=== PATIENT | male | born 1950 | race Caucasian/White ===

== ENCOUNTER → 2018-03-26 07:06 | Outpatient (CLI) | payer MEDICARE, MEDICAID, SELFPAY ==
[2018-03-26 08:03] LABS: Hematocrit 43.1 % (40-54); Hemoglobin 14.7 g/dl (13.0-16.5); Mean Corp Hgb Conc 34.1 g/gl (32-36); Mean Corpuscular Hgb 36.2 pg (27.0-32.0); Mean Corpuscular Volume 106.2 fL (80-94); Mean Platelet Vol. 8.4 fl (6.2-12.0); Platelet Count 319 K/mm3 (150-450); RBC Distribution Width SD 49.4 fl (35.1-43.9); Red Blood Count 4.06 M/mm3 (4.6-6.2); White Blood Count 6.9 K/mm3 (4.4-11.0)
[2018-03-26 08:15] LABS: Scan Indicated on CBC? Y/N NO
[2018-03-26 08:23] LABS: Amphetamine Urine VISTA NEGATIVE (<1000 ng/mL); Barbiturate Urine VISTA NEGATIVE (< 200 ng/mL); Benzodiazepine Urine VISTA NEGATIVE (< 200 ng/mL); Cocaine Urine VISTA NEGATIVE (< 300 ng/mL); Ecstacy Urine VISTA NEGATIVE (< 500 ng/mL); Methadone Urine VISTA NEGATIVE (< 300 ng/mL); PCP Urine VISTA NEGATIVE (< 25 ng/mL); THC Urine VISTA NEGATIVE (< 50 ng/mL); Vista UDS pH Range 6
[2018-03-26 08:41] LABS: AST(SGOT) 22 U/L (15-37); Alanine Aminotransfer ALT/SGPT 35 U/L (16-61); Albumin, Serum 3.4 g/dL (3.2-5.0); Alkaline Phosphatase 78 U/L (45-117); Anion Gap 5 (5-15); BUN 8 mg/dL (7-18); BUN/Creat Ratio 9.3 RATIO (10-20); Calcium,Total 9.1 mg/dL (8.5-10.1); Chloride 103 mmol/L (98-107); Creatinine, Serum 0.86 mg/dL (0.70-1.30); EST Glomerular Filtration Rate 94 mL/min (>60); Est Glom Filt Rate - Afr Amer 113 mL/min (>60); Globulin 3.4 g/dL (2.2-4.2); Glucose 77 mg/dL (74-106); PSA,Total - Annual Screen 1.46 ng/mL (0.00-4.00); Potassium 4.3 mmol/L (3.5-5.1); Protein, Total 6.8 g/dL (6.4-8.2); Sodium Level 138 mmol/L (136-145)
== END ==
PROVIDERS: Family Provider Family Medicine; PCP Family Medicine; Visit Provider Family Medicine
DX: R63.4 Abnormal weight loss (principal); D50.9 Iron deficiency anemia, unspecified; Z12.5 Encounter for screening for malignant neoplasm of prostate
CPT/HCPCS: 36415; 80053; 80307; 84153; 85027; G0103

== ENCOUNTER → 2018-03-27 06:56 | Outpatient (CLI) | payer MEDICARE, MEDICAID, SELFPAY ==
[2018-03-27 09:40] LABS: Folates, (Folic Acid) > 100.00 ng/mL (3.1-55.4)
[2018-03-28 08:26] LABS: Vitamin B12 911 pg/mL (211-911)
== END ==
PROVIDERS: Family Provider Family Medicine; PCP Family Medicine; Visit Provider Family Medicine
DX: D53.9 Nutritional anemia, unspecified (principal)
CPT/HCPCS: 36415; 82607; 82746

== ENCOUNTER → 2018-12-25 06:08 | Outpatient (CLI) | payer MEDICARE, MEDICAID, SELFPAY ==
[2018-09-30 08:34] VITALS: BMI 24.3
[2018-12-25 08:14] LABS: ALB/GLOB Ratio 1.2 RATIO (0.9-2.4); AST(SGOT) 28 U/L (15-37); Alanine Aminotransfer ALT/SGPT 32 U/L (16-61); Alkaline Phosphatase 72 U/L (45-117); Anion Gap 4 (5-15); BUN 14 mg/dL (7-18); Calcium,Total 9.5 mg/dL (8.5-10.1); Chloride 103 mmol/L (98-107); Cholesterol 149 mg/dL (200); Creatinine, Serum 1.17 mg/dL (0.70-1.30); EST Glomerular Filtration Rate 66 mL/min (>60); Est Glom Filt Rate - Afr Amer 80 mL/min (>60); Globulin 3.3 g/dL (2.2-4.2); Glucose 89 mg/dL (74-106); High Density Lipoprotein 70 mg/dL; Potassium 4.7 mmol/L (3.5-5.1); Protein, Total 7.3 g/dL (6.4-8.2); Sodium Level 135 mmol/L (136-145); Triglycerides 59 mg/dL; Very Low Density Lipoprotein 12 mg/dL (5-40)
== END ==
PROVIDERS: Family Provider Family Medicine; PCP Family Medicine; Referring Provider Family Medicine; Visit Provider Family Medicine
DX: E78.5 Hyperlipidemia, unspecified (principal); R63.4 Abnormal weight loss
CPT/HCPCS: 36415; 80053; 80061

== ENCOUNTER → 2019-05-05 06:57 | Outpatient (CLI) | payer MEDICARE, MEDICAID, SELFPAY ==
[2019-04-28 15:43] VITALS: BMI 23.7
--- NOTE | 2019-05-05 07:11 | RAD_ITS ---
STUDY: X-RAY CHEST REASON FOR EXAM: Male, 68 years old. Chest pain/pressure TECHNIQUE: PA and lateral views of the chest. COMPARISON: None. FINDINGS: There are interstitial fibrotic changes of the lungs. There is no demonstrated pleural abnormality. Normal size heart. Normal mediastinum and francisco. Normal visualized pulmonary arteries. Normal visualized aortic arch and descending thoracic aorta. There are diffuse degenerative changes of the visualized thoracic spine. Normal visualized ribs, clavicles, and shoulders. There is no demonstrated abnormality of the visualized soft tissue structures of the upper abdomen. RAD/Chest PA and Lateral IMPRESSION: Chronic interstitial changes, no superimposed acute pulmonary process Electronically Signed: Rick Gilliam MD at 7:37 EDT , Service support ,
[2019-05-05 08:39] LABS: Absolute Lymphocyte Count 1.63 X10^3/uL (0.83-4.51); Absolute Neutrophil Count 2.9 X10^3/uL (2.0-7.7); Basophil# 0.06 X10^3/uL; Basophil% 1.1 % (0-1); Eosinophil# 0.45 X10^3/uL; Eosinophils% 8.1 % (0-5); Hematocrit 48.3 % (40-54); Hemoglobin 16.3 g/dL (13.0-16.5); Lymphocyte # 1.63 X10^3/ul (4.0); Lymphocyte % 29.3 % (19-41); Mean Corp Hgb Conc 33.7 g/dL (32-36); Mean Corpuscular Hgb 35.4 pg (27.0-32.0); Mean Corpuscular Volume 104.8 fL (80-94); Monocyte# 0.53 X10^3/uL; Monocyte% 9.5 % (0-10); NRBC Flagged by Analyzer 0 % (0-5); Neutrophil # 2.87 X10^3/uL (2.7-7.7); Neutrophil % 51.6 % (47-70); Platelet Count 273 K/mm3 (150-450); RBC Distribution Width CV 13.5 % (11.6-14.6); RBC Distribution Width SD 52.7 fl (35.1-43.9); Red Blood Count 4.61 M/mm3 (4.6-6.2); White Blood Count 5.6 K/mm3 (4.4-11.0)
[2019-05-05 09:14] LABS: ALB/GLOB Ratio 1.1 RATIO (0.9-2.4); AST(SGOT) 29 U/L (15-37); Alanine Aminotransfer ALT/SGPT 29 U/L (16-61); Albumin, Serum 3.9 g/dL (3.2-5.0); Alkaline Phosphatase 75 U/L (45-117); Anion Gap 7 (5-15); BUN 8 mg/dL (7-18); BUN/Creat Ratio 8.6 RATIO (10-20); Calcium,Total 9.6 mg/dL (8.5-10.1); Chloride 101 mmol/L (98-107); Creatinine, Serum 0.93 mg/dL (0.70-1.30); EST Glomerular Filtration Rate 86 mL/min (>60); Est Glom Filt Rate - Afr Amer 104 mL/min (>60); Globulin 3.6 g/dL (2.2-4.2); Glucose 69 mg/dL (74-106); PSA,Total - Annual Screen 1.31 ng/mL (0.00-4.00); Potassium 4.3 mmol/L (3.5-5.1); Protein, Total 7.5 g/dL (6.4-8.2); Sodium Level 138 mmol/L (136-145)
== END ==
PROVIDERS: Family Provider Family Medicine; PCP Family Medicine; Referring Provider Family Medicine; Visit Provider Family Medicine
DX: R63.4 Abnormal weight loss (principal); Z12.5 Encounter for screening for malignant neoplasm of prostate
CPT/HCPCS: 36415; 71046; 80053; 84153; 85025; G0103

== ENCOUNTER → 2019-05-30 11:28 | Outpatient (CLI) | payer MEDICARE, MEDICAID, SELFPAY ==
[2019-04-28 15:43] VITALS: BMI 23.7
[2019-06-01 10:02] LABS: Vitamin B12 811 pg/mL (211-911)
== END ==
PROVIDERS: Family Provider Family Medicine; PCP Family Medicine; Referring Provider Family Medicine; Visit Provider Family Medicine
DX: R63.4 Abnormal weight loss (principal)
CPT/HCPCS: 36415; 82607; 82746

== ENCOUNTER → 2019-10-29 07:44 | Outpatient (CLI) | payer MEDICARE, MEDICAID, SELFPAY ==
[2019-10-21 12:58] VITALS: BMI 23.7
--- NOTE | 2019-10-29 07:45 | ECHOD_ITS ---
Reason For Study: murmur Procedure This was a 2D Doppler, Color Flow transthoracic echocardiogram. Technically difficult due to body habitus. No parasternal window- used subcostal,. Exam performed in department. Left Ventricle Normal LV size. The estimated ejection fraction is 55 %. Diastolic function is indeterminate. No regional wall motion abnormalities noted. Right Ventricle Normal RV size. Normal systolic function. Atria The left atrium is mildly enlarged. Normal right atrium. No doppler evidence for ASD. Mitral Valve There is no mitral valve stenosis. Mild (1+) mitral valve insufficiency. Tricuspid Valve There is no tricuspid stenosis. Trivial tricuspid valve insufficiency. Pulmonary artery systolic pressure is 35 mmHg. Aortic Valve Trisinus/trileaflet aortic valve. There is no aortic stenosis. Trivial aortic valve insufficiency. Pulmonic Valve There is no pulmonic valvular stenosis. No pulmonic valve insufficiency. Great Vessels Normal aortic root. Pericardium/Pleural No pericardial effusion. MMode/2D Measurements & Calculations LVIDd: 4.1 cm IVSd: 0.87 cm Ao root diam: 3.8 cm LVIDs: 2.9 cm LVPWd: 0.88 cm RVDd: 3.8 cm FS: 29.9 % LAV(MOD-bp): 72.3 ml LA A4 area: 21.4 cm2 LA dimension(2D): 4.8 cm LAV(MOD-bp) Indexed: 36.8 ml/m2 LAV(MOD-sp2): 84.4 ml LAV(MOD-sp4): 62.8 ml RA A4 area: 18.5 cm2 Time Measurements MV dec time: 0.20 sec Doppler Measurements & Calculations MV E max tom: 62.6 cm/sec Lat Peak E' Tom: 6.6 cm/sec Med Peak E' Tom: 6.1 cm/sec MV A max tom: 47.8 cm/sec E/E' lat: 9.4 E/E' med: 10.3 MV E/A: 1.3 Ao V2 max: 106.3 cm/sec LV V1 max: 88.8 cm/sec TR max tom: 266.8 cm/sec Ao max P.5 mmHg LV V1 max P.2 mmHg TR max P.8 mmHg Interpretation Summary The estimated ejection fraction is 55 %. Diastolic function is indeterminate. Mild (1+) mitral valve insufficiency. Trivial tricuspid valve insufficiency. Trivial aortic valve insufficiency. Ordering Physician: Miguel Stewart Referring Physician: Miguel Stewart Performed By: Helena Rajan, [place], RVT
== END ==
PROVIDERS: PCP Family Medicine; Referring Provider Family Medicine; Visit Provider Family Medicine
DX: R01.1 Cardiac murmur, unspecified (principal)
CPT/HCPCS: 93306

== ENCOUNTER → 2020-01-20 | Outpatient (CLI) | payer MEDICARE, MEDICAID, SELFPAY ==
[2020-01-20 09:24] VITALS: BMI 22.2
[2020-01-20 13:32] LABS: Absolute Lymphocyte Count 1.43 X10^3/uL (0.83-4.51); Absolute Neutrophil Count 3.1 X10^3/uL (2.0-7.7); Basophil# 0.07 X10^3/uL; Basophil% 1.3 % (0-1); Eosinophil# 0.49 X10^3/uL; Eosinophils% 8.8 % (0-5); Hematocrit 43.6 % (40-54); Hemoglobin 14.5 g/dL (13.0-16.5); Lymphocyte # 1.43 X10^3/ul (4.0); Lymphocyte % 25.6 % (19-41); Mean Corp Hgb Conc 33.3 g/dL (32-36); Mean Corpuscular Hgb 34.9 pg (27.0-32.0); Mean Corpuscular Volume 105.1 fL (80-94); Mean Platelet Vol. 9.3 fl (6.2-12.0); NRBC Flagged by Analyzer 0 % (0-5); Neutrophil # 3.08 X10^3/uL (2.7-7.7); Neutrophil % 55.1 % (47-70); Platelet Count 268 K/mm3 (150-450); RBC Distribution Width CV 13.5 % (11.6-14.6); RBC Distribution Width SD 52.5 fl (35.1-43.9); Red Blood Count 4.15 M/mm3 (4.6-6.2); White Blood Count 5.6 K/mm3 (4.4-11.0)
[2020-01-20 13:48] LABS: ALB/GLOB Ratio 1.2 RATIO (0.9-2.4); AST(SGOT) 26 U/L (15-37); Alanine Aminotransfer ALT/SGPT 29 U/L (16-61); Albumin, Serum 4.2 g/dL (3.2-5.0); Alkaline Phosphatase 65 U/L (45-117); Anion Gap 2 (5-15); BUN 7 mg/dL (7-18); BUN/Creat Ratio 7.7 RATIO (10-20); Calcium,Total 9.6 mg/dL (8.5-10.1); Chloride 105 mmol/L (98-107); Creatinine, Serum 0.91 mg/dL (0.70-1.30); EST Glomerular Filtration Rate 88 mL/min (>60); Est Glom Filt Rate - Afr Amer 107 mL/min (>60); Globulin 3.5 g/dL (2.2-4.2); Glucose 83 mg/dL (74-106); Potassium 4.1 mmol/L (3.5-5.1); Protein, Total 7.7 g/dL (6.4-8.2); Sodium Level 135 mmol/L (136-145); T4 Free Direct 0.85 ng/dL (0.76-1.46)
== END | disposition home or self-care (01) ==
LOC: LABSPEC 13:07
PROVIDERS: PCP Family Medicine; Referring Provider Family Medicine; Visit Provider Family Medicine
DX: R63.4 Abnormal weight loss (principal); R01.1 Cardiac murmur, unspecified
CPT/HCPCS: 80053; 84439; 85025

== ENCOUNTER → 2020-05-06 17:34 | Outpatient (CLI) | payer MEDICARE, MEDICAID, SELFPAY ==
[2020-04-13 11:37] VITALS: BMI 23.7
== END ==
PROVIDERS: PCP Family Medicine; Referring Provider Family Medicine; Visit Provider Family Medicine
DX: R05 Cough (principal)
CPT/HCPCS: 87635; 94799; U0003

== ENCOUNTER → 2020-06-08 06:42 | Outpatient (CLI) | payer MEDICARE, MEDICAID, SELFPAY ==
[2020-06-02 15:13] VITALS: BMI 23.7
--- NOTE | 2020-06-08 06:43 | CT_ITS ---
STUDY: CT ABDOMEN AND PELVIS WITH CONTRAST REASON FOR EXAM: Male, 70 years old patient with 100 lb weight loss in two years. Patient is a smoker. RADIATION DOSAGE (If Supplied By Facility): CTDIvol = ( 9.96 ) mGy, DLP = ( 685.67 ) mGycm TECHNIQUE: Transaxial images were obtained from the dome of the diaphragm to the symphysis pubis without oral contrast. 100 mL of IV Isovue-300 was administered. Sagittal and coronal images were reconstructed. Individualized dose optimization techniques were used for this CT. COMPARISON: CT of the abdomen and pelvis dated 01/04/2017. FINDINGS: There is left lower lobe airspace consolidation with air bronchograms. This could represent pneumonia. The right lung base appears to be clear. The visualized portions of the heart are within normal limits. There is hepatomegaly with diffuse hepatic enlargement. Liver measures approximately 21.3 cm in greatest dimension. Small lucency is visible within the right lobe liver that may represent small cyst measuring approximately 10 mm in size. The gallbladder is very distended measuring approximately 9.6 cm in greatest dimension. Normal spleen. Normal pancreas. Normal bilateral adrenal glands. Normal right kidney. There is a large nonobstructing calculus lower pole left kidney measuring approximately 2 cm in greatest dimension. There is no evidence for hydronephrosis, hydroureter or radiopaque ureteral calculus. Normal visualized stomach. There is no evidence for dilated bowel, ascites or pneumoperitoneum. Small bowel has a grossly normal appearance. Stool is visible throughout the colon with scattered diverticula. The appendix is visualized and appears normal. There is diffuse atherosclerotic calcification of the abdominal aorta and iliac arteries with elongation and tortuosity, but without a demonstrated aneurysm. There is venous distention of the inferior vena cava (IVC). Normal retroperitoneum. Normal urinary bladder. There is enlargement of the prostate gland. Normal abdominal wall. There are degenerative changes of both hips. There are multilevel degenerative changes of the lumbar spine with disc space narrowing at L1-2, L2-3 and L3-4. There is multilevel degenerative arthropathy of the lumbar spine. There is mild curvature of lumbar spine with convexity towards the right. CT/Abdomen/Pelvis WITH Contrast IMPRESSION: 1. Hepatomegaly. 2. Distended gallbladder. 3. Nonobstructing left-sided renal calculus. 4. Extensive aortic and iliac atherosclerotic calcifications. 5. Left basilar airspace consolidation could be secondary to pneumonia. Suggest follow-up evaluation after treatment to exclude neoplasia. Electronically Signed: Tomasa Segura MD at 9:04 EDT , Service support ,
--- NOTE | 2020-06-08 06:43 | CT_ITS ---
STUDY: CT CHEST WITH CONTRAST REASON FOR EXAM: Male, 70 years old patient with 100 lb weight loss in two years. Patient is a smoker. RADIATION DOSAGE (If Supplied By Facility): CTDIvol = ( 9.96 ) mGy, DLP = ( 685.67 ) mGycm TECHNIQUE: Transaxial imaging was performed following intravenous administration of 100 mL of Isovue-300. Multiplanar coronal and sagittal images were reformatted. Individualized dose optimization techniques were used for this CT. COMPARISON: None. FINDINGS: There is hyperinflation of the lungs consistent with chronic obstructive lung disease (COPD). There is left lower lobe airspace consolidation with air bronchograms. Curvilinear opacity is visible in the lingula and right middle lobe suggesting pulmonary fibrosis. Curvilinear opacity is visible in the right lower lobe. There is no demonstrated pleural abnormality. The heart is normal in size. There is mild pericardial thickening measuring approximately 6.3 mm. There are calcifications of the coronary arteries. Normal mediastinum. Normal hilar regions. Normal enhanced pulmonary arteries. There is atherosclerotic calcification of the aortic arch with tortuosity and elongation of the aortic arch and descending thoracic aorta. There are no demonstrated pulmonary emboli. There are multi-level degenerative changes of the thoracic spine. There is no demonstrated abnormality of the visualized upper abdomen. CT/Chest WITH Contrast IMPRESSION: 1. Left lower lobe airspace consolidation and atelectasis could be secondary to pneumonia. Suggest follow-up imaging after treatment to exclude neoplasia. 2. Coronary artery and aortic atherosclerotic calcification. 3. COPD. Electronically Signed: Tomasa Segura MD at 9:51 EDT , Service support ,
[2020-06-08 07:00] LABS: CREATININE FINGERSTICK < 0.6 mg/dL (0.70-1.30)
== END ==
PROVIDERS: PCP Family Medicine; Referring Provider Surgery; Visit Provider Surgery
DX: R19.7 Diarrhea, unspecified (principal); R63.4 Abnormal weight loss; F17.200 Nicotine dependence, unspecified, uncomplicated
CPT/HCPCS: 71260; 74177; Q9967

== ENCOUNTER → 2020-10-20 09:01 | Outpatient (CLI) | payer MEDICARE, MEDICAID, SELFPAY ==
[2020-10-20 08:29] VITALS: BMI 23.8
[2020-10-20 10:03] LABS: Absolute Lymphocyte Count 1.28 X10^3/uL (0.83-4.51); Absolute Neutrophil Count 3.4 X10^3/uL (2.0-7.7); Basophil# 0.05 X10^3/uL; Basophil% 0.9 % (0-1); Eosinophil# 0.52 X10^3/uL; Eosinophils% 9.1 % (0-5); Hematocrit 46.6 % (40-54); Hemoglobin 15.2 g/dL (13.0-16.5); Lymphocyte # 1.28 X10^3/ul (4.0); Lymphocyte % 22.5 % (19-41); Mean Corp Hgb Conc 32.6 g/dL (32-36); Mean Corpuscular Hgb 34.1 pg (27.0-32.0); Mean Corpuscular Volume 104.5 fL (80-94); Mean Platelet Vol. 9.3 fl (6.2-12.0); Monocyte# 0.47 X10^3/uL; Monocyte% 8.3 % (0-10); NRBC Flagged by Analyzer 0 % (0-5); Neutrophil # 3.35 X10^3/uL (2.7-7.7); Neutrophil % 58.8 % (47-70); Platelet Count 242 K/mm3 (150-450); RBC Distribution Width SD 50.4 fl (35.1-43.9); Red Blood Count 4.46 M/mm3 (4.6-6.2); White Blood Count 5.7 K/mm3 (4.4-11.0)
[2020-10-20 10:43] LABS: Vitamin B12 1322 pg/mL (211-911)
== END ==
PROVIDERS: PCP Family Medicine; Referring Provider Family Medicine; Visit Provider Family Medicine
DX: R01.1 Cardiac murmur, unspecified (principal); D53.9 Nutritional anemia, unspecified
CPT/HCPCS: 36415; 82607; 82746; 85025

== ENCOUNTER → 2020-11-01 15:36 | Outpatient (CLI) | payer MEDICARE, MEDICAID, SELFPAY ==
[2020-10-20 08:29] VITALS: BMI 23.8
[2020-11-01 16:37] LABS: Platelet Count 221 K/mm3 (150-450); RET-HE 39.9 pg (30-35); Reticulocyte Count 1.22 % (0.5-1.5)
== END ==
PROVIDERS: PCP Family Medicine; Referring Provider Family Medicine; Visit Provider Family Medicine
DX: R01.1 Cardiac murmur, unspecified (principal)
CPT/HCPCS: 85045

== ENCOUNTER 2020-12-23 10:11 | Outpatient (RCR) | payer MEDICARE, SELFPAY ==
[2020-10-20 08:29] VITALS: BMI 23.8
[2020-12-23] MEDS: COVID-19 VACC, MRNA(PFIZER)/PF 30 MCG/0.3 ML SYRINGE IM (16:03)
[2021-01-13] MEDS: COVID-19 VACC, MRNA(PFIZER)/PF 30 MCG/0.3 ML SYRINGE IM (15:48)
== END 2021-03-21 23:59 ==
LOC: IMMUN 10:11
PROVIDERS: PCP Family Medicine; Visit Provider Family Medicine
DX: Z23 Encounter for immunization (principal)
CPT/HCPCS: 0001A; 0002A; 91300

== ENCOUNTER → 2021-04-04 11:57 | Outpatient (CLI) | payer MEDICARE, MEDICAID, SELFPAY ==
[2021-04-04 11:34] VITALS: BMI 23.6
[2021-04-04 14:52] LABS: Absolute Neutrophil Count 3.2 X10^3/uL (2.0-7.7); Basophil# 0.05 X10^3/uL; Basophil% 0.9 % (0-1); Eosinophil# 0.48 X10^3/uL; Eosinophils% 8.6 % (0-5); Hematocrit 42.4 % (40-54); Hemoglobin 13.9 g/dL (13.0-16.5); Lymphocyte % 25.1 % (19-41); Mean Corp Hgb Conc 32.8 g/dL (32-36); Mean Corpuscular Hgb 35.5 pg (27.0-32.0); Mean Corpuscular Volume 108.2 fL (80-94); Mean Platelet Vol. 9.1 fl (6.2-12.0); Monocyte# 0.46 X10^3/uL; Monocyte% 8.3 % (0-10); NRBC Flagged by Analyzer 0 % (0-5); Neutrophil # 3.16 X10^3/uL (2.7-7.7); Neutrophil % 56.7 % (47-70); Platelet Count 250 K/mm3 (150-450); RBC Distribution Width CV 12.8 % (11.6-14.6); RBC Distribution Width SD 51.2 fl (35.1-43.9); Red Blood Count 3.92 M/mm3 (4.6-6.2); White Blood Count 5.6 K/mm3 (4.4-11.0)
[2021-04-04 15:10] LABS: ALB/GLOB Ratio 1.1 RATIO (0.9-2.4); AST(SGOT) 29 U/L (15-37); Alanine Aminotransfer ALT/SGPT 34 U/L (16-61); Albumin, Serum 3.9 g/dL (3.2-5.0); Alkaline Phosphatase 73 U/L (45-117); Anion Gap 3 (5-15); BUN 11 mg/dL (7-18); BUN/Creat Ratio 11.6 RATIO (10-20); Calcium,Total 9.4 mg/dL (8.5-10.1); Chloride 102 mmol/L (98-107); Creatinine, Serum 0.94 mg/dL (0.70-1.30); EST Glomerular Filtration Rate 84 mL/min (>60); Est Glom Filt Rate - Afr Amer 101 mL/min (>60); Globulin 3.6 g/dL (2.2-4.2); Glucose 82 mg/dL (74-106); Potassium 4.3 mmol/L (3.5-5.1); Protein, Total 7.5 g/dL (6.4-8.2); Sodium Level 138 mmol/L (136-145)
== END ==
PROVIDERS: PCP Family Medicine; Referring Provider Family Medicine; Visit Provider Family Medicine
DX: G89.28 Other chronic postprocedural pain (principal); R63.4 Abnormal weight loss; I10 Essential (primary) hypertension
CPT/HCPCS: 36415; 80053; 85025

== ENCOUNTER 2021-04-23 14:02 | Emergency (ER) | payer MEDICARE, MEDICAID, SELFPAY ==
[2021-04-04 11:34] VITALS: BMI 23.6
[2021-04-23 14:03] VITALS: BP 101/57; PULSE 68; RESP 14; TEMP 36.4; O2SAT 96; BMI 22.4
--- NOTE | 2021-04-23 14:13 | CT_ITS ---
We are attempting to reach an attending provider to discuss findings. An addendum with communication details will be sent when the communication is complete. EXAM: CT CERVICAL SPINE WITHOUT INTRAVENOUS CONTRAST : 1950 CLINICAL INDICATION: fall, injury TECHNIQUE: Helically acquired images were obtained of the cervical spine without intravenous contrast. 2D reformatted images were reviewed. This CT exam was performed using one or more of the following dose reduction techniques: automated exposure control, adjustment of the mA and/or kV according to patient size, and/or use of iterative reconstruction technique. This report was created using [employer] report [employer] technology. COMPARISON: None. FINDINGS: VERTEBRAE: There are anterior osteophytes seen off of C5 and C6. No fracture. No traumatic subluxation. No discrete lytic or blastic abnormality. Normal alignment. Normal craniocervical junction and cervicothoracic junction. DISCS/SPINAL CANAL/NEURAL FORAMINA: There is disc space narrowing at C5 - 6 and C6-7. There is left bony neural foraminal narrowing at C5-6. SOFT TISSUES: There is a lucent line through the anterior osteophyte on the inferior aspect of C6 which may represent a tiny fracture. No other fractures are identified. This is best seen on series 602 images 30 and 31. There is no obvious edema or soft tissue swelling present. No prevertebral soft tissue swelling. LYMPH NODES: Unremarkable. No cervical adenopathy. LUNG APICES: Unremarkable as visualized. Clear. CT/Spine Cervical without Contras IMPRESSION: 1. Questionable fracture through a tiny anterior osteophyte off the anterior inferior aspect of C6. No other acute abnormalities are identified. 2. Multilevel degenerative change with disc space narrowing and bony neural foraminal narrowing. Individualized dose optimization techniques were used for this CT. at 1541 Reported and signed by: Braden Vasquez MD Electronically Signed: Braden Vasquez MD at 15:39 EDT Tel , Service support ,
--- NOTE | 2021-04-23 14:14 | EDS_ITS ---
HPI History of Present Illness Chief Complaint: Fall Detail of Chief Complaint: Patient presents with a fall that occurred 4 days ago. Informant: patient Narrative Narrative: Patient presents with complaint of neck pain after a fall 4 days ago. Patient states he was carrying a 2 x 10 into the garage when he lost his balance and fell backwards. Patient caught himself on his elbows and did not strike his head but he felt a crunch in his neck. He is complaining of neck pain with certain movements. Patient states he always has some paresthesias in his arms. At times he will will drop things in his hands. Patient denies any other injuries. When asked why he did not come in sooner he states that he had things to do. [facility] Medical History (Updated 04/23/21 @ 16:[address] Festus Jenkins DO) Arthritis Chronic pain GERD (gastroesophageal reflux disease) History of pneumonia History of stomach ulcers Hyperlipidemia Hypertension IBS (irritable bowel syndrome) Home Medications glucosamine-chondroitin 250 mg-200 mg tablet 2 tab PO QPC 12/27/17 [History Last Taken Unknown] ibuprofen 200 mg capsule 800 mg PO Q6H PRN PRN 12/27/17 [History Last Taken Unknown] multivitamin 1 tab PO QAM 12/27/17 [History Last Taken Unknown] azelastine 137 mcg (0.1 %) nasal spray aerosol 1 spray INTRANASAL BID #30 ml 07/15/19 [Rx Last Taken Unknown] pantoprazole 40 mg tablet,delayed release 40 mg PO QAM #90 tab 11/01/20 [Rx Last Taken Unknown] atenolol 50 mg tablet See Rx Instructions .ROUTE .COMPLEX #90 tablet 12/14/20 [Rx Last Taken Unknown] trazodone 100 mg tablet 100 mg PO QHS PRN #90 tab 12/14/20 [Rx Last Taken Unknown] albuterol sulfate 90 mcg/actuation aerosol inhaler 2 puff INHALATION Q6H #8.5 g 01/18/21 [Rx Last Taken Unknown] venlafaxine 150 mg capsule,extended release 24 hr 150 mg PO QHS #90 cap 02/15/21 [Rx Last Taken Unknown] cyclobenzaprine 5 mg tablet 5 mg PO TID #90 tab 03/07/21 [Rx Last Taken Unknown] pravastatin 40 mg tablet 40 mg PO QHS #90 tab 03/07/21 [Rx Last Taken Unknown] gabapentin 600 mg tablet 600 mg PO TID #90 tab 03/16/21 [Rx Last Taken Unknown] diphenoxylate-atropine [Lomotil] 1 tab PO TID PRN PRN 04/23/21 [History Last Taken Unknown] hydrocodone-acetaminophen 1 tab PO 4X/DAY 04/23/21 [History Last Taken Unknown] Allergy/AdvReac Type Severity Reaction Status Date / Time aspirin Allergy Severe bleeding Verified 04/23/21 14:05 Family History Mother Myocardial infarction, Onset Age: 49 Depression Father Hypertension CVA (cerebral vascular accident), Onset Age: 49 Sister Thyroid disorder Uncle ulcers Surgical History History of endoscopy Social History (Updated 04/04/21 @ 11:34 by Preethi Rizvi) Smoking Status: Unknown if ever smoked alcohol intake: never substance use type: does not use what type of physical activity do you participate in: other details: yard work, house work ROS ROS ED Constitutional Constitutional ED: Reports systems reviewed and no addt'l complaints, except as documented; Denies body ache(s), change in weight or chills Eyes Eyes: Denies acute decrease in peripheral vision, change in vision, double vision or loss of vision ENT ENT ED: Reports none; Denies ear pain, lip swelling, loss taste/smell, neck pain, otalgia or sore throat Cardiovascular Cardiovascular: Reports none; Denies abdominal pain, chest pain with activity, leg edema, lightheadedness, palpitations, rapid heart rate or syncope Respiratory/Chest Respiratory/Chest: Reports none; Denies change in mental status, dry cough, dyspnea, hemoptysis, shortness of breath at rest or shortness of breath with exertion Gastrointestinal Gastrointestinal: Reports none; Denies abdominal pain, change in stool character, diarrhea, hematemesis, hematochezia, melena, rectal bleeding or vomiting Genitourinary Genitourinary ED: Reports none; Denies abdominal discomfort, anuria, dysuria, genital pain or polyuria Musculoskeletal Musculoskeletal: Reports none and neck pain; Denies arthralgias, back pain, difficulty walking, extremity pain, muscle weakness or myalgias Integumentary Reports none; Denies abscess or rash Neurologic Neurologic: Reports none; Denies abnormal gait, confusion, focal weakness, frequent falls, headache(s), loss of vision, numbness, paresthesias, radicular pain, vertigo or weakness Psychiatric Psychiatric: Reports systems reviewed and no addt'l complaints, except as documented and none; Denies behavioral changes, confusion, difficulty concentrating, hallucinations, suicidal ideation, tactile hallucinations or visual hallucinations Endocrine Endocrinology: Denies none, cold intolerance, excessive sweating, fatigue or heat intolerance Hematologic/Lymphatic Hematologic/Lymphatic: Reports none; Denies anemia, easy bleeding or easy bruising Allergic/Immunologic Allergic/Immunologic ED: Denies as per HPI, none, lip swelling, mouth swelling, throat swelling, tongue swelling or hives EXAM Physical Exam Const Vital Signs: 04/23/21 14:03 04/23/21 14:38 Temperature 97.5 F L Temperature Source Temporal Pulse Rate 68 Respiratory Rate 14 Respiratory Effort Normal Respiratory Depth Normal Respiratory Pattern Normal Blood Pressure 101/57 L Blood Pressure Mean 71 Pulse Ox 96 Oxygen Delivery Method Room Air Room Air Positive well nourished and well developed General Appearance ED: well developed and NAD HEENT Reports TM's clear and moist mucous membranes normocephalic and atraumatic; Negative for trauma or tenderness Tympanic Membrane ED: Yes TM's clear Eyes PERRL and EOMs intact bilaterally General Eye ED: Negative for pale conjunctiva or scleral icterus Neck no lymphadenopathy, supple and no JVD Neck Narrative: Evaluation of his neck reveals some diffuse C-spine tenderness on palpation. There is no bony step-offs noted. Patient has some discomfort with range of motion of his neck. General: tenderness Chest Wall inspection of chest normal and palpation of chest normal Chest: Negative for tenderness Resp normal respiratory effort and clear to auscultation bilaterally Effort and Inspection: Negative for respiratory distress or pain with movement Auscultation: Negative for rhonchi, wheezes or diminished lung sounds Cardio regular rate, regular rhythm, S1 normal heart sound, S2 normal heart sound and no murmurs Peripheral Pulses: pulses 2+ throughout GI normal to inspection, nondistended, normoactive bowel sounds, soft to palpation, non-tender, non-distended and no masses Back/Spine no CVA tenderness Back/Spine Narrative: Patient has some diffuse tenderness over the upper thoracic spine no tenderness over lumbar spine. Extremity normal to inspection General Extremety ED: Negative for edema General Extremity: Negative for edema Neuro oriented x3, CN's II-XII intact bilaterally, no sensory deficits noted and gait normal Sensorium / Orientation: awake, alert, oriented to person, oriented to place and oriented to time Motor Exam: strength 5/5 throughout and strength abnormal Psych mental status grossly normal Skin no rashes or lesions noted and no wounds MDM MDM MDM Narrative Medical decision making narrative: Radiology called and they noted on patient CT that he may have a small fracture line through an anterior osteophyte at the base of C6 without any other evidence of fracture or malalignment. I discussed case with Dr. Hall who asked that I place patient in a soft collar and have him follow-up with his office. At this point we are unable to obtain MRI to evaluate further for ligamentous injury. Patient's injury was 4 days ago and he appears to stable otherwise I feel he can have the MRI done as an outpatient. Radiography Diagnostic Testing: Radiology Impression Cervical Spine CT 04/23/21 14:13 IMPRESSION: 1. Questionable fracture through a tiny anterior osteophyte off the anterior inferior aspect of C6. No other acute abnormalities are identified. 2. Multilevel degenerative change with disc space narrowing and bony neural foraminal narrowing. Individualized dose optimization techniques were used for this CT. at 1541 Reported and signed by: Braden Vasquez MD Electronically Signed: Braden Vasquez MD at 15:39 EDT Tel , Service support , ADDENDUM: 04/23/21 161 IMPRESSION: 1. Questionable fracture through a tiny anterior osteophyte off the anterior inferior aspect of C6. No other acute abnormalities are identified. 2. Multilevel degenerative change with disc space narrowing and bony neural foraminal narrowing. Individualized dose optimization techniques were used for this CT. at 1541 Reported and signed by: Braden Vasquez MD N.B. : The above Results were Read Back by Braden Vasquez MD to Festus Jenkins MD, and understanding confirmed on 04/23/2021 16:04:49 (ET). Electronically Signed: Braden Vasquez MD at 15:39 EDT Tel , Service support , Thoracic Spine X-Ray 04/23/21 14:27 IMPRESSION: No acute osseous abnormalities. There is multilevel degenerative change with disc space narrowing. at 1512 Reported and signed by: Braden Vasquez MD Electronically Signed: Braden Vasquez MD at 15:11 EDT Tel , Service support , Discharge Plan Triage Chief Complaint: Fall ED Provider: Festus Jenkins Dx/Rx/DC Orders Clinical Impression: C6 cervical fracture, Neck strain Instructions: Fx Neck Spine, ED Neck Sprain or Strain Prescriptions: No Action ibuprofen [Motrin IB] 200 mg capsule 800 mg PO Q6H PRN PRN (Reason: Pain) RF: 0 multivitamin tablet 1 tab PO QAM RF: 0 glucosamine-chondroitin 250 mg-200 mg tablet 250-200 mg tablet 2 tab PO QPC RF: 0 azelastine 137 mcg (0.1 %) aerosol,spray 1 spray INTRANASAL BID Qty: 30 RF: 2 Ventolin HFA 90 mcg/actuation HFA aerosol inhaler 2 puff INHALATION Q6H Qty: 8.5 RF: 2 cyclobenzaprine 5 mg tablet 5 mg PO TID Qty: 90 RF: 1 pravastatin 40 mg tablet 40 mg PO QHS Qty: 90 RF: 1 hydrocodone-acetaminophen 10-325 mg tablet 1 tab PO 4X/DAY RF: 0 diphenoxylate-atropine [Lomotil] 2.5-0.025 mg tablet 1 tab PO TID PRN PRN (Reason: Diarrhea) RF: 0 pantoprazole 40 mg tablet,delayed release (DR/EC) 40 mg PO QAM Qty: 90 RF: 1 atenolol 50 mg tablet See Rx Instructions .ROUTE .COMPLEX Qty: 90 RF: 1 trazodone 100 mg tablet 100 mg PO QHS PRN (Reason: insomnia) Qty: 90 RF: 1 venlafaxine 150 mg capsule,extended release 24hr 150 mg PO QHS Qty: 90 RF: 1 gabapentin 600 mg tablet 600 mg PO TID Qty: 90 RF: 1 Primary Care Provider: Miguel Stewart Referrals: Miguel Stewart DO [Primary Care Provider] - Slick Hall DO [STAFF PHYSICIAN] - 1-2 Days if not improving Disposition Disposition: Home, Self Care
--- NOTE | 2021-04-23 14:27 | RAD_ITS ---
EXAM: XR THORACIC SPINE, 3 VIEWS : 1950 CLINICAL INDICATION: fall TECHNIQUE: Frontal, lateral and swimmer's views of the thoracic spine. This report was created using [email or web address] report Everstring technology. COMPARISON: None. FINDINGS: VERTEBRAE: Unremarkable. Preserved vertebral body height. No fracture. No spondylolisthesis. Preservation of the normal thoracic kyphosis. No significant facet arthropathy. DISC SPACES: There is multilevel degenerative change with disc space narrowing. RAD/Thoracic Spine 3 Views IMPRESSION: No acute osseous abnormalities. There is multilevel degenerative change with disc space narrowing. at 1512 Reported and signed by: Braden Vasquez MD Electronically Signed: Braden Vasquez MD at 15:11 EDT Tel , Service support ,
[2021-04-23 17:17] VITALS: BP 106/75; PULSE 80; RESP 15; O2SAT 98
--- NOTE | 2021-04-23 17:18 | ED.RN ---
no soft cervical collar in er. supervisor order takers called and hospital is out. [facility] called and has soft collars in stock. pharmacy is holding one in patients name. ingrid diamond rn [id number]
== END 2021-04-23 17:20 | disposition home or self-care (01) ==
PROVIDERS: Emergency Provider Emergency Medicine; PCP Family Medicine
DX: S12.500A Unspecified displaced fracture of sixth cervical vertebra, initial encounter for closed fracture (principal); S16.1XXA Strain of muscle, fascia and tendon at neck level, initial encounter; I10 Essential (primary) hypertension; E78.5 Hyperlipidemia, unspecified; Z87.11 Personal history of peptic ulcer disease; Z79.899 Other long term (current) drug therapy; W01.0XXA Fall on same level from slipping, tripping and stumbling without subsequent striking against object, initial encounter
CPT/HCPCS: 72072; 72125; 99282

== ENCOUNTER 2021-05-05 12:16 | Emergency (ER) | payer MEDICARE, MEDICAID, SELFPAY ==
[2021-04-25 13:07] VITALS: BMI 22.4
[2021-05-05 12:17] VITALS: BP 126/81; PULSE 75; RESP 16; TEMP 36.5; O2SAT 94; BMI 20.7
--- NOTE | 2021-05-05 12:41 | CT_ITS ---
STUDY: CT BRAIN WITHOUT CONTRAST REASON FOR EXAM: Male, 70 years old. Fall, trauma RADIATION DOSAGE (If Supplied By Facility): CTDIvol = ( 38.43 ) mGy, DLP = ( 727.10 ) mGycm TECHNIQUE: Transaxial CT imaging of the brain was performed without administration of intravenous contrast material. Individualized dose optimization techniques were used for this CT. COMPARISON: No relevant priors. FINDINGS: Normal soft tissue structures. Normal calvarium. There is mild cerebral atrophy with widening of the extra-axial spaces and ventricular dilatation. There are areas of decreased attenuation within the white matter tracts of the supratentorial brain, consistent with microvascular disease changes. Normal basal ganglia and thalami. Normal brainstem. Normal cerebellum. There is no intracranial hemorrhage. There are no findings of an acute ischemic infarction. Atherosclerotic calcification of the cavernous portions of the internal carotid arteries bilaterally. Tiny mucosal polyp in the left sphenoid sinus. CT/Brain/Head without Contrast IMPRESSION: Chronic involutional changes of the brain. Electronically Signed: Giovany Roth MD at 13:51 EDT , Service support ,
--- NOTE | 2021-05-05 12:42 | EKG12_ITS ---
Test Reason : NAUSEA Blood Pressure : / mmHG Vent. Rate : 084 BPM Atrial Rate : 084 BPM P-R Int : 136 ms QRS Dur : 098 ms QT Int : 398 ms P-R-T Axes : 073 084 074 degrees QTc Int : 470 ms Sinus rhythm with occasional Premature ventricular complexes Otherwise normal ECG Confirmed by COURTNEY WILCOX, JULIET ([id number]), marketing editor MIMI RAPHAEL ([id number]) on 05/09/2021 10:17:15 AM Referred By: PL Confirmed By:JULIET VALDEZ MD
--- NOTE | 2021-05-05 12:42 | RAD_ITS ---
STUDY: X-RAY CHEST REASON FOR EXAM: Male, 70 years old. Cough -- EDIT TO TrevorVMICKEY DR. LISTERMAN TECHNIQUE: Single AP portable view of the chest. COMPARISON: Comparison is made with prior examination dated 05/05/2019. FINDINGS: There is hyperinflation of the lungs consistent with chronic obstructive lung disease (COPD). There now is evidence of an infiltrate or mass lesion in the posterior medial segment of the left lower lobe measuring 6.6 cm by 4.3 cm. Stable focal scarring at the left lung base. There is no demonstrated pleural abnormality. Normal size heart. Normal mediastinum and francisco. Normal visualized pulmonary arteries. There is atherosclerotic calcification of the aortic arch with tortuosity. There are diffuse degenerative changes of the visualized thoracic spine. Normal visualized ribs, clavicles, and shoulders. There is no demonstrated abnormality of the visualized soft tissue structures of the upper abdomen. RAD/Chest 1 View IMPRESSION: New 6.6 cm x 4.3 cm infiltrate versus mass in the posterior medial segment of the left lower lobe. Hyperinflation and stable scarring at the left lung base. Electronically Signed: Giovany Roth MD at 14:01 EDT , Service support ,
[2021-05-05] MEDS: Ondansetron 4 MG/2 ML Vial IV (12:59)
[2021-05-05] MEDS: 0.9% Normal Saline 1,000 ML 1000 ML IV (12:59)
[2021-05-05 13:16] LABS: ALB/GLOB Ratio 0.6 RATIO (0.9-2.4); AST(SGOT) 60 U/L (15-37); Alanine Aminotransfer ALT/SGPT 39 U/L (16-61); Albumin, Serum 2.8 g/dL (3.2-5.0); Alkaline Phosphatase 115 U/L (45-117); Anion Gap 10 (5-15); BUN 15 mg/dL (7-18); BUN/Creat Ratio 19.1 RATIO (10-20); Calcium,Total 9.5 mg/dL (8.5-10.1); Chloride 97 mmol/L (98-107); Creatinine, Serum 0.78 mg/dL (0.70-1.30); EST Glomerular Filtration Rate 104 mL/min (>60); Est Glom Filt Rate - Afr Amer 125 mL/min (>60); Estimated Creatinine Clearance 65.53 ml/min; Globulin 4.7 g/dL (2.2-4.2); Glucose 124 mg/dL (74-106); Potassium 3.9 mmol/L (3.5-5.1); Protein, Total 7.5 g/dL (6.4-8.2); Sodium Level 136 mmol/L (136-145); Troponin-I HS 15.1 pg/mL (3.0-78.5)
--- NOTE | 2021-05-05 13:32 | EDS_ITS ---
HPI History of Present Illness Chief Complaint: Nausea/Vomiting Informant: patient and spouse/S.O. Narrative Narrative: Much of the history comes from the patient's significant other. He does not seem to be interested in being here. He evidently started having just a feeling of decreased energy on Saturday. Maybe like he had the flu. Saturday and he had a bit of a fever. He stayed in bed more. He was not eating and drinking as much. There was no nausea and vomiting. This morning he is feeling better. He has no more fevers. He had dry heaves once but it is when they were driving and they think it was just related to motion. He is not naus eated now. He has never had cough or headache or urinary symptoms. No abdominal pain. No diarrhea. No rash. He has had an occasional cough but not significant and he has no sputum production and no dyspnea. On Saturday he was feeling weak and he fell in the kitchen. He just states he was not feeling well. He then bandaged the arm. He went to bed. It is not hurting him at all now. He evidently did hit his head slightly or hit his glasses. But there was no loss consciousness. He has had no recurrence of this. He has not fallen again. He was able to eat this morning but only had a few bites of eggs. He is drinking fluids. He is starting to feel better. His significant other who has been with him for 20 years is concerned that he is dehydrated and that was the main reason for bringing him in. [facility] Medical History (Updated 05/05/21 @ 14:[address] Magnus Palmer MD) Arthritis Chronic pain GERD (gastroesophageal reflux disease) History of pneumonia History of stomach ulcers Hyperlipidemia Hypertension IBS (irritable bowel syndrome) Home Medications glucosamine-chondroitin 250 mg-200 mg tablet 2 tab PO QPC 12/27/17 [History Last Taken Unknown] ibuprofen 200 mg capsule 800 mg PO Q6H PRN PRN 12/27/17 [History Last Taken Unknown] multivitamin 1 tab PO QAM 12/27/17 [History Last Taken Unknown] trazodone 100 mg tablet 100 mg PO QHS PRN #90 tab 12/14/20 [Rx Last Taken Unknown] albuterol sulfate 90 mcg/actuation aerosol inhaler 2 puff INHALATION Q6H #8.5 g 01/18/21 [Rx Last Taken Unknown] venlafaxine 150 mg capsule,extended release 24 hr 150 mg PO QHS #90 cap 02/15/21 [Rx Last Taken Unknown] cyclobenzaprine 5 mg tablet 5 mg PO TID #90 tab 03/07/21 [Rx Last Taken Unknown] pravastatin 40 mg tablet 40 mg PO QHS #90 tab 03/07/21 [Rx Last Taken Unknown] gabapentin 600 mg tablet 600 mg PO TID #90 tab 03/16/21 [Rx Last Taken Unknown] hydrocodone-acetaminophen 1 tab PO 4X/DAY 04/23/21 [History Last Taken Unknown] pantoprazole 40 mg tablet,delayed release 40 mg PO QAM #90 tab 04/26/21 [Rx Last Taken Unknown] atenolol 40 mg PO DAILY 05/05/21 [History Last Taken Unknown] levofloxacin 500 mg PO DAILY #10 tab 05/05/21 [Rx Last Taken Unknown] Allergy/AdvReac Type Severity Reaction Status Date / Time aspirin Allergy Severe bleeding Verified 05/05/21 12:17 Family History Mother Myocardial infarction, Onset Age: 49 Depression Father Hypertension CVA (cerebral vascular accident), Onset Age: 49 Sister Thyroid disorder Uncle ulcers Surgical History History of endoscopy Social History Smoking Status: Current every day smoker tobacco type: cigarettes alcohol intake: never substance use type: does not use what type of physical activity do you participate in: other details: yard work, house work ROS ROS ED Constitutional Constitutional ED: Reports fever(s) and subjective Eyes Eyes: Denies change in vision ENT ENT ED: Denies ear pain, rhinorrhea or sore throat Cardiovascular Cardiovascular: Denies chest pain or palpitations Respiratory/Chest Respiratory/Chest: Reports cough; Denies dyspnea, dyspnea on exertion or sputum Gastrointestinal Gastrointestinal: Reports nausea; Denies abdominal pain, diarrhea, melena or vomiting Genitourinary Genitourinary ED: Denies dysuria or hematuria Musculoskeletal Musculoskeletal: Reports myalgias and other Details: Slight myalgias and Saturday but better today. Integumentary Denies rash Neurologic Neurologic: Denies headache(s) or weakness Psychiatric Psychiatric: Reports depression Allergic/Immunologic Allergic/Immunologic ED: Denies urticaria EXAM Physical Exam Const Vital Signs: 05/05/21 12:17 Temperature 97.7 F L Temperature Source Temporal Pulse Rate 75 Respiratory Rate 16 Blood Pressure 126/81 H Blood Pressure Mean 96 Pulse Ox 94 Oxygen Delivery Method Room Air Positive well nourished and well developed; Negative for unkempt General Appearance ED: well developed and NAD; Negative for unkempt or cyanotic HEENT HEENT Narrative: There is a very small contusion in the medial right eyebrow and slight left forehead. Negative for tenderness Eyes PERRL and EOMs intact bilaterally Neck no lymphadenopathy and supple General: Negative for tenderness Chest Wall inspection of chest normal Resp normal respiratory effort and clear to auscultation bilaterally Auscultation: Negative for rales, rhonchi or wheezes Cardio regular rate GI normal to inspection, nondistended, normoactive bowel sounds and non-tender Palpation: soft Back/Spine no CVA tenderness Extremity Extremity Narrative: Abrasions around the right elbow area. Healing well. No pain with motion or palpation. General Extremety ED: Negative for edema General Extremity: Negative for edema Neuro oriented x3 Sensorium / Orientation: alert Psych mental status grossly normal Appearance: Negative for unkempt Skin Trauma: abrasion MDM MDM MDM Narrative Medical decision making narrative: Blood work does show a high white count at 17.3. Minimal anemia. Electrolytes show no marked abnormalities. Urine did not show sign of infection. Troponin was negative. CT of his head showed no acute process. X-ray was suspicious for left base either infiltrate or mass. I talk with the patient and his significant other. He has had recent fevers slight cough and decreased appetite. This along with his x-ray and white count points to pneumonia. I think it is appropriate that he gets rechecked. We need to make sure that this area in the chest improves with his symptoms or it may need further studies or CAT scan. He would like to go home. He is not at all dyspneic. We will start him on Levaquin. We discussed reasons to return that include vomiting, shortness of breath, pain or other concerns. Lab Data Labs: Laboratory Results - last 24 hr 05/05/21 05/05/21 05/05/21 12:30 13:50 14:15 WBC 17.3 H RBC 3.57 L Hgb 12.5 L Hct 36.9 L MCV 103.4 H MCH 35.0 H MCHC 33.9 RDW Std Deviation 46.6 H RDW Coeff of Issa 12.2 Plt Count 498 H MPV 8.5 Immature Gran % (Auto) 0.600 Neut % (Auto) 89.3 H Lymph % (Auto) 4.1 L [place] % (Auto) 5.6 Eos % (Auto) 0.1 Baso % (Auto) 0.3 Absolute Neuts (auto) 15.5 H Absolute Lymphs (auto) 0.71 L Nucleated RBC % 0 Sodium 136 Potassium 3.9 Chloride 97 L Carbon Dioxide 29.0 Anion Gap 10 BUN 15 Creatinine 0.78 Estim Creat Clear Calc 65.53 Est GFR (MDRD) Af Amer 125 Est GFR (MDRD) Non-Af 104 BUN/Creatinine Ratio 19.1 Glucose 124 H Calcium 9.5 Total Bilirubin 0.60 AST 60 H ALT 39 Alkaline Phosphatase 115 Troponin I High Sens 15.1 Total Protein 7.5 Albumin 2.8 L Globulin 4.7 H Albumin/Globulin Ratio 0.6 L Urine Color Yellow Urine Clarity Sl. Cloudy Urine pH 6.0 Ur Specific [place] 1.010 Urine Protein 30 H Urine Glucose (UA) Normal Urine Ketones 50 H Urine Occult Blood 150 H Urine Nitrite Negative Urine Bilirubin 1 H Urine Urobilinogen 1 H Ur Leukocyte Esterase 25 H Urine RBC 10-25 SEEN Urine WBC 0-5 SEEN Ur Squamous Epith Cells 0-5 SEEN Urine Bacteria 1+ Hyaline Casts 0-5 SEEN Urine Mucus 0 SEEN Radiography Diagnostic Testing: Radiology Impression Brain CT 05/05/21 12:41 IMPRESSION: Chronic involutional changes of the brain. Electronically Signed: Giovany Roth MD at 13:51 EDT , Service support , Chest X-Ray 05/05/21 12:42 IMPRESSION: New 6.6 cm x 4.3 cm infiltrate versus mass in the posterior medial segment of the left lower lobe. Hyperinflation and stable scarring at the left lung base. Electronically Signed: Giovany Roth MD at 14:01 EDT , Service support , Discharge Plan Triage Chief Complaint: Nausea/Vomiting ED Provider: Magnus Palmer Dx/Rx/DC Orders Clinical Impression: Community acquired pneumonia Instructions: Treating Pneumonia Prescriptions: New levofloxacin 500 mg tablet 500 mg PO DAILY Qty: 10 RF: 0 No Action ibuprofen [Motrin IB] 200 mg capsule 800 mg PO Q6H PRN PRN (Reason: Pain) RF: 0 multivitamin tablet 1 tab PO QAM RF: 0 glucosamine-chondroitin 250 mg-200 mg tablet 250-200 mg tablet 2 tab PO QPC RF: 0 Ventolin HFA 90 mcg/actuation HFA aerosol inhaler 2 puff INHALATION Q6H Qty: 8.5 RF: 2 cyclobenzaprine 5 mg tablet 5 mg PO TID Qty: 90 RF: 1 pravastatin 40 mg tablet 40 mg PO QHS Qty: 90 RF: 1 hydrocodone-acetaminophen 10-325 mg tablet 1 tab PO 4X/DAY RF: 0 atenolol 50 mg tablet 40 mg PO DAILY RF: 0 trazodone 100 mg tablet 100 mg PO QHS PRN (Reason: insomnia) Qty: 90 RF: 1 venlafaxine 150 mg capsule,extended release 24hr 150 mg PO QHS Qty: 90 RF: 1 gabapentin 600 mg tablet 600 mg PO TID Qty: 90 RF: 1 pantoprazole 40 mg tablet,delayed release (DR/EC) 40 mg PO QAM Qty: 90 RF: 1 Primary Care Provider: Miguel Stewart Referrals: Miguel Stewart, [Primary Care Provider] - 3-5 Days Disposition Disposition: Home, Self Care
[2021-05-05 13:58] LABS: Absolute Lymphocyte Count 0.71 X10^3/uL (0.83-4.51); Absolute Neutrophil Count 15.5 X10^3/uL (2.0-7.7); Basophil# 0.05 X10^3/uL; Basophil% 0.3 % (0-1); Eosinophil# 0.02 X10^3/uL; Eosinophils% 0.1 % (0-5); Hematocrit 36.9 % (40-54); Hemoglobin 12.5 g/dL (13.0-16.5); Lymphocyte # 0.71 X10^3/ul (0.83-4.51); Lymphocyte % 4.1 % (19-41); Mean Corp Hgb Conc 33.9 g/dL (32-36); Mean Corpuscular Volume 103.4 fL (80-94); Mean Platelet Vol. 8.5 fl (6.2-12.0); Monocyte# 0.97 X10^3/uL; Monocyte% 5.6 % (0-10); NRBC Flagged by Analyzer 0 % (0-5); Neutrophil # 15.45 X10^3/uL (2.7-7.7); Neutrophil % 89.3 % (47-70); Platelet Count 498 K/mm3 (150-450); RBC Distribution Width CV 12.2 % (11.6-14.6); RBC Distribution Width SD 46.6 fl (35.1-43.9); Red Blood Count 3.57 M/mm3 (4.6-6.2); White Blood Count 17.3 K/mm3 (4.4-11.0)
[2021-05-05 14:21] LABS: Mucous, Urine 0 SEEN /hpf (<or=2+)
[2021-05-05 14:26] LABS: Color, Urine Yellow (Yellow); Glucose, Dipstick Normal (Normal); Ketone-Dipstick 50 mg/dl (Negative); Leukocyte Esterase-Dipstick 25 /ul (Negative); Nitrite-Dipstick Negative (Negative); Occult Blood-Urine 150 /ul (Negative); Protein-Dipstick 30 mg/dl (Negative); Urine Clarity Sl. Cloudy (Clear); Urine Urobilinogen 1 mg/dl (Normal)
[2021-05-05 14:27] LABS: Urine Bilirubin Dipstick 1 mg/dL (Negative)
[2021-05-05 14:34] LABS: Bacteria 1+ /hpf (None Seen); Red Blood Cells-Urine 10-25 SEEN /hpf (0-5); Squamous Epithelial Cells - UA 0-5 SEEN /hpf (0-5); White Blood Cells 0-5 SEEN /hpf (0-5)
[2021-05-05 14:35] LABS: Hyaline Cast 0-5 SEEN /lpf (0-5)
[2021-05-05] MEDS: levoFLOXacin 750 MG Tablet PO (14:56)
[2021-05-05 15:01] VITALS: BP 125/82; PULSE 71; RESP 18; O2SAT 98
== END 2021-05-05 15:02 | disposition home or self-care (01) ==
PROVIDERS: Emergency Provider Emergency Medicine; PCP Family Medicine
DX: J18.9 Pneumonia, unspecified organism (principal); I10 Essential (primary) hypertension; E78.5 Hyperlipidemia, unspecified; K21.9 Gastro-esophageal reflux disease without esophagitis; K58.9 Irritable bowel syndrome, unspecified; M19.90 Unspecified osteoarthritis, unspecified site; F17.210 Nicotine dependence, cigarettes, uncomplicated; Z79.899 Other long term (current) drug therapy; Z87.01 Personal history of pneumonia (recurrent)
CPT/HCPCS: 70450; 71045; 80048; 80053; 81001; 84484; 85025; 93005; 96361; 96374; 99283; J2405

== ENCOUNTER 2021-05-06 10:36 | Inpatient (IN) | payer MEDICARE, MEDICAID, SELFPAY ==
[2021-05-05 12:17] VITALS: BMI 20.7
[2021-05-06] VITALS (11 sets, daily range): BP systolic 107–137; BP diastolic 62–76; PULSE 68–124; RESP 12–27; TEMP 35.5–37.2; O2SAT 90–100; BMI 19.9; BMI 19.7
--- NOTE | 2021-05-06 11:04 | EKG12_ITS ---
Test Reason : Blood Pressure : / mmHG Vent. Rate : 105 BPM Atrial Rate : 105 BPM P-R Int : 134 ms QRS Dur : 098 ms QT Int : 362 ms P-R-T Axes : 074 086 081 degrees QTc Int : 478 ms Sinus tachycardia with frequent Premature ventricular complexes Otherwise normal ECG Confirmed by COURTNEY WILCOX, JULIET ([id number]), communications editor MIMI RAPHAEL ([id number]) on 05/09/2021 10:31:10 AM Referred By: Roxana Michel Confirmed By:JULIET VALDEZ MD
--- NOTE | 2021-05-06 11:06 | EDS_ITS ---
HPI History of Present Illness Chief Complaint: Shortness of Breath Informant: patient and spouse/S.O. Associated Symptoms cough and yellow sputum Chest Pain: Positive for None Narrative Narrative: Patient came back in today. I saw him yesterday. He states he is still not really short of breath. However he is coughing more. No hemoptysis. He states he is now vomiting and dry heaving and cannot eat or drink or get his meds in. He states he felt well when he left. His long-term girlfriend of 20 years is also now concerned because she feels he is confused today. He is asking frequently what I told him yesterday. He is not making as much sense as normal. She thinks he has had some more fevers. She is concerned because he cannot get his meds in. Patient states today he feels like he needs to be here. He wants to be in the hospital because he just does not feel well today. He is not having neck pain or physical trouble swallowing. It sounds like it induces nausea and vomiting now. He is not having abdominal pain. He had a few white cells in his urine yesterday but is not complaining of urine symptoms. He is complaining of some more coughing though. Nothing makes his symptoms better or worse. He is a long-term smoker. [facility] Medical History (Updated 05/06/21 @ 13:[address] Magnus Palmer MD) Arthritis Chronic pain GERD (gastroesophageal reflux disease) History of pneumonia History of stomach ulcers Hyperlipidemia Hypertension IBS (irritable bowel syndrome) Home Medications glucosamine-chondroitin 250 mg-200 mg tablet 2 tab PO QPC 12/27/17 [History Last Taken Unknown] ibuprofen 200 mg capsule 800 mg PO Q6H PRN PRN 12/27/17 [History Last Taken Unknown] multivitamin 1 tab PO QAM 12/27/17 [History Last Taken Unknown] trazodone 100 mg tablet 100 mg PO QHS PRN #90 tab 12/14/20 [Rx Last Taken Unknown] albuterol sulfate 90 mcg/actuation aerosol inhaler 2 puff INHALATION Q6H #8.5 g 01/18/21 [Rx Last Taken Unknown] venlafaxine 150 mg capsule,extended release 24 hr 150 mg PO QHS #90 cap 02/15/21 [Rx Last Taken Unknown] cyclobenzaprine 5 mg tablet 5 mg PO TID #90 tab 03/07/21 [Rx Last Taken Unknown] pravastatin 40 mg tablet 40 mg PO QHS #90 tab 03/07/21 [Rx Last Taken Unknown] gabapentin 600 mg tablet 600 mg PO TID #90 tab 03/16/21 [Rx Last Taken Unknown] hydrocodone-acetaminophen 1 tab PO 4X/DAY 04/23/21 [History Last Taken Unknown] pantoprazole 40 mg tablet,delayed release 40 mg PO QAM #90 tab 04/26/21 [Rx Last Taken Unknown] atenolol 40 mg PO DAILY 05/05/21 [History Last Taken Unknown] levofloxacin 500 mg PO DAILY #10 tab 05/05/21 [Rx Last Taken Unknown] Allergy/AdvReac Type Severity Reaction Status Date / Time aspirin Allergy Severe bleeding Verified 05/06/21 10:37 Family History Mother Myocardial infarction, Onset Age: 49 Depression Father Hypertension CVA (cerebral vascular accident), Onset Age: 49 Sister Thyroid disorder Uncle ulcers Surgical History History of endoscopy Social History Smoking Status: Current every day smoker tobacco type: cigarettes alcohol intake: never substance use type: does not use what type of physical activity do you participate in: other details: yard work, house work ROS ROS ED Constitutional Constitutional ED: Reports chills and fever(s) Eyes Eyes: Denies blurry vision ENT ENT ED: Denies rhinorrhea or sore throat Cardiovascular Cardiovascular: Denies chest pain Respiratory/Chest Respiratory/Chest: Reports cough and sputum; Denies dyspnea or dyspnea on exertion Gastrointestinal Gastrointestinal: Reports nausea and vomiting; Denies abdominal pain or diarrhea Genitourinary Genitourinary ED: Denies dysuria Musculoskeletal Musculoskeletal: Denies myalgias Integumentary Denies rash Neurologic Neurologic: Reports other Details: Patient is acting a bit more confused today. ; Denies headache(s) Endocrine Endocrinology: Denies polydipsia or polyuria Hematologic/Lymphatic Hematologic/Lymphatic: Denies easy bleeding or easy bruising EXAM Physical Exam Const Vital Signs: 05/06/21 10:38 05/06/21 10:52 05/06/21 11:00 Temperature 95.9 F L Temperature Source Temporal Pulse Rate 98 101 H Respiratory Rate 20 H 20 H Respiratory Effort Short of Breath Labored Respiratory Pattern Tachypnea Blood Pressure 107/76 Blood Pressure Mean 86 Pulse Ox 90 97 Oxygen Delivery Method Room Air Nasal Cannula Nasal Cannula Oxygen Flow Rate (L/min) 2 2 05/06/21 11:54 Temperature 98.4 F Temperature Source Oral Pulse Rate 103 H Respiratory Rate 18 Respiratory Effort Respiratory Pattern Blood Pressure 115/74 Blood Pressure Mean 87 Pulse Ox 94 Oxygen Delivery Method Nasal Cannula Oxygen Flow Rate (L/min) 2 Positive well nourished HEENT Negative for tenderness Eyes EOMs intact bilaterally Neck supple and no JVD Resp normal respiratory effort Resp Narrative: Patient had a few coarse breath sounds and slight cough. However with deep breaths he cleared more. No wheezing is heard. Auscultation: rhonchi Cardio regular rate and regular rhythm GI non-tender, non-distended and no masses Auscultation: normoactive bowel sounds Palpation: soft Back/Spine normal to inspection Extremity normal to inspection General Extremety ED: Negative for edema or tenderness General Extremity: Negative for edema Neuro Neuro Narrative: Patient is oriented to person place and time. However it is much harder getting him answer questions directly. He seems a little bit confused today that is different than he was yesterday. Sensorium / Orientation: alert Psych mental status grossly normal Skin Rashes: no rashes MDM MDM MDM Narrative Medical decision making narrative: Patient still has a high white count. His lactate is negative. Electrolytes show no marked abnormalities. I am waiting on a repeat UA. Yesterday had some white cells in the urine but he had no symptoms. This is 1 the reasons to give Levaquin as it should provide good urinary coverage to. His x-ray is actually being read is more normal today than yesterday. However, he states he is coughing more and bringing up a little bit of sputum now. I think with his symptoms, his white count, his nausea vomiting and inability to take meds, his recurrent visit he does need to come in the hospital. This is really failure of outpatient therapy. I discussed the case with Dr. Michel and the patient will be admitted. Lab Data Attestation: I reviewed the patient's lab results. Labs: Laboratory Results - last 24 hr 05/06/21 05/06/21 05/06/21 10:50 10:50 11:17 WBC 17.3 H RBC 4.22 L Hgb 14.5 Hct 43.1 MCV 102.1 H MCH 34.4 H MCHC 33.6 RDW Std Deviation 46.1 H RDW Coeff of [place] 12.2 Plt Count 633 H MPV 8.7 Immature Gran % (Auto) 0.600 Neut % (Auto) 88.4 H Lymph % (Auto) 4.8 L [place] % (Auto) 5.8 Eos % (Auto) 0.2 Baso % (Auto) 0.2 Absolute Neuts (auto) 15.3 H Absolute Lymphs (auto) 0.83 Nucleated RBC % 0 Sodium 136 Potassium 3.5 Chloride 100 Carbon Dioxide 28.0 Anion Gap 8 BUN 12 Creatinine 0.66 L Estim Creat Clear Calc 64.83 Est GFR (MDRD) Af Amer 152 Est GFR (MDRD) Non-Af 126 BUN/Creatinine Ratio 18.1 Glucose 113 H Lactic Acid 1.7 Calcium 10.1 Radiography Diagnostic Testing: Radiology Impression Chest X-Ray 05/06/21 12:23 IMPRESSION: Normal x-ray examination of the chest. Electronically Signed: Severino Tineo MD at 13:19 EDT Tel , Service support , Discharge Plan Dx/Rx/DC Orders Clinical Impression: Community acquired pneumonia, Acute UTI, Failure of outpatient treatment, Leukocytosis Disposition Disposition: Acute Care [facility]
[2021-05-06 11:14] LABS: Absolute Lymphocyte Count 0.83 X10^3/uL (0.83-4.51); Absolute Neutrophil Count 15.3 X10^3/uL (2.0-7.7); Basophil# 0.03 X10^3/uL; Basophil% 0.2 % (0-1); Eosinophil# 0.03 X10^3/uL; Eosinophils% 0.2 % (0-5); Hematocrit 43.1 % (40-54); Hemoglobin 14.5 g/dL (13.0-16.5); Lymphocyte # 0.83 X10^3/ul (0.83-4.51); Lymphocyte % 4.8 % (19-41); Mean Corp Hgb Conc 33.6 g/dL (32-36); Mean Corpuscular Hgb 34.4 pg (27.0-32.0); Mean Corpuscular Volume 102.1 fL (80-94); Mean Platelet Vol. 8.7 fl (6.2-12.0); Monocyte% 5.8 % (0-10); NRBC Flagged by Analyzer 0 % (0-5); Neutrophil # 15.28 X10^3/uL (2.7-7.7); Neutrophil % 88.4 % (47-70); Platelet Count 633 K/mm3 (150-450); RBC Distribution Width CV 12.2 % (11.6-14.6); RBC Distribution Width SD 46.1 fl (35.1-43.9); Red Blood Count 4.22 M/mm3 (4.6-6.2); White Blood Count 17.3 K/mm3 (4.4-11.0)
[2021-05-06] MEDS: Ondansetron 4 MG/2 ML Vial IV (11:14)
[2021-05-06 11:50] LABS: Anion Gap 8 (5-15); BUN 12 mg/dL (7-18); BUN/Creat Ratio 18.1 RATIO (10-20); Calcium,Total 10.1 mg/dL (8.5-10.1); Chloride 100 mmol/L (98-107); Creatinine, Serum 0.66 mg/dL (0.70-1.30); EST Glomerular Filtration Rate 126 mL/min (>60); Est Glom Filt Rate - Afr Amer 152 mL/min (>60); Estimated Creatinine Clearance 64.83 ml/min; Glucose 113 mg/dL (74-106); Potassium 3.5 mmol/L (3.5-5.1); Sodium Level 136 mmol/L (136-145)
[2021-05-06 11:54] LABS: Lactic Acid 1.7 mmol/L (0.4-1.9)
--- NOTE | 2021-05-06 12:23 | RAD_ITS ---
STUDY: X-RAY CHEST REASON FOR EXAM: Male, 70 years old. SOB TECHNIQUE: Single AP portable view of the chest. COMPARISON: 05/05/2021 FINDINGS: The lungs are clear and expanded. There is no demonstrated pleural abnormality. Normal size heart. Normal mediastinum and [place]. Normal visualized pulmonary arteries. Normal visualized aortic arch and descending thoracic aorta. Normal visualized thoracic spine. Normal visualized ribs, clavicles, and shoulders. There is no demonstrated abnormality of the visualized soft tissue structures of the upper abdomen. RAD/Chest 1 View (Portable) IMPRESSION: Normal x-ray examination of the chest. Electronically Signed: Severino Tineo MD at 13:19 EDT Tel , Service support ,
--- NOTE | 2021-05-06 14:01 | PCM.HP.STD ---
Documented by User: Cj MASTERS 05/06/21 14:27 HPI - General General Date of Admission: 05/06/21 Date of Service: 05/06/21 Chief Complaint: Shortness of breath w/ productive non purulent cough. HPI Narrative PEDRO ALBRECHT, is a 70 M who presents presents to the ED at [facility] on 05/06/2021 with a chief complaint of shortness of breath and cough, to which patient thinks is pneumonia. Patient has a week long history of symptoms and presented to the emergency department yesterday where he wished to not be admitted and was returned home on levofloxacin 500 mg p.o. daily. Later on yesterday evening patient attempted to take his antibiotic pills and complained of difficulty swallowing and reported that he felt fevers chills and that his shortness of breath and cough had gotten worse since his ED visit. Patient's review of systems positive for shortness of breath with exertion and without, nonpurulent productive cough, fevers, chills and nausea. Insight into patient's history was limited as patient was unsure about a lot of prior medical history and medications. In the ED vital signs are significant for elevated heart rate at 103, other vital signs stable and patient is afebrile. CBC demonstrates an elevated white count at 17,000 with neutrophilic predominance. BMP is unremarkable. Chest x-ray appears unchanged from yesterday and demonstrates no acute cardiopulmonary process. Blood cultures were obtained in the ED. [facility] Medical History (Updated 05/06/21 @ 14:12 by Cj MASTERS) Arthritis Chronic pain Depression GERD (gastroesophageal reflux disease) History of pneumonia History of stomach ulcers Hyperlipidemia Hypertension IBS (irritable bowel syndrome) Neuropathy Home Medications glucosamine-chondroitin 250 mg-200 mg tablet 2 tab PO QPC 12/27/17 [History Last Taken Unknown] ibuprofen 200 mg capsule 800 mg PO Q6H PRN PRN 12/27/17 [History Last Taken Unknown] multivitamin 1 tab PO QAM 12/27/17 [History Last Taken Unknown] trazodone 100 mg tablet 100 mg PO QHS PRN #90 tab 12/14/20 [Rx Last Taken Unknown] albuterol sulfate 90 mcg/actuation aerosol inhaler 2 puff INHALATION Q6H #8.5 g 01/18/21 [Rx Last Taken Unknown] venlafaxine 150 mg capsule,extended release 24 hr 150 mg PO QHS #90 cap 02/15/21 [Rx Last Taken Unknown] cyclobenzaprine 5 mg tablet 5 mg PO TID #90 tab 03/07/21 [Rx Last Taken Unknown] pravastatin 40 mg tablet 40 mg PO QHS #90 tab 03/07/21 [Rx Last Taken Unknown] gabapentin 600 mg tablet 600 mg PO TID #90 tab 03/16/21 [Rx Last Taken Unknown] hydrocodone-acetaminophen 1 tab PO 4X/DAY 04/23/21 [History Last Taken Unknown] pantoprazole 40 mg tablet,delayed release 40 mg PO QAM #90 tab 04/26/21 [Rx Last Taken Unknown] atenolol 40 mg PO DAILY 05/05/21 [History Last Taken Unknown] levofloxacin 500 mg PO DAILY #10 tab 05/05/21 [Rx Last Taken Unknown] Allergy/AdvReac Type Severity Reaction Status Date / Time aspirin Allergy Severe bleeding Verified 05/06/21 10:37 Family History Mother Myocardial infarction, Onset Age: 49 Depression Father Hypertension CVA (cerebral vascular accident), Onset Age: 49 Sister Thyroid disorder Uncle ulcers Surgical History History of endoscopy no surgical history Social History Smoking Status: Current every day smoker tobacco type: cigarettes alcohol intake: never substance use type: does not use what type of physical activity do you participate in: other details: yard work, house work ROS Constitutional Constitutional: Reports chills, fatigue, fever(s), night sweats and weakness; Denies anorexia, change in weight, malaise or other Eyes Eyes: Denies blurry vision, change in eye color, change in vision, discharge from eye(s), double vision, erythema, eye pain, loss of vision or other ENT HEENT: Denies abnormal hearing, dysphagia, ear pain, epistaxis, headache(s), hearing loss, nasal congestion, nasal discharge, post nasal drip, sinus pressure, sore throat or other Cardiovascular Cardiovascular: Reports dyspnea on exertion; Denies chest pain, claudication, edema, lightheadedness, orthopnea, palpitations, paroxysmal nocturnal dyspnea, rapid heart rate, syncope or other Respiratory/Chest Respiratory/Chest: Reports cough, dyspnea, excessive phlegm production, productive cough, shortness of breath at rest and shortness of breath with exertion; Denies hemoptysis, wheezing or other Gastrointestinal Gastrointestinal: Denies abdominal pain, coffee ground emesis, constipation, diarrhea, dyspepsia, hematemesis, hematochezia, loose stools, melena, nausea, vomiting or other Genitourinary Genitourinary: Denies burning urination, difficulty urinating, dysuria, hematuria, nocturia, urinary frequency, urinary hesitancy, urinary incontinence, urinary urgency or other Musculoskeletal Musculoskeletal: Reports back pain and joint pain; Denies arthralgias, joint stiffness, joint swelling, myalgias, neck pain or other Neurologic Neurologic: Reports headache(s); Denies abnormal gait, abnormal speech, confusion, disequilibrium, dizziness, focal weakness, numbness, paresthesias, seizure-like activity, seizures, syncope, tingling, tremor(s) or other Psychiatric Psychiatric: Denies anxiety, depression, homicidal ideation, suicidal ideation or other Endocrine Endocrinology: Denies change in body appearance, cold intolerance, excessive sweating, heat intolerance, polydipsia, polyuria or other Hematologic/Lymphatic Hematologic/Lymphatic: Denies anemia, easy bleeding, easy bruising, lymphadenopathy or other Allergic/Immunologic Allergic/Immunologic: Denies rhinitis, hives, eczemia, asthma or other Vital Signs Vital Signs Vital Signs: 05/06/21 10:38 05/06/21 10:52 05/06/21 11:00 Temperature 95.9 F L Temperature Source Temporal Pulse Rate 98 101 H Respiratory Rate 20 H 20 H Respiratory Effort Short of Breath Labored Respiratory Pattern Tachypnea Blood Pressure 107/76 Blood Pressure Mean 86 Pulse Ox 90 97 Oxygen Delivery Method Room Air Nasal Cannula Nasal Cannula Oxygen Flow Rate (L/min) 2 2 05/06/21 11:54 Temperature 98.4 F Temperature Source Oral Pulse Rate 103 H Respiratory Rate 18 Respiratory Effort Respiratory Pattern Blood Pressure 115/74 Blood Pressure Mean 87 Pulse Ox 94 Oxygen Delivery Method Nasal Cannula Oxygen Flow Rate (L/min) 2 Weight Weight: 147 lb Body Mass Index (BMI) 19.9 Physical Exam Const alert and oriented x3 Constitutional Narrative: Although patient was alert and oriented, is unable to call certain details related to his medical history or events leading up to his illness. HEENT normocephalic, head/scalp atraumatic and hearing grossly normal bilaterally Eyes PERRL, EOMs intact bilaterally and conjunctivae normal Neck no lymphadenopathy, supple and no JVD Resp normal respiratory effort and normal air movement Effort and Inspection: tachypneic and labored Auscultation: wheezes and diminished lung sounds Cardio no murmurs and no JVD Rate: tachycardic GI normal to inspection, nondistended, normoactive bowel sounds, soft to palpation and non-tender Extremity normal to inspection, full ROM and no clubbing, cyanosis or edema Skin no rashes or lesions noted, no wounds, skin turgor normal and no jaundice Neuro CN's II-XII intact bilaterally Psych affect normal Mood & Affect: anxious Results Lab / Micro Data Result Diagrams: 05/06/21 10:50 05/06/21 10:50 Labs: Laboratory Results - last 24 hr 05/06/21 10:50: WBC 17.3 H, RBC 4.22 L, Hgb 14.5, Hct 43.1, MCV 102.1 H, MCH 34.4 H, MCHC 33.6, RDW Std Deviation 46.1 H, RDW Coeff of [place] 12.2, Plt Count 633 H, MPV 8.7, Immature Gran % (Auto) 0.600, Neut % (Auto) 88.4 H, Lymph % (Auto) 4.8 L, [place] % (Auto) 5.8, Eos % (Auto) 0.2, Baso % (Auto) 0.2, Absolute Neuts (auto) 15.3 H, Absolute Lymphs (auto) 0.83, Nucleated RBC % 0 05/06/21 10:50: Sodium 136, Potassium 3.5, Chloride 100, Carbon Dioxide 28.0, Anion Gap 8, BUN 12, Creatinine 0.66 L, Estim Creat Clear Calc 64.83, Est GFR (MDRD) Af Amer 152, Est GFR (MDRD) Non-Af 126, BUN/Creatinine Ratio 18.1, Glucose 113 H, Calcium 10.1 05/06/21 11:17: Lactic Acid 1.7 Radiology Impression Chest X-Ray 05/06/21 12:23 IMPRESSION: Normal x-ray examination of the chest. Electronically Signed: Severino Tineo MD at 13:19 EDT Tel , Service support , Assessment & Plan Assessment/Plan (1) Community acquired pneumonia: (2) Failure of outpatient treatment: (3) Depression: (4) Neuropathy: (5) Leukocytosis: (6) Hypertension: QUALIFIERS: Hypertension type: essential hypertension Qualified Code(s): I10 - Essential (primary) hypertension (7) Hyperlipidemia: QUALIFIERS: Hyperlipidemia type: mixed hyperlipidemia Qualified Code(s): E78.2 - Mixed hyperlipidemia (8) Arthritis: (9) GERD (gastroesophageal reflux disease): PLAN: Patient is a 7-year-old male presents to the ED at [facility] on 05/06/2021 with a chief complaint of shortness of breath and nonpurulent productive cough. Patient will be admitted to the hospital for management of community-acquired pneumonia due to failure of outpatient management. 1) SIRS secondary to Community acquired pneumonia Patient reports a 1 week history of nonpurulent productive cough and shortness of breath with exertion and without. Patient presented to the ED yesterday and was prescribed a course of levofloxacin, which the patient reported he had difficulty swallowing and could not take at home. Patient represents to the hospital with the same symptoms, however failed outpatient management. Patient met SIRS criteria due to elevated heart rate at 103 and a leukocytosis at 17,000. Blood cultures obtained in the ED and are pending. Chest x-ray demonstrates no acute cardiopulmonary process. Patient's history in regards to Covid is complicated as he reports is some providers that he has been vaccinated and others that he has not. Plan: Admit to [facility] for management, initiate levofloxacin 750 mg daily IV, scheduled duo nebs, albuterol as needed, guaifenesin ordered, strep pneumo and Legionella urinary antigens ordered, rapid Covid ordered, CBC and BMP in a.m, PT/OT eval ordered. 2) GERD Continue Protonix. 3) history of stomach ulcers Continue Protonix as above. 4) HTN BP is stable, continue atenolol. 5) hyperlipidemia Continue statin 6) Depression/insomnia Continue venlafaxine and trazodone for insomnia. DVT prophylaxis - Lovenox CODE STATUS:DNRCC-A, no intubation Patient seen by Cj Alberto PA-C, under the supervision of Dr. Michel. Documented by User: Dr. Roxana Michel MD 05/06/21 15:34 HPI - General General Date of Admission: 05/06/21 [facility] Medical History (Updated 05/06/21 @ 14:12 by Cj MASTERS) Arthritis Chronic pain Depression GERD (gastroesophageal reflux disease) History of pneumonia History of stomach ulcers Hyperlipidemia Hypertension IBS (irritable bowel syndrome) Neuropathy Home Medications glucosamine-chondroitin 250 mg-200 mg tablet 2 tab PO QPC 12/27/17 [History Last Taken Unknown] ibuprofen 200 mg capsule 800 mg PO Q6H PRN PRN 12/27/17 [History Last Taken Unknown] multivitamin 1 tab PO QAM 12/27/17 [History Last Taken Unknown] trazodone 100 mg tablet 100 mg PO QHS PRN #90 tab 12/14/20 [Rx Last Taken Unknown] albuterol sulfate 90 mcg/actuation aerosol inhaler 2 puff INHALATION Q6H #8.5 g 01/18/21 [Rx Last Taken Unknown] venlafaxine 150 mg capsule,extended release 24 hr 150 mg PO QHS #90 cap 02/15/21 [Rx Last Taken Unknown] cyclobenzaprine 5 mg tablet 5 mg PO TID #90 tab 03/07/21 [Rx Last Taken Unknown] pravastatin 40 mg tablet 40 mg PO QHS #90 tab 03/07/21 [Rx Last Taken Unknown] gabapentin 600 mg tablet 600 mg PO TID #90 tab 03/16/21 [Rx Last Taken Unknown] hydrocodone-acetaminophen 1 tab PO 4X/DAY 04/23/21 [History Last Taken Unknown] pantoprazole 40 mg tablet,delayed release 40 mg PO QAM #90 tab 04/26/21 [Rx Last Taken Unknown] atenolol 40 mg PO DAILY 05/05/21 [History Last Taken Unknown] levofloxacin 500 mg PO DAILY #10 tab 05/05/21 [Rx Last Taken Unknown] Allergy/AdvReac Type Severity Reaction Status Date / Time aspirin Allergy Severe bleeding Verified 05/06/21 10:37 Family History Mother Myocardial infarction, Onset Age: 49 Depression Father Hypertension CVA (cerebral vascular accident), Onset Age: 49 Sister Thyroid disorder Uncle ulcers Surgical History History of endoscopy Social History Smoking Status: Current every day smoker tobacco type: cigarettes alcohol intake: never substance use type: does not use what type of physical activity do you participate in: other details: yard work, house work Results Lab / Micro Data Result Diagrams: 05/06/21 10:50 05/06/21 10:50 Charges/Coding Addendum Addendum: This patient was seen in conjunction with SONAM Almonte. I have independently interviewed and examined the patient and reviewed pertinent historical, laboratory, and other data. Please refer to SONAM Almonte's note for his patient's presentation, findings, and recommendations. I have reviewed and his note and concur with his documentation 70-year-old male with past medical history of COPD, who comes in with feeling unwell, fever, chills and cough productive of whitish sputum. Patient was seen in the ED on 05/05/21 and sent home. He comes in with progressive weakness and confusion. Patient denies any diarrhea or nausea or vomiting. Physical Exam: Gen: Looks in some discomfort, not pale, not jaundiced, on 2 L of oxygen, alert oriented x3 CVS:HS I +II, regular, no murmurs RESP: Diminished at lung bases GI: BS present and normal, soft, nontender, no palpable organs EXT:No edema ASSESSMENT: 1. Debility 2. Altered mental status 3. Community-acquired pneumonia 4. Hypoxia 5. History of peptic ulcer 6. COPD, not in acute exacerbation Plan: Admit to MedSurg, IV fluids IV Levaquin Urine Legionella and strep coccal antigen Oxygen therapy, wean off Incentive spirometer Visit Charges Inpatient E&M: 41253 Init Hosp L3 Procedures Hospitalists Procedures: 06540 Advncd Care Plan 30 Min
[2021-05-06] MEDS: 0.9% Normal Saline 1,000 ML 125 ML IV (16:29)
[2021-05-06] MEDS: levoFLOXacin IV 750 MG/150 ML BAG 100 MG IV (16:31)
[2021-05-06] MEDS: guaiFENesin 1,200 MG Tablet 1200 MG PO ×2 (16:31→22:09)
[2021-05-06] MEDS: Atenolol 50 MG Tablet PO (16:31)
[2021-05-06] MEDS: HYDROcodone Bitartrate/Apap 5/325 Tablet PO ×2 (16:32→22:09)
[2021-05-06] MEDS: cycloBENZAPRine HCl 5 MG TABLET PO ×2 (16:35→22:09)
[2021-05-06 18:15] LABS: Mucous, Urine 0 SEEN /hpf (<or=2+)
[2021-05-06 18:21] LABS: Color, Urine Yellow (Yellow); Glucose, Dipstick Normal (Normal); Leukocyte Esterase-Dipstick 25 /ul (Negative); Nitrite-Dipstick Negative (Negative); Occult Blood-Urine 150 /ul (Negative); Protein-Dipstick 30 mg/dl (Negative); Specific Gravity, Urine 1.015 (1.002-1.030); Urine Bilirubin Dipstick Negative (Negative); Urine Clarity Clear (Clear); Urine Urobilinogen 1 mg/dl (Normal)
[2021-05-06 18:26] LABS: Ketone-Dipstick 150 mg/dl (Negative)
[2021-05-06 18:31] LABS: Bacteria RARE /hpf (None Seen); Red Blood Cells-Urine 5-10 SEEN /hpf (0-5); Squamous Epithelial Cells - UA 0-5 SEEN /hpf (0-5); White Blood Cells 0-5 SEEN /hpf (0-5)
[2021-05-06] MEDS: Ipratropium/Albuterol Sulfate 3 ML AMPUL.NEB INHALATION ×2 (19:13→22:27)
[2021-05-06] MEDS: Venlafaxine XR 150 MG Capsule PO (22:08)
[2021-05-06] MEDS: Pravastatin 40 MG Tablet PO (22:08)
[2021-05-07] VITALS (11 sets, daily range): BP systolic 126–137; BP diastolic 63–71; PULSE 61–83; RESP 16–20; TEMP 36.1–37.2; O2SAT 1–100
[2021-05-07] MEDS: 0.9% Normal Saline 1,000 ML 125 ML IV ×2 (00:57→08:00)
[2021-05-07] MEDS: cycloBENZAPRine HCl 5 MG TABLET PO ×3 (05:45→21:40)
[2021-05-07 06:28] LABS: Absolute Lymphocyte Count 0.95 X10^3/uL (0.83-4.51); Absolute Neutrophil Count 13.9 X10^3/uL (2.0-7.7); Basophil# 0.05 X10^3/uL; Basophil% 0.3 % (0-1); Eosinophil# 0.18 X10^3/uL; Eosinophils% 1.1 % (0-5); Hematocrit 34.9 % (40-54); Hemoglobin 11.9 g/dL (13.0-16.5); Lymphocyte # 0.95 X10^3/ul (0.83-4.51); Lymphocyte % 5.8 % (19-41); Mean Corp Hgb Conc 34.1 g/dL (32-36); Mean Corpuscular Hgb 34.9 pg (27.0-32.0); Mean Corpuscular Volume 102.3 fL (80-94); Mean Platelet Vol. 8.7 fl (6.2-12.0); Monocyte# 1.08 X10^3/uL; Monocyte% 6.6 % (0-10); NRBC Flagged by Analyzer 0 % (0-5); Neutrophil # 13.86 X10^3/uL (2.7-7.7); Neutrophil % 85.4 % (47-70); Platelet Count 512 K/mm3 (150-450); RBC Distribution Width CV 12.2 % (11.6-14.6); RBC Distribution Width SD 46.3 fl (35.1-43.9); Red Blood Count 3.41 M/mm3 (4.6-6.2); White Blood Count 16.3 K/mm3 (4.4-11.0)
[2021-05-07 07:00] LABS: ALB/GLOB Ratio 0.5 RATIO (0.9-2.4); AST(SGOT) 60 U/L (15-37); Alanine Aminotransfer ALT/SGPT 48 U/L (16-61); Albumin, Serum 2.3 g/dL (3.2-5.0); Alkaline Phosphatase 92 U/L (45-117); Anion Gap 6 (5-15); BUN 9 mg/dL (7-18); BUN/Creat Ratio 19.2 RATIO (10-20); Calcium,Total 9.1 mg/dL (8.5-10.1); Chloride 106 mmol/L (98-107); Creatinine, Serum 0.47 mg/dL (0.70-1.30); EST Glomerular Filtration Rate 188 mL/min (>60); Est Glom Filt Rate - Afr Amer 228 mL/min (>60); Estimated Creatinine Clearance 68.35 ml/min; Globulin 4.3 g/dL (2.2-4.2); Glucose 88 mg/dL (74-106); Potassium 3.6 mmol/L (3.5-5.1); Protein, Total 6.6 g/dL (6.4-8.2); Sodium Level 139 mmol/L (136-145)
[2021-05-07] MEDS: Ipratropium/Albuterol Sulfate 3 ML AMPUL.NEB INHALATION ×5 (07:24→23:13)
[2021-05-07] MEDS: Multivitamins,Therapeutic Tablet 1 TABLET PO (08:01)
--- NOTE | 2021-05-07 10:20 | PN.HOSP_ITS ---
Subjective Subjective Patient was seen and examined. He feels minimally improved. Stated that he felt achy. Denied any fever or chills. He remains on 1 L of oxygen. Objective Data Objective Data Vital Signs: Vital Signs Temp Pulse Resp BP Pulse Ox 97 F L 75 20 H 131/69 H 99 05/07/21 07:55 05/07/21 07:55 05/07/21 07:55 05/07/21 07:55 05/07/21 07:55 Oxygen Flow Rate (L/min) 1 Oxygen Delivery Method Nasal Cannula Weight: 70.3 kg Body Mass Index (BMI) 19.7 Intake & Output: Intake and Output for Last 24 Hours 05/05/21 05/06/21 05/07/21 23:59 23:59 23:59 Intake Total 352.08 / 352.08 1725.00 / 1725.00 Output Total 100 / 400 650 / 650 Balance 252.08 / -47.92 1075.00 / 1075.00 Lab / Micro Data Result Diagrams: 05/07/21 06:03 05/07/21 06:03 Labs: Laboratory Results - last 24 hr 05/06/21 10:50: WBC 17.3 H, RBC 4.22 L, Hgb 14.5, Hct 43.1, MCV 102.1 H, MCH 34.4 H, MCHC 33.6, RDW Std Deviation 46.1 H, RDW Coeff of Issa 12.2, Plt Count 633 H, MPV 8.7, Immature Gran % (Auto) 0.600, Neut % (Auto) 88.4 H, Lymph % (Auto) 4.8 L, [place] % (Auto) 5.8, Eos % (Auto) 0.2, Baso % (Auto) 0.2, Absolute Neuts (auto) 15.3 H, Absolute Lymphs (auto) 0.83, Nucleated RBC % 0 05/06/21 10:50: Sodium 136, Potassium 3.5, Chloride 100, Carbon Dioxide 28.0, Anion Gap 8, BUN 12, Creatinine 0.66 L, Estim Creat Clear Calc 64.83, Est GFR (MDRD) Af Amer 152, Est GFR (MDRD) Non-Af 126, BUN/Creatinine Ratio 18.1, Glucose 113 H, Calcium 10.1 05/06/21 11:17: Lactic Acid 1.7 05/06/21 18:00: Urine Color Yellow, Urine Clarity Clear, Urine pH 6.0, Ur Specific [place] 1.015, Urine Protein 30 H, Urine Glucose (UA) Normal, Urine Ketones 150 A*, Urine Occult Blood 150 H, Urine Nitrite Negative, Urine Bilirubin Negative, Urine Urobilinogen 1 H, Ur Leukocyte Esterase 25 H, Urine RBC 5-10 SEEN, Urine WBC 0-5 SEEN, Ur Squamous Epith Cells 0-5 SEEN, Urine Bacteria RARE, Urine Mucus 0 SEEN 05/07/21 06:03: WBC 16.3 H, RBC 3.41 L, Hgb 11.9 L, Hct 34.9 L, MCV 102.3 H, MCH 34.9 H, MCHC 34.1, RDW Std Deviation 46.3 H, RDW Coeff of Issa 12.2, Plt Count 512 H, MPV 8.7, Immature Gran % (Auto) 0.800, Neut % (Auto) 85.4 H, Lymph % (Auto) 5.8 L, [place] % (Auto) 6.6, Eos % (Auto) 1.1, Baso % (Auto) 0.3, Absolute Neuts (auto) 13.9 H, Absolute Lymphs (auto) 0.95, Nucleated RBC % 0 05/07/21 06:03: Sodium 139, Potassium 3.6, Chloride 106, Carbon Dioxide 27.0, Anion Gap 6, BUN 9, Creatinine 0.47 L, Estim Creat Clear Calc 68.35, Est GFR (MDRD) Af Amer 228, Est GFR (MDRD) Non-Af 188, BUN/Creatinine Ratio 19.2, Glucose 88, Calcium 9.1, Total Bilirubin 0.60, AST 60 H, ALT 48, Alkaline Phosphatase 92, Total Protein 6.6, Albumin 2.3 L, Globulin 4.3 H, Albumin/Globulin Ratio 0.5 L Micro: Microbiology 05/06/21 18:00 Urine, Clean Catch Legionella Antigen - Final 05/06/21 18:00 Urine, Clean Catch Streptococcus pneumoniae Antigen (M - Final 05/06/21 14:15 Mucosa - Nose SARS-CoV-2 Antigen (Rapid) - Final Radiography Diagnostic Testing: Radiology Impression Chest X-Ray 05/06/21 12:23 IMPRESSION: Normal x-ray examination of the chest. Electronically Signed: Severino Tineo MD at 13:19 EDT Tel , Service support , Physical Exam Narrative Physical Exam: Gen: Looks in some discomfort, not pale, not jaundiced, on 1 L of oxygen, alert oriented x3 CVS:HS I +II, regular, no murmurs RESP: Diminished at lung bases GI: BS present and normal, soft, nontender, no palpable organs EXT:No edema Assessment & Plan Assessment/Plan (1) Community acquired pneumonia: QUALIFIERS: Laterality: unspecified laterality Qualified Code(s): J18.9 - Pneumonia, unspecified organism (2) Debility: (3) Acute metabolic encephalopathy: PLAN: Summary: 70-year-old male with past medical history of COPD, who comes in feeling unwell, has fever, chills and cough productive of whitish sputum. Patient was seen in th e ED a day before and started on Levaquin. He was progressively feeling unwell and came back. 1. Debility, multifactorial, PT and OT to evaluate 2. Altered mental status, resolved, back to baseline 3. Community-acquired pneumonia, clinical suspicion persists, although admitting chest x-ray was negative for infiltrate Will repeat chest x-ray PA and lateral Continue on Levaquin for now 4. Hypoxia likely secondary to #3, on 1 to 2 L of oxygen, will wean off oxygen 5. 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 History of peptic ulcer, continue on PPI 6. Rest of chronic medical conditions including hypertension, hyperlipidemia, chronic pain, remained stable Charges/Coding Visit Charges Inpatient E&M: 79950 Subs Hosp L2
[2021-05-07] MEDS: levoFLOXacin IV 750 MG/150 ML BAG 100 MG IV (10:47)
[2021-05-07] MEDS: Enoxaparin 40 MG/0.4 ML Syringe SC (10:47)
[2021-05-07] MEDS: Pantoprazole Sodium 40 MG Tablet PO (10:48)
[2021-05-07] MEDS: Atenolol 50 MG Tablet PO (10:48)
[2021-05-07] MEDS: guaiFENesin 1,200 MG Tablet 1200 MG PO ×2 (10:48→21:40)
[2021-05-07] MEDS: HYDROcodone Bitartrate/Apap 5/325 Tablet PO ×4 (10:51→21:40)
--- NOTE | 2021-05-07 14:06 | RAD_ITS ---
STUDY: X-RAY CHEST REASON FOR EXAM: Male, 70 years old. Pneumonia TECHNIQUE: PA and lateral views of the chest. COMPARISON: 05/06/2021 FINDINGS: There is hyperinflation of the lungs consistent with chronic obstructive lung disease (COPD). Rounded consolidation of the medial left lower lobe is stable. There is no demonstrated pleural abnormality. Normal size heart. Normal mediastinum and francisco. Normal visualized pulmonary arteries. Normal visualized aortic arch and descending thoracic aorta. No acute bony process. There is no demonstrated abnormality of the visualized soft tissue structures of the upper abdomen. RAD/Chest PA and Lateral IMPRESSION: Stable rounded consolidation of the medial left lower lobe could represent pneumonia versus mass. Follow-up to ensure complete resolution given possibility of neoplasm. Electronically Signed: Paul Lloyd MD (Brooks) at 16:03 EDT , Service support ,
[2021-05-07] MEDS: 0.9% Saline Lock 10 ML Syringe IV (14:40)
[2021-05-07 15:03] LABS: Bacteria 0 SEEN /hpf (None Seen); Mucous, Urine 0 SEEN /hpf (<or=2+); White Blood Cells 0 SEEN /hpf (0-5)
[2021-05-07 15:08] LABS: Color, Urine Yellow (Yellow); Glucose, Dipstick Normal (Normal); Ketone-Dipstick 50 mg/dl (Negative); Leukocyte Esterase-Dipstick Negative /ul (Negative); Nitrite-Dipstick Negative (Negative); Occult Blood-Urine 25 /ul (Negative); Protein-Dipstick 30 mg/dl (Negative); Specific Gravity, Urine 1.015 (1.002-1.030); Urine Bilirubin Dipstick Negative (Negative); Urine Clarity Clear (Clear); Urine Urobilinogen Normal (Normal)
[2021-05-07 15:53] LABS: Red Blood Cells-Urine 0-5 SEEN /hpf (0-5); Squamous Epithelial Cells - UA 0-5 SEEN /hpf (0-5)
--- NOTE | 2021-05-07 17:15 | NURSING ---
1715 O2 off pox 96% on RA, no resp distress noted. tolerating dinner Ilia Mccoy RN
[2021-05-07] MEDS: 0.9% Normal Saline 1,000 ML 75 ML IV (20:17)
[2021-05-07] MEDS: Pravastatin 40 MG Tablet PO (21:40)
[2021-05-07] MEDS: Venlafaxine XR 150 MG Capsule PO (21:40)
[2021-05-08] VITALS (8 sets, daily range): BP systolic 108–147; BP diastolic 62–70; PULSE 61–78; RESP 16–18; TEMP 36.6–37.2; O2SAT 93–98
[2021-05-08] MEDS: cycloBENZAPRine HCl 5 MG TABLET PO ×3 (05:32→22:35)
[2021-05-08 05:42] LABS: Absolute Lymphocyte Count 0.96 X10^3/uL (0.83-4.51); Absolute Neutrophil Count 13.4 X10^3/uL (2.0-7.7); Basophil# 0.06 X10^3/uL; Basophil% 0.4 % (0-1); Eosinophils% 1.9 % (0-5); Hematocrit 35.4 % (40-54); Hemoglobin 11.7 g/dL (13.0-16.5); Lymphocyte # 0.96 X10^3/ul (0.83-4.51); Mean Corp Hgb Conc 33.1 g/dL (32-36); Mean Corpuscular Hgb 34.4 pg (27.0-32.0); Mean Corpuscular Volume 104.1 fL (80-94); Mean Platelet Vol. 8.8 fl (6.2-12.0); Monocyte# 1.18 X10^3/uL; Monocyte% 7.4 % (0-10); NRBC Flagged by Analyzer 0 % (0-5); Neutrophil # 13.38 X10^3/uL (2.7-7.7); Neutrophil % 83.3 % (47-70); Platelet Count 484 K/mm3 (150-450); RBC Distribution Width CV 12.4 % (11.6-14.6); RBC Distribution Width SD 47.8 fl (35.1-43.9)
[2021-05-08 06:07] LABS: ALB/GLOB Ratio 0.5 RATIO (0.9-2.4); AST(SGOT) 39 U/L (15-37); Alanine Aminotransfer ALT/SGPT 41 U/L (16-61); Albumin, Serum 2.2 g/dL (3.2-5.0); Alkaline Phosphatase 90 U/L (45-117); Anion Gap 5 (5-15); BUN 7 mg/dL (7-18); BUN/Creat Ratio 19.3 RATIO (10-20); Calcium,Total 8.8 mg/dL (8.5-10.1); Chloride 105 mmol/L (98-107); Creatinine, Serum 0.36 mg/dL (0.70-1.30); EST Glomerular Filtration Rate 252 mL/min (>60); Est Glom Filt Rate - Afr Amer 305 mL/min (>60); Estimated Creatinine Clearance 67.76 ml/min; Globulin 4.2 g/dL (2.2-4.2); Glucose 85 mg/dL (74-106); Potassium 3.7 mmol/L (3.5-5.1); Protein, Total 6.4 g/dL (6.4-8.2); Sodium Level 139 mmol/L (136-145)
--- NOTE | 2021-05-08 08:59 | CT_ITS ---
STUDY: CT CHEST WITHOUT CONTRAST REASON FOR EXAM: Male, 70 years old. lung mass RADIATION DOSAGE (If Supplied By Facility): CTDIvol = ( 8.68 ) mGy, DLP = ( 323.18 ) mGycm TECHNIQUE: Transaxial imaging was performed without the administration of intravenous contrast material. Multiplanar coronal and sagittal images were reformatted. Individualized dose optimization techniques were used for this CT. COMPARISON: 06/08/[address] FINDINGS: Masslike consolidation of the medial left lower lobe measures 6.4 x 6.8 cm on image 89 of series 2. There is abrupt bronchial cut off along the anterior margin of the consolidation best seen on image 211 of series 601. Small left pleural effusion. Mild atelectasis of the right lung base. The heart size is stable. Slight pericardial effusion/thickening. Coronary artery atherosclerosis. Mildly enlarged mediastinal lymph nodes without dominant gillian mass. No obvious hilar adenopathy although detection limited without IV contrast. Normal unenhanced pulmonary arteries. Normal aorta arch and descending thoracic aorta. There are multi-level degenerative changes of the thoracic spine. On the last image, there is a rounded soft tissue nodule left lateral to the aorta measuring 1.9 x 2.4 cm that could be arising from the left adrenal gland versus retroperitoneal adenopathy. CT/Chest without Contrast IMPRESSION: 1. Masslike consolidation of the medial left lower lobe with focal bronchial cut off. While this could represent infection/pneumonia, bronchial neoplasm is also considered more likely, considering the focal bronchial cut off/mass effect. Additional evaluation with PET scan versus biopsy recommended. Alternatively, short interval follow-up chest CT following adequate clinical therapy for pneumonia could also be performed. 2. Small left pleural effusion. 3. 1.9 x 2.4 cm nodule in the medial left upper abdomen, incompletely visualized but new since prior abdomen/pelvis CT of 06/08/2020. Could be arising from the left adrenal gland versus retroperitoneal adenopathy. Abdomen/pelvis CT with IV and oral contrast recommended. Electronically Signed: Paul Lloyd (Brooks) MD at 11:23 EDT , Service support ,
--- NOTE | 2021-05-08 09:02 | PN.HOSP_ITS ---
Subjective Subjective Patient is a 70-year-old gentleman with history of COPD presented with progressive generalized weakness fever chills and productive cough. Imaging studies obtained demonstrated medial left lower lobe could represent pneumonia versus mass Objective Data Objective Data Vital Signs: Vital Signs Temp Pulse Resp BP Pulse Ox 99 F 78 18 147/70 H 95 05/08/21 02:00 05/08/21 07:17 05/08/21 07:17 05/08/21 02:00 05/08/21 07:17 Oxygen Flow Rate (L/min) 100 Oxygen Delivery Method Room Air Weight: 69.7 kg Body Mass Index (BMI) 19.7 Intake & Output: Intake and Output for Last 24 Hours 05/06/21 05/07/21 05/08/21 23:59 23:59 23:59 Intake Total 352.08 / 352.08 3835.00 / 3835.00 Output Total 100 / 400 1350 / 1350 350 / 350 Balance 252.08 / -47.92 2485.00 / 2485.00 -350 / -350 Medical Nutrition Assessment Dietitian: Nutrition Therapy Diagnosis Start: 05/07/21 11:14 Freq: Status: Active Protocol: Document 05/07/21 11:34 BP (Rec: 05/07/21 11:34 BP [id number]) Nutrition Malnutrition Evidence of Malnutrition Exists Yes Malnutrition (severe): Chronic Evidenced By Suboptimal Energy Intake ( Severe),Weight Loss (Severe), Physical Changes (Severe) Clinical Problem Chronic Disease or Condition Related Malnutrition Etiology Severe malnutrition in the context chronic disease/ condition related to inadequate oral intake and unintentional wt loss Signs/Symptoms as evidenced by severe wt loss 9% x 2 months severe, severe temporal scooping/depression, severe orbital bone hollow look/depression, severe clavicle bone protrusion, pt consuming <25% of meals served , and suspect pt consuming </= 50% energy intake compared to estimated energy needs x >/= 1 year. Status Active Problem Recommendation Dietitian Recommendations/Changes Will liberalize diet to regular d/t s/s of malnutrition. Continue ensure pudding & ensure enlive with pt meals. Will provide soft/bite sized textures at pt meals as pt dentures fit loose, does not seemingly eat with them in. Lab / Micro Data Result Diagrams: 05/08/21 05:15 05/08/21 05:15 Labs: Laboratory Results - last 24 hr 05/07/21 14:45: Urine Color Yellow, Urine Clarity Clear, Urine pH 6.0, Ur Specific [place] 1.015, Urine Protein 30 H, Urine Glucose (UA) Normal, Urine Ketones 50 H, Urine Occult Blood 25 H, Urine Nitrite Negative, Urine Bilirubin Negative, Urine Urobilinogen Normal, Ur Leukocyte Esterase Negative, Urine RBC 0-5 SEEN, Urine WBC 0 SEEN, Ur Squamous Epith Cells 0-5 SEEN, Urine Bacteria 0 SEEN, Urine Mucus 0 SEEN 05/08/21 05:15: WBC 16.0 H, RBC 3.40 L, Hgb 11.7 L, Hct 35.4 L, MCV 104.1 H, MCH 34.4 H, MCHC 33.1, RDW Std Deviation 47.8 H, RDW Coeff of Issa 12.4, Plt Count 484 H, MPV 8.8, Immature Gran % (Auto) 1.000 H, Neut % (Auto) 83.3 H, Lymph % (Auto) 6.0 L, [place] % (Auto) 7.4, Eos % (Auto) 1.9, Baso % (Auto) 0.4, Absolute Neuts (auto) 13.4 H, Absolute Lymphs (auto) 0.96, Nucleated RBC % 0 05/08/21 05:15: Sodium 139, Potassium 3.7, Chloride 105, Carbon Dioxide 29.0, Anion Gap 5, BUN 7, Creatinine 0.36 L, Estim Creat Clear Calc 67.76, Est GFR (MDRD) Af Amer 305, Est GFR (MDRD) Non-Af 252, BUN/Creatinine Ratio 19.3, Glu cose 85, Calcium 8.8, Total Bilirubin 0.40, AST 39 H, ALT 41, Alkaline Phosph atase 90, Total Protein 6.4, Albumin 2.2 L, Globulin 4.2, Albumin/Globulin Ratio 0.5 L Micro: Microbiology 05/06/21 18:00 Urine, Clean Catch Urine Culture - Preliminary Culture exhibits no growth. 05/06/21 18:00 Urine, Clean Catch Legionella Antigen - Final 05/06/21 18:00 Urine, Clean Catch Streptococcus pneumoniae Antigen (M - Final 05/06/21 14:15 Mucosa - Nose SARS-CoV-2 Antigen (Rapid) - Final Radiography Diagnostic Testing: Radiology Impression Chest X-Ray 05/07/21 14:06 IMPRESSION: Stable rounded consolidation of the medial left lower lobe could represent pneumonia versus mass. Follow-up to ensure complete resolution given possibility of neoplasm. Electronically Signed: Paul Lloyd MD (Bro[place]) at 16:03 EDT , Service support , Physical Exam Narrative GENERAL: Frail looking HEENT: Atraumatic; EYES; Anicteric, Normal Conjunctiva NECK; supple, normal thyroid, RESPIRATORY: Diminished to auscultation CARDIOVASCULAR: Regular S1 S2, GI: soft, normoactive bowel sounds, : No Renal angle tenderness; EXTREMITIES: No edema, no clubbing, MUSCULOSKELETAL: muscle waisting NEURO: Awake; no lateralizing signs. SKIN: No Rash PSYCH; Flat affect Assessment & Plan Assessment/Plan (1) Community acquired pneumonia: QUALIFIERS: Laterality: unspecified laterality Qualified Code(s): J18.9 - Pneumonia, unspecified organism (2) Debility: (3) Acute metabolic encephalopathy: PLAN: Patient is a 70-year-old gentleman with history of COPD presented with progressive generalized weakness fever chills and productive cough. Imaging studies obtained demonstrated medial left lower lobe could represent pneumonia versus mass 1. Community-acquired pneumonia ?X-ray obtained demonstrated medial left lower lobe could represent pneumonia versus mass. Patient placed on Levaquin did order CT of the chest given the probability of a mass and with patient unexplained weight loss 2. Physical deconditioning - Requested for PT OT eval and social worker palliative care to assist with discharge planning 3. Unexplained weight loss ?Ordered CT of the chest for subsequent evaluation 4. History of peptic ulcer disease ?Patient is on PPI 5. Severe protein calorie malnutrition ?As evidenced by decreased energy level significant weight loss and low dietary intake. Consult placed to dietitian 6. Dyslipidemia -Patient is on statin therapy, continued at home dose 7. COPD ?Aerosol treatment as needed 8. Hypertension - Blood pressure controlled, home medications continued with dose adjustment as needed 9. DVT prophylaxis ?Enoxaparin Charges/Coding Visit Charges Inpatient E&M: 08430 Subs Hosp L2
[2021-05-08] MEDS: Atenolol 50 MG Tablet PO (09:42)
[2021-05-08] MEDS: guaiFENesin 1,200 MG Tablet 1200 MG PO ×2 (09:42→22:35)
[2021-05-08] MEDS: HYDROcodone Bitartrate/Apap 5/325 Tablet PO ×4 (09:42→22:35)
[2021-05-08] MEDS: Pantoprazole Sodium 40 MG Tablet PO (09:42)
[2021-05-08] MEDS: levoFLOXacin IV 750 MG/150 ML BAG 100 MG IV (09:42)
[2021-05-08] MEDS: Multivitamins,Therapeutic Tablet 1 TABLET PO (09:43)
[2021-05-08] MEDS: 0.9% Normal Saline 1,000 ML 75 ML IV ×2 (09:44→22:34)
--- NOTE | 2021-05-08 10:10 | CASEMGMT ---
DEZ LOVE Assessment: Face to Face with pt for initial transition planning/care coordination assessment. RN IVAN introduced self and role at [facility], pt voices understanding and consents to assessment. Pt is A/O x4 and answers all questions appropriately at this time. Pt sitting up in bed in no distress. Care providers, pharmacy, and demographics verified/updated. Admitting Dx: CAP PCP: Erika Stewart Specialists: Pt denies having any specialists. Preferred Pharmacy: [facility] Insurance: NABEEL, QUINTIN [employer] Prescription Benefit: yes LW/HPOA: Pt denies havng a LW/DPOA. LNOK: Judy Spears, sig other Living Arrangements: Pt lives with sig other in a two story house with a ramp through the garage to enter. Pt states he is I in ADL's and denies concerns at home. Transportation: Pt drives self and denies concerns with transportation. DME/HHC/SNF: Pt denies having DME in the home, hx of HHC or SNF stay. Pt states no concerns with going home at time of dc. Pt states no further concerns/needs. CM to follow. Advised pt to ask CM if any further question/concerns/needs arise, voices understanding. Pt Goal: Home Plan: Home with sig other support.
[2021-05-08] MEDS: Ipratropium/Albuterol Sulfate 3 ML AMPUL.NEB INHALATION ×3 (10:38→18:56)
[2021-05-08] MEDS: Enoxaparin 40 MG/0.4 ML Syringe SC (11:12)
[2021-05-08] MEDS: Pravastatin 40 MG Tablet PO (22:35)
[2021-05-08] MEDS: Venlafaxine XR 150 MG Capsule PO (22:36)
[2021-05-09 02:38] VITALS: BP 128/73; PULSE 64; RESP 16; TEMP 36.6; O2SAT 95
[2021-05-09] MEDS: cycloBENZAPRine HCl 5 MG TABLET PO ×3 (05:32→21:49)
[2021-05-09 06:18] LABS: Absolute Lymphocyte Count 1.03 X10^3/uL (0.83-4.51); Basophil# 0.08 X10^3/uL; Basophil% 0.6 % (0-1); Eosinophil# 0.48 X10^3/uL; Eosinophils% 3.5 % (0-5); Hematocrit 33.8 % (40-54); Hemoglobin 11.4 g/dL (13.0-16.5); Lymphocyte # 1.03 X10^3/ul (0.83-4.51); Lymphocyte % 7.5 % (19-41); Mean Corp Hgb Conc 33.7 g/dL (32-36); Mean Corpuscular Volume 103.7 fL (80-94); Mean Platelet Vol. 8.6 fl (6.2-12.0); Monocyte# 1.03 X10^3/uL; Monocyte% 7.5 % (0-10); NRBC Flagged by Analyzer 0 % (0-5); Neutrophil # 10.97 X10^3/uL (2.7-7.7); Neutrophil % 79.7 % (47-70); Platelet Count 477 K/mm3 (150-450); RBC Distribution Width CV 12.3 % (11.6-14.6); RBC Distribution Width SD 46.7 fl (35.1-43.9); Red Blood Count 3.26 M/mm3 (4.6-6.2); White Blood Count 13.8 K/mm3 (4.4-11.0)
[2021-05-09] MEDS: Ipratropium/Albuterol Sulfate 3 ML AMPUL.NEB INHALATION ×3 (06:45→17:55)
[2021-05-09 06:46] VITALS: PULSE 70; RESP 18; O2SAT 97
[2021-05-09 06:47] LABS: ALB/GLOB Ratio 0.5 RATIO (0.9-2.4); AST(SGOT) 33 U/L (15-37); Alanine Aminotransfer ALT/SGPT 42 U/L (16-61); Alkaline Phosphatase 81 U/L (45-117); Anion Gap 1 (5-15); BUN 6 mg/dL (7-18); BUN/Creat Ratio 16.9 RATIO (10-20); Calcium,Total 8.7 mg/dL (8.5-10.1); Chloride 106 mmol/L (98-107); Creatinine, Serum 0.36 mg/dL (0.70-1.30); EST Glomerular Filtration Rate 259 mL/min (>60); Est Glom Filt Rate - Afr Amer 313 mL/min (>60); Estimated Creatinine Clearance 69.13 ml/min; Globulin 3.9 g/dL (2.2-4.2); Glucose 92 mg/dL (74-106); Magnesium 1.4 mg/dL (1.6-2.6); Potassium 3.5 mmol/L (3.5-5.1); Protein, Total 5.9 g/dL (6.4-8.2); Sodium Level 139 mmol/L (136-145)
--- NOTE | 2021-05-09 07:32 | PN.HOSP_ITS ---
Subjective Subjective Patient underwent CT of the chest the day prior which demonstrated Masslike consolidation of the medial left lower lobe with focal bronchial cut off. Consult subsequently placed to Dr. Stewart with pulmonary medicine Objective Data Objective Data Vital Signs: Vital Signs Temp Pulse Resp BP Pulse Ox 97.8 F 70 18 128/73 H 97 05/09/21 02:38 05/09/21 06:46 05/09/21 06:46 05/09/21 02:38 05/09/21 06:46 Oxygen Flow Rate (L/min) 100 Oxygen Delivery Method Room Air Weight: 71.1 kg Body Mass Index (BMI) 19.7 Intake & Output: Intake and Output for Last 24 Hours 05/07/21 05/08/21 05/09/21 23:59 23:59 23:59 Intake Total 3835.00 / 3835.00 2972.5 / 2972.5 Output Total 1350 / 1350 650 / 850 700 / 700 Balance 2485.00 / 2485.00 2322.5 / 2122.5 -700 / -700 Medical Nutrition Assessment Dietitian: Nutrition Therapy Diagnosis Start: 05/07/21 11:14 Freq: Status: Active Protocol: Document 05/07/21 11:34 BP (Rec: 05/07/21 11:34 BP [id number]) Nutrition Malnutrition Evidence of Malnutrition Exists Yes Malnutrition (severe): Chronic Evidenced By Suboptimal Energy Intake ( Severe),Weight Loss (Severe), Physical Changes (Severe) Clinical Problem Chronic Disease or Condition Related Malnutrition Etiology Severe malnutrition in the context chronic disease/ condition related to inadequate oral intake and unintentional wt loss Signs/Symptoms as evidenced by severe wt loss 9% x 2 months severe, severe temporal scooping/depression, severe orbital bone hollow look/depression, severe clavicle bone protrusion, pt consuming <25% of meals served , and suspect pt consuming </= 50% energy intake compared to estimated energy needs x >/= 1 year. Status Active Problem Recommendation Dietitian Recommendations/Changes Will liberalize diet to regular d/t s/s of malnutrition. Continue ensure pudding & ensure enlive with pt meals. Will provide soft/bite sized textures at pt meals as pt dentures fit loose, does not seemingly eat with them in. Lab / Micro Data Result Diagrams: 05/09/21 06:12 05/09/21 06:12 Labs: Laboratory Results - last 24 hr 05/09/21 06:12: WBC 13.8 H, RBC 3.26 L, Hgb 11.4 L, Hct 33.8 L, MCV 103.7 H, MCH 35.0 H, MCHC 33.7, RDW Std Deviation 46.7 H, RDW Coeff of Issa 12.3, Plt Count 477 H, MPV 8.6, Immature Gran % (Auto) 1.200 H, Neut % (Auto) 79.7 H, Lymph % (Auto) 7.5 L, [place] % (Auto) 7.5, Eos % (Auto) 3.5, Baso % (Auto) 0.6, Absolute Neuts (auto) 11.0 H, Absolute Lymphs (auto) 1.03, Nucleated RBC % 0 05/09/21 06:12: Sodium 139, Potassium 3.5, Chloride 106, Carbon Dioxide 32.0, Anion Gap 1 L, BUN 6 L, Creatinine 0.36 L, Estim Creat Clear Calc 69.13, Est GFR (MDRD) Af Amer 313, Est GFR (MDRD) Non-Af 259, BUN/Creatinine Ratio 16.9, Glucose 92, Calcium 8.7, Magnesium 1.4 L, Total Bilirubin 0.40, AST 33, ALT 42, Alkaline Phosphatase 81, Total Protein 5.9 L, Albumin 2.0 L, Globulin 3.9, Albumin/Globulin Ratio 0.5 L Micro: Microbiology 05/06/21 10:50 Blood Culture (Wb) - Anticubital Right Blood Culture - Preliminary No growth in 48 hours. 05/06/21 11:17 Blood Culture (Wb) - Anticubital Left Blood Culture - Preliminary No growth in 48 hours. 05/06/21 18:00 Urine, Clean Catch Urine Culture - Preliminary Culture exhibits no growth. 05/06/21 18:00 Urine, Clean Catch Legionella Antigen - Final 05/06/21 18:00 Urine, Clean Catch Streptococcus pneumoniae Antigen (M - Final 05/06/21 14:15 Mucosa - Nose SARS-CoV-2 Antigen (Rapid) - Final Radiography Diagnostic Testing: Radiology Impression Chest CT 05/08/21 08:59 IMPRESSION: 1. Masslike consolidation of the medial left lower lobe with focal bronchial cut off. While this could represent infection/pneumonia, bronchial neoplasm is also considered more likely, considering the focal bronchial cut off/mass effect. Additional evaluation with PET scan versus biopsy recommended. Alternatively, short interval follow-up chest CT following adequate clinical therapy for pneumonia could also be performed. 2. Small left pleural effusion. 3. 1.9 x 2.4 cm nodule in the medial left upper abdomen, incompletely visualized but new since prior abdomen/pelvis CT of 06/08/2020. Could be arising from the left adrenal gland versus retroperitoneal adenopathy. Abdomen/pelvis CT with IV and oral contrast recommended. Electronically Signed: Paul Lloyd MD (Brooks) at 11:23 EDT , Service support , Physical Exam Narrative GENERAL: Frail looking HEENT: Atraumatic; EYES; Anicteric, Normal Conjunctiva NECK; supple, normal thyroid, RESPIRATORY: Diminished to auscultation CARDIOVASCULAR: Regular S1 S2, GI: soft, normoactive bowel sounds, : No Renal angle tenderness; EXTREMITIES: No edema, no clubbing, MUSCULOSKELETAL: muscle waisting NEURO: Awake; no lateralizing signs. SKIN: No Rash PSYCH; Flat affect Assessment & Plan Assessment/Plan (1) Community acquired pneumonia: QUALIFIERS: Laterality: unspecified laterality Qualified Code(s): J18.9 - Pneumonia, unspecified organism (2) Debility: (3) Acute metabolic encephalopathy: PLAN: Patient is a 70-year-old gentleman with history of COPD presented with progressive generalized weakness fever chills and productive cough. Imaging studies obtained demonstrated medial left lower lobe could represent pneumonia versus mass 1. Community-acquired pneumonia ?X-ray obtained demonstrated medial left lower lobe could represent pneumonia versus mass. Patient placed on Levaquin did order CT of the chest given the probability of a mass and with patient unexplained weight loss -05/09/[address] of the chest the day prior which demonstrated Masslike consolidation of the medial left lower lobe with focal bronchial cut off. Consult subsequently placed to Dr. Stewart with pulmonar 2. Physical deconditioning - Requested for PT OT eval and psychiatric social worker supervisor to assist with discharge planning 3. Unexplained weight loss ?Ordered CT of the chest for subsequent evaluation 4. History of peptic ulcer disease ?Patient is on PPI 5. Severe protein calorie malnutrition ?As evidenced by decreased energy level significant weight loss and low dietary intake. Consult placed to dietitian 6. Dyslipidemia -Patient is on statin therapy, continued at home dose 7. COPD ?Aerosol treatment as needed 8. Hypertension - Blood pressure controlled, home medications continued with dose adjustment as needed 9. DVT prophylaxis ?Enoxaparin Charges/Coding Visit Charges Inpatient E&M: 90129 Subs Hosp L2
--- NOTE | 2021-05-09 08:18 | CON.PCM.CC_ITS ---
Assessment & Plan Assessment/Plan (1) Community acquired pneumonia: QUALIFIERS: Laterality: unspecified laterality Qualified Code(s): J18.9 - Pneumonia, unspecified organism (2) Abnormal chest CT: PLAN: RECOMMENDATIONS: 1. Continue antimicrobials to complete 7-day treatment course. 2. Continue bronchodilator therapy. 3. Patient to be n.p.o. at midnight. 4. Plan for bronchoscopy tomorrow morning at 0630. 5. The patient will need to be followed up closely in the pulmonary medicine clinic after discharge. IMPRESSIONS: 1. Abnormal chest CT The patient's CT chest completed on May 08 did reveal a left lower lobe masslike consolidation with possible left lower lobe endobronchial involvement. The patient does have an extensive smoking history along with unintentional weight loss over the course of the last year. Prior imaging from 2019 was also reviewed and demonstrated a small consolidation in the left lower lobe at that time as well. Given the findings noted along with the patient's extensive smoking history and unintentional weight loss, we will proceed with airway evaluation via bronchoscopy tomorrow morning. We will plan to perform a bronchial alveolar lavage and if there is evidence of any endobronchial tumor involvement, biopsies will be obtained. In the interim, it is reasonable to continue empiric antimicrobials to complete a 7-day treatment course. 2. Chronic tobacco dependency with questionable obstructive lung disease I personally spent 4 minutes discussing the deleterious effects of continued tobacco use with the patient, including modalities which could be utilized to achieve a smoke-free lifestyle. In addition to the patient's bronchoscopy work- up as noted above, he would benefit from outpatient PFTs and a 6-minute walk test. 3. History of peptic ulcer disease/unintentional weight loss/hypertension/hyperlipidemia Complicates care, management, recovery and prognosis. Continue home medications as indicated. This note was generated with [employer] software. It may contain incorrect words, spelling, and punctuation that were not noted in checking the note before signing. HPI Consult Data Date of Consult: 05/09/21 HPI Narrative Reason for Consultation: Abnormal chest CT HPI Narrative: The patient is a 70-year-old male, with a history as outlined below, who presented to the emergency department on May 05 with generalized malaise, fatigue, shortness of breath and cough. The patient does have an extensive smoking history of approximately 50 pack years. He also has questionable COPD, but has never been formally evaluated by a design studio consultant or had PFTs completed. He does not utilize supplemental oxygen at his baseline. The patient and his significant other do report an approximate 40 pound unintentional weight loss over the course of the last year. On presentation to the emergency department, the patient was noted to be afebrile and hemodynamically stable. He was initially documented to be saturating appropriately on room air. Laboratory evaluation revealed an elevated white blood cell count to 17,000. Platelet count was elevated to 498, 000. Chemistry profile was unrevealing. Coronavirus PCR was negative. The patient was initially admitted to the hospital and placed on antimicrobials. A CT chest without contrast was obtained on May 08 and revealed a masslike consolidation in the left lower lobe with questionable endobronchial involvement. In May 2020, the patient also had a CT chest completed which revealed a rounded masslike consolidation in the left lower lobe as well. This was presumed to be pneumonia at that time. No follow-up imaging was obtained until his most recent CT chest. The patient is currently maintaining appropriate oxygen saturations on room air. [facility] Medical History (Updated 05/09/21 @ 08:[address] Sammy Stewart, DO) Arthritis Chronic pain Depression GERD (gastroesophageal reflux disease) History of pneumonia History of stomach ulcers Hyperlipidemia Hypertension IBS (irritable bowel syndrome) Neuropathy Home Medications glucosamine-chondroitin 250 mg-200 mg tablet 2 tab PO QPC 12/27/17 [History Last Taken Unknown] ibuprofen 200 mg capsule 800 mg PO Q6H PRN PRN 12/27/17 [History Last Taken Unknown] multivitamin 1 tab PO QAM 12/27/17 [History Last Taken Unknown] trazodone 100 mg tablet 100 mg PO QHS PRN #90 tab 12/14/20 [Rx Last Taken Unknown] albuterol sulfate 90 mcg/actuation aerosol inhaler 2 puff INHALATION Q6H #8.5 g 01/18/21 [Rx Last Taken Unknown] venlafaxine 150 mg capsule,extended release 24 hr 150 mg PO QHS #90 cap 02/15/21 [Rx Last Taken Unknown] cyclobenzaprine 5 mg tablet 5 mg PO TID #90 tab 03/07/21 [Rx Last Taken Unknown] pravastatin 40 mg tablet 40 mg PO QHS #90 tab 03/07/21 [Rx Last Taken Unknown] gabapentin 600 mg tablet 600 mg PO TID #90 tab 03/16/21 [Rx Last Taken Unknown] hydrocodone-acetaminophen 1 tab PO 4X/DAY 04/23/21 [History Last Taken Unknown] pantoprazole 40 mg tablet,delayed release 40 mg PO QAM #90 tab 04/26/21 [Rx Last Taken Unknown] atenolol 40 mg PO DAILY 05/05/21 [History Last Taken Unknown] levofloxacin 500 mg PO DAILY #10 tab 05/05/21 [Rx Last Taken Unknown] Allergy/AdvReac Type Severity Reaction Status Date / Time aspirin Allergy Severe bleeding Verified 05/06/21 10:37 Family History Mother Myocardial infarction, Onset Age: 49 Depression Father Hypertension CVA (cerebral vascular accident), Onset Age: 49 Sister Thyroid disorder Uncle ulcers Surgical History History of endoscopy Social History Smoking Status: Current every day smoker tobacco type: cigarettes alcohol intake: never substance use type: does not use what type of physical activity do you participate in: other details: yard work, house work ROS Constitutional Constitutional: Denies chills or fever(s) Eyes Eyes: Denies blurry vision or change in vision ENT HEENT: Denies dysphagia, headache(s) or hoarseness Cardiovascular Cardiovascular: Reports dyspnea Respiratory/Chest Respiratory/Chest: Reports cough and dyspnea Gastrointestinal Gastrointestinal: Denies abdominal pain, diarrhea, nausea or vomiting Genitourinary Genitourinary: Denies difficulty urinating Musculoskeletal Musculoskeletal: Denies arthralgias or back pain Integumentary Integumentary: Denies lesions, rash or skin ulcer Neurologic Neurologic: Denies abnormal gait or abnormal speech Psychiatric Psychiatric: Denies anxiety or depression Endocrine Endocrinology: Denies fatigue Hematologic/Lymphatic Hematologic/Lymphatic: Denies easy bleeding or easy bruising Physical Exam Const alert and no apparent distress General Appearance: cooperative and frail HEENT normocephalic and head/scalp atraumatic HEENT Narrative: Edentulous Eyes PERRL, EOMs intact bilaterally and conjunctivae normal Neck supple General: trachea midline Resp Auscultation: diminished lung sounds; Negative for rales, rhonchi or wheezes Cardio regular rate and regular rhythm GI normal to inspection, nondistended, normoactive bowel sounds Extremity no clubbing, cyanosis or edema Skin no rashes or lesions noted Neuro no focal motor deficits Psych cooperative and affect normal Medical Records Data Medical Nutrition Assessment Dietitian: Nutrition Therapy Diagnosis Start: 05/07/21 11:14 Freq: Status: Active Protocol: Document 05/07/21 11:34 BP (Rec: 05/07/21 11:34 BP [id number]) Nutrition Malnutrition Evidence of Malnutrition Exists Yes Malnutrition (severe): Chronic Evidenced By Suboptimal Energy Intake ( Severe),Weight Loss (Severe), Physical Changes (Severe) Clinical Problem Chronic Disease or Condition Related Malnutrition Etiology Severe malnutrition in the context chronic disease/ condition related to inadequate oral intake and unintentional wt loss Signs/Symptoms as evidenced by severe wt loss 9% x 2 months severe, severe temporal scooping/depression, severe orbital bone hollow look/depression, severe clavicle bone protrusion, pt consuming <25% of meals served , and suspect pt consuming </= 50% energy intake compared to estimated energy needs x >/= 1 year. Status Active Problem Recommendation Dietitian Recommendations/Changes Will liberalize diet to regular d/t s/s of malnutrition. Continue ensure pudding & ensure enlive with pt meals. Will provide soft/bite sized textures at pt meals as pt dentures fit loose, does not seemingly eat with them in. Lab / Micro Data Result Diagrams: 05/09/21 06:12 05/09/21 06:12 Labs: Laboratory Results - last 24 hr 05/09/21 06:12: WBC 13.8 H, RBC 3.26 L, Hgb 11.4 L, Hct 33.8 L, MCV 103.7 H, MCH 35.0 H, MCHC 33.7, RDW Std Deviation 46.7 H, RDW Coeff of [place] 12.3, Plt Count 477 H, MPV 8.6, Immature Gran % (Auto) 1.200 H, Neut % (Auto) 79.7 H, Lymph % (Auto) 7.5 L, [place] % (Auto) 7.5, Eos % (Auto) 3.5, Baso % (Auto) 0.6, Absolute Neuts (auto) 11.0 H, Absolute Lymphs (auto) 1.03, Nucleated RBC % 0 05/09/21 06:12: Sodium 139, Potassium 3.5, Chloride 106, Carbon Dioxide 32.0, Anion Gap 1 L, BUN 6 L, Creatinine 0.36 L, Estim Creat Clear Calc 69.13, Est GFR (MDRD) Af Amer 313, Est GFR (MDRD) Non-Af 259, BUN/Creatinine Ratio 16.9, Glucose 92, Calcium 8.7, Magnesium 1.4 L, Total Bilirubin 0.40, AST 33, ALT 42, Alkaline Phosphatase 81, Total Protein 5.9 L, Albumin 2.0 L, Globulin 3.9, Albumin/Globulin Ratio 0.5 L Micro: Microbiology 05/06/21 18:00 Urine, Clean Catch Urine Culture - Final Culture exhibits no growth. 05/06/21 10:50 Blood Culture (Wb) - Anticubital Right Blood Culture - Preliminary No growth in 48 hours. 05/06/21 11:17 Blood Culture (Wb) - Anticubital Left Blood Culture - Preliminary No growth in 48 hours. Radiology Impression Chest CT 05/08/21 08:59 IMPRESSION: 1. Masslike consolidation of the medial left lower lobe with focal bronchial cut off. While this could represent infection/pneumonia, bronchial neoplasm is also considered more likely, considering the focal bronchial cut off/mass effect. Additional evaluation with PET scan versus biopsy recommended. Alternatively, short interval follow-up chest CT following adequate clinical therapy for pneumonia could also be performed. 2. Small left pleural effusion. 3. 1.9 x 2.4 cm nodule in the medial left upper abdomen, incompletely visualized but new since prior abdomen/pelvis CT of 06/08/2020. Could be arising from the left adrenal gland versus retroperitoneal adenopathy. Abdomen/pelvis CT with IV and oral contrast recommended. Electronically Signed: Paul Lloyd MD (Brooks) at 11:23 EDT , Service support , Charges/Coding Visit Charges Inpatient E&M: 64254 Init Hosp L3 Behavior Interventions Behavior Intervention: 34757 Smoking Cessation 3-10 min
[2021-05-09 08:19] VITALS: BP 105/55; PULSE 74; RESP 18; TEMP 37.1; O2SAT 96
[2021-05-09] MEDS: Enoxaparin 40 MG/0.4 ML Syringe SC (08:34)
[2021-05-09] MEDS: Multivitamins,Therapeutic Tablet 1 TABLET PO (08:34)
[2021-05-09] MEDS: Pantoprazole Sodium 40 MG Tablet PO (08:34)
[2021-05-09] MEDS: guaiFENesin 1,200 MG Tablet 1200 MG PO ×2 (08:34→21:49)
[2021-05-09] MEDS: Atenolol 50 MG Tablet PO (08:34)
--- NOTE | 2021-05-09 10:13 | CASEMGMT ---
Pt screened with [facility] Palliative Care Screening Tool due to strata 3, pt met criteria. No order received at this time.
[2021-05-09] MEDS: HYDROcodone Bitartrate/Apap 5/325 Tablet PO ×4 (10:34→21:49)
[2021-05-09] MEDS: levoFLOXacin IV 750 MG/150 ML BAG 100 MG IV (10:35)
[2021-05-09 10:38] VITALS: PULSE 65; RESP 20
[2021-05-09] MEDS: 0.9% Normal Saline 1,000 ML 75 ML IV (12:43)
[2021-05-09 13:33] LABS: International Normalized Ratio 1.2; Prothrombin Time (Protime)PT. 14.8 SECONDS (11.7-14.9)
--- NOTE | 2021-05-09 14:03 | CASEMGMT ---
RN CM in to pt room as therapy is recommending additional therapy. Pt lying in bed with blanket over head. Pt states he does not feel he needs therapy, thats what lawn mowers are for. Pt states he push mows his yard and that will be his therapy. He is aware of recommendations, but denies the need for therapy post dc. He is aware to ask for the RN CM if he should change his mind. He verbalizes understanding.
[2021-05-09 17:56] VITALS: BP 129/64; PULSE 60; PULSE 63; RESP 16; RESP 18; TEMP 37.1; O2SAT 97
[2021-05-09 20:12] VITALS: BP 120/67; PULSE 62; RESP 18; TEMP 36.7; O2SAT 99
[2021-05-09] MEDS: Venlafaxine XR 150 MG Capsule PO (21:49)
[2021-05-09] MEDS: Pravastatin 40 MG Tablet PO (21:49)
[2021-05-10] VITALS (9 sets, daily range): BP systolic 100–136; BP diastolic 55–75; PULSE 62–72; RESP 14–18; TEMP 36.4–37.3; O2SAT 93–98; BMI 20.9
[2021-05-10] MEDS: 0.9% Normal Saline 1,000 ML 75 ML IV (02:35)
[2021-05-10] MEDS: Ketorolac 15 MG/ML Vial IV (03:29)
[2021-05-10 05:50] LABS: Absolute Lymphocyte Count 1.21 X10^3/uL (0.83-4.51); Basophil# 0.09 X10^3/uL; Basophil% 0.7 % (0-1); Eosinophil# 0.56 X10^3/uL; Eosinophils% 4.3 % (0-5); Hematocrit 34.9 % (40-54); Hemoglobin 11.7 g/dL (13.0-16.5); Lymphocyte # 1.21 X10^3/ul (0.83-4.51); Lymphocyte % 9.3 % (19-41); Mean Corp Hgb Conc 33.5 g/dL (32-36); Mean Corpuscular Volume 104.5 fL (80-94); Mean Platelet Vol. 8.9 fl (6.2-12.0); Monocyte# 0.99 X10^3/uL; Monocyte% 7.6 % (0-10); NRBC Flagged by Analyzer 0 % (0-5); Neutrophil # 9.99 X10^3/uL (2.7-7.7); Neutrophil % 76.8 % (47-70); Platelet Count 507 K/mm3 (150-450); RBC Distribution Width CV 12.4 % (11.6-14.6); RBC Distribution Width SD 48.4 fl (35.1-43.9); Red Blood Count 3.34 M/mm3 (4.6-6.2)
[2021-05-10 06:01] LABS: Anion Gap 4 (5-15); BUN 6 mg/dL (7-18); BUN/Creat Ratio 15.9 RATIO (10-20); Calcium,Total 8.8 mg/dL (8.5-10.1); Chloride 106 mmol/L (98-107); Creatinine, Serum 0.38 mg/dL (0.70-1.30); EST Glomerular Filtration Rate 241 mL/min (>60); Est Glom Filt Rate - Afr Amer 292 mL/min (>60); Estimated Creatinine Clearance 68.06 ml/min; Glucose 91 mg/dL (74-106); Potassium 3.6 mmol/L (3.5-5.1); Sodium Level 140 mmol/L (136-145)
--- NOTE | 2021-05-10 06:13 | PN.CC_ITS ---
Assessment & Plan Assessment/Plan (1) Community acquired pneumonia: QUALIFIERS: Laterality: unspecified laterality Qualified Code(s): J18.9 - Pneumonia, unspecified organism (2) Abnormal chest CT: PLAN: RECOMMENDATIONS: 1. Given bronchoscopy findings, I would recommend that the patient complete a 10-day treatment course of antimicrobials. 2. We will make changes to his antibiotic course, if needed, pending the results of his culture data. 3. Recommend repeat CT chest in 6 to 8 weeks. 4. If there is any residual masslike consolidation on repeat chest imaging in 6 to 8 weeks, CT-guided lung biopsy may be required. 5. The patient has been scheduled to follow-up in the pulmonary medicine clinic on May 16 at 1:15 PM. 6. Recommend outpatient PFTs. IMPRESSIONS: 1. Abnormal chest CT The patient's CT chest completed on May 08 did reveal a left lower lobe masslike consolidation with possible left lower lobe endobronchial involvement. The patient does have an extensive smoking history along with unintentional weight loss over the course of the last year. Prior imaging from 2019 was also reviewed and demonstrated a small consolidation in the left lower lobe at that time as well. Given the findings noted along with the patient's extensive smoking history and unintentional weight loss, bronchoscopy was performed on May 10. The procedure itself demonstrated significant thick mucopurulent sec retions throughout the left tracheobronchial tree. There were no endobronchial lesions identified. Therapeutic suctioning was performed and bronchial alveolar lavage was performed in the left lower lobe. The sample will be sent for culture. I would recommend the patient complete a total of 10 days of antibiotics. I would also recommend that a repeat CT chest be completed in 6 to 8 weeks to document resolution of the left lower lobe masslike consolidation. If still present, percutaneous CT-guided lung biopsy can be completed. The patient has been scheduled to follow-up in the pulmonary medicine clinic next week. 2. Chronic tobacco dependency with questionable obstructive lung disease Smoking cessation counseling was provided. Recommend outpatient baseline pulmonary function studies. 3. History of peptic ulcer disease/unintentional weight loss/hypertension/hyperlipidemia Complicates care, management, recovery and prognosis. Continue home medications as indicated. This note was generated with SWIIM Systemation software. It may contain incorrect words, spelling, and punctuation that were not noted in checking the note before signing. Subjective Subjective The patient was seen and examined in the endoscopy suite this morning. Events from the last 24 hours have been reviewed. The patient is currently afebrile, hemodynamically stable and maintaining appropriate oxygen saturations on room air. The patient denies any resting shortness of breath. He is agreeable to proceed with bronchoscopy. Objective Data Objective Data The patient's most recent lab work, culture data and imaging studies have all been personally reviewed. Rapid coronavirus antigen testing was negative. Blood cultures have demonstrated no growth to date. Urine culture has demonstrated no growth to date. Strep and urine Legionella antigens were negative. Vital Signs: Vital Signs Temp Pulse Resp BP Pulse Ox 98.0 F 62 16 136/67 H 96 05/10/21 05:40 05/10/21 05:40 05/10/21 05:40 05/10/21 05:40 05/10/21 05:40 Oxygen Flow Rate (L/min) 100 Oxygen Delivery Method Room Air Weight: 70 kg Body Mass Index (BMI) 20.9 Intake & Output: Intake and Output for Last 24 Hours 05/08/21 05/09/21 05/10/21 23:59 23:59 23:59 Intake Total 2972.5 / 2972.5 1385.00 / 1585.00 1376.5 / 1376.5 Output Total 650 / 850 850 / 850 400 / 400 Balance 2322.5 / 2122.5 535.00 / 735.00 976.5 / 976.5 Medical Nutrition Assessment Dietitian: Nutrition Therapy Diagnosis Start: 05/07/21 11:14 Freq: Status: Active Protocol: Document 05/09/21 14:59 (Rec: 05/09/21 14:59 [id number]) Nutrition Malnutrition Evidence of Malnutrition Exists Yes Malnutrition (severe): Chronic Evidenced By Suboptimal Energy Intake ( Severe),Weight Loss (Severe), Physical Changes (Severe) Clinical Problem Chronic Disease or Condition Related Malnutrition Etiology Severe malnutrition in the context chronic disease/ condition related to inadequate oral intake and unintentional wt loss Signs/Symptoms as evidenced by severe wt loss 9% x 2 months severe, severe temporal scooping/depression, severe orbital bone hollow look/depression, severe clavicle bone protrusion, pt consuming <25% of meals served , and suspect pt consuming </= 50% energy intake compared to estimated energy needs x >/= 1 year. Status Active Problem Recommendation Dietitian Recommendations/Changes Continue regular diet due to s /s of malnutrition- soft/bite sized d/t chewing difficulty. Continue ensure enlive and magic cup w/ meals for additional calories/protein if consumed. Will fortify foods when possible. Lab / Micro Data Attestation: I reviewed the patient's lab results. Result Diagrams: 05/10/21 05:20 05/10/21 05:20 Labs: Laboratory Results - last 24 hr 05/09/21 06:12: WBC 13.8 H, RBC 3.26 L, Hgb 11.4 L, Hct 33.8 L, MCV 103.7 H, MCH 35.0 H, MCHC 33.7, RDW Std Deviation 46.7 H, RDW Coeff of Issa 12.3, Plt Count 477 H, MPV 8.6, Immature Gran % (Auto) 1.200 H, Neut % (Auto) 79.7 H, Lymph % (Auto) 7.5 L, [place] % (Auto) 7.5, Eos % (Auto) 3.5, Baso % (Auto) 0.6, Absolute Neuts (auto) 11.0 H, Absolute Lymphs (auto) 1.03, Nucleated RBC % 0 05/09/21 06:12: Sodium 139, Potassium 3.5, Chloride 106, Carbon Dioxide 32.0, Anion Gap 1 L, BUN 6 L, Creatinine 0.36 L, Estim Creat Clear Calc 69.13, Est GFR (MDRD) Af Amer 313, Est GFR (MDRD) Non-Af 259, BUN/Creatinine Ratio 16.9, Glucose 92, Calcium 8.7, Magnesium 1.4 L, Total Bilirubin 0.40, AST 33, ALT 42, Alkaline Phosphatase 81, Total Protein 5.9 L, Albumin 2.0 L, Globulin 3.9, Albumin/Globulin Ratio 0.5 L 05/09/21 13:09: PT 14.8, INR 1.2 05/10/21 05:20: WBC 13.0 H, RBC 3.34 L, Hgb 11.7 L, Hct 34.9 L, MCV 104.5 H, MCH 35.0 H, MCHC 33.5, RDW Std Deviation 48.4 H, RDW Coeff of Issa 12.4, Plt Count 507 H, MPV 8.9, Immature Gran % (Auto) 1.300 H, Neut % (Auto) 76.8 H, Lymph % (Auto) 9.3 L, [place] % (Auto) 7.6, Eos % (Auto) 4.3, Baso % (Auto) 0.7, Absolute Neuts (auto) 10.0 H, Absolute Lymphs (auto) 1.21, Nucleated RBC % 0 05/10/21 05:20: Sodium 140, Potassium 3.6, Chloride 106, Carbon Dioxide 30.0, Anion Gap 4 L, BUN 6 L, Creatinine 0.38 L, Estim Creat Clear Calc 68.06, Est GFR (MDRD) Af Amer 292, Est GFR (MDRD) Non-Af 241, BUN/Creatinine Ratio 15.9, Glucose 91, Calcium 8.8 Micro: Microbiology 05/06/21 18:00 Urine, Clean Catch Urine Culture - Final Culture exhibits no growth. 05/06/21 10:50 Blood Culture (Wb) - Anticubital Right Blood Culture - Preliminary No growth in 48 hours. 05/06/21 11:17 Blood Culture (Wb) - Anticubital Left Blood Culture - P reliminary No growth in 48 hours. 05/06/21 18:00 Urine, Clean Catch Legionella Antigen - Final 05/06/21 18:00 Urine, Clean Catch Streptococcus pneumoniae Antigen (M - Final 05/06/21 14:15 Mucosa - Nose SARS-CoV-2 Antigen (Rapid) - Final Physical Exam Const alert and no apparent distress General Appearance: cooperative and frail HEENT normocephalic and head/scalp atraumatic HEENT Narrative: Edentulous Eyes PERRL, EOMs intact bilaterally and conjunctivae normal Neck supple General: trachea midline Resp Auscultation: diminished lung sounds; Negative for rales, rhonchi or wheezes Cardio regular rate and regular rhythm GI normal to inspection, nondistended, normoactive bowel sounds Extremity no clubbing, cyanosis or edema Skin no rashes or lesions noted Neuro no focal motor deficits Psych cooperative and affect normal Charges/Coding Visit Charges Inpatient E&M: 70556 Subs Hosp L2
[2021-05-10] MEDS: Lactated Ringers 1,000 ML 100 ML IV (06:29)
--- NOTE | 2021-05-10 07:00 | FLU_PTH ---
PATIENT: PEDRO ALBRECHT LOC: MS3 U#:[id number] AGE/SX: 70/M ROOM: ME314 RE05/06/[address]: Dr. Chucho Rosales MD : 1950 BED: 1 DIS: 05/10/2021 SPEC #: [id number] RECD: 05/10/21 08:31 STATUS: MARCELINO REQ #: [id number] [place]AS[place]: 05/10/21 07:[address]: Chucho Rosales DEPT: CYTOLOGY RECD BY: Sandi Kaplan ENTERED: 05/10/21 08:32 SP TYPE: Fluid OTHR DR: MD Dr. Wei Alejandra MD Dr. Douglas R Brown, DO Dr. Derek Brown, DO Dorie Jeter, REFRIGERATION SYSTEMS INSTALLER-C Tissues: Bronchus of left lower lobe Procedures: Special Stain Group II Special Stain Group I Surgery Specimen Level IV GMS Stain (control) Cytospin Fluid HEADER OPERATION: Bronchoscopy (MAC) PRE-OP DIAGNOSIS: Abnormal CT scan of chest TISSUE SUBMITTED: BAL LLL fluid for cytology DIAGNOSIS CYTOLOGY Bronchoalveolar lavage, left lower lung (cytospin and cell block): Negative for malignant cells. Acute inflammation. Negative for fungal organisms. See comment. AM:haily 05/11/2021 COMMENT GMS stain with matched control was used in the evaluation of this case. Case has been reviewed in consultation with Dr. Goodwin who concurs with the above diagnosis. IDC:SJ CYTOLOGY STUDY Slides are reviewed. CYTOLOGY GROSS Received is 35 ml of thick james, cloudy, mucoidy fluid labeled with the patient's name and and designated per the requisition as BAL LLL. Submitted for cytology preparation including cell block. / haily 05/10/2021 TC:2 CPT: 72358, 19055, 43794
--- NOTE | 2021-05-10 07:02 | OP.BRONCH_ITS ---
Patient Name: Eligio Mccabe Procedure Date: 05/10/2021 6:29 AM Date of : 1950 Age: 70 Procedure: Bronchoscopy Indications: Abnormal CT scan of chest Providers: Sammy Stewart MD Referring MD: Roxana Michel Md Medicines: Monitored Anesthesia Care Complications: No immediate complications Procedure: Pre-Anesthesia Assessment: - A History and Physical has been performed. Patient meds and allergies have been reviewed. The risks and benefits of the procedure and the sedation options and risks were discussed with the patient. All questions were answered and informed consent was obtained. Patient identification and proposed procedure were verified prior to the procedure by the physician and the nurse in the procedure room. Mental Status Examination: alert and oriented. Airway Examination: normal oropharyngeal airway. Respiratory Examination: poor air movement. CV Examination: normal. ASA Grade Assessment: II - A patient with mild systemic disease. After reviewing the risks and benefits, the patient was deemed in satisfactory condition to undergo the procedure. The anesthesia plan was to use monitored anesthesia care (MAC). Immediately prior to administration of medications, the patient was re-assessed for adequacy to receive sedatives. The heart rate, respiratory rate, oxygen saturations, blood pressure, adequacy of pulmonary ventilation, and response to care were monitored throughout the procedure. The physical status of the patient was re-assessed after the procedure. After I obtained informed consent, the scope was passed under direct vision. Throughout the procedure, the patient's blood pressure, pulse, and oxygen saturations were monitored continuously. The bronchoscope was introduced through the mouth and advanced to the tracheobronchial tree. The procedure was accomplished without difficulty. The patient tolerated the procedure well. Findings: The nasopharynx/oropharynx appears normal. The larynx appears normal. The vocal cords appear normal. The subglottic space is normal. The trachea is of normal caliber. The citlaly is sharp. The tracheobronchial tree of the right lung was examined to at least the first subsegmental level. Bronchial mucosa and anatomy in the right lung are normal; there are no endobronchial lesions, and no secretions. Left Lung Abnormalities: Copious, mucopurulent, thick secretions were found throughout the left tracheobronchial tree. They were partially obstructing the airway. Suctioning was performed and the airway was cleared. BAL was performed in the left lower lobe of the lung and sent for cell count, bacterial culture, viral smears & culture, and fungal & AFB analysis and cytology. 60 mL of fluid were instilled. 40 mL were returned. The return was mucopurulent. Mucous plugs were present in the return fluid. Impression: - Abnormal CT scan of chest - The airway examination of the right lung was normal. - Copious, mucopurulent, thick secretions were found throughout the left tracheobronchial tree. - Suctioning was performed. - Bronchoalveolar lavage was performed. - No left sided endobronchial lesions were identified. Recommendation: - Await BAL results. Procedure Code(s): --- Professional --- 97257, Bronchoscopy, rigid or flexible, including fluoroscopic guidance, when performed; with bronchial alveolar lavage Diagnosis Code(s): --- Professional --- R09.89, Other specified symptoms and signs involving the circulatory and respiratory systems R93.8, Abnormal findings on diagnostic imaging of other specified body structures CPT copyright 2017 [employer]. All rights reserved. The codes documented in this report are preliminary and upon washing and screening plant supervisor review may be revised to meet current compliance requirements. DO Sammy Alvarez MD 05/10/2021 7:02:44 AM This report has been signed electronically. Number of Addenda: 0 Note Initiated On: 05/10/2021 6:29 AM
[2021-05-10] MEDS: Lidocaine 2% (5ml sdv) 5 ML VIAL.MPF (07:23)
[2021-05-10] MEDS: Lidocaine 2% Jelly 1 APPLIC Tube (07:23)
[2021-05-10 07:38] LABS: Cytology, Body Fluid / CSF SEE PATHOLOGY REPORT
--- NOTE | 2021-05-10 07:41 | PCM.DC.SUM ---
Providers Date of Admission: 05/06/21 Primary Care Physician: Dr. Miguel Stewart, DO Consultations 05/09/21 07:30 Consult: Right Of Way Supervisor / Pulmonary Medicine Routine Consulting Provider: Pulmonary Medicine mayra Au Reason for Consult: lung mass EMERGENT Consult: No MD Notified: Yes Date Notified: 05/09/21 Time Notified: 07:31 Method of Notification: Text Reason For Visit: CAP Diagnosis Discharge Diagnosis (1) Community acquired pneumonia: Status: Acute Code(s): J18.9 - Pneumonia, unspecified organism Qualifiers: Laterality: unspecified laterality Qualified Code(s): J18.9 - Pneumonia, unspecified organism (2) Abnormal chest CT: Status: Acute Code(s): R93.89 - Abnormal findings on diagnostic imaging of other specified body structures Medications at Discharge Home Medications glucosamine-chondroitin 250 mg-200 mg tablet 2 tab PO QPC 12/27/17 ibuprofen 200 mg capsule 800 mg PO Q6H PRN PRN 12/27/17 multivitamin 1 tab PO QAM 12/27/17 trazodone 100 mg tablet 100 mg PO QHS PRN #90 tab 12/14/20 albuterol sulfate 90 mcg/actuation aerosol inhaler 2 puff INHALATION Q6H #8.5 g 01/18/21 venlafaxine 150 mg capsule,extended release 24 hr 150 mg PO QHS #90 cap 02/15/21 cyclobenzaprine 5 mg tablet 5 mg PO TID #90 tab 03/07/21 pravastatin 40 mg tablet 40 mg PO QHS #90 tab 03/07/21 gabapentin 600 mg tablet 600 mg PO TID #90 tab 03/16/21 hydrocodone-acetaminophen 1 tab PO 4X/DAY 04/23/21 pantoprazole 40 mg tablet,delayed release 40 mg PO QAM #90 tab 04/26/21 atenolol 40 mg PO DAILY 05/05/21 levofloxacin 500 mg PO DAILY #10 tab 05/10/21 Hospital Course Summary of Care Provided Minutes Spent on Discharge: 35 Hospital Course: Patient is a 70-year-old gentleman with history of COPD presented with progressive generalized weakness fever chills and productive cough. Imaging studies obtained demonstrated medial left lower lobe could represent pneumonia versus mass 1. Community-acquired pneumonia ?X-ray obtained demonstrated medial left lower lobe could represent pneumonia versus mass. Patient placed on Levaquin did order CT of the chest given the probability of a mass and with patient unexplained weight loss -05/09/[address] of the chest the day prior which demonstrated Masslike consolidation of the medial left lower lobe with focal bronchial cut off. Consult subsequently placed to Dr. Stewart with pulmonary 05/10/2021. Patient underwent bronchoscopy by Dr. Stewart findings included copious mucopurulent thick secretions found throughout the left tracheobronchial tree. Suctioning was performed.. Cultures obtained no left-sided endobronchial lesions were identified. Patient was discharged home on Levaquin with plans for patient to follow-up with pulmonary medicine as outpatient 2. Physical deconditioning - Requested for PT OT eval and criminal justice social worker to assist with discharge planning 3. Unexplained weight loss ?Ordered CT of the chest for subsequent evaluation 4. History of peptic ulcer disease ?Patient is on PPI 5. Severe protein calorie malnutrition ?As evidenced by decreased energy level significant weight loss and low dietary intake. Consult placed to dietitian 6. Dyslipidemia -Patient is on statin therapy, continued at home dose 7. COPD ?Aerosol treatment as needed 8. Hypertension - Blood pressure controlled, home medications continued with dose adjustment as needed 9. DVT prophylaxis ?Enoxaparin Physical Exam Narrative GENERAL: Frail looking HEENT: Atraumatic; EYES; Anicteric, Normal Conjunctiva NECK; supple, normal thyroid, RESPIRATORY: Diminished to auscultation CARDIOVASCULAR: Regular S1 S2, GI: soft, normoactive bowel sounds, : No Renal angle tenderness; EXTREMITIES: No edema, no clubbing, MUSCULOSKELETAL: muscle waisting NEURO: Awake; no lateralizing signs. SKIN: No Rash PSYCH; Flat affect Medical Records Data Medical Nutrition Assessment Dietitian: Nutrition Therapy Diagnosis Start: 05/07/21 11:14 Freq: Status: Active Protocol: Document 05/09/21 14:59 AG (Rec: 05/09/21 14:59 AG [id number]) Nutrition Malnutrition Evidence of Malnutrition Exists Yes Malnutrition (severe): Chronic Evidenced By Suboptimal Energy Intake ( Severe),Weight Loss (Severe), Physical Changes (Severe) Clinical Problem Chronic Disease or Condition Related Malnutrition Etiology Severe malnutrition in the context chronic disease/ condition related to inadequate oral intake and unintentional wt loss Signs/Symptoms as evidenced by severe wt loss 9% x 2 months severe, severe temporal scooping/depression, severe orbital bone hollow look/depression, severe clavicle bone protrusion, pt consuming <25% of meals served , and suspect pt consuming </= 50% energy intake compared to estimated energy needs x >/= 1 year. Status Active Problem Recommendation Dietitian Recommendations/Changes Continue regular diet due to s /s of malnutrition- soft/bite sized d/t chewing difficulty. Continue ensure enlive and magic cup w/ meals for additional calories/protein if consumed. Will fortify foods when possible. Weight / BMI Weight Weight: 70 kg Body Mass Index (BMI) 20.9 ABG / Lab / Microbiology Data Result Diagrams: 05/10/21 05:20 05/10/21 05:20 Laboratory: Laboratory Results - last 24 hr 05/09/21 13:09: PT 14.8, INR 1.2 05/10/21 05:20: WBC 13.0 H, RBC 3.34 L, Hgb 11.7 L, Hct 34.9 L, MCV 104.5 H, MCH 35.0 H, MCHC 33.5, RDW Std Deviation 48.4 H, RDW Coeff of Issa 12.4, Plt Count 507 H, MPV 8.9, Immature Gran % (Auto) 1.300 H, Neut % (Auto) 76.8 H, Lymph % (Auto) 9.3 L, [place] % (Auto) 7.6, Eos % (Auto) 4.3, Baso % (Auto) 0.7, Absolute Neuts (auto) 10.0 H, Absolute Lymphs (auto) 1.21, Nucleated RBC % 0 05/10/21 05:20: Sodium 140, Potassium 3.6, Chloride 106, Carbon Dioxide 30.0, Anion Gap 4 L, BUN 6 L, Creatinine 0.38 L, Estim Creat Clear Calc 68.06, Est GFR (MDRD) Af Amer 292, Est GFR (MDRD) Non-Af 241, BUN/Creatinine Ratio 15.9, Glucose 91, Calcium 8.8 Microbiology: Microbiology 05/06/21 18:00 Urine, Clean Catch Urine Culture - Final Culture exhibits no growth. 05/06/21 10:50 Blood Culture (Wb) - Anticubital Right Blood Culture - Preliminary No growth in 48 hours. 05/06/21 11:17 Blood Culture (Wb) - Anticubital Left Blood Culture - Preliminary No growth in 48 hours. 05/06/21 18:00 Urine, Clean Catch Legionella Antigen - Final 05/06/21 18:00 Urine, Clean Catch Streptococcus pneumoniae Antigen (M - Final 05/06/21 14:15 Mucosa - Nose SARS-CoV-2 Antigen (Rapid) - Final D/C Instructions Discharge Diet: No restrictions Discharge Activity: Return to Normal Activity Call your doctor if you observe: Fever of 101 or Higher, Shortness of breath, Fainting spells and Chest pain Meaningful Use Info Meaningful Use Diagnoses (Choose all that apply): None applicable Discharge Plan Admission Admit Date/Time: 05/06/21 13:43 Primary Reason for Your Visit: Pneumonia Attending Provider: Chucho Rosales Primary Care Provider: Miguel Stewart Consulting Providers: Wei Peralta ; Sammy Stewart ; Dorie Jeter RELOCATION ASSOCIATE Discharge Orders/Prescriptions Prescriptions: Continued ibuprofen [Motrin IB] 200 mg capsule 800 mg PO Q6H PRN PRN (Reason: Pain) RF: 0 multivitamin tablet 1 tab PO QAM RF: 0 glucosamine-chondroitin 250 mg-200 mg tablet 250-200 mg tablet 2 tab PO QPC RF: 0 Ventolin HFA 90 mcg/actuation HFA aerosol inhaler 2 puff INHALATION Q6H Qty: 8.5 RF: 2 cyclobenzaprine 5 mg tablet 5 mg PO TID Qty: 90 RF: 1 pravastatin 40 mg tablet 40 mg PO QHS Qty: 90 RF: 1 hydrocodone-acetaminophen 10-325 mg tablet 1 tab PO 4X/DAY RF: 0 atenolol 50 mg tablet 40 mg PO DAILY RF: 0 levofloxacin 500 mg tablet 500 mg PO DAILY Qty: 10 RF: 0 trazodone 100 mg tablet 100 mg PO QHS PRN (Reason: insomnia) Qty: 90 RF: 1 venlafaxine 150 mg capsule,extended release 24hr 150 mg PO QHS Qty: 90 RF: 1 gabapentin 600 mg tablet 600 mg PO TID Qty: 90 RF: 1 pantoprazole 40 mg tablet,delayed release (DR/EC) 40 mg PO QAM Qty: 90 RF: 1 Referrals / Follow Up: Miguel Stewart DO [Primary Care Provider] - In 1 Week Sammy Stewart DO [STAFF PHYSICIAN] - In 1 Week Disposition Disposition (needs filled in before D/C Order can be placed): Home, Self Care Charges/Coding Visit Charges Inpatient E&M: 67420 Disch Hosp
[2021-05-10] MEDS: guaiFENesin 1,200 MG Tablet 1200 MG PO (08:10)
[2021-05-10] MEDS: Atenolol 50 MG Tablet PO (08:10)
[2021-05-10] MEDS: Multivitamins,Therapeutic Tablet 1 TABLET PO (08:11)
[2021-05-10] MEDS: Enoxaparin 40 MG/0.4 ML Syringe SC (08:11)
[2021-05-10] MEDS: Pantoprazole Sodium 40 MG Tablet PO (08:11)
[2021-05-10 08:33] LABS: Source- Body Fluid BRONCHIAL LAVAGE
[2021-05-10 08:34] LABS: Appearance/Body Fluid TURBID; Color/Body Fluid YELLOW
[2021-05-10 08:38] LABS: Red Cell Count/Body Fluid 2800 /mm3; White Blood Count/Body Fluid 39650 /mm3
[2021-05-10 08:51] LABS: Body Fluid QC Type(s) BF1Q; Neutrophil (Segs) 100 %
--- NOTE | 2021-05-10 08:53 | PCM.DC ---
Discharge Instructions Diet Discharge Diet: No restrictions Activity Discharge Activity: Return to Normal Activity Dressing / Incision Call your doctor if you observe: Fever of 101 or Higher, Shortness of breath, Fainting spells and Chest pain Follow Up Care Test Results: Test results from this visit will be discussed in further detail at your follow-up appointment, if applicable. Discharge Plan Admission Admit Date/Time: 05/06/21 13:43 Primary Reason for Your Visit: Pneumonia Attending Provider: Chucho Rosales Primary Care Provider: Miguel Stewart Consulting Providers: Wei Peralta ; Sammy Stewart ; Dorie Jeter DEPUTY SHERIFF BUILDING GUARD Discharge Orders/Prescriptions Prescriptions: Continued ibuprofen [Motrin IB] 200 mg capsule 800 mg PO Q6H PRN PRN (Reason: Pain) RF: 0 multivitamin tablet 1 tab PO QAM RF: 0 glucosamine-chondroitin 250 mg-200 mg tablet 250-200 mg tablet 2 tab PO QPC RF: 0 Ventolin HFA 90 mcg/actuation HFA aerosol inhaler 2 puff INHALATION Q6H Qty: 8.5 RF: 2 cyclobenzaprine 5 mg tablet 5 mg PO TID Qty: 90 RF: 1 pravastatin 40 mg tablet 40 mg PO QHS Qty: 90 RF: 1 hydrocodone-acetaminophen 10-325 mg tablet 1 tab PO 4X/DAY RF: 0 atenolol 50 mg tablet 40 mg PO DAILY RF: 0 levofloxacin 500 mg tablet 500 mg PO DAILY Qty: 10 RF: 0 trazodone 100 mg tablet 100 mg PO QHS PRN (Reason: insomnia) Qty: 90 RF: 1 venlafaxine 150 mg capsule,extended release 24hr 150 mg PO QHS Qty: 90 RF: 1 gabapentin 600 mg tablet 600 mg PO TID Qty: 90 RF: 1 pantoprazole 40 mg tablet,delayed release (DR/EC) 40 mg PO QAM Qty: 90 RF: 1 Referrals / Follow Up: Miguel Stewart DO [Primary Care Provider] - In 1 Week Sammy Stewart DO [STAFF PHYSICIAN] - In 1 Week Disposition Disposition (needs filled in before D/C Order can be placed): Home, Self Care
[2021-05-10] MEDS: levoFLOXacin IV 750 MG/150 ML BAG 100 MG IV (10:01)
[2021-05-10] MEDS: HYDROcodone Bitartrate/Apap 5/325 Tablet PO (10:01)
--- NOTE | 2021-05-11 11:35 | CASEMGMT ---
DEZ LOVE Discharge Follow Up Phone Call: DENAE: Amairani Strata: 3 Call Date: 05/11/21 Discharge Date: 05/10/21 Time of Call:1130 Duration:<1 min Admitting Dx: EMIL GARCES CM attempted to complete follow up phone call after recent hospitalization. Call forwarded to an unidentified voicemail. No message left.
[2021-05-11 13:32] LABS: Pathologist Comment/Body Fluid Reviewed
== END 2021-05-10 12:18 | disposition home or self-care (01) | DRG 193 ==
LOC: ED 13:45 → MS3 05-08 07:12
PROVIDERS: Internal Medicine Critical Care Medicine; Admitting Provider Internal Medicine; Emergency Provider Emergency Medicine; PCP Family Medicine; Referring Provider Internal Medicine; Visit Provider Internal Medicine
PROC: 0BJ08ZZ Inspection of Tracheobronchial Tree, Via Natural or Artificial Opening Endoscopic (ICD-10-PCS; CPT 31622; principal; 2021-05-10 06:15)
DX: J18.9 Pneumonia, unspecified organism (principal); E43 Unspecified severe protein-calorie malnutrition; G93.41 Metabolic encephalopathy; J44.0 Chronic obstructive pulmonary disease with (acute) lower respiratory infection; Z68.1 Body mass index [BMI] 19.9 or less, adult; I10 Essential (primary) hypertension; E78.2 Mixed hyperlipidemia; K21.9 Gastro-esophageal reflux disease without esophagitis; R09.02 Hypoxemia; R91.8 Other nonspecific abnormal finding of lung field; R63.4 Abnormal weight loss; R53.81 Other malaise; F32.9 Major depressive disorder, single episode, unspecified; F17.210 Nicotine dependence, cigarettes, uncomplicated; Z66 Do not resuscitate; Z79.899 Other long term (current) drug therapy; Z87.01 Personal history of pneumonia (recurrent); Z87.11 Personal history of peptic ulcer disease
CPT/HCPCS: 36415; 70450; 71045; 71046; 71250; 80048; 80053; 81001; 83605; 83735; 84484; 85025; 85610; 87015; 87040; 87070; 87086; 87116; 87205; 87206; 87252; 87426; 87449; 88108; 88305; 88312; 88313; 89050; 93005; 94640; 96361; 96374; 97110; 97116; 97162; 97166; 97530; 97535; 97802; 97803; 99251; 99283; 99285; 99406; J7030; J7120; A4216; G0463; J2405

== ENCOUNTER 2021-05-18 16:12 | Inpatient (IN) | payer MEDICARE, MEDICAID, SELFPAY ==
[2021-05-17 15:15] VITALS: BMI 20.1
[2021-05-18] VITALS (11 sets, daily range): BP systolic 83–126; BP diastolic 48–78; PULSE 62–96; RESP 14–18; TEMP 36.6–37.2; O2SAT 92–98; BMI 19.6; BMI 20.5
--- NOTE | 2021-05-18 16:30 | CT_ITS ---
STUDY: CT BRAIN WITHOUT CONTRAST REASON FOR EXAM: Male, 70 years old. syncope RADIATION DOSAGE (If Supplied By Facility): CTDIvol = ( 44.99 ) mGy, DLP = ( 796.11 ) mGycm TECHNIQUE: Transaxial CT imaging of the brain was performed without administration of intravenous contrast material. Individualized dose optimization techniques were used for this CT. COMPARISON: 05/05/2021. FINDINGS: Normal soft tissue structures. Normal calvarium. Calcification of cavernous carotids. Normal size ventricles and extra-axial spaces for the patient''s age. Mild periventricular white matter ischemic change.. Normal basal ganglia and thalami. Normal brainstem. Normal cerebellum. There is no intracranial hemorrhage. There are no findings of an acute ischemic infarction. Minor mucosal thickening of the ethmoid air cells. No significant change since prior study CT/Brain/Head without Contrast IMPRESSION: Mild periventricular white matter ischemic change. No evidence for acute bleed. If concern for acute infarct MRI recommended. Electronically Signed: Slick Howell MD at 17:23 EDT , Service support ,
--- NOTE | 2021-05-18 16:31 | EKG12_ITS ---
Test Reason : Blood Pressure : / mmHG Vent. Rate : 092 BPM Atrial Rate : 092 BPM P-R Int : 146 ms QRS Dur : 098 ms QT Int : 352 ms P-R-T Axes : 027 060 055 degrees QTc Int : 435 ms Sinus rhythm with marked sinus arrhythmia with frequent Premature ventricular complexes Otherwise normal ECG Confirmed by COURTNEY WILCOX, JULIET ([id number]), editor school photograph MIMI RAPHAEL ([id number]) on 05/22/2021 10:02:51 AM Referred By: NATHANIEL Confirmed By:JULIET VALDEZ MD
--- NOTE | 2021-05-18 16:32 | EDS_ITS ---
HPI History of Present Illness Chief Complaint: General Illness Detail of Chief Complaint: Syncope Informant: patient Narrative Narrative: Patient presents to the emergency department complaint of multiple syncopal episodes in the last several days. Patient states that he was admitted to the hospital a week ago for pneumonia and had bronchoscopy with biopsies. Patient had a an appointment for follow-up with the deposition reporter 2 days ago and prior to that appointment apparently had 2 syncopal episode. Patient had another syncopal episode yesterday. Patient saw his primary care physician yesterday and they were advised to get a pulse oximeter and the states that today his pulse ox has been is high is only 86% on room air. Patient had another syncopal episode today. Patient states that he oftentimes will get lightheaded and feel dizzy prior to passing out. Patient denies any chest pain. He denies any fever or cough. Patient does have history of COPD, hypertension, high cholesterol, GERD, rainouts, and history of peptic ulcer disease. Prior similar symptoms: Yes PFSH PFS Medical History (Updated 05/18/21 @ 19:[address] Festus Jenkins, ) Arthritis Chronic pain Depression GERD (gastroesophageal reflux disease) History of pneumonia History of stomach ulcers Hyperlipidemia Hypertension IBS (irritable bowel syndrome) Neuropathy Syncope Home Medications ibuprofen 200 mg capsule 800 mg PO Q6H PRN PRN 12/27/17 [History Last Taken Unknown] trazodone 100 mg tablet 100 mg PO QHS PRN #90 tab 12/14/20 [Rx Last Taken 05/17/21] albuterol sulfate 90 mcg/actuation aerosol inhaler 2 puff INHALATION Q6H #8.5 g 01/18/21 [Rx Last Taken 05/18/21] venlafaxine 150 mg capsule,extended release 24 hr 150 mg PO QHS #90 cap 02/15/21 [Rx Last Taken 05/17/21] pravastatin 40 mg tablet 40 mg PO QHS #90 tab 03/07/21 [Rx Last Taken 05/17/21] hydrocodone-acetaminophen 1 tab PO 4X/DAY 04/23/21 [History Last Taken 05/18/21] pantoprazole 40 mg tablet,delayed release 40 mg PO QAM #90 tab 04/26/21 [Rx Last Taken 05/18/21] atenolol 50 mg PO DAILY 05/05/21 [History Last Taken 05/18/21] levofloxacin 500 mg PO DAILY #10 tab 05/10/21 [Rx Last Taken 05/18/21] fluticasone propionate 50 mcg/actuation nasal spray,suspension 2 spray INTRANASAL DAILY #16 g 05/16/21 [Rx Last Taken 05/18/21] cyclobenzaprine 5 mg tablet 5 mg PO TID #90 tab 05/18/21 [Rx Last Taken 05/17/21] gabapentin 600 mg tablet 600 mg PO TID #90 tab 05/18/21 [Rx Last Taken 05/18/21] guaifenesin 1,200 mg PO Q12H 05/18/21 [History Last Taken 05/18/21] Allergy/AdvReac Type Severity Reaction Status Date / Time aspirin Allergy Severe bleeding Verified 05/18/21 16:13 Family History (Reviewed 05/16/21 @ 13:17 by Dorie Jeter [facility] DIRECTOR, [facility] DIRECTOR-C) Mother Myocardial infarction, Onset Age: 49 Depression Father Hypertension CVA (cerebral vascular accident), Onset Age: 49 Sister Thyroid disorder Uncle ulcers Surgical History (Reviewed 05/16/21 @ 13:17 by Dorie Jeter [facility] DIRECTOR, [facility] DIRECTOR-C) History of endoscopy Social History (Reviewed 05/16/21 @ 13:17 by Dorie Jeter [facility] DIRECTOR, [facility] DIRECTOR-C) Smoking Status: Current every day smoker tobacco type: cigars alcohol intake: never substance use type: does not use what type of physical activity do you participate in: other details: yard work, house work ROS ROS ED ROS Narrative Syncopal episodes and dizziness Constitutional Constitutional ED: Reports systems reviewed and no addt'l complaints, except as documented; Denies body ache(s), change in weight or chills Eyes Eyes: Denies acute decrease in peripheral vision, change in vision, double vision or loss of vision ENT ENT ED: Reports none; Denies ear pain, lip swelling, loss taste/smell, neck pain, otalgia or sore throat Cardiovascular Cardiovascular: Reports none; Denies abdominal pain, chest pain with activity, leg edema, lightheadedness, palpitations, rapid heart rate or syncope Respiratory/Chest Respiratory/Chest: Reports none; Denies change in mental status, dry cough, dyspnea, hemoptysis, shortness of breath at rest or shortness of breath with exertion Gastrointestinal Gastrointestinal: Reports none; Denies abdominal pain, change in stool character, diarrhea, hematemesis, hematochezia, melena, rectal bleeding or vomiting Genitourinary Genitourinary ED: Reports none; Denies abdominal discomfort, anuria, dysuria, genital pain or polyuria Musculoskeletal Musculoskeletal: Reports none; Denies arthralgias, back pain, difficulty [place], extremity pain, muscle weakness or myalgias Integumentary Reports none; Denies abscess or rash Neurologic Neurologic: Reports none; Denies abnormal gait, confusion, focal weakness, frequent falls, headache(s), loss of vision, numbness, paresthesias, radicular pain, vertigo or weakness Psychiatric Psychiatric: Reports systems reviewed and no addt'l complaints, except as documented and none; Denies behavioral changes, confusion, difficulty concentrating, hallucinations, suicidal ideation, tactile hallucinations or visual hallucinations Endocrine Endocrinology: Denies none, cold intolerance, excessive sweating, fatigue or heat intolerance Hematologic/Lymphatic Hematologic/Lymphatic: Reports none; Denies anemia, easy bleeding or easy bruising Allergic/Immunologic Allergic/Immunologic ED: Denies as per HPI, none, lip swelling, mouth swelling, throat swelling, tongue swelling or hives EXAM Physical Exam Const Vital Signs: 05/18/21 16:13 05/18/21 16:43 05/18/21 17:18 Temperature 98.3 F Temperature Source Temporal Pulse Rate 94 96 78 Pulse Rate [Lying] Pulse Rate [Sitting] Pulse Rate [Standing] Respiratory Rate 18 15 16 Respiratory Effort Normal Respiratory Pattern Normal Blood Pressure 83/69 L 99/49 L 106/78 Blood Pressure [Lying] Blood Pressure [Sitting] Blood Pressure [Standing] Blood Pressure Mean 73 65 87 Blood Pressure Mean [Lying] Blood Pressure Mean [Sitting] Blood Pressure Mean [Standing] Pulse Ox 98 97 98 Oxygen Delivery Method Room Air Room Air Room Air 05/18/21 17:48 05/18/21 17:56 05/18/21 18:11 Temperature 98.2 F Temperature Source Temporal Pulse Rate 68 67 Pulse Rate [Lying] 68 Pulse Rate [Sitting] 70 Pulse Rate [Standing] 69 Respiratory Rate 18 14 Respiratory Effort Respiratory Pattern Blood Pressure 110/66 112/56 L Blood Pressure [Lying] 118/58 L Blood Pressure [Sitting] 113/62 Blood Pressure [Standing] 84/48 L Blood Pressure Mean 80 74 Blood Pressure Mean [Lying] 78 Blood Pressure Mean [Sitting] 79 Blood Pressure Mean [Standing] 60 Pulse Ox 95 97 Oxygen Delivery Method Room Air Room Air 05/18/21 19:02 Temperature 97.9 F Temperature Source Temporal Pulse Rate 68 Pulse Rate [Lying] Pulse Rate [Sitting] Pulse Rate [Standing] Respiratory Rate 18 Respiratory Effort Respiratory Pattern Blood Pressure 103/51 L Blood Pressure [Lying] Blood Pressure [Sitting] Blood Pressure [Standing] Blood Pressure Mean 68 Blood Pressure Mean [Lying] Blood Pressure Mean [Sitting] Blood Pressure Mean [Standing] Pulse Ox 96 Oxygen Delivery Method Room Air Positive well nourished and well developed General Appearance ED: well developed and NAD HEENT Reports TM's clear and moist mucous membranes normocephalic and atraumatic; Negative for trauma or tenderness Tympanic Membrane ED: Yes TM's clear Eyes PERRL and EOMs intact bilaterally General Eye ED: Negative for pale conjunctiva or scleral icterus Neck no lymphadenopathy, supple and no JVD General: Negative for tenderness Chest Wall inspection of chest normal and palpation of chest normal Chest: Negative for tenderness Resp normal respiratory effort and clear to auscultation bilaterally Effort and Inspection: Negative for respiratory distress or pain with movement Auscultation: Negative for rhonchi, wheezes or diminished lung sounds Cardio regular rate, regular rhythm, S1 normal heart sound, S2 normal heart sound and no murmurs Peripheral Pulses: pulses 2+ throughout GI normal to inspection, nondistended, normoactive bowel sounds, soft to palpation, non-tender, non-distended and no masses Back/Spine no CVA tenderness and no thoracic nor lumbar tenderness Extremity normal to inspection General Extremety ED: Negative for edema General Extremity: Negative for edema Neuro oriented x3, CN's II-XII intact bilaterally, no sensory deficits noted and gait normal Sensorium / Orientation: awake, alert, oriented to person, oriented to place and oriented to time Motor Exam: strength 5/5 throughout and strength abnormal Psych mental status grossly normal Skin no rashes or lesions noted and no wounds MDM MDM MDM Narrative Medical decision making narrative: Patient case discussed with hospitalist will evaluate patient for admission. CT did not show PE but does have a large left effusion and consolidation. Patient was started empirically on Zosyn and vancomycin. Patient also currently on Levaquin. Lab Data Attestation: I reviewed the patient's lab results. Labs: Laboratory Results - last 24 hr 05/18/21 05/18/21 05/18/21 16:55 16:55 16:55 WBC 26.3 H RBC 3.34 L Hgb 11.8 L Hct 36.0 L MCV 107.8 H MCH 35.3 H MCHC 32.8 RDW Std Deviation 50.1 H RDW Coeff of Issa 12.6 Plt Count 516 H MPV 9.2 Immature Gran % (Auto) 1.000 H Neut % (Auto) 91.8 H Lymph % (Auto) 2.3 L Wood % (Auto) 4.4 Eos % (Auto) 0.3 Baso % (Auto) 0.2 Absolute Neuts (auto) 24.1 H Absolute Lymphs (auto) 0.61 L Nucleated RBC % 0 Differential Comment SEE COMMENT Diff Path Review May foll Platelet Estimate MOD INC RBC Morphology N CHROM Anisocytosis 1+ Macrocytosis 1+ Tear Drop Cells RARE Ovalocytes RARE D-Dimer Quant (PE/DVT) 2.67 H* Sodium 133 L Potassium 3.9 Chloride 98 Carbon Dioxide 28.0 Anion Gap 7 BUN 27 H Creatinine 1.00 Estim Creat Clear Calc 63.94 Est GFR (MDRD) Af Amer 95 Est GFR (MDRD) Non-Af 79 BUN/Creatinine Ratio 27.1 H Glucose 84 Lactic Acid Calcium 9.9 Troponin I High Sens 6.3 05/18/21 18:07 WBC RBC Hgb Hct MCV MCH MCHC RDW Std Deviation RDW Coeff of Issa Plt Count MPV Immature Gran % (Auto) Neut % (Auto) Lymph % (Auto) Wood % (Auto) Eos % (Auto) Baso % (Auto) Absolute Neuts (auto) Absolute Lymphs (auto) Nucleated RBC % Differential Comment Diff Path Review Platelet Estimate RBC Morphology Anisocytosis Macrocytosis Tear Drop Cells Ovalocytes D-Dimer Quant (PE/DVT) Sodium Potassium Chloride Carbon Dioxide Anion Gap BUN Creatinine Estim Creat Clear Calc Est GFR (MDRD) Af Amer Est GFR (MDRD) Non-Af BUN/Creatinine Ratio Glucose Lactic Acid 1.2 Calcium Troponin I High Sens Radiography Chest X-Ray - ED: 1 View Diagnostic Testing: Radiology Impression Brain CT 05/18/21 16:30 IMPRESSION: Mild periventricular white matter ischemic change. No evidence for acute bleed. If concern for acute infarct MRI recommended. Electronically Signed: Slick Howell MD at 17:23 EDT , Service support , Chest X-Ray 05/18/21 17:07 IMPRESSION: Moderate-sized left pleural effusion with left lower lobe consolidation. Electronically Signed: Slick Howell MD at 17:25 EDT , Service support , Chest CTA 05/18/21 17:36 IMPRESSION: Large left pleural effusion with consolidation of left lower lobe possibly due to pneumonia however clinical correlation is recommended No evidence for pulmonary embolus Electronically Signed: Slick Howell MD at 18:54 EDT , Service support , 1 view chest x-ray obtained interpreted by myself as left pleural effusion with increased markings suspicious for pneumonia. Radiology read it as left-sided effusion with left lower lobe consolidation EKG Initial EKG: Attestation: I personally reviewed and interpreted this EKG as follows: Comments: Sinus rhythm with a ventricular rate of 92 bpm with occasional P VC's. Discharge Plan Triage Chief Complaint: General Illness ED Provider: Festus Jenkins Dx/Rx/DC Orders Clinical Impression: Syncope, Orthostatic hypotension, Pleural effusion on left, Pneumonia Prescriptions: No Action ibuprofen [Motrin IB] 200 mg capsule 800 mg PO Q6H PRN PRN (Reason: Pain) RF: 0 Ventolin HFA 90 mcg/actuation HFA aerosol inhaler 2 puff INHALATION Q6H Qty: 8.5 RF: 2 pravastatin 40 mg tablet 40 mg PO QHS Qty: 90 RF: 1 fluticasone propionate 50 mcg/actuation spray,suspension 2 spray intranasal DAILY Qty: 16 RF: 3 hydrocodone-acetaminophen 10-325 mg tablet 1 tab PO 4X/DAY RF: 0 atenolol 50 mg tablet 50 mg PO DAILY RF: 0 levofloxacin 500 mg tablet 500 mg PO DAILY Qty: 10 RF: 0 guaifenesin 1,200 mg tablet extended release 12hr 1,200 mg PO Q12H RF: 0 trazodone 100 mg tablet 100 mg PO QHS PRN (Reason: insomnia) Qty: 90 RF: 1 venlafaxine 150 mg capsule,extended release 24hr 150 mg PO QHS Qty: 90 RF: 1 pantoprazole 40 mg tablet,delayed release (DR/EC) 40 mg PO QAM Qty: 90 RF: 1 cyclobenzaprine 5 mg tablet 5 mg PO TID Qty: 90 RF: 1 gabapentin 600 mg tablet 600 mg PO TID Qty: 90 RF: 1 Primary Care Provider: Miguel Stewart Referrals: Miguel Stewart, [Primary Care Provider] - Disposition Disposition: Acute Care Hospital [facility]
--- NOTE | 2021-05-18 17:07 | RAD_ITS ---
STUDY: X-RAY CHEST REASON FOR EXAM: Male, 70 years old. syncope TECHNIQUE: AP portable COMPARISON: 05/07/2021 FINDINGS: There is moderate-sized left pleural effusion with consolidation of the left lower lobe.. Normal size heart. Normal mediastinum and francisco. Normal visualized pulmonary arteries. Normal visualized aortic arch and descending thoracic aorta. Dorsal spine demonstrates degenerative change.. Normal visualized ribs, clavicles, and shoulders. Nonspecific bowel distention in the left upper quadrant. RAD/Chest 1 View (Portable) IMPRESSION: Moderate-sized left pleural effusion with left lower lobe consolidation. Electronically Signed: Slick Howell MD at 17:25 EDT , Service support ,
[2021-05-18 17:15] LABS: Absolute Lymphocyte Count 0.61 X10^3/uL (0.83-4.51); Absolute Neutrophil Count 24.1 X10^3/uL (2.0-7.7); Basophil# 0.06 X10^3/uL; Basophil% 0.2 % (0-1); Eosinophil# 0.07 X10^3/uL; Eosinophils% 0.3 % (0-5); Hemoglobin 11.8 g/dL (13.0-16.5); Lymphocyte # 0.61 X10^3/ul (0.83-4.51); Lymphocyte % 2.3 % (19-41); Mean Corp Hgb Conc 32.8 g/dL (32-36); Mean Corpuscular Hgb 35.3 pg (27.0-32.0); Mean Corpuscular Volume 107.8 fL (80-94); Mean Platelet Vol. 9.2 fl (6.2-12.0); Monocyte# 1.15 X10^3/uL; Monocyte% 4.4 % (0-10); NRBC Flagged by Analyzer 0 % (0-5); Neutrophil # 24.14 X10^3/uL (2.7-7.7); Neutrophil % 91.8 % (47-70); POSITIVE DIFFERENTIAL YES; Platelet Count 516 K/mm3 (150-450); RBC Distribution Width CV 12.6 % (11.6-14.6); RBC Distribution Width SD 50.1 fl (35.1-43.9); Red Blood Count 3.34 M/mm3 (4.6-6.2); White Blood Count 26.3 K/mm3 (4.4-11.0)
[2021-05-18 17:17] LABS: Differential Indicated SCAN CRITERIA MET
[2021-05-18 17:33] LABS: D-Dimer Quantitative (DVT/PE) 2.67 FEU/ug/m (0.27-0.49)
--- NOTE | 2021-05-18 17:36 | CT_ITS ---
STUDY: CTA CHEST REASON FOR EXAM: Male, 70 years old. syncope RADIATION DOSAGE (If Supplied By Facility): CTDIvol = ( 8.46 ) mGy, DLP = ( 245.20 ) mGycm TECHNIQUE: The examination was performed with the intravenous administration of IV 100mL [id number]-370. Post-processing of the angiographic images was performed, with multiplanar reformation and 3D reconstruction. Individualized dose optimization techniques were used for this CT. COMPARISON: None. FINDINGS: Normal enhancement of the main pulmonary artery and right and left pulmonary arteries. Normal enhancement of the bilateral peripheral pulmonary arteries. There is no demonstrated pulmonary embolism. Mild atherosclerotic changes of the aorta without evidence for aneurysm. There is no demonstrated aortic dissection. The heart is mildly enlarged and there is multivessel coronary artery calcification.. There is a moderate-sized pericardial effusion. Normal mediastinum. Normal hilar regions. Normal visualized trachea and bronchi. The lungs are well expanded. There is a large left pleural effusion and consolidation of left lower lobe with air bronchograms. Right lung is clear Normal chest wall structures. Dorsal spine demonstrates degenerative change Normal visualized upper abdomen. CT/CTA Chest W/WO Contrast IMPRESSION: Large left pleural effusion with consolidation of left lower lobe possibly due to pneumonia however clinical correlation is recommended No evidence for pulmonary embolus Electronically Signed: Slick Howell MD at 18:54 EDT , Service support ,
[2021-05-18 17:44] LABS: Anion Gap 7 (5-15); BUN 27 mg/dL (7-18); BUN/Creat Ratio 27.1 RATIO (10-20); Calcium,Total 9.9 mg/dL (8.5-10.1); Chloride 98 mmol/L (98-107); EST Glomerular Filtration Rate 79 mL/min (>60); Est Glom Filt Rate - Afr Amer 95 mL/min (>60); Estimated Creatinine Clearance 63.94 ml/min; Glucose 84 mg/dL (74-106); Potassium 3.9 mmol/L (3.5-5.1); Sodium Level 133 mmol/L (136-145); Troponin-I HS 6.3 pg/mL (3.0-78.5)
[2021-05-18 17:53] LABS: Anisocytosis 1+; Macrocytosis 1+; Platelet Estimate MOD INC (ADEQ); Red Cell Morphology N CHROM NORMAL (NORM C&C)
[2021-05-18 17:54] LABS: Ovalocyte RARE; Tear Drop Cell RARE
[2021-05-18 18:40] LABS: Lactic Acid 1.2 mmol/L (0.4-1.9)
--- NOTE | 2021-05-18 19:22 | HP.PCM.HOS_ITS ---
HPI - General General Date of Admission: 05/18/21 Date of Service: 05/18/21 Chief Complaint: Recurrent syncope HPI Narrative PEDRO ALBRECHT, is a 70 M who presents with recurrent syncopal episodes since his discharge. Patient was discharged from the hospital on 05/10/21 for community- acquired pneumonia with possible lung mass. He underwent bronchoscopy and that hospital stay and findings showed copious mucopurulent thick secretions. No endobronchial lesions were identified. Patient stated that since his discharge he has had recurrent syncopal episodes. He has had about 4 episodes in total. The last one was this morning. He had followed up with pulmonology. His syncopal episodes are usually when he is getting up from sitting or he is standing. He denied any fever or chills or worsening cough or chest discomfort. He has left-sided chest discomfort, worse with deep breathing. He denied any dizziness or palpitations. His blood pressure in the ED was 83/67. His WBC count is elevated at 26.3. Hemoglobin is 11.8. Platelet count is 516. D-dimer is elevated at 2.67. Brain CT is unremarkable. Chest x-ray shows moderately sized left pleural effusion with left lower lobe consolidation. CTA of the chest was negative for acute PE. Showed large left pleural effusion with consolidation of the left lower lobe secondary to pneumonia. [facility] Medical History Arthritis Chronic pain Depression GERD (gastroesophageal reflux disease) History of pneumonia History of stomach ulcers Hyperlipidemia Hypertension IBS (irritable bowel syndrome) Kidney stones Neuropathy Smoker Syncope Home Medications ibuprofen 200 mg capsule 800 mg PO Q6H PRN PRN 12/27/17 [History Last Taken Unknown] trazodone 100 mg tablet 100 mg PO QHS PRN #90 tab 12/14/20 [Rx Last Taken 05/17/21] albuterol sulfate 90 mcg/actuation aerosol inhaler 2 puff INHALATION Q6H #8.5 g 01/18/21 [Rx Last Taken 05/18/21] venlafaxine 150 mg capsule,extended release 24 hr 150 mg PO QHS #90 cap 02/15/21 [Rx Last Taken 05/17/21] pravastatin 40 mg tablet 40 mg PO QHS #90 tab 03/07/21 [Rx Last Taken 05/17/21] hydrocodone-acetaminophen 1 tab PO 4X/DAY 04/23/21 [History Last Taken 05/18/21] pantoprazole 40 mg tablet,delayed release 40 mg PO QAM #90 tab 04/26/21 [Rx Last Taken 05/18/21] atenolol 50 mg PO DAILY 05/05/21 [History Last Taken 05/18/21] levofloxacin 500 mg PO DAILY #10 tab 05/10/21 [Rx Last Taken 05/18/21] fluticasone propionate 50 mcg/actuation nasal spray,suspension 2 spray INTRANASAL DAILY #16 g 05/16/21 [Rx Last Taken 05/18/21] cyclobenzaprine 5 mg tablet 5 mg PO TID #90 tab 05/18/21 [Rx Last Taken 05/17/21] gabapentin 600 mg tablet 600 mg PO TID #90 tab 05/18/21 [Rx Last Taken 05/18/21] guaifenesin 1,200 mg PO Q12H 05/18/21 [History Last Taken 05/18/21] Allergy/AdvReac Type Severity Reaction Status Date / Time aspirin Allergy Severe bleeding Verified 05/18/21 16:13 Family History Mother Myocardial infarction, Onset Age: 49 Depression Father Hypertension CVA (cerebral vascular accident), Onset Age: 49 Sister Thyroid disorder Uncle ulcers Surgical History History of endoscopy Social History (Reviewed 05/16/21 @ 13:17 by Dorie Jeter UPHOLSTERER LIMOUSINE AND HEARSE, UPHOLSTERER LIMOUSINE AND HEARSE-C) Smoking Status: Current every day smoker tobacco type: cigars alcohol intake: never substance use type: does not use what type of physical activity do you participate in: other details: yard work, house work ROS ROS Narrative Constitutional: Reports: Malaise, Weakness, Fatigue. Denies: Anorexia, Chills, Fever, Night Sweats, Weight Change Eyes: Denies: Blurred vision, Cataracts, Conjunctivae Inflammation, Pain, Redness, Vision Change HEENT: Denies: Difficulty Hearing, Difficulty Swallowing, Head Aches, Hearing Changes, Sinus Congestion, Sinus Drainage Cardiovascular: Admits to recurrent syncope, left-sided chest discomfort, denies orthopnea, Palpitations Respiratory: Admits to cough, Shortness of breath at rest, Sputum production Gastrointestinal: Denies: Abdominal Pain, Nausea, Vomiting Genitourinary: Denies: Dysuria Musculoskeletal: Denies: Joint Pain, Joint stiffness, Joint swelling, Joint Tenderness Skin: Denies: Rash, Wounds Neurological: Admits to recurrent syncope denies: Numbness, Tingling, Focal weakness Vital Signs Vital Signs Vital Signs: 05/18/21 16:13 05/18/21 16:43 05/18/21 17:18 Temperature 98.3 F Temperature Source Temporal Pulse Rate 94 96 78 Pulse Rate [Lying] Pulse Rate [Sitting] Pulse Rate [Standing] Respiratory Rate 18 15 16 Respiratory Effort Normal Respiratory Pattern Normal Blood Pressure 83/69 L 99/49 L 106/78 Blood Pressure [Lying] Blood Pressure [Sitting] Blood Pressure [Standing] Blood Pressure Mean 73 65 87 Blood Pressure Mean [Lying] Blood Pressure Mean [Sitting] Blood Pressure Mean [Standing] Pulse Ox 98 97 98 Oxygen Delivery Method Room Air Room Air Room Air 05/18/21 17:48 05/18/21 17:56 05/18/21 18:11 Temperature 98.2 F Temperature Source Temporal Pulse Rate 68 67 Pulse Rate [Lying] 68 Pulse Rate [Sitting] 70 Pulse Rate [Standing] 69 Respiratory Rate 18 14 Respiratory Effort Respiratory Pattern Blood Pressure 110/66 112/56 L Blood Pressure [Lying] 118/58 L Blood Pressure [Sitting] 113/62 Blood Pressure [Standing] 84/48 L Blood Pressure Mean 80 74 Blood Pressure Mean [Lying] 78 Blood Pressure Mean [Sitting] 79 Blood Pressure Mean [Standing] 60 Pulse Ox 95 97 Oxygen Delivery Method Room Air Room Air 05/18/21 19:02 Temperature 97.9 F Temperature Source Temporal Pulse Rate 68 Pulse Rate [Lying] Pulse Rate [Sitting] Pulse Rate [Standing] Respiratory Rate 18 Respiratory Effort Respiratory Pattern Blood Pressure 103/51 L Blood Pressure [Lying] Blood Pressure [Sitting] Blood Pressure [Standing] Blood Pressure Mean 68 Blood Pressure Mean [Lying] Blood Pressure Mean [Sitting] Blood Pressure Mean [Standing] Pulse Ox 96 Oxygen Delivery Method Room Air Weight Weight: 65.771 kg Body Mass Index (BMI) 19.6 Physical Exam Narrative Physical exam: General: Alert, Oriented x3, Cooperative, No apparent distress, cachectic HEENT: Atraumatic Oral: Moist Mucosa Neck: Supple Lungs: Diminished especially in the left middle and lower lobes, coarse crackles heard Cardiovascular: HS I+II, regular, no murmurs Abdomen: Bowel Sounds Present, Soft, Non Tender Extremities: No edema Skin: Dressing over the right temporal region and over the right elbow Neurological: Grossly intact Psych/Mental Status: Appropriate Results Lab / Micro Data Result Diagrams: 05/18/21 16:55 05/18/21 16:55 Labs: Laboratory Results - last 24 hr 05/18/21 16:55: WBC 26.3 H, RBC 3.34 L, Hgb 11.8 L, Hct 36.0 L, MCV 107.8 H, MCH 35.3 H, MCHC 32.8, RDW Std Deviation 50.1 H, RDW Coeff of Issa 12.6, Plt Count 516 H, MPV 9.2, Immature Gran % (Auto) 1.000 H, Neut % (Auto) 91.8 H, Lymph % (Auto) 2.3 L, [place] % (Auto) 4.4, Eos % (Auto) 0.3, Baso % (Auto) 0.2, Absolute Neuts (auto) 24.1 H, Absolute Lymphs (auto) 0.61 L, Nucleated RBC % 0, Differential Comment SEE COMMENT, Diff Path Review February cameron, Platelet Estimate MOD INC, RBC Morphology N CHROM, Anisocytosis 1+, Macrocytosis 1+, Tear Drop Cells RARE, Ovalocytes RARE 05/18/21 16:55: D-Dimer Quant (PE/DVT) 2.67 H* 05/18/21 16:55: Sodium 133 L, Potassium 3.9, Chloride 98, Carbon Dioxide 28.0, Anion Gap 7, BUN 27 H, Creatinine 1.00, Estim Creat Clear Calc 63.94, Est GFR (MDRD) Af Amer 95, Est GFR (MDRD) Non-Af 79, BUN/Creatinine Ratio 27.1 H, Glucose 84, Calcium 9.9, Troponin I High Sens 6.3 05/18/21 18:07: Lactic Acid 1.[address] 05/18/21 16:30 IMPRESSION: Mild periventricular white matter ischemic change. No evidence for acute bleed. If concern for acute infarct MRI recommended. Electronically Signed: Slick Howell MD at 17:23 EDT , Service support , Chest X-Ray 05/18/21 17:07 IMPRESSION: Moderate-sized left pleural effusion with left lower lobe consolidation. Electronically Signed: Slick Howell MD at 17:25 EDT , Service support , Chest CTA 05/18/21 17:36 IMPRESSION: Large left pleural effusion with consolidation of left lower lobe possibly due to pneumonia however clinical correlation is recommended No evidence for pulmonary embolus Electronically Signed: Slick Howell MD at 18:54 EDT , Service support , Assessment & Plan Assessment/Plan (1) Syncope: (2) Orthostatic hypotension: (3) Pleural effusion on left: (4) Pneumonia: (5) Abnormal chest CT: (6) COPD (chronic obstructive pulmonary disease): QUALIFIERS: COPD type: emphysema Emphysema type: unspecified Qualified Code(s): J43.9 - Emphysema, unspecified PLAN: 1. Acute recurrent syncope secondary to orthostatic hypotension/elaine ility Patient was hypotensive on admission.EKG shows normal sinus rhythm with PVCs D-dimer elevated; acute PE ruled out with negative CTA of the chest Hypotension likely secondary to poor p.o. intake and probably medication side effect?patient is on atenolol We will hold atenolol but monitor for rebound tachycardia Hold also gabapentin and Flexeril We will continue on IV fluids, recheck orthostatic vitals We will check magnesium and phosphorus levels 2. Acute large left pleural effusion secondary to left lower lobe pneumonia Patient recently discharged on antibiotics for left lower lobe community- acquired pneumonia. He has 1 tablet of Levaquin left. Started on IV Zosyn and vancomycin; will continue same Urinary Legionella and streptococcal antigen, breathing treatments, pulmonology consult INR in a.m, ultrasound-guided thoracocentesis by IR in a.m. 3. Severe protein calorie malnutrition/failure to thrive, BMI is 20.5 Nutrition consulted 4. Nicotine dependence, continues to smoke, patient states he smokes less Continue nicotine replacement 5. Rest of chronic medical conditions including COPD?not in acute exacerbation, chronic back pain-continue on home hydrocodone I discussed and explained in details the various types of CODE STATUS-full code, DNR CCA, DNR CC. Patient chose DNR CCA, no intubation. He stated that he also has a living will and he wants his body donated to the [facility] for research. Time spent discussing CODE STATUS 17 minutes Charges/Coding Visit Charges Inpatient E&M: 10545 Init Hosp L3 Procedures Hospitalists Procedures: 12439 Advncd Care Plan 30 Min
[2021-05-18] MEDS: 0.9% Normal Saline 1,000 ML 150 ML IV (19:51)
[2021-05-18] MEDS: Vancomycin IV 1,000 MG/200 ML BAG 200 MG IV (19:51)
[2021-05-18 20:00] LABS: Magnesium 1.8 mg/dL (1.6-2.6); Phosphorus 3.2 mg/dL (2.5-4.9)
[2021-05-18] MEDS: Venlafaxine XR 150 MG Capsule PO (22:51)
[2021-05-18] MEDS: guaiFENesin 1,200 MG Tablet 1200 MG PO (22:51)
[2021-05-18] MEDS: Pravastatin 40 MG Tablet PO (22:51)
[2021-05-18] MEDS: HYDROcodone Bitartrate/Apap 5/325 Tablet PO (22:54)
[2021-05-18] MEDS: traZODone 100 MG Tablet PO (22:54)
[2021-05-18] MEDS: Ipratropium 0.5 MG/2.5 ML SOLUTION INHALATION (23:05)
[2021-05-19] VITALS (15 sets, daily range): BP systolic 89–119; BP diastolic 46–73; PULSE 61–80; RESP 15–18; TEMP 36.4–37.3; O2SAT 93–97
--- NOTE | 2021-05-19 | FLU_PTH ---
PATIENT: PEDRO ALBRECHT LOC: [facility] U#:[id number] AGE/SX: 70/M ROOM: [facility] RE05/18/[address]: Dr. Brody Sandoval DO : 1950 BED: 1 DIS: 05/19/2021 SPEC #: [id number] RECD: 05/19/21 10:09 STATUS: MARCELINO REQ #: [id number] NYASIA: 05/19/21 00:[address]: Brody Sandoval DEPT: CYTOLOGY RECD BY: Sandi Kaplan ENTERED: 05/19/21 11:55 SP TYPE: Fluid OTHR DR: MD Dr. Wei Alejandra MD Dr. Douglas R Brown, DO Dr. Derek Brown, DO Christina Muller, CRM ADMINISTRATOR-C Tissues: THORACIC FLUID Procedures: Special Stain Group II Surgery Specimen Level IV Cytospin Fluid HEADER OPERATION: Ultrasound-guided left thoracentesis PRE-OP DIAGNOSIS: Pleural effusion TISSUE SUBMITTED: Thoracentesis fluid for cytology DIAGNOSIS CYTOLOGY Thoracentesis fluid for cytology (cytospin and cell block): Negative for malignant cells. Acute inflammation. See comment. SJ:haily 05/22/2021 COMMENT Please make reference to previous specimen ([id number]) bronchoalveolar lavage, left lower lung with diagnosis of ?negative for malignant cells, acute inflammation and negative for fungal organisms.? Clinical correlation and appropriate follow up are necessary. CYTOLOGY STUDY Slides are reviewed. CYTOLOGY GROSS Received is 90 ml of yellow cloudy fluid labeled with the patient's name and and designated per the requisition as thoracentesis. Submitted for cytology preparation including cell block. / haily 05/19/2021 TC:2 CPT: 63033, 17685
[2021-05-19] MEDS: 0.9% Normal Saline 1,000 ML 150 ML IV ×3 (00:55→12:07)
[2021-05-19] MEDS: Ipratropium 0.5 MG/2.5 ML SOLUTION INHALATION ×4 (03:40→19:24)
[2021-05-19 05:38] LABS: Absolute Lymphocyte Count 0.56 X10^3/uL (0.83-4.51); Basophil# 0.04 X10^3/uL; Basophil% 0.2 % (0-1); Eosinophil# 0.24 X10^3/uL; Eosinophils% 1.3 % (0-5); Hematocrit 29.4 % (40-54); Hemoglobin 9.5 g/dL (13.0-16.5); Lymphocyte # 0.56 X10^3/ul (0.83-4.51); Lymphocyte % 3.1 % (19-41); Mean Corp Hgb Conc 32.3 g/dL (32-36); Mean Corpuscular Hgb 34.8 pg (27.0-32.0); Mean Corpuscular Volume 107.7 fL (80-94); Monocyte# 0.91 X10^3/uL; Monocyte% 5.1 % (0-10); NRBC Flagged by Analyzer 0 % (0-5); Neutrophil # 16.02 X10^3/uL (2.7-7.7); Neutrophil % 89.6 % (47-70); POSITIVE DIFFERENTIAL YES; Platelet Count 382 K/mm3 (150-450); RBC Distribution Width CV 12.8 % (11.6-14.6); RBC Distribution Width SD 50.4 fl (35.1-43.9); Red Blood Count 2.73 M/mm3 (4.6-6.2); White Blood Count 17.9 K/mm3 (4.4-11.0)
[2021-05-19 05:47] LABS: International Normalized Ratio 1.3; Prothrombin Time (Protime)PT. 15.8 SECONDS (11.7-14.9)
[2021-05-19 06:07] LABS: ALB/GLOB Ratio 0.5 RATIO (0.9-2.4); Globulin 3.9 g/dL (2.2-4.2); LDH 190 U/L (87-241); Protein, Total 5.8 g/dL (6.4-8.2)
[2021-05-19 06:08] LABS: Differential Indicated SCAN CRITERIA MET
[2021-05-19 06:10] LABS: ALB/GLOB Ratio 0.5 RATIO (0.9-2.4); AST(SGOT) 17 U/L (15-37); Alanine Aminotransfer ALT/SGPT 20 U/L (16-61); Albumin, Serum 1.9 g/dL (3.2-5.0); Alkaline Phosphatase 76 U/L (45-117); Anion Gap 3 (5-15); BUN 15 mg/dL (7-18); BUN/Creat Ratio 26.2 RATIO (10-20); Calcium,Total 9.1 mg/dL (8.5-10.1); Chloride 104 mmol/L (98-107); Creatinine, Serum 0.57 mg/dL (0.70-1.30); EST Glomerular Filtration Rate 149 mL/min (>60); Est Glom Filt Rate - Afr Amer 181 mL/min (>60); Globulin 3.8 g/dL (2.2-4.2); Glucose 88 mg/dL (74-106); Magnesium 2.1 mg/dL (1.6-2.6); Potassium 3.8 mmol/L (3.5-5.1); Protein, Total 5.7 g/dL (6.4-8.2); Sodium Level 136 mmol/L (136-145)
--- NOTE | 2021-05-19 08:29 | EX.PCM.CONCC ---
Assessment & Plan Assessment/Plan (1) Pleural effusion on left: (2) Pneumonia: (3) Unexplained weight loss: PLAN: RECOMMENDATIONS: 1. Perform diagnostic and therapeutic thoracentesis 2. Initiate broad-spectrum antibiotics 3. No plans for bronchoscopy at this time 4. Initiate Acapella for pulmonary toileting 5. Increase activity as tolerated 6. Dietitian to evaluate p.o. intake 7. Further recommendations following diagnostic thoracentesis results IMPRESSIONS: 1. New left pleural effusion Patient with recent concern of endobronchial mass. Bronchoscopy did not show a mass, but did have significantly purulent material with 100% neutrophils. Unfortunately, culture was read as normal respiratory sayda. High clinical suspicion for parapneumonic versus empyema. Labs will be added to thoracentesis. No plans for bronchoscopy at this time as this was recently completed. Patient would benefit from initiation of pulmonary toileting techniques. Would recommend broad-spectrum antibiotics. 2. Chronic tobacco dependency with questionable obstructive lung disease Patient appears to be precontemplative to any smoking cessation counseling. Patient would benefit from outpatient pulmonary function test for quantification clarification of lung function. Unclear if presenting hypoxia is secondary to mucous plugging, pleural effusion or a chronic respiratory decline. 3. History of peptic ulcer disease/unintentional weight loss/hypertension/hyperlipidemia Complicates care, management, recovery and prognosis. Continue home medications as indicated. HPI Consult Data Date of Consult: 05/19/21 HPI Narrative HPI Narrative: PEDRO ALBRECHT is a 70 M, with past medical history listed below, who presents to [facility] on 05/18/2021 secondary to recurrent syncope. Patient reportedly was recently hospitalized and evaluated by Dr. Stewart. Patient had a bronchoscopy showing significant purulent material, but cultures were negative. Patient reportedly was discharged home on antibiotics and was doing okay until he started to develop syncopal episodes. Patient had a pulse oximeter and was noted to be 86% on room air. Patient did report presyncopal symptoms of lightheadedness and dizziness prior to passing out. No chest pain, fever or chills have been reported. In the ER, patient was afebrile, but hypotensive at 83/69. Patient was saturating well at 98% on room air. Patient was noted to be orthostatic positive and laboratory work-up showed a leukocytosis of 26.3, hemoglobin of 11.8 and a D-dimer of 2.67. Chemistries were relatively unremarkable. Lactate was normal at 1.2. Chest x-ray showed a moderate left-sided pleural effusion with left lower lobe consolidation. This was subsequently followed by a CTA of the chest showing no pulmonary embolism, but large left pleural effusion with left lower lobe compressive atelectasis. The patient was admitted to the floor for further evaluation. On my evaluation, patient was subjectively feeling slightly improved compared to previous. Patient denies any current chest pain, dental pain, nausea or vomiting. Patient does report he has had a significant weight loss, but attributed this more to his false teeth not allowing him to eat more than any other possibility. Patient does have an extensive smoking history but otherwise does not report anything different than what was noted on Dr. Stewart's recent hospitalization consultation. Documentation from previous hospitalization was reviewed. Patient was seen by Dr. Stewart and underwent bronchoscopy showing no endobronchial mass. Imaging at that time did not show any pleural effusion or pleural abnormalities. Review of systems otherwise negative from a constitutional, HEENT, respiratory, cardiovascular, GI, genitourinary, musculoskeletal, skin, neurologic, psychiatric and hematologic system unless stated above. [facility] Medical History Arthritis Chronic pain Depression GERD (gastroesophageal reflux disease) History of pneumonia History of stomach ulcers Hyperlipidemia Hypertension IBS (irritable bowel syndrome) Kidney stones Neuropathy Smoker Syncope Home Medications ibuprofen 200 mg capsule 800 mg PO Q6H PRN PRN 12/27/17 [History Last Taken Unknown] trazodone 100 mg tablet 100 mg PO QHS PRN #90 tab 12/14/20 [Rx Last Taken 05/17/21] albuterol sulfate 90 mcg/actuation aerosol inhaler 2 puff INHALATION Q6H #8.5 g 01/18/21 [Rx Last Taken 05/18/21] venlafaxine 150 mg capsule,extended release 24 hr 150 mg PO QHS #90 cap 02/15/21 [Rx Last Taken 05/17/21] pravastatin 40 mg tablet 40 mg PO QHS #90 tab 03/07/21 [Rx Last Taken 05/17/21] hydrocodone-acetaminophen 1 tab PO 4X/DAY 04/23/21 [History Last Taken 05/18/21] pantoprazole 40 mg tablet,delayed release 40 mg PO QAM #90 tab 04/26/21 [Rx Last Taken 05/18/21] atenolol 50 mg PO DAILY 05/05/21 [History Last Taken 05/18/21] levofloxacin 500 mg PO DAILY #10 tab 05/10/21 [Rx Last Taken 05/18/21] fluticasone propionate 50 mcg/actuation nasal spray,suspension 2 spray INTRANASAL DAILY #16 g 05/16/21 [Rx Last Taken 05/18/21] cyclobenzaprine 5 mg tablet 5 mg PO TID #90 tab 05/18/21 [Rx Last Taken 05/17/21] gabapentin 600 mg tablet 600 mg PO TID #90 tab 05/18/21 [Rx Last Taken 05/18/21] guaifenesin 1,200 mg PO Q12H 05/18/21 [History Last Taken 05/18/21] Allergy/AdvReac Type Severity Reaction Status Date / Time aspirin Allergy Severe bleeding Verified 05/18/21 16:13 Family History Mother Myocardial infarction, Onset Age: 49 Depression Father Hypertension CVA (cerebral vascular accident), Onset Age: 49 Sister Thyroid disorder Uncle ulcers Surgical History History of endoscopy Social History Smoking Status: Current every day smoker tobacco type: cigars alcohol intake: never substance use type: does not use what type of physical activity do you participate in: other details: yard work, house work ROS ROS Narrative See HPI Physical Exam Const alert, oriented x3 and no apparent distress General Appearance: cooperative Nutritional Appearance: cachectic HEENT normocephalic, head/scalp atraumatic and moist oral mucous membranes HEENT Narrative: Some temporal wasting noted. Edentulous. Eyes PERRL and EOMs intact bilaterally Neck full ROM and no lymphadenopathy Chest inspection of chest normal Resp normal respiratory effort and no use of accessory muscles Effort and Inspection: able to speak in complete sentences Auscultation: clear to auscultation bilaterally; Negative for rales, rhonchi or wheezes Percussion: dullness Lower: left Cardio regular rate, regular rhythm, S1 normal heart sound, S2 normal heart sound, no murmurs, no rub and no gallops GI normal to inspection, nondistended, normoactive bowel sounds no CVA tenderness Extremity no clubbing, cyanosis or edema Skin no rashes or lesions noted Neuro oriented x3, CN's II-XII intact bilaterally, moves all extremities and no focal motor deficits Psych cooperative and affect normal Lab / Micro Data Result Diagrams: 05/19/21 05:20 05/19/21 05:20 Labs: Laboratory Results - last 24 hr 05/18/21 16:55: WBC 26.3 H, RBC 3.34 L, Hgb 11.8 L, Hct 36.0 L, MCV 107.8 H, MCH 35.3 H, MCHC 32.8, RDW Std Deviation 50.1 H, RDW Coeff of Issa 12.6, Plt Count 516 H, MPV 9.2, Immature Gran % (Auto) 1.000 H, Neut % (Auto) 91.8 H, Lymph % (Auto) 2.3 L, [place] % (Auto) 4.4, Eos % (Auto) 0.3, Baso % (Auto) 0.2, Absolute Neuts (auto) 24.1 H, Absolute Lymphs (auto) 0.61 L, Nucleated RBC % 0, Differential Comment SEE COMMENT, Diff Path Review Radha barnes, Platelet Estimate MOD INC, RBC Morphology N CHROM, Anisocytosis 1+, Macrocytosis 1+, Tear Drop Cells RARE, Ovalocytes RARE 05/18/21 16:55: D-Dimer Quant (PE/DVT) 2.67 H* 05/18/21 16:55: Sodium 133 L, Potassium 3.9, Chloride 98, Carbon Dioxide 28.0, Anion Gap 7, BUN 27 H, Creatinine 1.00, Estim Creat Clear Calc 63.94, Est GFR (MDRD) Af Amer 95, Est GFR (MDRD) Non-Af 79, BUN/Creatinine Ratio 27.1 H, Glucose 84, Calcium 9.9, Troponin I High Sens 6.3 05/18/21 16:55: Phosphorus 3.2, Magnesium 1.8 05/18/21 18:07: Lactic Acid 1.2 05/19/21 05:20: WBC 17.9 H, RBC 2.73 L, Hgb 9.5 L, Hct 29.4 L, MCV 107.7 H, MCH 34.8 H, MCHC 32.3, RDW Std Deviation 50.4 H, RDW Coeff of Issa 12.8, Plt Count 382, MPV 9.0, Immature Gran % (Auto) 0.700, Neut % (Auto) 89.6 H, Lymph % (Auto) 3.1 L, [place] % (Auto) 5.1, Eos % (Auto) 1.3, Baso % (Auto) 0.2, Absolute Neuts (auto) 16.0 H, Absolute Lymphs (auto) 0.56 L, Nucleated RBC % 0 05/19/21 05:20: Sodium 136, Potassium 3.8, Chloride 104, Carbon Dioxide 29.0, Anion Gap 3 L, BUN 15, Creatinine 0.57 L, Estim Creat Clear Calc 67.60, Est GFR (MDRD) Af Amer 181, Est GFR (MDRD) Non-Af 149, BUN/Creatinine Ratio 26.2 H, Glucose 88, Calcium 9.1, Magnesium 2.1, Total Bilirubin 0.40, AST 17, ALT 20, Alkaline Phosphatase 76, Total Protein 5.7 L, Albumin 1.9 L, Globulin 3.8, Albumin/Globulin Ratio 0.5 L 05/19/21 05:20: PT 15.8 H, INR 1.3 05/19/21 : Lactate Dehydrogenase 190, Total Protein 5.8 L, Globulin 3.9, Albumin/Globulin Ratio 0.5 L Radiology Impression Brain CT 05/18/21 16:30 IMPRESSION: Mild periventricular white matter ischemic change. No evidence for acute bleed. If concern for acute infarct MRI recommended. Electronically Signed: Slick Howell MD at 17:23 EDT , Service support , Chest X-Ray 05/18/21 17:07 IMPRESSION: Moderate-sized left pleural effusion with left lower lobe consolidation. Electronically Signed: Slick Howell MD at 17:25 EDT , Service support , Chest CTA 05/18/21 17:36 IMPRESSION: Large left pleural effusion with consolidation of left lower lobe possibly due to pneumonia however clinical correlation is recommended No evidence for pulmonary embolus Electronically Signed: Slick Howell MD at 18:54 EDT , Service support , Charges/Coding Visit Charges Inpatient E&M: 09140 Init Hosp L3
--- NOTE | 2021-05-19 09:00 | US_ITS ---
EXAM DESCRIPTION: Left thoracentesis, under ultrasound CLINICAL HISTORY: 70 years Male, Large left pleural effusion COMPARISON: Previous CT scan of the chest obtained on 05/18/2021 TECHNIQUE: With ultrasound guidance, a large pocket of the fluid was noted in the left lung base. The procedure was explained to the patient. A skin site was marked and ultrasound was utilized to determine the depth of the thoracentesis needle. After this, 2% LIDOCAINE was subcutaneously instilled into the soft tissues of the back. A 5 Uzbek Yueh catheter was then inserted 4 cm into the left hemithorax and 450 cc of yellowish pleural effusion was aspirated. FINDINGS: 100 cc of the yellowish-greenish fluid was aspirated in 2 separate 50 cc syringes and sent to the laboratory for further analysis. The remaining 350 cc of ascites was aspirated and discarded. The patient tolerated the procedure well and ultrasound was finally performed showing only a small amount residual fluid in the left lung base. The catheter was then pulled out of the chest and compression was held over the site of puncture. Inspiration and expiration post chest x-ray images were obtained showing no evidence of a pneumothorax. The patient was sent back to his room in good condition. US/Thoracentesis W US IMPRESSION: A left thoracentesis with ultrasounic guidance was performed without incidence and 450 cc of pleural fluid was aspirated as described above. Electronically Signed: Cj Barber DO at 10:51 EDT Tel , Service support ,
--- NOTE | 2021-05-19 10:00 | RAD_ITS ---
EXAM DESCRIPTION: PORTABLE AP CHEST CLINICAL HISTORY: 70 years Male, PNEUMOTHORAX -- IMMEDIATELY POST THORACENTESIS PNEUMOTHORAX -- IMMEDIATELY POST THORACENTESIS COMPARISON: Previous chest obtained on 05/18/2000 FINDINGS: Inspiration and expiration chest was performed following a thoracentesis. The thorax is intact. The right lung is normal heart and mediastinum are slightly shifted toward the left. There has been a slight interval reduction in the amount of pleural effusion seen in the left lung base due to the recent thoracentesis. On inspiration and expiration images no pneumothorax was seen. There appears to be subsegmental atelectasis just superior to the small left lung base pleural effusion. RAD/Chest Insp/Exp 2 View IMPRESSION: A small left lung base pleural effusion is identified on these post thoracentesis x-rays. No evidence of a pneumothorax is seen. Electronically Signed: Cj Barber DO at 10:15 EDT Tel , Service support ,
[2021-05-19 10:37] LABS: Cytology, Body Fluid / CSF SEE PATHOLOGY REPORT
--- NOTE | 2021-05-19 10:51 | CASEMGMT ---
Readmission chart review: Pt was initially admitted 05/06-05/10/21 on [facility] for CAP and declined need for any further therapy at discharge. See CM assessment completed by Malgorzata GARCES CM on 05/08/21. Pt returned to [facility] ED on 05/18/21 for low pulse ox and multiple syncopal episodes. Pt admitted for Recurrent syncope/pleural effusion. Pt to radiology today for thoracentesis and they got 450cc out. Pt is currently on room air. CM to follow PT/OT evals and any further discharge planning/needs. Orthos completed this am were negative. Delphine GARCES CM
[2021-05-19 10:52] LABS: Body Fluid Mononuclear WBC # 0.947 10^3/uL; Body Fluid Polynuclear WBC # 6.934 10^3/uL; Body Fluid Total Cells Counted 7.882 10^3/ul; White Blood Count/Body Fluid 7.881 10^3/uL
[2021-05-19 10:56] LABS: Appearance/Body Fluid CLOUDY; Auto B Fluid Analyzer BKGD Ct COUNTS W/IN LIMITS (W/IN LIMITS); Color/Body Fluid YELLOW; Source- Body Fluid THORACENTESIS
[2021-05-19 11:08] LABS: Red Cell Count/Body Fluid 480 /mm3
[2021-05-19] MEDS: Pantoprazole Sodium 40 MG Tablet PO (11:20)
[2021-05-19] MEDS: guaiFENesin 1,200 MG Tablet 1200 MG PO (11:20)
[2021-05-19] MEDS: Fluticasone 0.05% 1 SPRAY NASAL.SRY 2 SPRAY NASAL (11:20)
[2021-05-19 11:27] LABS: Glucose, Body Fluid < 1 mg/dL (40-70); LDH,Body Fluid 899 Units/l (Not Establ.); Protein, Body Fluid 4.3 g/dL (Not Establ.)
[2021-05-19] MEDS: HYDROcodone Bitartrate/Apap 5/325 Tablet PO ×3 (11:27→17:52)
--- NOTE | 2021-05-19 11:28 | NURSING ---
wound photo: right elbow/forearm
--- NOTE | 2021-05-19 11:29 | NURSING ---
wound photo: right temporal region
[2021-05-19 11:34] LABS: Lymphocytes 7 %; Monocytes 5 %; Neutrophil (Segs) 88 %
[2021-05-19 11:46] LABS: Pathologist Review Reviewed
--- NOTE | 2021-05-19 17:45 | PCM.HP.STD ---
HPI - General General Date of Admission: 05/18/21 Date of Service: 05/19/21 Chief Complaint: Recurrent syncope HPI Narrative PEDRO ALBRECHT, is a 70 M who presents [facility] Medical History Arthritis Chronic pain Depression GERD (gastroesophageal reflux disease) History of pneumonia History of stomach ulcers Hyperlipidemia Hypertension IBS (irritable bowel syndrome) Kidney stones Neuropathy Smoker Syncope Home Medications ibuprofen 200 mg capsule 800 mg PO Q6H PRN PRN 12/27/17 [History Last Taken Unknown] trazodone 100 mg tablet 100 mg PO QHS PRN #90 tab 12/14/20 [Rx Last Taken 05/17/21] albuterol sulfate 90 mcg/actuation aerosol inhaler 2 puff INHALATION Q6H #8.5 g 01/18/21 [Rx Last Taken 05/18/21] venlafaxine 150 mg capsule,extended release 24 hr 150 mg PO QHS #90 cap 02/15/21 [Rx Last Taken 05/17/21] pravastatin 40 mg tablet 40 mg PO QHS #90 tab 03/07/21 [Rx Last Taken 05/17/21] hydrocodone-acetaminophen 1 tab PO 4X/DAY 04/23/21 [History Last Taken 05/18/21] pantoprazole 40 mg tablet,delayed release 40 mg PO QAM #90 tab 04/26/21 [Rx Last Taken 05/18/21] atenolol 50 mg PO DAILY 05/05/21 [History Last Taken 05/18/21] levofloxacin 500 mg PO DAILY #10 tab 05/10/21 [Rx Last Taken 05/18/21] fluticasone propionate 50 mcg/actuation nasal spray,suspension 2 spray INTRANASAL DAILY #16 g 05/16/21 [Rx Last Taken 05/18/21] cyclobenzaprine 5 mg tablet 5 mg PO TID #90 tab 05/18/21 [Rx Last Taken 05/17/21] gabapentin 600 mg tablet 600 mg PO TID #90 tab 05/18/21 [Rx Last Taken 05/18/21] guaifenesin 1,200 mg PO Q12H 05/18/21 [History Last Taken 05/18/21] Allergy/AdvReac Type Severity Reaction Status Date / Time aspirin Allergy Severe bleeding Verified 05/18/21 16:13 Family History Mother Myocardial infarction, Onset Age: 49 Depression Father Hypertension CVA (cerebral vascular accident), Onset Age: 49 Sister Thyroid disorder Uncle ulcers Surgical History History of endoscopy Social History Smoking Status: Current every day smoker tobacco type: cigars alcohol intake: never substance use type: does not use what type of physical activity do you participate in: other details: yard work, house work Vital Signs Vital Signs Vital Signs: 05/18/21 17:48 05/18/21 17:56 05/18/21 18:11 Temperature 98.2 F Temperature Source Temporal Pulse Rate 68 67 Pulse Rate [1 (Initial Baseline)] Pulse Rate [2] Pulse Rate [3] Pulse Rate [4] Pulse Rate [Lying] 68 Pulse Rate [Sitting] 70 Pulse Rate [Standing] 69 Pulse Strength Respiratory Rate 18 14 Respiratory Rate [1 (Initial Baseline)] Respiratory Rate [2] Respiratory Rate [3] Respiratory Rate [4] Respiratory Effort Respiratory Depth Respiratory Pattern Blood Pressure 110/66 112/56 L Blood Pressure [1 (Initial Baseline)] Blood Pressure [2] Blood Pressure [3] Blood Pressure [4] Blood Pressure [BP] Blood Pressure [Lying] 118/58 L Blood Pressure [Sitting] 113/62 Blood Pressure [Standing] 84/48 L Blood Pressure Mean 80 74 Blood Pressure Mean [BP] Blood Pressure Mean [Lying] 78 Blood Pressure Mean [Sitting] 79 Blood Pressure Mean [Standing] 60 Blood Pressure Source Blood Pressure Source [BP] Blood Pressure Position Blood Pressure Position [BP] Blood Pressure Location Blood Pressure Location [BP] Pulse Ox 95 97 Oxygen Delivery Method Room Air Room Air Oxygen Delivery Method [1 (Initial Baseline)] Oxygen Delivery Method [2] Oxygen Delivery Method [3] Oxygen Delivery Method [4] 05/18/21 19:02 05/18/21 19:25 05/18/21 20:10 Temperature 97.9 F 97.9 F 98.9 F Temperature Source Temporal Temporal Oral Pulse Rate 68 71 70 Pulse Rate [1 (Initial Baseline)] Pulse Rate [2] Pulse Rate [3] Pulse Rate [4] Pulse Rate [Lying] Pulse Rate [Sitting] Pulse Rate [Standing] Pulse Strength Respiratory Rate 18 16 18 Respiratory Rate [1 (Initial Baseline)] Respiratory Rate [2] Respiratory Rate [3] Respiratory Rate [4] Respiratory Effort Respiratory Depth Respiratory Pattern Blood Pressure 103/51 L 121/61 H 126/70 H Blood Pressure [1 (Initial Baseline)] Blood Pressure [2] Blood Pressure [3] Blood Pressure [4] Blood Pressure [BP] Blood Pressure [Lying] Blood Pressure [Sitting] Blood Pressure [Standing] Blood Pressure Mean 68 81 88 Blood Pressure Mean [BP] Blood Pressure Mean [Lying] Blood Pressure Mean [Sitting] Blood Pressure Mean [Standing] Blood Pressure Source Monitor Blood Pressure Source [BP] Blood Pressure Position Sitting Blood Pressure Position [BP] Blood Pressure Location Left Arm Blood Pressure Location [BP] Pulse Ox 96 92 92 Oxygen Delivery Method Room Air Room Air Room Air Oxygen Delivery Method [1 (Initial Baseline)] Oxygen Delivery Method [2] Oxygen Delivery Method [3] Oxygen Delivery Method [4] 05/18/21 20:30 05/18/21 20:40 05/18/21 22:45 Temperature Temperature Source Pulse Rate 62 Pulse Rate [1 (Initial Baseline)] Pulse Rate [2] Pulse Rate [3] Pulse Rate [4] Pulse Rate [Lying] Pulse Rate [Sitting] Pulse Rate [Standing] Pulse Strength Normal (2+) Respiratory Rate Respiratory Rate [1 (Initial Baseline)] Respiratory Rate [2] Respiratory Rate [3] Respiratory Rate [4] Respiratory Effort Normal Non-Labored Respiratory Depth Normal Respiratory Pattern Normal Blood Pressure Blood Pressure [1 (Initial Baseline)] Blood Pressure [2] Blood Pressure [3] Blood Pressure [4] Blood Pressure [BP] Blood Pressure [Lying] Blood Pressure [Sitting] Blood Pressure [Standing] Blood Pressure Mean Blood Pressure Mean [BP] Blood Pressure Mean [Lying] Blood Pressure Mean [Sitting] Blood Pressure Mean [Standing] Blood Pressure Source Blood Pressure Source [BP] Blood Pressure Position Blood Pressure Position [BP] Blood Pressure Location Blood Pressure Location [BP] Pulse Ox Oxygen Delivery Method Room Air Oxygen Delivery Method [1 (Initial Baseline)] Oxygen Delivery Method [2] Oxygen Delivery Method [3] Oxygen Delivery Method [4] 05/18/21 23:05 05/19/21 02:20 05/19/21 03:00 Temperature 97.6 F L Temperature Source Temporal Pulse Rate 76 75 66 Pulse Rate [1 (Initial Baseline)] Pulse Rate [2] Pulse Rate [3] Pulse Rate [4] Pulse Rate [Lying] Pulse Rate [Sitting] Pulse Rate [Standing] Pulse Strength Respiratory Rate 15 17 Respiratory Rate [1 (Initial Baseline)] Respiratory Rate [2] Respiratory Rate [3] Respiratory Rate [4] Respiratory Effort Normal Non-Labored Respiratory Depth Normal Respiratory Pattern Normal Normal Blood Pressure 110/73 Blood Pressure [1 (Initial Baseline)] Blood Pressure [2] Blood Pressure [3] Blood Pressure [4] Blood Pressure [BP] Blood Pressure [Lying] Blood Pressure [Sitting] Blood Pressure [Standing] Blood Pressure Mean 85 Blood Pressure Mean [BP] Blood Pressure Mean [Lying] Blood Pressure Mean [Sitting] Blood Pressure Mean [Standing] Blood Pressure Source Monitor Blood Pressure Source [BP] Blood Pressure Position Semi-Fowlers Blood Pressure Position [BP] Blood Pressure Location Left Arm Blood Pressure Location [BP] Pulse Ox 94 Oxygen Delivery Method Room Air Oxygen Delivery Method [1 (Initial Baseline)] Oxygen Delivery Method [2] Oxygen Delivery Method [3] Oxygen Delivery Method [4] 05/19/21 03:40 05/19/21 05:50 05/19/21 07:00 Temperature Temperature Source Pulse Rate 64 67 Pulse Rate [1 (Initial Baseline)] Pulse Rate [2] Pulse Rate [3] Pulse Rate [4] Pulse Rate [Lying] 69 Pulse Rate [Sitting] 65 Pulse Rate [Standing] Pulse Strength Respiratory Rate 15 Respiratory Rate [1 (Initial Baseline)] Respiratory Rate [2] Respiratory Rate [3] Respiratory Rate [4] Respiratory Effort Respiratory Depth Respiratory Pattern Normal Blood Pressure Blood Pressure [1 (Initial Baseline)] Blood Pressure [2] Blood Pressure [3] Blood Pressure [4] Blood Pressure [BP] Blood Pressure [Lying] 104/54 L Blood Pressure [Sitting] 113/53 L Blood Pressure [Standing] 119/63 Blood Pressure Mean Blood Pressure Mean [BP] Blood Pressure Mean [Lying] 70 Blood Pressure Mean [Sitting] 73 Blood Pressure Mean [Standing] 81 Blood Pressure Source Blood Pressure Source [BP] Blood Pressure Position Blood Pressure Position [BP] Blood Pressure Location Blood Pressure Location [BP] Pulse Ox Oxygen Delivery Method Oxygen Delivery Method [1 (Initial Baseline)] Oxygen Delivery Method [2] Oxygen Delivery Method [3] Oxygen Delivery Method [4] 05/19/21 07:13 05/19/21 08:20 08/06/21 08:25 Temperature 99.1 F Temperature Source Oral Pulse Rate 62 69 Pulse Rate [1 (Initial Baseline)] Pulse Rate [2] Pulse Rate [3] Pulse Rate [4] Pulse Rate [Lying] Pulse Rate [Sitting] Pulse Rate [Standing] Pulse Strength Normal (2+) Respiratory Rate 18 18 Respiratory Rate [1 (Initial Baseline)] Respiratory Rate [2] Respiratory Rate [3] Respiratory Rate [4] Respiratory Effort Normal Non-Labored Respiratory Depth Normal Respiratory Pattern Normal Normal Blood Pressure 106/58 L Blood Pressure [1 (Initial Baseline)] Blood Pressure [2] Blood Pressure [3] Blood Pressure [4] Blood Pressure [BP] Blood Pressure [Lying] Blood Pressure [Sitting] Blood Pressure [Standing] Blood Pressure Mean 74 Blood Pressure Mean [BP] Blood Pressure Mean [Lying] Blood Pressure Mean [Sitting] Blood Pressure Mean [Standing] Blood Pressure Source Monitor Blood Pressure Source [BP] Blood Pressure Position Semi-Fowlers Blood Pressure Position [BP] Blood Pressure Location Right Arm Blood Pressure Location [BP] Pulse Ox 93 94 Oxygen Delivery Method Room Air Room Air Room Air Oxygen Delivery Method [1 (Initial Baseline)] Oxygen Delivery Method [2] Oxygen Delivery Method [3] Oxygen Delivery Method [4] 05/19/21 09:35 05/19/21 10:35 05/19/21 10:36 Temperature Temperature Source Pulse Rate 66 Pulse Rate [1 (Initial Baseline)] 64 Pulse Rate [2] 61 Pulse Rate [3] 75 Pulse Rate [4] 75 Pulse Rate [Lying] Pulse Rate [Sitting] Pulse Rate [Standing] Pulse Strength Respiratory Rate 16 Respiratory Rate [1 (Initial Baseline)] 18 Respiratory Rate [2] 18 Respiratory Rate [3] 16 Respiratory Rate [4] 16 Respiratory Effort Normal Normal Non-Labored Respiratory Depth Normal Respiratory Pattern Normal Normal Blood Pressure Blood Pressure [1 (Initial Baseline)] 104/46 L Blood Pressure [2] 99/47 L Blood Pressure [3] 89/58 L Blood Pressure [4] 119/53 L Blood Pressure [BP] 118/52 L Blood Pressure [Lying] Blood Pressure [Sitting] Blood Pressure [Standing] Blood Pressure Mean Blood Pressure Mean [BP] 74 Blood Pressure Mean [Lying] Blood Pressure Mean [Sitting] Blood Pressure Mean [Standing] Blood Pressure Source Blood Pressure Source [BP] Monitor Blood Pressure Position Blood Pressure Position [BP] Semi-Fowlers Blood Pressure Location Blood Pressure Location [BP] Right Arm Pulse Ox 97 Oxygen Delivery Method Room Air Room Air Oxygen Delivery Method [1 (Initial Baseline)] Room Air Oxygen Delivery Method [2] Room Air Oxygen Delivery Method [3] Room Air Oxygen Delivery Method [4] Room Air 05/19/21 11:05 05/19/21 15:02 05/19/21 15:14 Temperature Temperature Source Pulse Rate 75 Pulse Rate [1 (Initial Baseline)] Pulse Rate [2] Pulse Rate [3] Pulse Rate [4] Pulse Rate [Lying] Pulse Rate [Sitting] Pulse Rate [Standing] Pulse Strength Respiratory Rate 18 Respiratory Rate [1 (Initial Baseline)] Respiratory Rate [2] Respiratory Rate [3] Respiratory Rate [4] Respiratory Effort Normal Non-Labored Respiratory Depth Normal Respiratory Pattern Normal Blood Pressure Blood Pressure [1 (Initial Baseline)] Blood Pressure [2] Blood Pressure [3] Blood Pressure [4] Blood Pressure [BP] Blood Pressure [Lying] Blood Pressure [Sitting] Blood Pressure [Standing] Blood Pressure Mean Blood Pressure Mean [BP] Blood Pressure Mean [Lying] Blood Pressure Mean [Sitting] Blood Pressure Mean [Standing] Blood Pressure Source Blood Pressure Source [BP] Blood Pressure Position Blood Pressure Position [BP] Blood Pressure Location Blood Pressure Location [BP] Pulse Ox Oxygen Delivery Method Room Air Room Air Oxygen Delivery Method [1 (Initial Baseline)] Oxygen Delivery Method [2] Oxygen Delivery Method [3] Oxygen Delivery Method [4] 05/19/21 15:15 Temperature 98.7 F Temperature Source Oral Pulse Rate 67 Pulse Rate [1 (Initial Baseline)] Pulse Rate [2] Pulse Rate [3] Pulse Rate [4] Pulse Rate [Lying] Pulse Rate [Sitting] Pulse Rate [Standing] Pulse Strength Respiratory Rate 18 Respiratory Rate [1 (Initial Baseline)] Respiratory Rate [2] Respiratory Rate [3] Respiratory Rate [4] Respiratory Effort Respiratory Depth Respiratory Pattern Blood Pressure 119/61 Blood Pressure [1 (Initial Baseline)] Blood Pressure [2] Blood Pressure [3] Blood Pressure [4] Blood Pressure [BP] Blood Pressure [Lying] Blood Pressure [Sitting] Blood Pressure [Standing] Blood Pressure Mean 80 Blood Pressure Mean [BP] Blood Pressure Mean [Lying] Blood Pressure Mean [Sitting] Blood Pressure Mean [Standing] Blood Pressure Source Monitor Blood Pressure Source [BP] Blood Pressure Position Semi-Fowlers Blood Pressure Position [BP] Blood Pressure Location Right Arm Blood Pressure Location [BP] Pulse Ox 95 Oxygen Delivery Method Room Air Oxygen Delivery Method [1 (Initial Baseline)] Oxygen Delivery Method [2] Oxygen Delivery Method [3] Oxygen Delivery Method [4] Weight Weight: 69.536 kg Body Mass Index (BMI) 20.5 Results Medical Records Data Medical Nutrition Assessment Dietitian: Nutrition Therapy Diagnosis Start: 05/19/21 14:54 Freq: Status: Active Protocol: Document 05/19/21 15:16 SLA (Rec: 05/19/21 15:16 SLA [id number]) Nutrition Malnutrition Evidence of Malnutrition Exists Yes Evidenced By Suboptimal Energy Intake ( Severe),Weight Loss (Severe), Physical Changes (Severe) Clinical Problem Chronic Disease or Condition Related Malnutrition Etiology Severe malnutrition in the context chronic disease/ condition related to inadequate protein-energy intake Signs/Symptoms as evidenced by pt consuming ~ 25% of meals x3 months, severe unintentional weight loss of 24#/13% x3 months, severe muscle and fat loss of clavicle, temporal, orbital, and hand regions; estimated unintentional weight loss of 25% x1 year and consuming ~25% of energy needs x1 year. Status Active Problem Recommendation Dietitian Recommendations/Changes Continue regular/general diet d/t malnutrition. D/c ensure enlive 120mL PO 4x/ day at [facility]. Add ensure clear 120mL PO 4x/ day at [facility]. Add vanilla magic cup BID at lunch and dinner. Andria Coburn RDN, LD Lab / Micro Data Result Diagrams: 05/19/21 05:20 05/19/21 05:20 Labs: Laboratory Results - last 24 hr 05/18/21 16:55: Differential Comment SEE COMMENT, Diff Path Review Reviewed, Platelet Estimate MOD INC, RBC Morphology N CHROM, Anisocytosis 1+, Macrocytosis 1+, Tear Drop Cells RARE, Ovalocytes RARE 05/18/21 16:55: Phosphorus 3.2, Magnesium 1.8 05/18/21 18:07: Lactic Acid 1.2 05/19/21 05:20: WBC 17.9 H, RBC 2.73 L, Hgb 9.5 L, Hct 29.4 L, MCV 107.7 H, MCH 34.8 H, MCHC 32.3, RDW Std Deviation 50.4 H, RDW Coeff of Sisa 12.8, Plt Count 382, MPV 9.0, Immature Gran % (Auto) 0.700, Neut % (Auto) 89.6 H, Lymph % (Auto) 3.1 L, [place] % (Auto) 5.1, Eos % (Auto) 1.3, Baso % (Auto) 0.2, Absolute Neuts (auto) 16.0 H, Absolute Lymphs (auto) 0.56 L, Nucleated RBC % 0 05/19/21 05:20: Sodium 136, Potassium 3.8, Chloride 104, Carbon Dioxide 29.0, Anion Gap 3 L, BUN 15, Creatinine 0.57 L, Estim Creat Clear Calc 67.60, Est GFR (MDRD) Af Amer 181, Est GFR (MDRD) Non-Af 149, BUN/Creatinine Ratio 26.2 H, Glucose 88, Calcium 9.1, Magnesium 2.1, Total Bilirubin 0.40, AST 17, ALT 20, Alkaline Phosphatase 76, Total Protein 5.7 L, Albumin 1.9 L, Globulin 3.8, Albumin/Globulin Ratio 0.5 L 05/19/21 05:20: PT 15.8 H, INR 1.3 05/19/21 05:20: Lactate Dehydrogenase 190, Total Protein 5.8 L, Globulin 3.9, Albumin/Globulin Ratio 0.5 L 05/19/21 09:50: Fluid Glucose < 1 L*, Fluid Total Protein 4.3, Fluid LDH 899 05/19/21 09:50: Fluid Source THORACENTESIS, Fluid Color YELLOW, Fluid Appearance CLOUDY, Fluid WBC 7.881, Fluid RBC 480, Fluid Tot Cell Count 7.882, Fld Polynuclear WBCs # 6.934, Fld Polynuclear WBCs % 88.0, Fluid Mononuclear WBCs 0.947, Fld Mononuclear WBCs % 12.0, Fluid Neutrophils 88, Fluid Lymphocytes 7, Fluid Monocytes 5, Fl Pathologist Comment May follow, Fluid Comment 2 SEE COMMENT Micro: Microbiology 05/19/21 09:50 Fluid - Thoracentesis Fluid Gram Stain - Final Radiology Impression Chest CTA 05/18/21 17:36 IMPRESSION: Large left pleural effusion with consolidation of left lower lobe possibly due to pneumonia however clinical correlation is recommended No evidence for pulmonary embolus Electronically Signed: Slick Howell MD at 18:54 EDT , Service support , Thoracentesis Ultrasound 05/19/21 09:00 IMPRESSION: A left thoracentesis with ultrasounic guidance was performed without incidence and 450 cc of pleural fluid was aspirated as described above. Electronically Signed: Cj Barber DO at 10:51 EDT Tel , Service support , Chest X-Ray 05/19/21 10:00 IMPRESSION: A small left lung base pleural effusion is identified on these post thoracentesis x-rays. No evidence of a pneumothorax is seen. Electronically Signed: Cj Barber DO at 10:15 EDT Tel , Service support ,
--- NOTE | 2021-05-19 17:49 | DS.PCM_ITS ---
Providers Date of Admission: 05/18/21 Date of Discharge: 05/19/21 Primary Care Physician: Dr. Miguel Stewart, Consultations 05/18/21 20:12 Consult: Human Resources Manager Manufacturing / Pulmonary Medicine Routine Consulting Provider: Pulmonary Medicine mayra [place] Reason for Consult: Lung mass/post-obstructive pneumonia EMERGENT Consult: No MD Notified: Yes Date Notified: 05/19/21 Time Notified: 05:00 Method of Notification: Text 05/18/21 20:48 Consult: Onc/Wound/front desk administrator Routine Comment: Reason For Visit: RECURRENT SYNCOPE/PLEURAL EFFUSION Diagnosis Discharge Diagnosis (1) Pleural effusion on left: Status: Acute Code(s): J90 - Pleural effusion, not elsewhere classified (2) Pneumonia: Status: Acute Code(s): J18.9 - Pneumonia, unspecified organism (3) Unexplained weight loss: Status: Chronic Code(s): R63.4 - Abnormal weight loss Plan: 1. Left empyema #2 chronic obstructive pulmonary disease #3 hyperlipidemia #4 chronic depression #5 severe chronic and caloric malnutrition #6 syncope secondary to orthostatic hypotension #7 orthostatic hypotension-etiology unclear Medications at Discharge Home Medications ibuprofen 200 mg capsule 800 mg PO Q6H PRN PRN 12/27/17 trazodone 100 mg tablet 100 mg PO QHS PRN #90 tab 12/14/20 albuterol sulfate 90 mcg/actuation aerosol inhaler 2 puff INHALATION Q6H #8.5 g 01/18/21 venlafaxine 150 mg capsule,extended release 24 hr 150 mg PO QHS #90 cap 02/15/21 pravastatin 40 mg tablet 40 mg PO QHS #90 tab 03/07/21 hydrocodone-acetaminophen 1 tab PO 4X/DAY 04/23/21 pantoprazole 40 mg tablet,delayed release 40 mg PO QAM #90 tab 04/26/21 atenolol 50 mg PO DAILY 05/05/21 levofloxacin 500 mg PO DAILY #10 tab 05/10/21 fluticasone propionate 50 mcg/actuation nasal spray,suspension 2 spray INTRANASAL DAILY #16 g 05/16/21 cyclobenzaprine 5 mg tablet 5 mg PO TID #90 tab 05/18/21 gabapentin 600 mg tablet 600 mg PO TID #90 tab 05/18/21 guaifenesin 1,200 mg PO Q12H 05/18/21 Hospital Course Procedures Thoracentesis Summary of Care Provided Minutes Spent on Discharge: 32 Hospital Course: 70-year-old white male was seen in the emergency room at [facility] with a chief complaint of syncopal episodes which had occurred several times in the last few days. Patient also complained of feeling lightheaded and dizzy prior to the syncopal episodes. Work-up in the emergency room included a chest x-ray which showed evidence of a left lower lobe infiltrate or effusion, CTA of the chest showed a large left pleural effusion with consolidation of the left lower lobe. No evidence for pulmonary embolus was noted. Patient's white blood cell count was elevated, his chemistry profile was unremarkable. Patient was orthostatic in the emergency room. Patient was admitted to PCU, he was seen in consultation by pulmonary medicine and placed on IV antibiotics. Patient underwent a left thoracentesis, fluid obtained was rich in white blood cells indicating an empyema. It was advised that the patient be transferred to a tertiary care hospital for further treatment by pulmonary medicine. I talked with the patient's POA and the patient, they were not against going to [facility] in [facility]. On 05/19/2021, patient was seen and examined: On examination he appeared older than his stated age, he appeared cachectic. Vital signs as documented. Skin warm and dry and without overt rashes. Neck without JVD, neck was supple, trachea midline, thyroid was normal. Lungs clear bilaterally, normal air movement was noted. Heart exam notable for regular rhythm, normal sounds and absence of murmurs, rubs or gallops. Abdomen unremarkable and without evidence of organomegaly, masses, or abdominal aortic enlargement. Bowel sounds are present, abdomen is not distended. Extremities nonedematous, no cyanosis was noted, no clubbing was noted. Neuro: Cranial nerves II through XII are grossly intact, no focal motor deficits were noted, sensation to light touch and pinprick intact, motor exam 5/5 throughout. Psych: Patient is alert and oriented x3, he does not appear anxious or depressed, he does not appear agitated. On 05/19/2021, patient was seen and examined and transferred to [facility] in [place], [place] for further treatment. Medical Records Data Medical Nutrition Assessment Dietitian: Nutrition Therapy Diagnosis Start: 05/19/21 14:54 Freq: Status: Active Protocol: Document 05/19/21 15:16 SLA (Rec: 05/19/21 15:16 SLA [id number]) Nutrition Malnutrition Evidence of Malnutrition Exists Yes Evidenced By Suboptimal Energy Intake ( Severe),Weight Loss (Severe), Physical Changes (Severe) Clinical Problem Chronic Disease or Condition Related Malnutrition Etiology Severe malnutrition in the context chronic disease/ condition related to inadequate protein-energy intake Signs/Symptoms as evidenced by pt consuming ~ 25% of meals x3 months, severe unintentional weight loss of 24#/13% x3 months, severe muscle and fat loss of clavicle, temporal, orbital, and hand regions; estimated unintentional weight loss of 25% x1 year and consuming ~25% of energy needs x1 year. Status Active Problem Recommendation Dietitian Recommendations/Changes Continue regular/general diet d/t malnutrition. D/c ensure enlive 120mL PO 4x/ day at [facility]. Add ensure clear 120mL PO 4x/ day at [facility]. Add vanilla magic cup BID at lunch and dinner. Andria Coburn RDN, LD Weight / BMI Weight Weight: 69.536 kg Body Mass Index (BMI) 20.5 ABG / Lab / Microbiology Data Result Diagrams: 05/19/21 05:20 05/19/21 05:20 Laboratory: Laboratory Results - last 24 hr 05/18/21 16:55: Differential Comment SEE COMMENT, Diff Path Review Reviewed, Platelet Estimate MOD INC, RBC Morphology N CHROM, Anisocytosis 1+, Macrocytosis 1+, Tear Drop Cells RARE, Ovalocytes RARE 05/18/21 16:55: Phosphorus 3.2, Magnesium 1.8 05/18/21 18:07: Lactic Acid 1.2 05/19/21 05:20: WBC 17.9 H, RBC 2.73 L, Hgb 9.5 L, Hct 29.4 L, MCV 107.7 H, MCH 34.8 H, MCHC 32.3, RDW Std Deviation 50.4 H, RDW Coeff of Issa 12.8, Plt Count 382, MPV 9.0, Immature Gran % (Auto) 0.700, Neut % (Auto) 89.6 H, Lymph % (Auto) 3.1 L, [place] % (Auto) 5.1, Eos % (Auto) 1.3, Baso % (Auto) 0.2, Absolute Neuts (auto) 16.0 H, Absolute Lymphs (auto) 0.56 L, Nucleated RBC % 0 05/19/21 05:20: Sodium 136, Potassium 3.8, Chloride 104, Carbon Dioxide 29.0, Anion Gap 3 L, BUN 15, Creatinine 0.57 L, Estim Creat Clear Calc 67.60, Est GFR (MDRD) Af Amer 181, Est GFR (MDRD) Non-Af 149, BUN/Creatinine Ratio 26.2 H, Glucose 88, Calcium 9.1, Magnesium 2.1, Total Bilirubin 0.40, AST 17, ALT 20, Alkaline Phosphatase 76, Total Protein 5.7 L, Albumin 1.9 L, Globulin 3.8, Albumin/Globulin Ratio 0.5 L 05/19/21 05:20: PT 15.8 H, INR 1.3 05/19/21 05:20: Lactate Dehydrogenase 190, Total Protein 5.8 L, Globulin 3.9, Albumin/Globulin Ratio 0.5 L 05/19/21 09:50: Fluid Glucose < 1 L*, Fluid Total Protein 4.3, Fluid LDH 899 05/19/21 09:50: Fluid Source THORACENTESIS, Fluid Color YELLOW, Fluid Appearance CLOUDY, Fluid WBC 7.881, Fluid RBC 480, Fluid Tot Cell Count 7.882, Fld Polynuclear WBCs # 6.934, Fld Polynuclear WBCs % 88.0, Fluid Mononuclear WBCs 0.947, Fld Mononuclear WBCs % 12.0, Fluid Neutrophils 88, Fluid Lymphocytes 7, Fluid Monocytes 5, Fl Pathologist Comment May follow, Fluid Comment 2 SEE COMMENT Microbiology: Microbiology 05/19/21 09:50 Fluid - Thoracentesis Fluid Gram Stain - Final Radiography Diagnostic Testing: Radiology Impression Chest CTA 05/18/21 17:36 IMPRESSION: Large left pleural effusion with consolidation of left lower lobe possibly due to pneumonia however clinical correlation is recommended No evidence for pulmonary embolus Electronically Signed: Slick Howell MD at 18:54 EDT , Service support , Thoracentesis Ultrasound 05/19/21 09:00 IMPRESSION: A left thoracentesis with ultrasounic guidance was performed without incidence and 450 cc of pleural fluid was aspirated as described above. Electronically Signed: Cj BarberDO at 10:51 EDT Tel , Service support , Chest X-Ray 05/19/21 10:00 IMPRESSION: A small left lung base pleural effusion is identified on these post thoracentesis x-rays. No evidence of a pneumothorax is seen. Electronically Signed: Cj BarberDO at 10:15 EDT Tel , Service support , Meaningful Use Info Meaningful Use Diagnoses (Choose all that apply): None applicable Discharge Plan Admission Admit Date/Time: 05/18/21 19:15 Attending Provider: Brody Sandoval Primary Care Provider: iMguel Stewart Consulting Providers: Wei Peralta ; Sammy Stewart ; Dorie Jeter CANDY PULLER Instructions Patient Instructions: Thoracentesis Dc Discharge Orders/Prescriptions Prescriptions: No Action ibuprofen [Motrin IB] 200 mg capsule 800 mg PO Q6H PRN PRN (Reason: Pain) RF: 0 Ventolin HFA 90 mcg/actuation HFA aerosol inhaler 2 puff INHALATION Q6H Qty: 8.5 RF: 2 pravastatin 40 mg tablet 40 mg PO QHS Qty: 90 RF: 1 fluticasone propionate 50 mcg/actuation spray,suspension 2 spray intranasal DAILY Qty: 16 RF: 3 hydrocodone-acetaminophen 10-325 mg tablet 1 tab PO 4X/DAY RF: 0 atenolol 50 mg tablet 50 mg PO DAILY RF: 0 levofloxacin 500 mg tablet 500 mg PO DAILY Qty: 10 RF: 0 guaifenesin 1,200 mg tablet extended release 12hr 1,200 mg PO Q12H RF: 0 trazodone 100 mg tablet 100 mg PO QHS PRN (Reason: insomnia) Qty: 90 RF: 1 venlafaxine 150 mg capsule,extended release 24hr 150 mg PO QHS Qty: 90 RF: 1 pantoprazole 40 mg tablet,delayed release (DR/EC) 40 mg PO QAM Qty: 90 RF: 1 cyclobenzaprine 5 mg tablet 5 mg PO TID Qty: 90 RF: 1 gabapentin 600 mg tablet 600 mg PO TID Qty: 90 RF: 1 Referrals / Follow Up: Miguel Stewart DO [Primary Care Provider] - Disposition Discharge Orders: Discharge Patient (Routine); Ordered 05/19/21 Ordered By: Dr. Brody Sandoval Charges/Coding Visit Charges Inpatient E&M: 08378 Disch Hosp
--- NOTE | 2021-05-19 19:03 | NURSING ---
Report called to Malathi Jacobsen RN. Pt going to room 5660. Updated s/o Judy, no answer, message left asking for call back.
[2021-05-22 14:35] LABS: Pathologist Comment/Body Fluid Reviewed
== END 2021-05-19 19:35 | disposition short-term general hospital (02) | DRG 177 ==
LOC: ED 19:18 → PCU 19:31
PROVIDERS: Internal Medicine Critical Care Medicine; Admitting Provider Internal Medicine; Emergency Provider Emergency Medicine; PCP Family Medicine; Visit Provider Internal Medicine
DX: J86.9 Pyothorax without fistula (principal); J18.9 Pneumonia, unspecified organism; E43 Unspecified severe protein-calorie malnutrition; J43.9 Emphysema, unspecified; I95.1 Orthostatic hypotension; E78.5 Hyperlipidemia, unspecified; F32.9 Major depressive disorder, single episode, unspecified; F17.290 Nicotine dependence, other tobacco product, uncomplicated; R63.4 Abnormal weight loss; Z68.20 Body mass index [BMI] 20.0-20.9, adult; Z66 Do not resuscitate; Z79.899 Other long term (current) drug therapy
CPT/HCPCS: 32555; 36415; 70450; 71045; 71046; 71275; 80048; 80053; 82945; 83605; 83615; 83735; 84100; 84156; 84157; 84484; 85025; 85379; 85610; 87040; 87070; 87075; 87205; 87426; 88108; 88305; 88313; 89050; 93005; 94640; 97162; 97166; 97802; 99251; 99285; 99406; J7030; J7040; Q9967; G0463

== ENCOUNTER → 2021-06-22 07:59 | Outpatient (CLI) | payer MEDICARE, MEDICAID, SELFPAY ==
[2021-05-16 08:54] VITALS: BMI 20.1
[2021-06-22 08:15] VITALS: PULSE 61; PULSE 63; PULSE 68; PULSE 69; PULSE 70; PULSE 71; O2SAT 90; O2SAT 91; O2SAT 93; O2SAT 94
--- NOTE | 2021-06-23 11:12 | WT_ITS ---
PSN 6 Minute Walk Test 6 Minute Walk Test 6 Minute Walk Test: 6 Minute Walk Test PSN:6-Minute Walk Test Start: 06/22/21 08:32 Freq: Status: Active Protocol: RESP.6MINW Document 06/22/21 08:15 BLANCA (Rec: 06/22/21 08:38 [id number]) 6 Minute Walk Test Date Performed 06/22/21 Time Performed 08:15 Height 6 ft Weight: 68.039 kg Weight in Pounds 150.[address]: Dorie Jeter [employer] MARKETING FIO2 (% Oxygen) 21 Assistive device used: None Pre-test Oxygen Delivery Method Room Air Pulse Ox (%) 94 Pulse Rate (60-100 beats/min) 63 Dyspnea Nasir Scale (0-10) 0 Exertion Nasir Scale (6-20) 6 1st minute Oxygen Delivery Method Room Air Pulse Ox (%) 90 Pulse Rate (60-100 beats/min) 70 2nd minute Oxygen Delivery Method Room Air Pulse Ox (%) 90 Pulse Rate (60-100 beats/min) 71 3rd minute Oxygen Delivery Method Room Air Pulse Ox (%) 93 Pulse Rate (60-100 beats/min) 69 4th minute Oxygen Delivery Method Room Air Pulse Ox (%) 91 Pulse Rate (60-100 beats/min) 69 5th minute Oxygen Delivery Method Room Air Pulse Ox (%) 93 Pulse Rate (60-100 beats/min) 68 6th minute Oxygen Delivery Method Room Air Pulse Ox (%) 94 Pulse Rate (60-100 beats/min) 68 Post-test Oxygen Delivery Method Room Air Pulse Ox (%) 94 Pulse Rate (60-100 beats/min) 61 Dyspnea Nasir Scale (0-10) 0 Exertion Nasir Scale (6-20) 11 Full Laps Walked 10 Partial Lap, Number of Tiles Walked 0 Total Distance Walked (ft) 590 Interpretation Interpretation: The patient ambulated 590 feet over the course of 6 minutes beginning on room air without assistive devices. Pretesting oxygen saturation was noted to be 94% on room air. With ambulation, the frida oxygen saturation was 90%. There was evidence of both impaired walk distance and significant exertional oxygen desaturation. Recommendations Recommendations: There is no indication for the use of supplemental oxygen at this time. However, close interval follow-up is recommended, given the degree of oxygen desaturation noted during the study.
== END ==
PROVIDERS: PCP Family Medicine; Referring Provider Nurse Practitioner Acute Care; Visit Provider Nurse Practitioner Acute Care
DX: J43.9 Emphysema, unspecified (principal)
CPT/HCPCS: 94618

== ENCOUNTER → 2021-06-23 08:02 | Outpatient (CLI) | payer MEDICARE, MEDICAID, SELFPAY ==
[2021-05-16 08:54] VITALS: BMI 20.1
--- NOTE | 2021-06-24 10:11 | PFT ---
INTRODUCTION: The patient is a 71-year-old male that presents for pulmonary function studies secondary to a diagnosis of emphysema. Respiratory therapy reported good patient effort. Bronchodilators were used during testing. INTERPRETATION: Forced expiration spirometry demonstrates the presence of a moderate large airways obstructive ventilatory defect. There is no significant response to aerosolized bronchodilators. Spirograms are of good quality and plateau normally. Body plethysmography was performed and revealed an elevated RV to 198% of predicted, indicative of underlying air trapping. Diffusing capacity by single breath CO is within normal limits. IMPRESSION: Irreversible moderate large airways obstructive ventilatory defect with associated air trapping and preserved diffusing capacity.
== END ==
PROVIDERS: PCP Family Medicine; Referring Provider Nurse Practitioner Acute Care; Visit Provider Nurse Practitioner Acute Care
DX: J43.9 Emphysema, unspecified (principal)
CPT/HCPCS: 94060; 94726; 94729

== ENCOUNTER 2021-07-01 13:32 | Inpatient (IN) | payer MEDICARE, MEDICAID, SELFPAY ==
[2021-07-01] VITALS (10 sets, daily range): BP systolic 105–137; BP diastolic 48–75; PULSE 78–104; RESP 17–23; TEMP 36.9–37.8; O2SAT 90–97; BMI 17.4; BMI 18.7
--- NOTE | 2021-07-01 13:53 | CT_ITS ---
STUDY: CT BRAIN WITHOUT CONTRAST REASON FOR EXAM: Male, 71 years old. Changes in mental status RADIATION DOSAGE (If Supplied By Facility): CTDIvol = ( 44.99 ) mGy, DLP = ( 897.35 ) mGycm TECHNIQUE: Transaxial CT imaging of the brain was performed without administration of intravenous contrast material. Individualized dose optimization techniques were used for this CT. COMPARISON: 18 May 2021 FINDINGS: Brain parenchyma is without focal lesions, mass effect, acute intracranial hemorrhage, extra parenchymal fluid collections, hydrocephalus or herniation. The skull is intact. CT/Brain/Head without Contrast IMPRESSION: 1. Normal CT brain. Electronically Signed: Ulysses Avery MD at 15:20 EDT Tel , Service support ,
--- NOTE | 2021-07-01 13:53 | RAD_ITS ---
STUDY: X-RAY CHEST REASON FOR EXAM: Male, 71 years old. weakness TECHNIQUE: Frontal portable view of the chest COMPARISON: 19 May 2021 FINDINGS: Appearance is comparable to prior. There is mild improvement in left lower lung disease, likely treated pneumonia and small effusion. Cardiac size is normal. There is no pneumothorax. Right pleural cavities clear. There are no regional opacities in the right lung. RAD/Chest 1 View (Portable) IMPRESSION: Slowly improving left lower lung disease, likely treated pneumonia. Diminishing left effusion. Electronically Signed: Ulysses Avery MD at 15:28 EDT Tel , Service support ,
--- NOTE | 2021-07-01 13:54 | EKG12_ITS ---
Test Reason : WEAKNESS Blood Pressure : / mmHG Vent. Rate : 092 BPM Atrial Rate : 092 BPM P-R Int : 138 ms QRS Dur : 100 ms QT Int : 344 ms P-R-T Axes : 079 081 069 degrees QTc Int : 425 ms Sinus rhythm with frequent Premature ventricular complexes Otherwise normal ECG Confirmed by COURTNEY WILCOX, JULIET ([id number]), editor department MIMI RAPHAEL ([id number]) on 07/03/2021 10:36:24 AM Referred By: NATHANIEL Confirmed By:JULIET VALDEZ MD
--- NOTE | 2021-07-01 13:55 | EDS_ITS ---
HPI History of Present Illness Chief Complaint: Weakness Detail of Chief Complaint: Generalized weakness Informant: patient and spouse/S.O. Narrative Narrative: Patient presents to the emergency department complaint of generalized weakness today. Patient did not get out of bed like he normally does and went to check on him and noted that he had urinated on himself. Patient also has been incontinent of stool x3. He is not had any diarrhea. Patient did complain of a headache today. He is not had any falls or head injuries. Patient had an admission over a month ago for pneumonia and empyema and was transferred to [facility] where he had a thoracotomy. Patient had been healing well and doing well since that time. Patient has been vaccinated against COVID-19. He complains of some mild dysuria. He is not had any fevers. He denies chest pain or abdominal pain. states he is confused and not himself. Prior similar symptoms: No PFSH PFSH Medical History Arthritis Chronic pain Depression GERD (gastroesophageal reflux disease) History of pneumonia History of stomach ulcers Hyperlipidemia Hypertension IBS (irritable bowel syndrome) Kidney stones Neuropathy Smoker Syncope Home Medications pravastatin 40 mg tablet 40 mg PO QHS #90 tab 03/07/21 [Rx Last Taken 05/17/21] pantoprazole 40 mg tablet,delayed release 40 mg PO QAM #90 tab 04/26/21 [Rx Last Taken 05/18/21] atenolol 50 mg PO DAILY 05/05/21 [History Last Taken 05/18/21] gabapentin 600 mg tablet 600 mg PO TID #90 tab 05/18/21 [Rx Last Taken 05/18/21] docusate sodium 100 mg capsule 100 mg PO TID PRN cap 06/01/21 [History Last Taken Unknown] polyethylene glycol 3350 17 gram/dose oral powder 17 g PO DAILY 06/01/21 [History Last Taken Unknown] fluticasone propionate 50 mcg/actuation nasal spray,suspension 2 spray INTRANASAL DAILY #16 g 06/08/21 [Rx Last Taken Unknown] hydrocodone 10 mg-acetaminophen 325 mg tablet 1 tab PO .qid PRN 30 Days #120 tab 06/23/21 [Rx Last Taken Unknown] albuterol sulfate 90 mcg/actuation aerosol inhaler 2 puff INHALATION Q6H #8.5 g 06/27/21 [Rx Last Taken Unknown] trazodone 100 mg PO QHS 07/01/21 [History Last Taken Unknown] venlafaxine 150 mg PO DAILY 07/01/21 [History Last Taken Unknown] Allergy/AdvReac Type Severity Reaction Status Date / Time aspirin Allergy Severe bleeding Verified 06/01/21 13:09 Family History Mother Myocardial infarction, Onset Age: 49 Depression Father Hypertension CVA (cerebral vascular accident), Onset Age: 49 Sister Thyroid disorder Uncle ulcers Surgical History History of endoscopy Social History Smoking Status: Current every day smoker tobacco type: cigars alcohol intake: never substance use type: does not use what type of physical activity do you participate in: other details: yard work, house work ROS ROS ED ROS Narrative Generalized weakness and confusion Constitutional Constitutional ED: Reports systems reviewed and no addt'l complaints, except as documented; Denies body ache(s), change in weight or chills Eyes Eyes: Denies acute decrease in peripheral vision, change in vision, double vision or loss of vision ENT ENT ED: Reports none; Denies ear pain, lip swelling, loss taste/smell, neck pain, otalgia or sore throat Cardiovascular Cardiovascular: Reports none; Denies abdominal pain, chest pain with activity, leg edema, lightheadedness, palpitations, rapid heart rate or syncope Respiratory/Chest Respiratory/Chest: Reports none; Denies change in mental status, dry cough, dyspnea, hemoptysis, shortness of breath at rest or shortness of breath with exertion Gastrointestinal Gastrointestinal: Reports none; Denies abdominal pain, change in stool character, diarrhea, hematemesis, hematochezia, melena, rectal bleeding or vomiting Genitourinary Genitourinary ED: Reports none and other Details: Urine incontinence ; Denies abdominal discomfort, anuria, dysuria, genital pain or polyuria Musculoskeletal Musculoskeletal: Reports none; Denies arthralgias, back pain, difficulty w alking, extremity pain, muscle weakness or myalgias Integumentary Reports none; Denies abscess or rash Neurologic Neurologic: Reports none and headache(s); Denies abnormal gait, confusion, focal weakness, frequent falls, loss of vision, numbness, paresthesias, radicular pain, vertigo or weakness Psychiatric Psychiatric: Reports systems reviewed and no addt'l complaints, except as documented and none; Denies behavioral changes, confusion, difficulty concentrating, hallucinations, suicidal ideation, tactile hallucinations or visu al hallucinations Endocrine Endocrinology: Denies none, cold intolerance, excessive sweating, fatigue or heat intolerance Hematologic/Lymphatic Hematologic/Lymphatic: Reports none; Denies anemia, easy bleeding or easy bruising Allergic/Immunologic Allergic/Immunologic ED: Denies as per HPI, none, lip swelling, mouth swelling, throat swelling, tongue swelling or hives EXAM Physical Exam Const Vital Signs: 07/01/21 13:36 07/01/21 14:34 Temperature 98.9 F Temperature Source Temporal Pulse Rate 96 91 Respiratory Rate 18 18 Respiratory Effort Normal Non-Labored Respiratory Pattern Normal Blood Pressure 111/48 L 105/59 L Blood Pressure Mean 69 74 Pulse Ox 94 91 Oxygen Delivery Method Room Air Room Air Positive well nourished and well developed General Appearance ED: well developed and NAD HEENT Reports TM's clear and moist mucous membranes normocephalic and atraumatic; Negative for trauma or tenderness Tympanic Membrane ED: Yes TM's clear Eyes PERRL and EOMs intact bilaterally General Eye ED: Negative for pale conjunctiva or scleral icterus Neck no lymphadenopathy, supple and no JVD General: Negative for tenderness Chest Wall inspection of chest normal and palpation of chest normal Chest: Negative for tenderness Resp normal respiratory effort and clear to auscultation bilaterally Effort and Inspection: Negative for respiratory distress or pain with movement Auscultation: Negative for rhonchi, wheezes or diminished lung sounds Cardio regular rate, regular rhythm, S1 normal heart sound, S2 normal heart sound and no murmurs Peripheral Pulses: pulses 2+ throughout GI normal to inspection, nondistended, normoactive bowel sounds, soft to palpation, non-tender, non-distended and no masses Back/Spine no CVA tenderness and no thoracic nor lumbar tenderness Extremity normal to inspection General Extremety ED: Negative for edema General Extremity: Negative for edema Neuro oriented x3, CN's II-XII intact bilaterally, no sensory deficits noted and gait normal Sensorium / Orientation: awake, alert, oriented to person, oriented to place and oriented to time Motor Exam: strength 5/5 throughout and strength abnormal Psych mental status grossly normal Skin no rashes or lesions noted and no wounds MDM MDM MDM Narrative Medical decision making narrative: Patient positive for Covid 19. Case will be discussed with hospitalist evaluate for admission as patient generally very weak. Lab Data Attestation: I reviewed the patient's lab results. Labs: Laboratory Results - last 24 hr 07/01/21 07/01/21 07/01/21 14:20 14:20 14:20 WBC 4.4 RBC 3.82 L Hgb 12.6 L Hct 39.0 L MCV 102.1 H MCH 33.0 H MCHC 32.3 RDW Std Deviation 50.1 H RDW Coeff of Issa 13.2 Plt Count 217 MPV 9.4 Immature Gran % (Auto) 0.200 Neut % (Auto) 80.4 H Lymph % (Auto) 8.[address] [place] % (Auto) 11.2 H Eos % (Auto) 0.0 Baso % (Auto) 0.2 Absolute Neuts (auto) 3.5 Absolute Lymphs (auto) 0.35 L Nucleated RBC % 0 Platelet Estimate ADEQUATE Macrocytosis 1+ Sodium 136 Potassium 3.8 Chloride 102 Carbon Dioxide 30.0 Anion Gap 4 L BUN 23 H Creatinine 0.67 L Estim Creat Clear Calc 60.86 Est GFR (MDRD) Af Amer 151 Est GFR (MDRD) Non-Af 125 BUN/Creatinine Ratio 34.4 H Glucose 106 Lactic Acid 1.7 Calcium 9.9 Troponin I High Sens 16 Radiography Diagnostic Testing: Radiology Impression Brain CT 07/01/21 13:53 IMPRESSION: 1. Normal CT brain. Electronically Signed: Ulysses Avery MD at 15:20 EDT Tel , Service support , Chest X-Ray 07/01/21 13:53 IMPRESSION: Slowly improving left lower lung disease, likely treated pneumonia. Diminishing left effusion. Electronically Signed: Ulysses Avery MD at 15:28 EDT Tel , Service support , EKG Initial EKG: Attestation: I personally reviewed and interpreted this EKG as follows: Comments: Sinus rhythm with a ventricular rate of of 92 bpm with occasional PVCs. Prior EKG tracings: available for review Prior: Unchanged Discharge Plan Dx/Rx/DC Orders Clinical Impression: COVID-19, Weakness Disposition Disposition: Acute Care Hospital [facility]
[2021-07-01 14:37] LABS: Absolute Lymphocyte Count 0.35 X10^3/uL (0.83-4.51); Absolute Neutrophil Count 3.5 X10^3/uL (2.0-7.7); Basophil# 0.01 X10^3/uL; Basophil% 0.2 % (0-1); Hemoglobin 12.6 g/dL (13.0-16.5); Lymphocyte # 0.35 X10^3/ul (0.83-4.51); Mean Corp Hgb Conc 32.3 g/dL (32-36); Mean Corpuscular Volume 102.1 fL (80-94); Mean Platelet Vol. 9.4 fl (6.2-12.0); Monocyte# 0.49 X10^3/uL; Monocyte% 11.2 % (0-10); NRBC Flagged by Analyzer 0 % (0-5); Neutrophil # 3.52 X10^3/uL (2.7-7.7); Neutrophil % 80.4 % (47-70); POSITIVE DIFFERENTIAL YES; POSITIVE MORPHOLOGY YES; Platelet Count 217 K/mm3 (150-450); RBC Distribution Width CV 13.2 % (11.6-14.6); RBC Distribution Width SD 50.1 fl (35.1-43.9); Red Blood Count 3.82 M/mm3 (4.6-6.2); White Blood Count 4.4 K/mm3 (4.4-11.0)
[2021-07-01 14:38] LABS: Differential Indicated SCAN CRITERIA MET
[2021-07-01] MEDS: 0.9% Normal Saline 1,000 ML 150 ML IV (14:38)
[2021-07-01 14:56] LABS: Anion Gap 4 (5-15); BUN 23 mg/dL (7-18); BUN/Creat Ratio 34.4 RATIO (10-20); Calcium,Total 9.9 mg/dL (8.5-10.1); Chloride 102 mmol/L (98-107); Creatinine, Serum 0.67 mg/dL (0.70-1.30); EST Glomerular Filtration Rate 125 mL/min (>60); Est Glom Filt Rate - Afr Amer 151 mL/min (>60); Estimated Creatinine Clearance 60.86 ml/min; Glucose 106 mg/dL (74-106); Potassium 3.8 mmol/L (3.5-5.1); Sodium Level 136 mmol/L (136-145); Troponin-I HS 16 pg/mL (3.0-78.0)
[2021-07-01 15:00] LABS: Macrocytosis 1+; Platelet Estimate ADEQUATE (ADEQ)
[2021-07-01 15:01] LABS: Lactic Acid 1.7 mmol/L (0.4-1.9)
--- NOTE | 2021-07-01 17:00 | PCM.HP.STD ---
HPI - General General Date of Admission: 07/01/21 HPI Narrative PEDRO ALBRECHT, is a 71 M who a month ago was admitted for pneumonia complicated by empyema requiring thoracotomy. Today presents with generalized weakness, malaise, fatigue, anorexia and alteration in mental status. Patient extremely weak and unable to get out of bed. Some urinary and fecal continence most likely due to his generalized weakness. Brought to the emergency room and found to be COVID-19 positive. Patient denies any respiratory symptoms. Appetite and oral intake as well has been poor. Significant weight loss over the last 2 years. [facility] Medical History Arthritis Chronic pain Depression GERD (gastroesophageal reflux disease) History of pneumonia History of stomach ulcers Hyperlipidemia Hypertension IBS (irritable bowel syndrome) Kidney stones Neuropathy Smoker Syncope Home Medications pravastatin 40 mg tablet 40 mg PO QHS #90 tab 03/07/21 [Rx Last Taken 05/17/21] pantoprazole 40 mg tablet,delayed release 40 mg PO QAM #90 tab 04/26/21 [Rx Last Taken 05/18/21] atenolol 50 mg PO DAILY 05/05/21 [History Last Taken 05/18/21] gabapentin 600 mg tablet 600 mg PO TID #90 tab 05/18/21 [Rx Last Taken 05/18/21] docusate sodium 100 mg capsule 100 mg PO TID PRN cap 06/01/21 [History Last Taken Unknown] polyethylene glycol 3350 17 gram/dose oral powder 17 g PO DAILY 06/01/21 [History Last Taken Unknown] fluticasone propionate 50 mcg/actuation nasal spray,suspension 2 spray INTRANASAL DAILY #16 g 06/08/21 [Rx Last Taken Unknown] hydrocodone 10 mg-acetaminophen 325 mg tablet 1 tab PO .qid PRN 30 Days #120 tab 06/23/21 [Rx Last Taken Unknown] albuterol sulfate 90 mcg/actuation aerosol inhaler 2 puff INHALATION Q6H #8.5 g 06/27/21 [Rx Last Taken Unknown] trazodone 100 mg PO QHS 07/01/21 [History Last Taken Unknown] venlafaxine 150 mg PO DAILY 07/01/21 [History Last Taken Unknown] Allergy/AdvReac Type Severity Reaction Status Date / Time aspirin Allergy Severe bleeding Verified 06/01/21 13:09 Family History Mother Myocardial infarction, Onset Age: 49 Depression Father Hypertension CVA (cerebral vascular accident), Onset Age: 49 Sister Thyroid disorder Uncle ulcers Surgical History History of endoscopy Social History Smoking Status: Current every day smoker tobacco type: cigars alcohol intake: never substance use type: does not use what type of physical activity do you participate in: other details: yard work, house work ROS ROS Narrative [place] any chest pain or shortness of breath. All other systems reviewed and essentially negative. Vital Signs Vital Signs Vital Signs: 07/01/21 13:36 07/01/21 14:34 07/01/21 16:10 Temperature 37.2 C 37.8 C H Temperature Source Temporal Temporal Pulse Rate 96 91 87 Respiratory Rate 18 18 23 H Respiratory Effort Normal Non-Labored Respiratory Pattern Normal Blood Pressure 111/48 L 105/59 L 113/58 L Blood Pressure Mean 69 74 76 Pulse Ox 94 91 90 Oxygen Delivery Method Room Air Room Air Room Air Weight Weight: 63.503 kg Body Mass Index (BMI) 17.4 Physical Exam Narrative General. Chronically ill looking, acutely ill looking, weak appearing, somnolent, psychomotor retardation, cachectic. HEENT. Bitemporal and bilateral buccal fat pad wasting. Neck. Neck is supple. Heart. First and second heart sounds heard grade 2/3 systolic murmur noted.. Lungs. Slightly harsh breath sounds on the right. Otherwise clear. Abdomen. Scaphoid. Nontender, no organomegaly and no masses. Extremities. No pedal edema. 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 Skin. No rash noted. Results Lab / Micro Data Result Diagrams: 07/01/21 14:20 07/01/21 14:20 Labs: Laboratory Results - last 24 hr 07/01/21 14:20: WBC 4.4, RBC 3.82 L, Hgb 12.6 L, Hct 39.0 L, MCV 102.1 H, MCH 33.0 H, MCHC 32.3, RDW Std Deviation 50.1 H, RDW Coeff of Iss[place] 13.2, Plt Count 217, MPV 9.4, Immature Gran % (Auto) 0.200, Neut % (Auto) 80.4 H, Lymph % (Auto) 8.0 L, [place] % (Auto) 11.2 H, Eos % (Auto) 0.0, Baso % (Auto) 0.2, Absolute Neuts (auto) 3.5, Absolute Lymphs (auto) 0.35 L, Nucleated RBC % 0, Platelet Estimate ADEQUATE, Macrocytosis 1+ 07/01/21 14:20: Sodium 136, Potassium 3.8, Chloride 102, Carbon Dioxide 30.0, Anion Gap 4 L, BUN 23 H, Creatinine 0.67 L, Estim Creat Clear Calc 60.86, Est GFR (MDRD) Af Amer 151, Est GFR (MDRD) Non-Af 125, BUN/Creatinine Ratio 34.4 H, Glucose 106, Calcium 9.9, Troponin I High Sens 16 07/01/21 14:20: Lactic Acid 1.7 Micro: Microbiology 07/01/21 14:30 Nasal Secretion SARS-CoV-2 Antigen (Rapid) - Final SARS-CoV-2 (COVID 19) Radiology Impression Brain CT 07/01/21 13:53 IMPRESSION: 1. Normal CT brain. Electronically Signed: Ulysses Avery MD at 15:20 EDT Tel , Service support , Chest X-Ray 07/01/21 13:53 IMPRESSION: Slowly improving left lower lung disease, likely treated pneumonia. Diminishing left effusion. Electronically Signed: Ulysses Avery MD at 15:28 EDT Tel , Service support , Assessment & Plan Assessment/Plan (1) COVID-19: PLAN: Not a severe infection. Most likely the cause of his systemic symptoms, most significant of which is generalized weakness and anorexia. No indication for treatment with remdesivir and dexamethasone. We will continue to monitor. (2) Generalized weakness: PLAN: Likely secondary to COVID-19 infection occurring on top of his already chronic ill health. Supportive care. Consult physical and Occupational Therapy. May require rehab. (3) Severe protein-calorie malnutrition: PLAN: Severe protein calorie malnutrition with cachexia and significant weight loss. Nutritional supplementation. Consult dietitian/form stripper. (4) COPD (chronic obstructive pulmonary disease): QUALIFIERS: COPD type: emphysema Emphysema type: unspecified Qualified Code(s): J43.9 - Emphysema, unspecified PLAN: Not in exacerbation. Possibly because of his weight loss (pulmonary cachexia) (5) Ventricular ectopy: PLAN: Frequent ventricular ectopics noted on telemetry. Maintain on telemetry. Check serum magnesium and phosphorus. Correct if needed. Charges/Coding Visit Charges Inpatient E&M: 17498 Init Hosp L3
[2021-07-01 17:11] LABS: Magnesium 1.6 mg/dL (1.6-2.6)
[2021-07-01] MEDS: 0.9% Saline Lock 10 ML Syringe IV (18:14)
[2021-07-01] MEDS: Gabapentin 400 MG Capsule PO (22:30)
[2021-07-01] MEDS: traZODone 100 MG Tablet PO (22:30)
[2021-07-01] MEDS: Pravastatin 40 MG Tablet PO (22:30)
--- NOTE | 2021-07-01 23:55 | PCS.PANDOC ---
PANDEMIC DOCUMENTATION INITIATED: Date: 05/29/2021 Time: 190
[2021-07-02] VITALS (13 sets, daily range): BP systolic 109–131; BP diastolic 58–67; PULSE 58–86; RESP 18; TEMP 36.3–37.1; O2SAT 92–97
[2021-07-02 06:25] LABS: Absolute Lymphocyte Count 0.76 X10^3/uL (0.83-4.51); Absolute Neutrophil Count 5.5 X10^3/uL (2.0-7.7); Basophil# 0.01 X10^3/uL; Basophil% 0.1 % (0-1); Hematocrit 39.6 % (40-54); Lymphocyte # 0.76 X10^3/ul (0.83-4.51); Lymphocyte % 11.1 % (19-41); Mean Corp Hgb Conc 32.8 g/dL (32-36); Mean Corpuscular Hgb 33.7 pg (27.0-32.0); Mean Corpuscular Volume 102.6 fL (80-94); Mean Platelet Vol. 9.6 fl (6.2-12.0); Monocyte# 0.54 X10^3/uL; Monocyte% 7.9 % (0-10); NRBC Flagged by Analyzer 0 % (0-5); Neutrophil % 80.6 % (47-70); POSITIVE MORPHOLOGY YES; Platelet Count 198 K/mm3 (150-450); RBC Distribution Width CV 13.3 % (11.6-14.6); RBC Distribution Width SD 50.8 fl (35.1-43.9); Red Blood Count 3.86 M/mm3 (4.6-6.2); White Blood Count 6.8 K/mm3 (4.4-11.0)
[2021-07-02 06:39] LABS: Differential Indicated SCAN CRITERIA MET
[2021-07-02 07:07] LABS: ALB/GLOB Ratio 0.5 RATIO (0.9-2.4); AST(SGOT) 31 U/L (15-37); Alanine Aminotransfer ALT/SGPT 22 U/L (16-61); Albumin, Serum 2.3 g/dL (3.2-5.0); Alkaline Phosphatase 92 U/L (45-117); Anion Gap 2 (5-15); BUN 11 mg/dL (7-18); BUN/Creat Ratio 31.2 RATIO (10-20); Calcium,Total 9.1 mg/dL (8.5-10.1); Chloride 106 mmol/L (98-107); Creatinine, Serum 0.35 mg/dL (0.70-1.30); EST Glomerular Filtration Rate 261 mL/min (>60); Est Glom Filt Rate - Afr Amer 316 mL/min (>60); Estimated Creatinine Clearance 59.99 ml/min; Globulin 4.2 g/dL (2.2-4.2); Glucose 97 mg/dL (74-106); Potassium 3.6 mmol/L (3.5-5.1); Protein, Total 6.5 g/dL (6.4-8.2); Sodium Level 140 mmol/L (136-145); Thyroid Stim Hormone (TSH) 0.32 uIU/mL (0.358-3.74)
[2021-07-02] MEDS: Atenolol 50 MG Tablet PO (08:03)
[2021-07-02] MEDS: Enoxaparin 40 MG/0.4 ML Syringe SC (08:04)
[2021-07-02] MEDS: Pantoprazole Sodium 40 MG Tablet PO (08:04)
[2021-07-02] MEDS: Venlafaxine XR 150 MG Capsule PO (08:04)
[2021-07-02] MEDS: Multivitamins,Therapeutic Tablet 1 TABLET PO (08:04)
[2021-07-02] MEDS: Gabapentin 400 MG Capsule PO ×2 (12:26→18:30)
[2021-07-02] MEDS: HYDROcodone Bitartrate/Apap 5/325 Tablet PO ×2 (12:47→18:37)
[2021-07-02] MEDS: 0.9% Saline Lock 10 ML Syringe IV ×3 (14:01→21:44)
[2021-07-02] MEDS: cycloBENZAPRine HCl 5 MG TABLET PO ×2 (14:01→21:44)
--- NOTE | 2021-07-02 16:15 | PCM.PN.HOSP ---
Subjective Subjective Patient was seen and examined today, he is on nasal cannula oxygen presently, he does not appear in respiratory distress and he does not complain of any fevers or chills. Patient states he was vaccinated for COVID-19. Objective Data Objective Data Vital Signs: Vital Signs Temp Pulse Resp BP Pulse Ox 97.7 F L 58 L 18 112/58 L 94 07/02/21 12:34 07/02/21 12:34 07/02/21 12:34 07/02/21 12:34 07/02/21 12:34 Oxygen Flow Rate (L/min) 3 Oxygen Delivery Method Nasal Cannula Weight: 62.6 kg Body Mass Index (BMI) 18.7 Intake & Output: Intake and Output for Last 24 Hours 06/30/21 07/01/21 07/02/21 23:59 23:59 23:59 Intake Total 540 / 540 1754 / 1754 Output Total 326 / 326 Balance 540 / 540 1428 / 1428 Lab / Micro Data Result Diagrams: 07/02/21 05:27 07/02/21 05:27 Labs: Laboratory Results - last 24 hr 07/01/21 14:20: Magnesium 1.6 07/02/21 05:27: WBC 6.8, RBC 3.86 L, Hgb 13.0, Hct 39.6 L, MCV 102.6 H, MCH 33.7 H, MCHC 32.8, RDW Std Deviation 50.8 H, RDW Coeff of Issa 13.3, Plt Count 198, MPV 9.6, Immature Gran % (Auto) 0.300, Neut % (Auto) 80.6 H, Lymph % (Auto) 11.1 L, [place] % (Auto) 7.9, Eos % (Auto) 0.0, Baso % (Auto) 0.1, Absolute Neuts (auto) 5.5, Absolute Lymphs (auto) 0.76 L, Nucleated RBC % 0 07/02/21 05:27: Sodium 140, Potassium 3.6, Chloride 106, Carbon Dioxide 32.0, Anion Gap 2 L, BUN 11, Creatinine 0.35 L, Estim Creat Clear Calc 59.99, Est GFR (MDRD) Af Amer 316, Est GFR (MDRD) Non-Af 261, BUN/Creatinine Ratio 31.2 H, Glucose 97, Calcium 9.1, Total Bilirubin 0.30, AST 31, ALT 22, Alkaline Phosphatase 92, Total Protein 6.5, Albumin 2.3 L, Globulin 4.2, Albumin/Globulin Ratio 0.5 L, TSH 0.32 L Micro: Microbiology 07/01/21 14:30 Nasal Secretion SARS-CoV-2 Antigen (Rapid) - Final SARS-CoV-2 (COVID 19) Physical Exam Const alert, oriented x3 and no apparent distress General Appearance: cooperative, well kempt and well developed Orientation / Consciousness: awake, oriented to person, oriented to place and oriented to time Nutritional Appearance: cachectic HEENT normocephalic, head/scalp atraumatic and moist oral mucous membranes Head and Scalp: normocephalic Eyes PERRL, EOMs intact bilaterally and conjunctivae normal Neck nuchal rigidity, supple, no JVD, thyroid normal and no carotid bruits General: trachea midline Resp normal respiratory effort, no retractions, no use of accessory muscles and clear to auscultation bilaterally Auscultation: Negative for rales, rhonchi or wheezes Cardio regular rate, regular rhythm, S1 normal heart sound, S2 normal heart sound, no murmurs, no rub, no gallops and no clicks GI normal to inspection, nondistended, normoactive bowel sounds, soft to palpation, non-tender and non-distended Extremity normal to inspection and no clubbing, cyanosis or edema Skin no rashes or lesions noted, no wounds, skin turgor normal and no jaundice General Skin Exam: no breakdown Neuro oriented x3, CN's II-XII intact bilaterally, no focal motor deficits and no sensory deficits noted Sensorium / Orientation: awake and alert Speech: speech normal Psych thought process normal and affect normal Assessment & Plan Assessment/Plan (1) COVID-19: PLAN: 1. COVID-19 pneumonia-patient is hypoxic and he does not wear oxygen at home, I believe that he fits criteria to treat with remdesivir and dexamethasone, I talked with his significant other by phone and confirmed that he is not on home O2. I will start dexamethasone and remdesivir. #2 acute hypoxic respiratory failure-patient is currently on 3 L via nasal cannula, his O2 sat will be monitored #3 generalized debility-patient will be seen by PT and OT #5 severe protein and caloric malnutrition-nutritional services will see patient #6 chronic obstructive pulmonary disease Charges/Coding Visit Charges Inpatient E&M: 83626 Subs Hosp L2
[2021-07-02] MEDS: dexAMETHasone 4 MG Tablet 6 MG PO (18:30)
[2021-07-02] MEDS: traZODone 100 MG Tablet PO (21:44)
[2021-07-02] MEDS: Pravastatin 40 MG Tablet PO (21:44)
[2021-07-03] VITALS (12 sets, daily range): BP systolic 117–132; BP diastolic 58–70; PULSE 57–73; RESP 14–20; TEMP 35.8–36.6; O2SAT 93–97
[2021-07-03] MEDS: cycloBENZAPRine HCl 5 MG TABLET PO ×3 (05:20→22:39)
[2021-07-03 08:33] LABS: Vitamin B12 764 pg/mL (211-911)
[2021-07-03] MEDS: Gabapentin 400 MG Capsule PO ×3 (09:33→17:59)
[2021-07-03] MEDS: Venlafaxine XR 150 MG Capsule PO (09:34)
[2021-07-03] MEDS: dexAMETHasone 4 MG Tablet 6 MG PO (09:34)
[2021-07-03] MEDS: Enoxaparin 40 MG/0.4 ML Syringe SC (09:34)
[2021-07-03] MEDS: Multivitamins,Therapeutic Tablet 1 TABLET PO (09:35)
[2021-07-03] MEDS: Pantoprazole Sodium 40 MG Tablet PO (09:35)
[2021-07-03] MEDS: Polyethylene Glycol 3350 17 GM PACKET PO (09:35)
[2021-07-03] MEDS: Atenolol 50 MG Tablet PO (09:36)
[2021-07-03] MEDS: HYDROcodone Bitartrate/Apap 5/325 Tablet PO ×2 (09:41→18:01)
[2021-07-03 10:10] LABS: Bacteria 0 SEEN /hpf (None Seen); Mucous, Urine 0 SEEN /hpf (<or=2+); Red Blood Cells-Urine 0 SEEN /hpf (0-5); Squamous Epithelial Cells - UA 0 SEEN /hpf (0-5); White Blood Cells 0 SEEN /hpf (0-5)
[2021-07-03 10:13] LABS: Color, Urine Yellow (Yellow); Glucose, Dipstick Normal (Normal); Ketone-Dipstick Negative (Negative); Leukocyte Esterase-Dipstick Negative /ul (Negative); Nitrite-Dipstick Negative (Negative); Occult Blood-Urine 10 /ul (Negative); Protein-Dipstick 30 mg/dl (Negative); Specific Gravity, Urine 1.015 (1.002-1.030); Urine Bilirubin Dipstick Negative (Negative); Urine Clarity Clear (Clear); Urine Urobilinogen 1 mg/dl (Normal); Urine pH 6.5 (5.0 - 8.0)
--- NOTE | 2021-07-03 12:45 | PCS.PANDOC ---
PANDEMIC DOCUMENTATION INITIATED: Date: 05/29/2021 Time: 190
--- NOTE | 2021-07-03 13:05 | CASEMGMT ---
DEZ LOVE Assessment: Face to Face with pt for initial transition planning/care coordination assessment. DEZ LOVE introduced self and role at [facility], pt voices understanding and consents to assessment. Pt is A/O x4 and answers all questions appropriately at this time. Pt sitting up in bed with O2 on in no distress. Care providers, pharmacy, and demographics verified/updated. Admitting Dx: COVID 19 Infection PCP: Erika Stewart Specialists: Terry pulnav; Terry, lung surgeon Preferred Pharmacy: [facility] Insurance: [facility] Prescription Benefit: yes LW/HPOA: Pt states he has a LW/DPOA and his DPOA is Judy, his sig other. He is aware that these documents are not on file at [facility] and he may bring in to be scanned to the chart. LNOK: Judy Regan, sig other Living Arrangements: Pt lives with sig other in a two story house with a ramp to enter then 5 steps. Pt does use both floors. Pt reports being I in ADL's and denies concerns at home. Transportation: Pt drives self and denies concerns with transportation. DME/HHC/SNF: Pt has a walker, BSC, cane and pulse ox. Pt normally does not use any DME to ambulate. Pt denies previous HHC or SNF stays. Pt reports he was first tested at [facility] for COVID. He states he can quarantine from sig other by using separate bedrooms and bathrooms. Pt has family who can provide him with groceries and supplies. Provided pt with a verbal list of local in network DME companies, pt chose [employer] should he need home O2. Pt states no concerns with going home at time of dc. Pt states no further concerns/needs. CM to follow. Advised pt to ask CM if any further question/concerns/needs arise, voices understanding. Pt Goal: Home Plan: Home
--- NOTE | 2021-07-03 18:38 | PN.HOSP_ITS ---
Subjective Subjective Patient was seen and examined today, he is currently on 3 L via nasal cannula. Patient does not complain of any shortness of breath, chest pain, or fevers or chills. Objective Data Objective Data Vital Signs: Vital Signs Temp Pulse Resp BP Pulse Ox 96.9 F L 60 20 H 119/70 93 07/03/21 15:00 07/03/21 18:00 07/03/21 15:00 07/03/21 15:00 07/03/21 15:00 Oxygen Flow Rate (L/min) 3 Oxygen Delivery Method Nasal Cannula Weight: 62.6 kg Body Mass Index (BMI) 18.7 Intake & Output: Intake and Output for Last 24 Hours 07/01/21 07/02/21 07/03/21 23:59 23:59 23:59 Intake Total 540 / 540 3504 / 3604 1956.66 / 1956.66 Output Total 626 / 926 1150 / 1150 Balance 540 / 540 2878 / 2678 806.66 / 806.66 Lab / Micro Data Result Diagrams: 07/02/21 05:27 07/02/21 05:27 Labs: Laboratory Results - last 24 hr 07/02/21 05:27: Vitamin B12 764 07/03/21 10:00: Urine Color Yellow, Urine Clarity Clear, Urine pH 6.5, Ur Specific [place] 1.015, Urine Protein 30 H, Urine Glucose (UA) Normal, Urine Ketones Negative, Urine Occult Blood 10 H, Urine Nitrite Negative, Urine Bilirubin Negative, Urine Urobilinogen 1 H, Ur Leukocyte Esterase Negative, Urine RBC 0 SEEN, Urine WBC 0 SEEN, Ur Squamous Epith Cells 0 SEEN, Urine Bacteria 0 SEEN, Urine Mucus 0 SEEN Micro: Microbiology 07/01/21 14:25 Blood Culture (Wb) - Anticubital Right Blood Culture - Preli minary No growth in 48 hours. 07/01/21 14:20 Blood Culture (Wb) - Left Forearm Blood Culture - Preliminary No growth in 48 hours. 07/01/21 14:30 Nasal Secretion SARS-CoV-2 Antigen (Rapid) - Final SARS-CoV-2 (COVID 19) Physical Exam Narrative alert, oriented x3 and no apparent distress General Appearance: cooperative, well kempt and well developed Orientation / Consciousness: awake, oriented to person, oriented to place and oriented to time Nutritional Appearance: cachectic HEENT normocephalic, head/scalp atraumatic and moist oral mucous membranes Head and Scalp: normocephalic Eyes PERRL, EOMs intact bilaterally and conjunctivae normal Neck nuchal rigidity, supple, no JVD, thyroid normal and no carotid bruits General: trachea midline Resp normal respiratory effort, no retractions, no use of accessory muscles and clear to auscultation bilaterally Auscultation: Negative for rales, rhonchi or wheezes Cardio regular rate, regular rhythm, S1 normal heart sound, S2 normal heart sound, no murmurs, no rub, no gallops and no clicks GI normal to inspection, nondistended, normoactive bowel sounds, soft to palpation, non-tender and non-distended Extremity normal to inspection and no clubbing, cyanosis or edema Skin no rashes or lesions noted, no wounds, skin turgor normal and no jaundice General Skin Exam: no breakdown Neuro oriented x3, CN's II-XII intact bilaterally, no focal motor deficits and no sensory deficits noted Sensorium / Orientation: awake and alert Speech: speech normal Psych thought process normal and affect normal Assessment & Plan Assessment/Plan (1) COVID-19: PLAN: 1. COVID-19 pneumonia-patient is on day 2 of remdesivir and day 3 of dexamethasone #2 acute hypoxic respiratory failure-patient is currently on 3 L via nasal cannula, his O2 sat will be monitored #3 generalized debility-patient will continue to be seen by PT and OT #5 severe protein and caloric malnutrition-nutritional services is seeing patient #6 chronic obstructive pulmonary disease Charges/Coding Visit Charges Inpatient E&M: 97151 Subs Hosp L2
[2021-07-03] MEDS: traZODone 100 MG Tablet PO (22:39)
[2021-07-03] MEDS: Pravastatin 40 MG Tablet PO (22:39)
[2021-07-04] VITALS (16 sets, daily range): BP systolic 109–145; BP diastolic 58–77; PULSE 51–63; RESP 18–34; TEMP 35.4–36.6; O2SAT 93–98
[2021-07-04] MEDS: HYDROcodone Bitartrate/Apap 5/325 Tablet PO ×4 (00:25→23:19)
[2021-07-04] MEDS: cycloBENZAPRine HCl 5 MG TABLET PO ×3 (05:50→22:09)
[2021-07-04] MEDS: Atenolol 50 MG Tablet PO (09:30)
[2021-07-04] MEDS: Gabapentin 400 MG Capsule PO ×3 (09:31→17:08)
[2021-07-04] MEDS: Multivitamins,Therapeutic Tablet 1 TABLET PO (09:31)
[2021-07-04] MEDS: dexAMETHasone 4 MG Tablet 6 MG PO (09:31)
[2021-07-04] MEDS: Venlafaxine XR 150 MG Capsule PO (09:31)
[2021-07-04] MEDS: Pantoprazole Sodium 40 MG Tablet PO (09:31)
[2021-07-04] MEDS: Enoxaparin 40 MG/0.4 ML Syringe SC (09:31)
--- NOTE | 2021-07-04 10:02 | CASEMGMT ---
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 SW reviewed chart, documents are not on file. RN CM informed pt that documents are not on file and pt may bring in documents. Anna Schneider TECHNICAL ASSISTANCE CONSULTANT, WORKFORCE ADVISOR
--- NOTE | 2021-07-04 18:01 | PCM.PN.HOSP ---
Subjective Subjective Patient was seen and examined today, he voices no complaints of shortness of breath or chest discomfort. Patient denies any fever or chills. Objective Data Objective Data Vital Signs: Vital Signs Temp Pulse Resp BP Pulse Ox 97.8 F 57 L 20 H 124/58 H 97 07/04/21 15:30 07/04/21 17:41 07/04/21 15:30 07/04/21 15:30 07/04/21 15:30 Oxygen Flow Rate (L/min) 3 Oxygen Delivery Method Nasal Cannula Weight: 62.6 kg Body Mass Index (BMI) 18.7 Intake & Output: Intake and Output for Last 24 Hours 07/02/21 07/03/21 07/04/21 23:59 23:59 23:59 Intake Total 3504 / 3604 2573.33 / 2573.33 1250 / 1250 Output Total 626 / 926 1150 / 1150 675 / 675 Balance 2878 / 2678 1423.33 / 1423.33 575 / 575 Lab / Micro Data Result Diagrams: 07/02/21 05:27 07/02/21 05:27 Micro: Microbiology 07/01/21 14:25 Blood Culture (Wb) - Anticubital Right Blood Culture - Preliminary No growth in 48 hours. 07/01/21 14:20 Blood Culture (Wb) - Left Forearm Blood Culture - Preliminary No growth in 48 hours. 07/01/21 14:30 Nasal Secretion SARS-CoV-2 Antigen (Rapid) - Final SARS-CoV-2 (COVID 19) Physical Exam Const alert, oriented x3, no apparent distress and healthy appearing General Appearance: cooperative, well kempt and well developed Orientation / Consciousness: awake, oriented to person, oriented to place and oriented to time Nutritional Appearance: cachectic HEENT normocephalic, head/scalp atraumatic and moist oral mucous membranes Head and Scalp: normocephalic Eyes PERRL, EOMs intact bilaterally and conjunctivae normal Neck nuchal rigidity, supple, no JVD and thyroid normal General: trachea midline Resp normal respiratory effort and clear to auscultation bilaterally Auscultation: Negative for rales, rhonchi or wheezes Cardio regular rate, regular rhythm, no murmurs, no rub and no gallops GI normal to inspection, nondistended, normoactive bowel sounds, soft to palpation, non-tender and non-distended Extremity no clubbing, cyanosis or edema Skin no rashes or lesions noted General Skin Exam: no breakdown Neuro oriented x3, CN's II-XII intact bilaterally, no focal motor deficits and no sensory deficits noted Sensorium / Orientation: awake and alert Speech: speech normal Psych thought process normal and affect normal Assessment & Plan Assessment/Plan (1) COVID-19: PLAN: 1. COVID-19 pneumonia-patient is on day 3 of remdesivir and day 4 of dexamethasone #2 acute hypoxic respiratory failure-patient is currently on 3 L via nasal cannula, his O2 sat will be monitored #3 generalized debility-patient will continue to be seen by PT and OT #4 chronic obstructive pulmonary disease Charges/Coding Visit Charges Inpatient E&M: 40734 Subs Hosp L2
[2021-07-04] MEDS: 0.9% Saline Lock 10 ML Syringe IV (22:07)
[2021-07-04] MEDS: Pravastatin 40 MG Tablet PO (22:10)
[2021-07-04] MEDS: traZODone 100 MG Tablet PO (22:10)
[2021-07-05] VITALS (17 sets, daily range): BP systolic 116–130; BP diastolic 64–74; PULSE 51–80; RESP 14–22; TEMP 36.7–37.2; O2SAT 90–96
[2021-07-05] MEDS: cycloBENZAPRine HCl 5 MG TABLET PO ×3 (06:19→22:53)
[2021-07-05] MEDS: Enoxaparin 40 MG/0.4 ML Syringe SC (09:59)
[2021-07-05] MEDS: dexAMETHasone 4 MG Tablet 6 MG PO (09:59)
[2021-07-05] MEDS: Multivitamins,Therapeutic Tablet 1 TABLET PO (10:00)
[2021-07-05] MEDS: Venlafaxine XR 150 MG Capsule PO (10:00)
[2021-07-05] MEDS: Pantoprazole Sodium 40 MG Tablet PO (10:00)
[2021-07-05] MEDS: Gabapentin 400 MG Capsule PO ×3 (10:00→17:25)
[2021-07-05] MEDS: Atenolol 50 MG Tablet PO (10:00)
[2021-07-05] MEDS: HYDROcodone Bitartrate/Apap 5/325 Tablet PO ×2 (10:01→17:25)
[2021-07-05] MEDS: 0.9% Saline Lock 10 ML Syringe IV ×2 (10:10→22:53)
--- NOTE | 2021-07-05 18:55 | PCM.PN.HOSP ---
Subjective Subjective Patient was seen and examined today, he voices no complaints of any shortness of breath, he denies chills or fever. Objective Data Objective Data Vital Signs: Vital Signs Temp Pulse Resp BP Pulse Ox 98.0 F 80 20 H 116/71 96 07/05/21 16:00 07/05/21 16:00 07/05/21 16:00 07/05/21 16:00 07/05/21 17:41 Oxygen Flow Rate (L/min) 2 Oxygen Delivery Method Nasal Cannula Weight: 62.6 kg Body Mass Index (BMI) 18.7 Intake & Output: Intake and Output for Last 24 Hours 07/03/21 07/04/21 07/05/21 23:59 23:59 23:59 Intake Total 2573.33 / 2573.33 2585 / 2585 750 / 750 Output Total 1150 / 1150 1650 / 1650 1700 / 1700 Balance 1423.33 / 1423.33 935 / 935 -950 / -950 Lab / Micro Data Result Diagrams: 07/02/21 05:27 07/02/21 05:27 Micro: Microbiology 07/01/21 14:25 Blood Culture (Wb) - Anticubital Right Blood Culture - Preliminary No growth in 48 hours. 07/01/21 14:20 Blood Culture (Wb) - Left Forearm Blood Culture - Preliminary No growth in 48 hours. 07/01/21 14:30 Nasal Secretion SARS-CoV-2 Antigen (Rapid) - Final SARS-CoV-2 (COVID 19) Physical Exam Narrative alert, oriented x3, no apparent distress and healthy appearing General Appearance: cooperative, well kempt and well developed Orientation / Consciousness: awake, oriented to person, oriented to place and oriented to time Nutritional Appearance: cachectic HEENT normocephalic, head/scalp atraumatic and moist oral mucous membranes Head and Scalp: normocephalic Eyes PERRL, EOMs intact bilaterally and conjunctivae normal Neck nuchal rigidity, supple, no JVD and thyroid normal General: trachea midline Resp normal respiratory effort and clear to auscultation bilaterally Auscultation: Negative for rales, rhonchi or wheezes Cardio regular rate, regular rhythm, no murmurs, no rub and no gallops GI normal to inspection, nondistended, normoactive bowel sounds, soft to palpation, non-tender and non-distended Extremity no clubbing, cyanosis or edema Skin no rashes or lesions noted General Skin Exam: no breakdown Neuro oriented x3, CN's II-XII intact bilaterally, no focal motor deficits and no sensory deficits noted Sensorium / Orientation: awake and alert Speech: speech normal Psych thought process normal and affect normal Assessment & Plan Assessment/Plan (1) COVID-19: PLAN: 1. COVID-19 pneumonia-patient is on day 4 of remdesivir and day 5 of dexamethasone #2 acute hypoxic respiratory failure-patient is currently on 2 L via nasal cannula, his O2 sat will be monitored #3 generalized debility-patient will continue to be seen by PT and OT #4 chronic obstructive pulmonary disease Charges/Coding Visit Charges Inpatient E&M: 95172 Subs Hosp L2
[2021-07-05] MEDS: traZODone 100 MG Tablet PO (22:53)
[2021-07-05] MEDS: Pravastatin 40 MG Tablet PO (22:53)
[2021-07-06] VITALS (8 sets, daily range): BP systolic 115–129; BP diastolic 64–69; PULSE 59–65; RESP 18–20; TEMP 36.4–36.6; O2SAT 81–96
[2021-07-06] MEDS: HYDROcodone Bitartrate/Apap 5/325 Tablet PO ×3 (00:13→14:52)
[2021-07-06] MEDS: cycloBENZAPRine HCl 5 MG TABLET PO ×2 (06:40→12:08)
[2021-07-06] MEDS: Atenolol 50 MG Tablet PO (08:36)
[2021-07-06] MEDS: dexAMETHasone 4 MG Tablet 6 MG PO (08:36)
[2021-07-06] MEDS: Venlafaxine XR 150 MG Capsule PO (08:36)
[2021-07-06] MEDS: Gabapentin 400 MG Capsule PO ×3 (08:36→17:14)
[2021-07-06] MEDS: Pantoprazole Sodium 40 MG Tablet PO (08:36)
[2021-07-06] MEDS: Multivitamins,Therapeutic Tablet 1 TABLET PO (08:36)
[2021-07-06] MEDS: Enoxaparin 40 MG/0.4 ML Syringe SC (08:37)
[2021-07-06] MEDS: 0.9% Saline Lock 10 ML Syringe IV ×2 (10:18→17:14)
--- NOTE | 2021-07-06 16:58 | PCM.DC ---
Discharge Instructions Diet Discharge Diet: No restrictions Activity Discharge Activity: Return to Normal Activity Weight Bearing Status: Full weight bearing Follow Up Care Test Results: Test results from this visit will be discussed in further detail at your follow-up appointment, if applicable. Discharge Plan Admission Admit Date/Time: 07/01/21 16:46 Primary Reason for Your Visit: COVID-19 pneumonia Attending Provider: Brody Sandoval Primary Care Provider: Miguel Stewart Instructions Additional Instructions / Restrictions: Quarantine until 07/21/2021 Use oxygen at 3 L/min while walking/ambulating, use 2 L/min while at rest Discharge Orders/Prescriptions Prescriptions: New dexamethasone 4 mg Tablet 6 mg PO DAILY Qty: 6 RF: 0 Continued pravastatin 40 mg tablet 40 mg PO QHS Qty: 90 RF: 1 docusate sodium [Colace] 100 mg capsule 100 mg PO TID PRN (Reason: Constipation) RF: 0 polyethylene glycol 3350 [Miralax] 17 gram/dose powder 17 g PO DAILY RF: 0 atenolol 50 mg tablet 50 mg PO DAILY RF: 0 venlafaxine 150 mg Capsule,Extended Release 24hr 150 mg PO DAILY RF: 0 trazodone 100 mg Tablet 100 mg PO QHS RF: 0 cyclobenzaprine 5 mg Tablet 5 mg PO TID RF: 0 multivitamin Tablet 1 tab PO DAILY RF: 0 vitamin B complex Tablet 1 tab PO DAILY RF: 0 pantoprazole 40 mg tablet,delayed release (DR/EC) 40 mg PO QAM Qty: 90 RF: 1 gabapentin 600 mg tablet 600 mg PO TID Qty: 90 RF: 1 fluticasone propionate 50 mcg/actuation spray,suspension 2 spray intranasal DAILY Qty: 16 RF: 3 hydrocodone-acetaminophen 10-325 mg tablet 1 tab PO .qid PRN (Reason: pain) 30 Days Qty: 120 RF: 0 Ventolin HFA 90 mcg/actuation HFA aerosol inhaler 2 puff INHALATION Q6H Qty: 8.5 RF: 2 Referrals / Follow Up: Miguel Stewart DO [Primary Care Provider] - See Referral Note (In 3 weeks) Disposition Disposition (needs filled in before D/C Order can be placed): Home, Self Care
--- NOTE | 2021-07-06 17:40 | NURSING ---
[facility] [place] [facility] [place] setup. Face sheet, O2 order, and discharge summary faxed to [facility] [place].
--- NOTE | 2021-07-06 19:39 | DS.PCM_ITS ---
Providers Date of Admission: 07/01/21 Date of Discharge: 07/06/21 Primary Care Physician: Dr. Miguel Stewart DO Reason For Visit: COVID 19 INFECTION Diagnosis Discharge Diagnosis (1) COVID-19: Status: Acute Code(s): U07.1 - COVID-19 Plan: 1. COVID-19 pneumonia #2 acute hypoxic respiratory failure #3 generalized debility #4 chronic obstructive pulmonary disease Medications at Discharge Home Medications pravastatin 40 mg tablet 40 mg PO QHS #90 tab 03/07/21 pantoprazole 40 mg tablet,delayed release 40 mg PO QAM #90 tab 04/26/21 atenolol 50 mg PO DAILY 05/05/21 gabapentin 600 mg tablet 600 mg PO TID #90 tab 05/18/21 docusate sodium 100 mg capsule 100 mg PO TID PRN cap 06/01/21 polyethylene glycol 3350 17 gram/dose oral powder 17 g PO DAILY 06/01/21 fluticasone propionate 50 mcg/actuation nasal spray,suspension 2 spray INTRANASAL DAILY #16 g 06/08/21 hydrocodone 10 mg-acetaminophen 325 mg tablet 1 tab PO .qid PRN 30 Days #120 tab 06/23/21 albuterol sulfate 90 mcg/actuation aerosol inhaler 2 puff INHALATION Q6H #8.5 g 06/27/21 cyclobenzaprine 5 mg PO TID 07/01/21 multivitamin 1 tab PO DAILY 07/01/21 trazodone 100 mg PO QHS 07/01/21 venlafaxine 150 mg PO DAILY 07/01/21 vitamin B complex 1 tab PO DAILY 07/01/21 dexamethasone 6 mg PO DAILY #6 tab 07/06/21 Hospital Course Operations None Procedures None Summary of Care Provided Minutes Spent on Discharge: 32 Hospital Course: The patient is a 71-year-old white male who was seen in the emergency room at [facility] with chief complaint of shortness of breath and generalized weakness. Patient has been in the hospital approximately a month before for pneumonia and empyema. Patient not been on oxygen at home. Patient stated he had been vaccinated against COVID-19. Work- up in the emergency room included labs which indicated the patient was positive COVID-19, chest x-ray showed a slowly improved left lower lung infiltrate. Patient required supplemental oxygen at 4 L/min via nasal cannula. Patient was admitted to [place] [address] for COVID-19 pneumonia, he received IV remdesivir and oral dexamethasone, over the next several days he was seen by PT and OT and his oxygen was weaned. On 07/06/2021, patient was seen and examined: On examination he appeared older than his stated age. Vital signs as documented. Skin warm and dry and without overt rashes. Neck without JVD, neck was supple, trachea midline, thyroid was normal. Lungs clear bilaterally, normal air movement was noted. Heart exam notable for regular rhythm, normal sounds and absence of murmurs, rubs or gallops. Abdomen unremarkable and without evidence of organomegaly, masses, or abdominal aortic enlargement. Bowel sounds are present, abdomen is not distended. Extremities nonedematous, no cyanosis was noted, no clubbing was noted. Neuro: Cranial nerves II through XII are grossly intact, no focal motor deficits were noted, sensation to light touch and pinprick intact, motor exam 5/5 throughout. Psych: Patient is alert and oriented x3, he does not appear anxious or depressed, he does not appear agitated. Patient was felt stable for discharge on 07/06/2021 to home, he required oxygen at 3 L/min via nasal cannula while ambulating, 2 L via nasal cannula while at rest. He was expected to use the oxygen in his home and during activities outside his home and while ambulating. Weight / BMI Weight Weight: 62.6 kg Body Mass Index (BMI) 18.7 ABG / Lab / Microbiology Data Result Diagrams: 07/02/21 05:27 07/02/21 05:27 Microbiology: Microbiology 07/01/21 14:25 Blood Culture (Wb) - Anticubital Right Blood Culture - Final No growth in 5 days. 07/01/21 14:20 Blood Culture (Wb) - Left Forearm Blood Culture - Final No growth in 5 days. 07/01/21 14:30 Nasal Secretion SARS-CoV-2 Antigen (Rapid) - Final SARS-CoV-2 (COVID 19) D/C Instructions Discharge Diet: No restrictions Weight Bearing Status: Full weight bearing Meaningful Use Info Meaningful Use Diagnoses (Choose all that apply): None applicable Discharge Plan Admission Admit Date/Time: 07/01/21 16:46 Primary Reason for Your Visit: COVID-19 pneumonia Attending Provider: Brody Sandoval Primary Care Provider: Miguel Stewart Instructions Additional Instructions / Restrictions: Quarantine until 07/21/2021 Use oxygen at 3 L/min while walking/ambulating, use 2 L/min while at rest Discharge Orders/Prescriptions Prescriptions: New dexamethasone 4 mg Tablet 6 mg PO DAILY Qty: 6 RF: 0 Continued pravastatin 40 mg tablet 40 mg PO QHS Qty: 90 RF: 1 docusate sodium [Colace] 100 mg capsule 100 mg PO TID PRN (Reason: Constipation) RF: 0 polyethylene glycol 3350 [Miralax] 17 gram/dose powder 17 g PO DAILY RF: 0 atenolol 50 mg tablet 50 mg PO DAILY RF: 0 venlafaxine 150 mg Capsule,Extended Release 24hr 150 mg PO DAILY RF: 0 trazodone 100 mg Tablet 100 mg PO QHS RF: 0 cyclobenzaprine 5 mg Tablet 5 mg PO TID RF: 0 multivitamin Tablet 1 tab PO DAILY RF: 0 vitamin B complex Tablet 1 tab PO DAILY RF: 0 pantoprazole 40 mg tablet,delayed release (DR/EC) 40 mg PO QAM Qty: 90 RF: 1 gabapentin 600 mg tablet 600 mg PO TID Qty: 90 RF: 1 fluticasone propionate 50 mcg/actuation spray,suspension 2 spray intranasal DAILY Qty: 16 RF: 3 hydrocodone-acetaminophen 10-325 mg tablet 1 tab PO .qid PRN (Reason: pain) 30 Days Qty: 120 RF: 0 Ventolin HFA 90 mcg/actuation HFA aerosol inhaler 2 puff INHALATION Q6H Qty: 8.5 RF: 2 Referrals / Follow Up: Miguel Stewart DO [Primary Care Provider] - See Referral Note (In 3 weeks) Disposition Disposition (needs filled in before D/C Order can be placed): Home, Self Care Charges/Coding Visit Charges Inpatient E&M: 95128 Disch Hosp
--- NOTE | 2021-07-07 15:31 | CASEMGMT ---
DEZ LOVE Discharge Follow Up Phone Call: AUDRAAnnika:16 Strata:4 Call Date: 07/07/21 Discharge Date: 07/06/21 Time of Call:1530 Duratioion:2 min Admitting Dx:COVID 19 DEZ LOVE completed follow up phone call after recent hospitalization. Pt states he is doing good at home. States his concentrator for O2 was delivered. Pt is quarantining at home until 07/21/21. Pt was able to last picker his rx. Pt denies further questions or concerns regarding dc instructions or medications.
== END 2021-07-06 18:37 | disposition home or self-care (01) | DRG 177 ==
LOC: ED 15:28 → MS3 17:04
PROVIDERS: Admitting Provider Internal Medicine; Emergency Provider Emergency Medicine; PCP Family Medicine; Visit Provider Internal Medicine
DX: U07.1 COVID-19 (principal); J12.82 Pneumonia due to coronavirus disease 2019; J96.01 Acute respiratory failure with hypoxia; J43.9 Emphysema, unspecified; I10 Essential (primary) hypertension; I49.3 Ventricular premature depolarization; F17.290 Nicotine dependence, other tobacco product, uncomplicated; Z99.81 Dependence on supplemental oxygen; Z79.899 Other long term (current) drug therapy
CPT/HCPCS: 36415; 70450; 71045; 80048; 80053; 81001; 82607; 83605; 83735; 84443; 84484; 85025; 87040; 87426; 93005; 94762; 97110; 97162; 97165; 97530; 97803; 99285; 99406; J7030; J7050; A4216

== ENCOUNTER → 2021-07-24 13:44 | Outpatient (CLI) | payer MEDICARE, MEDICAID, SELFPAY ==
--- NOTE | 2021-07-24 13:46 | CT_ITS ---
STUDY: CT CHEST WITHOUT CONTRAST REASON FOR EXAM: Male, 71 years old. Follow-up nodules versus pneumonia RADIATION DOSAGE (If Supplied By Facility): CTDIvol = ( 6.38 ) mGy, DLP = ( 255.05 ) mGycm TECHNIQUE: Transaxial imaging was performed without the administration of intravenous contrast material. Individualized dose optimization techniques were used for this CT. COMPARISON: 18 May 2021, 08 May 2021 FINDINGS: Lungs are severely emphysematous. There is chronic left lower lobe pneumonia with resolution of left pleural effusion. There is volume loss in the left lower lobe due to chronicity of disease and superimposed scarring. There is upward retraction of the left hemidiaphragm. There are scattered predominately peripheral and basal scars and atelectasis. There are minimal scattered centrilobular small, less than 5 mm nodules related to low-grade infection of bronchiolitis. This is related to both presence of pneumonia and patient''s severe emphysema and not a separate entity. These nodules do not require individual follow-up. Large central airways are patent. Left lower lobe airways are partially filled with mucus. Coronary arteries are severely diseased. There is mild pulmonary arterial hypertension. Aorta is normal in caliber. Mediastinal contents are suboptimally evaluated without contrast. There are expected mediastinal lymph nodes which are increased in number and are reactive due to presence of infection. Osseous structures are intact with scattered minimal sclerotic fossa, most probably bone islands. CT/Chest without Contrast IMPRESSION: 1. Resolution/disappearance of left pleural effusion. 2. Chronic persistent left lower lobe pneumonia, present since 3 months ago. Pulmonary referral advised. 3. Severe emphysema. 4. Severe coronary artery disease. Electronically Signed: Ulysses Avery MD at 17:07 EDT Tel , Service support ,
== END ==
PROVIDERS: PCP Family Medicine; Referring Provider Nurse Practitioner Acute Care; Visit Provider Nurse Practitioner Acute Care
DX: J18.9 Pneumonia, unspecified organism (principal); J43.9 Emphysema, unspecified; I25.10 Atherosclerotic heart disease of native coronary artery without angina pectoris; R91.8 Other nonspecific abnormal finding of lung field; R93.89 Abnormal findings on diagnostic imaging of other specified body structures
CPT/HCPCS: 71250

== ENCOUNTER → 2021-08-16 12:23 | Outpatient (CLI) | payer MEDICARE, MEDICAID, SELFPAY ==
[2021-08-16 12:30] VITALS: PULSE 62; PULSE 69; PULSE 71; PULSE 72; PULSE 77; O2SAT 91; O2SAT 92; O2SAT 94
--- NOTE | 2021-08-17 07:14 | PCM.PSN.6M ---
PSN 6 Minute Walk Test 6 Minute Walk Test 6 Minute Walk Test: 6 Minute Walk Test PSN:6-Minute Walk Test Start: 08/16/21 12:56 Freq: Status: Active Protocol: [id number].6MINW Document 08/16/21 12:30 EW (Rec: 08/16/21 13:01 EW [id number]) 6 Minute Walk Test Date Performed 08/16/21 Time Performed 12:30 Height 6 ft Weight: 63.503 kg Weight in Pounds 140.[address]: Sammy Stewart Assistive device used: None Pre-test Oxygen Delivery Method Room Air Pulse Ox (%) 92 Pulse Rate (60-100 beats/min) 62 Dyspnea Nasir Scale (0-10) 0.5 Exertion Nasir Scale (6-20) 6 1st minute Oxygen Delivery Method Room Air Pulse Ox (%) 94 Pulse Rate (60-100 beats/min) 69 2nd minute Oxygen Delivery Method Room Air Pulse Ox (%) 91 Pulse Rate (60-100 beats/min) 71 3rd minute Oxygen Delivery Method Room Air Pulse Ox (%) 92 Pulse Rate (60-100 beats/min) 72 4th minute Oxygen Delivery Method Room Air Pulse Ox (%) 91 Pulse Rate (60-100 beats/min) 77 5th minute Oxygen Delivery Method Room Air Pulse Ox (%) 91 Pulse Rate (60-100 beats/min) 69 6th minute Oxygen Delivery Method Room Air Pulse Ox (%) 91 Pulse Rate (60-100 beats/min) 71 Post-test Oxygen Delivery Method Room Air Pulse Ox (%) 91 Pulse Rate (60-100 beats/min) 62 Dyspnea Nasir Scale (0-10) 7 Exertion Nasir Scale (6-20) 11 Full Laps Walked 13 Partial Lap, Number of Tiles Walked 0 Total Distance Walked (ft) 767 Interpretation Interpretation: The patient ambulated 767 feet over the course of 6 minutes beginning on room air without assistive devices. Pretesting oxygen saturation was noted to be 92% on room air. With ambulation, the frida oxygen saturation was 91%. There was no significant exertional oxygen desaturation. Recommendations Recommendations: There is no indication for the use of supplemental oxygen at this time.
== END ==
PROVIDERS: PCP Family Medicine; Referring Provider Internal Medicine Critical Care Medicine; Visit Provider Internal Medicine Critical Care Medicine
DX: J44.9 Chronic obstructive pulmonary disease, unspecified (principal)
CPT/HCPCS: 94618

== ENCOUNTER → 2022-07-05 | Outpatient (CLI) | payer MEDICARE, MEDICAID, SELFPAY ==
--- NOTE | 2022-07-05 14:06 | CT_ITS ---
STUDY: LOW DOSE CT LUNG CANCER SCREENING REASON FOR EXAM: Male, 72 years old. 1 pack per day smoker x40 years, quit 1 year ago RADIATION DOSAGE (If Supplied By Facility): CTDIvol = ( 3.02 ) mGy, DLP = ( 117.77 ) mGycm TECHNIQUE: No contrast was administered. Low dose technique was utilized (average mAS-38 and kVp 120). 1.25 mm axial source images with a slice interval of 1.25-mm were reconstructed in lung windows. 2.5 mm axial source images with a slice interval of 2.5-mm were reconstructed in lung windows. 5.0 mm axial source images with a slice interval of 5.0-mm were reconstructed in soft tissue windows. COMPARISON: 07/24/2021 FINDINGS: Lung windows show underlying emphysema with chronic bronchitis. No organized infiltrate. Previously noted left lower lobe pneumonia has resolved, there is a soft tissue density in the left lung base on axial image 165 measuring 1.37 cm which I suspect is postinflammatory, but a 6 month follow-up is recommended to assess stability. There are postinflammatory bronchiectatic changes also noted in the medial left lower lobe. The soft tissue windows show a normal-appearing thyroid gland. Scattered subcentimeter axillary mediastinal lymph nodes. There is aneurysmal dilatation of the ascending thoracic aorta 4.22 cm. No suspicious periaortic fluid. Dense coronary artery calcifications are noted with a thin pericardial effusion measuring 3 mm. Bony structures show degenerative change. Limited cuts through the upper abdomen do not show suspicious abnormality CT/Low Dose CT Lung Screening IMPRESSION: Lung-RADS category 3 - Continue screening with LDCT in 6 months. IMPORTANT NOTES FOR USE: ACR Lung-RADS Version 1.1 Assessment Categories Release Date: 2018 Category: Coded 0-4 bases on nodule(s) with highest degree of suspicion. Negative screen is defined as categories 1 and 2; a positive screen is defined as categories 3 and 4. Category 3 and 4A nodules that are unchanged on interval CT should be coded as category 2, and individuals returned to screening in 12 months. Category 4X: Category 3 or 4 nodules with additional imaging findings that increase the suspicion of lung cancer, such as spiculation, GGN that doubles in size in 1 year, enlarged lymph notes, etc. Category Modifiers: S (significant finding unrelated to lung cancer) Electronically Signed: Rick Gilliam MD at 15:18 EDT ,
== END | disposition home or self-care (01) ==
LOC: CT 13:57
PROVIDERS: PCP Family Medicine; Visit Provider Nurse Practitioner Acute Care
DX: Z12.2 Encounter for screening for malignant neoplasm of respiratory organs (principal); F17.210 Nicotine dependence, cigarettes, uncomplicated
CPT/HCPCS: 71271

== ENCOUNTER → 2022-07-17 | Outpatient (CLI) | payer MEDICARE, MEDICAID, SELFPAY ==
[2022-07-17 15:15] LABS: Absolute Lymphocyte Count 1.28 X10^3/uL (0.83-4.51); Absolute Neutrophil Count 4.4 X10^3/uL (2.0-7.7); Basophil# 0.08 X10^3/uL; Basophil% 1.1 % (0-1); Eosinophil# 0.67 X10^3/uL; Eosinophils% 9.5 % (0-5); Hematocrit 38.1 % (40-54); Hemoglobin 12.4 g/dL (13.0-16.5); Lymphocyte # 1.28 X10^3/ul (0.83-4.51); Lymphocyte % 18.1 % (19-41); Mean Corp Hgb Conc 32.5 g/dL (32-36); Mean Corpuscular Hgb 34.5 pg (27.0-32.0); Mean Corpuscular Volume 106.1 fL (80-94); Mean Platelet Vol. 9.7 fl (6.2-12.0); Monocyte% 8.5 % (0-10); NRBC Flagged by Analyzer 0 % (0-5); Neutrophil # 4.43 X10^3/uL (2.7-7.7); Neutrophil % 62.5 % (47-70); Platelet Count 216 K/mm3 (150-450); RBC Distribution Width CV 12.9 % (11.6-14.6); RBC Distribution Width SD 51.2 fl (35.1-43.9); Red Blood Count 3.59 M/mm3 (4.6-6.2); White Blood Count 7.1 K/mm3 (4.4-11.0)
[2022-07-17 17:21] LABS: AST(SGOT) 23 U/L (15-37); Alanine Aminotransfer ALT/SGPT 26 U/L (16-61); Albumin, Serum 3.7 g/dL (3.2-5.0); Alkaline Phosphatase 72 U/L (45-117); Anion Gap 5 (5-15); BUN 17 mg/dL (7-18); Calcium,Total 9.4 mg/dL (8.5-10.1); Chloride 106 mmol/L (98-107); Creatinine, Serum 1.13 mg/dL (0.70-1.30); EST Glomerular Filtration Rate 68 mL/min (>60); Est Glom Filt Rate - Afr Amer 82 mL/min (>60); Globulin 3.7 g/dL (2.2-4.2); Glucose 77 mg/dL (74-106); PSA,Total- Diagnostic 1.49 ng/mL (0.0-4.0); Protein, Total 7.4 g/dL (6.4-8.2); Sodium Level 139 mmol/L (136-145)
== END | disposition home or self-care (01) ==
LOC: BIMLAB 14:01
PROVIDERS: PCP Family Medicine; Referring Provider Family Medicine; Visit Provider Family Medicine
DX: I10 Essential (primary) hypertension (principal); R63.4 Abnormal weight loss; R35.0 Frequency of micturition
CPT/HCPCS: 36415; 80053; 84153; 85025

== ENCOUNTER 2023-01-12 14:14 | Emergency (ER) | payer MEDICARE, MEDICAID, SELFPAY ==
[2023-01-12 14:15] VITALS: BP 134/80; PULSE 66; RESP 18; TEMP 36.1; O2SAT 100; BMI 22.3
--- NOTE | 2023-01-12 15:18 | EDS_ITS ---
HPI HPI - GI History of Present Illness Chief Complaint: Nausea/Vomiting/Diarrhea Informant: patient and family Abdominal Pain/Flank Pain Worsened by: Nothing Relieved by: Nothing Nausea/Vomiting/Emesis GI Symptom: Positive for Nausea and Vomiting Onset: Days Quality: Positive for Nonbilious; Negative for Blood streaks, Coffee ground or Hematemesis Diarrhea/Melena/Hematochezia GI Symptom: Positive for Diarrhea; Negative for Melena or Hematochezia Onset: Days Stool Quality: Positive for Watery Associated Symptoms Associated Symptoms: Negative for Dysuria, Frequency or Hematuria Narrative Narrative: Patient presents with nausea, vomiting, and diarrhea that has been constant for the past couple days. Patient states his diarrhea is watery. Patient took a whole bottle of Imodium since yesterday which has not helped. Family states patient is more confused today. Family is concerned over possible dehydration. Patient states he is unable to keep anything down. Patient states that today he only has dry heaves but yesterday was having some nausea and vomiting. Patient denies any hematemesis or coffee-ground emesis. Patient denies any melena or hematochezia. Patient denies any urinary complaints. [facility] Medical History Arthritis Chronic pain Depression GERD (gastroesophageal reflux disease) History of pneumonia History of stomach ulcers Hyperlipidemia Hypertension IBS (irritable bowel syndrome) Kidney stones Neuropathy Severe protein-calorie malnutrition Smoker Syncope Home Medications docusate sodium 100 mg capsule (Colace) 100 mg PO TID PRN Constipation 06/01/21 [History Last Taken Unknown] multivitamin 1 tab PO DAILY supplement 07/01/21 [History Last Taken Unknown] vitamin B complex 1 tab PO DAILY supplement 07/01/21 [History Last Taken Unknown] fluticasone propionate 50 mcg/actuation nasal spray,suspension 2 spray intranasal DAILY #16 grams 10/25/21 [Rx Last Taken Unknown] albuterol sulfate 90 mcg/actuation aerosol inhaler (Ventolin HFA) 2 puff inhalation Q6H #8.5 grams 11/26/21 [Rx Last Taken Unknown] atenolol 50 mg tablet 50 mg PO DAILY #90 tabs 10/29/22 [Rx Last Taken Unknown] cyclobenzaprine 5 mg tablet 5 mg PO TID pain #90 tabs 10/29/22 [Rx Last Taken Unknown] pantoprazole 40 mg tablet,delayed release 40 mg PO QAM #90 tabs 10/29/22 [Rx Last Taken Unknown] trazodone 100 mg tablet 100 mg PO QHS #90 tabs 10/29/22 [Rx Last Taken Unknown] pravastatin 40 mg tablet 40 mg PO QHS #90 tabs 11/15/22 [Rx Last Taken Unknown] gabapentin 600 mg tablet 600 mg PO TID #90 tabs 12/13/22 [Rx Last Taken Unknown] venlafaxine 150 mg capsule,extended release 24 hr 150 mg PO DAILY #90 caps 12/13/22 [Rx Last Taken Unknown] hydrocodone 10 mg-acetaminophen 325 mg tablet 1 tab PO 4X/DAY 1 month #120 tabs 01/10/23 [Rx Last Taken Unknown] glucosamine-chondroitin 250 mg-200 mg tablet (Osteo Bi-Flex) See Rx Instructions PO .COMPLEX 01/12/23 [History Last Taken Unknown] ondansetron 4 mg disintegrating tablet 4 mg PO Q8H PRN PRN Nausea #10 tabs 01/12/23 [Rx Last Taken Unknown] Allergy/AdvReac Type Severity Reaction Status Date / Time aspirin Allergy Severe bleeding Verified 01/12/23 14:17 Family History Mother Myocardial infarction, Onset Age: 49 Depression Father Hypertension CVA (cerebral vascular accident), Onset Age: 49 Sister Thyroid disorder Uncle ulcers Surgical History History of endoscopy Social History Smoking Status: Former smoker quit date: 07/14/21 alcohol intake: never substance use type: does not use what type of physical activity do you participate in: other details: yard work, house work ROS ROS ED Constitutional Constitutional ED: Reports chills, fever(s) and subjective Eyes Eyes: Denies blurry vision or change in vision ENT ENT ED: Reports sore throat; Denies rhinorrhea Cardiovascular Cardiovascular: Denies chest pain or palpitations Respiratory/Chest Respiratory/Chest: Denies cough or dyspnea Gastrointestinal Gastrointestinal: Reports diarrhea, nausea and vomiting; Denies abdominal pain or melena Genitourinary Genitourinary ED: Denies dysuria or hematuria Musculoskeletal Musculoskeletal: Reports neck pain; Denies back pain Integumentary Denies abscess or rash Neurologic Neurologic: Denies headache(s) or weakness Allergic/Immunologic Allergic/Immunologic ED: Denies mouth swelling or urticaria EXAM Physical Exam Const Vital Signs: 01/12/23 14:15 01/12/23 17:01 Temperature 96.9 F L Temperature Source Temporal Pulse Rate 66 81 Respiratory Rate 18 19 H Blood Pressure 134/80 H 154/77 H Blood Pressure Mean 98 102 Pulse Ox 100 97 Oxygen Delivery Method Room Air Room Air Positive well nourished and well developed General Appearance ED: well developed and NAD HEENT Reports moist mucous membranes Neck supple and no JVD Resp normal respiratory effort and clear to auscultation bilaterally Cardio regular rate and regular rhythm GI normal to inspection, nondistended, normoactive bowel sounds Palpation: soft and tender epigastric, LLQ, RLQ, LUQ, RUQ, periumbilical and suprapubic; Negative for guarding or rebound tenderness present Extremity normal to inspection General Extremety ED: Negative for edema or tenderness General Extremity: Negative for edema Neuro CN's II-XII intact bilaterally, moves all extremities and no sensory deficits noted Sensorium / Orientation: alert Motor Exam: strength 5/5 throughout Psych mental status grossly normal Skin no rashes or lesions noted MDM MDM MDM Narrative Medical decision making narrative: Differential diagnosis includes viral gastroenteritis, dehydration, electrolyte abnormality, pancreatitis, urinary tract infection, pyelonephritis, bowel obstruction, and perforation. CBC will be obtained to assess for leukocytosis and anemia. Comprehensive metabolic profile will be obtained to assess for electrolyte abnormality, renal function, and hepatic function. Lipase will be obtained to assess for pancreatitis. Urinalysis will be obtained to assess for urinary tract infection and pyelonephritis. CT scan of the abdomen pelvis will be obtained to assess for bowel obstruction and perforation. Lab Data Attestation: I reviewed the patient's lab results. Lab results narrative: CBC was reviewed. There is a slight anemia with a hemoglobin of 12.7 and hematocrit 37.6. Comprehensive metabolic profile was reviewed and was within normal limits. Lipase was reviewed and was normal. Urinalysis was reviewed. There is no evidence of urinary tract infection or hematuria. Labs: Laboratory Results - last 24 hr 01/12/23 01/12/23 01/12/23 15:24 15:24 18:30 WBC 7.3 RBC 3.79 L Hgb 12.7 L Hct 37.6 L MCV 99.2 H MCH 33.5 H MCHC 33.8 RDW Std Deviation 45.1 H RDW Coeff of Issa 12.3 Plt Count 224 MPV 9.5 Immature Gran % (Auto) 0.300 Neut % (Auto) 77.5 H Lymph % (Auto) 12.[address] [facility] % (Auto) 7.7 Eos % (Auto) 1.4 Baso % (Auto) 0.4 Absolute Neuts (auto) 5.7 Absolute Lymphs (auto) 0.93 Nucleated RBC % 0 Sodium 136 Potassium 4.4 Chloride 105 Carbon Dioxide 26.0 Anion Gap 5 BUN 16 Creatinine 1.05 Estim Creat Clear Calc 67.16 Est GFR (MDRD) Af Amer 89 Est GFR (MDRD) Non-Af 74 BUN/Creatinine Ratio 15.2 Glucose 110 H Calcium 11.6 H Magnesium 1.3 L Total Bilirubin 0.40 AST 51 H ALT 26 Alkaline Phosphatase 79 Total Protein 7.6 Albumin 3.7 Globulin 3.9 Albumin/Globulin Ratio 0.9 Lipase 115 Urine Color Yellow Urine Clarity Clear Urine pH 6.5 Ur Specific [place] 1.010 Urine Protein 15 H Urine Glucose (UA) Normal Urine Ketones 5 H Urine Occult Blood 50 H Urine Nitrite Negative Urine Bilirubin Negative Urine Urobilinogen Normal Ur Leukocyte Esterase Negative Urine RBC 0-5 SEEN Urine WBC 0 SEEN Ur Squamous Epith Cells 0-5 SEEN Urine Bacteria 0 SEEN Urine Mucus 0 SEEN Radiography Diagnostic Testing: Clinical Impression(s) from Imaging Studies Abdomen/Pelvis CT 01/12/23 15:24 IMPRESSION: (NOT LISTED IN ORDER OF SIGNIFICANCE) There are no acute findings. Other findings as above. Electronically Signed: Phillip Raymond MD at 18:23 EDT , CT scan of the abdomen pelvis was obtained. There is no acute abnormality not ed. There is no free air or free fluid. There is no ureteral calculus noted. There is no evidence of bowel obstruction or perforation. This was interpreted by the radiologist and was also independently reviewed by myself. EKG Initial EKG: Attestation: I personally reviewed and interpreted this EKG as follows: Interpretation: Sinus Rhythm (73) and No Acute Injury Pattern Comments: EKG was obtained. On my independent interpretation, it showed a normal sinus rhythm with a rate of 73. MA interval, QRS interval, and QTc intervals were all normal. Mclean was normal. There are no acute ST or T wave changes. Prior EKG tracings: available for review Prior: Unchanged (07/01/2021) Treatment and Re-Evaluation :: Patient was given IV fluids and Zofran here. Patient was able to tolerate p.o. fluids. Patient was feeling better on reevaluation. Patient was given a prescription for Zofran. Patient was instructed to start with small amounts of liquids more frequently. Patient was instructed to advance his diet as tolerated. Patient was instructed to follow-up with his primary care physician in 5 to 7 days. Patient and family understood and were agreeable with the plan. All questions were answered. Discharge Plan Triage Chief Complaint: Nausea/Vomiting/Diarrhea ED Provider: [place] Dx/Rx/DC Orders Clinical Impression: Nausea and vomiting, Diarrhea, Dehydration Instructions: ED Vomiting and Diarrhea ... Prescriptions: New ondansetron [ondansetron] 4 mg tablet,disintegrating 4 mg PO Q8H PRN PRN (Reason: Nausea) Qty: 10 0RF No Action docusate sodium [Colace] 100 mg capsule 100 mg PO TID PRN (Reason: Constipation) fluticasone propionate 50 mcg/actuation spray,suspension 2 spray intranasal DAILY Qty: 16 3RF glucosamine-chondroitin [Osteo Bi-Flex] 250-200 mg tablet See Rx Instructions PO .COMPLEX Rx Instructions: as directed orally; multivitamin Tablet 1 tab PO DAILY vitamin B complex Tablet 1 tab PO DAILY Ventolin HFA 90 mcg/actuation HFA aerosol inhaler 2 puff INHALATION Q6H Qty: 8.5 2RF atenolol 50 mg tablet 50 mg PO DAILY Qty: 90 3RF trazodone 100 mg tablet 100 mg PO QHS Qty: 90 1RF cyclobenzaprine 5 mg tablet 5 mg PO TID Qty: 90 0RF pantoprazole 40 mg tablet,delayed release (DR/EC) 40 mg PO QAM Qty: 90 3RF pravastatin 40 mg tablet 40 mg PO QHS Qty: 90 3RF gabapentin 600 mg tablet 600 mg PO TID Qty: 90 1RF venlafaxine 150 mg capsule,extended release 24hr 150 mg PO DAILY Qty: 90 1RF hydrocodone-acetaminophen 10-325 mg tablet 1 tab PO 4X/DAY 30 Days Qty: 120 0RF Primary Care Provider: Miguel Stewart Referrals: Miguel Stewart DO [Primary Care Provider] - 5-7 Days Disposition Disposition: Home, Self Care
--- NOTE | 2023-01-12 15:24 | CT_ITS ---
STUDY: CT Abdomen And Pelvis W/ Contrast Injection 01/12/2023 6:19 PM REASON FOR EXAM: Male, 72 years old. Abdominal pain -- IV PO Contrast Individualized dose optimization techniques were used for this CT. COMPARISON: cta chest 05.18.21. TECHNIQUE: CT Abdomen And Pelvis W/ Contrast Injection Oral and amp;amp; IV Gastrografin and amp;amp; 100mL [id number] FINDINGS: There are atherosclerotic calcifications of visualized coronary arteries. The visualized portions of the heart are within normal limits. There are hypodensities of the liver. These maybe cysts but are indeterminate and other etiologies are not excluded. Normal gallbladder and extrahepatic biliary system. Normal spleen. Normal pancreas. There is dilation of the common bile duct. A common bile duct stone is not seen. The CBD diameter is 11 mm. Normal bilateral adrenal glands. No acute findings of the right kidney. Non obstructive 10mm left renal parenchymal stones. Normal visualized stomach. Normal small intestine. There are multiple colonic diverticula consistent with diverticulosis. There is non-visualization of the appendix. There are calcifications of the abdominal aorta. This is consistent for atherosclerotic disease. There is NO abdominal aortic aneurysm. Vascular workup can be obtained based on clinical correlation. Normal inferior vena cava. Subcentimeter mesenteric lymph nodes. Normal urinary bladder. There are prostatic calcifications. Normal abdominal wall. There are diffuse degenerative changes of the visualized lumbar spine. There is bilateral neural foraminal stenosis at L4-5 and L5-S1. There is a Grade 1 anterolisthesis of L5 on S1. There is scoliosis of the lumbar spine. CT/Abdomen/Pelvis WITH Contrast IMPRESSION: (NOT LISTED IN ORDER OF SIGNIFICANCE) There are no acute findings. Other findings as above. Electronically Signed: Phillip Raymond MD at 18:23 EDT ,
--- NOTE | 2023-01-12 15:27 | EKG12_ITS ---
Test Reason : Blood Pressure : / mmHG Vent. Rate : 073 BPM Atrial Rate : 073 BPM P-R Int : 152 ms QRS Dur : 094 ms QT Int : 400 ms P-R-T Axes : 076 084 063 degrees QTc Int : 440 ms Normal sinus rhythm Normal ECG Confirmed by TRACY WILCOX, DEONNA ([id number]), managing editor ROCAEL TINEO ([id number]) on 01/14/2023 11:18:01 AM Referred By: Confirmed By:MARTA MOLINA MD
[2023-01-12] MEDS: 0.9% Normal Saline 1,000 ML 1000 ML IV (15:37)
[2023-01-12] MEDS: Ondansetron 4 MG/2 ML Vial IV (15:37)
[2023-01-12 15:48] LABS: Absolute Lymphocyte Count 0.93 X10^3/uL (0.83-4.51); Absolute Neutrophil Count 5.7 X10^3/uL (2.0-7.7); Basophil# 0.03 X10^3/uL; Basophil% 0.4 % (0-1); Eosinophils% 1.4 % (0-5); Hematocrit 37.6 % (40-54); Hemoglobin 12.7 g/dL (13.0-16.5); Lymphocyte # 0.93 X10^3/ul (0.83-4.51); Lymphocyte % 12.7 % (19-41); Mean Corp Hgb Conc 33.8 g/dL (32-36); Mean Corpuscular Hgb 33.5 pg (27.0-32.0); Mean Corpuscular Volume 99.2 fL (80-94); Mean Platelet Vol. 9.5 fl (6.2-12.0); Monocyte# 0.56 X10^3/uL; Monocyte% 7.7 % (0-10); NRBC Flagged by Analyzer 0 % (0-5); Neutrophil # 5.67 X10^3/uL (2.7-7.7); Neutrophil % 77.5 % (47-70); Platelet Count 224 K/mm3 (150-450); RBC Distribution Width CV 12.3 % (11.6-14.6); RBC Distribution Width SD 45.1 fl (35.1-43.9); Red Blood Count 3.79 M/mm3 (4.6-6.2); White Blood Count 7.3 K/mm3 (4.4-11.0)
[2023-01-12 16:04] LABS: ALB/GLOB Ratio 0.9 RATIO (0.9-2.4); AST(SGOT) 51 U/L (15-37); Alanine Aminotransfer ALT/SGPT 26 U/L (16-61); Albumin, Serum 3.7 g/dL (3.2-5.0); Alkaline Phosphatase 79 U/L (45-117); Anion Gap 5 (5-15); BUN 16 mg/dL (7-18); BUN/Creat Ratio 15.2 RATIO (10-20); Calcium,Total 11.6 mg/dL (8.5-10.1); Chloride 105 mmol/L (98-107); Creatinine, Serum 1.05 mg/dL (0.70-1.30); EST Glomerular Filtration Rate 74 mL/min (>60); Est Glom Filt Rate - Afr Amer 89 mL/min (>60); Estimated Creatinine Clearance 67.16 ml/min; Globulin 3.9 g/dL (2.2-4.2); Glucose 110 mg/dL (74-106); Lipase 115 U/L (73-393); Magnesium 1.3 mg/dL (1.6-2.6); Potassium 4.4 mmol/L (3.5-5.1); Protein, Total 7.6 g/dL (6.4-8.2); Sodium Level 136 mmol/L (136-145)
[2023-01-12 17:01] VITALS: BP 154/77; PULSE 81; RESP 19; O2SAT 97
[2023-01-12 18:39] LABS: Bacteria 0 SEEN /hpf (None Seen); Mucous, Urine 0 SEEN /hpf (<or=2+); White Blood Cells 0 SEEN /hpf (0-5)
[2023-01-12 18:42] LABS: Color, Urine Yellow (Yellow); Glucose, Dipstick Normal (Normal); Ketone-Dipstick 5 mg/dl (Negative); Leukocyte Esterase-Dipstick Negative /ul (Negative); Nitrite-Dipstick Negative (Negative); Occult Blood-Urine 50 /ul (Negative); Protein-Dipstick 15 mg/dl (Negative); Urine Bilirubin Dipstick Negative (Negative); Urine Clarity Clear (Clear); Urine Urobilinogen Normal (Normal); Urine pH 6.5 (5.0 - 8.0)
[2023-01-12 18:51] LABS: Red Blood Cells-Urine 0-5 SEEN /hpf (0-5); Squamous Epithelial Cells - UA 0-5 SEEN /hpf (0-5)
[2023-01-12 19:47] VITALS: BP 120/74; PULSE 74; RESP 14; TEMP 37.1; O2SAT 99
== END 2023-01-12 19:50 | disposition home or self-care (01) ==
PROVIDERS: Emergency Provider Emergency Medicine; PCP Family Medicine; Visit Provider Emergency Medicine
DX: R11.2 Nausea with vomiting, unspecified (principal); R19.7 Diarrhea, unspecified; E86.0 Dehydration; Z87.891 Personal history of nicotine dependence
CPT/HCPCS: 96361; 99282; 96374; 74177; 80053; 81001; 83690; 83735; 85025; 93005; J7030; Q9967; A4216; J2405

== ENCOUNTER 2023-01-14 14:53 | Inpatient (IN) | payer MEDICARE, MEDICAID, SELFPAY ==
[2023-01-14 14:54] VITALS: BP 157/91; PULSE 80; RESP 14; TEMP 36.1; O2SAT 100; BMI 21.6
--- NOTE | 2023-01-14 15:06 | EKG12_ITS ---
Test Reason : GENERAL Blood Pressure : / mmHG Vent. Rate : 074 BPM Atrial Rate : 074 BPM P-R Int : 156 ms QRS Dur : 096 ms QT Int : 414 ms P-R-T Axes : 070 084 089 degrees QTc Int : 459 ms Normal sinus rhythm Normal ECG Confirmed by TRACY WILCOX, DEONNA ([id number]), news assignment editor MIMI RAPHAEL ([id number]) on 01/16/2023 9:47:13 AM Referred By: Confirmed By:MARTA MOLINA MD
--- NOTE | 2023-01-14 15:08 | EX.ED.DYSGE1 ---
HPI History of Present Illness Chief Complaint: Abd Pain Narrative Narrative: Patient was seen recently for nausea and vomiting, he has not had diarrhea but was found to have a normal CT, at that time he was hydrated had unremarkable electrolytes and white count as well as lipase and improved and was sent home with Zofran, he started having nausea again and even his outpatient Zofran did not improve his symptoms. He continues to have nausea and vomiting. No fever or chills he is denying abdominal pain. He does not have any back pain or flank pain. Per his he has been more confused recently. He cannot finish sentences and he gets confused about most things. [facility] Medical History Arthritis Chronic pain Depression GERD (gastroesophageal reflux disease) History of pneumonia History of stomach ulcers Hyperlipidemia Hypertension IBS (irritable bowel syndrome) Kidney stones Neuropathy Severe protein-calorie malnutrition Smoker Syncope Home Medications docusate sodium 100 mg capsule (Colace) 100 mg PO TID PRN Constipation 06/01/21 [History Last Taken Unknown] multivitamin 1 tab PO DAILY supplement 07/01/21 [History Last Taken Unknown] vitamin B complex 1 tab PO DAILY supplement 07/01/21 [History Last Taken Unknown] fluticasone propionate 50 mcg/actuation nasal spray,suspension 2 spray intranasal DAILY #16 grams 10/25/21 [Rx Last Taken Unknown] albuterol sulfate 90 mcg/actuation aerosol inhaler (Ventolin HFA) 2 puff inhalation Q6H #8.5 grams 11/26/21 [Rx Last Taken Unknown] atenolol 50 mg tablet 50 mg PO DAILY #90 tabs 10/29/22 [Rx Last Taken Unknown] cyclobenzaprine 5 mg tablet 5 mg PO TID pain #90 tabs 10/29/22 [Rx Last Taken Unknown] pantoprazole 40 mg tablet,delayed release 40 mg PO QAM #90 tabs 10/29/22 [Rx Last Taken Unknown] trazodone 100 mg tablet 100 mg PO QHS #90 tabs 10/29/22 [Rx Last Taken Unknown] pravastatin 40 mg tablet 40 mg PO QHS #90 tabs 11/15/22 [Rx Last Taken Unknown] gabapentin 600 mg tablet 600 mg PO TID #90 tabs 12/13/22 [Rx Last Taken Unknown] venlafaxine 150 mg capsule,extended release 24 hr 150 mg PO DAILY #90 caps 12/13/22 [Rx Last Taken Unknown] hydrocodone 10 mg-acetaminophen 325 mg tablet 1 tab PO 4X/DAY 1 month #120 tabs 01/10/23 [Rx Last Taken Unknown] glucosamine-chondroitin 250 mg-200 mg tablet (Osteo Bi-Flex) See Rx Instructions PO .COMPLEX 01/12/23 [History Last Taken Unknown] ondansetron 4 mg disintegrating tablet 4 mg PO Q8H PRN PRN Nausea #10 tabs 01/12/23 [Rx Last Taken Unknown] Allergy/AdvReac Type Severity Reaction Status Date / Time aspirin Allergy Severe bleeding Verified 01/14/23 14:54 Family History Mother Myocardial infarction, Onset Age: 49 Depression Father Hypertension CVA (cerebral vascular accident), Onset Age: 49 Sister Thyroid disorder Uncle ulcers Surgical History History of endoscopy Social History Smoking Status: Former smoker quit date: 07/14/21 alcohol intake: never substance use type: does not use what type of physical activity do you participate in: other details: yard work, house work ROS ROS ED ROS Narrative Past medical history: Reviewed, includes history of hypertension, hypercholesterolemia, GERD Medications: Reviewed Social history: Lives with Review of systems: General: No fever Eyes: No visual changes ENT: No upper airway congestion, normal voice Neck: No neck pain Cardiovascular: No chest pain Respiratory: No shortness of breath or cough Gastrointestinal: As in HPI Genitourinary: No dysuria Musculoskeletal: Denies myalgias no difficulty with ambulation Skin: No rash Neurological: Per he has had some mild confusion. EXAM Physical Exam Narrative Exam Narrative: Physical exam General: He appears somewhat uncomfortable Head: Normocephalic, Atraumatic Eyes: Conjunctiva not pale ENT: Dry mucous membranes Neck: Supple, Nontender, No lymphadenopathy Cardiovascular: Regular rate, Regular rhythm Respiratory: No distress, CTA bilaterally Abdomen: Soft, Nontender, Nondistended. He has bowel sounds. Back: Nontender, Normal Inspection. Negative for: CVA tenderness Extremities: Nontender, No edema Skin: Normal color, No rash Neurological: Alert oriented to person and place but not year or month, Normal Strength, Normal Sensation Const Vital Signs: 01/14/23 14:54 Temperature 97 F L Temperature Source Temporal Pulse Rate 80 Respiratory Rate 14 Blood Pressure 157/91 H Blood Pressure Mean 113 Pulse Ox 100 Oxygen Delivery Method Room Air [facility] MDM Narrative Medical decision making narrative: A. Problems addressed Patient comes in with nausea and vomiting he appeared in some distress, he also appeared dehydrated, he also is found to have a low sodium and he is symptomatic with this confusion which is new. This is likely hypovolemic hyponatremia. I thought about a CAT scan however he had one a few days ago and was normal and the patient has no abdominal pain on palpation. I will admit. B. Amount and/or complexity of the data 1. CBC CMP and lipase interpreted by me I talked to the who is at the bedside 2. I discussed with the hospitalist for admission. C. Risk of complications and/or morbidity Differential diagnosis: I thought about other electrolyte abnormalities, patient does have some slight hypokalemia, he has hyponatremia. He has dehydration. I thought about pancreatitis but lipase is normal. I thought about other abdominal catastrophes however patient had a normal CT and he has no abdominal pain at this time. Lab Data Labs: Laboratory Results - last 24 hr 01/14/23 01/14/23 15:15 15:15 WBC 7.8 RBC 3.78 L Hgb 12.8 L Hct 36.4 L MCV 96.3 H MCH 33.9 H MCHC 35.2 RDW Std Deviation 42.5 RDW Coeff of Issa 12.0 Plt Count 220 MPV 9.4 Immature Gran % (Auto) 0.300 Neut % (Auto) 76.3 H Lymph % (Auto) 12.0 L [place] % (Auto) 9.8 Eos % (Auto) 1.3 Baso % (Auto) 0.3 Absolute Neuts (auto) 6.0 Absolute Lymphs (auto) 0.94 Nucleated RBC % 0 Sodium 125 L Potassium 3.4 L Chloride 91 L Carbon Dioxide 28.0 Anion Gap 6 BUN 9 Creatinine 0.94 Estim Creat Clear Calc 74.60 Est GFR (MDRD) Af Amer 101 Est GFR (MDRD) Non-Af 83 BUN/Creatinine Ratio 9.5 L Glucose 113 H Calcium 9.4 Total Bilirubin 0.50 Direct Bilirubin 0.18 AST 153 H ALT 65 H Alkaline Phosphatase 73 Total Protein 7.4 Albumin 3.7 Globulin 3.7 Lipase 170 EKG Initial EKG: Comments: Sinus rhythm with a rate of 74. Normal DE and QTc intervals. No ischemic changes. Interpreted by emergency doctor. Discharge Plan Triage Chief Complaint: Abd Pain ED Provider: Joshua Orourke Dx/Rx/DC Orders Clinical Impression: Acute dehydration, Nausea & vomiting, Hyponatremia Prescriptions: No Action docusate sodium [Colace] 100 mg capsule 100 mg PO TID PRN (Reason: Constipation) fluticasone propionate 50 mcg/actuation spray,suspension 2 spray intranasal DAILY Qty: 16 3RF glucosamine-chondroitin [Osteo Bi-Flex] 250-200 mg tablet See Rx Instructions PO .COMPLEX Rx Instructions: as directed orally; multivitamin Tablet 1 tab PO DAILY vitamin B complex Tablet 1 tab PO DAILY ondansetron [ondansetron] 4 mg tablet,disintegrating 4 mg PO Q8H PRN PRN (Reason: Nausea) Qty: 10 0RF Ventolin HFA 90 mcg/actuation HFA aerosol inhaler 2 puff INHALATION Q6H Qty: 8.5 2RF atenolol 50 mg tablet 50 mg PO DAILY Qty: 90 3RF trazodone 100 mg tablet 100 mg PO QHS Qty: 90 1RF cyclobenzaprine 5 mg tablet 5 mg PO TID Qty: 90 0RF pantoprazole 40 mg tablet,delayed release (DR/EC) 40 mg PO QAM Qty: 90 3RF pravastatin 40 mg tablet 40 mg PO QHS Qty: 90 3RF gabapentin 600 mg tablet 600 mg PO TID Qty: 90 1RF venlafaxine 150 mg capsule,extended release 24hr 150 mg PO DAILY Qty: 90 1RF hydrocodone-acetaminophen 10-325 mg tablet 1 tab PO 4X/DAY 30 Days Qty: 120 0RF Primary Care Provider: Miguel Stewart Referrals: Miguel Stewart, [Primary Care Provider] - Disposition Disposition: Acute Care Hospital [facility]
[2023-01-14] MEDS: Ondansetron 4 MG/2 ML Vial IV (15:17)
[2023-01-14] MEDS: 0.9% Normal Saline 1,000 ML 1000 ML IV (15:18)
[2023-01-14 15:28] LABS: Absolute Lymphocyte Count 0.94 X10^3/uL (0.83-4.51); Basophil# 0.02 X10^3/uL; Basophil% 0.3 % (0-1); Eosinophils% 1.3 % (0-5); Hematocrit 36.4 % (40-54); Hemoglobin 12.8 g/dL (13.0-16.5); Lymphocyte # 0.94 X10^3/ul (0.83-4.51); Mean Corp Hgb Conc 35.2 g/dL (32-36); Mean Corpuscular Hgb 33.9 pg (27.0-32.0); Mean Corpuscular Volume 96.3 fL (80-94); Mean Platelet Vol. 9.4 fl (6.2-12.0); Monocyte# 0.77 X10^3/uL; Monocyte% 9.8 % (0-10); NRBC Flagged by Analyzer 0 % (0-5); Neutrophil # 5.97 X10^3/uL (2.7-7.7); Neutrophil % 76.3 % (47-70); Platelet Count 220 K/mm3 (150-450); RBC Distribution Width SD 42.5 fl (35.1-43.9); Red Blood Count 3.78 M/mm3 (4.6-6.2); White Blood Count 7.8 K/mm3 (4.4-11.0)
[2023-01-14] MEDS: Morphine 4 MG/ML Syringe IV (15:39)
[2023-01-14 15:46] LABS: AST(SGOT) 153 U/L (15-37); Alanine Aminotransfer ALT/SGPT 65 U/L (16-61); Albumin, Serum 3.7 g/dL (3.2-5.0); Alkaline Phosphatase 73 U/L (45-117); Anion Gap 6 (5-15); BUN 9 mg/dL (7-18); BUN/Creat Ratio 9.5 RATIO (10-20); Bilirubin, Direct 0.18 mg/dL (0.00-0.30); Calcium,Total 9.4 mg/dL (8.5-10.1); Chloride 91 mmol/L (98-107); Creatinine, Serum 0.94 mg/dL (0.70-1.30); EST Glomerular Filtration Rate 83 mL/min (>60); Est Glom Filt Rate - Afr Amer 101 mL/min (>60); Globulin 3.7 g/dL (2.2-4.2); Glucose 113 mg/dL (74-106); Lipase 170 U/L (73-393); Potassium 3.4 mmol/L (3.5-5.1); Protein, Total 7.4 g/dL (6.4-8.2); Sodium Level 125 mmol/L (136-145)
[2023-01-14 16:26] LABS: Bacteria 0 SEEN /hpf (None Seen); Mucous, Urine 0 SEEN /hpf (<or=2+); White Blood Cells 0 SEEN /hpf (0-5)
--- NOTE | 2023-01-14 16:28 | HP.PCM_ITS ---
HPI - General General Date of Admission: 01/14/23 Date of Service: 01/14/23 Chief Complaint: Ongoing N/V, poor intake. HPI Narrative The patient is a 72 y/o M w/ PMHx: Chronic macrocytic anemia, GERD w/ Hx Gastric ulcers, Depression and Anxiety, HLD, COPD, Former tobacco use, Chronic pain syndrome who presents to the [facility] ED on 01/14/23 with history of recent onset persistent nausea, emesis and loose stools with generalized abdominal discomfort starting over the last 5 to 7 days with watery diarrhea with self administration initially of Imodium with no marked improvement with decreased oral intake and inability to keep anything down given intractable nausea and emesis with initial ED evaluation 01/12/23 with no obvious evidence of UTI, CBC not marked appearing and CMP appropriate at that time with CT abdomen pelvis with no acute findings with clinical improvement per note with discharge on Zofran and instruction to slowly advance diet with PCP follow-up however patient now represents to the [facility] ED on 01/14/23 with ongoing persistent nausea and emesis although resolution of diarrhea since prior ED evaluation with no fevers or chills but given unable to maintain appropriate hydration prompted family to bring patient back in for ev aluation. Patient has had confusion as associated which occurred prior also which is why family had brought him in originally with his symptoms but improved with ED interventions and has worsened again with no inability to maintain any oral intake. In the ED on evaluation patient with no abdominal pain and significant other who is present denies him having marking abdominal symptoms otherwise. She does report that he has had significant ongoing hiccups for the last 3 days which she has currently upon evaluation. He does report that he has had some room spinning sensation and has felt less stable on his feet. Work-up in the ED included T97, heart rate 80, BP 157/91, respiratory rate 14, 100% room air, CBC with WC 7.8, hemoglobin 12.8, MCV 96.3, platelet 220 without marked shift, CMP with sodium 125, potassium 3.4, chloride 91, BUN/creatinine 9/0.94, glucose 113, AST/ALT 153/65, lipase 170, UA pending upon requested evaluation of patient. In the ED patient administered Zofran 4 mg IV x2 as well as morphine 4 mg IV x1 and 1 L normal saline. [facility] Medical History Arthritis Chronic pain Depression GERD (gastroesophageal reflux disease) History of pneumonia History of stomach ulcers Hyperlipidemia Hypertension IBS (irritable bowel syndrome) Kidney stones Neuropathy Severe protein-calorie malnutrition Smoker Syncope Home Medications docusate sodium 100 mg capsule (Colace) 100 mg PO TID PRN Constipation 06/01/21 [History Last Taken Unknown] multivitamin 1 tab PO DAILY supplement 07/01/21 [History Last Taken Unknown] vitamin B complex 1 tab PO DAILY supplement 07/01/21 [History Last Taken Unknown] fluticasone propionate 50 mcg/actuation nasal spray,suspension 2 spray intranasal DAILY #16 grams 10/25/21 [Rx Last Taken Unknown] albuterol sulfate 90 mcg/actuation aerosol inhaler (Ventolin HFA) 2 puff inhalation Q6H #8.5 grams 11/26/21 [Rx Last Taken Unknown] atenolol 50 mg tablet 50 mg PO DAILY #90 tabs 10/29/22 [Rx Last Taken Unknown] cyclobenzaprine 5 mg tablet 5 mg PO TID pain #90 tabs 10/29/22 [Rx Last Taken Unknown] pantoprazole 40 mg tablet,delayed release 40 mg PO QAM #90 tabs 10/29/22 [Rx Last Taken Unknown] trazodone 100 mg tablet 100 mg PO QHS #90 tabs 10/29/22 [Rx Last Taken Unknown] pravastatin 40 mg tablet 40 mg PO QHS #90 tabs 11/15/22 [Rx Last Taken Unknown] gabapentin 600 mg tablet 600 mg PO TID #90 tabs 12/13/22 [Rx Last Taken Unknown] venlafaxine 150 mg capsule,extended release 24 hr 150 mg PO DAILY #90 caps 12/13/22 [Rx Last Taken Unknown] hydrocodone 10 mg-acetaminophen 325 mg tablet 1 tab PO 4X/DAY 1 month #120 tabs 01/10/23 [Rx Last Taken Unknown] glucosamine-chondroitin 250 mg-200 mg tablet (Osteo Bi-Flex) See Rx Instructions PO .COMPLEX 01/12/23 [History Last Taken Unknown] ondansetron 4 mg disintegrating tablet 4 mg PO Q8H PRN PRN Nausea #10 tabs 01/12/23 [Rx Last Taken Unknown] meloxicam 15 mg tablet 15 mg PO DAILY . 01/14/23 [History Last Taken 01/13/23] Allergy/AdvReac Type Severity Reaction Status Date / Time aspirin Allergy Severe bleeding Verified 01/14/23 14:54 Family History Mother Myocardial infarction, Onset Age: 49 Depression Father Hypertension CVA (cerebral vascular accident), Onset Age: 49 Sister Thyroid disorder Uncle ulcers Surgical History (Updated 01/14/23 @ 16:[address] Mariann Clancy MD) History of endoscopy History of thoracic surgery Social History (Updated 01/14/23 @ 16:[address] Mariann Clancy MD) household members: significant other Smoking Status: Former smoker quit date: 07/14/21 alcohol intake: never substance use type: does not use what type of physical activity do you participate in: other details: yard work, house work ROS ROS Narrative Admission Review of Systems: CONSTITUTIONAL: No weight loss, fever, chills, + weakness or fatigue. HEENT: + Reports occasional vertigo type symptoms, intractable hiccups. Eyes: No visual loss, blurred vision, double vision or yellow sclerae. Ears, Nose, Throat: No hearing loss, sneezing, congestion, runny nose or sore throat. SKIN: No rash or itching, lesions, wounds. CARDIOVASCULAR: No chest pain, chest pressure or chest discomfort, palpitations, edema, orthopnea, syncopal events. RESPIRATORY: No shortness of breath, cough or sputum, wheezing, hemoptysis. GASTROINTESTINAL: + anorexia, nausea, vomiting, diarrhea, abdominal pain, No melena, BRBPR. GENITOURINARY: No dysuria, frequency, urgency or retention. NEUROLOGICAL: + Mild vertigo, dizziness w/ activity, Confusion. No headache, syncope, paralysis, ataxia, numbness or tingling in the extremities, focal weakness, change in bowel or bladder control, seizure. MUSCULOSKELETAL: + muscle, back pain, joint pain or stiffness. HEMATOLOGIC: + anemia, bleeding or bruising. LYMPHATICS: No enlarged nodes. No history of splenectomy. PSYCHIATRIC: + history of depression or anxiety. ENDOCRINOLOGIC: No reports of sweating, cold or heat intolerance. No polyuria or polydipsia. ALLERGIES: No history of asthma, hives, eczema or rhinitis. Vital Signs Vital Signs Vital Signs: 01/14/23 14:54 Temperature 97 F L Temperature Source Temporal Pulse Rate 80 Respiratory Rate 14 Blood Pressure 157/91 H Blood Pressure Mean 113 Pulse Ox 100 Oxygen Delivery Method Room Air Weight Weight: 163 lb 11.2 oz Body Mass Index (BMI) 21.6 Physical Exam Narrative Physical Examination: General: Awake, alert, oriented to self, place, significant present as well as president but could not give correct month or year, remains cooperative, seated upright in ED bed, ongoing intractable hiccups during evaluation which significant confirms has been ongoing x3 days. Skin: Normal color, normal turgor, no icterus, no cyanosis. HEENT: AT/NC, EOMI, PERRLA, dry MM, no carotid bruits or JVD noted. Lungs: Diminished, greater bases, appropriate effort, no rales, ronchi or wheezing. Heart: Currently regular rate and rhythm; no gallop, rub audible. Abdomen: Soft, NTTP, ND, mildly hyperactive BS, no obvious evidence of HSM. Extremities: No cyanosis, clubbing, or edema. Neurological: Patient awake, alert, oriented as noted, cognitive function not baseline intact; pupils equally reactive to light and accommodation, cranial nerves II-XII grossly normal, moving all 4 extremities, no focal deficits, stren gth moderately to severely globally decreased secondary to acute presentation, no complaint of vertiginous symptoms at this time nor any obvious evidence of nystagmus. Psychiatric: Affect appears fatigued, ongoing intractable hiccups, no acute evidence of depressive or anxiety feelings. Results Lab / Micro Data Result Diagrams: 01/14/23 15:15 01/14/23 15:15 Labs: Laboratory Results - last 24 hr 01/14/23 15:15: WBC 7.8, RBC 3.78 L, Hgb 12.8 L, Hct 36.4 L, MCV 96.3 H, MCH 33.9 H, MCHC 35.2, RDW Std Deviation 42.5, RDW Coeff of Issa 12.0, Plt Count 220, MPV 9.4, Immature Gran % (Auto) 0.300, Neut % (Auto) 76.3 H, Lymph % (Auto) 12.0 L, [place] % (Auto) 9.8, Eos % (Auto) 1.3, Baso % (Auto) 0.3, Absolute Neuts (auto) 6.0, Absolute Lymphs (auto) 0.94, Nucleated RBC % 0 04/03/23 15:15: Sodium 125 L, Potassium 3.4 L, Chloride 91 L, Carbon Dioxide 28 .0, Anion Gap 6, BUN 9, Creatinine 0.94, Estim Creat Clear Calc 74.60, Est GFR (MDRD) Af Amer 101, Est GFR (MDRD) Non-Af 83, BUN/Creatinine Ratio 9.5 L, Glucose 113 H, Calcium 9.4, Total Bilirubin 0.50, Direct Bilirubin 0.18, AST 153 H, ALT 65 H, Alkaline Phosphatase 73, Total Protein 7.4, Albumin 3.7, Globulin 3.7, Lipase 170 Assessment & Plan Assessment/Plan (1) Nausea and vomiting: PLAN: Plan The patient is a 72 y/o M w/ PMHx: Chronic macrocytic anemia, GERD w/ Hx Gastric ulcers, Depression and Anxiety, HLD, COPD, Former tobacco use, Chronic pain syndrome who presents to the [facility] ED on 01/14/23 with history of recent onset persistent nausea, emesis and loose stools with generalized abdominal discomfort starting over the last 5 to 7 days with watery diarrhea with self administration initially of Imodium with no marked improvement with decreased oral intake and inability to keep anything down given intractable nausea and emesis with initial ED evaluation 01/12/23 with no obvious evidence of UTI, CBC not marked appearing and CMP appropriate at that time with CT abdomen pelvis with no acute findings with clinical improvement per note with discharge on Zofran and instruction to slowly advance diet with PCP follow-up however patient now represents to the [facility] ED on 01/14/23 with ongoing persistent nausea and emesis although resolution of diarrhea since prior ED evaluation with no fevers or chills but given unable to maintain appropriate hydration prompted family to bring patient back in for evaluation. #1. Electrolyte disturbances and Acute (Metabolic) Encephalopathy secondary to N/V/D, Possible Acute Gastroenteritis w/ concurrent intractable Hiccups and intermittent reported Vertigo: We will admit to medical surgical floor, will obtain CT head to be cautious, will trial dose x 1 thorazine IM given intractable hiccups, will continue aggressive hydration, if any recurrent diarrhea although that seems to have subsided would obtain C. difficile and enteric pathogen at that time, will trend CBC and CMP, will obtain procalcitonin and will initially defer immediate antibiotic initiation is certainly could be viral, will obtain respiratory viral panel also and COVID PCR, will have as needed antiemetic and pain regimen as needed, maintain on fall precautions, PT/OT/case management consulted for discharge planning as patient has certainly become deconditioned given advanced age and ongoing symptoms, will maintain on IV PPI and will start with initially clears if patient is able to tolerate with advancement is improving. If no recurrent loose stools but persistent nausea and emesis low threshold to involve gastroenterology. #2. Hyponatremia, hypovolemic: Admission sodium 125, chloride 91, likely secondary to GI losses and poor intake, will continue to aggressively hydrate and repeat CMP in a.m. #3. Elevated LFTs, unclear specific etiology: T. bili as well as D bili and alk phos normal levels, no prior significant elevations, likely related with acute presentation, will continue to judiciously hydrate and repeat CMP in AM. Recent CT abdomen pelvis with no obvious findings. If rising further will obtain hepatitis panel and consider obtaining focused hepatic ultrasound. #4. Hypokalemia: Admission K+ 3.4, magnesium level request, supplementation given, repeat level in AM. #5. Chronic COPD: Patient is not on chronic inhalers, in the interim we will have PRN albuterol, HOB, IS parameters. #6. Anxiety and depression: We will continue patient home venlafaxine and trazodone regimen. #7. Chronic neuropathy: We will continue patient home gabapentin regimen. #8. Hyperlipidemia: We will continue patient on statin therapy however if LFTs continue to notably rise would hold statin therapy #9. GERD with prior history of gastric ulcers: Given presentation will place on IV PPI #10. Chronic pain syndrome: We will continue patient home gabapentin and [place] home regimen with as needed above baseline pain regimen agents as noted given #1. #11. Former tobacco use: Encourage continued tobacco cessation. #12. Chronic anemia, macrocytic: Admission Hgb 12.8, similar to prior, will continue to trend. #13. DVT prophylaxis: Lovenox. #14. CODE status: Patient HCPOA is his significant other who is present and living will is currently in place. Discussed CODE status at length including difference between FULL code, DNR-CCA and DNR-CC status. Following discussions about the differences in these status, requested Full Code status at this time. Advanced Care Planning Face to Face Time: 16 minutes. Admission Evaluation Time spent evaluating chart, patient history, patient evaluation, care planning and discussion with specialists: 75 minutes. Charges/Coding Visit Charges Inpatient E&M: 70640 Init Hosp L3 Procedures Hospitalists Procedures: 13944 Advncd Care Plan 30 Min
--- NOTE | 2023-01-14 16:41 | NURSING ---
MED SURG WHITE HYPONATREMIA, DEHYDRATON
[2023-01-14 16:48] LABS: Color, Urine Yellow (Yellow); Glucose, Dipstick Normal (Normal); Ketone-Dipstick Negative (Negative); Leukocyte Esterase-Dipstick Negative /ul (Negative); Nitrite-Dipstick Negative (Negative); Occult Blood-Urine 250 /ul (Negative); Protein-Dipstick 30 mg/dl (Negative); Urine Bilirubin Dipstick Negative (Negative); Urine Clarity Sl. Cloudy (Clear); Urine Urobilinogen Normal (Normal)
[2023-01-14 16:50] VITALS: BP 148/90; PULSE 80; RESP 16; TEMP 36.6; O2SAT 97
[2023-01-14 16:58] LABS: Amorphous Sediment 1+ URATE; Red Blood Cells-Urine > 100 SEEN /hpf (0-5); Squamous Epithelial Cells - UA 0-5 SEEN /hpf (0-5)
--- NOTE | 2023-01-14 17:00 | CT_ITS ---
STUDY: CT BRAIN WITHOUT CONTRAST REASON FOR EXAM: Male, 72 years old. Vertigo RADIATION DOSAGE (If Supplied By Facility): CTDIvol = ( 44.99 ) mGy, DLP = ( 846.73 ) mGycm TECHNIQUE: Transaxial CT imaging of the brain was performed without administration of intravenous contrast material. Individualized dose optimization techniques were used for this CT. COMPARISON: July 01, 2021 FINDINGS: Normal soft tissue structures. Normal calvarium. Normal size ventricles and extra-axial spaces for the patient''s age. Normal white matter tracts of the cerebral hemispheres. Normal basal ganglia and thalami. Normal brainstem. Normal cerebellum. There is no intracranial hemorrhage. There are no findings of an acute ischemic infarction. There are atherosclerotic calcifications. Normal visualized paranasal sinuses. CT/Brain/Head without Contrast IMPRESSION: Normal unenhanced CT scan of the brain. Electronically Signed: Ector Ugarte MD at 19:16 EDT ,
[2023-01-14 17:20] VITALS: BMI 21.6
[2023-01-14] MEDS: 0.9% Normal Saline 1,000 ML 125 ML IV (17:43)
[2023-01-14] MEDS: Magnesium Sulfate 4gm/100mL 4 GM/100 ML IV.SOLN. IV (18:00)
[2023-01-14] MEDS: Potassium Chloride 10mEq/100mL 10 MEQ/100 ML IV.SOLN. 100 MEQ IV BOLUS ×4 (18:59→23:16)
[2023-01-14] MEDS: Metoclopramide 10 MG/2 ML Vial 2.5 MG IV ×2 (18:59→22:15)
[2023-01-14 19:24] LABS: Procalcitonin < 0.01 ng/mL (0.00-0.09)
[2023-01-14 19:45] VITALS: BP 142/87; PULSE 97; RESP 18; TEMP 36.6; O2SAT 94
[2023-01-15 02:30] VITALS: BP 148/79; PULSE 81; RESP 18; TEMP 36.6; O2SAT 95
[2023-01-15] MEDS: 0.9% Normal Saline 1,000 ML 125 ML IV ×3 (05:00→21:52)
[2023-01-15] MEDS: Acetaminophen 325 MG Tablet 650 MG PO ×3 (05:01→22:59)
[2023-01-15] MEDS: Metoclopramide 10 MG/2 ML Vial 2.5 MG IV ×3 (05:01→21:52)
[2023-01-15 05:16] VITALS: BMI 22.0
[2023-01-15 07:05] LABS: Absolute Neutrophil Count 7.6 X10^3/uL (2.0-7.7); Basophil# 0.03 X10^3/uL; Basophil% 0.3 % (0-1); Eosinophil# 0.15 X10^3/uL; Eosinophils% 1.5 % (0-5); Hematocrit 37.7 % (40-54); Hemoglobin 12.6 g/dL (13.0-16.5); Lymphocyte % 12.9 % (19-41); Mean Corp Hgb Conc 33.4 g/dL (32-36); Mean Corpuscular Hgb 32.9 pg (27.0-32.0); Mean Corpuscular Volume 98.4 fL (80-94); Mean Platelet Vol. 9.4 fl (6.2-12.0); Monocyte# 0.89 X10^3/uL; Monocyte% 8.9 % (0-10); NRBC Flagged by Analyzer 0 % (0-5); Neutrophil # 7.64 X10^3/uL (2.7-7.7); Platelet Count 251 K/mm3 (150-450); RBC Distribution Width CV 12.1 % (11.6-14.6); RBC Distribution Width SD 43.8 fl (35.1-43.9); Red Blood Count 3.83 M/mm3 (4.6-6.2); White Blood Count 10.1 K/mm3 (4.4-11.0)
[2023-01-15 07:36] LABS: AST(SGOT) 128 U/L (15-37); Alanine Aminotransfer ALT/SGPT 68 U/L (16-61); Albumin, Serum 3.7 g/dL (3.2-5.0); Alkaline Phosphatase 73 U/L (45-117); Anion Gap 4 (5-15); BUN 6 mg/dL (7-18); BUN/Creat Ratio 7.1 RATIO (10-20); Calcium,Total 9.4 mg/dL (8.5-10.1); Chloride 105 mmol/L (98-107); Creatinine, Serum 0.85 mg/dL (0.70-1.30); EST Glomerular Filtration Rate 95 mL/min (>60); Est Glom Filt Rate - Afr Amer 114 mL/min (>60); Estimated Creatinine Clearance 83.78 ml/min; Globulin 3.6 g/dL (2.2-4.2); Glucose 96 mg/dL (74-106); Potassium 3.7 mmol/L (3.5-5.1); Protein, Total 7.3 g/dL (6.4-8.2); Sodium Level 138 mmol/L (136-145)
[2023-01-15 08:12] VITALS: O2SAT 95
--- NOTE | 2023-01-15 10:03 | PCM.PN.HOSP ---
Subjective Subjective Doing well, will encourage p.o. intake no issues overnight Objective Data Objective Data Vital Signs: Vital Signs Temp Pulse Resp BP Pulse Ox O2 Del Method 97.9 F 81 18 148/79 H 95 Room Air 01/15/23 02:30 01/15/23 02:30 01/15/23 02:30 01/15/23 02:30 01/15/23 08:12 01/15/23 08:12 Oxygen Delivery Method Room Air Weight: 166 lb 3.657 oz Body Mass Index (BMI) 22.0 Intake & Output: Intake and Output for Last 24 Hours 01/14/23 01/15/23 01/16/23 03:59 03:59 03:59 Intake Total 2710 / 2710 100 / 100 Output Total 1200 / 1200 800 / 800 Balance 1510 / 1510 -700 / -700 Lab / Micro Data Result Diagrams: 01/15/23 06:45 01/15/23 06:45 Labs: Laboratory Results - last 24 hr 01/14/23 15:15: WBC 7.8, RBC 3.78 L, Hgb 12.8 L, Hct 36.4 L, MCV 96.3 H, MCH 33.9 H, MCHC 35.2, RDW Std Deviation 42.5, RDW Coeff of Issa 12.0, Plt Count 220, MPV 9.4, Immature Gran % (Auto) 0.300, Neut % (Auto) 76.3 H, Lymph % (Auto) 12.0 L, Sebastian % (Auto) 9.8, Eos % (Auto) 1.3, Baso % (Auto) 0.3, Absolute Neuts (auto) 6.0, Absolute Lymphs (auto) 0.94, Nucleated RBC % 0 01/14/23 15:15: Sodium 125 L, Potassium 3.4 L, Chloride 91 L, Carbon Dioxide 28.0, Anion Gap 6, BUN 9, Creatinine 0.94, Estim Creat Clear Calc 74.60, Est GFR (MDRD) Af Amer 101, Est GFR (MDRD) Non-Af 83, BUN/Creatinine Ratio 9.5 L, Glucose 113 H, Calcium 9.4, Total Bilirubin 0.50, Direct Bilirubin 0.18, AST 153 H, ALT 65 H, Alkaline Phosphatase 73, Total Protein 7.4, Albumin 3.7, Globulin 3.7, Lipase 170 01/14/23 15:15: Magnesium 1.0 L 01/14/23 16:20: Urine Color Yellow, Urine Clarity Sl. Cloudy, Urine pH 5.0, Ur Specific [place] 1.010, Urine Protein 30 H, Urine Glucose (UA) Normal, Urine Ketones Negative, Urine Occult Blood 250 H, Urine Nitrite Negative, Urine Bilirubin Negative, Urine Urobilinogen Normal, Ur Leukocyte Esterase Negative, Urine RBC > 100 SEEN, Urine WBC 0 SEEN, Ur Squamous Epith Cells 0-5 SEEN, Amorphous Sediment 1+ URATE, Urine Bacteria 0 SEEN, Urine Mucus 0 SEEN 01/14/23 17:39: Procalcitonin < 0.01 01/14/23 20:07: COVID-19 (LAUREN) Detected 01/15/23 06:45: WBC 10.1, RBC 3.83 L, Hgb 12.6 L, Hct 37.7 L, MCV 98.4 H, MCH 32.9 H, MCHC 33.4 D, RDW Std Deviation 43.8, RDW Coeff of Issa 12.1, Plt Count 251, MPV 9.4, Immature Gran % (Auto) 0.400, Neut % (Auto) 76.0 H, Lymph % (Auto) 12.9 L, Sebastian % (Auto) 8.9, Eos % (Auto) 1.5, Baso % (Auto) 0.3, Absolute Neuts (auto) 7.6, Absolute Lymphs (auto) 1.30, Nucleated RBC % 0 01/15/23 06:45: Sodium 138, Potassium 3.7, Chloride 105, Carbon Dioxide 29.0, Anion Gap 4 L, BUN 6 L, Creatinine 0.85, Estim Creat Clear Calc 83.78, Est GFR (MDRD) Af Amer 114, Est GFR (MDRD) Non-Af 95, BUN/Creatinine Ratio 7.1 L, Glucose 96, Calcium 9.4, Magnesium 2.0, Total Bilirubin 0.50, AST 128 H, ALT 68 H, Alkaline Phosphatase 73, Total Protein 7.3, Albumin 3.7, Globulin 3.6, Albumin/Globulin Ratio 1.0 Micro: Microbiology 01/14/23 20:07 Mucosa - Nasopharyngeal Respiratory Panel (PCR) - Final Radiography Diagnostic Testing: Radiology Impression Brain CT 01/14/23 17:00 IMPRESSION: Normal unenhanced CT scan of the brain. Electronically Signed: Ector Ugarte MD at 19:16 EDT Reading Location ID and State: [facility] / [place] , Service support , Physical Exam Narrative General: Alert, Oriented x3, Cooperative, No apparent distress HEENT: Atraumatic, PERRLA, EOMI, Normocephalic Oral: Moist Mucosa Neck: Supple, No JVD Lungs: Diminished, Normal air movement, No rhonchi, No wheeze, No rales Cardiovascular: Regular rate, Regular Rhythm, Normal S1, Normal S2, No murmurs Abdomen: Soft, Non Tender, Non-Distended, No Hepato-splenomegaly Extremities: No edema, Capillary Refill Less than 3 Seconds Skin: No rashes, No breakdown Musculoskeletal: No Tenderness to Palpation of Joints or Extremities Neurological: Moves all extremities, sensation intact Psych/Mental Status: Flat affect, Appropriate Assessment & Plan Assessment/Plan (1) Nausea and vomiting: PLAN: Plan 1. Acute viral gastroenteritis possibly due to COVID/elevated LFTs ? Unclear as to why respiratory panel and a COVID panel were obtained however COVID did come back positive ? Enteric pathogen and C. difficile panel are pending ? He does not appear to be having significant diarrhea at the moment ? Encourage p.o. intake ? Will not treat the positive COVID test as he is not having any oxygen issues ? Magnesium is improved we will continue to monitor electrolytes and replace as necessary ? LFTs appear to be improving ? Could be secondary to viral etiology 2. COPD no exacerbation ? Continue with inhalers ? Stable 3. HTN/HLD ? Blood pressure stable ? Continue with his home blood pressure and cholesterol medications 4. GERD ? Stable ? Continue with PPI 5. Anxiety/depression/chronic neuropathy with chronic pain ? Stable ? Continue with his home medications DVT: Lovenox Charges/Coding Visit Charges Inpatient E&M: 54822 Subs Hosp L2
[2023-01-15 10:13] VITALS: BP 139/79; PULSE 72; RESP 20; TEMP 36.8; O2SAT 94
[2023-01-15] MEDS: Enoxaparin 40 MG/0.4 ML Syringe SC (10:17)
--- NOTE | 2023-01-15 10:25 | CASEMGMT ---
DEZ LOVE Assessment: Face to Face with pt for initial transition planning/care coordination assessment. RN IVAN introduced self and role at [facility], pt voices understanding and consents to assessment. Pt is A/O x4 and answers all questions appropriately at this time. Pt sitting up in chair in no distress on RA. Care providers, pharmacy, and demographics verified/updated. Admitting Dx: gastroenteritis PCP:Terry Specialists:Pt denies. Preferred Pharmacy: [facility] Insurance: [facility], [facility] Prescription Benefit: yes LNOK: Judy Spears, sig other Living Arrangements: Pt lives with sig other in a two story home with a ramp to enter. Pt reports he is I in ADL's and denies concerns at home. Pt states he does the laundry and sig other prepares meals. Transportation: Pt drives self and denies concerns with transportation. DME/HHC/SNF: Pt does not use AD at home nor does he have any. Pt denies hx of HHC or SNF stays. Pt states no concerns with going home at time of dc. He states his sig other and he assist each other. Pt states no further concerns/needs. CM to follow. Advised pt to ask CM if any further question/concerns/needs arise, voices understanding. Pt Goal: Home Plan: Home, pending therapy eval
[2023-01-15 14:02] VITALS: BP 132/84; PULSE 88; RESP 20; TEMP 36.8; O2SAT 95
[2023-01-15 20:35] VITALS: BP 127/81; PULSE 102; RESP 18; TEMP 36.8; O2SAT 93
[2023-01-15] MEDS: MELATONIN 3 MG TABLET PO (21:52)
[2023-01-15] MEDS: oxyCODONE 5 MG Tablet PO (22:59)
[2023-01-16 05:36] VITALS: BMI 22.5
[2023-01-16 05:45] VITALS: BP 134/74; PULSE 94; RESP 18; TEMP 37.2; O2SAT 94
[2023-01-16] MEDS: 0.9% Normal Saline 1,000 ML 125 ML IV ×2 (05:46→14:14)
[2023-01-16] MEDS: Metoclopramide 10 MG/2 ML Vial 2.5 MG IV ×2 (05:47→14:14)
[2023-01-16 06:38] LABS: Absolute Lymphocyte Count 0.62 X10^3/uL (0.83-4.51); Absolute Neutrophil Count 13.6 X10^3/uL (2.0-7.7); Basophil# 0.05 X10^3/uL; Basophil% 0.3 % (0-1); Eosinophil# 0.01 X10^3/uL; Eosinophils% 0.1 % (0-5); Hemoglobin 11.4 g/dL (13.0-16.5); Lymphocyte # 0.62 X10^3/ul (0.83-4.51); Mean Corp Hgb Conc 33.5 g/dL (32-36); Mean Corpuscular Volume 98.6 fL (80-94); Mean Platelet Vol. 9.6 fl (6.2-12.0); Monocyte# 1.16 X10^3/uL; Monocyte% 7.5 % (0-10); NRBC Flagged by Analyzer 0 % (0-5); Neutrophil # 13.57 X10^3/uL (2.7-7.7); Neutrophil % 87.8 % (47-70); POSITIVE MORPHOLOGY YES; Platelet Count 235 K/mm3 (150-450); RBC Distribution Width CV 12.4 % (11.6-14.6); RBC Distribution Width SD 44.4 fl (35.1-43.9); Red Blood Count 3.45 M/mm3 (4.6-6.2); White Blood Count 15.5 K/mm3 (4.4-11.0)
[2023-01-16 06:51] LABS: Differential Indicated SCAN CRITERIA MET
[2023-01-16 07:00] LABS: Macrocytosis 1+
[2023-01-16 07:05] LABS: Anion Gap 7 (5-15); BUN 8 mg/dL (7-18); Calcium,Total 8.5 mg/dL (8.5-10.1); Chloride 109 mmol/L (98-107); Creatinine, Serum 0.73 mg/dL (0.70-1.30); EST Glomerular Filtration Rate 112 mL/min (>60); Est Glom Filt Rate - Afr Amer 136 mL/min (>60); Estimated Creatinine Clearance 72.91 ml/min; Glucose 112 mg/dL (74-106); Potassium 3.5 mmol/L (3.5-5.1); Sodium Level 141 mmol/L (136-145)
[2023-01-16 07:48] VITALS: O2SAT 94
--- NOTE | 2023-01-16 08:36 | PN.HOSP_ITS ---
Subjective Subjective Has a headache this morning, denies any significant abdominal pain. He was able to have a bowel movement yesterday enteric pathogen panel is pending Objective Data Objective Data Vital Signs: Vital Signs Temp Pulse Resp BP Pulse Ox O2 Del Method 98.9 F 94 18 134/74 H 94 Room Air 01/16/23 05:45 01/16/23 05:45 01/16/23 05:45 01/16/23 05:45 01/16/23 05:45 01/16/23 05:45 Oxygen Delivery Method Room Air Weight: 170 lb 3.15 oz Body Mass Index (BMI) 22.5 Intake & Output: Intake and Output for Last 24 Hours 01/15/23 01/16/23 01/17/23 03:59 03:59 03:59 Intake Total 2710 / 2710 2605.42 / 2605.42 1137.5 / 1137.5 Output Total 1200 / 1200 800 / 800 Balance 1510 / 1510 1805.42 / 1805.42 1137.5 / 1137.5 Lab / Micro Data Result Diagrams: 01/16/23 06:05 01/16/23 06:05 Labs: Laboratory Results - last 24 hr 01/16/23 06:05: WBC 15.5 H, RBC 3.45 L, Hgb 11.4 L, Hct 34.0 L, MCV 98.6 H, MCH 33.0 H, MCHC 33.5, RDW Std Deviation 44.4 H, RDW Coeff of Issa 12.4, Plt Count 235, MPV 9.6, Immature Gran % (Auto) 0.300, Neut % (Auto) 87.8 H, Lymph % (Auto) 4.0 L, [place] % (Auto) 7.5, Eos % (Auto) 0.1, Baso % (Auto) 0.3, Absolute Neuts (auto) 13.6 H, Absolute Lymphs (auto) 0.62 L, Nucleated RBC % 0, Macrocytosis 1+ 01/16/23 06:05: Sodium 141, Potassium 3.5, Chloride 109 H, Carbon Dioxide 25.0, Anion Gap 7, BUN 8, Creatinine 0.73, Estim Creat Clear Calc 72.91, Est GFR (MDRD) Af Amer 136, Est GFR (MDRD) Non-Af 112, BUN/Creatinine Ratio 11.0, Glucose 112 H, Calcium 8.5 Micro: Microbiology 01/14/23 20:07 Mucosa - Nasopharyngeal Respiratory Panel (PCR) - Final Physical Exam Narrative General: Alert, Oriented x3, Cooperative, No apparent distress HEENT: Atraumatic, PERRLA, EOMI, Normocephalic Oral: Moist Mucosa Neck: Supple, No JVD Lungs: Diminished, Normal air movement, No rhonchi, No wheeze, No rales Cardiovascular: Regular rate, Regular Rhythm, Normal S1, Normal S2, No murmurs Abdomen: Soft, Non Tender, Non-Distended, No Hepato-splenomegaly Extremities: No edema, Capillary Refill Less than 3 Seconds Skin: No rashes, No breakdown Musculoskeletal: No Tenderness to Palpation of Joints or Extremities Neurological: Moves all extremities, sensation intact Psych/Mental Status: Flat affect, Appropriate Assessment & Plan Assessment/Plan (1) Nausea and vomiting: PLAN: Plan 1. Acute viral gastroenteritis possibly due to COVID/elevated LFTs ? Unclear as to why respiratory panel and a COVID panel were obtained however COVID did come back positive ? Enteric pathogen and C. difficile panel are pending ? He does not appear to be having significant diarrhea at the moment ? Encourage p.o. intake ? Will not treat the positive COVID test as he is not having any oxygen issues ? Magnesium is improved we will continue to monitor electrolytes and replace as necessary ? LFTs appear to be improving ? Could be secondary to viral etiology 2. COPD no exacerbation ? Continue with inhalers ? Stable 3. HTN/HLD ? Blood pressure stable ? Continue with his home blood pressure and cholesterol medications 4. GERD ? Stable ? Continue with PPI 5. Anxiety/depression/chronic neuropathy with chronic pain ? Stable ? Continue with his home medications DVT: Lovenox Charges/Coding Visit Charges Inpatient E&M: 53151 Subs Hosp L2
[2023-01-16] MEDS: Acetaminophen 325 MG Tablet 650 MG PO ×2 (09:31→14:14)
[2023-01-16] MEDS: oxyCODONE 5 MG Tablet PO ×2 (09:31→14:14)
[2023-01-16] MEDS: Enoxaparin 40 MG/0.4 ML Syringe SC (09:31)
[2023-01-16 09:33] VITALS: BP 102/67; PULSE 86; RESP 18; TEMP 36.8; O2SAT 95
[2023-01-16 14:24] VITALS: BP 138/75; PULSE 89; RESP 18; TEMP 36.6; O2SAT 95
--- NOTE | 2023-01-16 17:58 | DCINST_ITS ---
Discharge Instructions Diet Discharge Diet: Low fat / Low cholesterol Activity Discharge Activity: Return to Normal Activity Dressing / Incision Call your doctor if you observe: Fever of 101 or Higher, Shortness of breath, Dizziness, Fainting spells, Swelling in the ankles, Chest pain and Increased palpitations (irregular heartbeat) Follow Up Care Test Results: Test results from this visit will be discussed in further detail at your follow- up appointment, if applicable. Discharge Plan Admission Admit Date/Time: 01/14/23 16:30 Attending Provider: Trent Martinez Primary Care Provider: Miguel Stewart Consulting Providers: Mariann Clancy Instructions Additional Instructions / Restrictions: Follow-up with your PCP in 3 to 5 days to monitor your white blood cell count as it did climb today to 15.5. Discharge Orders/Prescriptions Prescriptions: New levofloxacin 750 mg tablet 750 mg PO DAILY Qty: 7 0RF Continued docusate sodium [Colace] 100 mg capsule 100 mg PO TID PRN (Reason: Constipation) fluticasone propionate 50 mcg/actuation spray,suspension 2 spray intranasal DAILY Qty: 16 3RF glucosamine-chondroitin [Osteo Bi-Flex] 250-200 mg tablet See Rx Instructions PO .COMPLEX Rx Instructions: as directed orally; multivitamin Tablet 1 tab PO DAILY vitamin B complex Tablet 1 tab PO DAILY ondansetron 4 mg tablet,disintegrating 4 mg PO Q8H PRN PRN (Reason: Nausea) Qty: 10 0RF meloxicam 15 mg tablet 15 mg PO DAILY Ventolin HFA 90 mcg/actuation HFA aerosol inhaler 2 puff INHALATION Q6H Qty: 8.5 2RF atenolol 50 mg tablet 50 mg PO DAILY Qty: 90 3RF trazodone 100 mg tablet 100 mg PO QHS Qty: 90 1RF cyclobenzaprine 5 mg tablet 5 mg PO TID Qty: 90 0RF pantoprazole 40 mg tablet,delayed release (DR/EC) 40 mg PO QAM Qty: 90 3RF pravastatin 40 mg tablet 40 mg PO QHS Qty: 90 3RF gabapentin 600 mg tablet 600 mg PO TID Qty: 90 1RF venlafaxine 150 mg capsule,extended release 24hr 150 mg PO DAILY Qty: 90 1RF hydrocodone-acetaminophen 10-325 mg tablet 1 tab PO 4X/DAY 30 Days Qty: 120 0RF Referrals / Follow Up: Miguel Stewart DO [Primary Care Provider] - Within 1 Week Disposition Disposition (needs filled in before D/C Order can be placed): Home, Self Care
--- NOTE | 2023-01-16 18:03 | DS.PCM_ITS ---
Providers Date of Admission: 01/14/23 Primary Care Physician: Dr. Miguel Stewart, DO Reason For Visit: GASTROENTERITIS Diagnosis Discharge Diagnosis (1) Nausea and vomiting: Status: Acute Code(s): R11.2 - Nausea with vomiting, unspecified Medications at Discharge Home Medications docusate sodium 100 mg capsule (Colace) 100 mg PO TID PRN Constipation 06/01/21 multivitamin 1 tab PO DAILY supplement 07/01/21 vitamin B complex 1 tab PO DAILY supplement 07/01/21 fluticasone propionate 50 mcg/actuation nasal spray,suspension 2 spray intranasal DAILY #16 grams 10/25/21 albuterol sulfate 90 mcg/actuation aerosol inhaler (Ventolin HFA) 2 puff inhalation Q6H #8.5 grams 11/26/21 atenolol 50 mg tablet 50 mg PO DAILY #90 tabs 10/29/22 cyclobenzaprine 5 mg tablet 5 mg PO TID pain #90 tabs 10/29/22 pantoprazole 40 mg tablet,delayed release 40 mg PO QAM #90 tabs 10/29/22 trazodone 100 mg tablet 100 mg PO QHS #90 tabs 10/29/22 pravastatin 40 mg tablet 40 mg PO QHS #90 tabs 11/15/22 gabapentin 600 mg tablet 600 mg PO TID #90 tabs 12/13/22 venlafaxine 150 mg capsule,extended release 24 hr 150 mg PO DAILY #90 caps 12/13/22 hydrocodone 10 mg-acetaminophen 325 mg tablet 1 tab PO 4X/DAY 1 month #120 tabs 01/10/23 glucosamine-chondroitin 250 mg-200 mg tablet (Osteo Bi-Flex) See Rx Instructions PO .COMPLEX 01/12/23 ondansetron 4 mg disintegrating tablet 4 mg PO Q8H PRN PRN Nausea #10 tabs 01/12/23 meloxicam 15 mg tablet 15 mg PO DAILY . 01/14/23 levofloxacin 750 mg tablet 750 mg PO DAILY #7 tabs 01/16/23 Hospital Course Operations None Procedures None Summary of Care Provided Minutes Spent on Discharge: 38 Hospital Course: Per HPI: The patient is a 72 y/o M w/ PMHx: Chronic macrocytic anemia, GERD w/ Hx Gastric ulcers, Depression and Anxiety, HLD, COPD, Former tobacco use, Chronic pain syndrome who presents to the [facility] ED on 01/14/23 with history of recent onset persistent nausea, emesis and loose stools with generalized abdominal discomfort starting over the last 5 to 7 days with watery diarrhea w ith self administration initially of Imodium with no marked improvement with decreased oral intake and inability to keep anything down given intractable nausea and emesis with initial ED evaluation 01/12/23 with no obvious evidence of UTI, CBC not marked appearing and CMP appropriate at that time with CT abdomen pelvis with no acute findings with clinical improvement per note with discharge on Zofran and instruction to slowly advance diet with PCP follow-up however patient now represents to the [facility] ED on 01/14/23 with ongoing persistent nausea and emesis although resolution of diarrhea since prior ED evaluation with no fevers or chills but given unable to maintain appropriate hydration prompted family to bring patient back in for evaluation. Patient has had confusion as associated which occurred prior also which is why family had brought him in originally with his symptoms but improved with ED interventions and has worsened again with no inability to maintain any oral intake.? In the ED on evaluation patient with no abdominal pain and significant other who is present denies him having marking abdominal symptoms otherwise.? She does report that he has had significant ongoing hiccups for the last 3 days which she has currently upon evaluation.? He does report that he has had some room spinning sensation and has felt less stable on his feet.? Work-up in the ED included T97, heart rate 80, BP 157/91, respiratory rate 14, 100% room air, CBC with WC 7.8, hemoglobin 12.8, MCV 96.3, platelet 220 without marked shift, CMP with sodium 125, potassium 3.4, chloride 91, BUN/creatinine 9/0.94, glucose 113, AST/ALT 153/65, lipase 170, UA pending upon requested evaluation of patient.? In the ED patient administered Zofran 4 mg IV x2 as well as morphine 4 mg IV x1 and 1 L normal saline. Hospital Course: 1. Acute viral gastroenteritis possibly due to COVID/elevated LFTs ? Unclear as to why respiratory panel and a COVID panel were obtained however COVID did come back positive ? Enteric pathogen and C. difficile panel are negative ? He does not appear to be having significant diarrhea at the moment ? Encourage p.o. intake ? Will not treat the positive COVID test as he is not having any oxygen issues ? Magnesium is improved we will continue to monitor electrolytes and replace as necessary ? LFTs appear to be improving ?When I went back in today to tell him that his test did come back negative and that his nausea, vomiting, diarrhea were likely due to COVID he requested to be discharged home. I explained to him that he did have a bump in his white count today which is possibly indicative to a bacterial infection but he felt that he was doing fine and would like to go home today. I requested that if he were to spike a fever or get worse to come back to the hospital otherwise to follow-up with his PCP in 3 to 5 days. He does have a little bit of a productive cough and review of the CT of his abdomen pelvis was obtained on 01/12/2023, his lung bases look clear however bacterial superinfection with COVID is possible so we will provide him with Levaquin for 7 days on discharge to take once daily. He expressed understanding of the risks and benefits of going home and he still wants to go home today. 2. COPD no exacerbation ? Continue with inhalers ? Stable 3. HTN/HLD ? Blood pressure stable ? Continue with his home blood pressure and cholesterol medications 4. GERD ? Stable ? Continue with PPI 5. Anxiety/depression/chronic neuropathy with chronic pain ? Stable ? Continue with his home medications Weight / BMI Weight Weight: 170 lb 3.15 oz Body Mass Index (BMI) 22.5 ABG / Lab / Microbiology Data Result Diagrams: 01/16/23 06:05 01/16/23 06:05 Laboratory: Laboratory Results - last 24 hr 01/16/23 06:05: WBC 15.5 H, RBC 3.45 L, Hgb 11.4 L, Hct 34.0 L, MCV 98.6 H, MCH 33.0 H, MCHC 33.5, RDW Std Deviation 44.4 H, RDW Coeff of Issa 12.4, Plt Count 235, MPV 9.6, Immature Gran % (Auto) 0.300, Neut % (Auto) 87.8 H, Lymph % (Auto) 4.0 L, [place] % (Auto) 7.5, Eos % (Auto) 0.1, Baso % (Auto) 0.3, Absolute Neuts (auto) 13.6 H, Absolute Lymphs (auto) 0.62 L, Nucleated RBC % 0, Macrocytosis 1+ 01/16/23 06:05: Sodium 141, Potassium 3.5, Chloride 109 H, Carbon Dioxide 25.0, Anion Gap 7, BUN 8, Creatinine 0.73, Estim Creat Clear Calc 72.91, Est GFR (MDRD) Af Amer 136, Est GFR (MDRD) Non-Af 112, BUN/Creatinine Ratio 11.0, Glucose 112 H, Calcium 8.5 Microbiology: Microbiology 01/15/23 10:20 Stool C. difficile GDH Antigen & Toxins - Final 01/15/23 10:20 Stool C. difficile DNA Amplification - Final 01/15/23 16:20 Stool Enteric Bacteriology - Final 01/14/23 20:07 Mucosa - Nasopharyngeal Respiratory Panel (PCR) - Final D/C Instructions Discharge Diet: Low fat / Low cholesterol Call your doctor if you observe: Fever of 101 or Higher, Shortness of breath, Dizziness, Fainting spells, Swelling in the ankles, Chest pain and Increased palpitations (irregular heartbeat) Meaningful Use Info Meaningful Use Diagnoses (Choose all that apply): None applicable Discharge Plan Admission Admit Date/Time: 01/14/23 16:30 Attending Provider: Trent Martinez Primary Care Provider: Miguel Stewart Consulting Providers: Mariann Clancy Instructions Additional Instructions / Restrictions: Follow-up with your PCP in 3 to 5 days to monitor your white blood cell count as it did climb today to 15.5. Discharge Orders/Prescriptions Prescriptions: New levofloxacin 750 mg tablet 750 mg PO DAILY Qty: 7 0RF Continued docusate sodium [Colace] 100 mg capsule 100 mg PO TID PRN (Reason: Constipation) fluticasone propionate 50 mcg/actuation spray,suspension 2 spray intranasal DAILY Qty: 16 3RF glucosamine-chondroitin [Osteo Bi-Flex] 250-200 mg tablet See Rx Instructions PO .COMPLEX Rx Instructions: as directed orally; multivitamin Tablet 1 tab PO DAILY vitamin B complex Tablet 1 tab PO DAILY ondansetron 4 mg tablet,disintegrating 4 mg PO Q8H PRN PRN (Reason: Nausea) Qty: 10 0RF meloxicam 15 mg tablet 15 mg PO DAILY Ventolin HFA 90 mcg/actuation HFA aerosol inhaler 2 puff INHALATION Q6H Qty: 8.5 2RF atenolol 50 mg tablet 50 mg PO DAILY Qty: 90 3RF trazodone 100 mg tablet 100 mg PO QHS Qty: 90 1RF cyclobenzaprine 5 mg tablet 5 mg PO TID Qty: 90 0RF pantoprazole 40 mg tablet,delayed release (DR/EC) 40 mg PO QAM Qty: 90 3RF pravastatin 40 mg tablet 40 mg PO QHS Qty: 90 3RF gabapentin 600 mg tablet 600 mg PO TID Qty: 90 1RF venlafaxine 150 mg capsule,extended release 24hr 150 mg PO DAILY Qty: 90 1RF hydrocodone-acetaminophen 10-325 mg tablet 1 tab PO 4X/DAY 30 Days Qty: 120 0RF Referrals / Follow Up: Miguel Stewart DO [Primary Care Provider] - Within 1 Week Disposition Disposition (needs filled in before D/C Order can be placed): Home, Self Care Charges/Coding Visit Charges Inpatient E&M: 14308 Disch Hosp >30min
[2023-01-16 19:05] VITALS: BP 138/76; PULSE 113; RESP 18; TEMP 36.8; O2SAT 95
== END 2023-01-16 19:20 | disposition home or self-care (01) | DRG 391 ==
LOC: ED 16:29 → MS3 16:43
PROVIDERS: Admitting Provider Family Medicine; Emergency Provider Emergency Medicine; PCP Family Medicine; Visit Provider Family Medicine
DX: A08.4 Viral intestinal infection, unspecified (principal); U07.1 COVID-19; E87.1 Hypo-osmolality and hyponatremia; J44.9 Chronic obstructive pulmonary disease, unspecified; K21.9 Gastro-esophageal reflux disease without esophagitis; E87.6 Hypokalemia; I10 Essential (primary) hypertension; G62.9 Polyneuropathy, unspecified; E86.0 Dehydration; E78.00 Pure hypercholesterolemia, unspecified; D53.9 Nutritional anemia, unspecified; F41.9 Anxiety disorder, unspecified; E86.1 Hypovolemia; G89.4 Chronic pain syndrome; F32.A Depression, unspecified; R94.5 Abnormal results of liver function studies; R06.6 Hiccough; Z79.891 Long term (current) use of opiate analgesic; Z79.82 Long term (current) use of aspirin; Z79.899 Other long term (current) drug therapy; Z87.891 Personal history of nicotine dependence
CPT/HCPCS: 36415; 70450; 74177; 80048; 80053; 80076; 81001; 83690; 83735; 84145; 85025; 87493; 87506; 87633; 87635; 93005; 94668; 96361; 96374; 97162; 97166; 97530; 99282; 99284; 99406; J7030; Q9967; A4216; J2405; U0003; U0005

== ENCOUNTER → 2023-01-24 | Outpatient (CLI) | payer MEDICARE, MEDICAID, SELFPAY ==
[2023-01-24 15:21] LABS: Absolute Lymphocyte Count 1.24 X10^3/uL (0.83-4.51); Absolute Neutrophil Count 8.6 X10^3/uL (2.0-7.7); Basophil# 0.07 X10^3/uL; Basophil% 0.6 % (0-1); Eosinophil# 0.36 X10^3/uL; Eosinophils% 3.2 % (0-5); Lymphocyte # 1.24 X10^3/ul (0.83-4.51); Lymphocyte % 11.2 % (19-41); Mean Corp Hgb Conc 32.5 g/dL (32-36); Mean Corpuscular Hgb 33.2 pg (27.0-32.0); Mean Corpuscular Volume 102.3 fL (80-94); Mean Platelet Vol. 9.4 fl (6.2-12.0); Monocyte# 0.69 X10^3/uL; Monocyte% 6.2 % (0-10); NRBC Flagged by Analyzer 0 % (0-5); Neutrophil # 8.64 X10^3/uL (2.7-7.7); Neutrophil % 77.8 % (47-70); Platelet Count 469 K/mm3 (150-450); RBC Distribution Width CV 13.2 % (11.6-14.6); RBC Distribution Width SD 48.9 fl (35.1-43.9); Red Blood Count 3.91 M/mm3 (4.6-6.2); White Blood Count 11.1 K/mm3 (4.4-11.0)
[2023-01-24 15:23] LABS: AST(SGOT) 20 U/L (15-37); Alanine Aminotransfer ALT/SGPT 25 U/L (16-61); Albumin, Serum 3.1 g/dL (3.2-5.0); Alkaline Phosphatase 82 U/L (45-117); Bilirubin, Direct 0.17 mg/dL (0.00-0.30); Globulin 3.8 g/dL (2.2-4.2); Protein, Total 6.9 g/dL (6.4-8.2)
== END | disposition home or self-care (01) ==
LOC: BIMLAB 11:45
PROVIDERS: PCP Family Medicine; Referring Provider Family Medicine; Visit Provider Family Medicine
DX: I10 Essential (primary) hypertension (principal); R74.8 Abnormal levels of other serum enzymes
CPT/HCPCS: 36415; 80076; 85025

== ENCOUNTER → 2023-04-29 | Outpatient (CLI) | payer MEDICARE, MEDICAID, SELFPAY ==
--- NOTE | 2023-04-29 15:48 | CT_ITS ---
INDICATION: follow up CT scan EXAMINATION: CT CHEST WITH CONTRAST - CT Chest W/ Contrast Injection TECHNIQUE: Helically acquired images were obtained of the chest following IV contrast. A radiation dose optimization technique was used for this scan. IV Contrast dosage and agent: RADIATION DOSAGE (If Supplied By Facility): CTDIvol = ( 11.07 ) mGy, DLP = ( 245.61 ) mGycm COMPARISON: July 05, 2022 FINDINGS: LUNGS, PLEURA AND LARGE AIRWAYS: Probable scarring with mild bronchiectasis in the left lung base medially. Stable pleural-based posterior right lower lobe nodule measuring 4 mm, image 90 series 4. Focal 5 mm nodular density/scarring in the right lung base laterally, image 124 series 4. Right basilar bronchiectasis. Mild patchy interstitial densities in the lung bases. No pneumothorax. THYROID: No thyroid lesions. HEART AND PERICARDIUM: Heart size is normal. No pericardial effusion. VESSELS: Thoracic aorta is not dilated. No aortic dissection. No obvious central pulmonary embolism although this study was not performed with the pulmonary embolism protocol. MEDIASTINUM AND ANJELICA: No mediastinal or hilar adenopathy. Esophagus is unremarkable. No hiatal hernia. UPPER ABDOMEN: Relatively stable hypoattenuating hepatic nodules, likely cystic in nature up to 1 cm. BONES: No suspicious lytic or blastic abnormality. CT/Chest WITH Contrast IMPRESSION: Probable interval increasing scarring in the lung bases with mild bronchiectasis, left more than right. Stable right lower lobe pleural-based nodular density. Follow-up in 6-12 months if needed. Electronically Signed: Ta Sotomayor DO at 17:10 EDT ,
[2023-04-29 16:18] LABS: CREATININE FINGERSTICK 1.5 mg/dL (0.70-1.30)
== END | disposition home or self-care (01) ==
LOC: CT 15:46
PROVIDERS: PCP Family Medicine; Referring Provider Family Medicine; Visit Provider Family Medicine
DX: R63.4 Abnormal weight loss (principal)
CPT/HCPCS: 71260; Q9967

== ENCOUNTER → 2023-05-27 | Outpatient (CLI) | payer MEDICARE, MEDICAID, SELFPAY ==
--- NOTE | 2023-05-27 16:25 | CT_ITS ---
INDICATION: foot drop EXAMINATION: CT BRAIN WITH AND WITHOUT CONTRAST - CT Head or Brain WO/W Contrast Injection TECHNIQUE: Multiple axial images were obtained of the brain with and without IV contrast. A radiation dose optimization technique was used for this scan. IV Contrast dosage and agent: IV 50mL [id number]-370 RADIATION DOSAGE (If Supplied By Facility): CTDIvol = ( 44.99 ) mGy, DLP = ( 1580.97 ) mGycm COMPARISON: Jan 14 2023 5:01pm FINDINGS: BRAIN PARENCHYMA: No intra- or extra-axial hemorrhage. No evidence of acute infarct. No intracranial mass or mass effect. There is preservation of the de guzman/white matter interface. Posterior fossa structures are unremarkable. No abnormal contrast enhancement. CSF SPACES: Appropriate for age. No hydrocephalus. Basal cisterns are patent. CALVARIUM, SKULL BASE, PARANASAL SINUSES AND MASTOID AIR CELLS: Clear. No discrete lytic or blastic abnormalities. ORBITS: Both globes, extraocular muscles, optic nerves and retrobulbar fat appear unremarkable. ASPECTS Score for Acute Strokes: 10 CT/Brain/Head W/WO Contrast IMPRESSION: Negative CT Brain with and without contrast. Electronically Signed: Nan Calvo MD at 2:23 EDT ,
== END | disposition home or self-care (01) ==
LOC: CT 16:24
PROVIDERS: PCP Family Medicine; Referring Provider Family Medicine; Visit Provider Family Medicine
DX: M21.379 Foot drop, unspecified foot (principal)
CPT/HCPCS: 70470; Q9967; A4216

== ENCOUNTER → 2023-07-08 | Outpatient (CLI) | payer MEDICARE, MEDICAID, SELFPAY ==
--- NOTE | 2023-07-08 13:27 | CT_ITS ---
STUDY: LOW DOSE CT LUNG CANCER SCREENING REASON FOR EXAM: Male, 73 years old. h/o Tobacco Dependency RADIATION DOSAGE (If Supplied By Facility): CTDIvol = ( 1.58 ) mGy, DLP = ( 107.78 ) mGycm TECHNIQUE: No contrast was administered. Low dose technique was utilized (average mAS-38 and kVp 120). 1.25 mm axial source images with a slice interval of 1.25-mm were reconstructed in lung windows. 2.5 mm axial source images with a slice interval of 2.5-mm were reconstructed in lung windows. 5.0 mm axial source images with a slice interval of 5.0-mm were reconstructed in soft tissue windows. COMPARISON: Prior study dated: 04/29/2023 Lungs: Secretions noted layering in the right mainstem bronchus extending from the trachea. Minimal linear filling defect in the left mainstem bronchus. Bronchial wall thickening with scattered bronchial filling defects noted. This is greatest in the lower lungs. No pneumothorax. No pleural effusion. Mild centrilobular emphysema. Pulmonary nodules again noted. 1. Solid pleural-based 0.4 cm nodule of the right lower lobe on series 5 image 156. This is unchanged. 2. The previous ill-defined opacity of the left lower lobe seen on the study from 07/05/2022 has now resolved. There are a few pulmonary nodules seen in the left lower lobe which appears new from that study. These also appear new from the 04/29/2023 study, with other tree-in-bud nodules resolved. The largest of these nodules is seen on series 5 image 188 measuring 0.5 cm. 3. Unchanged right middle lobe 0.4 cm nodule on series 5 image 174. Aorta: Normal caliber. CORONARY ARTERIES: Coronary artery calcification severe throughout. Heart: Normal heart size. Small pericardial effusion. Pulmonary artery: Normal. Mediastinal nodes: No lymphadenopathy. Other chest and abdominal findings: No axillary lymphadenopathy. The visualized upper abdomen shows no gross abnormality. Degenerative change throughout the spine. CT/Low Dose CT Lung Screening IMPRESSION: Multiple pulmonary nodules are noted, some of which are unchanged, but there are new nodules in the left lower lobe measuring up to 0.5 cm. Lung-RADS category 3 - Continue screening with LDCT in 6 months. IMPORTANT NOTES FOR USE: ACR Lung-RADS Version 1.1 Assessment Categories Release Date: 2018 Category: Coded 0-4 bases on nodule(s) with highest degree of suspicion. Negative screen is defined as categories 1 and 2; a positive screen is defined as categories 3 and 4. Category 3 and 4A nodules that are unchanged on interval CT should be coded as category 2, and individuals returned to screening in 12 months. Category 4X: Category 3 or 4 nodules with additional imaging findings that increase the suspicion of lung cancer, such as spiculation, GGN that doubles in size in 1 year, enlarged lymph notes, etc. Category Modifiers: S (significant finding unrelated to lung cancer) Electronically Signed: Josiah Cheung MD at 22:56 EDT Reading Location ID and State: [facility] / [place] Tel , Service support ,
== END | disposition home or self-care (01) ==
LOC: CT 13:25
PROVIDERS: PCP Family Medicine; Referring Provider Internal Medicine Critical Care Medicine; Visit Provider Internal Medicine Critical Care Medicine
DX: Z12.2 Encounter for screening for malignant neoplasm of respiratory organs (principal); F17.210 Nicotine dependence, cigarettes, uncomplicated
CPT/HCPCS: 71271

== ENCOUNTER → 2023-08-13 | Outpatient (CLI) | payer MEDICARE, MEDICAID, SELFPAY ==
[2023-08-13 13:14] VITALS: PULSE 56; PULSE 58; PULSE 73; PULSE 74; PULSE 75; PULSE 76; PULSE 78; PULSE 82; O2SAT 90; O2SAT 91; O2SAT 93; O2SAT 94; O2SAT 95; O2SAT 96; O2SAT 97
--- NOTE | 2023-08-14 08:06 | PCM.PSN.6M ---
PSN 6 Minute Walk Test 6 Minute Walk Test 6 Minute Walk Test: 6 Minute Walk Test PSN:6-Minute Walk Test Start: 08/13/23 13:14 Freq: Status: Active Protocol: RESP.6MINW Document 08/13/23 13:14 VANITA (Rec: 08/13/23 13:16 VANITA [id number]) 6 Minute Walk Test Date Performed 08/13/23 Time Performed 12:30 Height 6 ft Weight: 140 lb Weight in Pounds 140.[address]: Sammy Stewart Assistive device used: None Pre-test Oxygen Delivery Method Room Air Pulse Ox 97 Pulse Rate (60-100) 56 L Dyspnea Nasir Scale (0-10) 0 Exertion Nasir Scale (6-20) 6 1st minute Oxygen Delivery Method Room Air Pulse Ox 96 Pulse Rate (60-100) 82 2nd minute Oxygen Delivery Method Room Air Pulse Ox 95 Pulse Rate (60-100) 78 3rd minute Oxygen Delivery Method Room Air Pulse Ox 93 Pulse Rate (60-100) 74 4th minute Oxygen Delivery Method Room Air Pulse Ox 91 Pulse Rate (60-100) 76 5th minute Oxygen Delivery Method Room Air Pulse Ox 90 Pulse Rate (60-100) 73 6th minute Oxygen Delivery Method Room Air Pulse Ox 90 Pulse Rate (60-100) 75 Dyspnea Nasir Scale (0-10) 1 Exertion Nasir Scale (6-20) 13 Post-test Oxygen Delivery Method Room Air Pulse Ox 94 Pulse Rate (60-100) 58 L Full Laps Walked 11 Partial Lap, Number of Tiles Walked 37 Total Distance Walked (ft) 686 Interpretation Interpretation: The patient ambulated 686 feet over the course of 6 minutes beginning on room air without assistive devices. Pretesting oxygen saturation was noted to be 97% on room air. With ambulation, the frida oxygen saturation was 90%. This represents a significant exertional oxygen desaturation, consistent with a pulmonary limitation to exercise tolerance. Recommendations Recommendations: There is no indication for the use of supplemental oxygen at this time. However, close interval follow-up was recommended, given the degree of oxygen desaturation noted during this study.
== END | disposition home or self-care (01) ==
LOC: PSN 12:16
PROVIDERS: PCP Family Medicine; Referring Provider Internal Medicine Critical Care Medicine; Visit Provider Internal Medicine Critical Care Medicine
DX: J44.9 Chronic obstructive pulmonary disease, unspecified (principal)
CPT/HCPCS: 94618

== ENCOUNTER → 2023-08-27 | Outpatient (CLI) | payer MEDICARE, MEDICAID, SELFPAY | END | disposition home or self-care (01) | LOC: SL 16:53 | PROVIDERS: PCP Family Medicine; Referring Provider Internal Medicine Critical Care Medicine; Visit Provider Internal Medicine Critical Care Medicine | DX: J44.9 Chronic obstructive pulmonary disease, unspecified (principal) | CPT/HCPCS: 94762; 95806 ==

== ENCOUNTER 2023-10-09 09:15 | Day surgery (SDC) | payer MEDICARE, MEDICAID, SELFPAY ==
[2023-10-09] VITALS (7 sets, daily range): BP systolic 77–115; BP diastolic 54–70; PULSE 60–64; RESP 12–16; TEMP 36.3–36.9; O2SAT 90–100; BMI 17.6
--- NOTE | 2023-10-09 10:15 | SUR.PREOP ---
I WENT AHEAD AND HAD PATIENT DO HIS HOME INHALER X2. I MADE DR. CAM AWARE AND HE WAS OK WITH THIS. PATIENT ALSO IS HAVING A STRESS TEST TOMORROW AND DR. CAM IS AWARE.
[2023-10-09] MEDS: Lactated Ringers 1,000 ML 15 ML IV (10:17)
--- NOTE | 2023-10-09 10:30 | HP.PCM_ITS ---
History and Physical Date of Admission: 10/09/23 Intake Vital Signs 09/13/2310:54 09/26/2314:48 Height 6 ft 6 ft Weight: 140 lb 137 lb BMI 19.0 18.6 BP 120/62 116/49 L Blood Pressure Location Lt brachial Rt radial Position Sitting Sitting Respiration 16 17 Pulse 64 59 L Pulse Source Monitor Monitor Temp 97.7 F L 97.1 F L Temp Source Temporal Temporal Intake Visit Reasons: SELF REFERRED - DIARRHEA AND LOSING WEIGHT Chief Complaint: diarrhea, losing wt Is patient in pain?: No Allergies aspirin Allergy (Severe, Verified 09/13/23 10:53) bleeding Medications multivitamin 1 tab PO DAILY supplement 07/01/21 [History Confirmed 09/26/23] pantoprazole 40 mg tablet,delayed release 40 mg PO QAM #90 tabs 10/29/22 [Rx Confirmed 09/26/23] glucosamine-chondroitin 250 mg-200 mg tablet (Osteo Bi-Flex) See Rx Instructions PO .COMPLEX 01/12/23 [History Confirmed 09/26/23] pravastatin 40 mg tablet 40 mg PO QHS #90 tabs 03/13/23 [Rx Confirmed 09/26/23] atenolol 50 mg tablet 50 mg PO DAILY #90 tabs 03/26/23 [Rx Confirmed 09/26/23] fluticasone fur. 200 mcg-umeclid 62.5 mcg-vilant 25 mcg inhalat.powder (Trelegy Ellipta) 1 inh inhalation DAILY #60 ea 05/20/23 [Rx Confirmed 09/26/23] albuterol sulfate 90 mcg/actuation aerosol inhaler (Ventolin HFA) 2 puff inhalation Q6H #8.5 grams 06/14/23 [Rx Confirmed 09/26/23] trazodone 100 mg tablet 100 mg PO QHS #90 tabs 07/23/23 [Rx Confirmed 09/26/23] docusate sodium 100 mg capsule (Colace) 100 mg PO DAILY Constipation 08/01/23 [History Confirmed 09/26/23] ipratropium 0.5 mg-albuterol 3 mg (2.5 mg base)/3 mL nebulization soln 3 ml inhalation Q4H PRN shortness of breath or wheezing #180 mL 08/01/23 [Rx Confirmed 09/26/23] fluticasone propionate 50 mcg/actuation nasal spray,suspension 2 spray intranasal DAILY #16 grams 08/20/23 [Rx Confirmed 09/26/23] meloxicam 15 mg tablet 15 mg PO DAILY .pain #30 tabs 08/27/23 [Rx Confirmed 09/26/23] lisinopril 20 mg tablet 20 mg PO DAILY #90 tabs 09/17/23 [Rx Confirmed 09/26/23] hydrocodone 10 mg-acetaminophen 325 mg tablet 1 tab PO Q4H 1 month #180 tabs 09/23/23 [Rx Confirmed 09/26/23] PFSH Medical History Arthritis Chronic pain Community acquired pneumonia Depression GERD (gastroesophageal reflux disease) History of stomach ulcers Hyperlipidemia Hypertension IBS (irritable bowel syndrome) Kidney stones Neuropathy Overdose Pneumonia Severe protein-calorie malnutrition Smoker Syncope Surgical History History of endoscopy History of thoracic surgery Family History Mother Myocardial infarction, Onset Age: 49 DepressionFather Hypertension CVA (cerebral vascular accident), Onset Age: 49Sister Thyroid disorderUncle ulcers Social History household members: significant other Smoking Status: Former smoker quit date: 07/14/21 alcohol intake: never substance use type: does not use what type of physical activity do you participate in: other details: yard work, house work HPI HPI HPI: Patient is a 73-year-old male here with inadvertent weight loss and left lower quadrant pain. The patient reports his last colonoscopy was almost 10 years ago. He has had history of peptic ulcer disease but he is on a PPI. He reports he occasionally has left lower quadrant pain. There is no causative factors that he can think of. He denies constipation but he does report that he has been having diarrhea. ROS General General: Yes weight change, appetite and fatigue; No colon cancer, breast cancer or weakness HEENT HEENT: No difficulty swallowing, eye injury, eye surgery, swollen glands or hoarseness Endo Endocrine: No thyroid disease, diabetes mellitus, thyroid cancer, Hair loss, heat intolerance or cold intolerance Skin Skin: No rash or changing moles Musc Musculoskeletal: Yes back problems and arthritis; No rheumatoid arthritis, gout or joint pain Cardio Cardiovascular: Yes high blood pressure; No murmur, pacemaker, heart disease, atrial fibrillation, heart attack, heart stent, palpitations, shortness of breat with exertion or chest pain Psych Psychiatric: Yes depression and anxiety; No hearing voices Resp Respiratory: Yes shortness of breath, No sleep apnea, No cough, Yes COPD, No as thma, No emphysema and No wheezing Gastro Gastrointestinal: Yes abdominal pain, Yes nausea or vomiting, Yes diarrhea, Yes constipation, No blood in stool, Yes acid reflux, No hemorrhoids, Yes ulcers, No gallbladder problem and No black,tarry stools Tian Hematologic: No blood thinners, No blood disorders, No bleeding, No anemia and No blood clots Neuro Neurologic: No system reviewed and no additional complaints, except as documented, No as per HPI, No abnormal gait, No abnormal hearing, No abnormal movements, No abnormal speech, No behavioral changes, No burning sensations, No confusion, No convulsions, No disequilibrium, No dizziness, No localized weakness, No frequent falls, No headache(s), No lack of coordination, No loss of vision, No memory loss, Yes numbness, No other visual disturbances, No radicular pain, No restless legs, No sensory deficit, No syncope, Yes tingling, No tremor(s), No weakness and No other Exam Const General: cooperative Orientation: alert and oriented x3 [facility] Head: normal to inspection Neck Neck: normal visual inspection and full ROM Chest Chest palpation & inspection: normal inspection of the chest Resp Effort & Inspection: normal respiratory effort Auscultation: clear to auscultation bilaterally Cardio Rate: regular rate Rhythm: regular rhythm GI Inspection: non-distended Palpation: soft and nontender Skin General: no rashes or lesions noted Neuro General: patient alert and patient oriented x3 Extrem General: full ROM Psych Appearance: grossly normal Mental Status: mental status grossly normal Assessment and Plan Assessment and Plan (1) Weight loss: Status: Acute (2) Left lower quadrant pain: Status: Acute Orders: Orders Colonoscopy Today EGD Today Plan The patient has been having inadvertent weight loss for several months. He has not had an appetite and he is not eating and he is having diarrhea. I discussed double endoscopy to evaluate the stomach and the colon. Patient reports he has had copious imaging studies. I explained endoscopy in detail to the patient. I explained the risks including but not limited to stroke or heart attack with anesthesia, perforation of the GI tract, bleeding, infection. I explained that any of these could necessitate further emergency surgery. The patient understands and all questions were answered sufficiently. The patient wishes to proceed with procedure. Robson Moreira MD Pager: [facility] [address] [place] [address], [address] [place] [address] Office: I have examined the patient and the H&P has been reviewed. There are no clinical changes since date of exam.
--- NOTE | 2023-10-09 10:30 | COLBX_PTH ---
PATHOLOGY RESULTS PATIENT: PEDRO ALBRECHT LOC: EN U#:[id number] AGE/SX: 73/M ROOM: RE10/09/[address]: Dr. Robson Moreira MD : 1950 BED: DIS: 10/09/2023 SPEC #: [id number] RECD: 10/10/23 07:28 STATUS: MARCELINO DEIDRA #: [id number] NYASIA: 10/09/23 10:[address]: Robson Moreira DEPT: SURGICAL PATHOLOGY RECD BY: Lea Washington ENTERED: 10/10/23 07:29 SP TYPE: COLON BX OTHR DR: Dr. Miguel Stewart, DO Tissues: Gastric mucous membrane COLON BIOPSY Procedures: Surgery Specimen Level IV HEADER OPERATION: Colonoscopy with biopsy, EGD with biopsy PRE-OP DIAGNOSIS: Weight loss, left lower quadrant pain TISSUE SUBMITTED: A - Antrum biopsy for H. pylori and path, B - Random colon biopsy MICROSCOPIC DIAGNOSIS A. Antrum, biopsy: Mild gastritis. See microscopic description and comment. B. Colon, random biopsy: Fragments of colonic mucosa, no pathologic diagnosis. JAMA:haily 10/11/2023 COMMENT A. The results of immunohistochemistry for Helicobacter pylori will be reported separately ([id number]). MICROSCOPIC DESCRIPTION Slides are reviewed. A. The specimen shows fragments of gastric mucosa with chronic inflammatory cell infiltrates in the lamina propria consisting of lymphocytes and plasma cells, consistent with mild chronic gastritis. GROSS DESCRIPTION A - Received in fixative is one container labeled with the patient's name and designated antrum biopsy. The specimen consists of two irregular fragments of light james soft tissue that in aggregate measure 0.8 x 0.2 x 0.1 cm. The specimen is totally submitted in one cassette. B - Received in fixative is one container labeled with the patient's name and designated random colon biopsy. The specimen consists of multiple irregular fragments of light james soft tissue that in aggregate measure 1.0 x 0.3 x 0.1 cm. The specimen is totally submitted in one cassette. / SJ:haily 10/10/2023 TC:3 CPT: 01091 x2
--- NOTE | 2023-10-09 10:30 | IMM_PTH ---
PATHOLOGY RESULTS PATIENT: PEDRO ALBRECHT LOC: EN U#:[id number] AGE/SX: 73/M ROOM: RE10/09/[address]: Dr. Robson Moreira MD : 1950 BED: DIS: 10/09/2023 SPEC #: [id number] RECD: 10/10/23 09:21 STATUS: MARCELINO REQ #: [id number] NYASIA: 10/09/23 10:[address]: Robson Moreira DEPT: IMMUNOHISTOCHEMISTRY RECD BY: Divya Rojas ENTERED: 10/10/23 09:22 SP TYPE: IMMUNO OTHR DR: Dr. Miguel Stewart, DO Tissues: Stomach, NOS Procedures: H Pylori (initial) PHYSICIAN & INSTITUTION [place] [address] SPECIMEN INFORMATION: Tissue Source: A - Antrum Clinical Info: Weight loss, left lower quadrant pain Specimen Number: [id number] CPT code: 17791 METHODOLOGY: Deparaffinized sections of prefer/formalin-fixed tissue or PAP/DQ stained slides are incubated with monoclonal/polyclonal antibodies/oligonucleotide probes. Localization is made via biotin free immunoperoxidase method. Appropriate controls are performed and reacted as expected. Results on target cell population are indicated in the following table: RESULTS: ANTIBODY / CLONE RESULT Block A H Pylori (polyclonal) negative These tests were developed and their performance characteristics determined by [facility]. They may not have been cleared or approved by the U.S. Food and Drug Administration. The FDA has determined that such clearance or approval is not necessary. The above immunohistochemical/dualISH markers are ordered and reviewed by the Pathologist. INTERPRETATION: A. Antrum, biopsy: Negative for Helicobacter pylori organisms. SJ:haily 10/11/2023
--- NOTE | 2023-10-09 11:24 | OP.CCLET_ITS ---
10/09/2023 Miguel Stewart Re : Upper GI endoscopy procedure for Eligio Mccabe Dear Dr. Stewart This procedure was performed on Monday, October 09, 2023. My impressions and recommendations are as follows: Impressions : - Normal esophagus. - Normal stomach. - Normal examined duodenum. - Gastritis with hemorrhage. Biopsied. Recommendations : - Await pathology results. - Discharge patient to home. - Resume previous diet. - Continue present medications. - Await pathology results. My findings are described in the full procedure note, which is enclosed. If I can be of further assistance, please feel free to contact me at Doctor phone number(s): , Work: . Sincerely, Robson Moreira MD 10/09/2023 11:24:11 AM This report has been signed electronically.
--- NOTE | 2023-10-09 11:24 | OP.EGD_ITS ---
Patient Name: Eligio Mccabe Procedure Date: 10/09/2023 10:07 AM Date of : 1950 Age: 73 Procedure: Upper GI endoscopy Indications: Abdominal pain in the left lower quadrant, Weight loss Providers: Robson Moreira MD Medicines: Monitored Anesthesia Care Patient Profile: This is a 73 year old male. Refer to note in patient chart for documentation of history and physical. Complications: No immediate complications. Estimated blood loss: Minimal. Procedure: Pre-Anesthesia Assessment: - Prior to the procedure, a History and Physical was performed, and patient medications and allergies were reviewed. The patient's tolerance of previous anesthesia was also reviewed. The risks and benefits of the procedure and the sedation options and risks were discussed with the patient. All questions were answered, and informed consent was obtained. Prior Anticoagulants: The patient has taken no anticoagulant or antiplatelet agents. After reviewing the risks and benefits, the patient was deemed in satisfactory condition to undergo the procedure. After obtaining informed consent, the endoscope was passed under direct vision. Throughout the procedure, the patient's blood pressure, pulse, and oxygen saturations were monitored continuously. The gastroscope was introduced through the mouth, and advanced to the third part of duodenum. The upper GI endoscopy was accomplished without difficulty. The patient tolerated the procedure well. Scope In: 10:45:03 AM Scope Out: 10:48:35 AM Total Procedure Duration Time 0 hours 3 minutes 32 seconds Findings: The esophagus was normal. The stomach was normal. The examined duodenum was normal. Scattered moderate inflammation with hemorrhage characterized by adherent blood was found in the stomach. Biopsies were taken with a cold forceps for histology. Impression: - Normal esophagus. - Normal stomach. - Normal examined duodenum. - Gastritis with hemorrhage. Biopsied. Recommendation: - Await pathology results. - Discharge patient to home. - Resume previous diet. - Continue present medications. - Await pathology results. Procedure Code(s): --- Professional --- 40186, Esophagogastroduodenoscopy, flexible, transoral; with biopsy, single or multiple Diagnosis Code(s): --- Professional --- K29.71, Gastritis, unspecified, with bleeding R10.32, Left lower quadrant pain R63.4, Abnormal weight loss CPT copyright 2021 [employer]. All rights reserved. The codes documented in this report are preliminary and upon surgical coder review may be revised to meet current compliance requirements. Robson Moreira MD 10/09/2023 11:24:11 AM This report has been signed electronically. Number of Addenda: 0 Note Initiated On: 10/09/2023 10:07 AM
--- NOTE | 2023-10-09 11:28 | OP.COLON_ITS ---
Patient Name: Eligio Mccabe Procedure Date: 10/09/2023 10:50 AM Date of : 1950 Age: 73 Procedure: Colonoscopy Indications: Abdominal pain in the left lower quadrant, Weight loss Providers: Robson Moreira MD Medicines: Monitored Anesthesia Care Patient Profile: This is a 73 year old male. Refer to note in patient chart for documentation of history and physical. Last Colonoscopy: more than 3 years ago. Complications: No immediate complications. Procedure: Pre-Anesthesia Assessment: - Prior to the procedure, a History and Physical was performed, and patient medications and allergies were reviewed. The patient's tolerance of previous anesthesia was also reviewed. The risks and benefits of the procedure and the sedation options and risks were discussed with the patient. All questions were answered, and informed consent was obtained. Prior Anticoagulants: The patient has taken no anticoagulant or antiplatelet agents. After reviewing the risks and benefits, the patient was deemed in satisfactory condition to undergo the procedure. After I obtained informed consent, the scope was passed under direct vision. Throughout the procedure, the patient's blood pressure, pulse, and oxygen saturations were monitored continuously. The Colonoscope was introduced through the anus and advanced to the cecum, identified by appendiceal orifice and ileocecal valve. The colonoscopy was performed without difficulty. The patient tolerated the procedure well. The quality of the bowel preparation was good. The ileocecal valve, appendiceal orifice, and rectum were photographed. Scope In: 10:51:44 AM Scope Withdrawal Time 0 hours 3 minutes 51 seconds Scope Out: 11:20:10 AM Total Procedure Duration Time 0 hours 28 minutes 26 seconds Findings: The entire examined colon appeared normal on direct and retroflexion views. Biopsies for histology were taken with a cold forceps from the entire colon for evaluation of microscopic colitis. The entire examined colon appeared normal on direct and retroflexion views. Impression: - The entire examined colon is normal on direct and retroflexion views. - No specimens collected. Recommendation: - Discharge patient to home. - Resume previous diet. - Continue present medications. - Await pathology results. - Repeat colonoscopy is not recommended due to current age (66 years or older) for screening purposes. Procedure Code(s): --- Professional --- 61473, Colonoscopy, flexible; with biopsy, single or multiple Diagnosis Code(s): --- Professional --- R10.32, Left lower quadrant pain R63.4, Abnormal weight loss CPT copyright 2021 [employer]. All rights reserved. The codes documented in this report are preliminary and upon early interventionist review may be revised to meet current compliance requirements. Robson Moreira MD 10/09/2023 11:27:37 AM This report has been signed electronically. Number of Addenda: 0 Note Initiated On: 10/09/2023 10:50 AM
--- NOTE | 2023-10-09 11:28 | OP.CCLET_ITS ---
10/09/2023 Miguel Stewart Re : Colonoscopy procedure for Eligio Mccabe Dear Dr. Stewart This procedure was performed on Monday, October 09, 2023. My impressions and recommendations are as follows: Impressions : - The entire examined colon is normal on direct and retroflexion views. - No specimens collected. Recommendations : - Discharge patient to home. - Resume previous diet. - Continue present medications. - Await pathology results. - Repeat colonoscopy is not recommended due to current age (66 years or older) for screening purposes. My findings are described in the full procedure note, which is enclosed. If I can be of further assistance, please feel free to contact me at Doctor phone number(s): , Work: . Sincerely, Robson Moreira MD 10/09/2023 11:27:37 AM This report has been signed electronically.
== END 2023-10-09 12:15 | disposition home or self-care (01) ==
LOC: EN 09:16 → AC 09:18
PROVIDERS: PCP Family Medicine; Referring Provider Surgery; Visit Provider Surgery
PROC: 0DJD8ZZ Inspection of Lower Intestinal Tract, Via Natural or Artificial Opening Endoscopic (ICD-10-PCS; CPT 45378; principal; 2023-10-09 10:25)
DX: K29.71 Gastritis, unspecified, with bleeding (principal); J44.9 Chronic obstructive pulmonary disease, unspecified; R19.7 Diarrhea, unspecified; I10 Essential (primary) hypertension; R10.32 Left lower quadrant pain; R63.4 Abnormal weight loss; K21.9 Gastro-esophageal reflux disease without esophagitis; E78.00 Pure hypercholesterolemia, unspecified; Z79.899 Other long term (current) drug therapy; Z87.891 Personal history of nicotine dependence
CPT/HCPCS: 43239; 45380; 88305; 88342; J7120; J1610; J2405

== ENCOUNTER → 2023-10-10 | Outpatient (CLI) | payer MEDICARE, MEDICAID, SELFPAY ==
--- OUTSIDE RECORDS SUMMARY | 2023-10-10 06:26 | XMS RPT_ITS | CCD ---
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 Name Role Phone SHALINI FERRRAI DO Primary Care Physician SHALINI FERRARI DO Primary Care Unavailable DANIELE RIVAS Admitting Stevenson VASQUES MD, ALLAN Attending Unavailable CAPRICE WILCOX, ALLAN Referring Unavailable Allergies Allergy Classification Reported Allergen(s) Allergy Type Date of Onset Reaction(s) Facility (1 source) Aspirin; Translations: [aspirin] Drug Allergy [facility] Medications Current Medications Medication Drug Class(es) Dates Sig (Normalized) Sig (Original) acetaminophen 325 mg / HYDROcodone bitartrate 5 mg oral tablet (1 source) Opioid Agonist Start: 01-30-2023 End: 02-02-2023 [place] 325- 5 mg oral tablet Dose = 1 tab(s), Oral, BID, PRN PRN Pain, scale 4-10, X 3 day(s), # 5 tab(s), 0 Refill(s), Chronic pain, 68.1 Start Date: 01/30/23 Stop Date: 02/02/23 Status: Ordered 200 actuat albuterol 0.09 mg/actuat dry powder inhaler (1 source) beta2-Adrenergic Agonist Start: 05-19-2021 take 2 puff(s) by inhalation every six hours as needed albuterol 90 mcg/inh inhalation powder 2 puff(s), Inhalation, q6h, PRN as needed, # 1 EA, 0 Refill(s) Start Date: 05/19/21 Status: Ordered B Complex 50 oral tablet (1 source) Start: 01-28-2023 take 1 tablet by mouth once daily B Complex 50 oral tablet Dose = 2 tab(s), Oral, Daily, # 30 tab(s), 0 Refill(s) Start Date: 01/28/23 Status: Ordered docusate sodium 100 mg oral capsule (1 source) Start: 05-30-2021 Colace 100 mg oral capsule Dose : 100 mg = 1 cap(s), Oral, qDay, 0 Refill(s) Start Date: 05/30/21 Status: Ordered meloxicam 7.5 mg oral tablet (2 sources) Nonsteroidal Anti-inflammatory Drug Start: 01-30-2023 Mobic 7.5 mg oral tablet Dose : 15 mg = 2 tab(s), Oral, qDay, 0 Refill(s) Start Date: 01/30/23 Status: Ordered Completed/Discontinued Medications Medication Drug Class(es) Dates Sig (Normalized) Sig (Original) gabapentin 300 mg oral capsule (1 source) Anti-epileptic Agent Start: 01-30-2023 gabapentin 300 mg oral capsule Dose : 300 mg = 1 cap(s), Oral, BID, 0 Refill(s), 68.1 Start Date: 01/30/23 Status: Ordered Problems Problem Classification Problem Date Documented Da te Episodic/Chronic Chronic obstructive pulmonary disease and bronchiectasis (1 source) Chronic obstructive lung disease; Translations: [Chronic obstructive pulmonary disease, unspecified] Onset: 01-29-2023 Chronic Diseases of white blood cells (2 sources) Leukocytosis; Translations: [Elevated white blood cell count, unspecified] Onset: 01-29-2023 Chronic Malaise and fatigue (1 source) Asthenia; Translations: [Weakness] Onset: 01-28-2023 Episodic Other connective tissue disease (1 source) Recurrent falls ; Translations: [Repeated falls] Onset: 01-28-2023 Episodic Other nervous system disorders (1 source) Chronic pain; Translations: [Other chronic pain] Onset: 01-28-2023 Chronic Results Test Name Value Interpretation Reference Range Facil ity Vital Signs Date Time Vital Sign Value Performing Clinician Faci litbobbi 01-30-2023 12:48-0400 Body temperature 98.24 [degF] DANIELE SHEARER [facility] 01-30-2023 12:48-0400 Diastolic Blood Pressure Non-Invasive 67 1 DANIELE SHEARER [facility] 01-30-2023 12:48-0400 Heart rate 70 /min DANIELE VORA HYDROTHERAPIST[employer] INS[employer]ANCE SALES [facility] 01-30-2023 12:48-0400 Reason For Taking VItal Signs DANIELE VORA HYDROTHERAPIST[employer]IFE INSURANCE SALES [facility] 01-30-2023 12:48-0400 Respiratory rate 18 /min DANIELE VORA HYDROTHERAPIST[employer]IFE INS[employer]ANCE SALES [facility] 01-30-2023 12:48-0400 Systolic Blood Pressure Non-Invasive 133 1 DANIELE VORA HYDROTHERAPIST[employer]IFE INS[employer]ANCE SALES [facility] 01-30-2023 06:40-0400 Body temperature 98.24 [degF] DANIELE VORA HYDROTHERAPIST[employer]IFE INS[employer]ANCE SALES [facility] 01-30-2023 06:40-0400 Diastolic Blood Pressure Non-Invasive 72 1 DANIELE VORA HYDROTHERAPIST-[employer]IFE INS[employer]ANCE SALES [facility] 01-30-2023 06:40-0400 Heart rate 71 /min DANIELE VORA HYDROTHERAPIST-[employer]IFE INS[employer]ANCE SALES [facility] 01-30-2023 06:40-0400 Reason For Taking VItal Signs DANIELE VORA HYDROTHERAPIST[employer]IFE INSURANCE SALES [facility] 01-30-2023 06:40-0400 Respiratory rate 18 /min DANIELE VORA HYDROTHERAPIST[employer]IFE INS[employer]ANCE SALES [facility] 01-30-2023 06:40-0400 Systolic Blood Pressure Non-Invasive 145 1 DANIELE VORA HYDROTHERAPIST[employer]IFE INS[employer]ANCE SALES [facility] 01-30-2023 04:20-0400 Body temperature 98.24 [degF] DANIELE VORA HYDROTHERAPIST[employer]IFE INS[employer]ANCE SALES [facility] 01-30-2023 04:20-0400 Diastolic Blood Pressure Non-Invasive 76 1 DANIELE VORA HYDROTHERAPIST[employer] INS[employer]ANCE SALES [facility] 01-30-2023 04:20-0400 Heart rate 74 /min DANIELE VORA HYDROTHERAPIST[employer] INS[employer]ANCE SALES [facility] 01-30-2023 04:20-0400 Reason For Taking VItal Signs DANIELE VORA HYDROTHERAPIST[employer]IFE INSURANCE SALES [facility] 01-30-2023 04:20-0400 Respiratory rate 18 /min DANIELE VORA HYDROTHERAPIST[employer]IFE INS[employer]ANCE SALES [facility] 01-30-2023 04:20-0400 Systolic Blood Pressure Non-Invasive 129 1 DANIELE CORNEJON HYDROTHERAPIST-[employer]IFE INSURANCE SALES [facility] 01-30-2023 00:08-0400 Heart rate 70 /min DANIELE CORNEJON HYDROTHERAPIST-[employer]IFE INS[employer]ANCE SALES [facility] 01-29-2023 19:24-0400 Heart rate 66 /min DANIELEGUMARO CORNEJON HYDROTHERAPIST-LIFE INSURANCE SALES [facility] 01-29-2023 16:21-0400 Heart rate 60 /min DANIELE CORNEJON HYDROTHERAPIST[employer]IFE INS[employer]ANCE SALES [facility] 01-29-2023 06:45-0400 Heart rate 65 /min DANIELE CORNEJON HYDROTHERAPIST-[employer]IFE INS[employer]ANCE SALES [facility] 01-28-2023 18:02-0400 Body height 185.4 cm DANIELE VORA HYDROTHERAPIST-[employer]IFE INSURANCE SALES [facility] 01-28-2023 18:02-0400 Body weight 68.1 kg DANIELE JANESHILPA HYDROTHERAPIST-[employer]IFE INSURANCE SALES [facility] 01-28-2023 18:02-0400 Body weight 19.81 kg/m2 DANIELE LARASHILPA HYDROTHERAPIST-LIFE INSURANCE SALES [facility] Encounters Encounter Date Encounter Type Care Provider Facility Start: 01-28-2023 End: 01-30-2023 ambulatory SHALINI FERRARI Facility:B Start: 01-28-2023 End: 01-30-2023 Observation DANIELE VORA HYDROTHERAPIST[employer]IFE INSURANCE SALES [facility] Procedures Date Procedure Procedure Detail Performing Clinician Empyema (disorder) DANIELE HAYWOOD HYDROTHERAPIST-LIFE INSURANCE SALES Immunizations Immunization Date Immunization Notes Care Provider Fa [facility] 10-25-2021 pneumococcal polysaccharide vaccine, 23 valent DANIELE VORA HYDROTHERAPIST-[employer]IFE INS[employer]ANCE SALES [facility] 10-13-2021 zoster vaccine recombinant DANIELE JANESHILPA HYDROTHERAPIST-[employer]IFE INSURANCE SALES [facility] 09-14-2021 SARS-CoV-2 mRNA (tozinameran) vaccine DANIELE JANESHILPA HYDROTHERAPIST-LIFE INSURANCE SALES [facility] 08-09-2021 zoster vaccine recombinant DANIELE JANESHILPA HYDROTHERAPIST[employer]IFE INSURANCE SALES [facility] 01-13-2021 SARS-CoV-2 mRNA (tozinameran) vaccine DANIELE JANESHILPA HYDROTHERAPIST-[employer]IFE INSURANCE SALES [facility] 12-23-2020 SARS-CoV-2 mRNA (tozinameran) vaccine DANIELE JANESHILPA HYDROTHERAPIST-LIFE INSURANCE SALES [facility] Payers Date Payer Category Payer Medicaid [id number] 2021 Medicare [id number] 1950 Unknown [id number] Social History Date Type Detail Facility Start: 05-19-2021 Tobacco smoking status Smokes tobacco daily (finding) [facility] Sex Assigned At Male [facility] Functional Status Date Assessment Result Facility 01-30-2023 Functional Status Room check performed [facility] 01-30-2023 Functional Status 20 [facility] 01-29-2023 Functional Status Dinner Percent 75 [facility] 01-29-2023 Functional Status Front wheeled walker [facility] 01-29-2023 Functional Status Lunch Percent 75 [facility] 01-29-2023 Functional Status Supervised [facility] 01-29-2023 Functional Status Multilevel home [facility] 01-28-2023 Functional Status Sensory Deficits None A [facility] 01-28-2023 Functional Status Minimum assistance [facility] Mental Status Date Assessment Result Facility 01-30-2023 Mental Status Orientation Not oriented to situation [facility] 01-30-2023 Mental Status [facility] 01-30-2023 Mental Status [facility] 01-28-2023 Mental Status Orientation Asse ssment Not oriented to place [facility] Clinical Notes 01-28-2023 to 02-02-2023 Note Date & Type Note Facility 02-02-2023 Note . MICRO - Microbiology PROCEDURE: Blood Culture (bacterial) [*1] SOURCE: Blood BODY SITE: COLLECTED DATE/TIME: 01/28/2023 15:16 EDT RECEIVED DATE/TIME: 01/28/2023 20:34 EDT START DATE/TIME: 01/28/2023 20:34 EDT FREE TEXT SOURCE: FINAL REPORTS Final Report [] Verified Date/Time/Personnel: 02/02/2023 20:59 EDT Blood Culture: No Growth at 5 days. PRELIMINARY REPORTS Preliminary Report [] Verified Date/Time/Personnel: 01/28/2023 21:59 EDT Culture has been received in lab and is no growth to date. Routine cultures are held for 5 days. Performing Locations *1: This test was performed at: [address], [facility] ([place]) 02-02-2023 Note . MICRO - Microbiology PROCEDURE: Blood Culture (bacterial) [*1] SOURCE: Blood BODY SITE: COLLECTED DATE/TIME: 01/28/2023 15:16 EDT RECEIVED DATE/TIME: 01/28/2023 20:34 EDT START DATE/TIME: 01/28/2023 20:34 EDT FREE TEXT SOURCE: FINAL REPORTS Final Report [] Verified Date/Time/Personnel: 02/02/2023 20:59 EDT Blood Culture: No Growth at 5 days. PRELIMINARY REPORTS Preliminary Report [] Verified Date/Time/Personnel: 01/28/2023 21:59 EDT Culture has been received in lab and is no growth to date. Routine cultures are held for 5 days. Performing Locations *1: This test was performed at: [address], [address] [place] [address] ([place]) 01-30-2023 Nurse Discharge summary Discharged to [facility]. Escorted to the exit via w/c per BLAYNE Toussaint. Transported by Significant other, Judy. Left at 1425. [facility] 01-30-2023 Note Discharge Instructions Thank you for allowing [facility] to assist you with your healthcare needs. The following is important discharge information regarding your hospital visit. Your Care Team SHALINI FERRARI DO DANIELE VORA APRN-SOLE Your Diagnosis Weakness Falls Chronic pain Leukocytosis COPD (chronic obstructive pulmonary disease) Altered mental status What to do next Follow Up Appointments Follow Up with SHALINI FERRARI DO When Within 3-5 days Why: Please schedule follow up with PCP after d/c. Where: [facility] [address] [place] [address] [place] [address] [phone] Follow Up with Go to emergency room if symptoms worsen When Within 2-4 days Follow Up with SHALINI FERRARI DO When Within 2-4 days Where: [facility] [address] [facility] [place] [address]- [phone] The Following Activity and Diet Have Been Ordered for You Transfer of Care Activity - Ordered -- As instructed by therapy, 01/30/23 8:11:00 EDT Transfer of Care Diet - Ordered -- Type of Diet: Regular Diet, 01/30/23 8:11:00 EDT The Following Equipment Has Been Ordered for You Home Equipment - None Discharge Home Equipment Transfer of Care Wound Care - Ordered -- 01/30/23 8:11:00 EDT The Following Treatments Have Been Ordered for You Discharge Labs No qualifying data available. Discharge Radiology No qualifying data available. Other Therapies Transfer of Care OT - Ordered -- Reason for therapy: weakness, 01/30/23 8:11:00 EDT Transfer of Care PT - Ordered -- Reason for therapy: Weakness, 01/30/23 8:11:00 EDT Post Acute Orders Transfer of Care Admission Level of Care - Ordered -- Level of Care SNF, 01/30/23 8:11:07 EDT Transfer of Care Code Status - Ordered -- Full Code, Constant Order Transfer of Care Orders Electronically Signed By - Ordered -- 01/30/23 8:11:00 EDT, DANIELE VORA APRN-SOLE Transfer of Care Prognosis - Ordered -- Fair, Patient Aware: Yes Transfer of Care Rehab Potential - Ordered -- Rehab potential fair, 01/30/23 8:11:07 EDT Allergies aspirin Immunizations This Visit Not Given Vaccine Commentstetanus/diphth/pertuss (Tdap) adult/adol Patient Refuses Medications Please ask your primary doctor or pharmacist before taking any other medication not listed, including over the counter drugs, herbal medications, vitamins and or supplements as they may interact with your home medications. What How Much When Why Instructions Last Dose Changed acetaminophen-hydrocodone ([place] 325- 5 mg oral tablet) 1 tab(s) by mouth Two (2) times a day as needed for Pain, scale 4-10 Chronic pain Duration: 3 Days Printed Prescription 01/30 9:54AM Changed gabapentin (gabapentin 300 mg oral capsule) 1 cap by mouth Two (2) times a day 01/30 9:54AM Changed meloxicam (meloxicam 15 mg oral tablet) 1 tab(s) by mouth Once a day 01/30 9:54AM Unchanged albuterol (albuterol 90 mcg/ inh inhalation powder) 2 puff(s) by inhalation Every 6 hours as needed for as needed None Unchanged chondroitin/ glucosamine/ methylsulfonylmethane (Osteo Bi-Flex Advanced oral tablet) 1 tab(s) by mouth Every day None Unchanged docusate (Colace 100 mg oral capsule) 1 cap by mouth Once a day None Unchanged multivitamin (B Complex 50 oral tablet) 2 tab(s) by mouth Every day None Unchanged multivitamin (Multivitamin) 1 tab(s) by mouth Every day None Unchanged pantoprazole (pantoprazole 40 mg oral enteric coated tablet) 1 tab(s) by mouth Once a day before a meal 01/30 6AM Unchanged pravastatin (pravastatin 40 mg oral tablet) 1 tab(s) by mouth Daily at bedtime 01/29 9PM Unchanged traZODone (traZODone 100 mg oral tablet) 1 tab(s) by mouth Daily at bedtime 01/29 9PM Unchanged venlafaxine (venlafaxine 150 mg oral capsule, extended release) 1 cap by mouth Every day 01/30 9:54AM What How Much When Comments Stop Taking atenolol (atenolol 50 mg oral tablet) 1 tab(s) by mouth Once a day Stop Taking cyclobenzaprine (cyclobenzaprine 5 mg oral tablet) 1 tab(s) by mouth Three (3) times a day Stop Taking fluticasone nasal (fluticasone 50 mcg/ inh NASAL spray) 2 spray(s) each nostril Once a day (in the morning) Stop Taking polyethylene glycol 3350 (Miralax Powder Packet) by mouth Once a day as needed for Constipation Please take this list to your next doctor s visit. Bring all medications you take, including over the counter medications, herbals and other supplements with you to your doctor s visit. Patients and families are reminded to discard old lists and to update any records with all medication providers or retail pharmacies. Education Materials Fall with Uncertain Cause You have had a fall today. But the cause of your fall is not certain. Falls can happen due to slipping, tripping or losing your balance. A fall can also happen from a fainting spell or seizure. While a fall can happen for a simple reason (tripping over something), falls in elderly people are often caused by a combination of things: Age-related decline in function with worsening balance, stability, vision, and muscle strength Chronic illness, such as heart arrhythmias, heart valve disease, vascular disease, COPD, diabetes, strokes, or arthritis Shoes that do not give much support and make you prone to slip or slide Anemia or low blood pressure Effects or side effects of medicines Dehydration or recent use of alcohol Environmental hazards, such as uneven or slippery ground, unfamiliar place, obstacles, uneven surfaces, or slippery ground Situational factors (related to the activity being done, such as rushing to the bathroom) Because the cause of your fall today is not certain, it is possible that a fainting spell or seizure was the cause. This means that it could happen again, without warning. If you fall again, without a cause, then you should return to this facility promptly to have further tests. Otherwise, follow up with your healthcare provider as explained below. It is normal to feel sore and tight in your muscles and back the next day, and not just the muscles you initially injured. Remember, all the parts of your body are connected, so while initially one area hurts, the next day another may hurt. Also, when you injure yourself, it causes inflammation, which then causes the muscles to tighten up and hurt more. After the initial worsening, it should gradually improve over the next few days. However, more severe pain should be reported. Even without a definite head injury, you can still get a concussion. Concussions and even bleeding can still happen, especially if you have had a recent injury or take blood thinner medicine. It is not unusual to have a mild headache and feel tired and even nauseous or dizzy. Home care Rest today and resume your normal activities as soon as you are feeling back to normal. It is best to remain with someone who can check on you for the next 24 hours to watch for another episode of falling. If you were injured during the fall, follow the advice from your healthcare provider regarding care of your injury. If you become lightheaded or dizzy, lie down right away or sit and lean forward with your head down. As a precaution, don't drive a car or operate dangerous equipment, don't take a bath alone (use a shower instead), and don't swim alone until you see your healthcare provider. A condition causing fainting or seizures must be ruled out before resuming these activities. You may use acetaminophen or ibuprofen to control pain, unless another pain medicine was prescribed. If you have chronic liver or kidney disease or ever had a stomach ulcer or gastrointestinal bleeding, talk with your healthcare provider before using these medicines. Keep your appointments for any further testing that may have been scheduled for you. Follow-up care Follow up with your healthcare provider, or as advised. If X-rays or CT scan were done, you will be notified if there is a change in the reading, especially if it affects treatment. Call 911 Call 911 if any of these happen: Trouble breathing Confused or difficulty arousing Fainting or loss of consciousness Rapid or very slow heart rate Seizure Difficulty with speech or vision, weakness of an arm or leg Difficulty walking or talking, loss of balance, numbness or weakness in one side of your body, facial droop When to seek medical advice Call your healthcare provider right away if any of these happen: Another unexplained fall Dizziness Severe headache Nausea and vomiting Blood in vomit, stools (black or red color) [id number] [employer]. [address] [place] [address], [place] [address]. All rights reserved. This information is not intended as a substitute for professional medical care. Always follow your healthcare professional's instructions. Additional Information VACCINATE! IT SAVES LIVES! Members of the community who have not yet received the COVID-19 vaccine and would like to receive it can visit one of [facility] vaccine clinics. There are many vaccine clinic locations within the [facility]. For locations and available times, please visit [email or web address] .[email or web address] It is important to note that some COVID mobile vaccine clinics are held outdoors and may be canceled in rainy or stormy conditions. To learn more about pediatric vaccinations (ages 5-11), we invite you to visit the [facility] webpage. [email or web address] [email or web address] -[email or web address]-Questions.[email or web address] To learn more about the COVID-19 vaccine, we invite you to visit the CDC website for a list of frequently asked questions. https://www.cdc.gov/coronavirus/201 9-ncov/vaccines/faq.html [facility] Patient Portal Access Instructions: Stay connected with your healthcare team and access your personal medical information anytime with the [facility] Patient Portal.If you would like a full copy of your medical records, please contact the [facility] Medical Records Department, Saturday through Saturday between 8a.m. and 4:30p.m. Please follow the directions below to access the portal: 1.Access the email account you provided upon registration to the [facility].2.Look for an invitation email from [facility].3.Open the email and access the invitation link: Accept Invitation to [facility]4.Fill in the required cuellar to create your account. Sign into [email or web address] with your username and password that you created in the above steps to stay up to date. You can then view a summary of results, a summary of your visits, and the ability to download your summaries to your computer or send the information securely to a physician. Remember that your healthcare information is confidential, so carefully consider who you will allow to register on the [facility] Patient Portal for access to your information. You can also access the [facility] Patient Portal on the [employer] а[employer]рей. Simply click on Health Records under Health Data and then click on the Needl logo. HOW TO SAFELY DISPOSE OF PRESCRIPTION MEDICATIONS Please use one of the following methods to safely dispose of your unused medications. 1.Use a drug disposal kit: the drug disposal pouch allows you to safely discard your old and unused drugs. Ask your nurse to give you one when you are discharged.2.Visit a local take-back location: Many local pharmacies and police departments have programs that collect old and unwanted prescription drugs. Call your local pharmacy or go to http://Madefire.Zopa/2H0Ka6i to find one close to you.3.Make use of household items: Use cat litter or old coffee grounds to dispose medications if other options are not available. Mix your drugs with these household products, seal them in an airtight container and throw it into the garbage. Call [facility]: [phone] to be sure your drugs can be disposed of in this way. Some medicines may require a different approach.4.Never flush your medications down the toilet. IF YOU HAVE BEEN PRESCRIBED AN OPIOID FOR PAIN If you have been prescribed an opioid (such as hydrocodone, oxycodone or morphine), it is critical to understand the possible side effects and risks of opioid pain medications. Even when taken as directed, opioids can have several side effects including: Tolerance, meaning you might need to take more of a medication for the same pain relief. Nausea, vomiting and/or constipation. Sleepiness, dizziness, dry mouth, confusion, depression or itching. Physical dependence, meaning you have withdrawal symptoms when a medication is stopped, can develop within a few days. KNOW YOUR RESPONSIBILITIES It is important to know exactly how much and how often to take the opioid pain medications you are prescribed. Never take opioids in higher amounts or more often than prescribed. Do not combine opioids with alcohol or other drugs that cause drowsiness, such as benzodiazepines, also known as benzos, including diazepam and alprazolam, muscle relaxants or sleep aids. Never sell or share prescription opioids. This is illegal. Store opioids in a secure place and out of reach of others (including children, family, friends and visitors). The last page of this document has been signed and retained as a CHART COPY. Signatures Patient Education Materials Fall, Uncertain Cause Medication Leaflets My discharge plan and instructions have been reviewed and explained to me and IAMBROCIO DENNIS L understand my current condition and have read and understand these discharge instructions. I have received a written copy of the plan/instructions. If I have questions, I am aware that I should contact my doctor. 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 MICRO - Microbiology PROCEDURE: Urine Culture [*1] SOURCE: Urine BODY SITE: COLLECTED DATE/TIME: 01/28/2023 15:13 EDT RECEIVED DATE/TIME: 01/28/2023 20:37 EDT START DATE/TIME: 01/28/2023 20:37 EDT FREE TEXT SOURCE: FINAL REPORTS Final Report [] Verified Date/Time/Personnel: 01/30/2023 07:50 EDT No growth at 48 hours. PRELIMINARY REPORTS Preliminary Report [] Verified Date/Time/Personnel: 01/29/2023 09:12 EDT No growth to date Performing Locations *1: This test was performed at: [facility], [address] [place] [address], [facility] , [facility] ([place]) 01-29-2023 Note Date of Service 01/29/2023 Chief Complaint Weakness and falls Subjective 72-year-old male with past medical history significant for arthritis, chronic pain, depression, GERD, gastric ulcers, IBS, kidney stones, neuropathy, tobacco use. Patient presented to [facility] emergency department on 01/28/2023 with increased falls and weakness. Patient was discharged from [facility] on 01/16/2023 for gastroenteritis and COVID-19 pneumonia with superimposed bacterial infection. He was discharged on Levaquin. In the emergency department patient was bradycardic and hypotensive. Hypotension did improve after receiving IV fluids. Adequate oxygen saturations on room air. Mild renal insufficiency with creatinine of 1.34. CT cervical spine, CT brain, x-ray pelvis negative. Chest x-ray shows mild left consolidation and/or atelectasis. Mildly increased relative to the comparison. Patient was given ceftriaxone and azithromycin in the emergency department. Decision was made to admit for further evaluation. On exam patient denies any fever or chills. Admits fatigue. No headaches. Admits dizziness at times. No chest pain or palpitations. Denies cough, dyspnea. No nausea or vomiting. No dysuria. Admits weakness. No paresthesias. Objective Vitals and Measurements T: 36.9 C (Oral) TMIN: 36.5 C (Oral) TMAX: 37.1 C (Oral) HR: 73(Monitored) RR: 18 BP: 106/61 SpO2: 92% HT: 185.4 cm WT: 74.8 kg BMI: 19.81 Intake and Output 7AM Yesterday to 7AM Today Intake and Output (Last 24 hours) Intake Output Urine Voided 900.00 Stool Count 1.00 Diaper Count 1.00 Total Summary Total Intake 0.00 Total Output 900.00 Fluid Balance -900.00 Physical Exam GEN: Appears chronically ill, malnourished. CHEST: Normal S1 and S2. Rhythm is regular. Clear to auscultation, without rales, rhonchi, wheezing. ABD: Positive bowel sounds x 4 quads. Soft, nondistended, nontender. EXT: No significant deformity or joint abnormality. No edema. Peripheral pulses intact. NEURO: Sensation grossly intact SKIN: Skin color normal PSYCH: The mental examination revealed the patient was alert and oriented x 4 in the afternoon. In the morning he was quite confused and incoherent at times. Weight Current Weight Dosing Weight: 68.1 kg (01/28/23) Current Weight: 74.8 kg (01/29/23) Medications Medications (16) Active Scheduled: (7) atorvastatin 10 mg tablet 10 mg 1 tab(s), Oral, qHS enoxaparin 40 mg/ 0.4mL syringe 40 mg 0.4 mL, Subcutaneous, qDay gabapentin 300 mg Capsule 300 mg 1 cap(s), Oral, BID meloxicam 7.5 mg tablet 15 mg 2 tab(s), Oral, qDay pantoprazole 20 mg EC tablet 40 mg 2 tab(s), Oral, qDayAC traZODONE 50 mg Tablet 100 mg 2 tab(s), Oral, qHS venlafaxine 75 mg ER capsule 150 mg 2 cap(s), Oral, Daily Continuous: (1) Lactated Ringers 1,000 mL 1,000 mL, Intravenous, 100 mL/hr PRN: (8) acetaminophen 325 mg Tablet 650 mg 2 tab(s), Oral, q4h acetaminophen 325 mg Tablet 650 mg 2 tab(s), Oral, q4h acetaminophen-HYDROcodone 325-5 mg tablet 1 tab(s), Oral, QID benzonatate 100 mg Capsule 100 mg 1 cap(s), Oral, TID calcium carbonate 500 mg Chewable 500 mg 1 tab(s), Chewed, TID guaifenesin 100 mg/5 mL 120 mL liquid 200 mg 10 mL, Oral, q4h melatonin 3 mg tablet 6 mg 2 tab(s), Oral, qHS ondansetron 2 mg/ 1 mL 2 mL INJ 4 mg 2 mL, IV Push, q4h Lab Results 01/29 05:26 WBC: 19.2 H Hgb: 9.2 L Hct: 27.3 L Platelet: 346 Glucose Level: 88 Sodium Level: 142 Potassium Level: 4.2 BUN: 16 Creatinine Lvl (s): 1.01 01/28 14:13 WBC: 14.1 H Hgb: 10.7 L Hct: 32.0 L Platelet: 417 H Neutrophil %: 87.7 H Protime: 13.4 PT International Ratio: 1.2 Glucose Level: 88 Sodium Level: 139 Potassium Level: 3.7 BUN: 23 H Creatinine Lvl (s): 1.34 H Imaging Results and Diagnostics XR Chest 2 Views Result Date: January 29, 2023 Verified By: ELMER VAUGHAN MD CLINICAL STATEMENT: IMPRESSION: Findings suggestive of mild bibasilar atelectasis. Chronic interstitial change. CT Head or Brain w/o Contrast Result Date: January 28, 2023 Verified By: LETI RODAS MD CLINICAL STATEMENT: IMPRESSION: Mildly limited by motion; otherwise unremarkable examination. CT Spine Cervical w/o Contrast Result Date: January 28, 2023 Verified By: LETI RODAS MD CLINICAL STATEMENT: IMPRESSION: No acute fracture. XR Chest 1 View Result Date: January 28, 2023 Verified By: LETI RODAS MD CLINICAL STATEMENT: IMPRESSION: Mild left consolidation and or atelectasis. This is mildly increasedrelative the comparison. XR Pelvis 1 or 2 Views Result Date: January 28, 2023 Verified By: LETI RODAS MD CLINICAL STATEMENT: IMPRESSION: No acute fracture is seen. EKG Electrocardiogram [AOH] (EKG [AOH]) - InProcess -- 01/29/23 6:00:00 EDT, 01/29/23 6:00:00 EDT Assessment/Plan 1. Weakness 2. Falls 3. Chronic pain 4. Leukocytosis 5. COPD (chronic obstructive pulmonary disease) Weakness and falls- Pt has had 9 falls in the past week. He states sometimes he is weak and falls sometimes he gets dizzy. Patient is on multiple medications that increases risk for falls including [place] 10/325, cyclobenzaprine, gabapentin. Check orthostatic vital signs. Decrease [place]. Hold cyclobenzaprine. PCPs note was reviewed from 01/24/2023 with plans for dose reductions on medications. patient was hypotensive overnight requiring a fluid bolus. Suspend atenolol. Patient was evaluated by therapy eith recommendations for SNF. He is a very high risk for falls. It was reported to me that POA was looking for placement. It appears that his POA packed close for him for several days. Chronic pain as above. Neuropathy Decrease gabapentin to 300 mg twice daily Leukocytosis White blood cell count increased to 19,000 today. He is afebrile. Lactic acid 0.9. Urinalysis negative for nitrates and leukocyte Estrace. Positive for blood. Denies any dysuria, urgency, frequency. No SPT or CVA tenderness. Blood cultures and Urinalysis show NGTD. Patient was discharged from [facility] for pneumonia. He completed a course of antibiotics. 2 view chest x-ray obtained this morning and shows mild bibasilar atelectasis. Patient has no cough, dyspnea, wheezing. Lungs are clear. No sputum production. No clear source of infection. Patient has not had any steroids recently. Will repeat labs tomorrow and monitor overnight. Altered mental status Per chart review patient has episodes of altered mental status and confusion over the past 6 months. This morning he was very confused during my assessment. When I went to reevaluate in the afternoon he was very clear, oriented, lucid. He was able to share the accurate details of his PCP visit on 01/24/2023 which I was able to review and Clinis[employer]. Specifically he told me about dose reductions of his chronic medications, consideration for dementia, labs being abnormal. DVT prophylaxis: Lovenox Labs, diagnostics, and progress notes reviewed as noted in HPI Code Status: Full code Plan of care discussed with patient. All questions answered. Patient verbalizes understanding is agreeable to plan of care. I attempted to reach out to patient's POA and significant other, Judy. A voicemail was left this morning. I tried an additional 3 times to reach her but her phone goes straight to voicemail. This dictation was performed using voice recognition software and may include grammatical and/or spelling errors. Digitally Signed by DANIELE VORA on 01/29/2023 02:48 PM Digitally Signed by DANIELE VORA [employer]OTHER[employer]IST[employer] on 01/30/2023 07:26 AM [facility] 01-29-2023 Note ORIGINAL EXAMINATION: TWO XRAY VIEWS OF THE CHEST 01/29/2023 5:59 am COMPARISON: None. HISTORY: ORDERING SYSTEM PROVIDED HISTORY: Reason for Exam: PNA vs atelectasis FINDINGS: A lungs appear mildly hyperinflated. Curvilinear opacities are present at the lung bases. No pneumothorax. No large effusion. No focal consolidation. Cardiomediastinal silhouette is normal in appearance. Atherosclerotic calcification of the aorta is noted. IMPRESSION: Findings suggestive of mild bibasilar atelectasis. Chronic interstitial change. Interpreted by: Elmer Vaughan MD Preliminary Report By: Elmer Vaughan MD Electronically signed By Elmer Vaughan MD Dictated Date: 01/29/2023 6:05:50 AM Prelim Date: 01/29/2023 6:12:42 AM Sign Date: 01/29/2023 6:12:42 AM Ordering Provider: [facility] Note ORIGINAL EXAMINATION: TWO XRAY VIEWS OF THE CHEST 01/29/2023 5:59 am COMPARISON: None. HISTORY: ORDERING SYSTEM PROVIDED HISTORY: Reason for Exam: PNA vs atelectasis FINDINGS: A lungs appear mildly hyperinflated. Curvilinear opacities are present at the lung bases. No pneumothorax. No large effusion. No focal consolidation. Cardiomediastinal silhouette is normal in appearance. Atherosclerotic calcification of the aorta is noted. IMPRESSION: Findings suggestive of mild bibasilar atelectasis. Chronic interstitial change. Interpreted by: Elmer Vaughan MD Preliminary Report By: Elmer Vaughan MD Electronically signed By Elmer Vaughan MD Dictated Date: 01/29/2023 6:05:50 AM Prelim Date: 01/29/2023 6:12:42 AM Sign Date: 01/29/2023 6:12:42 AM Ordering Provider[facility] 01-28-2023 Note Date of Service 01/28/2023 Chief Complaint Patient presents for AMS. History of Present Illness 72-year-old male with past medical history significant for arthritis, chronic pain, depression, GERD, gastric ulcers, IBS, kidney stones, neuropathy, tobacco use. Patient presented to [facility] emergency department on 01/28/2023 with increased falls and weakness. Patient was discharged from [facility] on 01/16/2023 for gastroenteritis and COVID-19 pneumonia with superimposed bacterial infection. He was discharged on Levaquin. In the emergency department patient was bradycardic and hypotensive. Hypotension did improve after receiving IV fluids. Adequate oxygen saturations on room air. Mild renal insufficiency with creatinine of 1.34. CT cervical spine, CT brain, x-ray pelvis negative. Chest x-ray shows mild left consolidation and/or atelectasis. Mildly increased relative to the comparison. Patient was given ceftriaxone and azithromycin in the emergency department. Decision was made to admit for further evaluation. On exam patient denies any fever or chills. Admits fatigue. No headaches. Admits dizziness at times. No chest pain or palpitations. Denies cough, dyspnea. No nausea or vomiting. No dysuria. Admits weakness. No paresthesias. Review of Systems See HPI for specific ROS. All other systems reviewed and negative. Physical Exam Vitals and Measurements T: 36.5 C (Oral) HR: 50 RR: 16 BP: 109/85 SpO2: 95% No qualifying data available. GEN: Appears chronically ill, malnourished. EYES: No conjunctival erythema, drainage. EOMI EARS: Hearing grossly intact. NOSE: No nasal discharge. THROAT: Oral cavity and pharynx pink and moist. CHEST: Normal S1 and S2. Rhythm is regular. Clear to auscultation, without rales, rhonchi, wheezing. ABD: Positive bowel sounds x 4 quads. Soft, nondistended, nontender. EXT: No significant deformity or joint abnormality. No edema. Peripheral pulses intact. NEURO: Sensation grossly intact SKIN: Skin color normal PSYCH: The mental examination revealed the patient was alert and oriented x 4 Lab Results 01/28 14:13 WBC: 14.1 H Hgb: 10.7 L Hct: 32.0 L Platelet: 417 H Neutrophil %: 87.7 H Protime: 13.4 PT International Ratio: 1.2 Glucose Level: 88 Sodium Level: 139 Potassium Level: 3.7 BUN: 23 H Creatinine Lvl (s): 1.34 H Imaging Results and Diagnostics CT Head or Brain w/o Contrast Result Date: January 28, 2023 Verified By: LETI RODAS MD CLINICAL STATEMENT: IMPRESSION: Mildly limited by motion; otherwise unremarkable examination. CT Spine Cervical w/o Contrast Result Date: January 28, 2023 Verified By: LETI RODAS MD CLINICAL STATEMENT: IMPRESSION: No acute fracture. XR Chest 1 View Result Date: January 28, 2023 Verified By: LETI RODAS MD CLINICAL STATEMENT: IMPRESSION: Mild left consolidation and or atelectasis. This is mildly increasedrelative the comparison. XR Pelvis 1 or 2 Views Result Date: January 28, 2023 Verified By: LETI RODAS MD CLINICAL STATEMENT: IMPRESSION: No acute fracture is seen. EKG EC01/28/23: Sinus bradycardia Nonspecific intraventricular conduction delay Borderline ST elevation, anterolateral leads Electronic Signature: REGINA STEVENSON DO 01/28/2023 14:27:50 Assessment/Plan 1. Weakness 2. Falls 3. Chronic pain Weakness and falls- Pt has had 9 falls in the past week. He states sometimes he is weak and falls sometimes he gets dizzy. Patient is on multiple medications that increases risk for falls including [place] 10/325, cyclobenzaprine, gabapentin. Additionally he is taking atenolol. Check orthostatic vital signs. Decrease [place]. Hold cyclobenzaprine. Consult PT and OT. Chronic pain as above. Neuropathy consider decreasing gabapentin due to frequent falls. Will monitor. Patient was discharged from [facility] for pneumonia. He completed a course of antibiotics. Chest x-ray shows mild consolidation and/or atelectasis. Patient has no fevers. No oxygen requirements. Lungs are clear. No sputum production or cough. He does have mild leukocytosis with white blood cell count of 14,000. He received ceftriaxone and azithromycin in the emergency department. Hold off on starting any antibiotics at this time. Add incentive spirometer. Will monitor and obtain 2 view chest x-ray tomorrow morning. DVT prophylaxis: Lovenox Labs, diagnostics, and progress notes reviewed as noted in HPI Code Status: Full code Plan of care discussed with patient. All questions answered. Patient verbalizes understanding is agreeable to plan of care. This dictation was performed using voice recognition software and may include grammatical and/or spelling errors. Problem List/Past Medical History Ongoing No qualifying data Historical No qualifying data Procedure/Surgical History No qualifying data available. Medications Home Medications (12) Active acetaminophen-hydrocodone 325 mg-10 mg oral tablet 1 tab(s), PRN, Oral, q6h albuterol 90 mcg/inh inhalation powder 2 puff(s), PRN, Inhalation, q6h atenolol 50 mg oral tablet 50 mg = 1 tab(s), Oral, qDay Colace 100 mg oral capsule 100 mg = 1 cap(s), Oral, TID cyclobenzaprine 5 mg oral tablet 5 mg = 1 tab(s), Oral, TID fluticasone 50 mcg/inh NASAL spray 2 spray(s), Nostril, each, qAM gabapentin 600 mg oral tablet 600 mg = 1 tab(s), Oral, TID Miralax Powder Packet , PRN, Oral, qDay pantoprazole 40 mg oral enteric coated tablet 40 mg = 1 tab(s), Oral, qDayAC pravastatin 40 mg oral tablet 40 mg = 1 tab(s), Oral, qHS traZODone 100 mg oral tablet 100 mg = 1 tab(s), Oral, qHS venlafaxine 150 mg oral capsule, extended release 150 mg = 1 cap(s), Oral, qPM Allergies aspirin Social History Alcohol Use: Current. Type: Liquor. Frequency: 1-2 times per year., 05/19/2021 Home/Environment Living situation: Home/Independent. Lives In: Multilevel home. Current Home Treatments None. Professional Skilled Services or Special Community Resources None. Marital Status: Unmarried., 05/19/2021 Nutrition/Health Type of diet: Regular. Appetite Poor. Eating Difficulties Chewing, Loose teeth., 05/19/2021 Substance Abuse Use: Never., 05/19/2021 Tobacco Nicotine Use: Cigars or pipes daily within last 30 days. Type: Cigars. Number of years: 50. Started at age: 13 Years. Previous treatment: None. Ready to change: No. Smoking Cessation Information Refused smoking cessation information., 05/19/2021 Family History Hypertension: Father. Stroke: Father. Substance abuse: Mother. Immunizations No qualifying data available. Code Status Code Status - Ordered -- 01/28/23 15:32:00 EDT, Full Code, Constant Order Digitally Signed by DANIELE VORA APRN-SOLE on 01/28/2023 05:30 PM [facility] [place] 01-28-2023 Hospital Discharge instructions Patient Education 01/28/2023 14:03:09 Fall, Uncertain Cause Fall with Uncertain Cause You have had a fall today. But the cause of your fall is not certain. Falls can happen due to slipping, tripping or losing your balance. A fall can also happen from a fainting spell or seizure. While a fall can happen for a simple reason (tripping over something), falls in elderly people are often caused by a combination of things: Age-related decline in function with worsening balance, stability, vision, and muscle strength Chronic illness, such as heart arrhythmias, heart valve disease, vascular disease, COPD, diabetes, strokes, or arthritis Shoes that do not give much support and make you prone to slip or slide Anemia or low blood pressure Effects or side effects of medicines Dehydration or recent use of alcohol Environmental hazards, such as uneven or slippery ground, unfamiliar place, obstacles, uneven surfaces, or slippery ground Situational factors (related to the activity being done, such as rushing to the bathroom) Because the cause of your fall today is not certain, it is possible that a fainting spell or seizure was the cause. This means that it could happen again, without warning. If you fall again, without a cause, then you should return to this facility promptly to have further tests. Otherwise, follow up with your healthcare provider as explained below. It is normal to feel sore and tight in your muscles and back the next day, and not just the muscles you initially injured. Remember, all the parts of your body are connected, so while initially one area hurts, the next day another may hurt. Also, when you injure yourself, it causes inflammation, which then causes the muscles to tighten up and hurt more. After the initial worsening, it should gradually improve over the next few days. However, more severe pain should be reported. Even without a definite head injury, you can still get a concussion. Concussions and even bleeding can still happen, especially if you have had a recent injury or take blood thinner medicine. It is not unusual to have a mild headache and feel tired and even nauseous or dizzy. Home care Rest today and resume your normal activities as soon as you are feeling back to normal. It is best to remain with someone who can check on you for the next 24 hours to watch for another episode of falling. If you were injured during the fall, follow the advice from your healthcare provider regarding care of your injury. If you become lightheaded or dizzy, lie down right away or sit and lean forward with your head down. As a precaution, don't drive a car or operate dangerous equipment, don't take a bath alone (use a shower instead), and don't swim alone until you see your healthcare provider. A condition causing fainting or seizures must be ruled out before resuming these activities. You may use acetaminophen or ibuprofen to control pain, unless another pain medicine was prescribed. If you have chronic liver or kidney disease or ever had a stomach ulcer or gastrointestinal bleeding, talk with your healthcare provider before using these medicines. Keep your appointments for any further testing that may have been scheduled for you. Follow-up care Follow up with your healthcare provider, or as advised. If X-rays or CT scan were done, you will be notified if there is a change in the reading, especially if it affects treatment. Call 911 Call 911 if any of these happen: Trouble breathing Confused or difficulty arousing Fainting or loss of consciousness Rapid or very slow heart rate Seizure Difficulty with speech or vision, weakness of an arm or leg Difficulty walking or talking, loss of balance, numbness or weakness in one side of your body, facial droop When to seek medical advice Call your healthcare provider right away if any of these happen: Another unexplained fall Dizziness Severe headache Nausea and vomiting Blood in vomit, stools (black or red color) [id number] [employer]. [address] [place] [address]. All rights reserved. This information is not intended as a substitute for professional medical care. Always follow your healthcare professional's instructions. Follow Up Care 01/28/2023 13:32:30 With:SHALINI FERRARI DO Address: [address] [id number] [phone] When:3-5 days Comments:Please schedule follow up with PCP after d/c. With:Go to emergency room if symptoms worsen Address:Unknown When:2-4 days With:SHALINI FERRARI DO Address: [address] [id number]- [phone] When:2-4 days [facility] 01-28-2023 Note ORIGINAL HISTORY: Falls COMPARISON: No TECHNIQUE: Cervical spine CT with sagittal and coronal reconstructions. This exam was performed according to our departmental dose optimization program, and includes the following measures where applicable: automated exposure control, adjustment of the mAs and/or kVp according to patient size and/or exam, and an iterative reconstruction algorithm. FINDINGS: There are no acute fractures or dislocations. Alignment is within normal limits. The individual vertebral bodies are intact. The prevertebral soft tissues are unremarkable. IMPRESSION: No acute fracture. Interpreted by: Leti Rodas MD Preliminary Report By: Leti Rodas MD Electronically signed By Leti Rodas MD Dictated Date: 01/28/2023 3:03:11 PM Prelim Date: 01/28/2023 3:03:49 PM Sign Date: 01/28/2023 3:03:49 PM Ordering Provider: [facility] 01-28-2023 Note ORIGINAL HISTORY: Falls COMPARISON: No TECHNIQUE: Routine non-contrast head CT with sagittal and coronal reconstructions This exam was performed according to our departmental dose optimization program, and includes the following measures where applicable: automated exposure control, adjustment of the mAs and/or kVp according to patient size and/or exam, and an iterative reconstruction algorithm. FINDINGS: Study is degraded by motion. Otherwise, the ventricles and sulci are within normal size limits. There are no abnormal intra or extra-axial fluid collection. Bojorquez-white matter differentiation is maintained. The calvaria and the bones of the base of the skull are intact. IMPRESSION: Mildly limited by motion; otherwise unremarkable examination. Interpreted by: Leti Rodas MD Preliminary Report By: Leti Rodas MD Electronically signed By Leti Rodas MD Dictated Date: 01/28/2023 3:02:10 PM Prelim Date: 01/28/2023 3:02:56 PM Sign Date: 01/28/2023 3:02:56 PM Ordering Provider: [facility] 01-28-2023 Note ORIGINAL HISTORY: Altered mental status COMPARISON: 14 June 2021 FINDINGS: The film is rotated. There are mild streaky and patchy airspace opacities in the left lower lung. The pulmonary vasculature is unremarkable in appearance. The cardiac silhouette is within normal size limits. IMPRESSION: Mild left consolidation and or atelectasis. This is mildly increased relative the comparison. Interpreted by: Leti Rodas MD Preliminary Report By: Leti Rodas MD Electronically signed By Leti Rodas MD Dictated Date: 01/28/2023 2:45:29 PM Prelim Date: 01/28/2023 2:51:30 PM Sign Date: 01/28/2023 2:51:30 PM Ordering Provider: [facility] 01-28-2023 Note ORIGINAL HISTORY: Falls COMPARISON: No TECHNIQUE: Cervical spine CT with sagittal and coronal reconstructions. This exam was performed according to our departmental dose optimization program, and includes the following measures where applicable: automated exposure control, adjustment of the mAs and/or kVp according to patient size and/or exam, and an iterative reconstruction algorithm. FINDINGS: There are no acute fractures or dislocations. Alignment is within normal limits. The individual vertebral bodies are intact. The prevertebral soft tissues are unremarkable. IMPRESSION: No acute fracture. Interpreted by: Leti Rodas MD Preliminary Report By: Leti Rodas MD Electronically signed By Leti Rodas MD Dictated Date: 01/28/2023 3:03:11 PM Prelim Date: 01/28/2023 3:03:49 PM Sign Date: 01/28/2023 3:03:49 PM Ordering Provider: [facility] 01-28-2023 Note ORIGINAL HISTORY: Falls COMPARISON: No TECHNIQUE: Routine non-contrast head CT with sagittal and coronal reconstructions This exam was performed according to our departmental dose optimization program, and includes the following measures where applicable: automated exposure control, adjustment of the mAs and/or kVp according to patient size and/or exam, and an iterative reconstruction algorithm. FINDINGS: Study is degraded by motion. Otherwise, the ventricles and sulci are within normal size limits. There are no abnormal intra or extra-axial fluid collection. Bojorquez-white matter differentiation is maintained. The calvaria and the bones of the base of the skull are intact. IMPRESSION: Mildly limited by motion; otherwise unremarkable examination. Interpreted by: Leti Rodas MD Preliminary Report By: Leti Rodas MD Electronically signed By Leti Rodas MD Dictated Date: 01/28/2023 3:02:10 PM Prelim Date: 01/28/2023 3:02:56 PM Sign Date: 01/28/2023 3:02:56 PM Ordering Provider: [facility] 01-28-2023 Note ORIGINAL HISTORY: Falls COMPARISON: No FINDINGS: No acute fracture is seen. There are degenerative changes to the lower lumbar spine. There is a dilated loop of small bowel in the left pelvis with full thickening, at least suggestive of some combination of obstruction and enteritis. IMPRESSION: No acute fracture is seen. Interpreted by: Leti Rodas MD Preliminary Report By: Leti Rodas MD Electronically signed By Leti Rodas MD Dictated Date: 01/28/2023 2:44:13 PM Prelim Date: 01/28/2023 2:45:20 PM Sign Date: 01/28/2023 2:45:20 PM Ordering Provider: [facility] 01-28-2023 Note ORIGINAL HISTORY: Falls COMPARISON: No FINDINGS: No acute fracture is seen. There are degenerative changes to the lower lumbar spine. There is a dilated loop of small bowel in the left pelvis with full thickening, at least suggestive of some combination of obstruction and enteritis. IMPRESSION: No acute fracture is seen. Interpreted by: Leti Rodas MD Preliminary Report By: Leti Rodas MD Electronically signed By Leti Rodas MD Dictated Date: 01/28/2023 2:44:13 PM Prelim Date: 01/28/2023 2:45:20 PM Sign Date: 01/28/2023 2:45:20 PM Ordering Provider: [facility] 01-28-2023 Note ORIGINAL HISTORY: Altered mental status COMPARISON: 14 June 2021 FINDINGS: The film is rotated. There are mild streaky and patchy airspace opacities in the left lower lung. The pulmonary vasculature is unremarkable in appearance. The cardiac silhouette is within normal size limits. IMPRESSION: Mild left consolidation and or atelectasis. This is mildly increased relative the comparison. Interpreted by: Leti Rodas MD Preliminary Report By: Leti Rodas MD Electronically signed By Leti Rodas MD Dictated Date: 01/28/2023 2:45:29 PM Prelim Date: 01/28/2023 2:51:30 PM Sign Date: 01/28/2023 2:51:30 PM Ordering Provider: REGINA STEVENSON [facility] 1. Weakness 2. Falls 3. Chronic pain Weakness and falls- Pt has had 9 falls in the past week. He states sometimes he is weak and falls sometimes he gets dizzy. Patient is on multiple medications that increases risk for falls including [place] 10/325, cyclobenzaprine, gabapentin. Additionally he is taking atenolol. Check orthostatic vital signs. Decrease [place]. Hold cyclobenzaprine. Consult PT and OT. Chronic pain as above. Neuropathy consider decreasing gabapentin due to frequent falls. Will monitor. Patient was discharged from [facility] for pneumonia. He completed a course of antibiotics. Chest x-ray shows mild consolidation and/or atelectasis. Patient has no fevers. No oxygen requirements. Lungs are clear. No sputum production or cough. He does have mild leukocytosis with white blood cell count of 14,000. He received ceftriaxone and azithromycin in the emergency department. Hold off on starting any antibiotics at this time. Add incentive spirometer. Will monitor and obtain 2 view chest x-ray tomorrow morning. DVT prophylaxis: Lovenox Labs, diagnostics, and progress notes reviewed as noted in HPI Code Status: Full code Plan of care discussed with patient. All questions answered. Patient verbalizes understanding is agreeable to plan of care. This dictation was performed using voice recognition software and may include grammatical and/or spelling errors. [facility] Hospital course Narrative No data available for this section [facility] Summary Purpose Family History No Family History Records Found Advance Directives No Advanced Directives Records Found Additional Source Comments Patient Care team informatio n (unrecognized section and content) Care Team Personnel Name: SHALINI FERRARI DO Member Role: Primary Care Physician Address: Address: [facility] [address] [place], [place] [id number] Name: Macarena Agarwal RN Position: AO RN Member Role: ED RN Name: Yarelis Ford Coder Position: HIM: Coders Member Role: HIM: Coders Name: REGINA STEVENSON DO Position: ED Physician Member Role: ED Physician Address: [facility] [address] [facility] [place] [address]- Care Team Related Persons Name: JUDY TANG (unrecognized sect ion and content) No Status Records Found INFORMATION SOURCE (unrecogn ized section and content) FOR RECORDS PERTAINING TO PATIENTS WHO ARE OR HAVE BEEN ENROLLED IN A CHEMICAL DEPENDENCY/SUBSTANCEABUSE PROGRAM, SOME INFORMATION MAY BE OMITTED. This clinical summary was aggregated from multiple sources. Caution should be exercised in using it in the provision of clinical care. This summary normalizes information from multiple sources, and as a consequence, information in this document may materially change the coding, format and clinical context of patient data. In addition, data may be omitted in some cases. CLINICAL DECISIONS SHOULD BE BASED ON THE PRIMARY CLINICAL RECORDS. [employer] provides no warranty or guarantee of the accuracy or completeness of information in this document.
--- NOTE | 2023-10-15 06:57 | STRESSREP ---
Stress Test Report Pharmacologic myocardial perfusion stress test. 73-year-old man with a history of chest pain Resting EKG demonstrates sinus bradycardia with a rate of 53 bpm. Resting blood pressure is 100/52 mmHg. 0.4 mg of regadenoson was infused per usual protocol followed by rapid intravenous saline flush injection. Continuous EKG monitoring was performed. The maximum heart rate was 65 bpm which was 44% of max impacted heart rate the maximum workload was 1 metabolic equivalent. At rest there were no ST or T wave changes noted to suggest ischemia and at peak infusion nonspecific ST changes were noted which did not meet the criteria for ischemia. No clinical angina is noted. The final blood pressure was 88/42 mmHg. Myocardial perfusion protocol. 11.5 mCi of technetium 99m sestamibi was injected at rest. 0.4 mg of regadenoson was infused per usual protocol. At peak infusion 33.7 mCi of technetium 99m sestamibi was injected stress images were obtained stress and rest images were reconstructed and compared in the short axis vertical long and horizontal long axis. Gated images were also obtained. Perfusion SPECT analysis: Review of the stress images demonstrate normal uptake of tracer noted in all areas of the myocardium. The resting images similar demonstrated normal uptake of tracer noted in all areas of the myocardium. No areas of reversibility are noted to suggest ischemia and no previous infarct is noted. Conclusion: Normal pharmacologic myocardial perfusion stress test.
== END | disposition home or self-care (01) ==
LOC: CVS 06:23
PROVIDERS: PCP Family Medicine; Visit Provider Physician Assistant
DX: R06.02 Shortness of breath (principal)
CPT/HCPCS: 78452; 93017; A9500; A4216; J2785

== ENCOUNTER → 2023-10-31 | Outpatient (CLI) | payer MEDICARE, MEDICAID, SELFPAY ==
--- OUTSIDE RECORDS SUMMARY | 2023-10-31 20:23 | XMS RPT_ITS | CCD ---
Author Name Unknown Address [address] [facility] [address] [place] [address] Organization [facility] Care Team Providers Care Economic History Teacher Name Role Phone SHALINI FERRARI DO Primary Care Physician SHALINI FERRARI DO Primary Care Unavailable DANIELE RIVAS Admitting Stevenson VASQUES MD, ALLAN Attending Unavailable CAPRICE WILCOX, ALLAN Referring Unavailable Allergies Allergy Classification Reported Allergen(s) Allergy Type Date of Onset Reaction(s) Facility (1 source) Aspirin; Translations: [aspirin] Drug Allergy [facility] Medications Current Medications Medication Drug Class(es) Dates Sig (Normalized) Sig (Original) acetaminophen 325 mg / HYDROcodone bitartrate 5 mg oral tablet (1 source) Opioid Agonist Start: 01-30-2023 End: 02-02-2023 [place] 325- 5 mg oral tablet Dose = [...] 12:48-0400 Body temperature 98.24 [degF] DANIELE SHEARER [facility] 01-30-2023 12:48-0400 Diastolic Blood Pressure Non-Invasive 67 1 DANIELE SHEARER [facility] 01-30-2023 12:48-0400 Heart rate 70 /min DANIELE VORA LENS [employer] P[employer] [facility] 01-30-2023 12:48-0400 Reason For Taking VItal Signs DANIELE VORA [employer] [facility] 01-30-2023 12:48-0400 Respiratory rate 18 /min DANIELE VORA [employer] [facility] 01-30-2023 12:48-0400 Systolic Blood Pressure Non-Invasive 133 1 DANIELE VORA [employer] [facility] 01-30-2023 06:40-0400 Body temperature 98.24 [degF] DANIELE VORA [employer] P[employer] [facility] 01-30-2023 06:40-0400 Diastolic Blood Pressure Non-Invasive 72 1 DANIELE VORA [employer] [facility] 01-30-2023 06:40-0400 Heart rate 71 /min DANIELE VORA [employer] [facility] 01-30-2023 06:40-0400 Reason For Taking VItal Signs ADNIELE VORA [employer] [facility] 01-30-2023 06:40-0400 Respiratory rate 18 /min DANIELE VORA [employer] [facility] 01-30-2023 06:40-0400 Systolic Blood Pressure Non-Invasive 145 1 DANIELE VORA [employer] [facility] 01-30-2023 04:20-0400 Body temperature 98.24 [degF] DANIELE VORA [employer] [facility] 01-30-2023 04:20-0400 Diastolic Blood Pressure Non-Invasive 76 1 DANIELE VORA [employer] [facility] 01-30-2023 04:20-0400 Heart rate 74 /min DANIELE VORA [employer] [facility] 01-30-2023 04:20-0400 Reason For Taking VItal Signs DANIELE VORA [employer] [facility] 01-30-2023 04:20-0400 Respiratory rate 18 /min DANIELE VORA [employer] [facility] 01-30-2023 04:20-0400 Systolic Blood Pressure Non-Invasive 129 1 DANIELE CORNEJON [employer] [facility] 01-30-2023 00:08-0400 Heart rate 70 /min DANIELE CORNEJON [employer] [facility] 01-29-2023 19:24-0400 Heart rate 66 /min DANIELEGUMARO CORNEJON [employer] [facility] 01-29-2023 16:21-0400 Heart rate 60 /min DANIELE CORNEJON [employer] [facility] 01-29-2023 06:45-0400 Heart rate 65 /min DANIELE CORNEJON [employer] [facility] 01-28-2023 18:02-0400 Body height 185.4 cm DANIELE VORA [employer] [facility] 01-28-2023 18:02-0400 Body weight 68.1 kg DANIELE JANESHILPA [employer] [facility] 01-28-2023 18:02-0400 Body weight 19.81 kg/m2 DANIELE LARASHILPA [employer] [facility] Encounters Encounter Date Encounter Type Care Provider Facility Start: 01-28-2023 End: 01-30-2023 ambulatory SHALINI FERRARI Facility:B Start: 01-28-2023 End: 01-30-2023 Observation DANIELE VORA [employer] P[employer] [facility] Procedures Date Procedure Procedure Detail Performing Clinician Empyema (disorder) DANIELE HAYWOOD [employer]ER Immunizations Immunization Date Immunization Notes Care Provider Fa [facility] 10-25-2021 pneumococcal polysaccharide vaccine, 23 valent DANIELE VORA [employer] [facility] 10-13-2021 zoster vaccine recombinant DANIELE JANESHILPA [employer] [facility] 09-14-2021 SARS-CoV-2 mRNA (tozinameran) vaccine DANIELE JANESHILPA [employer] [facility] 08-09-2021 zoster vaccine recombinant DANIELE JANESHILPA [employer] [facility] 01-13-2021 SARS-CoV-2 mRNA (tozinameran) vaccine DANIELE JANESHILPA [employer] [facility] 12-23-2020 SARS-CoV-2 mRNA (tozinameran) vaccine DANIELE JANESHILPA [employer] [facility] Payers Date Payer Category Payer Medicaid [id number] 2021 Medicare [id number] 1950 Unknown [id number] Social History Date Type Detail Facility Start: 05-19-2021 Tobacco smoking status Smokes tobacco daily (finding) [facility] Sex Assigned At Male [facility] Functional Status Date Assessment Result Facility 01-30-2023 Functional Status Room check performed [facility] 01-30-2023 Functional Status 20 [facility] 01-29-2023 Functional Status Dinner Percent 75 [facility] 01-29-2023 Functional Status Front wheeled walker [facility] 01-29-2023 Functional Status Lunch Percent 75 [facility] 01-29-2023 Functional Status Supervised [facility] 01-29-2023 Functional Status Multilevel home [facility] 01-28-2023 Functional Status Sensory Deficits None A [facility] 01-28-2023 Functional Status Minimum assistance [facility] Mental Status Date Assessment Result Facility 01-30-2023 Mental Status Orientation Not oriented to situation [facility] 01-30-2023 Mental Status [facility] 01-30-2023 Mental Status [facility] 01-28-2023 Mental Status Orientation Asse ssment Not oriented to place [facility] Clinical Notes 01-28-2023 to 02-02-2023 Note [...] Locations *1: This test was performed at: [address], [facility] , [facility] ([place]) 02-02-2023 Note . MICRO - Microbiology PROCEDURE: [...] Locations *1: This test was performed at: [address], [address] [place] [address] ([place]) 01-30-2023 Nurse Discharge summary Discharged to [address] [facility]. Escorted to the exit via w/c per BLAYNE Toussaint. Transported by Significant other, Judy. Left at 1425. [facility] 01-30-2023 Note Discharge Instructions Thank you for allowing [facility] to assist you with your healthcare needs. [...] follow up with PCP after d/c. Where: [facility] [address] [place] [address] [place] [address] [phone] Follow Up with Go to emergency room if symptoms worsen When Within 2-4 days Follow Up with SHALINI FERRARI DO When Within 2-4 days Where: [facility] [address] [facility] [place] [address] [phone] The Following Activity and Diet Have Been [...] When Why Instructions Last Dose Changed acetaminophen-hydrocodone ([place] 325- 5 mg oral tablet) 1 tab(s) [...] in vomit, stools (black or red color) [id number] [employer]. [address] [place] [address], [place] [address]. All rights reserved. This information is not intended as a substitute for professional medical care. Always follow your healthcare professional's instructions. Additional Information VACCINATE! IT SAVES LIVES! Members of the community who have not yet received the COVID-19 vaccine and would like to receive it can visit one of [facility] vaccine clinics. There are many vaccine clinic locations within the [facility]. For locations and available times, please visit [email or web address] .[email or web address] It is important to note that some COVID mobile vaccine clinics are held outdoors and may be canceled in rainy or stormy conditions. To learn more about pediatric vaccinations (ages 5-11), we invite you to visit the [facility] webpage. [email or web address]/page [email or web address]-Eyqkbosautw-Frequently -[email or web address]-Questions.html To learn more about the COVID-19 vaccine, we invite you to visit the CDC website for a list of frequently asked questions. https://www.cdc.gov/coronavirus/201 9-ncov/vaccines/faq.html [facility] [employer] Patient Portal Access Instructions: Stay connected with your healthcare team and access your personal medical information anytime with the [facility] Patient Portal.If you would like a full copy of your medical records, please contact the [facility] Medical Records Department, Saturday through Saturday between 8a.m. and 4:30p.m. Please follow the directions below to access the portal: 1.Access the email account you provided upon registration to the [facility].2.Look for an invitation email from [facility].3.Open the email and access the invitation link: Accept Invitation to [facility] [employer]4.Fill in the required cuellar to create your account. Sign into [email or web address] with your username and password that you [...] you will allow to register on the [facility] Patient Portal for access to your information. You can also access the [facility] Patient Portal on the [employer] андрей. Simply click on Health Records under Health Data and then click on the [employer] logo. HOW TO SAFELY DISPOSE OF PRESCRIPTION [...] Call your local pharmacy or go to [email or web address].[email or web address] to find one close to you.3.Make use of household items: Use cat litter or old coffee grounds to dispose medications if other options are not available. Mix your drugs with these household products, seal them in an airtight container and throw it into the garbage. Call [facility]: [phone] to be sure your drugs can be [...] aware that I should contact my doctor. 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 MICRO - Microbiology [...] Locations *1: This test was performed at: [facility], [address] [place] [address], [facility] , [facility] ([place]) 01-29-2023 Note Date of Service 01/29/2023 Chief Complaint Weakness and falls Subjective 72-year-old male with past medical history significant for arthritis, chronic pain, depression, GERD, gastric ulcers, IBS, kidney stones, neuropathy, tobacco use. Patient presented to [facility] emergency department on 01/28/2023 with increased falls and weakness. Patient was discharged from [facility] on 01/16/2023 for gastroenteritis and [...] medications that increases risk for falls including [place] 10/325, cyclobenzaprine, gabapentin. Check orthostatic vital signs. Decrease [place]. Hold cyclobenzaprine. PCPs note was reviewed from [...] Urinalysis show NGTD. Patient was discharged from [facility] for pneumonia. He completed a [...] 02:48 PM Digitally Signed by DANIELE VORA LENS BLOCKER-ROLL PICKER on 01/30/2023 07:26 AM [facility] 01-29-2023 Note ORIGINAL EXAMINATION: TWO XRAY [...] Date: 01/29/2023 6:12:42 AM [facility]ing [facility] Note ORIGINAL EXAMINATION: TWO XRAY VIEWS [...] Date: 01/29/2023 6:12:42 AM [facility]ing [facility] 01-28-2023 Note Date of Service 01/28/2023 Chief Complaint Patient presents for AMS. History of Present Illness 72-year-old male with past medical history significant for arthritis, chronic pain, depression, GERD, gastric ulcers, IBS, kidney stones, neuropathy, tobacco use. Patient presented to [facility] emergency department on 01/28/2023 with increased falls and weakness. Patient was discharged from [facility] on 01/16/2023 for gastroenteritis and [...] medications that increases risk for falls including [place] 10/325, cyclobenzaprine, gabapentin. Additionally he is taking atenolol. Check orthostatic vital signs. Decrease [place]. Hold cyclobenzaprine. Consult PT and OT. Chronic pain as above. Neuropathy consider decreasing gabapentin due to frequent falls. Will monitor. Patient was discharged from [facility] for pneumonia. He completed a [...] DANIELE VORA APRN-SOLE on 01/28/2023 05:30 PM [facility] 01-28-2023 Hospital Discharge instructions Patient Education 01/28/2023 [...] in vomit, stools (black or red color) [id number] [employer]. [address] [place] [address]. All rights reserved. This information is not intended as a substitute for professional medical care. Always follow your healthcare professional's instructions. Follow Up Care 01/28/2023 13:32:30 With:SHALINI FERRARI DO Address: [address] [phone] When:3-5 days Comments:Please schedule follow up with PCP after d/c. With:Go to emergency room if symptoms worsen Address:Unknown When:2-4 days With:SHALINI FERRARI DO Address: [address] [id number]- [phone] When:2-4 days [facility] 01-28-2023 Note ORIGINAL HISTORY: Falls COMPARISON: [...] Sign Date: 01/28/2023 3:03:49 PM Ordering Provider: [facility] 01-28-2023 Note ORIGINAL HISTORY: Falls COMPARISON: No [...] Sign Date: 01/28/2023 3:02:56 PM Ordering Provider: [facility] 01-28-2023 Note ORIGINAL HISTORY: Altered mental status [...] Sign Date: 01/28/2023 2:51:30 PM Ordering Provider: [facility] 01-28-2023 Note ORIGINAL HISTORY: Falls COMPARISON: No [...] Sign Date: 01/28/2023 3:03:49 PM Ordering Provider: [facility] 01-28-2023 Note ORIGINAL HISTORY: Falls COMPARISON: No [...] Sign Date: 01/28/2023 3:02:56 PM Ordering Provider: [facility] 01-28-2023 Note ORIGINAL HISTORY: Falls COMPARISON: No [...] Sign Date: 01/28/2023 2:45:20 PM Ordering Provider: [facility] 01-28-2023 Note ORIGINAL HISTORY: Falls COMPARISON: No [...] Sign Date: 01/28/2023 2:45:20 PM Ordering Provider: [facility] 01-28-2023 Note ORIGINAL HISTORY: Altered mental status [...] 01/28/2023 2:51:30 PM Ordering Provider: REGINA STEVENSON [facility] 1. Weakness 2. Falls 3. Chronic pain Weakness and falls- Pt has had 9 falls in the past week. He states sometimes he is weak and falls sometimes he gets dizzy. Patient is on multiple medications that increases risk for falls including [place] 10/325, cyclobenzaprine, gabapentin. Additionally he is taking atenolol. Check orthostatic vital signs. Decrease [place]. Hold cyclobenzaprine. Consult PT and OT. Chronic pain as above. Neuropathy consider decreasing gabapentin due to frequent falls. Will monitor. Patient was discharged from [facility] for pneumonia. He completed a [...] and may include grammatical and/or spelling errors. [facility] Hospital course Narrative No data available for this section [facility] Summary Purpose Family History No Family History Records Found Advance Directives No Advanced Directives Records Found Additional Source Comments Patient Care team informatio n (unrecognized section and content) Care Team Personnel Name: SHALINI FERRARI DO Member Role: Primary Care Physician Address: Address: [facility] [address] [place], [place] [address] Name: Macarena Agarwal RN Position: AO RN Member Role: ED RN Name: Yarelis Ford Coder Position: HIM: Coders Member Role: HIM: Coders Name: REGINA STEVENSON DO Position: ED Physician Member Role: ED Physician Address: Address[facility] [address] [facility] [place] [address]- Care Team Related Persons Name: JUDY TANG [...] BE BASED ON THE PRIMARY CLINICAL RECORDS. [employer] provides no warranty or guarantee of the accuracy or completeness of information in this document.
== END | disposition home or self-care (01) ==
LOC: SL 19:52
PROVIDERS: PCP Family Medicine; Referring Provider Nurse Practitioner Acute Care; Visit Provider Nurse Practitioner Acute Care
DX: G47.10 Hypersomnia, unspecified (principal)
CPT/HCPCS: 95810

== ENCOUNTER → 2023-11-20 | Outpatient (CLI) | payer MEDICARE, MEDICAID, SELFPAY ==
[2023-11-20 12:52] LABS: Absolute Lymphocyte Count 1.13 X10^3/uL (0.83-4.51); Absolute Neutrophil Count 6.1 X10^3/uL (2.0-7.7); Basophil# 0.08 X10^3/uL; Eosinophil# 0.21 X10^3/uL; Eosinophils% 2.5 % (0-5); Hemoglobin 9.9 g/dL (13.0-16.5); Lymphocyte # 1.13 X10^3/ul (0.83-4.51); Lymphocyte % 13.6 % (19-41); Mean Corp Hgb Conc 30.9 g/dL (32-36); Mean Corpuscular Hgb 32.4 pg (27.0-32.0); Mean Corpuscular Volume 104.6 fL (80-94); Mean Platelet Vol. 9.6 fl (6.2-12.0); Monocyte% 8.4 % (0-10); NRBC Flagged by Analyzer 0 % (0-5); Neutrophil # 6.09 X10^3/uL (2.7-7.7); Neutrophil % 73.5 % (47-70); Platelet Count 341 K/mm3 (150-450); RBC Distribution Width CV 13.3 % (11.6-14.6); Red Blood Count 3.06 M/mm3 (4.6-6.2); White Blood Count 8.3 K/mm3 (4.4-11.0)
[2023-11-20 13:28] LABS: ALB/GLOB Ratio 0.7 RATIO (0.9-2.4); AST(SGOT) 23 U/L (15-37); Alanine Aminotransfer ALT/SGPT 26 U/L (16-61); Alkaline Phosphatase 81 U/L (45-117); Anion Gap 1 (5-15); BUN 27 mg/dL (7-18); BUN/Creat Ratio 20.6 RATIO (10-20); Calcium,Total 9.9 mg/dL (8.5-10.1); Chloride 105 mmol/L (98-107); Creatinine, Serum 1.31 mg/dL (0.70-1.30); EST Glomerular Filtration Rate 57 mL/min (>60); Est Glom Filt Rate - Afr Amer 69 mL/min (>60); Globulin 4.5 g/dL (2.2-4.2); Glucose 96 mg/dL (74-106); Potassium 5.1 mmol/L (3.5-5.1); Protein, Total 7.5 g/dL (6.4-8.2); Sodium Level 134 mmol/L (136-145)
[2023-11-20 13:29] LABS: PSA,Total- Diagnostic 1.85 ng/mL (0.0-4.0)
--- OUTSIDE RECORDS SUMMARY | 2023-11-20 16:49 | XMS RPT_ITS | CCD ---
Author Name Unknown Address [address] [facility] [address] [place] [address] Organization [facility] Care Team Providers Care Pot Lining Supervisor Name Role Phone SHALINI FERRARI DO Primary Care Physician SHALINI FERRARI DO Primary Care Unavailable DANIELE RIVAS Admitting Stevenson VASQUES MD, ALLAN Attending Unavailable CAPRICE WILCOX, ALLAN Referring Unavailable Allergies Allergy Classification Reported Allergen(s) Allergy Type Date of Onset Reaction(s) Facility (1 source) Aspirin; Translations: [aspirin] Drug Allergy [facility] Medications Current Medications Medication Drug Class(es) Dates Sig (Normalized) Sig (Original) acetaminophen 325 mg / HYDROcodone bitartrate 5 mg oral tablet (1 source) Opioid Agonist Start: 01-30-2023 End: 02-02-2023 Oxnard 325- 5 mg oral tablet Dose = [...] 12:48-0400 Body temperature 98.24 [degF] DANIELE SHEARER [facility] 01-30-2023 12:48-0400 Diastolic Blood Pressure Non-Invasive 67 1 DANIELE SHEARER [facility] 01-30-2023 12:48-0400 Heart rate 70 /min DANIELE VORA TOURIST [employer] [facility] 01-30-2023 12:48-0400 Reason For Taking VItal Signs DANIELE VORA TOURIST [employer] SPECIALIST [facility] 01-30-2023 12:48-0400 Respiratory rate 18 /min DANIELE VORA TOURIST [employer] SPECIALIST [facility] 01-30-2023 12:48-0400 Systolic Blood Pressure Non-Invasive 133 1 DANIELE VORA TOURIST [employer] SPECIALIST [facility] 01-30-2023 06:40-0400 Body temperature 98.24 [degF] DANIELE VORA TOURIST [employer] SPECIALIST [facility] 01-30-2023 06:40-0400 Diastolic Blood Pressure Non-Invasive 72 1 DANIELE VORA TOURIST [employer] SPECIALIST [facility] 01-30-2023 06:40-0400 Heart rate 71 /min DANIELE VORA TOURIST [employer] SPECIALIST [facility] 01-30-2023 06:40-0400 Reason For Taking VItal Signs DANIELE VORA TOURIST [employer] SPECIALIST [facility] 01-30-2023 06:40-0400 Respiratory rate 18 /min DANIELE VORA TOURIST [employer] SPECIALIST [facility] 01-30-2023 06:40-0400 Systolic Blood Pressure Non-Invasive 145 1 DANIELE VORA TOURIST [employer] SPECIALIST [facility] 01-30-2023 04:20-0400 Body temperature 98.24 [degF] DANIELE VORA TOURIST [employer] SPECIALIST [facility] 01-30-2023 04:20-0400 Diastolic Blood Pressure Non-Invasive 76 1 DANIELE VORA TOURIST [employer] SPECIALIST [facility] 01-30-2023 04:20-0400 Heart rate 74 /min DANIELE VORA TOURIST [employer] SPECIALIST [facility] 01-30-2023 04:20-0400 Reason For Taking VItal Signs DANIELE VORA TOURIST [employer] [facility] 01-30-2023 04:20-0400 Respiratory rate 18 /min DANIELE VORA TOURIST [employer] SPECIALIST [facility] 01-30-2023 04:20-0400 Systolic Blood Pressure Non-Invasive 129 1 DANIELE CORNEJON TOURIST [employer]IST [facility] 01-30-2023 00:08-0400 Heart rate 70 /min DANIELE CORNEJON [employer]RIST [employer] 01-29-2023 19:24-0400 Heart rate 66 /min DANIELEGUMARO CORNEJON [employer] 01-29-2023 16:21-0400 Heart rate 60 /min DANIELE CORNEJON [employer] 01-29-2023 06:45-0400 Heart rate 65 /min DANIELE CORNEJON [employer] 01-28-2023 18:02-0400 Body height 185.4 cm DANIELE VORA TOURIST [employer] 01-28-2023 18:02-0400 Body weight 68.1 kg DANIELE JANESHILPA [employer]ST [employer] 01-28-2023 18:02-0400 Body weight 19.81 kg/m2 DANIELE LARASHILPA [employer]RIST [employer] Encounters Encounter Date Encounter Type Care Provider Facility Start: 01-28-2023 End: 01-30-2023 ambulatory SHALINI FERRARI Facility:B Start: 01-28-2023 End: 01-30-2023 Observation DANIELE VORA TOURIST [employer] SPECIALIST [facility] Procedures Date Procedure Procedure Detail Performing Clinician Empyema (disorder) DANIELE HAYWOOD TOURIST [employer] [facility]IST Immunizations Immunization Date Immunization Notes Care Provider Fa [facility] 10-25-2021 pneumococcal polysaccharide vaccine, 23 valent DANIELE VORA TOURIST [employer] 10-13-2021 zoster vaccine recombinant DANIELE JANESHILPA [employer]RI[facility] [employer] 09-14-2021 SARS-CoV-2 mRNA (tozinameran) vaccine DANIELE JANESHILPA [employer] [employer] 08-09-2021 zoster vaccine recombinant DANIELE JANESHILPA [employer]ST [employer] 01-13-2021 SARS-CoV-2 mRNA (tozinameran) vaccine DANIELE JANESHILPA [employer] [employer] 12-23-2020 SARS-CoV-2 mRNA (tozinameran) vaccine DANIELE JANESHILPA TOURIST [employer] Payers Date Payer Category Payer Medicaid [id number] 2021 Medicare [id number] 1950 Unknown [id number] Social History Date Type Detail Facility Start: 05-19-2021 Tobacco smoking status Smokes tobacco daily (finding) [facility] Sex Assigned At Male [facility] Functional Status Date Assessment Result Facility 01-30-2023 Functional Status Room check performed [facility] 01-30-2023 Functional Status 20 [facility] 01-29-2023 Functional Status Dinner Percent 75 [facility] 01-29-2023 Functional Status Front wheeled walker [facility] 01-29-2023 Functional Status Lunch Percent 75 [facility] 01-29-2023 Functional Status Supervised [facility] 01-29-2023 Functional Status Multilevel home [facility] 01-28-2023 Functional Status Sensory Deficits None A [facility] 01-28-2023 Functional Status Minimum assistance [facility] Mental Status Date Assessment Result Facility 01-30-2023 Mental Status Orientation Not oriented to situation [facility] 01-30-2023 Mental Status [facility] 01-30-2023 Mental Status [facility] 01-28-2023 Mental Status Orientation Asse ssment Not oriented to place [facility] Clinical Notes 01-28-2023 to 02-02-2023 Note Date [...] Locations *1: This test was performed at: [address], [facility] ([place]) 02-02-2023 Note . MICRO - Microbiology PROCEDURE: [...] Locations *1: This test was performed at: [address], [address] [place] [address] ([place]) 01-30-2023 Nurse Discharge summary Discharged to [facility]. Escorted to the exit via w/c per BLAYNE Toussaint. Transported by Significant other, Judy. Left at 1425. [facility] 01-30-2023 Note Discharge Instructions Thank you for allowing [facility] to assist you with your healthcare needs. [...] follow up with PCP after d/c. Where: [facility] [address] [place] [address] [place] [address] [phone] Follow Up with Go to emergency room if symptoms worsen When Within 2-4 days Follow Up with SHALINI FERRARI DO When Within 2-4 days Where: [facility] [address] [facility] [place] [address]- [phone] The Following Activity and Diet Have Been [...] When Why Instructions Last Dose Changed acetaminophen-hydrocodone (Oxnard 325- 5 mg oral tablet) 1 tab(s) [...] in vomit, stools (black or red color) [id number] [employer] [address] [place] [address], [place] [address]. All rights reserved. This information is not intended as a substitute for professional medical care. Always follow your healthcare professional's instructions. Additional Information VACCINATE! IT SAVES LIVES! Members of the community who have not yet received the COVID-19 vaccine and would like to receive it can visit one of [facility] vaccine clinics. There are many vaccine clinic locations within the [facility]. For locations and available times, please visit [email or web address] .[email or web address] It is important to note that some COVID mobile vaccine clinics are held outdoors and may be canceled in rainy or stormy conditions. To learn more about pediatric vaccinations (ages 5-11), we invite you to visit the [facility] webpage. [email or web address]/page [email or web address]-Tztpz-Qpouppfobfw-Frequently -Asked-Questions.html To learn more about the COVID-19 vaccine, we invite you to visit the CDC website for a list of frequently asked questions. https://www.cdc.gov/coronavirus/201 9-ncov/vaccines/faq.html [email or web address] Patient Portal Access Instructions: Stay connected with your healthcare team and access your personal medical information anytime with the [facility] Patient Portal.If you would like a full copy of your medical records, please contact the [facility] Medical Records Department, Saturday through Saturday between 8a.m. and 4:30p.m. Please follow the directions below to access the portal: 1.Access the email account you provided upon registration to the [facility].2.Look for an invitation email from [facility].3.Open the email and access the invitation link: Accept Invitation to [facility] [email or web address].Fill in the required cuellar to create your account. Sign into [email or web address] with your username and password that you [...] you will allow to register on the [facility] Patient Portal for access to your information. You can also access the [facility] Patient Portal on the [employer] андрей. Simply click on Health Records under Health Data and then click on the [employer] logo. HOW TO SAFELY DISPOSE OF PRESCRIPTION [...] Call your local pharmacy or go to http://Section 101.AW-Energy/8Z9Kg3d to find one close to you.3.Make use of household items: Use cat litter or old coffee grounds to dispose medications if other options are not available. Mix your drugs with these household products, seal them in an airtight container and throw it into the garbage. Call [facility]: [phone] to be sure your drugs can be [...] aware that I should contact my doctor. 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 MICRO - Microbiology PROCEDURE: [...] Locations *1: This test was performed at: [facility], [address] [place] [address], [facility] ([place]) 01-29-2023 Note Date of Service 01/29/2023 Chief Complaint Weakness and falls Subjective 72-year-old male with past medical history significant for arthritis, chronic pain, depression, GERD, gastric ulcers, IBS, kidney stones, neuropathy, tobacco use. Patient presented to [facility] emergency department on 01/28/2023 with increased falls and weakness. Patient was discharged from [facility] on 01/16/2023 for gastroenteritis and COVID-19 [...] medications that increases risk for falls including Oxnard 10/325, cyclobenzaprine, gabapentin. Check orthostatic vital signs. Decrease Oxnard. Hold cyclobenzaprine. PCPs note was reviewed from [...] Urinalysis show NGTD. Patient was discharged from [facility] for pneumonia. He completed a course [...] 02:48 PM Digitally Signed by DANIELE VORA TOURIST ESC[employer]ARI[employer] SPECIALIST on 01/30/2023 07:26 AM [facility] 01-29-2023 Note ORIGINAL EXAMINATION: TWO XRAY VIEWS [...] 6:12:42 AM Ordering Provider: [facility]29[facility]23 Note ORIGINAL EXAMINATION: TWO XRAY [...] Date: 01/29/2023 6:12:42 AM [facility] 01-28-2023 Note Date of Service 01/28/2023 Chief Complaint Patient presents for AMS. History of Present Illness 72-year-old male with past medical history significant for arthritis, chronic pain, depression, GERD, gastric ulcers, IBS, kidney stones, neuropathy, tobacco use. Patient presented to [facility] emergency department on 01/28/2023 with increased falls and weakness. Patient was discharged from [facility] on 01/16/2023 for gastroenteritis and COVID-19 [...] medications that increases risk for falls including Oxnard 10/325, cyclobenzaprine, gabapentin. Additionally he is taking atenolol. Check orthostatic vital signs. Decrease Oxnard. Hold cyclobenzaprine. Consult PT and OT. Chronic pain as above. Neuropathy consider decreasing gabapentin due to frequent falls. Will monitor. Patient was discharged from [facility] for pneumonia. He completed a course [...] DANIELE VORA APRN-SOLE on 01/28/2023 05:30 PM [facility] 01-28-2023 Hospital Discharge instructions Patient Education 01/28/2023 [...] in vomit, stools (black or red color) [id number] [employer] [address] [place] [address]. All rights reserved. This information is not intended as a substitute for professional medical care. Always follow your healthcare professional's instructions. Follow Up Care 01/28/2023 13:32:30 With:SHALINI FERRARI DO Address: [address] [address] [phone] When:3-5 days Comments:Please schedule follow up with PCP after d/c. With:Go to emergency room if symptoms worsen Address:Unknown When:2-4 days With:SHALINI FERRARI DO Address: [address] [id number]- [phone] When:2-4 days [facility] 01-28-2023 Note ORIGINAL HISTORY: Falls [...] Sign Date: 01/28/2023 3:03:49 PM Ordering Provider: [facility] 01-28-2023 Note ORIGINAL HISTORY: Falls COMPARISON: No [...] Sign Date: 01/28/2023 3:02:56 PM Ordering Provider: [facility] 01-28-2023 Note ORIGINAL HISTORY: Altered mental status [...] Sign Date: 01/28/2023 2:51:30 PM Ordering Provider: [facility] 01-28-2023 Note ORIGINAL HISTORY: Falls COMPARISON: No [...] Sign Date: 01/28/2023 3:03:49 PM Ordering Provider: [facility] 01-28-2023 Note ORIGINAL HISTORY: Falls COMPARISON: No [...] Sign Date: 01/28/2023 3:02:56 PM Ordering Provider: [facility] 01-28-2023 Note ORIGINAL HISTORY: Falls COMPARISON: No [...] Sign Date: 01/28/2023 2:45:20 PM Ordering Provider: [facility] 01-28-2023 Note ORIGINAL HISTORY: Falls COMPARISON: No [...] Sign Date: 01/28/2023 2:45:20 PM Ordering Provider: [facility] 01-28-2023 Note ORIGINAL HISTORY: Altered mental status [...] 01/28/2023 2:51:30 PM Ordering Provider: REGINA STEVENSON [facility] 1. Weakness 2. Falls 3. Chronic pain Weakness and falls- Pt has had 9 falls in the past week. He states sometimes he is weak and falls sometimes he gets dizzy. Patient is on multiple medications that increases risk for falls including Oxnard 10/325, cyclobenzaprine, gabapentin. Additionally he is taking atenolol. Check orthostatic vital signs. Decrease Oxnard. Hold cyclobenzaprine. Consult PT and OT. Chronic pain as above. Neuropathy consider decreasing gabapentin due to frequent falls. Will monitor. Patient was discharged from [facility] for pneumonia. He completed a course [...] and may include grammatical and/or spelling errors. [facility] Hospital course Narrative No data available for this section [facility] Summary Purpose Family History No Family History Records Found Advance Directives No Advanced Directives Records Found Additional Source Comments Patient Care team informatio n (unrecognized section and content) Care Team Personnel Name: SHALINI FERRARI DO Member Role: Primary Care Physician Address: Address: [facility] [address] [place], [place] [address] Name: Macarena Agarwal RN Position: AO RN Member Role: ED RN Name: Yarelis Ford Coder Position: HIM: Coders Member Role: HIM: Coders Name: REGINA STEVENSON DO Position: ED Physician Member Role: ED Physician Address: Address: [address] [facility] [place] [address]- Care Team Related Persons Name: JUDY TANG [...] BE BASED ON THE PRIMARY CLINICAL RECORDS. [employer] provides no warranty or guarantee of the accuracy or completeness of information in this document.
== END | disposition home or self-care (01) ==
LOC: BIMLAB 12:05
PROVIDERS: Physician Assistant; PCP Family Medicine; Referring Provider Family Medicine; Visit Provider Family Medicine
DX: K21.9 Gastro-esophageal reflux disease without esophagitis (principal); N40.1 Benign prostatic hyperplasia with lower urinary tract symptoms; R39.11 Hesitancy of micturition; R06.02 Shortness of breath
CPT/HCPCS: 36415; 80053; 84153; 85025

== ENCOUNTER 2023-12-03 16:27 | Inpatient (IN) | payer MEDICARE, MEDICAID, SELFPAY ==
[2023-12-03] VITALS (10 sets, daily range): BP systolic 134–177; BP diastolic 62–104; PULSE 50–72; RESP 12–18; TEMP 36.3–36.7; O2SAT 93–100; BMI 20.3
--- NOTE | 2023-12-03 17:00 | EDS_ITS ---
HPI History of Present Illness Chief Complaint: Alt LOC Narrative Narrative: 70-year-old male presenting with what he calls confusion. When asked to describe this he states I am angry . He states I been urinating on myself all day and my bladder hurts. He states he does not have a history of this that he recalls. He has not a fever at home. He is not vomiting. He denies any injury. Patient states been a couple of days that he is urinated he can recall. [facility] Medical History Arthritis Arthritis Back pain Cardiology follow-up encounter Chronic pain Community acquired pneumonia COPD (chronic obstructive pulmonary disease) Depression Difficulty chewing Drop foot gait Forgetfulness Former smoker GERD (gastroesophageal reflux disease) High cholesterol History of echocardiogram History of GI bleed History of hiatal hernia History of stomach ulcers History of stress test Hyperlipidemia Hypertension IBS (irritable bowel syndrome) Neuropathy On home oxygen therapy Overdose Pneumonia Severe protein-calorie malnutrition Shortness of breath on exertion Syncope Wears dentures Wears glasses Home Medications multivitamin 1 tab PO DAILY supplement 07/01/21 [History Last Taken 10/08/23] pantoprazole 40 mg tablet,delayed release 40 mg PO QAM #90 tabs 10/29/22 [Rx Last Taken 10/09/23] glucosamine-chondroitin 250 mg-200 mg tablet (Osteo Bi-Flex) 2 tab PO DAILY 01/12/23 [History Last Taken 10/08/23] pravastatin 40 mg tablet 40 mg PO QHS #90 tabs 03/13/23 [Rx Last Taken 10/08/23] atenolol 50 mg tablet 50 mg PO DAILY #90 tabs 03/26/23 [Rx Last Taken 10/09/23] docusate sodium 100 mg capsule (Colace) 100 mg PO DAILY Constipation 08/01/23 [History Last Taken 10/08/23] fluticasone propionate 50 mcg/actuation nasal spray,suspension 2 spray intranasal DAILY #16 grams 08/20/23 [Rx Last Taken 10/08/23] albuterol sulfate 90 mcg/actuation aerosol inhaler See Rx Instructions .Route .COMPLEX #8.5 grams 10/22/23 [Rx Last Taken Unknown] carboxymethylcellulose sodium 0.5 % eye drops (Refresh Tears) 1 drp ophthalmic (eye) 4-6XD PRN dry eye(s) 10/22/23 [History Last Taken Unknown] ipratropium 0.5 mg-albuterol 3 mg (2.5 mg base)/3 mL nebulization soln 3 ml inhalation BID shortness of breath or wheezing #180 mL 10/22/23 [Rx Last Taken Unknown] rollator walker with seat #1 ea 11/05/23 [Rx Last Taken Unknown] lisinopril 10 mg tablet 10 mg PO 1600 #90 tabs 11/06/23 [Rx Last Taken Unknown] trazodone 100 mg tablet 100 mg PO QHS #90 tabs 11/06/23 [Rx Last Taken Unknown] hydrocodone 10 mg-acetaminophen 325 mg tablet 1 tab PO TID 1 month #90 tabs 11/20/23 [Rx Last Taken Unknown] Allergy/AdvReac Type Severity Reaction Status Date / Time aspirin Allergy Severe bleeding Verified 11/20/23 11:17 Family History Mother Myocardial infarction, Onset Age: 49 Depression Father Hypertension CVA (cerebral vascular accident), Onset Age: 49 Sister Thyroid disorder Uncle ulcers Surgical History History of bronchoscopy History of esophagogastroduodenoscopy (EGD) History of thoracic surgery Hx of colonoscopy Social History household members: spouse and significant other Smoking Status: Former smoker quit date: 07/14/21 alcohol intake: never substance use type: does not use what type of physical activity do you participate in: other details: yard work, house work ROS ROS ED Constitutional Constitutional ED: Denies chills, fever(s) or sweats Eyes Eyes: Denies blurry vision or change in vision ENT ENT ED: Denies ear pain or sore throat Cardiovascular Cardiovascular: Denies chest pain, palpitations or racing heartbeat Respiratory/Chest Respiratory/Chest: Denies cough, dyspnea or sputum Gastrointestinal Gastrointestinal: Reports abdominal pain; Denies constipation, diarrhea, nausea or vomiting Genitourinary Genitourinary ED: Reports other Details: Urine dribbling ; Denies dysuria, hematuria or urinary frequency Musculoskeletal Musculoskeletal: Denies arthralgias, myalgias or neck pain Integumentary Denies abscess, Abrasions or rash Neurologic Neurologic: Denies headache(s), paresthesias or weakness Psychiatric Psychiatric: Denies anxiety, depression, suicidal ideation or suicidal thoughts Endocrine Endocrinology: Denies polydipsia or polyuria EXAM Physical Exam Const Vital Signs: 12/03/23 16:31 12/03/23 16:37 12/03/23 18:53 Temperature 98.1 F 98 F 97.8 F Temperature Source Temporal Temporal Temporal Pulse Rate 62 72 56 L Respiratory Rate 15 15 16 Blood Pressure 177/104 H 177/104 H 160/82 H Blood Pressure Mean 128 128 108 Pulse Ox 93 95 95 Oxygen Delivery Method Nasal Cannula Nasal Cannula Nasal Cannula Oxygen Flow Rate (L/min) 3 3 3 Positive well nourished General Appearance ED: NAD; Negative for pallor HEENT Reports dry mucous membranes Mouth ED: Yes dry mucous membranes Mouth: dry mucous membranes Eyes PERRL and EOMs intact bilaterally Chest Wall inspection of chest normal Resp normal respiratory effort and clear to auscultation bilaterally Auscultation: Negative for rales, rhonchi or wheezes Cardio regular rate and regular rhythm GI GI Narrative: Suprapubic pressure. Bedside bladder scan shows 1770 cc Back/Spine no CVA tenderness Neuro oriented x3, CN's II-XII intact bilaterally and no sensory deficits noted Sensorium / Orientation: alert Psych Psych Narrative: Agitated Skin no rashes or lesions noted General Skin Exam: Negative for jaundice or pallor MDM MDM MDM Narrative Medical decision making narrative: Patient presenting with suprapubic pressure and agitation. He states he was angry because he is urinating on himself. He is unable to void significantly. Initially evaluated without family present. Bedside bladder scan shows 1770 cc in the bladder. Rocha catheter was placed with 2 L removed. Differential includes acute kidney injury, urinary outlet obstruction, UTI, pyelonephritis, dehydration, anemia, electrolyte abnormalities. Patient was given IV fluids. CBC was obtained and white blood cell count 11.9. Hemoglobin 9.5. This is near baseline. Platelets are 339 and normal. Potassium was elevated 8.4 with some hemolysis noted. Creatinine 8.75 which is new. GFR is 6. Previous creatinine 1.31 and prior to that was completely normal. Given the hyperkalemia repeat BMP was ordered as well as tomorrow IV fluids. Patient given albuterol, insulin, D50, sodium bicarb, Kayexalate, calcium gluconate. Hospitalist recommended repeat BMP as there was some hemolysis. EKG on my interpretation did not show some peaked T waves however the sinus rhythm at 57 bpm. Patient is currently receiving IV fluids and is normotensive. CT of the abdomen pelvis without contrast was obtained and shows possible left mild hydronephrosis but this was before the Rocha catheter was placed and likely result of urinary outlet obstruction. Discussed with who is now present and she states that he had recently had his PSA checked and was normal. Given the acute renal failure patient to be admitted to the hospitalist. Given the hyperkalemia she recommended admission to the ICU. Impression: 1. Urinary outlet obstruction 2. Acute renal failure 3. Hyperkalemia 4. Weakness Lab Data Attestation: I reviewed the patient's lab results. Labs: Laboratory Results - last 24 hr 12/03/23 12/03/23 16:39 17:05 WBC 11.9 H RBC 2.92 L Hgb 9.5 L Hct 30.0 L MCV 102.7 H MCH 32.5 H MCHC 31.7 L RDW Std Deviation 54.7 H RDW Coeff of Issa 14.6 Plt Count 339 MPV 10.7 Immature Gran % (Auto) 0.400 Neut % (Auto) 81.7 H Lymph % (Auto) 6.4 L Stephens % (Auto) 7.0 Eos % (Auto) 3.6 Baso % (Auto) 0.9 Absolute Neuts (auto) 9.7 H Absolute Lymphs (auto) 0.76 L Nucleated RBC % 0 Differential Comment SCANNED Sodium 134 L Potassium 8.4 H* Chloride 105 Carbon Dioxide 19.0 L Anion Gap 10 BUN 102 H* Creatinine 8.75 H* Estim Creat Clear Calc 7.23 Est GFR (MDRD) Af Amer 8 L Est GFR (MDRD) Non-Af 6 L BUN/Creatinine Ratio 11.7 Glucose 104 Calcium 11.6 H Total Bilirubin 0.20 AST 24 ALT 25 Alkaline Phosphatase 81 Total Creatine Kinase 112 Total Protein 8.0 Albumin 3.3 Globulin 4.7 H Albumin/Globulin Ratio 0.7 L Urine Color Yellow Urine Clarity Clear Urine pH 6.5 Ur Specific [place] 1.010 Urine Protein 30 H Urine Glucose (UA) Normal Urine Ketones Negative Urine Occult Blood 150 H Urine Nitrite Negative Urine Bilirubin Negative Urine Urobilinogen Normal Ur Leukocyte Esterase 25 H Urine RBC 25-50 SEEN Urine WBC 0-5 SEEN Ur Squamous Epith Cells 0 SEEN Urine Bacteria 0 SEEN Urine Mucus 0 SEEN Radiography Diagnostic Testing: Clinical Impression(s) from Imaging Studies Abdomen/Pelvis CT 12/03/23 17:03 IMPRESSION: Left lower lobe airspace disease. Bilateral nonobstructing nephroliths. Possible mild left hydronephrosis with no definite radiodense ureterolith. Electronically Signed: Basim Aguilar MD at 18:08 EST , Discharge Plan Disposition Disposition: Acute Care Hospital [facility] Discharge Date/Time: 12/03/23 21:00
--- NOTE | 2023-12-03 17:03 | CT_ITS ---
STUDY: CT ABDOMEN AND PELVIS WITHOUT CONTRAST REASON FOR EXAM: Male, 73 years old. urinary outlet obstruction RADIATION DOSAGE (If Supplied By Facility): CTDIvol = ( 6.29 ) mGy, DLP = ( 650.20 ) mGycm TECHNIQUE: Transaxial images were obtained from the dome of the diaphragm to the symphysis pubis without oral contrast, and without intravenous contrast. Sagittal and coronal images were reconstructed. Individualized dose optimization techniques were used for this CT. COMPARISON: January 12, 2023 CT abdomen and pelvis report only FINDINGS: left lower lobe and lingular consolidations. Calcific coronary artery disease. Trace pericardial effusion. Normal liver. Normal gallbladder and extrahepatic biliary system. Normal spleen. Normal pancreas. Normal bilateral adrenal glands. Bilateral nonobstructing nephroliths. Possible mild hydronephrosis on the left but no definite ureterolith noted. Normal visualized stomach. Normal small intestine. Increased stool throughout the colon. Appendix not identified. Calcified plaque along the aorta and its branches. Normal inferior vena cava. Normal retroperitoneum. Rocha catheter and gas in the bladder. Diffuse subcutaneous edema. Mild dextroconvex scoliosis. Multilevel disc space narrowing. CT/Abdomen/Pelvis without Cont IMPRESSION: Left lower lobe airspace disease. Bilateral nonobstructing nephroliths. Possible mild left hydronephrosis with no definite radiodense ureterolith. Electronically Signed: Basim Aguilar MD at 18:08 EST ,
[2023-12-03 17:07] LABS: Absolute Lymphocyte Count 0.76 X10^3/uL (0.83-4.51); Absolute Neutrophil Count 9.7 X10^3/uL (2.0-7.7); Basophil# 0.11 X10^3/uL; Basophil% 0.9 % (0-1); Eosinophil# 0.43 X10^3/uL; Eosinophils% 3.6 % (0-5); Hemoglobin 9.5 g/dL (13.0-16.5); Lymphocyte # 0.76 X10^3/ul (0.83-4.51); Lymphocyte % 6.4 % (19-41); Mean Corp Hgb Conc 31.7 g/dL (32-36); Mean Corpuscular Hgb 32.5 pg (27.0-32.0); Mean Corpuscular Volume 102.7 fL (80-94); Mean Platelet Vol. 10.7 fl (6.2-12.0); Monocyte# 0.83 X10^3/uL; NRBC Flagged by Analyzer 0 % (0-5); Neutrophil # 9.71 X10^3/uL (2.7-7.7); Neutrophil % 81.7 % (47-70); POSITIVE COUNT YES; Platelet Count 339 K/mm3 (150-450); RBC Distribution Width CV 14.6 % (11.6-14.6); RBC Distribution Width SD 54.7 fl (35.1-43.9); Red Blood Count 2.92 M/mm3 (4.6-6.2); White Blood Count 11.9 K/mm3 (4.4-11.0)
[2023-12-03 17:11] LABS: Differential Indicated SCAN CRITERIA MET
[2023-12-03 17:11] LABS: Bacteria 0 SEEN /hpf (None Seen); Mucous, Urine 0 SEEN /hpf (<or=2+); Squamous Epithelial Cells - UA 0 SEEN /hpf (0-5)
[2023-12-03 17:25] LABS: Differential Comment SCANNED
[2023-12-03 17:26] LABS: ALB/GLOB Ratio 0.7 RATIO (0.9-2.4); AST(SGOT) 24 U/L (15-37); Alanine Aminotransfer ALT/SGPT 25 U/L (16-61); Albumin, Serum 3.3 g/dL (3.2-5.0); Alkaline Phosphatase 81 U/L (45-117); Anion Gap 10 (5-15); BUN 102 mg/dL (7-18); BUN/Creat Ratio 11.7 RATIO (10-20); CPK Total, Creatine Kinase 112 U/L (39-308); Calcium,Total 11.6 mg/dL (8.5-10.1); Chloride 105 mmol/L (98-107); Creatinine, Serum 8.75 mg/dL (0.70-1.30); EST Glomerular Filtration Rate 6 mL/min (>60); Est Glom Filt Rate - Afr Amer 8 mL/min (>60); Estimated Creatinine Clearance 7.23 ml/min; Globulin 4.7 g/dL (2.2-4.2); Glucose 104 mg/dL (74-106); Potassium 8.4 mmol/L (3.5-5.1); Sodium Level 134 mmol/L (136-145)
[2023-12-03] MEDS: 0.9% Normal Saline (1000mL) 1,000 ML 999 ML IV (17:26)
[2023-12-03 17:27] LABS: Color, Urine Yellow (Yellow); Glucose, Dipstick Normal (Normal); Ketone-Dipstick Negative (Negative); Leukocyte Esterase-Dipstick 25 /ul (Negative); Nitrite-Dipstick Negative (Negative); Occult Blood-Urine 150 /ul (Negative); Protein-Dipstick 30 mg/dl (Negative); Urine Bilirubin Dipstick Negative (Negative); Urine Clarity Clear (Clear); Urine Urobilinogen Normal (Normal); Urine pH 6.5 (5.0 - 8.0)
[2023-12-03 17:37] LABS: Red Blood Cells-Urine 25-50 SEEN /hpf (0-5); White Blood Cells 0-5 SEEN /hpf (0-5)
--- NOTE | 2023-12-03 19:04 | EKG12_ITS ---
Test Reason : DYSRHYTHMIA Blood Pressure : / mmHG Vent. Rate : 057 BPM Atrial Rate : 057 BPM P-R Int : 162 ms QRS Dur : 100 ms QT Int : 410 ms P-R-T Axes : 045 093 083 degrees QTc Int : 399 ms Sinus bradycardia Rightward axis Nonspecific ST abnormality Abnormal ECG Confirmed by DINORAH WILCOX, RAND ([id number]), web content editor ROCAEL TINEO ([id number]) on 12/04/2023 9:12:12 AM Referred By: Confirmed By:RAND COPELAND MD
--- NOTE | 2023-12-03 19:05 | NURSING ---
Nurse asked Dr. Vega if he was going to treat the patients elevate potassium of >8. He would like to treat with fluids at this time.
--- NOTE | 2023-12-03 19:28 | HP.PCM.HOS_ITS ---
HPI - General General Date of Admission: 12/03/23 Date of Service: 12/03/23 Chief Complaint: Confusion, suprapubic discomfort, decreased UOP. HPI Narrative The patient is a 73 y/o M w/ PMHx: Chronic cognitive impairment of unclear etiology, COPD w/ Chronic Hypoxic Respiratory Failure, Chronic neuropathy, Former tobacco use, GERD w/ Hx GI bleed, HTN, HLD, Chronic anemia who presents to the [facility] ED on 12/03/23 with history of inability to urinate for the last 48 hours although from report possibly dribbling over himself with significant s uprapubic discomfort with no recent fever, chills, nausea or emesis but reported confusion and agitation potentially related to urinary retention prompting family to bring him in for evaluation. In the ED patient with significant urinary retention with Rocha catheter placed with 2 L urine output immediately noted. Patient in the emergency room cannot give any appropriate information about his recent status and is extremely confused although he is able to carry a conversation and is extremely irritable but clearly cannot give exact data. Workup in the ED included T98.1, heart 60, BP 177/104, respiratory rate 15, 90% on 3 L nasal cannula and for review of most recent records patient previously also been on 2.5 to 3 L nasal cannula, CBC with WBC 11.9, hemoglobin 9.5, MCV 102.7, platelet 339 with left shift and lymphopenia, CMP with sodium 134, potassium 8.4 noted to be slightly hemolyzed, carbon oxide 19, anion gap 10, BUN/creatinine 102/8.75, calcium 11.6, hepatic profile not marked appearing, total creatinine kinase 112, urinalysis with specific remedy 1.010, protein 30, ketone negative, occult blood 150, urine nitrite negative, leukocyte esterase 25 with no obvious evidence of UTI, left lower lobe airspace disease, bilateral nonobstructing nephroliths, possible mild left hydronephrosis with no definite radiodense ureterolith. In the ED patient administered 1 L normal saline. Discussed presentation with ED physician and requested stat repeat BMP as well as immediate treatment of hyperkalemia per the order set protocol. [facility] Medical History Arthritis Arthritis Back pain Cardiology follow-up encounter Chronic pain Community acquired pneumonia COPD (chronic obstructive pulmonary disease) Depression Difficulty chewing Drop foot gait Forgetfulness Former smoker GERD (gastroesophageal reflux disease) High cholesterol History of echocardiogram History of GI bleed History of hiatal hernia History of stomach ulcers History of stress test Hyperlipidemia Hypertension IBS (irritable bowel syndrome) Neuropathy On home oxygen therapy Overdose Pneumonia Severe protein-calorie malnutrition Shortness of breath on exertion Syncope Wears dentures Wears glasses Home Medications multivitamin 1 tab PO DAILY supplement 07/01/21 [History Last Taken 10/08/23] pantoprazole 40 mg tablet,delayed release 40 mg PO QAM #90 tabs 10/29/22 [Rx Last Taken 10/09/23] glucosamine-chondroitin 250 mg-200 mg tablet (Osteo Bi-Flex) 2 tab PO DAILY 01/12/23 [History Last Taken 10/08/23] pravastatin 40 mg tablet 40 mg PO QHS #90 tabs 03/13/23 [Rx Last Taken 10/08/23] atenolol 50 mg tablet 50 mg PO DAILY #90 tabs 03/26/23 [Rx Last Taken 10/09/23] docusate sodium 100 mg capsule (Colace) 100 mg PO DAILY Constipation 08/01/23 [History Last Taken 10/08/23] fluticasone propionate 50 mcg/actuation nasal spray,suspension 2 spray intrana chhaya DAILY #16 grams 08/20/23 [Rx Last Taken 10/08/23] albuterol sulfate 90 mcg/actuation aerosol inhaler See Rx Instructions .Route .COMPLEX #8.5 grams 10/22/23 [Rx Last Taken Unknown] carboxymethylcellulose sodium 0.5 % eye drops (Refresh Tears) 1 drp ophthalmic (eye) 4-6XD PRN dry eye(s) 10/22/23 [History Last Taken Unknown] ipratropium 0.5 mg-albuterol 3 mg (2.5 mg base)/3 mL nebulization soln 3 ml inhalation BID shortness of breath or wheezing #180 mL 10/22/23 [Rx Last Taken Unknown] rollator walker with seat #1 ea 11/05/23 [Rx Last Taken Unknown] lisinopril 10 mg tablet 10 mg PO 1600 #90 tabs 11/06/23 [Rx Last Taken Unknown] trazodone 100 mg tablet 100 mg PO QHS #90 tabs 11/06/23 [Rx Last Taken Unknown] hydrocodone 10 mg-acetaminophen 325 mg tablet 1 tab PO TID 1 month #90 tabs 11/20/23 [Rx Last Taken Unknown] Allergy/AdvReac Type Severity Reaction Status Date / Time aspirin Allergy Severe bleeding Verified 11/20/23 11:17 Family History Mother Myocardial infarction, Onset Age: 49 Depression Father Hypertension CVA (cerebral vascular accident), Onset Age: 49 Sister Thyroid disorder Uncle ulcers Surgical History History of bronchoscopy History of esophagogastroduodenoscopy (EGD) History of thoracic surgery Hx of colonoscopy Social History household members: spouse and significant other Smoking Status: Former smoker quit date: 07/14/21 alcohol intake: never substance use type: does not use what type of physical activity do you participate in: other details: yard work, house work ROS Review of Systems ROS Unobtainable: due to encephalopathy Vital Signs Vital Signs Vital Signs: 12/03/23 16:31 12/03/23 16:37 12/03/23 18:53 Temperature 98.1 F 98 F 97.8 F Temperature Source Temporal Temporal Temporal Pulse Rate 62 72 56 L Respiratory Rate 15 15 16 Blood Pressure 177/104 H 177/104 H 160/82 H Blood Pressure Mean 128 128 108 Pulse Ox 93 95 95 Oxygen Delivery Method Nasal Cannula Nasal Cannula Nasal Cannula Oxygen Flow Rate (L/min) 3 3 3 Weight Weight: 149 lb 14.629 oz Body Mass Index (BMI) 20.3 Physical Exam Narrative Physical Examination: General: Awake, alert, oriented to self but cannot give place, month, year, very poor historian and suspect that he is confused given his current situation but also likely underlying chronic impairment as well, does follow commands, seated upright in the ED bed, able to have a discussion but again clearly confused. Skin: Normal color, normal turgor, no icterus, no cyanosis except occasional staged ecchymoses, abrasion. HEENT: AT/NC, EOMI, PERRLA, dry MM, no carotid bruits or JVD noted. Lungs: Diffusely diminished, greater bases, left greater than right, no evidence of any distress, no rales, ronchi or wheezing. Heart: Mildly bradycardic with regular rhythm; no gallop, rub audible. Abdomen: Soft, thin habitus, NTTP except discomfort in the suprapubic region with palpation, ND, hyperactive BS, no HSM. Extremities: No cyanosis, clubbing, or edema, evidence of muscle wasting. Neurological: Patient awake, alert, oriented as noted, cognitive function suspect diminished with cognitive impairment baseline but do feel that patient likely is worse than usual given his acute presentation, pupils equally reactive to light and accommodation, cranial nerves grossly normal, moving all 4 extremities, no focal deficits, strength severely globally decreased. Psychiatric: Affect appears mildly irritable, no acute evidence of depressive or anxiety feelings. Results Lab / Micro Data 12/03/23 16:39 12/03/23 16:39 Labs: Laboratory Results - last 24 hr 12/03/23 16:39: WBC 11.9 H, RBC 2.92 L, Hgb 9.5 L, Hct 30.0 L, MCV 102.7 H, MCH 32.5 H, MCHC 31.7 L, RDW Std Deviation 54.7 H, RDW Coeff of Issa 14.6, Plt Count 339, MPV 10.7, Immature Gran % (Auto) 0.400, Neut % (Auto) 81.7 H, Lymph % (Auto) 6.4 L, [place]min[place] % (Auto) 7.0, Eos % (Auto) 3.6, Baso % (Auto) 0.9, Absolute Neuts (auto) 9.7 H, Absolute Lymphs (auto) 0.76 L, Nucleated RBC % 0, Differential Comment SCANNED, Sodium 134 L, Potassium 8.4 H*, Chloride 105, Carbon Dioxide 19.0 L, Anion Gap 10, BUN 102 H*, Creatinine 8.75 H*, Estim Creat Clear Calc 7.23, Est GFR (MDRD) Af Amer 8 L, Est GFR (MDRD) Non-Af 6 L, B UN/Creatinine Ratio 11.7, Glucose 104, Calcium 11.6 H, Total Bilirubin 0.20, AST 24, ALT 25, Alkaline Phosphatase 81, Total Creatine Kinase 112, Total Protein 8.0, Albumin 3.3, Globulin 4.7 H, Albumin/Globulin Ratio 0.7 L 12/03/23 17:05: Urine Color Yellow, Urine Clarity Clear, Urine pH 6.5, Ur Specific [place] 1.010, Urine Protein 30 H, Urine Glucose (UA) Normal, Urine Ketones Negative, Urine Occult Blood 150 H, Urine Nitrite Negative, Urine Bilirubin Negative, Urine Urobilinogen Normal, Ur Leukocyte Esterase 25 H, Urine RBC 25-50 SEEN, Urine WBC 0-5 SEEN, Ur Squamous Epith Cells 0 SEEN, Urine Bacteria 0 SEEN, Urine Mucus 0 SEEN Imaging Radiology Impression Abdomen/Pelvis CT 12/03/23 17:03 IMPRESSION: Left lower lobe airspace disease. Bilateral nonobstructing nephroliths. Possible mild left hydronephrosis with no definite radiodense ureterolith. Electronically Signed: Basim Aguilar MD at 18:08 EST , Assessment & Plan Assessment/Plan (1) NELSON (acute kidney injury): PLAN: Plan The patient is a 73 y/o M w/ PMHx: Chronic cognitive impairment of unclear etiology, COPD w/ Chronic Hypoxic Respiratory Failure, Chronic neuropathy, Former tobacco use, GERD w/ Hx GI bleed, HTN, HLD, Chronic anemia who presents to the [facility] ED on 12/03/23 with history of inability to urinate for the last 48 hours although from report possibly dribbling over himself with significant suprapubic discomfort with no recent fever, chills, nausea or emesis but reported confusion and agitation potentially related to urinary retention prompting family to bring him in for evaluation. #1. Acute kidney injury with acute urinary retention with bilateral nonobstructing nephroliths and a possible mild left hydronephrosis with no definitive radiodense ureterolith: Acute kidney injury secondary to urinary retention coupled with nephrotoxic regimen, will admit to the ICU given significant hyperkalemia although slighly hemolyzed but suspect still notably elevated, will request rn surgery icu involvement per protocol, as noted admission BUN/Cr 102/8.75, prior baseline creatinine noted to be primarily 0.9-1.0 although more recently 11/20/2023 1.31 thus we will continue to hold nephrotoxic medication, continue hydration/maintain on bicarb drip, continue Rocha catheter placement, add Flomax regimen, will additionally obtain FeNa assessment, will request nephrology involvement early given significant kidney injury noted to be cautious especially as well as hyperkalemia concurrently noted. #2. Hyperkalemia, slightly hemolyzed: Presentation CMP with potassium 8.4, noted to be hemolyzed in part, will repeat stat BMP to assess appropriate level, discussed with ED and initiated on hyperkalemic treatments with planned ICU admission given concern, will repeat BMP serially as needed and continued hyperkalemic protocols if appropriate. #3. Incidentally noted left lower lobe and lingular consolidations, unclear specific etiology, questionable community-acquired pneumonia: Will maintain on chronic home oxygen supplementation, maintain on ATC duonebs, PRN albuterol, until further evaluation will maintain cautiously on IV Rocephin and azithromycin, HOB, IS parameters w/ pending sputum cultures, full respiratory viral panel, procalcitonin and urine antigens. If there is no obvious evidence that this is a bacterial infection we will de-escalate antibiotic therapy. MRSA screen also requested. #4. Chronic COPD with allergic rhinitis with with chronic hypoxic respiratory failure: Will maintain on home oxygen supplementation, hold home regimen in interim transition to ATC duonebs, PRN albuterol, HOB, IS parameters. #5. Chronic macrocytic anemia: Admission hemoglobin 9.5, MCV 102.7, baseline previous hemoglobin noted 9.9 11/20/2023 however previous to this in 2022 hemoglobin ranged 9-12, encourage continued outpatient evaluation, vitamin B12 and folic acid level as well as iron panel requested. #6. Hypertension: Given presentation holding lisinopril, continue atenolol, as needed IV hydralazine. #7. Hyperlipidemia: We will continue patient on statin therapy. #8. Former tobacco usage: Encourage continued tobacco cessation. #9. GERD with history of GI bleed: We will continue patient home PPI. #10. Chronic insomnia: Given presentation we will temporally hold home tr azodone regimen, resume once clinically appropriate. #11. Chart reported history of chronic cognitive impairment: Unclear exact extent or etiology, will continue cautiously monitor, maintain on fall precautions, PT/OT/case management consulted for discharge planning. #12. Chronic back pain with chronic neuropathy: Frequent positional changes encouraged, maintain on fall precautions, does take chronic hydrocodone regimen which will cautiously be continued to avoid withdrawal. #13. DVT prophylaxis: Heparin. #14. CODE status: Patient is unable to answer any healthcare power of compliance attorney or living will questions at this time. Discussed with patient and noted plan to continue and unverified full CODE STATUS with plan discussion with family once able to reach to verify. Charges/Coding Visit Charges Inpatient E&M: 83928 Init Hosp L3
[2023-12-03] MEDS: Calcium Gluconate IV 3 GM in Syringe 1 EACH IV (19:59)
[2023-12-03] MEDS: Dextrose 50%-Water 25 GM/50 ML DISP.SYRIN IV ×2 (20:00→23:05)
[2023-12-03 20:05] LABS: Phosphorus 5.8 mg/dL (2.5-4.9)
[2023-12-03] MEDS: Sodium Bicarbonate 150 MEQ in Dextrose 5%-Water (1000mL Bag) 1,000 ML 250 MEQ IV (20:09)
[2023-12-03] MEDS: Sodium Polystyrene Sulfonate 15 GM/60 ML UDC PO ×2 (20:10→23:19)
[2023-12-03] MEDS: Insulin Lispro 10 UNIT in Syringe 0 ML 6 UNIT IV ×2 (20:10→23:12)
[2023-12-03 20:19] LABS: Procalcitonin 0.14 ng/mL (0.00-0.09)
[2023-12-03 20:21] LABS: Anion Gap 8 (5-15); BUN 98 mg/dL (7-18); BUN/Creat Ratio 12.1 RATIO (10-20); Calcium,Total 11.2 mg/dL (8.5-10.1); Chloride 108 mmol/L (98-107); Creatinine, Serum 8.11 mg/dL (0.70-1.30); EST Glomerular Filtration Rate 7 mL/min (>60); Est Glom Filt Rate - Afr Amer 8 mL/min (>60); Glucose 100 mg/dL (74-106); Magnesium 2.4 mg/dL (1.6-2.6); Sodium Level 137 mmol/L (136-145)
--- NOTE | 2023-12-03 20:38 | ED.RN ---
Report given to ICU. Upon further assessment of the patient, the IV on his left forearm was infiltrated with streaking up his entire arm following the vein. IV discontinued.
--- OUTSIDE RECORDS SUMMARY | 2023-12-03 20:51 | XMS RPT_ITS | CCD ---
Author Name Unknown Address [address] [place] [address] Organization [facility] Care Team Providers Care Clamper Name Role Phone SHALINI FERRARI DO Primary Care Physician SHALINI FERRARI DO Primary Care Unavailable DANIELE RIVAS Admitting Unavai jack VASQUES MD, ALLAN Attending Unavailable CAPRICE WILCOX, ALLAN Referring Unavailable Allergies Allergy Classification Reported Allergen(s) Allergy Type Date of Onset Reaction(s) Facility (1 source) Aspirin; Translations: [aspirin] Drug Allergy [facility] Medications Current Medications Medication Drug Class(es) Dates Sig (Normalized) Sig (Original) acetaminophen 325 mg / HYDROcodone bitartrate 5 mg oral tablet (1 source) Opioid Agonist Start: 01-30-2023 End: 02-02-2023 Mack 325- 5 mg oral tablet Dose = [...] Date Time Vital Sign Value Performing Clinician Casey villeda 01-30-2023 12:48-0400 Body temperature 98.24 [degF] DANIELE SHEARER [facility] 01-30-2023 12:48-0400 Diastolic Blood Pressure Non-Invasive 67 1 DANIELE SHEARER [facility] 01-30-2023 12:48-0400 Heart rate 70 /min DANIELE VORA HOSE TESTER-ACID DUMPER [facility] 01-30-2023 12:48-0400 Reason For Taking VItal Signs DANIELE VORA HOSE TESTER-ACID DUMPER [facility] 01-30-2023 12:48-0400 Respiratory rate 18 /min DANIELE CORNEJON HOSE TESTER-ACID DUMPER [facility] 01-30-2023 12:48-0400 Systolic Blood Pressure Non-Invasive 133 1 DANIELEGUMARO CORNEJON HOSE TESTER-ACID DUMPER [facility] 01-30-2023 06:40-0400 Body temperature 98.24 [degF] DANIELE JANENEN HOSE TESTER-ACID DUMPER [facility] 01-30-2023 06:40-0400 Diastolic Blood Pressure Non-Invasive 72 1 DANIELE CORNEJON HOSE TESTER-ACID DUMPER [facility] 01-30-2023 06:40-0400 Heart rate 71 /min DANIELEGUMARO LARANEN HOSE TESTER-ACID DUMPER [facility] 01-30-2023 06:40-0400 Reason For Taking VItal Signs DANIELE VORA HOSE TESTER-ACID DUMPER [facility] 01-30-2023 06:40-0400 Respiratory rate 18 /min DANIELEGUMARO CORNEJON HOSE TESTER-ACID DUMPER [facility] 01-30-2023 06:40-0400 Systolic Blood Pressure Non-Invasive 145 1 DANIELEGUMARO LARANEN HOSE TESTER-ACID DUMPER [facility] 01-30-2023 04:20-0400 Body temperature 98.24 [degF] DANIELE JANENEN HOSE TESTER-ACID DUMPER [facility] 01-30-2023 04:20-0400 Diastolic Blood Pressure Non-Invasive 76 1 DANIELE CORNEJOGiovanna HOSE TESTER-ACID DUMPER [facility] 01-30-2023 04:20-0400 Heart rate 74 /min DANIELE CORNEJOGiovanna HOSE TESTER-ACID DUMPER [facility] 01-30-2023 04:20-0400 Reason For Taking VItal Signs DANIELE LARASHILPA HOSE TESTER-ACID DUMPER [facility] 01-30-2023 04:20-0400 Respiratory rate 18 /min DANIELE LARASHILPA HOSE TESTER-ACID DUMPER [facility] 01-30-2023 04:20-0400 Systolic Blood Pressure Non-Invasive 129 1 DANIELE CORNEJOGiovanna HOSE TESTER-ACID DUMPER [facility] 01-30-2023 00:08-0400 Heart rate 70 /min DANIELE CORNEJOGiovanna HOSE TESTER-ACID DUMPER [facility] 01-29-2023 19:24-0400 Heart rate 66 /min DANIELE CORNEJOGiovanna HOSE TESTER-ACID DUMPER [facility] 01-29-2023 16:21-0400 Heart rate 60 /min DANIELE CORNEJOGiovanna HOSE TESTER-ACID DUMPER [facility] 01-29-2023 06:45-0400 Heart rate 65 /min DANIELEGUMARO CORNEJON HOSE TESTER-ACID DUMPER [facility] 01-28-2023 18:02-0400 Body height 185.4 cm DANIELEGUMARO CORNEJOGiovanna HOSE TESTER-ACID DUMPER [facility] 01-28-2023 18:02-0400 Body weight 68.1 kg DANIELE VORA HOSE TESTER-ACID DUMPER [facility] 01-28-2023 18:02-0400 Body weight 19.81 kg/m2 DANIELEGUMARO LARASHILPA HOSE TESTER-ACID DUMPER [facility] Encounters Encounter Date Encounter Type Care Provider Facility Start: 01-28-2023 End: 01-30-2023 ambulatory SHALINI FERRARI DO Facility:B Start: 01-28-2023 End: 01-30-2023 Observation DANIELE VORA HOSE TESTER-ACID DUMPER [facility] Procedures Date Procedure Procedure Detail Performing Clinician Empyema (disorder) DANIELE HAYWOOD HOSE TESTER-ACID DUMPER Immunizations Immunization Date Immunization Notes Care Provider [facility] 10-25-2021 pneumococcal polysaccharide vaccine, 23 valent DANIELE VORA HOSE TESTER-ACID DUMPER [facility] 10-13-2021 zoster vaccine recombinant DANIELE JANESHILPA HOSE TE[employer]-ACID DUMPER [facility] 09-14-2021 SARS-CoV-2 mRNA (tozinameran) vaccine DANIELEGUMARO LARASHILPA HOSE TE[employer]-ACID DUMPER [facility] 08-09-2021 zoster vaccine recombinant DANIELE JANESHILPA HOSE TESTER-ACID DUMPER [facility] 01-13-2021 SARS-CoV-2 mRNA (tozinameran) vaccine DANIELE JANESHILPA HOSE TESTER-ACID DUMPER [facility] 12-23-2020 SARS-CoV-2 mRNA (tozinameran) vaccine DANIELE JANESHILPA HOSE TESTER-ACID DUMPER [facility] Payers Date Payer Category Payer Medicaid [id number] 2021 Medicare [id number] 1950 Unknown [id number] Social History Date Type Detail Facility Start: 05-19-2021 Tobacco smoking status Smokes tobacco daily (finding) [facility] Sex Assigned At Male [facility] Functional Status Date Assessment Result Facility 01-30-2023 Functional Status Room check performed [facility] 01-30-2023 Functional Status 20 [facility] 01-29-2023 Functional Status Dinner Percent [facility] 01-29-2023 Functional Status Front wheeled walker [facility] 01-29-2023 Functional Status Lunch Percent 75 [facility] 01-29-2023 Functional Status Supervised [facility] 01-29-2023 Functional Status Multilevel home [facility] 01-28-2023 Functional Status Sensory Deficits None A [facility] 01-28-2023 Functional Status Minimum assistance [facility] Mental Status Date Assessment Result Facility 01-30-2023 Mental Status Orientation Not oriented to situation [facility] 01-30-2023 [facility] 01-30-2023 Mental Status [facility] 01-28-2023 Mental Status Orientation Asse ssment Not oriented to place [facility] Clinical Notes 01-28-2023 to 02-02-2023 [...] Locations *1: This test was performed at: [address], [facility] , [facility] ([place]) 02-02-2023 Note . MICRO - Microbiology PROCEDURE: [...] Locations *1: This test was performed at: [address], [address] [place] [address] ([place]) 01-30-2023 Nurse Discharge summary Discharged to [facility]. Escorted to the exit via w/c per BLAYNE Toussaint. Transported by Significant other, Judy. Left at 1425. [facility] 01-30-2023 Note Discharge Instructions Thank you for allowing [facility] to assist you with your healthcare needs. [...] follow up with PCP after d/c. Where: [facility] [address] [place] [address] [place] [address] [phone] Follow Up with Go to emergency room if symptoms worsen When Within 2-4 days Follow Up with SHALINI FERRARI DO When Within 2-4 days Where: [facility] On license of [facility] [place] [address]- [phone] The Following Activity and Diet Have Been [...] Signed By - Ordered -- 01/30/23 8:11:00 EDTDIONY RACHEL L APRN-SOLE Transfer of Care Prognosis - Ordered [...] When Why Instructions Last Dose Changed acetaminophen-hydrocodone (Mack 325- 5 mg oral tablet) 1 tab(s) [...] in vomit, stools (black or red color) 4117-6625 [employer]. [address] [place] [address]. All rights reserved. This information is not intended as a substitute for professional medical care. Always follow your healthcare professional's instructions. Additional Information VACCINATE! IT SAVES LIVES! Members of the community who have not yet received the COVID-19 vaccine and would like to receive it can visit one of [facility] vaccine clinics. There are many vaccine clinic locations within the [facility]. For locations and available times, please visit [email or web address] .[email or web address] It is important to note that some COVID mobile vaccine clinics are held outdoors and may be canceled in rainy or stormy conditions. To learn more about pediatric vaccinations (ages 5-11), we invite you to visit the [facility] webpage. [email or web address]/page [email or web address]-Hdjch-Ailirhrojbz-Frequently -Asked-Questions.html To learn more about the COVID-19 vaccine, we invite you to visit the CDC website for a list of frequently asked questions. https://www.cdc.gov/coronavirus/201 9-ncov/vaccines/faq.html [facility] Patient Portal Access Instructions: Stay connected with your healthcare team and access your personal medical information anytime with the [facility] Patient Portal.If you would like a full copy of your medical records, please contact the [facility] Medical Records Department, Saturday through Saturday between 8a.m. and 4:30p.m. Please follow the directions below to access the portal: 1.Access the email account you provided upon registration to the [facility].2.Look for an invitation email from [facility].3.Open the email and access the invitation link: Accept Invitation to [facility]4.Fill in the required cuellar to create your account. Sign into [email or web address] with your username and password that you [...] you will allow to register on the [facility] Patient Portal for access to your information. You can also access the [facility] Patient Portal on the [employer] а[employer]. Simply click on Health Records under Health Data and then click on the [employer] logo. HOW TO SAFELY DISPOSE OF PRESCRIPTION [...] Call your local pharmacy or go to http://bit.ly/2G9Xx3c to find one close to you.3.Make use of household items: Use cat litter or old coffee grounds to dispose medications if other options are not available. Mix your drugs with these household products, seal them in an airtight container and throw it into the garbage. Call [facility]: [phone] to be sure your drugs can be [...] been reviewed and explained to me and I,PEDRO ALBRECHT understand my current condition and have read and understand these discharge instructions. I have received a written copy of the plan/instructions. If I have questions, I am aware that I should contact my doctor. Patient/Package Sealer Signature: ____ Date/Time: Relationship to Patient: __ Witness Name/Signature: Date/Time: [facility] 01-30-2023 Note . MICRO - [...] Locations *1: This test was performed at: [facility], [address] [place] [address], [facility] , [facility] ([place]) 01-29-2023 Note Date of Service 01/29/2023 Chief Complaint Weakness and falls Subjective 72-year-old male with past medical history significant for arthritis, chronic pain, depression, GERD, gastric ulcers, IBS, kidney stones, neuropathy, tobacco use. Patient presented to [facility] emergency department on 01/28/2023 with increased falls and weakness. Patient was discharged from [facility] on 01/16/2023 for gastroenteritis and COVID-19 pneumonia [...] medications that increases risk for falls including Mack 10/325, cyclobenzaprine, gabapentin. Check orthostatic vital signs. Decrease Mack. Hold cyclobenzaprine. PCPs note was reviewed from [...] Urinalysis show NGTD. Patient was discharged from [facility] for pneumonia. He completed a course of [...] 02:48 PM Digitally Signed by DANIELE VORA on 01/30/2023 07:26 AM [facility] 01-29-2023 Note ORIGINAL EXAMINATION: TWO [...] By: Elmer Vaughan MD Electronically signed By Elmre Vaughan MD Dictated Date: 01/29/2023 6:05:50 AM Prelim Date: 01/29/2023 6:12:42 AM Sign Date: 01/29/2023 6:12:42 AM Ordering Provider: DANIELE LARARIGiovanna [facility] 01-29-2023 Note ORIGINAL EXAMINATION: TWO [...] Date: 01/29/2023 6:12:42 AM [facility]ing [facility] 01-28-2023 Note Date of Service 01/28/2023 Chief Complaint Patient presents for AMS. History of Present Illness 72-year-old male with past medical history significant for arthritis, chronic pain, depression, GERD, gastric ulcers, IBS, kidney stones, neuropathy, tobacco use. Patient presented to [facility] emergency department on 01/28/2023 with increased falls and weakness. Patient was discharged from [facility] on 01/16/2023 for gastroenteritis and COVID-19 pneumonia [...] medications that increases risk for falls including Mack 10/325, cyclobenzaprine, gabapentin. Additionally he is taking atenolol. Check orthostatic vital signs. Decrease Mack. Hold cyclobenzaprine. Consult PT and OT. Chronic pain as above. Neuropathy consider decreasing gabapentin due to frequent falls. Will monitor. Patient was discharged from [facility] for pneumonia. He completed a course of [...] Constant Order Digitally Signed by DANIELE VORA on 01/28/2023 05:30 PM [facility] 01-28-2023 Hospital Discharge instructions Patient Education 01/28/2023 [...] in vomit, stools (black or red color) [id number] [employer]. [address] [place] [address]. All rights reserved. This information is not intended as a substitute for professional medical care. Always follow your healthcare professional's instructions. Follow Up Care 01/28/2023 13:32:30 With:SHALINI FERRARI DO Address: [facility] [address] [address] [phone] When:3-5 days Comments:Please schedule follow up with PCP after d/c. With:Go to emergency room if symptoms worsen Address:Unknown When:2-4 days With:SHALINI FERRARI DO Address: [facility] [address] [address]- [phone] When:2-4 days [facility] 01-28-2023 Note ORIGINAL HISTORY: Falls [...] Sign Date: 01/28/2023 3:03:49 PM Ordering Provider: [facility] 01-28-2023 Note ORIGINAL HISTORY: Falls [...] Sign Date: 01/28/2023 3:02:56 PM Ordering Provider: [facility] 01-28-2023 Note ORIGINAL HISTORY: Altered [...] Sign Date: 01/28/2023 2:51:30 PM Ordering Provider: [facility] 01-28-2023 Note ORIGINAL HISTORY: Falls [...] Sign Date: 01/28/2023 3:03:49 PM Ordering Provider: [facility] 01-28-2023 Note ORIGINAL HISTORY: Falls [...] Sign Date: 01/28/2023 3:02:56 PM Ordering Provider: [facility] 01-28-2023 Note ORIGINAL HISTORY: Falls [...] Sign Date: 01/28/2023 2:45:20 PM Ordering Provider: [facility] 01-28-2023 Note ORIGINAL HISTORY: Falls [...] Sign Date: 01/28/2023 2:45:20 PM Ordering Provider: [facility] 01-28-2023 Note ORIGINAL HISTORY: Altered mental status COMPARISON: 14 June 2021 FINDINGS: The film is rotated. There are mild streaky and patchy airspace opacities in the left lower lung. The pulmonary vasculature is unremarkable in appearance. The cardiac silhouette is within normal size limits. IMPRESSION: Mild left consolidation and or atelectasis. This is mildly increased relative the comparison. Interpreted by: Leti Rodsa MD Preliminary Report By: Leti Rodas MD Electronically signed By Leti Rodas MD Dictated Date: 01/28/2023 2:45:29 PM Prelim Date: 01/28/2023 2:51:30 PM Sign Date: 01/28/2023 2:51:30 PM Ordering Provider: REGINA STEVENSON [facility] 1. Weakness 2. Falls 3. Chronic pain Weakness and falls- Pt has had 9 falls in the past week. He states sometimes he is weak and falls sometimes he gets dizzy. Patient is on multiple medications that increases risk for falls including Mack 10/325, cyclobenzaprine, gabapentin. Additionally he is taking atenolol. Check orthostatic vital signs. Decrease Mack. Hold cyclobenzaprine. Consult PT and OT. Chronic pain as above. Neuropathy consider decreasing gabapentin due to frequent falls. Will monitor. Patient was discharged from [facility] for pneumonia. He completed a course of [...] and may include grammatical and/or spelling errors. [facility] Hospital course Narrative No data available for this section [facility] Summary Purpose Family History No Family History Records Found Advance Directives No Advanced Directives Records Found Additional Source Comments Patient Care team informatio n (unrecognized section and content) Care Team Personnel Name: SHALINI FERRARI DO Member Role: Primary Care Physician Address: Address: [facility] [address] [place] [address]- [place] Name: Macarena Agarwal RN Position: AO RN Member Role: ED RN Name: Yarelis Ford Coder Position: HIM: Coders Member Role: HIM: Coders Name: REGINA STEVENSON DO Position: ED Physician Member Role: ED Physician Address: Address: [address] [place] [address]- Care Team Related Persons Name: JUDY TANG [...] BE BASED ON THE PRIMARY CLINICAL RECORDS. [facility] [employer] provides no warranty or guarantee of the accuracy or completeness of information in this document.
[2023-12-03 21:50] LABS: Urine Sodium 66 mmol/L (Not Establ.)
[2023-12-03 22:12] LABS: Anion Gap 8 (5-15); BUN 91 mg/dL (7-18); BUN/Creat Ratio 12.1 RATIO (10-20); Calcium,Total 11.8 mg/dL (8.5-10.1); Chloride 109 mmol/L (98-107); Creatinine, Serum 7.54 mg/dL (0.70-1.30); EST Glomerular Filtration Rate 8 mL/min (>60); Est Glom Filt Rate - Afr Amer 9 mL/min (>60); Glucose 57 mg/dL (74-106); Potassium 7.5 mmol/L (3.5-5.1); Sodium Level 139 mmol/L (136-145); Vitamin B12 1383 pg/mL (211-911)
[2023-12-03] MEDS: Albuterol 2.5 MG/3 ML VIAL.NEB. 10 MG INHALATION ×2 (22:33→23:15)
[2023-12-03] MEDS: Calcium Gluconate 1 GM/10 ML Vial 0.5 GM IVP (23:05)
[2023-12-03 23:07] LABS: M R Staph aureus DNA By PCR Negative (Negative); Probe Check PASS; Specimen Processing Control PASS
[2023-12-03] MEDS: 0.9% Saline Lock 10 ML Syringe IV ×2 (23:11→23:21)
[2023-12-03] MEDS: Tamsulosin HCl 0.4 MG Capsule 0.400000000000000022 MG PO (23:16)
[2023-12-03] MEDS: Heparin Injection (Vial) 5,000 UNIT/ML VIAL 5000 UNIT SC (23:16)
[2023-12-03] MEDS: Pravastatin 40 MG Tablet PO (23:16)
[2023-12-03] MEDS: Azithromycin 500 MG in Dextrose 5%-Water (250mL Bag) 250 ML 250 MG IV (23:19)
[2023-12-03] MEDS: Ceftriaxone 1 GM/50 ML BAG IV (23:19)
[2023-12-03 23:53] LABS: Bedside Glucose 80 mg/dL (74-106)
[2023-12-04] VITALS (27 sets, daily range): BP systolic 114–143; BP diastolic 51–109; PULSE 57–91; RESP 12–22; TEMP 36.2–37.4; O2SAT 90–100; BMI 18.3
[2023-12-04] MEDS: Sodium Bicarbonate 150 MEQ in Dextrose 5%-Water (1000mL Bag) 1,000 ML 125 MEQ IV ×2 (01:06→09:40)
[2023-12-04] MEDS: 0.9% Saline Lock 10 ML Syringe IV ×4 (01:07→16:47)
[2023-12-04 02:18] LABS: Anion Gap 9 (5-15); BUN 88 mg/dL (7-18); BUN/Creat Ratio 12.2 RATIO (10-20); Calcium,Total 11.9 mg/dL (8.5-10.1); Chloride 107 mmol/L (98-107); Creatinine, Serum 7.23 mg/dL (0.70-1.30); EST Glomerular Filtration Rate 8 mL/min (>60); Est Glom Filt Rate - Afr Amer 10 mL/min (>60); Estimated Creatinine Clearance 7.83 ml/min; Glucose 91 mg/dL (74-106); Sodium Level 140 mmol/L (136-145)
[2023-12-04] MEDS: Insulin Lispro 10 UNIT in Syringe 0 ML 6 UNIT IV (02:42)
[2023-12-04] MEDS: Dextrose 50%-Water 25 GM/50 ML DISP.SYRIN IV (02:42)
[2023-12-04 04:52] LABS: Absolute Neutrophil Count 5.8 X10^3/uL (2.0-7.7); Basophil# 0.06 X10^3/uL; Basophil% 0.7 % (0-1); Eosinophil# 0.48 X10^3/uL; Eosinophils% 5.8 % (0-5); Hematocrit 23.3 % (40-54); Hemoglobin 7.6 g/dL (13.0-16.5); Lymphocyte % 12.1 % (19-41); Mean Corp Hgb Conc 32.6 g/dL (32-36); Mean Corpuscular Hgb 32.5 pg (27.0-32.0); Mean Corpuscular Volume 99.6 fL (80-94); Mean Platelet Vol. 9.3 fl (6.2-12.0); Monocyte# 0.89 X10^3/uL; Monocyte% 10.8 % (0-10); NRBC Flagged by Analyzer 0 % (0-5); Neutrophil # 5.77 X10^3/uL (2.7-7.7); Neutrophil % 70.1 % (47-70); Platelet Count 277 K/mm3 (150-450); RBC Distribution Width CV 14.6 % (11.6-14.6); RBC Distribution Width SD 52.3 fl (35.1-43.9); Red Blood Count 2.34 M/mm3 (4.6-6.2); White Blood Count 8.2 K/mm3 (4.4-11.0)
[2023-12-04 05:08] LABS: ALB/GLOB Ratio 0.7 RATIO (0.9-2.4); AST(SGOT) 14 U/L (15-37); Alanine Aminotransfer ALT/SGPT 20 U/L (16-61); Albumin, Serum 2.6 g/dL (3.2-5.0); Alkaline Phosphatase 61 U/L (45-117); Anion Gap 7 (5-15); BUN 80 mg/dL (7-18); BUN/Creat Ratio 13.3 RATIO (10-20); Calcium,Total 10.5 mg/dL (8.5-10.1); Chloride 106 mmol/L (98-107); EST Glomerular Filtration Rate 10 mL/min (>60); Est Glom Filt Rate - Afr Amer 12 mL/min (>60); Estimated Creatinine Clearance 9.43 ml/min; Ferritin 137 ng/mL (26-388); Globulin 3.7 g/dL (2.2-4.2); Glucose 58 mg/dL (74-106); Iron 40 ug/dL (65-175); Iron Binding Capacity,Total 180 ug/dL (250-450); PERCENT IRON SATURATION 22.2 % (15.0-55.0); Potassium 5.1 mmol/L (3.5-5.1); Protein, Total 6.3 g/dL (6.4-8.2); Sodium Level 141 mmol/L (136-145)
[2023-12-04] MEDS: Pantoprazole Sodium 40 MG in 0.9% Normal Saline (100mL MB+) 100 ML 330 MG IV ×2 (06:52→20:44)
[2023-12-04 06:55] LABS: Bedside Glucose 63 mg/dL (74-106)
[2023-12-04] MEDS: Ipratropium/Albuterol Sulfate 3 ML AMPUL.NEB INHALATION ×3 (07:18→19:02)
[2023-12-04] MEDS: Ceftriaxone 1 GM/50 ML BAG IV (08:31)
[2023-12-04] MEDS: Fluticasone 0.05% 1 SPRAY NASAL.SRY 2 SPRAY NASAL (08:32)
[2023-12-04] MEDS: Azithromycin 500 MG in Dextrose 5%-Water (250mL Bag) 250 ML 250 MG IV (09:40)
[2023-12-04] MEDS: Atenolol 50 MG Tablet PO (09:40)
--- NOTE | 2023-12-04 09:54 | EX.PCM.CONCC ---
Assessment & Plan Assessment/Plan (1) NELSON (acute kidney injury): PLAN: Plan RECOMMENDATIONS: 1. Continue sodium bicarb and infusion, pending evaluation by nephrology. 2. Continue empiric antibiotics. 3. Continue scheduled bronchodilators. 4. Supplemental oxygen to maintain saturations at or above 90%. 5. Send type and screen. Transfuse if hemoglobin drops below 7 g/dL. 6. Continue PPI therapy. IMPRESSIONS: 1. Acute kidney injury/hyperkalemia Likely multifactorial in etiology. Hyperkalemia has resolved with improving renal parameters with IV fluid resuscitation. Nephrology consultation is currently pending. Continue supportive care. 2. Metabolic encephalopathy Most likely secondary to presenting uremia. The patient is still somewhat confused, which I suspect will improve as his kidney function improves as well. 3. History of COPD with left lower lobe consolidation The patient is stable from a respiratory perspective. Plan to continue empiric antibiotics along with scheduled bronchodilators. Supplemental oxygen will be continued to maintain saturations at or above 90%. 4. Anemia The patient has known chronic anemia with a baseline hemoglobin in the 9 to 11 g/dL range. His hemoglobin has dropped to 7.6 g/dL this morning. Type and screen will be sent. Will continue to monitor H&H and transfuse if hemoglobin drops below 7 g/dL. In the interim, continue PPI therapy. If anemia worsens, gastroenterology consultation will be obtained. 5. History of tobacco dependency in remission/GERD/hypertension/hyperlipidemia Complicates care, management, recovery and prognosis. Continue home medications as indicated. This note was generated with [employer] dictation software. It may contain incorrect words, spelling, and punctuation that were not noted in checking the note before signing. HPI Consult Data Date of Consult: 12/04/23 HPI Narrative Reason for Consultation: Acute kidney injury and hyperkalemia HPI Narrative: The patient is a 73-year-old male, with a history as outlined below, who presented to the emergency department via EMS on December 03 with abdominal discomfort, decreased urine output and confusion. The patient is familiar to me from the pulmonary medicine office due to a history of COPD and nicotine dependence, in remission. The patient's medical history is also significant for GERD, history of GI bleeding and chronic anemia. On presentation to the emergency department, the patient was noted to be afebrile hemodynamically stable. Initial laboratory evaluation revealed a white blood cell count of 12,000 with a hemoglobin of 9.5 g/dL. Chemistry profile was notable for a sodium of 134, potassium of 8.4, bicarbonate of 19 and creatinine of 8.75, with a BUN of 102. Urine analysis was largely unrevealing. Respiratory viral panel was negative. CT abdomen/pelvis demonstrated left lower lobe airspace disease along with bilateral nonobstructing nephroliths and possible mid left hydronephrosis. The patient received supplemental IV fluid hydration with medical management of his hyperkalemia. He was subsequently admitted to the medical intensive care unit. Overnight, the patient has remained clinically stable. His hemoglobin has dropped to 7.6 g/dL this morning. His hyperkalemia has resolved. BUN and creatinine have improved to 80 and 6.0, respectively. Nephrology consultation is pending. [facility] Medical History Arthritis Arthritis Back pain Cardiology follow-up encounter Chronic pain Community acquired pneumonia COPD (chronic obstructive pulmonary disease) Depression Difficulty chewing Drop foot gait Forgetfulness Former smoker GERD (gastroesophageal reflux disease) High cholesterol History of echocardiogram History of GI bleed History of hiatal hernia History of stomach ulcers History of stress test Hyperlipidemia Hypertension IBS (irritable bowel syndrome) Neuropathy On home oxygen therapy Overdose Pneumonia Severe protein-calorie malnutrition Shortness of breath on exertion Syncope Wears dentures Wears glasses Home Medications multivitamin 1 tab PO DAILY supplement 07/01/21 [History Last Taken 10/08/23] pantoprazole 40 mg tablet,delayed release 40 mg PO QAM #90 tabs 10/29/22 [Rx Last Taken 10/09/23] glucosamine-chondroitin 250 mg-200 mg tablet (Osteo Bi-Flex) 2 tab PO DAILY 01/12/23 [History Last Taken 10/08/23] pravastatin 40 mg tablet 40 mg PO QHS #90 tabs 03/13/23 [Rx Last Taken 10/08/23] atenolol 50 mg tablet 50 mg PO DAILY #90 tabs 03/26/23 [Rx Last Taken 10/09/23] docusate sodium 100 mg capsule (Colace) 100 mg PO DAILY Constipation 08/01/23 [History Last Taken 10/08/23] fluticasone propionate 50 mcg/actuation nasal spray,suspension 2 spray intranasal DAILY #16 grams 08/20/23 [Rx Last Taken 10/08/23] albuterol sulfate 90 mcg/actuation aerosol inhaler See Rx Instructions .Route .COMPLEX #8.5 grams 10/22/23 [Rx Last Taken Unknown] carboxymethylcellulose sodium 0.5 % eye drops (Refresh Tears) 1 drp ophthalmic (eye) 4-6XD PRN dry eye(s) 10/22/23 [History Last Taken Unknown] ipratropium 0.5 mg-albuterol 3 mg (2.5 mg base)/3 mL nebulization soln 3 ml inhalation BID shortness of breath or wheezing #180 mL 10/22/23 [Rx Last Taken Unknown] rollator walker with seat #1 ea 11/05/23 [Rx Last Taken Unknown] lisinopril 10 mg tablet 10 mg PO 1600 #90 tabs 11/06/23 [Rx Last Taken Unknown] trazodone 100 mg tablet 100 mg PO QHS #90 tabs 11/06/23 [Rx Last Taken Unknown] hydrocodone 10 mg-acetaminophen 325 mg tablet 1 tab PO TID 1 month #90 tabs 11/20/23 [Rx Last Taken Unknown] Allergy/AdvReac Type Severity Reaction Status Date / Time aspirin Allergy Severe bleeding Verified 11/20/23 11:17 Family History Mother Myocardial infarction, Onset Age: 49 Depression Father Hypertension CVA (cerebral vascular accident), Onset Age: 49 Sister Thyroid disorder Uncle ulcers Surgical History History of bronchoscopy History of esophagogastroduodenoscopy (EGD) History of thoracic surgery Hx of colonoscopy Social History household members: spouse and significant other Smoking Status: Former smoker quit date: 07/14/21 alcohol intake: never substance use type: does not use what type of physical activity do you participate in: other details: yard work, house work ROS ROS Narrative 10 systems were reviewed with pertinent positives as noted in the HPI above. Physical Exam Const alert and no apparent distress Constitutional Narrative: Still somewhat confused and disoriented. Frail and cachectic in appearance. HEENT normocephalic and head/scalp atraumatic Eyes PERRL, EOMs intact bilaterally and conjunctivae normal Neck supple General: trachea midline Chest inspection of chest normal Resp normal respiratory effort Auscultation: diminished lung sounds; Negative for rales, rhonchi or wheezes Cardio regular rate and regular rhythm GI normal to inspection, nondistended, normoactive bowel sounds Extremity no clubbing, cyanosis or edema Skin no rashes or lesions noted Neuro CN's II-XII intact bilaterally and no focal motor deficits Psych Mood & Affect: flat affect Lab / Micro Data 12/04/23 09:50 12/04/23 04:40 Labs: Laboratory Results - last 24 hr 12/03/23 16:39: WBC 11.9 H, RBC 2.92 L, Hgb 9.5 L, Hct 30.0 L, MCV 102.7 H, MCH 32.5 H, MCHC 31.7 L, RDW Std Deviation 54.7 H, RDW Coeff of [place] 14.6, Plt Count 339, MPV 10.7, Immature Gran % (Auto) 0.400, Neut % (Auto) 81.7 H, Lymph % (Auto) 6.4 L, [place] % (Auto) 7.0, Eos % (Auto) 3.6, Baso % (Auto) 0.9, Absolute Neuts (auto) 9.7 H, Absolute Lymphs (auto) 0.76 L, Nucleated RBC % 0, Differential Comment SCANNED, Sodium 134 L, Potassium 8.4 H*, Chloride 105, Carbon Dioxide 19.0 L, Anion Gap 10, BUN 102 H*, Creatinine 8.75 H*, Estim Creat Clear Calc 7.23, Est GFR (MDRD) Af Amer 8 L, Est GFR (MDRD) Non-Af 6 L, BUN/Creatinine Ratio 11.7, Glucose 104, Calcium 11.6 H, Total Bilirubin 0.20, AST 24, ALT 25, Alkaline Phosphatase 81, Total Creatine Kinase 112, Total Protein 8.0, Albumin 3.3, Globulin 4.7 H, Albumin/Globulin Ratio 0.7 L 12/03/23 17:05: Urine Color Yellow, Urine Clarity Clear, Urine pH 6.5, Ur Specific [place] 1.010, Urine Protein 30 H, Urine Glucose (UA) Normal, Urine Ketones Negative, Urine Occult Blood 150 H, Urine Nitrite Negative, Urine Bilirubin Negative, Urine Urobilinogen Normal, Ur Leukocyte Esterase 25 H, Urine RBC 25-50 SEEN, Urine WBC 0-5 SEEN, Ur Squamous Epith Cells 0 SEEN, Urine Bacteria 0 SEEN, Urine Mucus 0 SEEN, Ur Random Sodium 66, Urine Creatinine 48.80 12/03/23 19:44: Sodium 137, Potassium 8.0 H*, Chloride 108 H, Carbon Dioxide 21.0, Anion Gap 8, BUN 98 H, Creatinine 8.11 H*, Estim Creat Clear Calc 7.80, Est GFR (MDRD) Af Amer 8 L, Est GFR (MDRD) Non-Af 7 L, BUN/Creatinine Ratio 12.1, Glucose 100, Calcium 11.2 H, Phosphorus 5.8 H, Magnesium 2.4, Procalcitonin 0.14 H 12/03/23 21:40: Sodium 139, Potassium 7.5 H*, Chloride 109 H, Carbon Dioxide 22.0, Anion Gap 8, BUN 91 H, Creatinine 7.54 H*, Estim Creat Clear Calc 7.50, Est GFR (MDRD) Af Amer 9 L, Est GFR (MDRD) Non-Af 8 L, BUN/Creatinine Ratio 12.1, Glucose 57 L, Calcium 11.8 H, Vitamin B12 1383 H, Folate 52.70, MRSA (PCR) Negative 12/03/23 23:18: POC Glucose 80 12/04/23 00:53: Sodium Cancelled, Potassium Cancelled, Chloride Cancelled, Carbon Dioxide Cancelled, Anion Gap Cancelled, BUN Cancelled, Creatinine Cancelled, Estim Creat Clear Calc Cancelled, Est GFR (MDRD) Af Amer Cancelled, Est GFR (MDRD) Non-Af Cancelled, BUN/Creatinine Ratio Cancelled, Glucose Cancelled, Calcium Cancelled 12/04/23 01:25: Sodium 140, Potassium 6.0 H*, Chloride 107, Carbon Dioxide 24.0, Anion Gap 9, BUN 88 H, Creatinine 7.23 H, Estim Creat Clear Calc 7.83, Est GFR (MDRD) Af Amer 10 L, Est GFR (MDRD) Non-Af 8 L, BUN/Creatinine Ratio 12.2, Glucose 91, Calcium 11.9 H 12/04/23 04:40: WBC 8.2, RBC 2.34 L, Hgb 7.6 L, Hct 23.3 L, MCV 99.6 H, MCH 32.5 H, MCHC 32.6, RDW Std Deviation 52.3 H, RDW Coeff of [place] 14.6, Plt Count 277, MPV 9.3, Immature Gran % (Auto) 0.500, Neut % (Auto) 70.1 H, Lymph % (Auto) 12.1 L, [place] % (Auto) 10.8 H, Eos % (Auto) 5.8 H, Baso % (Auto) 0.7, Absolute Neuts (auto) 5.8, Absolute Lymphs (auto) 1.00, Nucleated RBC % 0, Sodium 141, Potassium 5.1, Chloride 106, Carbon Dioxide 28.0, Anion Gap 7, BUN 80 H, Creatinine 6.00 H, Estim Creat Clear Calc 9.43, Est GFR (MDRD) Af Amer 12 L, Est GFR (MDRD) Non-Af 10 L, BUN/Creatinine Ratio 13.3, Glucose 58 L, Calcium 10.5 H, Iron 40 L, TIBC 180 L, Iron Saturation 22.2, Ferritin 137, Total Bilirubin 0.30, AST 14 L, ALT 20, Alkaline Phosphatase 61, Total Protein 6.3 L, Albumin 2.6 L, Globulin 3.7, Albumin/Globulin Ratio 0.7 L 12/04/23 06:09: POC Glucose 63 L Micro: Microbiology 12/03/23 22:30 Mucosa - Nasopharyngeal Respiratory Panel (PCR) - Final 12/03/23 17:05 Urine Catheter - Catheter Legionella Antigen - Final 12/03/23 17:05 Urine Catheter - Catheter Streptococcus pneumoniae Antigen (M - Final Imaging Radiology Impression Abdomen/Pelvis CT 12/03/23 17:03 IMPRESSION: Left lower lobe airspace disease. Bilateral nonobstructing nephroliths. Possible mild left hydronephrosis with no definite radiodense ureterolith. Electronically Signed: Basim Aguilar MD at 18:08 EST , Charges/Coding Visit Charges Inpatient E&M: 74386 Init Hosp L3
--- NOTE | 2023-12-04 10:01 | PCM.CONS.R ---
Documented by User: ROSE Mathias 12/04/23 10:46 Assessment & Plan Assessment/Plan (1) NELSON (acute kidney injury): PLAN: Plan This is a 73-year-old male with past medical history significant for COPD with chronic hypoxic respiratory failure, former tobacco use, hypertension, hyperlipidemia, GERD with history of GI bleed, history of kidney stones, chronic anemia who presented to the emergency room yesterday with complaints of inability to urinate, confusion, Rocha placed in the emergency room with immediate return of 2 L of urine into bag. Lab work in emergency room showed creatinine of 8.75, BUN 102, calcium 11.6, potassium 8.4 (initial potassium hemolyzed repeat potassium 8.0), patient was admitted to ICU for further evaluation and treatment. Patient received multiple doses Kayexalate, bicarb, insulin, calcium gluconate, D5 and started on bicarb drip. Nephrology consulted in view of NELSON and hyperkalemia. In reviewing past creatinine trends patient has normal baseline creatinine up until November 2023 however he did have lab work on November 20, 2023 which showed creatinine of 1.3. Non-contrast CT A/P showed b/l nonobstructing nephroliths, possible mild left hydro. Likely NELSON secondary to obstruction. Serum creatinine is trending down. Patient has good urine output. There is question of cognitive impairment in Mr. Albrecht therefore difficult to assess if patient has component of uremia or if this is baseline mentation. However there is no acute indication for renal placement therapy, potassium has normalized with medications and bicarb drip and improving of kidney function. Bicarb is normal. Patient does appear to be mildly hypovolemic and will continue IV fluids for today. Serum calcium 11.6 on admission, patient has normal baseline serum calcium trends. Phosphorus was 5.8. Serum calcium is trending down. Will check SPEP, PTH levels. Recommend continue holding lisinopril. Blood pressures acceptable. Further orders forthcoming as hospitalization evolves, thank you for allowing us to participate in the care of Mr. Albrecht. HPI Consult Data Date of Consult: 12/04/23 HPI Narrative HPI Narrative: PEDRO ALBRECHT, is a 73 M with past medical history significant for COPD with chronic hypoxic respiratory failure, former tobacco use, hypertension, hyperlipidemia, GERD with history of GI bleed, history of kidney stones, chronic anemia who was brought to the emergency room yesterday for evaluation of confusion, inability to urinate and suprapubic discomfort. Rocha was placed in the emergency room with immediate return of 2 L of urine. Further workup the emergency room showed elevated white count, hemoglobin 9.5, creatinine 8.75, BUN 100 and potassium 8.4 (initial potassium was noted to be hemolyzed). Repeat potassium 8.0. Patient was admitted for further evaluation and treatment. Nephrology consulted in view of elevated creatinine and hyperkalemia. Patient is alert to name however having difficult time recalling recent events; most information is gathered from the chart. Repeat labs this morning potassium is 5.1, creatinine 6.0 and BUN is 80. [facility] Medical History Arthritis Arthritis Back pain Cardiology follow-up encounter Chronic pain Community acquired pneumonia COPD (chronic obstructive pulmonary disease) Depression Difficulty chewing Drop foot gait Forgetfulness Former smoker GERD (gastroesophageal reflux disease) High cholesterol History of echocardiogram History of GI bleed History of hiatal hernia History of stomach ulcers History of stress test Hyperlipidemia Hypertension IBS (irritable bowel syndrome) Neuropathy On home oxygen therapy Overdose Pneumonia Severe protein-calorie malnutrition Shortness of breath on exertion Syncope Wears dentures Wears glasses Home Medications multivitamin 1 tab PO DAILY supplement 07/01/21 [History Last Taken 10/08/23] pantoprazole 40 mg tablet,delayed release 40 mg PO QAM #90 tabs 10/29/22 [Rx Last Taken 10/09/23] glucosamine-chondroitin 250 mg-200 mg tablet (Osteo Bi-Flex) 2 tab PO DAILY 01/12/23 [History Last Taken 10/08/23] pravastatin 40 mg tablet 40 mg PO QHS #90 tabs 03/13/23 [Rx Last Taken 10/08/23] atenolol 50 mg tablet 50 mg PO DAILY #90 tabs 03/26/23 [Rx Last Taken 10/09/23] docusate sodium 100 mg capsule (Colace) 100 mg PO DAILY Constipation 08/01/23 [History Last Taken 10/08/23] fluticasone propionate 50 mcg/actuation nasal spray,suspension 2 spray intranasal DAILY #16 grams 08/20/23 [Rx Last Taken 10/08/23] albuterol sulfate 90 mcg/actuation aerosol inhaler See Rx Instructions .Route .COMPLEX #8.5 grams 10/22/23 [Rx Last Taken Unknown] carboxymethylcellulose sodium 0.5 % eye drops (Refresh Tears) 1 drp ophthalmic (eye) 4-6XD PRN dry eye(s) 10/22/23 [History Last Taken Unknown] ipratropium 0.5 mg-albuterol 3 mg (2.5 mg base)/3 mL nebulization soln 3 ml inhalation BID shortness of breath or wheezing #180 mL 10/22/23 [Rx Last Taken Unknown] rollator walker with seat #1 ea 11/05/23 [Rx Last Taken Unknown] lisinopril 10 mg tablet 10 mg PO 1600 #90 tabs 11/06/23 [Rx Last Taken Unknown] trazodone 100 mg tablet 100 mg PO QHS #90 tabs 11/06/23 [Rx Last Taken Unknown] hydrocodone 10 mg-acetaminophen 325 mg tablet 1 tab PO TID 1 month #90 tabs 11/20/23 [Rx Last Taken Unknown] Allergy/AdvReac Type Severity Reaction Status Date / Time aspirin Allergy Severe bleeding Verified 11/20/23 11:17 Family History Mother Myocardial infarction, Onset Age: 49 Depression Father Hypertension CVA (cerebral vascular accident), Onset Age: 49 Sister Thyroid disorder Uncle ulcers Surgical History History of bronchoscopy History of esophagogastroduodenoscopy (EGD) History of thoracic surgery Hx of colonoscopy Social History household members: spouse and significant other Smoking Status: Former smoker quit date: 07/14/21 alcohol intake: never substance use type: does not use what type of physical activity do you participate in: other details: yard work, house work ROS ROS Narrative As in HPI and past medical history Physical Exam Narrative Alert to name and place. No apparent distress S1, S2, RRR Lung sounds clear anteriorly and posteriorly. No wheezes, rhonchi rales Abdomen soft, nontender No edema Indwelling Rocha, pinkish to red-colored urine Lab / Micro Data 12/04/23 14:20 12/04/23 04:40 Labs: Laboratory Results - last 24 hr 12/03/23 16:39: WBC 11.9 H, RBC 2.92 L, Hgb 9.5 L, Hct 30.0 L, MCV 102.7 H, MCH 32.5 H, MCHC 31.7 L, RDW Std Deviation 54.7 H, RDW Coeff of Issa 14.6, Plt Count 339, MPV 10.7, Immature Gran % (Auto) 0.400, Neut % (Auto) 81.7 H, Lymph % (Auto) 6.4 L, [place] % (Auto) 7.0, Eos % (Auto) 3.6, Baso % (Auto) 0.9, Absolute Neuts (auto) 9.7 H, Absolute Lymphs (auto) 0.76 L, Nucleated RBC % 0, Differential Comment SCANNED, Sodium 134 L, Potassium 8.4 H*, Chloride 105, Carbon Dioxide 19.0 L, Anion Gap 10, BUN 102 H*, Creatinine 8.75 H*, Estim Creat Clear Calc 7.23, Est GFR (MDRD) Af Amer 8 L, Est GFR (MDRD) Non-Af 6 L, BUN/Creatinine Ratio 11.7, Glucose 104, Calcium 11.6 H, Total Bilirubin 0.20, AST 24, ALT 25, Alkaline Phosphatase 81, Total Creatine Kinase 112, Total Protein 8.0, Albumin 3.3, Globulin 4.7 H, Albumin/Globulin Ratio 0.7 L 12/03/23 17:05: Urine Color Yellow, Urine Clarity Clear, Urine pH 6.5, Ur Specific [place] 1.010, Urine Protein 30 H, Urine Glucose (UA) Normal, Urine Ketones Negative, Urine Occult Blood 150 H, Urine Nitrite Negative, Urine Bilirubin Negative, Urine Urobilinogen Normal, Ur Leukocyte Esterase 25 H, Urine RBC 25-50 SEEN, Urine WBC 0-5 SEEN, Ur Squamous Epith Cells 0 SEEN, Urine Bacteria 0 SEEN, Urine Mucus 0 SEEN, Ur Random Sodium 66, Urine Creatinine 48.80 12/03/23 19:44: Sodium 137, Potassium 8.0 H*, Chloride 108 H, Carbon Dioxide 21.0, Anion Gap 8, BUN 98 H, Creatinine 8.11 H*, Estim Creat Clear Calc 7.80, Est GFR (MDRD) Af Amer 8 L, Est GFR (MDRD) Non-Af 7 L, BUN/Creatinine Ratio 12.1, Glucose 100, Calcium 11.2 H, Phosphorus 5.8 H, Magnesium 2.4, Procalcitonin 0.14 H 12/03/23 21:40: Sodium 139, Potassium 7.5 H*, Chloride 109 H, Carbon Dioxide 22.0, Anion Gap 8, BUN 91 H, Creatinine 7.54 H*, Estim Creat Clear Calc 7.50, Est GFR (MDRD) Af Amer 9 L, Est GFR (MDRD) Non-Af 8 L, BUN/Creatinine Ratio 12.1, Glucose 57 L, Calcium 11.8 H, Vitamin B12 1383 H, Folate 52.70, MRSA (PCR) Negative 12/03/23 23:18: POC Glucose 80 12/04/23 00:53: Sodium Cancelled, Potassium Cancelled, Chloride Cancelled, Carbon Dioxide Cancelled, Anion Gap Cancelled, BUN Cancelled, Creatinine Cancelled, Estim Creat Clear Calc Cancelled, Est GFR (MDRD) Af Amer Cancelled, Est GFR (MDRD) Non-Af Cancelled, BUN/Creatinine Ratio Cancelled, Glucose Cancelled, Calcium Cancelled 12/04/23 01:25: Sodium 140, Potassium 6.0 H*, Chloride 107, Carbon Dioxide 24.0, Anion Gap 9, BUN 88 H, Creatinine 7.23 H, Estim Creat Clear Calc 7.83, Est GFR (MDRD) Af Amer 10 L, Est GFR (MDRD) Non-Af 8 L, BUN/Creatinine Ratio 12.2, Glucose 91, Calcium 11.9 H 12/04/23 04:40: WBC 8.2, RBC 2.34 L, Hgb 7.6 L, Hct 23.3 L, MCV 99.6 H, MCH 32.5 H, MCHC 32.6, RDW Std Deviation 52.3 H, RDW Coeff of Issa 14.6, Plt Count 277, MPV 9.3, Immature Gran % (Auto) 0.500, Neut % (Auto) 70.1 H, Lymph % (Auto) 12.1 L, [place] % (Auto) 10.8 H, Eos % (Auto) 5.8 H, Baso % (Auto) 0.7, Absolute Neuts (auto) 5.8, Absolute Lymphs (auto) 1.00, Nucleated RBC % 0, Sodium 141, Potassium 5.1, Chloride 106, Carbon Dioxide 28.0, Anion Gap 7, BUN 80 H, Creatinine 6.00 H, Estim Creat Clear Calc 9.43, Est GFR (MDRD) Af Amer 12 L, Est GFR (MDRD) Non-Af 10 L, BUN/Creatinine Ratio 13.3, Glucose 58 L, Calcium 10.5 H, Iron 40 L, TIBC 180 L, Iron Saturation 22.2, Ferritin 137, Total Bilirubin 0.30, AST 14 L, ALT 20, Alkaline Phosphatase 61, Total Protein 6.3 L, Albumin 2.6 L, Globulin 3.7, Albumin/Globulin Ratio 0.7 L 12/04/23 06:09: POC Glucose 63 L Micro: Microbiology 12/03/23 22:30 Mucosa - Nasopharyngeal Respiratory Panel (PCR) - Final 12/03/23 17:05 Urine Catheter - Catheter Legionella Antigen - Final 12/03/23 17:05 Urine Catheter - Catheter Streptococcus pneumoniae Antigen (M - Final Imaging Radiology Impression Abdomen/Pelvis CT 12/03/23 17:03 IMPRESSION: Left lower lobe airspace disease. Bilateral nonobstructing nephroliths. Possible mild left hydronephrosis with no definite radiodense ureterolith. Electronically Signed: Basim Aguilar MD at 18:08 EST , Documented by User: Dr. Suzanne Ferrer MD 12/04/23 14:56 Assessment & Plan Assessment/Plan (1) NELSON (acute kidney injury): PLAN: Plan This is a 73-year-old male with past medical history significant for COPD with chronic hypoxic respiratory failure, former tobacco use, hypertension, hyperlipidemia, GERD with history of GI bleed, history of kidney stones, chronic anemia who presented to the emergency room yesterday with complaints of inability to urinate, confusion, Rocha placed in the emergency room with immediate return of 2 L of urine into bag. Lab work in emergency room showed creatinine of 8.75, BUN 102, calcium 11.6, potassium 8.4 (initial potassium hemolyzed repeat potassium 8.0), patient was admitted to ICU for further evaluation and treatment. Patient received multiple doses Kayexalate, bicarb, insulin, calcium gluconate, D5 and started on bicarb drip. Nephrology consulted in view of NELSON and hyperkalemia. In reviewing past creatinine trends patient has normal baseline creatinine up until November 2023 however he did have lab work on November 20, 2023 which showed creatinine of 1.3. Non-contrast CT A/P showed b/l nonobstructing nephroliths, possible mild left hydro. Likely NELSON secondary to obstruction. Serum creatinine is trending down. Patient has good urine output. There is question of cognitive impairment in Mr. Albrecht therefore difficult to assess if patient has component of uremia or if this is baseline mentation. However there is no acute indication for renal placement therapy, potassium has normalized with medications and bicarb drip and improving of kidney function. Bicarb is normal. Patient does appear to be mildly hypovolemic and will continue IV fluids for today. Serum calcium 11.6 on admission, patient has normal baseline serum calcium trends. Phosphorus was 5.8. Serum calcium is trending down. Will check SPEP, PTH levels. Recommend continue holding lisinopril. Blood pressures acceptable. Further orders forthcoming as hospitalization evolves, thank you for allowing us to participate in the care of Mr. Albrecht. Seen and examined independently. New onset renal failure compared to labs from last year. Likely some component of obstruction. CT abdomen without any residual hydronephrosis. Creatinine is rapidly improving. Hypercalcemia. New onset compared to labs from last year. He does look cachectic. We will send a serum protein electrophoresis, PTH. Further workup depending on the labs. Hyperkalemia. Improved. DC bicarbonate drip, start half-normal saline. HPI Consult Data Date of Consult: 12/04/23 [facility] Medical History Arthritis Arthritis Back pain Cardiology follow-up encounter Chronic pain Community acquired pneumonia COPD (chronic obstructive pulmonary disease) Depression Difficulty chewing Drop foot gait Forgetfulness Former smoker GERD (gastroesophageal reflux disease) High cholesterol History of echocardiogram History of GI bleed History of hiatal hernia History of stomach ulcers History of stress test Hyperlipidemia Hypertension IBS (irritable bowel syndrome) Neuropathy On home oxygen therapy Overdose Pneumonia Severe protein-calorie malnutrition Shortness of breath on exertion Syncope Wears dentures Wears glasses Home Medications multivitamin 1 tab PO DAILY supplement 07/01/21 [History Last Taken 10/08/23] pantoprazole 40 mg tablet,delayed release 40 mg PO QAM #90 tabs 10/29/22 [Rx Last Taken 10/09/23] glucosamine-chondroitin 250 mg-200 mg tablet (Osteo Bi-Flex) 2 tab PO DAILY 01/12/23 [History Last Taken 10/08/23] pravastatin 40 mg tablet 40 mg PO QHS #90 tabs 03/13/23 [Rx Last Taken 10/08/23] atenolol 50 mg tablet 50 mg PO DAILY #90 tabs 03/26/23 [Rx Last Taken 10/09/23] docusate sodium 100 mg capsule (Colace) 100 mg PO DAILY Constipation 08/01/23 [History Last Taken 10/08/23] fluticasone propionate 50 mcg/actuation nasal spray,suspension 2 spray intranasal DAILY #16 grams 08/20/23 [Rx Last Taken 10/08/23] albuterol sulfate 90 mcg/actuation aerosol inhaler See Rx Instructions .Route .COMPLEX #8.5 grams 10/22/23 [Rx Last Taken Unknown] carboxymethylcellulose sodium 0.5 % eye drops (Refresh Tears) 1 drp ophthalmic (eye) 4-6XD PRN dry eye(s) 10/22/23 [History Last Taken Unknown] ipratropium 0.5 mg-albuterol 3 mg (2.5 mg base)/3 mL nebulization soln 3 ml inhalation BID shortness of breath or wheezing #180 mL 10/22/23 [Rx Last Taken Unknown] rollator walker with seat #1 ea 11/05/23 [Rx Last Taken Unknown] lisinopril 10 mg tablet 10 mg PO 1600 #90 tabs 11/06/23 [Rx Last Taken Unknown] trazodone 100 mg tablet 100 mg PO QHS #90 tabs 11/06/23 [Rx Last Taken Unknown] hydrocodone 10 mg-acetaminophen 325 mg tablet 1 tab PO TID 1 month #90 tabs 11/20/23 [Rx Last Taken Unknown] Allergy/AdvReac Type Severity Reaction Status Date / Time aspirin Allergy Severe bleeding Verified 11/20/23 11:17 Family History Mother Myocardial infarction, Onset Age: 49 Depression Father Hypertension CVA (cerebral vascular accident), Onset Age: 49 Sister Thyroid disorder Uncle ulcers Surgical History History of bronchoscopy History of esophagogastroduodenoscopy (EGD) History of thoracic surgery Hx of colonoscopy Social History household members: spouse and significant other Smoking Status: Former smoker quit date: 07/14/21 alcohol intake: never substance use type: does not use what type of physical activity do you participate in: other details: yard work, house work Lab / Micro Data 12/04/23 14:20 12/04/23 04:40
[2023-12-04 10:05] LABS: Hematocrit 25.8 % (40-54); Hemoglobin 8.4 g/dL (13.0-16.5)
--- NOTE | 2023-12-04 10:14 | CASEMGMT ---
Addendum entered by Sonali Segura 12/04/23 10:43: Pt SO states the pt has portable tanks at home and the SO will be bringing them in to the hospital today. Original Note: DEZ LOVE Assessment Face to Face with patient for initial transition planning/care coordination assessment. DEZ LOVE introduced self and role at [facility]. Pt appears agitated and somewhat confused at this time. Pt states to call his SO for questioning. Pt SO Judy called at this time. Care providers, pharmacy, and demographics verified. Admitting dx: NELSON, Hyperkalemia LACE Strata: 1 PCP: Miguel Stewart Specialists: Maya Stack Preferred Pharmacy: [facility] Insurance: [facility], [employer] Prescription Benefit: Yes LNOK: Judy Spears (SO - States she is the DPOA) Living Arrangements: Pt lives with his SO in a 2 story home with a BM with HR, Pt SO states the pt does not use the BM steps. Pt SO states that there are 5 steps to enter the home with HR and the SO needs to assist the pt when using these. ADLs/IADLs: Pt SO helps with all IADLs. Pt is able to perform some ADLs independently Transportation: SO DME: Rollator, P. Ox. Grab bar in shower. Pt wears additional oxygen at home via [place] only. Pt uses [employer]. Pt current order was confirmed by Erika stating 3LPM with exertion and 4LPM NC NOC. HHC/SNF: Pt SO states the pt [facility] at [facility]. Denies HHC history. Smoking History: Pt SO states the pt smoked 2 PPD x50 years and quit 2 years ago. Plan: TBD. PT/OT eval pending. Pt SO states that the pt's health has been declining x2 years now. Pt SO states that she wants the pt to go to a SNF prior to coming home because she is nervous/ uncomfortable with the pt returning home in his current condition. Pt SO states that HH would not work due to 2 ferocious dogs at home that are only friendly to family. This RN CM updated Care, SUNITA and Tia states she will follow up with the pt and SO. This RN CM will also follow for additional needs. Eunice Segura RN, CM
[2023-12-04] MEDS: 0.45% Normal Saline 1,000 ML 125 ML IV ×2 (11:18→18:17)
--- NOTE | 2023-12-04 11:42 | CASEMGMT ---
Social Work SW called pt's significant other Judy in regard to discharge plan. Initially SW spoke w/Judy about LW/POA, she states she does have the documents and will bring them in later today. She states that pt has 4 daughters but does not speak with them and haven't for years. Judy explains that it is becoming more difficult to care for pt at home. She states he gets very confused, and it is wearing on her. She states she got him a rollator to use, she thought this would be good for him as he could walk a bit and then take breaks. However, pt is not using it. She states she has been caring for him over the last two years, and his memory issues continue to get worse. SW offered support to Judy. SW asked where she may want pt go to, she states [facility], pt has been there before. SW explained will make the referral, but will leave a list in the room for her in the event [facility] cannot take pt. SW left a list in the room via [facility] of fdc facilities in network w/pt's insurance, in preferred geographic area, and complete w/quality and resource use data. SUNITA will follow up w/Judy once we know if [facility] can take pt, and if not, ask for additional choices. Amanda, d/c ophthalmic assistant, will make referral to [facility] in [facility]. DEE Pierce
[2023-12-04 11:45] LABS: Bedside Glucose 113 mg/dL (74-106)
[2023-12-04 11:45] LABS: Bedside Glucose 67 mg/dL (74-106)
[2023-12-04 12:19] LABS: PTHIN 30.1 pg/mL (18.4-80.1)
[2023-12-04] MEDS: HYDROcodone Bitartrate/Apap 5/325 Tablet PO ×2 (12:53→20:44)
--- NOTE | 2023-12-04 14:11 | PN_ITS ---
Subjective Subjective Patient seen and examined. He was admitted with a complaint of abdominal discomfort and decreased urine output. He is being managed for NELSON with hyperkalemia due to urine retention. He had no complaints today. He had Rocha catheter inserted which drained 2.5 L of fluid immediately. Systems otherwise negative. Hyperkalemia has resolved, and Cr has trended down also. Objective Data Objective Data Vital Signs: Vital Signs Temp Pulse Resp BP Pulse Ox O2 Del Method O2 Flow Rate 99 F 79 18 117/66 96 Nasal Cannula 2 12/04/23 14:00 12/04/23 14:00 12/04/23 14:00 12/04/23 14:00 12/04/23 14:00 12/04/23 14:00 12/04/23 14:00 Oxygen Flow Rate (L/min) 2 Oxygen Delivery Method Nasal Cannula Weight: 135 lb 2.294 oz Body Mass Index (BMI) 18.3 Intake & Output: Intake and Output for Last 24 Hours 12/02/23 12/03/23 12/04/23 23:59 23:59 23:59 Intake Total 1030 / 1030 3732.91 / 3732.91 Output Total 3100 / 3100 2049 / 2049 Balance -2069 / -2069 1682.91 / 1682.91 Lab / Micro Data 12/04/23 09:50 12/04/23 04:40 Labs: Laboratory Results - last 24 hr 12/03/23 16:39: WBC 11.9 H, RBC 2.92 L, Hgb 9.5 L, Hct 30.0 L, MCV 102.7 H, MCH 32.5 H, MCHC 31.7 L, RDW Std Deviation 54.7 H, RDW Coeff of Issa 14.6, Plt Count 339, MPV 10.7, Immature Gran % (Auto) 0.400, Neut % (Auto) 81.7 H, Lymph % (Auto) 6.4 L, [place] % (Auto) 7.0, Eos % (Auto) 3.6, Baso % (Auto) 0.9, Absolute Neuts (auto) 9.7 H, Absolute Lymphs (auto) 0.76 L, Nucleated RBC % 0, Differe ntial Comment SCANNED, Sodium 134 L, Potassium 8.4 H*, Chloride 105, Carbon Dioxide 19.0 L, Anion Gap 10, BUN 102 H*, Creatinine 8.75 H*, Estim Creat Clear Calc 7.23, Est GFR (MDRD) Af Amer 8 L, Est GFR (MDRD) Non-Af 6 L, BUN/Creatinine Ratio 11.7, Glucose 104, Calcium 11.6 H, Total Bilirubin 0.20, AST 24, ALT 25, Alkaline Phosphatase 81, Total Creatine Kinase 112, Total Protein 8.0, Albumin 3.3, Globulin 4.7 H, Albumin/Globulin Ratio 0.7 L 12/03/23 17:05: Urine Color Yellow, Urine Clarity Clear, Urine pH 6.5, Ur Specific [place] 1.010, Urine Protein 30 H, Urine Glucose (UA) Normal, Urine Ketones Negative, Urine Occult Blood 150 H, Urine Nitrite Negative, Urine Bilirubin Negative, Urine Urobilinogen Normal, Ur Leukocyte Esterase 25 H, Urine RBC 25-50 SEEN, Urine WBC 0-5 SEEN, Ur Squamous Epith Cells 0 SEEN, Urine Bacteria 0 SEEN, Urine Mucus 0 SEEN, Ur Random Sodium 66, Urine Creatinine 48.80 12/03/23 19:44: Sodium 137, Potassium 8.0 H*, Chloride 108 H, Carbon Dioxide 21.0, Anion Gap 8, BUN 98 H, Creatinine 8.11 H*, Estim Creat Clear Calc 7.80, Est GFR (MDRD) Af Amer 8 L, Est GFR (MDRD) Non-Af 7 L, BUN/Creatinine Ratio 12.1, Glucose 100, Calcium 11.2 H, Phosphorus 5.8 H, Magnesium 2.4, Procalcitonin 0.14 H 12/03/23 21:40: Sodium 139, Potassium 7.5 H*, Chloride 109 H, Carbon Dioxide 22.0, Anion Gap 8, BUN 91 H, Creatinine 7.54 H*, Estim Creat Clear Calc 7.50, Est GFR (MDRD) Af Amer 9 L, Est GFR (MDRD) Non-Af 8 L, BUN/Creatinine Ratio 12.1, Glucose 57 L, Calcium 11.8 H, Vitamin B12 1383 H, Folate 52.70, MRSA (PCR) Negative 12/03/23 23:18: POC Glucose 80 12/04/23 00:53: Sodium Cancelled, Potassium Cancelled, Chloride Cancelled, Carbon Dioxide Cancelled, Anion Gap Cancelled, BUN Cancelled, Creatinine Cancelled, Estim Creat Clear Calc Cancelled, Est GFR (MDRD) Af Amer Cancelled, Est GFR (MDRD) Non-Af Cancelled, BUN/Creatinine Ratio Cancelled, Glucose Cancelled, Calcium Cancelled 12/04/23 01:25: Sodium 140, Potassium 6.0 H*, Chloride 107, Carbon Dioxide 24.0, Anion Gap 9, BUN 88 H, Creatinine 7.23 H, Estim Creat Clear Calc 7.83, Est GFR ( MDRD) Af Amer 10 L, Est GFR (MDRD) Non-Af 8 L, BUN/Creatinine Ratio 12.2, Glucose 91, Calcium 11.9 H 12/04/23 04:40: WBC 8.2, RBC 2.34 L, Hgb 7.6 L, Hct 23.3 L, MCV 99.6 H, MCH 32.5 H, MCHC 32.6, RDW Std Deviation 52.3 H, RDW Coeff of Issa 14.6, Plt Count 277, MPV 9.3, Immature Gran % (Auto) 0.500, Neut % (Auto) 70.1 H, Lymph % (Auto) 12.1 L, [place] % (Auto) 10.8 H, Eos % (Auto) 5.8 H, Baso % (Auto) 0.7, Absolute Neuts (auto) 5.8, Absolute Lymphs (auto) 1.00, Nucleated RBC % 0, Sodium 141, Potassium 5.1, Chloride 106, Carbon Dioxide 28.0, Anion Gap 7, BUN 80 H, Creatinine 6.00 H, Estim Creat Clear Calc 9.43, Est GFR (MDRD) Af Amer 12 L, Est GFR (MDRD) Non-Af 10 L, BUN/Creatinine Ratio 13.3, Glucose 58 L, Calcium 10.5 H, Iron 40 L, TIBC 180 L, Iron Saturation 22.2, Ferritin 137, Total Bilirubin 0.30, AST 14 L, ALT 20, Alkaline Phosphatase 61, Total Protein 6.3 L, Albumin 2.6 L, Globulin 3.7, Albumin/Globulin Ratio 0.7 L 12/04/23 06:09: POC Glucose 63 L 12/04/23 06:51: POC Glucose 67 L 12/04/23 09:50: Hgb 8.4 L, Hct 25.8 L 02/21/24 11:21: POC Glucose 113 H 12/04/23 11:25: PTH Intact 30.1 Micro: Microbiology 12/04/23 07:00 Sputum, Expectorated/Coughed Gram Stain - Final 12/03/23 17:06 Urine Catheter - Catheter Urine Culture - Preliminary Culture exhibits no growth. 12/03/23 22:30 Mucosa - Nasopharyngeal Respiratory Panel (PCR) - Final 12/03/23 17:05 Urine Catheter - Catheter Legionella Antigen - Final 12/03/23 17:05 Urine Catheter - Catheter Streptococcus pneumoniae Antigen (M - Final Radiography Diagnostic Testing: Radiology Impression Abdomen/Pelvis CT 12/03/23 17:03 IMPRESSION: Left lower lobe airspace disease. Bilateral nonobstructing nephroliths. Possible mild left hydronephrosis with no definite radiodense ureterolith. Electronically Signed: Basim Aguilar MD at 18:08 EST Reading Location ID and State: [address] [place] [address] Tel , Service support , Physical Exam Const alert and oriented x3 Constitutional Narrative: frail, elderly HEENT normocephalic and head/scalp atraumatic Mouth: dry mucous membranes Eyes PERRL and EOMs intact bilaterally Neck no lymphadenopathy and supple Lymph Lymphatic: no lymphadenopathy noted and no lymphedema noted Resp Resp Narrative: mildly diminished breath sounds bibasally, no wheezes or crackles.On 2L of oxygen by nasal canula Cardio regular rate, regular rhythm, S1 normal heart sound, S2 normal heart sound and no murmurs GI normal to inspection, nondistended, normoactive bowel sounds, soft to palpation, non-tender and non-distended Extremity normal capillary refill, no clubbing, cyanosis or edema and no calf tenderness Skin General Skin Exam: no breakdown Neuro CN's II-XII intact bilaterally and no focal motor deficits Motor Exam: general weakness Psych thought process normal and cooperative Appearance: appropriate Assessment & Plan Assessment/Plan (1) NELSON (acute kidney injury): PLAN: #NELSON with hyperkalemia * Creatinine was 8.75 on admission with baseline creatinine around 0.9-1. Cr now down to 6. Potassiium is 5.1 * CT abdomen and pelvis showed evidence of urine retention. He had a Rocha catheter inserted and had 2.5 L of urine drained. Rocha catheter still in situ. * Potassium was also markedly elevated. He was started on bicarb drip. Also on Flomax. * Rocha catheter remains in situ. Potassium has trended down with multiple doses of Kayexalate. * Nephrology on board. #COPD in the setting of chronic respiratory failure * On 2 L of oxygen. * Breathing treatments bronchodilators. Titrate oxygen to maintain saturation above 90%. Not in exacerbation. #Left lower lobe consolidation due to presumptive pneumonia * Chest x-ray showed left lower lobe and lingula consolidations. Patient denies any cough and is on his baseline 2 L of oxygen. Started on IV ceftriaxone and azithromycin empirically. * Urine for strep and Legionella negative. Sputum cultures pending. * #Hyperkalemia: Likely due to NELSON. Nephrology on board. PTH and SPEP ordered. Trended down with hydration. Will monitor. #Hypertension: Lisinopril held due to NELSON and hyperkalemia. On atenolol. IV hydralazine as needed. #Hyperlipidemia: On statin #GERD: On PPI continue DVT prophylaxis: Heparin Charges/Coding Visit Charges Inpatient E&M: 51240 [facility] Hosp L3
[2023-12-04 14:34] LABS: Hematocrit 19.6 % (40-54); Hemoglobin 6.4 g/dL (13.0-16.5)
--- NOTE | 2023-12-04 15:17 | CASEMGMT ---
SW spoke with patient's , Judy per her request. Judy brought in patient's Healthcare POA and Healthcare Living Will. Judy also brought in paperwork from [facility] that patient completed stating he wants to donate his body to science. Copies were made and placed in chart. SW also let Judy know that a referral was made to [facility] and just waiting to hear back. Plan: SNF possibly [facility] pending their acceptance and patient being medically ready. Julee Foster [employer]
--- NOTE | 2023-12-04 15:17 | CASEMGMT ---
Addendum entered by Amanad Martin 12/04/23 15:20: [facility] declined referral d/t no bed availability. Amanda Martin, Discharge Planning Asst. Original Note: Discharge Planning Referral sent via [facility] to [place]. Amanda Martin, Discharge Planning Asst.
[2023-12-04 15:52] LABS: Hematocrit 23.7 % (40-54); Hemoglobin 7.7 g/dL (13.0-16.5)
[2023-12-04] MEDS: Tamsulosin HCl 0.4 MG Capsule 0.400000000000000022 MG PO (16:46)
[2023-12-04] MEDS: Pravastatin 40 MG Tablet PO (20:45)
[2023-12-05] VITALS (17 sets, daily range): BP systolic 109–167; BP diastolic 49–78; PULSE 61–88; RESP 15–24; TEMP 36.6–37.2; O2SAT 90–98; BMI 18.6
[2023-12-05] MEDS: 0.45% Normal Saline 1,000 ML 125 ML IV ×2 (02:12→09:42)
[2023-12-05] MEDS: HYDROcodone Bitartrate/Apap 5/325 Tablet PO ×3 (05:17→20:35)
[2023-12-05 05:29] LABS: Absolute Lymphocyte Count 0.89 X10^3/uL (0.83-4.51); Absolute Neutrophil Count 11.8 X10^3/uL (2.0-7.7); Basophil# 0.06 X10^3/uL; Basophil% 0.4 % (0-1); Eosinophil# 0.15 X10^3/uL; Eosinophils% 1.1 % (0-5); Hematocrit 27.2 % (40-54); Hemoglobin 8.7 g/dL (13.0-16.5); Lymphocyte # 0.89 X10^3/ul (0.83-4.51); Lymphocyte % 6.6 % (19-41); Mean Corpuscular Hgb 32.5 pg (27.0-32.0); Mean Corpuscular Volume 101.5 fL (80-94); Mean Platelet Vol. 9.4 fl (6.2-12.0); Monocyte# 0.61 X10^3/uL; Monocyte% 4.5 % (0-10); NRBC Flagged by Analyzer 0 % (0-5); Neutrophil # 11.79 X10^3/uL (2.7-7.7); Platelet Count 296 K/mm3 (150-450); RBC Distribution Width CV 14.6 % (11.6-14.6); RBC Distribution Width SD 54.1 fl (35.1-43.9); Red Blood Count 2.68 M/mm3 (4.6-6.2); White Blood Count 13.6 K/mm3 (4.4-11.0)
[2023-12-05 06:42] LABS: Albumin, Serum 2.7 g/dL (3.2-5.0); BUN 47 mg/dL (7-18); BUN/Creat Ratio 14.7 RATIO (10-20); Calcium,Total 9.8 mg/dL (8.5-10.1); Chloride 103 mmol/L (98-107); EST Glomerular Filtration Rate 20 mL/min (>60); Est Glom Filt Rate - Afr Amer 25 mL/min (>60); Estimated Creatinine Clearance 18.06 ml/min; Glucose 101 mg/dL (74-106); Phosphorus 3.4 mg/dL (2.5-4.9); Potassium 3.8 mmol/L (3.5-5.1); Sodium Level 137 mmol/L (136-145)
--- NOTE | 2023-12-05 06:58 | PCM.PN.INT ---
Assessment & Plan Assessment/Plan (1) NELSON (acute kidney injury): PLAN: Plan RECOMMENDATIONS: 1. Continue empiric antibiotics to complete 7 days of therapy. 2. Continue scheduled bronchodilators. 3. Supplemental oxygen to maintain saturations at or above 90%. 4. Continue to monitor H&H and transfuse if hemoglobin drops below 7 g/dL. 5. Continue PPI therapy. 6. Will sign off from a critical care perspective. Please call with any additional questions. IMPRESSIONS: 1. Acute kidney injury/hyperkalemia Improving. Likely multifactorial in etiology. Hyperkalemia has resolved with improving renal parameters with IV fluid resuscitation. Nephrology is following to assist with medical management. Continue current supportive care. 2. Metabolic encephalopathy Improving. Most likely secondary to presenting uremia. 3. History of COPD with left lower lobe consolidation The patient is stable from a respiratory perspective. Plan to continue empiric antibiotics along with scheduled bronchodilators. Supplemental oxygen will be continued to maintain saturations at or above 90%. 4. Anemia The patient has known chronic anemia with a baseline hemoglobin in the 9 to 11 g/dL range. Although low, the patient's blood counts remained stable. Continue to monitor H&H daily and transfuse if hemoglobin drops below 7 g/dL. Continue PPI therapy. 5. History of tobacco dependency in remission/GERD/hypertension/hyperlipidemia Complicates care, management, recovery and prognosis. Continue home medications as indicated. This note was generated with [employer]wing[employer] dictation software. It may contain incorrect words, spelling, and punctuation that were not noted in checking the note before signing. Subjective Subjective The patient was seen and examined at the bedside this morning. Events from the last 24 hours have been reviewed. The patient is currently afebrile, hemodynamically stable and maintaining appropriate oxygen saturations on 2 L/min via nasal cannula. Hemoglobin is stable at 8.7 g/dL. BUN and creatinine have improved to 47 and 3.2, respectively. Objective Data Objective Data The patient's most recent lab work, culture data and imaging studies have all been personally reviewed. Infectious workup has been unrevealing to date. Vital Signs: Vital Signs Temp Pulse Resp BP Pulse Ox O2 Del Method O2 Flow Rate 98.2 F 70 16 167/62 H 94 Nasal Cannula 2 12/05/23 05:00 12/05/23 06:00 12/05/23 06:00 12/05/23 06:00 12/05/23 06:00 12/05/23 06:00 12/05/23 06:00 Oxygen Flow Rate (L/min) 2 Oxygen Delivery Method Nasal Cannula Weight: 136 lb 14.513 oz Body Mass Index (BMI) 18.6 Intake & Output: Intake and Output for Last 24 Hours 12/03/23 12/04/23 12/05/23 23:59 23:59 23:59 Intake Total 1030 / 1030 4835.83 / 4835.83 989.58 / 989.58 Output Total 3100 / 3100 3350 / 3350 1100 / 1100 Balance -2070 / -2070 1485.83 / 1485.83 -110.42 / -110.42 Lab / Micro Data Attestation: I reviewed the patient's lab results. 12/05/23 05:05 12/05/23 05:05 Labs: Laboratory Results - last 24 hr 12/04/23 06:51: POC Glucose 67 L 12/04/23 09:50: Hgb 8.4 L, Hct 25.8 L 12/04/23 11:21: POC Glucose 113 H 12/04/23 11:25: PTH Intact 30.1 12/04/23 14:20: Hgb 6.4 L, Hct 19.6 L 12/04/23 15:45: Hgb 7.7 L, Hct 23.7 L 12/05/23 05:05: WBC 13.6 H, RBC 2.68 L, Hgb 8.7 L, Hct 27.2 L, MCV 101.5 H, MCH 32.5 H, MCHC 32.0, RDW Std Deviation 54.1 H, RDW Coeff of Issa 14.6, Plt Count 296, MPV 9.4, Immature Gran % (Auto) 0.400, Neut % (Auto) 87.0 H, Lymph % (Auto) 6.6 L, [place] % (Auto) 4.5, Eos % (Auto) 1.1, Baso % (Auto) 0.4, Absolute Neuts (auto) 11.8 H, Absolute Lymphs (auto) 0.89, Nucleated RBC % 0, Sodium 137, Potassium 3.8, Chloride 103, Carbon Dioxide 30.0, BUN 47 H, Creatinine 3.20 H, Estim Creat Clear Calc 18.06, Est GFR (MDRD) Af Amer 25 L, Est GFR (MDRD) Non-Af 20 L, BUN/Creatinine Ratio 14.7, Glucose 101, Calcium 9.8, Phosphorus 3.4, Albumin 2.7 L Micro: Microbiology 12/04/23 07:00 Sputum, Expectorated/Coughed Gram Stain - Final 12/03/23 17:06 Urine Catheter - Catheter Urine Culture - Preliminary Culture exhibits no growth. 12/03/23 22:30 Mucosa - Nasopharyngeal Respiratory Panel (PCR) - Final 12/03/23 17:05 Urine Catheter - Catheter Legionella Antigen - Final 12/03/23 17:05 Urine Catheter - Catheter Streptococcus pneumoniae Antigen (M - Final Physical Exam Const alert and no apparent distress Constitutional Narrative: Sitting in bedside recliner. General Appearance: cooperative and frail HEENT normocephalic and head/scalp atraumatic Eyes PERRL, EOMs intact bilaterally and conjunctivae normal Neck supple General: trachea midline Chest inspection of chest normal Resp normal respiratory effort Auscultation: diminished lung sounds; Negative for rales, rhonchi or wheezes Cardio regular rate and regular rhythm GI normal to inspection, nondistended, normoactive bowel sounds Extremity no clubbing, cyanosis or edema Skin no rashes or lesions noted Neuro CN's II-XII intact bilaterally and no focal motor deficits Psych Mood & Affect: flat affect Charges/Coding Visit Charges Inpatient E&M: 30931 Subs Hosp L2
[2023-12-05] MEDS: Ipratropium/Albuterol Sulfate 3 ML AMPUL.NEB INHALATION ×3 (07:13→18:53)
[2023-12-05] MEDS: Pantoprazole Sodium 40 MG in 0.9% Normal Saline (100mL MB+) 100 ML 330 MG IV ×2 (08:01→20:36)
[2023-12-05] MEDS: Docusate Sodium 100 MG Capsule PO (08:06)
[2023-12-05] MEDS: Fluticasone 0.05% 1 SPRAY NASAL.SRY 2 SPRAY NASAL (08:06)
[2023-12-05] MEDS: Atenolol 50 MG Tablet PO (08:06)
[2023-12-05] MEDS: Ceftriaxone 1 GM/50 ML BAG IV (09:07)
--- NOTE | 2023-12-05 09:25 | CASEMGMT ---
SW received a voice mail from patient's asking if patient could go to [facility]. SUNITA sent a referral to TCU. Julee GARLAND
--- NOTE | 2023-12-05 09:32 | CASEMGMT ---
SUNITA called patient's significant other Judy and let her know SW did make a referral to TCU. SUNITA asked for 2 more choices in the event TCU cannot take patient. Judy's next 2 choices are [facility] and [facility]. SUNITA did let Judy know TCU wants to see how patient does with therapy today as yesterday he was not working with therapy. Judy verbalized understanding. Plan: SNF pending accepting facility Julee GARLAND
[2023-12-05] MEDS: Azithromycin 500 MG in Dextrose 5%-Water (250mL Bag) 250 ML 250 MG IV (09:42)
--- NOTE | 2023-12-05 10:11 | PN_ITS ---
Subjective Subjective Patient seen and examined. He said he felt better today. He had no complaints and had an uneventful night. Review of systems otherwise negative. Creatinine continues to trend downwards and hyperkalemia has resolved. Objective Data Objective Data Vital Signs: Vital Signs Temp Pulse Resp BP Pulse Ox O2 Del Method O2 Flow Rate 98.9 F 65 21 H 128/68 H 95 Nasal Cannula 2 12/05/23 10:00 12/05/23 10:00 12/05/23 10:00 12/05/23 10:00 12/05/23 10:00 12/05/23 10:00 12/05/23 10:00 Oxygen Flow Rate (L/min) 2 Oxygen Delivery Method Nasal Cannula Weight: 136 lb 14.513 oz Body Mass Index (BMI) 18.6 Intake & Output: Intake and Output for Last 24 Hours 12/03/23 12/04/23 12/05/23 23:59 23:59 23:59 Intake Total 1030 / 1030 4835.83 / 4835.83 2327.08 / 2327.08 Output Total 3100 / 3100 3350 / 3350 1100 / 1100 Balance -2070 / -2070 1485.83 / 1485.83 1227.08 / 1227.08 Lab / Micro Data 12/05/23 05:05 12/05/23 05:05 Labs: Laboratory Results - last 24 hr 12/04/23 06:51: POC Glucose 67 L 12/04/23 11:21: POC Glucose 113 H 12/04/23 11:25: PTH Intact 30.1 12/04/23 14:20: Hgb 6.4 L, Hct 19.6 L 12/04/23 15:45: Hgb 7.7 L, Hct 23.7 L 12/05/23 05:05: WBC 13.6 H, RBC 2.68 L, Hgb 8.7 L, Hct 27.2 L, MCV 101.5 H, MCH 32.5 H, MCHC 32.0, RDW Std Deviation 54.1 H, RDW Coeff of Issa 14.6, Plt Count 296, MPV 9.4, Immature Gran % (Auto) 0.400, Neut % (Auto) 87.0 H, Lymph % (Auto) 6.6 L, [place] % (Auto) 4.5, Eos % (Auto) 1.1, Baso % (Auto) 0.4, Absolute Neuts (auto) 11.8 H, Absolute Lymphs (auto) 0.89, Nucleated RBC % 0, Sodium 137, Potassium 3.8, Chloride 103, Carbon Dioxide 30.0, BUN 47 H, Creatinine 3.20 H, Estim Creat Clear Calc 18.06, Est GFR (MDRD) Af Amer 25 L, Est GFR (MDRD) Non-Af 20 L, BUN/Creatinine Ratio 14.7, Glucose 101, Calcium 9.8, Phosphorus 3.4, Albumin 2.7 L Micro: Microbiology 12/04/23 07:00 Sputum, Expectorated/Coughed Gram Stain - Final 12/04/23 07:00 Sputum, Expectorated/Coughed Respiratory Culture - Preliminary GNR lactose labeling machine operator Staphylococcus species 12/03/23 17:06 Urine Catheter - Catheter Urine Culture - Preliminary Culture exhibits no growth. 12/03/23 22:30 Mucosa - Nasopharyngeal Respiratory Panel (PCR) - Final 12/03/23 17:05 Urine Catheter - Catheter Legionella Antigen - Final 12/03/23 17:05 Urine Catheter - Catheter Streptococcus pneumoniae Antigen (M - Final Physical Exam Const alert, oriented x3 and no apparent distress Constitutional Narrative: frail, elderly General Appearance: cooperative HEENT normocephalic and head/scalp atraumatic Mouth: dry mucous membranes Eyes PERRL and EOMs intact bilaterally Neck no lymphadenopathy and supple Lymph Lymphatic: no lymphadenopathy noted and no lymphedema noted Resp Resp Narrative: mildly diminished breath sounds bibasally, no wheezes or crackles.On 2L of oxygen by nasal canula Cardio regular rate, regular rhythm, S1 normal heart sound, S2 normal heart sound and no murmurs GI normal to inspection, nondistended, normoactive bowel sounds, soft to palpation, non-tender and non-distended Extremity normal capillary refill, no clubbing, cyanosis or edema and no calf tenderness Skin General Skin Exam: no breakdown Neuro CN's II-XII intact bilaterally and no focal motor deficits Motor Exam: general weakness Psych thought process normal and cooperative Appearance: appropriate Assessment & Plan Assessment/Plan (1) NELSON (acute kidney injury): PLAN: #NELSON with hyperkalemia * Creatinine was 8.75 on admission with baseline creatinine around 0.9-1. Cr now down to 6. Potassiium is 5.1 * CT abdomen and pelvis showed evidence of urine retention. He had a Rocha catheter inserted and had 2.5 L of urine drained. Rocha catheter still in situ. * Potassium was also markedly elevated. He was started on bicarb drip. Also on Flomax. * Rocha catheter remains in situ. Potassium has trended down with multiple doses of Kayexalate. * Nephrology on board. Creatinine is down to 3.2 and hyperkalemia has resolved. #COPD in the setting of chronic respiratory failure * On 2 L of oxygen. * Breathing treatments bronchodilators. Titrate oxygen to maintain saturation above 90%. Not in exacerbation. #Left lower lobe consolidation due to presumptive pneumonia * Chest x-ray showed left lower lobe and lingula consolidations. Patient denies any cough and is on his baseline 2 L of oxygen. Started on IV ceftriaxone and azithromycin empirically. * Urine for strep and Legionella negative. * Sputum cultures growing staph species and gram-negative rods lactose labeling machine operator with speciation pending. * Will switch antibiotics to Levaquin. * #Hyperkalemia: Likely due to NELSON. Resolved. #Hypertension: Lisinopril held due to NELSON and hyperkalemia. On atenolol. IV hydralazine as needed. #Hyperlipidemia: On statin #GERD: On PPI continue DVT prophylaxis: Heparin Disposition: Transfer out of ICU to [facility] today. Charges/Coding Visit Charges Inpatient E&M: 72015 Subs Hosp L2
--- NOTE | 2023-12-05 11:31 | PN.RENAL_ITS ---
Subjective Subjective Sitting in chair, more alert and oriented today. Denies any nausea. States appetite is fair. Objective Data Objective Data Vital Signs: Vital Signs Temp Pulse Resp BP Pulse Ox O2 Del Method O2 Flow Rate 98.1 F 61 17 118/61 97 Nasal Cannula 2 12/05/23 11:00 12/05/23 11:00 12/05/23 11:00 12/05/23 11:00 12/05/23 11:00 12/05/23 11:00 12/05/23 11:00 Oxygen Flow Rate (L/min) 2 Oxygen Delivery Method Nasal Cannula Weight: 62.1 kg Body Mass Index (BMI) 18.6 Intake & Output: Intake and Output for Last 24 Hours 12/03/23 12/04/23 12/05/23 23:59 23:59 23:59 Intake Total 1030 / 1030 4835.83 / 4835.83 2582.08 / 2582.08 Output Total 3100 / 3100 3350 / 3350 2049 / 2049 Balance -2069 / -2069 1485.83 / 1485.83 532.08 / 532.08 Lab / Micro Data 12/05/23 05:05 12/05/23 05:05 Labs: Laboratory Results - last 24 hr 12/04/23 06:51: POC Glucose 67 L 12/04/23 11:21: POC Glucose 113 H 12/04/23 11:25: PTH Intact 30.1 12/04/23 14:20: Hgb 6.4 L, Hct 19.6 L 12/04/23 15:45: Hgb 7.7 L, Hct 23.7 L 12/05/23 05:05: WBC 13.6 H, RBC 2.68 L, Hgb 8.7 L, Hct 27.2 L, MCV 101.5 H, MCH 32.5 H, MCHC 32.0, RDW Std Deviation 54.1 H, RDW Coeff of Issa 14.6, Plt Count 296, MPV 9.4, Immature Gran % (Auto) 0.400, Neut % (Auto) 87.0 H, Lymph % (Auto) 6.6 L, [place] % (Auto) 4.5, Eos % (Auto) 1.1, Baso % (Auto) 0.4, Absolute Neuts (auto) 11.8 H, Absolute Lymphs (auto) 0.89, Nucleated RBC % 0, Sodium 137, Potassium 3.8, Chloride 103, Carbon Dioxide 30.0, BUN 47 H, Creatinine 3.20 H, Estim Creat Clear Calc 18.06, Est GFR (MDRD) Af Amer 25 L, Est GFR (MDRD) Non-Af 20 L, BUN/Creatinine Ratio 14.7, Glucose 101, Calcium 9.8, Phosphorus 3.4, Albumin 2.7 L Micro: Microbiology 12/04/23 07:00 Sputum, Expectorated/Coughed Gram Stain - Final 12/04/23 07:00 Sputum, Expectorated/Coughed Respiratory Culture - Preliminary GNR lactose property management accountant Staphylococcus species 12/03/23 17:06 Urine Catheter - Catheter Urine Culture - Preliminary Culture exhibits no growth. 12/03/23 22:30 Mucosa - Nasopharyngeal Respiratory Panel (PCR) - Final 12/03/23 17:05 Urine Catheter - Catheter Legionella Antigen - Final 12/03/23 17:05 Urine Catheter - Catheter Streptococcus pneumoniae Antigen (M - Final Physical Exam Narrative Alert and oriented x3 S1, S2, RRR Lung sounds clear anteriorly Abdomen soft, nontender No edema Indwelling Jovel, pinkish colored urine Assessment & Plan Assessment/Plan (1) NELSON (acute kidney injury): PLAN: Plan This is a 73-year-old male with past medical history significant for COPD with chronic hypoxic respiratory failure, former tobacco use, hypertension, hyperlipidemia, GERD with history of GI bleed, history of kidney stones, chronic anemia who presented to the emergency room yesterday with complaints of inability to urinate, confusion, Jovel placed in the emergency room with immediate return of 2 L of urine into bag. - NELSON with normal baseline SCr likely from obstruction. Admission SCr 8.75, BUN 102, calcium 11.6, potassium 8.4 (initial potassium hemolyzed repeat potassium 8.0). Today SCr 3.2, K+ 3.8, BUN 47. With placing jovel and IVF renal function improved. Patient received multiple doses Kayexalate, bicarb, insulin, calcium gluconate, D5 and started on bicarb drip. Non-contrast CT A/P showed b/l nonobstructing nephroliths, possible mild left hydro. Patient has good urine output. 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 Will keep on gentle IVF for another day, decrease rate. BPs acceptable, continue off lisinopril. - Hypercalcemia; Serum calcium 11.6 on admission, patient has normal baseline serum calcium trends. Phosphorus was 5.8. Serum calcium is trending down and today calcium 9.8, phos 3.4. PTH 30. SPEP pending.
[2023-12-05 15:08] LABS: Immunoglobulin A 348 mg/dL (61-437); Immunoglobulin G 1257 mg/dL (603-1613); Immunoglobulin M 31 mg/dL (15-143)
[2023-12-05] MEDS: Tamsulosin HCl 0.4 MG Capsule 0.400000000000000022 MG PO (16:14)
[2023-12-05] MEDS: 0.45% Normal Saline 1,000 ML 100 ML IV (18:22)
[2023-12-05] MEDS: Pravastatin 40 MG Tablet PO (20:36)
[2023-12-06] VITALS (9 sets, daily range): BP systolic 110–141; BP diastolic 68–85; PULSE 0–87; RESP 16–18; TEMP 36.7–37; O2SAT 95–99; BMI 19.1
[2023-12-06] MEDS: 0.45% Normal Saline 1,000 ML 100 ML IV (03:50)
[2023-12-06] MEDS: HYDROcodone Bitartrate/Apap 5/325 Tablet PO ×3 (06:28→22:14)
[2023-12-06 06:45] LABS: Absolute Lymphocyte Count 0.85 X10^3/uL (0.83-4.51); Absolute Neutrophil Count 12.2 X10^3/uL (2.0-7.7); Basophil# 0.03 X10^3/uL; Basophil% 0.2 % (0-1); Eosinophil# 0.45 X10^3/uL; Eosinophils% 3.2 % (0-5); Hematocrit 25.6 % (40-54); Hemoglobin 8.2 g/dL (13.0-16.5); Lymphocyte # 0.85 X10^3/ul (0.83-4.51); Mean Corpuscular Hgb 31.9 pg (27.0-32.0); Mean Corpuscular Volume 99.6 fL (80-94); Mean Platelet Vol. 9.5 fl (6.2-12.0); Monocyte# 0.66 X10^3/uL; Monocyte% 4.6 % (0-10); NRBC Flagged by Analyzer 0 % (0-5); Neutrophil % 85.5 % (47-70); Platelet Count 284 K/mm3 (150-450); RBC Distribution Width CV 14.2 % (11.6-14.6); RBC Distribution Width SD 51.9 fl (35.1-43.9); Red Blood Count 2.57 M/mm3 (4.6-6.2); White Blood Count 14.3 K/mm3 (4.4-11.0)
[2023-12-06 07:01] LABS: Anion Gap 5 (5-15); BUN 26 mg/dL (7-18); Calcium,Total 8.6 mg/dL (8.5-10.1); Chloride 106 mmol/L (98-107); Creatinine, Serum 1.63 mg/dL (0.70-1.30); EST Glomerular Filtration Rate 44 mL/min (>60); Est Glom Filt Rate - Afr Amer 54 mL/min (>60); Estimated Creatinine Clearance 36.42 ml/min; Glucose 97 mg/dL (74-106); Potassium 2.9 mmol/L (3.5-5.1); Sodium Level 139 mmol/L (136-145)
[2023-12-06] MEDS: Ipratropium/Albuterol Sulfate 3 ML AMPUL.NEB INHALATION ×3 (07:10→19:21)
[2023-12-06] MEDS: Potassium Chloride 10mEq/100mL 10 MEQ/100 ML IV.SOLN. 100 MEQ IV BOLUS ×4 (07:43→11:08)
[2023-12-06] MEDS: Fluticasone 0.05% 1 SPRAY NASAL.SRY 2 SPRAY NASAL (08:49)
[2023-12-06] MEDS: Atenolol 50 MG Tablet PO (08:49)
[2023-12-06] MEDS: Docusate Sodium 100 MG Capsule PO (08:49)
[2023-12-06] MEDS: Pantoprazole Sodium 40 MG in 0.9% Normal Saline (100mL MB+) 100 ML 330 MG IV ×2 (08:51→22:34)
--- NOTE | 2023-12-06 09:53 | PCM.PROGNOTE ---
Subjective Subjective Review of systems otherwise negative. He has remained hemodynamically stable.Patient seen and examined. He was lying comfortably in bed. He had no active complaints. Review of systems otherwise negative. Objective Data Objective Data Vital Signs: Vital Signs Temp Pulse Resp BP Pulse Ox O2 Del Method O2 Flow Rate 98.5 F 71 16 126/68 H 95 Nasal Cannula 2 12/06/23 08:45 12/06/23 08:45 12/06/23 08:45 12/06/23 08:45 12/06/23 08:45 12/06/23 08:45 12/06/23 08:45 Oxygen Flow Rate (L/min) 2 Oxygen Delivery Method Nasal Cannula Weight: 140 lb 10.479 oz Body Mass Index (BMI) 19.1 Intake & Output: Intake and Output for Last 24 Hours 12/04/23 12/05/23 12/06/23 23:59 23:59 23:59 Intake Total 4835.83 / 4835.83 4030.41 / 4030.41 1156.67 / 1156.67 Output Total 3350 / 3350 2750 / 2750 2600 / 2600 Balance 1485.83 / 1485.83 1280.41 / 1280.41 -1443.33 / -1443.33 Lab / Micro Data 12/06/23 06:30 12/06/23 06:30 Labs: Laboratory Results - last 24 hr 12/04/23 11:25: IgG 1257, IgA 348, IgM 31, Serum Immunofixation Comment 12/06/23 06:30: WBC 14.3 H, RBC 2.57 L, Hgb 8.2 L, Hct 25.6 L, MCV 99.6 H, MCH 31.9, MCHC 32.0, RDW Std Deviation 51.9 H, RDW Coeff of Issa 14.2, Plt Count 284, MPV 9.5, Immature Gran % (Auto) 0.500, Neut % (Auto) 85.5 H, Lymph % (Auto) 6.0 L, [place] % (Auto) 4.6, Eos % (Auto) 3.2, Baso % (Auto) 0.2, Absolute Neuts (auto) 12.2 H, Absolute Lymphs (auto) 0.85, Nucleated RBC % 0, Sodium 139, Potassium 2.9 L, Chloride 106, Carbon Dioxide 28.0, Anion Gap 5, BUN 26 H, Creatinine 1.63 H, Estim Creat Clear Calc 36.42, Est GFR (MDRD) Af Amer 54 L, Est GFR (MDRD) Non-Af 44 L, BUN/Creatinine Ratio 16.0, Glucose 97, Calcium 8.6 Micro: Microbiology 12/04/23 07:00 Sputum, Expectorated/Coughed Gram Stain - Final 12/04/23 07:00 Sputum, Expectorated/Coughed Respiratory Culture - Final Escherichia coli Staphylococcus aureus 12/03/23 17:06 Urine Catheter - Catheter Urine Culture - Final Culture exhibits no growth. 12/03/23 22:30 Mucosa - Nasopharyngeal Respiratory Panel (PCR) - Final 12/03/23 17:05 Urine Catheter - Catheter Legionella Antigen - Final 12/03/23 17:05 Urine Catheter - Catheter Streptococcus pneumoniae Antigen (M - Final Physical Exam Const alert, oriented x3 and no apparent distress Constitutional Narrative: frail, elderly General Appearance: cooperative HEENT normocephalic and head/scalp atraumatic Eyes PERRL and EOMs intact bilaterally Neck no lymphadenopathy and supple Lymph Lymphatic: no lymphadenopathy noted and no lymphedema noted Resp Resp Narrative: mildly diminished breath sounds bibasally, no wheezes or crackles.On 2L of oxygen by nasal canula Cardio regular rate, regular rhythm, S1 normal heart sound, S2 normal heart sound and no murmurs GI normal to inspection, nondistended, normoactive bowel sounds, soft to palpation, non-tender and non-distended Extremity normal capillary refill, no clubbing, cyanosis or edema and no calf tenderness Skin General Skin Exam: no breakdown Neuro CN's II-XII intact bilaterally, no focal motor deficits and no sensory deficits noted Motor Exam: general weakness Psych thought process normal and cooperative Appearance: appropriate Assessment & Plan Assessment/Plan (1) NELSON (acute kidney injury): PLAN: #NELSON with hyperkalemia Creatinine was 8.75 on admission with baseline creatinine around 0.9-1. Creatinine down down to 1.63. CT abdomen and pelvis showed evidence of urine retention. He had a Rocha catheter inserted and had 2.5 L of urine drained. Rocha catheter still in situ. Potassium was also markedly elevated. He was started on bicarb drip. Also on Flomax. Rocha catheter remains in situ. Potassium has trended down with multiple doses of Kayexalate. Nephrology on board. #COPD in the setting of chronic respiratory failure On 2 L of oxygen. Breathing treatments bronchodilators. Titrate oxygen to maintain saturation above 90%. Not in exacerbation. #Left lower lobe consolidation due to presumptive pneumonia Chest x-ray showed left lower lobe and lingula consolidations. Patient denies any cough and is on his baseline 2 L of oxygen. Started on IV ceftriaxone and azithromycin empirically. Urine for strep and Legionella negative. Sputum cultures growing Staph aureus E. coli both of which are sensitive to Bactrim so we will switch antibiotics to Bactrim. WBC is up to 14 today. #Hyperkalemia: Likely due to NELSON. Resolved. #Hypertension: Lisinopril held due to NELSON and hyperkalemia. On atenolol. IV hydralazine as needed. #Hyperlipidemia: On statin #GERD: On PPI continue DVT prophylaxis: Heparin Disposition: Will likely benefit from placement. Case management on board. Charges/Coding Visit Charges Inpatient E&M: 32899 Subs Hosp L2
[2023-12-06] MEDS: Smz/Tmp Ds Tablet 1 TABLET PO (11:08)
--- NOTE | 2023-12-06 11:55 | PCM.PN.REN ---
Subjective Subjective No new complaints Objective Data Objective Data Vital Signs: Vital Signs Temp Pulse Resp BP Pulse Ox O2 Del Method O2 Flow Rate 98.5 F 71 16 126/68 H 95 Nasal Cannula 2 12/06/23 08:45 12/06/23 08:45 12/06/23 08:45 12/06/23 08:45 12/06/23 08:45 12/06/23 08:45 12/06/23 11:10 Oxygen Flow Rate (L/min) 2 Oxygen Delivery Method Nasal Cannula Weight: 63.8 kg Body Mass Index (BMI) 19.1 Intake & Output: Intake and Output for Last 24 Hours 12/04/23 12/05/23 12/06/23 23:59 23:59 23:59 Intake Total 4835.83 / 4835.83 4030.41 / 4030.41 1356.67 / 1356.67 Output Total 3350 / 3350 2750 / 2750 2600 / 2600 Balance 1485.83 / 1485.83 1280.41 / 1280.41 -1243.33 / -1243.33 Lab / Micro Data 12/06/23 06:30 12/06/23 06:30 Labs: Laboratory Results - last 24 hr 12/04/23 11:25: IgG 1257, IgA 348, IgM 31, Serum Immunofixation Comment 12/06/23 06:30: WBC 14.3 H, RBC 2.57 L, Hgb 8.2 L, Hct 25.6 L, MCV 99.6 H, MCH 31.9, MCHC 32.0, RDW Std Deviation 51.9 H, RDW Coeff of Issa 14.2, Plt Count 284, MPV 9.5, Immature Gran % (Auto) 0.500, Neut % (Auto) 85.5 H, Lymph % (Auto) 6.0 L, [place] % (Auto) 4.6, Eos % (Auto) 3.2, Baso % (Auto) 0.2, Absolute Neuts (auto) 12.2 H, Absolute Lymphs (auto) 0.85, Nucleated RBC % 0, Sodium 139, Potassium 2.9 L, Chloride 106, Carbon Dioxide 28.0, Anion Gap 5, BUN 26 H, Creatinine 1.63 H, Estim Creat Clear Calc 36.42, Est GFR (MDRD) Af Amer 54 L, Est GFR (MDRD) Non-Af 44 L, BUN/Creatinine Ratio 16.0, Glucose 97, Calcium 8.6 Micro: Microbiology 12/04/23 07:00 Sputum, Expectorated/Coughed Gram Stain - Final 12/04/23 07:00 Sputum, Expectorated/Coughed Respiratory Culture - Final Escherichia coli Staphylococcus aureus 12/03/23 17:06 Urine Catheter - Catheter Urine Culture - Final Culture exhibits no growth. 12/03/23 22:30 Mucosa - Nasopharyngeal Respiratory Panel (PCR) - Final 12/03/23 17:05 Urine Catheter - Catheter Legionella Antigen - Final 12/03/23 17:05 Urine Catheter - Catheter Streptococcus pneumoniae Antigen (M - Final Physical Exam Narrative Alert and oriented x3 S1, S2, RRR Lung sounds clear anteriorly Abdomen soft, nontender No edema Indwelling Rocha, pinkish colored urine Assessment & Plan Assessment/Plan (1) NELSON (acute kidney injury): PLAN: Plan This is a 73-year-old male with past medical history significant for COPD with chronic hypoxic respiratory failure, former tobacco use, hypertension, hyperlipidemia, GERD with history of GI bleed, history of kidney stones, chronic anemia who presented to the emergency room yesterday with complaints of inability to urinate, confusion, Rocha placed in the emergency room with immediate return of 2 L of urine into bag. - NELSON with normal baseline SCr likely from obstruction. Likely obstructive nephropathy. Creatinine is down to 1.6. Output is decent. Since creatinine is close to baseline, can stop IV fluids. He will need to follow-up with urology for consideration of Rocha catheter removal. Will probably need Rocha catheter at the time of discharge. Hypernatremia. Better. DC IV fluids Hypokalemia. Repleted this morning Hypercalcemia. Presented admission. Now resolved. SPEP negative. PTH is not high.
--- NOTE | 2023-12-06 13:10 | CASEMGMT ---
Addendum entered by Tia Hou 12/06/23 13:46: Social Work TCU is not able to take pt. SW let significant other Judy know. SW asked Judy to look at the list again for additional choices if [facility] and [facility] cannot take pt, SW to follow up w/Judy Saturday for additional choices. We also discussed [facility], SW let her know that they had been full, SW can check back w/them, she would appreciate this. SW called [facility], as per Jada they may have a bed by Saturday. Updated referral sent. SW let Judy know and pt know. Pt much more alert today, having coherent conversation w/SUNITA and Judy. Pt became tearful when talking about his health. SW offered support. SW will continue to follow, will follow up w/Judy on Saturday. DEE Pierce Original Note: Social Work Pt did participate in PT/OT today. SW left a message in TCU for [facility] to review the referral. SUNITA also sent referrals to [facility] and [facility] via [facility]. SUNITA called [facility] to let them know the referral is there, spoke w/Anamaria. She states she will look at it, however she may not be able to get an answer until Saturday as her cloud administrator left for today. DEE Pierce
--- NOTE | 2023-12-06 13:15 | CASEMGMT ---
Social Work Pt's significant other did bring in LW/POA paperwork showing Judy Regan is healthcare POA. Copies placed on the chart. DEE Pierce
--- NOTE | 2023-12-06 15:09 | CASEMGMT ---
Addendum entered by Amanda Martin 12/06/23 16:02: Patients family chose [facility]. [facility] asked to disregard referral. SW updated. Amanda Martin, Discharge Planning Asst. Original Note: Discharge Planning Patient has been accepted by [facility]. Declined by [facility]. SUNITA updated. Amanda Martin, Discharge Planning Asst.
[2023-12-06] MEDS: Tamsulosin HCl 0.4 MG Capsule 0.400000000000000022 MG PO (18:03)
--- NOTE | 2023-12-06 18:49 | NURSING ---
report called to med-surg for transfer to room 323, informed of transfer & new room number
[2023-12-06] MEDS: Pravastatin 40 MG Tablet PO (22:14)
[2023-12-06] MEDS: Smz/Tmp Ds Tablet 0.5 TABLET PO (22:14)
[2023-12-06] MEDS: 0.9% Saline Lock 10 ML Syringe IV (22:34)
[2023-12-07] VITALS (9 sets, daily range): BP systolic 92–131; BP diastolic 54–85; PULSE 75–91; RESP 16–18; TEMP 36.6–37.2; O2SAT 2–100; BMI 18.8
[2023-12-07 06:45] LABS: Absolute Lymphocyte Count 0.88 X10^3/uL (0.83-4.51); Absolute Neutrophil Count 9.2 X10^3/uL (2.0-7.7); Basophil# 0.03 X10^3/uL; Basophil% 0.3 % (0-1); Eosinophil# 0.48 X10^3/uL; Eosinophils% 4.2 % (0-5); Hemoglobin 7.7 g/dL (13.0-16.5); Lymphocyte # 0.88 X10^3/ul (0.83-4.51); Lymphocyte % 7.8 % (19-41); Mean Corp Hgb Conc 32.1 g/dL (32-36); Mean Corpuscular Hgb 32.5 pg (27.0-32.0); Mean Corpuscular Volume 101.3 fL (80-94); Mean Platelet Vol. 9.5 fl (6.2-12.0); Monocyte# 0.66 X10^3/uL; Monocyte% 5.8 % (0-10); NRBC Flagged by Analyzer 0 % (0-5); Neutrophil # 9.23 X10^3/uL (2.7-7.7); Neutrophil % 81.3 % (47-70); Platelet Count 292 K/mm3 (150-450); RBC Distribution Width CV 14.2 % (11.6-14.6); RBC Distribution Width SD 52.2 fl (35.1-43.9); Red Blood Count 2.37 M/mm3 (4.6-6.2); White Blood Count 11.4 K/mm3 (4.4-11.0)
[2023-12-07] MEDS: Ipratropium/Albuterol Sulfate 3 ML AMPUL.NEB INHALATION ×3 (07:01→19:55)
[2023-12-07] MEDS: Docusate Sodium 100 MG Capsule PO (07:34)
[2023-12-07] MEDS: Atenolol 50 MG Tablet PO (07:34)
[2023-12-07] MEDS: Fluticasone 0.05% 1 SPRAY NASAL.SRY 2 SPRAY NASAL (07:35)
[2023-12-07] MEDS: Smz/Tmp Ds Tablet 0.5 TABLET PO ×2 (07:35→20:22)
[2023-12-07] MEDS: Pantoprazole Sodium 40 MG in 0.9% Normal Saline (100mL MB+) 100 ML 330 MG IV ×2 (07:39→20:22)
[2023-12-07 08:04] LABS: Anion Gap 4 (5-15); BUN 18 mg/dL (7-18); BUN/Creat Ratio 14.4 RATIO (10-20); Calcium,Total 8.4 mg/dL (8.5-10.1); Chloride 109 mmol/L (98-107); Creatinine, Serum 1.25 mg/dL (0.70-1.30); EST Glomerular Filtration Rate 60 mL/min (>60); Est Glom Filt Rate - Afr Amer 73 mL/min (>60); Estimated Creatinine Clearance 47.05 ml/min; Glucose 89 mg/dL (74-106); Potassium 3.2 mmol/L (3.5-5.1); Sodium Level 140 mmol/L (136-145)
--- NOTE | 2023-12-07 10:58 | CASEMGMT ---
Social Work SW called pt's significant other, let her know [facility] will have a bed on Saturday. She is agreeable to pt going on Saturday. We talked about how pt will get to [facility], SW suggested we set up transport rather than her trying to take pt, as he may have a tough time getting in and out of the family care. Judy states understanding and in agreement. She is coming in today and is going to explain everything to pt. SW to follow up Saturday for discharge to [facility], skilled level of care. DEE Pierce
--- NOTE | 2023-12-07 11:54 | PN_ITS ---
Subjective Subjective Patient seen and examined. He had no active complaints today. He had an uneventful night. Review of systems otherwise negative. Potassium is 3.2 today. Creatinine has normalized to 1.25. Objective Data Objective Data Vital Signs: Vital Signs Temp Pulse Resp BP Pulse Ox O2 Del Method O2 Flow Rate 98 F 91 16 131/85 H 99 Room Air 2 12/07/23 08:51 12/07/23 08:51 12/07/23 08:51 12/07/23 08:51 12/07/23 08:51 12/07/23 08:51 12/07/23 07:55 Oxygen Flow Rate (L/min) 2 Oxygen Delivery Method Room Air Weight: 139 lb 5.314 oz Body Mass Index (BMI) 18.8 Intake & Output: Intake and Output for Last 24 Hours 12/05/23 12/06/23 12/07/23 23:59 23:59 23:59 Intake Total 4030.41 / 4030.41 2911.67 / 3511.67 1021 / 1021 Output Total 2750 / 2750 3600 / 4000 2100 / 2100 Balance 1280.41 / 1280.41 -688.33 / -488.33 -1079 / -1079 Lab / Micro Data 12/07/23 05:22 12/07/23 05:22 Labs: Laboratory Results - last 24 hr 12/07/23 05:22: WBC 11.4 H, RBC 2.37 L, Hgb 7.7 L, Hct 24.0 L, MCV 101.3 H, MCH 32.5 H, MCHC 32.1, RDW Std Deviation 52.2 H, RDW Coeff of Issa 14.2, Plt Count 292, MPV 9.5, Immature Gran % (Auto) 0.600, Neut % (Auto) 81.3 H, Lymph % (Auto) 7.8 L, [place] % (Auto) 5.8, Eos % (Auto) 4.2, Baso % (Auto) 0.3, Absolute Neuts (auto) 9.2 H, Absolute Lymphs (auto) 0.88, Nucleated RBC % 0, Sodium 140, Potassium 3.2 L, Chloride 109 H, Carbon Dioxide 27.0, Anion Gap 4 L, BUN 18, Creatinine 1.25, Estim Creat Clear Calc 47.05, Est GFR (MDRD) Af Amer 73, Est GFR (MDRD) Non-Af 60, BUN/Creatinine Ratio 14.4, Glucose 89, Calcium 8.4 L Micro: Microbiology 12/04/23 07:00 Sputum, Expectorated/Coughed Gram Stain - Final 12/04/23 07:00 Sputum, Expectorated/Coughed Respiratory Culture - Final Escherichia coli Staphylococcus aureus 12/03/23 17:06 Urine Catheter - Catheter Urine Culture - Final Culture exhibits no growth. 12/03/23 22:30 Mucosa - Nasopharyngeal Respiratory Panel (PCR) - Final 12/03/23 17:05 Urine Catheter - Catheter Legionella Antigen - Final 12/03/23 17:05 Urine Catheter - Catheter Streptococcus pneumoniae Antigen (M - Final Physical Exam Const alert, oriented x3 and no apparent distress Constitutional Narrative: frail, elderly General Appearance: cooperative HEENT normocephalic and head/scalp atraumatic Eyes PERRL and EOMs intact bilaterally Neck no lymphadenopathy and supple Lymph Lymphatic: no lymphadenopathy noted and no lymphedema noted Resp Resp Narrative: mildly diminished breath sounds bibasally, no wheezes or crackles.On room air. Cardio regular rate, regular rhythm, S1 normal heart sound, S2 normal heart sound and no murmurs GI normal to inspection, nondistended, normoactive bowel sounds, soft to palpation, non-tender and non-distended Extremity normal capillary refill, no clubbing, cyanosis or edema and no calf tenderness General Extremity: no tenderness to palpation of joints or extremities Skin General Skin Exam: no breakdown Neuro CN's II-XII intact bilaterally, no focal motor deficits and no sensory deficits noted Motor Exam: general weakness Psych thought process normal and cooperative Appearance: appropriate Assessment & Plan Assessment/Plan (1) NELSON (acute kidney injury): PLAN: #NELSON with hyperkalemia * Resolved. Creatinine down to normal. Potassium is actually low at 3.2 today. On Flomax. * Will need follow-up with urology on outpatient basis and will need to be discharged with Rocha catheter in situ. NELSON was likely due to urine outlet obstruction. * Nephrology on board. * #COPD in the setting of chronic respiratory failure * On 2 L of oxygen. * Breathing treatments bronchodilators. Titrate oxygen to maintain saturation above 90%. Not in exacerbation. #Left lower lobe consolidation due to presumptive pneumonia * Chest x-ray showed left lower lobe and lingula consolidations. Patient denies any cough and is on his baseline 2 L of oxygen. Started on IV ceftriaxone and azithromycin empirically. * Urine for strep and Legionella negative. * Sputum cultures growing Staph aureus E. coli WBC is down to 11.4 * on bactrim. * #Hyperkalemia: Likely due to NELSON. Resolved. #Hypokalemia: potassium is 3.2. Will replace and trend. #Hypertension: Lisinopril held due to NELSON and hyperkalemia. On atenolol. IV hydralazine as needed. #Hyperlipidemia: On statin #GERD: On PPI continue DVT prophylaxis: Heparin Disposition: Will likely benefit from placement. Case management on board. Charges/Coding Visit Charges Inpatient E&M: 02670 Subs Hosp L2
[2023-12-07] MEDS: Potassium Chloride Oral Tablet 20 MEQ 40 MEQ PO (12:37)
[2023-12-07] MEDS: HYDROcodone Bitartrate/Apap 5/325 Tablet PO ×2 (13:49→20:21)
[2023-12-07] MEDS: Tamsulosin HCl 0.4 MG Capsule 0.400000000000000022 MG PO (17:19)
[2023-12-07] MEDS: Ondansetron 4 MG/2 ML Vial IV (18:35)
[2023-12-07] MEDS: 0.9% Saline Lock 10 ML Syringe IV ×2 (18:35→20:23)
--- NOTE | 2023-12-07 19:05 | PCM.PN.REN ---
Subjective Subjective Following for NELSON. The patient denies chest pain, shortness of breath, or nausea. Appetite remains marginal. He has been trying to push fluid. Objective Data Objective Data Vital Signs: Vital Signs Temp Pulse Resp BP Pulse Ox O2 Del Method O2 Flow Rate 98.8 F 80 16 107/64 97 Nasal Cannula 2 12/07/23 16:13 12/07/23 16:13 12/07/23 16:13 12/07/23 16:13 12/07/23 16:13 12/07/23 16:13 12/07/23 16:13 Oxygen Flow Rate (L/min) 2 Oxygen Delivery Method Nasal Cannula Weight: 63.2 kg Body Mass Index (BMI) 18.8 Intake & Output: Intake and Output for Last 24 Hours 12/05/23 12/06/23 12/07/23 23:59 23:59 23:59 Intake Total 4030.41 / 4030.41 2911.67 / 3511.67 1921 / 1921 Output Total 2750 / 2750 3600 / 4000 2600 / 2600 Balance 1280.41 / 1280.41 -688.33 / -488.33 -679 / -679 Lab / Micro Data 12/07/23 05:22 12/07/23 05:22 Labs: Laboratory Results - last 24 hr 12/07/23 05:22: WBC 11.4 H, RBC 2.37 L, Hgb 7.7 L, Hct 24.0 L, MCV 101.3 H, MCH 32.5 H, MCHC 32.1, RDW Std Deviation 52.2 H, RDW Coeff of [place]a 14.2, Plt Count 292, MPV 9.5, Immature Gran % (Auto) 0.600, Neut % (Auto) 81.3 H, Lymph % (Auto) 7.8 L, [place] % (Auto) 5.8, Eos % (Auto) 4.2, Baso % (Auto) 0.3, Absolute Neuts (auto) 9.2 H, Absolute Lymphs (auto) 0.88, Nucleated RBC % 0, Sodium 140, Potassium 3.2 L, Chloride 109 H, Carbon Dioxide 27.0, Anion Gap 4 L, BUN 18, Creatinine 1.25, Estim Creat Clear Calc 47.05, Est GFR (MDRD) Af Amer 73, Est GFR (MDRD) Non-Af 60, BUN/Creatinine Ratio 14.4, Glucose 89, Calcium 8.4 L Micro: Microbiology 12/07/23 16:15 Stool Stool Occult Blood (SINDY) - Final Occult Blood Positive 12/04/23 07:00 Sputum, Expectorated/Coughed Gram Stain - Final 12/04/23 07:00 Sputum, Expectorated/Coughed Respiratory Culture - Final Escherichia coli Staphylococcus aureus 12/03/23 17:06 Urine Catheter - Catheter Urine Culture - Final Culture exhibits no growth. 12/03/23 22:30 Mucosa - Nasopharyngeal Respiratory Panel (PCR) - Final 12/03/23 17:05 Urine Catheter - Catheter Legionella Antigen - Final 12/03/23 17:05 Urine Catheter - Catheter Streptococcus pneumoniae Antigen (M - Final Physical Exam Narrative Alert and oriented x3 S1, S2, RRR Lung sounds clear anteriorly Abdomen soft, nontender No edema Indwelling Rocha, pinkish colored urine Assessment & Plan Assessment/Plan (1) NELSON (acute kidney injury): PLAN: Plan Impression/Plan: This is a 73-year-old male with past medical history significant for COPD with chronic hypoxic respiratory failure, former tobacco use, hypertension, hyperlipidemia, GERD with history of GI bleed, history of kidney stones, chronic anemia who presented to the hospital on 12/03/2023 with complaints of inability to urinate, confusion. Rocha was placed in the emergency room with immediate return of 2 L of urine into bag. Acute kidney injury. The patient has normal baseline SCr. NELSON is secondary to obstructive nephropathy. Serum creatinine was 8.75 mg/dL on presentation 06/15/2024. Serum creatinine is down to 1.25 mg/dL today. The patient did have postobstructive diuresis with urine output of 3.6 L on 12/06/2023. Urine output has decreased to 2.6 L in the last 24 hours. BP is stable, so there is no need for IV fluid. There is no evidence of hyponatremia from polyuria. He will need to follow-up with urology for voiding trial and/or urodynamic testing prior to removal of Rocha catheter. Will probably need to discharge with Rocha catheter. Hypokalemia. Secondary to polyuria. There is no GI loss. There is no diarrhea. Continue to replace potassium deficit. Recheck potassium and magnesium levels tomorrow. Hypertension. The patient was on lisinopril prior to admission. HEIDI inhibitor is on hold because of NELSON. BP is acceptable without antihypertensive currently. Will continue to monitor BP.
[2023-12-07] MEDS: Pravastatin 40 MG Tablet PO (20:22)
[2023-12-07] MEDS: MELATONIN 3 MG TABLET PO (20:24)
[2023-12-08] VITALS (8 sets, daily range): BP systolic 101–111; BP diastolic 49–61; PULSE 71–89; RESP 16–18; TEMP 36.7–37.3; O2SAT 95–99; BMI 18.9
[2023-12-08 04:10] LABS: Absolute Lymphocyte Count 1.12 X10^3/uL (0.83-4.51); Absolute Neutrophil Count 7.6 X10^3/uL (2.0-7.7); Basophil# 0.05 X10^3/uL; Basophil% 0.5 % (0-1); Eosinophil# 0.58 X10^3/uL; Eosinophils% 5.6 % (0-5); Hematocrit 23.9 % (40-54); Hemoglobin 7.8 g/dL (13.0-16.5); Lymphocyte # 1.12 X10^3/ul (0.83-4.51); Lymphocyte % 10.9 % (19-41); Mean Corp Hgb Conc 32.6 g/dL (32-36); Mean Corpuscular Hgb 33.5 pg (27.0-32.0); Mean Corpuscular Volume 102.6 fL (80-94); Mean Platelet Vol. 8.8 fl (6.2-12.0); Monocyte# 0.77 X10^3/uL; Monocyte% 7.5 % (0-10); NRBC Flagged by Analyzer 0 % (0-5); Neutrophil # 7.64 X10^3/uL (2.7-7.7); Neutrophil % 74.4 % (47-70); Platelet Count 267 K/mm3 (150-450); RBC Distribution Width CV 14.5 % (11.6-14.6); RBC Distribution Width SD 53.9 fl (35.1-43.9); Red Blood Count 2.33 M/mm3 (4.6-6.2); White Blood Count 10.3 K/mm3 (4.4-11.0)
[2023-12-08 04:25] LABS: Albumin, Serum 2.2 g/dL (3.2-5.0); BUN 18 mg/dL (7-18); BUN/Creat Ratio 14.1 RATIO (10-20); Calcium,Total 7.9 mg/dL (8.5-10.1); Chloride 109 mmol/L (98-107); Creatinine, Serum 1.28 mg/dL (0.70-1.30); EST Glomerular Filtration Rate 59 mL/min (>60); Est Glom Filt Rate - Afr Amer 71 mL/min (>60); Estimated Creatinine Clearance 46.16 ml/min; Glucose 106 mg/dL (74-106); Phosphorus 1.3 mg/dL (2.5-4.9); Potassium 3.5 mmol/L (3.5-5.1); Sodium Level 140 mmol/L (136-145)
[2023-12-08] MEDS: Ipratropium/Albuterol Sulfate 3 ML AMPUL.NEB INHALATION ×3 (07:30→19:46)
[2023-12-08] MEDS: Smz/Tmp Ds Tablet 0.5 TABLET PO ×2 (08:14→21:33)
[2023-12-08] MEDS: Fluticasone 0.05% 1 SPRAY NASAL.SRY 2 SPRAY NASAL (08:16)
[2023-12-08] MEDS: Atenolol 50 MG Tablet PO (08:16)
[2023-12-08] MEDS: Docusate Sodium 100 MG Capsule PO (08:16)
[2023-12-08] MEDS: Pantoprazole Sodium 40 MG in 0.9% Normal Saline (100mL MB+) 100 ML 330 MG IV ×2 (08:22→21:32)
[2023-12-08] MEDS: 0.9% Saline Lock 10 ML Syringe IV ×3 (09:49→21:32)
[2023-12-08] MEDS: Ondansetron 4 MG/2 ML Vial IV ×2 (09:49→20:11)
[2023-12-08] MEDS: Acetaminophen 325 MG Tablet 650 MG PO (09:49)
--- NOTE | 2023-12-08 09:55 | PN_ITS ---
Subjective Subjective Patient seen and examined. He had no complaints today. He had an uneventful night. Review of systems otherwise negative. His Hemoccult was positive for blood. This had been ordered on admission. His hemoglobin today 7.8. Will consult gastroenterology. He has otherwise remained hemodynamically stable. Objective Data Objective Data Vital Signs: Vital Signs Temp Pulse Resp BP Pulse Ox O2 Del Method O2 Flow Rate 98.2 F 72 16 102/58 L 95 Room Air 2 12/08/23 08:25 12/08/23 08:25 12/08/23 08:25 12/08/23 08:25 12/08/23 08:25 12/08/23 08:28 12/08/23 07:28 Oxygen Flow Rate (L/min) 2 Oxygen Delivery Method Room Air Weight: 139 lb 15.896 oz Body Mass Index (BMI) 18.9 Intake & Output: Intake and Output for Last 24 Hours 12/06/23 12/07/23 12/08/23 23:59 23:59 23:59 Intake Total 2911.67 / 3511.67 2031 / 2431 760 / 760 Output Total 3600 / 4000 2600 / 3200 1000 / 1000 Balance -688.33 / -488.33 -569 / -769 -240 / -240 Lab / Micro Data 12/08/23 04:00 12/08/23 04:00 Labs: Laboratory Results - last 24 hr 12/08/23 04:00: WBC 10.3, RBC 2.33 L, Hgb 7.8 L, Hct 23.9 L, MCV 102.6 H, MCH 33.5 H, MCHC 32.6, RDW Std Deviation 53.9 H, RDW Coeff of [place]a 14.5, Plt Count 267, MPV 8.8, Immature Gran % (Auto) 1.100 H, Neut % (Auto) 74.4 H, Lymph % (Auto) 10.9 L, [place] % (Auto) 7.5, Eos % (Auto) 5.6 H, Baso % (Auto) 0.5, Absolute Neuts (auto) 7.6, Absolute Lymphs (auto) 1.12, Nucleated RBC % 0, Sodium 140, Potassium 3.5, Chloride 109 H, Carbon Dioxide 28.0, BUN 18, Creatinine 1.28, Estim Creat Clear Calc 46.16, Est GFR (MDRD) Af Amer 71, Est GFR (MDRD) Non-Af 59 L, BUN/Creatinine Ratio 14.1, Glucose 106, Calcium 7.9 L, Phosphorus 1.3 L, Albumin 2.2 L Micro: Microbiology 12/07/23 16:15 Stool Stool Occult Blood (SINDY) - Final Occult Blood Positive 12/04/23 07:00 Sputum, Expectorated/Coughed Gram Stain - Final 12/04/23 07:00 Sputum, Expectorated/Coughed Respiratory Culture - Final Escherichia coli Staphylococcus aureus 12/03/23 17:06 Urine Catheter - Catheter Urine Culture - Final Culture exhibits no growth. 12/03/23 22:30 Mucosa - Nasopharyngeal Respiratory Panel (PCR) - Final 12/03/23 17:05 Urine Catheter - Catheter Legionella Antigen - Final 12/03/23 17:05 Urine Catheter - Catheter Streptococcus pneumoniae Antigen (M - Final Physical Exam Const alert, oriented x3 and no apparent distress Constitutional Narrative: frail, elderly General Appearance: cooperative HEENT normocephalic, head/scalp atraumatic and moist oral mucous membranes Eyes PERRL and EOMs intact bilaterally Neck no lymphadenopathy, supple and no JVD Lymph Lymphatic: no lymphadenopathy noted and no lymphedema noted Resp Resp Narrative: mildly diminished breath sounds bibasally, no wheezes or crackles.On room air. Cardio regular rate, regular rhythm, S1 normal heart sound, S2 normal heart sound and no murmurs GI normal to inspection, nondistended, normoactive bowel sounds, soft to palpation, non-tender and non-distended Extremity normal capillary refill, no clubbing, cyanosis or edema and no calf tenderness General Extremity: no tenderness to palpation of joints or extremities Skin General Skin Exam: no breakdown Neuro CN's II-XII intact bilaterally, no focal motor deficits and no sensory deficits noted Motor Exam: general weakness Psych thought process normal and cooperative Appearance: appropriate Assessment & Plan Assessment/Plan (1) NELSON (acute kidney injury): PLAN: #NELSON with hyperkalemia * Resolved. Creatinine down to normal. on flomax. potassium is 3.5 today. * Will need follow-up with urology on outpatient basis and will need to be discharged with Rocha catheter in situ. NELSON was likely due to urine outlet obstruction. * Nephrology on board. * #COPD in the setting of chronic respiratory failure * On 2 L of oxygen. * Breathing treatments bronchodilators. Titrate oxygen to maintain saturation above 90%. Not in exacerbation. #Left lower lobe consolidation due to presumptive pneumonia * Chest x-ray showed left lower lobe and lingula consolidations. Patient denies any cough and is on his baseline 2 L of oxygen. Started on IV ceftriaxone and azithromycin empirically. * Urine for strep and Legionella negative. * Sputum cultures growing Staph aureus E. coli * on bactrim. * * #Anemia * hb today is 7.8. * Hb was as low as 6.4 during this admission though on repeat it was 7.7. * stool for occult blood is positive * consult GI * #Hyperkalemia: Likely due to NELSON. Resolved. #Hypokalemia:resolved. K is 3.5 today. #Hypertension: Lisinopril held due to NELSON and hyperkalemia. On atenolol. IV hydralazine as needed. #Hyperlipidemia: On statin #GERD: stool for occult blood positive. IV PPI DVT prophylaxis: SCDs. DC heparin due to anemia and positive occult blood. Disposition: Will likely benefit from placement. Case management on board. Charges/Coding Visit Charges Inpatient E&M: 16240 Subs Hosp L2
--- NOTE | 2023-12-08 13:15 | EX.PCM.CON.G ---
HPI Consult Data Date of Consult: 12/08/23 HPI Narrative Reason for Consultation: Anemia HPI Narrative: PEDRO ALBRECHT, is a 73 y/o M with past medical history of chronic anemia and weight loss who presents to the [facility] ED on 12/03/23 with history of inability to urinate for the last 48 hours. He has a past medical history significant for COPD with chronic hypoxic respiratory failure, former tobacco use, hypertension, hyperlipidemia, GERD with history of GI bleed, history of kidney stones. In the ED patient with significant urinary retention with Rocha catheter placed with 2 L urine output immediately noted. Patient in the emergency room cannot give any appropriate information about his recent status and is extremely confused although he is able to carry a conversation and is extremely irritable but clearly cannot give exact data. Workup in the ED included T98.1, heart 60, BP 177/104, respiratory rate 15, 90% on 3 L nasal cannula and for review of most recent records patient previously also been on 2.5 to 3 L nasal cannula CBC with WBC 11.9, hemoglobin 9.5, MCV 102.7, platelet 339 with left shift and lymphopenia, CMP with sodium 134, potassium 8.4 noted to be slightly hemolyzed, carbon oxide 19, anion gap 10, BUN/creatinine 102/8.75, calcium 11.6, hepatic profile not marked appearing, total creatinine kinase 112, urinalysis with specific remedy 1.010, protein 30, ketone negative, occult blood 150, urine nitrite negative, leukocyte esterase 25 with no obvious evidence of UTI, left lower lobe airspace disease, bilateral nonobstructing nephroliths, possible mild left hydronephrosis with no definite radiodense ureterolith. He was diagnosed with a postobstructive uropathy and had a Rocha catheter placed. Also his blood pressure medicines were held. His creatinine has been improving as well as his mental status. After talking to him he says he is lost over 200 pounds. He had an upper and lower scope back in September [address] Thomas for abdominal pain, weight loss and anemia. His ferritin was 137, iron 40 and TIBC is 14. I was called to see him because his hemoglobin drifted down to 7. [facility] Medical History Arthritis Arthritis Back pain Cardiology follow-up encounter Chronic pain Community acquired pneumonia COPD (chronic obstructive pulmonary disease) Depression Difficulty chewing Drop foot gait Forgetfulness Former smoker GERD (gastroesophageal reflux disease) High cholesterol History of echocardiogram History of GI bleed History of hiatal hernia History of stomach ulcers History of stress test Hyperlipidemia Hypertension IBS (irritable bowel syndrome) Neuropathy On home oxygen therapy Overdose Pneumonia Severe protein-calorie malnutrition Shortness of breath on exertion Syncope Wears dentures Wears glasses Home Medications multivitamin 1 tab PO DAILY supplement 07/01/21 [History Last Taken 10/08/23] pantoprazole 40 mg tablet,delayed release 40 mg PO QAM #90 tabs 10/29/22 [Rx Last Taken 10/09/23] glucosamine-chondroitin 250 mg-200 mg tablet (Osteo Bi-Flex) 2 tab PO DAILY 01/12/23 [History Last Taken 10/08/23] pravastatin 40 mg tablet 40 mg PO QHS #90 tabs 03/13/23 [Rx Last Taken 10/08/23] atenolol 50 mg tablet 50 mg PO DAILY #90 tabs 03/26/23 [Rx Last Taken 10/09/23] docusate sodium 100 mg capsule (Colace) 100 mg PO DAILY Constipation 08/01/23 [History Last Taken 10/08/23] fluticasone propionate 50 mcg/actuation nasal spray,suspension 2 spray intranasal DAILY #16 grams 08/20/23 [Rx Last Taken 10/08/23] albuterol sulfate 90 mcg/actuation aerosol inhaler See Rx Instructions .Route .COMPLEX #8.5 grams 10/22/23 [Rx Last Taken Unknown] carboxymethylcellulose sodium 0.5 % eye drops (Refresh Tears) 1 drp ophthalmic (eye) 4-6XD PRN dry eye(s) 10/22/23 [History Last Taken Unknown] ipratropium 0.5 mg-albuterol 3 mg (2.5 mg base)/3 mL nebulization soln 3 ml inhalation BID shortness of breath or wheezing #180 mL 10/22/23 [Rx Last Taken Unknown] rollator walker with seat #1 ea 11/05/23 [Rx Last Taken Unknown] lisinopril 10 mg tablet 10 mg PO 1600 #90 tabs 11/06/23 [Rx Last Taken Unknown] trazodone 100 mg tablet 100 mg PO QHS #90 tabs 11/06/23 [Rx Last Taken Unknown] hydrocodone 10 mg-acetaminophen 325 mg tablet 1 tab PO TID 1 month #90 tabs 11/20/23 [Rx Last Taken Unknown] Allergy/AdvReac Type Severity Reaction Status Date / Time aspirin Allergy Severe bleeding Verified 11/20/23 11:17 Family History Mother Myocardial infarction, Onset Age: 49 Depression Father Hypertension CVA (cerebral vascular accident), Onset Age: 49 Sister Thyroid disorder Uncle ulcers Surgical History History of bronchoscopy History of esophagogastroduodenoscopy (EGD) History of thoracic surgery Hx of colonoscopy Social History household members: spouse and significant other Smoking Status: Former smoker quit date: 07/14/21 alcohol intake: never substance use type: does not use what type of physical activity do you participate in: other details: yard work, house work ROS ROS Narrative 10 systems were reviewed with pertinent positives as noted in the HPI above. Physical Exam Const alert, oriented x3 and no apparent distress Constitutional Narrative: frail, elderly General Appearance: cooperative HEENT normocephalic, head/scalp atraumatic and moist oral mucous membranes Eyes PERRL and EOMs intact bilaterally Neck no lymphadenopathy, supple and no JVD Lymph Lymphatic: no lymphadenopathy noted and no lymphedema noted Resp Resp Narrative: mildly diminished breath sounds bibasally, no wheezes or crackles.On room air. Cardio regular rate, regular rhythm, S1 normal heart sound, S2 normal heart sound and no murmurs GI normal to inspection, nondistended, normoactive bowel sounds, soft to palpation, non-tender and non-distended Extremity normal capillary refill, no clubbing, cyanosis or edema and no calf tenderness General Extremity: no tenderness to palpation of joints or extremities Skin General Skin Exam: no breakdown Neuro CN's II-XII intact bilaterally, no focal motor deficits and no sensory deficits noted Motor Exam: general weakness Psych thought process normal and cooperative Appearance: appropriate Lab / Micro Data 12/09/23 09:00 12/09/23 04:40 Labs: Laboratory Results - last 24 hr 12/09/23 04:40: WBC 9.1, RBC 2.13 L, Hgb 7.0 L, Hct 22.3 L, MCV 104.7 H, MCH 32.9 H, MCHC 31.4 L, RDW Std Deviation 54.7 H, RDW Coeff of Issa 14.3, Plt Count 288, MPV 9.4, Immature Gran % (Auto) 1.500 H, Neut % (Auto) 68.4, Lymph % (Auto) 12.4 L, [place] % (Auto) 9.3, Eos % (Auto) 7.5 H, Baso % (Auto) 0.9, Absolute Neuts (auto) 6.2, Absolute Lymphs (auto) 1.12, Nucleated RBC % 0, Sodium 140, Potassium 3.9, Chloride 111 H, Carbon Dioxide 27.0, Anion Gap 2 L, BUN 18, Creatinine 1.17, Estim Creat Clear Calc 50.27, Est GFR (MDRD) Af Amer 79, Est GFR (MDRD) Non-Af 65, BUN/Creatinine Ratio 15.4, Glucose 102, Calcium 8.2 L 12/09/23 09:00: Hgb 7.0 L, Hct 22.1 L 12/09/23 10:35: Blood Type B POSITIVE, Antibody Screen POSITIVE, Antibody Identification ANTI-K, Antigen Identification K ANTIGEN - NEGATIVE, Crossmatch See Detail Micro: Microbiology 12/07/23 13:40 Sputum, Expectorated/Coughed Gram Stain - Final 12/07/23 13:40 Sputum, Expectorated/Coughed Respiratory Culture - Final Presumptive C albicans Assessment & Plan Assessment/Plan (1) NELSON (acute kidney injury): PLAN: Plan The patient is a 73 y/o M w/ PMHx: Chronic cognitive impairment of unclear etiology, COPD w/ Chronic Hypoxic Respiratory Failure, Chronic neuropathy, Former tobacco use, GERD w/ Hx GI bleed, HTN, HLD, Chronic anemia who presents to the [facility] ED on 12/03/23 with history of inability to urinate for the last 48 hours although from report possibly dribbling over himself with significant suprapubic discomfort with no recent fever, chills, nausea or emesis but reported confusion and agitation potentially related to urinary retention prompting family to bring him in for evaluation. Acute kidney injury with acute urinary retention with bilateral nonobstructing nephroliths and a possible mild left hydronephrosis causing postobstructive uropathy status post catheter placement. Chronic macrocytic and normocytic anemia: Admission hemoglobin 9.5, MCV 102.7, baseline previous hemoglobin noted 9.9 11/20/2023 however previous to this in 2022 hemoglobin ranged 9-12, his hemoglobin drifted down to 6.4 and after 1 unit is only at 7. He should undergo repeat upper endoscopy and possible capsule endoscopy to look for signs of atrophic gastritis which can cause iron deficiency, B12 deficiency and contribute to anemia chronic disease, celiac disease which can cause iron deficiency, autoimmune gastritis which can cause iron deficiency. He was explained alternatives, risk, benefits including not withstanding bleeding, infection,'s, perforation, need for emergent urgent . He will have an ASA of 3. Recommend to check antiparietal cell antibody, antiintrinsic factor antibody, HOMAR, celiac profile. Charges/Coding Visit Charges Inpatient E&M: 85630 Init Hosp L3
[2023-12-08] MEDS: HYDROcodone Bitartrate/Apap 5/325 Tablet PO ×2 (13:18→21:32)
[2023-12-08] MEDS: Tamsulosin HCl 0.4 MG Capsule 0.400000000000000022 MG PO (16:58)
--- NOTE | 2023-12-08 17:12 | PCM.PN.REN ---
Subjective Subjective Following for NELSON. The patient denies chest pain, shortness of breath, or nausea. There is no diarrhea. Objective Data Objective Data Vital Signs: Vital Signs Temp Pulse Resp BP Pulse Ox O2 Del Method O2 Flow Rate 98.1 F 80 16 101/59 L 95 Room Air 2 12/08/23 15:45 12/08/23 15:45 12/08/23 15:45 12/08/23 15:45 12/08/23 15:45 12/08/23 15:45 12/08/23 15:38 Oxygen Flow Rate (L/min) 2 Oxygen Delivery Method Room Air Weight: 63.5 kg Body Mass Index (BMI) 18.9 Intake & Output: Intake and Output for Last 24 Hours 12/06/23 12/07/23 12/08/23 23:59 23:59 23:59 Intake Total 2911.67 / 3511.67 2031 / 2431 1260 / 1260 Output Total 3600 / 4000 2600 / 3200 1550 / 1550 Balance -688.33 / -488.33 -569 / -769 -290 / -290 Lab / Micro Data 12/08/23 04:00 12/08/23 04:00 Labs: Laboratory Results - last 24 hr 12/08/23 04:00: WBC 10.3, RBC 2.33 L, Hgb 7.8 L, Hct 23.9 L, MCV 102.6 H, MCH 33.5 H, MCHC 32.6, RDW Std Deviation 53.9 H, RDW Coeff of Issa 14.5, Plt Count 267, MPV 8.8, Immature Gran % (Auto) 1.100 H, Neut % (Auto) 74.4 H, Lymph % (Auto) 10.9 L, [place] % (Auto) 7.5, Eos % (Auto) 5.6 H, Baso % (Auto) 0.5, Absolute Neuts (auto) 7.6, Absolute Lymphs (auto) 1.12, Nucleated RBC % 0, Sodium 140, Potassium 3.5, Chloride 109 H, Carbon Dioxide 28.0, BUN 18, Creatinine 1.28, Estim Creat Clear Calc 46.16, Est GFR (MDRD) Af Amer 71, Est GFR (MDRD) Non-Af 59 L, BUN/Creatinine Ratio 14.1, Glucose 106, Calcium 7.9 L, Phosphorus 1.3 L, Albumin 2.2 L Micro: Microbiology 12/07/23 13:40 Sputum, Expectorated/Coughed Gram Stain - Final 12/07/23 16:15 Stool Stool Occult Blood (SINDY) - Final Occult Blood Positive 12/04/23 07:00 Sputum, Expectorated/Coughed Gram Stain - Final 12/04/23 07:00 Sputum, Expectorated/Coughed Respiratory Culture - Final Escherichia coli Staphylococcus aureus 12/03/23 17:06 Urine Catheter - Catheter Urine Culture - Final Culture exhibits no growth. 12/03/23 22:30 Mucosa - Nasopharyngeal Respiratory Panel (PCR) - Final 12/03/23 17:05 Urine Catheter - Catheter Legionella Antigen - Final 12/03/23 17:05 Urine Catheter - Catheter Streptococcus pneumoniae Antigen (M - Final Physical Exam Narrative Alert and oriented x3 S1, S2, RRR Lung sounds clear anteriorly Abdomen soft, nontender No edema Indwelling Rocha, pinkish colored urine Assessment & Plan Assessment/Plan (1) NELSON (acute kidney injury): (2) Hypokalemia: (3) Hypertension: QUALIFIERS: Hypertension type: essential hypertension Qualified Code(s): I10 - Essential (primary) hypertension PLAN: Plan Impression/Plan: This is a 73-year-old male with past medical history significant for COPD with chronic hypoxic respiratory failure, former tobacco use, hypertension, hyperlipidemia, GERD with history of GI bleed, history of kidney stones, chronic anemia who presented to the hospital on 12/03/2023 with complaints of inability to urinate, confusion. Rocha was placed in the emergency room with immediate return of 2 L of urine into bag. Acute kidney injury. The patient has normal baseline serum creatinine. Serum creatinine was 0.73 mg/dL on 01/16/2023. NELSON is secondary to obstructive nephropathy. Serum creatinine was 8.75 mg/dL on presentation 12/03/2023. Renal function has improved with relief of obstruction with Rocha catheter placement. Serum creatinine is down to 1.25 mg/dL yesterday on 12/07/2023 and is stable today at 1.28 mg/dL on 12/08/2023. The patient has postobstructive diuresis with urine output of 3.6 L on 12/06/2023. Urine output has decreased to 2.6 L on 12/07/2023. Polyuria is resolving as expected. BP is stable, so there is no need for IV fluid. There is no evidence of hypernatremia from polyuria. He will need to follow-up with urology for voiding trial and/or urodynamic testing prior to removal of Rocha catheter. Will probably need to discharge with Rocha catheter. Hypokalemia. Secondary to polyuria. There is no GI loss. There is no diarrhea. Potassium level has improved and is 3.5 mmol/L today. Continue to replace potassium deficit. Recheck potassium and magnesium levels tomorrow. Hypertension. The patient was on lisinopril prior to admission. HEIDI inhibitor is on hold because of NELSON. BP is acceptable without antihypertensive currently. Will continue to monitor BP. Okay to restart lisinopril if BP is consistently above 130/80.
[2023-12-08] MEDS: MELATONIN 3 MG TABLET PO (21:32)
[2023-12-08] MEDS: Pravastatin 40 MG Tablet PO (21:32)
[2023-12-09] VITALS (13 sets, daily range): BP systolic 82–116; BP diastolic 44–68; PULSE 64–92; RESP 16–18; TEMP 36.6–37.8; O2SAT 93–100; BMI 18.8
[2023-12-09 05:22] LABS: Absolute Lymphocyte Count 1.12 X10^3/uL (0.83-4.51); Absolute Neutrophil Count 6.2 X10^3/uL (2.0-7.7); Basophil# 0.08 X10^3/uL; Basophil% 0.9 % (0-1); Eosinophil# 0.68 X10^3/uL; Eosinophils% 7.5 % (0-5); Hematocrit 22.3 % (40-54); Lymphocyte # 1.12 X10^3/ul (0.83-4.51); Lymphocyte % 12.4 % (19-41); Mean Corp Hgb Conc 31.4 g/dL (32-36); Mean Corpuscular Hgb 32.9 pg (27.0-32.0); Mean Corpuscular Volume 104.7 fL (80-94); Mean Platelet Vol. 9.4 fl (6.2-12.0); Monocyte# 0.84 X10^3/uL; Monocyte% 9.3 % (0-10); NRBC Flagged by Analyzer 0 % (0-5); Neutrophil # 6.19 X10^3/uL (2.7-7.7); Neutrophil % 68.4 % (47-70); Platelet Count 288 K/mm3 (150-450); RBC Distribution Width CV 14.3 % (11.6-14.6); RBC Distribution Width SD 54.7 fl (35.1-43.9); Red Blood Count 2.13 M/mm3 (4.6-6.2); White Blood Count 9.1 K/mm3 (4.4-11.0)
[2023-12-09] MEDS: HYDROcodone Bitartrate/Apap 5/325 Tablet PO ×3 (05:27→20:24)
[2023-12-09] MEDS: Ipratropium/Albuterol Sulfate 3 ML AMPUL.NEB INHALATION ×2 (06:54→18:56)
[2023-12-09 08:04] LABS: Anion Gap 2 (5-15); BUN 18 mg/dL (7-18); BUN/Creat Ratio 15.4 RATIO (10-20); Calcium,Total 8.2 mg/dL (8.5-10.1); Chloride 111 mmol/L (98-107); Creatinine, Serum 1.17 mg/dL (0.70-1.30); EST Glomerular Filtration Rate 65 mL/min (>60); Est Glom Filt Rate - Afr Amer 79 mL/min (>60); Estimated Creatinine Clearance 50.27 ml/min; Glucose 102 mg/dL (74-106); Potassium 3.9 mmol/L (3.5-5.1); Sodium Level 140 mmol/L (136-145)
[2023-12-09 09:13] LABS: Hematocrit 22.1 % (40-54)
[2023-12-09] MEDS: Pantoprazole Sodium 40 MG in 0.9% Normal Saline (100mL MB+) 100 ML 330 MG IV ×2 (09:46→20:24)
[2023-12-09] MEDS: 0.9% Saline Lock 10 ML Syringe IV ×2 (09:47→20:24)
--- NOTE | 2023-12-09 10:03 | PN_ITS ---
Subjective Subjective Patient seen and examined. He had no active complaints. He denies any abdominal pain or dark stools. Review of systems is otherwise negative. Objective Data Objective Data Vital Signs: Vital Signs Temp Pulse Resp BP Pulse Ox O2 Del Method O2 Flow Rate 100.0 F H 76 16 116/67 97 Room Air 2 12/09/23 09:33 12/09/23 09:33 12/09/23 09:33 12/09/23 09:33 12/09/23 09:33 12/09/23 09:33 12/09/23 06:54 Oxygen Flow Rate (L/min) 2 Oxygen Delivery Method Room Air Weight: 139 lb 5.314 oz Body Mass Index (BMI) 18.8 Intake & Output: Intake and Output for Last 24 Hours 12/07/23 12/08/23 12/09/23 23:59 23:59 23:59 Intake Total 1 / 2431 1970 / 1969 900 / 900 Output Total 2600 / 3200 1750 / 1750 1600 / 1600 Balance -569 / -769 220 / 220 -700 / -700 Lab / Micro Data 12/09/23 09:00 12/09/23 04:40 Labs: Laboratory Results - last 24 hr 12/09/23 04:40: WBC 9.1, RBC 2.13 L, Hgb 7.0 L, Hct 22.3 L, MCV 104.7 H, MCH 32.9 H, MCHC 31.4 L, RDW Std Deviation 54.7 H, RDW Coeff of Issa 14.3, Plt Count 288, MPV 9.4, Immature Gran % (Auto) 1.500 H, Neut % (Auto) 68.4, Lymph % (Auto) 12.4 L, [place] % (Auto) 9.3, Eos % (Auto) 7.5 H, Baso % (Auto) 0.9, Absolute Neuts (auto) 6.2, Absolute Lymphs (auto) 1.12, Nucleated RBC % 0, Sodium 140, Potassium 3.9, Chloride 111 H, Carbon Dioxide 27.0, Anion Gap 2 L, BUN 18, Creatinine 1.17, Estim Creat Clear Calc 50.27, Est GFR (MDRD) Af Amer 79, Est GFR (MDRD) Non-Af 65, BUN/Creatinine Ratio 15.4, Glucose 102, Calcium 8.2 L 12/09/23 09:00: Hgb 7.0 L, Hct 22.1 L Micro: Microbiology 12/07/23 13:40 Sputum, Expectorated/Coughed Gram Stain - Final 12/07/23 16:15 Stool Stool Occult Blood (SINDY) - Final Occult Blood Positive 12/04/23 07:00 Sputum, Expectorated/Coughed Gram Stain - Final 12/04/23 07:00 Sputum, Expectorated/Coughed Respiratory Culture - Final Escherichia coli Staphylococcus aureus 12/03/23 17:06 Urine Catheter - Catheter Urine Culture - Final Culture exhibits no growth. 12/03/23 22:30 Mucosa - Nasopharyngeal Respiratory Panel (PCR) - Final 12/03/23 17:05 Urine Catheter - Catheter Legionella Antigen - Final 12/03/23 17:05 Urine Catheter - Catheter Streptococcus pneumoniae Antigen (M - Final Physical Exam Const alert, oriented x3 and no apparent distress Constitutional Narrative: frail, elderly General Appearance: cooperative HEENT normocephalic, head/scalp atraumatic and moist oral mucous membranes Eyes PERRL and EOMs intact bilaterally Neck no lymphadenopathy, supple and no JVD Lymph Lymphatic: no lymphadenopathy noted and no lymphedema noted Resp Resp Narrative: mildly diminished breath sounds bibasally, no wheezes or crackles.On room air. Cardio regular rate, regular rhythm, S1 normal heart sound, S2 normal heart sound and no murmurs GI normal to inspection, nondistended, normoactive bowel sounds, soft to palpation, non-tender and non-distended Extremity normal capillary refill, no clubbing, cyanosis or edema and no calf tenderness General Extremity: no tenderness to palpation of joints or extremities Skin General Skin Exam: no breakdown Neuro CN's II-XII intact bilaterally, no focal motor deficits and no sensory deficits noted Motor Exam: general weakness Psych thought process normal and cooperative Appearance: appropriate Assessment & Plan Assessment/Plan (1) NELSON (acute kidney injury): PLAN: #NELSON with hyperkalemia * Resolved. Creatinine down to normal. on flomax. * Will need follow-up with urology on outpatient basis and will need to be discharged with Rocha catheter in situ. NELSON was likely due to urine outlet ob struction. * Nephrology on board. * #COPD in the setting of chronic respiratory failure * On 2 L of oxygen. * Breathing treatments bronchodilators. Titrate oxygen to maintain saturation above 90%. Not in exacerbation. #Left lower lobe consolidation due to presumptive pneumonia * Chest x-ray showed left lower lobe and lingula consolidations. Patient denies any cough and is on his baseline 2 L of oxygen. Started on IV ceftriaxone and azithromycin empirically. * Urine for strep and Legionella negative. * Sputum cultures growing Staph aureus E. coli * on bactrim. * * #Anemia * hb today is down to 7. * Hb was as low as 6.4 during this admission though on repeat it was 7.7. * stool for occult blood is positive * on IV pantoprazole 40mg bid * GI consulted. Keep NPO for now * repeat H&H shows Hb is still 7. * will therefore transfuse with 2 units of PRBCs. * #Hyperkalemia: Likely due to NELSON. Resolved. #Hypokalemia:resolved. #Hypertension: Lisinopril held due to NELSON and hyperkalemia. On atenolol. IV hydralazine as needed. #Hyperlipidemia: On statin #GERD: stool for occult blood positive. IV PPI DVT prophylaxis: SCDs. DC heparin due to anemia and positive occult blood. Disposition: Awaiting placement. Case management on board. Charges/Coding Visit Charges Inpatient E&M: 87162 [facility] Hosp L3
[2023-12-09] MEDS: Lactated Ringers 1,000 ML 15 ML IV (12:32)
--- NOTE | 2023-12-09 13:29 | OP.EGD_ITS ---
Patient Name: Eligio Mccabe Procedure Date: 12/09/2023 12:58 PM Date of : 1950 Age: 73 Procedure: Upper GI endoscopy Indications: Iron deficiency anemia Providers: Ranjan Muhammad DO Medicines: Monitored Anesthesia Care Patient Profile: This is a 73 year old male. Refer to note in patient chart for documentation of history and physical. Patient has symptoms of chronic epigastric abdominal pain. Complications: No immediate complications. Procedure: Pre-Anesthesia Assessment: - Prior to the procedure, a History and Physical was performed, and patient medications and allergies were reviewed. The patient is competent. The risks and benefits of the procedure and the sedation options and risks were discussed with the patient. All questions were answered and informed consent was obtained. Patient identification and proposed procedure were verified by the physician in the pre-procedure area. Mental Status Examination: alert and oriented. Airway Examination: normal oropharyngeal airway and neck mobility. Respiratory Examination: clear to auscultation. CV Examination: normal. Prophylactic Antibiotics: The patient does not require prophylactic antibiotics. Prior Anticoagulants: The patient has taken no anticoagulant or antiplatelet agents. ASA Grade Assessment: III - A patient with severe systemic disease. After reviewing the risks and benefits, the patient was deemed in satisfactory condition to undergo the procedure. The anesthesia plan was to use monitored anesthesia care (MAC). Immediately prior to administration of medications, the patient was re-assessed for adequacy to receive sedatives. The heart rate, respiratory rate, oxygen saturations, blood pressure, adequacy of pulmonary ventilation, and response to care were monitored throughout the procedure. The physical status of the patient was re-assessed after the procedure. After obtaining informed consent, the endoscope was passed under direct vision. Throughout the procedure, the patient's blood pressure, pulse, and oxygen saturations were monitored continuously. The Endoscope was introduced through the mouth, and advanced to the second part of duodenum. The upper GI endoscopy was accomplished without difficulty. The patient tolerated the procedure well. Scope In: 1:06:33 PM Scope Out: 1:12:49 PM Total Procedure Duration Time 0 hours 6 minutes 16 seconds Findings: There were esophageal mucosal changes consistent with short-segment Car's esophagus present in the lower third of the esophagus. The maximum longitudinal extent of these mucosal changes was 3 cm in length. Mucosa was biopsied with a cold forceps for histology at intervals of 1 cm in the lower third of the esophagus. One specimen bottle was sent to pathology. Verification of patient identification for the specimen was done by the physician. A medium-sized hiatal hernia was present. One oozing cratered gastric ulcer with a visible vessel was found in the gastric antrum. The lesion was 7 mm in largest dimension. Area was successfully injected with 5 mL of a 0.1 mg/mL solution of epinephrine for drug delivery. Coagulation for hemostasis using heater probe was successful. A deformity was found at the pylorus. Patchy moderate inflammation characterized by congestion (edema), erosions, erythema and friability was found in the duodenal bulb. Biopsies were taken with a cold forceps for histology. Verification of patient identification for the specimen was done. Estimated blood loss was minimal. Impression: - Esophageal mucosal changes consistent with short-segment Car's esophagus. Biopsied. - Medium-sized hiatal hernia. - Oozing gastric ulcer with a visible vessel. Injected. Treated with a heater probe. - Acquired deformity in the pylorus. - Duodenitis. Biopsied. Recommendation: - [facility] patient to [facility] care. - Resume previous diet. - Continue present medications. - Await pathology results. Procedure Code(s): --- Professional --- 10542, 59, Esophagogastroduodenoscopy, flexible, transoral; with control of bleeding, any method 96994, Esophagogastroduodenoscopy, flexible, transoral; with biopsy, single or multiple 90418, 59,51, Esophagogastroduodenoscopy, flexible, transoral; with directed submucosal injection(s), any substance CPT copyright 2021 [employer]. All rights reserved. The codes documented in this report are preliminary and upon community relations assistant review may be revised to meet current compliance requirements. Ranjan Muhammad DO 12/09/2023 1:29:23 PM This report has been signed electronically. Number of Addenda: 0 Note Initiated On: 12/09/2023 12:58 PM
--- NOTE | 2023-12-09 13:30 | OP.CCLET_ITS ---
12/09/2023 Miguel Stewart Re : Upper GI endoscopy procedure for Eligio Mccabe Dear Dr. Stewart This procedure was performed on Saturday, December 09, 2023. My impressions and recommendations are as follows: Impressions : - Esophageal mucosal changes consistent with short-segment Car's esophagus. Biopsied. - Medium-sized hiatal hernia. - Oozing gastric ulcer with a visible vessel. Injected. Treated with a heater probe. - Acquired deformity in the pylorus. - Duodenitis. Biopsied. Recommendations : - Return patient to [facility] care. - Resume previous diet. - Continue present medications. - Await pathology results. My findings are described in the full procedure note, which is enclosed. If I can be of further assistance, please feel free to contact me at . Sincerely, Ranjan Muhammad, 12/09/2023 1:29:23 PM This report has been signed electronically.
[2023-12-09 14:17] LABS: Erythrocyte Sedimentation Rate 34 mm/hr (0-20)
--- NOTE | 2023-12-09 14:20 | EGD_PTH ---
PATHOLOGY RESULTS PATIENT: PEDRO ALBRECHT LOC: MS3 U#:[id number] AGE/SX: 73/M ROOM: WI323 RE12/03/[address]: Dr. Trinidad Alarcon MD : 1950 BED: 1 DIS: 12/11/2023 SPEC #: [id number] RECD: 12/10/23 08:17 STATUS: MARCELINO GAY #: [id number] NYASIA: 12/09/23 14:[address]: Ranjan Muhammad DEPT: SURGICAL PATHOLOGY RECD BY: Lea Washington ENTERED: 12/10/23 08:18 SP TYPE: EGD BIOPSY OTHR DR: MD Dr. Miguel Gentile DO Dr. Jayaprakas Dasari, MD Dr. Nana Yaa Koram, MD Tissues: Gastric mucous membrane Duodenum, NOS Esophageal mucous membrane Procedures: Special Stain Group II Surgery Specimen Level IV Alcian Blue/PAS (control) Comments: @ Ordering doctor for CURTIS edited from to @ by RGOOD at 12/10/23 0852 @ Submitting doctor edited from to @ by RGOOD at 12/10/23 0852 HEADER OPERATION: EGD with biopsy PRE-OP DIAGNOSIS: Anemia TISSUE SUBMITTED: A - Antral ulcer biopsy, B - Duodenal biopsy, C - Distal esophagus biopsy MICROSCOPIC DIAGNOSIS A. Antral ulcer, biopsy: Fragments of gastric mucosa with focal ulceration and acute and chronic inflammation and granulation tissue reaction. Focal intestinal metaplasia (goblet cell metaplasia). See comment. B. Duodenal biopsy: Fragments of duodenal mucosa, no pathologic diagnosis. C. Distal esophagus, biopsy: Fragments of gastroesophageal mucosa with focal intestinal metaplasia (goblet cell metaplasia), consistent with Acr's esophagus. Acute and chronic inflammation. Negative for dysplasia. See comment. SJ:rg 12/11/2023 COMMENT A. The results of immunohistochemistry for Helicobacter pylori will be reported separately ([id number]). Alcian blue/PAS stain with matched control is used in the evaluation of the specimen. C. The specimen predominantly consists of gastric mucosa. Immunohistochemistry ([id number]) for P53 and Ki-67 will be performed and results will be reported separately. Alcian blue/PAS stain with matched control is used in the evaluation of the specimen. MICROSCOPIC DESCRIPTION Slides are reviewed. GROSS DESCRIPTION A - Received in fixative is one container labeled with the patient's name and designated antral ulcer biopsy. The specimen consists of two irregular fragments of light james soft tissue that in aggregate measure 0.6 x 0.4 x 0.2 cm. The specimen is totally submitted in one cassette. B - Received in fixative is one container labeled with the patient's name and designated duodenal biopsy. The specimen consists of multiple irregular fragments of light james soft tissue that in aggregate measure 1.0 x 0.3 x 0.1 cm. The specimen is totally submitted in one cassette. C - Received in fixative is one container labeled with the patient's name and designated distal esophagus biopsy. The specimen consists of two irregular fragments of light james soft tissue that in aggregate measure 0.6 x 0.3 x 0.1 cm. The specimen is totally submitted in one cassette. / SJ:haily 12/10/2023 TC:2 CPT: 22181 x3, 59283 x2
--- NOTE | 2023-12-09 14:20 | IMM_PTH ---
PATHOLOGY RESULTS PATIENT: PEDRO ALBRECHT LOC: MS3 U#:[id number] AGE/SX: 73/M ROOM: MI323 RE12/03/[address]: Dr. Trinidad Alarcon MD : 1950 BED: 1 DIS: 12/11/2023 SPEC #: [id number] RECD: 12/10/23 08:51 STATUS: MARCELINO REQ #: [id number] NYASIA: 12/09/23 14:[address]: Ranjan Muhammad DEPT: IMMUNOHISTOCHEMISTRY RECD BY: Divya Rojas ENTERED: 12/10/23 08:52 SP TYPE: IMMUNO OTHR DR: MD Dr. Miguel Gentile DO Dr. Jayaprakas Dasari, MD Dr. Nana Yaa Koram, MD Tissues: Stomach, NOS Esophagus, NOS Procedures: H Pylori (initial) P53 (initial) KI-67 (add) PHYSICIAN & INSTITUTION [address] [address] SPECIMEN INFORMATION: Tissue Source: A - Antral ulcer, C - Distal esophagus Clinical Info: [place] Specimen Number: [id number] A & C CPT code: 38227 x2, 29912 METHODOLOGY: Deparaffinized sections of prefer/formalin-fixed tissue or PAP/DQ stained slides are incubated with monoclonal/polyclonal antibodies/oligonucleotide probes. Localization is made via biotin free immunoperoxidase method. Appropriate controls are performed and reacted as expected. Results on target cell population are indicated in the following table: RESULTS: ANTIBODY / CLONE RESULT Block A H Pylori (polyclonal) negative Block C P53 (DO-7) negative (null pattern) Ki-67 (30-9) positive, low These tests were developed and their performance characteristics determined by [facility]. They may not have been cleared or approved by the U.S. Food and Drug Administration. The FDA has determined that such clearance or approval is not necessary. The above immunohistochemical/dualISH markers are ordered and reviewed by the Pathologist. INTERPRETATION: A. Antral ulcer, biopsy: Negative for H. Pylori organisms. C. Distal esophagus, biopsy: Negative for dysplasia. SJ:haily 12/12/2023
[2023-12-09] MEDS: Smz/Tmp Ds Tablet 0.5 TABLET PO ×2 (15:42→20:25)
[2023-12-09] MEDS: Fluticasone 0.05% 1 SPRAY NASAL.SRY 2 SPRAY NASAL (15:44)
[2023-12-09] MEDS: Docusate Sodium 100 MG Capsule PO (15:44)
[2023-12-09] MEDS: Atenolol 50 MG Tablet PO (15:44)
[2023-12-09] MEDS: Tamsulosin HCl 0.4 MG Capsule 0.400000000000000022 MG PO (17:33)
[2023-12-09] MEDS: Pravastatin 40 MG Tablet PO (20:24)
[2023-12-10] VITALS (8 sets, daily range): BP systolic 100–139; BP diastolic 55–85; PULSE 64–87; RESP 16–18; TEMP 36.4–37.2; O2SAT 95–100; BMI 18.8
[2023-12-10] MEDS: HYDROcodone Bitartrate/Apap 5/325 Tablet PO ×3 (05:23→21:37)
[2023-12-10 06:39] LABS: Absolute Lymphocyte Count 1.17 X10^3/uL (0.83-4.51); Absolute Neutrophil Count 7.3 X10^3/uL (2.0-7.7); Basophil# 0.11 X10^3/uL; Eosinophil# 0.99 X10^3/uL; Eosinophils% 9.3 % (0-5); Hematocrit 28.2 % (40-54); Lymphocyte # 1.17 X10^3/ul (0.83-4.51); Mean Corp Hgb Conc 31.9 g/dL (32-36); Mean Corpuscular Hgb 31.6 pg (27.0-32.0); Mean Corpuscular Volume 98.9 fL (80-94); Mean Platelet Vol. 9.3 fl (6.2-12.0); Monocyte# 0.95 X10^3/uL; Monocyte% 8.9 % (0-10); NRBC Flagged by Analyzer 0 % (0-5); Neutrophil # 7.31 X10^3/uL (2.7-7.7); Neutrophil % 68.6 % (47-70); POSITIVE MORPHOLOGY YES; Platelet Count 313 K/mm3 (150-450); RBC Distribution Width CV 17.8 % (11.6-14.6); RBC Distribution Width SD 65.2 fl (35.1-43.9); Red Blood Count 2.85 M/mm3 (4.6-6.2); White Blood Count 10.7 K/mm3 (4.4-11.0)
[2023-12-10 06:55] LABS: Differential Indicated SCAN CRITERIA MET
--- NOTE | 2023-12-10 09:00 | NM_ITS ---
CLINICAL: 73-year-old male with history of chronic nausea and abdominal bloating. SEMI-SOLID PHASE 99m Tc SULFUR COLLOID GASTRIC EMPTYING STUDY COMPARISON: CT of the abdomen-pelvis report 12/03/2023 FINDINGS: The patient was administered 1.2 mCi of 99m Tc sulfur colloid mixed with oatmeal and consumed per os. Image acquisitions in the anterior-posterior projections were obtained for 60 minutes. There is prompt visualization of the stomach. There is no gastroesophageal reflux identified. The T ? raw data emptying was calculated to be 24.31 minutes, (Normal: 12-56 minutes). NM/Gastric Emptying Study IMPRESSION: 1. NORMAL 99m Tc sulfur colloid semi-solid phase (oatmeal) gastric emptying imaging examination. A. There is normal and preserved semi-solid phase gastric emptying compared to normal controls. (Elham et al, J Nucl Med Tech 38: 186, 2010). Electronically Signed: Severino Gordon DO at 15:45 EST ,
[2023-12-10 09:32] LABS: Differential Comment SCANNED
[2023-12-10 09:33] LABS: Anisocytosis 2+; Macrocytosis 1+; Microcytosis 1+
[2023-12-10] MEDS: Pantoprazole Sodium 40 MG in 0.9% Normal Saline (100mL MB+) 100 ML 330 MG IV ×2 (11:09→21:36)
[2023-12-10] MEDS: Fluticasone 0.05% 1 SPRAY NASAL.SRY 2 SPRAY NASAL (15:08)
[2023-12-10] MEDS: Smz/Tmp Ds Tablet 0.5 TABLET PO ×2 (15:10→21:37)
[2023-12-10] MEDS: Atenolol 50 MG Tablet PO (15:11)
--- NOTE | 2023-12-10 15:11 | PN_ITS ---
Subjective Subjective Patient seen and examined. He had no complaints. Review of systems otherwise negative. He had EGD yesterday which showed a bleeding peptic ulcer which was treated with a heater probe. He is for gastric emptying study today. Objective Data Objective Data Vital Signs: Vital Signs Temp Pulse Resp BP Pulse Ox O2 Del Method O2 Flow Rate 99.0 F 73 16 139/85 H 98 Room Air 2 12/10/23 14:47 12/10/23 14:47 12/10/23 14:47 12/10/23 14:47 12/10/23 14:47 12/10/23 14:47 12/09/23 19:30 Oxygen Flow Rate (L/min) 2 Oxygen Delivery Method Room Air Weight: 139 lb 5.314 oz Body Mass Index (BMI) 18.8 Intake & Output: Intake and Output for Last 24 Hours 12/08/23 12/09/23 12/10/23 23:59 23:59 23:59 Intake Total 1969 / 1969 1268.75 / 1628.75 1060 / 1060 Output Total 1750 / 1750 1600 / 1900 1100 / 1100 Balance 220 / 220 -331.25 / -271.25 -40 / -40 Lab / Micro Data 12/10/23 06:15 12/09/23 04:40 Labs: Laboratory Results - last 24 hr 12/09/23 10:35: Blood Type B POSITIVE, Antibody Screen POSITIVE, Antibody Identification ANTI-K, Antigen Identification K ANTIGEN - NEGATIVE, Crossmatch See Detail 12/10/23 06:15: WBC 10.7, RBC 2.85 L, Hgb 9.0 L, Hct 28.2 L, MCV 98.9 H D, MCH 31.6, MCHC 31.9 L, RDW Std Deviation 65.2 H, RDW Coeff of Issa 17.8 H, Plt Count 313, MPV 9.3, Immature Gran % (Auto) 1.200 H, Neut % (Auto) 68.6, Lymph % (Auto) 11.0 L, [place] % (Auto) 8.9, Eos % (Auto) 9.3 H, Baso % (Auto) 1.0, Absolute Neuts (auto) 7.3, Absolute Lymphs (auto) 1.17, Nucleated RBC % 0, Differential Comment SCANNED, Anisocytosis 2+, Microcytosis 1+, Macrocytosis 1+ Micro: Microbiology 12/07/23 13:40 Sputum, Expectorated/Coughed Gram Stain - Final 12/07/23 13:40 Sputum, Expectorated/Coughed Respiratory Culture - Final Presumptive C albicans 12/07/23 16:15 Stool Stool Occult Blood (SINDY) - Final Occult Blood Positive 12/04/23 07:00 Sputum, Expectorated/Coughed Gram Stain - Final 12/04/23 07:00 Sputum, Expectorated/Coughed Respiratory Culture - Final Escherichia coli Staphylococcus aureus 12/03/23 17:06 Urine Catheter - Catheter Urine Culture - Final Culture exhibits no growth. 12/03/23 22:30 Mucosa - Nasopharyngeal Respiratory Panel (PCR) - Final 12/03/23 17:05 Urine Catheter - Catheter Legionella Antigen - Final 12/03/23 17:05 Urine Catheter - Catheter Streptococcus pneumoniae Antigen (M - Final Physical Exam Const alert, oriented x3 and no apparent distress Constitutional Narrative: frail, elderly General Appearance: cooperative HEENT normocephalic, head/scalp atraumatic and moist oral mucous membranes Eyes PERRL and EOMs intact bilaterally Neck no lymphadenopathy, supple and no JVD Lymph Lymphatic: no lymphadenopathy noted and no lymphedema noted Resp Resp Narrative: mildly diminished breath sounds bibasally, no wheezes or crackles.On room air. Cardio regular rate, regular rhythm, S1 normal heart sound, S2 normal heart sound and no murmurs GI normal to inspection, nondistended, normoactive bowel sounds, soft to palpation, non-tender and non-distended Extremity normal capillary refill, no clubbing, cyanosis or edema and no calf tenderness General Extremity: no tenderness to palpation of joints or extremities Skin General Skin Exam: no breakdown Neuro CN's II-XII intact bilaterally, no focal motor deficits and no sensory deficits noted Motor Exam: strength 5/5 throughout and general weakness Psych thought process normal and cooperative Appearance: appropriate Assessment & Plan Assessment/Plan (1) NELSON (acute kidney injury): PLAN: #NELSON with hyperkalemia * Resolved. Creatinine down to normal. on flomax. * Will need follow-up with urology on outpatient basis and will need to be discharged with Rocha catheter in situ. NELSON was likely due to urine outlet obstruction. * Nephrology on board. * #COPD in the setting of chronic respiratory failure * On 2 L of oxygen. * Breathing treatments bronchodilators. Titrate oxygen to maintain saturation above 90%. Not in exacerbation. #Left lower lobe consolidation due to presumptive pneumonia * Chest x-ray showed left lower lobe and lingula consolidations. Patient denies any cough and is on his baseline 2 L of oxygen. Started on IV ceftriaxone and azithromycin empirically. * Urine for strep and Legionella negative. * Sputum cultures growing Staph aureus E. coli * on bactrim. * * #Anemia * Hb today is 9. Was transfused with drains of packed red blood cells yesterday. * Had EGD yesterday which showed bleeding peptic ulcer. Currently on IV pantoprazole 40 mg twice daily. * GI on board. For gastric nuclear emptying study today. * * #Hyperkalemia: Likely due to NELSON. Resolved. #Hypokalemia:resolved. #Hypertension: Lisinopril held due to NELSON and hyperkalemia. On atenolol. IV hydralazine as needed. BP has remained fairly stable. #Hyperlipidemia: On statin #GERD: stool for occult blood positive. IV PPI DVT prophylaxis: SCDs. DC heparin due to anemia and positive occult blood. Disposition: Awaiting placement. Case management on board. Charges/Coding Visit Charges Inpatient E&M: 64290 Subs Hosp L2
[2023-12-10] MEDS: Docusate Sodium 100 MG Capsule PO (15:12)
--- NOTE | 2023-12-10 15:29 | EX.PCM.PN.GI ---
Subjective Subjective Patient is feeling a little bit better today. He denies any chest pain or shortness of breath. He underwent endoscopy yesterday. He underwent a gastric emptying study but the results are pending. Objective Data Objective Data Vital Signs: Vital Signs Temp Pulse Resp BP Pulse Ox O2 Del Method O2 Flow Rate 99.0 F 73 16 139/85 H 98 Room Air 2 12/10/23 14:47 12/10/23 14:47 12/10/23 14:47 12/10/23 14:47 12/10/23 14:47 12/10/23 14:47 12/09/23 19:30 Oxygen Flow Rate (L/min) 2 Oxygen Delivery Method Room Air Weight: 139 lb 5.314 oz Body Mass Index (BMI) 18.8 Intake & Output: Intake and Output for Last 24 Hours 12/08/23 12/09/23 12/10/23 23:59 23:59 23:59 Intake Total 1969 / 1969 1268.75 / 1628.75 1060 / 1060 Output Total 1750 / 1750 1600 / 1900 1100 / 1100 Balance 220 / 220 -331.25 / -271.25 -40 / -40 Lab / Micro Data 12/10/23 06:15 12/09/23 04:40 Labs: Laboratory Results - last 24 hr 12/09/23 10:35: Blood Type B POSITIVE, Antibody Screen POSITIVE, Antibody Identification ANTI-K, Antigen Identification K ANTIGEN - NEGATIVE, Crossmatch See Detail 12/10/23 06:15: WBC 10.7, RBC 2.85 L, Hgb 9.0 L, Hct 28.2 L, MCV 98.9 H D, MCH 31.6, MCHC 31.9 L, RDW Std Deviation 65.2 H, RDW Coeff of Issa 17.8 H, Plt Count 313, MPV 9.3, Immature Gran % (Auto) 1.200 H, Neut % (Auto) 68.6, Lymph % (Auto) 11.0 L, [place] % (Auto) 8.9, Eos % (Auto) 9.3 H, Baso % (Auto) 1.0, Absolute Neuts (auto) 7.3, Absolute Lymphs (auto) 1.17, Nucleated RBC % 0, Differential Comment SCANNED, Anisocytosis 2+, Microcytosis 1+, Macrocytosis 1+ Micro: Microbiology 12/07/23 13:40 Sputum, Expectorated/Coughed Gram Stain - Final 12/07/23 13:40 Sputum, Expectorated/Coughed Respiratory Culture - Final Presumptive C albicans 12/07/23 16:15 Stool Stool Occult Blood (SINDY) - Final Occult Blood Positive 12/04/23 07:00 Sputum, Expectorated/Coughed Gram Stain - Final 12/04/23 07:00 Sputum, Expectorated/Coughed Respiratory Culture - Final Escherichia coli Staphylococcus aureus 12/03/23 17:06 Urine Catheter - Catheter Urine Culture - Final Culture exhibits no growth. 12/03/23 22:30 Mucosa - Nasopharyngeal Respiratory Panel (PCR) - Final 12/03/23 17:05 Urine Catheter - Catheter Legionella Antigen - Final 12/03/23 17:05 Urine Catheter - Catheter Streptococcus pneumoniae Antigen (M - Final Assessment & Plan Assessment/Plan (1) NELSON (acute kidney injury): PLAN: Plan The patient is a 73 y/o M w/ PMHx: Chronic cognitive impairment of unclear etiology, COPD w/ Chronic Hypoxic Respiratory Failure, Chronic neuropathy, Former tobacco use, GERD w/ Hx GI bleed, HTN, HLD, Chronic anemia who presents to the [facility] ED on 12/03/23 with history of inability to urinate for the last 48 hours although from report possibly dribbling over himself with significant suprapubic discomfort with no recent fever, chills, nausea or emesis but reported confusion and agitation potentially related to urinary retention prompting family to bring him in for evaluation. Acute kidney injury with acute urinary retention with bilateral nonobstructing nephroliths and a possible mild left hydronephrosis causing postobstructive uropathy status post catheter placement. Chronic macrocytic and normocytic anemia: Admission hemoglobin 9.5, MCV 102.7, baseline previous hemoglobin noted 9.9 11/20/2023 however previous to this in 2022 hemoglobin ranged 9-12, his hemoglobin drifted down to 6.4 and after 1 unit is only at 7. He should undergo repeat upper endoscopy and possible capsule endoscopy to look for signs of atrophic gastritis which can cause iron deficiency, B12 deficiency and contribute to anemia chronic disease, celiac disease which can cause iron deficiency, autoimmune gastritis which can cause iron deficiency. He was explained alternatives, risk, benefits including not withstanding bleeding, infection,'s, perforation, need for emergent urgent . He will have an ASA of 3. Recommend to check antiparietal cell antibody, antiintrinsic factor antibody, HOMAR, celiac profile. Patient underwent a subtotal gastrectomy in the past. Gastric resection is reserved for patients with peptic ulcer disease that has failed to respond to medical therapy or those with malignant disease. I do not have access to his op report. I am just going by what I see endoscopically and what his tells me. 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 I am awaiting a gastric emptying study to see if he is dumping which would be consistent with a postgastrectomy syndrome. He had a lot of inflammation along with ulcerations in the stomach and bile induced injury to the proximal duodenum. Charges/Coding Visit Charges Inpatient E&M: 92688 Subs Hosp L3
--- NOTE | 2023-12-10 15:42 | CASEMGMT ---
Social Work SW spoke w/physician, pt will be ready for discharge tomorrow. SW let pt's significant other know, and let [facility] know via [facility]. DEE Pierce
[2023-12-10] MEDS: Tamsulosin HCl 0.4 MG Capsule 0.400000000000000022 MG PO (18:00)
[2023-12-10] MEDS: Ipratropium/Albuterol Sulfate 3 ML AMPUL.NEB INHALATION (19:32)
[2023-12-10] MEDS: 0.9% Saline Lock 10 ML Syringe IV (21:36)
[2023-12-10] MEDS: MELATONIN 3 MG TABLET PO (21:37)
[2023-12-10] MEDS: Pravastatin 40 MG Tablet PO (21:37)
[2023-12-11 02:09] VITALS: BP 115/62; PULSE 77; RESP 16; TEMP 36.5; O2SAT 99
[2023-12-11] MEDS: HYDROcodone Bitartrate/Apap 5/325 Tablet PO ×2 (05:08→14:00)
[2023-12-11 05:59] VITALS: BMI 18.8
[2023-12-11 06:28] LABS: Absolute Lymphocyte Count 1.05 X10^3/uL (0.83-4.51); Basophil# 0.08 X10^3/uL; Basophil% 0.9 % (0-1); Eosinophil# 0.97 X10^3/uL; Eosinophils% 10.7 % (0-5); Hematocrit 27.1 % (40-54); Lymphocyte # 1.05 X10^3/ul (0.83-4.51); Lymphocyte % 11.6 % (19-41); Mean Corp Hgb Conc 33.2 g/dL (32-36); Mean Corpuscular Hgb 33.1 pg (27.0-32.0); Mean Corpuscular Volume 99.6 fL (80-94); Monocyte# 0.88 X10^3/uL; Monocyte% 9.7 % (0-10); NRBC Flagged by Analyzer 0 % (0-5); Neutrophil # 5.95 X10^3/uL (2.7-7.7); Neutrophil % 65.8 % (47-70); Platelet Count 264 K/mm3 (150-450); RBC Distribution Width CV 17.2 % (11.6-14.6); RBC Distribution Width SD 62.9 fl (35.1-43.9); Red Blood Count 2.72 M/mm3 (4.6-6.2); White Blood Count 9.1 K/mm3 (4.4-11.0)
--- NOTE | 2023-12-11 07:15 | PN.GI_ITS ---
Subjective Subjective Patient feels a lot better. He has been eating and gaining weight since being in the hospital. He is not having any abdominal pain at this time. Objective Data Objective Data Vital Signs: Vital Signs Temp Pulse Resp BP Pulse Ox O2 Del Method O2 Flow Rate 98.1 F 68 18 102/64 99 Room Air 2 12/11/23 14:15 12/11/23 14:15 12/11/23 14:15 12/11/23 14:15 12/11/23 14:15 12/11/23 14:15 12/11/23 07:35 Oxygen Flow Rate (L/min) 2 Oxygen Delivery Method Room Air Weight: 139 lb 1.787 oz Body Mass Index (BMI) 18.8 Intake & Output: Intake and Output for Last 24 Hours 12/09/23 12/10/23 12/11/23 23:59 23:59 23:59 Intake Total 1268.75 / 1628.75 1280 / 1280 1250 / 1250 Output Total 1600 / 1900 1250 / 1250 1350 / 1350 Balance -331.25 / -271.25 30 / 30 -100 / -100 Lab / Micro Data 12/11/23 06:10 12/09/23 04:40 Labs: Laboratory Results - last 24 hr 12/10/23 06:15: PARMJIT-1 Antibody <0.2, SS-A/Ro IgG Antibody < 0.2, SS-B/La IgG Antibody < 0.2, Sm (D[place]herty) Antibody <0.2, IMMERSION [employer]ER Antibody 0.4, Scl-70 Scleroderma Ab <0.2, Double Strand DNA Ab 1, Centromere B Antibody <0.2 12/11/23 06:10: WBC 9.1, RBC 2.72 L, Hgb 9.0 L, Hct 27.1 L, MCV 99.6 H, MCH 33.1 H, MCHC 33.2, RDW Std Deviation 62.9 H, RDW Coeff of Issa 17.2 H, Plt Count 264, MPV 9.0, Immature Gran % (Auto) 1.300 H, Neut % (Auto) 65.8, Lymph % (Auto) 11.6 L, [place] % (Auto) 9.7, Eos % (Auto) 10.7 H, Baso % (Auto) 0.9, Absolute Neuts (auto) 6.0, Absolute Lymphs (auto) 1.05, Nucleated RBC % 0 Micro: Microbiology 12/07/23 13:40 Sputum, Expectorated/Coughed Gram Stain - Final 12/07/23 13:40 Sputum, Expectorated/Coughed Respiratory Culture - Final Presumptive C albicans 12/07/23 16:15 Stool Stool Occult Blood (SINDY) - Final Occult Blood Positive 12/04/23 07:00 Sputum, Expectorated/Coughed Gram Stain - Final 12/04/23 07:00 Sputum, Expectorated/Coughed Respiratory Culture - Final Escherichia coli Staphylococcus aureus 12/03/23 17:06 Urine Catheter - Catheter Urine Culture - Final Culture exhibits no growth. 12/03/23 22:30 Mucosa - Nasopharyngeal Respiratory Panel (PCR) - Final 12/03/23 17:05 Urine Catheter - Catheter Legionella Antigen - Final 12/03/23 17:05 Urine Catheter - Catheter Streptococcus pneumoniae Antigen (M - Final Radiography Diagnostic Testing: Radiology Impression Gastric Emptying Nuclear Medicine 12/10/23 09:00 IMPRESSION: 1. NORMAL 99m Tc sulfur colloid semi-solid phase (oatmeal) gastric emptying imaging examination. A. There is normal and preserved semi-solid phase gastric emptying compared to normal controls. (Elham et al, J Nucl Med Tech 38: 186, 2010). Electronically Signed: Severino Gordon DO at 15:45 EST , Physical Exam Const alert, oriented x3 and no apparent distress Constitutional Narrative: frail, elderly General Appearance: cooperative and comfortable HEENT normocephalic, head/scalp atraumatic, hearing grossly normal bilaterally and moist oral mucous membranes Mouth: oral and palatal mucosa normal Eyes PERRL and EOMs intact bilaterally Neck no lymphadenopathy, supple and no JVD Lymph Lymphatic: no lymphadenopathy noted and no lymphedema noted Resp Resp Narrative: mildly diminished breath sounds bibasally, no wheezes or crackles.On room air. Cardio regular rate, regular rhythm, S1 normal heart sound, S2 normal heart sound and n o murmurs GI normal to inspection, nondistended, normoactive bowel sounds, soft to palpation, non-tender and non-distended Extremity normal to inspection, full ROM, normal capillary refill, no clubbing, cyanosis or edema and no calf tenderness General Extremity: no tenderness to palpation of joints or extremities Skin no rashes or lesions noted General Skin Exam: no breakdown Neuro oriented x3, CN's II-XII intact bilaterally, moves all extremities, no focal motor deficits and no sensory deficits noted Sensorium / Orientation: awake and alert Motor Exam: strength 5/5 throughout and general weakness Psych thought process normal and cooperative Appearance: appropriate Assessment & Plan Assessment/Plan (1) NELSON (acute kidney injury): PLAN: Plan The patient is a 73 y/o M w/ PMHx: Chronic cognitive impairment of unclear etiology, COPD w/ Chronic Hypoxic Respiratory Failure, Chronic neuropathy, Former tobacco use, GERD w/ Hx GI bleed, HTN, HLD, Chronic anemia who presents to the [facility] ED on 12/03/23 with history of inability to urinate for the last 48 hours although from report possibly dribbling over himself with significant suprapubic discomfort with no recent fever, chills, nausea or emesis but reported confusion and agitation potentially related to urinary retention prompting family to bring him in for evaluation. Acute kidney injury with acute urinary retention with bilateral nonobstructing nephroliths and a possible mild left hydronephrosis causing postobstructive uropathy status post catheter placement. Chronic macrocytic and normocytic anemia: Admission hemoglobin 9.5, MCV 102.7, baseline previous hemoglobin noted 9.9 11/20/2023 however previous to this in 2022 hemoglobin ranged 9-12, his hemoglobin drifted down to 6.4 and after 1 unit is only at 7. He should undergo repeat upper endoscopy and possible capsule endoscopy to look for signs of atrophic gastritis which can cause iron deficiency, B12 deficiency and contribute to anemia chronic disease, celiac disease which can cause iron deficiency, autoimmune gastritis which can cause iron deficiency. He was explained alternatives, risk, benefits including not withstanding bleeding, infection,'s, perforation, need for emergent urgent . He will have an ASA of 3. Recommend to check antiparietal cell antibody, antiintrinsic factor antibody, HOMAR, celiac profile. Patient underwent a subtotal gastrectomy in the past. Gastric resection is rese rved for patients with peptic ulcer disease that has failed to respond to medical therapy or those with malignant disease. I do not have access to his op report. I am just going by what I see endoscopically and what his tells me. 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 I am awaiting a gastric emptying study to see if he is dumping which would be consistent with a postgastrectomy syndrome. He had a lot of inflammation along with ulcerations in the stomach and bile induced injury to the proximal duodenum. Charges/Coding Visit Charges Inpatient E&M: 96901 Subs Hosp L3
[2023-12-11] MEDS: Ipratropium/Albuterol Sulfate 3 ML AMPUL.NEB INHALATION ×2 (07:33→14:01)
[2023-12-11 07:35] VITALS: PULSE 63; RESP 16; O2SAT 98
[2023-12-11 08:21] VITALS: BP 106/58; PULSE 91; RESP 18; TEMP 36.6; O2SAT 94
[2023-12-11] MEDS: Docusate Sodium 100 MG Capsule PO (08:28)
[2023-12-11] MEDS: Fluticasone 0.05% 1 SPRAY NASAL.SRY 2 SPRAY NASAL (08:28)
[2023-12-11] MEDS: Atenolol 50 MG Tablet PO (08:28)
[2023-12-11] MEDS: Pantoprazole Sodium 40 MG in 0.9% Normal Saline (100mL MB+) 100 ML 330 MG IV (09:24)
--- NOTE | 2023-12-11 11:46 | DCINST_ITS ---
Discharge Instructions Diet Discharge Diet: Low fat / Low cholesterol Activity Discharge Activity: Return to Normal Activity Weight Bearing Status: Weight bearing as tolerated Dressing / Incision Call your doctor if you observe: Fever of 101 or Higher, Shortness of breath, Swelling in the ankles, Chest pain and Increased palpitations (irregular heartbeat) Follow Up Care Test Results: Test results from this visit will be discussed in further detail at your follow- up appointment, if applicable. Discharge Plan Admission Admit Date/Time: 12/03/23 19:30 Primary Reason for Your Visit: NELSON, hyperkalemia,anemia Attending Provider: Trinidad Alarcon Primary Care Provider: Miguel Stewart Consulting Providers: Mariann Clancy; Suzanne Ferrer Discharge Orders/Prescriptions Prescriptions: New tamsulosin 0.4 mg Capsule 0.4 mg PO DAILY@1730 Qty: 30 2RF pantoprazole 40 mg tablet,delayed release (DR/EC) 40 mg PO BID Qty: 60 2RF Continued docusate sodium [Colace] 100 mg capsule 100 mg PO DAILY glucosamine-chondroitin [Osteo Bi-Flex] 250-200 mg tablet 2 tab PO DAILY Rx Instructions: as directed orally; atenolol 50 mg tablet 50 mg PO DAILY Qty: 90 3RF fluticasone propionate 50 mcg/actuation spray,suspension 2 spray intranasal DAILY Qty: 16 3RF carboxymethylcellulose sodium [Refresh Tears] 0.5 % drops 1 drp ophthalmic (eye) 4-6XD PRN (Reason: dry eye(s)) ipratropium-albuterol 0.5 mg-3 mg(2.5 mg base)/3 mL solution for nebulization 3 ml inhalation BID Qty: 180 11RF hydrocodone-acetaminophen 10-325 mg tablet 1 tab PO TID 30 Days Qty: 90 0RF multivitamin Tablet 1 tab PO DAILY Hold Instructions: Home Medication placed on hold at Doctor's office pravastatin 40 mg tablet 40 mg PO QHS Qty: 90 3RF albuterol sulfate 90 mcg/actuation HFA aerosol inhaler See Rx Instructions .ROUTE .COMPLEX Qty: 8.5 2RF Dose Instruction: INHALE TWO PUFFS BY MOUTH EVERY 6 HOURS NEEDED Rx Instructions: INHALE TWO PUFFS BY MOUTH EVERY 6 HOURS NEEDED (DME) rollator walker with seat See Rx Instructions .Route .MEDSUPPLY Qty: 1 0RF Rx Instructions: Patient needs walking assistance due to debilitation. Foot drop, COPD, and syncopal episodes. trazodone 100 mg tablet 100 mg PO QHS Qty: 90 0RF Discontinued lisinopril 10 mg tablet 10 mg PO 1600 Qty: 90 3RF pantoprazole 40 mg tablet,delayed release (DR/EC) 40 mg PO QAM Qty: 90 3RF Referrals / Follow Up: Miguel Stewart DO [Primary Care Provider] - Within 2 Weeks Disposition Disposition (needs filled in before D/C Order can be placed): Nursing Home Facility
--- NOTE | 2023-12-11 11:55 | TREXTCAR_ITS ---
Diet Diet Order/Speech Therapy: 12/09/23 15:41 Diet: Regular - General Is pt able to select menu?: Yes Routine Orders/Code Status Enema Type: Fleetz Enema Frequency: Daily PRN Suppository Type: Dulcolax 10mg Suppository Frequency: Daily PRN O2 Frequency: PRN Keep PO Greater than or Equal to (%): 90 Therapies Weight Bearing: Weight bearing as tolerated Physical Therapy: Eval and Treat Occupational Therapy: Eval and Treat Problem/Diagnosis (1) NELSON (acute kidney injury): Status: Acute Code(s): N17.9 - Acute kidney failure, unspecified Plan: #NELSON with hyperkalemia * Resolved. Creatinine down to normal. on flomax. * Will need follow-up with urology on outpatient basis and will need to be discharged with Rocha catheter in situ. NELSON was likely due to urine outlet obstruction. * Nephrology on board. * #COPD in the setting of chronic respiratory failure * On 2 L of oxygen. * Breathing treatments bronchodilators. Titrate oxygen to maintain saturation above 90%. Not in exacerbation. #Left lower lobe consolidation due to presumptive pneumonia * Chest x-ray showed left lower lobe and lingula consolidations. Patient denies any cough and is on his baseline 2 L of oxygen. Started on IV ceftriaxone and azithromycin empirically. * Urine for strep and Legionella negative. * Sputum cultures growing Staph aureus E. coli * on bactrim. * * #Anemia * Hb today is 9. Was transfused with drains of packed red blood cells yesterday. * Had EGD yesterday which showed bleeding peptic ulcer. Currently on IV pantoprazole 40 mg twice daily. * GI on board. For gastric nuclear emptying study today. * * #Hyperkalemia: Likely due to NELSON. Resolved. #Hypokalemia:resolved. #Hypertension: Lisinopril held due to NELSON and hyperkalemia. On atenolol. IV hydralazine as needed. BP has remained fairly stable. #Hyperlipidemia: On statin #GERD: stool for occult blood positive. IV PPI DVT prophylaxis: SCDs. DC heparin due to anemia and positive occult blood. Disposition: Awaiting placement. Case management on board. Allergies/Procedures Done in Hospital Allergies aspirin Allergy (Severe, Verified 11/20/23 11:17) bleeding Type of Care/Length of Stay Estimated LOS: Convalescent Care Less Than 30 days Type of Care Needed: Skilled Rehab Potential: Fair Prognosis: Fair Additional Orders/Day of Discharge Day of Discharge: 12/11/23 Dietary and Speech Recommendations Dietitian Recommendations/Changes: Continue regular diet as tolerated Discharge Plan Admission Admit Date/Time: 12/03/23 19:30 Primary Reason for Your Visit: NELSON, hyperkalemia,anemia Attending Provider: Trinidad Alarcon Primary Care Provider: Miguel Stewart Consulting Providers: Mariann Clancy; Suzanne Ferrer Discharge Orders/Prescriptions Prescriptions: New tamsulosin 0.4 mg Capsule 0.4 mg PO DAILY@1730 Qty: 30 2RF pantoprazole 40 mg tablet,delayed release (DR/EC) 40 mg PO BID Qty: 60 2RF Continued docusate sodium [Colace] 100 mg capsule 100 mg PO DAILY glucosamine-chondroitin [Osteo Bi-Flex] 250-200 mg tablet 2 tab PO DAILY Rx Instructions: as directed orally; atenolol 50 mg tablet 50 mg PO DAILY Qty: 90 3RF fluticasone propionate 50 mcg/actuation spray,suspension 2 spray intranasal DAILY Qty: 16 3RF carboxymethylcellulose sodium [Refresh Tears] 0.5 % drops 1 drp ophthalmic (eye) 4-6XD PRN (Reason: dry eye(s)) ipratropium-albuterol 0.5 mg-3 mg(2.5 mg base)/3 mL solution for nebulization 3 ml inhalation BID Qty: 180 11RF hydrocodone-acetaminophen 10-325 mg tablet 1 tab PO TID 30 Days Qty: 90 0RF multivitamin Tablet 1 tab PO DAILY Hold Instructions: Home Medication placed on hold at Doctor's office pravastatin 40 mg tablet 40 mg PO QHS Qty: 90 3RF albuterol sulfate 90 mcg/actuation HFA aerosol inhaler See Rx Instructions .ROUTE .COMPLEX Qty: 8.5 2RF Dose Instruction: INHALE TWO PUFFS BY MOUTH EVERY 6 HOURS NEEDED Rx Instructions: INHALE TWO PUFFS BY MOUTH EVERY 6 HOURS NEEDED (DME) rollator walker with seat See Rx Instructions .Route .MEDSUPPLY Qty: 1 0RF Rx Instructions: Patient needs walking assistance due to debilitation. Foot drop, COPD, and syncopal episodes. trazodone 100 mg tablet 100 mg PO QHS Qty: 90 0RF Discontinued lisinopril 10 mg tablet 10 mg PO 1600 Qty: 90 3RF pantoprazole 40 mg tablet,delayed release (DR/EC) 40 mg PO QAM Qty: 90 3RF Referrals / Follow Up: Miguel Stewart DO [Primary Care Provider] - Within 2 Weeks Disposition Disposition (needs filled in before D/C Order can be placed): [facility]
--- NOTE | 2023-12-11 11:58 | PCM.DC.SUM ---
Providers Date of Admission: 12/03/23 Date of Discharge: 12/11/23 Primary Care Physician: Dr. Miguel Stewart, DO Consultations 12/03/23 21:00 Consult: Licensed Clinical Social Worker / Pulmonary Medicine Routine Consulting Provider: Sammy Stewart Reason for Consult: Hyperkalemia, NELSON EMERGENT Consult: No Notified: Yes Date Notified: 12/03/23 Time Notified: 19:37 Method of Notification: Text Comments:: Can be notified of admit in AM. Consult: Nephrology Routine Consulting Provider: Suzanne Ferrer Reason for Consult: NELSON, Hyperkalemia EMERGENT Consult: No Notified: Yes Date Notified: 12/04/23 Time Notified: 08:33 Method of Notification: Answering Service 12/08/23 10:00 Consult: Gastroenterology Routine Consulting Provider: [facility] Reason for Consult: anemia, positive stool occult blood EMERGENT Consult: No Notified: Yes Date Notified: 12/08/23 Time Notified: 10:01 Method of Notification: Text Reason For Visit: NELSON, HYPERKALEMIA Diagnosis Discharge Diagnosis (1) NELSON (acute kidney injury): Status: Acute Code(s): N17.9 - Acute kidney failure, unspecified Plan: #NELSON with hyperkalemia Resolved. Creatinine down to normal. on flomax. Will need follow-up with urology on outpatient basis and will need to be discharged with Rocha catheter in situ. NELSON was likely due to urine outlet obstruction. Nephrology on board. #COPD in the setting of chronic respiratory failure On 2 L of oxygen. Breathing treatments bronchodilators. Titrate oxygen to maintain saturation above 90%. Not in exacerbation. #Left lower lobe consolidation due to presumptive pneumonia Chest x-ray showed left lower lobe and lingula consolidations. Patient denies any cough and is on his baseline 2 L of oxygen. Started on IV ceftriaxone and azithromycin empirically. Urine for strep and Legionella negative. Sputum cultures growing Staph aureus E. coli on bactrim. #Anemia Hb today is 9. Was transfused with drains of packed red blood cells yesterday. Had EGD yesterday which showed bleeding peptic ulcer. Currently on IV pantoprazole 40 mg twice daily. GI on board. For gastric nuclear emptying study today. #Hyperkalemia: Likely due to NELSON. Resolved. #Hypokalemia:resolved. #Hypertension: Lisinopril held due to NELSON and hyperkalemia. On atenolol. IV hydralazine as needed. BP has remained fairly stable. #Hyperlipidemia: On statin #GERD: stool for occult blood positive. IV PPI DVT prophylaxis: SCDs. DC heparin due to anemia and positive occult blood. Disposition: Awaiting placement. Case management on board. Medications at Discharge Home Medications multivitamin 1 tab PO DAILY supplement 07/01/21 glucosamine-chondroitin 250 mg-200 mg tablet (Osteo Bi-Flex) 2 tab PO DAILY 01/12/23 pravastatin 40 mg tablet 40 mg PO QHS #90 tabs 03/13/23 atenolol 50 mg tablet 50 mg PO DAILY #90 tabs 03/26/23 docusate sodium 100 mg capsule (Colace) 100 mg PO DAILY Constipation 08/01/23 fluticasone propionate 50 mcg/actuation nasal spray,suspension 2 spray intranasal DAILY #16 grams 08/20/23 albuterol sulfate 90 mcg/actuation aerosol inhaler See Rx Instructions .Route .COMPLEX #8.5 grams 10/22/23 carboxymethylcellulose sodium 0.5 % eye drops (Refresh Tears) 1 drp ophthalmic (eye) 4-6XD PRN dry eye(s) 10/22/23 ipratropium 0.5 mg-albuterol 3 mg (2.5 mg base)/3 mL nebulization soln 3 ml inhalation BID shortness of breath or wheezing #180 mL 10/22/23 rollator walker with seat #1 ea 11/05/23 trazodone 100 mg tablet 100 mg PO QHS #90 tabs 11/06/23 hydrocodone 10 mg-acetaminophen 325 mg tablet 1 tab PO TID 1 month #90 tabs 11/20/23 pantoprazole 40 mg tablet,delayed release 40 mg PO BID #60 tabs 12/11/23 tamsulosin 0.4 mg capsule 0.4 mg PO DAILY@1730 #30 caps 12/11/23 Hospital Course Operations None Procedures EGD Summary of Care Provided Minutes Spent on Discharge: 55 Hospital Course: Patient is a 73-year-old male with past medical history as outlined was admitted to the ED on 12/03/2023 with a complaint of inability to urinate for 48 hours prior to admission. He had assisted suprapubic discomfort but denied any fever or chills. He had confusion and agitation also and family felt it might be due to the urinary retention so he was brought into the ED. Rocha catheter inserted immediately drained 2 L of urine in the ED. Labs done was significant for potassium was 8.4 which was slightly hemolyzed, bicarb of 19 and anion gap of 10 with creatinine of 8.75 and calcium of 11.6. CBC was largely unremarkable apart from hemoglobin of 9.5. Chest imaging showed lower left lobe airspace disease. CT of the abdomen and pelvis showed bilateral nonobstructing nephroliths with possible mild left hydronephrosis with no definitive radiodensity ureterolith. He was admitted and managed for postobstructive NELSON in the setting of urinary retention. He had Rocha catheter inserted. He was started on Flomax. He was initially admitted to the ICU on account of hyperkalemia. He was given Kayexalate and creatinine gradually trended down. Nephrology was consulted. His hospital course was complicated with acute on chronic anemia requiring blood transfusions. Stool for occult blood was positive and iron panel showed iron deficiency anemia. Gastroenterology was therefore consulted. He had EGD which showed he had a bleeding peptic ulcer. He was placed on p.o. pantoprazole 40 mg twice daily. Patient felt much better and did well with physical therapy. He was skilled as needing SNF. He was therefore discharged long-term facility on 12/11/2023. He is follow-up with his primary care doctor and nephrology within 1 to 2 weeks. Of note, patient was on lisinopril and this was discontinued due to his NELSON and hyperkalemia. Patient seen and examined prior to discharge. He felt well and had no complaints. He had an uneventful night. Review of systems otherwise negative. Labs and vitals reviewed. Home medication reviewed and reconciled. Physical Exam Const alert, oriented x3 and no apparent distress Constitutional Narrative: frail, elderly General Appearance: cooperative and comfortable HEENT normocephalic, head/scalp atraumatic, hearing grossly normal bilaterally and moist oral mucous membranes Mouth: oral and palatal mucosa normal Eyes PERRL and EOMs intact bilaterally Neck no lymphadenopathy, supple and no JVD Lymph Lymphatic: no lymphadenopathy noted and no lymphedema noted Resp Resp Narrative: mildly diminished breath sounds bibasally, no wheezes or crackles.On room air. Cardio regular rate, regular rhythm, S1 normal heart sound, S2 normal heart sound and no murmurs GI normal to inspection, nondistended, normoactive bowel sounds, soft to palpation, non-tender and non-distended Extremity normal to inspection, full ROM, normal capillary refill, no clubbing, cyanosis or edema and no calf tenderness General Extremity: no tenderness to palpation of joints or extremities Skin no rashes or lesions noted General Skin Exam: no breakdown Neuro oriented x3, CN's II-XII intact bilaterally, moves all extremities, no focal motor deficits and no sensory deficits noted Sensorium / Orientation: awake and alert Motor Exam: strength 5/5 throughout and general weakness Psych thought process normal and cooperative Appearance: appropriate Weight / BMI Weight Weight: 139 lb 1.787 oz Body Mass Index (BMI) 18.8 ABG / Lab / Microbiology Data 12/11/23 06:10 12/09/23 04:40 Laboratory: Laboratory Results - last 24 hr 12/11/23 06:10: WBC 9.1, RBC 2.72 L, Hgb 9.0 L, Hct 27.1 L, MCV 99.6 H, MCH 33.1 H, MCHC 33.2, RDW Std Deviation 62.9 H, RDW Coeff of Issa 17.2 H, Plt Count 264, MPV 9.0, Immature Gran % (Auto) 1.300 H, Neut % (Auto) 65.8, Lymph % (Auto) 11.6 L, [place] % (Auto) 9.7, Eos % (Auto) 10.7 H, Baso % (Auto) 0.9, Absolute Neuts (auto) 6.0, Absolute Lymphs (auto) 1.05, Nucleated RBC % 0 Microbiology: Microbiology 12/07/23 13:40 Sputum, Expectorated/Coughed Gram Stain - Final 12/07/23 13:40 Sputum, Expectorated/Coughed Respiratory Culture - Final Presumptive C albicans 12/07/23 16:15 Stool Stool Occult Blood (SINDY) - Final Occult Blood Positive 12/04/23 07:00 Sputum, Expectorated/Coughed Gram Stain - Final 12/04/23 07:00 Sputum, Expectorated/Coughed Respiratory Culture - Final Escherichia coli Staphylococcus aureus 12/03/23 17:06 Urine Catheter - Catheter Urine Culture - Final Culture exhibits no growth. 12/03/23 22:30 Mucosa - Nasopharyngeal Respiratory Panel (PCR) - Final 12/03/23 17:05 Urine Catheter - Catheter Legionella Antigen - Final 12/03/23 17:05 Urine Catheter - Catheter Streptococcus pneumoniae Antigen (M - Final Radiography Diagnostic Testing: Radiology Impression Gastric Emptying Nuclear Medicine 12/10/23 09:00 IMPRESSION: 1. NORMAL 99m Tc sulfur colloid semi-solid phase (oatmeal) gastric emptying imaging examination. A. There is normal and preserved semi-solid phase gastric emptying compared to normal controls. (Elham et al, J Nucl Med Tech 38: 186, 2010). Electronically Signed: Severino Gordon DO at 15:45 EST , D/C Instructions Discharge Diet: Low fat / Low cholesterol Discharge Activity: Return to Normal Activity Weight Bearing Status: Weight bearing as tolerated Call your doctor if you observe: Fever of 101 or Higher, Shortness of breath, Swelling in the ankles, Chest pain and Increased palpitations (irregular heartbeat) Meaningful Use Info Meaningful Use Diagnoses (Choose all that apply): None applicable Discharge Plan Admission Admit Date/Time: 12/03/23 19:30 Primary Reason for Your Visit: NELSON, hyperkalemia,anemia Attending Provider: Trinidad lAarcon Primary Care Provider: Miguel Stewart Consulting Providers: Mariann Clancy; Suzanne Ferrer Discharge Orders/Prescriptions Prescriptions: New tamsulosin 0.4 mg Capsule 0.4 mg PO DAILY@1730 Qty: 30 2RF pantoprazole 40 mg tablet,delayed release (DR/EC) 40 mg PO BID Qty: 60 2RF Continued docusate sodium [Colace] 100 mg capsule 100 mg PO DAILY glucosamine-chondroitin [Osteo Bi-Flex] 250-200 mg tablet 2 tab PO DAILY Rx Instructions: as directed orally; atenolol 50 mg tablet 50 mg PO DAILY Qty: 90 3RF fluticasone propionate 50 mcg/actuation spray,suspension 2 spray intranasal DAILY Qty: 16 3RF carboxymethylcellulose sodium [Refresh Tears] 0.5 % drops 1 drp ophthalmic (eye) 4-6XD PRN (Reason: dry eye(s)) ipratropium-albuterol 0.5 mg-3 mg(2.5 mg base)/3 mL solution for nebulization 3 ml inhalation BID Qty: 180 11RF hydrocodone-acetaminophen 10-325 mg tablet 1 tab PO TID 30 Days Qty: 90 0RF multivitamin Tablet 1 tab PO DAILY Hold Instructions: Home Medication placed on hold at Doctor's office pravastatin 40 mg tablet 40 mg PO QHS Qty: 90 3RF albuterol sulfate 90 mcg/actuation HFA aerosol inhaler See Rx Instructions .ROUTE .COMPLEX Qty: 8.5 2RF Dose Instruction: INHALE TWO PUFFS BY MOUTH EVERY 6 HOURS NEEDED Rx Instructions: INHALE TWO PUFFS BY MOUTH EVERY 6 HOURS NEEDED (DME) rollator walker with seat See Rx Instructions .Route .MEDSUPPLY Qty: 1 0RF Rx Instructions: Patient needs walking assistance due to debilitation. Foot drop, COPD, and syncopal episodes. trazodone 100 mg tablet 100 mg PO QHS Qty: 90 0RF Discontinued lisinopril 10 mg tablet 10 mg PO 1600 Qty: 90 3RF pantoprazole 40 mg tablet,delayed release (DR/EC) 40 mg PO QAM Qty: 90 3RF Referrals / Follow Up: Miguel Stewart DO [Primary Care Provider] - Within 2 Weeks Suzanne Ferrer MD [Med Staff - Consulting] - Within 2 Weeks Perez Perez MD [Med Staff - Active Staff] - Within 2 Weeks Disposition Disposition (needs filled in before D/C Order can be placed): [facility] Charges/Coding Visit Charges Inpatient E&M: 40586 Disch Hosp >30min
--- NOTE | 2023-12-11 12:06 | PHA.DC.MR.R ---
Pharmacy [place] Med Reconciliation Pharmacy Service has performed discharge medication reconciliation for this patient. The patient's discharge medication list was reviewed for discrepancies and discrepancies were resolved. Medications at Discharge Home Medications multivitamin 1 tab PO DAILY supplement 07/01/21 glucosamine-chondroitin 250 mg-200 mg tablet (Osteo Bi-Flex) 2 tab PO DAILY 01/12/23 pravastatin 40 mg tablet 40 mg PO QHS #90 tabs 03/13/23 atenolol 50 mg tablet 50 mg PO DAILY #90 tabs 03/26/23 docusate sodium 100 mg capsule (Colace) 100 mg PO DAILY Constipation 08/01/23 fluticasone propionate 50 mcg/actuation nasal spray,suspension 2 spray intranasal DAILY #16 grams 08/20/23 albuterol sulfate 90 mcg/actuation aerosol inhaler See Rx Instructions .Route .COMPLEX #8.5 grams 10/22/23 carboxymethylcellulose sodium 0.5 % eye drops (Refresh Tears) 1 drp ophthalmic (eye) 4-6XD PRN dry eye(s) 10/22/23 ipratropium 0.5 mg-albuterol 3 mg (2.5 mg base)/3 mL nebulization soln 3 ml inhalation BID shortness of breath or wheezing #180 mL 10/22/23 rollator walker with seat #1 ea 11/05/23 trazodone 100 mg tablet 100 mg PO QHS #90 tabs 11/06/23 hydrocodone 10 mg-acetaminophen 325 mg tablet 1 tab PO TID 1 month #90 tabs 11/20/23 pantoprazole 40 mg tablet,delayed release 40 mg PO BID #60 tabs 12/11/23 tamsulosin 0.4 mg capsule 0.4 mg PO DAILY@1730 #30 caps 12/11/23
[2023-12-11 12:09] LABS: Anti-Centromere B Ab <0.2 AI (0.0-0.9); Anti-Chromatin <0.2 AI (0.0-0.9); Anti-Jo <0.2 AI (0.0-0.9); Anti-Scleroderma-70 AB <0.2 AI (0.0-0.9); Anti-dsDNA Ab 1 IU/mL (0-9); RNP Ab 0.4 AI (0.0-0.9); SJOGREN'S Anti-SS-A test < 0.2 AI (0.0-0.9); SJOGREN'S Anti-SS-B test < 0.2 AI (0.0-0.9); Smith Ab <0.2 AI (0.0-0.9)
--- NOTE | 2023-12-11 12:36 | CASEMGMT ---
Social Work Per physician, pt is ready for discharge today to the [facility]. 7000 exemption form completed in [facility]. DC per diem physical therapist assistant updated and to complete dc. Disposition: [facility], [facility] level of care under convalescent stay JACOB Yee
[2023-12-11 14:15] VITALS: BP 102/64; PULSE 68; RESP 18; TEMP 36.7; O2SAT 99
--- NOTE | 2023-12-11 14:41 | NURSING ---
Report called to Erica at the [facility] [phone]. Pt to be picked up at 16:00.
--- NOTE | 2023-12-11 15:19 | CASEMGMT ---
Discharge Planning Discharge orders, signed med list, and transport time sent to [facility] via [facility]. Physicians will transport patient by cot at 4p. Nursing, SW, patient, and his SI updated. Amanda Martin, Discharge Planning Asst.
[2023-12-12 15:08] LABS: Gastrin, Serum 37 pg/mL (0-115)
[2023-12-13 16:09] LABS: ACCA 47 units (0-90); AMCA 50 units (0-100); Albumin 2.8 g/dL (2.9-4.4); Alpha-1-Globulins 0.3 g/dL (0.0-0.4); Alpha-2-Globulins 0.9 g/dL (0.4-1.0); Anti-Parietal Cell AB, QN 4.6 Units (0.0-20.0); Cytoplasmic Ab (C-ANCA) <1:20 titer (Neg:<1:20); Deamidated Gliadin IgA 7 units (0-19); Deamidated Gliadin IgG 4 units (0-19); Endomysial Antibody IgA Negative (Negative); Gamma Globulin 1.2 g/dL (0.4-1.8); Immunoglobulin A 368 mg/dL (61-437); Immunoglobulin G 1258 mg/dL (603-1613); Immunoglobulin M 36 mg/dL (15-143); PROEL- TOTAL PROTEIN 6.1 g/dL (6.0-8.5); Perinuclear Ab (P-ANCA) <1:20 titer (Neg:<1:20); gASCA 78 units (0-50); t-Transglutaminase IgA <2 U/mL (0-3)
[2024-01-08 14:48] LABS: ALCA 8 units (0-60)
== END 2023-12-11 16:30 | disposition skilled nursing facility (03) | DRG 682 ==
LOC: ED 17:22 → ICU 20:03 → MS3 12-06 19:15
PROVIDERS: Internal Medicine Critical Care Medicine; Internal Medicine Gastroenterology; Internal Medicine Nephrology; Nurse Practitioner Adult Health; Admitting Provider Family Medicine; Emergency Provider Student in an Organized Health Care Education/Training Program; PCP Family Medicine; Visit Provider Student in an Organized Health Care Education/Training Program
PROC: 0DJ08ZZ Inspection of Upper Intestinal Tract, Via Natural or Artificial Opening Endoscopic (ICD-10-PCS; CPT 43235; principal; 2023-12-09 14:15)
DX: N17.8 Other acute kidney failure (principal); J15.5 Pneumonia due to Escherichia coli; J15.211 Pneumonia due to Methicillin susceptible Staphylococcus aureus; K25.4 Chronic or unspecified gastric ulcer with hemorrhage; K29.81 Duodenitis with bleeding; J96.11 Chronic respiratory failure with hypoxia; E87.0 Hyperosmolality and hypernatremia; J44.0 Chronic obstructive pulmonary disease with (acute) lower respiratory infection; D62 Acute posthemorrhagic anemia; N13.8 Other obstructive and reflux uropathy; I10 Essential (primary) hypertension; D53.9 Nutritional anemia, unspecified; K22.70 Barrett's esophagus without dysplasia; K44.9 Diaphragmatic hernia without obstruction or gangrene; K31.89 Other diseases of stomach and duodenum; E87.5 Hyperkalemia; E78.00 Pure hypercholesterolemia, unspecified; K21.9 Gastro-esophageal reflux disease without esophagitis; G62.9 Polyneuropathy, unspecified; E83.52 Hypercalcemia; E87.6 Hypokalemia; R19.5 Other fecal abnormalities; N13.2 Hydronephrosis with renal and ureteral calculous obstruction; F51.04 Psychophysiologic insomnia; G89.29 Other chronic pain; Z90.3 Acquired absence of stomach [part of]; Z99.81 Dependence on supplemental oxygen; Z79.51 Long term (current) use of inhaled steroids; Z79.891 Long term (current) use of opiate analgesic; Z79.899 Other long term (current) drug therapy; Z87.19 Personal history of other diseases of the digestive system; Z87.442 Personal history of urinary calculi; Z87.891 Personal history of nicotine dependence
CPT/HCPCS: 36415; 51702; 74176; 78264; 80048; 80053; 80069; 81001; 82274; 82550; 82570; 82607; 82728; 82746; 82784; 82941; 82962; 83516; 83540; 83550; 83735; 83970; 84100; 84145; 84165; 84300; 85014; 85018; 85025; 85652; 86036; 86140; 86225; 86235; 86255; 86256; 86316; 86334; 86340; 86671; 86850; 86870; 86900; 86901; 86905; 86920; 86922; 87070; 87077; 87086; 87186; 87205; 87449; 87633; 87641; 88305; 88313; 88341; 88342; 93005; 94640; 94668; 94762; 97116; 97162; 97166; 97530; 97535; 97803; 99285; 99406; A9541; J7030; J7120; P9016; A4216; J0612; J2405

== ENCOUNTER → 2023-12-16 | Outpatient (CLI) | payer MEDICARE, MEDICAID, SELFPAY ==
--- NOTE | 2023-12-16 12:25 | ECHOD_ITS ---
Reason For Study: HTN, Murmur Procedure This was a 2D Doppler, Color Flow transthoracic echocardiogram. Exam performed in department. Left Ventricle Normal LV size. Moderate concentric left ventricular hypertrophy. Left ventricular systolic function is normal. The left ventricular ejection fraction is 55 %. Stage 2 diastolic dysfunction. No regional wall motion abnormalities noted. Right Ventricle Normal RV size. Normal systolic function. Atria Normal left atrium. Normal right atrium. Normal atrial septum. Mitral Valve Mild diffuse mitral valve thickening. Mild (1+) eccentric mitral valve insufficiency. Tricuspid Valve Normal tricuspid valve. Moderate (2+) tricuspid valve insufficiency. Pulmonary artery systolic pressure is 48 mmHg. Aortic Valve Trisinus/trileaflet aortic valve. Trivial aortic valve insufficiency. Pulmonic Valve Normal pulmonic valve. Great Vessels Severely dilated aortic root. Dilated at the coronary sinus measuring 5.9 cm. The pulmonary artery is normal size. Inferior vena cava collapse with respiration. Pericardium/Pleural Trivial pericardial effusion. MMode/2D Measurements & Calculations LVIDd: 5.1 cm IVSd: 1.5 cm Ao root diam: 5.9 cm LVIDs: 3.4 cm LVPWd: 1.2 cm RVDd: 3.4 cm FS: 33.2 % LAV(MOD-bp): 64.8 ml LVAd ap4: 38.7 cm2 LVAd ap2: 32.3 cm2 LAV(MOD-bp) Indexed: 36.3 ml/m2 LVLd ap4: 9.2 cm LVLd ap2: 8.3 cm LAV(MOD-sp2): 68.3 ml EDV(MOD-sp4): 133.1 ml EDV(MOD-sp2): 108.3 ml LAV(MOD-sp4): 56.0 ml EDV(sp4-el): 137.9 ml EDV(sp2-el): 106.6 ml LVAs ap4: 23.5 cm2 LVAs ap2: 21.6 cm2 LVLs ap4: 7.7 cm LVLs ap2: 7.5 cm ESV(MOD-sp4): 58.2 ml ESV(MOD-sp2): 53.5 ml ESV(sp4-el): 60.8 ml ESV(sp2-el): 53.2 ml EF(MOD-sp4): 56.3 % EF(MOD-sp2): 50.6 % EF(sp4-el): 55.9 % SV(MOD-sp4): 74.9 ml SV(MOD-sp2): 54.8 ml SV(sp4-el): 77.1 ml LA dimension(2D): 3.6 cm LA A4 area: 21.0 cm2 RA A4 area: 19.3 cm2 TAPSE: 2.2 cm Time Measurements MV dec time: 0.22 sec Doppler Measurements & Calculations MV E max tom: 72.3 cm/sec Lat Peak E' Tom: 10.9 cm/sec Med Peak E' Tom: 7.9 cm/sec MV A max tom: 45.9 cm/sec E/E' lat: 6.6 E/E' med: 9.1 MV E/A: 1.6 MV dec slope: 326.1 cm/sec2 Ao V2 max: 123.9 cm/sec AI max tom: 407.9 cm/sec Ao max P.2 mmHg AI max P.6 mmHg Ao V2 mean: 82.8 cm/sec AI dec slope: 243.4 cm/sec2 Ao mean P.1 mmHg AI P1/2t: 490.9 msec Ao V2 VTI: 27.9 cm AV (velocity ratio): 0.81 LV V1 max: 99.6 cm/sec PA V2 max: 90.6 cm/sec TR max tom: 328.3 cm/sec LV V1 max P.0 mmHg TR max P.1 mmHg LV V1 mean P.1 mmHg LV V1 mean: 69.2 cm/sec LV V1 VTI: 22.6 cm ECHO/Echo Complete Interpretation Summary Normal LV size. Moderate concentric left ventricular hypertrophy. The left ventricular ejection fraction is 55 %. Left ventricular systolic function is normal. Stage 2 diastolic dysfunction. Severely dilated aortic root. Dilated at the coronary sinus measuring 5.9 cm Compared to the previous it appears to be dilated further. Ordering Physician: Thor Trejo Referring Physician: Jesus Alberto Stewart M.D. Performed By: Serena Turner RDCS
--- OUTSIDE RECORDS SUMMARY | 2023-12-16 12:30 | XMS RPT_ITS | CCD ---
Author Name Unknown Address [address] [place] [address] Organization [facility] Care Team Providers Care Courtroom Deputy Name Role Phone SHALINI FERRARI DO Primary Care Physician SHALINI FERRARI DO Primary Care Unavailable DANIELE RIVAS Admitting Unavai jack VASQUES MD, ALLAN Attending Unavailable CAPRICE WILCOX, ALLAN Referring Unavailable Allergies Allergy Classification Reported Allergen(s) Allergy Type Date of Onset Reaction(s) Facility (1 source) Aspirin; Translations: [aspirin] Drug Allergy [facility] Medications Current Medications Medication Drug Class(es) Dates Sig (Normalized) Sig (Original) acetaminophen 325 mg / HYDROcodone bitartrate 5 mg oral tablet (1 source) Opioid Agonist Start: 01-30-2023 End: 02-02-2023 Osage 325- 5 mg oral tablet Dose = [...] 12:48-0400 Body temperature 98.24 [degF] DANIELE SHEARER [facility] 01-30-2023 12:48-0400 Diastolic Blood Pressure Non-Invasive 67 1 DANIELE SHEARER [facility] 01-30-2023 12:48-0400 Heart rate 70 /min DANIELE VORA RAYON CONER-PAPER SPOOLER [facility] 01-30-2023 12:48-0400 Reason For Taking VItal Signs DANIELE VORA RAYON CONER-PAPER SPOOLER [facility] 01-30-2023 12:48-0400 Respiratory rate 18 /min DANIELE CORNEJON RAYON CONER-PAPER SPOOLER [facility] 01-30-2023 12:48-0400 Systolic Blood Pressure Non-Invasive 133 1 DANIELEGUMARO CORNEJON RAYON CONER-PAPER SPOOLER [facility] 01-30-2023 06:40-0400 Body temperature 98.24 [degF] DANIELE JANENEN RAYON CONER-PAPER SPOOLER [facility] 01-30-2023 06:40-0400 Diastolic Blood Pressure Non-Invasive 72 1 DANIELE CORNEJON RAYON CONER-PAPER SPOOLER [facility] 01-30-2023 06:40-0400 Heart rate 71 /min DANIELEGUMARO LARANEN RAYON CONER-PAPER SPOOLER [facility] 01-30-2023 06:40-0400 Reason For Taking VItal Signs DANIELE VORA RAYON CONER-PAPER SPOOLER [facility] 01-30-2023 06:40-0400 Respiratory rate 18 /min DANIELEGUMARO CORNEJON RAYON CONER-PAPER SPOOLER [facility] 01-30-2023 06:40-0400 Systolic Blood Pressure Non-Invasive 145 1 DANIELEGUMARO LARANEN RAYON CONER-PAPER SPOOLER [facility] 01-30-2023 04:20-0400 Body temperature 98.24 [degF] DANIELE JANENEN RAYON CONER-PAPER SPOOLER [facility] 01-30-2023 04:20-0400 Diastolic Blood Pressure Non-Invasive 76 1 DANIELE CORNEJOGiovanna RAYON CONER-PAPER SPOOLER [facility] 01-30-2023 04:20-0400 Heart rate 74 /min DANIELE CORNEJOGiovanna RAYON CONER-PAPER SPOOLER [facility] 01-30-2023 04:20-0400 Reason For Taking VItal Signs DANIELE LARASHILPA RAYON CONER-PAPER SPOOLER [facility] 01-30-2023 04:20-0400 Respiratory rate 18 /min DANIELE LARASHILPA RAYON CONER-PAPER SPOOLER [facility] 01-30-2023 04:20-0400 Systolic Blood Pressure Non-Invasive 129 1 DANIELE CORNEJOGiovanna RAYON CONER-PAPER SPOOLER [facility] 01-30-2023 00:08-0400 Heart rate 70 /min DANIELE CORNEJOGiovanna RAYON CONER-PAPER SPOOLER [facility] 01-29-2023 19:24-0400 Heart rate 66 /min DANIELE CORNEJOGiovanna RAYON CONER-PAPER SPOOLER [facility] 01-29-2023 16:21-0400 Heart rate 60 /min DANIELE CORNEJOGiovanna RAYON CONER-PAPER SPOOLER [facility] 01-29-2023 06:45-0400 Heart rate 65 /min DANIELEGUMARO CORNEJON RAYON CONER-PAPER SPOOLER [facility] 01-28-2023 18:02-0400 Body height 185.4 cm DANIELEGUMARO CORNEJOGiovanna RAYON CONER-PAPER SPOOLER [facility] 01-28-2023 18:02-0400 Body weight 68.1 kg DANIELE VORA RAYON CONER-PAPER SPOOLER [facility] 01-28-2023 18:02-0400 Body weight 19.81 kg/m2 DANIELEGUMARO LARASHILPA RAYON CONER-PAPER SPOOLER [facility] Encounters Encounter Date Encounter Type Care Provider Facility Start: 01-28-2023 End: 01-30-2023 ambulatory SHALINI FERRARI DO Facility:B Start: 01-28-2023 End: 01-30-2023 Observation DANIELE VORA RAYON CONER-PAPER SPOOLER [facility] Procedures Date Procedure Procedure Detail Performing Clinician Empyema (disorder) DANIELE HAYWOOD RAYON CONER-PAPER SPOOLER Immunizations Immunization Date Immunization Notes Care Provider [facility] 10-25-2021 pneumococcal polysaccharide vaccine, 23 valent DANIELE VORA RAYON CONER-PAPER SPOOLER [facility] 10-13-2021 zoster vaccine recombinant DANIELE JANESHILPA RAYON CONER-PAPER SPOOLER [facility] 09-14-2021 SARS-CoV-2 mRNA (tozinameran) vaccine DANIELEGUMARO LARASHILPA RAYON CONER-PAPER SPOOLER [facility] 08-09-2021 zoster vaccine recombinant DANIELE JANESHILPA RAYON CONER-PAPER SPOOLER [facility] 01-13-2021 SARS-CoV-2 mRNA (tozinameran) vaccine DANIELE JANESHILPA RAYON CONER-PAPER SPOOLER [facility] 12-23-2020 SARS-CoV-2 mRNA (tozinameran) vaccine DANIELE JANESHILPA RAYON CONER-PAPER SPOOLER [facility] Payers Date Payer Category Payer Medicaid [id number] 2021 Medicare [id number] 1950 Unknown [id number] Social History Date Type Detail Facility Start: 05-19-2021 Tobacco smoking status Smokes tobacco daily (finding) [facility] Sex Assigned At Male [facility] Functional Status Date Assessment Result Facility 01-30-2023 Functional Status Room check performed [facility] 01-30-2023 Functional Status 20 [facility] 01-29-2023 Functional Status Dinner Percent 75 [facility] 01-29-2023 Functional Status Front wheeled walker [facility] 01-29-2023 Functional Status Lunch Percent 75 [facility] 01-29-2023 Functional Status Supervised [facility] 01-29-2023 Functional Status Multilevel home [facility] 01-28-2023 Functional Status Sensory Deficits None A [facility] 01-28-2023 Functional Status Minimum assistance [facility] Mental Status Date Assessment Result Facility 01-30-2023 Mental Status Orientation Not oriented to situation [facility] 01-30-2023 [facility] 01-30-2023 Mental Status [facility] 01-28-2023 Mental Status Orientation Asse ssment Not oriented to place [facility] Clinical Notes 01-28-2023 to 02-02-2023 Note Date [...] Locations *1: This test was performed at: [address], [facility] , Counts include 234 beds at the [facility] ([place]) 02-02-2023 Note . MICRO - Microbiology PROCEDURE: [...] Locations *1: This test was performed at: [address], [address] [place] [address] ([place]) 01-30-2023 Nurse Discharge summary Discharged to [address] [facility]. Escorted to the exit via w/c per BLAYNE Toussaint. Transported by Significant other, Judy. Left at 1425. [facility] 01-30-2023 Note Discharge Instructions Thank you for allowing [facility] to assist you with your healthcare needs. [...] follow up with PCP after d/c. Where: [facility] [address] [place] [address] [place] [address] [phone] Follow Up with Go to emergency room if symptoms worsen When Within 2-4 days Follow Up with SHALINI FERRARI DO When Within 2-4 days Where: [facility] [place] [address]- [phone] The Following Activity and Diet Have Been [...] When Why Instructions Last Dose Changed acetaminophen-hydrocodone (Osage 325- 5 mg oral tablet) 1 tab(s) [...] in vomit, stools (black or red color) 4970-[address] [employer] [place] [address]. All rights reserved. This information is not intended as a substitute for professional medical care. Always follow your healthcare professional's instructions. Additional Information VACCINATE! IT SAVES LIVES! Members of the community who have not yet received the COVID-19 vaccine and would like to receive it can visit one of [facility] vaccine clinics. There are many vaccine clinic locations within the [facility]. For locations and available times, please visit [email or web address] .[email or web address] It is important to note that some COVID mobile vaccine clinics are held outdoors and may be canceled in rainy or stormy conditions. To learn more about pediatric vaccinations (ages 5-11), we invite you to visit the [facility] webpage. [email or web address]/page [email or web address]-Cnxvs-Tiotyqyuliz-Frequently -Asked-Questions.html To learn more about the COVID-19 vaccine, we invite you to visit the CDC website for a list of frequently asked questions. https://www.cdc.gov/coronavirus/201 9-ncov/vaccines/faq.html [facility] Patient Portal Access Instructions: Stay connected with your healthcare team and access your personal medical information anytime with the [facility] Patient Portal.If you would like a full copy of your medical records, please contact the [facility] Medical Records Department, Saturday through Saturday between 8a.m. and 4:30p.m. Please follow the directions below to access the portal: 1.Access the email account you provided upon registration to the [facility].2.Look for an invitation email from [facility].3.Open the email and access the invitation link: Accept Invitation to [facility]4.Fill in the required cuellar to create your account. Sign into www.[email or web address] with your username and password that you [...] you will allow to register on the [facility] Patient Portal for access to your information. You can also access the [facility] Patient Portal on the [employer]. Simply click on Health Records under Health Data and then click on the [employer] logo. HOW TO SAFELY DISPOSE OF PRESCRIPTION [...] Call your local pharmacy or go to http://bit.ly/4Y0Ow6f to find one close to you.3.Make use of household items: Use cat litter or old coffee grounds to dispose medications if other options are not available. Mix your drugs with these household products, seal them in an airtight container and throw it into the garbage. Call [facility]: [phone] to be sure your drugs can be [...] aware that I should contact my doctor. Patient/Director Corporate Sales Signature: ____ Date/Time: Relationship to Patient: __ Witness Name/Signature: Date/Time: [facility] 01-30-2023 Note . MICRO - Microbiology PROCEDURE: [...] Locations *1: This test was performed at: [facility], [address] [place] [address], [facility] , Counts include 234 beds at the [facility] ([place]) 01-29-2023 Note Date of Service 01/29/2023 Chief Complaint Weakness and falls Subjective 72-year-old male with past medical history significant for arthritis, chronic pain, depression, GERD, gastric ulcers, IBS, kidney stones, neuropathy, tobacco use. Patient presented to [facility] emergency department on 01/28/2023 with increased falls and weakness. Patient was discharged from [facility] on 01/16/2023 for gastroenteritis and COVID-19 [...] medications that increases risk for falls including Osage 10/325, cyclobenzaprine, gabapentin. Check orthostatic vital signs. Decrease Osage. Hold cyclobenzaprine. PCPs note was reviewed from [...] Urinalysis show NGTD. Patient was discharged from [facility] for pneumonia. He completed a course [...] by DANIELE VORA on 01/30/2023 07:26 AM [facility] 01-29-2023 Note ORIGINAL EXAMINATION: TWO XRAY VIEWS [...] Date: 01/29/2023 6:12:42 AM Ordering Provider: DANIELE LARANMGiovanna [facility] 01-29-2023 Note ORIGINAL EXAMINATION: TWO XRAY VIEWS [...] Date: 01/29/2023 6:12:42 AM Ordering [facility] 01-28-2023 Note Date of Service 01/28/2023 Chief Complaint Patient presents for AMS. History of Present Illness 72-year-old male with past medical history significant for arthritis, chronic pain, depression, GERD, gastric ulcers, IBS, kidney stones, neuropathy, tobacco use. Patient presented to [facility] emergency department on 01/28/2023 with increased falls and weakness. Patient was discharged from [facility] on 01/16/2023 for gastroenteritis and COVID-19 [...] medications that increases risk for falls including Osage 10/325, cyclobenzaprine, gabapentin. Additionally he is taking atenolol. Check orthostatic vital signs. Decrease Osage. Hold cyclobenzaprine. Consult PT and OT. Chronic pain as above. Neuropathy consider decreasing gabapentin due to frequent falls. Will monitor. Patient was discharged from [facility] for pneumonia. He completed a course [...] by DANIELE VORA on 01/28/2023 05:30 PM [facility] 01-28-2023 Hospital Discharge instructions Patient Education 01/28/2023 [...] in vomit, stools (black or red color) [phone] [employer]. [address] [place] [address]. All rights reserved. This information is not intended as a substitute for professional medical care. Always follow your healthcare professional's instructions. Follow Up Care 01/28/2023 13:32:30 With:SHALINI FERRARI DO Address: [facility] [address] [address] [phone] When:3-5 days Comments:Please schedule follow up with PCP after d/c. With:Go to emergency room if symptoms worsen Address:Unknown When:2-4 days With:SHALINI FERRARI DO Address: [facility] [address] [address] [phone] When:2-4 days [facility] 01-28-2023 Note ORIGINAL HISTORY: Falls COMPARISON: No [...] Sign Date: 01/28/2023 3:03:49 PM Ordering Provider: [facility] 01-28-2023 Note ORIGINAL HISTORY: Falls COMPARISON: [...] Sign Date: 01/28/2023 3:02:56 PM Ordering Provider: [facility] 01-28-2023 Note ORIGINAL HISTORY: Altered mental status [...] Sign Date: 01/28/2023 2:51:30 PM Ordering Provider: [facility] 01-28-2023 Note ORIGINAL HISTORY: Falls COMPARISON: [...] Sign Date: 01/28/2023 3:03:49 PM Ordering Provider: [facility] 01-28-2023 Note ORIGINAL HISTORY: Falls COMPARISON: [...] by motion; otherwise unremarkable examination. Interpreted by: Ltei Rodas MD Preliminary Report By: Leti Rodas MD Electronically signed By Leti Rodas MD Dictated Date: 01/28/2023 3:02:10 PM Prelim Date: 01/28/2023 3:02:56 PM Sign Date: 01/28/2023 3:02:56 PM Ordering Provider: [facility] 01-28-2023 Note ORIGINAL HISTORY: Falls COMPARISON: [...] Sign Date: 01/28/2023 2:45:20 PM Ordering Provider: [facility] 01-28-2023 Note ORIGINAL HISTORY: Falls COMPARISON: [...] Sign Date: 01/28/2023 2:45:20 PM Ordering Provider: [facility] 01-28-2023 Note ORIGINAL HISTORY: Altered mental status [...] 01/28/2023 2:51:30 PM Ordering Provider: REGINA STEVENSON [facility] 1. Weakness 2. Falls 3. Chronic pain Weakness and falls- Pt has had 9 falls in the past week. He states sometimes he is weak and falls sometimes he gets dizzy. Patient is on multiple medications that increases risk for falls including Osage 10/325, cyclobenzaprine, gabapentin. Additionally he is taking atenolol. Check orthostatic vital signs. Decrease Osage. Hold cyclobenzaprine. Consult PT and OT. Chronic pain as above. Neuropathy consider decreasing gabapentin due to frequent falls. Will monitor. Patient was discharged from [facility] for pneumonia. He completed a course [...] and may include grammatical and/or spelling errors. [facility] Hospital course Narrative No data available for this section [facility] Summary Purpose Family History No Family History Records Found Advance Directives No Advanced Directives Records Found Additional Source Comments Patient Care team informatio n (unrecognized section and content) Care Team Personnel Name: SHALINI FERRARI DO Member Role: Primary Care Physician Address: Address: [facility] [address] [place] [address]- [place] Name: Macarena Agarwal RN Position: AO RN Member Role: ED RN Name: Yarelis Ford Coder Position: HIM: Coders Member Role: HIM: Coders Name: REGINA STEVENSON DO Position: ED Physician Member Role: ED Physician Address: Address: [address] [place] [address]- Care Team Related Persons Name: JUDY TANG [...] BE BASED ON THE PRIMARY CLINICAL RECORDS. [facility] [employer] provides no warranty or guarantee of the accuracy or completeness of information in this document.
[2023-12-16 15:20] LABS: Basophil% 0.6 % (0-1); Eosinophils% 1.9 % (0-5); Hematocrit 25.8 % (40-54); Hemoglobin 8.2 g/dL (13.0-16.5); Mean Corp Hgb Conc 31.8 g/dL (32-36); Mean Corpuscular Volume 100.8 fL (80-94); Mean Platelet Vol. 9.3 fl (6.2-12.0); Monocyte% 3.8 % (0-10); Neutrophil % 88.1 % (47-70); Platelet Count 357 K/mm3 (150-450); RBC Distribution Width CV 16.1 % (11.6-14.6); Red Blood Count 2.56 M/mm3 (4.6-6.2)
[2023-12-16 15:21] LABS: Absolute Lymphocyte Count 0.94 X10^3/uL (0.83-4.51); Absolute Neutrophil Count 16.7 X10^3/uL (2.0-7.7); Basophil# 0.12 X10^3/uL; Eosinophil# 0.36 X10^3/uL; Lymphocyte # 0.94 X10^3/ul (0.83-4.51); Monocyte# 0.72 X10^3/uL; NRBC Flagged by Analyzer 0 % (0-5)
== END | disposition home or self-care (01) ==
PROVIDERS: PCP Family Medicine; Referring Provider Internal Medicine Cardiovascular Disease; Visit Provider Internal Medicine Cardiovascular Disease
DX: R01.1 Cardiac murmur, unspecified (principal); I10 Essential (primary) hypertension; D64.9 Anemia, unspecified
CPT/HCPCS: 36415; 85025; 93306

== ENCOUNTER 2023-12-20 08:17 | Outpatient (CLI) | payer MEDICARE, MEDICAID, SELFPAY ==
[2023-12-20] VITALS (7 sets, daily range): BP systolic 91–121; BP diastolic 46–65; PULSE 64–75; RESP 16–18; TEMP 36–37.1; O2SAT 97–100; BMI 18.3
--- OUTSIDE RECORDS SUMMARY | 2023-12-20 08:24 | XMS RPT_ITS | CCD ---
Author Name Unknown Address [address] [place] [address] Organization [facility] Care Team Providers Care Technical Writing Lead/Mgr Name Role Phone SHALINI FERRARI DO Primary Care Physician SHALINI FERRARI DO Primary Care Unavailable DANIELE RIVAS Admitting Unavai jack VASQUES MD, ALLAN Attending Unavailable CAPRICE WILCOX, ALLAN Referring Unavailable Allergies Allergy Classification Reported Allergen(s) Allergy Type Date of Onset Reaction(s) Facility (1 source) Aspirin; Translations: [aspirin] Drug Allergy [facility] Medications Current Medications Medication Drug Class(es) Dates Sig (Normalized) Sig (Original) acetaminophen 325 mg / HYDROcodone bitartrate 5 mg oral tablet (1 source) Opioid Agonist Start: 01-30-2023 End: 02-02-2023 Mableton 325- 5 mg oral tablet Dose = [...] 12:48-0400 Body temperature 98.24 [degF] DANIELE SHEARER [facility] 01-30-2023 12:48-0400 Diastolic Blood Pressure Non-Invasive 67 [address] [facility] 01-30-2023 12:48-0400 Heart rate 70 /min DANIELE VORA MILLINERY WORKER-ADMINISTRATION ASSISTANT [facility] 01-30-2023 12:48-0400 Reason For Taking VItal Signs DANIELE VORA MILLINERY WORKER-ADMINISTRATION ASSISTANT [facility] 01-30-2023 12:48-0400 Respiratory rate 18 /min DANIELE CORNEJON MILLINERY WORKER-ADMINISTRATION ASSISTANT [facility] 01-30-2023 12:48-0400 Systolic Blood Pressure Non-Invasive 133 1 DANIELEGUMARO CORNEJON MILLINERY WORKER-ADMINISTRATION ASSISTANT [facility] 01-30-2023 06:40-0400 Body temperature 98.24 [degF] DANIELE JANENEN MILLINERY WORKER-ADMINISTRATION ASSISTANT [facility] 01-30-2023 06:40-0400 Diastolic Blood Pressure Non-Invasive 72 1 DANIELE CORNEJON MILLINERY WORKER-ADMINISTRATION ASSISTANT [facility] 01-30-2023 06:40-0400 Heart rate 71 /min DANIELEGUMARO LARANEN MILLINERY WORKER-ADMINISTRATION ASSISTANT [facility] 01-30-2023 06:40-0400 Reason For Taking VItal Signs DANIELE VORA MILLINERY WORKER-ADMINISTRATION ASSISTANT [facility] 01-30-2023 06:40-0400 Respiratory rate 18 /min DANIELEGUMARO CORNEJON MILLINERY WORKER-ADMINISTRATION ASSISTANT [facility] 01-30-2023 06:40-0400 Systolic Blood Pressure Non-Invasive 145 1 DANIELEGUMARO LARANEN MILLINERY WORKER-ADMINISTRATION ASSISTANT [facility] 01-30-2023 04:20-0400 Body temperature 98.24 [degF] DANIELE JANENEN MILLINERY WORKER-ADMINISTRATION ASSISTANT [facility] 01-30-2023 04:20-0400 Diastolic Blood Pressure Non-Invasive 76 1 DANIELE CORNEJOGiovanna MILLINERY WORKER-ADMINISTRATION ASSISTANT [facility] 01-30-2023 04:20-0400 Heart rate 74 /min DANIELE CORNEJOGiovanna MILLINERY WORKER-ADMINISTRATION ASSISTANT [facility] 01-30-2023 04:20-0400 Reason For Taking VItal Signs DANIELE LARASHILPA MILLINERY WORKER-ADMINISTRATION ASSISTANT [facility] 01-30-2023 04:20-0400 Respiratory rate 18 /min DANIELE LARASHILPA MILLINERY WORKER-ADMINISTRATION ASSISTANT [facility] 01-30-2023 04:20-0400 Systolic Blood Pressure Non-Invasive 129 1 DANIELE CORNEJOGiovanna MILLINERY WORKER-ADMINISTRATION ASSISTANT [facility] 01-30-2023 00:08-0400 Heart rate 70 /min DANIELE CORNEJOGiovanna MILLINERY WORKER-ADMINISTRATION ASSISTANT [facility] 01-29-2023 19:24-0400 Heart rate 66 /min DANIELE CORNEJOGiovanna MILLINERY WORKER-ADMINISTRATION ASSISTANT [facility] 01-29-2023 16:21-0400 Heart rate 60 /min DANIELE CORNEJOGiovanna MILLINERY WORKER-ADMINISTRATION ASSISTANT [facility] 01-29-2023 06:45-0400 Heart rate 65 /min DANIELEGUMARO CORNEJON MILLINERY WORKER-ADMINISTRATION ASSISTANT [facility] 01-28-2023 18:02-0400 Body height 185.4 cm DANIELEGUMARO CORNEJOGiovanna MILLINERY WORKER-ADMINISTRATION ASSISTANT [facility] 01-28-2023 18:02-0400 Body weight 68.1 kg DANIELE VORA MILLINERY WORKER-ADMINISTRATION ASSISTANT [facility] 01-28-2023 18:02-0400 Body weight 19.81 kg/m2 DANIELEGUMARO LARASHILPA MILLINERY WORKER-ADMINISTRATION ASSISTANT [facility] Encounters Encounter Date Encounter Type Care Provider Facility Start: 01-28-2023 End: 01-30-2023 ambulatory SHALINI FERRARI DO Facility:B Start: 01-28-2023 End: 01-30-2023 Observation DANIELE VORA MILLINERY WORKER-ADMINISTRATION ASSISTANT [facility] Procedures Date Procedure Procedure Detail Performing Clinician Empyema (disorder) DANIELE HAYWOOD MILLINERY WORKER-ADMINISTRATION ASSISTANT Immunizations Immunization Date Immunization Notes Care Provider [facility] 10-25-2021 pneumococcal polysaccharide vaccine, 23 valent DANIELE VORA MILLINERY WORKER-ADMINISTRATION ASSISTANT [facility] 10-13-2021 zoster vaccine recombinant DANIELE JANESHILPA MILLINERY WORKER-ADMINISTRATION ASSISTANT [facility] 09-14-2021 SARS-CoV-2 mRNA (tozinameran) vaccine DANIELEGUMARO LARASHILPA MILLINERY WORKER-ADMINISTRATION ASSISTANT [facility] 08-09-2021 zoster vaccine recombinant DANIELE JANESHILPA MILLINERY WORKER-ADMINISTRATION ASSISTANT [facility] 01-13-2021 SARS-CoV-2 mRNA (tozinameran) vaccine DANIELE JANESHILPA MILLINERY WORKER-ADMINISTRATION ASSISTANT [facility] 12-23-2020 SARS-CoV-2 mRNA (tozinameran) vaccine DANIELE JANESHILPA MILLINERY WORKER-ADMINISTRATION ASSISTANT [facility] Payers Date Payer Category Payer Medicaid [id number] 2021 Medicare [id number] 1950 Unknown [id number] Social History Date Type Detail Facility Start: 05-19-2021 Tobacco smoking status Smokes tobacco daily (finding) [facility] Sex Assigned At Male [facility] Functional Status Date Assessment Result Facility 01-30-2023 Functional Status Room check performed [facility] 01-30-2023 Functional Status 20 [facility] 01-29-2023 Functional Status Dinner Percent 75 [facility] 01-29-2023 Functional Status Front wheeled walker [facility] 01-29-2023 Functional Status Lunch Percent 75 [facility] 01-29-2023 Functional Status Supervised [facility] 01-29-2023 Functional Status Multilevel home [facility] 01-28-2023 Functional Status Sensory Deficits None A [facility] 01-28-2023 Functional Status Minimum assistance [facility] Mental Status Date Assessment Result Facility 01-30-2023 Mental Status Orientation Not oriented to situation [facility] 01-30-2023 [facility] 01-30-2023 Mental Status [facility] 01-28-2023 Mental Status Orientation Asse ssment Not oriented to place [facility] Clinical Notes 01-28-2023 to 02-02-2023 Note [...] Locations *1: This test was performed at: [address], [facility]- , [facility] ([place]) 02-02-2023 Note . MICRO - Microbiology PROCEDURE: [...] Locations *1: This test was performed at: [address], [address] [place] [address] ([place]) 01-30-2023 Nurse Discharge summary Discharged to [facility]. Escorted to the exit via w/c per BLAYNE Toussaint. Transported by Significant other, Judy. Left at [address]. [facility] 01-30-2023 Note Discharge Instructions Thank you for allowing [facility] to assist you with your healthcare needs. [...] follow up with PCP after d/c. Where: [facility] [address] [place] [address] [place] [address] [phone] Follow Up with Go to emergency room if symptoms worsen When Within 2-4 days Follow Up with SHALINI FERRARI DO When Within 2-4 days Where: [facility] Pending sale to [facility] [place] [address]- [phone] The Following Activity and Diet Have Been [...] When Why Instructions Last Dose Changed acetaminophen-hydrocodone (Mableton 325- 5 mg oral tablet) 1 tab(s) [...] in vomit, stools (black or red color) 4559-3286 [employer]. [address] [place] [address]. All rights reserved. This information is not intended as a substitute for professional medical care. Always follow your healthcare professional's instructions. Additional Information VACCINATE! IT SAVES LIVES! Members of the community who have not yet received the COVID-19 vaccine and would like to receive it can visit one of [facility] vaccine clinics. There are many vaccine clinic locations within the [facility]. For locations and available times, please visit [email or web address] .[email or web address] It is important to note that some COVID mobile vaccine clinics are held outdoors and may be canceled in rainy or stormy conditions. To learn more about pediatric vaccinations (ages 5-11), we invite you to visit the [facility] webpage. [email or web address]-[email or web address] -[email or web address] To learn more about the COVID-19 vaccine, we invite you to visit the CDC website for a list of frequently asked questions. https://www.cdc.gov/coronavirus/201 9-ncov/vaccines/faq.html [facility] Patient Portal Access Instructions: Stay connected with your healthcare team and access your personal medical information anytime with the [facility] Patient Portal.If you would like a full copy of your medical records, please contact the [facility] Medical Records Department, Saturday through Saturday between 8a.m. and 4:30p.m. Please follow the directions below to access the portal: 1.Access the email account you provided upon registration to the [facility].2.Look for an invitation email from [facility].3.Open the email and access the invitation link: Accept Invitation to [facility]4.Fill in the required cuellar to create your account. Sign into [email or web address] with your username and password that you [...] you will allow to register on the [facility] Patient Portal for access to your information. You can also access the [facility] Patient Portal on the [employer] андрей. Simply click on Health Records under Health Data and then click on the [employer] logo. HOW TO SAFELY DISPOSE OF PRESCRIPTION [...] Call your local pharmacy or go to http://bit.ly/9Q9Mv6x to find one close to you.3.Make use of household items: Use cat litter or old coffee grounds to dispose medications if other options are not available. Mix your drugs with these household products, seal them in an airtight container and throw it into the garbage. Call [facility]: [phone] to be sure your drugs can be [...] reviewed and explained to me and I,PEDRO ABLRECHT understand my current condition and have read and understand these discharge instructions. I have received a written copy of the plan/instructions. If I have questions, I am aware that I should contact my doctor. Patient/Vision Mixer Signature: ____ Date/Time: Relationship to Patient: __ Witness Name/Signature: Date/Time: [facility] 01-30-2023 Note . MICRO - Microbiology [...] Locations *1: This test was performed at: [facility], [address] [place] [address], [facility] , [facility] ([place]) 01-29-2023 Note Date of Service 01/29/2023 Chief Complaint Weakness and falls Subjective 72-year-old male with past medical history significant for arthritis, chronic pain, depression, GERD, gastric ulcers, IBS, kidney stones, neuropathy, tobacco use. Patient presented to [facility] emergency department on 01/28/2023 with increased falls and weakness. Patient was discharged from [facility] on 01/16/2023 for gastroenteritis and COVID-19 pneumonia [...] medications that increases risk for falls including Mableton 10/325, cyclobenzaprine, gabapentin. Check orthostatic vital signs. Decrease Mableton. Hold cyclobenzaprine. PCPs note was reviewed from [...] Urinalysis show NGTD. Patient was discharged from [facility] for pneumonia. He completed a course of [...] by DANIELE VORA on 01/30/2023 07:[address] [facility] 01-29-2023 Note ORIGINAL EXAMINATION: TWO XRAY [...] Date: 01/29/2023 6:12:42 AM Ordering Provider: DANIELE LARANJGiovanna [facility] 01-29-2023 Note ORIGINAL EXAMINATION: TWO XRAY [...] Date: 01/29/2023 6:12:42 AM Ordering Provider: [facility] 01-28-2023 Note Date of Service 01/28/2023 Chief Complaint Patient presents for AMS. History of Present Illness 72-year-old male with past medical history significant for arthritis, chronic pain, depression, GERD, gastric ulcers, IBS, kidney stones, neuropathy, tobacco use. Patient presented to [facility] emergency department on 01/28/2023 with increased falls and weakness. Patient was discharged from [facility] on 01/16/2023 for gastroenteritis and COVID-19 pneumonia [...] medications that increases risk for falls including Mableton 10/325, cyclobenzaprine, gabapentin. Additionally he is taking atenolol. Check orthostatic vital signs. Decrease Mableton. Hold cyclobenzaprine. Consult PT and OT. Chronic pain as above. Neuropathy consider decreasing gabapentin due to frequent falls. Will monitor. Patient was discharged from [facility] for pneumonia. He completed a course of [...] by DANIELE VORA on 01/28/2023 05:[address] [facility] 01-28-2023 Hospital Discharge instructions Patient Education 01/28/2023 [...] in vomit, stools (black or red color) [id number] [employer]. [address] [place] [address]. All rights reserved. This information is not intended as a substitute for professional medical care. Always follow your healthcare professional's instructions. Follow Up Care 01/28/2023 13:32:30 With:SHALINI FERRARI DO Address: [facility] [address] [address] [phone] When:3-5 days Comments:Please schedule follow up with PCP after d/c. With:Go to emergency room if symptoms worsen Address:Unknown When:2-4 days With:SHALINI FERRARI DO Address: [facility] [address] [address] [phone] When:2-[address] [facility] 01-28-2023 Note ORIGINAL HISTORY: Falls COMPARISON: [...] Sign Date: 01/28/2023 3:03:49 PM Ordering Provider: [facility] 01-28-2023 Note ORIGINAL HISTORY: Falls COMPARISON: No [...] Sign Date: 01/28/2023 3:02:56 PM Ordering Provider: [facility] 01-28-2023 Note ORIGINAL HISTORY: Altered mental status [...] Sign Date: 01/28/2023 2:51:30 PM Ordering Provider: [facility] 01-28-2023 Note ORIGINAL HISTORY: Falls COMPARISON: No [...] Sign Date: 01/28/2023 3:03:49 PM Ordering Provider: [facility] 01-28-2023 Note ORIGINAL HISTORY: Falls COMPARISON: No [...] Sign Date: 01/28/2023 3:02:56 PM Ordering Provider: [facility] 01-28-2023 Note ORIGINAL HISTORY: Falls COMPARISON: No [...] Sign Date: 01/28/2023 2:45:20 PM Ordering Provider: [facility] 01-28-2023 Note ORIGINAL HISTORY: Falls COMPARISON: No [...] Sign Date: 01/28/2023 2:45:20 PM Ordering Provider: [facility] 01-28-2023 Note ORIGINAL HISTORY: Altered mental status [...] 01/28/2023 2:51:30 PM Ordering Provider: REGINA STEVENSON [facility] 1. Weakness 2. Falls 3. Chronic pain Weakness and falls- Pt has had 9 falls in the past week. He states sometimes he is weak and falls sometimes he gets dizzy. Patient is on multiple medications that increases risk for falls including Mableton 10/325, cyclobenzaprine, gabapentin. Additionally he is taking atenolol. Check orthostatic vital signs. Decrease Mableton. Hold cyclobenzaprine. Consult PT and OT. Chronic pain as above. Neuropathy consider decreasing gabapentin due to frequent falls. Will monitor. Patient was discharged from [facility] for pneumonia. He completed a course of [...] and may include grammatical and/or spelling errors. [facility] Hospital course Narrative No data available for this section [facility] Summary Purpose Family History No Family History Records Found Advance Directives No Advanced Directives Records Found Additional Source Comments Patient Care team informatio n (unrecognized section and content) Care Team Personnel Name: SHALINI FERRARI DO Member Role: Primary Care Physician Address: Address: [facility] [address] [place] [address]- [place] Name: Macarena Agarwal RN Position: AO RN Member Role: ED RN Name: Yarelis Ford Coder Position: HIM: Coders Member Role: HIM: Coders Name: REGINA STEVENSON DO Position: ED Physician Member Role: ED Physician Address: Address: [address] [place] [address]- Care Team Related Persons Name: JUDY TANG [...] BE BASED ON THE PRIMARY CLINICAL RECORDS. [facility] [employer] provides no warranty or guarantee of the accuracy or completeness of information in this document.
[2023-12-20] MEDS: 0.9% Normal Saline (500mL Bag) 500 ML 15 ML IV (08:41)
[2023-12-20] MEDS: 0.9% NaCl Peripheral Flush Adult/Peds IV (08:42)
[2023-12-20] MEDS: Furosemide 40 MG/4 ML Vial IV (11:09)
== END 2023-12-20 08:18 | disposition home or self-care (01) ==
LOC: MEDOUTP 08:18
PROVIDERS: PCP Family Medicine; Referring Provider Nurse Practitioner Family; Visit Provider Nurse Practitioner Family
DX: D64.9 Anemia, unspecified (principal)
CPT/HCPCS: 36415; 36430; 86850; 86870; 86900; 86901; 86902; 86920; 86922; J7040; P9016; A4216; J1940

== ENCOUNTER 2024-01-02 08:27 | Day surgery (SDC) | payer MEDICARE, MEDICAID, SELFPAY ==
--- NOTE | 2024-01-02 | IMM_PTH ---
PATIENT: PEDRO ALBRECHT LOC: [facility] U#:[id number] AGE/SX: 73/M ROOM: RE01/02/[address]: Dr. Ranjan Muhammad DO : 1950 BED: DIS: 01/02/2024 SPEC #: [id number] RECD: 01/03/24 13:40 STATUS: MARCELINO REQ #: [id number] [place]: 01/02/24 00:[address]: Ranjan Muhammad DEPT: IMMUNOHISTOCHEMISTRY RECD BY: Oneal Parrish ENTERED: 01/03/24 13:41 SP TYPE: IMMUNO OTHR DR: Dr. Miguel Stewart DO Tissues: Stomach, NOS Procedures: P53 (initial) KI-67 (add) PHYSICIAN & INSTITUTION [place] [address] SPECIMEN INFORMATION: Tissue Source: Distal esophagus biopsy Clinical Info: GERD with history of GI bleed, Chronic anemia Specimen Number: [id number] CPT code: 55882 METHODOLOGY: Deparaffinized sections of prefer/formalin-fixed tissue or PAP/DQ stained slides are incubated with monoclonal/polyclonal antibodies/oligonucleotide probes. Localization is made via biotin free immunoperoxidase method. Appropriate controls are performed and reacted as expected. Results on target cell population are indicated in the following table: RESULTS: ANTIBODY / CLONE RESULT P53 (DO-7) positive, wild type Ki-67 (30-9) positive, low These tests were developed and their performance characteristics determined by [facility]. They may not have been cleared or approved by the U.S. Food and Drug Administration. The FDA has determined that such clearance or approval is not necessary. The above immunohistochemical/dualISH markers are ordered and reviewed by the Pathologist. INTERPRETATION: Distal esophagus, biopsy; No evidence of dysplasia.
[2024-01-02] MEDS: Lactated Ringers 1,000 ML 15 ML IV (09:05)
[2024-01-02 09:06] VITALS: BP 106/58; PULSE 53; RESP 17; TEMP 36.6; O2SAT 100; BMI 19.5
--- NOTE | 2024-01-02 09:30 | EGD_PTH ---
PATIENT: PEDRO ALBRECHT LOC: [facility] U#:[id number] AGE/SX: 73/M ROOM: RE01/02/[address]: Dr. Ranjan Muhammad DO : 1950 BED: DIS: 01/02/2024 SPEC #: [id number] RECD: 01/02/24 13:27 STATUS: MARCELINO DEIDRA #: [id number] [place]ASIA: 01/02/24 09:[address]: Ranjan Muhammad DEPT: SURGICAL PATHOLOGY RECD BY: Sandi Kaplan ENTERED: 01/02/24 13:45 SP TYPE: EGD BIOPSY SHELLIE DR: Dr. Miguel Stewart DO Tissues: Esophagus, NOS Procedures: Special Stain Group II Surgery Specimen Level IV Alcian Blue/PAS (control) HEADER OPERATION: EGD biopsy PRE-OP DIAGNOSIS: GERD with history of GI bleed, Chronic anemia TISSUE SUBMITTED: Distal esophagus biopsy MICROSCOPIC DIAGNOSIS Distal esophagus, biopsy; Gastroesophageal junctional biopsy with chronic inflammation. 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 No evidence of dysplasia. See comment. LEIGH/ 01/03/2024 COMMENT Immunohistochemistry ([id number]) for P53 and Ki-67 will be performed and results will be reported separately. Alcian blue/PAS stain with matched control supports the above diagnosis. MICROSCOPIC DESCRIPTION Slides are reviewed. GROSS DESCRIPTION Received in fixative is one container labeled with the patient's name and designated Distal esophagus biopsy. The specimen consists of two irregular fragments of light james soft tissue that in aggregate measure 0.6 x 0.3 x 0.1 cm. The specimen is totally submitted in one cassette. JAMA/ 01/02/24 TC:3 CPT: 33023,33263
--- NOTE | 2024-01-02 10:28 | PCM.HP.BLA ---
History and Physical Date of Admission: 01/02/24 73 y/o M with past medical history of chronic anemia and weight loss who presents to the [facility] ED on 12/03/23 with history of inability to urinate for the last 48 hours. He has a past medical history significant for COPD with chronic hypoxic respiratory failure, former tobacco use, hypertension, hyperlipidemia, GERD with history of GI bleed, history of kidney stones. In the ED patient with significant urinary retention with Rocha catheter placed with 2 L urine output immediately noted. Patient in the emergency room cannot give any appropriate information about his recent status and is extremely confused although he is able to carry a conversation and is extremely irritable but clearly cannot give exact data. Workup in the ED included T98.1, heart 60, BP 177/104, respiratory rate 15, 90% on 3 L nasal cannula and for review of most recent records patient previously also been on 2.5 to 3 L nasal cannula CBC with WBC 11.9, hemoglobin 9.5, MCV 102.7, platelet 339 with left shift and lymphopenia, CMP with sodium 134, potassium 8.4 noted to be slightly hemolyzed, carbon oxide 19, anion gap 10, BUN/creatinine 102/8.75, calcium 11.6, hepatic profile not marked appearing, total creatinine kinase 112, urinalysis with specific remedy 1.010, protein 30, ketone negative, occult blood 150, urine nitrite negative, leukocyte esterase 25 with no obvious evidence of UTI, left lower lobe airspace disease, bilateral nonobstructing nephroliths, possible mild left hydronephrosis with no definite radiodense ureterolith. He was diagnosed with a postobstructive uropathy and had a Rocha catheter placed. Also his blood pressure medicines were held. His creatinine has been improving as well as his mental status. After talking to him he says he is lost over 200 pounds. He had an upper and lower scope back in September [address] Thomas for abdominal pain, weight loss and anemia. His ferritin was 137, iron 40 and TIBC is 14. I was called to see him because his hemoglobin drifted down to 7. [facility] Medical History Arthritis Arthritis Back pain Cardiology follow-up encounter Chronic pain Community acquired pneumonia COPD (chronic obstructive pulmonary disease) Depression Difficulty chewing Drop foot gait Forgetfulness Former smoker GERD (gastroesophageal reflux disease) High cholesterol History of echocardiogram History of GI bleed History of hiatal hernia History of stomach ulcers History of stress test Hyperlipidemia Hypertension IBS (irritable bowel syndrome) Neuropathy On home oxygen therapy Overdose Pneumonia Severe protein-calorie malnutrition Shortness of breath on exertion Syncope Wears dentures Wears glasses Home Medications multivitamin 1 tab PO DAILY supplement 07/01/21 [History Last Taken 10/08/23] pantoprazole 40 mg tablet,delayed release 40 mg PO QAM #90 tabs 10/29/22 [Rx Last Taken 10/09/23] glucosamine-chondroitin 250 mg-200 mg tablet (Osteo Bi-Flex) 2 tab PO DAILY 01/12/23 [History Last Taken 10/08/23] pravastatin 40 mg tablet 40 mg PO QHS #90 tabs 03/13/23 [Rx Last Taken 10/08/23] atenolol 50 mg tablet 50 mg PO DAILY #90 tabs 03/26/23 [Rx Last Taken 10/09/23] docusate sodium 100 mg capsule (Colace) 100 mg PO DAILY Constipation 08/01/23 [History Last Taken 10/08/23] fluticasone propionate 50 mcg/actuation nasal spray,suspension 2 spray intranasal DAILY #16 grams 08/20/23 [Rx Last Taken 10/08/23] albuterol sulfate 90 mcg/actuation aerosol inhaler See Rx Instructions .Route .COMPLEX #8.5 grams 10/22/23 [Rx Last Taken Unknown] carboxymethylcellulose sodium 0.5 % eye drops (Refresh Tears) 1 drp ophthalmic (eye) 4-6XD PRN dry eye(s) 10/22/23 [History Last Taken Unknown] ipratropium 0.5 mg-albuterol 3 mg (2.5 mg base)/3 mL nebulization soln 3 ml inhalation BID shortness of breath or wheezing #180 mL 10/22/23 [Rx Last Taken Unknown] rollator walker with seat #1 ea 11/05/23 [Rx Last Taken Unknown] lisinopril 10 mg tablet 10 mg PO 1600 #90 tabs 11/06/23 [Rx Last Taken Unknown] trazodone 100 mg tablet 100 mg PO QHS #90 tabs 11/06/23 [Rx Last Taken Unknown] hydrocodone 10 mg-acetaminophen 325 mg tablet 1 tab PO TID 1 month #90 tabs 11/20/23 [Rx Last Taken Unknown] Allergy/AdvReac Type Severity Reaction Status Date / Time aspirin Allergy Severe bleeding Verified 11/20/23 11:17 Family History Mother Myocardial infarction, Onset Age: 49 DepressionFather Hypertension CVA (cerebral vascular accident), Onset Age: 49Sister Thyroid disorderUncle ulcers Surgical History History of bronchoscopy History of esophagogastroduodenoscopy (EGD) History of thoracic surgery Hx of colonoscopy Social History household members: spouse and significant other Smoking Status: Former smoker quit date: 07/14/21 alcohol intake: never substance use type: does not use what type of physical activity do you participate in: other details: yard work, house work ROS ROS Narrative 10 systems were reviewed with pertinent positives as noted in the HPI above. Physical Exam Const alert, oriented x3 and no apparent distress Constitutional Narrative: frail, elderly General Appearance: cooperative HEENT normocephalic, head/scalp atraumatic and moist oral mucous membranes Eyes PERRL and EOMs intact bilaterally Neck no lymphadenopathy, supple and no JVD Lymph Lymphatic: no lymphadenopathy noted and no lymphedema noted Resp Resp Narrative: mildly diminished breath sounds bibasally, no wheezes or crackles.On room air. Cardio regular rate, regular rhythm, S1 normal heart sound, S2 normal heart sound and no murmurs GI normal to inspection, nondistended, normoactive bowel sounds, soft to palpation, non-tender and non-distended Extremity normal capillary refill, no clubbing, cyanosis or edema and no calf tenderness General Extremity: no tenderness to palpation of joints or extremities Skin General Skin Exam: no breakdown Neuro CN's II-XII intact bilaterally, no focal motor deficits and no sensory deficits noted Motor Exam: general weakness Psych thought process normal and cooperative Appearance: appropriate Lab / Micro Data 12/09/23 09:00 12/09/23 04:40 Labs: Laboratory Results - last 24 hr 12/09/23 04:40: WBC 9.1, RBC 2.13 L, Hgb 7.0 L, Hct 22.3 L, MCV 104.7 H, MCH 32.9 H, MCHC 31.4 L, RDW Std Deviation 54.7 H, RDW Coeff of Issa 14.3, Plt Count 288, MPV 9.4, Immature Gran % (Auto) 1.500 H, Neut % (Auto) 68.4, Lymph % (Auto) 12.4 L, [place] % (Auto) 9.3, Eos % (Auto) 7.5 H, Baso % (Auto) 0.9, Absolute Neuts (auto) 6.2, Absolute Lymphs (auto) 1.12, Nucleated RBC % 0, Sodium 140, Potassium 3.9, Chloride 111 H, Carbon Dioxide 27.0, Anion Gap 2 L, BUN 18, Creatinine 1.17, Estim Creat Clear Calc 50.27, Est GFR (MDRD) Af Amer 79, Est GFR (MDRD) Non-Af 65, BUN/Creatinine Ratio 15.4, Glucose 102, Calcium 8.2 L 12/09/23 09:00: Hgb 7.0 L, Hct 22.1 L 12/09/23 10:35: Blood Type B POSITIVE, Antibody Screen POSITIVE, Antibody Identification ANTI-K, Antigen Identification K ANTIGEN - NEGATIVE, Crossmatch See Detail Micro: Microbiology 12/07/23 13:40 Sputum, Expectorated/Coughed Gram Stain - Final 12/07/23 13:40 Sputum, Expectorated/Coughed Respiratory Culture - Final Presumptive C albicans Assessment & Plan Assessment/Plan (1) NELSON (acute kidney injury): PLAN: Plan The patient is a 73 y/o M w/ PMHx: Chronic cognitive impairment of unclear etiology, COPD w/ Chronic Hypoxic Respiratory Failure, Chronic neuropathy, Former tobacco use, GERD w/ Hx GI bleed, HTN, HLD, Chronic anemia who presents to the [facility] ED on 12/03/23 with history of inability to urinate for the last 48 hours although from report possibly dribbling over himself with significant suprapubic discomfort with no recent fever, chills, nausea or emesis but reported confusion and agitation potentially related to urinary retention prompting family to bring him in for evaluation. Acute kidney injury with acute urinary retention with bilateral nonobstructing nephroliths and a possible mild left hydronephrosis causing postobstructive uropathy status post catheter placement. Chronic macrocytic and normocytic anemia: Admission hemoglobin 9.5, MCV 102.7, baseline previous hemoglobin noted 9.9 11/20/2023 however previous to this in 2022 hemoglobin ranged 9-12, his hemoglobin drifted down to 6.4 and after 1 unit is only at 7. He should undergo repeat upper endoscopy and possible capsule endoscopy to look for signs of atrophic gastritis which can cause iron deficiency, B12 deficiency and contribute to anemia chronic disease, celiac disease which can cause iron deficiency, autoimmune gastritis which can cause iron deficiency. He was explained alternatives, risk, benefits including not withstanding bleeding, infection,'s, perforation, need for emergent urgent . He will have an ASA of 3. Recommend to check antiparietal cell antibody, antiintrinsic factor antibody, HOMAR, celiac profile. I have examined the patient and the H&P has been reviewed. There are no clinical changes since date of exam.
[2024-01-02 10:57] VITALS: BP 106/58; BP 96/59; PULSE 58; RESP 16; TEMP 36.4; O2SAT 99
--- NOTE | 2024-01-02 10:59 | OP.EGD_ITS ---
Patient Name: Eligio Mccabe Procedure Date: 01/02/2024 10:23 AM Date of : 1950 Age: 73 Procedure: Upper GI endoscopy Indications: Peptic ulcer Providers: Ranjan Muhammad DO Medicines: Monitored Anesthesia Care Patient Profile: This is a 73 year old male. Refer to note in patient chart for documentation of history and physical. Patient has symptoms. His most recent EGD for ulcer treatment. Complications: No immediate complications. Procedure: Pre-Anesthesia Assessment: - Prior to the procedure, a History and Physical was performed, and patient medications and allergies were reviewed. The patient is competent. The risks and benefits of the procedure and the sedation options and risks were discussed with the patient. All questions were answered and informed consent was obtained. Patient identification and proposed procedure were verified by the physician in the pre-procedure area. Mental Status Examination: alert and oriented. Airway Examination: normal oropharyngeal airway and neck mobility. Respiratory Examination: clear to auscultation. CV Examination: normal. Prophylactic Antibiotics: The patient does not require prophylactic antibiotics. Prior Anticoagulants: The patient has taken no anticoagulant or antiplatelet agents. ASA Grade Assessment: III - A patient with severe systemic disease. After reviewing the risks and benefits, the patient was deemed in satisfactory condition to undergo the procedure. The anesthesia plan was to use monitored anesthesia care (MAC). Immediately prior to administration of medications, the patient was re-assessed for adequacy to receive sedatives. The heart rate, respiratory rate, oxygen saturations, blood pressure, adequacy of pulmonary ventilation, and response to care were monitored throughout the procedure. The physical status of the patient was re-assessed after the procedure. After obtaining informed consent, the endoscope was passed under direct vision. Throughout the procedure, the patient's blood pressure, pulse, and oxygen saturations were monitored continuously. The Endoscope was introduced through the mouth, and advanced to the second part of duodenum. The upper GI endoscopy was accomplished without difficulty. The patient tolerated the procedure well. Scope In: 10:46:31 AM Scope Out: 10:50:55 AM Total Procedure Duration Time 0 hours 4 minutes 24 seconds Findings: The Z-line was irregular. Biopsies were taken with a cold forceps for histology. Verification of patient identification for the specimen was done. Estimated blood loss was minimal. A 5 mm non-bleeding Betzy-Persaud tear with no stigmata of recent bleeding was found. Diffuse severe inflammation characterized by congestion (edema), erosions and erythema was found in the entire examined stomach. Evidence of a pyloroplasty was found in the pylorus. This was characterized by congestion, edema, erythema and friable mucosa. No gross lesions were noted in the duodenal bulb. Impression: - Z-line irregular. Biopsied. - Betzy-Persaud tear. - Bile gastritis. - A pyloroplasty was found, characterized by friable mucosa, congestion, edema and erythema. - No gross lesions in the duodenal bulb. Recommendation: - Discharge patient to home. - Resume previous diet. - Continue present medications. Procedure Code(s): --- Professional --- 08321, Esophagogastroduodenoscopy, flexible, transoral; with biopsy, single or multiple CPT copyright 2021 [employer]. All rights reserved. The codes documented in this report are preliminary and upon social media designer review may be revised to meet current compliance requirements. Ranjan Muhammad DO 01/02/2024 10:58:40 AM This report has been signed electronically. Number of Addenda: 0 Note Initiated On: 01/02/2024 10:23 AM
--- NOTE | 2024-01-02 10:59 | OP.CCLET_ITS ---
01/02/2024 Miguel Stewart Re : Upper GI endoscopy procedure for Eligio cMcabe Dear Dr. Stewart This procedure was performed on December. My impressions and recommendations are as follows: Impressions : - Z-line irregular. Biopsied. - Betzy-Persaud tear. - Bile gastritis. - A pyloroplasty was found, characterized by friable mucosa, congestion, edema and erythema. - No gross lesions in the duodenal bulb. Recommendations : - Discharge patient to home. - Resume previous diet. - Continue present medications. My findings are described in the full procedure note, which is enclosed. If I can be of further assistance, please feel free to contact me at . Sincerely, Ranjan Muhammad, 01/02/2024 10:58:40 AM This report has been signed electronically.
[2024-01-02 11:00] VITALS: BP 106/58; BP 90/57; PULSE 60; RESP 16; O2SAT 99
[2024-01-02 11:05] VITALS: BP 106/58; BP 97/90; PULSE 62; RESP 16; O2SAT 99
[2024-01-02 11:10] VITALS: BP 105/57; BP 106/58; PULSE 60; RESP 16; TEMP 36.6; O2SAT 97
[2024-01-02 11:24] VITALS: BP 106/58
== END 2024-01-02 11:31 | disposition home or self-care (01) ==
LOC: EN 08:28 → AC 08:31
PROVIDERS: PCP Family Medicine; Referring Provider Internal Medicine Gastroenterology; Visit Provider Internal Medicine Gastroenterology
PROC: 0DJ08ZZ Inspection of Upper Intestinal Tract, Via Natural or Artificial Opening Endoscopic (ICD-10-PCS; CPT 43235; principal; 2024-01-02 09:25)
DX: K22.6 Gastro-esophageal laceration-hemorrhage syndrome (principal); J44.9 Chronic obstructive pulmonary disease, unspecified; K27.9 Peptic ulcer, site unspecified, unspecified as acute or chronic, without hemorrhage or perforation; K29.70 Gastritis, unspecified, without bleeding; K21.9 Gastro-esophageal reflux disease without esophagitis; E78.00 Pure hypercholesterolemia, unspecified; I10 Essential (primary) hypertension; Z99.81 Dependence on supplemental oxygen; Z79.51 Long term (current) use of inhaled steroids; Z79.899 Other long term (current) drug therapy; Z87.891 Personal history of nicotine dependence
CPT/HCPCS: 43239; 88305; 88313; 88341; 88342; J7120; J2405

== ENCOUNTER → 2024-01-07 | Outpatient (CLI) | payer MEDICARE, MEDICAID, SELFPAY ==
--- NOTE | 2024-01-07 13:49 | CT_ITS ---
STUDY: LOW DOSE CT LUNG CANCER SCREENING REASON FOR EXAM: Male, 73 years old. Lung Nodules. Previous smoker. COPD. RADIATION DOSAGE (If Supplied By Facility): CTDIvol = ( 2.20 ) mGy, DLP = ( 73.26 ) mGycm TECHNIQUE: No contrast was administered. Low dose technique was utilized (average mAS-38 and kVp 120). 1.25 mm axial source images with a slice interval of 1.25-mm were reconstructed in lung windows. 2.5 mm axial source images with a slice interval of 2.5-mm were reconstructed in lung windows. 5.0 mm axial source images with a slice interval of 5.0-mm were reconstructed in soft tissue windows. COMPARISON: Comparison is made with prior study dated July 08, 2023. NODULES: There is a new 9.3 mm noncalcified nodule in the lateral aspect of the right upper lobe as seen on axial image #70. Dense consolidation in the right lower lobe with air bronchograms. Patchy consolidation in the left lower lobe. There is evidence of a bronchiectasis in the lower lobes worse on the right side. The previously seen nodular density in the anterior aspect of the right middle lobe has resolved. Emphysema: Emphysematous changes. Endobronchial lesion: None Aorta: Atherosclerotic plaque formation. CORONARY ARTERIES: Coronary artery calcification is seen. Heart: Unremarkable Pulmonary artery: Mediastinal nodes: Small mediastinal lymph nodes. Other chest and abdominal findings: CT/Low Dose CT Lung Screening IMPRESSION: Lung-RADS category 4A - Screening at 3 months with LDCT or evaluation with PET/CT may be used. IMPORTANT NOTES FOR USE: ACR Lung-RADS Version 1.1 Assessment Categories Release Date: 2018 Category: Coded 0-4 bases on nodule(s) with highest degree of suspicion. Negative screen is defined as categories 1 and 2; a positive screen is defined as categories 3 and 4. Category 3 and 4A nodules that are unchanged on interval CT should be coded as category 2, and individuals returned to screening in 12 months. Category 4X: Category 3 or 4 nodules with additional imaging findings that increase the suspicion of lung cancer, such as spiculation, GGN that doubles in size in 1 year, enlarged lymph notes, etc. Category Modifiers: S (significant finding unrelated to lung cancer) Electronically Signed: Giovany Roth MD at 11:41 EDT ,
--- NOTE | 2024-01-07 13:49 | CT_ITS ---
EXAM: CT ANGIOGRAPHY CHEST WITHOUT AND WITH INTRAVENOUS CONTRAST CLINICAL INDICATION: dilated aortic root TECHNIQUE: Helically acquired angiography images were obtained of the chest without and with intravenous contrast. This CT exam was performed using one or more of the following dose reduction techniques: automated exposure control, adjustment of the mA and/or kV according to patient size, and/or use of iterative reconstruction technique. MIP reconstructed images were created and reviewed. RADIATION DOSE: CTDIvol = 10.39 mGy, DLP = 205.45 mGy-cmContrast: IV 100mL [id number] COMPARISON: Low-dose lung CT the same day. Low-dose CT for lung screening July 08, 2023. FINDINGS: PULMONARY ARTERIES: Moderate coronary artery calcifications and/or stents. Small pericardial effusion. No intracardiac filling defect of the right heart chambers are not well opacified, mildly delayed phase exam for PE protocol. Normal in caliber. AORTA: Ascending aorta is 3.9 cm, descending thoracic aorta 2.9 cm. Normal in caliber. No evidence of dissection. GREAT VESSELS OF AORTIC ARCH: Unremarkable. Normal in caliber. No evidence of dissection. LUNGS AND PLEURAL SPACES: There is a moderate-large juxtapleural zone airspace disease with ill-defined margins at the posterior right lower lobe, and thick band of atelectasis extending to another zone of solid aeration with air bronchograms at the posterior-inferior right lower lobe. Nodule of roughly 8 mm x 6 mm in the lateral right upper lobe. Additional mildly nodular interstitial thickening at the posterior right upper lobe. Small right pleural effusion. HEART: Unremarkable. Heart size is normal. No pericardial effusion. No significant coronary artery calcifications. MEDIASTINUM: Unremarkable. No mediastinal or hilar adenopathy. Esophagus is unremarkable. No hiatal hernia. THYROID: Unremarkable. No thyroid lesions. BONES/JOINTS: Moderate degenerative this is irregular opacity and air bronchograms posterior-medial left lung base and the retrocardiac region. No suspicious lytic or blastic abnormality. LIVER: Small presumed hepatic and renal cysts, the kidneys are not fully included. ADRENALS: Mild bilateral adrenal fullness. CT/CTA Chest W/WO Contrast IMPRESSION: 1: No convincing PE. Some of the small distal vessels are not well opacified and there is motion blurring. Suboptimal exam. 2. 8 mm right upper lobe nodule is new. Nonspecific. Multiple more subtle interstitial and interstitial nodular changes in the right upper lobe. RECOMMENDATIONS: Fleischner Society Guidelines (MacMahon, et al. Radiology 2017; 284(1):228-43) suggest the following. For high-risk patients initial follow-up chest CT at 6-12 months and if unchanged, 18-24 months. 3. Moderate multifocal zones of dense juxtapleural airspace disease in the right lower lobe, including some consolidation associated with bronchiectasis in the right lung base. Correlate with pneumonia. 4. Vascular crowding and air bronchograms in the left lung base. Electronically Signed: Radha Herbert MD at 7:41 EDT ,
== END | disposition home or self-care (01) ==
LOC: CT 13:48
PROVIDERS: PCP Family Medicine; Referring Provider Internal Medicine Critical Care Medicine; Visit Provider Internal Medicine Critical Care Medicine
DX: Z12.2 Encounter for screening for malignant neoplasm of respiratory organs (principal); F17.210 Nicotine dependence, cigarettes, uncomplicated; I77.810 Thoracic aortic ectasia
CPT/HCPCS: 71271; 71275; Q9967

== ENCOUNTER → 2024-01-13 | Outpatient (CLI) | payer MEDICARE, MEDICAID, SELFPAY ==
[2024-01-13 14:57] LABS: Absolute Lymphocyte Count 1.05 X10^3/uL (0.83-4.51); Absolute Neutrophil Count 7.3 X10^3/uL (2.0-7.7); Basophil# 0.09 X10^3/uL; Basophil% 0.9 % (0-1); Eosinophil# 0.99 X10^3/uL; Eosinophils% 9.8 % (0-5); Hematocrit 32.8 % (40-54); Hemoglobin 10.2 g/dL (13.0-16.5); Lymphocyte # 1.05 X10^3/ul (0.83-4.51); Lymphocyte % 10.4 % (19-41); Mean Corp Hgb Conc 31.1 g/dL (32-36); Mean Corpuscular Hgb 30.4 pg (27.0-32.0); Mean Corpuscular Volume 97.6 fL (80-94); Mean Platelet Vol. 8.9 fl (6.2-12.0); Monocyte# 0.66 X10^3/uL; Monocyte% 6.5 % (0-10); NRBC Flagged by Analyzer 0 % (0-5); Neutrophil # 7.28 X10^3/uL (2.7-7.7); Neutrophil % 71.7 % (47-70); Platelet Count 340 K/mm3 (150-450); RBC Distribution Width CV 16.2 % (11.6-14.6); RBC Distribution Width SD 58.7 fl (35.1-43.9); RET-HE 31.6 pg (30-35); Red Blood Count 3.36 M/mm3 (4.6-6.2); Reticulocyte Count 2.07 % (0.5-1.5); White Blood Count 10.1 K/mm3 (4.4-11.0)
[2024-01-13 15:54] LABS: Ammonia < 10.0 umol/L (11-32)
[2024-01-13 16:25] LABS: Amylase 86 U/L (25-115); Ferritin 202 ng/mL (26-388); Free T3 1.7 pg/mL (2.18-3.98); Iron 33 ug/dL (65-175); Iron Binding Capacity,Total 247 ug/dL (250-450); LDH 221 U/L (87-241); Lipase 55 U/L (13-75); T4 Free Direct 1.02 ng/dL (0.76-1.46); Thyroid Stim Hormone (TSH) 1.81 uIU/mL (0.358-3.74)
[2024-01-14 19:47] LABS: Erythrocyte Sedimentation Rate 39 mm/hr (0-20)
[2024-01-20 00:08] LABS: ACCA 25 units (0-90); ALCA 22 units (0-60); AMCA 52 units (0-100); Albumin 3.2 g/dL (2.9-4.4); Alpha-1-Globulins 0.3 g/dL (0.0-0.4); Alpha-2-Globulins 0.9 g/dL (0.4-1.0); Angiotensin Convert Enzyme 73 U/L (14-82); Cytoplasmic Ab (C-ANCA) <1:20 titer (Neg:<1:20); Endomysial Antibody IgA Negative (Negative); Gamma Globulin 1.7 g/dL (0.4-1.8); Haptoglobin 162 mg/dL (34-355); Immunoglobulin A 481 mg/dL (61-437); Immunoglobulin E 681 IU/mL (6-495); Immunoglobulin G 1751 mg/dL (603-1613); Immunoglobulin M 34 mg/dL (15-143); PROEL- TOTAL PROTEIN 7.4 g/dL (6.0-8.5); Perinuclear Ab (P-ANCA) <1:20 titer (Neg:<1:20); QNTFERON TB Mitogen Value 5.26 IU/mL (.); QNTFERON TB Nil Value 0 IU/mL (.); QNTFERON TB1+ Ag Value 0.03 IU/mL (.); QNTFERON TB2+ Ag Value 0.01 IU/mL (.); QNTIFERON TB Positive Criteria Negative (Negative); gASCA 96 units (0-50); t-Transglutaminase IgA <2 U/mL (0-3)
[2024-01-21 01:06] LABS: Calprotectin, Stool 207 ug/g (0-120)
[2024-01-21 14:09] LABS: Giardia Lamblia, Stool EIA Negative (Negative); Pancreatic Elastase, Fecal 166 (>200)
== END | disposition home or self-care (01) ==
LOC: LAB 14:23
PROVIDERS: PCP Family Medicine; Referring Provider Internal Medicine Gastroenterology; Visit Provider Internal Medicine Gastroenterology
DX: D53.9 Nutritional anemia, unspecified (principal); R63.4 Abnormal weight loss
CPT/HCPCS: 36415; 82140; 82150; 82164; 82533; 82653; 82728; 82746; 82784; 82785; 83010; 83516; 83540; 83550; 83615; 83690; 83993; 84165; 84439; 84443; 84481; 85025; 85045; 85652; 86036; 86140; 86255; 86256; 86334; 86480; 86671; 87329

== ENCOUNTER → 2024-01-28 | Outpatient (CLI) | payer MEDICARE, MEDICAID, SELFPAY ==
--- NOTE | 2024-01-28 11:00 | PET_ITS ---
EXAMINATION: FDG PET/CT ? INDICATIONS: 73-year-old male with a history of pulmonary nodularity. ? COMPARISON EXAMINATION: CT of the chest 01/07/24 ? INDEX LESION SIZE SUV INTERPRETATION Right lower lung field, right lower lobe ? 2.1 max Quantitative criteria for viable neoplasm are not fulfilled, sequential radiologic investigation recommended ? TECHNIQUE: Following the intravenous administration of 14.38 mCi of F-18 deoxyglucose via the right antecubital fossa, multiplanar image acquisitions of the head, neck, chest, abdomen and pelvis to the level of the midthigh, obtained at one-hour post radiopharmaceutical administration contemporaneously interpreted with the current CT of the chest, abdomen and pelvis dated 01/28/2024 via coregistration reveal: ? SERUM GLUCOSE LEVEL:? 66 mg/dL? HEIGHT:?? 73 inches WEIGHT:?? 148 pounds ? FINDINGS: ? HEAD/NECK:? There is no evidence of abnormal increased glucose metabolism in the pharyngeal mucosal space, parapharyngeal space, oropharynx, bilateral-lateral and anterior neck, hypopharynx and distribution of the larynx. ? The visualized portion of the cerebral cortical-subcortical structures demonstrate symmetric and preserved glucose metabolism. ? CHEST:? Facilitated FDG concentration is defined in the right lower posterior lung field, right lower lobe generating a calculated standard uptake value of 2.1. ? CT of the chest demonstrates the following anatomic characteristics: A right hemithorax pleural effusion demonstrates no evidence of quantitatively significant increased FDG uptake. A linear density noted in the left lower lung zone posteriorly is ametabolic. Atherosclerotic calcification is defined in the thoracic aorta without evidence of dilatation, aneurysm formation. Coronary artery calcification is observed. Mediastinal and bilateral axillary soft tissue densities are ametabolic. ? ABDOMEN/PELVIS:? Normal physiologic distribution of the radiopharmaceutical is identified in the hepatic (2.3) and splenic parenchyma, both renal units, urinary bladder, and visualized intestinal tract. Diffuse intestinal tract is identified in all four quadrants of the abdominal-pelvic mesentery. ? CT of the abdomen and pelvis is remarkable for the following: A urethral catheter is defined. Atherosclerotic calcification is defined in the abdominal aorta without evidence of dilatation, aneurysm formation. Abdominal and pelvic arterial calcification is observed. Right and left inguinal soft tissue densities are ametabolic. ? SKELETAL:? There is no evidence of quantitatively significant enhanced glucose metabolism on meticulous inspection of the appendicular and axial skeletal structures. ? Degenerative changes defined in the thoracic and lumbar spine demonstrate no evidence of increased glucose metabolism. There are no sclerotic, mixed sclerotic-lytic, or primarily lytic changes defined in the axial skeletal structures with evidence of increased FDG uptake. ? PET/PET/CT Tumor Base -Thigh Init IMPRESSION: 1. NEGATIVE EXAMINATION. There is no definitive quantitative scintigraphic evidence of viable neoplasm. 2. Metabolic, morphologic stability may be ensured in the right hemithorax pulmonary parenchyma with repeat FDG-PET CT imaging and/or CT of the chest in 3-6 months, if indicated. 3. No other quantitatively significant hypermetabolic abnormalities are noted. Electronic Signature Severino Gordon D.O. Accurate Quantification of SUVs for this report are calculated using the exclusive [employer] Technology. ([place].S. Patent No. [id number] [id number] 983 B2 [phone] [place] patent [phone]). Standardization and correction of the FDG SUV metric via [employer] technology allow for vendor non-specific objective quantitative examination comparison and optimization of the sensitivity and specificity of the FDG PET-CT examination. . [email or web address] Electronically Signed: Severino Gordon DO at 8:40 EDT ,
== END | disposition home or self-care (01) ==
LOC: ONC 10:31
PROVIDERS: PCP Family Medicine; Referring Provider Nurse Practitioner Acute Care; Visit Provider Nurse Practitioner Acute Care
DX: R91.8 Other nonspecific abnormal finding of lung field (principal)
CPT/HCPCS: 78815; A9552

== ENCOUNTER → 2024-02-05 | Outpatient (CLI) | payer MEDICARE, MEDICAID, SELFPAY ==
[2024-02-05 17:29] LABS: Absolute Lymphocyte Count 1.23 X10^3/uL (0.83-4.51); Absolute Neutrophil Count 7.4 X10^3/uL (2.0-7.7); Basophil# 0.09 X10^3/uL; Basophil% 0.9 % (0-1); Eosinophil# 0.93 X10^3/uL; Hematocrit 36.4 % (40-54); Hemoglobin 11.1 g/dL (13.0-16.5); Lymphocyte # 1.23 X10^3/ul (0.83-4.51); Lymphocyte % 11.9 % (19-41); Mean Corp Hgb Conc 30.5 g/dL (32-36); Mean Corpuscular Volume 98.4 fL (80-94); Mean Platelet Vol. 9.2 fl (6.2-12.0); Monocyte# 0.71 X10^3/uL; Monocyte% 6.9 % (0-10); NRBC Flagged by Analyzer 0 % (0-5); Neutrophil # 7.37 X10^3/uL (2.7-7.7); Platelet Count 359 K/mm3 (150-450); RBC Distribution Width CV 15.2 % (11.6-14.6); RBC Distribution Width SD 55.2 fl (35.1-43.9); White Blood Count 10.4 K/mm3 (4.4-11.0)
[2024-02-05 18:04] LABS: ALB/GLOB Ratio 0.7 RATIO (0.9-2.4); AST(SGOT) 20 U/L (15-37); Alanine Aminotransfer ALT/SGPT 20 U/L (16-61); Albumin, Serum 3.2 g/dL (3.2-5.0); Alkaline Phosphatase 94 U/L (45-117); Anion Gap 3 (5-15); BUN 24 mg/dL (7-18); BUN/Creat Ratio 20.9 RATIO (10-20); Chloride 105 mmol/L (98-107); Creatinine, Serum 1.15 mg/dL (0.70-1.30); EST Glomerular Filtration Rate 66 mL/min (>60); Est Glom Filt Rate - Afr Amer 80 mL/min (>60); Globulin 4.9 g/dL (2.2-4.2); Glucose 100 mg/dL (74-106); Potassium 4.4 mmol/L (3.5-5.1); Protein, Total 8.1 g/dL (6.4-8.2); Sodium Level 136 mmol/L (136-145)
== END | disposition home or self-care (01) ==
LOC: BIMLAB 15:14
PROVIDERS: PCP Family Medicine; Visit Provider Physician Assistant
DX: D53.9 Nutritional anemia, unspecified (principal); N17.9 Acute kidney failure, unspecified
CPT/HCPCS: 36415; 80053; 85025

== ENCOUNTER → 2024-02-21 | Outpatient (CLI) | payer MEDICARE, MEDICAID, SELFPAY ==
--- NOTE | 2024-02-21 13:48 | CT_ITS ---
EXAM: CT Enterography (Abd / Pelvis) W/ Contrast HISTORY: enteritis, small bowel stricture vs volvulus -- Enterography COMPARISON: None Technique: 3.75 mm helical cuts were performed through the abdomen and pelvis with oral and 100 mL Isovue 300 contrast. MPR performed. Studies were obtained and both arterial and venous phase with delayed images also performed. Comparison: PET/CT study from 01/28/2024 FINDINGS: Lung bases show underlying emphysema with chronic interstitial changes and bronchiectatic changes in the left lung base. There is a small right pleural effusion with associated atelectasis. There are calcified coronary vessels, there is a thin pericardial effusion present. Diffuse fatty infiltration of the liver is noted without a discrete lesion, there are scattered simple hepatic cysts. Gallbladder is contracted without gallstones. Normal-appearing spleen, pancreas, and adrenal glands. No obstructive uropathy or suspicious solid renal lesion, there is a stable nonobstructing 1.9 cm stone in the lower pole of the left kidney. Multiple nondistended small bowel loops are noted consistent with ileus/early SBO. However no transition point is identified. This could be due to retained stool throughout the entirety of the colon including the sigmoid colon and rectum. There are scattered sigmoid diverticula without CT evidence of acute diverticulitis. No free intraperitoneal fluid, air, or suspicious adenopathy noted. There is nonvisualization of the appendix. Peripheral calcifications in the ectatic abdominal aorta without aneurysm. Bladder contains a Rocha catheter and some air likely from Rocha placement. There is nonspecific gallbladder wall thickening which may be due to bladder outlet issues as there are multiple calcifications noted within the prostate suggesting chronic prostatitis. Bony structures show degenerative change without lytic or blastic lesion. CT/Abdomen/Pelvis WITH Contrast IMPRESSION: Borderline distended fluid-filled small bowel loops throughout the abdomen and pelvis consistent with ileus/early obstruction. Transition point is not identified. This is most likely due to retained stool throughout the entirety of the colon. Scattered colonic diverticula, likely in the sigmoid colon without evidence of acute diverticulitis. No suspicious solid organ abnormality, simple hepatic cysts, nonobstructing left nephrolithiasis, no specific follow-up needed. No free intraperitoneal fluid, air, or suspicious adenopathy Rocha catheter within the bladder Diffuse atherosclerosis Degenerative bony changes Electronically Signed: Rick Gilliam MD at 10:36 EDT ,
== END | disposition home or self-care (01) ==
LOC: CT 13:47
PROVIDERS: PCP Family Medicine; Referring Provider Internal Medicine Gastroenterology; Visit Provider Internal Medicine Gastroenterology
DX: K52.9 Noninfective gastroenteritis and colitis, unspecified (principal)
CPT/HCPCS: 74177; Q9967

== ENCOUNTER → 2024-05-18 | Outpatient (CLI) | payer MEDICARE, MEDICAID, SELFPAY ==
--- NOTE | 2024-05-18 13:10 | CT_ITS ---
INDICATION: high risk lung nodule EXAMINATION: CT CHEST WITHOUT CONTRAST - CT Chest W/O Contrast Injection TECHNIQUE: Helically acquired images were obtained of the chest. The protocol utilizes one or more of the following dose reduction techniques: automated exposure control, adjustment of mA and/or kV according to patient size,and/or use of iterative reconstruction technique. IV Contrast dosage and agent: None. RADIATION DOSAGE (If Supplied By Facility): CTDIvol = ( 9.28 ) mGy, DLP = ( 322.34 ) mGycm COMPARISON: Prior study dated: 01/07/2024 FINDINGS: LUNGS, PLEURA AND LARGE AIRWAYS: The central airways are patent. Mild paraseptal emphysema at the apices. Mild bronchiectasis. Bibasilar atelectasis. The previously seen lateral right upper lobe nodule has resolved. There is new patchy opacity scattered in the left lung in the upper lobe. No masses, dense consolidation, or edema. No pleural effusion or thickening. No pneumothorax. THYROID: No thyroid lesions. HEART AND PERICARDIUM: Prominent heart. Trace pericardial effusion. CORONARY ARTERIES: Coronary artery calcification is seen. VESSELS: Thoracic aorta is not dilated. MEDIASTINUM AND ANJELICA: No mediastinal or hilar adenopathy. Esophagus is unremarkable. Small hiatal hernia. UPPER ABDOMEN: No acute pathology. BONES: No suspicious lytic or blastic abnormality. CT/Chest without Contrast IMPRESSION: The previously seen right upper lobe pulmonary nodule has resolved. There is new patchy opacity seen in the left upper lobe which is likely infectious or inflammatory. Continue annual screening. Electronically Signed: Josiah Cheung MD at 8:47 EDT ,
== END | disposition home or self-care (01) ==
PROVIDERS: PCP Family Medicine; Referring Provider Nurse Practitioner Acute Care; Visit Provider Nurse Practitioner Acute Care
DX: R91.1 Solitary pulmonary nodule (principal)
CPT/HCPCS: 71250

== ENCOUNTER → 2024-07-01 | Outpatient (CLI) | payer MEDICARE, MEDICAID, SELFPAY ==
[2024-07-01 15:21] LABS: Cholesterol 168 mg/dL (200); High Density Lipoprotein 70 mg/dL; Triglycerides 88 mg/dL; Very Low Density Lipoprotein 18 mg/dL (5-40)
[2024-07-01 16:07] LABS: Hepatitis C Antibody Non-Reactive (Nonreactive)
== END | disposition home or self-care (01) ==
LOC: BIMLAB 11:48
PROVIDERS: PCP Family Medicine; Referring Provider Family Medicine; Visit Provider Family Medicine
DX: E78.5 Hyperlipidemia, unspecified (principal); K50.90 Crohn's disease, unspecified, without complications
CPT/HCPCS: 36415; 80061; 86803

== ENCOUNTER → 2024-08-24 | Outpatient (CLI) | payer MEDICARE, MEDICAID, SELFPAY ==
[2024-08-24 12:45] VITALS: PULSE 75; PULSE 76; PULSE 77; PULSE 78; PULSE 79; PULSE 80; O2SAT 94; O2SAT 95; O2SAT 96; O2SAT 97; O2SAT 98
== END | disposition home or self-care (01) ==
LOC: PSN 12:24
PROVIDERS: PCP Family Medicine; Referring Provider Nurse Practitioner Acute Care; Visit Provider Nurse Practitioner Acute Care
DX: J43.2 Centrilobular emphysema (principal)
CPT/HCPCS: 94618

== ENCOUNTER → 2024-08-28 | Outpatient (CLI) | payer MEDICARE, MEDICAID, SELFPAY | END | disposition home or self-care (01) | LOC: PSN 12:47 | PROVIDERS: PCP Family Medicine; Referring Provider Nurse Practitioner Acute Care; Visit Provider Nurse Practitioner Acute Care | DX: J43.2 Centrilobular emphysema (principal) | CPT/HCPCS: 94060; 94726; 94729 ==

== ENCOUNTER → 2024-10-20 | Outpatient (CLI) | payer MEDICARE, MEDICAID, SELFPAY ==
[2024-10-20 16:42] LABS: Absolute Lymphocyte Count 1.17 X10^3/uL (0.83-4.51); Absolute Neutrophil Count 7.6 X10^3/uL (2.0-7.7); Eosinophils% 5.8 % (0-5); Hemoglobin 13.1 g/dL (13.0-16.5); Lymphocyte # 1.17 X10^3/ul (0.83-4.51); Lymphocyte % 11.3 % (19-41); Mean Corp Hgb Conc 31.2 g/dL (32-36); Mean Corpuscular Hgb 32.8 pg (27.0-32.0); Mean Platelet Vol. 9.6 fl (6.2-12.0); Monocyte# 0.86 X10^3/uL; Monocyte% 8.3 % (0-10); NRBC Flagged by Analyzer 0 % (0-5); Neutrophil # 7.63 X10^3/uL (2.7-7.7); Neutrophil % 73.2 % (47-70); Platelet Count 252 K/mm3 (150-450); RBC Distribution Width CV 13.4 % (11.6-14.6); RBC Distribution Width SD 52.4 fl (35.1-43.9); White Blood Count 10.4 K/mm3 (4.4-11.0)
== END | disposition home or self-care (01) ==
LOC: BIMLAB 15:52
PROVIDERS: PCP Family Medicine; Referring Provider Family Medicine; Visit Provider Family Medicine
DX: K50.90 Crohn's disease, unspecified, without complications (principal)
CPT/HCPCS: 36415; 85025

== ENCOUNTER → 2024-11-09 | Outpatient (CLI) | payer MEDICARE, MEDICAID, SELFPAY ==
[2024-11-09 18:02] LABS: Rheumatoid Factor < 10.0 IU/mL (<15)
[2024-11-11 14:08] LABS: ANTINUCLEAR ANTIBODIES DIRECT Negative (Negative)
[2024-11-12 08:10] LABS: CCP IgG Antibodies 2 units (0-19); Cytoplasmic Ab (C-ANCA) <1:20 titer (Neg:<1:20); Perinuclear Ab (P-ANCA) <1:20 titer (Neg:<1:20)
== END | disposition home or self-care (01) ==
PROVIDERS: Nurse Practitioner Family; PCP Family Medicine; Referring Provider Nurse Practitioner Acute Care; Visit Provider Nurse Practitioner Acute Care
DX: R06.02 Shortness of breath (principal)
CPT/HCPCS: 36415; 86037; 86038; 86200; 86431

== ENCOUNTER → 2024-11-09 | Outpatient (CLI) | payer MEDICARE, MEDICAID, SELFPAY | END | disposition home or self-care (01) | LOC: SL 19:38 | PROVIDERS: PCP Family Medicine; Referring Provider Nurse Practitioner Family; Visit Provider Nurse Practitioner Family | DX: G47.10 Hypersomnia, unspecified (principal) | CPT/HCPCS: 95810 ==

== ENCOUNTER → 2024-11-13 | Outpatient (CLI) | payer MEDICARE, MEDICAID, SELFPAY ==
[2024-11-16 00:07] LABS: Pancreatic Elastase, Fecal 782 (>200)
[2024-11-18 07:07] LABS: Calprotectin, Stool 220 ug/g (0-120)
== END | disposition home or self-care (01) ==
LOC: MTLAB 11:12
PROVIDERS: PCP Family Medicine; Referring Provider Nurse Practitioner Acute Care; Visit Provider Nurse Practitioner Acute Care
DX: K50.90 Crohn's disease, unspecified, without complications (principal); K90.0 Celiac disease; D53.9 Nutritional anemia, unspecified; K21.9 Gastro-esophageal reflux disease without esophagitis
CPT/HCPCS: 82653; 83993

== ENCOUNTER → 2024-11-20 | Outpatient (CLI) | payer MEDICARE, MEDICAID, SELFPAY ==
--- NOTE | 2024-11-20 13:45 | CT_ITS ---
PROCEDURE: Noncontrast CT of the chest. REASON FOR EXAM: Shortness of breath TECHNIQUE: Contiguous unenhanced axial CT images were obtained through the chest. Axial images were obtained prone. Sagittal and coronal reformats were created and reviewed. COMPARISON: 05/18/2024 FINDINGS: The bones are osteopenic with degenerative changes in the spine. Evaluation of hilar/vascular/mediastinal structures is limited due to lack of intravenous contrast. In the upper abdomen, there are bilateral nonobstructing renal calculi, the largest inferiorly on the left measuring 14 mm. A few scattered tiny subcentimeter low- density lesions in the liver, favored to represent cysts. Patchy wall thickening of the stomach may be due to lack of distention versus peristalsis. Heart size within normal limits. No sizable pericardial effusion. Extensive coronary artery calcifications. No thoracic adenopathy or dominant breast lesion. Tiny hiatal hernia. Ascending thoracic aorta at the upper limits of normal at 3.8 cm. Central airway clear. The lungs are emphysematous. There is similar upper and lower lobe bronchiectasis. No large focal airspace consolidation, pneumothorax, or pleural effusion. The patchy areas of ill-defined density in the left upper lobe on the 05/18/2024 study have largely resolved. There is a new lobulated 1 cm subpleural nodule in the superior segment left lower lobe image 74 of the axial lung windows. There are some scattered areas of scarring or subsegmental atelectasis in the lower lobes. Some patchy density in the inferior lateral left lower lobe image 89 of the axial lung windows, not significantly changed compared to 05/18/2024 and may be due to chronic atelectasis or scarring. CT/Chest without Contrast IMPRESSION: Emphysema. The patchy areas of ill-defined density in the left upper lobe on t 05/18/2024 study have largely resolved. No dense focal airspace consolidation or pleural effusion. There is a new 1 cm lobulated nodular area of density in the posterior subpleur al superior segment left lower lobe. This may represent an infectious or inflammatory nodule. Suggest a follow-up chest CT i n 2-3 months to re-evaluate. Similar upper and lower lobe bronchiectasis. Scattered areas of probable scarr ing or subsegmental atelectasis or scarring in the lower lobes, similar in appearance at the inferior lateral aspect of the left l ower lobe. No thoracic adenopathy. Extensive coronary artery calcifications. Nonobstructing bilateral renal calculi, the largest on the left at 14 mm. One or more dose reduction techniques were used (e.g., Automated exposure contr ol, adjustment of the mA and/or kV according to patient size, use of iterative reconstruction technique). [facility]
== END | disposition home or self-care (01) ==
LOC: CT 13:44
PROVIDERS: PCP Family Medicine; Referring Provider Nurse Practitioner Family; Visit Provider Nurse Practitioner Family
DX: R06.02 Shortness of breath (principal)
CPT/HCPCS: 71250

== ENCOUNTER → 2024-11-25 | Outpatient (CLI) | payer MEDICARE, MEDICAID, SELFPAY | END | disposition home or self-care (01) | LOC: SL 20:06 | PROVIDERS: PCP Family Medicine; Referring Provider Nurse Practitioner Family; Visit Provider Nurse Practitioner Family | DX: G47.33 Obstructive sleep apnea (adult) (pediatric) (principal) | CPT/HCPCS: 95811 ==

== ENCOUNTER → 2024-11-27 | Outpatient (CLI) | payer MEDICARE, MEDICAID, SELFPAY ==
[2024-11-27 13:45] LABS: Absolute Lymphocyte Count 1.42 X10^3/uL (0.83-4.51); Absolute Neutrophil Count 5.2 X10^3/uL (2.0-7.7); Basophil# 0.11 X10^3/uL; Basophil% 1.4 % (0-1); Eosinophil# 0.58 X10^3/uL; Eosinophils% 7.2 % (0-5); Hematocrit 36.2 % (40-54); Hemoglobin 11.3 g/dL (13.0-16.5); Lymphocyte # 1.42 X10^3/ul (0.83-4.51); Lymphocyte % 17.5 % (19-41); Mean Corp Hgb Conc 31.2 g/dL (32-36); Mean Corpuscular Hgb 34.3 pg (27.0-32.0); Mean Platelet Vol. 9.6 fl (6.2-12.0); Monocyte% 9.9 % (0-10); NRBC Flagged by Analyzer 0 % (0-5); Neutrophil # 5.15 X10^3/uL (2.7-7.7); Neutrophil % 63.5 % (47-70); Platelet Count 263 K/mm3 (150-450); RBC Distribution Width CV 14.9 % (11.6-14.6); RBC Distribution Width SD 61.4 fl (35.1-43.9); Red Blood Count 3.29 M/mm3 (4.6-6.2); White Blood Count 8.1 K/mm3 (4.4-11.0)
[2024-11-27 14:16] LABS: ALB/GLOB Ratio 0.9 RATIO (0.9-2.4); AST(SGOT) 21 U/L (15-37); Alanine Aminotransfer ALT/SGPT 22 U/L (16-61); Albumin, Serum 3.7 g/dL (3.2-5.0); Alkaline Phosphatase 77 U/L (45-117); Anion Gap 4 (5-15); BUN 14 mg/dL (7-18); BUN/Creat Ratio 10.4 RATIO (10-20); CRP < 2.90 mg/L (0.0-3.0); Calcium,Total 9.6 mg/dL (8.5-10.1); Chloride 106 mmol/L (98-107); Creatinine, Serum 1.35 mg/dL (0.70-1.30); EST Glomerular Filtration Rate 55 mL/min (>60); Est Glom Filt Rate - Afr Amer 66 mL/min (>60); Globulin 3.9 g/dL (2.2-4.2); Glucose 102 mg/dL (74-106); Potassium 4.4 mmol/L (3.5-5.1); Protein, Total 7.6 g/dL (6.4-8.2); Sodium Level 137 mmol/L (136-145)
== END | disposition home or self-care (01) ==
LOC: LAB 12:55
PROVIDERS: PCP Family Medicine; Referring Provider Nurse Practitioner Acute Care; Visit Provider Nurse Practitioner Acute Care
DX: D64.9 Anemia, unspecified (principal); R19.5 Other fecal abnormalities
CPT/HCPCS: 36415; 80053; 85025; 86140

== ENCOUNTER → 2024-12-22 | Outpatient (CLI) | payer MEDICARE, MEDICAID, SELFPAY | END | disposition home or self-care (01) | LOC: SL 14:06 | PROVIDERS: PCP Family Medicine; Visit Provider Nurse Practitioner Family | DX: Z00.00 Encounter for general adult medical examination without abnormal findings (principal) ==

== ENCOUNTER → 2024-12-25 | Outpatient (CLI) | payer MEDICARE, MEDICAID, SELFPAY ==
--- NOTE | 2024-12-25 11:30 | MRI_ITS ---
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 IV CONTRAST: 19 mL Clariscan. 1500 mL Breeza PO contrast also administered. COMPARISON: None FINDINGS: Note that the exam was optimized for evaluation of the bowel rather than the remaining soft tissues and abdominopelvic viscera. As such, portions of some upper abdominal viscera are excluded from the [id number]. Variable overall mild motion limitation, with some sequences being mild/moderately motion degraded. Note also that dynamic T2 and diffusion sequences were note that not performed. Liver: Tiny cysts. Spleen: Grossly unremarkable.. Gallbladder/biliary: Layering likely sludge within the gallbladder. Mild dilatation of the CBD to 9 mm. Pancreas: Few tiny T2 bright likely cystic foci up to 9 mm in the pancreatic tail. No ductal dilatation. Adrenals: Suspected thickening of the left adrenal nodule without discrete nodule allowing for motion in the region. Kidneys: Small cysts. Suspect a low signal intensity nonobstructing intrarenal at the left lower pole, not well evaluated by MRI, roughly 9 mm. Bowel: No bowel dilatation or convincing inflammation. No definite areas of mural stratification or mesenteric edema. Appearance of the terminal ileum on coronal postcontrast imaging favored related to underdistention on correlation with coronal T2 sequences, without definite areas of wall thickening or hyperemia identified. No definite evidence of fistulization or abscess, allowing for limitations. Note that the colon is not well evaluated due to moderate to large volume of retained stool and gas with associated artifact. Diverticulosis. Note that the perianal region extends below the field of view and can not be evaluated. Appendix is not identified. Lymph nodes: Grossly unremarkable. Vasculature: Atherosclerosis. Peritoneum: Unremarkable. Bladder: Suspect trabeculation with tiny diverticuli, suboptimally evaluated. Reproductive Organs: Suspect TURP. Note the prostate is partially imaged. Body Wall: Unremarkable. Bones: Lumbar spondylosis and mild dextroscoliosis. At least [id number] focal stenosis at L4-L5, suboptimally evaluated. 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 Left sacral Tarlov cyst. MRI/Enterography Abd/Pel IMPRESSION: 1. No convincing MRI evidence of inflammatory bowel disease, allowing for limit ations. Note that the colon is not well evaluated due to moderate to large volume of stool and gas with associated artifact. 2. Tiny pancreatic likely cystic foci up to 9 mm, likely cystic neoplasm such a s IPMN, incompletely characterized by MR enterography. No ductal dilatation. Recommend multiphase pancreatic protocol MRI abdomen with and without contrast and with MRCP in 2 years per ACR recommendations. 3. Mild dilatation of the CBD without visible obstructing process evident by MR enterography. Correlate with serum bilirubin and consider MRCP as above. 4. Additional description as above. Reading Location: [id number]
[2024-12-25 12:06] VITALS: BP 138/73; PULSE 67; RESP 18; O2SAT 94; BMI 25.7
[2024-12-25] MEDS: Glucagon 1 MG/ML Syringe IV (13:08)
[2024-12-25 13:30] VITALS: BP 133/53; PULSE 71; RESP 18; O2SAT 92
== END | disposition home or self-care (01) ==
LOC: MRI 11:12
PROVIDERS: PCP Family Medicine; Referring Provider Nurse Practitioner Acute Care; Visit Provider Nurse Practitioner Acute Care
DX: K50.90 Crohn's disease, unspecified, without complications (principal); R19.5 Other fecal abnormalities
CPT/HCPCS: 74183; 96374; A9575; A4216; J1610

== ENCOUNTER → 2025-01-01 | Outpatient (CLI) | payer MEDICARE, MEDICAID, SELFPAY | END | disposition home or self-care (01) | LOC: SL 11:43 | PROVIDERS: PCP Family Medicine; Referring Provider Nurse Practitioner Family; Visit Provider Nurse Practitioner Family | DX: Z00.00 Encounter for general adult medical examination without abnormal findings (principal) ==

== ENCOUNTER 2025-01-04 05:25 | Day surgery (SDC) | payer MEDICARE, MEDICAID, SELFPAY ==
--- NOTE | 2024-12-30 14:13 | PAT.ANESEVAL ---
Pre-Assessment Diagnosis/Proposed Procedure Planned Operative Procedure(s): EGD Anesthesia History Anesthesia History - double end production grinder: Anesthesia History - double end production grinder Hx Hospitalization No 12/30/24 13:26 Any Problems With Anesthesia No 12/30/24 13:26 Cholinesterase deficiency No 12/30/24 13:26 You/Your Family Experience No 12/30/24 13:26 fever (hyperthermia) with Relationship Recent Exposure to Contagious No 10/09/24 14:29 Disease Does patient have nerve No 12/30/24 13:26 stimulator Patient instructed to have device shut off --Does patient have Pacemaker or ICD? When Was Last Pacemaker Check QUESTION #4 FULL TEXT: You/Your Family Experience fever (hyperthermia) with Anesthesia Last Oral Intake Last Oral intake: Last Oral Intake NPO since Meds taken in AM with sips of water? Meds patient instructed to take am of surgery PONV PONV - double end production grinder: PONV - double end production grinder Female No 12/30/24 13:26 HX of Motion Sickness No 12/30/24 13:26 HX of N/V After Surgery No 12/30/24 13:26 Non-Smoker Yes 12/30/24 13:26 Duration of Surgery greater No 12/30/24 13:26 than 60 minutes Number of Risk Factors 1 12/30/24 13:26 PONV Score Low Risk 12/30/24 13:26 Height & Weight Height & Weight: Anesthesia: Height & Weight Height 6 ft 11/09/24 15:20 Respiratory Assessment Respiratory Assessment - double end production grinder: Respiratory Tract Infection Hx - double end production grinder Hx Respiratory Tract Infection No 12/30/24 13:26 STOP Sleep Apnea STOP Sleep Apnea - double end production grinder: STOP Sleep Apnea - double end production grinder Hx Hypertension Yes 12/30/24 13:26 Hx Sleep Apnea Yes 12/30/24 13:26 CPAP No 12/30/24 13:26 BIPAP Yes 12/30/24 13:26 Do you snore loudly (louder than talking or can be heard Do you often feel tired/ fatigued/ sleepy during daytime? Has anyone observed you stop breathing during sleep? STOP Results Positive 12/30/24 13:26 QUESTION #5 FULL TEXT : Do you snore loudly (louder than talking or can be heard through closed doors)? Tobacco Use History Tobacco Use History - double end production grinder: Tobacco Use History - double end production grinder Tobacco Use Smoking Status Former smoker 12/30/24 13:26 Hx Tobacco Use Yes 12/30/24 13:26 Years Smoking Packs Smoked per Day Smoking Cessation Date was Yes - quit smoking within 15 12/30/24 13:26 within the last 15 years years Hx Smoking Cessation Date 09/13/22 12/30/24 13:26 Hx Smoking Cessation No 12/30/24 13:26 Counseling Hematologic Medial History Hematologic Hx - double end production grinder: Hematologic Medical Hx - hide [employer] worker Hx of Blood Transfusion Yes 12/30/24 13:26 Hx of Transfusion in last 3 No 12/30/24 13:26 Months Date of Last Transfusion (if within last 3 months) Ever experience any problems No 12/30/24 13:26 with transfusion(s)? Specify any problems Hx of Preganancy in last 3 N/A 12/30/24 13:26 Months Nurse Filling Out Transfusion NBUCHER 12/30/24 13:26 & Questions: Date: 12/30/24 12/30/24 13:26 Time: 13:12/30/24 13:26 Patient unable to answer at this time (ie. confused, unrespo /Reproduction History /Reproductive History - double end production grinder: /Reproductive Hx- double end production grinder Hx Now Gestational Age (in weeks): EDC: Hx Hx Para Hx Section SAB No 12/30/24 13:26 PFSH Medical History (Updated 12/30/24 @ 13:[address] Miguel Stewart, DO) BiPAP (biphasic positive airway pressure) dependence Sleep apnea Bruising Enlarged prostate Anemia Esophageal ulcer with bleeding Drop foot gait Wears glasses Wears dentures Forgetfulness Arthritis High cholesterol Back pain Difficulty chewing History of hiatal hernia History of GI bleed Former smoker On home oxygen therapy COPD (chronic obstructive pulmonary disease) Shortness of breath on exertion Cardiology follow-up encounter History of stress test History of echocardiogram Overdose Severe protein-calorie malnutrition Pneumonia Syncope Depression Neuropathy Community acquired pneumonia GERD (gastroesophageal reflux disease) IBS (irritable bowel syndrome) History of stomach ulcers Arthritis Chronic pain Hyperlipidemia Hypertension Home Medications ?Medication ?Instructions ?Recorded ?Last Taken ?Type multivitamin 1 tab PO DAILY supplement 07/01/21 01/01/24 History glucosamine-chondroitin 250 mg-200 2 tab PO DAILY 01/12/23 01/01/24 History mg tablet (Osteo Bi-Flex) docusate sodium 100 mg capsule 100 mg PO DAILY Constipation 08/01/23 01/01/24 History (Colace) albuterol sulfate 90 mcg/actuation See Rx Instructions .Route 10/22/23 Unknown Rx aerosol inhaler .COMPLEX #8.5 grams rollator walker with seat #1 ea 11/05/23 Unknown Rx fluticasone fur. 200 mcg-umeclid 1 ea inhalation QDAY #3 ea 02/14/24 Unknown Rx 62.5 mcg-vilant 25 mcg inhalat.powder (Trelegy Ellipta) fluticasone propionate 50 2 spray intranasal DAILY #3 ea 02/14/24 Unknown Rx mcg/actuation nasal spray,suspension atenolol 50 mg tablet 50 mg PO DAILY #90 tabs 02/19/24 Unknown Rx pravastatin 40 mg tablet 40 mg PO QHS #90 tabs 02/19/24 Unknown Rx pantoprazole 40 mg tablet,delayed 40 mg PO BID #60 tabs 06/01/24 Unknown Rx release trazodone 100 mg tablet 100 mg PO QHS #90 tabs 10/19/24 Unknown Rx dapsone 100 mg tablet 100 mg PO QDAY #30 tabs 10/20/24 Unknown Rx B-complex with vitamin C 1 cap PO QDAY 11/09/24 Unknown History ascorbic acid (vitamin C) 1,000 mg 1 g PO QDAY 12/10/24 Unknown History capsule ipratropium 0.5 mg-albuterol 3 mg 3 ml inhalation DAILY shortness of 12/30/24 Unknown History (2.5 mg base)/3 mL nebulization breath or wheezing soln Allergy/AdvReac Type Severity Reaction Status Date / Time aspirin Allergy Severe bleeding Verified 12/30/24 13:24 Family History Mother Myocardial infarction, Onset Age: 49 Depression Father Hypertension CVA (cerebral vascular accident), Onset Age: 49 Sister Thyroid disorder Uncle ulcers Surgical History History of transurethral resection of prostate (06/03/24) History of bronchoscopy History of esophagogastroduodenoscopy (EGD) Hx of colonoscopy History of thoracic surgery Social History household members: spouse and significant other Smoking Status: Former smoker quit date: 07/14/21 alcohol intake: never substance use type: does not use what type of physical activity do you participate in: other details: yard work, house work Audit: Pertinent Findings Pertinent Findings EKG Perinent findings: December 03, 2023. Sinus bradycardia at 57 bpm. Right axis deviation. Nonspecific ST abnormalities. Stress test pertinent findings: October 15, 2023. No areas of reversibility are noted to suggest ischemia and no previous infarct is noted. Normal stress test. Echo (EF%) pertinent findings: December 16, 2023. Ejection fraction is 55%. PA systolic pressure is 48 mmHg. Severely dilated aortic root. Measuring 5.9 cm at the coronary sinus. Dilation has progressed from previous exam. Consult pertinent findings: December 10, 2024. Kaden ROSE. 1. Orthostatic hypotension-stable. Continue atenolol. Monitor blood pressures at home as he has been doing. 2. Aortic root dilation-echo on January 04 showed root to be 5.[address] in December 2023 showed the ascending aorta at 3.9 cm and ascending thoracic aorta at 2.9 cm. No evidence of dissection was noted. 3. COPD -currently on oxygen. He was encouraged to continue to follow with the pulmonary team. Recommendation Anesthesia Recommendation Anesthesia recommendation: OPTIMIZED for anesthesia
[2025-01-04] VITALS (7 sets, daily range): BP systolic 105–132; BP diastolic 54–63; PULSE 47–58; RESP 14–18; TEMP 36.1–36.8; O2SAT 98–100; BMI 26.2
--- NOTE | 2025-01-04 06:29 | PRE.ANES_ITS ---
ASA Classification* ASA Classification ASA Classification: 3 Assessment & Plan Anesthesia* Anesthesia Assessment Anesthesia Assessment: Discussed sedation and/or anesthesia options, risks, benefits, and alternatives with patient/parents/legal guardian/POA. Questions invited. The patient/parents/legal guardian/POA seems to understand and agrees to proceed with anesthesia plan. Reviewed the physical assessment, medical history, allergy history and patient home medications list prior to surgery/procedure/anesthetic and documented any changes. Performed airway and anesthesia risk assessments. Anesthesia Type Anesthesia Type: MAC History Source History Obtained from:: Patient and Chart Anesthesia Focused Assessment* Temperature: 98.3 F Pulse Rate: 58 Blood Pressure: 105/57 Respiratory Rate: 18 Pulse Ox: 100 Oxygen Delivery Method: Nasal Cannula Oxygen Flow Rate (L/min): 3 Airway Assessment Mouth opens: >3 cm Mallampati Score: I Teeth Condition: Dentures (Upper full dentures are out.) and Partial (Lower partials out.) Neck Range of motion (ROM): Limited ROM (Somewhat decreased extension) Focused Labs Anesthesia Preop lab: CBC WBC 8.1 K/mm3 (4.4-11.0) 11/27/24 13:05 11/27/24 RBC 3.29 M/mm3 (4.6-6.2) L 11/27/24 13:05 11/27/24 Hgb 11.3 g/dL (13.0-16.5) L 11/27/24 13:05 5 Hct 36.2 % (40-54) L 11/27/24 13:05 11/27/24 Plt Count 263 K/mm3 (150-450) 11/27/24 13:05 11/27/24 CHEMISTRY Potassium 4.4 mmol/L (3.5-5.1) 11/27/24 13:05 11/27/24 Sodium 137 mmol/L (136-145) 11/27/24 13:05 11/27/24 Magnesium 2.4 mg/dL (1.6-2.6) 12/03/23 19:44 12/03/23 Phosphorus 1.3 mg/dL (2.5-4.9) L 12/08/23 04:00 12/08/23 BUN 14 mg/dL (7-18) 11/27/24 13:05 11/27/24 Creatinine 1.35 mg/dL (0.70-1.30) H 11/27/24 13:05 Glucose 102 mg/dL (74-106) 11/27/24 13:05 11/27/24 POC Glucose 113 mg/dL (74-106) H 12/04/23 11:21 12/04/23 TSH 1.81 uIU/mL (0.358-3.74) 01/13/24 14:27 COAG PT 15.8 SECONDS (11.7-14.9) H 05/19/21 05:20 08/04/03 Pre-Assessment Diagnosis/Proposed Procedure Planned Operative Procedure(s): EGD , Colonoscopy Anesthesia History Anesthesia History - map and chart mounter: Anesthesia History - map and chart mounter Hx Hospitalization No 12/30/24 13:26 Any Problems With Anesthesia No 12/30/24 13:26 Cholinesterase deficiency No 12/30/24 13:26 You/Your Family Experience No 12/30/24 13:26 fever (hyperthermia) with Relationship Recent Exposure to Contagious No 01/04/25 05:53 Disease Does patient have nerve No 12/30/24 13:26 stimulator Patient instructed to have device shut off --Does patient have Pacemaker No 01/04/25 05:53 or ICD? When Was Last Pacemaker Check QUESTION #4 FULL TEXT: You/Your Family Experience fever (hyperthermia) with Anesthesia Last Oral Intake Last Oral intake: Last Oral Intake NPO since 02:30 01/04/25 05:53 Meds taken in AM with sips of Yes 01/04/25 05:53 water? Meds patient instructed to see medlist 01/04/25 05:53 take am of surgery Any additional information?: Yes NPO since: 02:30 ( patient finished patient finished prep at 2:30 AM) PONV PONV - map and chart mounter: PONV - map and chart mounter Female No 12/30/24 13:26 HX of Motion Sickness No 12/30/24 13:26 HX of N/V After Surgery No 12/30/24 13:26 Non-Smoker Yes 12/30/24 13:26 Duration of Surgery greater No 12/30/24 13:26 than 60 minutes Number of Risk Factors 1 12/30/24 13:26 PONV Score Low Risk 12/30/24 13:26 Height & Weight Height & Weight: Anesthesia: Height & Weight Height 6 ft 01/04/25 05:53 Weight: 87.8 kg 01/04/25 05:53 Body Mass Index (BMI) 26.2 01/04/25 05:53 Respiratory Assessment Respiratory Assessment - map and chart mounter: Respiratory Tract Infection Hx - map and chart mounter Hx Respiratory Tract Infection No 12/30/24 13:26 STOP Sleep Apnea STOP Sleep Apnea - map and chart mounter: STOP Sleep Apnea - map and chart mounter Hx Hypertension Yes 12/30/24 13:26 Hx Sleep Apnea Yes 12/30/24 13:26 CPAP No 12/30/24 13:26 BIPAP Yes 12/30/24 13:26 Do you snore loudly (louder than talking or can be heard Do you often feel tired/ fatigued/ sleepy during daytime? Has anyone observed you stop breathing during sleep? STOP Results Positive 12/30/24 13:26 QUESTION #5 FULL TEXT : Do you snore loudly (louder than talking or can be heard through closed doors)? Tobacco Use History Tobacco Use History - map and chart mounter: Tobacco Use History - map and chart mounter Tobacco Use Smoking Status Former smoker 12/30/24 13:26 Hx Tobacco Use Yes 12/30/24 13:26 Years Smoking Packs Smoked per Day Smoking Cessation Date was Yes - quit smoking within 15 12/30/24 13:26 within the last 15 years years Hx Smoking Cessation Date 09/13/22 12/30/24 13:26 Hx Smoking Cessation No 12/30/24 13:26 Counseling Hematologic Medial History Hematologic Hx - map and chart mounter: Hematologic Medical Hx - buyer planner Hx of Blood Transfusion Yes 12/30/24 13:26 Hx of Transfusion in last 3 No 12/30/24 13:26 Months Date of Last Transfusion (if within last 3 months) Ever experience any problems No 12/30/24 13:26 with transfusion(s)? Specify any problems Hx of Preganancy in last 3 N/A 12/30/24 13:26 Months Nurse Filling Out Transfusion NBUCHER 12/30/24 13:26 & Questions: Date: 12/30/24 12/30/24 13:26 Time: 13:12/30/24 13:26 Patient unable to answer at this time (ie. confused, unrespo /Reproduction History /Reproductive History - map and chart mounter: /Reproductive Hx- map and chart mounter Hx Now Gestational Age (in weeks): EDC: Hx Hx Para Hx Section SAB No 12/30/24 13:26 [facility] Medical History BiPAP (biphasic positive airway pressure) dependence Sleep apnea Bruising Enlarged prostate Anemia Esophageal ulcer with bleeding Drop foot gait Wears glasses Wears dentures Forgetfulness Arthritis High cholesterol Back pain Difficulty chewing History of hiatal hernia History of GI bleed Former smoker On home oxygen therapy COPD (chronic obstructive pulmonary disease) Shortness of breath on exertion Cardiology follow-up encounter History of stress test History of echocardiogram Overdose Severe protein-calorie malnutrition Pneumonia Syncope Depression Neuropathy Community acquired pneumonia GERD (gastroesophageal reflux disease) IBS (irritable bowel syndrome) History of stomach ulcers Arthritis Chronic pain Hyperlipidemia Hypertension Home Medications ?Medication ?Instructions ?Recorded ?Last Taken ?Type multivitamin 1 tab PO DAILY supplement 01/01/24 History glucosamine-chondroitin 250 mg-200 2 tab PO DAILY 11/0501/01/24 History mg tablet (Osteo Bi-Flex) docusate sodium 100 mg capsule 100 mg PO DAILY Constip ation 08/01/23 01/01/24 History (Colace) albuterol sulfate 90 mcg/actuation See Rx Instructions .Route 10/22/23 Unknown Rx aerosol inhaler .COMPLEX #8.5 grams rollator walker with seat #1 ea 11/05/23 Unknown Rx fluticasone fur. 200 mcg-umeclid 1 ea inhalation QDAY #3 ea 02/14/24 01/04/25 Rx 62.5 mcg-vilant 25 mcg inhalat.powder (Trelegy Ellipta) fluticasone propionate 50 2 spray intranasal DAILY #3 ea 02/14/24 Unknown Rx mcg/actuation nasal spray,suspension atenolol 50 mg tablet 50 mg PO DAILY #90 tabs 06/0601/04/25 Rx pravastatin 40 mg tablet 40 mg PO QHS #90 tabs Unknown Rx pantoprazole 40 mg tablet,delayed 40 mg PO BID #60 tab s 06/01/24 01/04/25 Rx release trazodone 100 mg tablet 100 mg PO QHS #90 tabs 10/19 Unknown Rx dapsone 100 mg tablet 100 mg PO QDAY #30 tabs 05/07 Unknown Rx B-complex with vitamin C 1 cap PO QDAY 11/09/24 Unkno wn History ascorbic acid (vitamin C) 1,000 mg 1 g PO QDAY 5 Unknown History capsule ipratropium 0.5 mg-albuterol 3 mg 3 ml inhalation COURTNEY Y shortness of 12/30/24 Unknown History (2.5 mg base)/3 mL nebulization breath or wheezing soln Allergy/AdvReac Type Severity Reaction Status Date / Time aspirin Allergy Severe bleeding Verified 01/04/25 05:45 Family History Mother Myocardial infarction, Onset Age: 49 Depression Father Hypertension CVA (cerebral vascular accident), Onset Age: 49 Sister Thyroid disorder Uncle ulcers Surgical History History of transurethral resection of prostate (06/03/24) History of bronchoscopy History of esophagogastroduodenoscopy (EGD) Hx of colonoscopy History of thoracic surgery Social History household members: spouse and significant other Smoking Status: Former smoker quit date: 07/14/21 alcohol intake: never substance use type: does not use what type of physical activity do you participate in: other details: yard work, house work Review of Systems (Anesthesia) ROS Narrative System reviewed and no additional complaints, except as documented.
--- NOTE | 2025-01-04 06:30 | COLBX_PTH ---
PATIENT: ELIGIO ALBRECHT LOC: EN U#:[id number] AGE/SX: 74/M ROOM: RE01/04/[address]: Dr. Ranjan Muhammad DO : 1950 BED: DIS: 01/04/2025 SPEC #: [id number] RECD: 01/04/25 13:18 STATUS: MARCELINO REGarrison #: [id number] [place]AS[place]: 01/04/25 06:[address]: Ranjan Muhammad DEPT: SURGICAL PATHOLOGY RECD BY: Oneal Parrish ENTERED: 01/04/25 13:19 SP TYPE: COLON BX OTHR DR: Dr. Miguel Stewart DO Tissues: A - Pyloric sphincter B - Duodenum, NOS C - Esophagus, NOS D - COLON BIOPSY E - COLON BIOPSY Procedures: Immunohistochemical Stains Surgery Specimen Level IV HEADER OPERATION: Colonoscopy with polypectomy and biopsy PRE-OP DIAGNOSIS: Celiac disease TISSUE SUBMITTED: A- Pyloric sphincter biopsy, B- Duodenum biopsy, C- Distal esophagus biopsy, D- Cecal polyp, E- Ileocecal valve biopsy MICROSCOPIC DIAGNOSIS A, PYLORIC SPHINCTER, PYLORIC SPHINCTER BIOPSY: -Oxyntic to intestinal mucosa with no histopathologic abnormality -An immunohistochemical stain for H. pylori organisms with appropriate controls is negativeB, DUODENUM, DUODENUM BIOPSY: -Small bowel mucosa with no histopathologic abnormalityC, DISTAL ESOPHAGUS, DISTAL ESOPHAGUS BIOPSY: -Squamous and glandular mucosa with intestinal metaplasiaD, CECAL POLYP, CECUM BIOPSY: -Tubular adenoma with cryptitis and active colitis E, ILEOCECAL VALVE, ILEOCECAL VALVE BIOPSY: -Colonic mucosa with erosion and granulation tissue; no definitive dysplasia identifiedIlia Chang MD, 01/07/25 MICROSCOPIC DESCRIPTION Slides are reviewed. GROSS DESCRIPTION Specimen A. Received in formalin labeled Eligio Albrecht, and designated pyloric sphincter biopsy, are two james tissue fragments aggregating to 0.7 x 0.5 x 0.2 cm. Totally submitted in one cassette.Specimen B. Received in formalin labeled Eligio Albrecht, and designated duodenum biopsy, are multiple james tissue fragments aggregating to 0.7 x 0.6 x 0.2 cm. Totally submitted in one cassette.Specimen C. Received in formalin labeled Eligio Albrecht, and designated distal esophagus biopsy, are two james tissue fragments aggregating to 0.4 x 0.3 x 0.2 cm. Totally submitted in one cassette.Specimen D. Received in formalin labeled Eligio Albrecht, and designated cecal polyp, are multiple james tissue fragments and vegetable matter aggregating to 4.0 x 3.5 x 0.5 cm. Totally submitted in four cassettes.Specimen E. Received in formalin labeled Eligio Albrecht, and designated biopsy ileocecal valve, are multiple james tissue fragments and vegetable matter aggregating to 1.0 x 0.8 x 0.2 cm. Totally submitted in one cassette. KATHARINE 01/04/2025 CPT:55763w2,32082, TC:1,2
--- NOTE | 2025-01-04 06:30 | COLBX_PTH ---
PATIENT: ELIGIO ALBRECHT LOC: EN U#:[id number] AGE/SX: 74/M ROOM: RE01/04/[address]: Dr. Ranjan Muhammad DO : 1950 BED: DIS: 01/04/2025 SPEC #: [id number] RECD: 01/04/25 13:18 STATUS: MARCELION REGarrison #: [id number] NYASIA: 01/04/25 06:[address]: Ranjan Muhammad DEPT: SURGICAL PATHOLOGY RECD BY: Oneal Parrish ENTERED: 01/04/25 13:19 SP TYPE: COLON BX OTHR DR: Dr. Miguel Stewart DO Tissues: A - Pyloric sphincter B - Duodenum, NOS C - Esophagus, NOS D - COLON BIOPSY E - COLON BIOPSY Procedures: Immunohistochemical Stains Surgery Specimen Level IV HEADER OPERATION: Colonoscopy with polypectomy and biopsy PRE-OP DIAGNOSIS: Celiac disease TISSUE SUBMITTED: A- Pyloric sphincter biopsy, B- Duodenum biopsy, C- Distal esophagus biopsy, D- Cecal polyp, E- Ileocecal valve biopsy MICROSCOPIC DIAGNOSIS A, PYLORIC SPHINCTER, PYLORIC SPHINCTER BIOPSY: -Oxyntic to intestinal mucosa with no histopathologic abnormality -An immunohistochemical stain for H. pylori organisms with appropriate controls is negativeB, DUODENUM, DUODENUM BIOPSY: -Small bowel mucosa with no histopathologic abnormalityC, DISTAL ESOPHAGUS, DISTAL ESOPHAGUS BIOPSY: -Squamous and glandular mucosa with intestinal metaplasiaD, CECAL POLYP, CECUM BIOPSY: -Tubular adenoma with cryptitis consistent with active colitis E, ILEOCECAL VALVE, ILEOCECAL VALVE BIOPSY: -Colonic mucosa with erosion and granulation tissue; no definitive dysplasia identifiedJ Charlene WILCOX, 01/07/25 MICROSCOPIC DESCRIPTION Slides are reviewed. These tests were developed and their performance characteristics determined by [facility]. They may not have been cleared or approved by the [place]. Food and Drug Administration. The FDA has determined that such clearance or approval is not necessary. The above immunohistochemical/dualISH markers are ordered and reviewed by the Pathologist. GROSS DESCRIPTION Specimen A. Received in formalin labeled Eligio Albrecht, and designated pyloric sphincter biopsy, are two james tissue fragments aggregating to 0.7 x 0.5 x 0.2 cm. Totally submitted in one cassette.Specimen B. Received in formalin labeled Eligio Albrecht, and designated duodenum biopsy, are multiple james tissue fragments aggregating to 0.7 x 0.6 x 0.2 cm. Totally submitted in one cassette.Specimen C. Received in formalin labeled Eligio Albrecht, and designated distal esophagus biopsy, are two james tissue fragments aggregating to 0.4 x 0.3 x 0.2 cm. Totally submitted in one cassette.Specimen D. Received in formalin labeled Eligio Albrecht, and designated cecal polyp, are multiple james tissue fragments and vegetable matter aggregating to 4.0 x 3.5 x 0.5 cm. Totally submitted in four cassettes.Specimen E. Received in formalin labeled Eligio Albrecht, and designated biopsy ileocecal valve, are multiple james tissue fragments and vegetable matter aggregating to 1.0 x 0.8 x 0.2 cm. Totally submitted in one cassette. KATHARINE 01/04/2025 CPT:[id number], TC:1,2
--- NOTE | 2025-01-04 06:51 | HP.PCM_ITS ---
HPI - General General Date of Admission: 01/04/25 Date of Service: 01/04/25 Chief Complaint: Celiac disease HPI Narrative PEDRO ALBRECHT, is a 74 M who presentsDENMACARIO ALBRECHT, is a 74 M who presents to the office today for November 2023 Surgery unk date?subtotal gastrectomy; likely PUD refractory to treatment versus malignancy WSA workup for weight loss and LLQ pain ?EGD/colonoscopy WSA 10.09.23?EGD hemorrhagic gastritis. H.pylori neg ? Colonoscopy without visual abnormality. No path changes *[facility] hospitalization 12.03.23-12.11.23 for management of NELSON, COPD, presumptive pneumonia, anemia and chronic conditions HTN, HLD, GERD. ?CT abd/pel without contrast 12.03.23?mild hydronephrosis; colonic fecal burden; aortic and branch calcified plaque ?Stool 12.07.23?occult + ?EGD 12.09.23?short-segment Car?s, metaplasia +; medium hiatal hernia; oozing cratered gastric ulcer, metaplasia +; pyloric deformity; duodenitis. H.pylori neg ?GET 2..24?24.31 minutes (12-56) ?Biochemical?iron sat, ferritin, CPK, folate, gastrin, PTH, GAME, HOMAR, ANCA, FRANCISCA comp, anti-parietal cell ab, intrinsic factor WNL ? ESR H34, CRP H32.4, iron L40, TIBC L180, B12 H1383, procalcitonin H0.14, chromogranin A H681, ttg H7, IBD (apANCA, Bobbi) hgb 3..24 8.2 APRIL 2024 Friend 73-year-old male with past medical history as outlined was admitted to the ED on 12/03/2023 with a complaint of inability to urinate for 48 hours prior to admission. He had assisted suprapubic discomfort but denied any fever or chills. He had confusion and agitation also and family felt it might be due to the urinary retention so he was brought into the ED. Rocha catheter inserted immediately drained 2 L of urine in the ED. Labs done was significant for potassium was 8.4 which was slightly hemolyzed, bicarb of 19 and anion gap of 10 with creatinine of 8.75 and calcium of 11.6. CBC was largely unremarkable apart from hemoglobin of 9.5. Chest imaging showed lower left lobe airspace disease. CT of the abdomen and pelvis showed bilateral nonobstructing nephroliths with possible mild left hydronephrosis with no definitive radiodensity ureterolith. He was admitted and managed for postobstructive NELSON in the setting of urinary retention. He had Rocha catheter inserted. He was started on Flomax. He was initially admitted to the ICU on account of hyperkalemia. He was given Kayexalate and creatinine gradually trended down. Nephrology was consulted. His hospital course was complicated with acute on chronic anemia requiring blood transfusions. Stool for occult blood was positive and iron panel showed iron deficiency anemia. He had EGD which showed he had a bleeding peptic ulcer. He was placed on p.o. pantoprazole 40 mg twice daily. He is doing alot better, but he is still having weight loss. Recommend: -Autoimmune work up for weight loss and macrocytic anemia (2) Macrocytic anemia: Status: Acute Plan: I suspect there is a macrocytic anemia secondary to celiac disease and or Crohn's disease inhibiting absorption of B12 and folic acid along with decreasing formation of intrinsic factor because of the association of celiac disease with autoimmune gastritis (3) Celiac disease: Status: Acute Plan: Biochemical workup is positive for celiac sprue. He was given documentation and explained the need for gluten-free diet including not eating oats, barley, rye and wheat products is much as possible. Depending on how he does we may need to refer him to nutrition services. (4) Exocrine pancreatic insufficiency: Status: Acute Plan: His stool elastase was low consistent with possible celiac disease induced small bacterial overgrowth of celiac disease induced exocrine pancreatic insufficiency. Since he is doing well on budesonide I will not start him on pancreatic enzymes at this time. (5) Crohn's disease: Status: Acute Plan: He has multiple biomarkers positive for Crohn's disease with diarrhea and he is very responsive to budesonide. I did not perform a colonoscopy with biopsies of his terminal ileum because he already had a colonoscopy by an outside physician. Since he is doing very well on the budesonide we will continue that for now. He has gained approximately 15 pounds he is eating better and is having no diarrhea. Recommendations: -Continue 3 mg of budesonide per day -Recheck ESR and CRP -Recheck fecal calprotectin and stool elastase -Consider bone scan due to his history of COPD and need for budesonide therapy -Consider CT enterography -Check B12, folic acid, antiintrinsic factor antibody, antiparietal cell antibody, amylase and lipase CBC: 10/20/2024 HGB 13.1, MCV 105 CMP: 02/05/2024 transaminases NL CRP: 01/13/2024 21 12/09/2023 32 Fecal Calprotectin: 01/15/2024 207(H) Fecal Elastase: 11/13/2024 782 NL 01/15/2024 166 (L) FRANCISCA: 11/09/2024 NL pANCA: 11/09/2024 NL 01/12/2034 NL 12/10/2023 NL Bobbi: 01/13/2024 96(H) 12/10/2023 78(H) Total IgA: 12/10/2023 NL TTG IgA: 12/10/2023 normal TTG Ig12/10/2023 7(H) Endomysial IgA: 12/10/23 negative Fe: 01/13/2024 33(L) B12: 12/03/2023 1383(H) Folic Acid: 12/03/2023 52 normal Anti-Parietal Cell Ab: 12/10/2023 normal Haptoglobin: 01/13/2024 normal Anti-Intrinsic Factor AB: 12/10/2023 negative Gastrin: 12/10/2023 NL Chromogranin A: 12/10/2023 681 (H) CTE: 02/21/2024 Diffuse fatty infiltration of the liver, scattered simple hepatic cysts, Borderline distended fluid-filled small bowel loops throughout the abdomen and pelvis consistent with ileus/early obstruction. Transition point is not identified. This is most likely due to retained stool throughout the entirety of the colon. CAPSULE: 01/22/2024 Areas of focal ulceration seen in the SB. Abnormality seen in the SB starting at 3h 19m concerning for stricture or volvulus. Diverticulum seen at 4h 26m. COLON: 12/10/2022 (Harish) - The entire examined colon is normal on direct and retroflexion views. - No specimens collected. EGD: 01/02/2024 (Friend) Car's neg. for dysplasia - Z-line irregular. Biopsied. - Betzy-Persaud tear. - Bile gastritis. - A pyloroplasty was found, characterized by friable mucosa, congestion, edema and erythema. - No gross lesions in the duodenal bulb. EGD: 12/09/2023 (Friend) Car's w/o dysplasia, gastric metaplasia (neg. H. pylori), negative for celiac - Esophageal mucosal changes consistent with short-segment Car's esophagus. Biopsied. - Medium-sized hiatal hernia. - Oozing gastric ulcer with a visible vessel. Injected. Treated with a heater probe. - Acquired deformity in the pylorus. - Duodenitis. Biopsied. MEDS: 02/10/2024 started Budesonide 9mg QD - reports he discontinued a few weeks ago --seen in office today with his - he questions his diagnosis of Crohn's and celiac - questioning his need for medication use and diet which he reports he is not following Dr. Stewart stopped Budesonide and started him on Dapsone - stopped the Budesonide a couple weeks ago - since off the Budesonide BLE swelling has resolved - weight has leveled off - appetite is stable - denies any pain - his bowel habits are stable - denies any bleeding or abdominal pain - Last Colonoscopy by outside MD - he reports this was negative - denies any h/o colon polyps - denies any family colon CA - denies any family h/o IBD - states he never had a diagnosis or celiac disease or Crohn's prior to coming to [facility] - he is having 1-2 BM a day - denies any diarrhea - denies any pain B: raisin bran L: peanut butter crackers D: protein,vegetable, starch - he is eating gluten free pasta - redoing a sleep study tonight - redoing a CT coming up 11/20 to reassess pulmonary nodules - he was taking Tums frequently - Quit smoking 5 years ago - IBU use was daily prior to November 2023 [facility] Medical History BiPAP (biphasic positive airway pressure) dependence Sleep apnea Bruising Enlarged prostate Anemia Esophageal ulcer with bleeding Drop foot gait Wears glasses Wears dentures Forgetfulness Arthritis High cholesterol Back pain Difficulty chewing History of hiatal hernia History of GI bleed Former smoker On home oxygen therapy COPD (chronic obstructive pulmonary disease) Shortness of breath on exertion Cardiology follow-up encounter History of stress test History of echocardiogram Overdose Severe protein-calorie malnutrition Pneumonia Syncope Depression Neuropathy Community acquired pneumonia GERD (gastroesophageal reflux disease) IBS (irritable bowel syndrome) History of stomach ulcers Arthritis Chronic pain Hyperlipidemia Hypertension Home Medications ?Medication ?Instructions ?Recorded ?Last Taken ?Type multivitamin 1 tab PO DAILY supplement 01/01/24 History glucosamine-chondroitin 250 mg-200 2 tab PO DAILY 11/0501/01/24 History mg tablet (Osteo Bi-Flex) docusate sodium 100 mg capsule 100 mg PO DAILY Constip ation 08/01/23 01/01/24 History (Colace) albuterol sulfate 90 mcg/actuation See Rx Instructions .Route 10/22/23 Unknown Rx aerosol inhaler .COMPLEX #8.5 grams rollator walker with seat #1 ea 11/05/23 Unknown Rx fluticasone fur. 200 mcg-umeclid 1 ea inhalation QDAY #3 ea 02/14/24 01/04/25 Rx 62.5 mcg-vilant 25 mcg inhalat.powder (Trelegy Ellipta) fluticasone propionate 50 2 spray intranasal DAILY #3 ea 02/14/24 Unknown Rx mcg/actuation nasal spray,suspension atenolol 50 mg tablet 50 mg PO DAILY #90 tabs 05/0 06/0601/04/25 Rx pravastatin 40 mg tablet 40 mg PO QHS #90 tabs Unknown Rx pantoprazole 40 mg tablet,delayed 40 mg PO BID #60 tab s 06/01/24 01/04/25 Rx release trazodone 100 mg tablet 100 mg PO QHS #90 tabs 10/19 Unknown Rx dapsone 100 mg tablet 100 mg PO QDAY #30 tabs 05/07 Unknown Rx B-complex with vitamin C 1 cap PO QDAY 11/09/24 Unkno wn History ascorbic acid (vitamin C) 1,000 mg 1 g PO QDAY 5 Unknown History capsule ipratropium 0.5 mg-albuterol 3 mg 3 ml inhalation COURTNEY Y shortness of 12/30/24 Unknown History (2.5 mg base)/3 mL nebulization breath or wheezing soln Allergy/AdvReac Type Severity Reaction Status Date / Time aspirin Allergy Severe bleeding Verified 01/04/25 05:45 Family History Mother Myocardial infarction, Onset Age: 49 Depression Father Hypertension CVA (cerebral vascular accident), Onset Age: 49 Sister Thyroid disorder Uncle ulcers Surgical History History of transurethral resection of prostate (06/03/24) History of bronchoscopy History of esophagogastroduodenoscopy (EGD) Hx of colonoscopy History of thoracic surgery Social History household members: spouse and significant other Smoking Status: Former smoker quit date: 07/14/21 alcohol intake: never substance use type: does not use what type of physical activity do you participate in: other details: yard work, house work ROS ROS Narrative 10 systems were reviewed with pertinent positives as noted in the HPI above. Vital Signs Vital Signs Vital Signs: 01/04/25 05:53 01/04/25 05:53 01/04/25 06:35 Temperature 98.3 F 98.3 F Temperature Source Temporal Pulse Rate 58 L 58 L Respiratory Rate 18 18 Respiratory Pattern Normal Blood Pressure 105/57 L 105/57 L Blood Pressure Mean 73 Blood Pressure Source Monitor Blood Pressure Position Semi-Fowlers Blood Pressure Location Left Arm Pulse Ox 100 100 Oxygen Delivery Method Nasal Cannula Nasal Cannula Oxygen Flow Rate (L/min) 3 3 Weight Weight: 193 lb 9.054 oz Body Mass Index (BMI) 26.2 Physical Exam Const alert, oriented x3, no apparent distress and healthy appearing General Appearance: cooperative GI normal to inspection, nondistended, normoactive bowel sounds, soft to palpation, non-tender and non-distended Percussion: normal to percussion Rectal Exam: deferred Assessment & Plan Assessment/Plan (1) Celiac disease: PLAN: Assessment and Plan Assessment and Plan (1) GERD (gastroesophageal reflux disease): Status: Chronic Qualifiers: Esophagitis presence: without esophagitis Qualified Code(s): K21.9 - Gastro-esophageal reflux disease without esophagitis Comment: CONTROLLED WITH MED (2) Macrocytic anemia: Status: Acute Comment: See 11/09/2023 GI progress note (3) Celiac disease: Status: Acute Comment: See 11/09/2023 GI progress note (4) Crohn's disease: Status: Acute Comment: See 11/09/2023 GI progress note Orders: Orders Calprotectin, Stool 11/13/24 D53.9 - Nutritional anemia, unspecified, K21.9 - Gastro-esophageal reflux disease without esophagitis, K50.90 - Crohn's disease, unspecified, without complications, K90.0 - Celiac disease Pancreatic Elastase, Fecal 11/13/24 D53.9 - Nutritional anemia, unspecified, K21.9 - Gastro-esophageal reflux disease without esophagitis, K50.90 - Crohn's disease, unspecified, without complications, K90.0 - Celiac disease Plan 74y/o male presents for follow-up of celiac sprue, macrocytic anemia and Crohn's disease. He was last seen by Dr. Muhammad April 2024 who recommended autoimmune work-up for macrocytic anemia which was thought to be secondary to celiac disease and or Crohn's disease inhibiting absorption resulting in autoimmune gastritis. Notes indicate his biochemical work-up for celiac sprue was previously positive and also indicate he had multiple biomarkers for Crohn's. Last OV note also indicates he had a low fecal elastase consistent with possible celiac induced SIBO of celiac induced EPI. Patient and are present for visit today and are questioning the prior diagnosis of Celiac Disease and Crohn's Disease. In terms of macrocytic anemia: Anti-parietal Cell Ab, Anti-Intrinsic Factor Ab were both negative 12/10/2023 which suggests autoimmune gastritis/pernicious anemia less likely. B12 was elevated to 1323 and folic acid was normal on 12/03/2023. Gastric biopsies were revealing for gastric metaplasia not atrophic gastritis. Therefor, it is unlikely he has macrocytic anemia secondary to B12 deficiency. He is taking Dapsone which can cause macrocytic anemia, although I do not believe he was on this a year ago. If macrocytosis persists it would be reasonable to recheck a B12, folate, liver panel and possibly retic count and peripheral smear. In terms of Fe deficiency anemia: EGD revealed bleeding gastric ulcers, negative duodenal biopsy and negative for H. pylori. Capsule endoscopy revealed focal area of ulceration in the SB. He reports he was taking IBU daily prior to admission which could cause both gastric and SB ulcerations, leading to Fe deficiency anemia. Previously high Chromogranin A raises the suspicion for NET, although PPI use can also cause elevation. Fe deficiency anemia was likely secondary to GIB secondary to gastric ulcers secondary to chronic NSAID use. He should avoid use of non-steroidal medications in the future. In terms of celiac disease: TTG IgA, Total IgA and Endomysial IgA were all normal. TTG IgG was minutely elevated at 7. With only a mildly elevated TTG IgG and negative duodenal biopsies, these findings are not suggestive of celiac disease. He is not following a GFD. It is reasonable to repeat serologies at his time, although, it should be noted a minutely elevated TTG IgG alone with negative duodenal biopsies is not sufficient for a diagnosis of celiac disease. In terms of Crohn's disease: An elevated Bobbi and SB ulceration raises the suspicion for Crohn's. CRP was elevated although this is not specific to the gut and due to multiple other comorbidities at time of elevation (NELSON and pneumonia) either of these alone could of caused the CRP elevation. Fecal Calprotectin elevated at 207 adds to the suspicion of Crohn's; however, NSAID use and gastric ulcers may of both contributed to the diarrhea he was experiencing and elevated fecal calprotectin. He discontinued Budesonide a few weeks ago and has not had r ecurrent diarrhea and denies any ABD pain. Colonoscopy was negative in 2022 and he denies any family history of IBD. I will repeat the Fecal Calprotectin at this time. If the calprotectin is normal with absence of Fe deficiency (HGB 13.1, MCV 105 on 10/20/2024), I suspect the prior elevated CRP, fecal calprotectin and SB ulceration were possibly secondary to NSAID use and not Crohn's disease. If symptoms recur or if calprotectin is elevated it would be reasonable to revaluate for Crohn's (MRE, colonoscopy, CRP). Serologies including a Bobbi are not sufficient for a diagnosis of Crohn's disease. In terms of EPI: Fecal Elastase was mildly low (166) January 2024 when he was experiencing watery diarrhea. It was at this time he also had gastric ulcers secondary to NSAID enteropathy which can lead to malabsorption. This suggests the low fecal elastase was falsely low due to rapid stool transit and not a true EPI. Now that diarrhea has resolved, I will repeat the fecal elastase. If normal this further supports he does not have malabsorption secondary to EPI. In terms of Car's without dysplasia: ACG guidelines recommend the indefinite use of daily PPI to prevent the progression of Car's. I recommend a repeat EGD December 2026. ADDENDUM: 11/09/2024 TTG IgA, Total IgA and TTG IgG is normal and he is not on a GFD. Based on these lab findings and previously negative duodenal biopsies, he does not have celiac disease. Even if the HLA DQ2 and DQ8 yield a positive result, this means he has the genetic predisposition for celiac disease, but it does NOT confirm a diagnosis of celiac disease with absence of serologic and histologic evidence as these genetic markers are present in the general population. 11/13/2024 Fecal Elastase is normal. EPI secondary to malabsorption is not a factor. 11/13/2024 Fecal Calprotectin elevated to 220. Further evaluation to assess inflammation is indicated and will be discussed with patient.
--- NOTE | 2025-01-04 07:43 | OP.EGD_ITS ---
Patient Name: Eligio Mccabe Procedure Date: 01/04/2025 6:26 AM Date of : 1950 Age: 74 Procedure: Upper GI endoscopy Indications: Iron deficiency anemia, Functional Dyspepsia, Follow-up of Car's esophagus Providers: Ranjan Muhammad DO Referring MD: Miguel Stewart Medicines: Monitored Anesthesia Care Patient Profile: This is a 74 year old male. Refer to note in patient chart for documentation of history and physical. Patient has symptoms of chronic epigastric abdominal pain and chronic dyspepsia. Complications: No immediate complications. Procedure: Pre-Anesthesia Assessment: - Prior to the procedure, a History and Physical was performed, and patient medications and allergies were reviewed. The risks and benefits of the procedure and the sedation options and risks were discussed with the patient. All questions were answered and informed consent was obtained. Patient identification and proposed procedure were verified by the physician in the pre-procedure area. Mental Status Examination: alert and oriented. Airway Examination: normal oropharyngeal airway and neck mobility. Respiratory Examination: clear to auscultation. CV Examination: normal. Prophylactic Antibiotics: The patient does not require prophylactic antibiotics. Prior Anticoagulants: The patient has taken no anticoagulant or antiplatelet agents except for NSAID medication. ASA Grade Assessment: II - A patient with mild systemic disease. After reviewing the risks and benefits, the patient was deemed in satisfactory condition to undergo the procedure. The anesthesia plan was to use monitored anesthesia care (MAC). Immediately prior to administration of medications, the patient was re-assessed for adequacy to receive sedatives. The heart rate, respiratory rate, oxygen saturations, blood pressure, adequacy of pulmonary ventilation, and response to care were monitored throughout the procedure. The physical status of the patient was re-assessed after the procedure. After obtaining informed consent, the endoscope was passed under direct vision. Throughout the procedure, the patient's blood pressure, pulse, and oxygen saturations were monitored continuously. The Colonoscope was introduced through the mouth, and advanced to the third part of the duodenum. Small bowel enteroscopy was deemed necessary. The upper GI endoscopy was accomplished without difficulty. The patient tolerated the procedure well. Scope In: 7:02:49 AM Scope Out: 7:07:17 AM Total Procedure Duration Time 0 hours 4 minutes 28 seconds Findings: There were esophageal mucosal changes suspicious for short-segment Car's esophagus present in the lower third of the esophagus. The maximum longitudinal extent of these mucosal changes was 3 cm in length. Mucosa was biopsied with a cold forceps for histology in a targeted manner at intervals of 1 cm in the lower third of the esophagus. One specimen bottle was sent to pathology. Verification of patient identification for the specimen was done. Estimated blood loss was minimal. A medium-sized hiatal hernia was present. Localized moderate mucosal changes characterized by congestion and granularity were found at the pylorus. Biopsies were taken with a cold forceps for histology. Verification of patient identification for the specimen was done. Estimated blood loss was minimal. Patchy moderately erythematous mucosa without active bleeding and with no stigmata of bleeding was found in the duodenal bulb, in the first portion of the duodenum and in the third portion of the duodenum. Biopsies were taken with a cold forceps for histology. Verification of patient identification for the specimen was done. Estimated blood loss was minimal. Impression: - Esophageal mucosal changes suspicious for short-segment Car's esophagus. Biopsied. - Medium-sized hiatal hernia. - Congested and granular mucosa in the pylorus. Biopsied. - Erythematous duodenopathy. Biopsied. Recommendation: - Discharge patient to home. - Resume previous diet. - Continue present medications. - Await pathology results. Procedure Code(s): --- Professional --- 17741, Small intestinal endoscopy, enteroscopy beyond second portion of duodenum, not including ileum; with biopsy, single or multiple CPT copyright 2021 [employer]. All rights reserved. The codes documented in this report are preliminary and upon tire service supervisor review may be revised to meet current compliance requirements. Ranjan Muhammad DO 01/04/2025 7:42:07 AM This report has been signed electronically. Number of Addenda: 0 Note Initiated On: 01/04/2025 6:26 AM
--- NOTE | 2025-01-04 07:43 | OP.CCLET_ITS ---
01/04/2025 Miguel Stewart Re : Upper GI endoscopy procedure for Eligio Mccabe Dear Dr. Stewart This procedure was performed on Saturday, January 04, 2025. My impressions and recommendations are as follows: Impressions : - Esophageal mucosal changes suspicious for short-segment Car's esophagus. Biopsied. - Medium-sized hiatal hernia. - Congested and granular mucosa in the pylorus. Biopsied. - Erythematous duodenopathy. Biopsied. Recommendations : - Discharge patient to home. - Resume previous diet. - Continue present medications. - Await pathology results. My findings are described in the full procedure note, which is enclosed. If I can be of further assistance, please feel free to contact me at . Sincerely, Ranjan Muhammad, 01/04/2025 7:42:07 AM This report has been signed electronically.
--- NOTE | 2025-01-04 07:43 | PCM.POST.ANE ---
Anesthesia: Postop Eval I Current Vital Signs Temperature: 97 F Pulse Rate: 49 Blood Pressure: 109/55 Respiratory Rate: 14 Pulse Ox: 98 Oxygen Delivery Method: Nasal Cannula Oxygen Flow Rate (L/min): 3 Assessment Airway patent: Yes Spontaneous unlabored respirations: Yes Mental status: Asleep nausea: No Vomiting: No Anesthesia Complication: No Fluid Hydration Crystalloid volume administer (ml): 65 Total IV fluid infused: 65 Progress Note Anesthesia document: Postop Eval 1 completed: Yes
--- NOTE | 2025-01-04 07:47 | OP.COLON_ITS ---
Patient Name: Eligio Mccabe Procedure Date: 01/04/2025 7:07 AM Date of : 1950 Age: 74 Procedure: Colonoscopy Indications: Chronic diarrhea Providers: Ranjan Muhammad DO Referring MD: Miguel Stewart Medicines: Monitored Anesthesia Care Patient Profile: This is a 74 year old male. Refer to note in patient chart for documentation of history and physical. Patient has symptoms of chronic epigastric abdominal pain and chronic dyspepsia. Last Colonoscopy: within the past 3 years. Complications: No immediate complications. Procedure: Pre-Anesthesia Assessment: - Prior to the procedure, a History and Physical was performed, and patient medications and allergies were reviewed. The risks and benefits of the procedure and the sedation options and risks were discussed with the patient. All questions were answered and informed consent was obtained. Patient identification and proposed procedure were verified by the physician in the pre-procedure area. Mental Status Examination: alert and oriented. Airway Examination: normal oropharyngeal airway and neck mobility. Respiratory Examination: clear to auscultation. CV Examination: normal. Prophylactic Antibiotics: The patient does not require prophylactic antibiotics. Prior Anticoagulants: The patient has taken no anticoagulant or antiplatelet agents except for NSAID medication. ASA Grade Assessment: II - A patient with mild systemic disease. After reviewing the risks and benefits, the patient was deemed in satisfactory condition to undergo the procedure. The anesthesia plan was to use monitored anesthesia care (MAC). Immediately prior to administration of medications, the patient was re-assessed for adequacy to receive sedatives. The heart rate, respiratory rate, oxygen saturations, blood pressure, adequacy of pulmonary ventilation, and response to care were monitored throughout the procedure. The physical status of the patient was re-assessed after the procedure. After I obtained informed consent, the scope was passed under direct vision. Throughout the procedure, the patient's blood pressure, pulse, and oxygen saturations were monitored continuously. The Colonoscope was introduced through the anus and advanced to the terminal ileum. The colonoscopy was performed without difficulty. The patient tolerated the procedure well. The quality of the bowel preparation was fair. Scope In: 7:08:50 AM Scope Withdrawal Time 0 hours 20 minutes 39 seconds Scope Out: 7:33:27 AM Total Procedure Duration Time 0 hours 24 minutes 37 seconds Findings: The perianal and digital rectal examinations were normal. A 29 mm polyp was found in the ascending colon. The polyp was sessile. The polyp was removed with a hot snare. Resection and retrieval were complete. Verification of patient identification for the specimen was done. Estimated blood loss was minimal. A single (solitary) ten mm ulcer was found in the cecum and at the ileocecal valve. Oozing was present. Stigmata of recent bleeding were present. Biopsies were taken with a cold forceps for histology. Verification of patient identification for the specimen was done. Estimated blood loss was minimal. Coagulation for bleeding prevention using argon plasma at 0.5 liters/minute and 20 mendez was successful. Estimated blood loss was minimal. Multiple small and large-mouthed diverticula were found in the recto-sigmoid colon, sigmoid colon and descending colon. Stool was found in the sigmoid colon, in the transverse colon, at the hepatic flexure, in the ascending colon and in the cecum. Impression: - Preparation of the colon was fair. - One 29 mm polyp in the ascending colon, removed with a hot snare. Resected and retrieved. - A single (solitary) ulcer in the cecum and at the ileocecal valve. Biopsied. Treated with argon plasma coagulation (APC). - Diverticulosis in the recto-sigmoid colon, in the sigmoid colon and in the descending colon. - Stool in the sigmoid colon, in the transverse colon, at the hepatic flexure, in the ascending colon and in the cecum. Recommendation: - Discharge patient to home. - Resume previous diet. - Continue present medications. - Await pathology results. - Repeat colonoscopy in 3 months for surveillance. Procedure Code(s): --- Professional --- 59629, 59, Colonoscopy, flexible; with control of bleeding, any method 23207, Colonoscopy, flexible; with removal of tumor(s), polyp(s), or other lesion(s) by snare technique CPT copyright 2021 [employer]. All rights reserved. The codes documented in this report are preliminary and upon assembler dry cell and battery review may be revised to meet current compliance requirements. Ranjan Muhammad DO 01/04/2025 7:47:18 AM This report has been signed electronically. Number of Addenda: 0 Note Initiated On: 01/04/2025 7:07 AM
--- NOTE | 2025-01-04 07:48 | OP.CCLET_ITS ---
01/04/2025 Miguel Stewart Re : Colonoscopy procedure for Eligio Mccabe Dear Dr. Stewart This procedure was performed on Saturday, January 04, 2025. My impressions and recommendations are as follows: Impressions : - Preparation of the colon was fair. - One 29 mm polyp in the ascending colon, removed with a hot snare. Resected and retrieved. - A single (solitary) ulcer in the cecum and at the ileocecal valve. Biopsied. Treated with argon plasma coagulation (APC). - Diverticulosis in the recto-sigmoid colon, in the sigmoid colon and in the descending colon. - Stool in the sigmoid colon, in the transverse colon, at the hepatic flexure, in the ascending colon and in the cecum. Recommendations : - Discharge patient to home. - Resume previous diet. - Continue present medications. - Await pathology results. - Repeat colonoscopy in 3 months for surveillance. My findings are described in the full procedure note, which is enclosed. If I can be of further assistance, please feel free to contact me at . Sincerely, Ranjan Muhammad, 01/04/2025 7:47:18 AM This report has been signed electronically.
--- NOTE | 2025-01-04 10:13 | PCM.POSTANE2 ---
Anesthesia Postop Eval I Sum Postop Eval Completion status Anesthesia document: Postop Eval 1 completed: Yes Anesthesia Postop Eval I Summary Anesthesia Postop Eval I Summary: Anesthesia Postop Eval I: Assessment Summary Airway patent Yes 01/04/25 07:44 [email or web address] Spontaneous unlabored Yes 01/04/25 07:44 [email or web address] respirations Mental status Asleep 01/04/25 07:44 [email or web address] nausea No 01/04/25 07:44 [email or web address] Vomiting No 01/04/25 07:44 [email or web address] Anesthesia Postop Eval I: Fluid Summary Crystalloid volume administer 65 01/04/25 07:44 [email or web address] (ml) Colloids volume administered ( ml) Blood Product volume administered (ml) Total IV fluid infused 65 01/04/25 07:44 [email or web address] Anesthesia Postop Eval I: Summary Notes Anesthesia Complication No 01/04/25 07:44 [email or web address] Anesthesia Complication Comment: Post-operative progress note Anesthesia: Postop Eval II Evaluation Mental status: Awake Pain Level: 1 nausea: No Vomiting: No
== END 2025-01-04 08:13 | disposition home or self-care (01) ==
LOC: EN 05:25 → AC 05:26
PROVIDERS: PCP Family Medicine; Referring Provider Family Medicine; Visit Provider Internal Medicine Gastroenterology
PROC: 0DJD8ZZ Inspection of Lower Intestinal Tract, Via Natural or Artificial Opening Endoscopic (ICD-10-PCS; CPT 45378; principal; 2025-01-04 06:25)
DX: K90.0 Celiac disease (principal); K50.90 Crohn's disease, unspecified, without complications; J44.9 Chronic obstructive pulmonary disease, unspecified; K57.30 Diverticulosis of large intestine without perforation or abscess without bleeding; K44.9 Diaphragmatic hernia without obstruction or gangrene; E78.00 Pure hypercholesterolemia, unspecified; I10 Essential (primary) hypertension; Z87.891 Personal history of nicotine dependence; K21.9 Gastro-esophageal reflux disease without esophagitis; K86.81 Exocrine pancreatic insufficiency; Z79.51 Long term (current) use of inhaled steroids; Z79.899 Other long term (current) drug therapy; K22.89 Other specified disease of esophagus; K31.89 Other diseases of stomach and duodenum; K63.5 Polyp of colon; K63.3 Ulcer of intestine; D50.9 Iron deficiency anemia, unspecified; K22.70 Barrett's esophagus without dysplasia
CPT/HCPCS: 45385; 45380; 43239; 45382; 88305; 88342; A4216; J2405

== ENCOUNTER → 2025-01-07 | Outpatient (CLI) | payer MEDICARE, MEDICAID, SELFPAY | END | disposition home or self-care (01) | LOC: SL 12:13 | PROVIDERS: PCP Family Medicine; Referring Provider Nurse Practitioner Family; Visit Provider Nurse Practitioner Family | DX: Z00.00 Encounter for general adult medical examination without abnormal findings (principal) ==

== ENCOUNTER → 2025-01-26 | Outpatient (CLI) | payer MEDICARE, MEDICAID, SELFPAY ==
[2025-01-26 15:04] LABS: Absolute Lymphocyte Count 1.17 X10^3/uL (0.83-4.51); Absolute Neutrophil Count 5.6 X10^3/uL (2.0-7.7); Basophil# 0.11 X10^3/uL; Basophil% 1.4 % (0-1); Eosinophils% 7.4 % (0-5); Hematocrit 38.7 % (40-54); Hemoglobin 12.5 g/dL (13.0-16.5); Lymphocyte # 1.17 X10^3/ul (0.83-4.51); Lymphocyte % 14.4 % (19-41); Mean Corp Hgb Conc 32.3 g/dL (32-36); Mean Corpuscular Hgb 35.2 pg (27.0-32.0); Mean Platelet Vol. 9.6 fl (6.2-12.0); Monocyte# 0.58 X10^3/uL; Monocyte% 7.1 % (0-10); NRBC Flagged by Analyzer 0 % (0-5); Neutrophil # 5.63 X10^3/uL (2.7-7.7); Neutrophil % 69.2 % (47-70); Platelet Count 253 K/mm3 (150-450); RBC Distribution Width CV 12.4 % (11.6-14.6); RBC Distribution Width SD 50.6 fl (35.1-43.9); RET-HE 36.3 pg (30-35); Red Blood Count 3.55 M/mm3 (4.6-6.2); Reticulocyte Count 1.66 % (0.5-1.5); White Blood Count 8.1 K/mm3 (4.4-11.0)
[2025-01-26 16:42] LABS: AST(SGOT) 23 U/L (<=37); Alanine Aminotransfer ALT/SGPT 18 U/L (<=46); Albumin, Serum 4.1 g/dL (3.4-4.8); Alkaline Phosphatase 63 U/L (40-129); Anion Gap 10 (5-15); BUN 18 mg/dL (4-19); BUN/Creat Ratio 16.4 RATIO (10-20); Bilirubin, Direct 0.13 mg/dL (0.00-0.30); Calcium,Total 9.6 mg/dL (7.6-11.0); Chloride 106 mmol/L (98-108); Creatinine, Serum 1.07 mg/dL (0.70-1.20); EST Glomerular Filtration Rate 73 (>60); Globulin 3.2 g/dL (2.2-4.2); Glucose 100 mg/dL (70-99); Potassium 4.3 mmol/L (3.3-5.1); Protein, Total 7.3 g/dL (5.9-8.4); Sodium Level 138 mmol/L (133-145); Total Bilirubin 0.24 mg/dL (0.00-1.30); Vitamin B12 855 pg/mL (180-914)
[2025-01-26 18:29] LABS: Iron Binding Capacity,Total 294 ug/dL (250-450)
[2025-01-26 18:30] LABS: CRP < 3.00 mg/L (0.0-3.0); Iron 61 ug/dL (65-175); Iron Binding Capacity,Unsat 233 ug/dL (228-428); PERCENT IRON SATURATION 20.7 % (9-55)
== END | disposition home or self-care (01) ==
LOC: LAB 14:35
PROVIDERS: PCP Family Medicine; Referring Provider Nurse Practitioner Acute Care; Visit Provider Nurse Practitioner Acute Care
DX: K50.90 Crohn's disease, unspecified, without complications (principal); D53.9 Nutritional anemia, unspecified
CPT/HCPCS: 36415; 80048; 80076; 82607; 83540; 83550; 84443; 85025; 85045; 86140

== ENCOUNTER → 2025-02-17 | Outpatient (CLI) | payer MEDICARE, MEDICAID, SELFPAY | END | disposition home or self-care (01) | LOC: BIMLAB 11:20 | PROVIDERS: PCP Family Medicine | DX: L29.9 Pruritus, unspecified (principal); R76.8 Other specified abnormal immunological findings in serum | CPT/HCPCS: 36415 ==

== ENCOUNTER → 2025-02-22 | Outpatient (CLI) | payer MEDICARE, MEDICAID, SELFPAY ==
--- NOTE | 2025-02-22 12:02 | CT_ITS ---
PROCEDURE: CHEST WITHOUT CONTRAST 02/22/2025 REASON FOR EXAM: 1 CM SUBPLEURAL NODULE LLL TECHNIQUE: Chest CT without contrast. Coronal and Sagittal reconstruction series were provided. One or more dose reduction techniques were used (e.g., Automated exposure control, adjustment of the mA and/or kV according to patient size, use of iterative reconstruction technique RADIATION DOSE SUMMARY: CTDlvol: 11.41 mGy DLP: 441.87 mGycm COMPARISON: Prior study dated November 20, 2024. FINDINGS: Hardware: None Lymph nodes: Small benign-appearing mediastinal lymph nodes. Heart and Vasculature: Coronary artery calcifications are noted. Coronary Artery Calcifications: Present Lungs and Airways: Bronchiectasis and scarring in both lower lobes worse in the left lung base. There is elevation of the left hemidiaphragm. Stable examination. Pleura: Unremarkable Upper Abdomen: Small hiatal hernia. 1 cm cyst in the inferior aspect of the right lobe of the liver. Bones: Degenerative changes of the thoracic spine. CT/Chest without Contrast IMPRESSION: Coronary artery calcification (CAC) is is present Stable examination. Reading Location: [id number]
== END | disposition home or self-care (01) ==
LOC: CT 12:02
PROVIDERS: PCP Family Medicine; Referring Provider Nurse Practitioner Family; Visit Provider Nurse Practitioner Family
DX: R91.1 Solitary pulmonary nodule (principal)
CPT/HCPCS: 71250

== ENCOUNTER → 2025-03-12 | Outpatient (CLI) | payer MEDICARE, MEDICAID, SELFPAY ==
--- NOTE | 2025-03-12 16:01 | MRI_ITS ---
PROCEDURE: MRI ABD WITH AND W/O CONTRAST 03/12/2025 REASON FOR EXAM: CBD, PANC LESIONS TECHNIQUE: MRI of the upper abdomen without and with intravenous gadolinium-based contrast. Multiplanar and multisequence images were obtained. CONTRAST: Clariscan VOLUME: 17mL gauge IV COMPARISON: MRI on 12/25/2024. FINDINGS: Layering sludge is again noted in the gallbladder. Unchanged mildly prominent common bile duct measuring 9 mm. Nonenhancing scattered simple cysts are again noted in the pancreatic body and tail with the largest measuring 9 mm. Nondilated pancreatic duct. Unchanged scattered tiny simple hepatic cysts with the largest measuring 5 mm. Unchanged scattered bilateral simple renal cysts with the largest measuring 1.2 cm. Uncomplicated colonic diverticulosis. Unchanged thickening of the left adrenal gland without definite nodule. Unchanged hemangioma of L3 vertebral body. Unchanged 9 mm left renal nonobstructing stone. The visualized lung bases are unremarkable. Normal remaining liver. Normal spleen. Normal remaining pancreas. Normal remaining bilateral adrenal glands. Normal size of the right kidney. There is no right renal mass. There are no right renal calculi. There is no right hydronephrosis. Normal visualized right ureter. Normal size of the left kidney. There is no left renal mass. There is no left hydronephrosis. Normal visualized left ureter. Normal visualized stomach. Normal small intestine. There is no demonstrated peritoneal fluid. Atheromatous plaques of the abdominal aorta. Normal inferior vena cava. Normal retroperitoneum. Normal abdominal wall. MRI/MRI Abd WITH and W/O Contrast IMPRESSION: 1. Layering sludge is again noted in the gallbladder. 2. Unchanged mildly prominent common bile duct measuring 9 mm. 3. Nonenhancing scattered simple cysts are again noted in the pancreatic body a nd tail with the largest measuring 9 mm. Nondilated pancreatic duct. 4. Unchanged scattered tiny simple hepatic cysts with the largest measuring 5 m m. 5. Unchanged scattered bilateral simple renal cysts with the largest measuring 1.2 cm. 6. Uncomplicated colonic diverticulosis. 7. Unchanged thickening of the left adrenal gland without definite nodule. 8. Unchanged hemangioma of L3 vertebral body. 9. Unchanged 9 mm left renal nonobstructing stone. Reading Location[facility] [id number]
== END | disposition home or self-care (01) ==
LOC: OPMRI 15:45
PROVIDERS: PCP Family Medicine; Referring Provider Nurse Practitioner Acute Care; Visit Provider Nurse Practitioner Acute Care
DX: K50.00 Crohn's disease of small intestine without complications (principal); K83.8 Other specified diseases of biliary tract; K86.9 Disease of pancreas, unspecified; K22.70 Barrett's esophagus without dysplasia
CPT/HCPCS: 74183; A9575; A4216

== ENCOUNTER → 2025-03-16 | Outpatient (CLI) | payer MEDICARE, MEDICAID, SELFPAY ==
--- NOTE | 2025-03-16 09:39 | ECHOD_ITS ---
Reason For Study Reason For Study: SOB Procedure This was a 2D Doppler, Color Flow transthoracic echocardiogram. Exam performed in department. Left Ventricle The left ventricle is normal in size, thickness, and systolic function. The left ventricular ejection fraction is 65 %. Normal diastology for age. Right Ventricle Normal right ventricle. Atria The left atrium is mildly enlarged. Normal right atrium. Mitral Valve Trivial mitral valve insufficiency. Tricuspid Valve Trivial tricuspid valve insufficiency. Normal pulmonary artery pressure. Aortic Valve Trisinus/trileaflet aortic valve. Mild (1+) aortic valve insufficiency. Pulmonic Valve The pulmonic valve is not well visualized. Trivial pulmonic valve insufficiency. Great Vessels Coronary sinus dilated at 5.9 cm. Suspect coronary sinus???RV communication. Recommend cardiac MRI for further evaluation. Pericardium/Pleural No pericardial effusion. MMode/2D Measurements & Calculations LVIDd: 4.7 cm IVSd: 1.1 cm LVOT diam: 2.3 cm LVIDs: 3.1 cm LVPWd: 0.99 cm LVOT area: 4.2 cm2 RVDd: 3.8 cm FS: 34.7 % Ao root diam: 4.4 cm LAV(MOD-bp): 83.8 ml LVAd ap4: 37.5 cm2 LA dimension: 4.3 cm LAV(MOD-bp) Indexed: 39.8 ml/m2 LVLd ap4: 9.1 cm LAV(MOD-sp2): 91.5 ml EDV(MOD-sp4): 127.6 ml LAV(MOD-sp4): 73.4 ml EDV(sp4-el): 131.0 ml LVAs ap4: 21.2 cm2 LVLs ap4: 7.1 cm ESV(MOD-sp4): 53.2 ml ESV(sp4-el): 53.4 ml EF(MOD-sp4): 58.3 % EF(sp4-el): 59.2 % SV(MOD-sp4): 74.4 ml SV(sp4-el): 77.6 ml Ao sinus diam: 5.9 cm SI(MOD-sp4): 35.3 ml/m2 Ao ST Junction: 3.4 cm LA A4 area: 23.4 cm2 LA dimension(2D): 4.7 cm TAPSE: 3.0 cm RA A4 area: 17.0 cm2 Time Measurements MV dec time: 0.19 sec Doppler Measurements & Calculations MV E max tom: 60.0 cm/sec Lat Peak E' Tom: 10.2 cm/sec Med Peak E' Tom: 6.5 cm/sec MV A max tom: 60.6 cm/sec E/E' lat: 5.9 E/E' med: 9.3 MV E/A: 0.99 MV V2 max: 82.2 cm/sec MV P1/2t max tom: 67.4 cm/sec Ao V2 max: 106.2 cm/sec MV max P.7 mmHg MV P1/2t: 67.8 msec Ao max P.5 mmHg MV V2 mean: 36.9 cm/sec MV dec slope: 291.0 cm/sec2 Ao V2 mean: 73.2 cm/sec MV mean P.67 mmHg Ao mean P.5 mmHg MV V2 VTI: 31.5 cm MVA(P1/2t): 3.2 cm2 Ao V2 VTI: 28.6 cm MVA(VTI): 3.1 cm2 AV (velocity ratio): 0.82 JOAN(I,D): 3.4 cm2 JOAN(V,D): 3.7 cm2 AI max tom: 396.7 cm/sec LV V1 max: 94.9 cm/sec MR max tom: 311.9 cm/sec AI max P.9 mmHg LV V1 max P.6 mmHg MR max P.9 mmHg LV V1 mean P.6 mmHg AI dec slope: 190.9 cm/sec2 LV V1 mean: 57.4 cm/sec AI P1/2t: 608.4 msec LV V1 VTI: 23.5 cm SV(LVOT): 97.5 ml PA V2 max: 111.3 cm/sec TR max tom: 263.8 cm/sec PA V2 mean: 74.6 cm/sec TR max P.8 mmHg ECHO/Echo Complete Interpretation Summary The left ventricular ejection fraction is 65 %. The left atrium is mildly enlarged. Mild (1+) aortic valve insufficiency. Coronary sinus dilated at 5.9 cm. Suspect coronary sinus???RV communication. Re commend cardiac MRI for further evaluation. Ordering Physician: Daysi Rodarte Referring Physician: Daysi Rodarte Performed By: Bernardo Luz RCS
[2025-03-16 11:22] LABS: Absolute Lymphocyte Count 1.11 X10^3/uL (0.83-4.51); Absolute Neutrophil Count 4.5 X10^3/uL (2.0-7.7); Basophil# 0.08 X10^3/uL; Basophil% 1.2 % (0-1); Eosinophil# 0.58 X10^3/uL; Eosinophils% 8.4 % (0-5); Hematocrit 41.8 % (40-54); Hemoglobin 13.5 g/dL (13.0-16.5); Lymphocyte # 1.11 X10^3/ul (0.83-4.51); Lymphocyte % 16.1 % (19-41); Mean Corp Hgb Conc 32.3 g/dL (32-36); Mean Corpuscular Hgb 34.2 pg (27.0-32.0); Mean Corpuscular Volume 105.8 fL (80-94); Mean Platelet Vol. 9.6 fl (6.2-12.0); Monocyte# 0.64 X10^3/uL; Monocyte% 9.3 % (0-10); NRBC Flagged by Analyzer 0 % (0-5); Neutrophil # 4.45 X10^3/uL (2.7-7.7); Neutrophil % 64.6 % (47-70); Platelet Count 236 K/mm3 (150-450); RBC Distribution Width CV 13.2 % (11.6-14.6); RBC Distribution Width SD 51.8 fl (35.1-43.9); Red Blood Count 3.95 M/mm3 (4.6-6.2); White Blood Count 6.9 K/mm3 (4.4-11.0)
[2025-03-16 11:48] LABS: Anion Gap 8 (5-15); BUN 13 mg/dL (4-19); BUN/Creat Ratio 13.8 RATIO (10-20); Carbon Dioxide 26.6 mmol/L (21.0-32.0); Chloride 106 mmol/L (98-108); Creatinine, Serum 0.92 mg/dL (0.70-1.20); EST Glomerular Filtration Rate 88 (>60); Glucose 92 mg/dL (70-99); Potassium 4.5 mmol/L (3.3-5.1); Sodium Level 141 mmol/L (133-145)
== END | disposition home or self-care (01) ==
PROVIDERS: Nurse Practitioner Acute Care; PCP Family Medicine; Referring Provider Nurse Practitioner Family; Visit Provider Nurse Practitioner Family
DX: R06.02 Shortness of breath (principal); K50.00 Crohn's disease of small intestine without complications; D64.9 Anemia, unspecified; K83.8 Other specified diseases of biliary tract; K86.9 Disease of pancreas, unspecified; K22.70 Barrett's esophagus without dysplasia
CPT/HCPCS: 36415; 80048; 85025; 93306

== ENCOUNTER → 2025-03-26 | Outpatient (CLI) | payer MEDICARE, MEDICAID, SELFPAY | END | disposition home or self-care (01) | LOC: LABSPEC 17:32 | PROVIDERS: PCP Family Medicine; Visit Provider Nurse Practitioner Family | DX: J43.2 Centrilobular emphysema (principal) | CPT/HCPCS: 87070; 87077; 87186; 87205 ==

== ENCOUNTER → 2025-03-31 | Outpatient (CLI) | payer MEDICARE, MEDICAID, SELFPAY | END | disposition home or self-care (01) | LOC: SL 19:41 | PROVIDERS: PCP Family Medicine; Referring Provider Nurse Practitioner Family; Visit Provider Nurse Practitioner Family | DX: G47.31 Primary central sleep apnea (principal) | CPT/HCPCS: 95811 ==

== ENCOUNTER → 2025-04-20 | Outpatient (CLI) | payer MEDICARE, MEDICAID, SELFPAY ==
--- NOTE | 2025-04-20 14:42 | RAD_ITS ---
PROCEDURE: CHEST PA AND LATERAL 04/20/2025 REASON FOR EXAM: SHORTNESS OF BREATH TECHNIQUE: CHEST PA AND LATERAL COMPARISON: None FINDINGS: Hardware: None Heart: The heart is not enlarged. Mediastinum: The mediastinal contour is unremarkable. Lungs: Pleural-parenchymal changes at the left lung base. This most likely represents scarring. Bones: Degenerative changes are identified within the thoracic spine. RAD/Chest PA and Lateral IMPRESSION: Pleural-parenchymal changes at the left lung base. Reading Location: [place] [id number]
== END | disposition home or self-care (01) ==
LOC: RAD 14:27
PROVIDERS: PCP Family Medicine; Referring Provider Nurse Practitioner Family; Visit Provider Nurse Practitioner Family
DX: J44.9 Chronic obstructive pulmonary disease, unspecified (principal)
CPT/HCPCS: 71046

== ENCOUNTER → 2025-04-27 | Outpatient (CLI) | payer MEDICARE, MEDICAID, SELFPAY | END | disposition home or self-care (01) | LOC: SL 13:34 | PROVIDERS: PCP Family Medicine; Referring Provider Nurse Practitioner Family; Visit Provider Nurse Practitioner Family | DX: Z00.00 Encounter for general adult medical examination without abnormal findings (principal) ==

== ENCOUNTER 2025-05-24 05:32 | Day surgery (SDC) | payer MEDICARE, MEDICAID, SELFPAY ==
--- NOTE | 2025-05-19 14:35 | PAT.ANESEVAL ---
Pre-Assessment Diagnosis/Proposed Procedure Planned Operative Procedure(s): COLONOSCOPY Anesthesia History Anesthesia History - technical trainer: Anesthesia History - technical trainer Hx Hospitalization Yes: Nov-Nov, 05/19/25 08:41 ACUTE KIDNEY FAILURE, BLEEDING ULCER Any Problems With Anesthesia No 05/19/25 08:41 Cholinesterase deficiency No 05/19/25 08:41 You/Your Family Experience No 05/19/25 08:41 fever (hyperthermia) with Relationship Recent Exposure to Contagious No 01/04/25 05:53 Disease Does patient have nerve No 05/19/25 08:41 stimulator Patient instructed to have device shut off --Does patient have Pacemaker or ICD? When Was Last Pacemaker Check QUESTION #4 FULL TEXT: You/Your Family Experience fever (hyperthermia) with Anesthesia Last Oral Intake Last Oral intake: Last Oral Intake NPO since Meds taken in AM with sips of water? Meds patient instructed to take am of surgery PONV PONV - technical trainer: PONV - technical trainer Female No 05/19/25 08:41 HX of Motion Sickness No 05/19/25 08:41 HX of N/V After Surgery No 05/19/25 08:41 Non-Smoker Yes 05/19/25 08:41 Duration of Surgery greater No 05/19/25 08:41 than 60 minutes Number of Risk Factors 1 05/19/25 08:41 PONV Score Low Risk 05/19/25 08:41 Height & Weight Height & Weight: Anesthesia: Height & Weight Height 6 ft 04/20/25 11:48 Respiratory Assessment Respiratory Assessment - technical trainer: Respiratory Tract Infection Hx - technical trainer Hx Respiratory Tract Infection No 05/19/25 08:41 STOP Sleep Apnea STOP Sleep Apnea - technical trainer: STOP Sleep Apnea - technical trainer Hx Hypertension Yes: CONTROLLED ON MED 05/19/25 08:41 Hx Sleep Apnea Yes: ASV MACHINE 05/19/25 08:41 CPAP No 05/19/25 08:41 BIPAP No 05/19/25 08:41 Do you snore loudly (louder No 05/19/25 08:41 than talking or can be heard Do you often feel tired/ No 05/19/25 08:41 fatigued/ sleepy during daytime? Has anyone observed you stop No 05/19/25 08:41 breathing during sleep? STOP Results Positive 05/19/25 08:41 QUESTION #5 FULL TEXT : Do you snore loudly (louder than talking or can be heard through closed doors)? 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 Specify any problems Hx of Preganancy in last 3 N/A 05/19/25 08:41 Months Nurse Filling Out Transfusion VCHRISTIN 05/19/25 08:41 & Questions: Date: 05/19/25 05/19/25 08:41 Time: 08:43 05/19/25 08:41 Patient unable to answer at this time (ie. confused, unrespo /Reproduction History /Reproductive History - technical trainer: /Reproductive Hx- technical trainer Hx Now No 05/19/25 08:41 Gestational Age (in weeks): EDC: Hx Hx Para Hx Section SAB No 05/19/25 08:41 [facility] Medical History (Updated 05/19/25 @ 08:41 by Radha Koch) BiPAP (biphasic positive airway pressure) dependence Sleep apnea Bruising Enlarged prostate Anemia Esophageal ulcer with bleeding Drop foot gait Wears glasses Wears dentures Forgetfulness Arthritis High cholesterol Back pain Difficulty chewing History of hiatal hernia History of GI bleed Former smoker On home oxygen therapy COPD (chronic obstructive pulmonary disease) Shortness of breath on exertion Cardiology follow-up encounter History of stress test History of echocardiogram Overdose Severe protein-calorie malnutrition Pneumonia Syncope Depression Neuropathy Community acquired pneumonia GERD (gastroesophageal reflux disease) IBS (irritable bowel syndrome) History of stomach ulcers Arthritis Chronic pain Hyperlipidemia Hypertension Home Medications ?Medication ?Instructions ?Recorded ?Last Taken ?Type multivitamin 1 tab PO DAILY supplement 07/01/21 05/18/25 History glucosamine-chondroitin 250 mg-200 2 tab PO DAILY 01/12/23 01/01/24 History mg tablet (Osteo Bi-Flex) docusate sodium 100 mg capsule 100 mg PO DAILY Constipation 08/01/23 01/01/24 History (Colace) rollator walker with seat #1 ea 11/05/23 Unknown Rx fluticasone propionate 50 2 spray intranasal DAILY #3 ea 02/14/24 Unknown Rx mcg/actuation nasal spray,suspension B-complex with vitamin C 1 cap PO QDAY 11/09/24 Unknown History ascorbic acid (vitamin C) 1,000 mg 1 g PO QDAY 12/10/24 Unknown History capsule atenolol 50 mg tablet 50 mg PO DAILY #90 tabs 02/23/25 Unknown Rx acetaminophen 650 mg 1,950 mg PO QDAY PRN pain 02/26/25 Unknown History tablet,extended release (Arthritis Pain Relief (acetaminophen) ER) carboxymethylcellulose sodium 0.5 2 drp ophthalmic (eye) BID PRN dry 02/26/25 Unknown History % eye drops (Refresh Tears) eye(s) diphenhydramine 25 3 tab PO QHS PRN sedation 02/26/25 Unknown History mg-acetaminophen 500 mg tablet (Acetaminophen PM) albuterol sulfate 90 mcg/actuation See Rx Instructions .Route 03/12/25 Unknown Rx aerosol inhaler .COMPLEX #8.5 grams fluticasone fur. 200 mcg-umeclid 1 ea inhalation QDAY #3 ea 03/12/25 Unknown Rx 62.5 mcg-vilant 25 mcg inhalat.powder (Trelegy Ellipta) rabeprazole 20 mg tablet,delayed 20 mg PO QDAY #90 tabs 03/14/25 Unknown Rx release ipratropium 0.5 mg-albuterol 3 mg 3 ml inhalation DAILY shortness of 03/16/25 Unknown Rx (2.5 mg base)/3 mL nebulization breath or wheezing #180 mL soln guaifenesin 1,200 mg tablet, 1,200 mg PO BID #60 tabs 04/20/25 Unknown Rx extended release 12 hr (Mucinex) trazodone 100 mg tablet 100 mg PO QHS #90 TABLETS 04/20/25 Unknown Rx ipratropium bromide 42 mcg (0.06 2 spray intranasal TID #15 mL 05/11/25 Unknown Rx %) nasal spray pravastatin 40 mg tablet 40 mg PO DAILY 05/19/25 Unknown History Allergy/AdvReac Type Severity Reaction Status Date / Time aspirin Allergy Severe bleeding Verified 05/19/25 08:32 Family History Mother Myocardial infarction, Onset Age: 49 Depression Father Hypertension CVA (cerebral vascular accident), Onset Age: 49 Sister Thyroid disorder Uncle ulcers Surgical History (Updated 05/19/25 @ 08:41 by Radha Koch) Hx of colonoscopy History of transurethral resection of prostate (06/03/24) History of bronchoscopy History of esophagogastroduodenoscopy (EGD) Hx of colonoscopy History of thoracic surgery Social History household members: spouse and significant other Smoking Status: Former smoker quit date: 07/14/21 alcohol intake: never substance use type: does not use what type of physical activity do you participate in: other details: yard work, house work Audit: Pertinent Findings Pertinent Findings EKG Perinent findings: 12/03/2023. Sinus bradycardia 57 bpm. Right axis deviation. Nonspecific ST abnormality. Stress test pertinent findings: 10/15/2023. Normal pharmacologic myocardial perfusion stress test. Echo (EF%) pertinent findings: 03/16/2025. EF 65%. Coronary sinus dilated at 5.9 centimeter. Consult pertinent findings: Cardiology 12/10/2024. Orthostatic hypotension. Stable. Blood pressure stable. Continue atenolol. Aortic root dilation. Severely dilated at 5.9 cm. No evidence of dissection noted. COPD. Chronic. Currently on oxygen. Recommendation Anesthesia Recommendation Anesthesia recommendation: OPTIMIZED for anesthesia
[2025-05-24] VITALS (7 sets, daily range): BP systolic 108–131; BP diastolic 58–68; PULSE 51–56; RESP 12–18; TEMP 36.2–37; O2SAT 100; BMI 25.9
--- OUTSIDE RECORDS SUMMARY | 2025-05-24 05:37 | XMS RPT_ITS | CCD ---
Author Organization [facility] CliniSyin Care Team Providers Care Set Up Mold Technician Name Role Phone Dr. Shalini Ferrari Primary Care Provider [phone] Dr. Shalini Ferrari Attending Provider [phone] Dr. Shalini Ferrari Referring Provider [phone] Dr. Shalini Ferrari Primary Care Provider [phone] Dr. Shalini Ferrari Attending Provider [phone] Dr. Shalini Ferrari Referring Provider Andrew TREASURY ANALYST, TREASURY ANALYST-C Brody Attending Provider [phone] Kaden TREASURY ANALYST, TREASURY ANALYST-C Cj Connor Attending Provider Dr. Joshua Orourke Emergency Provider Dr. Mariann Clancy Admit Provider Dr. Mariann Clancy Other Provider Dr. Trent Martinez Attending Provider Dr. Trent Martinez Other Provider SHALINI FERRARI DO Primary Care Physician Dr. Shalini Ferrari Primary Care Provider [phone] Dr. Shalini Ferrari Referring Provider Kaden TREASURY ANALYSTROSE Attending Provider Dr. Joshua Orourke Emergency Provider Dr. Mariann Clancy Admit Provider Dr. Mariann Clancy Other Provider Dr. Trent Martinez Attending Provider Dr. Trent Martinez Other Provider Terry, Dr. Shalini Cavazos Attending Provider Dr. Shalini Ferrari Primary Care Provider [phone] Terry, Dr. Shalini Cavazos Attending Provider Terry, Dr. Shalini Cavazos Referring Provider Terry, Dr. Shalini Cavazos Primary Care Provider [phone] Terry, Dr. Shalini Cavazos Attending Provider Terry, Dr. Shalini Cavazos Referring Provider Teryr, Dr. Christianson Attending Provider Terry, Dr. Christianson Referring Provider Terry, Dr. Christianson Other Provider Dr. Shalini Ferrari Primary Care Provider [phone] Terry, Dr. Shalini Cavazos Attending Provider [phone] Shalini Ferrari Referring Provider [phone] SONAM Luque Attending Provider Dr. Robson Moreira Attending Provider Dr. Robson Moreira Referring Provider Dr. Robson Moreira Other Provider Dr. Thor Trejo Attending Provider Vilma MASTERS PA Anoop Other Provider Dr. Shalini Ferrari Primary Care Provider Dr. Shalini Ferrari Attending Provider Dr. Shalini Frerari Referring Provider Steffany TREASURY ANALYST, TREASURY ANALYST-Marilia Oshea Attending Provider Dr. Shalini Ferrari Primary Care Provider [phone] Dr. Shalini Ferrari Referring Provider Dr. Shalini Ferrari Attending Provider Dr. Shalini Ferrari Primary Care Provider [phone] Dr. Sammy Ferrari Attending Provider Dr. Sammy Ferrari Referring Provider [phone] Dr. Sammy Ferrari Other Provider Dr. Shalini Ferrari Attending Provider [phone] Dr. Shalini Ferrari Referring Provider [phone] SONAM Luque Attending Provider [phone] Dr. Robson Moreira Attending Provider Dr. Robson Moreira Referring Provider Dr. Robson Moreira Other Provider Dr. Thor Trejo Attending Provider SONAM Luque Other Provider Jeter TREASURY ANALYST, TREASURY ANALYST-C Dorie Attending Provider [phone] Dr. Hao Vega Emergency Provider Dr. Mariann Clancy Admit Provider Dr. Mariann Clancy Other Provider Dr. Trinidad Alarcon Other Provider Dr. Suzanne Ferrer Other Provider Dorian, Dr. Trinidad Villasenor Attending Provider Jb, Dr. Woodruff Attending Provider Dr. Shalini Ferrari Primary Care Provider [phone] Dr. Shalini Ferrari Referring Provider Dr. Shalini Ferrari Attending Provider Dr. Sammy Ferrari Attending Provider Dr. Sammy Ferrari Other Provider Dr. Trinidad Alarcon Referring Provider Dr. Shalini Ferrari Primary Care Provider [phone] Dr. Shalini Ferrari Referring Provider [phone] SONAM Luque Attending Provider [phone] Dr. Robson Moreira Attending Provider Dr. Robson Moreira Referring Provider Dr. Robson Moreira Other Provider Dr. Thor Trejo Attending Provider [phone] SONAM Luque Other Provider Jeter TREASURY ANALYST, TREASURY ANALYST-C Dorie Attending Provider Dr. Shalini Ferrari Attending Provider [phone] Dr. Hao Vega Emergency Provider Dr. Mariann Clancy Admit Provider Dr. Mariann Clancy Other Provider Dr. Sammy Ferrari Attending Provider Dr. Sammy Ferrari Other Provider Dorian, Dr. Trinidad Villasenor Referring Provider Dr. Trinidad Alarcon Other Provider Dr. Suzanne Ferrer Other Provider [phone] Dorian, Dr. Trinidad Villasenor Attending Provider FriendDr. Woodruff Attending Provider Dr. Perry Hays Referring Provider Dr. Perry Hays Other Provider Dr. Shalini Ferrari Primary Care Provider [phone] Dr. Shalini Ferrari Referring Provider [phone] Unavailable Primary Care Provider UnavailDr. Shalini Nix Primary Care Provider [phone] Dr. Robson Moreira Attending Provider Dr. Shalini Ferrari Referring Provider Dr. Shalini Ferrari Primary Care Provider [phone] Dr. Thor Trejo Attending Provider SONAM Luque Attending Provider [phone] Unavailable Primary Care Provider Unavaillisa e PERRY HAYS DO Attending Unavailable SHALINI FERRARI DO Primary Care Unavailable Shalini Ferrari DO Primary Care Provider SHALINI FERRARI Primary Care Unavailable GANGEL JR, DAVID GENE Referring Unavaila ble KING, NATALIA Attending Unavailable GANGEL JR, DAVID GENE Referring Unavaila ble BROWN, SHALINI R Primary Care Unavailable GANGEL JR, DAVID GENE Attending Unavaila ble GANGEL JR, DAVID GENE Attending Unavaila ble BROWN, SHALINI R Primary Care Unavailable GANGEL JR, DAVID GENE Attending Unavaila ble GANGEL JR, DAVID GENE Admitting Unavaila ble GANGEL JR, DAVID GENE Referring Unavaila ble GANGEL JR, DAVID GENE Referring Unavaila ble GANGEL JR, DAVID GENE Referring Unavaila ble GANGEL JR, DAVID GENE Attending Unavaila ble NATALIA KING Referring Unavailable Dr. Shalini Ferrari DO Primary Care Provider Dr. Shalini Ferrari DO Referring Provider [phone] Cayden TREASURY ANALYST-CDaysi Attending Provider Dr. Shalini Ferrari DO Attending Provider Robson TREASURY ANALYST-CFiona Attending Provider Robson TREASURY ANALYST-CFiona Referring Provider Cayden BENAVIDEZ-CDaysi Referring Provider Kaden BENAVIDEZ-CCj Attending Provider Dr. Perry Hays DO Attending Provider Dr. Perry Hays DO Other Provider [phone] Dr. Shalini Ferrari DO Primary Care Provider Dr. Shalini Ferrari DO Referring Provider Cayden BENAVIDEZ-CDaysi Attending Provider Charlene WILCOX, Dr. Triplett Attending Provider Dr. Uziel Chang MD Referring Provider SHALINI FERRARI Primary Care Unavailable REFERRED, SELF Referring Unavailable SOLIS CLANCY Attending Unavailable Terry GRECO, Dr. Shalini Cavazos Primary Care Provider Dr. Shalini Ferrari DO Referring Provider [phone] Dr. Shalini Ferrari DO Attending Provider BECKY CLANCY Attending Provider [phone] Shalini Ferrari DO Primary Care Provider Robson TREASURY ANALYST-C, Fiona Attending Provider Robson TREASURY ANALYST-C, Fiona Referring Provider Rufener TREASURY ANALYST-C, Daysi Ayala Attending Provider Rufener TREASURY ANALYST-C, Daysi Ayala Referring Provider Dr. Shalini Ferrari DO Referring Provider [phone] Dr. Shalini Ferrari DO Primary Care Provider Rufener TREASURY ANALYST-C, Daysi Ayala Attending Provider Rufener TREASURY ANALYST-C, Daysi Ayala Referring Provider Robson TREASURY ANALYST-C, Fiona Attending Provider Robson TREASURY ANALYST-C, Fiona Referring Provider Robson TREASURY ANALYST-C, Fiona Other Provider [phone] Herbert WILCOX, Dr. Calabrese Attending Provider Dr. Shalini Ferrari DO Primary Care Provider [phone] Rujenniferer TREASURY ANALYST-C, Daysi Ayala Attending Provider Rutalia TREASURY ANALYST-C, Daysi Ayala Referring Provider Dr. Shalini Ferrari DO Primary Care Provider Dr. Shalini Ferrari DO Primary Care Provider [phone] Robson TREASURY ANALYST-C, Fiona Attending Provider Robson TREASURY ANALYST-C, Fiona Referring Provider Dr. Shalini Ferrari DO Primary Care Provider [phone] Rutalia TREASURY ANALYST-C, Daysi Ayala Attending Provider Dr. Shalini Ferrari DO Referring Provider [phone] Dr. Shalini Ferrari DO Primary Care Provider Cayden TREASURY ANALYST-C, Daysi Ayala Attending Provider Robson TREASURY ANALYST-C, Fiona Attending Provider Robson TREASURY ANALYST-C, Fiona Referring Provider Terry GRECO, Dr. Shalini Cavazos Primary Care Provider Terry GRECO, Dr. Shalini Cavazos Referring Provider [phone] Terry GRECO, Dr. Shalini Cavazos Attending Provider [phone] Cayden TREASURY ANALYST-C, Daysi Ayala Attending Provider Cayden TREASURY ANALYST-C, Daysi Ayala Referring Provider Brown, Shalini R Primary Care Unavailable Daysi Rodarte Attending Unavailable Daysi Rodarte Referring Unavailable Brown, Shalini R Primary Care Unavailable Perry Hays Attending Unavailable Brown, Shalini R Referring Unavailable Daysi Rodarte Attending Unavailable Daysi Rodarte Referring Unavailable Brown, Shalini R Primary Care Unavailable Brown, Shalini R Primary Care Unavailable Brown, Shalini R Referring Unavailable Brown, Shalini R Attending Unavailable Brown, Shalini R Primary Care Unavailable Fiona Chance Attending Unavailable Fiona Chance Referring Unavailable Daysi Rodarte Attending Unavailable Daysi Rodarte Referring Unavailable Brown, Shalini R Primary Care Unavailable Brown, Shalini R Primary Care Unavailable Fiona Chance Referring Unavailable Fiona Chance Attending Unavailable Brown, Shalini R Primary Care Unavailable Fiona Chance Referring Unavailable Fiona Chance Attending Unavailable Brown, Shalini R Primary Care Unavailable Daysi Rodarte Attending Unavailable Brown, Shalini R Attending Unavailable Brown, Shalini R Primary Care Unavailable Brown, Shalini R Referring Unavailable Brown, Shalini R Primary Care Unavailable Daysi Rodarte Attending Unavailable Daysi Rodarte Referring Unavailable Steffany TREASURY ANALYSTDorie Attending Unavailable Steffany TREASURY ANALYSTDorie Referring Unavailable Brown, Shalini R Primary Care Unavailable Brown, Shalini R Primary Care Unavailable Daysi Rodarte Attending Unavailable Brown, Shalini R Attending Unavailable Brown, Shalini R Primary Care Unavailable Brown, Shalini R Referring Unavailable Brown, Shalini R Primary Care Unavailable Daysi Rodarte Attending Unavailable Daysi Rodarte Referring Unavailable Brown, Shalini R Primary Care Unavailable Daysi Rodarte Attending Unavailable Daysi Rodarte Referring Unavailable Brown, Shalini R Primary Care Unavailable Fiona Chance Referring Unavailable Fiona Chance Attending Unavailable Brown, Shalini R Primary Care Unavailable Daysi Rodarte Attending Unavailable Daysi Rodarte Referring Unavailable Brown, Shalini R Primary Care Unavailable Daysi Rodarte Attending Unavailable Daysi Rodarte Referring Unavailable Brown, Shalini R Primary Care Unavailable Fiona Chance Attending Unavailable Fiona Chance Referring Unavailable Brown, Shalini R Primary Care Unavailable Daysi Rodarte Attending Unavailable Daysi Rodarte Referring Unavailable Brown, Shalini R Primary Care Unavailable Brown, Shalini R Referring Unavailable RobsonFiona salinas Attending Unavailable Brown, Shalini R Primary Care Unavailable RobsonFiona [place] Attending Unavailable Brown, Shalini R Referring Unavailable Brown, Shalini R Attending Unavailable Brown, Shalini R Primary Care Unavailable Brown, Shalini R Referring Unavailable Brown, Shalini R Primary Care Unavailable Brown, Shalini R Referring Unavailable Brown, Shalini R Attending Unavailable Brown, Shalini R Primary Care Unavailable Brown, Shalini R Referring Unavailable Daysi Rodarte Attending Unavailable Brown, Shalini R Primary Care Unavailable Brown, Shalini R Referring Unavailable Brown, Shalini R Attending Unavailable Daysi Rodarte Attending Unavailable Brown, Shalini R Primary Care Unavailable Brown, Shalini R Referring Unavailable Brown, Shalini R Primary Care Unavailable Brown, Shalini R Referring Unavailable Daysi Rodarte Attending Unavailable Brown, Shalini R Primary Care Unavailable Brown, Shalini R Referring Unavailable Daysi Rodarte Attending Unavailable BrownShalini R Attending Unavailable Brown, Shalini R Primary Care Unavailable Brown, Shalini R Referring Unavailable Brown, Shalini R Primary Care Unavailable Daysi Rodarte Attending Unavailable Brown, Shalini R Referring Unavailable Dorie Jeter NP Attending Unavailable Brown, Shalini R Primary Care Unavailable Brown, Shalini R Referring Unavailable Brown, Shalini R Primary Care Unavailable Brown, Shalini R Referring Unavailable Cj Alfonso NP Attending Unavailable Brown, Shalini R Primary Care Unavailable Uziel Chang Referring Unavailable Uziel Chang Attending Unavailable Sammy Ferrari Attending Unavailable Dorie Jeter NP Referring Unavailable Brown, Shalini R Primary Care Unavailable Guanakito Godinez Attending Unavailable Brown, Shalini R Primary Care Unavailable Brown, Shalini R Attending Unavailable Brown, Shalini R Primary Care Unavailable Brown, Shalini R Referring Unavailable Brown, Shalini R Primary Care Unavailable Friend, Perry Attending Unavailable Sammy Ferrari Attending Unavailable Steffany BENAVIDEZ, Dorie Consulting Unavailable Steffany TREASURY ANALYST, Dorie Referring Unavailable Brown, Shalini R Primary Care Unavailable Brown, Shalini R Primary Care Unavailable Daysi Rodarte Attending Unavailable Brown, Shalini R Referring Unavailable Brown, Shalini R Primary Care Unavailable Friend, Perry Consulting Unavailable Friend, Perry Attending Unavailable Brown, Shalini R Referring Unavailable Brown, Shalini R Primary Care Unavailable Brown, Shalini R Referring Unavailable Brown, Shalini R Attending Unavailable Brown, Shalini R Primary Care Unavailable Daysi Rodarte Attending Unavailable Daysi Rodarte Referring Unavailable Brown, Shalini R Primary Care Unavailable Friend, Perry Attending Unavailable Brown, Shalini R Referring Unavailable Steffany BENAVIDEZ, Dorie Attending Unavailable Steffany BENAVIDEZ, Dorie Referring Unavailable Brown, Shalini R Primary Care Unavailable Brown, Shalini R Primary Care Unavailable Fiona Chance Consulting Unavailable Daysi Rodarte Attending Unavailable Daysi Rodarte Referring Unavailable Brown, Shalini R Primary Care Unavailable Fiona Chance Referring Unavailable Fiona Chance Attending Unavailable Brown, Shalini R Primary Care Unavailable RACHELLE METZ Attending Unavailable Allergies Allergy Classification Reported Allergen(s) Allergy Type Date of Onset Reaction(s) Facility (20 sources) Aspirin; Translations: [aspirin] Drug Allergy 2 bleeding [facility] (19 sources) Aspirin Compound; Translations: [ASPIRIN COMPOUND] Propensity to adverse reactions to drug 4 GI Upset [facility] Work Phone: (1 source) Aspirin Drug Allergy 5 [facility] Repository Medications Current Medications Medication Drug Class(es) Dates Sig (Normalized) Sig (Original) 8 hr acetaminophen 650 mg extended release oral tablet (9 sources) Start: 02-26-2025 acetaminophen 500 mg / diphenhydrAMINE hydrochloride 25 mg oral tablet (20 sources) Histamine-1 Receptor Antagonist Start: 02-26-2025 take 2 tablets by [facility] once daily at bedtime acetaminophen/diphenhydramine (TYLENOL P M ORAL) Take 2 tablets by mouth daily at bedtime. Active take 2 tablets by mo uth once daily at bedtime acetaminophen/diphenhydramine (TYLENOL P M ORAL) Take 2 tablets by mouth daily at bedtime. 0 Active take 5 tablets by mo uth at bedtime diphenhydrAMINE-Acetaminophen (PM PAIN R ELIEF) 25-500 mg tab Take by mouth. 5 at bedtime 0 Active Comment on above: Take by mouth. 5 at bedtime amoxicillin 500 mg / clavula mark 125 mg oral tablet (20 sources) Penicillin-class Antibacterial Start: 03-26-2025 Start: 01-23-2024 End: 01-23-2024 Start: 01-23-2024 End: 01-23-2024 Start: 09-07-2022 End: 09-17-2022 Start: 09-07-2022 End: 09-17-2022 Start: 09-07-2022 End: 09-17-2022 take 1 tablet by mouth every twelve hours Amoxicillin-Pot Clavulanate Discontinued 1 TABLET PO Q12H 20 September 07, 2022 12:00am September 17, 2022 12:03am ascorbic acid 1000 mg oral capsule (20 sources) Vitamin C Start: 02-14-2024 End: 12-10-2024 B Complex 50 oral tablet (2 sources) Start: 01-28-2023 take 1 tablet by mouth once daily B Complex 50 oral tablet Dose = 2 tab(s), Oral, Daily, # 30 tab(s), 0 Refill(s) Start Date: 01/28/23 Status: Ordered carboxymethylcellulose sodiu m 5 mg/ml ophthalmic solution (20 sources) Start: 02-26-2025 Start: 10-22-2023 End: 12-10-2024 Start: 10-22-2023 Carboxymethylc ellulose Sodium (Refresh Tears) 0.5 % drops Active 1 DRP OPHTHALMIC 4 to 6 times per day October 22, 2023 12:00am Comment on above: Use 1 Drop in both e yes every 4 hours as needed. 4-6 times daily as needed chondroitin sulfates 200 mg / glucosamine hydrochloride 250 mg oral tablet (19 sources) Start: 01-12-2023 Start: 01-12-2023 take 2 tablets by mo uth once daily Glucosamine-Chondroitin (Osteo Bi-Flex) 250-200 mg tablet Active 2 TABLET PO DAILY January 11, 2023 11:00pm as directed orally; Start: 01-12-2023 Glucosamine-Ch ondroitin (Osteo Bi-Flex) 250-200 mg tablet Active 0 PO .COMPLEX January 11, 2023 11:00pm as directed orally; ciprofloxacin 500 mg oral tablet (3 sources) Quinolone Antimicrobial Start: 05-27-2024 End: 06-01-2024 take 1 tablet by mouth twice daily ciprofloxacin HCl (CIPRO) 500 mg tablet Take 1 tablet by mouth two times a day for 5 days. 10 tablet 0 05/27/2024 06/01/2024 Active Start: 03-30-2024 End: 03-30-2024 ciprofloxacin HCl 500 mg tab (s) (CIPRO) doxycycline hyclate 100 mg oral capsule (3 sources) Tetracycline-class Drug Start: 04-20-2025 fluticasone propionate 0.05 mg/actuat metered dose nasal spray (20 sources) Corticosteroid Start: 10-20-2023 take 2 spray(s) nasal route once daily fluticasone (FLONASE) 50 mcg/actuation nasal spray Use 2 Sprays in each nostril once daily. 10/20/2023 Active Start: 05-16-2021 End: 02-14-2024 Start: 05-16-2021 End: 08-20-2023 Fluticasone Propionate Disco ntinued 2 SPRAY INTRANASAL DAILY April 17, 2023 11:05am August 20, 2023 11:48am Comment on above: Use 2 Sprays in each nostril once daily. 30 actuat fluticasone furoate 0.1 mg/actuat / umeclidinium 0.0625 mg/actuat / vilanterol 0.025 mg/actuat dry powder inhaler (16 sources) Anticholinergic, Corticosteroid, beta2-Adrenergic Agonist take 1 puff(s) by inhalation once daily fluticasone-umecli din-vilanter (TRELEGY ELLIPTA) 100-62.5-25 mcg inhalation powder Inhale 1 Puff as instructed once daily. Active Comment on above: Inhale 1 Puff as ins tructed once daily. Fluticasone-Umeclidin -Vilanter (20 sources) Start: Start: 02-14-2024 End: 03-12-2025 Start: 02-14-2024 Start: 01-23-2024 End: 02-14-2024 Start: 01-23-2024 Start: 10-22-2023 End: 12-03-2023 Start: 10-22-2023 Fluticasone-Um eclidin-Vilanter (Trelegy Ellipta) 200-62.5-25 mcg blister with device Active 1 INH INHALATION DAILY October 22, 2023 1:15pm Start: 05-20-2023 End: 10-22-2023 Start: 05-20-2023 End: 10-22-2023 Jxtjaiwhugn-Dxmoqtnte-Lzcflc er (Trelegy Ellipta) 200-62.5-25 mcg blister with device Discontinued 1 INH INHALATION DAILY May 19, 2023 11:00pm October 22, 2023 1:15pm Start: 05-20-2023 Fluticasone-Um eclidin-Vilanter (Trelegy Ellipta) 200-62.5-25 mcg blister with device Active 1 INH INHALATION DAILY May 19, 2023 11:00pm Start: 05-20-2023 Fluticasone-Um eclidin-Vilanter (Trelegy Ellipta) 200-62.5-25 mcg blister with device Active 1 INH INHALATION DAILY May 20, 2023 12:00am GLUCOSAMINE HCL/CHONDR RATLIFF A NA (OSTEO BI-FLEX ORAL) (17 sources) take 2 tablets by mo uth once daily GLUCOSAMINE HCL/CHONDR RATLIFF A NA (OSTEO BI-FLEX ORAL) Take 2 tablets by mouth once daily. Active take 2 tablets by mouth once pardeep ly GLUCOSAMINE HCL/CHONDR RATLIFF A NA (OSTEO BI- FLEX ORAL) Take 2 tablets by mouth once daily. 0 Active GLUCOSAMINE HCL/ CHONDR RATLIFF A NA (OSTEO BI-FLEX ORAL) Take by mouth. 0 Active Comment on above: Take by mouth. Take 2 tablets by mo uth once daily. ibuprofen 200 mg oral capsule (17 sources) Nonsteroidal Anti-inflammatory Drug Ibuprofen 200 mg cap Take by mouth. 4 tablets prn Active Comment on above: Take by mouth. 4 tab lets prn MULTIVIT &MINERALS/FERROUS FUM (MULTI VITAMIN ORAL) (17 sources) take 1 tablet by mouth once daily MULTIVIT &MINERALS/FERROUS FUM (MULTI VITAMIN ORAL) Take 1 tablet by mouth once daily. Active take 1 tablet by mouth once courtney y MULTIVIT &MINERALS/FERROUS FUM (MULTI VITAMIN ORAL) Take 1 tablet by mouth once daily. 0 Active MULTIVIT &MINERA LS/FERROUS FUM (MULTI VITAMIN ORAL) Take by mouth. 0 Active Comment on above: Take by mouth. MULTIVITAMIN ORAL (16 sources) MULTIVITAMIN ORA L Take by mouth once daily. Active MULTIVITAMIN ORA L Take by mouth once daily. 0 Active Comment on above: Take by mouth once d aily. Multivitamin preparation (13 sources) Start: 01-28-2023 take 1 tablet by mouth once daily Multivitamin Dose = 1 tab(s), Oral, Daily, 0 Refill(s) Start Date: 01/28/23 Status: Ordered Start: 07-01-2021 take 1 tablet by shanon th once daily Multivitamin Active 1 TABLET PO DAILY June 30, 2021 11:00pm Start: 07-01-2021 take 1 tablet by shanon th once daily Multivitamin Active 1 TABLET PO DAILY July 01, 2021 12:00am Osteo Bi-Flex Advanced oral tablet (2 sources) Start: 01-28-2023 take 1 tablet by mouth once daily at mealtime Osteo Bi-Flex Advanced oral tablet Dose = 1 tab(s), Oral, Daily, 0 Refill(s), Take with food Start Date: 01/28/23 Status: Ordered OXYGEN, HOME THERAPY, (15 sources) OXYGEN, HOME THE RAPY, 3 L/min by Nasal Cannula route as directed. Uses 3L via nasal cannula daily and at 4L via Nasal cannula at night Active OXYGEN, HOME THE RAPY, 3 L/min by Nasal Cannula route as directed. Uses 3L via nasal cannula daily and at 4L via Nasal cannula at night 0 Active Comment on above: 3 L/min by Nasal Can nula route as directed. Uses 3L via nasal cannula daily and at 4L via Nasal cannula at night RABEprazole sodium 20 mg delayed release oral tablet (15 sources) Proton Pump Inhibitor Start: 02-28-2025 End: 03-14-2025 raNITIdine 150 mg oral tablet (17 sources) Histamine-2 Receptor Antagonist take 1 tablet by mouth twice daily ranitidine 150 mg tablet Take 150 mg by mouth twice daily. Active Comment on above: Take 150 mg by mouth twice daily. rollator walker with seat (3 sources) Start: 11-05-2023 rollator walker with seat Active 0 .Route .MEDSUPPLY 1 November 05, 2023 2:27pm Patient needs walking assistance due to debilitation. Foot drop, COPD, and syncopal episodes. Start: 10-22-2023 End: 11-05-2023 rollator walker with seat Di scontinued 0 .Route .MEDSUPPLY 1 October 22, 2023 12:00am November 05, 2023 2:27pm Patient needs walking assistance due to debilitation. Start: 10-22-2023 rollator walke r with seat Active 0 .Route .MEDSUPPLY 1 October 22, 2023 12:00am Patient needs walking assistance due to debilitation. Walker misc (16 sources) Walker misc Roll ator walker with seat Active Walker misc Roll ator walker with seat 0 Active Comment on above: Rollator walker with seat zolpidem tartrate 10 mg oral tablet (17 sources) gamma-Aminobutyric Acid-ergic Agonist zolpidem 10 mg tab Take by mouth at bedtime as needed. Active Comment on above: Take by mouth at bed time as needed. (20 sources) Start: 04-20-2025 Start: 02-26-2025 Start: 11-09-2024 Start: 11-05-2023 Start: 10-22-2023 End: 11-05-2023 Start: 01-12-2023 Start: 07-01-2021 End: 05-16-2023 Start: 07-01-2021 Start: 12-27-2017 End: 06-02-2020 Start: 12-27-2017 End: 09-30-2018 Completed/Discontinued Medications Medication Drug Class(es) Dates Sig (Normalized) Sig (Original) acetaminophen 325 mg / HYDROcodone bitartrate 10 mg oral tablet (20 sources) Opioid Agonist Start: 12-31-2023 End: 07-01-2024 Start: 12-31-2023 End: 02-05-2024 Start: 10-03-2023 End: 11-20-2023 take 1 tablet by mouth three times daily Hydrocodone-Acetaminophen Active 1 TABLET PO THREE TIMES A DAY 90 November 20, 2023 Start: 09-23-2023 End: 12-20-2023 Start: 09-23-2023 End: 12-20-2023 Start: 09-23-2023 End: 10-03-2023 take 1 tablet by mouth every four hours Hydrocodone-Acetaminophen Discontinued 1 TABLET PO Q4H 180 September 23, 2023 October 03, 2023 10:51am Start: 07-23-2023 End: 08-22-2023 Start: 07-23-2023 End: 08-22-2023 Start: 07-23-2023 End: 08-22-2023 take 1 tablet by mouth every four hours Hydrocodone-Acetaminophen Discontinued 1 TABLET PO Q4H 180 July 23, 2023 August 22, 2023 12:05am Start: 05-16-2023 End: 06-15-2023 take 1 tablet by mouth every four hours Hydrocodone-Acetaminophen Discontinued 1 TABLET PO Q4H 180 May 16, 2023 June 14, 2023 11:12pm Start: 05-16-2023 End: 06-15-2023 Start: 05-16-2023 End: 06-15-2023 Start: 03-26-2023 End: 04-23-2023 take 1 tablet by mouth every six hours Hydrocodone-Acetaminophen Discontinued 1 TABLET PO EVERY 6 HOURS 120 March 26, 2023 April 22, 2023 11:03pm Start: 02-12-2023 End: 04-23-2023 Start: 02-12-2023 End: 04-23-2023 Start: 02-12-2023 End: 03-26-2023 take 1 tablet by mouth every eight hours Hydrocodone-Acetaminophen Discontinued 1 TABLET PO Q8H 90 March 13, 2023 March 26, 2023 12:12pm Start: 01-30-2023 End: 02-02-2023 [place] 325- 5 mg oral tablet Dose = 1 tab(s), Oral, BID, PRN PRN Pain, scale 4-10, X 3 day(s), # 5 tab(s), 0 Refill(s), Chronic pain, 68.1 Start Date: 01/30/23 Stop Date: 02/02/23 Status: Ordered Start: 10-11-2022 End: 02-09-2023 Start: 10-11-2022 End: 02-09-2023 Start: 10-11-2022 End: 02-09-2023 take 1 tablet by mouth four times daily Hydrocodone-Acetaminophen Discontinued 1 TABLET PO 4 TIMES DAILY 120 January 10, 2023 February 08, 2023 11:13pm Start: 09-07-2022 End: 10-07-2022 Start: 09-07-2022 End: 10-07-2022 Start: 09-07-2022 End: 10-07-2022 take 1 tablet by mouth four times daily Hydrocodone-Acetaminophen Discontinued 1 TABLET PO 4 TIMES DAILY 120 September 07, 2022 October 07, 2022 12:04am Start: 08-01-2022 End: 08-31-2022 Start: 08-01-2022 End: 08-31-2022 Start: 08-01-2022 End: 08-31-2022 take 1 tablet by mouth four times daily Hydrocodone-Acetaminophen Discontinued 1 TABLET PO 4 TIMES DAILY 120 August 01, 2022 August 31, 2022 12:04am Start: 05-31-2022 End: 07-27-2022 Start: 05-31-2022 End: 07-27-2022 Start: 05-31-2022 End: 07-27-2022 take 1 tablet by mouth four times daily Hydrocodone-Acetaminophen Discontinued 1 TABLET PO 4 TIMES DAILY 120 June 27, 2022 July 26, 2022 11:04pm Start: 04-27-2022 End: 05-27-2022 Start: 04-27-2022 End: 05-27-2022 Start: 04-27-2022 End: 05-27-2022 take 1 tablet by mouth four times daily Hydrocodone-Acetaminophen Discontinued 1 TABLET PO 4 TIMES DAILY 120 April 27, 2022 May 26, 2022 11:04pm Start: 03-27-2022 End: 04-26-2022 Start: 03-27-2022 End: 04-26-2022 Start: 03-27-2022 End: 04-26-2022 take 1 tablet by mouth four times daily Hydrocodone-Acetaminophen Discontinued 1 TABLET PO 4 TIMES DAILY 120 March 27, 2022 April 25, 2022 11:03pm Start: 11-26-2021 End: 03-22-2022 Start: 11-26-2021 End: 03-22-2022 Start: 11-26-2021 End: 03-22-2022 take 1 tablet by mouth four times daily Hydrocodone-Acetaminophen Discontinued 1 TABLET PO 4 TIMES DAILY 120 February 20, 2022 March 21, 2022 11:03pm Start: 08-29-2021 End: 11-24-2021 Start: 08-29-2021 End: 11-24-2021 Start: 08-29-2021 End: 11-24-2021 take 1 tablet by mouth four times daily Hydrocodone-Acetaminophen Discontinued 1 TABLET PO 4 TIMES DAILY 120 September 27, 2021 October 25, 2021 11:08am Start: 07-27-2021 End: 08-26-2021 Start: 07-27-2021 End: 08-26-2021 Start: 07-27-2021 End: 08-26-2021 take 1 tablet by mouth four times daily Hydrocodone-Acetaminophen Discontinued 1 TABLET PO 4 TIMES DAILY 120 July 27, 2021 August 26, 2021 12:01am Start: 04-23-2021 End: 07-23-2021 Start: 04-23-2021 End: 07-23-2021 Start: 04-23-2021 End: 07-23-2021 take 1 tablet by mouth four times daily Hydrocodone-Acetaminophen Discontinued 1 TABLET PO .qid 120 June 23, 2021 July 22, 2021 11:01pm Start: 04-18-2021 End: 04-18-2021 Start: 04-18-2021 End: 04-18-2021 Start: 04-18-2021 End: 04-18-2021 Start: 04-18-2021 End: 04-18-2021 Start: 04-18-2021 End: 04-18-2021 Start: 04-18-2021 End: 04-18-2021 Start: 04-18-2021 End: 04-18-2021 Start: 04-18-2021 End: 04-18-2021 Start: 04-18-2021 End: 04-18-2021 Start: 04-18-2021 End: 04-18-2021 Start: 04-18-2021 End: 04-18-2021 Start: 04-18-2021 End: 04-18-2021 Start: 04-18-2021 End: 04-18-2021 Start: 04-18-2021 End: 04-18-2021 Start: 04-18-2021 End: 04-18-2021 Start: 04-18-2021 End: 04-18-2021 Start: 04-18-2021 End: 04-18-2021 Start: 04-18-2021 End: 04-18-2021 Start: 04-18-2021 End: 04-18-2021 Start: 04-18-2021 End: 04-18-2021 Start: 04-18-2021 End: 04-18-2021 Start: 04-18-2021 End: 04-18-2021 Start: 04-18-2021 End: 04-18-2021 Start: 04-18-2021 End: 04-18-2021 Start: 04-18-2021 End: 04-18-2021 Start: 04-18-2021 End: 04-18-2021 Start: 04-18-2021 End: 04-18-2021 take 1 tablet by mouth every six hours Hydrocodone-Acetaminophen Discontinued 1 TABLET PO EVERY 6 HOURS 120 April 18, 2021 April 18, 2021 11:34am Start: 04-18-2021 End: 04-18-2021 take 1 tablet by mouth every six hours Hydrocodone-Acetaminophen Discontinued 1 TABLET PO EVERY 6 HOURS 120 April 18, 2021 April 18, 2021 11:34am Start: 04-18-2021 End: 04-18-2021 take 1 tablet by mouth every six hours Hydrocodone-Acetaminophen Discontinued 1 TABLET PO EVERY 6 HOURS 120 April 18, 2021 April 18, 2021 11:34am Start: 04-18-2021 End: 04-18-2021 take 1 tablet by mouth every six hours Hydrocodone-Acetaminophen Discontinued 1 TABLET PO EVERY 6 HOURS 120 April 18, 2021 April 18, 2021 11:34am Start: 04-18-2021 End: 04-18-2021 take 1 tablet by mouth every six hours Hydrocodone-Acetaminophen Discontinued 1 TABLET PO EVERY 6 HOURS 120 April 18, 2021 April 18, 2021 11:34am Start: 04-18-2021 End: 04-18-2021 take 1 tablet by mouth every six hours Hydrocodone-Acetaminophen Discontinued 1 TABLET PO EVERY 6 HOURS 120 April 18, 2021 April 18, 2021 11:34am Start: 04-18-2021 End: 04-18-2021 take 1 tablet by mouth every six hours Hydrocodone-Acetaminophen Discontinued 1 TABLET PO EVERY 6 HOURS 120 April 18, 2021 April 18, 2021 12:34pm Start: 04-18-2021 End: 04-18-2021 Start: 04-18-2021 End: 04-18-2021 take 1 tablet by mouth every six hours Hydrocodone-Acetaminophen Discontinued 1 TABLET PO EVERY 6 HOURS 120 April 18, 2021 April 18, 2021 12:34pm Start: 04-18-2021 End: 04-18-2021 take 1 tablet by mouth every six hours Hydrocodone-Acetaminophen Discontinued 1 TABLET PO EVERY 6 HOURS 120 April 18, 2021 April 18, 2021 12:34pm Start: 04-18-2021 End: 04-18-2021 take 1 tablet by mouth every six hours Hydrocodone-Acetaminophen Discontinued 1 TABLET PO EVERY 6 HOURS 120 April 18, 2021 April 18, 2021 12:34pm Start: 04-18-2021 End: 04-18-2021 take 1 tablet by mouth every six hours Hydrocodone-Acetaminophen Discontinued 1 TABLET PO EVERY 6 HOURS 120 April 18, 2021 April 18, 2021 12:34pm Start: 05-12-2019 End: 04-15-2021 Start: 05-12-2019 End: 04-15-2021 Start: 05-12-2019 End: 04-15-2021 take 1 tablet by mouth every six hours Hydrocodone-Acetaminophen Discontinued 1 TABLET PO EVERY 6 HOURS 120 March 16, 2021 April 14, 2021 11:01pm Start: 05-11-2019 End: 04-15-2019 Start: 05-11-2019 End: 04-15-2019 Start: 05-11-2019 End: 04-15-2019 Start: 05-11-2019 End: 04-15-2019 Start: 05-11-2019 End: 04-15-2019 Start: 05-11-2019 End: 04-15-2019 Start: 05-11-2019 End: 04-15-2019 Start: 05-11-2019 End: 04-15-2019 Start: 05-11-2019 End: 04-15-2019 Start: 05-11-2019 End: 04-15-2019 Start: 05-11-2019 End: 04-15-2019 Start: 05-11-2019 End: 04-15-2019 Start: 05-11-2019 End: 04-15-2019 Start: 05-11-2019 End: 04-15-2019 Start: 05-11-2019 End: 04-15-2019 Start: 05-11-2019 End: 04-15-2019 Start: 05-11-2019 End: 04-15-2019 Start: 05-11-2019 End: 04-15-2019 Start: 05-11-2019 End: 04-15-2019 Start: 05-11-2019 End: 04-15-2019 Start: 05-11-2019 End: 04-15-2019 Start: 05-11-2019 End: 04-15-2019 Start: 05-11-2019 End: 04-15-2019 Start: 05-11-2019 End: 04-15-2019 Start: 05-11-2019 End: 04-15-2019 Start: 05-11-2019 End: 04-15-2019 Start: 05-11-2019 End: 04-15-2019 take 1 tablet by mouth every six hours Hydrocodone-Acetaminophen Discontinued 1 TABLET PO EVERY 6 HOURS 120 May 11, 2019 April 15, 2019 7:48am Start: 05-11-2019 End: 04-15-2019 take 1 tablet by mouth every six hours Hydrocodone-Acetaminophen Discontinued 1 TABLET PO EVERY 6 HOURS 120 May 11, 2019 April 15, 2019 7:48am Start: 05-11-2019 End: 04-15-2019 take 1 tablet by mouth every six hours Hydrocodone-Acetaminophen Discontinued 1 TABLET PO EVERY 6 HOURS 120 May 11, 2019 April 15, 2019 7:48am Start: 05-11-2019 End: 04-15-2019 take 1 tablet by mouth every six hours Hydrocodone-Acetaminophen Discontinued 1 TABLET PO EVERY 6 HOURS 120 May 11, 2019 April 15, 2019 7:48am Start: 05-11-2019 End: 04-15-2019 take 1 tablet by mouth every six hours Hydrocodone-Acetaminophen Discontinued 1 TABLET PO EVERY 6 HOURS 120 May 11, 2019 April 15, 2019 7:48am Start: 05-11-2019 End: 04-15-2019 take 1 tablet by mouth every six hours Hydrocodone-Acetaminophen Discontinued 1 TABLET PO EVERY 6 HOURS 120 May 11, 2019 April 15, 2019 7:48am Start: 05-11-2019 End: 04-15-2019 take 1 tablet by mouth every six hours Hydrocodone-Acetaminophen Discontinued 1 TABLET PO EVERY 6 HOURS 120 May 11, 2019 April 15, 2019 8:48am Start: 05-11-2019 End: 04-15-2019 Start: 05-11-2019 End: 04-15-2019 take 1 tablet by mouth every six hours Hydrocodone-Acetaminophen Discontinued 1 TABLET PO EVERY 6 HOURS 120 May 11, 2019 April 15, 2019 8:48am Start: 05-11-2019 End: 04-15-2019 take 1 tablet by mouth every six hours Hydrocodone-Acetaminophen Discontinued 1 TABLET PO EVERY 6 HOURS 120 May 11, 2019 April 15, 2019 8:48am Start: 05-11-2019 End: 04-15-2019 take 1 tablet by mouth every six hours Hydrocodone-Acetaminophen Discontinued 1 TABLET PO EVERY 6 HOURS 120 May 11, 2019 April 15, 2019 8:48am Start: 05-11-2019 End: 04-15-2019 take 1 tablet by mouth every six hours Hydrocodone-Acetaminophen Discontinued 1 TABLET PO EVERY 6 HOURS 120 May 11, 2019 April 15, 2019 8:48am Start: 04-15-2019 End: 05-12-2019 Start: 04-15-2019 End: 05-12-2019 Start: 04-15-2019 End: 05-12-2019 take 1 tablet by mouth every six hours Hydrocodone-Acetaminophen Discontinued 1 TABLET PO EVERY 6 HOURS 120 April 15, 2019 May 12, 2019 10:10am Start: 12-18-2018 End: 04-03-2019 Start: 12-18-2018 End: 04-03-2019 Start: 12-18-2018 End: 04-03-2019 take 1 tablet by mouth every six hours Hydrocodone-Acetaminophen Discontinued 1 TABLET PO EVERY 6 HOURS 120 March 12, 2019 April 03, 2019 2:03pm Start: 07-22-2018 End: 12-15-2018 Start: 07-22-2018 End: 12-15-2018 Start: 07-22-2018 End: 12-15-2018 take 1 tablet by mouth every six hours Hydrocodone-Acetaminophen Discontinued 1 TABLET PO EVERY 6 HOURS 120 November 19, 2018 December 15, 2018 11:57am Start: 06-19-2018 End: 06-19-2018 Start: 06-19-2018 End: 06-19-2018 Start: 06-19-2018 End: 06-19-2018 take 1 tablet by mouth every six hours Hydrocodone-Acetaminophen Discontinued 1 TABLET PO EVERY 6 HOURS 120 June 19, 2018 June 19, 2018 7:30am Start: 12-27-2017 End: 07-22-2018 Start: 12-27-2017 End: 07-22-2018 Start: 12-27-2017 End: 07-22-2018 take 1 tablet by mouth every six hours Hydrocodone-Acetaminophen Discontinued 1 TABLET PO EVERY 6 HOURS 120 June 19, 2018 July 22, 2018 8:11am HYDROCODONE/ACET AMINOPHEN (VICODIN ES ORAL) Take 10-325 mg by mouth three times a day. 325 mg 4 x daily Active HYDROCODONE/ACET AMINOPHEN (VICODIN ES ORAL) Take 10-325 mg by mouth three times a day. 325 mg 4 x daily 0 Active HYDROCODONE/ACET AMINOPHEN (VICODIN ES ORAL) Take by mouth. 325 mg 4 x daily 0 Active Comment on above: Take by mouth. 325 m g 4 x daily Take 10-325 mg by mo uth three times a day. 325 mg 4 x daily [id number] 200 actuat albuterol 0.09 mg/actuat metered dose inhaler (20 sources) beta2-Adrenergic Agonist Start: 10-22-2023 take 2 puff(s) by mouth every six hours as needed Albuterol Sulfate Active 0 .ROUTE .COMPLEX 8.5 October 22, 2023 8:51am INHALE TWO PUFFS BY MOUTH EVERY 6 HOURS NEEDED Start: 05-19-2021 take 2 puff(s) by in halation every six hours as needed albuterol 90 mcg/inh inhalation powder 2 puff(s), Inhalation, q6h, PRN as needed, # 1 EA, 0 Refill(s) Start Date: 05/19/21 Status: Ordered Start: 08-07-2019 End: 03-12-2025 Start: 08-07-2019 End: 10-22-2023 Start: 08-07-2019 End: 10-22-2023 take 1 puff(s) by inhalation every six hours Albuterol Sulfate (Ventolin Hfa) 90 mcg/actuation HFA aerosol inhaler Discontinued 2 PUFF INHALATION EVERY 6 HOURS 8.5 June 14, 2023 12:29pm October 03, 2023 10:51am Start: 09-30-2018 End: 08-07-2019 Start: 09-30-2018 End: 08-07-2019 Start: 09-30-2018 End: 08-07-2019 take 1 puff(s) by inhalation every six hours Albuterol Sulfate (Ventolin Hfa) 90 mcg/actuation HFA aerosol inhaler Discontinued 2 PUFF INHALATION EVERY 6 HOURS 8.5 October 31, 2018 10:06am August 07, 2019 8:28am Start: 06-19-2018 End: 09-30-2018 Start: 06-19-2018 End: 09-30-2018 Start: 06-19-2018 End: 09-30-2018 take 1 puff(s) by inhalation every six hours Albuterol Sulfate (Ventolin Hfa) 90 mcg/actuation HFA aerosol inhaler Discontinued 2 PUFF INHALATION EVERY 6 HOURS 8.5 June 19, 2018 7:24am September 30, 2018 8:54am Start: 12-27-2017 End: 06-19-2018 Start: 12-27-2017 End: 06-19-2018 Start: 12-27-2017 End: 06-19-2018 take 1 puff(s) by inhalation every six hours Albuterol Sulfate (Ventolin Hfa) 90 mcg/actuation HFA aerosol inhaler Discontinued 2 PUFF INHALATION EVERY 6 HOURS December 26, 2017 11:00pm June 19, 2018 7:25am Start: 04-26-2015 take 2 puff(s) by in halation every four hours as needed for wheezing albuterol HFA (PROAIR HFA) 90 mcg/actuation inhaler Indications: Acute bronchitis, unspecified organism Inhale 2 Puffs as instructed every 4 hours as needed for Wheezing/Shortness of Breath. 1 Inhaler 0 04/26/2015 Active Comment on above: Inhale 2 Puffs as in structed every 4 hours as needed for Wheezing/Shortness of Breath. albuterol 0.833 mg/ml / ipratropium bromide 0.167 mg/ml inhalation solution (20 sources) Anticholinergic, beta2-Adrenergic Agonist Start: 023 End: take 1 mL by inhalation twice daily Ipratropium-Albut constantino Active 3 ML INHALATION TWICE A DAY 180 October 22, 2023 1:14pm Start: 08-01-2023 End: 03-16-2025 Start: 08-01-2023 End: 10-22-2023 Start: 08-01-2023 End: 10-03-2023 take 1 mL by inhalation every four hours Ipratropium-Albuterol Discontinued 3 ML INHALATION Q4H 180 July 31, 2023 11:00pm October 03, 2023 10:51am take 3 mL by inhalat ion twice daily ipratropium-albuterol (DUONEB) 0.5 mg-3 mg(2.5 mg base)/3 mL nebu Inhale 3 mL as instructed two times a day. Active Comment on above: Inhale 3 mL as instr ucted two times a day. amoxicillin 500 mg oral caps ule (20 sources) Penicillin-class Antibacterial Start: 01-20-2020 End: 04-13-2020 atenolol 50 mg oral tablet (20 sources) beta-Adrenergic Danitza Start: 12-27-2017 End: 02-23-2025 Comment on above: Take 50 mg by mouth once daily. atropine sulfate 0.025 mg / diphenoxylate hydrochloride 2.5 mg oral tablet (20 sources) Anticholinergic, Cholinergic Muscarinic Antagonist, Antidiarrheal Start: 01-18-2021 End: 04-23-2021 Start: 01-18-2021 End: 04-23-2021 Start: 01-18-2021 End: 04-23-2021 take 1 tablet by mouth three times daily Diphenoxylate-Atropine (Lomotil) 2.5-0.025 mg tablet Discontinued 1 TABLET PO THREE TIMES A DAY January 18, 2021 8:09am April 23, 2021 2:04pm Start: 04-20-2020 End: 10-20-2020 Start: 04-20-2020 End: 10-20-2020 Start: 04-20-2020 End: 10-20-2020 take 1 tablet by mouth three times daily Diphenoxylate-Atropine (Lomotil) 2.5-0.025 mg tablet Discontinued 1 TABLET PO THREE TIMES A DAY 60 June 14, 2020 3:33pm October 20, 2020 8:34am budesonide 3 mg delayed release oral capsule (20 sources) Corticosteroid Start: 02-10-2024 End: 10-20-2024 cephalexin 500 mg oral capsule (1 source) Cephalosporin Antibacterial Start: 02-28-2024 End: 02-28-2024 cephALEXin 500 mg cap(s) (KEFLEX) Start: 02-28-2024 End: 02-28-2024 cephALEXin 500 mg cap(s) (KE FLEX) chlor tabs (11 sources) Start: 12-27-2017 End: 06-02-2020 chlor tabs Discontinued PO [facility] 2017 11:00pm June 02, 2020 1:18pm Start: 12-27-2017 End: 06-02-2020 chlor tabs Discontinued PO [facility] 2017 12:00am June 02, 2020 2:18pm cyclobenzaprine hydrochlorid e 5 mg oral tablet (20 sources) Muscle Relaxant Start: 07-01-2021 End: 08-20-2023 Start: 01-20-2020 End: 05-18-2021 Start: 11-04-2019 End: 01-20-2020 Start: 12-27-2017 End: 11-04-2019 Comment on above: Take 10 mg by mouth three times daily as needed. Take 10 mg by mouth three times a day as needed. dapsone 100 mg oral tablet (17 sources) Sulfone Start: 10-20-2024 End: 01-26-2025 dexamethasone 4 mg oral tabl et (20 sources) Corticosteroid Start: 07-06-2021 End: 07-27-2021 dicyclomine hydrochloride 10 mg oral capsule (20 sources) Anticholinergic Start: 04-13-2020 End: 06-02-2020 diphenhydrAMINE hydrochlorid e 25 mg oral capsule (20 sources) Histamine-1 Receptor Antagonist Start: 12-27-2017 End: 09-30-2018 Start: 12-27-2017 End: 09-30-2018 Start: 12-27-2017 End: 09-30-2018 take 25 mg by mouth once Diphenhydramine Hcl Disconti nued 25 MG PO ONCE December 26, 2017 11:00pm September 30, 2018 8:36am docusate sodium 100 mg oral capsule (20 sources) Start: 05-30-2021 End: 08-01-2023 Start: 05-30-2021 End: 02-12-2023 take 1 capsule by mouth three times daily Docusate Sodium (Colace) 100 mg capsule Discontinued 100 MG PO THREE TIMES A DAY May 31, 2021 11:00pm February 12, 2023 1:31pm Comment on above: Take 100 mg by mouth once daily. gabapentin 300 mg oral capsule (20 sources) Anti-epileptic Agent Start: 01-30-2023 gabapentin 300 mg oral capsule Dose : 300 mg = 1 cap(s), Oral, BID, 0 Refill(s), 68.1 Start Date: 01/30/23 Status: Ordered Start: 12-27-2017 End: 02-12-2023 Comment on above: Take 600 mg by mouth three times daily. Take 600 mg by mouth three times a day. green tea leaf extract capsule (11 sources) Start: 12-27-2017 End: 09-30-2018 green tea leaf extract capsule Discontinued CAP PO December 26, 2017 11:00pm September 30, 2018 8:36am Start: 12-27-2017 End: 09-30-2018 green tea leaf extract capsu le Discontinued CAP PO December 27, 2017 12:00am September 30, 2018 9:36am 12 hr guaiFENesin 1200 mg ex tended release oral tablet (20 sources) Start: 05-16-2021 End: 05-18-2021 levoFLOXacin 750 mg oral tab let (20 sources) Quinolone Antimicrobial Start: 01-16-2023 End: 01-24-2023 Start: 05-05-2021 End: 05-10-2021 lidocaine hydrochloride 0.02 mg/mg topical gel (3 sources) Antiarrhythmic, Amide Local Anesthetic Start: 03-30-2024 End: 03-30-2024 lidocaine urojet 2 % 6 mL topical gel (GLYDO) Start: 02-27-2024 End: 02-28-2024 lidocaine urojet 2 % 11 mL t opical gel (GLYDO) lisinopril 10 mg oral tablet (20 sources) Angiotensin Converting Enzyme Inhibitor Start: 11-06-2023 End: 12-11-2023 Start: 11-06-2023 End: 12-11-2023 Start: 11-06-2023 Lisinopril Act eddie 10 MG PO 1600 90 November 06, 2023 3:38pm Start: 11-06-2023 End: 11-06-2023 Lisinopril Discontinued 10 M G PO 1600 November 06, 2023 3:38pm November 06, 2023 3:40pm Start: 03-26-2023 End: 11-06-2023 meloxicam 15 mg oral tablet (20 sources) Nonsteroidal Anti-inflammatory Drug Start: 01-30-2023 Mobic 7.5 mg oral tablet Dose : 15 mg = 2 tab(s), Oral, qDay, 0 Refill(s) Start Date: 01/30/23 Status: Ordered Start: 01-14-2023 End: 08-27-2023 Start: 07-17-2022 End: 01-12-2023 mesalamine 1200 mg delayed r elease oral tablet (13 sources) Aminosalicylate Start: 01-27-2025 End: 02-26-2025 mirtazapine 30 mg oral table t (20 sources) Start: 03-26-2023 End: 04-03-2023 Start: 03-26-2023 End: 04-03-2023 Start: 03-26-2023 End: 04-03-2023 take 1 tablet by mouth at bedtime Mirtazapine (Remeron) 30 mg tablet Discontinued 30 MG PO AT BEDTIME March 25, 2023 11:00pm April 03, 2023 8:53am nystatin [id number] unt/ml oral suspension (17 sources) Polyene Antifungal Start: 08-14-2024 End: 10-20-2024 [place]-3 Fatty Acids (20 sources) Start: 12-27-2017 End: 10-21-2019 [place]-3 Fatty Acids Discontinued MG PO December 26, 2017 11:00pm October 21, 2019 12:54pm Start: 12-27-2017 End: 10-21-2019 Start: 12-27-2017 End: 10-21-2019 [place]-3 Fatty Acids Disconti nued MG PO December 27, 2017 12:00am October 21, 2019 1:54pm ondansetron 4 mg disintegrat ing oral tablet (20 sources) Serotonin-3 Receptor Antagonist Start: 01-12-2023 End: 02-12-2023 pantoprazole 40 mg delayed release oral tablet (20 sources) Proton Pump Inhibitor Start: 12-27-2017 End: 03-14-2025 Start: 12-27-2017 End: 12-11-2023 pantoprazole 40 mg oral ente good coated tablet Dose : 40 mg = 1 tab(s), Oral, qDayAC, 0 Refill(s) Start Date: 05/19/21 Status: Ordered Comment on above: Take 40 mg by mouth two times a day. polyethylene glycol 3350 170 00 mg powder for oral solution (20 sources) Osmotic Laxative Start: 06-01-2021 End: 07-27-2021 pravastatin sodium 40 mg ora l tablet (20 sources) HMG-CoA Reductase Inhibitor Start: 12-27-2017 End: 02-28-2025 Comment on above: Take 40 mg by mouth daily at bedtime. predniSONE 10 mg oral tablet (20 sources) Start: 04-26-2015 End: 01-23-2024 Comment on above: Take 4 tablets daily for 2 days, 2 tablets daily for 2 days, 1 tablet daily for 2 days tamsulosin hydrochloride 0.4 mg oral capsule (20 sources) alpha-Adrenergic Danitza Start: 12-11-2023 End: 10-20-2024 Comment on above: Take 0.4 mg by mouth once daily. traZODone hydrochloride 100 mg oral tablet (20 sources) Serotonin Reuptake Inhibitor Start: 07-23-2023 End: 04-20-2025 Start: 12-27-2017 End: 03-26-2023 Comment on above: Take 100 mg by mouth daily at bedtime. valsartan 160 mg oral tablet (20 sources) Angiotensin 2 Receptor Danitza Start: 01-24-2023 End: 02-12-2023 24 hr venlafaxine 150 mg extended release oral capsule (20 sources) Serotonin and Norepinephrine Reuptake Inhibitor Start: 11-25-2019 End: 03-26-2023 Start: 12-27-2017 End: 11-25-2019 Comment on above: Take 150 mg by mouth once daily. Vitamin B Complex (11 sources) Start: 07-01-2021 End: 05-16-2023 take 1 tablet by mouth once daily Vitamin B Complex Discontinued 1 TABLET PO DAILY June 30, 2021 11:00pm May 16, 2023 10:25am Start: 07-01-2021 End: 05-16-2023 take 1 tablet by mouth once daily Vitamin B Complex Discontinued 1 TABLET PO DAILY July 01, 2021 12:00am May 16, 2023 11:25am Start: 07-01-2021 take 1 tablet by shanon th once daily Vitamin B Complex Active 1 TABLET PO DAILY July 01, 2021 12:00am Problems Active Problems Problem Classification Problem Date Documented Da te Episodic/Chronic Abdominal pain (20 sources) Left lower quadrant pain; Translations: [Left lower quadrant pain] 09-26-2023 Episodic Acquired foot deformities (20 sources) Foot-drop; Translations: [Foot drop, unspecified foot] 05-16-2023 Episodic Acute and unspecified renal failure (20 sources) Acute renal failure syndrome; Translations: [Acute kidney failure, unspecified] 12-03-2023 Episodic Aortic; peripheral; and visceral artery aneurysms (20 sources) Aortic root dilatation; Translations: [Thoracic aortic ectasia] Onset: 5 07-01-2024 Chronic Biliary tract disease (20 sources) Acquired dilation of bile duct; Translations: [Other specified diseases of biliary tract] 01-27-2025 Chronic Cardiac dysrhythmias (20 sources) Ventricular arrhythmia; Translations: [Ventricular premature depolarization] 07-01-2021 Chronic Chronic obstructive pulmonary disease and bronchiectasis (20 sources) Chronic obstructive lung disease; Translations: [Chronic obstructive pulmonary disease, unspecified] Onset: 3 10-20-2020 Chronic Deficiency and other anemia (20 sources) Macrocytic anemia; Translations: [Nutritional anemia, unspecified] 10-20-2020 Episodic Diseases of white blood cells (20 sources) Leukocytosis; Translations: [Elevated white blood cell count, unspecified] Onset: 3 05-13-2021 Chronic Disorders of lipid metabolism (20 sources) Hyperlipidemia; Translations: [Hyperlipidemia, unspecified] Onset: 4 01-06-2019 Chronic Disorders of teeth and jaw (8 sources) Denture unstable; Translations: [Other specified disorders of teeth and supporting structures] 07-20-2020 Episodic Esophageal disorders (20 sources) Gastroesophageal reflux disease; Translations: [Gastro-esophageal reflux disease without esophagitis] Onset: 5 12-27-2017 Chronic Essential hypertension (20 sources) Hypertensive disorder; Translations: [Essential (primary) hypertension] Onset: 4 Chronic Fluid and electrolyte disorders (20 sources) Dehydration; Translations: [Dehydration] 01-12-2023 Episodic Gastroduodenal ulcer (except hemorrhage) (20 sources) Gastric ulcer; Translations: [Gastric ulcer, unspecified as acute or chronic, without hemorrhage or perforation] Onset: 4 02-07-2024 Chronic Gastroduodenal ulcer (except hemorrhage) (20 sources) H/O: gastric ulcer; Translations: [Personal history of peptic ulcer disease] 12-27-2017 Episodic Heart valve disorders (20 sources) Heart murmur; Translations: [Cardiac murmur, unspecified] 10-21-2019 Episodic Hyperplasia of prostate (20 sources) Benign prostatic hypertrophy with outflow obstruction; Translations: [Benign prostatic hyperplasia with lower urinary tract symptoms] Onset: 4 03-30-2024 Chronic Malaise and fatigue (20 sources) Asthenia; Translations: [Weakness] Onset: 3 07-14-2021 Episodic Miscellaneous mental health disorders (20 sources) Chronic insomnia; Translations: [Psychophysiologic insomnia] 12-27-2017 Chronic Mood disorders (20 sources) Depressive disorder; Translations: [Depression] Onset: 4 05-07-2021 Chronic Mycoses (20 sources) Candidiasis of mouth; Translations: [Candidal stomatitis] 09-25-2024 Episodic Nausea and vomiting (20 sources) Nausea and vomiting; Translations: [Nausea with vomiting, unspecified] 01-12-2023 Episodic Nutritional deficiencies (4 sources) Deficiency of other specified B group vitamins; Translations: [Other B-complex deficiencies] 11-22-2022 Episodic Open wounds of head; neck; and trunk (20 sources) Tear of skin; Translations: [Open wound(s) (multiple) of unspecified site(s), without mention of complication] 02-24-2025 Episodic Osteoarthritis (20 sources) Arthritis; Translations: [Unspecified osteoarthritis, unspecified site] 12-27-2017 Chronic Other circulatory disease (20 sources) Orthostatic hypotension; Translations: [Orthostatic hypotension] 05-18-2021 Episodic Other connective tissue disease (1 source) Recurrent falls ; Translations: [Repeated falls] Onset: 3 Episodic Other gastrointestinal disorders (20 sources) Irritable bowel syndrome; Translations: [Irritable bowel syndrome without diarrhea] 12-27-2017 Chronic Other gastrointestinal disorders (20 sources) Celiac disease; Translations: [Celiac disease] 11-17-2024 Chronic Other gastrointestinal disorders (2 sources) Celiac disease; Translations: [Celiac disease] Onset: 5 Chronic Other gastrointestinal disorders (20 sources) Diarrhea; Translations: [Diarrhea, unspecified] 01-12-2023 Episodic Other gastrointestinal disorders (20 sources) Stool finding; Translations: [Other fecal abnormalities] 11-23-2024 Episodic Other inflammatory condition of skin (20 sources) Itching of skin; Translations: [Pruritus, unspecified] 10-20-2024 Episodic Other inflammatory condition of skin (1 source) Pruritus, unspecified; Translations: [Pruritus, unspecified] Onset: Episodic Other liver diseases (4 sources) Elevated liver enzymes level; Translations: [Abnormal levels of other serum enzymes] 01-24-2023 Episodic Other liver diseases (1 source) Abnormal levels of other serum enzymes; Translations: [Other nonspecific abnormal serum enzyme levels] 01-24-2023 Episodic Other lower respiratory disease (20 sources) H/O: respiratory disease; Translations: [Personal history of other diseases of the respiratory system] 09-14-2021 Episodic Other lower respiratory disease (8 sources) H/O: pneumonia; Translations: [Personal history of pneumonia (recurrent)] 12-27-2017 Episodic Other lower respiratory disease (20 sources) Hypoxia; Translations: [Hypoxemia] 09-14-2021 Episodic Other lower respiratory disease (8 sources) Personal history of other diseases of the respiratory system; Translations: [Personal history of other diseases of respiratory system] 10-17-2022 Episodic Other lower respiratory disease (20 sources) Dyspnea on exertion; Translations: [Shortness of breath] 09-13-2023 Episodic Other lower respiratory disease (10 sources) Shortness of breath; Translations: [Shortness of breath] Onset: 5 09-13-2023 Episodic Other lower respiratory disease (13 sources) Hypoxemia; Translations: [Hypoxemia] 10-22-2023 Episodic Other lower respiratory disease (20 sources) Nodule of lung; Translations: [Solitary pulmonary nodule] 01-23-2024 Episodic Other lower respiratory disease (3 sources) Solitary pulmonary nodule; Translations: [Solitary pulmonary nodule] Onset: 5 01-23-2024 Episodic Other lower respiratory disease (20 sources) Dyspnea; Translations: [Shortness of breath] 09-25-2024 Episodic Other lower respiratory disease (17 sources) Solitary nodule of lung; Translations: [Solitary pulmonary nodule] 12-11-2024 Episodic Other nervous system disorders (20 sources) Chronic pain; Translations: [Other chronic pain] Onset: 3 01-06-2019 Chronic Other nervous system disorders (20 sources) Neuropathy; Translations: [Polyneuropathy, unspecified] 05-07-2021 Chronic Other nervous system disorders (20 sources) Metabolic encephalopathy; Translations: [Metabolic encephalopathy] 05-13-2021 Chronic Other nervous system disorders (11 sources) Other chronic pain; Translations: [Other chronic pain] Chronic Other nervous system disorders (1 source) Polyneuropathy, unspecified; Translations: [Mononeuritis of unspecified site] Chronic Other non-traumatic joint disorders (20 sources) Bone spur of vertebra; Translations: [Osteophyte, vertebrae] 04-25-2021 Chronic Other non-traumatic joint disorders (1 source) Osteophyte, vertebrae; Translations: [Other allied disorders of spine] Chronic Other nutritional; endocrine; and metabolic disorders (8 sources) Unexplained weight loss ; Translations: [Abnormal weight loss] 06-01-2021 Episodic Other nutritional; endocrine; and metabolic disorders (20 sources) Abnormal weight loss; Translations: [Loss of weight] Episodic Other nutritional; endocrine; and metabolic disorders (13 sources) Weight loss; Translations: [Abnormal weight loss] 09-26-2023 Episodic Other nutritional; endocrine; and metabolic disorders (17 sources) Weight decreased; Translations: [Abnormal weight loss] 09-26-2023 Episodic Other screening for suspected conditions (not mental disorders or infectious disease) (20 sources) CT of chest abnormal; Translations: [Abnormal findings on diagnostic imaging of other specified body structures] 05-09-2021 Chronic Other skin disorders (20 sources) Sebaceous cyst of skin; Translations: [Sebaceous cyst] 04-28-2019 Episodic Other skin disorders (20 sources) Actinic keratosis; Translations: [Actinic keratosis] 03-07-2021 Episodic Other skin disorders (20 sources) Multiple skin tags; Translations: [Other hypertrophic disorders of the skin] 12-30-2024 Episodic Other upper respiratory infections (6 sources) Acute pharyngitis; Translations: [Acute pharyngitis, unspecified] 09-07-2022 Episodic Pancreatic disorders (not diabetes) (20 sources) Exocrine pancreatic insufficiency; Translations: [Exocrine pancreatic insufficiency] 05-11-2024 Episodic Pleurisy; pneumothorax; pulmonary collapse (8 sources) Pleural effusion; Translations: [Pleural effusion, not elsewhere classified] 05-18-2021 Episodic Pneumonia (except that caused by tuberculosis or sexually transmitted disease) (20 sources) Community acquired pneumonia; Translations: [Pneumonia, unspecified organism] 05-07-2021 Episodic Poisoning by other medications and drugs (20 sources) Poisoning by unspecified drugs, medicaments and biological substances, accidental (unintentional), initial encounter; Translations: [Overdose] 01-12-2023 Episodic Regional enteritis and ulcerative colitis (20 sources) Crohn's disease; Translations: [Crohn's disease, unspecified, without complications] Onset: 5 11-17-2024 Chronic Residual codes; unclassified (20 sources) Daytime hypersomnia; Translations: [Hypersomnia, unspecified] 10-17-2023 Chronic Residual codes; unclassified (20 sources) Hypersomnia, unspecified; Translations: [Hypersomnia, unspecified] Onset: 5 10-22-2023 Chronic Residual codes; unclassified (20 sources) Obstructive sleep apnea syndrome; Translations: [Obstructive sleep apnea (adult) (pediatric)] 12-11-2024 Chronic Residual codes; unclassified (20 sources) Central sleep apnea syndrome; 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] 12-11-2024 Chronic Residual codes; unclassified (1 source) Primary central sleep apnea; 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] Onset: Chronic Residual codes; unclassified (2 sources) Obstructive sleep apnea (adult) (pediatric); Translations: [Obstructive sleep apnea (adult) (pediatric)] Onset: Chronic Residual codes; unclassified (20 sources) Other specified health status; Translations: [Failure of outpatient treatment] 05-13-2021 Episodic Residual codes; unclassified (20 sources) Altered mental status; Translations: [Altered mental status, unspecified] 01-24-2023 Episodic Residual codes; unclassified (17 sources) Altered mental status, unspecified; Translations: [Other alteration of consciousness] 01-24-2023 Episodic Sprains and strains (8 sources) Strain of neck muscle; Translations: [Strain of muscle, fascia and tendon at neck level, initial encounter] 04-23-2021 Episodic Substance-related disorders (20 sources) Opioid dependence with current use; Translations: [Opioid dependence, uncomplicated] Chronic Syncope (20 sources) Syncope; Translations: [Syncope and collapse] 05-18-2021 Episodic Unclassified (16 sources) Chronic pruritus Unclassified (1 source) Cough, unspecified; Translations: [Cough, unspecified] Onset: Viral infection (20 sources) Disease caused by 2019-nCoV; Translations: [COVID-19] 07-14-2021 Episodic Past or Other Problems Problem Classification Problem Date Documented Da te Episodic/Chronic Deficiency and other anemia (20 sources) Nutritional anemia, unspecified; Translations: [Unspecified deficiency anemia] Onset: 01-14-2024 10-17-2022 Episodic Deficiency and other anemia (6 sources) Anemia; Translations: [Anemia, unspecified] Onset: 12-11-2023 05-19-2024 Episodic Deficiency and other anemia (1 source) Anemia, unspecified; Translations: [Anemia, unspecified] Onset: 01-26-2025 Episodic Genitourinary symptoms and ill-defined conditions (15 sources) Increased frequency of urination; Translations: [Frequency of micturition] Onset: 03-30-2024 Episodic Immunizations and screening for infectious disease (1 source) Encounter for immunization; Translations: [Encounter for immunization] Onset: 07-01-2024 Episodic Other circulatory disease (11 sources) Orthostatic hypotension; Translations: [Orthostatic hypotension] Onset: 12-11-2024 11-06-2023 Episodic Other diseases of kidney and ureters (2 sources) Other obstructive and reflux uropathy; Translations: [BPH with obstruction/lower urinary tract symptoms] Onset: 03-30-2024 Episodic Other gastrointestinal disorders (1 source) Personal history of other diseases of the digestive system; Translations: [Personal history of other diseases of the digestive system] Onset: 01-06-2025 Episodic Other screening for suspected conditions (not mental disorders or infectious disease) (3 sources) Patient encounter status; Translations: [Encounter for screening for malignant neoplasm of prostate] Onset: 06-25-2024 06-25-2024 Episodic Other skin disorders (1 source) Other hypertrophic disorders of the skin; Translations: [Other hypertrophic disorders of the skin] Onset: 01-06-2025 Episodic Results Test Name Value Interpretation Reference Range Facility MR/PAT.ANEon 05-19-2025 MR/PAT.ANE Normal [facility] Chest PA and Lateralon 04-20 Chest PA and Lateral Normal [facility] Pulmonary Visit Reporton Pulmonary Visit Report Normal [facility] Respiratory Cultureon 2024 RESPC Normal [facility] Comment on above: Performed By: #### M 100.2400, M100.1999 ####[facility] [address] [place], [place], [address] Gram Stainon 03-27-2025 GS Acceptable Specimen? Yes (<25 Epithelial cells per/lpf) Gram Stain Rare Gram positive cocci No Epithelial cells Rare White Blood Cells Normal [facility] Comment on above: Performed By: #### M 100.2400, M100.1999 ####[facility] [address] [facility] [place], [address] Gram stainOrdered By: REEMA Rodarte on 03-26-2025 Microscopic observation Gram stain Nom (Unsp spec) [facility] Microbial respiratory cultur eOrdered By: REEMA Rodarte on 03-26-2025 Microorganism identified Cx Nom (Unsp spec) Streptococcus group A Abnormal [facility] Microorganism identified Cx Nom (Unsp spec) Staphylococcus aureus Abnormal [facility] Microorganism identified Cx Nom (Unsp spec) Presumptive C albicans Abnormal [facility] Pulmonary Visit Reporton Pulmonary Visit Report Normal [facility] Absolute lymphocyte countOrd ered By: Fiona Chance on 03-16-2025 Lymphocytes Auto (Unsp spec) [#/Vol] 1.11 10*3/uL 0.83-4.51 [facility] Anion gap in Serum or Plasma Ordered By: Fiona Chance on 03-16-2025 Anion gap [Moles/Vol] 8 mmol/L 5- [facility] Automated lymphocyte count a s percentage of total leukocytesOrdered By: Fiona Chance on 03-16-2025 Lymphocytes/100 WBC Auto (Unsp spec) 16.1 % Low 19-41 [facility] BUN/creatinine ratioOrdered By: Fiona Chance on 03-16-2025 Urea nitrogen/Creatinine [Mass ratio] 13.8 mg/mg - [facility] Basic Metabolic Profile (BMP )on 03-16-2025 BUN/CRE 13.8 RATIO Normal 08-02 [facility] Comment on above: Order Comment: compl ete at same time as BMP Performed By: #### L 100.0100, L500.2500 ####[facility] [address] [place], [address] Calcium [Mass/Vol] 10.0 mg/dL Normal 7.6-11.0 [facility] Comment on above: Order Comment: compl ete at same time as BMP Performed By: #### L 100.0100, L500.2500 ####[facility] [address] [place], [address] Chloride [Moles/Vol] 106 mmol/L Normal 98-108 [facility] Comment on above: Order Comment: compl ete at same time as BMP Performed By: #### L 100.0100, L500.2500 ####[facility] [address] [place], [address] CO2 [Moles/Vol] 26.6 mmol/L Normal 21.0-32.0 [facility] Comment on above: Order Comment: compl ete at same time as BMP Performed By: #### L 100.0100, L500.2500 ####[facility] [address] [place], [address] Creatinine [Mass/Vol] 0.92 mg/dL Normal 0.70-1.20 [facility] Comment on above: Order Comment: compl ete at same time as BMP Performed By: #### L 100.0100, L500.2500 ####[facility] [address] [place], [address] GAP 8 Normal 5-15 [facility] Comment on above: Order Comment: compl ete at same time as BMP Performed By: #### L 100.0100, L500.2500 ####[facility] [address] [place], [address] GFR/1.73 sq M.predicted among non-blacks MDRD (S/P/Bld) [Vol rate/Area] 88 mL/min/{1.73_m2} Normal >60 [facility] Comment on above: Order Comment: compl ete at same time as BMP Result Comment: mL/m in/1.73m2 CKD-EPI Creatinine Equation (2020) Performed By: #### L 100.0100, L500.2500 ####[facility] [address] [place], [address] Glucose [Mass/Vol] 92 mg/dL Normal 70-99 [facility] Comment on above: Order Comment: compl ete at same time as BMP Performed By: #### L 100.0100, L500.2500 ####[facility] [address] [place], [address] Potassium [Moles/Vol] 4.5 mmol/L Normal 3.3-5.1 [facility] Comment on above: Order Comment: compl ete at same time as BMP Performed By: #### L 100.0100, L500.2500 ####[facility] [address] [place], [address] Sodium [Moles/Vol] 141 mmol/L Normal 133-145 [facility] Comment on above: Order Comment: compl ete at same time as BMP Performed By: #### L 100.0100, L500.2500 ####[facility] [address] [place], [address] Urea nitrogen [Mass/Vol] 13 mg/dL Normal 4-19 [facility] Comment on above: Order Comment: compl ete at same time as BMP Performed By: #### L 100.0100, L500.2500 ####[facility] [address] [place], [address] Basophil percentageOrdered B y: Fiona Chance on 03-16-2024 Basophils/100 WBC (Bld) 1.2 % High 0-1 [facility] CBC W/Diff, Automatedon Absolute Lymph 1.11 X10 3/uL Normal 0.83-4.51 [facility] Comment on above: Order Comment: Comme nts: complete at same time as BMP Performed By: #### L 100.0100, L500.2500 ####[facility] [address] [place], [address] Absolute Neut 4.5 X10 3/uL Normal 2.0-7.7 [facility] Comment on above: Order Comment: Comme nts: complete at same time as BMP Performed By: #### L 100.0100, L500.2500 ####[facility] [address] [place], [address] Basophils/100 WBC (Bld) 1.2 % High 0-1 [facility] Comment on above: Order Comment: Comme nts: complete at same time as BMP Performed By: #### L 100.0100, L500.2500 ####[facility] [address] [place], [address] Eosinophils/100 WBC (Bld) 8.4 % High 0-5 [facility] Comment on above: Order Comment: Comme nts: complete at same time as BMP Performed By: #### L 100.0100, L500.2500 ####[facility] [address] [place], [address] Erythrocyte distribution width (RBC) [Ratio] 13.2 % Normal 11.6-14.6 [facility] Comment on above: Order Comment: Comme nts: complete at same time as BMP Performed By: #### L 100.0100, L500.2500 ####[facility] [address] [place], [address] Hematocrit (Bld) [Volume fraction] 41.8 % Normal 40-54 [facility] Comment on above: Order Comment: Comme nts: complete at same time as BMP Performed By: #### L 100.0100, L500.2500 ####[facility] [address] [place], [address] Hemoglobin (Bld) [Mass/Vol] 13.5 g/dL Normal 13.0-16.5 [facility] Comment on above: Order Comment: Comme nts: complete at same time as BMP Performed By: #### L 100.0100, L500.2500 ####[facility] [address] [place], [address] IG% 0.400 Normal 0.0-0.9 [facility] Comment on above: Order Comment: Comme nts: complete at same time as BMP Result Comment: IG% - Immature Granulocytes (promyelocytes, myelocytes andmetamyelocytes) > 1% indicates that a LEFT SHIFT is Present. Performed By: #### L 100.0100, L500.2500 ####[facility] [address] [place], [address] Lymphocytes/100 WBC (Bld) 16.1 % Low 19-41 [facility] Comment on above: Order Comment: Comme nts: complete at same time as BMP Performed By: #### L 100.0100, L500.2500 ####[facility] [address] [place], [address] MCH (RBC) [Entitic mass] 34.2 pg High 27.0-32.0 [facility] Comment on above: Order Comment: Comme nts: complete at same time as BMP Performed By: #### L 100.0100, L500.2500 ####[facility] [address] [place], [address] MCHC (RBC) [Mass/Vol] 32.3 g/dL Normal 32-36 [facility] Comment on above: Order Comment: Comme nts: complete at same time as BMP Performed By: #### L 100.0100, L500.2500 ####[facility] [address] [place], [address] MCV (RBC) [Entitic vol] 105.8 fL High 80-94 [facility] Comment on above: Order Comment: Comme nts: complete at same time as BMP Performed By: #### L 100.0100, L500.2500 ####[facility] [address] [place], [address] Monocytes/100 WBC (Bld) 9.3 % Normal 0-10 [facility] Comment on above: Order Comment: Comme nts: complete at same time as BMP Performed By: #### L 100.0100, L500.2500 ####[facility] [address] [place], [address] Neutrophils/100 WBC (Bld) 64.6 % Normal 47-70 [facility] Comment on above: Order Comment: Comme nts: complete at same time as BMP Performed By: #### L 100.0100, L500.2500 ####[facility] [address] [place], [address] Nucleated RBC (Bld) [#/Vol] 0 10*3/uL Normal 0-5 [facility] Comment on above: Order Comment: Comme nts: complete at same time as BMP Performed By: #### L 100.0100, L500.2500 ####[facility] [address] [place], [address] Platelet mean volume (Bld) [Entitic vol] 9.6 fL Normal 6.2-12.0 [facility] Comment on above: Order Comment: Comme nts: complete at same time as BMP Performed By: #### L 100.0100, L500.2500 ####[facility] [address] [place], [address] Platelets (Bld) [#/Vol] 236 10*3/uL Normal 150-450 [facility] Comment on above: Order Comment: Comme nts: complete at same time as BMP Performed By: #### L 100.0100, L500.2500 ####[facility] [address] [place], [address] RBC (Bld) [#/Vol] 3.95 10*6/uL Low 4.6-6.2 [facility] Comment on above: Order Comment: Comme nts: complete at same time as BMP Performed By: #### L 100.0100, L500.2500 ####[facility] [address] [place], [address] RDW SD 51.8 fl High 35.1-43.9 [facility] Comment on above: Order Comment: Comme nts: complete at same time as BMP Performed By: #### L 100.0100, L500.2500 ####[facility] [address] [place], [address] WBC (Bld) [#/Vol] 6.9 10*3/uL Normal 4.4-11.0 [facility] Comment on above: Order Comment: Comme nts: complete at same time as BMP Performed By: #### L 100.0100, L500.2500 ####[facility] [address] [place], [address] Carbon dioxide, total [Moles /volume] in Central venous bloodOrdered By: Fiona Chance on 03-16-2025 CO2 [Moles/Vol] 26.6 mmol/L 21.0-32.0 [facility] Chloride assayOrdered By: Tim Chance on 03-16-2025 Chloride [Moles/Vol] 106 mmol/L 98-108 [facility] Echo Completeon 03-16-2025 Echo Complete Normal [facility] Echocardiogram study reportO rdered By: Guanakito Godinez on 03-16-2025 Study report [facility] Work Phone: Eosinophil percentageOrdered By: Fiona Chance on 03-16-2025 Eosinophils/100 WBC (Bld) 8.4 % High 0-5 [facility] Erythrocyte distribution wid th ratioOrdered By: Fiona Chance on 03-16-2025 Erythrocyte distribution width (RBC) [Ratio] 13.2 % 11.6-14.6 [facility] Erythrocyte distribution wid th standard deviationOrdered By: Fiona Chance on 03-16-2025 Erythrocyte distribution width (RBC) [Ratio] 51.8 fl High 35.1-43.9 [facility] Glomerular filtration rate ( GFR) estimation/1.73 sq m using serum, plasma, or whole bOrdered By: Fiona Chance on 03-16-2025 GFR/1.73 sq M.predicted among non-blacks MDRD (S/P/Bld) [Vol rate/Area] 88 mL/min/{1.73_m2} >60 [facility] Hematocrit Auto (Bld) [Volum e fraction]Ordered By: Fiona Chance on 03-16-2025 Hematocrit (Bld) [Volume fraction] 41.8 % 40-54 [facility] Hemoglobin measurementOrdere d By: Fiona Chance on 03-16-2025 Hemoglobin (Bld) [Mass/Vol] 13.5 g/dL 13.0-16.5 [facility] Immature granulocytes/100 WB C Auto (Bld)Ordered By: Fiona Chance on 03-16-2025 Immature granulocytes/100 WBC (Bld) 0.400 % 0.0-0.9 [facility] MCV (mean corpuscular volume ) determinationOrdered By: Fiona Chance on 03-16-2025 MCV (RBC) [Entitic vol] 105.8 fL High 80-94 [facility] Mean corpuscular hemoglobin (MCH) determinationOrdered By: Fiona Chance on 03-16-2025 MCH (RBC) [Entitic mass] 34.2 pg High 27.0-32.0 [facility] Monocyte percentageOrdered B y: Fiona Chance on 03-16-2025 Monocytes/100 WBC (Bld) 9.3 % 0-10 [facility] Neutrophil percentageOrdered By: Fiona Chance on 03-16-2025 Neutrophils/100 WBC (Bld) 64.6 % 47-70 [facility] Platelet countOrdered By: Tim Chance on 03-16-2025 Platelets (Bld) [#/Vol] 236 10*3/uL 150-450 [facility] Potassium measurement (mass/ volume)Ordered By: Fiona Chance on 03-16-2025 Potassium (Unsp spec) [Mass/Vol] 4.5 mmol/L 3.3-5.1 [facility] RBC Auto (Bld) [#/Vol]Ordere d By: Fiona Chance on 03-16-2025 RBC (Bld) [#/Vol] 3.95 10*6/uL Low 4.6-6.2 [facility] Serum creatinine measurement (mass/volume)Ordered By: Fiona Chance on 03-16-2025 Creatinine [Mass/Vol] 0.92 mg/dL 0.70-1.20 [facility] Serum glucose measurement (m ass/volume)Ordered By: Fiona Chance on 03-16-2025 Glucose [Mass/Vol] 92 mg/dL 70-99 [facility] Serum or plasma calcium fernando urement (mass/volume)Ordered By: Fiona Chance on 03-16-2025 Calcium [Mass/Vol] 10.0 mg/dL 7.6-11.0 [facility] Serum or plasma urea nitroge n measurement (mass/volume)Ordered By: Fiona Chance on 03-16-2025 Urea nitrogen [Mass/Vol] 13 mg/dL 4-19 [facility] Sodium levelOrdered By: Radha Chance on 03-16-2025 Sodium [Moles/Vol] 141 mmol/L 133-145 [facility] White blood cell (WBC) count Ordered By: Fiona Chance on 03-16-2025 WBC (Bld) [#/Vol] 6.9 10*3/uL 4.4-11.0 [facility] Magnetic resonance imaging r eportOrdered By: Mercedes Solano on 03-15-2025 Study report [facility] MRI Abd WITH and W/O Contras ton 03-12-2025 MRI Abd WITH and W/O Contrast Normal [facility] Internal Medicine Office Vis iton 03-10-2025 Internal Medicine Office Visit Normal [facility] Pulmonary Visit Reporton Pulmonary Visit Report Normal [facility] Internal Medicine Office Vis iton 02-24-2025 Internal Medicine Office Visit Normal [facility] [id number] 02-23-2025 [facility] Mis. COMMENT Normal . [facility] Comment on above: Order Comment: SERUM GEL [id number], IgG Antibody Result Comment: Test Ordered: 041980 Strongyloides IgG AntibodyStrongyloides IgG Antibody Negative Reference Range: NegativePerformed at: - [facility] [id number] Director: Saud Nicholas MD, Phone: [phone] at: - [facility] [id number] Director: Lucian Huntley PhD, Phone: [phone] Performed By: #### L 3410.9992 ####[facility] [address] [place], [place], [id number] Chest without Contraston Chest without Contrast Normal [facility] ALP [Catalytic activity/Vol] Ordered By: Fiona Chance on 01-26-2025 Serum or plasma alkaline phosphatase measurement 63 U/L 40-129 [facility] ALT [Catalytic activity/Vol] Ordered By: Fiona Chance on 01-26-2025 Serum or plasma alanine aminotransferase (ALT) measurement 18 U/L <47 [facility] Absolute lymphocyte countOrd ered By: Fiona Chance on 01-26-2025 Lymphocytes Auto (Unsp spec) [#/Vol] 1.17 10*3/uL 0.83-4.51 [facility] Absolute neutrophil countOrd ered By: Fiona Chance on 01-26-2025 Absolute neutrophil count 5.6 X10^3/uL 2.0-7.7 [facility] Albumin [Mass/Vol]Ordered By : Fiona Chance on 01-26-2025 Serum or plasma albumin measurement (mass/volume) 4.1 g/dL 3.4-4.8 [facility] Anion gap [Moles/Vol]Ordered By: Fiona Chance on 01-26-2025 Anion gap in Serum or Plasma 10 02-25 [facility] Anion gap in Serum or Plasma Ordered By: Fiona Chance on 01-26-2025 Anion gap [Moles/Vol] 10 mmol/L 02-25 [facility] Automated lymphocyte count a s percentage of total leukocytesOrdered By: Fiona Chance on 01-26-2025 Lymphocytes/100 WBC Auto (Unsp spec) 14.4 % Low 19-41 [facility] BUN/creatinine ratioOrdered By: Fiona Chance on 01-26-2025 Urea nitrogen/Creatinine [Mass ratio] 16.4 mg/mg - [facility] BUN/creatinine ratio 16.4 RATIO 10- [facility] Basic Metabolic Profile (BMP )on 01-26-2025 BUN/CRE 16.4 RATIO Normal - [facility] Comment on above: Performed By: #### L 100.0100, L503.0106, L100.9950, L501.9520, L501.6710, L500.2500, L503.6030, L500.3400 ####[facility] [address] [place], [place], [id number] Calcium [Mass/Vol] 9.6 mg/dL Normal 7.6-11.0 [facility] Comment on above: Performed By: #### L 100.0100, L503.0106, L100.9950, L501.9520, L501.6710, L500.2500, L503.6030, L500.3400 ####[facility] [address] [place], [address] Chloride [Moles/Vol] 106 mmol/L Normal 98-108 [facility] Comment on above: Performed By: #### L 100.0100, L503.0106, L100.9950, L501.9520, L501.6710, L500.2500, L503.6030, L500.3400 ####[facility] [address] [place], [address] CO2 [Moles/Vol] 23.0 mmol/L Normal 21.0-32.0 [facility] Comment on above: Performed By: #### L 100.0100, L503.0106, L100.9950, L501.9520, L501.6710, L500.2500, L503.6030, L500.3400 ####[facility] [address] [place], [place], [phone] Creatinine [Mass/Vol] 1.07 mg/dL Normal 0.70-1.20 [facility] Comment on above: Performed By: #### L 100.0100, L503.0106, L100.9950, L501.9520, L501.6710, L500.2500, L503.6030, L500.3400 ####[facility] [address] [place], [address] GAP 10 Normal 5-15 [facility] Comment on above: Performed By: #### L 100.0100, L503.0106, L100.9950, L501.9520, L501.6710, L500.2500, L503.6030, L500.3400 ####[facility] [address] [place], [address] GFR/1.73 sq M.predicted among non-blacks MDRD (S/P/Bld) [Vol rate/Area] 73 mL/min/{1.73_m2} Normal >60 [facility] Comment on above: Result Comment: mL/m in/1.73m2 CKD-EPI Creatinine Equation (2020) Performed By: #### L 100.0100, L503.0106, L100.9950, L501.9520, L501.6710, L500.2500, L503.6030, L500.3400 ####[facility] [address] [place], [address] Glucose [Mass/Vol] 100 mg/dL High 70-99 [facility] Comment on above: Performed By: #### L 100.0100, L503.0106, L100.9950, L501.9520, L501.6710, L500.2500, L503.6030, L500.3400 ####[facility] [address] [place], [address] Potassium [Moles/Vol] 4.3 mmol/L Normal 3.3-5.1 [facility] Comment on above: Performed By: #### L 100.0100, L503.0106, L100.9950, L501.9520, L501.6710, L500.2500, L503.6030, L500.3400 ####[facility] [address] [place], [address] Sodium [Moles/Vol] 138 mmol/L Normal 133-145 [facility] Comment on above: Performed By: #### L 100.0100, L503.0106, L100.9950, L501.9520, L501.6710, L500.2500, L503.6030, L500.3400 ####[facility] [address] [place], [address] Urea nitrogen [Mass/Vol] 18 mg/dL Normal 4-19 [facility] Comment on above: Performed By: #### L 100.0100, L503.0106, L100.9950, L501.9520, L501.6710, L500.2500, L503.6030, L500.3400 ####[facility] [address] [place], [address] Basophil percentageOrdered B y: Fiona Chance on 01-26-2025 Basophils/100 WBC (Bld) 1.4 % High 0-1 [facility] Basophil percentage 1.4 % High 0-1 [facility] Bilirubin directOrdered By: Fiona Chance on 01-26-2025 Bilirubin.direct [Mass/Vol] 0.13 mg/dL 0.00-0.30 [facility] Bilirubin, totalOrdered By: Fiona Chance on 01-26-2025 Bilirubin [Mass/Vol] 0.24 mg/dL 0.00-1.30 [facility] Bilirubin, total 0.24 mg/dL 0.00-1.30 [facility] Bilirubin.direct [Mass/Vol]O rdered By: Fiona Chance on 01-26-2025 Bilirubin direct 0.13 mg/dL 0.00-0.30 [facility] CBC W/Diff, Automatedon 01-12 Absolute Lymph 1.17 X10 3/uL Normal 0.83-4.51 [facility] Comment on above: Performed By: #### L 100.0100, L503.0106, L100.9950, L501.9520, L501.6710, L500.2500, L503.6030, L500.3400 ####[facility] [address] [place], [address] Absolute Neut 5.6 X10 3/uL Normal 2.0-7.7 [facility] Comment on above: Performed By: #### L 100.0100, L503.0106, L100.9950, L501.9520, L501.6710, L500.2500, L503.6030, L500.3400 ####[facility] [address] [place], [address] Basophils/100 WBC (Bld) 1.4 % High 0-1 [facility] Comment on above: Performed By: #### L 100.0100, L503.0106, L100.9950, L501.9520, L501.6710, L500.2500, L503.6030, L500.3400 ####[facility] [address] [place], [address] Eosinophils/100 WBC (Bld) 7.4 % High 0-5 [facility] Comment on above: Performed By: #### L 100.0100, L503.0106, L100.9950, L501.9520, L501.6710, L500.2500, L503.6030, L500.3400 ####[facility] [address] [place], [address] Erythrocyte distribution width (RBC) [Ratio] 12.4 % Normal 11.6-14.6 [facility] Comment on above: Performed By: #### L 100.0100, L503.0106, L100.9950, L501.9520, L501.6710, L500.2500, L503.6030, L500.3400 ####[facility] [address] [place], [address] Hematocrit (Bld) [Volume fraction] 38.7 % Low 40-54 [facility] Comment on above: Performed By: #### L 100.0100, L503.0106, L100.9950, L501.9520, L501.6710, L500.2500, L503.6030, L500.3400 ####[facility] [address] [place], [address] Hemoglobin (Bld) [Mass/Vol] 12.5 g/dL Low 13.0-16.5 [facility] Comment on above: Performed By: #### L 100.0100, L503.0106, L100.9950, L501.9520, L501.6710, L500.2500, L503.6030, L500.3400 ####[facility] [address] [place], [address] IG% 0.500 Normal 0.0-0.9 [facility] Comment on above: Result Comment: IG% - Immature Granulocytes (promyelocytes, myelocytes andmetamyelocytes) > 1% indicates that a LEFT SHIFT is Present. Performed By: #### L 100.0100, L503.0106, L100.9950, L501.9520, L501.6710, L500.2500, L503.6030, L500.3400 ####[facility] [address] [place], [address] Lymphocytes/100 WBC (Bld) 14.4 % Low 19-41 [facility] Comment on above: Performed By: #### L 100.0100, L503.0106, L100.9950, L501.9520, L501.6710, L500.2500, L503.6030, L500.3400 ####[facility] [address] [place], [address] MCH (RBC) [Entitic mass] 35.2 pg High 27.0-32.0 [facility] Comment on above: Performed By: #### L 100.0100, L503.0106, L100.9950, L501.9520, L501.6710, L500.2500, L503.6030, L500.3400 ####[facility] [address] [place], [address] MCHC (RBC) [Mass/Vol] 32.3 g/dL Normal 32-36 [facility] Comment on above: Performed By: #### L 100.0100, L503.0106, L100.9950, L501.9520, L501.6710, L500.2500, L503.6030, L500.3400 ####[facility] [address] [place], [address] MCV (RBC) [Entitic vol] 109.0 fL High 80-94 [facility] Comment on above: Performed By: #### L 100.0100, L503.0106, L100.9950, L501.9520, L501.6710, L500.2500, L503.6030, L500.3400 ####[facility] [address] [place], [address] Monocytes/100 WBC (Bld) 7.1 % Normal 0-10 [facility] Comment on above: Performed By: #### L 100.0100, L503.0106, L100.9950, L501.9520, L501.6710, L500.2500, L503.6030, L500.3400 ####[facility] [address] [place], [address] Neutrophils/100 WBC (Bld) 69.2 % Normal 47-70 [facility] Comment on above: Performed By: #### L 100.0100, L503.0106, L100.9950, L501.9520, L501.6710, L500.2500, L503.6030, L500.3400 ####[facility] [address] [place], [address] Nucleated RBC (Bld) [#/Vol] 0 10*3/uL Normal 0-5 [facility] Comment on above: Performed By: #### L 100.0100, L503.0106, L100.9950, L501.9520, L501.6710, L500.2500, L503.6030, L500.3400 ####[facility] [address] [place], [address] Platelet mean volume (Bld) [Entitic vol] 9.6 fL Normal 6.2-12.0 [facility] Comment on above: Performed By: #### L 100.0100, L503.0106, L100.9950, L501.9520, L501.6710, L500.2500, L503.6030, L500.3400 ####[facility] [address] [place], [address] Platelets (Bld) [#/Vol] 253 10*3/uL Normal 150-450 [facility] Comment on above: Performed By: #### L 100.0100, L503.0106, L100.9950, L501.9520, L501.6710, L500.2500, L503.6030, L500.3400 ####[facility] [address] [place], [address] RBC (Bld) [#/Vol] 3.55 10*6/uL Low 4.6-6.2 [facility] Comment on above: Performed By: #### L 100.0100, L503.0106, L100.9950, L501.9520, L501.6710, L500.2500, L503.6030, L500.3400 ####[facility] [address] [place], [address] RDW SD 50.6 fl High 35.1-43.9 [facility] Comment on above: Performed By: #### L 100.0100, L503.0106, L100.9950, L501.9520, L501.6710, L500.2500, L503.6030, L500.3400 ####[facility] [address] [place], [address] WBC (Bld) [#/Vol] 8.1 10*3/uL Normal 4.4-11.0 [facility] Comment on above: Performed By: #### L 100.0100, L503.0106, L100.9950, L501.9520, L501.6710, L500.2500, L503.6030, L500.3400 ####[facility] [address] [facility] [address] [place], [place], [id number] CRPon 01-26-2025 C-REACTIVE PROT < 3.00 Normal 0.0-3.0 [facility] Comment on above: Performed By: #### L 100.0100, L503.0106, L100.9950, L501.9520, L501.6710, L500.2500, L503.6030, L500.3400 ####[facility] [address] [facility] [address] [place], [place], [address] CRP [Mass/Vol]Ordered By: Tim Chance on 01-26-2025 Serum or plasma C reactive protein measurement (mass/volume) < 3.00 mg/L 0.0-3.0 [facility] Calcium [Mass/Vol]Ordered By : Fiona Chance on 01-26-2025 Serum or plasma calcium measurement (mass/volume) 9.6 mg/dL 7.6-11.0 [facility] Calculated total iron bindin g capacityOrdered By: Fiona Chance on 01-26-2025 Calculated total iron binding capacity 294 ug/dL 250-450 [facility] Carbon dioxide, total [Moles /volume] in Central venous bloodOrdered By: Fiona Chance on 01-26-2025 CO2 [Moles/Vol] 23.0 mmol/L 21.0-32.0 [facility] Carbon dioxide, total [Moles/volume] in Central venous blood 23.0 mmol/L 21.0-32.0 [facility] Chloride assayOrdered By: Tim Chance on 01-26-2025 Chloride [Moles/Vol] 106 mmol/L 98-108 [facility] Chloride assay 106 mmol/L 98-108 [facility] Cobalamin (Vitamin B12) [Mas s/Vol]Ordered By: Fiona Chance on 01-26-2025 Vitamin B12 ser/plas 855 pg/mL 180-914 [facility] Creatinine [Mass/Vol]Ordered By: Fiona Chance on 01-26-2025 Serum creatinine measurement (mass/volume) 1.07 mg/dL 0.70-1.20 [facility] Eosinophil percentageOrdered By: Fiona Chance on 01-26-2025 Eosinophils/100 WBC (Bld) 7.4 % High 0-5 [facility] Eosinophil percentage 7.4 % High 0-5 [facility] Erythrocyte distribution wid th (RBC) [Ratio]Ordered By: Fiona Chance on 01-26-2025 Erythrocyte distribution width ratio 12.4 % 11.6-14.6 [facility] Erythrocyte distribution width standard deviation 50.6 fl High 35.1-43.9 [facility] Erythrocyte distribution wid th ratioOrdered By: Fiona Chance on 01-26-2025 Erythrocyte distribution width (RBC) [Ratio] 12.4 % 11.6-14.6 [facility] Erythrocyte distribution wid th standard deviationOrdered By: Fiona Chance on 01-26-2025 Erythrocyte distribution width (RBC) [Ratio] 50.6 fl High 35.1-43.9 [facility] GFR/1.73 sq M.predicted elizabeth g non-blacks MDRD (S/P/Bld) [Vol rate/Area]Ordered By: Fiona Chance on 01-26-2025 Glomerular filtration rate (GFR) estimation/1.73 sq m using serum, plasma, or whole b 73 >60 [facility] Gastroenterology Visit Repor ton 01-26-2025 Gastroenterology Visit Report Normal [facility] Glomerular filtration rate ( GFR) estimation/1.73 sq m using serum, plasma, or whole bOrdered By: Fiona Chance on 01-26-2025 GFR/1.73 sq M.predicted among non-blacks MDRD (S/P/Bld) [Vol rate/Area] 73 mL/min/{1.73_m2} >60 [facility] Glucose [Mass/Vol]Ordered By : Fiona Chance on 01-26-2025 Serum glucose measurement (mass/volume) 100 mg/dL High 70-99 [facility] Hematocrit Auto (Bld) [Volum e fraction]Ordered By: Fiona Chance on 01-26-2025 Hematocrit (Bld) [Volume fraction] 38.7 % Low 40-54 [facility] Automated blood hematocrit (percentage) 38.7 % Low 40-54 [facility] Hemoglobin (Reticulocytes) [ Entitic mass]Ordered By: Fiona Chance on 01-26-2025 Reticulocyte hemoglobin equivalent (RET-He) measurement 36.3 pg High 30-35 [facility] Hemoglobin measurementOrdere d By: Fiona Chance on 01-26-2025 Hemoglobin (Bld) [Mass/Vol] 12.5 g/dL Low 13.0-16.5 [facility] Hemoglobin measurement 12.5 g/dL Low 13.0-16.5 [facility] Immature granulocytes/100 WB C Auto (Bld)Ordered By: Fiona Chance on 01-26-2025 Immature granulocytes/100 WBC (Bld) 0.500 % 0.0-0.9 [facility] Automated immature granulocyte percentage 0.500 % 0.0-0.9 [facility] Immature reticulocyte fracti onOrdered By: Fiona Chance on 01-26-2025 Immature reticulocyte fraction 11.50 % 3.00-15.90 [facility] Iron (Unsp spec) [Mass/Mass] Ordered By: Fiona Chance on 01-26-2025 Iron measurement (mass/mass) 61 ug/dL Low 65-175 [facility] Iron measurement (mass/mass) Ordered By: Fiona Chance on 01-26-2025 Iron (Unsp spec) [Mass/Mass] 61 ug/dL Low 65-175 [facility] Iron saturation [Mass fracti on]Ordered By: Fiona Chance on 01-26-2025 Serum or plasma iron saturation measurement (mass fraction) 20.7 % 9-55 [facility] Iron+Iron Binding Capacityon 01-26-2025 Iron [Mass/Vol] 61 ug/dL Low 65-175 [facility] Comment on above: Performed By: #### L 100.0100, L503.0106, L100.9950, L501.9520, L501.6710, L500.2500, L503.6030, L500.3400 ####[facility] [address] [place], [address] UIBC 233 ug/dL Normal 228-428 [facility] Comment on above: Performed By: #### L 100.0100, L503.0106, L100.9950, L501.9520, L501.6710, L500.2500, L503.6030, L500.3400 ####[facility] [address] [place], [place], [phone] Liver Profileon 01-26-2025 Albumin [Mass/Vol] 4.1 g/dL Normal 3.4-4.8 [facility] Comment on above: Performed By: #### L 100.0100, L503.0106, L100.9950, L501.9520, L501.6710, L500.2500, L503.6030, L500.3400 ####[facility] [address] [place], [place], [phone]23) ALK PHOS 63 U/L Normal 40-129 [facility] Comment on above: Performed By: #### L 100.0100, L503.0106, L100.9950, L501.9520, L501.6710, L500.2500, L503.6030, L500.3400 ####[facility] [address] [place], [place], [id number] ALT [Catalytic activity/Vol] 18 U/L Normal <=46 [facility] Comment on above: Performed By: #### L 100.0100, L503.0106, L100.9950, L501.9520, L501.6710, L500.2500, L503.6030, L500.3400 ####[facility] [address] [place], [place], [phone]) AST [Catalytic activity/Vol] 23 U/L Normal <=37 [facility] Comment on above: Performed By: #### L 100.0100, L503.0106, L100.9950, L501.9520, L501.6710, L500.2500, L503.6030, L500.3400 ####[facility] [address] [place], [address] Bilirubin [Mass/Vol] 0.24 mg/dL Normal 0.00-1.30 [facility] Comment on above: Performed By: #### L 100.0100, L503.0106, L100.9950, L501.9520, L501.6710, L500.2500, L503.6030, L500.3400 ####[facility] [address] [place], [address] Bilirubin.direct [Mass/Vol] 0.13 mg/dL Normal 0.00-0.30 [facility] Comment on above: Performed By: #### L 100.0100, L503.0106, L100.9950, L501.9520, L501.6710, L500.2500, L503.6030, L500.3400 ####[facility] [address] [place], [address] Globulin (S) [Mass/Vol] 3.2 g/dL Normal 2.2-4.2 [facility] Comment on above: Performed By: #### L 100.0100, L503.0106, L100.9950, L501.9520, L501.6710, L500.2500, L503.6030, L500.3400 ####[facility] [address] [place], [address] T PROT 7.3 g/dL Normal 5.9-8.4 [facility] Comment on above: Performed By: #### L 100.0100, L503.0106, L100.9950, L501.9520, L501.6710, L500.2500, L503.6030, L500.3400 ####[facility] [address] [place], [address] Lymphocytes Auto (Unsp spec) [#/Vol]Ordered By: Fiona Chance on 01-26-2025 Absolute lymphocyte count 1.17 X10^3/uL 0.83-4.51 [facility] Lymphocytes/100 WBC Auto (Un sp spec)Ordered By: Fiona Chance on 01-26-2025 Automated lymphocyte count as percentage of total leukocytes 14.4 % Low 19-41 [facility] MCV (RBC) [Entitic vol]Order ed By: Fiona Chance on 01-26-2025 MCV (mean corpuscular volume) determination 109.0 fL High 80-94 [facility] MCV (mean corpuscular volume ) determinationOrdered By: Fiona Chance on 01-26-2025 MCV (RBC) [Entitic vol] 109.0 fL High 80-94 [facility] Mean corpuscular hemoglobin (MCH) determinationOrdered By: Fiona Chance on 01-26-2025 MCH (RBC) [Entitic mass] 35.2 pg High 27.0-32.0 [facility] Mean corpuscular hemoglobin (MCH) determination 35.2 pg High 27.0-32.0 [facility] Mean corpuscular hemoglobin concentration (MCHC) determinationOrdered By: Fiona Chance on 01-26-2025 Mean corpuscular hemoglobin concentration (MCHC) determination 32.3 g/dL 32-36 [facility] Mean platelet volume determi nationOrdered By: Fiona Chance on 01-26-2025 Mean platelet volume determination 9.6 fl 6.2-12.0 [facility] Monocyte percentageOrdered B y: Fiona Chance on 01-26-2025 Monocytes/100 WBC (Bld) 7.1 % 0-10 [facility] Monocyte percentage 7.1 % 0-10 [facility] Neutrophil percentageOrdered By: Fiona Chance on 01-26-2025 Neutrophils/100 WBC (Bld) 69.2 % 47-70 [facility] Neutrophil percentage 69.2 % 47-70 [facility] No Panel InformationOrdered By: Fiona Chance on 01-26-2025 23 U/L <38 [facility] 233 ug/dL 228-428 [facility] Nucleated red blood cell per centageOrdered By: Fiona Chance on 01-26-2025 Nucleated red blood cell percentage 0 % 0-5 [facility] Platelet countOrdered By: Tim Chance on 01-26-2025 Platelets (Bld) [#/Vol] 253 10*3/uL 150-450 [facility] Platelet count 253 K/mm3 150-450 [facility] Potassium (Unsp spec) [Mass/ Vol]Ordered By: Fiona Chance on 01-26-2025 Potassium measurement (mass/volume) 4.3 mmol/L 3.3-5.1 [facility] Potassium measurement (mass/ volume)Ordered By: Fiona Chance on 01-26-2025 Potassium (Unsp spec) [Mass/Vol] 4.3 mmol/L 3.3-5.1 [facility] RBC Auto (Bld) [#/Vol]Ordere d By: Fiona Chance on 01-26-2025 RBC (Bld) [#/Vol] 3.55 10*6/uL Low 4.6-6.2 [facility] Automated blood erythrocyte count 3.55 M/mm3 Low 4.6-6.2 [facility] Retic Panelon 01-26-2025 IM RET FRACTION 11.50 Normal 3.00-15.90 [facility] Comment on above: Performed By: #### L 100.0100, L503.0106, L100.9950, L501.9520, L501.6710, L500.2500, L503.6030, L500.3400 ####[facility] [address] [place], [place], [id number] RET-HE 36.3 pg High 30-35 [facility] Comment on above: Performed By: #### L 100.0100, L503.0106, L100.9950, L501.9520, L501.6710, L500.2500, L503.6030, L500.3400 ####[facility] [id number] [place], [address] Retic Count 1.66 High 0.5-1.5 [facility] Comment on above: Performed By: #### L 100.0100, L503.0106, L100.9950, L501.9520, L501.6710, L500.2500, L503.6030, L500.3400 ####[facility] [id number] [place], [address] Reticulocyte hemoglobin equi valent (RET-He) measurementOrdered By: Fiona Chance on 01-26-2025 Hemoglobin (Reticulocytes) [Entitic mass] 36.3 pg High 30-35 [facility] Reticulocytes Auto (Bld) [#/ Vol]Ordered By: Fiona Chance on 01-26-2025 Reticulocytes/100 RBC (Bld) 1.66 % High 0.5-1.5 [facility] Automated blood reticulocytes count (number/volume) 1.66 % High 0.5-1.5 [facility] Serum creatinine measurement (mass/volume)Ordered By: Fiona Chance on 01-26-2025 Creatinine [Mass/Vol] 1.07 mg/dL 0.70-1.20 [facility] Serum globulin measurementOr dered By: Fiona Chance on 01-26-2025 Globulin (S) [Mass/Vol] 3.2 g/dL 2.2-4.2 [facility] Serum globulin measurement 3.2 g/dL 2.2-4.2 [facility] Serum glucose measurement (m ass/volume)Ordered By: Fiona Chance on 01-26-2025 Glucose [Mass/Vol] 100 mg/dL High 70-99 [facility] Serum or plasma C reactive p rotein measurement (mass/volume)Ordered By: Fiona Chance on 01-26-2025 CRP [Mass/Vol] mg/L 0.0-3.0 [facility] Serum or plasma alanine koehler otransferase (ALT) measurementOrdered By: Fiona Chance on 01-26-2025 ALT [Catalytic activity/Vol] 18 U/L <47 [facility] Serum or plasma albumin fernando urement (mass/volume)Ordered By: Fiona Chance on 01-26-2025 Albumin [Mass/Vol] 4.1 g/dL 3.4-4.8 [facility] Serum or plasma alkaline mahsa sphatase measurementOrdered By: Fiona Chance on 01-26-2025 ALP [Catalytic activity/Vol] 63 U/L 40-129 [facility] Serum or plasma calcium fernando urement (mass/volume)Ordered By: Fiona Chance on 01-26-2025 Calcium [Mass/Vol] 9.6 mg/dL 7.6-11.0 [facility] Serum or plasma iron saturat ion measurement (mass fraction)Ordered By: Fiona Chance on 01-26-2025 Iron saturation [Mass fraction] 20.7 % 9-55 [facility] Serum or plasma urea nitroge n measurement (mass/volume)Ordered By: Fiona Chance on 01-26-2025 Urea nitrogen [Mass/Vol] 18 mg/dL 4-19 [facility] Sodium levelOrdered By: Radha Chance on 01-26-2025 Sodium [Moles/Vol] 138 mmol/L 133-145 [facility] Sodium level 138 mmol/L 133-145 [facility] TSH DL <= 0.005 mIU/L QnOrde red By: Fiona Chance on 01-26-2025 TSH Qn 1.240 uIU/mL 0.300-4.200 [facility] Serum or plasma thyroid stimulating hormone (TSH) measurement by high sensitivity met 1.240 uIU/mL 0.300-4.200 [facility] Thyroid Stim Hormone (TSH)on 01-26-2025 TSH 1.240 uIU/mL Normal 0.300-4.200 [facility] Comment on above: Performed By: #### L 100.0100, L503.0106, L100.9950, L501.9520, L501.6710, L500.2500, L503.6030, L500.3400 ####[facility] [address] [place], [place], [id number] Total proteinOrdered By: Diamond Chance on 01-26-2025 Protein [Mass/Vol] 7.3 g/dL 5.9-8.4 [facility] Total protein 7.3 g/dL 5.9-8.4 [facility] Urea nitrogen [Mass/Vol]Orde red By: Fiona Chance on 01-26-2025 Serum or plasma urea nitrogen measurement (mass/volume) 18 mg/dL 4-19 [facility] Vitamin B12on 01-26-2025 Cobalamin (Vitamin B12) [Mass/Vol] 855 pg/mL Normal 180-914 [facility] Comment on above: Performed By: #### L 100.0100, L503.0106, L100.9950, L501.9520, L501.6710, L500.2500, L503.6030, L500.3400 ####[facility] [address] [place], [place], [id number] Vitamin B12 ser/plasOrdered By: Fiona Chance on 01-26-2025 Cobalamin (Vitamin B12) [Mass/Vol] 855 pg/mL 180-914 [facility] White blood cell (WBC) count Ordered By: Fiona Chance on 01-26-2025 WBC (Bld) [#/Vol] 8.1 10*3/uL 4.4-11.0 [facility] White blood cell (WBC) count 8.1 K/mm3 4.4-11.0 [facility] Internal Medicine Office Vis iton 01-06-2025 Internal Medicine Office Visit Normal [facility] Colonoscopy Reporton Colonoscopy Report Normal [facility] EGD Reporton 01-04-2025 EGD Report Normal [facility] Immunohistochemical Stainson 01-04-2025 Immunohistochemical Stains Normal [facility] Comment on above: Performed By: #### P IMHI ####[facility] [address] [place], [place], [id number] MR/POSTOP.ANEon 01-04-2025 MR/POSTOP.ANE Normal [facility] MR/QUSHMUMQ6kx 01-04-2025 MR/POSTOPAN2 Normal [facility] Internal Medicine Office Vis iton 12-30-2024 Internal Medicine Office Visit Normal [facility] MR/PAT.ANEon 12-30-2024 MR/PAT.ANE Normal [facility] Enterography Abd/Mc 12-25 Enterography Abd/Pel Normal [facility] Magnetic resonance imaging r eportOrdered By: Brody Johnson on 12-25-2024 Study report [facility] Pulmonary Visit Reporton Pulmonary Visit Report Normal [facility] Cardiology Visit Reporton Cardiology Visit Report Normal [facility] ALP [Catalytic activity/Vol] Ordered By: Fiona Chance on 11-27-2024 Serum or plasma alkaline phosphatase measurement 77 U/L 45-117 [facility] ALT [Catalytic activity/Vol] Ordered By: Fiona Chance on 11-27-2024 Serum or plasma alanine aminotransferase (ALT) measurement 22 U/L 16-61 [facility] Absolute lymphocyte countOrd ered By: Fiona Chance on 11-27-2024 Lymphocytes Auto (Unsp spec) [#/Vol] 1.42 10*3/uL 0.83-4.51 [facility] Absolute neutrophil countOrd ered By: Fiona Chance on 11-27-2024 Absolute neutrophil count 5.2 X10^3/uL 2.0-7.7 [facility] Albumin [Mass/Vol]Ordered By : Fiona Chance on 11-27-2024 Serum or plasma albumin measurement (mass/volume) 3.7 g/dL 3.2-5.0 [facility] Albumin to globulin ratioOrd ered By: Fiona Chance on 11-27-2024 Albumin to globulin ratio 0.9 RATIO 0.9-2.4 [facility] Automated lymphocyte count a s percentage of total leukocytesOrdered By: Fiona Chance on 11-27-2024 Lymphocytes/100 WBC Auto (Unsp spec) 17.5 % Low 19-41 [facility] Basophil percentageOrdered B y: Fiona Chance on 11-27-2024 Basophils/100 WBC (Bld) 1.4 % High 0-1 [facility] Basophil percentage 1.4 % High 0-1 [facility] Bilirubin, totalOrdered By: Fiona Chance on 11-27-2024 Bilirubin [Mass/Vol] 0.50 mg/dL 0.20-1.00 [facility] Bilirubin, total 0.50 mg/dL 0.20-1.00 [facility] Blood urea nitrogen (BUN)/cr eatinine ratioOrdered By: Fiona Chance on 11-27-2024 Blood urea nitrogen (BUN)/creatinine ratio 10.4 RATIO 10-20 [facility] C-reactive protein measureme nt by high sensitivity methodOrdered By: Fiona Chance on 11-27-2024 C-reactive protein measurement by high sensitivity method < 2.90 mg/L 0.0-3.0 [facility] CBC W/Diff, Automatedon 11-14 Absolute Lymph 1.42 X10 3/uL Normal 0.83-4.51 [facility] Comment on above: Performed By: #### L 100.0100, L500.4050, L501.6710 ####[facility] [address] [place], [address] Absolute Neut 5.2 X10 3/uL Normal 2.0-7.7 [facility] Comment on above: Performed By: #### L 100.0100, L500.4050, L501.6710 ####[facility] [address] [place], [address] Basophils/100 WBC (Bld) 1.4 % High 0-1 [facility] Comment on above: Performed By: #### L 100.0100, L500.4050, L501.6710 ####[facility] [address] [place], [address] Eosinophils/100 WBC (Bld) 7.2 % High 0-5 [facility] Comment on above: Performed By: #### L 100.0100, L500.4050, L501.6710 ####[facility] [address] [place], [address] Erythrocyte distribution width (RBC) [Ratio] 14.9 % High 11.6-14.6 [facility] Comment on above: Performed By: #### L 100.0100, L500.4050, L501.6710 ####[facility] [address] [place], [address] Hematocrit (Bld) [Volume fraction] 36.2 % Low 40-54 [facility] Comment on above: Performed By: #### L 100.0100, L500.4050, L501.6710 ####[facility] [address] [place], [address] Hemoglobin (Bld) [Mass/Vol] 11.3 g/dL Low 13.0-16.5 [facility] Comment on above: Performed By: #### L 100.0100, L500.4050, L501.6710 ####[facility] [address] [place], [address] IG% 0.500 Normal 0.0-0.9 [facility] Comment on above: Result Comment: IG% - Immature Granulocytes (promyelocytes, myelocytes andmetamyelocytes) > 1% indicates that a LEFT SHIFT is Present. Performed By: #### L 100.0100, L500.4050, L501.6710 ####[facility] [address] [place], [address] Lymphocytes/100 WBC (Bld) 17.5 % Low 19-41 [facility] Comment on above: Performed By: #### L 100.0100, L500.4050, L501.6710 ####[facility] [address] [place], [address] MCH (RBC) [Entitic mass] 34.3 pg High 27.0-32.0 [facility] Comment on above: Performed By: #### L 100.0100, L500.4050, L501.6710 ####[facility] [address] [place], [address] MCHC (RBC) [Mass/Vol] 31.2 g/dL Low 32-36 [facility] Comment on above: Performed By: #### L 100.0100, L500.4050, L501.6710 ####[facility] [address] [place], [address] MCV (RBC) [Entitic vol] 110.0 fL High 80-94 [facility] Comment on above: Performed By: #### L 100.0100, L500.4050, L501.6710 ####[facility] [address] [place], [address] Monocytes/100 WBC (Bld) 9.9 % Normal 0-10 [facility] Comment on above: Performed By: #### L 100.0100, L500.4050, L501.6710 ####[facility] [address] [place], [address] Neutrophils/100 WBC (Bld) 63.5 % Normal 47-70 [facility] Comment on above: Performed By: #### L 100.0100, L500.4050, L501.6710 ####[facility] [address] [place], [address] Nucleated RBC (Bld) [#/Vol] 0 10*3/uL Normal 0-5 [facility] Comment on above: Performed By: #### L 100.0100, L500.4050, L501.6710 ####[facility] [address] [place], [address] Platelet mean volume (Bld) [Entitic vol] 9.6 fL Normal 6.2-12.0 [facility] Comment on above: Performed By: #### L 100.0100, L500.4050, L501.6710 ####[facility] [address] [place], [address] Platelets (Bld) [#/Vol] 263 10*3/uL Normal 150-450 [facility] Comment on above: Performed By: #### L 100.0100, L500.4050, L501.6710 ####[facility] [address] [place], [address] RBC (Bld) [#/Vol] 3.29 10*6/uL Low 4.6-6.2 [facility] Comment on above: Performed By: #### L 100.0100, L500.4050, L501.6710 ####[facility] [address] [place], [address] RDW SD 61.4 fl High 35.1-43.9 [facility] Comment on above: Performed By: #### L 100.0100, L500.4050, L501.6710 ####[facility] [address] [place], [address] WBC (Bld) [#/Vol] 8.1 10*3/uL Normal 4.4-11.0 [facility] Comment on above: Performed By: #### L 100.0100, L500.4050, L501.6710 ####[facility] [address] [place], [address] CRPon 11-27-2024 C-REACTIVE PROT < 2.90 Normal 0.0-3.0 [facility] Comment on above: Result Comment: C-Re active Protein (CRP) provides useful information for thediagnosis, therapy and monitoring of inflammatory processesand associated diseases. For the evaluation of Relative Riskfor Cardiovascular Disease, a High Sensitivity CRP (HSCRP)should be ordered. Performed By: #### L 100.0100, L500.4050, L501.6710 ####[facility] [address] [place], [address] Calcium [Mass/Vol]Ordered By : Fiona Chance on 11-27-2024 Serum or plasma calcium measurement (mass/volume) 9.6 mg/dL 8.5-10.1 [facility] Carbon dioxide measurementOr dered By: Fiona Chance on 11-27-2024 CO2 [Moles/Vol] 27.0 mmol/L 21.0-32.0 [facility] Carbon dioxide measurement 27.0 mmol/L 21.0-32.0 [facility] Chloride measurementOrdered By: Fiona Chance on 11-27-2024 Chloride [Moles/Vol] 106 mmol/L 98-107 [facility] Chloride measurement 106 mmol/L 98-107 [facility] Comprehensive Metabolic Prof ilon 11-27-2024 Albumin [Mass/Vol] 3.7 g/dL Normal 3.2-5.0 [facility] Comment on above: Performed By: #### L 100.0100, L500.4050, L501.6710 ####[facility] [address] [place], [address] Albumin/Globulin [Mass ratio] 0.9 {ratio} Normal 0.9-2.4 [facility] Comment on above: Performed By: #### L 100.0100, L500.4050, L501.6710 ####[facility] [address] [place], [address] ALK P 77 U/L Normal 45-117 [facility] Comment on above: Performed By: #### L 100.0100, L500.4050, L501.6710 ####[facility] [address] [place], [address] ALT [Catalytic activity/Vol] 22 U/L Normal 16-61 [facility] Comment on above: Performed By: #### L 100.0100, L500.4050, L501.6710 ####[facility] [address] [place], [address] AST [Catalytic activity/Vol] 21 U/L Normal 15-37 [facility] Comment on above: Performed By: #### L 100.0100, L500.4050, L501.6710 ####[facility] [address] [place], [id number] Bilirubin [Mass/Vol] 0.50 mg/dL Normal 0.20-1.00 [facility] Comment on above: Result Comment: For patients on eltrombopag therapy, use of Dimension Arnett TBIL is not recommended. Performed By: #### L 100.0100, L500.4050, L501.6710 ####[facility] [address] [place], [id number] BUN/CRE 10.4 RATIO Normal 10-20 [facility] Comment on above: Performed By: #### L 100.0100, L500.4050, L501.6710 ####[facility] [address] [place], [address] CA,Total 9.6 mg/dL Normal 8.5-10.1 [facility] Comment on above: Performed By: #### L 100.0100, L500.4050, L501.6710 ####[facility] [address] [place], [address] Chloride [Moles/Vol] 106 mmol/L Normal 98-107 [facility] Comment on above: Performed By: #### L 100.0100, L500.4050, L501.6710 ####[facility] [address] [place], [address] CO2 [Moles/Vol] 27.0 mmol/L Normal 21.0-32.0 [facility] Comment on above: Performed By: #### L 100.0100, L500.4050, L501.6710 ####[facility] [address] [place], [id number] Creatinine [Mass/Vol] 1.35 mg/dL High 0.70-1.30 [facility] Comment on above: Result Comment: The validity of the calculated GFR GFRAA in patients over70 years has not been determined. Clinical correlation isessential. Performed By: #### L 100.0100, L500.4050, L501.6710 ####[facility] [address] [place], [address] EST GFR - AA 66 mL/min Normal >60 [facility] Comment on above: Result Comment: Afri can Gibraltarian GFR Calc Performed By: #### L 100.0100, L500.4050, L501.6710 ####[facility] [address] [place], [address] GAP 4 Low 5-15 [facility] Comment on above: Performed By: #### L 100.0100, L500.4050, L501.6710 ####[facility] [address] [place], [address] GFR/1.73 sq M.predicted among non-blacks MDRD (S/P/Bld) [Vol rate/Area] 55 mL/min/{1.73_m2} Low >60 [facility] Comment on above: Result Comment: Non- GFR Calc Performed By: #### L 100.0100, L500.4050, L501.6710 ####[facility] [address] [place], [address] Globulin (S) [Mass/Vol] 3.9 g/dL Normal 2.2-4.2 [facility] Comment on above: Performed By: #### L 100.0100, L500.4050, L501.6710 ####[facility] [address] [place], [address] Glucose [Mass/Vol] 102 mg/dL Normal 74-106 [facility] Comment on above: Result Comment: Fast ing Glucose result from 100 to 125 mg/dLsuggests IMPAIRED HOMEOSTASIS per A.D.A. criteria. Performed By: #### L 100.0100, L500.4050, L501.6710 ####[facility] [address] [place], [address] Potassium [Moles/Vol] 4.4 mmol/L Normal 3.5-5.1 [facility] Comment on above: Performed By: #### L 100.0100, L500.4050, L501.6710 ####[facility] [address] [place], [address] Sodium [Moles/Vol] 137 mmol/L Normal 136-145 [facility] Comment on above: Performed By: #### L 100.0100, L500.4050, L501.6710 ####[facility] [address] [place], [address] T PROT 7.6 g/dL Normal 6.4-8.2 [facility] Comment on above: Performed By: #### L 100.0100, L500.4050, L501.6710 ####[facility] [address] [place], [address] Urea nitrogen [Mass/Vol] 14 mg/dL Normal 7-18 [facility] Comment on above: Performed By: #### L 100.0100, L500.4050, L501.6710 ####[facility] [address] [place], [address] Creatinine [Mass/Vol]Ordered By: Fiona Chance on 11-27-2024 Serum or plasma creatinine measurement (mass/volume) 1.35 mg/dL High 0.70-1.30 [facility] Eosinophil percentageOrdered By: Fiona Chance on 11-27-2024 Eosinophils/100 WBC (Bld) 7.2 % High 0-5 [facility] Eosinophil percentage 7.2 % High 0-5 [facility] Erythrocyte distribution wid th (RBC) [Ratio]Ordered By: Fiona Chance on 11-27-2024 Erythrocyte distribution width ratio 14.9 % High 11.6-14.6 [facility] Erythrocyte distribution wid th ratioOrdered By: Fiona Chance on 11-27-2024 Erythrocyte distribution width (RBC) [Ratio] 14.9 % High 11.6-14.6 [facility] Erythrocyte distribution wid th standard deviationOrdered By: Fiona Chance on 11-27-2024 Erythrocyte distribution width (RBC) [Ratio] 61.4 fl High 35.1-43.9 [facility] Erythrocyte distribution width standard deviation 61.4 fl High 35.1-43.9 [facility] Estimated glomerular filtrat ion rate (GFR) AmericanOrdered By: Fiona Chance on 11-27-2024 Estimated glomerular filtration rate (GFR) 66 mL/min >60 [facility] Glomerular filtration rate ( GFR) estimationOrdered By: Fiona Chance on 11-27-2024 GFR/1.73 sq M.predicted among non-blacks MDRD (S/P/Bld) [Vol rate/Area] 55 mL/min/{1.73_m2} Low >60 [facility] Glomerular filtration rate (GFR) estimation 55 mL/min Low >60 [facility] Glucose measurementOrdered B y: Fiona Chance on 11-27-2024 Glucose [Mass/Vol] 102 mg/dL 74-106 [facility] Glucose measurement 102 mg/dL 74-106 [facility] Hematocrit Auto (Bld) [Volum e fraction]Ordered By: Fiona Chance on 11-27-2024 Hematocrit (Bld) [Volume fraction] 36.2 % Low 40-54 [facility] Automated blood hematocrit (percentage) 36.2 % Low 40-54 [facility] Hemoglobin measurementOrdere d By: Fiona Chance on 11-27-2024 Hemoglobin (Bld) [Mass/Vol] 11.3 g/dL Low 13.0-16.5 [facility] Hemoglobin measurement 11.3 g/dL Low 13.0-16.5 [facility] Immature granulocytes/100 WB C Auto (Bld)Ordered By: Fiona Chance on 11-27-2024 Immature granulocytes/100 WBC (Bld) 0.500 % 0.0-0.9 [facility] Automated immature granulocyte percentage 0.500 % 0.0-0.9 [facility] Lymphocytes Auto (Unsp spec) [#/Vol]Ordered By: Fiona Chance on 11-27-2024 Absolute lymphocyte count 1.42 X10^3/uL 0.83-4.51 [facility] Lymphocytes/100 WBC Auto (Un sp spec)Ordered By: Fiona Chance on 11-27-2024 Automated lymphocyte count as percentage of total leukocytes 17.5 % Low 19-41 [facility] MCV (RBC) [Entitic vol]Order ed By: Fiona Chance on 11-27-2024 MCV (mean corpuscular volume) determination 110.0 fL High 80-94 [facility] MCV (mean corpuscular volume ) determinationOrdered By: Fiona Chance on 11-27-2024 MCV (RBC) [Entitic vol] 110.0 fL High 80-94 [facility] Mean corpuscular hemoglobin (MCH) determinationOrdered By: Fiona Chance on 11-27-2024 MCH (RBC) [Entitic mass] 34.3 pg High 27.0-32.0 [facility] Mean corpuscular hemoglobin (MCH) determination 34.3 pg High 27.0-32.0 [facility] Mean corpuscular hemoglobin concentration (MCHC) determinationOrdered By: Fiona Chance on 11-27-2024 Mean corpuscular hemoglobin concentration (MCHC) determination 31.2 g/dL Low 32-36 [facility] Mean platelet volume determi nationOrdered By: Fiona Chance on 11-27-2024 Mean platelet volume determination 9.6 fl 6.2-12.0 [facility] Monocyte percentageOrdered B y: Fiona Chance on 11-27-2024 Monocytes/100 WBC (Bld) 9.9 % 0-10 [facility] Monocyte percentage 9.9 % 0-10 [facility] Neutrophil percentageOrdered By: Fiona Chance on 11-27-2024 Neutrophils/100 WBC (Bld) 63.5 % 47-70 [facility] Neutrophil percentage 63.5 % 47-70 [facility] No Panel InformationOrdered By: Fiona Chance on 02-14-2025 21 U/L 15-37 [facility] Nucleated red blood cell per centageOrdered By: Fiona Chance on 11-27-2024 Nucleated red blood cell percentage 0 % 0-5 [facility] Platelet countOrdered By: Tim Chance on 11-27-2024 Platelets (Bld) [#/Vol] 263 10*3/uL 150-450 [facility] Platelet count 263 K/mm3 150-450 [facility] Potassium measurementOrdered By: Fiona Chance on 11-27-2024 Potassium [Moles/Vol] 4.4 mmol/L 3.5-5.1 [facility] Potassium measurement 4.4 mmol/L 3.5-5.1 [facility] RBC Auto (Bld) [#/Vol]Ordere d By: Fiona Chance on 11-27-2024 RBC (Bld) [#/Vol] 3.29 10*6/uL Low 4.6-6.2 [facility] Automated blood erythrocyte count 3.29 M/mm3 Low 4.6-6.2 [facility] Serum anion gap measurementO rdered By: Fiona Chance on 11-27-2024 Serum anion gap measurement 4 Low 5-15 [facility] Serum globulin measurementOr dered By: Fiona Chance on 11-27-2024 Globulin (S) [Mass/Vol] 3.9 g/dL 2.2-4.2 [facility] Serum globulin measurement 3.9 g/dL 2.2-4.2 [facility] Serum or plasma alanine koehler otransferase (ALT) measurementOrdered By: Fiona Chance on 11-27-2024 ALT [Catalytic activity/Vol] 22 U/L 16-61 [facility] Serum or plasma albumin fernando urement (mass/volume)Ordered By: Fiona Chance on 11-27-2024 Albumin [Mass/Vol] 3.7 g/dL 3.2-5.0 [facility] Serum or plasma alkaline mahsa sphatase measurementOrdered By: Fiona Chance on 11-27-2024 ALP [Catalytic activity/Vol] 77 U/L 45-117 [facility] Serum or plasma calcium fernando urement (mass/volume)Ordered By: Fiona Chance on 11-27-2024 Calcium [Mass/Vol] 9.6 mg/dL 8.5-10.1 [facility] Serum or plasma creatinine m easurement (mass/volume)Ordered By: Fiona Chance on 11-27-2024 Creatinine [Mass/Vol] 1.35 mg/dL High 0.70-1.30 [facility] Serum or plasma urea nitroge n measurement (mass/volume)Ordered By: Fiona Chance on 11-27-2024 Urea nitrogen [Mass/Vol] 14 mg/dL - [facility] Sodium levelOrdered By: Radha Chance on 11-27-2024 Sodium [Moles/Vol] 137 mmol/L 136-145 [facility] Sodium level 137 mmol/L 136-145 [facility] Total proteinOrdered By: Diamond Chance on 11-27-2024 Protein [Mass/Vol] 7.6 g/dL 6.4-8.2 [facility] Total protein 7.6 g/dL 6.4-8.2 [facility] Urea nitrogen [Mass/Vol]Orde red By: Fiona Chance on 11-27-2024 Serum or plasma urea nitrogen measurement (mass/volume) 14 mg/dL 04-30 [facility] White blood cell (WBC) count Ordered By: Fiona Chance on 11-27-2024 WBC (Bld) [#/Vol] 8.1 10*3/uL 4.4-11.0 [facility] White blood cell (WBC) count 8.1 K/mm3 4.4-11.0 [facility] Chest without Contraston Chest without Contrast Normal [facility] Calprotectin, Stoolon [address] 220 ug/g Abnormal 0-120 [facility] Comment on above: Result Comment: Conc entration Interpretation Follow-Up< 5 - 50 ug/g Normal None>50 -120 ug/g Borderline Re-evaluate in 4-6 weeks >120 ug/g Abnormal Repeat as clinically indicatedPerformed at: - [facility] [id number] Director: Saud Nicholas MD, Phone: [phone] Performed By: #### L 7000.0750, L7000.0700 ####[facility] [address] [place], [address] L3410.9999on 11-18-2024 [facility]. COMMENT Normal . [facility] Comment on above: Order Comment: [id number] 7HLA DQ2 DQ8 EDTA RT Result Comment: Test Ordered: [id number] Celiac HLA Rflx to AbsDQ2 (DQA1 0501/0505,DQB1 02XX) Negative 2Q Reference Range: .DQ8 (DQA1 03XX,DQB1 0302) Negative 2Q Reference Range: .Final Results:DQB1*05:01:01G,06:03:10SWQM6*01:01:01G,01:03:01GThe patient is not positive for any of the HLA DQ riskalleles. Celiac disease risk from the HLA DQA/DQBgenotype is approximately 1:2518 (<0.04%). This resultessentially rules out celiac disease.HLA allele interpretation for all loci based on IMGT/HLAdatabase version 3.53.0This test was developed and its performance characteristicsdetermined by [facility]. It has not been cleared or approvedby the Food and Drug Administration.The FDA has determined that such clearance or approval isnot necessary.HLA Lab CLIA ID Number [id number] than 95% of celiac patients are positive for eitherDQ2 or DQ8 (Jovanny and Samm, (1993) [id number]). However these antigens may also be present inpatients who do not have Celiac disease.HLA NGS Methodology Comment 2Q Reference Range: .HLA results were obtained using Next GenerationSequencing (NGS). Supplemental procedures based onsequence based typing (SBT) and/or sequence specificoligonucleotide probes (SSOP) may be used as needed toobtain the required resolution.If you have questions, please call HLA customer serviceat or email at [email or web address].Additional Information: Comment 2Q Reference Range: .References:1. Terry Heredia, Daisy S, Jai Capellan, and Jose S, A Clinician's Guide to Celiac Disease HLA Genetics. Am J Gastroenterol 2019; 00:1-6. http://doi.org/10.07374/ajg.81017297291190832. Herb F, Flora B, Sally M, et al. HLA-DQ and risk gradient for celiac disease. Hum Immunol 2009; 70:55-59.3. Jesus MM, Ovidio TC, Daniel MJ and Erica RM. Stratifying risk for celiac disease in a large at-risk [place] population by using HLA alleles. Clin Gastroenterol Hepatol 2009; 7:966-971.Reflex to Celiac Ab Testing Note: 2Q Not indicated. Reference Range: .Performed at: - [address] [id number] Director: Vera Garnett PhD, Phone: [phone] at: [address] [id number] Director: Lucian Huntley PhD, Phone: [phone] Performed By: #### L 3410.9999 ####[facility] [address] [place], [place], [address] L7000.0750on 11-16-2024 P ELASTASE,FECA 782 Normal >200 [facility] Comment on above: Result Comment: Resu lt Units: ug Elast./g Severe Pancreatic Insufficiency: <100 Moderate Pancreatic Insufficiency: 100 - 200 Normal: >200Performed at: - Lab[address] [id number] Director: Saud Nicholas MD, Phone: [phone] Performed By: #### L 7000.0750, L7000.0700 ####[facility] [address] [place], [place], [address] Calprotectin stoolOrdered By : Fiona Chance on 11-13-2024 Calprotectin stool 220 ug/g High 0-120 [facility] Calprotectin stool 220 ug/g High 0-120 [facility] Elastase.pancreatic (Stl) [M ass/Mass]Ordered By: Fiona Chance on 11-13-2024 Stool pancreatic elastase measurement (mass/mass) 782 >200 [facility] Stool pancreatic elastase me asurement (mass/mass)Ordered By: Fiona Chance on 11-13-2024 Elastase.pancreatic (Stl) [Mass/Mass] 782 >200 [facility] ANCAon 11-12-2024 Atypical pANCA <1:20 Normal Neg:<1:20 [facility] Comment on above: Result Comment: The atypical pANCA pattern has been observed in asignificant percentage of patients with ulcerative colitis,primary sclerosing cholangitis and autoimmune hepatitis. Performed By: #### L 505.7010, L4600.0100, L3100.5450, L3300.1200 ####[facility] [address] [place], [address] Cytoplasmic Ab <1:20 Normal Neg:<1:20 [facility] Comment on above: Performed By: #### L 505.7010, L4600.0100, L3100.5450, L3300.1200 ####[facility] [address] [place], [address] Perinuclear Ab. <1:20 Normal Neg:<1:20 [facility] Comment on above: Result Comment: The presence of positive fluorescence exhibiting P-ANCA orC-ANCA patterns alone is not specific for the diagnosis ofWegener's Granulomatosis (WG) or microscopic polyangiitis.Decisions about treatment should not be based solely onANCA IFA results. The International ANCA Group Consensusrecommends follow up testing of positive sera with both DE-3 and MPO-ANCA enzyme immunoassays. As many as 5% serumsamples are positive only by EIA. Ref. AM J Clin Zahqrs7975;111:507-513. Performed By: #### L 505.7010, L4600.0100, L3100.5450, L3300.1200 ####[facility] [address] [place], [address] CCP IgG Antibodieson 025 CCP IgG Ab. 2 units Normal 0-19 [facility] Comment on above: Result Comment: Nega tive <20 Weak positive 20 - 39 Moderate positive 40 - 59 Strong positive >59Performed at: [place] [id number] [place], [place] [id number] Director: Lucian Huntley PhD, Phone: [phone] Performed By: #### L 505.7010, L4600.0100, L3100.5450, L3300.1200 ####[facility] [address] [facility]. [place], [place], [address] L3410.9999on 11-12-2024 [facility] Misc. Normal [facility] Comment on above: Order Comment: [id number] 8TTG IGG SERUM RT Result Comment: TEST RESULTS LIMITSt-Transglutaminase (tTG) IgG 5 U/mL 0-5 Negative 0 - 5 Weak Positive 6 - 9 Positive >9 TESTING PERFORMED AT [facility]. ORIGINAL REPORT ON FILE IN LAB CONTAINS ADDITIONAL TEST SITE INFORMATION. Performed By: #### L 3410.9999 ####[facility] [address] [facility]. [place], [place], [address] FRANCISCA w/ Reflex Mult Confirmon 11-11-2024 FRANCISCA,DIRECT Negative Normal Negative [facility] Comment on above: Result Comment: Perf ormed at: [address] [id number] Director: Lucian Huntley PhD, Phone: [phone] Performed By: #### L 505.7010, L4600.0100, L3100.5450, L3300.1200 ####[facility] [address] [facility], [place], [address] L3410.9999on 11-11-2024 [facility]. COMMENT Normal . [facility] Comment on above: Order Comment: [id number] 0TTG IGA SERUM RT Result Comment: Test Ordered: [id number] t-Transglutaminase (tTG) IgAt-Transglutaminase (tTG) IgA <2 U/mL CB Reference Range: 0-3 Negative 0 - 3 Weak Positive 4 - 10 Positive >10 Tissue Transglutaminase (tTG) has been identified as the endomysial antigen. Studies have demonstr- ated that endomysial IgA antibodies have over 99% specificity for gluten sensitive enteropathy.Performed at: [address] [id number] Director: Lucian Huntley PhD, Phone: [phone] Performed By: #### L 3410.9999 ####[facility] [address] [place], [place], [id number] [facility]. COMMENT Normal . [facility] Comment on above: Order Comment: [id number] 4IGA TOTAL SERUM RT Result Comment: Test Ordered: [id number] Immunoglobulin A, Qn, SerumImmunoglobulin A, Qn, Serum 365 mg/dL CB Reference Range: 61-437Performed at: [address] [id number] Director: Lucian Huntley PhD, Phone: [phone] Performed By: #### L 3410.9999 ####[facility] [address] [place], [place], [id number] FRANCISCA serumOrdered By: REEMA Rodarte on 11-09-2024 FRANCISCA serum Negative Negative [facility] Cyclic citrullinated peptide IgG QnOrdered By: REEMA Rodarte on 11-09-2024 Serum or plasma cyclic citrullinated peptide IgG antibody assay (units/volume) 2 units 0-19 [facility] Gastroenterology Visit Repor ton 11-09-2024 Gastroenterology Visit Report Normal [facility] No Panel InformationOrdered By: Fiona Chance on 11-09-2024 COMMENT . [facility] Rheumatoid Factoron 11-09-19 25 RHEUMATOID FAC < 10.0 Normal <15 [facility] Comment on above: Performed By: #### L 505.7010, L4600.0100, L3100.5450, L3300.1200 ####[facility] [address] [place], [address] Rheumatoid factor measuremen tOrdered By: REEMA Rodarte on 11-09-2024 Rheumatoid factor measurement < 10.0 IU/mL <15 [facility] Serum DNA double strand anti body assay (units/volume)Ordered By: REEMA Rodarte on 11-09-2024 DNA double strand Ab Qn (S) TNP [facility] Serum DNA double strand antibody assay (units/volume) [facility] Serum Scl-70 antibody assay (units/volume)Ordered By: REEMA Rodarte on 11-09-2024 SCL-70 extractable nuclear [facility]n [facility] classic neutrophil cyt oplasmic antibody assay (units/volume)Ordered By: REEMA Rodarte on 11-09-2024 Neutrophil cytoplasmic Ab.classic Qn (S) <1:20 titer Neg:<1:20 [facility] Serum classic neutrophil cytoplasmic antibody assay (units/volume) <1:20 titer Neg:<1:20 [facility] Serum or plasma cyclic citru llinated peptide IgG antibody assay (units/volume)Ordered By: REEMA Rodarte on 11-09-2024 Cyclic citrullinated peptide IgG Qn 2 units 0-19 [facility] Serum perinuclear neutrophil cytoplasmic antibody titer by immunofluorescenceOrdered By: REEMA Rodarte on 11-09-2024 Neutrophil cytoplasmic Ab.perinuclear IF (S) [Titer] <1:20 titer Neg:<1:20 [facility] Pulmonary Visit Reporton Pulmonary Visit Report Normal [facility] Absolute neutrophil countOrd ered By: Shalini Ferrari on 10-20-2024 Absolute neutrophil count 7.6 X10^3/uL 2.0-7.7 [facility] Basophil percentageOrdered B y: Shalini Ferrari on 10-20-2024 Basophil percentage 1.0 % 0-1 [facility] CBC W/Diff, Automatedon 01-0 7-2024 Absolute Lymph 1.17 X10 3/uL Normal 0.83-4.51 [facility] Comment on above: Performed By: #### L 100.0100 ####[facility] [address] [place], [id number] Absolute Neut 7.6 X10 3/uL Normal 2.0-7.7 [facility] Comment on above: Performed By: #### L 100.0100 ####[facility] [address] [place], [address] Basophils/100 WBC (Bld) 1.0 % Normal 0-1 [facility] Comment on above: Performed By: #### L 100.0100 ####[facility] [address] [place], [address] Eosinophils/100 WBC (Bld) 5.8 % High 0-5 [facility] Comment on above: Performed By: #### L 100.0100 ####[facility] [address] [place], [address] Erythrocyte distribution width (RBC) [Ratio] 13.4 % Normal 11.6-14.6 [facility] Comment on above: Performed By: #### L 100.0100 ####[facility] [address] [place], [address] Hematocrit (Bld) [Volume fraction] 42.0 % Normal 40-54 [facility] Comment on above: Performed By: #### L 100.0100 ####[facility] [address] [place], [address] Hemoglobin (Bld) [Mass/Vol] 13.1 g/dL Normal 13.0-16.5 [facility] Comment on above: Performed By: #### L 100.0100 ####[facility] [address] [place], [address] IG% 0.400 Normal 0.0-0.9 [facility] Comment on above: Result Comment: IG% - Immature Granulocytes (promyelocytes, myelocytes andmetamyelocytes) > 1% indicates that a LEFT SHIFT is Present. Performed By: #### L 100.0100 ####[facility] [address] [place], [id number] Lymphocytes/100 WBC (Bld) 11.3 % Low 19-41 [facility] Comment on above: Performed By: #### L 100.0100 ####[facility] [address] [place], [id number] MCH (RBC) [Entitic mass] 32.8 pg High 27.0-32.0 [facility] Comment on above: Performed By: #### L 100.0100 ####[facility] [address] [place], [address] MCHC (RBC) [Mass/Vol] 31.2 g/dL Low 32-36 [facility] Comment on above: Performed By: #### L 100.0100 ####[facility] [address] [place], [id number] MCV (RBC) [Entitic vol] 105.0 fL High 80-94 [facility] Comment on above: Performed By: #### L 100.0100 ####[facility] [address] [place], [address] Monocytes/100 WBC (Bld) 8.3 % Normal 0-10 [facility] Comment on above: Performed By: #### L 100.0100 ####[facility] [address] [place], [id number] Neutrophils/100 WBC (Bld) 73.2 % High 47-70 [facility] Comment on above: Performed By: #### L 100.0100 ####[facility] [address] [place], [address] Nucleated RBC (Bld) [#/Vol] 0 10*3/uL Normal 0-5 [facility] Comment on above: Performed By: #### L 100.0100 ####[facility] [address] [place], [address] Platelet mean volume (Bld) [Entitic vol] 9.6 fL Normal 6.2-12.0 [facility] Comment on above: Performed By: #### L 100.0100 ####[facility] [address] [place], [address] Platelets (Bld) [#/Vol] 252 10*3/uL Normal 150-450 [facility] Comment on above: Performed By: #### L 100.0100 ####[facility] [address] [place], [address] RBC (Bld) [#/Vol] 4.00 10*6/uL Low 4.6-6.2 [facility] Comment on above: Performed By: #### L 100.0100 ####[facility] [address] [place], [address] RDW SD 52.4 fl High 35.1-43.9 [facility] Comment on above: Performed By: #### L 100.0100 ####[facility] [address] [place], [address] WBC (Bld) [#/Vol] 10.4 10*3/uL Normal 4.4-11.0 [facility] Comment on above: Performed By: #### L 100.0100 ####[facility] [address] [place], [address] Eosinophil percentageOrdered By: Shalini Ferrari on 10-20-2024 Eosinophil percentage 5.8 % High 0-5 [facility] Erythrocyte distribution wid th (RBC) [Ratio]Ordered By: Shalini Ferrari on 10-20-2024 Erythrocyte distribution width ratio 13.4 % 11.6-14.6 [facility] Erythrocyte distribution wid th standard deviationOrdered By: Shalini Ferrari on 10-20-2024 Erythrocyte distribution width standard deviation 52.4 fl High 35.1-43.9 [facility] Hematocrit Auto (Bld) [Volum e fraction]Ordered By: Shalini Ferrari on 10-20-2024 Automated blood hematocrit (percentage) 42.0 % 40-54 [facility] Hemoglobin measurementOrdere d By: Shalini Ferrari on 10-20-2024 Hemoglobin measurement 13.1 g/dL 13.0-16.5 [facility] Immature granulocytes/100 WB C Auto (Bld)Ordered By: Shalini Ferrari on 10-20-2024 Automated immature granulocyte percentage 0.400 % 0.0-0.9 [facility] Internal Medicine Office Vis iton 10-20-2024 Internal Medicine Office Visit Normal [facility] Lymphocytes Auto (Unsp spec) [#/Vol]Ordered By: Shalini Ferrari on 10-20-2024 Absolute lymphocyte count 1.17 X10^3/uL 0.83-4.51 [facility] Lymphocytes/100 WBC Auto (Un sp spec)Ordered By: Shalini Ferrari on 10-20-2024 Automated lymphocyte count as percentage of total leukocytes 11.3 % Low 19-41 [facility] MCV (RBC) [Entitic vol]Order ed By: Shalini Ferrari on 10-20-2024 MCV (mean corpuscular volume) determination 105.0 fL High 80-94 [facility] Mean corpuscular hemoglobin (MCH) determinationOrdered By: Shalini Ferrari on 10-20-2024 Mean corpuscular hemoglobin (MCH) determination 32.8 pg High 27.0-32.0 [facility] Mean corpuscular hemoglobin concentration (MCHC) determinationOrdered By: Shalini Ferrari 10-20-2024 Mean corpuscular hemoglobin concentration (MCHC) determination 31.2 g/dL Low 32-36 [facility] Mean platelet volume determi nationOrdered By: Shalini Ferrari on 10-20-2024 Mean platelet volume determination 9.6 fl 6.2-12.0 [facility] Monocyte percentageOrdered B y: Shalini Ferrari on 10-20-2024 Monocyte percentage 8.3 % 0-10 [facility] Neutrophil percentageOrdered By: Shalini Ferrari on 10-20-2024 Neutrophil percentage 73.2 % High 47-70 [facility] Nucleated red blood cell per centageOrdered By: Shalini Ferrari on 10-20-2024 Nucleated red blood cell percentage 0 % 0-5 [facility] Platelet countOrdered By: Do hayeslonnie Terry on 10-20-2024 Platelet count 252 K/mm3 150-450 [facility] RBC Auto (Bld) [#/Vol]Ordere d By: Shalini Terry on 10-20-2024 Automated blood erythrocyte count 4.00 M/mm3 Low 4.6-6.2 [facility] White blood cell (WBC) count Ordered By: Shalini Terry on 10-20-2024 White blood cell (WBC) count 10.4 K/mm3 4.4-11.0 [facility] CNOVon 09-30-2024 CNOV Office Visit ([facility]AMA ) -------- ELIGIO MCCABE ([id number]) 1950 M Date Time Provider Department 09/30/24 1:00 PM DAVID VALDES JR During your visit today, we recorded the following information about you: Pulse Blood pressure 62/minute 128/84 David Valdes Jr., MD 09/30/2024 1:20 PM Signed ESTABLISHED PATIENT OFFICE VISIT HPI Eligio Mccabe is a 74 year old male with history of BPH s/p TURP. Voiding without issue at home. No gross hematuria or dysuria. Continues to have nocturia 3x. Pathology revealed benign prostatic tissue. Overall happy with decision to undergo surgery. MEDICATIONS: tamsulosin (FLOMAX) 0.4 mg TAKE ONE CAPSULE BY MOUTH EVERY DAY 30 MINUTES AFTER THE SAME MEAL EACH DAY acetaminophen/diphenhydr amine (TYLENOL PM ORAL) Take 2 tablets by mouth daily at bedtime. budesonide, enteric coated (ENTOCORT EC) 3 mg 24 hr capsule Take 6 mg by mouth once daily. OXYGEN, HOME THERAPY, 3 L/min by Nasal Cannula route as directed. Uses 3L via nasal cannula daily and at 4L via Nasal cannula at night fluticasone (FLONASE) 50 mcg/actuation nasal spray Use 2 Sprays in each nostril once daily. docusate sodium (COLACE) 100 mg capsule Take 100 mg by mouth once daily. pantoprazole DR (PROTONIX) 40 mg tablet Take 40 mg by mouth two times a day. pravastatin (PRAVACHOL) 40 mg tablet Take 40 mg by mouth daily at bedtime. MULTIVITAMIN ORAL Take by mouth once daily. carboxymethylcellulose (REFRESH) 0.5 % drop Use 1 Drop in both eyes every 4 hours as needed. 4-6 times daily as needed ipratropium-albuterol (DUONEB) 0.5 mg-3 mg(2.5 mg base)/3 mL nebu Inhale 3 mL as instructed two times a day. Walker [facility] Rollator walker with seat wtmyoumjood-jhqdfwrqu-jl lanter (TRELEGY ELLIPTA) 100-62.5-25 mcg inhalation powder Inhale 1 Puff as instructed once daily. albuterol HFA (PROAIR HFA) 90 mcg/actuation inhaler Inhale 2 Puffs as instructed every 4 hours as needed for Wheezing/Shortness of Breath. atenolol 50 mg tablet Take 50 mg by mouth once daily. traZODone 100 mg tablet Take 100 mg by mouth daily at bedtime. MULTIVIT ANDMINERALS/FERROUS FUM (MULTI VITAMIN ORAL) Take 1 tablet by mouth once daily. GLUCOSAMINE HCL/CHONDR RATLIFF A NA (OSTEO BI-FLEX ORAL) Take 2 tablets by mouth once daily. predniSONE (DELTASONE) 10 mg tablet Take 4 tablets daily for 2 days, 2 tablets daily for 2 days, 1 tablet daily for 2 days (Patient not taking: Reported on 02/25/2024) gabapentin (NEURONTIN) 600 mg tablet Take 600 mg by mouth three times a day. venlafaxine XR (EFFEXOR XR) 150 mg 24 hr capsule Take 150 mg by mouth once daily. HYDROCODONE/ACETAMINOPHE N (VICODIN ES ORAL) Take 10-325 mg by mouth three times a day. 325 mg 4 x daily (Patient not taking: Reported on 02/25/2024) cyclobenzaprine (FLEXERIL) 10 mg tablet Take 10 mg by mouth three times a day as needed. (Patient not taking: Reported on 06/25/2024) zolpidem 10 mg tab Take by mouth at bedtime as needed. Ibuprofen 200 mg cap Take by mouth. 4 tablets prn ranitidine 150 mg tablet Take 150 mg by mouth twice daily. 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 Chronic pain Chronic respiratory failure with hypoxia ([facility]) O2 @ 3L/NC 24x7 COPD (chronic obstructive pulmonary disease) ([facility]) Depressive disorder, not elsewhere classified Drop foot gait Dry eye syndrome of bilateral lacrimal glands Essential (primary) hypertension Essential hypertension, benign Former smoker Gastric ulcer, unspecified as acute or chronic, without hemorrhage or perforation Gastroesophageal reflux disease without esophagitis High cholesterol History of echocardiogram History of GI bleed History of hiatal hernia History of stomach ulcers History of stress test Hyperkalemia 12/03/2023 Hyperlipidemia, unspecified Insomnia, unspecified Irritable bowel syndrome with diarrhea Major depressive disorder, single episode, unspecified Mixed hyperlipidemia Neuropathy Obstructive and reflux uropathy, unspecified Osteoarthrosis, unspecified whether generalized or localized, unspecified site Polyneuropathy, unspecified Retention of urine, unspecified Syncope Tobacco use disorder Unspecified hyperplasia of prostate without urinary obstruction and other lower urinary tract symptoms (LUTS) Unspecified protein-calorie malnutrition (HCC) Urine retention Wears dentures Wears glasses FAMILY HISTORY Problem Relation Age of Onset Heart Mother Depression Mother Hypertension Father Stroke Father other (Thyroid disorder) Sister SOCIAL HISTORY Social History Tobacco Use Smoking status: Former Current packs/day: (more content not included)... Normal [facility] UA DIP, URINE (POC)on 2023 BILIRUBIN UA (POCT) Negative Negative [facility] CLARITY UA (POCT) [facility] COLOR UA (POCT) Yellow [facility] GLUCOSE UA (POCT) Negative Negative mg/dL [facility] Hemoglobin Ql (U) Trace-intact Abnormal Negative [facility] Interpretation and review of laboratory results Abnormal [facility] KETONE UA (POCT) Trace Negative mg/dL [facility] LEUKOCYTES UA (POCT) Negative [facility] ([facility]) Negative Negative [facility] PH UA (POCT) 5.5 4.5 - 8.0 [facility] Protein Ql (U) Trace Abnormal Negative mg/dL [facility] SPECIFIC GRAVITY UA (POCT) 1.020 1.005 - 1.030 [facility] UROBILINOGEN UA (POCT) 0.2 Roxi l E.U./dL [facility] Location:[facility], [address] [place] [address], [address] [place] [address] POINT OF CARE [facility] Pulmonary Visit Reporton Pulmonary Visit Report Normal [facility] PSA/PROSTATE SPECIFIC ANTIGE N SCREENINGon 09-23-2024 Prostate specific Ag [Mass/Vol] 0.39 ng/mL Normal <2.60 [facility] Comment on above: Order Comment: Speci men Type: BLOOD SPECIMEN Ordering Facility: [facility] Address: [address] [place] [address] Result Comment: Tota l PSA test methodology used is the Electrochemiluminescence Immunoassay by [employer]. Total PSA values by differing methodologies cannot be interchanged. Performed By: #### P SAS1 #### [facility] CLIA [id number] [address] [place] [address] [place] 6 Minute Walk Teston 024 6 Minute Walk Test Normal [facility] Pulmonary Visit Reporton Pulmonary Visit Report Normal [facility] Hepatitis C Antibodyon 07-01 Hepatitis C AB Non-Reactive Normal Nonreactive [facility] Comment on above: Order Comment: Reaso n for Exam: exposure Result Comment: Non Reactive: < 0.8 Equivocal: >/= 0.8 to < 1.0 Reactive: >/= 1.0The CDC requires that a reactive/equivocal HCV antibodyresult be sent out for confirmation. HCV Quant by PCRtesting. Performed By: #### L 3890.6300, L500.4100 ####[facility] [address] [place], [address] Internal Medicine Office Vis iton 07-01-2024 Internal Medicine Office Visit Normal [facility] Lipid Profileon 07-01-2024 Cholesterol [Mass/Vol] 168 mg/dL Normal 200 [facility] Comment on above: Result Comment: <200 mg/dL Desirable 200-240 mg/dL Borderline >240 mg/dL High Risk Performed By: #### L 3890.6300, L500.4100 ####[facility] [address] [place], [address] Cholesterol in HDL [Mass/Vol] 70 mg/dL Normal [facility] Comment on above: Result Comment: The drugs N-Acetylcysteine and Metamizole may falselydepress this assay. Reference Range HDL <40 mg/dL Low HDL Cholesterol HDL >or= 60 mg/dL High HDL Cholesterol Performed By: #### L 3890.6300, L500.4100 ####[facility] [address] [place], [address] Cholesterol in LDL [Mass/Vol] 80 mg/dL Normal 0-130 [facility] Comment on above: Performed By: #### L 3890.6300, L500.4100 ####[facility] [address] [place], [address] Cholesterol in VLDL [Mass/Vol] 18 mg/dL Normal 5-40 [facility] Comment on above: Performed By: #### L 3890.6300, L500.4100 ####[facility] [address] [place], [address] Triglyceride [Mass/Vol] 88 mg/dL Normal [facility] Comment on above: Result Comment: The drugs N-Acetylcysteine and Metamizole may falselydepress this assay.Serum Triglycerides Reference Interval Normal <150 mg/dL Borderline high 150 - 199 mg/dL High 200 - 499 mg/dL Very High > or = 500 mg/dL Performed By: #### L 3890.6300, L500.4100 ####[facility] [address] [place], [address] Bacteria Ur Culton 4 Bacteria identified Cx Nom (U) CULTURE, URINE: No growth (<1,000 CFU/ml) Normal [facility] Comment on above: Performed By: #### 6 30-4 ####[facility]ORATORYCLIA [id number] [place] [address] [facility] CNOVon 06-25-2024 CNOV Office Visit (AKURFL ) -------- EILGIO MCCABE ([id number]) 1950 M Date Time Provider Department 06/25/24 1:00 PM DAVID VALDES JR During your visit today, we recorded the following information about you: Pulse Height 52/minute 1.829 m David Valdes Jr., MD 06/25/2024 1:53 PM Signed ESTABLISHED PATIENT OFFICE VISIT HPI Eligio Mccabe is a 74 year old male who presents with a history of BPH s/p TRUP. Passed void trial POD1. Voiding well at home. No gross hematuria. No dysuria. Nocturiax2 significantly improved. states patient is a changed person since procedure-very pleased. Pathology: benign prostatic tissue. MEDICATIONS: acetaminophen/diphenhydr amine (TYLENOL PM ORAL) Take 2 tablets by mouth daily at bedtime. budesonide, enteric coated (ENTOCORT EC) 3 mg 24 hr capsule Take 6 mg by mouth once daily. OXYGEN, HOME THERAPY, 3 L/min by Nasal Cannula route as directed. Uses 3L via nasal cannula daily and at 4L via Nasal cannula at night fluticasone (FLONASE) 50 mcg/actuation nasal spray Use 2 Sprays in each nostril once daily. docusate sodium (COLACE) 100 mg capsule Take 100 mg by mouth once daily. pantoprazole DR (PROTONIX) 40 mg tablet Take 40 mg by mouth two times a day. pravastatin (PRAVACHOL) 40 mg tablet Take 40 mg by mouth daily at bedtime. MULTIVITAMIN ORAL Take by mouth once daily. carboxymethylcellulose (REFRESH) 0.5 % drop Use 1 Drop in both eyes every 4 hours as needed. 4-6 times daily as needed ipratropium-albuterol (DUONEB) 0.5 mg-3 mg(2.5 mg base)/3 mL nebu Inhale 3 mL as instructed two times a day. Walker misc Rollator walker with seat tamsulosin (FLOMAX) 0.4 mg Take 0.4 mg by mouth once daily. kcbbxdxpyye-purwrbprm-tu lanter (TRELEGY ELLIPTA) 100-62.5-25 mcg inhalation powder Inhale 1 Puff as instructed once daily. predniSONE (DELTASONE) 10 mg tablet Take 4 tablets daily for 2 days, 2 tablets daily for 2 days, 1 tablet daily for 2 days (Patient not taking: Reported on 02/25/2024) albuterol HFA (PROAIR HFA) 90 mcg/actuation inhaler Inhale 2 Puffs as instructed every 4 hours as needed for Wheezing/Shortness of Breath. gabapentin (NEURONTIN) 600 mg tablet Take 600 mg by mouth three times a day. venlafaxine XR (EFFEXOR XR) 150 mg 24 hr capsule Take 150 mg by mouth once daily. HYDROCODONE/ACETAMINOPHE N (VICODIN ES ORAL) Take 10-325 mg by mouth three times a day. 325 mg 4 x daily (Patient not taking: Reported on 02/25/2024) atenolol 50 mg tablet Take 50 mg by mouth once daily. cyclobenzaprine (FLEXERIL) 10 mg tablet Take 10 mg by mouth three times a day as needed. traZODone 100 mg tablet Take 100 mg by mouth daily at bedtime. zolpidem 10 mg tab Take by mouth at bedtime as needed. Ibuprofen 200 mg cap Take by mouth. 4 tablets prn MULTIVIT ANDMINERALS/FERROUS FUM (MULTI VITAMIN ORAL) Take 1 tablet by mouth once daily. ranitidine 150 mg tablet Take 150 mg by mouth twice daily. (Patient not taking: Reported on 01/20/2024) GLUCOSAMINE HCL/CHONDR RATLIFF A NA (OSTEO BI-FLEX ORAL) Take 2 tablets by mouth once daily. Review of Systems Constitutional: Negative for activity change and fever. Gastrointestinal: Negative for abdominal distention, abdominal pain and vomiting. Genitourinary: Negative for hematuria. HISTORIES PAST MEDICAL HISTORY 12/03/2023: NELSON (acute kidney injury) ([facility]) 12/08/2023: Anemia No date: Back pain No date: Benign prostatic hyperplasia with urinary retention No date: BPH with obstruction/lower urinary tract symptoms No date: Chronic pain No date: Chronic respiratory failure with hypoxia ([facility]) Comment: O2 @ 3L/NC 24x7 No date: COPD (chronic obstructive pulmonary disease) ([facility]) No date: Depressive disorder, not elsewhere classified No date: Drop foot gait No date: Dry eye syndrome of bilateral lacrimal glands No date: Essential (primary) hypertension No date: Essential hypertension, benign No date: Former smoker No date: Gastric ulcer, unspecified as acute or chronic, without hemorrhage or perforation No date: Gastroesophageal reflux disease without esophagitis No date: High cholesterol No date: History of echocardiogram No date: History of GI bleed No date: History of hiatal hernia No date: History of stomach ulcers No date: History of stress test 12/03/2023: Hyperkalemia No date: Hyperlipidemia, unspecified No date: Insomnia, unspecified No date: Irritable bowel syndrome with diarrhea No date: Major depressive disorder, single episode, unspecified No date: Mixed hyperlipidemia No date: Neuropathy No date: Obstructive and reflux uropathy, unspecified No date: Osteoarthrosis, unspecified whether generalized or localized, unspecified site No date: Polyneuropathy, unspecified No date: Retention of urine, unspecified No date: Syncope No date: Tobacco use disorder No date: Unspecified hyperplasia o (more content not included)... Normal [facility] UA DIP, URINE (POC)on 2023 BILIRUBIN UA (POCT) Negative Negative [facility] CLARITY UA (POCT) Clear [facility] COLOR UA (POCT) Yellow [facility] GLUCOSE UA (POCT) Negative Negative mg/dL [facility] Hemoglobin Ql (U) Large Abnormal Negative [facility] Interpretation and review of laboratory results Abnormal [facility] KETONE UA (POCT) Negative Negative mg/dL [facility] LEUKOCYTES UA (POCT) Moderate Abnormal Negative [facility] NITRITE UA (POCT) Negative Negative [facility] PH UA (POCT) 6.0 4.5 - 8.0 [facility] Protein Ql (U) 100 mg/dL Abnormal Negative [facility] SPECIFIC GRAVITY UA (POCT) 1.025 1.005 - 1.030 [facility] UROBILINOGEN UA (POCT) 0.2 Roxi l E.U./dL [facility] Location:[facility], [address] [place] [address], [address] [place] [address] POINT OF CARE [facility] OPERATIVE NOon 06-12-2024 OPERATIVE NO HNO ID: [id number] Author: DAVID VALDES JR, MD Service: Urology Author Type: Physician Type: Operative Report Filed: 06/12/2024 14:42 Note Text: [facility] - Operative Report ELIGIO MCCABE : 1950 AGE: 74. SEX: M PATIENT TYPE: V HOSP SVC: URO LOCATION: [facility] ATTENDING PHYSICIAN: DAVID VALDES JR CSN NUMBER: [id number] DATE OF SURGERY/PROCEDURE: 06/03/2024 INCISION/PROCEDURE START TIME: 9:50 AM INCISION CLOSE/PROCEDURE END TIME: 10:45 AM PREOPERATIVE DIAGNOSIS: Benign prostatic hypertrophy with urinary retention. POSTOPERATIVE DIAGNOSIS: Benign prostatic hypertrophy with urinary retention. SURGEON: David Valdes Jr, MD UMBRELLA SUPERVISOR: No Additional Staff SURGERY/PROCEDURE: Cystoscopy with transurethral resection of the prostate. ANESTHESIA: General. COMPLICATIONS: None. HISTORY: Eligio Mccabe is a 74-year-old gentleman with history of urinary retention secondary to enlarged prostate. The patient has now taken for transurethral resection of the prostate. DESCRIPTION OF PROCEDURE: After being explained the risks, benefits, alternatives of the procedure, the patient was correctly identified, taken to the operative suite, placed on the table in dorsal lithotomy position. General anesthesia was induced. The resectoscope was inserted transurethrally into the bladder. The prostate was identified. Resection was begun on the small middle lobe. This was taken down, flushed with the trigone. The lateral lobes were resected in their entirety down the capsule. At this point, hemostasis was achieved. The chips were evacuated from the bladder and sent to lab for pathologic diagnosis. Both ureteral orifices were identified and were unaffected. The external urethral sphincter was intact. At this point, the scope was removed. A 24-Setswana 3-way Rocha catheter was placed transurethrallyinto the bladder and hooked to CBI and straight drain. At this point, the patient was reversed from anesthesia, having tolerated the procedure well and afterwards taken to postoperative care unit for recovery. David Valdes Jr, MD MG:[id number] /[id number] Normal [facility] ANES POSTPROC EVALon 024 ANES POSTPROC EVAL HNO ID: [id number] Author: JAYASHREE ASHRAF MD Service: Anesthesiology Author Type: Physician Type: Anesthesia Postprocedure Evaluation Filed: 06/05/2024 17:29 Note Text: POST ANESTHESIA EVALUATION NOTE : 1950 Procedure Summary Date: 06/03/24 Room / Location: [place] [address] [place] [address] OR Anesthesia Start: 931 Anesthesia Stop: 1102 Procedure: CYSTOSCOPY, RESECTION PROSTATE TRANSURETHRAL (Prostate) Diagnosis: Benign prostatic hyperplasia with urinary retention (Benign prostatic hyperplasia with urinary retention [N40.1, R33.8]) Surgeons: David Valdes Jr., MD Responsible Provider: Jayashree Ashraf MD Anesthesia Type: general ASA Status: 3 Anesthesia Type: general Airway Type: ETT Last Vitals Vitals Value Taken Time BP 122/60 06/03/24 1200 Temp 36.3 ?C (97.3 ?F) 06/03/24 1145 HR SpO2 55 06/03/24 1212 Resp 12 06/03/24 1212 SpO2 100 % 06/03/24 1212 Vitals shown include unfiled device data. Post Anesthesia Patient Status Patient Evaluation: PACU. PACU/ICU Patient Condition: stable. Anticipated Disposition: phase 2 then home. Neurological Status: aware and responsive. Pulmonary Status: breathing comfortably on room air Airway Control: returned to baseline unsupported. Cardiovascular Status: stable. Pain Management: clinically adequate Postoperative Hydration: acceptable. Intraoperative Events: no significant anesthesia events Post Operative Nausea/Vomiting Status: no significant post operative nausea or vomiting Recommendation: continue current plan of care. Anesthesia Observations No Documentation SIGNATURE: Jayashree Ashraf MD PATIENT NAME: Eligio Mccabe DATE: June 05, 2024 TIME: 5:28 PM CSN: [id number] Normal [facility] Basic metabolic 2000 panelon 06-04-2024 Anion gap [Moles/Vol] 9 mmol/L Normal 8-15 [facility] Comment on above: Order Comment: Speci men Type: BLOOD SPECIMENOrdering Facility: [facility] Address: [address] [place] [address] Performed By: #### 2 4321-2 ####[facility]ORATORYCLIA [id number] [place] [address] [place] Calcium [Mass/Vol] 9.0 mg/dL Normal 8.5-10.2 [facility] Comment on above: Order Comment: Speci men Type: BLOOD SPECIMENOrdering Facility: [facility] Address: [address] [place] [address] Performed By: #### 2 4321-2 ####[facility]ORATORYCLIA [id number] [place] [address] [place] Chloride [Moles/Vol] 107 mmol/L Normal 98-107 [facility] Comment on above: Order Comment: Speci men Type: BLOOD SPECIMENOrdering Facility: [facility] Address: [address] [place] [address] Performed By: #### 2 4321-2 ####[facility]ORATORYCLIA [id number] [place] [address] [place] CO2 [Moles/Vol] 18 mmol/L Low 22-30 [facility] Comment on above: Order Comment: Speci men Type: BLOOD SPECIMENOrdering Facility: [facility] Address: [address] [place] [address] Performed By: #### 2 4321-2 ####[facility]ORATORYCLIA [id number] [place] [address] [place] Creatinine [Mass/Vol] 0.97 mg/dL Normal 0.73-1.22 [facility] Comment on above: Order Comment: Omarmarcial farmer Type: BLOOD SPECIMENOrdering Facility: [facility] Address: [address] [place] [address] Performed By: #### 2 4321-2 ####[facility]ORATORYCLIA [id number] [place] [address] [place] Creatinine and Glomerular filtration rate.predicted panel (S/P/Bld) 82 mL/min/1.73m??? Normal >=60 [facility] Comment on above: Order Comment: Radha marleny Type: BLOOD SPECIMENOrdering Facility: [facility] Address: [address] [place] [address] Result Comment: Criss mated Glomerular Filtration Rate (eGFR) is calculated using the 2020 CKD-EPI creatinine equation. This equation utilizes serum creatinine, sex, and age as parameters. The creatinine assay has traceable calibration to isotope dilution-mass spectrometry. Refer to KDIGO guidelines for clinical interpretation. In patients with unstable renal function, e.g. those with acute kidney injury, the eGFR may not accurately reflect actual GFR. Performed By: #### 2 4321-2 ####[facility]ORATORYCLIA [id number] [place] [address] [place] Glucose [Mass/Vol] 101 mg/dL High 74-99 [facility] Comment on above: Order Comment: Radha farmer Type: BLOOD SPECIMENOrdering Facility: [facility] Address: [address] [place] [address] Result Comment: The [place] Diabetes [employer] (ADA) provides guidance for cutoff values for fasting glucose and random glucose. The ADA defines fasting as no caloric intake for at least 8 hours. Fasting plasma glucose results between 100 to 125 mg/dL indicate increased risk for diabetes (prediabetes). Fasting plasma glucose results greater than or equal to 126 mg/dL meet the criteria for diagnosis of diabetes. In the absence of unequivocal hyperglycemia, results should be confirmed by repeat testing. In a patient with classic symptoms of hyperglycemia or hyperglycemic crisis, random plasma glucose results greater than or equal to 200 mg/dL meet the criteria for diagnosis of diabetes. Reference: Standards of Medical Care in Diabetes 2016, [place] [employer]. Diabetes Care. 2016.39(Suppl 1). Performed By: #### 2 4321-2 ####[facility]ORATORYCLIA [id number] [place] [address] [place] Potassium [Moles/Vol] 5.1 mmol/L Normal 3.7-5.1 [facility] Comment on above: Order Comment: Speci men Type: BLOOD SPECIMENOrdering Facility: [facility] Address: [address] [place] [address] Performed By: #### 2 4321-2 ####[facility]ORATORYCLIA [id number] [place] [address] [place] Sodium [Moles/Vol] 134 mmol/L Low 136-144 [facility] Comment on above: Order Comment: Speci men Type: BLOOD SPECIMENOrdering Facility: [facility] Address: [address] [place] [address] Performed By: #### 2 4321-2 ####[facility] LABORATORYCLIA [id number] [address] STATES OF [facility] Urea nitrogen [Mass/Vol] 20 mg/dL Normal 9-24 [facility] Comment on above: Order Comment: Speci men Type: BLOOD SPECIMENOrdering Facility: [facility] Address: [address] [place] [address] Performed By: #### 2 4321-2 ####[facility]ORATORYCLIA [id number] [address] [place] CBC panel Auto (Bld)on 06-04 Erythrocyte distribution width (RBC) [Ratio] 15.0 % Normal 11.5-15.0 [facility] Comment on above: Order Comment: Speci men Type: BLOOD SPECIMENOrdering Facility: [facility] Address: [address] [place] [address] Performed By: #### 5 8410-2 ####[facility] LABORATORYCLIA [id number] [address] [place] Hematocrit (Bld) [Volume fraction] 35.2 % Low 39.0-51.0 [facility] Comment on above: Order Comment: Speci men Type: BLOOD SPECIMENOrdering Facility: [facility] Address: [address] [place] [address] Performed By: #### 5 8410-2 ####[facility] LABORATORYCLIA [id number] [address] Hemoglobin (Bld) [Mass/Vol] 10.4 g/dL Low 13.0-17.0 [facility] Comment on above: Order Comment: Speci men Type: BLOOD SPECIMENOrdering Facility: [facility] Address: [address] [place] [address] Performed By: #### 5 8410-2 ####[facility]ORATORYCLIA [id number] [address] MCH (RBC) [Entitic mass] 32.8 pg Normal 26.0-34.0 [facility] Comment on above: Order Comment: Speci men Type: BLOOD SPECIMENOrdering Facility: [facility] Address: [address] [place] [address] Performed By: #### 5 8410-2 ####[facility]ORATORYCLIA [id number] [address] MCHC (RBC) [Mass/Vol] 29.5 g/dL Low 30.5-36.0 [facility] Comment on above: Order Comment: Speci men Type: BLOOD SPECIMENOrdering Facility: [facility] Address: [address] [place] [address] Performed By: #### 5 8410-2 ####[facility]ORATORYCLIA [id number] [address] STATES [facility] MCV (RBC) [Entitic vol] 111.0 fL High 80.0-100.0 [facility] Comment on above: Order Comment: Speci men Type: BLOOD SPECIMENOrdering Facility: [facility] Address: [address] [place] [address] Performed By: #### 5 8410-2 ####[facility]ORATORYCLIA [id number] [place] [address] [place] Nucleated RBC (Bld) [#/Vol] 10*3/uL Normal <0.01 [facility] Comment on above: Order Comment: Speci men Type: BLOOD SPECIMENOrdering Facility: [facility] Address: [address] [place] [address] Performed By: #### 5 8410-2 ####[facility]ORATORYCLIA [id number] [place] [address] [place] Platelet mean volume (Bld) [Entitic vol] 10.0 fL Normal 9.0-12.7 [facility] Comment on above: Order Comment: Speci men Type: BLOOD SPECIMENOrdering Facility: [facility] Address: [address] [place] [address] Performed By: #### 5 8410-2 ####[facility]ATORYCLIA [id number] [place] [address] [place] Platelets (Bld) [#/Vol] 182 10*3/uL Normal 150-400 [facility] Comment on above: Order Comment: Speci men Type: BLOOD SPECIMENOrdering Facility: [facility] Address: [address] [place] [address] Performed By: #### 5 8410-2 ####[facility]ORATORYCLIA [id number] [place] [address] [place] RBC (Bld) [#/Vol] 3.17 10*6/uL Low 4.20-6.00 [facility] Comment on above: Order Comment: Speci men Type: BLOOD SPECIMENOrdering Facility: [facility] Address: [address] [place] [address] Performed By: #### 5 8410-2 ####[facility]ATORYCLIA [id number] [address] [place] WBC (Bld) [#/Vol] 8.22 10*3/uL Normal 3.70-11.00 [facility] Comment on above: Order Comment: Speci men Type: BLOOD SPECIMENOrdering Facility: [facility] Address: [address] [place] [address] Performed By: #### 5 8410-2 ####[facility] [id number] [place] [address] [facility] CNDSon 06-04-2024 [facility] HNO ID: [id number] Author: DAVID VALDES JR, MD Service: Urology Author Type: Resident Type: Discharge Summary Filed: 06/04/2024 11:12 Note Text: -------- Attestation signed by David Valdes Jr., MD at 06/04/2024 11:12 AM Discussed with the resident and agree with resident's findings and plan as documented in the resident's note. David Valdes Jr, MD -------- DISCHARGE NOTE (Patient Admitted Less than 48 Hours) SERVICE DATE: 06/04/2024 SERVICE TIME: 11:00 AM ADMISSION DATE: 06/03/2024 DISCHARGE DISPOSITION: Home with Self Care Mr. Mccabe was admitted to the hospital following uncomplicated transurethral resection of the prostate on 06/03/24. On POD1, he underwent successful voiding trial. He was tolerating diet, ambulating, breathing on room air, and pain was controlled. He was discharged in stable condition. DIET: Regular ACTIVITY AFTER DISCHARGE: Resume pre-hospital activity FOLLOW UP CARE REQUIRED: Follow up with Dr. Valdes DISCHARGE MEDICATIONS: Medication List CONTINUE taking these medications albuterol HFA 90 mcg/actuation inhaler Commonly known as: PROAIR HFA Inhale 2 Puffs as instructed every 4 hours as needed for Wheezing/Shortness of Breath. atenolol 50 mg tablet Commonly known as: TENORMIN budesonide, enteric coated 3 mg 24 hr capsule Commonly known as: ENTOCORT EC carboxymethylcellulose 0.5 % Drop Commonly known as: REFRESH COLACE 100 mg capsule Generic drug: docusate sodium EFFEXOR XR 150 mg 24 hr capsule Generic drug: venlafaxine ER FLEXERIL 10 mg tablet Generic drug: cyclobenzaprine fluticasone 50 mcg/actuation nasal spray Commonly known as: FLONASE Ibuprofen 200 mg Cap ipratropium-albuterol 0.5 mg-3 mg(2.5 mg base)/3 mL Nebu Commonly known as: DUONEB MULTI VITAMIN ORAL MULTIVITAMIN ORAL NEURONTIN 600 mg tablet Generic drug: gabapentin OSTEO BI-FLEX ORAL OXYGEN (HOME THERAPY) pantoprazole DR 40 mg tablet Commonly known as: PROTONIX pravastatin 40 mg tablet Commonly known as: PRAVACHOL tamsulosin 0.4 mg Commonly known as: FLOMAX traZODone 100 mg tablet Commonly known as: DESYREL TRELEGY ELLIPTA 100-62.5-25 mcg inhalation powder Generic drug: scxdqgbdcwd-oizvemkab-dk lanter TYLENOL PM ORAL VICODIN ES ORAL Walker Misc zolpidem 10 mg Commonly known as: AMBIEN ASK your doctor about these medications predniSONE 10 mg tablet Commonly known as: DELTASONE Take 4 tablets daily for 2 days, 2 tablets daily for 2 days, 1 tablet daily for 2 days raNITIdine 150 mg tablet Commonly known as: ZANTAC FINAL DIAGNOSIS: BPH with urinary obstruction SIGNATURE: Joey Crowley MD PATIENT NAME: Eligio Putnam Issa DATE: June 04, 2024 TIME: 11:00 AM [facility] 06-04-2024 [place] Telephone ([place]) -------- ELIGIO MCCABE ([id number]) 1950 M Date Time Provider Department 06/04/24 DAVID VALDES JR During your visit today, we recorded the following information about you: David Valdes Jr., MD 06/04/2024 11:02 AM Signed [facility] 06/04/24 Fu with me 2-3 weeks [facility] 06/04/2024 1:26 PM Signed Spoke to patient's Patient schedule 2023 at 1:00 pm Patient's agrees and understands Thank you Debbie Allergies As of Date: 06/04/2024 Noted Allergy Reaction ASPIRIN COMPOUND 10/27/2013 8 - GI Upset Comments: History of gastric ulcer x2 with ASA use. Date Reviewed: 06/04/2024 Reviewed by: Ward Saul RN - Fully Assessed Reason for Visit: Appointment [[id number]] Prescriptions as of 06/04/2024 - acetaminophen/diphenhydr amine (TYLENOL PM ORAL) Take 2 tablets by mouth daily at bedtime. - budesonide, enteric coated (ENTOCORT EC) 3 mg 24 hr capsule Take 6 mg by mouth once daily. - OXYGEN, HOME THERAPY, 3 L/min by Nasal Cannula route as directed. Uses 3L via nasal cannula daily and at 4L via Nasal cannula at night - fluticasone (FLONASE) 50 mcg/actuation nasal spray Use 2 Sprays in each nostril once daily. - docusate sodium (COLACE) 100 mg capsule Take 100 mg by mouth once daily. - pantoprazole DR (PROTONIX) 40 mg tablet Take 40 mg by mouth two times a day. - pravastatin (PRAVACHOL) 40 mg tablet Take 40 mg by mouth daily at bedtime. - MULTIVITAMIN ORAL Take by mouth once daily. - carboxymethylcellulose (REFRESH) 0.5 % drop Use 1 Drop in both eyes every 4 hours as needed. 4-6 times daily as needed - ipratropium-albuterol (DUONEB) 0.5 mg-3 mg(2.5 mg base)/3 mL nebu Inhale 3 mL as instructed two times a day. - Walker misc Rollator walker with seat - tamsulosin (FLOMAX) 0.4 mg Take 0.4 mg by mouth once daily. - bzymwhsosnu-gdwdgcscy-ci lanter (TRELEGY ELLIPTA) 100-62.5-25 mcg inhalation powder Inhale 1 Puff as instructed once daily. - predniSONE (DELTASONE) 10 mg tablet Take 4 tablets daily for 2 days, 2 tablets daily for 2 days, 1 tablet daily for 2 days - albuterol HFA (PROAIR HFA) 90 mcg/actuation inhaler Inhale 2 Puffs as instructed every 4 hours as needed for Wheezing/Shortness of Breath. - gabapentin (NEURONTIN) 600 mg tablet Take 600 mg by mouth three times a day. - venlafaxine XR (EFFEXOR XR) 150 mg 24 hr capsule Take 150 mg by mouth once daily. - HYDROCODONE/ACETAMINOPHE N (VICODIN ES ORAL) Take 10-325 mg by mouth three times a day. 325 mg 4 x daily - atenolol 50 mg tablet Take 50 mg by mouth once daily. - cyclobenzaprine (FLEXERIL) 10 mg tablet Take 10 mg by mouth three times a day as needed. - traZODone 100 mg tablet Take 100 mg by mouth daily at bedtime. - zolpidem 10 mg tab Take by mouth at bedtime as needed. - Ibuprofen 200 mg cap Take by mouth. 4 tablets prn - MULTIVIT ANDMINERALS/FERROUS FUM (MULTI VITAMIN ORAL) Take 1 tablet by mouth once daily. - ranitidine 150 mg tablet Take 150 mg by mouth twice daily. - GLUCOSAMINE HCL/CHONDR RATLIFF A NA (OSTEO BI-FLEX ORAL) Take 2 tablets by mouth once daily. Facility-Administered Medications as of 06/04/2024 - atenolol 50 mg tab(s) (TENORMIN) - pravastatin 40 mg tab(s) (PRAVACHOL) - albuterol HFA 90 mcg/actuation 2 Puff (PROVENTIL HFA, VENTOLIN HFA) - ipratropium-albuterol 3 mL nebulizer solution (DUONEB) - pantoprazole DR 40 mg tab(s) (PROTONIX) - docusate sodium 100 mg cap(s) (COLACE) - budesonide, enteric coated 3 mg cap(s) (ENTOCORT EC) - traZODone 100 mg tab(s) (DESYREL) - tamsulosin 0.4 mg cap(s) (FLOMAX) - NaCl 0.9% iv infusion - oxyCODONE-acetaminophen 5-325 mg 1-2 tablet (PERCOCET) - morphine 1-2 mg injection - ondansetron (PF) 4 mg injection (ZOFRAN) - heparin 5,000 Units injection - NaCl 0.9% irrigation solution - acetaminophen 650 mg tab(s) (TYLENOL) - NaCl 0.9% irrigation solution - budesonide 0.25 mg/2 mL 0.25 mg (PULMICORT) - ipratropium-albuterol 3 mL nebulizer solution (DUONEB) Problem List As Of Date 06/04/2024 Noted Resolved Pre-op exam [Z01.818] 05/19/2024 Benign prostatic hyperplasia with urinary reten*05/19/2024 Anemia, unspecified [D64.9] 12/11/2023 Chronic obstructive pulmonary disease, unspecif*12/11/2023 Gastric ulcer, unspecified as acute or chronic,*12/11/2023 Hyperlipidemia, unspecified [E78.5] 12/11/2023 Hypertension [I10] 12/11/2023 Major depressive disorder, single episode, unsp*12/11/2023 BPH with urinary obstruction [N40.1, N13.8] 06/03/2024 Encounter Status:Closed by DAVID VALDES on 06/04/24 [facility] NURSING PROGon 06-04-2024 NURSING PROG HNO ID: [id number] Author: WARD SAUL, DEZ Service: Nursing Author Type: Registered Nurse Type: Nursing Progress Note Filed: 06/04/2024 10:54 Note Text: 06/04/2024 AVT started, urology notified Manually irrigated prior to removal, 2 tiny clots Irrigated to clear, pink Rocha removed @ 0850, approx 250cc NS instilled Voided: @ 1045 --> large amount,missed urinal/ hat - RN witnessed PVR: @ 1050--> 0cc Urology notified This note was completed by: Ward Saul RN [facility] ANES PRE-OPon 06-03-2024 ANES PRE-OP HNO ID: [id number] Author: JAYASHREE ASHRAF MD Service: Anesthesiology Author Type: Physician Type: Anesthesia Preprocedure Evaluation Filed: 06/03/2024 09:18 Note Text: ANESTHESIOLOGY DAY OF SURGERY NOTE : 1950 Procedure Information Date/Time: 06/03/24929 Procedure: CYSTOSCOPY, RESECTION PROSTATE TRANSURETHRAL (Prostate) Location: [place] [facility] / [place] [facility] Surgeons: David Valdes Jr., MD Estimated body mass index is 24.55 kg/m? as calculated from the following: Height as of 05/20/24: 182.9 cm (6'). Weight as of 05/20/24: 82.1 kg (181 lb). Most recent hematocrit and potassium results: Hematocrit 37.1 02/04/2023 Potassium 4.3 02/04/2023 Relevant Problems No relevant active problems Copd with sabrina e 02 Raynauds Htn I - PHYSICAL EVALUATION AIRWAY Patient intubated: No. Tracheostomy tube not present Mallampati: II. TM distance: >3 FB. Neck ROM: full ROM without neurological symptoms. Mouth opening: adequate. Short neck: no. Thick neck: no Manuel present: yes II - ANESTHESIA PLAN ASA Score: 3 Anesthetic Plan: general Airway type: LMA The patient is not a current smoker. NPO Status: adequate Beta Danitza Monitoring Plan Monitoring plan: standard ASA. Post Procedure Analgesic Plan Postoperative analgesic plan: multimodal analgesia. Informed Consent Anesthetic risks, benefits, alternatives, personnel and consent discussed: yes. Patient / Responsible Democrat agrees to proceed: yes Patient / Surrogate agrees to blood products: Yes Potential Anesthesia issues that may suggest increased risk of complications or contraindication to planned procedure: none. Vitals Value Taken Time BP 119/62 06/03/24 0824 Pulse 53 06/03/24 08 Resp 18 06/03/24823 Temp 36.6 ?C (97.9 ?F) 06/03/24 08 SpO2 100 % 06/03/24 08 Facility-Administered Medications as of 06/03/2024 Medication Dose Route Frequency levoFLOXacin iv piggyback 750 mg in D5W 150 mL (LEVAQUIN) 750 mg INTRAVENOUS ONCE Outpatient Medications as of 06/03/2024 Medication Sig acetaminophen/diphenhydr amine (TYLENOL PM ORAL) Take 2 tablets by mouth daily at bedtime. budesonide, enteric coated (ENTOCORT EC) 3 mg 24 hr capsule Take 6 mg by mouth once daily. OXYGEN, HOME THERAPY, 3 L/min by Nasal Cannula route as directed. Uses 3L via nasal cannula daily and at 4L via Nasal cannula at night fluticasone (FLONASE) 50 mcg/actuation nasal spray Use 2 Sprays in each nostril once daily. docusate sodium (COLACE) 100 mg capsule Take 100 mg by mouth once daily. pantoprazole DR (PROTONIX) 40 mg tablet Take 40 mg by mouth two times a day. pravastatin (PRAVACHOL) 40 mg tablet Take 40 mg by mouth daily at bedtime. MULTIVITAMIN ORAL Take by mouth once daily. carboxymethylcellulose (REFRESH) 0.5 % drop Use 1 Drop in both eyes every 4 hours as needed. 4-6 times daily as needed ipratropium-albuterol (DUONEB) 0.5 mg-3 mg(2.5 mg base)/3 mL nebu Inhale 3 mL as instructed two times a day. Walker misc Rollator walker with seat tamsulosin (FLOMAX) 0.4 mg Take 0.4 mg by mouth once daily. gqfhcsalxxu-scjtmekqh-zc lanter (TRELEGY ELLIPTA) 100-62.5-25 mcg inhalation powder Inhale 1 Puff as instructed once daily. albuterol HFA (PROAIR HFA) 90 mcg/actuation inhaler Inhale 2 Puffs as instructed every 4 hours as needed for Wheezing/Shortness of Breath. atenolol 50 mg tablet Take 50 mg by mouth once daily. traZODone 100 mg tablet Take 100 mg by mouth daily at bedtime. MULTIVIT ANDMINERALS/FERROUS FUM (MULTI VITAMIN ORAL) Take 1 tablet by mouth once daily. GLUCOSAMINE HCL/CHONDR RATLIFF A NA (OSTEO BI-FLEX ORAL) Take 2 tablets by mouth once daily. predniSONE (DELTASONE) 10 mg tablet Take 4 tablets daily for 2 days, 2 tablets daily for 2 days, 1 tablet daily for 2 days (Patient not taking: Reported on 02/25/2024) gabapentin (NEURONTIN) 600 mg tablet Take 600 mg by mouth three times a day. venlafaxine XR (EFFEXOR XR) 150 mg 24 hr capsule Take 150 mg by mouth once daily. HYDROCODONE/ACETAMINOPHE N (VICODIN ES ORAL) Take 10-325 mg by mouth three times a day. 325 mg 4 x daily (Patient not taking: Reported on 02/25/2024) cyclobenzaprine (FLEXERIL) 10 mg tablet Take 10 mg by mouth three times a day as needed. zolpidem 10 mg tab Take by mouth at bedtime as needed. Ibuprofen 200 mg cap Take by mouth. 4 tablets prn ranitidine 150 mg tablet Take 150 mg by mouth twice daily. (Patient not taking: Reported on 01/20/2024) I have interviewed and examined the patient. I have reviewed the medical record and/or the pre-anesthesia evaluation, pertinent labs, and test results. This contains updated information obtained within 48 hours of Surgery/Procedure. SIGNATURE: Jayashree Ashraf MD PATIENT NAME: Eligio Mccabe DATE: June 03, 2024 TIME: 9:16 AM CSN: [id number] [facility] SURGICAL PATHOLOGYon 024 CASE REPORT [facility] Comment on above: Order Comment: Speci men Type: TISSUE SPECIMENOrdering Facility: [facility] Address: [address] [place] [address] Result Comment: Surg ical Pathology Report Case: [id number] Authorizing Provider: David Valdes Jr., Collected: 06/03/2024 10:43 AM Ordering Location: [place] [facility] [place] Received: 06/03/2024 12:40 PM Pathologist: Stella Braun MD Specimen: Prostate, Chips Performed By: #### S ####[facility]ATORYCLIA [id number] [address] [place] CLINICAL HISTORY [facility] Comment on above: Order Comment: Speci men Type: TISSUE SPECIMENOrdering Facility: [facility] Address: [address] [place] [address] Result Comment: Pre- op diagnosis: Benign prostatic hyperplasia with urinary retention [N40.1, R33.8] Performed By: #### S ####[facility]ATORYCLIA [id number] [address] FINAL DIAGNOSIS [facility] Comment on above: Order Comment: Speci men Type: TISSUE SPECIMENOrdering Facility: [facility] Address: [address] [place] [address] Result Comment: Whitney cutler chips, TURP: -- Benign prostatic tissue with nodular glandular and stromal hyperplasia. -- Benign urothelial mucosa. Performed By: #### S ####[facility]ORYCLIA [id number] [address] FINAL PERFORMING LAB [facility] Comment on above: Order Comment: Speci men Type: TISSUE SPECIMENOrdering Facility: [facility] Address: [address] [place] [address] Result Comment: Diag nostic interpretation performed at [facility], [address] [place] [address] CLIA# [id number] Fermenting Cellar Dropper: Tal Bentley M.D. Performed By: #### S ####[facility]ORYCLIA [id number] [address] GROSS DESCRIPTION [facility] Comment on above: Order Comment: Speci men Type: TISSUE SPECIMENOrdering Facility: [facility] Address: [address] [place] [address] Result Comment: Whitney cutler, Chips Received in formalin labeled prostate chips are multiple james-pink rubbery segments of tissue aggregating to 9.5 x 7.6 x 2.4 cm and weighing in aggregate of 19 g. [facility] sections are submitted in formalin in 8 cassettes. Gross examination performed at [facility], [address] [place] [address] KVB June 03, 2024 2:04 PM Performed By: #### S ####[facility]ATORYCLIA [id number] [address] [place] 05-27-2024 CLIFF Telephone (NAVNEET) -------- ELIGIO MCCABE ([id number]) 1950 M Date Time Provider Department 05/27/24 DAVID VALDES JR During your visit today, we recorded the following information about you: David Valdes Jr., MD 05/27/2024 7:36 PM Signed Urine cx+ Abx sent Debbie Vargas MA 05/28/2024 8:12 AM Signed Left message to call office to advise patient of below. GETACHEW Sher Donna, MA 05/28/2024 9:55 AM Signed [place] notified of results. Debbie Vargas MA Allergies As of Date: 05/27/2024 Noted Allergy Reaction ASPIRIN COMPOUND 10/27/2013 8 - GI Upset Comments: History of gastric ulcer x2 with ASA use. Date Reviewed: 05/20/2024 Reviewed by: Michele Easley APRN.[employer] - Fully Assessed Reason for Visit: Results [95] Order(s):ciprofloxacin HCl (CIPRO) 500 mg tabletTake 1 tablet by mouth two times a day for 5 days.Disp: 10 tabletRfl: 0 Prescriptions as of 05/28/2024 - ciprofloxacin HCl (CIPRO) 500 mg tablet Take 1 tablet by mouth two times a day for 5 days. - acetaminophen/diphenhydr amine (TYLENOL PM ORAL) Take 2 tablets by mouth daily at bedtime. - budesonide, enteric coated (ENTOCORT EC) 3 mg 24 hr capsule Take 6 mg by mouth once daily. - OXYGEN, HOME THERAPY, 3 L/min by Nasal Cannula route as directed. Uses 3L via nasal cannula daily and at 4L via Nasal cannula at night - fluticasone (FLONASE) 50 mcg/actuation nasal spray Use 2 Sprays in each nostril once daily. - docusate sodium (COLACE) 100 mg capsule Take 100 mg by mouth once daily. - pantoprazole DR (PROTONIX) 40 mg tablet Take 40 mg by mouth two times a day. - pravastatin (PRAVACHOL) 40 mg tablet Take 40 mg by mouth daily at bedtime. - MULTIVITAMIN ORAL Take by mouth once daily. - carboxymethylcellulose (REFRESH) 0.5 % drop Use 1 Drop in both eyes every 4 hours as needed. 4-6 times daily as needed - ipratropium-albuterol (DUONEB) 0.5 mg-3 mg(2.5 mg base)/3 mL nebu Inhale 3 mL as instructed two times a day. - Walker mis Rollator walker with seat - tamsulosin (FLOMAX) 0.4 mg Take 0.4 mg by mouth once daily. - dymfediduea-sdasbncst-gi lanter (TRELEGY ELLIPTA) 100-62.5-25 mcg inhalation powder Inhale 1 Puff as instructed once daily. - predniSONE (DELTASONE) 10 mg tablet Take 4 tablets daily for 2 days, 2 tablets daily for 2 days, 1 tablet daily for 2 days - albuterol HFA (PROAIR HFA) 90 mcg/actuation inhaler Inhale 2 Puffs as instructed every 4 hours as needed for Wheezing/Shortness of Breath. - gabapentin (NEURONTIN) 600 mg tablet Take 600 mg by mouth three times a day. - venlafaxine XR (EFFEXOR XR) 150 mg 24 hr capsule Take 150 mg by mouth once daily. - HYDROCODONE/ACETAMINOPHE N (VICODIN ES ORAL) Take 10-325 mg by mouth three times a day. 325 mg 4 x daily - atenolol 50 mg tablet Take 50 mg by mouth once daily. - cyclobenzaprine (FLEXERIL) 10 mg tablet Take 10 mg by mouth three times a day as needed. - traZODone 100 mg tablet Take 100 mg by mouth daily at bedtime. - zolpidem 10 mg tab Take by mouth at bedtime as needed. - Ibuprofen 200 mg cap Take by mouth. 4 tablets prn - MULTIVIT ANDMINERALS/FERROUS FUM (MULTI VITAMIN ORAL) Take 1 tablet by mouth once daily. - ranitidine 150 mg tablet Take 150 mg by mouth twice daily. - GLUCOSAMINE HCL/CHONDR RATLIFF A NA (OSTEO BI-FLEX ORAL) Take 2 tablets by mouth once daily. Problem List As Of Date 05/27/2024 Noted Resolved Pre-op exam [Z01.818] 05/19/2024 Benign prostatic hyperplasia with urinary reten*05/19/2024 Anemia, unspecified [D64.9] 12/11/2023 Chronic obstructive pulmonary disease, unspecif*12/11/2023 Gastric ulcer, unspecified as acute or chronic,*12/11/2023 Hyperlipidemia, unspecified [E78.5] 12/11/2023 Hypertension [I10] 12/11/2023 Major depressive disorder, single episode, unsp*12/11/2023 Prescriptions ordered this encounter Disp Refills Start End CIPROFLOXACIN 500 MG TABLET 10 t* 0 05/27/2024 06/01/2024 Route: ORAL Sig: Take 1 tablet by mouth two times a day for 5 days. Encounter Status:Closed by DAVID VALDES on 05/27/24 [facility] [place] [facility] ELIGIO MCCABE ([id number]) 1950 M Date Time Provider Department 05/21/24 DAVID VALDES JR GENE AKURF During your visit today, we recorded the following information about you: Christy Bernal MA 05/21/2024 1:16 PM Signed Merna with [employer] advised -speciated UCX. Christy Bernal MA Allergies As of Date: 05/21/2024 Noted Allergy Reaction ASPIRIN COMPOUND 10/27/2013 8 - GI Upset Comments: History of gastric ulcer x2 with ASA use. Date Reviewed: 05/20/2024 Reviewed by: Michele Easley APRN.[facility] - Fully Assessed Reason for Visit: Results [95] Prescriptions as of 05/21/2024 - acetaminophen/diphenhydr amine (TYLENOL PM ORAL) Take 2 tablets by mouth daily at bedtime. - budesonide, enteric coated (ENTOCORT EC) 3 mg 24 hr capsule Take 6 mg by mouth once daily. - OXYGEN, HOME THERAPY, 3 L/min by Nasal Cannula route as directed. Uses 3L via nasal cannula daily and at 4L via Nasal cannula at night - fluticasone (FLONASE) 50 mcg/actuation nasal spray Use 2 Sprays in each nostril once daily. - docusate sodium (COLACE) 100 mg capsule Take 100 mg by mouth once daily. - pantoprazole DR (PROTONIX) 40 mg tablet Take 40 mg by mouth two times a day. - pravastatin (PRAVACHOL) 40 mg tablet Take 40 mg by mouth daily at bedtime. - MULTIVITAMIN ORAL Take by mouth once daily. - carboxymethylcellulose (REFRESH) 0.5 % drop Use 1 Drop in both eyes every 4 hours as needed. 4-6 times daily as needed - ipratropium-albuterol (DUONEB) 0.5 mg-3 mg(2.5 mg base)/3 mL nebu Inhale 3 mL as instructed two times a day. - Walker mis Rollator walker with seat - tamsulosin (FLOMAX) 0.4 mg Take 0.4 mg by mouth once daily. - srpcnxjebdj-tfyqnzdqh-vg lanter (TRELEGY ELLIPTA) 100-62.5-25 mcg inhalation powder Inhale 1 Puff as instructed once daily. - predniSONE (DELTASONE) 10 mg tablet Take 4 tablets daily for 2 days, 2 tablets daily for 2 days, 1 tablet daily for 2 days - albuterol HFA (PROAIR HFA) 90 mcg/actuation inhaler Inhale 2 Puffs as instructed every 4 hours as needed for Wheezing/Shortness of Breath. - gabapentin (NEURONTIN) 600 mg tablet Take 600 mg by mouth three times a day. - venlafaxine XR (EFFEXOR XR) 150 mg 24 hr capsule Take 150 mg by mouth once daily. - HYDROCODONE/ACETAMINOPHE N (VICODIN ES ORAL) Take 10-325 mg by mouth three times a day. 325 mg 4 x daily - atenolol 50 mg tablet Take 50 mg by mouth once daily. - cyclobenzaprine (FLEXERIL) 10 mg tablet Take 10 mg by mouth three times a day as needed. - traZODone 100 mg tablet Take 100 mg by mouth daily at bedtime. - zolpidem 10 mg tab Take by mouth at bedtime as needed. - Ibuprofen 200 mg cap Take by mouth. 4 tablets prn - MULTIVIT ANDMINERALS/FERROUS FUM (MULTI VITAMIN ORAL) Take 1 tablet by mouth once daily. - ranitidine 150 mg tablet Take 150 mg by mouth twice daily. - GLUCOSAMINE HCL/CHONDR RATLIFF A NA (OSTEO BI-FLEX ORAL) Take 2 tablets by mouth once daily. Problem List As Of Date 05/21/2024 Noted Resolved Pre-op exam [Z01.818] 05/19/2024 Benign prostatic hyperplasia with urinary reten*05/19/2024 Anemia, unspecified [D64.9] 12/11/2023 Chronic obstructive pulmonary disease, unspecif*12/11/2023 Gastric ulcer, unspecified as acute or chronic,*12/11/2023 Hyperlipidemia, unspecified [E78.5] 12/11/2023 Hypertension [I10] 12/11/2023 Major depressive disorder, single episode, unsp*12/11/2023 Encounter Status:Closed by CHRISTY BERNAL on 05/21/24 [facility] Bacteria Ur Culton Bacteria identified Cx Nom (U) ORGANISM ID: 1 >=100,000 CFU/ml Morganella morganii ORGANISM ID: 2 >=100,000 CFU/ml Pseudomonas aeruginosa Two morphologically different colony types ORGANISM ID: 4 50,000-<100,000 CFU/ml Normal urogenital sayda [facility] Comment on above: Performed By: #### 6 30-4 ####[facility]ORATORYCLIA [id number] [place] [address] [place] HISTORY PHYSICALon HISTORY PHYSICAL HNO ID: [id number] Author: MICHELE EASLEY APRN.[employer] Service: ? Author Type: Nurse Practitioner Type: H&P Filed: 05/27/2024 12:11 Note Text: [facility] HISTORY AND PHYSICAL EXAMINATION SERVICE DATE: 05/20/2024 SERVICE TIME: 1:49 PM PRIMARY CARE PHYSICIAN: No primary care provider on file. Assessment Patient has the following medical conditions which may affect lexus-operative course: Pre-op exam See note for medical conditions which may affect lexus-operative course that were addressed at today's visit. Benign prostatic hyperplasia with urinary retention Surgery scheduled 06/03/[address] Valdes Chronic obstructive pulmonary disease, unspecified (HCC) On 3L NC Albuterol inhaler- instructed to continue if needed and bring on day of surgery Budesonide enteric- instructed to continue as prescribed Duoneb- instructed to continue if needed Trelegy- instructed to continue as prescribed Uses albuterol inhaler weekly No ED visits or hospitalizations for resp problems within the last 6 months Hypertension Controlled Atenolol- instructed to continue morning of surgery Hyperlipidemia, unspecified Controlled Pravastatin- instructed to continue as prescribed Gastric ulcer, unspecified as acute or chronic, without hemorrhage or perforation Protonix BID- instructed to continue as prescribed No abdominal pain, n/v, or hematemesis Lund Activity Status Index: METS: Walk a block or two on level ground (2.75 METs) DASI Score: 2.75 Patient denies any chest pain or undue shortness of breath with the above physical activity. ARISCAT Score: Age: 51-80 Preoperative SpO2: >=96% Respiratory infection in the last month: No Preoperative anemia: No Surgical incision: peripheral Duration of surgery: <2 hrs Emergency procedure: No ARISCAT Score: 3 ANESTHESIA FINDINGS: Intubation History: No prior intubation Significant Anesthesia Considerations: none Airway History: No prior intubation I - PHYSICAL EVALUATION AIRWAY Patient intubated: No. DENTAL Dentures, upper: complete. Dentures, lower: partial. II - ANESTHESIA PLAN Anesthetic Plan: general Beta Danitza Monitoring Plan Post Procedure Analgesic Plan Prepared for Surgery: CONSULTS: Patient does not require consults for optimization at this time Planned Anesthetic: general REASON FOR VISIT: Eligio Mccabe is a 73 year old male who is scheduled for Procedure(s): CYSTOSCOPY, RESECTION PROSTATE TRANSURETHRAL (N/A) at the request of Dr. Valdes, David Whiteheda Jr., MD for routine HANDP. My final recommendation will be communicated back to the requesting physician by way of shared medical record or letter. Subjective The patient has the following: ACTIVE PROBLEM LIST Pre-Op Exam Benign Prostatic Hyperplasia With Urinary Retention Anemia, Unspecified Chronic Obstructive Pulmonary Disease, Unspecified (Hcc) Gastric Ulcer, Unspecified As Acute Or Chronic, Without Hemorrhage Or Perforation Hyperlipidemia, Unspecified Hypertension Major Depressive Disorder, Single Episode, Unspecified COVID-19 Immunization Status Overdue - Covid-19 Vaccine (2022- season) Overdue since 06/14/2023 08/15/2022 Imm Admin: COVID-19 vaccine, age 12+ yr, bivalent ([employer]) 09/14/2021 Imm Admin: COVID-19 original vaccine, age 12+ yr, monovalent ([facility] [employer]) 01/13/2021 Imm Admin: COVID-19 original vaccine, age 12+ yr, monovalent ([employer]) Only the first 3 history entries have been loaded, but more history exists. CHIEF COMPLAINT: The reason for this visit is to perform a comprehensive review of the patient's past medical history, assess their current health status and obtain any additional testing required based on anesthesia guidelines. We will also identify any potential anesthesia problems or contraindications to the planned procedure. HPI: Patient is a 73 year old male who presents for pre surgical testing. He has been having urinary retention issues since 11/2023, presents with rocha catheter. Denies any pain around Rocha site, no hematuria noted. After discussion with the surgeon the patient agrees to surgical intervention. REVIEW OF SYSTEMS: General: Negative for: unintentional weight change, weight loss >10% of BW in last 6 months, malaise and fever. Neurological: Negative for: headaches, seizures, TIA and strokes. Respiratory: 3L NC Positive for: COPD. Negative for: asthma, pneumonia within 6 weeks, URI < 2 weeks and obstructive sleep apnea. Cardiovascular: Positive for: hyperlipidemia and hypertension Negative for: atrial fibrillation, CAD, chest pain, CHF and DVT/PE. GI: Negative for: abdominal pain, GERD, nausea and vomiting. : Negative for: dysuria, hematuria and renal failure. Endocrine: Negative for: diabetes mellitus, hypothyroidism and hyperparathyroidism. (more content not included)... [facility] CNNURSEon 04-28-2024 CNNURSE Nurse Visit (UROLWS) -------- ELIGIO MCCABE ([id number]) 1950 M Date Time Provider Department 04/28/24 2:40 PM [facility] During your visit today, we recorded the following information about you: Cheri Haile LPN 04/28/2024 3:01 PM Signed CC Rocha catheter in Place HPI: Eligio Mccabe is a 73 year old male. The patient is here now for a rocha catheter change with diagnosis of BPH with obstruction/lower urinary tract symptoms. Procedure: Performed a catheter change. Removed fluid from balloon in the rocha. The indwelling rocha catheter size 16 Fr Coude was removed with catheter tip intact without difficulty. Inserted 18 Fr coude catheter using aseptic technique. Immediate return of dark yellow urine with sediment throughout. Irrigated with 60 mL 0.9% sodium chloride without difficulties. 60 mLs clear yellow urine return noted. Bulb inflated with 10 mLs prefilled syringe- sterile water. Catheter secured to left inner thigh. Patient using drainage bag and has it higher than recommended but is not open to education of increased urinary tract infections when drainage bag higher than bladder. His states they will lower drainage bag once home. The patient tolerated the procedure well. Reviewed catheter care and verbalizes understanding. Assessment/Plan: Successful catheter change. Return for catheter changes as planned. Cheri Haile LPN Allergies As of Date: 04/28/2024 Noted Allergy Reaction ASPIRIN COMPOUND 10/27/2013 8 - GI Upset Comments: History of gastric ulcer x2 with ASA use. Date Reviewed: 03/30/2024 Reviewed by: David Valdes Jr., MD - Fully Assessed Reason for Visit: Nurse Visit [792] Rocha Catheter Change [825] Primary Visit Diagnosis:BPH with obstruction/lower urinary tract symptoms [N40.1, N13.8] Prescriptions as of 04/28/2024 - OXYGEN, HOME THERAPY, 3 L/min by Nasal Cannula route as directed. Uses 3L via nasal cannula daily and at 4L via Nasal cannula at night - fluticasone (FLONASE) 50 mcg/actuation nasal spray Use 2 Sprays in each nostril once daily. - docusate sodium (COLACE) 100 mg capsule Take 100 mg by mouth once daily. - pantoprazole DR (PROTONIX) 40 mg tablet Take 40 mg by mouth two times a day. - pravastatin (PRAVACHOL) 40 mg tablet Take 40 mg by mouth daily at bedtime. - MULTIVITAMIN ORAL Take by mouth once daily. - carboxymethylcellulose (REFRESH) 0.5 % drop Use 1 Drop in both eyes every 4 hours as needed. 4-6 times daily as needed - ipratropium-albuterol (DUONEB) 0.5 mg-3 mg(2.5 mg base)/3 mL nebu Inhale 3 mL as instructed two times a day. - Walker mis Rollator walker with seat - tamsulosin (FLOMAX) 0.4 mg Take 0.4 mg by mouth once daily. - hgqhcmghunl-swbsgbvyr-oh lanter (TRELEGY ELLIPTA) 100-62.5-25 mcg inhalation powder Inhale 1 Puff as instructed once daily. - predniSONE (DELTASONE) 10 mg tablet Take 4 tablets daily for 2 days, 2 tablets daily for 2 days, 1 tablet daily for 2 days - albuterol HFA (PROAIR HFA) 90 mcg/actuation inhaler Inhale 2 Puffs as instructed every 4 hours as needed for Wheezing/Shortness of Breath. - gabapentin (NEURONTIN) 600 mg tablet Take 600 mg by mouth three times a day. - venlafaxine XR (EFFEXOR XR) 150 mg 24 hr capsule Take 150 mg by mouth once daily. - HYDROCODONE/ACETAMINOPHE N (VICODIN ES ORAL) Take 10-325 mg by mouth three times a day. 325 mg 4 x daily - atenolol 50 mg tablet Take 50 mg by mouth once daily. - cyclobenzaprine (FLEXERIL) 10 mg tablet Take 10 mg by mouth three times a day as needed. - traZODone 100 mg tablet Take 100 mg by mouth daily at bedtime. - zolpidem 10 mg tab Take by mouth at bedtime as needed. - diphenhydrAMINE-Acetamin ophen (PM PAIN RELIEF) 25-500 mg tab Take by mouth. 5 at bedtime - Ibuprofen 200 mg cap Take by mouth. 4 tablets prn - MULTIVIT ANDMINERALS/FERROUS FUM (MULTI VITAMIN ORAL) Take by mouth. - ranitidine 150 mg tablet Take 150 mg by mouth twice daily. - GLUCOSAMINE HCL/CHONDR RATLIFF A NA (OSTEO BI-FLEX ORAL) Take 2 tablets by mouth once daily. Problem List As Of Date: 04/28/2024 (None) Encounter Status:Closed by CHERI HAILE on 04/28/24 [facility] CNOVon 03-30-2024 CNOV Office Visit (UROLAG ) -------- ELIGIO MCCABE ([id number]) 1950 M Date Time Provider Department 03/30/24 10:30 AM DAVID VALDES JR UROCLARK During your visit today, we recorded the following information about you: Pulse Blood pressure 60/minute 110/62 Luis Ramirez MA 03/30/2024 10:26 AM Signed 18f coude silicone cath removed for procedure, Clinic did not have 18f Coude Silicone caths in stock, per Dr. Valdes 16 f coude Silicone cath was placed after the procedure. GETACHEW Banks Michael Gene Jr., MD 03/31/2024 9:29 AM Signed CYSTOSCOPY PROCEDURE NOTE: Eligio Mccabe is a 73 year old male who presents with urinary retention and BPH for cystoscopy. Pt ID verified with patient: Yes Fire risk assessment done Procedure verified with patient: Yes Procedure confirmed with physician and residential direct support professional: Yes UNIVERSAL PROTOCOL / SAFETY CHECKLIST Procedure to be Performed: cysto Sign In: A Moment of CARE was completed. Personnel directly involved with the procedure wore the appropriate PPE (Personal Protective Equipment). Patient/Surrogate Stated/Verified: PATIENT VERIFIED(optional for EMERGENT procedures): Patient name, Date of , Relevant allergies, and The intended procedure Time Out Communication: Intended patient and procedure match the source documents. Consent documented and matches the intended procedure. Sign Out: SIGN OUT (optional for EMERGENT procedures): No specimen collected. David Valdes Jr, MD Pre procedure dx: bph, urinary retention Post procedure dx: same A urinalysis was performed revealing no evidence of infection. The benefits, risks, alternatives of the cystoscopy procedure and personnel were discussed with the patient. The verbal consent was obtained and the patient agrees to proceed. Procedure: The patient was placed on the procedure table in the supine position and prepped and draped in the usual sterile fashion. 2% Lidocaine Jelly was placed per urethra as an anesthetic in the standard fashion. Once adequate local anesthesia was achieved, the tip of the flexible cystoscope was carefully placed into the urethra under direct visual guidance. The scope was negotiated through the pendulous urethra to the level of the bulbar urethra with no evidence of stricture. 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 The bladder was entered and careful powers endoscopy was carried out. The posterior, superior and lateral rbown and dome of the bladder were all well visualized and the scope was retroflexed upon itself. The findings were consistent with no evidence of bladder mucosal pathology. At the conclusion of the procedure, the flexible cystoscope was removed atraumatically. The patient tolerated the procedure without complications. Patient was given standard post-procedure instructions, and was directed to complete the course of oral antibiotics and increase oral fluid intake as directed. ASSESSMENT/PLAN: Cysto - obstructing trilobar hypertrophy UDS - atonic Motivated to get catheter out Understands that turp may not work but is only thing we can try at this point cysto, transurethral resection of the prostate All r/b/a of surgery discussed, infection, bleeding, damage to nearby structures, repeat surgery, nodular regrowth, bladder neck contracture, incontinence, impotence, lower urinary tract symptoms, repeat catheterizations. , heart attack, stroke, deep vein thrombosis, pulmonary embolus. Patient verbalized understanding and agrees to proceed. David Valdes Jr, MD Allergies As of Date: 03/30/2024 Noted Allergy Reaction ASPIRIN COMPOUND 10/27/2013 8 - GI Upset Comments: History of gastric ulcer x2 with ASA use. Date Reviewed: 03/30/2024 Reviewed by: David Valdes Jr., MD - Fully Assessed Reason for Visit: Cystoscopy-1 [303] Trus Procedure [381] Primary Visit Diagnosis:Urine retention [R33.9] Other Visit Diagnosis:BPH with obstruction/lower urinary tract symptoms [N40.1, N13.8] Order(s):US TRANSRECTAL PROSTATE (TRUS) (POC) GUKI USE ONLY [[id number]] Order #: [id number]: 1 [] ciprofloxacin HCl 500 mg tab(s) (CIPRO)Disp: Rfl: [] lidocaine urojet 2 % 6 mL topical gel (GLYDO)Disp: Rfl: Prescriptions as of 03/31/2024 - OXYGEN, HOME THERAPY, 3 L/min by Nasal Cannula route as directed. Uses 3L via nasal cannula daily and at 4L via Nasal cannula at night - fluticasone (FLONASE) 50 mcg/actuation nasal spray Use 2 Sprays in each nostril once daily. - docusate sodium (COLACE) 100 mg capsule Take 100 mg by mouth once daily. - pantoprazole DR (PROTONIX) 40 mg tablet Take 40 mg by mouth two times a day. - pravastatin (PRAVACHOL) 40 mg tablet Take 40 mg by mouth daily at bedtime. - MULTIVITAMIN ORAL T (more content not included)... [facility] CNOVon 02-28-2024 CNOV Office Visit (UROLAE ) -------- ELIGIO MCCABE ([id number]) 1950 M Date Time Provider Department 02/28/24 1:00 PM PROC URODYNAMICS UROLAE During your visit today, we recorded the following information about you: Charmaine Sands RN 02/28/2024 12:53 PM Signed POST PROCEDURE INSTRUCTIONS Eligio Mccabe February 28, 2024 Increase your fluid intake. FOLLOW UP APPOINTMENT: 03.30.24 at 10:30 am with Suraj Valdes MD in the [address], [address], [place] [address] office. WHEN TO CALL THE DOCTOR: If you develop fever (over 101 degrees) or chills. If you cannot urinate or empty your bladder. If you develop symptoms of a urinary tract infection such as burning or pain with urination, increased frequency of urination or foul smelling urine If you have any other questions or problems. Office phone number; [phone] Charmaine Sands RN 02/28/2024 2:22 PM Addendum Eligio Mccabe [id number] 1950 February 28, 2024 Diagnoses: Urinary Retention UA done: No Procedure Performed: Multichannel urodynamic testing including multichannel cystometrogram, pressure voiding study, and EMG. Was a uroflow done at some point during the study: No Was a cystometrogram performed: Yes Was a UPP done: No Was an EMG done: Yes Was an intraabdominal pressure recorded: Yes Where were pressure catheters placed: Bladder and rectum Procedure: The patient verified medications and allergies. The procedure was explained to the patient. Immediately prior to the test the patient was given Keflex 500 mg #1 by mouth and Lidocaine 2% jelly 11 ml to urethra per order. UNIVERSAL PROTOCOL / SAFETY CHECKLIST A moment to CARE: Completed Procedure to be performed: Urodynamics Sign in Communication: Completed Time Out: Team Confirms the Correct Patient, Correct Procedure, Correct Site and Site Marking, Correct Position (if applicable), Prep and Dry Time (if applicable). Time: 1300 Affirmation of Time Out: N/A Sign Out Discussion: Completed Urodynamic Findings: Uroflow : Patient arrived with a rocha catheter- Yes, Specify 18 F Coude Silicone. Patient voided N/A ml; Curve: N/A Post void residual N/A ml QMAX N/A ; QAVG N/A . Cystometrogram: The patient had a cystometrogram EMG: Yes First Sensation 190 ml First desire 239 ml Strong Desire 285 ml Capacity 317 ml The patient did not leak with cough. no destrusor contractions Instability associated with urge: No Instability associated with leakage: No Pressure-Flow Voiding Study: EMG: Yes Void 0 ml; Curve: N/A Post void residual: 375 ml Maximum detrusor pressure N/A Cm H20 Maximum flow rate: N/A ml/sec Average flow rate: N/A ml/sec UDS notes: N/A Plan: Patient will follow up with provider to discuss plan of care and results. Patient tolerated the procedure well. Home going instructions given. Patient able to repeat back understanding of instructions. Charmaine Sands RN cc: Suraj Valdes MD Urodynamic Results Uroflow - not interpreted PVR Flow CMG First sensation 190 Max volume 317 Uninhibited bladder contractions no Leakage no EMG nl Nl compliance UPP - not interpreted Leakage MUCP Pressure Flow PVR 375 Flow 0 EMG nl No detrusor pressure Summary Atonic bladder David Valdes Jr, MD Referring Provider: NATALIA KING [[id number]] Allergies As of Date: 02/28/2024 Noted Allergy Reaction ASPIRIN COMPOUND 10/27/2013 8 - GI Upset Comments: History of gastric ulcer x2 with ASA use. Date Reviewed: 02/28/2024 Reviewed by: Charmaine Sands RN - Fully Assessed Reason for Visit: Urinary Retention [228] Cmt: UDS Primary Visit Diagnosis:Urine retention [R33.9] Prescriptions as of 03/07/2024 - OXYGEN, HOME THERAPY, 3 L/min by Nasal Cannula route as directed. Uses 3L via nasal cannula daily and at 4L via Nasal cannula at night - fluticasone (FLONASE) 50 mcg/actuation nasal spray Use 2 Sprays in each nostril once daily. - docusate sodium (COLACE) 100 mg capsule Take 100 mg by mouth once daily. - pantoprazole DR (PROTONIX) 40 mg tablet Take 40 mg by mouth two times a day. - pravastatin (PRAVACHOL) 40 mg tablet Take 40 mg by mouth daily at bedtime. - MULTIVITAMIN ORAL Take by mouth once daily. - carboxymethylcellulose (REFRESH) 0.5 % drop Use 1 Drop in both eyes every 4 hours as needed. 4-6 times daily as needed - ipratropium-albuterol (DUONEB) 0.5 mg-3 mg(2.5 mg base)/3 mL nebu Inhale 3 mL as instructed two times a day. - Walker [facility] Rollator walker with seat - tamsulosin (FLOMAX) 0.4 mg Take 0.4 mg by mouth once daily. - ocyibafjots-zvbvebxbv-gi lanter (TRELEGY ELLIPTA) 100-62.5-25 mcg inhalation powder Inhale 1 Puff as instructed once daily. - predniSONE (DELTASONE) 10 mg tablet Take 4 tablets daily for 2 days, 2 tablets daily for 2 days, 1 tablet daily for 2 days - albuterol HFA (PROAIR HFA) 90 mc (more content not included)... [facility] Lucian 02-26-2024 CLIFF Telephone ([facility]) -------- ISSAELIGIO Jersey ([id number]) 1950 M Date Time Provider Department 02/26/24 DAVID VALDES JR During your visit today, we recorded the following information about you: Michelle Mena 02/26/2024 11:30 AM Signed Pt confirmed UDS @ [facility] 02/28/24 @ 1:00. Cysto/Trus in [place] with Dr. Valdes 03/30/24. Ref by Eunice King. Evonne Allergies As of Date: 02/26/2024 Noted Allergy Reaction ASPIRIN COMPOUND 10/27/2013 8 - GI Upset Comments: History of gastric ulcer x2 with ASA use. Date Reviewed: 02/25/2024 Reviewed by: Court Paul MA - Fully Assessed Reason for Visit: Appointment [186] Prescriptions as of 02/26/2024 - OXYGEN, HOME THERAPY, 3 L/min by Nasal Cannula route as directed. Uses 3L via nasal cannula daily and at 4L via Nasal cannula at night - fluticasone (FLONASE) 50 mcg/actuation nasal spray Use 2 Sprays in each nostril once daily. - docusate sodium (COLACE) 100 mg capsule Take 100 mg by mouth once daily. - pantoprazole DR (PROTONIX) 40 mg tablet Take 40 mg by mouth two times a day. - pravastatin (PRAVACHOL) 40 mg tablet Take 40 mg by mouth daily at bedtime. - MULTIVITAMIN ORAL Take by mouth once daily. - carboxymethylcellulose (REFRESH) 0.5 % drop Use 1 Drop in both eyes every 4 hours as needed. 4-6 times daily as needed - ipratropium-albuterol (DUONEB) 0.5 mg-3 mg(2.5 mg base)/3 mL nebu Inhale 3 mL as instructed two times a day. - Walker misc Rollator walker with seat - tamsulosin (FLOMAX) 0.4 mg Take 0.4 mg by mouth once daily. - ylructktuku-urbwazqmd-yj lanter (TRELEGY ELLIPTA) 100-62.5-25 mcg inhalation powder Inhale 1 Puff as instructed once daily. - predniSONE (DELTASONE) 10 mg tablet Take 4 tablets daily for 2 days, 2 tablets daily for 2 days, 1 tablet daily for 2 days - albuterol HFA (PROAIR HFA) 90 mcg/actuation inhaler Inhale 2 Puffs as instructed every 4 hours as needed for Wheezing/Shortness of Breath. - gabapentin (NEURONTIN) 600 mg tablet Take 600 mg by mouth three times a day. - venlafaxine XR (EFFEXOR XR) 150 mg 24 hr capsule Take 150 mg by mouth once daily. - HYDROCODONE/ACETAMINOPHE N (VICODIN ES ORAL) Take 10-325 mg by mouth three times a day. 325 mg 4 x daily - atenolol 50 mg tablet Take 50 mg by mouth once daily. - cyclobenzaprine (FLEXERIL) 10 mg tablet Take 10 mg by mouth three times a day as needed. - traZODone 100 mg tablet Take 100 mg by mouth daily at bedtime. - zolpidem 10 mg tab Take by mouth at bedtime as needed. - diphenhydrAMINE-Acetamin ophen (PM PAIN RELIEF) 25-500 mg tab Take by mouth. 5 at bedtime - Ibuprofen 200 mg cap Take by mouth. 4 tablets prn - MULTIVIT ANDMINERALS/FERROUS FUM (MULTI VITAMIN ORAL) Take by mouth. - ranitidine 150 mg tablet Take 150 mg by mouth twice daily. - GLUCOSAMINE HCL/CHONDR RATLIFF A NA (OSTEO BI-FLEX ORAL) Take 2 tablets by mouth once daily. Problem List As Of Date: 02/26/2024 (None) Encounter Status:[facility] ELIGIO MCCABE ([id number]) 1950 M Date Time Provider Department 02/25/24 1:40 PM NATALIA KING UROLCARMEN During your visit today, we recorded the following information about you: Court Paul MA 02/25/2024 5:43 PM Signed Patient presents for trial of voiding. Bladder filled with 300 cc of sterile water, balloon deflated, rocha catheter removed without difficulty, balloon intact. Patient voided 0 cc's Rocha then reinserted. 18 Straight would not advance past the prostate, order to change from straight to coude given per Natalia King PA-C . 18 Coude rocha inserted without difficulty. 400ml of urine mixed with saline drained. Pt tolerated well. New cath secure and bedside bag given. GETACHEW Howard Brandon, PA-C 02/25/2024 5:43 PM Signed [facility] ESTABLISHED PATIENT CLINIC NOTE SERVICE DATE: February 25, 2024 NAME: Eligio Mccabe CC: Urinary Retention HPI: Eligio Mccabe is a 73 year old male with a history of Urinary Retention Rocha catheter exchanges monthly , he has been on Flomax and reduced his opioid medecation The patient is here now for a TOV and rocha catheter removal. PROCEDURE: Performed a TOV. Patient presents for trial of voiding. Bladder filled with 300 cc of sterile water, balloon deflated, rocha catheter removed without difficulty, balloon intact. Patient voided 0 cc's Rocha then reinserted. 18 Straight would not advance past the prostate, order to change from straight to coude given per Natalia King PA-C . 18 Coude rocha inserted without difficulty. 400ml of urine mixed with saline drained. Pt tolerated well. New cath secure and bedside bag given. Court Paul MA ASSESSMENT / PLAN > Rocha catheter removed during TOV , patient unable to urinate on his own, 18f coude catheter replaced > Discussed surgical options for urine retention, but will need UDS and Cysto/TRUS then surgical consult to discuss options > Follow-up monthly for rocha exchanges until procedures are perfomed MARIIA Ramos, MTDEVIN Referring Provider: SELF [[id number]] Allergies As of Date: 02/25/2024 Noted Allergy Reaction ASPIRIN COMPOUND 10/27/2013 8 - GI Upset Comments: History of gastric ulcer x2 with ASA use. Date Reviewed: 02/25/2024 Reviewed by: Court Paul MA - Fully Assessed Reason for Visit: Voiding Trial [410] Follow Up [171] Primary Visit Diagnosis:Urine retention [R33.9] Order(s):URODYNAMICS [[id number]] Order #: [id number] CYSTO/TRUS ONLY [[id number]] Order #: [id number] Prescriptions as of 02/25/2024 - OXYGEN, HOME THERAPY, 3 L/min by Nasal Cannula route as directed. Uses 3L via nasal cannula daily and at 4L via Nasal cannula at night - fluticasone (FLONASE) 50 mcg/actuation nasal spray Use 2 Sprays in each nostril once daily. - docusate sodium (COLACE) 100 mg capsule Take 100 mg by mouth once daily. - pantoprazole DR (PROTONIX) 40 mg tablet Take 40 mg by mouth two times a day. - pravastatin (PRAVACHOL) 40 mg tablet Take 40 mg by mouth daily at bedtime. - MULTIVITAMIN ORAL Take by mouth once daily. - carboxymethylcellulose (REFRESH) 0.5 % drop Use 1 Drop in both eyes every 4 hours as needed. 4-6 times daily as needed - ipratropium-albuterol (DUONEB) 0.5 mg-3 mg(2.5 mg base)/3 mL nebu Inhale 3 mL as instructed two times a day. - Walker misc Rollator walker with seat - tamsulosin (FLOMAX) 0.4 mg Take 0.4 mg by mouth once daily. - ncqgcowyste-wbxwyiqez-bh lanter (TRELEGY ELLIPTA) 100-62.5-25 mcg inhalation powder Inhale 1 Puff as instructed once daily. - predniSONE (DELTASONE) 10 mg tablet Take 4 tablets daily for 2 days, 2 tablets daily for 2 days, 1 tablet daily for 2 days - albuterol HFA (PROAIR HFA) 90 mcg/actuation inhaler Inhale 2 Puffs as instructed every 4 hours as needed for Wheezing/Shortness of Breath. - gabapentin (NEURONTIN) 600 mg tablet Take 600 mg by mouth three times a day. - venlafaxine XR (EFFEXOR XR) 150 mg 24 hr capsule Take 150 mg by mouth once daily. - HYDROCODONE/ACETAMINOPHE N (VICODIN ES ORAL) Take 10-325 mg by mouth three times a day. 325 mg 4 x daily - atenolol 50 mg tablet Take 50 mg by mouth once daily. - cyclobenzaprine (FLEXERIL) 10 mg tablet Take 10 mg by mouth three times a day as needed. - traZODone 100 mg tablet Take 100 mg by mouth daily at bedtime. - zolpidem 10 mg tab Take by mouth at bedtime as needed. - diphenhydrAMINE-Acetamin ophen (PM PAIN RELIEF) 25-500 mg tab Take by mouth. 5 at bedtime - Ibuprofen 200 mg cap Take by mouth. 4 tablets prn - MULTIVIT ANDMINERALS/FERROUS FUM (MULTI VITAMIN ORAL) Take by mouth. - ranitidine 150 mg tablet Take 150 mg by mouth twice daily. - GLUCOSAMINE HCL/CHONDR RATLIFF A NA (OSTEO BI-FLEX ORAL) Take 2 tablets by mouth once daily. Problem (more content not included)... [facility] Absolute lymphocyte countOrd ered By: Anoop Esparza on 02-05-2024 Lymphocytes Auto (Unsp spec) [#/Vol] 1.23 10*3/uL 0.83-4.51 [facility] Automated lymphocyte count a s percentage of total leukocytesOrdered By: Anoop Esparza on 02-05-2024 Lymphocytes/100 WBC Auto (Unsp spec) 11.9 % 19-41 [facility] Basophil percentageOrdered B y: Anoop Esparza on 02-05-2024 Basophil percentage 11.1 g/dL 13.0-16.5 [facility] Basophil percentage 100 mg/dL 74-106 [facility] Basophil percentage 8.1 g/dL 6.4-8.2 [facility] Basophil percentage 0.30 mg/dL 0.20-1.00 [facility] Basophil percentage 136 mmol/L 136-145 [facility] Basophil percentage 4.4 mmol/L 3.5-5.1 [facility] Basophil percentage 105 mmol/L 98-107 [facility] Basophils (Bld) [#/Vol] 10.4 10*3/uL 4.4-11.0 [facility] Basophils (Bld) [#/Vol] 7.4 10*3/uL 2.0-7.7 [facility] Basophils/100 WBC (Bld) 71.0 % 47-70 [facility] Basophils/100 WBC (Bld) 6.9 % 0-10 [facility] Basophils/100 WBC (Bld) 9.0 % 0-5 [facility] Basophils/100 WBC (Bld) 0.9 % 0-1 [facility] Determination of erythrocyte mean corpuscular volume (MCV)Ordered By: Anoop Esparza on 02-05-2024 MCV (RBC) [Entitic vol] 98.4 fL 80-94 [facility] Erythrocyte distribution wid th ratioOrdered By: Anoop Esparza on 02-05-2024 Erythrocyte distribution width (RBC) [Ratio] 15.2 % 11.6-14.6 [facility] Erythrocyte distribution wid th standard deviationOrdered By: Anoop Esparza on 02-05-2024 Erythrocyte distribution width (RBC) [Entitic vol] 55.2 fL 35.1-43.9 [facility] Hematocrit Auto (Bld) [Volum e fraction]Ordered By: Anoop Esparza on 02-05-2024 Hematocrit (Bld) [Volume fraction] 36.4 % 40-54 [facility] Immature granulocytes/100 WB C Auto (Bld)Ordered By: Anoop Esparza on 02-05-2024 Immature granulocytes/100 WBC (Bld) 0.300 % 0.0-0.9 [facility] No Panel InformationOrdered By: Anoop Esparza on 02-05-2024 30.0 pg 27.0-32.0 [facility] 30.5 g/dL 32-36 [facility] 359 K/mm3 150-450 [facility] 9.2 fl 6.2-12.0 [facility] 0 % 0-5 [facility] 66 mL/min >60 [facility] 80 mL/min >60 [facility] 20.9 RATIO 10-20 [facility] 4.9 g/dL 2.2-4.2 [facility] 0.7 RATIO 0.9-2.4 [facility] 94 U/L 45-117 [facility] 20 U/L 16-61 [facility] 28.0 mmol/L 21.0-32.0 [facility] RBC Auto (Bld) [#/Vol]Ordere d By: Anoop Esparza on 02-05-2024 RBC (Bld) [#/Vol] 3.70 10*6/uL 4.6-6.2 [facility] Serum or plasma calcium fernando urement (mass/volume)Ordered By: Anoop Esparza on 02-05-2024 Calcium [Mass/Vol] 10.0 mg/dL 8.5-10.1 [facility] Serum or plasma creatinine m easurement (mass/volume)Ordered By: Anoop Esparza on 02-05-2024 Creatinine [Mass/Vol] 1.15 mg/dL 0.70-1.30 [facility] Serum or plasma urea nitroge n measurement (mass/volume)Ordered By: Anoop Esparza on 02-05-2024 Urea nitrogen [Mass/Vol] 24 mg/dL 7-18 [facility] Thin prep Papanicolaou smear with manual screeningOrdered By: Anoop Esparza on 02-05-2024 Thin prep Papanicolaou smear with manual screening 3.2 g/dL 3.2-5.0 [facility] Thin prep Papanicolaou smear with manual screening 20 U/L 15-37 [facility] Thin prep Papanicolaou smear with manual screening 3 5-15 [facility] CNPNon 01-22-2024 SOLEN Telephone (URO[place]WS) -------- ELIGIO MCCABE ([id number]) 1950 M Date Time Provider Department 01/22/24 NATALIA KING During your visit today, we recorded the following information about you: Cheri Haile LPN 01/22/2024 11:06 AM Signed Called [facility] for fax number to fax last office visit notes to: [phone]. NNADO Diaz Kimberly, LPN 01/22/2024 11:07 AM Signed Faxed office visit notes. Cheri Haile LPN Allergies As of Date: 01/22/2024 Noted Allergy Reaction ASPIRIN COMPOUND 10/27/2013 8 - GI Upset Comments: History of gastric ulcer x2 with ASA use. 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 Uses 3L via nasal cannula daily and at 4L via Nasal cannula at night - fluticasone (FLONASE) 50 mcg/actuation nasal spray Use 2 Sprays in each nostril once daily. - docusate sodium (COLACE) 100 mg capsule Take 100 mg by mouth once daily. - pantoprazole DR (PROTONIX) 40 mg tablet Take 40 mg by mouth two times a day. - pravastatin (PRAVACHOL) 40 mg tablet Take 40 mg by mouth daily at bedtime. - MULTIVITAMIN ORAL Take by mouth once daily. - carboxymethylcellulose (REFRESH) 0.5 % drop Use 1 Drop in both eyes every 4 hours as needed. 4-6 times daily as needed - ipratropium-albuterol (DUONEB) 0.5 mg-3 mg(2.5 mg base)/3 mL nebu Inhale 3 mL as instructed two times a day. - Walker mis Rollator walker with seat - tamsulosin (FLOMAX) 0.4 mg Take 0.4 mg by mouth once daily. - cwvplgsmomx-xemqdtvbo-og lanter (TRELEGY ELLIPTA) 100-62.5-25 mcg inhalation powder Inhale 1 Puff as instructed once daily. - predniSONE (DELTASONE) 10 mg tablet Take 4 tablets daily for 2 days, 2 tablets daily for 2 days, 1 tablet daily for 2 days - albuterol HFA (PROAIR HFA) 90 mcg/actuation inhaler Inhale 2 Puffs as instructed every 4 hours as needed for Wheezing/Shortness of Breath. - gabapentin (NEURONTIN) 600 mg tablet Take 600 mg by mouth three times a day. - venlafaxine XR (EFFEXOR XR) 150 mg 24 hr capsule Take 150 mg by mouth once daily. - HYDROCODONE/ACETAMINOPHE N (VICODIN ES ORAL) Take 10-325 mg by mouth three times a day. 325 mg 4 x daily - atenolol 50 mg tablet Take 50 mg by mouth once daily. - cyclobenzaprine (FLEXERIL) 10 mg tablet Take 10 mg by mouth three times a day as needed. - traZODone 100 mg tablet Take 100 mg by mouth daily at bedtime. - zolpidem 10 mg tab Take by mouth at bedtime as needed. - diphenhydrAMINE-Acetamin ophen (PM PAIN RELIEF) 25-500 mg tab Take by mouth. 5 at bedtime - Ibuprofen 200 mg cap Take by mouth. 4 tablets prn - MULTIVIT ANDMINERALS/FERROUS FUM (MULTI VITAMIN ORAL) Take by mouth. - ranitidine 150 mg tablet Take 150 mg by mouth twice daily. - GLUCOSAMINE HCL/CHONDR RATLIFF A NA (OSTEO BI-FLEX ORAL) Take 2 tablets by mouth once daily. Problem List As Of Date: 01/22/2024 (None) Encounter Status:Closed by CHERI HAILE on 01/22/24 [facility] CNOVon 01-21-2024 CNOV Office Visit (UROLWS ) -------- MCCABEELIGIO ALANIS [place] ([id number]) 1950 M Date Time Provider Department 01/21/24 3:30 PM NATALIA KING UROLCARMEN During your visit today, we recorded the following information about you: Temperature Pulse Respiration Blood pressure 99.6 degrees 84/minute 18/minute 122/70 Weight Height 67.6 kg 1.829 m Natalia King PA-C 01/21/2024 5:23 PM Signed CC Trial of Void HPI: Eligiomacario Mccabe is a 73 year old male. [address] The patient is here now for a TOV and rocha catheter removal. Procedure: Perform a TOV. Bladder filled through rocha with 200 mL of sterile water/ 0.9% Sodium chloride, removed fluid from balloon and the rocha was removed with catheter intact and patient voided 0 mL. Patient was not able to empty his bladder on own without straining. The indwelling rocha was removed without difficulty. The patient tolerated the procedure well. Inserted 18 Fr catheter using aseptic technique. Irrigated with 60 mL sterile water without difficulties. 350 mLs slightlycloudy, yellow urine return noted. Bulb inflated with 10 mLs prefilled syringe- sterile water. Catheter secured to right inner thigh with stat lock and leg strap. The patient tolerated the procedure well. Reviewed catheter care- states he is at [facility] and staff do care of rocha catheter. Assessment/Plan: > Rocha catheter removal with TOV. > Unsuccessful rocha catheter removal. > Rocha cathter inserted. Return as instructed every 4-6 weeks for catheter changes if needed at clinic. Cheri Haile LPN > Discussed potential of urine retention due to being on Opioid medication which is known to cause urine retention He also has a history of BPH, I recommend reduction of opioid medication and remain on Flomax and can repeat a TOV at that time > Also gave the option of learning how to perform CIC instead of use of rocha, not interested at this time but will follow-up if he would Like to learn > We will continue monthly rocha exchanges for the near future. Natalia King, [place], [place], PA-C Referring Provider: SELF [200] Allergies As of Date: 01/21/2024 Noted Allergy Reaction ASPIRIN COMPOUND 10/27/2013 8 - GI Upset Comments: History of gastric ulcer x2 with ASA use. Date Reviewed: 01/21/2024 Reviewed by: Cheri Haile LPN - Fully Assessed Reason for Visit: enlarged prostate [Other] New Patient [172] Urinary Retention [228] Primary Visit Diagnosis:Urine retention [R33.9] Order(s):VOIDING TRIAL PROTOCOL [[id number]] Order #: [id number] CATHETER INSERT-ROCHA [[id number]] Order #: [id number]: 99 STANDING Prescriptions as of 01/21/2024 - OXYGEN, HOME THERAPY, 3 L/min by Nasal Cannula route as directed. Uses 3L via nasal cannula daily and at 4L via Nasal cannula at night - fluticasone (FLONASE) 50 mcg/actuation nasal spray Use 2 Sprays in each nostril once daily. - docusate sodium (COLACE) 100 mg capsule Take 100 mg by mouth once daily. - pantoprazole DR (PROTONIX) 40 mg tablet Take 40 mg by mouth two times a day. - pravastatin (PRAVACHOL) 40 mg tablet Take 40 mg by mouth daily at bedtime. - MULTIVITAMIN ORAL Take by mouth once daily. - carboxymethylcellulose (REFRESH) 0.5 % drop Use 1 Drop in both eyes every 4 hours as needed. 4-6 times daily as needed - ipratropium-albuterol (DUONEB) 0.5 mg-3 mg(2.5 mg base)/3 mL nebu Inhale 3 mL as instructed two times a day. - Walker mis Rollator walker with seat - tamsulosin (FLOMAX) 0.4 mg Take 0.4 mg by mouth once daily. - zrkvxjzprcp-bodudtdbn-ff lanter (TRELEGY ELLIPTA) 100-62.5-25 mcg inhalation powder Inhale 1 Puff as instructed once daily. - predniSONE (DELTASONE) 10 mg tablet Take 4 tablets daily for 2 days, 2 tablets daily for 2 days, 1 tablet daily for 2 days - albuterol HFA (PROAIR HFA) 90 mcg/actuation inhaler Inhale 2 Puffs as instructed every 4 hours as needed for Wheezing/Shortness of Breath. - gabapentin (NEURONTIN) 600 mg tablet Take 600 mg by mouth three times a day. - venlafaxine XR (EFFEXOR XR) 150 mg 24 hr capsule Take 150 mg by mouth once daily. - HYDROCODONE/ACETAMINOPHE N (VICODIN ES ORAL) Take 10-325 mg by mouth three times a day. 325 mg 4 x daily - atenolol 50 mg tablet Take 50 mg by mouth once daily. - cyclobenzaprine (FLEXERIL) 10 mg tablet Take 10 mg by mouth three times a day as needed. - traZODone 100 mg tablet Take 100 mg by mouth daily at bedtime. - zolpidem 10 mg tab Take by mouth at bedtime as needed. - diphenhydrAMINE-Acetamin ophen (PM PAIN RELIEF) 25-500 mg tab Take by mouth. 5 at bedtime - Ibuprofen 200 mg cap Take by mouth. 4 tablets prn - MULTIVIT ANDMINERALS/FERROUS FUM (MULTI VITAMIN ORAL) Take by mouth. - ranitidine 150 mg tablet Take 150 mg by mouth twice daily. - GLUCOSAMINE HCL/CHONDR RATLIFF A NA (OSTEO BI-FLEX ORAL) Take 2 tablets by m (more content not included)... [facility] Giardia lamblia ag stool EIA Ordered By: Perry Hays on 01-15-2024 G. lamblia Ag IA Ql (Stl) Negative Negative [facility] No Panel InformationOrdered By: Perry Hays on 01-15-2024 207 ug/g 0-120 [facility] Stool pancreatic elastase me asurement (mass/mass)Ordered By: Perry Hays on 01-15-2024 Elastase.pancreatic (Stl) [Mass/Mass] 166 >200 [facility] SOLENon 01-14-2024 CLIFF Telephone (UROLWS) -------- ELIGIO MCCABE ([id number]) 1950 M Date Time Provider Department 01/14/24 NATALIA KING During your visit today, we recorded the following information about you: Cheri Haile LPN 01/14/2024 3:49 PM Signed Called patient. Frederick answered call- she reports that patient was sen at [facility] in November and a rocha catheter was inserted due to enlarged prostate and he has had rocha catheter in since. Patient was then transferred to [facility]. Frederick states they have not changed rocha catheter since his admission that she is aware of. Per Frederick she will have [facility] fax medical records for upcoming appointment. [facility] records requested via staff with [employer] access. NANDO Diaz Kimberly, LPN 01/16/2024 11:30 AM Signed Visit notes from [facility] received- uploaded to scanned docs in [employer] via [employer]. NANDO Diaz Kimberly, LPN 01/17/2024 2:53 PM Signed Received medical records from [facility]. Uploaded to scanned docs in [employer] via [employer]. Cheri Haile LPN Allergies As of Date: 01/14/2024 Noted Allergy Reaction ASPIRIN COMPOUND 10/27/2013 8 - GI Upset Comments: History of gastric ulcer x2 with ASA use. Date Reviewed: 05/24/2016 Reviewed by: Jessica [place] LPN - Fully Assessed Reason for Visit: Appointment [186] Request Outside Medical Records [[id number]] Received Outside Medical Records [[id number]] Prescriptions as of 01/17/2024 - predniSONE (DELTASONE) 10 mg tablet Take 4 tablets daily for 2 days, 2 tablets daily for 2 days, 1 tablet daily for 2 days - albuterol HFA (PROAIR HFA) 90 mcg/actuation inhaler Inhale 2 Puffs as instructed every 4 hours as needed for Wheezing/Shortness of Breath. - gabapentin (NEURONTIN) 600 mg tablet Take 600 mg by mouth three times daily. - venlafaxine XR (EFFEXOR XR) 150 mg 24 hr capsule Take 150 mg by mouth once daily. - HYDROCODONE/ACETAMINOPHE N (VICODIN ES ORAL) Take by mouth. 325 mg 4 x daily - atenolol 50 mg tablet Take 50 mg by mouth once daily. - cyclobenzaprine (FLEXERIL) 10 mg tablet Take 10 mg by mouth three times daily as needed. - traZODone 100 mg tablet Take 100 mg by mouth daily at bedtime. - zolpidem 10 mg tab Take by mouth at bedtime as needed. - diphenhydrAMINE-Acetamin ophen (PM PAIN RELIEF) 25-500 mg tab Take by mouth. 5 at bedtime - Ibuprofen 200 mg cap Take by mouth. 4 tablets prn - MULTIVIT ANDMINERALS/FERROUS FUM (MULTI VITAMIN ORAL) Take by mouth. - ranitidine 150 mg tablet Take 150 mg by mouth twice daily. - GLUCOSAMINE HCL/CHONDR RATLIFF A NA (OSTEO BI-FLEX ORAL) Take by mouth. Problem List As Of Date: 01/14/2024 (None) Encounter Status:Closed by CHERI HAILE on 01/17/24 [facility] ESRon 01-14-2024 Erythrocyte Sed Rate 39 mm/hr High 0-20 [facility] (ID) Comment on above: Performed By: #### E SR #### Malathi [address], [place] [address] LABORATORYOrdered By: Bonnie Knott on 01-14-2024 ESR Photometric method (Bld) [Velocity] 39 mm/hr High 0 - 20 mm/hr AO Man Heme SS Absolute lymphocyte countOrd ered By: Perry Hays on 01-13-2024 Lymphocytes Auto (Unsp spec) [#/Vol] 1.05 10*3/uL 0.83-4.51 [facility] Albumin Elph [Mass/Vol]Order ed By: Perry Hays on 01-13-2024 Albumin [Mass/Vol] 3.2 g/dL 2.9-4.4 [facility] Automated lymphocyte count a s percentage of total leukocytesOrdered By: Perry Hays on 01-13-2024 Lymphocytes/100 WBC Auto (Unsp spec) 10.4 % 19-41 [facility] Basophil percentageOrdered B y: Perry Hays on 01-13-2024 Basophil percentage 10.2 g/dL 13.0-16.5 [facility] Basophil percentage 86 U/L 25-115 [facility] Basophil percentage < 10.0 umol/L 11-32 [facility] Basophil percentage 221 U/L 87-241 [facility] Basophils (Bld) [#/Vol] 10.1 10*3/uL 4.4-11.0 [facility] Basophils (Bld) [#/Vol] 7.3 10*3/uL 2.0-7.7 [facility] Basophils/100 WBC (Bld) 71.7 % 47-70 [facility] Basophils/100 WBC (Bld) 6.5 % 0-10 [facility] Basophils/100 WBC (Bld) 9.8 % 0-5 [facility] Basophils/100 WBC (Bld) 0.9 % 0-1 [facility] Chitobioside IgA antibody as sayOrdered By: Perry Hays on 01-13-2024 Chitobioside IgA IA Qn 25 units 0-90 [facility] Determination of erythrocyte mean corpuscular volume (MCV)Ordered By: Perry Hays on 01-13-2024 MCV (RBC) [Entitic vol] 97.6 fL 80-94 [facility] Erythrocyte distribution wid th ratioOrdered By: Perry Hays on 01-13-2024 Erythrocyte distribution width (RBC) [Ratio] 16.2 % 11.6-14.6 [facility] Erythrocyte distribution wid th standard deviationOrdered By: Perry Hays on 01-13-2024 Erythrocyte distribution width (RBC) [Entitic vol] 58.7 fL 35.1-43.9 [facility] Erythrocyte sedimentation ra teOrdered By: Perry Hays on 01-13-2024 ESR (Bld) [Velocity] 39 mm/h 0-20 [facility] Hematocrit Auto (Bld) [Volum e fraction]Ordered By: Perry Hays on 01-13-2024 Hematocrit (Bld) [Volume fraction] 32.8 % 40-54 [facility] Hemoglobin in reticulocytes (mass per reticulocyte)Ordered By: Perry Hays on 01-13-2024 Hemoglobin (Reticulocytes) [Entitic mass] 31.6 pg 30-35 [facility] Immature granulocytes/100 WB C Auto (Bld)Ordered By: Perry Hays on 01-13-2024 Immature granulocytes/100 WBC (Bld) 0.700 % 0.0-0.9 [facility] Interpretation of serum or p lasma protein pattern by immunofixation (narrative resultOrdered By: Perry Hays on 01-13-2024 Protein Fractions Immunofixation Reg [Interp] Not Observed g/dL Not Observed [facility] Iron measurement (mass/mass) Ordered By: Perry Hays on 01-13-2024 Iron (Unsp spec) [Mass/Mass] 33 ug/dL 65-175 [facility] Laboratory - Miscellaneous t estsOrdered By: Perry Hays on 01-13-2024 Laboratory comment Reg (Report) Comment . [facility] Laminaribioside carbohydrate IgG antibody assayOrdered By: Perry Hays on 01-13-2024 Laminaribioside IgG IA Qn 22 units 0-60 [facility] No Panel InformationOrdered By: Perry Hays on 01-13-2024 Addendum Document Comment . [facility] 30.4 pg 27.0-32.0 [facility] 31.1 g/dL 32-36 [facility] 340 K/mm3 150-450 [facility] 8.9 fl 6.2-12.0 [facility] 0 % 0-5 [facility] 15.70 % 3.00-15.90 [facility] 55 U/L 13-75 [facility] 21.20 mg/L 0.0-3.0 [facility] 1.7 pg/mL 2.18-3.98 [facility] 247 ug/dL 250-450 [facility] 202 ng/mL 26-388 [facility] 20.70 ng/mL 3.1-55.4 [facility] 96 units 0-50 [facility] 162 mg/dL 34-355 [facility] 34 mg/dL 15-143 [facility] 681 IU/mL 6-495 [facility] <1:20 titer Neg:<1:20 [facility] Negative Negative [facility] Qualitative QuantiFERON-TB g old in tube testOrdered By: Perry Hays on 01-13-2024 M. tuberculosis tuberculin stim IFN-g Ql (Bld) 0.03 IU/mL . [facility] RBC Auto (Bld) [#/Vol]Ordere d By: Perry Hays on 01-13-2024 RBC (Bld) [#/Vol] 3.36 10*6/uL 4.6-6.2 [facility] Reticulocytes Auto (Bld) [#/ Vol]Ordered By: Perry Hays on 01-13-2024 Reticulocytes/100 RBC (Bld) 2.07 % 0.5-1.5 [facility] Serum [id number] measu rement by electrophoresisOrdered By: Perry Hays on 01-13-2024 Alpha 1 globulin Elph [Mass/Vol] 0.3 g/dL 0.0-0.4 [facility] Alpha 1 globulin Elph [Mass/Vol] 0.9 g/dL 0.4-1.0 [facility] Serum classic neutrophil cyt oplasmic antibody assay (units/volume)Ordered By: Perry Hays on 01-13-2024 Neutrophil cytoplasmic Ab.classic Qn (S) <1:20 titer Neg:<1:20 [facility] Serum globulin measurement ( mass/volume)Ordered By: Perry Hays on 01-13-2024 Globulin (S) [Mass/Vol] 4.2 g/dL 2.2-3.9 [facility] Serum or plasma IgA measurem ent (mass/volume)Ordered By: Perry Hays on 01-13-2024 IgA [Mass/Vol] 481 mg/dL 61-437 [facility] Serum or plasma IgG measurem ent (mass/volume)Ordered By: Perry Hays on 01-13-2024 IgG [Mass/Vol] 1751 mg/dL 603-1613 [facility] Serum or plasma angiotensin converting enzyme measurement (enzymatic activity/volume)Ordered By: Perry Hays on 01-13-2024 Angiotensin converting enzyme [Catalytic activity/Vol] 73 U/L 14-82 [facility] Serum or plasma beta globuli n measurement by electrophoresis (mass/volume)Ordered By: Perry Hays on 01-13-2024 Beta globulin Elph [Mass/Vol] 1.2 g/dL 0.7-1.3 [facility] Serum or plasma cortisol elkin surement (mass/volume)Ordered By: Perry Hays on 01-13-2024 Cortisol [Mass/Vol] 15.80 ug/dL 3.44-22.45 [facility] Serum or plasma gamma globul in measurement by electrophoresis (mass/volume)Ordered By: Perry Hays on 01-13-2024 Gamma globulin Elph [Mass/Vol] 1.7 g/dL 0.4-1.8 [facility] Serum or plasma immunoelectr ophoresis interpretation (nominal result)Ordered By: Perry Hays on 01-13-2024 Interpretation IEP [Interp] Comment . [facility] Serum or plasma mannobioside IgG antibody assay by immunoassay (units/volume)Ordered By: Perry Hays on 01-13-2024 Mannobioside IgG IA Qn 52 units 0-100 [facility] Serum or plasma thyroid stim ulating hormone (TSH) measurement (units/volume)Ordered By: Perry Hays on 01-13-2024 TSH Qn 1.81 uIU/mL 0.358-3.74 [facility] Serum perinuclear neutrophil cytoplasmic antibody titer by immunofluorescenceOrdered By: Perry Hays on 01-13-2024 Neutrophil cytoplasmic Ab.perinuclear IF (S) [Titer] <1:20 titer Neg:<1:20 [facility] Serum tissue transglutaminas e IgA antibody assay (units/volume)Ordered By: Perry Hays on 01-13-2024 tTG IgA Qn (S) <2 U/mL 0-3 [facility] Thin prep Papanicolaou smear with manual screeningOrdered By: Perry Hays on 01-13-2024 Thin prep Papanicolaou smear with manual screening 1.02 ng/dL 0.76-1.46 [facility] Thin prep Papanicolaou smear with manual screening 0.8 0.7-1.7 [facility] Thin prep Papanicolaou smear with manual screening Comment . [facility] Thin prep Papanicolaou smear with manual screening 0.01 IU/mL . [facility] Thin prep Papanicolaou smear with manual screening 0 IU/mL . [facility] Thin prep Papanicolaou smear with manual screening 5.26 IU/mL . [facility] Thin prep Papanicolaou smear with manual screening Negative Negative [facility] Total protein bloodOrdered B y: Perry Hays on 01-13-2024 Protein [Mass/Vol] 7.4 g/dL 6.0-8.5 [facility] Absolute lymphocyte countOrd ered By: Shalini Ferrari on 12-16-2023 Lymphocytes Auto (Unsp spec) [#/Vol] 0.94 10*3/uL 0.83-4.51 [facility] Automated lymphocyte count a s percentage of total leukocytesOrdered By: Shalini Ferrari on 12-16-2023 Lymphocytes/100 WBC Auto (Unsp spec) 5.0 % 19-41 [facility] Basophil percentageOrdered B y: Shalini Ferrari on 12-16-2023 Basophil percentage 8.2 g/dL 13.0-16.5 [facility] Basophils (Bld) [#/Vol] 19.0 10*3/uL 4.4-11.0 [facility] Basophils (Bld) [#/Vol] 16.7 10*3/uL 2.0-7.7 [facility] Basophils/100 WBC (Bld) 88.1 % 47-70 [facility] Basophils/100 WBC (Bld) 3.8 % 0-10 [facility] Basophils/100 WBC (Bld) 1.9 % 0-5 [facility] Basophils/100 WBC (Bld) 0.6 % 0-1 [facility] Determination of erythrocyte mean corpuscular volume (MCV)Ordered By: Shalini Ferrari on 12-16-2023 MCV (RBC) [Entitic vol] 100.8 fL 80-94 [facility] Erythrocyte distribution wid th ratioOrdered By: Shalnii Ferrari on 12-16-2023 Erythrocyte distribution width (RBC) [Ratio] 16.1 % 11.6-14.6 [facility] Erythrocyte distribution wid th standard deviationOrdered By: Shalini Ferrari on 12-16-2023 Erythrocyte distribution width (RBC) [Entitic vol] 59.0 fL 35.1-43.9 [facility] Hematocrit Auto (Bld) [Volum e fraction]Ordered By: Shalini Ferrari on 12-16-2023 Hematocrit (Bld) [Volume fraction] 25.8 % 40-54 [facility] Immature granulocytes/100 WB C Auto (Bld)Ordered By: Shalini Ferarri on 12-16-2023 Immature granulocytes/100 WBC (Bld) 0.600 % 0.0-0.9 [facility] No Panel InformationOrdered By: Shalini Ferrari on 12-16-2023 32.0 pg 27.0-32.0 [facility] 31.8 g/dL 32-36 [facility] 357 K/mm3 150-450 [facility] 9.3 fl 6.2-12.0 [facility] 0 % 0-5 [facility] RBC Auto (Bld) [#/Vol]Ordere d By: Shalini Ferrari on 12-16-2023 RBC (Bld) [#/Vol] 2.56 10*6/uL 4.6-6.2 [facility] Absolute lymphocyte countOrd ered By: Trinidad Alarcon on 12-11-2023 Lymphocytes Auto (Unsp spec) [#/Vol] 1.05 10*3/uL 0.83-4.51 [facility] Automated lymphocyte count a s percentage of total leukocytesOrdered By: Trinidad Alarcon on 12-11-2023 Lymphocytes/100 WBC Auto (Unsp spec) 11.6 % 19-41 [facility] Basophil percentageOrdered B y: Trinidad Alarcon on 12-11-2023 Basophil percentage 9.0 g/dL 13.0-16.5 [facility] Basophils (Bld) [#/Vol] 9.1 10*3/uL 4.4-11.0 [facility] Basophils (Bld) [#/Vol] 6.0 10*3/uL 2.0-7.7 [facility] Basophils/100 WBC (Bld) 65.8 % 47-70 [facility] Basophils/100 WBC (Bld) 9.7 % 0-10 [facility] Basophils/100 WBC (Bld) 10.7 % 0-5 [facility] Basophils/100 WBC (Bld) 0.9 % 0-1 [facility] Determination of erythrocyte mean corpuscular volume (MCV)Ordered By: Trinidad Alarcon on 12-11-2023 MCV (RBC) [Entitic vol] 99.6 fL 80-94 [facility] Erythrocyte distribution wid th ratioOrdered By: Trinidad Alarcon on 12-11-2023 Erythrocyte distribution width (RBC) [Ratio] 17.2 % 11.6-14.6 [facility] Erythrocyte distribution wid th standard deviationOrdered By: Trinidad Alarcon on 12-11-2023 Erythrocyte distribution width (RBC) [Entitic vol] 62.9 fL 35.1-43.9 [facility] Hematocrit Auto (Bld) [Volum e fraction]Ordered By: Trinidad Alarcon on 12-11-2023 Hematocrit (Bld) [Volume fraction] 27.1 % 40-54 [facility] Immature granulocytes/100 WB C Auto (Bld)Ordered By: Trinidad Alarcon on 12-11-2023 Immature granulocytes/100 WBC (Bld) 1.300 % 0.0-0.9 [facility] No Panel InformationOrdered By: Trinidad Alarcon on 12-11-2023 33.1 pg 27.0-32.0 [facility] 33.2 g/dL 32-36 [facility] 264 K/mm3 150-450 [facility] 9.0 fl 6.2-12.0 [facility] 0 % 0-5 [facility] RBC Auto (Bld) [#/Vol]Ordere d By: Trinidad Alarcon on 12-11-2023 RBC (Bld) [#/Vol] 2.72 10*6/uL 4.6-6.2 [facility] Albumin Elph [Mass/Vol]Order ed By: Perry Hays on 12-10-2023 Albumin [Mass/Vol] 2.8 g/dL 2.9-4.4 [facility] Atypical perinuclear antineu trophil cytoplasmic antibodies measurementOrdered By: Perry Hays on 12-10-2023 Neutrophil cytoplasmic Ab.perinuclear.atypical IF (S) [Titer] <1:20 titer Neg:<1:20 [facility] Blood manual differential co mment interpretation (narrative result)Ordered By: Trinidad Alarcon on 12-10-2023 Manual differential comment Reg (Bld) [Interp] SCANNED [facility] Chitobioside IgA antibody as sayOrdered By: Perry Hays on 12-10-2023 Chitobioside IgA IA Qn 47 units 0-90 [facility] Interpretation of serum or p lasma protein pattern by immunofixation (narrative resultOrdered By: Perry Hays on 12-10-2023 Protein Fractions Immunofixation Reg [Interp] Not Observed g/dL Not Observed [facility] Laboratory - Miscellaneous t estsOrdered By: Perry Hays on 12-10-2023 Laboratory comment Reg (Report) Comment . [facility] Laminaribioside carbohydrate IgG antibody assayOrdered By: Perry Hays on 12-10-2023 Laminaribioside IgG IA Qn 8 units 0-60 [facility] Macrocytes detectionOrdered By: Trinidad Alarcon on 12-10-2023 Macrocytes Ql (Bld) 1+ [facility] No Panel InformationOrdered By: Perry Hays on 12-10-2023 Addendum Document Comment . [facility] < 0.2 AI 0.0-0.9 [facility] 0.4 AI 0.0-0.9 [facility] 78 units 0-50 [facility] 36 mg/dL 15-143 [facility] 1.0 AU/mL 0.0-1.1 [facility] 7 units 0-19 [facility] 4 units 0-19 [facility] 7 U/mL 0-5 [facility] Negative Negative [facility] No Panel InformationOrdered By: Trinidad Alarcon on 12-10-2023 2+ [facility] Serum DNA double strand anti body assay (units/volume)Ordered By: Perry Hays on 12-10-2023 DNA double strand Ab Qn (S) 1 [IU]/mL 0-9 [facility] Serum Scl-70 antibody assay (units/volume)Ordered By: Perry Hays on 12-10-2023 SCL-70 extractable nuclear Ab Qn (S) <0.2 AI 0.0-0.9 [facility] Serum [id number] measu rement by electrophoresisOrdered By: Perry Hays on 12-10-2023 Alpha 1 globulin Elph [Mass/Vol] 0.3 g/dL 0.0-0.4 [facility] Alpha 1 globulin Elph [Mass/Vol] 0.9 g/dL 0.4-1.0 [facility] Serum classic neutrophil cyt oplasmic antibody assay (units/volume)Ordered By: Perry Hays on 12-10-2023 Neutrophil cytoplasmic Ab.classic Qn (S) <1:20 titer Neg:<1:20 [facility] Serum globulin measurement ( mass/volume)Ordered By: Perry Hays on 12-10-2023 Globulin (S) [Mass/Vol] 3.3 g/dL 2.2-3.9 [facility] Serum or plasma IgA measurem ent (mass/volume)Ordered By: Perry Hays on 12-10-2023 IgA [Mass/Vol] 368 mg/dL 61-437 [facility] Serum or plasma IgG measurem ent (mass/volume)Ordered By: Perry Hays on 12-10-2023 IgG [Mass/Vol] 1258 mg/dL 603-1613 [facility] Serum or plasma beta globuli n measurement by electrophoresis (mass/volume)Ordered By: Perry Hays on 12-10-2023 Beta globulin Elph [Mass/Vol] 1.0 g/dL 0.7-1.3 [facility] Serum or plasma gamma globul in measurement by electrophoresis (mass/volume)Ordered By: Perry Hays on 12-10-2023 Gamma globulin Elph [Mass/Vol] 1.2 g/dL 0.4-1.8 [facility] Serum or plasma gastrin fernando urement (mass/volume)Ordered By: Perry Hays on 12-10-2023 Gastrin [Mass/Vol] 37 pg/mL 0-115 [facility] Serum or plasma immunoelectr ophoresis interpretation (nominal result)Ordered By: Perry Hays on 12-10-2023 Interpretation IEP [Interp] Comment . [facility] Serum or plasma mannobioside IgG antibody assay by immunoassay (units/volume)Ordered By: Perry Hays on 12-10-2023 Mannobioside IgG IA Qn 50 units 0-100 [facility] Serum parietal cell antibody assay (units/volume)Ordered By: Perry Hays on 12-10-2023 Parietal cell Ab Qn (S) 4.6 Units 0.0-20.0 [facility] Serum perinuclear neutrophil cytoplasmic antibody titer by immunofluorescenceOrdered By: Perry Hays on 12-10-2023 Neutrophil cytoplasmic Ab.perinuclear IF (S) [Titer] <1:20 titer Neg:<1:20 [facility] Serum tissue transglutaminas e IgA antibody assay (units/volume)Ordered By: Perry Hays on 12-10-2023 tTG IgA Qn (S) <2 U/mL 0-3 [facility] Thin prep Papanicolaou smear with manual screeningOrdered By: Trinidad Alarcon on 12-10-2023 Thin prep Papanicolaou smear with manual screening 1+ [facility] Thin prep Papanicolaou smear with manual screeningOrdered By: Perry Hays on 12-10-2023 Thin prep Papanicolaou smear with manual screening 681.0 ng/mL 0.0-101.8 [facility] Thin prep Papanicolaou smear with manual screening 0.9 0.7-1.7 [facility] Total protein bloodOrdered B y: Perry Hays on 12-10-2023 Protein [Mass/Vol] 6.1 g/dL 6.0-8.5 [facility] Basophil percentageOrdered B y: Trinidad Alarcon on 12-09-2023 Basophil percentage 102 mg/dL 74-106 [facility] Basophil percentage 140 mmol/L 136-145 [facility] Basophil percentage 3.9 mmol/L 3.5-5.1 [facility] Basophil percentage 111 mmol/L 98-107 [facility] Erythrocyte sedimentation ra teOrdered By: Perry Hays on 12-09-2023 ESR (Bld) [Velocity] 34 mm/h 0-20 [facility] No Panel InformationOrdered By: Trinidad Alarcon on 12-09-2023 65 mL/min >60 [facility] 79 mL/min >60 [facility] 50.27 ml/min [facility] 15.4 RATIO 10-20 [facility] 27.0 mmol/L 21.0-32.0 [facility] No Panel InformationOrdered By: Perry Hays on 12-09-2023 32.40 mg/L 0.0-3.0 [facility] Serum or plasma calcium fernando urement (mass/volume)Ordered By: Trinidad Alarcon on 12-09-2023 Calcium [Mass/Vol] 8.2 mg/dL 8.5-10.1 [facility] Serum or plasma creatinine m easurement (mass/volume)Ordered By: Trinidad Alarcon on 12-09-2023 Creatinine [Mass/Vol] 1.17 mg/dL 0.70-1.30 [facility] Serum or plasma urea nitroge n measurement (mass/volume)Ordered By: Trinidad Alarcon on 12-09-2023 Urea nitrogen [Mass/Vol] 18 mg/dL 7-18 [facility] Thin prep Papanicolaou smear with manual screeningOrdered By: Trinidad Alarcon on 12-09-2023 Thin prep Papanicolaou smear with manual screening 2 5-15 [facility] Basophil percentageOrdered B y: Lisa Elder on 12-08-2023 Basophil percentage 1.3 mg/dL 2.5-4.9 [facility] Thin prep Papanicolaou smear with manual screeningOrdered By: Lisa Joeichiroc on 12-08-2023 Thin prep Papanicolaou smear with manual screening 2.2 g/dL 3.2-5.0 [facility] Bacteria identified Respirat ory culture Nom (Unsp spec)Ordered By: Trinidad Alarcon on 12-07-2023 Microbial respiratory culture Presumptive C albicans [facility] Microbial respiratory culture Presumptive C albicans [facility] Gram stain for investigation of transfusion reactionOrdered By: Trinidad Alarcon on 12-07-2023 Microscopic observation Gram stain Nom (Unsp spec) [facility] Microscopic observation Gram stain Nom (Unsp spec) [facility] Lower GI hemoglobin IA Ql (S tl)Ordered By: Mariann Clancy on 12-07-2023 Stool gastrointestinal hemoglobin detection by immunologic method Positive [facility] Stool gastrointestinal hemoglobin detection by immunologic method Positive [facility] Basophil percentageOrdered B y: Mariann Clancy on 12-04-2023 Basophil percentage 6.3 g/dL 6.4-8.2 [facility] Basophil percentage 0.30 mg/dL 0.20-1.00 [facility] Iron measurement (mass/mass) Ordered By: Mariann Clancy on 12-04-2023 Iron (Unsp spec) [Mass/Mass] 40 ug/dL 65-175 [facility] No Panel InformationOrdered By: Jacey Tyler on 12-04-2023 30.1 pg/mL 18.4-80.1 [facility] 31 mg/dL 15-143 [facility] Comment . [facility] No Panel InformationOrdered By: Mariann Clancy on 12-04-2023 3.7 g/dL 2.2-4.2 [facility] 0.7 RATIO 0.9-2.4 [facility] 61 U/L 45-117 [facility] 20 U/L 16-61 [facility] 180 ug/dL 250-450 [facility] 137 ng/mL 26-388 [facility] Serum or plasma IgA measurem ent (mass/volume)Ordered By: Jacey Tyler on 12-04-2023 IgA [Mass/Vol] 348 mg/dL 61-437 [facility] Serum or plasma IgG measurem ent (mass/volume)Ordered By: Jacey Tyler on 12-04-2023 IgG [Mass/Vol] 1257 mg/dL 603-1613 [facility] Serum or plasma iron saturat ion measurement (mass fraction)Ordered By: Mariann Clancy on 12-04-2023 Iron saturation [Mass fraction] 22.2 % 15.0-55.0 [facility] Thin prep Papanicolaou smear with manual screeningOrdered By: Trinidad Alarcon on 12-04-2023 Thin prep Papanicolaou smear with manual screening 113 mg/dL 74-106 [facility] Thin prep Papanicolaou smear with manual screeningOrdered By: Mariann Clancy on 12-04-2023 Thin prep Papanicolaou smear with manual screening 14 U/L 15-37 [facility] Absolute lymphocyte countOrd ered By: Hao Vega on 12-03-2023 Lymphocytes Auto (Unsp spec) [#/Vol] 0.76 10*3/uL 0.83-4.51 [facility] Automated lymphocyte count a s percentage of total leukocytesOrdered By: Hao Vega on 12-03-2023 Lymphocytes/100 WBC Auto (Unsp spec) 6.4 % 19-41 [facility] Basophil percentageOrdered B y: Hao Vega on 12-03-2023 Basophil percentage 100 mg/dL 74-106 [facility] Basophil percentage 137 mmol/L 136-145 [facility] Basophil percentage 8.0 mmol/L 3.5-5.1 [facility] Basophil percentage 108 mmol/L 98-107 [facility] Basophil percentage 0-5 SEEN /hpf 0-5 [facility] Basophil percentage 9.5 g/dL 13.0-16.5 [facility] Basophil percentage 8.0 g/dL 6.4-8.2 [facility] Basophil percentage 0.20 mg/dL 0.20-1.00 [facility] Basophils (Bld) [#/Vol] 11.9 10*3/uL 4.4-11.0 [facility] Basophils (Bld) [#/Vol] 9.7 10*3/uL 2.0-7.7 [facility] Basophils/100 WBC (Bld) 81.7 % 47-70 [facility] Basophils/100 WBC (Bld) 7.0 % 0-10 [facility] Basophils/100 WBC (Bld) 3.6 % 0-5 [facility] Basophils/100 WBC (Bld) 0.9 % 0-1 [facility] Basophil percentageOrdered B y: White on 12-03-2023 Basophil percentage 5.8 mg/dL 2.5-4.9 [facility] Bilirubin Test strip Ql (U)O rdered By: Hao Vega on 12-03-2023 Bilirubin Ql (U) Negative Negative [facility] Blood manual differential co mment interpretation (narrative result)Ordered By: Hao Vega on 12-03-2023 Manual differential comment Reg (Bld) [Interp] SCANNED [facility] Culture, urineOrdered By: Opal lissetreed Clancy on 12-03-2023 Bacteria identified Cx Nom (U) Culture exhibits no growth. [facility] Bacteria identified Cx Nom (U) Culture exhibits no growth. [facility] Determination of erythrocyte mean corpuscular volume (MCV)Ordered By: Hao Vega on 12-03-2023 MCV (RBC) [Entitic vol] 102.7 fL 80-94 [facility] Erythrocyte distribution wid th ratioOrdered By: Hao Vega on 12-03-2023 Erythrocyte distribution width (RBC) [Ratio] 14.6 % 11.6-14.6 [facility] Erythrocyte distribution wid th standard deviationOrdered By: Hao Vega on 12-03-2023 Erythrocyte distribution width (RBC) [Entitic vol] 54.7 fL 35.1-43.9 [facility] Hematocrit Auto (Bld) [Volum e fraction]Ordered By: Hao Vega on 12-03-2023 Hematocrit (Bld) [Volume fraction] 30.0 % 40-54 [facility] Immature granulocytes/100 WB C Auto (Bld)Ordered By: Hao Vega on 12-03-2023 Immature granulocytes/100 WBC (Bld) 0.400 % 0.0-0.9 [facility] Ketones Test strip Ql (U)Ord ered By: Hao Vega on 12-03-2023 Ketones Ql (U) Negative Negative [facility] Mucus LM Ql (Urine sed)Order ed By: Hao Vega on 12-03-2023 Mucus Ql (Urine sed) 0 SEEN /hpf [facility] Nitrite Test strip Ql (U)Ord ered By: Hao Vega on 12-03-2023 Nitrite Ql (U) Negative Negative [facility] No Panel InformationOrdered By: Mariann Clancy on 12-03-2023 1383 pg/mL 211-911 [facility] 52.70 ng/mL 3.1-55.4 [facility] Negative Negative [facility] 2.4 mg/dL 1.6-2.6 [facility] 66 mmol/L Not Establ. [facility] No Panel InformationOrdered By: Hao Vega on 12-03-2023 7 mL/min >60 [facility] 8 mL/min >60 [facility] 7.80 ml/min [facility] 12.1 RATIO 10-20 [facility] 21.0 mmol/L 21.0-32.0 [facility] 25-50 SEEN /hpf 0-5 [facility] 32.5 pg 27.0-32.0 [facility] 31.7 g/dL 32-36 [facility] 339 K/mm3 150-450 [facility] 10.7 fl 6.2-12.0 [facility] 0 % 0-5 [facility] 4.7 g/dL 2.2-4.2 [facility] 0.7 RATIO 0.9-2.4 [facility] 112 U/L 39-308 [facility] 81 U/L 45-117 [facility] 25 U/L 16-61 [facility] Protein Test strip Ql (U)Ord ered By: Hao Vega on 12-03-2023 Protein Ql (U) 30 mg/dl Negative [facility] RBC Auto (Bld) [#/Vol]Ordere d By: Hao Vega on 12-03-2023 RBC (Bld) [#/Vol] 2.92 10*6/uL 4.6-6.2 [facility] Serum or plasma calcium fernando urement (mass/volume)Ordered By: Hao Vega on 12-03-2023 Calcium [Mass/Vol] 11.2 mg/dL 8.5-10.1 [facility] Serum or plasma creatinine m easurement (mass/volume)Ordered By: Hao Vega on 12-03-2023 Creatinine [Mass/Vol] 8.11 mg/dL 0.70-1.30 [facility] Serum or plasma urea nitroge n measurement (mass/volume)Ordered By: Hao Vega on 12-03-2023 Urea nitrogen [Mass/Vol] 98 mg/dL 7-18 [facility] Serum procalcitonin measurem entOrdered By: Mariann Clancy on 12-03-2023 Procalcitonin [Mass/Vol] 0.14 ng/mL 0.00-0.09 [facility] Squamous epithelial cells de tection in urine sediment by light microscopyOrdered By: Hao Vega on 12-03-2023 Epithelial cells.squamous LM Ql (Urine sed) 0 SEEN /hpf 0-5 [facility] Thin prep Papanicolaou smear with manual screeningOrdered By: Hao Vega on 12-03-2023 Thin prep Papanicolaou smear with manual screening 8 5-15 [facility] Thin prep Papanicolaou smear with manual screening 3.3 g/dL 3.2-5.0 [facility] Thin prep Papanicolaou smear with manual screening 24 U/L 15-37 [facility] Urine blood detectionOrdered By: Hao Vega on 12-03-2023 RBC Ql (U) 150 /ul Negative [facility] Urine clarityOrdered By: Roscoe Vega on 12-03-2023 Clarity (U) Clear Clear [facility] Urine color determinationOrd ered By: Hao Vega on 12-03-2023 Color (U) Yellow Yellow [facility] Urine creatinine measurement (mass/volume)Ordered By: Mariann Clancy on 12-03-2023 Creatinine (U) [Mass/Vol] 48.80 mg/dL NO RANGE EST. [facility] Urine glucose detectionOrder ed By: Hao Vega on 12-03-2023 Glucose Ql (U) Normal mg/dl Normal [facility] Urine leukocyte esterase det ection by dipstickOrdered By: Hao Vega on 12-03-2023 Leukocyte esterase Test strip Ql (U) 25 /ul Negative [facility] Urine pHOrdered By: Hao anderson on 12-03-2023 pH (U) 6.5 [pH] 5.0 - 8.0 [facility] Urine sediment bacteria coun t by microscopy (number/high power field)Ordered By: Hao Vega on 12-03-2023 Bacteria LM.HPF (Urine sed) [#/Area] 0 /[HPF] None Seen [facility] Urine specific gravity measu rementOrdered By: Hao Vega on 12-03-2023 Specific gravity (U) [Rel density] 1.010 1.002-1.030 [facility] Urine urobilinogen measureme ntOrdered By: Hao Vega on 12-03-2023 Urobilinogen Ql (U) Normal mg/dl Normal [facility] Absolute lymphocyte countOrd ered By: Anoop Esparza on 11-20-2023 Lymphocytes Auto (Unsp spec) [#/Vol] 1.13 10*3/uL 0.83-4.51 [facility] Automated lymphocyte count a s percentage of total leukocytesOrdered By: Anoop Esparza on 11-20-2023 Lymphocytes/100 WBC Auto (Unsp spec) 13.6 % 19-41 [facility] Basophil percentageOrdered B y: Shalini Ferrari on 11-20-2023 Basophil percentage 1.85 ng/mL 0.0-4.0 [facility] Comment on above: This test was perfor med using the TPSA assay method for the[facility] chemistry system. Values obtained with differentassay methods cannot be used interchangably.When changing PSA assays in the course of monitoring apatient, additional sequential testing should be carriedout to confirm baseline values. Basophil percentageOrdered B y: Anoop Esparza on 11-20-2023 Basophil percentage 9.9 g/dL 13.0-16.5 [facility] Basophil percentage 96 mg/dL 74-106 [facility] Basophil percentage 7.5 g/dL 6.4-8.2 [facility] Basophil percentage 0.50 mg/dL 0.20-1.00 [facility] Basophil percentage 134 mmol/L 136-145 [facility] Basophil percentage 5.1 mmol/L 3.5-5.1 [facility] Basophil percentage 105 mmol/L 98-107 [facility] Basophils (Bld) [#/Vol] 8.3 10*3/uL 4.4-11.0 [facility] Basophils (Bld) [#/Vol] 6.1 10*3/uL 2.0-7.7 [facility] Basophils/100 WBC (Bld) 1.0 % 0-1 [facility] Basophils/100 WBC (Bld) 73.5 % 47-70 [facility] Basophils/100 WBC (Bld) 8.4 % 0-10 [facility] Basophils/100 WBC (Bld) 2.5 % 0-5 [facility] Bilirubin [Mass/Vol] 0.50 mg/dL 0.20-1.00 [facility] Comment on above: For patients on eltr ombopag therapy, use of Dimension Arnett TBIL is not recommended. Chloride [Moles/Vol] 105 mmol/L 98-107 [facility] Eosinophils/100 WBC (Bld) 2.5 % 0-5 [facility] Glucose [Mass/Vol] 96 mg/dL 74-106 [facility] Hemoglobin (Bld) [Mass/Vol] 9.9 g/dL 13.0-16.5 [facility] Monocytes/100 WBC (Bld) 8.4 % 0-10 [facility] Neutrophils (Bld) [#/Vol] 6.1 10*3/uL 2.0-7.7 [facility] Neutrophils/100 WBC (Bld) 73.5 % 47-70 [facility] Potassium [Moles/Vol] 5.1 mmol/L 3.5-5.1 [facility] Protein [Mass/Vol] 7.5 g/dL 6.4-8.2 [facility] Sodium [Moles/Vol] 134 mmol/L 136-145 [facility] WBC (Bld) [#/Vol] 8.3 10*3/uL 4.4-11.0 [facility] Determination of erythrocyte mean corpuscular volume (MCV)Ordered By: Anoop Esparza on 11-20-2023 MCV (RBC) [Entitic vol] 104.6 fL 80-94 [facility] Erythrocyte distribution wid th ratioOrdered By: Anoop Esparza on 11-20-2023 Erythrocyte distribution width (RBC) [Ratio] 13.3 % 11.6-14.6 [facility] Erythrocyte distribution wid th standard deviationOrdered By: Anoop Esparza on 11-20-2023 Erythrocyte distribution width (RBC) [Entitic vol] 51.0 fL 35.1-43.9 [facility] Hematocrit Auto (Bld) [Volum e fraction]Ordered By: Anoop Esparza on 11-20-2023 Hematocrit (Bld) [Volume fraction] 32.0 % 40-54 [facility] Immature granulocytes/100 WB C Auto (Bld)Ordered By: Anoop Esparza on 11-20-2023 Immature granulocytes/100 WBC (Bld) 1.000 % 0.0-0.9 [facility] Comment on above: IG% - Immature Granu locytes (promyelocytes, myelocytes and metamyelocytes) > 1% indicates that a LEFT SHIFT is Present. Laboratory - Chemistry and C hemistry - challengeOrdered By: Anoop Esparza on 11-20-2023 Albumin/Globulin [Mass ratio] 0.7 {ratio} 0.9-2.4 [facility] ALP [Catalytic activity/Vol] 81 U/L 45-117 [facility] ALT [Catalytic activity/Vol] 26 U/L 16-61 [facility] CO2 [Moles/Vol] 28.0 mmol/L 21.0-32.0 [facility] Globulin (S) [Mass/Vol] 4.5 g/dL 2.2-4.2 [facility] Urea nitrogen/Creatinine [Mass ratio] 20.6 mg/mg 10-20 [facility] Laboratory - Hematology and Cell countsOrdered By: Anoop Esparza on 11-20-2023 MCH (RBC) [Entitic mass] 32.4 pg 27.0-32.0 [facility] MCHC (RBC) [Mass/Vol] 30.9 g/dL 32-36 [facility] Nucleated RBC/100 WBC (Bld) [Ratio] 0 % 0-5 [facility] Platelet mean volume (Bld) [Entitic vol] 9.6 fL 6.2-12.0 [facility] Platelets (Bld) [#/Vol] 341 10*3/uL 150-450 [facility] No Panel InformationOrdered By: Anoop Esparza on 11-20-2023 Estimated GFR (MDRD) Amer 69 mL/min >60 [facility] Comment on above: GFR Calc Estimated GFR (MDRD) Non-Af Amer 57 mL/min >60 [facility] Comment on above: Non- GFR Calc 32.4 pg 27.0-32.0 [facility] 30.9 g/dL 32-36 [facility] 341 K/mm3 150-450 [facility] 9.6 fl 6.2-12.0 [facility] 0 % 0-5 [facility] 57 mL/min >60 [facility] 69 mL/min >60 [facility] 20.6 RATIO 10-20 [facility] 4.5 g/dL 2.2-4.2 [facility] 0.7 RATIO 0.9-2.4 [facility] 81 U/L 45-117 [facility] 26 U/L 16-61 [facility] 28.0 mmol/L 21.0-32.0 [facility] RBC Auto (Bld) [#/Vol]Ordere d By: Anoop Esparza on 11-20-2023 RBC (Bld) [#/Vol] 3.06 10*6/uL 4.6-6.2 [facility] Serum or plasma calcium fernando urement (mass/volume)Ordered By: Anoop Esparza on 11-20-2023 Calcium [Mass/Vol] 9.9 mg/dL 8.5-10.1 [facility] Serum or plasma creatinine m easurement (mass/volume)Ordered By: Anoop Esparza on 11-20-2023 Creatinine [Mass/Vol] 1.31 mg/dL 0.70-1.30 [facility] Comment on above: The validity of the calculated GFR & GFRAA in patients over 70 years has not been determined. Clinical correlation is essential. Serum or plasma urea nitroge n measurement (mass/volume)Ordered By: Anoop Esparza on 11-20-2023 Urea nitrogen [Mass/Vol] 27 mg/dL 7-18 [facility] Thin prep Papanicolaou smear with manual screeningOrdered By: Anoop Esparza on 11-20-2023 Thin prep Papanicolaou smear with manual screening 3.0 g/dL 3.2-5.0 [facility] Thin prep Papanicolaou smear with manual screening 23 U/L 15-37 [facility] Thin prep Papanicolaou smear with manual screening 1 5-15 [facility] Basophil percentageOrdered B y: Shalini Ferrari on 04-29-2023 Basophil percentage 1.5 mg/dL 0.70-1.30 [facility] Creatinine [Mass/Vol] 1.5 mg/dL 0.70-1.30 [facility] Laboratory - Chemistry and C hemistry - challengeOrdered By: Shalini Ferrari on 04-29-2023 GFR/1.73 sq M.predicted among non-blacks MDRD (S/P/Bld) [Vol rate/Area] 50.0000 mL/min/{1.73_m2} >60 [facility] No Panel InformationOrdered By: Shalini Ferrari on 04-29-2023 50.0000 mL/min >60 [facility] LABORATORYOrdered By: Gala López on 01-30-2023 Basophil, Absolute 0.0 103/mcL Invalid Interpretation Code 0.0 - 0.2 10^3/mcL AO Workflow SS Basophils/100 WBC (Bld) 0.4 % Invalid Interpretation Code 0.0 - 2.5 % AO Workflow SS Eosinophil, Absolute 0.3 103/mcL Invalid Interpretation Code 0.0 - 0.4 10^3/mcL AO Workflow SS Eosinophils/100 WBC (Bld) 2.9 % Invalid Interpretation Code 0.0 - 7.0 % AO Workflow SS Erythrocyte distribution width (RBC) [Ratio] 13.7 % Invalid Interpretation Code 11.5 - 14.5 % AO Workflow SS Hematocrit (Bld) [Volume fraction] 27.6 % Invalid Interpretation Code 42.0 - 52.0 % AO Workflow SS Hemoglobin (Bld) [Mass/Vol] 9.4 G/dL Invalid Interpretation Code 14.0 - 18.0 G/dL AO Workflow SS Lymphocyte, Absolute 0.9 103/mcL Invalid Interpretation Code 0.8 - 3.9 10^3/mcL AO Workflow SS Lymphocytes/100 WBC (Bld) 8.1 % Invalid Interpretation Code 10.0 - 50.0 % AO Workflow SS MCH (RBC) [Entitic mass] 33.3 pg Invalid Interpretation Code 27.0 - 31.2 pg AO Workflow SS MCHC 34.1 G/dL Invalid Interpretation Code 31.8 - 35.4 G/dL AO Workflow SS MCV (RBC) [Entitic vol] 97.8 fL Invalid Interpretation Code 80.0 - 94.0 fL AO Workflow SS Monocyte, Absolute 0.4 103/mcL Invalid Interpretation Code 0.2 - 1.0 10^3/mcL AO Workflow SS Monocytes/100 WBC (Bld) 4.0 % Invalid Interpretation Code 1.7 - 13.0 % AO Workflow SS Neutrophil, Absolute 9.2 103/mcL Invalid Interpretation Code 2.9 - 6.2 10^3/mcL AO Workflow SS Neutrophils/100 WBC (Bld) 84.6 % Invalid Interpretation Code 37.0 - 80.0 % AO Workflow SS Platelet mean volume (Bld) [Entitic vol] 7.3 fL Invalid Interpretation Code 7.4 - 10.4 fL AO Workflow SS Platelets (Bld) [#/Vol] 354 103/mcL Invalid Interpretation Code 130 - 400 10^3/mcL AO Workflow SS RBC (Bld) [#/Vol] 2.83 106/mcL Invalid Interpretation Code 4.04 - 6.13 10^6/mcL AO Workflow SS WBC (Bld) [#/Vol] 10.8 103/mcL Invalid Interpretation Code 4.6 - 10.8 10^3/mcL AO Workflow SS LABORATORYOrdered By: SYSTEM SYSTEM on 01-30-2023 Calcium [Mass/Vol] 8.6 mg/dL Invalid Interpretation Code 8.4 - 10.2 mg/dL AO ADM SS Chloride [Moles/Vol] 107 mmol/L Invalid Interpretation Code 98 - 107 mmol/L AO ADM SS CO2 [Moles/Vol] 30 mmol/L Invalid Interpretation Code 23 - 31 mmol/L AO ADM SS Creatinine [Mass/Vol] 0.92 mg/dL Invalid Interpretation Code 0.70 - 1.30 mg/dL AO ADM SS Electrolyte Balance 7.0 mEq/L Invalid Interpretation Code 4.0 - 15.0 mEq/L AO ADM SS GFR/1.73 sq M.predicted among blacks MDRD (S/P/Bld) [Vol rate/Area] 98 ml/min/1.73sqm Invalid Interpretation Code AO Chemistry S GFR/1.73 sq M.predicted among non-blacks MDRD (S/P/Bld) [Vol rate/Area] 81 ml/min/1.73sqm Invalid Interpretation Code AO Chemistry S Glucose [Mass/Vol] 88 mg/dL Invalid Interpretation Code 83 - 110 mg/dL AO ADM SS Magnesium [Mass/Vol] 2.0 mg/dL Invalid Interpretation Code 1.8 - 2.4 mg/dL AO ADM SS Potassium [Moles/Vol] 3.6 mmol/L Invalid Interpretation Code 3.5 - 5.1 mmol/L AO ADM SS Sodium [Moles/Vol] 144 mmol/L Invalid Interpretation Code 136 - 145 mmol/L AO ADM SS Urea nitrogen [Mass/Vol] 9 mg/dL Invalid Interpretation Code 7 - 18 mg/dL AO ADM SS Urea nitrogen/Creatinine [Mass ratio] 10 ratio Invalid Interpretation Code 7 - 27 ratio AO ADM SS LABORATORYOrdered By: SYSTEM SYSTEM on 01-29-2023 Lactate [Moles/Vol] 0.6 mmol/L Invalid Interpretation Code 0.4 - 2.0 mmol/L AO ADM SS Calcium [Mass/Vol] 8.7 mg/dL Invalid Interpretation Code 8.4 - 10.2 mg/dL AO ADM SS Chloride [Moles/Vol] 106 mmol/L Invalid Interpretation Code 98 - 107 mmol/L AO ADM SS CO2 [Moles/Vol] 31 mmol/L Invalid Interpretation Code 23 - 31 mmol/L AO ADM SS Creatinine [Mass/Vol] 1.01 mg/dL Invalid Interpretation Code 0.70 - 1.30 mg/dL AO ADM SS Electrolyte Balance 5.0 mEq/L Invalid Interpretation Code 4.0 - 15.0 mEq/L AO ADM SS GFR/1.73 sq M.predicted among blacks MDRD (S/P/Bld) [Vol rate/Area] 88 ml/min/1.73sqm Invalid Interpretation Code AO Chemistry S GFR/1.73 sq M.predicted among non-blacks MDRD (S/P/Bld) [Vol rate/Area] 73 ml/min/1.73sqm Invalid Interpretation Code AO Chemistry S Glucose [Mass/Vol] 88 mg/dL Invalid Interpretation Code 83 - 110 mg/dL AO ADM SS Magnesium [Mass/Vol] 1.6 mg/dL Invalid Interpretation Code 1.8 - 2.4 mg/dL AO ADM SS Potassium [Moles/Vol] 4.2 mmol/L Invalid Interpretation Code 3.5 - 5.1 mmol/L AO ADM SS Sodium [Moles/Vol] 142 mmol/L Invalid Interpretation Code 136 - 145 mmol/L AO ADM SS Urea nitrogen [Mass/Vol] 16 mg/dL Invalid Interpretation Code 7 - 18 mg/dL AO ADM SS Urea nitrogen/Creatinine [Mass ratio] 16 ratio Invalid Interpretation Code 7 - 27 ratio AO ADM SS LABORATORYOrdered By: Jessica Chavez on 01-29-2023 Bands 3.0 1 Invalid Interpretation Code 0.0 - 5.0 % AO Workflow SS Basophil %, Manual 0.0 1 Invalid Interpretation Code 0.0 - 2.5 % AO Workflow SS Basophil, Abs Manual 0.0 103/mcL Invalid Interpretation Code 0.0 - 0.2 10^3/mcL AO Workflow SS Basophilic stippling LM Ql (Bld) 1+ *NA* (01/29/23 5:26 AM) Invalid Interpretation Code AO Workflow SS Eosinophil %, Manual 0.0 1 Invalid Interpretation Code 0.0 - 7.0 % AO Workflow SS Eosinophils (Bld) [#/Vol] 0.0 103/mcL Invalid Interpretation Code 0.0 - 0.4 10^3/mcL AO Workflow SS Erythrocyte distribution width (RBC) [Ratio] 13.5 % Invalid Interpretation Code 11.5 - 14.5 % AO Hematology S Hematocrit (Bld) [Volume fraction] 27.3 % Invalid Interpretation Code 42.0 - 52.0 % AO Hematology S Hemoglobin (Bld) [Mass/Vol] 9.2 G/dL Invalid Interpretation Code 14.0 - 18.0 G/dL AO Hematology S Lymphocyte %, Manual 3.0 1 Invalid Interpretation Code 10.0 - 50.0 % AO Workflow SS Lymphocyte, Abs Manual 0.6 103/mcL Invalid Interpretation Code 0.8 - 3.9 10^3/mcL AO Workflow SS MCH (RBC) [Entitic mass] 32.9 pg Invalid Interpretation Code 27.0 - 31.2 pg AO Hematology S MCHC 33.7 G/dL Invalid Interpretation Code 31.8 - 35.4 G/dL AO Hematology S MCV (RBC) [Entitic vol] 97.6 fL Invalid Interpretation Code 80.0 - 94.0 fL AO Hematology S Monocyte %, Manual 1.0 1 Invalid Interpretation Code 1.7 - 13.0 % AO Workflow SS Monocyte, Abs Manual 0.2 103/mcL Invalid Interpretation Code 0.2 - 1.0 10^3/mcL AO Workflow SS Neutrophil %, Manual 93.0 1 Invalid Interpretation Code 37.0 - 80.0 % AO Workflow SS Neutrophil, Abs Manual 17.8 103/mcL Invalid Interpretation Code 2.9 - 6.2 10^3/mcL AO Workflow SS Nucleated RBC 0.0 /100 WBC Invalid Interpretation Code AO Workflow SS Ovalocytes LM Ql (Bld) 1+ *NA* (01/29/23 5:26 AM) Invalid Interpretation Code AO Workflow SS Platelet Estimate Normal *NA* (01/29/23 5:26 AM) Invalid Interpretation Code AO Workflow SS Platelet mean volume (Bld) [Entitic vol] 7.2 fL Invalid Interpretation Code 7.4 - 10.4 fL AO Hematology S Platelets (Bld) [#/Vol] 346 103/mcL Invalid Interpretation Code 130 - 400 10^3/mcL AO Hematology S Poikilocytosis LM Ql (Bld) 1+ *NA* (01/29/23 5:26 AM) Invalid Interpretation Code AO Workflow SS Polychromasia LM Ql (Bld) 1+ *NA* (01/29/23 5:26 AM) Invalid Interpretation Code AO Workflow SS RBC (Bld) [#/Vol] 2.80 106/mcL Invalid Interpretation Code 4.04 - 6.13 10^6/mcL AO Hematology S Tear Cell 1+ *NA* (01/29/23 5:26 AM) Invalid Interpretation Code AO Workflow SS Toxic Gran 1+ *NA* (01/29/23 5:26 AM) Invalid Interpretation Code AO Workflow SS WBC (Bld) [#/Vol] 19.2 103/mcL Invalid Interpretation Code 4.6 - 10.8 10^3/mcL AO Hematology S LABORATORYOrdered By: Bonnie Knott on 01-28-2023 Amphetamines Screen Ql (U) Negative (01/28/23 3:13 PM) Invalid Interpretation Code AO Manual Urine SS Barbiturates Screen Ql (U) Negative (01/28/23 3:13 PM) Invalid Interpretation Code AO Manual Urine SS Benzodiazepines Ql (U) Negative (01/28/23 3:13 PM) Invalid Interpretation Code AO Manual Urine SS Benzoylecgonine Screen Ql (U) Negative (01/28/23 3:13 PM) Invalid Interpretation Code AO Manual Urine SS Cannabinoids tested Screen Nom (U) Negative (01/28/23 3:13 PM) Invalid Interpretation Code AO Manual Urine SS Methadone Screen Ql (U) Negative (01/28/23 3:13 PM) Invalid Interpretation Code AO Manual Urine SS Opiates Screen Ql (U) Positive (01/28/23 3:13 PM) Invalid Interpretation Code AO Manual Urine SS Phencyclidine Ql (U) Positive (01/28/23 3:13 PM) Invalid Interpretation Code AO Manual Urine SS Tricyclic antidepressants Screen Ql (U) Positive (01/28/23 3:13 PM) Invalid Interpretation Code AO Manual Urine SS Ethanol [Mass/Vol] mg/dL Invalid Interpretation Code 0 - 3 mg/dL AO Chemistry S LABORATORYOrdered By: Mihaela Slater on 01-28-2023 Appearance (U) Clear (01/28/23 3:13 PM) Invalid Interpretation Code Clear AO Auto Urine SS Bacteria LM.HPF (Urine sed) [#/Area] Trace /HPF Invalid Interpretation Code AO Auto Urine SS Bilirubin Ql (U) Negative (01/28/23 3:13 PM) Invalid Interpretation Code Negative AO Auto Urine SS Color (U) Yellow (01/28/23 3:13 PM) Invalid Interpretation Code AO Auto Urine SS Glucose Test strip (U) [Mass/Vol] Negative Invalid Interpretation Code Negativemg/d L AO Auto Urine SS Hemoglobin Auto test strip (U) [Mass/Vol] Large *ABN* (01/28/23 3:13 PM) Invalid Interpretation Code Negative AO Auto Urine SS Ketones Ql (U) Negative Invalid Interpretation Code Negativemg/d L AO Auto Urine SS UA Hyal Cast 0-5 /LPF Invalid Interpretation Code AO Auto Urine SS UA Leuk Est Negative (01/28/23 3:13 PM) Invalid Interpretation Code Negative AO Auto Urine SS UA Nitrite Negative (01/28/23 3:13 PM) Invalid Interpretation Code Negative AO Auto Urine SS UA pH 6.5 (01/28/23 3:13 PM) Invalid Interpretation Code 5.0 - 8.0 AO Auto Urine SS UA Protein Trace mg/dL Invalid Interpretation Code Negativemg/d L AO Auto Urine SS UA RBC LOADED /HPF Invalid Interpretation Code None Seen/HPF AO Auto Urine SS UA Spec Grav 1.015 (01/28/23 3:13 PM) Invalid Interpretation Code 1.015-1.025 AO Auto Urine SS UA Specimen Type Clean Catch (01/28/23 3:13 PM) Invalid Interpretation Code AO Auto Urine SS UA Squam Epithelial 0-5 /HPF Invalid Interpretation Code None Seen/HPF AO Auto Urine SS UA Urobilinogen 0.2 E.U./dL Invalid Interpretation Code 0.2-1.0E.U./ dL AO Auto Urine SS WBC LM.HPF (Urine sed) [#/Area] None Seen /HPF Invalid Interpretation Code None Seen/HPF AO Auto Urine SS aPTT Coag (PPP) [Time] 30.8 s Invalid Interpretation Code 25.0 - 35.0 seconds AO HemoHub SS Heparin dose (APTT) None Invalid Interpretation Code AO HemoHub SS INR Coag (PPP) [Relative time] 1.2 {INR} Invalid Interpretation Code AO HemoHub SS PT Coag (PPP) [Time] 13.4 s Invalid Interpretation Code 9.1 - 14.2 seconds AO HemoHub SS LABORATORYOrdered By: SYSTEM SYSTEM on 01-28-2023 Lactate [Moles/Vol] 0.9 mmol/L Invalid Interpretation Code 0.4 - 2.0 mmol/L AO ADM SS Acetaminophen [Mass/Vol] 3.6 ug/mL Invalid Interpretation Code 10.0 - 30.0 mcg/mL AO ADM SS Albumin BCP dye [Mass/Vol] 3.0 G/dL Invalid Interpretation Code 3.4 - 4.8 G/dL AO ADM SS Albumin/Globulin [Mass ratio] 0.8 {ratio} Invalid Interpretation Code 1.1 - 2.5 ratio AO ADM SS ALP [Catalytic activity/Vol] 87 U/L Invalid Interpretation Code 40 - 135 U/L AO ADM SS ALT With P-5'-P [Catalytic activity/Vol] 21 U/L Invalid Interpretation Code 16 - 63 U/L AO ADM SS Ammonia (P) [Mass/Vol] umol/l Invalid Interpretation Code 11 - 32 umol/l AO ADM SS AST With P-5'-P [Catalytic activity/Vol] 21 U/L Invalid Interpretation Code 10 - 40 U/L AO ADM SS Bilirubin [Mass/Vol] 0.5 mg/dL Invalid Interpretation Code 0.2 - 1.0 mg/dL AO ADM SS Calcium [Mass/Vol] 9.3 mg/dL Invalid Interpretation Code 8.4 - 10.2 mg/dL AO ADM SS Chloride [Moles/Vol] 101 mmol/L Invalid Interpretation Code 98 - 107 mmol/L AO ADM SS CK [Catalytic activity/Vol] 60 U/L Invalid Interpretation Code 39 - 308 U/L AO ADM SS CO2 [Moles/Vol] 31 mmol/L Invalid Interpretation Code 23 - 31 mmol/L AO ADM SS Creatinine [Mass/Vol] 1.34 mg/dL Invalid Interpretation Code 0.70 - 1.30 mg/dL AO ADM SS Electrolyte Balance 7.0 mEq/L Invalid Interpretation Code 4.0 - 15.0 mEq/L AO ADM SS GFR/1.73 sq M.predicted among blacks MDRD (S/P/Bld) [Vol rate/Area] 64 ml/min/1.73sqm Invalid Interpretation Code AO Chemistry S GFR/1.73 sq M.predicted among non-blacks MDRD (S/P/Bld) [Vol rate/Area] 52 ml/min/1.73sqm Invalid Interpretation Code AO Chemistry S Globulin 3.6 G/dL Invalid Interpretation Code AO ADM SS Glucose [Mass/Vol] 88 mg/dL Invalid Interpretation Code 83 - 110 mg/dL AO ADM SS Potassium [Moles/Vol] 3.7 mmol/L Invalid Interpretation Code 3.5 - 5.1 mmol/L AO ADM SS Protein [Mass/Vol] 6.6 G/dL Invalid Interpretation Code 6.4 - 8.2 G/dL AO ADM SS Salicylates [Mass/Vol] 0.3 mg/dL Invalid Interpretation Code 2.8 - 20.0 mg/dL AO ADM SS Sodium [Moles/Vol] 139 mmol/L Invalid Interpretation Code 136 - 145 mmol/L AO ADM SS Troponin I.cardiac DL <= 0.01 ng/mL [Mass/Vol] 13.7 ng/L Invalid Interpretation Code 0.0 - 76.2 ng/L AO ADM SS Urea nitrogen [Mass/Vol] 23 mg/dL Invalid Interpretation Code 7 - 18 mg/dL AO ADM SS Urea nitrogen/Creatinine [Mass ratio] 17 ratio Invalid Interpretation Code 7 - 27 ratio AO ADM SS LABORATORYOrdered By: Carolynn Mays on 01-28-2023 Basophil, Absolute 0.0 103/mcL Invalid Interpretation Code 0.0 - 0.2 10^3/mcL AO Workflow SS Basophils/100 WBC (Bld) 0.3 % Invalid Interpretation Code 0.0 - 2.5 % AO Workflow SS Eosinophil, Absolute 0.2 103/mcL Invalid Interpretation Code 0.0 - 0.4 10^3/mcL AO Workflow SS Eosinophils/100 WBC (Bld) 1.5 % Invalid Interpretation Code 0.0 - 7.0 % AO Workflow SS Erythrocyte distribution width (RBC) [Ratio] 13.7 % Invalid Interpretation Code 11.5 - 14.5 % AO Workflow SS Hematocrit (Bld) [Volume fraction] 32.0 % Invalid Interpretation Code 42.0 - 52.0 % AO Workflow SS Hemoglobin (Bld) [Mass/Vol] 10.7 G/dL Invalid Interpretation Code 14.0 - 18.0 G/dL AO Workflow SS Lymphocyte, Absolute 0.9 103/mcL Invalid Interpretation Code 0.8 - 3.9 10^3/mcL AO Workflow SS Lymphocytes/100 WBC (Bld) 6.5 % Invalid Interpretation Code 10.0 - 50.0 % AO Workflow SS MCH (RBC) [Entitic mass] 33.0 pg Invalid Interpretation Code 27.0 - 31.2 pg AO Workflow SS MCHC 33.4 G/dL Invalid Interpretation Code 31.8 - 35.4 G/dL AO Workflow SS MCV (RBC) [Entitic vol] 98.8 fL Invalid Interpretation Code 80.0 - 94.0 fL AO Workflow SS Monocyte distribution width Auto (Bld) [Entitic vol] 20.78 Invalid Interpretation Code 0.00 - 20.00 AO Workflow SS Comment on above: Result Comment: For adults in ED, MDW>20.0 may be associated with a higher risk of sepsis during the first 12hrs of hospital admission Monocyte, Absolute 0.6 103/mcL Invalid Interpretation Code 0.2 - 1.0 10^3/mcL AO Workflow SS Monocytes/100 WBC (Bld) 4.0 % Invalid Interpretation Code 1.7 - 13.0 % AO Workflow SS Neutrophil, Absolute 12.4 103/mcL Invalid Interpretation Code 2.9 - 6.2 10^3/mcL AO Workflow SS Neutrophils/100 WBC (Bld) 87.7 % Invalid Interpretation Code 37.0 - 80.0 % AO Workflow SS Platelet mean volume (Bld) [Entitic vol] 7.1 fL Invalid Interpretation Code 7.4 - 10.4 fL AO Workflow SS Platelets (Bld) [#/Vol] 417 103/mcL Invalid Interpretation Code 130 - 400 10^3/mcL AO Workflow SS RBC (Bld) [#/Vol] 3.24 106/mcL Invalid Interpretation Code 4.04 - 6.13 10^6/mcL AO Workflow SS WBC (Bld) [#/Vol] 14.1 103/mcL Invalid Interpretation Code 4.6 - 10.8 10^3/mcL AO Workflow SS No Panel Informationon 01-28 Microscopic examination of blood, culture Culture has been received in lab and is no growth to date. Routine cultures are held for 5 days. [facility] Work Phone: Culture Urine No growth at 48 hours. [facility] Work Phone: Absolute lymphocyte countOrd ered By: Shalini Ferrari on 01-24-2023 Lymphocytes Auto (Unsp spec) [#/Vol] 1.24 10*3/uL 0.83-4.51 [facility] Basophil percentageOrdered B y: Shalini Ferrari on 01-24-2023 Basophil percentage 6.9 g/dL 6.4-8.2 [facility] Basophil percentage 0.60 mg/dL 0.20-1.00 [facility] Basophils (Bld) [#/Vol] 11.1 10*3/uL 4.4-11.0 [facility] Basophils (Bld) [#/Vol] 8.6 10*3/uL 2.0-7.7 [facility] Basophils/100 WBC (Bld) 77.8 % 47-70 [facility] Basophils/100 WBC (Bld) 3.2 % 0-5 [facility] Basophils/100 WBC (Bld) 0.6 % 0-1 [facility] Blood erythrocytes count (nu mber/volume)Ordered By: Shalini Ferrari on 01-24-2023 RBC (Bld) [#/Vol] 3.91 10*6/uL 4.6-6.2 [facility] Blood hemoglobin measurement (mass/volume)Ordered By: Shalini Ferrari on 01-24-2023 Hemoglobin (Bld) [Mass/Vol] 13.0 g/dL 13.0-16.5 [facility] Blood lymphocytes/100 leukoc ytesOrdered By: Shalini Ferrari on 01-24-2023 Lymphocytes/100 WBC (Bld) 11.2 % 19-41 [facility] Blood monocytes/100 leukocyt esOrdered By: Shalini Ferrari on 01-24-2023 Monocytes/100 WBC (Bld) 6.2 % 0-10 [facility] Blood platelet mean volumeOr dered By: Shalini Ferrari on 01-24-2023 Platelet mean volume (Bld) [Entitic vol] 9.4 fL 6.2-12.0 [facility] Determination of erythrocyte mean corpuscular volume (MCV)Ordered By: Shalini Ferrari on 01-24-2023 MCV (RBC) [Entitic vol] 102.3 fL 80-94 [facility] Direct bilirubinOrdered By: Shalini Ferrari on 01-24-2023 Bilirubin.direct [Mass/Vol] 0.17 mg/dL 0.00-0.30 [facility] Hematocrit Auto (Bld) [Volum e fraction]Ordered By: Shalini Ferrari on 01-24-2023 Hematocrit (Bld) [Volume fraction] 40.0 % 40-54 [facility] MCHC Auto (RBC) [Mass/Vol]Or dered By: Shalini Ferrari on 01-24-2023 MCHC (RBC) [Mass/Vol] 32.5 g/dL 32-36 [facility] No Panel InformationOrdered By: Shalini Ferrari on 01-24-2023 33.2 pg 27.0-32.0 [facility] 13.2 % 11.6-14.6 [facility] 48.9 fl 35.1-43.9 [facility] 1.000 % 0.0-0.9 [facility] 0 % 0-5 [facility] 3.8 g/dL 2.2-4.2 [facility] 82 U/L 45-117 [facility] 25 U/L 16-61 [facility] Platelets bldOrdered By: Fabricio Ferrari on 01-24-2023 Platelets (Bld) [#/Vol] 469 10*3/uL 150-450 [facility] Serum or plasma albumin fernando urement (mass/volume)Ordered By: Shalini Ferrari on 01-24-2023 Albumin [Mass/Vol] 3.1 g/dL 3.2-5.0 [facility] Thin prep Papanicolaou smear with manual screeningOrdered By: Shalini Ferrari on 01-24-2023 Thin prep Papanicolaou smear with manual screening 20 U/L 15-37 [facility] Absolute lymphocyte countOrd ered By: Dr. Martinez on 01-16-2023 Lymphocytes Auto (Unsp spec) [#/Vol] 0.62 10*3/uL 0.83-4.51 [facility] Basophil percentageOrdered B y: Trent Martinez on 01-16-2023 Basophil percentage 112 mg/dL 74-106 [facility] Basophil percentage 141 mmol/L 136-145 [facility] Basophil percentage 3.5 mmol/L 3.5-5.1 [facility] Basophil percentage 109 mmol/L 98-107 [facility] Basophils (Bld) [#/Vol] 15.5 10*3/uL 4.4-11.0 [facility] Basophils (Bld) [#/Vol] 13.6 10*3/uL 2.0-7.7 [facility] Basophils/100 WBC (Bld) 87.8 % 47-70 [facility] Basophils/100 WBC (Bld) 0.1 % 0-5 [facility] Basophil percentageOrdered B y: Dr. Martinez on 01-16-2023 Basophils/100 WBC (Bld) 0.3 % 0-1 [facility] Chloride [Moles/Vol] 109 mmol/L 98-107 [facility] Eosinophils/100 WBC (Bld) 0.1 % 0-5 [facility] Glucose [Mass/Vol] 112 mg/dL 74-106 [facility] Comment on above: Fasting Glucose resu lt from 100 to 125 mg/dL suggests IMPAIRED HOMEOSTASIS per A.D.A. criteria. Neutrophils (Bld) [#/Vol] 13.6 10*3/uL 2.0-7.7 [facility] Neutrophils/100 WBC (Bld) 87.8 % 47-70 [facility] Potassium [Moles/Vol] 3.5 mmol/L 3.5-5.1 [facility] Sodium [Moles/Vol] 141 mmol/L 136-145 [facility] WBC (Bld) [#/Vol] 15.5 10*3/uL 4.4-11.0 [facility] Blood erythrocytes count (nu mber/volume)Ordered By: Dr. Martinez on 01-16-2023 RBC (Bld) [#/Vol] 3.45 10*6/uL 4.6-6.2 [facility] Blood hemoglobin measurement (mass/volume)Ordered By: Dr. Martinez on 01-16-2023 Hemoglobin (Bld) [Mass/Vol] 11.4 g/dL 13.0-16.5 [facility] Blood lymphocytes/100 leukoc ytesOrdered By: Dr. Martinez on 01-16-2023 Lymphocytes/100 WBC (Bld) 4.0 % 19-41 [facility] Blood monocytes/100 leukocyt esOrdered By: Dr. Martinez on 01-16-2023 Monocytes/100 WBC (Bld) 7.5 % 0-10 [facility] Blood platelet mean volumeOr dered By: Dr. Martinez on 01-16-2023 Platelet mean volume (Bld) [Entitic vol] 9.6 fL 6.2-12.0 [facility] Clostridium difficile detect ion by polymerase chain reactionOrdered By: Dr. Clancy on 01-16-2023 C. difficile DNA LAUREN+probe Ql (Unsp spec) [facility] Determination of erythrocyte mean corpuscular volume (MCV)Ordered By: Dr. Martinez on 01-16-2023 MCV (RBC) [Entitic vol] 98.6 fL 80-94 [facility] EP PanelOrdered By: Dr. Joyce briggs on 01-16-2023 Gastrointestinal pathogens panel LAUREN+probe (Stl) [facility] Hematocrit Auto (Bld) [Volum e fraction]Ordered By: Dr. Martinez on 01-16-2023 Hematocrit (Bld) [Volume fraction] 34.0 % 40-54 [facility] Laboratory - Chemistry and C hemistry - challengeOrdered By: Dr. Martinez on 01-16-2023 CO2 [Moles/Vol] 25.0 mmol/L 21.0-32.0 [facility] Urea nitrogen/Creatinine [Mass ratio] 11.0 mg/mg 10-20 [facility] Laboratory - Hematology and Cell countsOrdered By: Dr. Martinez on 01-16-2023 Erythrocyte distribution width (RBC) [Entitic vol] 44.4 fL 35.1-43.9 [facility] Erythrocyte distribution width (RBC) [Ratio] 12.4 % 11.6-14.6 [facility] Immature granulocytes/100 WBC (Bld) 0.300 % 0.0-0.9 [facility] Comment on above: IG% - Immature Granu locytes (promyelocytes, myelocytes and metamyelocytes) > 1% indicates that a LEFT SHIFT is Present. MCH (RBC) [Entitic mass] 33.0 pg 27.0-32.0 [facility] Nucleated RBC/100 WBC (Bld) [Ratio] 0 % 0-5 [facility] MCHC Auto (RBC) [Mass/Vol]Or dered By: Dr. Martinez on 01-16-2023 MCHC (RBC) [Mass/Vol] 33.5 g/dL 32-36 [facility] Macrocytes detectionOrdered By: Dr. Martinez on 01-16-2023 Macrocytes Ql (Bld) 1+ [facility] No Panel InformationOrdered By: Dr. Martinez on 01-16-2023 Estimated Creatinine Clearance Calc 72.91 ml/min [facility] Estimated GFR (MDRD) Amer 136 mL/min >60 [facility] Comment on above: GFR Calc Estimated GFR (MDRD) Non-Af Amer 112 mL/min >60 [facility] Comment on above: Non- GFR Calc No Panel InformationOrdered By: Trent Martinez on 01-16-2023 33.0 pg 27.0-32.0 [facility] 12.4 % 11.6-14.6 [facility] 44.4 fl 35.1-43.9 [facility] 0.300 % 0.0-0.9 [facility] 0 % 0-5 [facility] 112 mL/min >60 [facility] 136 mL/min >60 [facility] 72.91 ml/min [facility] 11.0 RATIO 10-20 [facility] 25.0 mmol/L 21.0-32.0 [facility] Platelets bldOrdered By: Dr. Martinez on 01-16-2023 Platelets (Bld) [#/Vol] 235 10*3/uL 150-450 [facility] Serum or plasma calcium fernando urement (mass/volume)Ordered By: Dr. Martinez on 01-16-2023 Calcium [Mass/Vol] 8.5 mg/dL 8.5-10.1 [facility] Serum or plasma creatinine m easurement (mass/volume)Ordered By: Dr. Martinez on 01-16-2023 Creatinine [Mass/Vol] 0.73 mg/dL 0.70-1.30 [facility] Comment on above: The validity of the calculated GFR & GFRAA in patients over 70 years has not been determined. Clinical correlation is essential. Serum or plasma urea nitroge n measurement (mass/volume)Ordered By: Dr. Martinez on 01-16-2023 Urea nitrogen [Mass/Vol] 8 mg/dL 7-18 [facility] Stool Clostridium difficile detectionOrdered By: Dr. Clancy on 01-16-2023 C. difficile Ql (Stl) [facility] Thin prep Papanicolaou smear with manual screeningOrdered By: Dr. Martinez on 01-16-2023 Thin prep Papanicolaou smear with manual screening 7 5-15 [facility] Basophil percentageOrdered B y: Mariann Clancy on 01-15-2023 Basophil percentage 7.3 g/dL 6.4-8.2 [facility] Basophil percentage 0.50 mg/dL 0.20-1.00 [facility] Basophil percentageOrdered B y: Dr. Clancy on 01-15-2023 Bilirubin [Mass/Vol] 0.50 mg/dL 0.20-1.00 [facility] Comment on above: For patients on eltr ombopag therapy, use of Dimension Arnett TBIL is not recommended. Protein [Mass/Vol] 7.3 g/dL 6.4-8.2 [facility] Clostridium difficile detect ion by polymerase chain reactionOrdered By: Mariann Clancy on 01-15-2023 C. difficile DNA LAUREN+probe Ql (Unsp spec) [facility] [facility] - Chemistry and C hemistry - challengeOrdered By: Dr. Clancy on 01-15-2023 ALP [Catalytic activity/Vol] 73 U/L 45-117 [facility] ALT [Catalytic activity/Vol] 68 U/L 16-61 [facility] Globulin (S) [Mass/Vol] 3.6 g/dL 2.2-4.2 [facility] Magnesium [Mass/Vol] 2.0 mg/dL 1.6-2.6 [facility] Laboratory - Microbiology an d Antimicrobial susceptibilityOrdered By: Dr. Clancy on 01-15-2023 Respiratory pathogens DNA and RNA 12b panel LAUREN+probe (Unsp spec) [facility] No Panel InformationOrdered By: Mariann Clancy on 01-15-2023 3.6 g/dL 2.2-4.2 [facility] 73 U/L 45-117 [facility] 68 U/L 16-61 [facility] 2.0 mg/dL 1.6-2.6 [facility] Serum or plasma albumin fernando urement (mass/volume)Ordered By: Dr. Clancy on 01-15-2023 Albumin [Mass/Vol] 3.7 g/dL 3.2-5.0 [facility] Serum or plasma albumin/glob ulin mass ratioOrdered By: Dr. Clancy on 01-15-2023 Albumin/Globulin [Mass ratio] 1.0 {ratio} 0.9-2.4 [facility] Stool Clostridium difficile detectionOrdered By: Mariann Clancy on 01-15-2023 C. difficile Ql (Stl) [facility] Stool enteric pathogen panel by probe and target amplification methodOrdered By: Mariann Clancy on 01-15-2023 Gastrointestinal pathogens panel LAUREN+probe (Stl) [facility] Thin prep Papanicolaou smear with manual screeningOrdered By: Dr. Clancy on 01-15-2023 Thin prep Papanicolaou smear with manual screening 128 U/L 15-37 [facility] Amorphous sediment detection in urine sediment by light microscopyOrdered By: Dr. Orourke on 01-14-2023 Amorphous sediment LM Ql (Urine sed) 1+ URATE [facility] Basophil percentageOrdered B y: Dr. Orourke on 01-14-2023 Basophil percentage 0 SEEN /hpf 0-5 [facility] Bilirubin Test strip Ql (U)O rdered By: Dr. Orourke on 01-14-2023 Bilirubin Ql (U) Negative Negative [facility] COVID-19 virus antigen assay Ordered By: Dr. Clancy on 01-14-2023 SARS-CoV-2 (COVID-19) Ag IA.rapid Ql (Resp) Detected Not Detect [facility] Comment on above: Normal Reference Ran ge: Not DetectedMethod:(RT-PCR) real-time reverse transcriptase PCRLuminex DRAKE Instrument*The Food and Drug Administration (FDA) has issued an Emergency Use Authorization (EAU) for the DRAKE SARS-CoV-2 Assay for the rapid detection of the virus that causes COVID-19. This test has been validated, but the FDAs independent review of this validation is pending.*Negative results do not preclude infection and should not be used as the sole basis for treatment or patient management. Optimum specimen types and timing for peak viral levels during infections caused by SARS-CoV-2 have not been determined. Collection of multiple specimens from the same patient may be necessary to detect the virus. The possibility of a false negative result should be considered if the patient has clinical presentation or has had recent exposure. Direct bilirubinOrdered By: Dr. Orourke on 01-14-2023 Bilirubin.direct [Mass/Vol] 0.18 mg/dL 0.00-0.30 [facility] Ketones Test strip Ql (U)Ord ered By: Dr. Orourke on 01-14-2023 Ketones Ql (U) Negative Negative [facility] Laboratory - Chemistry and C hemistry - challengeOrdered By: Dr. Orourke on 01-14-2023 Lipase [Catalytic activity/Vol] 170 U/L 73-393 [facility] Laboratory - Microbiology an d Antimicrobial susceptibilityOrdered By: Mariann Clancy on 01-14-2023 Respiratory pathogens DNA and RNA 12b panel LAUREN+probe (Unsp spec) [facility] Mucus LM Ql (Urine sed)Order ed By: Dr. Orourke on 01-14-2023 Mucus Ql (Urine sed) 0 SEEN /hpf [facility] Nitrite Test strip Ql (U)Ord ered By: Dr. Orourke on 01-14-2023 Nitrite Ql (U) Negative Negative [facility] No Panel InformationOrdered By: Joshua Orourke on 01-14-2023 170 U/L 73-393 [facility] Protein Test strip Ql (U)Ord ered By: Dr. Orourke on 01-14-2023 Protein Ql (U) 30 mg/dl Negative [facility] Serum procalcitonin measurem entOrdered By: Dr. Clancy on 01-14-2023 Procalcitonin [Mass/Vol] ng/mL 0.00-0.09 [facility] Comment on above: A procalcitonin (PCT ) level above 2.0 ng/mL on the first day of ICU admission is associated with a high risk for progression to severe sepsis and/or septic shock. A PCT level below 0.5 ng/mL on the first day of ICU admission is associated with a low risk for progression to severe and/or septic shock. Note: Concentrations <0.5 ng/mL do not exclude an infection on account of localized infections (without systemic signs) which can be associated with such low concentrations, or a systemic infection in its initial stages (<6 hours). Furthermore, increased procalcitonin can occur without infection. PCT concentrations between 0.5 and 2.0 ng/mL should be interpreted taking into account the patient's history. It is recommended to retest PCT within 6-24 hours if any concentrations <2 ng/mL are obtained. Squamous epithelial cells de tection in urine sediment by light microscopyOrdered By: Dr. Orourke on 01-14-2023 Epithelial cells.squamous LM Ql (Urine sed) 0-5 SEEN /hpf 0-5 [facility] Urine blood detectionOrdered By: Dr. Orourke on 01-14-2023 RBC Ql (U) 250 /ul Negative [facility] RBC Ql (U) > 100 SEEN /hpf 0-5 [facility] Urine clarityOrdered By: Dr. Orourke on 01-14-2023 Clarity (U) Sl. Cloudy Clear [facility] Urine color determinationOrd ered By: Dr. Orourke on 01-14-2023 Color (U) Yellow Yellow [facility] Urine glucose detectionOrder ed By: Dr. Orourke on 01-14-2023 Glucose Ql (U) Normal mg/dl Normal [facility] Urine leukocyte esterase det ection by dipstickOrdered By: Dr. Orourke on 01-14-2023 Leukocyte esterase Test strip Ql (U) Negative Negative [facility] Urine pHOrdered By: Dr. Tavon panchal on 01-14-2023 pH (U) 5.0 [pH] 5.0 - 8.0 [facility] Urine sediment bacteria coun t by microscopy (number/high power field)Ordered By: Dr. Orourke on 01-14-2023 Bacteria LM.HPF (Urine sed) [#/Area] 0 /[HPF] None Seen [facility] Urine specific gravity measu rementOrdered By: Dr. Orourke on 01-14-2023 Specific gravity (U) [Rel density] 1.010 1.002-1.030 [facility] Urobilinogen Auto test strip Ql (U)Ordered By: Dr. Orourke on 01-14-2023 Urobilinogen Ql (U) Normal mg/dl Normal [facility] Absolute lymphocyte countOrd ered By: Dr. Soto on 01-12-2023 Lymphocytes Auto (Unsp spec) [#/Vol] 0.93 10*3/uL 0.83-4.51 [facility] Basophil percentageOrdered B y: Dr. Soto on 01-12-2023 Basophil percentage 0 SEEN /hpf 0-5 [facility] Basophils/100 WBC (Bld) 0.4 % 0-1 [facility] Bilirubin [Mass/Vol] 0.40 mg/dL 0.20-1.00 [facility] Comment on above: For patients on eltr ombopag therapy, use of Dimension Arnett TBIL is not recommended. Chloride [Moles/Vol] 105 mmol/L 98-107 [facility] Eosinophils/100 WBC (Bld) 1.4 % 0-5 [facility] Glucose [Mass/Vol] 110 mg/dL 74-106 [facility] Comment on above: Fasting Glucose resu lt from 100 to 125 mg/dL suggests IMPAIRED HOMEOSTASIS per A.D.A. criteria. Neutrophils (Bld) [#/Vol] 5.7 10*3/uL 2.0-7.7 [facility] Neutrophils/100 WBC (Bld) 77.5 % 47-70 [facility] Potassium [Moles/Vol] 4.4 mmol/L 3.5-5.1 [facility] Protein [Mass/Vol] 7.6 g/dL 6.4-8.2 [facility] Sodium [Moles/Vol] 136 mmol/L 136-145 [facility] WBC (Bld) [#/Vol] 7.3 10*3/uL 4.4-11.0 [facility] Basophil percentageOrdered B y: Tal Soto on 01-12-2023 Basophil percentage 110 mg/dL 74-106 [facility] Basophil percentage 7.6 g/dL 6.4-8.2 [facility] Basophil percentage 0.40 mg/dL 0.20-1.00 [facility] Basophil percentage 136 mmol/L 136-145 [facility] Basophil percentage 4.4 mmol/L 3.5-5.1 [facility] Basophil percentage 105 mmol/L 98-107 [facility] Basophils (Bld) [#/Vol] 7.3 10*3/uL 4.4-11.0 [facility] Basophils (Bld) [#/Vol] 5.7 10*3/uL 2.0-7.7 [facility] Basophils/100 WBC (Bld) 77.5 % 47-70 [facility] Basophils/100 WBC (Bld) 1.4 % 0-5 [facility] Bilirubin Test strip Ql (U)O rdered By: Dr. Soto on 01-12-2023 Bilirubin Ql (U) Negative Negative [facility] Blood erythrocytes count (nu mber/volume)Ordered By: Dr. Soto on 01-12-2023 RBC (Bld) [#/Vol] 3.79 10*6/uL 4.6-6.2 [facility] Blood hemoglobin measurement (mass/volume)Ordered By: Dr. Soto on 01-12-2023 Hemoglobin (Bld) [Mass/Vol] 12.7 g/dL 13.0-16.5 [facility] Blood lymphocytes/100 leukoc ytesOrdered By: Dr. Soto on 01-12-2023 Lymphocytes/100 WBC (Bld) 12.7 % 19-41 [facility] Blood monocytes/100 leukocyt esOrdered By: Dr. Soto on 01-12-2023 Monocytes/100 WBC (Bld) 7.7 % 0-10 [facility] Blood platelet mean volumeOr dered By: Dr. Soto on 01-12-2023 Platelet mean volume (Bld) [Entitic vol] 9.5 fL 6.2-12.0 [facility] Determination of erythrocyte mean corpuscular volume (MCV)Ordered By: Dr. Soto on 01-12-2023 MCV (RBC) [Entitic vol] 99.2 fL 80-94 [facility] Hematocrit Auto (Bld) [Volum e fraction]Ordered By: Dr. Soto on 01-12-2023 Hematocrit (Bld) [Volume fraction] 37.6 % 40-54 [facility] Ketones Test strip Ql (U)Ord ered By: Dr. Soto on 01-12-2023 Ketones Ql (U) 5 mg/dl Negative [facility] Laboratory - Chemistry and C hemistry - challengeOrdered By: Dr. Soto on 01-12-2023 ALP [Catalytic activity/Vol] 79 U/L 45-117 [facility] ALT [Catalytic activity/Vol] 26 U/L 16-61 [facility] CO2 [Moles/Vol] 26.0 mmol/L 21.0-32.0 [facility] Globulin (S) [Mass/Vol] 3.9 g/dL 2.2-4.2 [facility] Lipase [Catalytic activity/Vol] 115 U/L 73-393 [facility] Magnesium [Mass/Vol] 1.3 mg/dL 1.6-2.6 [facility] Urea nitrogen/Creatinine [Mass ratio] 15.2 mg/mg 10-20 [facility] Laboratory - Hematology and Cell countsOrdered By: Dr. Soto on 01-12-2023 Erythrocyte distribution width (RBC) [Entitic vol] 45.1 fL 35.1-43.9 [facility] Erythrocyte distribution width (RBC) [Ratio] 12.3 % 11.6-14.6 [facility] Immature granulocytes/100 WBC (Bld) 0.300 % 0.0-0.9 [facility] Comment on above: IG% - Immature Granu locytes (promyelocytes, myelocytes and metamyelocytes) > 1% indicates that a LEFT SHIFT is Present. MCH (RBC) [Entitic mass] 33.5 pg 27.0-32.0 [facility] Nucleated RBC/100 WBC (Bld) [Ratio] 0 % 0-5 [facility] MCHC Auto (RBC) [Mass/Vol]Or dered By: Dr. Soto on 01-12-2023 MCHC (RBC) [Mass/Vol] 33.8 g/dL 32-36 [facility] Mucus LM Ql (Urine sed)Order ed By: Dr. Soto on 01-12-2023 Mucus Ql (Urine sed) 0 SEEN /hpf [facility] Nitrite Test strip Ql (U)Ord ered By: Dr. Soto on 01-12-2023 Nitrite Ql (U) Negative Negative [facility] No Panel InformationOrdered By: Dr. Soto on 01-12-2023 Estimated Creatinine Clearance Calc 67.16 ml/min [facility] Estimated GFR (MDRD) Amer 89 mL/min >60 [facility] Comment on above: GFR Calc Estimated GFR (MDRD) Non-Af Amer 74 mL/min >60 [facility] Comment on above: Non- GFR Calc No Panel InformationOrdered By: Tal Soto on 01-12-2023 33.5 pg 27.0-32.0 [facility] 12.3 % 11.6-14.6 [facility] 45.1 fl 35.1-43.9 [facility] 0.300 % 0.0-0.9 [facility] 0 % 0-5 [facility] 74 mL/min >60 [facility] 89 mL/min >60 [facility] 67.16 ml/min [facility] 15.2 RATIO 10-20 [facility] 3.9 g/dL 2.2-4.2 [facility] 115 U/L 73-393 [facility] 79 U/L 45-117 [facility] 26 U/L 16-61 [facility] 1.3 mg/dL 1.6-2.6 [facility] 26.0 mmol/L 21.0-32.0 [facility] Platelets bldOrdered By: Dr. Soto on 01-12-2023 Platelets (Bld) [#/Vol] 224 10*3/uL 150-450 [facility] Protein Test strip Ql (U)Ord ered By: Dr. Soto on 01-12-2023 Protein Ql (U) 15 mg/dl Negative [facility] Serum or plasma albumin fernando urement (mass/volume)Ordered By: Dr. Soto on 01-12-2023 Albumin [Mass/Vol] 3.7 g/dL 3.2-5.0 [facility] Serum or plasma albumin/glob ulin mass ratioOrdered By: Dr. Soto on 01-12-2023 Albumin/Globulin [Mass ratio] 0.9 {ratio} 0.9-2.4 [facility] Serum or plasma calcium fernando urement (mass/volume)Ordered By: Dr. oSto on 01-12-2023 Calcium [Mass/Vol] 11.6 mg/dL 8.5-10.1 [facility] Serum or plasma creatinine m easurement (mass/volume)Ordered By: Dr. Soto on 01-12-2023 Creatinine [Mass/Vol] 1.05 mg/dL 0.70-1.30 [facility] Comment on above: The validity of the calculated GFR & GFRAA in patients over 70 years has not been determined. Clinical correlation is essential. Serum or plasma urea nitroge n measurement (mass/volume)Ordered By: Dr. Soto on 01-12-2023 Urea nitrogen [Mass/Vol] 16 mg/dL 7-18 [facility] Squamous epithelial cells de tection in urine sediment by light microscopyOrdered By: Dr. Soto on 01-12-2023 Epithelial cells.squamous LM Ql (Urine sed) 0-5 SEEN /hpf 0-5 [facility] Thin prep Papanicolaou smear with manual screeningOrdered By: Dr. Soto on 01-12-2023 Thin prep Papanicolaou smear with manual screening 51 U/L 15-37 [facility] Thin prep Papanicolaou smear with manual screening 5 5-15 [facility] Urine blood detectionOrdered By: Dr. Soto on 01-12-2023 RBC Ql (U) 50 /ul Negative [facility] RBC Ql (U) 0-5 SEEN /hpf 0-5 [facility] Urine clarityOrdered By: Dr. Soto on 01-12-2023 Clarity (U) Clear Clear [facility] Urine color determinationOrd ered By: Dr. Soto on 01-12-2023 Color (U) Yellow Yellow [facility] Urine glucose detectionOrder ed By: Dr. Soto on 01-12-2023 Glucose Ql (U) Normal mg/dl Normal [facility] Urine leukocyte esterase det ection by dipstickOrdered By: Dr. Soto on 01-12-2023 Leukocyte esterase Test strip Ql (U) Negative Negative [facility] Urine pHOrdered By: Dr. Humberto baca on 01-12-2023 pH (U) 6.5 [pH] 5.0 - 8.0 [facility] Urine sediment bacteria coun t by microscopy (number/high power field)Ordered By: Dr. Soto on 01-12-2023 Bacteria LM.HPF (Urine sed) [#/Area] 0 /[HPF] None Seen [facility] Urine specific gravity measu rementOrdered By: Dr. Soto on 01-12-2023 Specific gravity (U) [Rel density] 1.010 1.002-1.030 [facility] Urobilinogen Auto test strip Ql (U)Ordered By: Dr. Soto on 01-12-2023 Urobilinogen Ql (U) Normal mg/dl Normal [facility] Absolute lymphocyte counton 07-17-2022 Lymphocytes Auto (Unsp spec) [#/Vol] 1.28 10*3/uL 0.83-4.51 [facility] Work Phone: Basophil percentageon 2021 Basophils/100 WBC (Bld) 1.1 % 0-1 [facility] Work Phone: Bilirubin [Mass/Vol] 0.20 mg/dL 0.20-1.00 [facility] Work Phone: Comment on above: For patients on eltr ombopag therapy, use of Dimension Arnett TBIL is not recommended. Chloride [Moles/Vol] 106 mmol/L 98-107 [facility] Work Phone: Eosinophils/100 WBC (Bld) 9.5 % 0-5 [facility] Work Phone: [phone] Glucose [Mass/Vol] 77 mg/dL 74-106 [facility] Work Phone: [phone] Neutrophils (Bld) [#/Vol] 4.4 10*3/uL 2.0-7.7 [facility] Work Phone: [phone] Neutrophils/100 WBC (Bld) 62.5 % 47-70 [facility] Work Phone: [phone] Potassium [Moles/Vol] 5.0 mmol/L 3.5-5.1 [facility] Work Phone: Protein [Mass/Vol] 7.4 g/dL 6.4-8.2 [facility] Work Phone: Sodium [Moles/Vol] 139 mmol/L 136-145 [facility] Work Phone: WBC (Bld) [#/Vol] 7.1 10*3/uL 4.4-11.0 [facility] Work Phone: Blood erythrocytes count (nu mber/volume)on 07-17-2022 RBC (Bld) [#/Vol] 3.59 10*6/uL 4.6-6.2 [facility] Work Phone: Blood hemoglobin measurement (mass/volume)on 07-17-2022 Hemoglobin (Bld) [Mass/Vol] 12.4 g/dL 13.0-16.5 [facility] Work Phone: [phone] Blood lymphocytes/100 leukoc yteson 07-17-2022 Lymphocytes/100 WBC (Bld) 18.1 % 19-41 [facility] Work Phone: [phone] Blood monocytes/100 leukocyt eson 07-17-2022 Monocytes/100 WBC (Bld) 8.5 % 0-10 [facility] Work Phone: [phone] Blood platelet mean volumeon 07-17-2022 Platelet mean volume (Bld) [Entitic vol] 9.7 fL 6.2-12.0 [facility] Work Phone: Determination of erythrocyte mean corpuscular volume (MCV)on 07-17-2022 MCV (RBC) [Entitic vol] 106.1 fL 80-94 [facility] Work Phone: Hematocrit Auto (Bld) [Volum e fraction]on 07-17-2022 Hematocrit (Bld) [Volume fraction] 38.1 % 40-54 [facility] Work Phone: Laboratory - Chemistry and C hemistry - challengeon 07-17-2022 ALP [Catalytic activity/Vol] 72 U/L 45-117 [facility] Work Phone: ALT [Catalytic activity/Vol] 26 U/L 16-61 [facility] Work Phone: CO2 [Moles/Vol] 28.0 mmol/L 21.0-32.0 [facility] Work Phone: Globulin (S) [Mass/Vol] 3.7 g/dL 2.2-4.2 [facility] Work Phone: Urea nitrogen/Creatinine [Mass ratio] 15.0 mg/mg 10-20 [facility] Work Phone: Laboratory - Hematology and Cell countson 07-17-2022 Erythrocyte distribution width (RBC) [Entitic vol] 51.2 fL 35.1-43.9 [facility] Work Phone: Erythrocyte distribution width (RBC) [Ratio] 12.9 % 11.6-14.6 [facility] Work Phone: Immature granulocytes/100 WBC (Bld) 0.300 % 0.0-0.9 [facility] Work Phone: Comment on above: IG% - Immature Granu locytes (promyelocytes, myelocytes and metamyelocytes) > 1% indicates that a LEFT SHIFT is Present. MCH (RBC) [Entitic mass] 34.5 pg 27.0-32.0 [facility] Work Phone: Nucleated RBC/100 WBC (Bld) [Ratio] 0 % 0-5 [facility] Work Phone: MCHC Auto (RBC) [Mass/Vol]on 07-17-2022 MCHC (RBC) [Mass/Vol] 32.5 g/dL 32-36 [facility] Work Phone: No Panel Informationon 07-17 Estimated GFR (MDRD) Amer 82 mL/min >60 [facility] Work Phone: Comment on above: GFR Calc Estimated GFR (MDRD) Non-Af Amer 68 mL/min >60 [facility] Work Phone: Comment on above: Non- GFR Calc Prostate Specific Antigen Total 1.49 ng/mL 0.0-4.0 [facility] Work Phone: Comment on above: This test was perfor med using the TPSA assay method for [employer] chemistry system. Values obtained with differentassay methods cannot be used interchangably.When changing PSA assays in the course of monitoring apatient, additional sequential testing should be carriedout to confirm baseline values. Platelets bldon 07-17-2022 Platelets (Bld) [#/Vol] 216 10*3/uL 150-450 [facility] Work Phone: Serum or plasma albumin fernando urement (mass/volume)on 07-17-2022 Albumin [Mass/Vol] 3.7 g/dL 3.2-5.0 [facility] Work Phone: Serum or plasma albumin/glob ulin mass ratioon 07-17-2022 Albumin/Globulin [Mass ratio] 1.0 {ratio} 0.9-2.4 [facility] Work Phone: Serum or plasma calcium fernando urement (mass/volume)on 07-17-2022 Calcium [Mass/Vol] 9.4 mg/dL 8.5-10.1 [facility] Work Phone: Serum or plasma creatinine m easurement (mass/volume)on 07-17-2022 Creatinine [Mass/Vol] 1.13 mg/dL 0.70-1.30 [facility] Work Phone: Comment on above: The validity of the calculated GFR & GFRAA in patients over 70 years has not been determined. Clinical correlation is essential. Serum or plasma urea nitroge n measurement (mass/volume)on 07-17-2022 Urea nitrogen [Mass/Vol] 17 mg/dL 7-18 [facility] Work Phone: Thin prep Papanicolaou smear with manual screeningon 07-17-2022 Thin prep Papanicolaou smear with manual screening 23 U/L 15-37 [facility] Work Phone: Thin prep Papanicolaou smear with manual screening 5 5-15 [facility] Work Phone: Vital Signs Date Time Vital Sign Value Performing Clinician Facility 04-20-2025 11:48-0400 Body mass index (BMI) [Ratio] 26.4 kg/m2 Dr. Shalini Ferrari DO Work Phone: [facility] 04-20-2025 11:48-0400 Body temperature 97 [degF] Dr. Shalini Ferrari DO Work Phone: [facility] 04-20-2025 11:48-0400 Body weight 88.[address] Shalini Ferrari DO Work Phone: [facility] 04-20-2025 11:48-0400 Diastolic blood pressure 68 mm[Hg] Dr. Shalini Ferrari DO Work Phone: [facility] 04-20-2025 11:48-0400 Heart rate 57 /min Dr. Shalini Ferrari DO Work Phone: [facility] 04-20-2025 11:48-0400 Inhaled oxygen flow rate 3 L/min Dr. Shalini Ferrari DO Work Phone: [facility] 04-20-2025 11:48-0400 Respiratory rate 18 /min Dr. Shalini Ferrari DO Work Phone: [facility] 04-20-2025 11:48-0400 SaO2% (BldA) [Mass fraction] 99 % Dr. Shalini Ferrari DO Work Phone: [facility] 04-20-2025 11:48-0400 Systolic blood pressure 116 mm[Hg] Dr. Shalini Ferrari DO Work Phone: [facility] 03-26-2025 08:17-0400 Body height 182.[address] Shalini Ferrari DO Work Phone: [facility] 03-26-2025 08:17-0400 Body mass index (BMI) [Ratio] 25.9 kg/m2 Dr. Shalini Ferrari DO Work Phone: [facility] 03-26-2025 08:17-0400 Body temperature 96.7 [degF] Dr. Shalini Ferrari DO Work Phone: [facility] 03-26-2025 08:17-0400 Body weight 86.[address] Shalini Ferrari DO Work Phone: [facility] 03-26-2025 08:17-0400 Diastolic blood pressure 68 mm[Hg] Dr. Shalini Ferrari DO Work Phone: [facility] 03-26-2025 08:17-0400 Heart rate 68 /min Dr. Shalini Ferrari DO Work Phone: [facility] 03-26-2025 08:17-0400 Inhaled oxygen flow rate 3 L/min Dr. Shalini Ferrari DO Work Phone: [facility] 03-26-2025 08:17-0400 Respiratory rate 18 /min Dr. Shalini Ferrari DO Work Phone: [facility] 03-26-2025 08:17-0400 SaO2% (BldA) [Mass fraction] 96 % Dr. Shalini Ferrari DO Work Phone: [facility] 03-26-2025 08:17-0400 Systolic blood pressure 106 mm[Hg] Dr. Shalini Ferrari DO Work Phone: [facility] 03-10-2025 12:49-0400 Body height 182.[address] Shalini Ferrari DO Work Phone: [facility] 03-10-2025 12:49-0400 Body mass index (BMI) [Ratio] 26.6 kg/m2 Dr. Shalini Ferrari DO Work Phone: [facility] 03-10-2025 12:49-0400 Body temperature 99.4 [degF] Dr. Shalini Ferrari DO Work Phone: [facility] 03-10-2025 12:49-0400 Body weight 89.[address] Shalini Ferrari DO Work Phone: [facility] 03-10-2025 12:49-0400 Diastolic blood pressure 64 mm[Hg] Dr. Shalini Ferrari DO Work Phone: [facility] 03-10-2025 12:49-0400 Heart rate 60 /min Dr. Shalini Ferrari DO Work Phone: [facility] 03-10-2025 12:49-0400 Inhaled oxygen flow rate 3 L/min Dr. Shalini Ferrari DO Work Phone: [facility] 03-10-2025 12:49-0400 Respiratory rate 16 /min Dr. Shalini Ferrari DO Work Phone: [facility] 03-10-2025 12:49-0400 SaO2% (BldA) [Mass fraction] 96 % Dr. Shalini Ferrari DO Work Phone: [facility] 03-10-2025 12:49-0400 Systolic blood pressure 108 mm[Hg] Dr. Shalini Ferrari DO Work Phone: [facility] 02-26-2025 08:11-0400 Body mass index (BMI) [Ratio] 26.3 kg/m2 Dr. Shalini Ferrari DO Work Phone: [facility] 02-26-2025 08:11-0400 Body temperature 97.3 [degF] Dr. Shalini Ferrari DO Work Phone: [facility] 02-26-2025 08:11-0400 Body weight 87.[address] Shalini Ferrari DO Work Phone: [facility] 02-26-2025 08:11-0400 Diastolic blood pressure 65 mm[Hg] Dr. Shalini Ferrari DO Work Phone: [facility] 02-26-2025 08:11-0400 Heart rate 62 /min Dr. Shalini Ferrari DO Work Phone: [facility] 02-26-2025 08:11-0400 Inhaled oxygen flow rate 3 L/min Dr. Shalini Ferrari DO Work Phone: [facility] 02-26-2025 08:11-0400 Respiratory rate 18 /min Dr. Shalini Ferrari DO Work Phone: [facility] 02-26-2025 08:11-0400 SaO2% (BldA) [Mass fraction] 95 % Dr. Shalini Ferrari DO Work Phone: [facility] 02-26-2025 08:11-0400 Systolic blood pressure 110 mm[Hg] Dr. Shalini Ferrari DO Work Phone: [facility] 02-24-2025 13:24-0400 Body height 182.[address] Shalini Ferrari DO Work Phone: [facility] 02-24-2025 13:24-0400 Body mass index (BMI) [Ratio] 26.7 kg/m2 Dr. Shalini Ferrari DO Work Phone: [facility] 02-24-2025 13:24-0400 Body temperature 99.7 [degF] Dr. Shalini Ferrari DO Work Phone: [facility] 02-24-2025 13:24-0400 Body weight 89.[address] Shalini Ferrari DO Work Phone: [facility] 02-24-2025 13:24-0400 Diastolic blood pressure 68 mm[Hg] Dr. Shalini Ferrari DO Work Phone: [facility] 02-24-2025 13:24-0400 Heart rate 57 /min Dr. Shalini Ferrari DO Work Phone: [facility] 02-24-2025 13:24-0400 Inhaled oxygen flow rate 3 L/min Dr. Shalini Ferrari DO Work Phone: [facility] 02-24-2025 13:24-0400 Respiratory rate 16 /min Dr. Shalini Ferrari DO Work Phone: [facility] 02-24-2025 13:24-0400 SaO2% (BldA) [Mass fraction] 96 % Dr. Shalini Ferrari DO Work Phone: [facility] 02-24-2025 13:24-0400 Systolic blood pressure 110 mm[Hg] Dr. Shalini Ferrari DO Work Phone: [facility] 01-26-2025 13:26-0400 Body height 182.[address] Shalini Ferrari DO Work Phone: [facility] 01-26-2025 13:26-0400 Body mass index (BMI) [Ratio] 27.1 kg/m2 Dr. Shalini Ferrari DO Work Phone: [facility] 01-26-2025 13:26-0400 Body weight 90.[address] Shalini Ferrari DO Work Phone: [facility] 01-26-2025 13:26-0400 Diastolic blood pressure 71 mm[Hg] Dr. Shalini Ferrari DO Work Phone: [facility] 01-26-2025 13:26-0400 Heart rate 57 /min Dr. Shalini Ferrari DO Work Phone: [facility] 01-26-2025 13:26-0400 Inhaled oxygen flow rate 3 L/min Dr. Shalini Ferrari DO Work Phone: [facility] 01-26-2025 13:26-0400 Respiratory rate 20 /min Dr. Shalini Ferrari DO Work Phone: [facility] 01-26-2025 13:26-0400 SaO2% (BldA) [Mass fraction] 96 % Dr. Shalini Ferrari DO Work Phone: [facility] 01-26-2025 13:26-0400 Systolic blood pressure 125 mm[Hg] Dr. Shalini Ferrari DO Work Phone: [facility] 01-06-2025 13:57-0400 Body height 182.[address] Shalini Ferrari DO Work Phone: [facility] 01-06-2025 13:57-0400 Body mass index (BMI) [Ratio] 26.4 kg/m2 Dr. Shalini Ferrari DO Work Phone: [facility] 01-06-2025 13:57-0400 Body temperature 97 [degF] Dr. Shalini Ferrari DO Work Phone: [facility] 01-06-2025 13:57-0400 Body weight 88.[address] Shalini Ferrari DO Work Phone: [facility] 01-06-2025 13:57-0400 Diastolic blood pressure 78 mm[Hg] Dr. Shalini Ferrari DO Work Phone: [facility] 01-06-2025 13:57-0400 Inhaled oxygen flow rate 3 L/min Dr. Shalini Ferrari DO Work Phone: [facility] 01-06-2025 13:57-0400 Respiratory rate 20 /min Dr. Shalini Ferrari DO Work Phone: [facility] 01-06-2025 13:57-0400 SaO2% (BldA) [Mass fraction] 97 % Dr. Shalini Ferrari DO Work Phone: [facility] 01-06-2025 13:57-0400 Systolic blood pressure 134 mm[Hg] Dr. Shalini Ferrari DO Work Phone: [facility] 01-04-2025 07:54-0400 Body temperature 97.8 [degF] Dr. Shalini Ferrari DO Work Phone: [facility] 01-04-2025 07:54-0400 Diastolic blood pressure 63 mm[Hg] Dr. Shalini Ferrari DO Work Phone: [facility] 01-04-2025 07:54-0400 Heart rate 50 /min Dr. Shalini Ferrari DO Work Phone: [facility] 01-04-2025 07:54-0400 Inhaled oxygen flow rate 3 L/min Dr. Shalini Ferrari DO Work Phone: [facility] 01-04-2025 07:54-0400 Respiratory rate 16 /min Dr. Shalini Ferrari DO Work Phone: [facility] 01-04-2025 07:54-0400 SaO2% (BldA) [Mass fraction] 100 % Dr. Shalini Ferrari DO Work Phone: [facility] 01-04-2025 07:54-0400 Systolic blood pressure 132 mm[Hg] Dr. Shalini Ferrari DO Work Phone: [facility] 01-04-2025 05:53-0400 Body height 182.[address] Shalini Ferrari DO Work Phone: [facility] 01-04-2025 05:53-0400 Body mass index (BMI) [Ratio] 26.2 kg/m2 Dr. Shalini Ferrari DO Work Phone: [facility] 01-04-2025 05:53-0400 Body weight 87.[address] Shalini Ferrari DO Work Phone: [facility] 12-30-2024 12:57-0400 Body height 182.[address] Shalini Ferrari DO Work Phone: [facility] 12-30-2024 12:57-0400 Body mass index (BMI) [Ratio] 26.8 kg/m2 Dr. Shalini Ferrari DO Work Phone: [facility] 12-30-2024 12:57-0400 Body temperature 98.6 [degF] Dr. Shalini Ferrari DO Work Phone: [facility] 12-30-2024 12:57-0400 Body weight 89.[address] Shalini Ferrari DO Work Phone: [facility] 12-30-2024 12:57-0400 Diastolic blood pressure 70 mm[Hg] Dr. Shalini Ferrari DO Work Phone: [facility] 12-30-2024 12:57-0400 Heart rate 54 /min Dr. Shalini Ferrari DO Work Phone: [facility] 12-30-2024 12:57-0400 Inhaled oxygen flow rate 3 L/min Dr. Shalini Ferrari DO Work Phone: [facility] 12-30-2024 12:57-0400 Respiratory rate 16 /min Dr. Shalini Ferrari DO Work Phone: [facility] 12-30-2024 12:57-0400 SaO2% (BldA) [Mass fraction] 91 % Dr. Shalini Ferrari DO Work Phone: [facility] 12-30-2024 12:57-0400 Systolic blood pressure 116 mm[Hg] Dr. Shalini Ferrari DO Work Phone: [facility] 12-25-2024 13:30-0400 Diastolic blood pressure 53 mm[Hg] Dr. Shalini Ferrari DO Work Phone: [facility] 12-25-2024 13:30-0400 Heart rate 71 /min Dr. Shalini Ferrari DO Work Phone: [facility] 12-25-2024 13:30-0400 Inhaled oxygen flow rate 3 L/min Dr. Shalini Ferrari DO Work Phone: [facility] 12-25-2024 13:30-0400 Respiratory rate 18 /min Dr. Shalini Ferrari DO Work Phone: [facility] 12-25-2024 13:30-0400 SaO2% (BldA) [Mass fraction] 92 % Dr. Shalini Ferrari DO Work Phone: [facility] 12-25-2024 13:30-0400 Systolic blood pressure 133 mm[Hg] Dr. Shalini Ferrari DO Work Phone: [facility] 12-25-2024 12:06-0400 Body mass index (BMI) [Ratio] 25.7 kg/m2 Dr. Shalini Ferrari DO Work Phone: [facility] 12-25-2024 12:06-0400 Body weight 86.[address] Shalini Ferrari DO Work Phone: [facility] 12-11-2024 08:23-0500 Body mass index (BMI) [Ratio] 26 kg/m2 Dr. Shalini Ferrari DO Work Phone: [facility] 12-11-2024 08:23-0500 Body temperature 97.3 [degF] Dr. Shalini Ferrari DO Work Phone: [facility] 12-11-2024 08:23-0500 Body weight 87.[address] Shalini Ferrari DO Work Phone: [facility] 12-11-2024 08:23-0500 Diastolic blood pressure 59 mm[Hg] Dr. Shalini Ferrari DO Work Phone: [facility] 12-11-2024 08:23-0500 Heart rate 60 /min Dr. Shalini Ferrari DO Work Phone: [facility] 12-11-2024 08:23-0500 Inhaled oxygen flow rate 3 L/min Dr. Shalini Ferrari DO Work Phone: [facility] 12-11-2024 08:23-0500 Respiratory rate 18 /min Dr. Shalini Ferrari DO Work Phone: [facility] 12-11-2024 08:23-0500 SaO2% (BldA) [Mass fraction] 94 % Dr. Shalini Ferrari DO Work Phone: [facility] 12-11-2024 08:23-0500 Systolic blood pressure 111 mm[Hg] Dr. Shalini Ferrari DO Work Phone: [facility] 12-10-2024 13:30-0500 Body mass index (BMI) [Ratio] 26.4 kg/m2 Dr. Shalini Ferrari DO Work Phone: [facility] 12-10-2024 13:30-0500 Body weight 88.[address] Shalini Ferrari DO Work Phone: [facility] 12-10-2024 13:30-0500 Diastolic blood pressure 61 mm[Hg] Dr. Shalini Ferrari DO Work Phone: [facility] 12-10-2024 13:30-0500 Heart rate 75 /min Dr. Shalini Ferrari DO Work Phone: [facility] 12-10-2024 13:30-0500 Inhaled oxygen flow rate 3 L/min Dr. Shalini Ferrari DO Work Phone: [facility] 12-10-2024 13:30-0500 Respiratory rate 18 /min Dr. Shalini Ferrari DO Work Phone: [facility] 12-10-2024 13:30-0500 SaO2% (BldA) [Mass fraction] 90 % Dr. Shalini Ferrari DO Work Phone: [facility] 12-10-2024 13:30-0500 Systolic blood pressure 98 mm[Hg] Dr. Shalini Ferrari DO Work Phone: [facility] 11-09-2024 15:20-0500 Body mass index (BMI) [Ratio] 27 kg/m2 Dr. Shalini Ferrari DO Work Phone: [facility] 11-09-2024 15:20-0500 Body weight 90.[address] Shalini Ferrari DO Work Phone: [facility] 11-09-2024 15:20-0500 Diastolic blood pressure 71 mm[Hg] Dr. Shalini Ferrari DO Work Phone: [facility] 11-09-2024 15:20-0500 Heart rate 64 /min Dr. Shalini Ferrari DO Work Phone: [facility] 11-09-2024 15:20-0500 Inhaled oxygen flow rate 3 L/min Dr. Shalini Ferrari DO Work Phone: [facility] 11-09-2024 15:20-0500 Respiratory rate 20 /min Dr. Shalini Ferrari DO Work Phone: [facility] 11-09-2024 15:20-0500 SaO2% (BldA) [Mass fraction] 90 % Dr. Shalini Ferrari DO Work Phone: [facility] 11-09-2024 15:20-0500 Systolic blood pressure 122 mm[Hg] Dr. Shalini Ferrari DO Work Phone: [facility] 10-30-2024 13:42-0500 Body mass index (BMI) [Ratio] 23.8 kg/m2 Dr. Shalini Ferrari DO Work Phone: [facility] 10-30-2024 13:42-0500 Body temperature 97.3 [degF] Dr. Shalini Ferrari DO Work Phone: [facility] 10-30-2024 13:42-0500 Body weight 79.[address] Shalini Ferrari DO Work Phone: [facility] 10-30-2024 13:42-0500 Diastolic blood pressure 73 mm[Hg] Dr. Shalini Ferrari DO Work Phone: [facility] 10-30-2024 13:42-0500 Heart rate 70 /min Dr. Shalini Ferrari DO Work Phone: [facility] 10-30-2024 13:42-0500 Inhaled oxygen flow rate 3 L/min Dr. Shalini Ferrari DO Work Phone: [facility] 10-30-2024 13:42-0500 Respiratory rate 18 /min Dr. Shalini Ferrari DO Work Phone: [facility] 10-30-2024 13:42-0500 SaO2% (BldA) [Mass fraction] 94 % Dr. Shalini Ferrari DO Work Phone: [facility] 10-30-2024 13:42-0500 Systolic blood pressure 114 mm[Hg] Dr. hSalini Ferrari DO Work Phone: [facility] 10-20-2024 15:18-0500 Body mass index (BMI) [Ratio] 25.7 kg/m2 Dr. Shalini Ferrari DO Work Phone: [facility] 10-20-2024 15:18-0500 Body temperature 97.2 [degF] Dr. Shalini Ferrari DO Work Phone: [facility] 10-20-2024 15:18-0500 Body weight 86.[address] Shalini Ferrari DO Work Phone: [facility] 10-20-2024 15:18-0500 Diastolic blood pressure 80 mm[Hg] Dr. Shalini Ferrari DO Work Phone: [facility] 10-20-2024 15:18-0500 Heart rate 63 /min Dr. Shalini Ferrari DO Work Phone: [facility] 10-20-2024 15:18-0500 Respiratory rate 16 /min Dr. Shalini Ferrari DO Work Phone: [facility] 10-20-2024 15:18-0500 SaO2% (BldA) [Mass fraction] 97 % Dr. Shalini Ferrari DO Work Phone: [facility] 10-20-2024 15:18-0500 Systolic blood pressure 128 mm[Hg] Dr. Shalini Ferrari DO Work Phone: [facility] 09-30-2024 12:30-0500 Diastolic blood pressure 84 mm[Hg] David Valdes Jr., MD Work Phone: [facility] 09-30-2024 12:30-0500 Heart rate 62 /min David Valdes Jr., MD Work Phone: [facility] 09-30-2024 12:30-0500 SaO2% (BldA) [Mass fraction] 93 % David Valdes Jr., MD Work Phone: [facility] 09-30-2024 12:30-0500 Systolic blood pressure 128 mm[Hg] David Valdes Jr., MD Work Phone: [facility] 09-25-2024 10:43-0500 Body mass index (BMI) [Ratio] 26.4 kg/m2 Dr. Shalini Ferrari DO Work Phone: [facility] 09-25-2024 10:43-0500 Body temperature 97.2 [degF] Dr. Shalini Ferrari DO Work Phone: [facility] 09-25-2024 10:43-0500 Body weight 88.[address] Shalini Ferrari DO Work Phone: [facility] 09-25-2024 10:43-0500 Diastolic blood pressure 70 mm[Hg] Dr. Shalini Ferrari DO Work Phone: [facility] 09-25-2024 10:43-0500 Heart rate 56 /min Dr. Shalini Ferrari DO Work Phone: [facility] 09-25-2024 10:43-0500 Inhaled oxygen flow rate 3 L/min Dr. Shalini Ferrari DO Work Phone: [facility] 09-25-2024 10:43-0500 Respiratory rate 22 /min Dr. Shalini Ferrari DO Work Phone: [facility] 09-25-2024 10:43-0500 SaO2% (BldA) [Mass fraction] 96 % Dr. Shalini Ferrari DO Work Phone: [facility] 09-25-2024 10:43-0500 Systolic blood pressure 131 mm[Hg] Dr. Shalini Ferrari DO Work Phone: [facility] 06-25-2024 12:51-0400 Body height 182.9 cm David Valdes Jr., MD Work Phone: [facility] 06-25-2024 12:51-0400 Heart rate 52 /min David Valdes Jr., MD Work Phone: [facility] 06-25-2024 12:51-0400 SaO2% (BldA) [Mass fraction] 97 % David Valdes Jr., MD Work Phone: [facility] 05-20-2024 13:30-0400 Body height 182.9 cm P[facility] 1 [facility] 05-20-2024 13:30-0400 Body mass index (BMI) [Ratio] 24.55 kg/m2 Pst 1 [facility] 05-20-2024 13:30-0400 Body temperature 98.2 [degF] Pst 1 [facility] 05-20-2024 13:30-0400 Body weight 82.1 kg Pst 1 [facility] 05-20-2024 13:30-0400 Diastolic blood pressure 74 mm[Hg] Pst 1 [facility] 05-20-2024 13:30-0400 Heart rate 62 /min Pst 1 [facility] 05-20-2024 13:30-0400 Respiratory rate 16 /min Pst 1 [facility] 05-20-2024 13:30-0400 SaO2% (BldA) [Mass fraction] 98 % Pst 1 [facility] 05-20-2024 13:30-0400 Systolic blood pressure 124 mm[Hg] Pst 1 [facility] 03-30-2024 09:55-0400 Diastolic blood pressure 62 mm[Hg] David Valdes Jr., MD Work Phone: [facility] 03-30-2024 09:55-0400 Heart rate 60 /min David Valdes Jr., MD Work Phone: [facility] 03-30-2024 09:55-0400 SaO2% (BldA) [Mass fraction] 99 % David Valdes Jr., MD Work Phone: [facility] 03-30-2024 09:55-0400 Systolic blood pressure 110 mm[Hg] David Valdes Jr., MD Work Phone: [facility] 02-05-2024 13:59-0400 Body height 185.[address] Shalini Ferrari Work Phone: [facility] 02-05-2024 13:59-0400 Body mass index (BMI) [Ratio] 19.8 kg/m2 Dr. Shalini Ferrari Work Phone: [facility] 02-05-2024 13:59-0400 Body temperature 98.3 [degF] Dr. Shalini Ferrari Work Phone: [facility] 02-05-2024 13:59-0400 Body weight 68.[address] Shalini Ferrari Work Phone: [facility] 02-05-2024 13:59-0400 Diastolic blood pressure 80 mm[Hg] Dr. Shalini Ferrari Work Phone: [facility] 02-05-2024 13:59-0400 Heart rate 70 /min Dr. Shalini Ferrari Work Phone: [facility] 02-05-2024 13:59-0400 Inhaled oxygen flow rate 3 L/min Dr. Shalini Ferrari Work Phone: [facility] 02-05-2024 13:59-0400 Respiratory rate 17 /min Dr. Shalini Ferrari Work Phone: [facility] 02-05-2024 13:59-0400 SaO2% (BldA) [Mass fraction] 98 % Dr. Shalini Ferrari Work Phone: [facility] 02-05-2024 13:59-0400 Systolic blood pressure 122 mm[Hg] Dr. Shalini Ferrari Work Phone: [facility] 01-23-2024 08:21-0400 Body height 185.[address] Shalini Ferrari Work Phone: [facility] 01-23-2024 08:21-0400 Body mass index (BMI) [Ratio] 15 kg/m2 Dr. Shalini Ferrari Work Phone: [facility] 01-23-2024 08:21-0400 Body temperature 97.8 [degF] Dr. Shalini Ferrari Work Phone: [facility] 01-23-2024 08:21-0400 Body weight 51.[address] Shalini Ferrari Work Phone: [facility] 01-23-2024 08:21-0400 Diastolic blood pressure 69 mm[Hg] Dr. Shalini Ferrari Work Phone: [facility] 01-23-2024 08:21-0400 Heart rate 56 /min Dr. Shalini Ferrari Work Phone: [facility] 01-23-2024 08:21-0400 Inhaled oxygen flow rate 3 L/min Dr. Shalini Ferrari Work Phone: [facility] 01-23-2024 08:21-0400 Respiratory rate 18 /min Dr. Shalini Ferrari Work Phone: [facility] 01-23-2024 08:21-0400 SaO2% (BldA) [Mass fraction] 95 % Dr. Shalini Ferrari Work Phone: [facility] 01-23-2024 08:21-0400 Systolic blood pressure 123 mm[Hg] Dr. Shalini Ferrari Work Phone: [facility] 01-21-2024 15:35-0400 Body height 182.9 cm Natalia King PA-C Work Phone: [facility] 01-21-2024 15:35-0400 Body temperature 99.61 [degF] Natalia Ikng PA-C Work Phone: [facility] 01-21-2024 15:35-0400 Body weight 67.59 kg Natalia King PA-C Work Phone: [facility] 01-21-2024 15:35-0400 Diastolic blood pressure 70 mm[Hg] Natalia King PA-C Work Phone: [facility] 01-21-2024 15:35-0400 Heart rate 84 /min Natalia King PA-C Work Phone: [facility] 01-21-2024 15:35-0400 Respiratory rate 18 /min Natalia King PA-C Work Phone: [facility] 01-21-2024 15:35-0400 SaO2% (BldA) [Mass fraction] 95 % Natalia King PA-C Work Phone: [facility] 01-21-2024 15:35-0400 Systolic blood pressure 122 mm[Hg] Natalia King PA-C Work Phone: [facility] 01-02-2024 11:10-0400 Body temperature 97.9 [degF] Dr. Shalini Ferrari Work Phone: [facility] 01-02-2024 11:10-0400 Diastolic blood pressure 57 mm[Hg] Dr. Shalini Ferrari Work Phone: [facility] 01-02-2024 11:10-0400 Heart rate 60 /min Dr. Shalini Ferrari Work Phone: [facility] 01-02-2024 11:10-0400 Inhaled oxygen flow rate 3 L/min Dr. Shalini Ferrari Work Phone: [facility] 01-02-2024 11:10-0400 Respiratory rate 16 /min Dr. Shalini Ferrari Work Phone: [facility] 01-02-2024 11:10-0400 SaO2% (BldA) [Mass fraction] 97 % Dr. Shalini Ferrari Work Phone: [facility] 01-02-2024 11:10-0400 Systolic blood pressure 105 mm[Hg] Dr. Shalini Ferrari Work Phone: [facility] 01-02-2024 09:06-0400 Body height 185.[address] Shalini Ferrari Work Phone: [facility] 01-02-2024 09:06-0400 Body mass index (BMI) [Ratio] 19.5 kg/m2 Dr. Shalini Ferrari Work Phone: [facility] 01-02-2024 09:06-0400 Body weight [address] Shalini Ferrari Work Phone: [facility] 12-20-2023 13:53-0500 Body temperature 98.7 [degF] Dr. Shalini Ferrari Work Phone: [facility] 12-20-2023 13:53-0500 Diastolic blood pressure 57 mm[Hg] Dr. Shalini Ferrari Work Phone: [facility] 12-20-2023 13:53-0500 Heart rate 64 /min Dr. Shalini Ferrari Work Phone: [facility] 12-20-2023 13:53-0500 Inhaled oxygen flow rate 3 L/min Dr. Shalini Ferrari Work Phone: [facility] 12-20-2023 13:53-0500 Respiratory rate 16 /min Dr. Shalini Ferrari Work Phone: [facility] 12-20-2023 13:53-0500 SaO2% (BldA) [Mass fraction] 100 % Dr. Shalini Ferrari Work Phone: [facility] 12-20-2023 13:53-0500 Systolic blood pressure 116 mm[Hg] Dr. Shalini Ferrari Work Phone: [facility] 12-20-2023 08:44-0500 Body height 182.[address] Shalini Ferrari Work Phone: [facility] 12-20-2023 08:44-0500 Body mass index (BMI) [Ratio] 18.3 kg/m2 Dr. Shalini Ferrari Work Phone: [facility] 12-20-2023 08:44-0500 Body weight 61.[address] Shalini Ferrari Work Phone: [facility] 12-11-2023 14:15-0500 Body temperature 98.1 [degF] Dr. Shalini Ferrari Work Phone: [facility] 12-11-2023 14:15-0500 Diastolic blood pressure 64 mm[Hg] Dr. Shalini Ferrari Work Phone: [facility] 12-11-2023 14:15-0500 Heart rate 68 /min Dr. Shalini Ferrari Work Phone: [facility] 12-11-2023 14:15-0500 Respiratory rate 18 /min Dr. Shalini Ferrari Work Phone: [facility] 12-11-2023 14:15-0500 SaO2% (BldA) [Mass fraction] 99 % Dr. Shalini Ferrari Work Phone: [facility] 12-11-2023 14:15-0500 Systolic blood pressure 102 mm[Hg] Dr. Shalini Ferrari Work Phone: [facility] 12-11-2023 07:35-0500 Inhaled oxygen flow rate 2 L/min Dr. Shalini Ferrari Work Phone: [facility] 12-11-2023 05:59-0500 Body mass index (BMI) [Ratio] 18.8 kg/m2 Dr. Shalini Ferrari Work Phone: [facility] 12-11-2023 05:59-0500 Body weight 63.[address] Shalini Ferrari Work Phone: [facility] 12-06-2023 09:35-0500 Body height 182.[address] Shalini Ferrari Work Phone: [facility] 12-03-2023 21:04-0500 Body weight 60.[address] Shalini Ferrari Work Phone: [facility] 12-03-2023 20:17-0500 Body temperature 98.1 [degF] Dr. Shalini Ferrari Work Phone: [facility] 12-03-2023 20:17-0500 Diastolic blood pressure 70 mm[Hg] Dr. Shalini Ferrari Work Phone: [facility] 12-03-2023 20:17-0500 Heart rate 55 /min Dr. Shalini Ferrari Work Phone: [facility] 12-03-2023 20:17-0500 Inhaled oxygen flow rate 3 L/min Dr. Shalini Ferrari Work Phone: [facility] 12-03-2023 20:17-0500 Respiratory rate 16 /min Dr. Shalini Ferrari Work Phone: [facility] 12-03-2023 20:17-0500 SaO2% (BldA) [Mass fraction] 98 % Dr. Shalnii Ferrari Work Phone: [facility] 12-03-2023 20:17-0500 Systolic blood pressure 151 mm[Hg] Dr. Shalini Ferrari Work Phone: [facility] 12-03-2023 16:31-0500 Body height 182.[address] Shalini Ferrari Work Phone: [facility] 12-03-2023 16:31-0500 Body mass index (BMI) [Ratio] 20.3 kg/m2 Dr. Shalini Ferrari Work Phone: [facility] 11-20-2023 11:20-0500 Body height 182.[address] Shalini Ferrari Work Phone: [facility] 11-20-2023 11:20-0500 Body mass index (BMI) [Ratio] 18.3 kg/m2 Dr. Shalini Ferrari Work Phone: [facility] 11-20-2023 11:20-0500 Body temperature 97.7 [degF] Dr. Shalini Ferrari Work Phone: [facility] 11-20-2023 11:20-0500 Body weight 61.[address] Shalini Ferrari Work Phone: [facility] 11-20-2023 11:20-0500 Diastolic blood pressure 68 mm[Hg] Dr. Shalini Ferrari Work Phone: [facility] 11-20-2023 11:20-0500 Systolic blood pressure 114 mm[Hg] Dr. Shalini Ferrari Work Phone: [facility] 11-06-2023 14:25-0500 Body mass index (BMI) [Ratio] 17.9 kg/m2 Dr. Shalini Ferrari Work Phone: [facility] 11-06-2023 14:25-0500 Body weight 59.[address] Shalini Ferrari Work Phone: [facility] 11-06-2023 14:25-0500 Diastolic blood pressure 52 mm[Hg] Dr. Shalini Ferrari Work Phone: [facility] 11-06-2023 14:25-0500 Heart rate 65 /min Dr. Shalini Ferrari Work Phone: [facility] 11-06-2023 14:25-0500 Respiratory rate 18 /min Dr. Shalini Ferrari Work Phone: [facility] 11-06-2023 14:25-0500 Systolic blood pressure 91 mm[Hg] Dr. Shalini Ferrari Work Phone: [facility] 10-22-2023 09:07-0500 Body height 182.[address] Shalini Ferrari Work Phone: [facility] 10-22-2023 09:07-0500 Body mass index (BMI) [Ratio] 17.9 kg/m2 Dr. Shalini Ferrari Work Phone: [facility] 10-22-2023 09:07-0500 Body temperature 96.7 [degF] Dr. Shalini Ferrari Work Phone: [facility] 10-22-2023 09:07-0500 Body weight 59.[address] Shalini Ferrari Work Phone: [facility] 10-22-2023 09:07-0500 Diastolic blood pressure 56 mm[Hg] Dr. Shalini Ferrari Work Phone: [facility] 10-22-2023 09:07-0500 Heart rate 62 /min Dr. Shalini Ferrari Work Phone: [facility] 10-22-2023 09:07-0500 Inhaled oxygen flow rate 3 L/min [facility] Shalini [facility] [facility] 10-22-2023 09:07-0500 Respiratory rate 18 /min Dr. Shalini Ferrari Work Phone: [facility] 10-22-2023 09:07-0500 Systolic blood pressure 92 mm[Hg] Dr. Shalini Ferrari Work Phone: [facility] 10-16-2023 11:27-0500 Inhaled oxygen flow rate 3 L/min Dr. Shalini Ferrari Work Phone: [facility] 10-16-2023 11:27-0500 SaO2% (BldA) [Mass fraction] 95 % Dr. Shalini Ferrari Work Phone: [facility] 10-16-2023 11:25-0500 Heart rate 88 /min Dr. Shalini Ferrari Work Phone: [facility] 10-09-2023 11:45-0500 Body temperature 97.7 [degF] Dr. Shalini Ferrari Work Phone: [facility] 10-09-2023 11:45-0500 Diastolic blood pressure 70 mm[Hg] Dr. Shalini Ferrari Work Phone: [facility] 10-09-2023 11:45-0500 Heart rate 62 /min Dr. Shalini Ferrari Work Phone: [facility] 10-09-2023 11:45-0500 Respiratory rate 16 /min Dr. Shalini Ferrari Work Phone: [facility] 10-09-2023 11:45-0500 SaO2% (BldA) [Mass fraction] 100 % Dr. Shalini Ferrari Work Phone: [facility] 10-09-2023 11:45-0500 Systolic blood pressure 105 mm[Hg] Dr. Shalini Ferrari Work Phone: [facility] 10-09-2023 11:35-0500 Inhaled oxygen flow rate 1 L/min Dr. Shalini Ferrari Work Phone: [facility] 10-09-2023 10:03-0500 Body height 182.[address] Shalini Ferrari Work Phone: [facility] 10-09-2023 10:03-0500 Body mass index (BMI) [Ratio] 17.6 kg/m2 Dr. Shalini Ferrari Work Phone: [facility] 10-09-2023 10:03-0500 Body weight 58.[address] Shalini Ferrari Work Phone: [facility] 09-26-2023 14:48-0500 Body mass index (BMI) [Ratio] 18.6 kg/m2 Dr. Shalini Ferrari Work Phone: [facility] 09-26-2023 14:48-0500 Body temperature 97.1 [degF] Dr. Shalini Ferrari Work Phone: [facility] 09-26-2023 14:48-0500 Body weight 62.[address] Shalini Ferrari Work Phone: [facility] 09-26-2023 14:48-0500 Diastolic blood pressure 49 mm[Hg] Dr. Shalini Ferrari Work Phone: [facility] 09-26-2023 14:48-0500 Heart rate 59 /min Dr. Shalini Ferrari Work Phone: [facility] 09-26-2023 14:48-0500 Respiratory rate 17 /min Dr. Shalini Ferrari Work Phone: [facility] 09-26-2023 14:48-0500 Systolic blood pressure 116 mm[Hg] Dr. Shalini Ferrari Work Phone: [facility] 09-13-2023 10:54-0500 Body mass index (BMI) [Ratio] 19 kg/m2 Dr. Shalini Ferrari Work Phone: [facility] 09-13-2023 10:54-0500 Body temperature 97.7 [degF] Dr. Shalini Ferrari Work Phone: [facility] 09-13-2023 10:54-0500 Body weight 63.[address] Shalini Ferrari Work Phone: [facility] 09-13-2023 10:54-0500 Diastolic blood pressure 62 mm[Hg] Dr. Shalini Ferrari Work Phone: [facility] 09-13-2023 10:54-0500 Heart rate 64 /min Dr. Shalini Ferrari Work Phone: [facility] 09-13-2023 10:54-0500 Respiratory rate 16 /min Dr. Shalini Ferrari Work Phone: [facility] 09-13-2023 10:54-0500 Systolic blood pressure 120 mm[Hg] Dr. Shalini Ferrari Work Phone: [facility] 08-20-2023 11:29-0500 Body height 182.[address] Shalini Ferrari Work Phone: [facility] 08-20-2023 11:29-0500 Body mass index (BMI) [Ratio] 20.2 kg/m2 Dr. Shalini Ferrari Work Phone: [facility] 08-20-2023 11:29-0500 Body temperature 98.7 [degF] Dr. Shalini Ferrari Work Phone: [facility] 08-20-2023 11:29-0500 Body weight 67.[address] Shalini Ferrari Work Phone: [facility] 08-20-2023 11:29-0500 Diastolic blood pressure 50 mm[Hg] Dr. Shalini Ferrari Work Phone: [facility] 08-20-2023 11:29-0500 Heart rate 59 /min Dr. Shalini Ferrari Work Phone: [facility] 08-20-2023 11:29-0500 Respiratory rate 16 /min Dr. Shalini Ferrari Work Phone: [facility] 08-20-2023 11:29-0500 SaO2% (BldA) [Mass fraction] 99 % Dr. Shalini Ferrari Work Phone: [facility] 08-20-2023 11:29-0500 Systolic blood pressure 106 mm[Hg] Dr. Shalini Ferrari Work Phone: [facility] 08-13-2023 13:14-0400 Body height 182.[address] Shalini Ferrari Work Phone: [facility] 08-13-2023 13:14-0400 Body weight 63.[address] Shalini Ferrari Work Phone: [facility] 08-13-2023 13:14-0400 Heart rate 56 /min Dr. Shalini Ferrari Work Phone: [facility] 08-13-2023 13:14-0400 SaO2% (BldA) [Mass fraction] 97 % Dr. Shalini Ferrari Work Phone: [facility] 08-01-2023 07:36-0400 Body mass index (BMI) [Ratio] 17.8 kg/m2 Dr. Shalini Ferrari Work Phone: [facility] 08-01-2023 07:36-0400 Body temperature 96.6 [degF] Dr. Shalini Ferrari Work Phone: [facility] 08-01-2023 07:36-0400 Body weight 61.[address] Shalini Ferrari Work Phone: [facility] 08-01-2023 07:36-0400 Diastolic blood pressure 57 mm[Hg] Dr. Shalini Ferrari Work Phone: [facility] 08-01-2023 07:36-0400 Heart rate 53 /min Dr. Shalini Ferrari Work Phone: [facility] 08-01-2023 07:36-0400 Respiratory rate 18 /min Dr. Shalini Ferrari Work Phone: [facility] 08-01-2023 07:36-0400 Systolic blood pressure 97 mm[Hg] Dr. Shalini Ferrari Work Phone: [facility] 05-16-2023 11:27-0400 Body height 185.[address] Shalini Ferrari Work Phone: [facility] 05-16-2023 11:27-0400 Body mass index (BMI) [Ratio] 19 kg/m2 Dr. Shalini Ferrari Work Phone: [facility] 05-16-2023 11:27-0400 Body temperature 95.9 [degF] Dr. Shalini Ferrari Work Phone: [facility] 05-16-2023 11:27-0400 Body weight 65.[address] Shalini Ferrari Work Phone: [facility] 05-16-2023 11:27-0400 Diastolic blood pressure 72 mm[Hg] Dr. Shalini Ferrari Work Phone: [facility] 05-16-2023 11:27-0400 Heart rate 64 /min Dr. Shalini Ferrari Work Phone: [facility] 05-16-2023 11:27-0400 Respiratory rate 18 /min Dr. Shalini Ferrari Work Phone: [facility] 05-16-2023 11:27-0400 Systolic blood pressure 114 mm[Hg] Dr. Shalini Ferrari Work Phone: [facility] 04-03-2023 09:46-0400 Body height 185.[address] Shalini Ferrari Work Phone: [facility] 04-03-2023 09:46-0400 Body mass index (BMI) [Ratio] 18.8 kg/m2 Dr. Shalini Ferrari Work Phone: [facility] 04-03-2023 09:46-0400 Body temperature 95.5 [degF] Dr. Shalini Ferrari Work Phone: [facility] 04-03-2023 09:46-0400 Body weight 64.[address] Shalini Ferrari Work Phone: [facility] 04-03-2023 09:46-0400 Diastolic blood pressure 56 mm[Hg] Dr. Shalini Ferrari Work Phone: [facility] 04-03-2023 09:46-0400 Heart rate 84 /min Dr. Shalini Ferrari Work Phone: [facility] 04-03-2023 09:46-0400 Respiratory rate 18 /min Dr. Shalini Ferrari Work Phone: [facility] 04-03-2023 09:46-0400 Systolic blood pressure 104 mm[Hg] Dr. Shalini Ferrari Work Phone: [facility] 03-26-2023 12:44-0400 Body mass index (BMI) [Ratio] 19.1 kg/m2 Dr. Shalini Ferrari Work Phone: [facility] 03-26-2023 12:44-0400 Body weight 65.[address] Shalini Ferrari Work Phone: [facility] 03-26-2023 12:44-0400 Diastolic blood pressure 100 mm[Hg] Dr. Shalini Ferrari Work Phone: [facility] 03-26-2023 12:44-0400 Respiratory rate 16 /min Dr. Shalini Ferrari Work Phone: [facility] 03-26-2023 12:44-0400 Systolic blood pressure 184 mm[Hg] Dr. Shalini Ferrari Work Phone: [facility] 02-12-2023 14:35-0400 Body mass index (BMI) [Ratio] 20.7 kg/m2 Dr. Shalini Ferrari Work Phone: [facility] 02-12-2023 14:35-0400 Body temperature 98 [degF] Dr. Shalini Ferrari Work Phone: [facility] 02-12-2023 14:35-0400 Body weight 71.[address] Shalini Ferrari Work Phone: [facility] 02-12-2023 14:35-0400 Diastolic blood pressure 60 mm[Hg] Dr. Shalini Ferrari Work Phone: [facility] 02-12-2023 14:35-0400 Heart rate 86 /min Dr. Shalini Ferrari Work Phone: [facility] 02-12-2023 14:35-0400 Respiratory rate 12 /min Dr. Shalini Ferrari Work Phone: [facility] 02-12-2023 14:35-0400 SaO2% (BldA) [Mass fraction] 96 % Dr. Shalini Ferrari Work Phone: [facility] 02-12-2023 14:35-0400 Systolic blood pressure 116 mm[Hg] Dr. Shalini Ferrari Work Phone: [facility] 01-30-2023 12:48-0400 Body temperature 98.24 [degF] DANIELEGUMARO VORA [employer]IVIL DEFENSE DIRECTOR[employer] [facility] 01-30-2023 12:48-0400 Diastolic Blood Pressure Non-Invasive 67 1 DANIELEGUMARO CORNEJON CIVIL DEFENSE DIRECTOR[employer] [facility] 01-30-2023 12:48-0400 Heart rate 70 /min DANIELEGUMARO CORNEJON CIVIL DEFENSE DIRECTOR[employer] [facility] 01-30-2023 12:48-0400 Reason For Taking VItal Signs DANIELE VORA CIVIL DEFENSE DIRECTOR[employer] [facility] 01-30-2023 12:48-0400 Respiratory rate 18 /min DANIELEGUMARO CORNEJON CIVIL DEFENSE DIRECTOR[employer] [facility] 01-30-2023 12:48-0400 Systolic Blood Pressure Non-Invasive 133 1 DANIELE CORNEJON CIVIL DEFENSE DIRECTOR[employer] [facility] 01-30-2023 06:40-0400 Body temperature 98.24 [degF] DANIELEGUMARO CORNEJON [employer]IVIL DEFENSE DIRECTOR[employer] [facility] 01-30-2023 06:40-0400 Diastolic Blood Pressure Non-Invasive 72 1 DANIELEGUMARO CORNEJON [employer]IVIL DEFENSE DIRECTOR[employer] [facility] 01-30-2023 06:40-0400 Heart rate 71 /min DANIELEGUMARO CORNEJON CIVIL DEFENSE DIRECTOR[employer] [facility] 01-30-2023 06:40-0400 Reason For Taking VItal Signs DANIELE VORA CIVIL DEFENSE DIRECTOR[employer] [facility] 01-30-2023 06:40-0400 Respiratory rate 18 /min DANIELE KENNEN [employer]IVIL DEFENSE DIRECTOR[employer] [facility] 01-30-2023 06:40-0400 Systolic Blood Pressure Non-Invasive 145 1 DANIELE VORA CIVIL DEFENSE DIRECTOR[employer] [facility] 01-30-2023 04:20-0400 Body temperature 98.24 [degF] DANIELE VORA [employer]IVIL DEFENSE DIRECTOR[employer] [facility] 01-30-2023 04:20-0400 Diastolic Blood Pressure Non-Invasive 76 1 DANIELE VORA CIVIL DEFENSE DIRECTOR[employer] [facility] 01-30-2023 04:20-0400 Heart rate 74 /min DANIELE CORNEJOReed CIVIL DEFENSE DIRECTOR[employer] [facility] 01-30-2023 04:20-0400 Reason For Taking VItal Signs DANIELE CORNEJOReed CIVIL DEFENSE DIRECTOR[employer] [facility] 01-30-2023 04:20-0400 Respiratory rate 18 /min DANIELE CORNEJOReed CIVIL DEFENSE DIRECTOR[employer] [facility] 01-30-2023 04:20-0400 Systolic Blood Pressure Non-Invasive 129 1 DANIELE CORNEJOReed CIVIL DEFENSE DIRECTOR[employer] [facility] 01-30-2023 00:08-0400 Heart rate 70 /min DANIELE CORNEJOReed [employer]IVIL DEFENSE DIRECTOR[employer] [facility] 01-29-2023 19:24-0400 Heart rate 66 /min DANIELE CORNEJOReed CIVIL DEFENSE DIRECTOR[employer] [facility] 01-29-2023 16:21-0400 Heart rate 60 /min DANIELE CORNEJOReed CIVIL DEFENSE DIRECTOR[employer] [facility] 01-29-2023 06:45-0400 Heart rate 65 /min DANIELE LARASHILPA [employer]IVIL DEFENSE DIRECTOR[employer] [facility] 01-28-2023 18:02-0400 Body height 185.4 cm DANIELE VORA APRN-[employer] [facility] 01-28-2023 18:02-0400 Body weight 68.1 kg DANIELE VORA [employer] DEF[employer] DIRECTOR[employer] [facility] 01-28-2023 18:02-0400 Body weight 19.81 kg/m2 DANIELE CORNEJOReed CIVIL DEFENSE DIRECTOR[employer] [facility] 01-24-2023 11:07-0400 Body mass index (BMI) [Ratio] 20.8 kg/m2 Dr. Shalini Ferrari Work Phone: [facility] 01-24-2023 11:07-0400 Body temperature 96 [degF] Dr. Shalini Ferrari Work Phone: [facility] 01-24-2023 11:07-0400 Body weight 71.[address] Shalini Ferrari Work Phone: [facility] 01-24-2023 11:07-0400 Diastolic blood pressure 86 mm[Hg] Dr. Shalini Ferrari Work Phone: [facility] 01-24-2023 11:07-0400 Heart rate 102 /min Dr. Shalini Ferrari Work Phone: [facility] 01-24-2023 11:07-0400 Respiratory rate 18 /min Dr. Shalini Ferrari Work Phone: [facility] 01-24-2023 11:07-0400 SaO2% (BldA) [Mass fraction] 99 % Dr. Shalini Ferrari Work Phone: [facility] 01-24-2023 11:07-0400 Systolic blood pressure 132 mm[Hg] Dr. Shalini Ferrari Work Phone: [facility] 01-16-2023 19:05-0400 Body temperature 98.2 [degF] Dr. Shalini Ferrari Work Phone: [facility] 01-16-2023 19:05-0400 Diastolic blood pressure 76 mm[Hg] Dr. Shalini Ferrari Work Phone: [facility] 01-16-2023 19:05-0400 Heart rate 113 /min Dr. Shalini Ferrari Work Phone: [facility] 01-16-2023 19:05-0400 Respiratory rate 18 /min Dr. Shalini Ferrari Work Phone: [facility] 01-16-2023 19:05-0400 SaO2% (BldA) [Mass fraction] 95 % Dr. Shalini Ferrari Work Phone: [facility] 01-16-2023 19:05-0400 Systolic blood pressure 138 mm[Hg] Dr. Shalini Ferrari Work Phone: [facility] 01-16-2023 05:36-0400 Body mass index (BMI) [Ratio] 22.5 kg/m2 Dr. Shalini Ferrari Work Phone: [facility] 01-16-2023 05:36-0400 Body weight 77.[address] Shalini Ferrari Work Phone: [facility] 01-15-2023 10:04-0400 Body height 185.[address] Shalini Ferrari Work Phone: [facility] 01-12-2023 19:47-0400 Body temperature 98.8 [degF] Dr. Shalini Ferrari Work Phone: [facility] 01-12-2023 19:47-0400 Diastolic blood pressure 74 mm[Hg] Dr. Shalini Ferrari Work Phone: [facility] 01-12-2023 19:47-0400 Heart rate 74 /min Dr. Shalini Ferrari Work Phone: [facility] 01-12-2023 19:47-0400 Respiratory rate 14 /min Dr. Shalini Ferrari Work Phone: [facility] 01-12-2023 19:47-0400 SaO2% (BldA) [Mass fraction] 99 % Dr. Shalini Ferrari Work Phone: [facility] 01-12-2023 19:47-0400 Systolic blood pressure 120 mm[Hg] Dr. Shalini Ferrari Work Phone: [facility] 01-12-2023 14:15-0400 Body height 182.[address] Shalini Ferrari Work Phone: [facility] 01-12-2023 14:15-0400 Body mass index (BMI) [Ratio] 22.3 kg/m2 Dr. Shalini Ferrari Work Phone: [facility] 01-12-2023 14:15-0400 Body weight 74.[address] Shalini Ferrari Work Phone: [facility] 01-12-2023 13:19-0400 Body temperature 97.8 [degF] Dr. Shalini Ferrari Work Phone: [facility] 01-12-2023 13:19-0400 Diastolic blood pressure 78 mm[Hg] Dr. Shalini Ferrari Work Phone: [facility] 01-12-2023 13:19-0400 Heart rate 84 /min Dr. Shalini Ferrari Work Phone: [facility] 01-12-2023 13:19-0400 Respiratory rate 16 /min Dr. Shalini Ferrari Work Phone: [facility] 01-12-2023 13:19-0400 SaO2% (BldA) [Mass fraction] 98 % Dr. Shalini Ferrari Work Phone: [facility] 01-12-2023 13:19-0400 Systolic blood pressure 130 mm[Hg] Dr. Shalini Ferrari Work Phone: [facility] 10-17-2022 10:26-0500 Body mass index (BMI) [Ratio] 22.9 kg/m2 Dr. Shalini Ferrari Work Phone: [facility] 10-17-2022 10:26-0500 Body temperature 96.9 [degF] Dr. Shalini Ferrari Work Phone: [facility] 10-17-2022 10:26-0500 Body weight 76.[address] Shalini Ferrari Work Phone: [facility] 10-17-2022 10:26-0500 Diastolic blood pressure 70 mm[Hg] Dr. Shalini Ferrari Work Phone: [facility] 10-17-2022 10:26-0500 Heart rate 67 /min Dr. Shalini Ferrari Work Phone: [facility] 10-17-2022 10:26-0500 Respiratory rate 16 /min Dr. Shalini Ferrari Work Phone: [facility] 10-17-2022 10:26-0500 SaO2% (BldA) [Mass fraction] 100 % Dr. Shalini Ferrari Work Phone: [facility] 10-17-2022 10:26-0500 Systolic blood pressure 120 mm[Hg] Dr. Shalini Ferrari Work Phone: [facility] 07-17-2022 13:23-0400 Body height 182.[address] Shalini Ferrari Work Phone: [facility] Work Phone: 07-17-2022 13:23-0400 Body mass index (BMI) [Ratio] 22.5 kg/m2 Dr. Shalini Ferrari Work Phone: [facility] Work Phone: 07-17-2022 13:23-0400 Body temperature 96.5 [degF] Dr. Shalini Ferrari Work Phone: [facility] Work Phone: 07-17-2022 13:23-0400 Body weight 75.[address] Shalini Ferrari Work Phone: [facility] Work Phone: 07-17-2022 13:23-0400 Diastolic blood pressure 78 mm[Hg] Dr. Shalini Ferrari Work Phone: [facility] Work Phone: 07-17-2022 13:23-0400 Heart rate 50 /min Dr. Shalini Ferrari Work Phone: [facility] Work Phone: 07-17-2022 13:23-0400 Respiratory rate 16 /min Dr. Shalini Ferrari Work Phone: [facility] Work Phone: 07-17-2022 13:23-0400 SaO2% (BldA) [Mass fraction] 98 % Dr. Shalini Ferrari Work Phone: [facility] Work Phone: 07-17-2022 13:23-0400 Systolic blood pressure 122 mm[Hg] Dr. Shalini Ferrari Work Phone: [facility] Work Phone: Encounters Encounter Date Encounter Type Care Provider Facility Start: 05-03-2025 Encounter for genera l adult medical examination [facility] Start: 04-27-2025 End: 04-27-[address] Shalini Ferrari DO Work Phone: -Sleep Lab Start: 04-27-2025 End: 04-27-2025 TREASURY ANALYST Daysi Rodarte -Sleep Lab Work Phone: Start: 04-27-2025 End: 04-27-2025 ambulatory Daysi Rodarte Facility:[facility] Start: 04-20-2025 End: 04-20-[address] Shalini Ferrari DO Work Phone: -Radiology [facility] Start: 04-20-2025 End: 04-20-2025 TREASURY ANALYST Daysi Rodarte -Radiology [facility] Work Phone: Start: 04-20-2025 End: 04-20-2025 TREASURY ANALYST Daysi Rodarte -[facility] Work Phone: Start: 04-20-2025 End: 04-20-[address] Shalini Ferrari DO Work Phone: -[facility] Start: 04-20-2025 End: 04-20-2025 ambulatory Daysi Rodarte Facility:[facility] Start: 03-31-2025 End: 03-31-[address] Shalini Ferrari DO Work Phone: [facility] Work Phone: Start: 03-31-2025 End: 03-31-2025 TREASURY ANALYST Daysi Rodarte -Sleep Lab Work Phone: Start: 03-31-2025 End: 03-31-2025 ambulatory Shalini Ferrari Facility:[facility] Start: 03-26-2025 End: 03-26-2025 TREASURY ANALYST Daysi Rodarte -Laboratory Specimen Work Phone: Start: 03-26-2025 End: 03-26-2025 TREASURY ANALYST Daysi Rodarte -[facility] Work Phone: Start: 03-26-2025 End: 03-26-[address] Shalini Ferrari DO Work Phone: [facility] Work Phone: Start: 03-26-2025 End: 03-26-2025 ambulatory Shalini Ferrari Facility:[facility] Start: 03-16-2025 End: 03-16-[address] Shalini Ferrari DO Work Phone: [facility] Work Phone: Start: 03-16-2025 End: 03-16-2025 Dr. Guanakito Godinez MD -[facility] Start: 03-16-2025 End: 03-16-2025 ambulatory Shalini Ferrari Facility:[facility] Start: 03-12-2025 End: 03-12-[address] Shalini Ferrari DO Work Phone: [facility] Work Phone: Start: 03-12-2025 End: 03-12-2025 Fiona Chance TREASURY ANALYST-C -[facility] Work Phone: Start: 03-12-2025 End: 03-12-2025 ambulatory Shalini Ferrari Facility:[facility] Start: 03-10-2025 End: 03-10-2025 Dr. Shalini Cavazos DO -[facility] Work Phone: Start: 03-10-2025 End: 03-10-[address] Shalini Ferrari DO Work Phone: [facility] Work Phone: Start: 02-26-2025 End: 02-26-2025 TREASURY ANALYST Daysi Rodarte -[facility] Work Phone: Start: 02-26-2025 End: 02-26-[address] Shalini Ferrari DO Work Phone: [facility] Work Phone: Start: 02-24-2025 End: 02-24-2025 Dr. Shalini Cavazos DO -[facility] Work Phone: Start: 02-24-2025 End: 02-24-[address] Shalini Ferrari DO Work Phone: [facility] Work Phone: Start: 02-22-2025 End: 02-22-[address] Shalini Ferrari DO Work Phone: [facility] Work Phone: Start: 02-22-2025 End: 02-22-2025 TREASURY ANALYST Daysi Rodarte -[facility] Work Phone: Start: 02-22-2025 End: 02-22-2025 ambulatory Shalini Ferrari Facility:[facility] Start: 02-17-2025 End: 02-17-[address] Shalini Ferrari DO Work Phone: [facility] Work Phone: Start: 02-17-2025 End: 02-17-2025 Dr. Shalini Ferrari DO Work Phone: -Laboratory, [facility] Start: 02-17-2025 End: 02-17-2025 ambulatory Shalini Ferrari Facility:[facility] Start: 02-15-2025 ambulatory SHALINI FERRARI [facility] Start: 01-26-2025 End: 01-26-[address] Shalini Ferrari DO Work Phone: [facility] Work Phone: Start: 01-26-2025 End: 01-26-2025 Fiona ROLDANC -Laboratory Work Phone: Start: 01-26-2025 End: 01-26-2025 Fiona Chance NP-C -[facility] Work Phone: Start: 01-26-2025 End: 01-26-2025 ambulatory Shalini Ferrari [facility] Start: 01-26-2025 End: 01-26-2025 ambulatory Shalini Ferrari Facility:[facility] Start: 01-07-2025 End: 01-07-2025 REEMA Rodarte -Sleep Lab Work Phone: Start: 01-06-2025 End: 01-06-2025 Dr. Shalini Cavazos DO -[facility] Work Phone: Start: 01-06-2025 End: 01-07-2025 ambulatory Shalini Ferrari Facility:[facility] Start: 01-04-2025 ambulatory Shalini Ferrari Facilit y:[facility] Start: 01-04-2025 Perry Friend DO -[facility] Start: 01-04-2025 End: 01-04-2025 Perry Friend DO -Endoscopy Work Phone: Start: 01-04-2025 End: 01-04-[address] Shalini Ferrari DO Work Phone: [facility] Work Phone: Start: 01-01-2025 End: 01-01-[address] Shalini Ferrari DO Work Phone: [facility] Work Phone: Start: 01-01-2025 End: 01-01-2025 REEMA Rodarte -Sleep Lab Work Phone: Start: 01-01-2025 End: 01-01-2025 ambulatory Shalini Ferrari Facility:[facility] Start: 12-30-2024 End: 12-30-2024 Dr. Shalini Cavazos DO -[facility] Work Phone: Start: 12-30-2024 End: 12-30-2024 ambulatory Shalini Ferrari Facility[place] Start: 12-25-2024 End: 12-25-[address] Shalini Ferrari DO Work Phone: [facility] Work Phone: Start: 12-25-2024 End: 12-25-2024 Fiona ROSE -[facility] Work Phone: Start: 12-25-2024 End: 12-25-2024 ambulatory Shalini Ferrari Facility:[facility] Start: 12-22-2024 End: 12-22-[address] Shalini Ferrari DO Work Phone: [facility] Work Phone: Start: 12-22-2024 End: 12-22-2024 [facility] Work Phone: Start: 12-22-2024 End: 12-22-2024 ambulatory Shalini Ferrari Facility:[facility] Start: 12-11-2024 End: 12-11-2024 REEMA Rodarte [facility] Work Phone: Start: 12-11-2024 End: 12-11-2024 ambulatory Shalini Ferrari Facility[place] Start: 12-10-2024 End: 12-10-2024 Cj ROSE -[facility] Work Phone: Start: 12-10-2024 End: 12-10-2024 ambulatory Shalini R Brown Facility:[facility] Start: 11-27-2024 End: 11-27-2024 Fiona Chance NP-C -Laboratory Work Phone: Start: 11-27-2024 End: 11-27-2024 ambulatory Shalini R Brown Facility:[facility] Start: 11-25-2024 End: 11-25-2024 REEMA Rodarte -Sleep Lab Work Phone: Start: 11-25-2024 End: 11-25-2024 ambulatory Shalini R Brown Facility:[facility] Start: 11-20-2024 End: 11-20-2024 REEMA Rodarte -[facility] Work Phone: Start: 11-20-2024 End: 11-20-2024 ambulatory Shalini R Brown Facility:[facility] Start: 11-13-2024 End: 11-13-2024 Fiona ROLDANC -Laboratory, [place] Work Phone: Start: 11-13-2024 End: 11-13-2024 ambulatory Shalini R Brown Facility:[facility] Start: 11-10-2024 ambulatory Shalini R Brown Facilit y:[facility] Start: 11-09-2024 End: 11-09-2024 REEMA Rodarte -Sleep Lab Work Phone: Start: 11-09-2024 End: 11-09-2024 Fiona Chance NP-C -Laboratory Work Phone: Start: 11-09-2024 End: 11-09-2024 Fiona ROLDANC -[facility] Work Phone: Start: 11-09-2024 End: 11-09-2024 ambulatory Shalini R Brown [facility] Start: 11-09-2024 End: 11-09-2024 ambulatory Shalini R Brown Facility:[facility] Start: 10-30-2024 End: 10-30-2024 [facility] Work Phone: Start: 10-30-2024 End: 10-30-2024 ambulatory Shalini Ferrari Facility:[facility] Start: 10-20-2024 End: 10-20-2024 Dr. 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 (Primary Dx) Start: 09-30-2024 End: 09-30-2024 ambulatory DAVID VALDES JR Facility:[facility] Start: 09-25-2024 End: 09-25-2024 TREASURY ANALYST Daysi Rodarte [facility] Medicine Work Phone: Start: 09-25-2024 End: 09-25-2024 ambulatory Daysi Rodarte Facility:[facility] Start: 09-23-2024 End: 09-23-2024 ambulatory SHALINI FERRARI Facility:[facility] Start: 08-31-2024 ambulatory Sammy Ferrari Facility:[facility] Start: 08-28-2024 ambulatory Sammy Ferrari Facility:[facility] Start: 08-28-2024 End: 08-28-2024 ambulatory Dorie Jeter TREASURY ANALYST Facility:[facility] Start: 08-24-2024 End: 08-24-2024 ambulatory Dorie Jeter TREASURY ANALYST Facility:[facility] Start: 08-14-2024 End: 08-14-2024 ambulatory Dorie Jeter TREASURY ANALYST Facility:[facility] Start: 07-01-2024 End: 07-01-2024 ambulatory Shalini Ferrari Facility:[facility] Start: 07-01-2024 End: 07-01-2024 ambulatory Shalini R Brown Facility:[facility] Start: 06-25-2024 End: 06-25-2024 Patient encounter procedure David Valdes MD Work Phone: [facility] Comment on above: Benign prostatic hyp erplasia with urinary retention (Primary Dx); Encounter for screening for malignant neoplasm of prostate Start: 06-25-2024 End: 06-25-2024 ambulatory DAVID VALDES JR Facility:[facility] Start: 06-04-2024 End: 06-04-2024 Telephone encounter David Valdes MD Work Phone: [facility] Comment on above: Appointment Start: 06-03-2024 End: 06-04-2024 ambulatory DAVDI VALDES JR Facility:[facility] Start: 05-27-2024 Telephone encounter David Valdes MD Work Phone: [facility] Start: 05-21-2024 Telephone encounter David Valdes MD Work Phone: [facility] Comment on above: Results Start: 05-20-2024 End: 05-20-2024 [facility] Start: 05-20-2024 End: 05-20-2024 Preprocedural examination done Pst 1 [facility] Work Phone: Start: 05-20-2024 End: 05-20-2024 ambulatory DAVID VALDES JR Pre Surgical Testing Comment on above: Pre-op exam (Primary Dx); Benign prostatic hyperplasia with urinary retention; Chronic obstructive pulmonary disease, unspecified COPD type (HCC); Hypertension, unspecified type; Hyperlipidemia, unspecified hyperlipidemia type; Gastric ulcer without hemorrhage or perforation, unspecified chronicity Start: 05-19-2024 Encounter for other preprocedural examination DAVID VALDSE JR [facility] Start: 05-19-2024 Preprocedural examination done Pst 1 [facility] Start: 04-28-2024 End: 04-28-2024 ambulatory SHALINI [facility] Facility:[facility] Start: 04-28-2024 End: 04-28-2024 Nursing evaluation of patient and report Nurse [facility] Work Phone: Urology Comment on above: BPH with obstruction /lower urinary tract symptoms (Primary Dx) Start: 04-03-2024 ambulatory David elizabeth MD Work Phone: Urology Comment on above: Attn: Fiona hennessy Start: 03-30-2024 End: 03-30-2024 Patient encounter procedure David Valdes MD Work Phone: Urology Comment on above: Urine retention (Bobbi rafiq Dx); BPH with obstruction/lower urinary tract symptoms Start: 03-30-2024 End: 03-30-2024 ambulatory DAVID VALDES JR Facility:[facility] Start: 02-28-2024 End: 02-28-2024 Patient encounter procedure Proc [facility] Work Phone: Urology Comment on above: Urine retention (Bobbi rafiq Dx) Start: 02-28-2024 End: 02-28-2024 ambulatory NATALIA FERNANDO Facility:[facility] Start: 02-26-2024 Telephone encounter David Valdes MD Work Phone: [facility] Comment on above: Appointment Start: 02-25-2024 End: 02-25-2024 ambulatory SHALINI FERRARI Facility:[facility] Start: 02-25-2024 End: 02-25-2024 Nursing evaluation of patient and report Natalia Fernando PA-C Work Phone: Urology Comment on above: Urine retention (Bobbi rafiq Dx) Start: 02-10-2024 ambulatory Natalia King PA-C Work Phone: Urology Comment on above: VOIDING TRIAL PROTOC OL Start: 02-05-2024 End: 02-05-[address] Shalini Ferrari Work Phone: [facility] Work Phone: Start: 02-05-2024 End: 02-05-2024 Dr. Shalini Ferrari Work Phone: [facility]-Laboratory, [facility] Start: 02-05-2024 End: 02-05-2024 Dr. Shalini Ferrari Work Phone: [facility] Internal Medicine Work Phone: Start: 01-28-2024 End: 01-28-[address] Shalini Ferrari Work Phone: [facility] Work Phone: Start: 01-28-2024 End: 01-28-2024 Dr. Shalini Ferrari Work Phone: [facility] Start: 01-23-2024 End: 01-23-2024 Dr. Shalini Ferrari Work Phone: [facility] Pulmonary Medicine Work Phone: Start: 01-22-2024 Telephone encounter Natalia venegas PA-C Work Phone: Urology Comment on above: Disposal Operator - O ther Start: 01-22-2024 End: 01-22-2024 Dr. Shalini Ferrari Work Phone: [facility] Gastroenterology Work Phone: Start: 01-21-2024 End: 01-21-2024 ambulatory NATALIA KING Facility:[facility] Start: 01-21-2024 End: 01-21-2024 Patient encounter procedure Natalia King PA-C Work Phone: Urology Comment on above: Urine retention (Bobbi rafiq Dx) Start: 01-20-2024 Chart abstracting Naatlia swanson PA-C Work Phone: Urology Comment on above: Abstract Start: 01-14-2024 End: 01-18-2024 ambulatory PERRY HAYS DO Facility:[facility] Start: 01-14-2024 End: 01-18-2024 Outreach Lab PERRYReed HAYS DO [facility] Start: 01-14-2024 Telephone encounter Natalia MASTERS-C Work Phone: Urology Comment on above: Appointment; Request Outside Medical Records; Received Outside Medical Records Start: 01-13-2024 End: 01-13-[address] Shalini Ferrari Work Phone: [facility] Work Phone: Start: 01-13-2024 End: 01-13-2024 Dr. Shalini Ferrari Work Phone: [facility]-Laboratory Work Phone: Start: 01-13-2024 End: 01-13-2024 Dr. Shalini Ferrari Work Phone: [facility] Gastroenterology Work Phone: Start: 01-07-2024 End: 01-07-[address] Shalini Ferrari Work Phone: [facility] Work Phone: Start: 01-07-2024 End: 01-07-2024 Dr. Shalini Ferrari Work Phone: [facility] Work Phone: Start: 01-02-2024 Dr. Shalini amin Work Phone: [facility] Start: 01-02-2024 End: 01-02-[address] Shalini Ferrari Work Phone: [facility] Work Phone: Start: 01-02-2024 End: 01-02-2024 Dr. Shalini Ferrari Work Phone: [facility]-Endoscopy Work Phone: Start: 12-20-2023 End: 12-20-[address] Shalini Ferrari Work Phone: [facility] Work Phone: Start: 12-20-2023 End: 12-20-2023 Dr. Shalini Ferrari Work Phone: [facility]-Medical Out Work Phone: Start: 12-16-2023 End: 12-16-[address] Shalini Ferrari Work Phone: [facility] Work Phone: Start: 12-16-2023 End: 12-16-2023 Dr. Shalini Ferrari Work Phone: [facility] Start: 12-11-2023 Dr. Shalini Arias own Work Phone: [facility] Work Phone: Start: 12-11-2023 Dr. Shalini Arias own Work Phone: [facility] Start: 12-10-2023 Dr. Shalini Arias own Work Phone: [facility] Start: 12-09-2023 Dr. Shalini Arias own Work Phone: [facility] Start: 12-09-2023 Dr. Shalini Arias own Work Phone: [facility] Work Phone: Start: 12-08-2023 Dr. Shalini Arias own Work Phone: [facility] Start: 12-08-2023 Dr. Shalini Arias own Work Phone: [facility] Work Phone: Start: 12-07-2023 Dr. Shalini Arias own Work Phone: [facility] Work Phone: Start: 12-06-2023 Dr. Shalini Arias own Work Phone: [facility] Work Phone: Start: 12-05-2023 Dr. Shalini Arias own Work Phone: [facility] Work Phone: Start: 12-05-2023 Dr. Shalini Arias own Work Phone: [facility] Start: 12-04-2023 Dr. Shalini Arias own Work Phone: [facility] Work Phone: Start: 12-04-2023 Dr. Shalini amin Work Phone: [facility] Start: 12-03-2023 End: 12-11-2023 Evaluation and management of inpatient Dr. Shalini Ferrari Work Phone: [facility] Work Phone: Start: 12-03-2023 End: 12-11-2023 Dr. Shalini Ferrari Work Phone: [facility]-Intensive Care Unit Work Phone: Start: 11-20-2023 End: 11-20-[address] Shalini Ferrari Work Phone: [facility] Work Phone: Start: 11-20-2023 End: 11-20-[address] Shalini Ferrari Work Phone: [facility] Internal Medicine Work Phone: Start: 11-20-2023 End: 11-20-2023 Dr. Shalini Ferrari Work Phone: [facility] Medicine Work Phone: Start: 11-06-2023 End: 11-06-[address] Shalini Ferrari Work Phone: [facility] Work Phone: Start: 11-06-2023 End: 11-06-2023 Dr. Shalini Ferrari Work Phone: [facility] Work Phone: Start: 10-31-2023 End: 10-31-[address] Shalini Ferrari Work Phone: [facility] Work Phone: Start: 10-31-2023 End: 10-31-[address] Shalini Ferrari Work Phone: [facility]-Sleep Lab Work Phone: Start: 10-31-2023 End: 10-31-2023 Dr. Shalini Ferrari Work Phone: [facility]-Sleep Lab Work Phone: Start: 10-22-2023 End: 10-22-[address] Shalini Ferrari [facility] Work Phone: Start: 10-22-2023 End: 10-22-2023 Dr. Shalini Ferrari Work Phone: [facility] Work Phone: Start: 10-16-2023 End: 10-16-[address] Shalini Ferrari Work Phone: [facility] Work Phone: Start: 10-16-2023 End: 10-16-2023 Dr. Shalini Ferrari Work Phone: [facility] Work Phone: Start: 10-15-2023 Non-patient / Non-visit Dr. Arreaga Work Phone: [facility] Start: 10-15-2023 Dr. Shalini amin Work Phone: [facility] Start: 10-10-2023 End: 10-10-[address] Shalini Ferrari Work Phone: [facility] Work Phone: Start: 10-10-2023 End: 10-10-[address] [facility] Start: 10-10-2023 End: 10-10-2023 Dr. [facility]ini Ferrari [facility] Work [facility]: Start: 10-09-2023 Non-patient / Non-visit Dr. Arreaga Work Phone: [facility] Start: 10-09-2023 End: 10-09-2023 Admission to same day surgery center Dr. Shalini Ferrari Work Phone: [facility]-Endoscopy Work Phone: Start: 10-09-2023 End: 10-09-[address] Shalini Ferrari Work Phone: [facility] Work Phone: Start: 10-09-2023 End: 10-09-2023 Dr. Shalini Ferrari Work Phone: [facility] Start: 09-26-2023 End: 09-26-[address] Shalini Ferrari Work Phone: [facility] Work Phone: Start: 09-26-2023 End: 09-26-2023 Dr. Shalini Ferrari Work Phone: [facility] Work Phone: Start: 09-13-2023 End: 09-13-[address] Shalini Ferrari Work Phone: [facility] Work Phone: Start: 09-13-2023 End: 09-13-2023 Dr. Shalini Ferrari Work Phone: [facility] Work Phone: Start: 08-27-2023 End: 08-27-[address] Shalini Ferrari Work Phone: [facility] Work Phone: Start: 08-27-2023 End: 08-27-[address] Shalini Ferrari Work Phone: [facility]-Sleep Lab Work Phone: Start: 08-27-2023 End: 08-27-2023 Dr. Shalini Ferrari Work Phone: [facility]Sleep Lab Work Phone: Start: 08-20-2023 End: 08-20-[address] Shalini Ferrari Work Phone: [facility] Work Phone: Start: 08-20-2023 End: 08-20-2023 Dr. Shalini Ferrari Work Phone: [facility] Work Phone: Start: 08-14-2023 Non-patient / Non-visit Dr. Arreaga Work Phone: [facility] Start: 08-14-2023 Dr. Shalini amin Work Phone: [facility] Start: 08-13-2023 End: 08-13-[address] Shalini Ferrari Work Phone: [facility] Work Phone: Start: 08-13-2023 End: 08-13-[address] Shalini Ferrari Work Phone: [facility]Pulmonary Services/Neurology Work Phone: Start: 08-13-2023 End: 08-13-2023 Dr. Shalini Ferrari Work Phone: [facility]Pulmonary Services/Neurology Work Phone: Start: 08-01-2023 End: 08-01-[address] Shalini Ferrari Work Phone: [facility] Work Phone: Start: 07-18-2023 End: 07-18-[address] Shalini Ferrari Work Phone: [facility] Work Phone: Start: 07-08-2023 End: 07-08-[address] Shalini Ferrari Work Phone: [facility] Work Phone: Start: 06-20-2023 End: 06-20-[address] Shalini Ferrari Work Phone: [facility] Work Phone: Start: 05-27-2023 End: 05-27-[address] Shalini Ferrari Work Phone: [facility] Work Phone: Start: 05-27-2023 End: 05-27-[address] Shalini Ferrari Work Phone: [facility] Work Phone: Start: 05-20-2023 End: 05-20-[address] Shalini Ferrari Work Phone: [facility] Medicine Work Phone: Start: 05-16-2023 End: 05-16-[address] Shalini Ferrari Work Phone: [facility] Work Phone: Start: 04-29-2023 End: 04-29-[address] Shalini Ferrari Work Phone: [facility] Work Phone: Start: 04-29-2023 End: 04-29-[address] Shalini Ferrari Work Phone: [facility] Work Phone: Start: 04-29-2023 End: 04-29-2023 Dr. Shalini Ferrari Work Phone: [facility] Work Phone: Start: 04-17-2023 End: 04-17-[address] Shalini Ferrari Work Phone: [facility] Internal [facility] Work Phone: Start: 04-17-2023 End: 04-17-2023 Dr. Shalini Ferrari Work Phone: [facility] Internal [facility] Work Phone: Start: 04-03-2023 End: 04-03-[address] Shalini Ferrari Work Phone: [facility] Internal [facility] Work Phone: Start: 04-03-2023 End: 04-03-2023 Dr. Shalini Ferrari Work Phone: [facility] Internal [facility] Work Phone: Start: 03-26-2023 End: 03-26-[address] Shalini Ferrari Work Phone: [facility] Internal [facility] Work Phone: Start: 03-26-2023 End: 03-26-2023 Dr. Shalini Ferrari Work Phone: [facility] Work Phone: Start: 02-12-2023 End: 02-12-[address] Shalini Ferrari Work Phone: [facility] Internal [facility] Work Phone: Start: 02-12-2023 End: 02-12-2023 Dr. Shalini Ferrari Work Phone: [facility] Internal [facility] Work Phone: Start: 01-28-2023 End: 01-30-2023 Observation DANIELE SHEARER [facility] Start: 01-24-2023 End: 01-24-2023 Dr. Shalini Ferrari Work Phone: [facility] Internal Medicine Work Phone: Start: 01-16-2023 Non-patient / Non-visit Dr. Arreaga Work Phone: [facility] Start: 01-16-2023 Dr. Shalini Arias own Work Phone: [facility] Work Phone: Start: 01-15-2023 Non-patient / Non-visit Dr. Arreaga Work Phone: [facility] Start: 01-15-2023 Dr. Shalini Arias own Work Phone: [facility] Work Phone: Start: 01-14-2023 End: 01-16-2023 Evaluation and management of inpatient Dr. Shaliin Ferrari Work Phone: [facility] 3 Start: 01-14-2023 End: 01-16-2023 Dr. Shalini Ferrari Work Phone: [facility] 3 Work Phone: Start: 01-12-2023 End: 01-12-2023 Emergency department patient visit Dr. Shalini Ferrari Work Phone: [facility]Emergency Department Start: 01-12-2023 End: 01-12-2023 Dr. Shalini Ferrari Work Phone: [facility]Emergency Department Work Phone: Start: 01-12-2023 End: 01-12-[address] Shalini Ferrari Work Phone: [facility] Start: 01-12-2023 End: 01-12-2023 Dr. Shalini Ferrari Work Phone: [facility] Work Phone: Start: 12-20-2022 End: 12-20-[address] Shalini Ferrari Work Phone: [facility] Start: 11-22-2022 End: 11-22-[address] Shalini Ferrari Work Phone: [facility] Start: 10-22-2022 End: 10-22-[address] Shalini Ferrari Work Phone: [facility] Start: 10-17-2022 End: 10-17-[address] Shalini Ferrari Work Phone: [facility] Start: 09-19-2022 End: 09-19-[address] Shalini Ferrari Work Phone: [facility] Start: 07-17-2022 End: 07-17-[address] Shalini Ferrari Work Phone: [facility] Work Phone: Start: 07-17-2022 End: 07-17-[address] Shalini Ferrari Work Phone: [facility] Start: 07-05-2022 End: 07-05-2022 ambulatory [facility] Work Phone: Start: 07-05-2022 End: 07-05-2022 Patient encounter procedure [facility] Procedures Date Procedure Procedure Detail Performing Clinician Start: 04-20-2025 X-ray of chest, PA and lateral views Dr. Shalini Ferrari DO Work Phone: Start: 03-26-[address] Shalini Ferrari DO Work Phone: Start: 03-26-[address] Codie Ferrari DO Work Phone: Start: 03-16-2025 Blood count smear mcrscp w/mnl difrntl wbc count Dr. Shalini Ferrari DO Work Phone: Start: 03-16-2025 Mean corpuscular hemoglobin concentration determination Dr. Shalini Ferrari DO Work Phone: Start: 03-16-2025 Nucleated red blood cell count procedure Dr. Shalini Ferrari DO Work Phone: Start: 03-16-2025 Platelet mean volume determination Dr. Erika Ferrari DO Work Phone: Start: 03-12-2025 MRI of abdomen with contrast Dr. Shalini Ferrari DO Work Phone: Start: 02-22-2025 CT of chest without contrast Dr. Shalini Ferrari DO Work Phone: Start: 02-17-[address] Shalini Ferrari DO Work Phone: Start: 01-26-2025 Blood count smear mcrscp w/mnl difrntl wbc count Dr. Shalini Ferrari DO Work Phone: Start: 01-26-[address] Jitendra Ferrari DO Work Phone: Start: 01-26-2025 Mean corpuscular hemoglobin concentration determination Dr. Shalini Ferrari DO Work Phone: Start: 01-26-2025 Nucleated red blood cell count procedure Dr. Shalini Ferrari DO Work Phone: Start: 01-26-2025 Platelet mean volume determination Dr. Erika Ferrari DO Work Phone: Start: 01-26-2025 Total iron binding capacity measurement Dr. Shalini Ferrari DO Work Phone: Start: 01-04-[address] Shalini Ferrari DO Work Phone: Start: 12-25-2024 MRI of small intestine Dr. Shalini Ferrari DO Work Phone: Start: 11-27-2024 Albumin/Globulin ratio Dr. Shalini Ferrari DO Work Phone: Start: 11-27-[address] Shalini Ferrari DO Work Phone: Start: 11-27-2024 Blood count smear mcrscp w/mnl difrntl wbc count Dr. Shalini Ferrari DO Work Phone: Start: 11-27-2024 BUN/Creatinine ratio Dr. Shalini Ferrari DO Work Phone: Start: 11-27-2024 Mean corpuscular hemoglobin concentration determination Dr. Shalini Ferrari DO Work Phone: Start: 11-27-2024 Measurement of C-reactive protein using high sensitivity technique Dr. Shalini Ferrari DO Work Phone: Start: 11-27-2024 Measurement of renal function Dr. Codie Ferrari DO Work Phone: Start: 11-27-2024 Nucleated red blood cell count procedure Dr. Shalini Ferrari DO Work Phone: Start: 11-27-2024 Platelet mean volume determination Dr. Erika Ferrari DO Work Phone: Start: 11-20-2024 CT of chest without contrast Dr. Shalini Ferrari DO Work Phone: Start: 11-09-[address] Shalini Ferrari DO Work Phone: Start: 11-09-[address] Shalini Ferrari DO Work Phone: Start: 11-09-2024 Antibody to centromere measurement Dr. Erika Ferrari DO Work Phone: Start: 11-09-2024 Antibody to extractable nuclear antigen measurement Dr. Shalini Ferrari DO Work Phone: Start: 11-09-2024 Antibody to PARMJIT-[address] Shalini Ferrari DO Work Phone: Start: 11-09-2024 Antibody to lupus La protein measurement Dr. Shalini Ferrari DO Work Phone: Start: 11-09-2024 Antibody to SS-A measurement Dr. Shalini Ferrari DO Work Phone: Start: 11-09-[address] Shalini garnett DO Work Phone: Start: 11-09-[address] Jitendra Ferrari DO Work Phone: Start: 11-09-2024 PERSONNEL PSYCHOLOGIST antibody measurement Dr. Shalini garnett DO Work Phone: Start: 09-30-2024 Urnls dip stick/tablet rgnt auto w/o microscopy David Valdes MD Work Phone: Start: 06-25-2024 Urnls dip stick/tablet rgnt auto w/o microscopy David Valdes MD Work Phone: Start: 01-28-2024 End: 01-28-2024 Positron emission tomography with computed tomography Dr. Shalini Ferrari Work Phone: Start: 01-07-2024 CT angiography of chest with contrast Dr. Shalini Ferrari Work Phone: Start: 01-07-[address] Shalini Ferrari Work Phone: Start: 01-02-[address] Shalini renteria Work Phone: Start: 12-10-2023 Rad[address] emptying study Dr. Shalini Ferrari Work Phone: Start: 12-09-[address] Shalini renteria Work Phone: Start: 12-07-2023 Investigation of transfusion reaction Dr. Shalini Ferrari Work Phone: Start: 12-07-2023 Measurement of occult blood in stool specimen using immunoassay Dr. Shalini Ferrari Work Phone: Start: 12-07-[address] Codie Ferrari Work Phone: Start: 12-03-2023 CT of abdomen and pelvis without contrast Dr. Shalini Ferrari Work Phone: Start: 12-03-[address] Shalini Ferrari Work Phone: Start: 10-10-2023 Cardiovascular stress test using pharmacologic stress agent Dr. Shalini Ferrari Work Phone: Start: 10-09-[address] Shalini Ferrari Work Phone: Start: 07-08-[address] Shalini Ferrari Work Phone: Start: 05-27-2023 CT of head without contrast Dr. Shalini Ferrari Work Phone: Start: 04-29-2023 CT of thorax with contrast Dr. Shalini renteria Work Phone: Start: 01-15-[address] Jesus Alberto Ferrari Work Phone: Start: 01-15-[address] Shalini Ferrari Work Phone: Start: 01-14-2023 CT of head without contrast Dr. Shalini Ferrari Work Phone: Start: 01-14-2023 Dr. Shalini Ferrari Work Phone: Start: 01-12-2023 Computed tomography of abdomen and pelvis with contrast Dr. Shalini Ferrari Work Phone: Start: 07-05-2022 CT of chest Start: 11-16-2013 Colonoscopy Natalia King PA-C Work Phone: Start: 11-14-2012 Lipid 1996 panel - Serum or Plasma Hubert King PA-Marilia Work Phone: Clostridium difficile detection Dr. Shalini Ferrari Work Phone: Clostridium difficile detection Dr. Shalini Ferrari Work Phone: Empyema (disorder) DANIELE HAYWOOD CIVIL DEFENSE DIRECTOR-[employer] CUSTODIAN Enteric Bacteriology Dr. Fabricio Ferrari Work Phone: Respiratory Panel (PCR) Dr. Shalini Ferrari Work Phone: Plan of Treatment Date Care Activity Detail Author Start: 04-01-2034 Urine microalbumin profile DTa P,Tdap,Td Vaccine (2 - Td or Tdap) [facility] Start: 06-04-2027 Diabetes Screening Diabetes Screenin [facility] Start: 02-04-2026 Diabetes Screening Diabetes Screenin [facility] Start: 05-24-2025 ambulatory Facility:[facility] Start: 05-20-2025 BP Controlled (<130/80) BP Controlle d (<130/80) [facility] Start: 03-31-2025 [facility] Start: 03-25-2025 [facility] Start: 02-17-2025 Procedure [facility] Start: 01-04-2025 Colonoscopy w/biopsy single/multiple [facility] Start: 01-04-2025 Colsc flexible w/con trol bleeding any method [facility] Start: 01-04-2025 Colsc flx w/rmvl of tumor polyp lesion snare tq [facility] Start: 01-04-2025 Patient discharge [facility] Start: 12-30-2024 Patient referral [facility] Work Phone: Start: 12-22-2024 [facility] Start: 09-30-2024 End: 09-30-2024 Patient encounter procedure 09/30/2024 1:00 PM EST Office Visit [facility] [address] [id number] David Valdes Jr., MD [address] [place] [address] 3 month follow up, psa prior [facility] Comment on above: 3 month follow up, p sa prior Start: 09-24-2024 End: 12-24-2024 PSA/PROSTATE SPECIFIC ANTIGEN SCREENING PSA/PROSTATE SPECIFIC ANTIGEN SCREENING Lab Routine Benign prostatic hyperplasia with urinary retention Encounter for screening for malignant neoplasm of prostate Expected: 09/24/2024, Expires: 12/24/2024 [facility] Work Phone: Comment on above: Expected: 09/24/2024 , Expires: 12/24/2024 Start: 06-25-2024 End: 06-25-2024 Patient encounter procedure 06/25/2024 1:00 PM EDT Office Visit [facility] [address] [place] [address] David Valdes Jr., MD [address] [place] [address] post-op [facility] Comment on above: post-op Start: 06-14-2024 Covid-19 Vaccine ( season) Covid-19 Vaccine ( season) [facility] Start: 06-14-2024 Influenza vaccination [facility] Start: 06-03-2024 End: 06-03-2024 [facility] Comment on above: CYSTOSCOPY, RESECTIO N PROSTATE TRANSURETHRAL Start: 06-03-2024 Subsequent hospital visit by physician 06/03/2024 9:30 AM EDT Hospital Encounter [facility] [address] [place] [address] David Valdes Jr., MD [address] [place] [address] Benign prostatic hyperplasia with urinary retention [N40.1, R33.8] [facility] Comment on above: Benign prostatic hyp erplasia with urinary retention [N40.1, R33.8] Start: 06-03-2024 End: 06-03-2024 Trurl electrosurg rescj prostate bleed complete CYSTOSCOPY, RESECTION PROSTATE TRANSURETHRAL Benign prostatic hyperplasia with urinary retention 06/03/2024 9:30 AM EDT [facility] Start: 05-20-2024 End: 05-20-2024 ambulatory 05/20/2024 1:40 PM EDT PAT Pre Surgical Testing [address] [place] [address] CYSTOSCOPY, RESECTION PROSTATE TRANSURETHRAL W/ DR VALDES ON 06/03/2024- Pre Surgical Testing Comment on above: CYSTOSCOPY, RESECTIO N PROSTATE TRANSURETHRAL W/ DR VALDES ON 06/03/2024- Start: 04-28-2024 End: 04-28-2024 Nursing evaluation of patient and report 04/28/2024 2:40 PM EDT Nurse Visit Urology [address] [place] [id number] Wstr, Nurse Urol [facility] [address] [place] [id number] [facility]athe[facility] Urology Comment on above: Catheter Change Start: 03-31-2024 End: 03-31-2024 Nursing evaluation of patient and report 03/31/2024 1:40 PM EDT Nurse Visit Urology [address] [place] [address] Wstr, Nurse Urol [facility] [address] [place] [id number] [facility] Urology Comment on above: Catheter Change Start: 03-30-2024 End: 03-30-2024 Patient encounter procedure 03/30/2024 10:30 AM EDT Office Visit Urology [address] [place] [id number] David Valdes Jr., MD [address] [place] [address] cysto/trus/uds prior (02/27)ref by Eunice King Urology Comment on above: cysto/trus/uds prior (02/27)ref by Eunice King Start: 02-28-2024 End: 02-28-2024 Patient encounter procedure 02/28/2024 1:00 PM EDT Office Visit Urology [address] [place] [address] [facility], Proc [address] [place] [address] [facility] Comment on above: [facility] Start: 02-25-2024 End: 02-25-2024 Nursing evaluation of patient and report 02/25/2024 1:40 PM EDT Nurse Visit Urology [address] [place] [address] Wstr, Nurse Urol [facility] [address] [place] [id number] Catheter Change Urology Comment on above: Catheter Change Start: 01-15-2024 Elastase.pancreatic [Presence] in Stool [facility] Start: 01-15-2024 Giardia lamblia Ag [Presence] in Stool by Immunoassay [facility] Start: 01-15-2024 Protein measurement [facility] Start: 01-13-2024 Angiotensin converti ng enzyme [Enzymatic activity/volume] in Serum or Plasma [facility] Start: 01-13-2024 Celiac disease screen [facility] Start: 01-13-2024 Haptoglobin [Mass/vo lume] in Serum or Plasma [facility] Start: 01-13-2024 IgE [Units/volume] i n Serum or Plasma [facility] Start: 01-13-2024 In-vitro immunologic test [facility] Start: 01-13-2024 Serum immunofixation [facility] Start: 01-13-2024 [facility] Start: 01-02-2024 Egd transoral biopsy single/multiple [facility] Start: 01-02-2024 Patient discharge [facility] Start: 12-20-2023 Administration of bl ood product [facility] Start: 12-20-2023 [facility] Start: 12-11-2023 Patient discharge [facility] Start: 12-09-2023 Antibody to gastric parietal cell measurement [facility] Start: 12-09-2023 Serum immunofixation [facility] Start: 12-09-2023 End: 12-09-2023 [facility] Start: 12-09-2023 Administration of bl ood product [facility] Start: 12-08-2023 Referral to gastroenterology service [facility] Start: 12-04-2023 [facility] Start: 12-03-2023 Following clinical p athway protocol [facility] Start: 12-03-2023 Bacterial nucleic ac id assay [facility] Start: 12-03-2023 Streptococcus pneumo niae antigen assay [facility] Start: 12-03-2023 Assessment of risk o f venous thromboembolism [facility] Start: 12-03-2023 Bacteria identified in Sputum by Culture [facility] Start: 12-03-2023 Consultation [facility] Start: 12-03-2023 Continuous pulse oximetry [facility] Start: 12-03-2023 Elevation of head of bed [facility] Start: 12-03-2023 Fall prevention [facility] Start: 12-03-2023 Incentive spirometry [facility] Start: 12-03-2023 Inhalation therapy procedure [facility] Start: 12-03-2023 Insertion of cathete r into peripheral vein [facility] Start: 12-03-2023 Introduction of urin will catheter [facility] Start: 12-03-2023 Measuring intake and output [facility] Start: 12-03-2023 Methicillin resistan t Staphylococcus aureus screening test [facility] Start: 12-03-2023 Oxygen therapy [facility] Start: 12-03-2023 Patient referral to dietitian [facility] Start: 12-03-2023 Providing care accor ding to standard [facility] Start: 12-03-2023 Provision of activit y privileges [facility] Start: 12-03-2023 Referral to spinner box [facility] Start: 12-03-2023 Referral to occupati onal therapist [facility] Start: 12-03-2023 Referral to service [facility] Start: 12-03-2023 Taking nasal swab [facility] Start: 12-03-2023 Vital signs measurements [facility] Start: 12-03-2023 Vitamin B12 measurement [facility] Start: 12-03-2023 End: 12-04-2023 [facility] Start: 12-03-2023 End: 12-03-2023 Blood chemistry [facility] Start: 12-03-2023 Verification routine [facility] Start: 12-03-2023 Admission procedure [facility] Start: 12-03-2023 Patient referral to dietitian [facility] Start: 11-16-2023 Screening for malign ant neoplasm of colon [facility] Start: 10-14-2023 Advance Directive Discussion Advance Directive Discussion [facility] Start: 10-14-2023 Behavioral Health Screening Behavioral Health Screening [facility] Start: 10-09-2023 Colonoscopy w/biopsy single/multiple [facility] Start: 10-09-2023 Egd transoral biopsy single/multiple [facility] Start: 10-09-2023 Patient discharge [facility] Start: 09-13-2023 Patient referral [facility] Work Phone: Start: 06-14-2023 Covid-19 Vaccine ( season) Covid-19 Vaccine () [facility] Start: 06-14-2023 Covid-19 Vaccine () Covid-19 Vaccine () [facility] Start: 01-16-2023 Patient discharge [facility] Start: 01-14-2023 Following clinical p athway protocol [facility] Start: 01-14-2023 Assessment of risk o f venous thromboembolism [facility] Start: 01-14-2023 Enteric precautions [facility] Start: 01-14-2023 Fall prevention [facility] Start: 01-14-2023 Inhalation therapy procedure [facility] Start: 01-14-2023 Insertion of cathete r into peripheral vein [facility] Start: 01-14-2023 Introduction of urin will catheter [facility] Start: 01-14-2023 Measuring intake and output [facility] Start: 01-14-2023 Oxygen therapy [facility] Start: 01-14-2023 Providing care accor ding to standard [facility] Start: 01-14-2023 Provision of activit y privileges [facility] Start: 01-14-2023 Referral to occupati onal therapist [facility] Start: 01-14-2023 Referral to service [facility] Start: 01-14-2023 [facility] Start: 01-14-2023 Admission procedure [facility] Start: 01-14-2023 Patient referral to dietitian [facility] Start: 01-12-2023 Emergency department visit low/moder severity [facility] Start: 01-12-2023 Iv infusion hydratio n each additional hour [facility] Start: 01-12-2023 Ther proph/dx njx iv push single/1st sbst/drug [facility] Start: 10-25-2022 Pneumococcal Vaccine : 50+ (2 of 2 - PCV) Pneumococcal Vaccine: 50+ (2 of 2 - PCV) [facility] Start: 10-25-2022 Pneumococcal Vaccine : 65+ (2 of 2 - PCV) Pneumococcal Vaccine: 65+ (2 of 2 - PCV) [facility] Start: 11-14-2017 Lipid panel Lipid Screening [facility] Start: 2015 Pneumococcal Vaccine : 65+ (2 of 2 - PCV) Pneumococcal Vaccine: 65+ (2 of 2 - PCV) [facility] Start: 2010 RSV Vaccine (1 - 1-d ose 60+ series) RSV Vaccine (1 - 1-dose 60+ series) [facility] Start: 2000 Screening for malign ant neoplasm of lung Lung Cancer Screening [facility] Start: 2000 Shingrix Vaccine (1 of 2) Palma grix Vaccine (1 of 2) [facility] Start: 1995 Screening for malign ant neoplasm of colon [facility] Start: 1980 Zoledronic acid therapy Alpha- 1 Antitrypsin Deficiency Screening [facility] Start: 1969 Urine microalbumin profile DTa P,Tdap,Td Vaccine (1 - Tdap) [facility] Start: 1968 Annual PCP Team Esthetics Instructor mariana Disease Visit Annual PCP Team Chronic Disease Visit [facility] Start: 1968 Anxiety Screening Anxiety Screening [facility] Start: 1968 BP Controlled (<130/80) BP Controlle d (<130/80) [facility] Start: 1968 Hepatitis C screening Hepatitis C Sc falguni [facility] Start: 1968 Spirometry Spirometry [facility] Start: 1950 Abdominal aortic ane urysm screening Abdominal Aortic Aneurysm Screening [facility] Alanine aminotransfe rase [Enzymatic activity/volume] in Serum or Plasma [facility] Albumin [Mass/volume ] in Serum or Plasma [facility] Albumin [Moles/volum e] in Serum or Plasma [facility] Albumin [Moles/volum e] in Serum or Plasma [facility] Albumin/Globulin ratio [facility] Albumin/Globulin ratio [facility] Alkaline phosphatase [Enzymatic activity/volume] in Serum or Plasma [facility] Anion gap measurement [facility] Anion gap measurement [facility] Antibody to gastric parietal cell measurement [facility] Aspartate aminotrans ferase [Enzymatic activity/volume] in Serum or Plasma [facility] Bacteria identified in Sputum by Culture [facility] Bacteria identified in Urine by Culture URINE CULTURE Microbiology Routine Benign prostatic hyperplasia with urinary retention Ordered: 06/25/2024 [facility] Comment on above: Ordered: 06/25/2024 Basic metabolic 2008 panel with ionized calcium - Serum or Plasma [facility] Bilirubin, total measurement [facility] BUN/Creatinine ratio [facility] BUN/Creatinine ratio [facility] Calcium [Mass/volume ] in Serum or Plasma [facility] Calcium [Mass/volume ] in Serum or Plasma [facility] Carbon dioxide, tota l [Moles/volume] in Serum or Plasma [facility] Carbon dioxide, tota l [Moles/volume] in Serum or Plasma [facility] End: 01-20-2025 CATHETER INSERT-ROCHA CATHETER INSERT-ROCHA Procedures Routine Urine retention 99 Occurrences starting 01/21/2024 until 01/20/2025 [facility] Work Phone: Comment on above: 99 Occurrences start ing 01/21/2024 until 01/20/2025 CBC W Auto Different ial panel - Blood [facility] Chloride [Moles/volu me] in Serum or Plasma [facility] Chloride [Moles/volu me] in Serum or Plasma [facility] Colonoscopy [facility] Continuous pulse oximetry [facility] Creatinine [Mass/vol ume] in Urine collected for unspecified duration [facility] Creatinine [Moles/vo lume] in Serum or Plasma [facility] Creatinine [Moles/vo lume] in Serum or Plasma [facility] CT Chest [facility] CT Chest [facility] CT Chest WO contrast [facility] CTA Chest vessels WO and W contrast IV [facility] CYSTO/TRUS ONLY CYSTO/TRUS ONLY Procedures Routine Urine retention Ordered: 02/25/2024 [facility] Comment on above: Ordered: 02/25/2024 Elastase.pancreatic [Presence] in Stool [facility] Electrophoresis: [id number] [facility] Electrophoresis: [id number] [facility] Electrophoresis: [place] ma globulin [facility] Electrophoresis: [place] ma globulin [facility] Erythrocyte mean corpuscular volume determination [facility] Ferritin [Mass/volum e] in Serum or Plasma [facility] Folate [Mass/volume] in Serum or Plasma [facility] Folate [Moles/volume ] in Serum or Plasma [facility] Gastrin [Mass/volume ] in Serum or Plasma [facility] Giardia lamblia Ag [Presence] in Stool by Immunoassay [facility] Gliadin peptide IgA Ab [Units/volume] in Serum [facility] Gliadin peptide IgG Ab [Units/volume] in Serum [facility] Globulin measurement [facility] Globulin measurement [facility] Glucose [Mass/volume ] in Serum or Plasma [facility] Glucose [Mass/volume ] in Serum or Plasma [facility] Hematocrit [Volume Fraction] of Blood [facility] Hemoglobin [Mass/vol ume] in Blood [facility] IgA [Mass/volume] in Serum or Plasma [facility] IgA [Mass/volume] in Serum or Plasma [facility] IgG [Mass/volume] in Serum or Plasma [facility] IgG [Mass/volume] in Serum or Plasma [facility] IgM [Mass/volume] in Serum or Plasma [facility] IgM [Mass/volume] in Serum or Plasma [facility] Intrinsic factor blo cking Ab [Units/volume] in Serum [facility] Iron [Mass/mass] in Unspecified specimen [facility] Iron and Iron bindin g capacity panel - Serum or Plasma [facility] Iron saturation [Mas s Fraction] in Serum or Plasma [facility] Legionella pneumophi la Ag [Presence] in Urine [facility] Leukocytes [#/volume ] in Blood [facility] Mean corpuscular hemoglobin concentration determination [facility] Mean corpuscular hemoglobin determination [facility] Measurement of immunoglobulin A in serum specimen [facility] Measurement of renal function [facility] Measurement of renal function [facility] MR Abdomen WO and W contrast IV [facility] Mycobacterium tuberc ulosis tuberculin stimulated gamma interferon [Presence] in Blood [facility] Neutrophil count [facility] Neutrophil cytoplasm ic Ab.classic [Units/volume] in Serum [facility] Neutrophil cytoplasm ic Ab.classic [Units/volume] in Serum [facility] Neutrophil percent differential count [facility] P-ANCA measurement [facility] P-ANCA measurement [facility] Patient Education [facility] Work Phone: Patient referral [facility] Work Phone: Platelets [#/volume] in Blood [facility] Potassium [Moles/vol ume] in Serum or Plasma [facility] Potassium [Moles/vol ume] in Serum or Plasma [facility] Protein electrophore sis panel - Serum or Plasma [facility] Protein electrophore sis panel - Serum or Plasma [facility] Protein measurement [facility] Red blood cell count [facility] Red cell distributio n width determination [facility] Respiratory pathogen s DNA and RNA panel - Respiratory specimen by LAUREN with probe detection [facility] Sodium [Moles/volume ] in Serum or Plasma [facility] Sodium [Moles/volume ] in Serum or Plasma [facility] Sodium [Moles/volume ] in Urine [facility] Tissue transglutamin ase IgA Ab [Units/volume] in Serum [facility] Tissue transglutamin ase IgA Ab [Units/volume] in Serum [facility] Tissue transglutamin ase IgG Ab [Units/volume] in Serum [facility] Total protein measurement [facility] Urea nitrogen [Mass/volume] in Serum or Plasma [facility] Urea nitrogen [Mass/volume] in Serum or Plasma [facility] URODYNAMICS URODYNAMICS Proc edures Routine Urine retention Ordered: 02/25/2024 [facility] Work Phone: Comment on above: Ordered: 02/25/2024 [facility] US Prostate transrectal US TRANS RECTAL PROSTATE (TRUS) (POC) [facility] USE ONLY Imaging Diagnostic Routine Urine retention Ordered: 03/30/2024 [facility] Work Phone: Comment on above: Ordered: 03/30/2024 VOIDING TRIAL PROTOCOL VOIDING T RIAL PROTOCOL Procedures Routine Urine retention Ordered: 01/21/2024 [facility] Work Phone: Comment on above: Ordered: 01/21/2024 XR Chest [facility] Lateral [facility] Immunizations Immunization Date Immunization Notes Care Provider Fa cility 07-29-2024 Covid (Spikevax) Dr. Shalini Ferrari DO Work Phone: [facility] 07-06-2024 RSV Adult Recombinan t (Arexvy) Dr. Shalini Ferrari DO Work Phone: [facility] 07-01-2024 influenza, injectabl e, quadrivalent, preservative free Dr. Shalini Ferrari DO Work Phone: [facility] 04-01-2024 tetanus toxoid, redu [place] diphtheria toxoid, and acellular pertussis vaccine, adsorbed Dr. Shalini Ferrari DO Work Phone: [facility] 08-20-2023 influenza, injectabl e, quadrivalent, preservative free Dr. Shalini Ferrari Work Phone: [facility] 08-20-2023 influenza virus vacc ine, unspecified formulation Nurse Wstr Work Phone: [facility] 10-25-2021 pneumococcal polysaccharide vaccine, 23 valent [facility] 10-13-2021 zoster vaccine recombinant DANIELE JANESHILPA CIVIL DEFENSE DIRECTOR-[employer] CUSTODIAN [facility] 10-11-2021 zoster vaccine recombinant [facility] 09-24-2021 Covid (Pfizer) [facility] 09-14-2021 SARS-CoV-2 mRNA (tozinameran) vaccine DANIELE VORA CIVIL DEFENSE DIRECTOR-[employer] CUSTODIAN [facility] 08-09-2021 zoster vaccine recombinant DANIELE JANETJN CIVIL DEFENSE DIRECTOR-[employer] CUSTODIAN [facility] 07-26-2021 influenza, injectabl e, quadrivalent, preservative free Dr. Shalini Ferrari Work Phone: [facility] 07-26-2021 influenza, seasonal, injectable [facility] 01-13-2021 Covid (Pfizer) [facility] 12-23-2020 Covid (Pfizer) [facility] Comment on above: Result Comment: 2022: [id number] 07-15-2019 influenza, injectabl e, quadrivalent, preservative free Dr. Shalini Ferrari Work Phone: [facility] 07-15-2019 influenza, seasonal, injectable [facility] 09-02-2018 influenza virus vacc ine, unspecified formulation DANIELEGUMARO LARASHILPA CIVIL DEFENSE DIRECTOR-[employer] CUSTODIAN [facility] 08-05-2017 influenza virus vacc ine, unspecified formulation DANIELE JANENEN [employer]IVIL DEFENSE DIRECTOR[employer] CUSTODIAN [facility] 07-17-2017 influenza virus vacc ine, unspecified formulation DANIELE JANENEN CIVIL DEFENSE DIRECTOR-RIDING [employer]ILKS CUSTODIAN [facility] 07-17-2016 influenza virus vacc ine, unspecified formulation DANIELE JANENEN CIVIL DEFENSE DIRECTOR-[employer]ING [employer] CUSTODIAN [facility] 07-08-2016 influenza virus vacc ine, unspecified formulation DANIELE JANENEN CIVIL DEFENSE DIRECTOR-[employer] CUSTODIAN [facility] 07-26-2015 influenza virus vacc ine, unspecified formulation DANIELE JANENEN CIVIL DEFENSE DIRECTOR-[employer] CUSTODIAN [facility] 12-10-2013 pneumococcal polysaccharide vaccine, 23 valent DANIELEGUMARO LARANEN CIVIL DEFENSE DIRECTOR-[employer]ING [employer] CUSTODIAN [facility] 06-14-2005 pneumococcal polysaccharide vaccine, 23 valent Natalia King PA-C Work Phone: [facility] Payers Date Payer Category Payer Self-pay [id number] 2015 Medicare MEDICARE MEDICAR E A AND B [id number] 2015-Present [phone] [address] [address] [place] [address] Medicare [id number] 2015 Medicare [id number] 2013 Medicaid MEDICAID [facility] MEDICAID [id number] 2013-Present [phone] [address] [place] [address] Medicaid [id number] 2013 Medicaid [id number] 1950 Unknown [id number] 2.16.840.1.740551.3.579.2.479 Unknown [id number] 2.16.840.1.522732.3.579.2.627 Unknown [id number] 2.16.840.1.628390.3.579.2.462 Unknown [id number] 2.16.840.1.460280.3.579.2.462 Unknown [id number] 2.16.840.1.588309.3.579.2.462 Unknown [id number] 2.16.840.1.187944.3.579.2.462 Unknown [id number] 2.16.840.1.052395.3.579.2.462 Unknown [id number] 2.16.840.1.860565.3.579.2.462 Unknown [id number] 2.16.840.1.166619.3.579.2.462 Unknown [id number] 2.16.840.1.645554.3.579.2.462 Unknown [id number] 2.16.840.1.392994.3.579.2.462 Unknown [id number] 2.16.840.1.362702.3.579.2.462 Unknown [id number] 2.16.840.1.265098.3.579.2.462 Unknown [id number] 2.16.840.1.655957.3.579.2.462 Unknown [id number] 2.16.840.1.084863.3.579.2.462 Unknown [id number] 2.16.840.1.744311.3.579.2.462 Unknown [id number] 2.16.840.1.139049.3.579.2.462 Unknown [id number] 2.16.840.1.679289.3.579.2.462 Unknown [id number] 2.16.840.1.591045.3.579.2.462 Unknown [id number] 2.16840.1.242590.3.579.2.462 Unknown [id number] 2.16840.1.798233.3.579.2.462 Unknown [id number] 2.16840.1.639818.3.579.2.462 Unknown [id number] 2.16.840.1.696203.3.579.2.462 Unknown [id number] 2.16840.1.575695.3.579.2.462 Unknown [id number] 2.16.840.1.224676.3.579.2.462 Unknown [id number] 2.16.840.1.121983.3.579.2.462 Unknown [id number] 2.16840.1.749723.3.579.2.462 Unknown [id number] 2.16.840.1.720702.3.579.2.462 Unknown [id number] 2.16.840.1.396483.3.579.2.462 Unknown [id number] 2.16.840.1.686169.3.579.2.462 Unknown [id number] 2.16.840.1.215324.3.579.2.462 Unknown [id number] 2.16840.1.233504.3.579.2.462 Unknown [id number] 2.16.840.1.648946.3.579.2.462 Unknown [id number] 2.16.840.1.956984.3.579.2.462 Unknown [id number] 2.16.840.1.948597.3.579.2.462 Unknown [id number] 2.16840.1.154171.3.579.2.462 Unknown [id number] 2.16.840.1.449770.3.579.2.462 Unknown [id number] 2.840.1.615456.3.579.2.462 Unknown [id number] 2.840.1.021314.3.579.2.462 Unknown [id number] 2.840.1.829032.3.579.2.462 Unknown [id number] 2.840.1.870077.3.579.2.462 Unknown [id number] 2.840.1.523336.3.579.2.462 Unknown [id number] 2.840.1.859878.3.579.2.462 Unknown [id number] 2.840.1.538157.3.579.2.462 Unknown [id number] 2.840.1.686544.3.579.2.462 Unknown [id number] 2.840.1.431410.3.579.2.462 Unknown [id number] 2.840.1.920153.3.579.2.462 Unknown [id number] 2.840.1.132316.3.579.2.462 Unknown [id number] 2.840.1.161320.3.579.2.462 Unknown [id number] 2.840.1.737956.3.579.2.462 Unknown [id number] 2.840.1.457740.3.579.2.462 Social History Date Type Detail Facility Start: 01-24-2022 End: 01-23-2024 Tobacco smoking status NHIS Unknown if ever smoked [facility] Start: 1950 Sex Assigned At Male W [facility] Start: 04-26-2015 End: 05-19-2021 Tobacco smoking status Smokes tobacco daily (finding) [facility] End: 10-14-2020 History of tobacco use Cigar Smoker [facility] Start: 04-26-2015 End: 06-25-2024 Tobacco use and exposure Smokeless tobacco non-user [facility] Start: 05-24-2016 End: 01-20-2024 Alcohol intake Not Asked [facility] Start: 1950 Sex Assigned At Not on file [facility] Start: 01-20-2024 End: 01-21-2024 Gender identity Not on file [facility] Start: 01-20-2024 End: 01-21-2024 History of Social function [facility] Start: 01-21-2024 End: 12-30-2024 Tobacco smoking status NHIS Ex-smoker [facility] End: 10-14-2020 History of tobacco use Current smoker [facility] Start: 01-21-2024 End: 09-30-2024 Alcohol intake Ex-drinker (finding) [facility] National Score (1-10 0), lower number is lower risk 91 [facility] History of tobacco use Cigarette Smoker [facility] Start: 05-20-2024 Tobacco Comment Smoked differe nt amount over those 50 yrs [facility] Has the [employer] or [employer] threatened to shut off services in your home in past 12Mo No [facility] (I/We) worried masood er (my/our) food would run out before (I/we) got money to buy more. Never true [facility] Start: 12-31-2024 End: 02-01-2025 Sex Male (finding) [facility] Goals Date Patient Goal Desired Activity /State Functional Status Date Assessment Result Facility 12-11-2023 Functional status Bathroom Privilege [facility] Work Phone: 01-30-2023 Functional Status Room check performed [facility] 01-30-2023 Functional Status 20 Malathi Raymond [facility] 01-29-2023 Functional Status Dinner Percent 75 [facility] 01-29-2023 Functional Status Front wheeled walker [facility] 01-29-2023 Functional Status Lunch Percent 75 [facility] 01-29-2023 Functional [facility] 01-29-2023 Functional Status Multilevel home [facility] 01-28-2023 Functional Status Sensory Deficits None [facility] 01-28-2023 Functional Status Minimum assistance [facility] 01-16-2023 Functional status Chair [facility] Work Phone: Mental Status Date Assessment Result Facility 01-04-2025 Cognitive function Voice/Name [facility] Work Phone: 12-25-2024 Cognitive function Awake;Alert;Appropriat e [facility] Work Phone: 01-02-2024 Cognitive function Sedated [facility] Work Phone: 01-02-2024 Cognitive function Voice/Name [facility] Work Phone: 12-20-2023 Cognitive function Voice/Name [facility] Work Phone: 12-11-2023 Cognitive function Voice/Name [facility] Work Phone: 12-03-2023 Cognitive function Voice/Name [facility] Work Phone: 10-09-2023 Cognitive function Voice/Name [facility] Work Phone: 10-09-2023 Cognitive function Person;Place;Time [facility] Work Phone: 01-30-2023 Mental Status Orientation Not oriented to situation [facility] 01-30-2023 [facility] 01-30-2023 Mental Status [facility] 01-28-2023 Mental Status Orientation Asse ssment Not oriented to place [facility] 01-16-2023 Cognitive function Voice/Name [facility] Work Phone: Clinical Notes 01-14-2023 to 04-20-2025 Note Date & Type Note Facility 04-20-2025 Radiology Diagnostic study note [facility] 02-22-2025 Radiology Diagnostic study note [facility] 02-15-2025 Note Eligio is a 74 y.o. male who presents to our office today for evaluation secondary to a history of pruritus. Of note, he sees multiple specialists including Development Editor, Application Coordinator, Warehouse Shipping Supervisor, Patient Support Partner, U.S. Representative, Urologist and Upholstery Bundler and his PCP is Dr. Shalini Ferrari. He has a history of pruritus since November of 2023 and he does not have rashes with these. He tried Benadryl and something else that did not help and it annoying all the time. He has itching of torso, back and arms and legs and he scratches. A Gluten free diet was attempted and was equivocal. He tried Dapsone and this was equivocal and he was found to have Crohn's. -His partner supplied a CBC with WBC with 8100 and Hgb was 12.5g/dl and Hematocrit 38.7 and platelets are 253,00 and eosinophil count is 600 and CMP was normal electrolytes, with BUN of 18 and Creatinine of 1.07 and glucose 100 and calcium is normal at 9.6 and Bili is 0.24 and LFTs were all normal and TSH was 1.240 (normal) and these were on 01/26/25 and FRANCISCA was negative and C-ANCA and p-ANCA were also negative 11/09/24 and Hepatitis C was negative 07/01/24 and ESR was 39 and amylase was normal 86 in January 2024. -On 01/13/24 and IgG-1751 and IgA-481, IgM-34 and IgE-681 -An immunofixation screen was done 01/13/24 and this did not detect any monoclonal protein. *All lab results supplied were from [facility]. He denies rash with this and denies overt urticaria with the skin symptoms. He presents with his partner for evaluation. Environmental Survey/Social History: Lives with partner Special Needs: he is on 3L of oxygen all the time. 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 Smoking/Alcohol/Drug Use or Exposure: Not now, stopped smoking in 2020 (smoked for 40-50 years) Recreational Activities/Sports: No, He used to do deer hunting and fishing as well. Review of Systems/Past Medical History: Constitutional: denies fever, chills, weight loss. Eyes: denies vision changes, color blindness. Ears, nose throat and mouth: see narrative above. History of chronic rhinitis. Respiratory: history of COPD. Gastrointestinal: denies diarrhea, constipation, emesis. Genitourinary: denies dysuria or urine odor. Skin/integumentary: denies nail changes or other rash. Neurologic: denies seizures, weakness or speech problems. Hematologic/lymphatic: denies pallor. Allergic/Immunologic: see narrative above. IgE of 681. *Regarding bee stings, no issues. History reviewed. No pertinent past medical history. History of COPD, Crohn's, Sleep Apnea, High Cholesterol and HTN. He has good kidney function at this time. History reviewed. No pertinent surgical history. History of Esophagogastro duodenoscopy, Bleeding Ulcer Cauterization and Thoracotomy to drain empyema. Current Medications[1] History reviewed. No pertinent family history. Allergies: NKDA. He avoids aspirin due to the history of bleeding ulcer. PE: Nursing note and Vital signs reviewed. BP 120/76 (BP Site: Right Arm, Patient Position: Sitting, BP Cuff Size: Adult) Pulse 74 Temp 36.4 C (97.6 F) (Temporal) Resp 22 Ht (!) 182.9 cm Wt 89.4 kg BMI 26.73 kg/m Constitutional: He was awake, alert and in no apparent distress. He has a nasal canula. Conjunctivae: clear. Nasal mucosa: mildly atrophic Nasal turbinates: normal. No polyps visualized. Tympanic membranes: clear. Throat: clear. He did not have cervical adenopathy. Lungs: clear to auscultation bilaterally. Cardio: regular rate and rhythm. Musculoskeletal: good upper extremity strength bilaterally. Neuro: oriented to time and place, good interaction. Skin: upper extremities clear at this visit. No rash at this visit. *After discussion with him, Epicutaneous testing to multiple environmental allergens revealed good controls and Eligio was completely negative (histamine 8mm/9mm). Impression Eligio Mccabe is a 74 yo male with a history since at least November of 2023 of pruritus without other skin symptoms. He has multiple health issues and sees multiple specialists and has a significant smoking history (COPD and stopped smoking in 2020). He has undergone extensive laboratory evaluations and he did have an elevated IgE in 01/13/24. Dapsone seemed equivocal and he presented on 02/15/25 for evaluation and environmental allergen testing was negative. The benefits, side effects of the treatment and treatment alternatives were discussed. Plan You have already undergone extensive laboratory evaluations. You did have an IgE of 681 01/13/24. On 02/15/25, environmental allergen testing was done to cat, dog, dust mite, cockroach, mouse, molds and tree, grass, weed and ragweed pollens and you were negative. 3. You could try OTC Fexofenadine 180mg (generic Melodie) at 1 tablet twice a day and see if this helps with itching. This should be okay with your other (more content not included)... 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 1:12pm Crohn's disease acute January 1:12pm Dilated cbd, acquired acute Apr 2024 1:12pm Lesion of pancreas acute January 26, 2025 1:12pm Macrocytic anemia acute January 122024 1:12pm Elevated fecal calprotectin acute February 24, 2025 1:08pm Skin tear chronic February 24, 2025 1:08pm Central sleep apnea acute February 112024 1:11pm Obstructive sleep apnea acute M 2024 1:11pm Smoking greater than 40 pack years acute February 26, 2025 1:11pm COPD (chronic obstructive pulmonary disease) chronic February 26, 2025 1:11pm Lung nodule chronic February 26 1:11pm Shortness of breath chronic February 112024 1:11pm Celiac disease acute March 10, 2025 12:43pm Elevated fecal calprotectin acute March 10, 2025 12:43pm Chronic pain chronic March 10 12:43pm Chronic pruritus chronic February 12:43pm Skin tear chronic March 10, 2025 12:43pm Central sleep apnea acute March 26, 2025 12:33pm Obstructive sleep apnea acute J une 2024 12:33pm Smoking greater than 40 pack years acute March 26, 2025 12:33pm COPD (chronic obstructive pulmonary disease) chronic March 26, 2025 12:33pm Lung nodule chronic March 26 12:33pm Shortness of breath chronic March 26, 2025 12:33pm Bronchiectasis acute April 20, 2025 1:02pm Central sleep apnea acute April 20, 2025 1:02pm Obstructive sleep apnea acute J [email or web address] 1:02pm Smoking greater than 40 pack years acute April 20, 2025 1:02pm COPD (chronic obstructive pulmonary disease) chronic April 20, 2025 1:02pm Lung nodule chronic April 20 1:02pm Shortness of breath chronic April 20, 2025 1:02pm [facility] Work Phone: 1(535) 425-823803-24-2025 [facility]03-19-2025 Evaluation note* Diagnosis Onset Date Resolution Status Admit Date Aortic root dilatation acute Ma [facility] 2024 12:36pm BPH with obstruction/lower urinary tract symptoms acute December 12:36pm Central sleep apnea acute December 30, 2024 12:36pm Skin tags, multiple acquired acute December 30, 2024 12:36pm Chronic pruritus chronic December 302024 12:36pm COPD (chronic obstructive pulmonary disease) chronic December 30, 2 025 12:36pm History of stomach ulcers chronic December 30, 2024 12:36pm Celiac disease acute December 5:25am Skin tags, multiple acquired acute January 06, 2025 1:42pm Car esophagus acute January 122024 1:12pm Crohn's disease acute January 1:12pm Dilated cbd, acquired acute Apr 2024 1:12pm Lesion of pancreas acute January 26, 2025 1:12pm Macrocytic anemia acute January 122024 1:12pm Elevated fecal calprotectin acute February 24, 2025 1:08pm Skin tear chronic February 24, 2025 1:08pm Central sleep apnea acute February 112024 1:11pm Obstructive sleep apnea acute M ay 2024 1:11pm Smoking greater than 40 pack years acute February 26, 2025 1 :11pm COPD (chronic obstructive pulmonary disease) chronic February 26 1:11pm Lung nodule chronic February 26 1:11pm Shortness of breath chronic February 112024 1:11pm Celiac disease acute March 10, 2025 12:43pm Elevated fecal calprotectin acute March 10, 2025 12:43pm Chronic pain chronic March 10 12:43pm Chronic pruritus chronic February 12:43pm Skin tear chronic March 10, 2025 12:43pm Central sleep apnea acute March 26, 2025 12:33pm Obstructive sleep apnea acute J une 2024 12:33pm Smoking greater than 40 pack years acute March 26, 2025 12:33pm COPD (chronic obstructive pulmonary disease) chronic March 26 12:33pm Lung nodule chronic March 26 12:33pm Shortness of breath chronic March 26, 2025 12:33pm Central sleep apnea acute April 20, 2025 1:02pm Obstructive sleep apnea acute J rogelio 2024 1:02pm Smoking greater than 40 pack years acute April 20, 2025 1 :02pm COPD (chronic obstructive pulmonary disease) chronic April 20 1:02pm Lung nodule chronic April 20 1:02pm Shortness of breath chronic April 20, 2025 1:02pm [facility] Work Phone: 1(552) 539-481903-19-2025 Evaluation note* Diagnosis Onset Date Resolution Status Admit Date Aortic root dilatation acute Ma rc2024 12:36pm BPH with obstruction/lower urinary tract symptoms acute December 12:36pm Central sleep apnea acute December 30, 2024 12:36pm Skin tags, multiple acquired acute December 30, 2024 12:36pm Chronic pruritus chronic December 302024 12:36pm COPD (chronic obstructive pulmonary disease) chronic December 30, 2 025 12:36pm History of stomach ulcers chronic December 30, 2024 12:36pm Celiac disease acute December 5:25am Skin tags, multiple acquired acute January 06, 2025 1:42pm Car esophagus acute January 122024 1:12pm Crohn's disease acute January 1:12pm Dilated cbd, acquired acute Jan 1:12pm Lesion of pancreas acute January 26, 2025 1:12pm Macrocytic anemia acute January 122024 1:12pm Elevated fecal calprotectin acute February 24, 2025 1:08pm Skin tear chronic February 24, 2025 1:08pm Central sleep apnea acute February 112024 1:11pm Obstructive sleep apnea acute [facility] 2024 1:11pm Smoking greater than 40 pack years acute February 26, 2025 1 :11pm COPD (chronic obstructive pulmonary disease) chronic February 26 1:11pm Lung nodule chronic February 26 1:11pm Shortness of breath chronic February 112024 1:11pm Celiac disease acute March 10, 2025 12:43pm Elevated fecal calprotectin acute March 10, 2025 12:43pm Chronic pain chronic March 10 12:43pm Chronic pruritus chronic February 12:43pm Skin tear chronic March 10, 2025 12:43pm Central sleep apnea acute March 26, 2025 12:33pm Obstructive sleep apnea acute J 2024 12:33pm Smoking greater than 40 pack years acute March 26, 2025 12:33pm COPD (chronic obstructive pulmonary disease) chronic March 26 12:33pm Lung nodule chronic March 26 12:33pm Shortness of breath chronic March 26, 2025 12:33pm Bronchiectasis acute April 20, 2025 1:02pm Central sleep apnea acute April 20, 2025 1:02pm Obstructive sleep apnea acute J [email or web address] 1:02pm Smoking greater than 40 pack years acute April 20, 2025 1 :02pm COPD (chronic obstructive pulmonary disease) chronic April 20 1:02pm Lung nodule chronic April 20 1:02pm Shortness of breath chronic April 20, 2025 1:02pm [facility] Work Phone: 1(721) 912-510502-27-2025 Evaluation note* Diagnosis Onset Date Resolution Status Admit Date Aortic root dilatation acute Fe bruary 2024 1:15pm Orthostatic hypotension acute F ebruary 2024 1:15pm COPD (chronic obstructive pulmonary disease) chronic November 1:15pm Hyperlipidemia chronic November 152024 1:15pm Central sleep apnea acute Febru 2024 2:31pm Obstructive sleep apnea acute F ebruary 2024 2:31pm COPD (chronic obstructive pulmonary disease) chronic November 2:31pm Lung nodule chronic November 2:31pm Shortness of breath chronic u 2024 2:31pm Aortic root dilatation acute [facility] 2024 12:36pm BPH with obstruction/lower urinary tract symptoms acute December 12:36pm Central sleep apnea acute December 30, 2024 12:36pm Skin tags, multiple acquired acute December 30, 2024 12:36pm Chronic pruritus chronic December 302024 12:36pm COPD (chronic obstructive pulmonary disease) chronic December 30, 2 025 12:36pm History of stomach ulcers chronic December 30, 2024 12:36pm Celiac disease acute December 5:25am Skin tags, multiple acquired acute January 06, 2025 1:42pm Car esophagus acute January 122024 1:12pm Crohn's disease acute January 1:12pm Dilated cbd, acquired acute Apr 2024 1:12pm Lesion of pancreas acute January 26, 2025 1:12pm Macrocytic anemia acute January 122024 1:12pm Elevated fecal calprotectin acute February 24, 2025 1:08pm Skin tear acute February 24, 2025 1:08pm Central sleep apnea acute February 112024 1:11pm Obstructive sleep apnea acute M ay 2024 1:11pm Smoking greater than 40 pack years acute February 26, 2025 1 :11pm COPD (chronic obstructive pulmonary disease) chronic February 26 1:11pm Lung nodule chronic February 26 1:11pm Shortness of breath chronic February 112024 1:11pm Celiac disease acute March 10, 2025 12:43pm Elevated fecal calprotectin acute March 10, 2025 12:43pm Skin tear acute March 10, 2025 12:43pm Chronic pain chronic March 10 12:43pm Chronic pruritus chronic February 12:43pm [facility] Work Phone: 1(473) 291-975102-27-2025 Evaluation note* Diagnosis Onset Date Resolution Status Admit Date Aortic root dilatation acute Fe bru2024 1:15pm Orthostatic hypotension acute F ary 2024 1:15pm COPD (chronic obstructive pulmonary disease) chronic November 1:15pm Hyperlipidemia chronic November 152024 1:15pm Central sleep apnea acute 2024 2:31pm Obstructive sleep apnea acute F ebary 2024 2:31pm COPD (chronic obstructive pulmonary disease) chronic November 2:31pm Lung nodule chronic November 2:31pm Shortness of breath chronic 2024 2:31pm Aortic root dilatation acute [facility] 2024 12:36pm BPH with obstruction/lower urinary tract symptoms acute December 12:36pm Central sleep apnea acute December 30, 2024 12:36pm Skin tags, multiple acquired acute December 30, 2024 12:36pm Chronic pruritus chronic December 302024 12:36pm COPD (chronic obstructive pulmonary disease) chronic December 30, 025 12:36pm History of stomach ulcers chronic December 30, 2024 12:36pm Celiac disease acute December 5:25am Skin tags, multiple acquired acute January 06, 2025 1:42pm Car esophagus acute January 122024 1:12pm Crohn's disease acute January 1:12pm Dilated cbd, acquired acute Apr 2024 1:12pm Lesion of pancreas acute January 26, 2025 1:12pm Macrocytic anemia acute January 122024 1:12pm Elevated fecal calprotectin acute February 24, 2025 1:08pm Skin tear chronic February 24, 2025 1:08pm Central sleep apnea acute February 112024 1:11pm Obstructive sleep apnea acute M 2024 1:11pm Smoking greater than 40 pack years acute February 26, 2025 1 :11pm COPD (chronic obstructive pulmonary disease) chronic February 26 1:11pm Lung nodule chronic February 26 1:11pm Shortness of breath chronic February 112024 1:11pm Celiac disease acute March 10, 2025 12:43pm Elevated fecal calprotectin acute March 10, 2025 12:43pm Chronic pain chronic March 10 12:43pm Chronic pruritus chronic February 12:43pm Skin tear chronic March 10, 2025 12:43pm [facility] Work Phone: 1(357) 411-667002-27-2025 Evaluation note* Diagnosis Onset Date Resolution Status Admit Date Aortic root dilatation acute Fe bru2024 1:15pm Orthostatic hypotension acute F ebary 2024 1:15pm COPD (chronic obstructive pulmonary disease) chronic November 1:15pm Hyperlipidemia chronic November 152024 1:15pm Central sleep apnea acute Febru will2024 2:31pm Obstructive sleep apnea acute F ebruary 2024 2:31pm COPD (chronic obstructive pulmonary disease) chronic November 2:31pm Lung nodule chronic November 2:31pm Shortness of breath chronic 2024 2:31pm Aortic root dilatation acute [facility] 2024 12:36pm BPH with obstruction/lower urinary tract symptoms acute December 12:36pm Central sleep apnea acute December 30, 2024 12:36pm Skin tags, multiple acquired acute December 30, 2024 12:36pm Chronic pruritus chronic December 302024 12:36pm COPD (chronic obstructive pulmonary disease) chronic December 30, 2 025 12:36pm History of stomach ulcers chronic December 30, 2024 12:36pm Celiac disease acute December 5:25am Skin tags, multiple acquired acute January 06, 2025 1:42pm Car esophagus acute January 122024 1:12pm Crohn's disease acute January 1:12pm Dilated cbd, acquired acute Jan 1:12pm Lesion of pancreas acute January 26, 2025 1:12pm Macrocytic anemia acute January 122024 1:12pm Elevated fecal calprotectin acute February 24, 2025 1:08pm Skin tear chronic February 24, 2025 1:08pm Central sleep apnea acute February 112024 1:11pm Obstructive sleep apnea acute [facility] 2024 1:11pm Smoking greater than 40 pack years acute February 26, 2025 1 :11pm COPD (chronic obstructive pulmonary disease) chronic February 26 1:11pm Lung nodule chronic February 26 1:11pm Shortness of breath chronic February 112024 1:11pm Celiac disease acute March 10, 2025 12:43pm Elevated fecal calprotectin acute March 10, 2025 12:43pm Chronic pain chronic March 10 12:43pm Chronic pruritus chronic February 12:43pm Skin tear chronic March 10, 2025 12:43pm Central sleep apnea acute March 26, 2025 12:33pm Obstructive sleep apnea [facility] 2024 12:33pm Smoking greater than 40 pack years acute March 26, 2025 12:33pm COPD (chronic obstructive pulmonary disease) chronic March 26 12:33pm Lung nodule chronic March 26 12:33pm Shortness of breath chronic March 26, 2025 12:33pm [facility] Work Phone: 1(770) 311-735901-17-2025 Evaluation note* Diagnosis Onset Date Resolution Status Admit Date Daytime hypersomnia acute 2024 2:09pm COPD (chronic obstructive pulmonary disease) chronic October 30, 2024 2:09pm Lung nodule chronic October 30, 2024 2:09pm Shortness of breath chronic 2024 2:09pm Celiac disease acute November 092024 2:31pm Crohn's disease acute October 152024 2:31pm Macrocytic anemia acute November 09, 2024 2:31pm GERD (gastroesophageal reflu x disease) chronic November 09 2:31pm Aortic root dilatation acute Fe bruary 2024 1:15pm Orthostatic hypotension acute F ebruary 2024 1:15pm COPD (chronic obstructive pulmonary disease) chronic November 1:15pm Hyperlipidemia chronic November 152024 1:15pm Central sleep apnea acute will2024 2:31pm Obstructive sleep apnea acute F ebruary 2024 2:31pm COPD (chronic obstructive pulmonary disease) chronic November 2:31pm Lung nodule chronic November 2:31pm Shortness of breath chronic 2024 2:31pm Aortic root dilatation acute [facility] 2024 12:36pm BPH with obstruction/lower urinary tract symptoms acute December 12:36pm Central sleep apnea acute December 30, 2024 12:36pm Skin tags, multiple acquired acute December 30, 2024 12:36pm Chronic pruritus chronic December 302024 12:36pm COPD (chronic obstructive pulmonary disease) chronic December 30, 2 025 12:36pm History of stomach ulcers chronic December 30, 2024 12:36pm Celiac disease acute December 5:25am Skin tags, multiple acquired acute January 06, 2025 1:42pm Car esophagus acute January 122024 1:12pm Crohn's disease acute January 1:12pm Dilated cbd, acquired acute Apr 2024 1:12pm Lesion of pancreas acute January 26, 2025 1:12pm Macrocytic anemia acute January 122024 1:12pm [facility] Work Phone: 1(219) 999-114701-17-2025 Evaluation note* Diagnosis Onset Date Resolution Status Admit Date Daytime hypersomnia acute 2024 2:09pm COPD (chronic obstructive pulmonary disease) chronic October 30, 2024 2:09pm Lung nodule chronic October 30, 2024 2:09pm Shortness of breath chronic Janua 2024 2:09pm Celiac disease acute November 092024 2:31pm Crohn's disease acute October 152024 2:31pm Macrocytic anemia acute November 09, 2024 2:31pm GERD (gastroesophageal reflu x disease) chronic November 09 2:31pm Aortic root dilatation acute Fe bruary 2024 1:15pm Orthostatic hypotension acute F ebruary 2024 1:15pm COPD (chronic obstructive pulmonary disease) chronic November 1:15pm Hyperlipidemia chronic November 152024 1:15pm Central sleep apnea acute will2024 2:31pm Obstructive sleep apnea acute F ebary 2024 2:31pm COPD (chronic obstructive pulmonary disease) chronic November 2:31pm Lung nodule chronic November 2:31pm Shortness of breath chronic Febru will2024 2:31pm Aortic root dilatation acute [facility] 2024 12:36pm BPH with obstruction/lower urinary tract symptoms acute December 12:36pm Central sleep apnea acute December 30, 2024 12:36pm Skin tags, multiple acquired acute December 30, 2024 12:36pm Chronic pruritus chronic December 302024 12:36pm COPD (chronic obstructive pulmonary disease) chronic December 30, 2 025 12:36pm History of stomach ulcers chronic December 30, 2024 12:36pm Celiac disease acute December 5:25am Skin tags, multiple acquired acute January 06, 2025 1:42pm Car esophagus acute January 122024 1:12pm Crohn's disease acute January 1:12pm Dilated cbd, acquired acute Apr 2024 1:12pm Lesion of pancreas acute January 26, 2025 1:12pm Macrocytic anemia acute January 122024 1:12pm Elevated fecal calprotectin acute February 24, 2025 1:08pm Skin tear acute February 24, 2025 1:08pm [facility] Work Phone: 1(212) 116-288201-17-2025 Evaluation note* Diagnosis Onset Date Resolution Status Admit Date Daytime hypersomnia acute 2024 2:09pm COPD (chronic obstructive pulmonary disease) chronic October 30, 2024 2:09pm Lung nodule chronic October 30, 2024 2:09pm Shortness of breath chronic 2024 2:09pm Celiac disease acute November 092024 2:31pm Crohn's disease acute October 152024 2:31pm Macrocytic anemia acute November 09, 2024 2:31pm GERD (gastroesophageal reflu x disease) chronic November 09 2:31pm Aortic root dilatation acute Fe bruary 2024 1:15pm Orthostatic hypotension acute F ebruary 2024 1:15pm COPD (chronic obstructive pulmonary disease) chronic November 1:15pm Hyperlipidemia chronic November 152024 1:15pm Central sleep apnea acute 2024 2:31pm Obstructive sleep apnea acute F ebary 2024 2:31pm COPD (chronic obstructive pulmonary disease) chronic November 2:31pm Lung nodule chronic November 2:31pm Shortness of breath chronic 2024 2:31pm Aortic root dilatation acute [facility] 2024 12:36pm BPH with obstruction/lower urinary tract symptoms acute December 12:36pm Central sleep apnea acute December 30, 2024 12:36pm Skin tags, multiple acquired acute December 30, 2024 12:36pm Chronic pruritus chronic December 302024 12:36pm COPD (chronic obstructive pulmonary disease) chronic December 30, 2 025 12:36pm History of stomach ulcers chronic December 30, 2024 12:36pm Celiac disease acute December 5:25am Skin tags, multiple acquired acute January 06, 2025 1:42pm Car esophagus acute January 122024 1:12pm Crohn's disease acute January 1:12pm Dilated cbd, acquired acute Apr 2024 1:12pm Lesion of pancreas acute January 26, 2025 1:12pm Macrocytic anemia acute January 122024 1:12pm Elevated fecal calprotectin acute February 24, 2025 1:08pm Skin tear acute February 24, 2025 1:08pm Central sleep apnea acute February 112024 1:11pm Obstructive sleep apnea acute M 2024 1:11pm COPD (chronic obstructive pulmonary disease) chronic February 26 1:11pm Lung nodule chronic February 26 1:11pm Shortness of breath chronic February 112024 1:11pm [facility] Work Phone: 1(999) 676-982701-07-2025 Evaluation note* Diagnosis Onset Date Resolution Status Admit Date Chronic pruritus chronic October 20, 2024 3:07pm Daytime hypersomnia acute 2024 2:09pm COPD (chronic obstructive pulmonary disease) chronic October 30, 2024 2:09pm Lung nodule chronic October 30, 2024 2:09pm Shortness of breath chronic 2024 2:09pm Celiac disease acute November 092024 2:31pm Crohn's disease acute October 152024 2:31pm Macrocytic anemia acute November 09, 2024 2:31pm GERD (gastroesophageal reflu x disease) chronic November 09 2:31pm Aortic root dilatation acute Fe bruary 2024 1:15pm Orthostatic hypotension acute 2024 1:15pm COPD (chronic obstructive pulmonary disease) chronic November 1:15pm Hyperlipidemia chronic November 152024 1:15pm Central sleep apnea acute 2024 2:31pm Obstructive sleep apnea acute F ebary 2024 2:31pm COPD (chronic obstructive pulmonary disease) chronic November 2:31pm Lung nodule chronic November 2:31pm Shortness of breath chronic 2024 2:31pm Aortic root dilatation acute [facility] 2024 12:36pm BPH with obstruction/lower urinary tract symptoms acute December 12:36pm Central sleep apnea acute December 30, 2024 12:36pm Skin tags, multiple acquired acute December 30, 2024 12:36pm Chronic pruritus chronic December 302024 12:36pm COPD (chronic obstructive pulmonary disease) chronic December 30, 2 025 12:36pm History of stomach ulcers chronic December 30, 2024 12:36pm Celiac disease acute December 5:25am Skin tags, multiple acquired acute January 06, 2025 1:42pm Car esophagus acute January 122024 1:12pm Crohn's disease acute January 1:12pm Dilated cbd, acquired acute Apr 2024 1:12pm Lesion of pancreas acute January 26, 2025 1:12pm Macrocytic anemia acute January 122024 1:12pm [facility] Work Phone: 1(301) 533-383512-18-2024 NoteHNO ID: [id number] Author: DAVID VALDES JR, MD Service: ? Author Type: Physician Type: Progress Notes Filed: 09/30/2024 13:20 Note Text: ESTABLISHED PATIENT OFFICE VISIT HPI Eligio Mccabe is a 74 year old male with history of BPH s/p TURP. Voiding without issue at home. No gross hematuria or dysuria. Continues to have nocturia 3x. Pathology revealed benign prostatic tissue. Overall happy with decision to undergo surgery. MEDICATIONS: tamsulosin (FLOMAX) 0.4 mg TAKE ONE CAPSULE BY MOUTH EVERY DAY 30 MINUTES AFTER THE SAME MEAL EACH DAY acetaminophen/diphenhydramine (TYLENOL PM ORAL) Take 2 tablets by mouth daily at bedtime. budesonide, enteric coated (ENTOCORT EC) 3 mg 24 hr capsule Take 6 mg by mouth once daily. OXYGEN, HOME THERAPY, 3 L/min by Nasal Cannula route as directed. Uses 3L via nasal cannula daily and at 4L via Nasal cannula at night fluticasone (FLONASE) 50 mcg/actuation nasal spray Use 2 Sprays in each nostril once daily. docusate sodium (COLACE) 100 mg capsule Take 100 mg by mouth once daily. pantoprazole DR (PROTONIX) 40 mg tablet Take 40 mg by mouth two times a day. pravastatin (PRAVACHOL) 40 mg tablet Take 40 mg by mouth daily at bedtime. MULTIVITAMIN ORAL Take by mouth once daily. carboxymethylcellulose (REFRESH) 0.5 % drop Use 1 Drop in both eyes every 4 hours as needed. 4-6 times daily as needed ipratropium-albuterol (DUONEB) 0.5 mg-3 mg(2.5 mg base)/3 mL nebu Inhale 3 mL as instructed two times a day. [facility] Rollator walker with seat [id number] (TRELEGY ELLIPTA) 100-62.5-25 mcg inhalation powder Inhale 1 Puff as instructed once daily. albuterol HFA (PROAIR HFA) 90 mcg/actuation inhaler Inhale 2 Puffs as instructed every 4 hours as needed for Wheezing/Shortness of Breath. atenolol 50 mg tablet Take 50 mg by mouth once daily. traZODone 100 mg tablet Take 100 mg by mouth daily at bedtime. MULTIVIT ANDMINERALS/FERROUS FUM (MULTI VITAMIN ORAL) Take 1 tablet by mouth once daily. GLUCOSAMINE HCL/CHONDR RATLIFF A NA (OSTEO BI-FLEX ORAL) Take 2 tablets by mouth once daily. predniSONE (DELTASONE) 10 mg tablet Take 4 tablets daily for 2 days, 2 tablets daily for 2 days, 1 tablet daily for 2 days (Patient not taking: Reported on 02/25/2024) gabapentin (NEURONTIN) 600 mg tablet Take 600 mg by mouth three times a day. venlafaxine XR (EFFEXOR XR) 150 mg 24 hr capsule Take 150 mg by mouth once daily. HYDROCODONE/ACETAMINOPHEN (VICODIN ES ORAL) Take 10-325 mg by mouth three times a day. 325 mg 4 x daily (Patient not taking: Reported on 02/25/2024) cyclobenzaprine (FLEXERIL) 10 mg tablet Take 10 mg by mouth three times a day as needed. (Patient not taking: Reported on 06/25/2024) zolpidem 10 mg tab Take by mouth at bedtime as needed. Ibuprofen 200 mg cap Take by mouth. 4 tablets prn ranitidine 150 mg tablet Take 150 mg by mouth twice daily. 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 Chronic pain Chronic respiratory failure with hypoxia ([facility]) O2 @ 3L/NC 24x7 COPD (chronic obstructive pulmonary disease) (HCC) Depressive disorder, not elsewhere classified Drop foot gait Dry eye syndrome of bilateral lacrimal glands Essential (primary) hypertension Essential hypertension, benign Former smoker Gastric ulcer, unspecified as acute or chronic, without hemorrhage or perforation Gastroesophageal reflux disease without esophagitis High cholesterol History of echocardiogram History of GI bleed History of hiatal hernia History of stomach ulcers History of stress test Hyperkalemia 12/03/2023 Hyperlipidemia, unspecified Insomnia, unspecified Irritable bowel syndrome with diarrhea Major depressive disorder, single episode, unspecified Mixed hyperlipidemia Neuropathy Obstructive and reflux uropathy, unspecified Osteoarthrosis, unspecified whether generalized or localized, unspecified site Polyneuropathy, unspecified Retention of urine, unspecified Syncope Tobacco use disorder Unspecified hyperplasia of prostate without urinary obstruction and other lower urinary tract symptoms (LUTS) Unspecified protein-calorie malnutrition (HCC) Urine retention Wears dentures Wears glasses FAMILY HISTORY Problem Relation Age of Onset Heart Mother Depression Mother Hypertension Father Stroke Father other (Thyroid disorder) Sister SOCIAL HISTORY Social History Tobacco Use Smoking status: Former Current packs/day: 3.00 Average packs/day: 3.0 packs/day for 50.0 years (150.0 ttl pk-yrs) Types: Cigars, Cigarettes Quit date: 2020 Smokeless tobacco: Never Tobacco comments: Smoked different amount over those 50 yrs Vaping Use Vaping status: Never Us (more content not included)...[facility]12-18-2024 History of Present illness Narrative* David Valdes Jr., MD - 09/30/2024 12:37 PM EST ESTABLISHED PATIENT OFFICE VISIT HPI Eligio Mccabe is a 74 year old male with history of BPH s/p TURP. Voiding without issue at home. No gross hematuria or dysuria. Continues to have nocturia 3x. Pathology revealed benign prostatic tissue. Overall happy with decision to undergo surgery. MEDICATIONS: tamsulosin (FLOMAX) 0.4 mg TAKE ONE CAPSULE BY MOUTH EVERY DAY 30 MINUTES AFTER THE SAME MEAL EACH DAY acetaminophen/diphenhydramine (TYLENOL PM ORAL) Take 2 tablets by mouth daily at bedtime. budesonide, enteric coated (ENTOCORT EC) 3 mg 24 hr capsule Take 6 mg by mouth once daily. OXYGEN, HOME THERAPY, 3 L/min by Nasal Cannula route as directed. Uses 3L via nasal cannula daily and at 4L via Nasal cannula at night fluticasone (FLONASE) 50 mcg/actuation nasal spray Use 2 Sprays in each nostril once daily. docusate sodium (COLACE) 100 mg capsule Take 100 mg by mouth once daily. pantoprazole DR (PROTONIX) 40 mg tablet Take 40 mg by mouth two times a day. pravastatin (PRAVACHOL) 40 mg tablet Take 40 mg by mouth daily at bedtime. MULTIVITAMIN ORAL Take by mouth once daily. carboxymethylcellulose (REFRESH) 0.5 % drop Use 1 Drop in both eyes every 4 hours as needed. 4-6 times daily as needed ipratropium-albuterol (DUONEB) 0.5 mg-3 mg(2.5 mg base)/3 mL nebu Inhale 3 mL as instructed two times a day. [facility] Rollator walker with seat [id number] (TRELEGY ELLIPTA) 100-62.5-25 mcg inhalation powder Inhale 1 Puff asinstructed once daily. albuterol HFA (PROAIR HFA) 90 mcg/actuation inhaler Inhale 2 Puffs as instructed every 4 hours as needed for Wheezing/Shortness of Breath. atenolol 50 mg tablet Take 50 mg by mouth once daily. traZODone 100 mg tablet Take 100 mg by mouth daily at bedtime. MULTIVIT &MINERALS/FERROUS FUM (MULTI VITAMIN ORAL) Take 1 tablet by mouth once daily. GLUCOSAMINE HCL/CHONDR RATLIFF A NA (OSTEO BI-FLEX ORAL) Take 2 tablets by mouth once daily. predniSONE (DELTASONE) 10 mg tablet Take 4 tablets daily for 2 days, 2 tablets daily for 2 days, 1 tablet daily for 2 days (Patient not taking: Reported on 02/25/2024) gabapentin (NEURONTIN) 600 mg tablet Take 600 mg by mouth three times a day. venlafaxine XR (EFFEXOR XR) 150 mg 24 hr capsule Take 150 mg by mouth once daily. HYDROCODONE/ACETAMINOPHEN (VICODIN ES ORAL) Take 10-325 mg by mouth three times a day. 325 mg 4 x daily (Patient not taking: Reported on 02/25/2024) cyclobenzaprine (FLEXERIL) 10 mg tablet Take 10 mg by mouth three times a day as needed. (Patient not taking: Reported on 06/25/2024) zolpidem 10 mg tab Take by mouth at bedtime as needed. Ibuprofen 200 mg cap Take by mouth. 4 tablets prn ranitidine 150 mg tablet Take 150 mg by mouth twice daily. 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 Chronic pain Chronic respiratory failure with hypoxia ([facility]) O2 @ 3L/NC 24x7 COPD (chronic obstructive pulmonary disease) ([facility]) Depressive disorder, not elsewhere classified Drop foot gait Dry eye syndrome of bilateral lacrimal glands Essential (primary) hypertension Essential hypertension, benign Former smoker Gastric ulcer, unspecified as acute or chronic, without hemorrhage or perforation Gastroesophageal reflux disease without esophagitis High cholesterol History of echocardiogram History of GI bleed History of hiatal hernia History of stomach ulcers History of stress test Hyperkalemia 12/03/2023 Hyperlipidemia, unspecified Insomnia, unspecified Irritable bowel syndrome with diarrhea Major depressive disorder, single episode, unspecified Mixed hyperlipidemia Neuropathy Obstructive and reflux uropathy, unspecified Osteoarthrosis, unspecified whether generalized or localized, unspecified site Polyneuropathy, unspecified Retention of urine, unspecified Syncope Tobacco use disorder Unspecified hyperplasia of prostate without urinary obstruction and other lower urinary tract symptoms (LUTS) Unspecified protein-calorie malnutrition ([facility]) Urine retention Wears dentures Wears glasses FAMILY HISTORY Problem Relation Age of Onset Heart Mother Depression Mother Hypertension Father Stroke Father other (Thyroid disorder) Sister SOCIAL HISTORY Social History Tobacco Use Smoking status: Former Current packs/day: 3.00 Average packs/day: 3.0 packs/day for 50.0 years (150.0 ttl pk-yrs) Types: Cigars, Cigarettes Quit date: 2020 Smokeless tobacco: Never Tobacco comments: Smoked different amount over those 50 yrs Vaping Use Vaping status: Never Used Substance Use Topics Alcohol use: Not Currently Drug use: Not Currently Types: Marijuana Comment: only as a teenager did THC, no medical THC card PHYSICAL EXAMINATION BP 128/84 Pulse 62 SpO2 93% General appearance: well appearing Respiratory: no increased work of breathing CV: no cyanosis : deferred ASSESSMENT 1. Benign prostatic hyperplasia with urinary retention - UA DIP, URINE (POC) PLAN Recommend continued Flomax. PSA 0.39. Will not repeat PSA given age. Follow up in 1 year. Blade Allen MD PGY-5, Urology September 30, 2024 I saw and evaluated the patient. Discussed with resident and agree with resident's findings and plan as documented in the resident's note. Stop flomax for now Will call if luts return Set for prn David Valdes Jr, [facility]* Diagnosis Onset Date Resolution Status Admit Date Oral thrush acute September 1:55pm COPD (chronic obstructive pulmonary disease) chronic September 1:55pm Lung nodule chronic September 1:55pm Shortness of breath chronic Decem cassie 2023 1:55pm Chronic pruritus chronic October 20, 2024 3:07pm Daytime hypersomnia acute 2024 2:09pm COPD (chronic obstructive pulmonary disease) chronic October 30, 2024 2:09pm Lung nodule chronic October 30, 2024 2:09pm Shortness of breath chronic 2024 2:09pm Celiac disease acute November 092024 2:31pm Crohn's disease acute October 152024 2:31pm Macrocytic anemia acute November 09, 2024 2:31pm GERD (gastroesophageal reflu x disease) chronic November 09 2:31pm Aortic root dilatation acute Fe bruary 2024 1:15pm Orthostatic hypotension acute F ebruary 2024 1:15pm COPD (chronic obstructive pulmonary disease) chronic November 1:15pm Hyperlipidemia chronic November 152024 1:15pm Central sleep apnea acute u will2024 2:31pm Obstructive sleep apnea acute F ebruary 2024 2:31pm COPD (chronic obstructive pulmonary disease) chronic November 2:31pm Lung nodule chronic November 2:31pm Shortness of breath chronic will2024 2:31pm Aortic root dilatation acute [facility] 2024 12:36pm BPH with obstruction/lower urinary tract symptoms acute December 12:36pm Central sleep apnea acute December 30, 2024 12:36pm Skin tags, multiple acquired acute December 30, 2024 12:36pm Chronic pruritus chronic December 302024 12:36pm COPD (chronic obstructive pulmonary disease) chronic December 30, 2 025 12:36pm History of stomach ulcers chronic December 30, 2024 12:36pm [facility] Work Phone: 1(207) 896-504512-13-2024 Evaluation note* Diagnosis Onset Date Resolution Status Admit Date Oral thrush acute September 1:55pm COPD (chronic obstructive pulmonary disease) chronic September 1:55pm Lung nodule chronic September 1:55pm Shortness of breath chronic Dece 2023 1:55pm Chronic pruritus chronic October 20, 2024 3:07pm Daytime hypersomnia acute 2024 2:09pm COPD (chronic obstructive pulmonary disease) chronic October 30, 2024 2:09pm Lung nodule chronic October 30, 2024 2:09pm Shortness of breath chronic 2024 2:09pm Celiac disease acute November 092024 2:31pm Crohn's disease acute October 152024 2:31pm Macrocytic anemia acute November 09, 2024 2:31pm GERD (gastroesophageal reflu x disease) chronic November 09 2:31pm Aortic root dilatation acute Fe bru2024 1:15pm Orthostatic hypotension acute F 2024 1:15pm COPD (chronic obstructive pulmonary disease) chronic November 1:15pm Hyperlipidemia chronic November 152024 1:15pm Central sleep apnea acute 2024 2:31pm Obstructive sleep apnea acute F 2024 2:31pm COPD (chronic obstructive pulmonary disease) chronic November 2:31pm Lung nodule chronic November 2:31pm Shortness of breath chronic u 2024 2:31pm Aortic root dilatation acute [facility] 2024 12:36pm BPH with obstruction/lower urinary tract symptoms acute December 12:36pm Central sleep apnea acute December 30, 2024 12:36pm Skin tags, multiple acquired acute December 30, 2024 12:36pm Chronic pruritus chronic December 302024 12:36pm COPD (chronic obstructive pulmonary disease) chronic December 30, 2 025 12:36pm History of stomach ulcers chronic December 30, 2024 12:36pm Celiac disease acute December 5:25am [facility] Work Phone: 1(565) 502-651812-13-2024 Evaluation note* Diagnosis Onset Date Resolution Status Admit Date Oral thrush acute September 1:55pm COPD (chronic obstructive pulmonary disease) chronic September 1:55pm Lung nodule chronic September 1:55pm Shortness of breath chronic Decem cassie 2023 1:55pm Chronic pruritus chronic October 20, 2024 3:07pm Daytime hypersomnia acute 2024 2:09pm COPD (chronic obstructive pulmonary disease) chronic October 30, 2024 2:09pm Lung nodule chronic October 30, 2024 2:09pm Shortness of breath chronic 2024 2:09pm Celiac disease acute November 092024 2:31pm Crohn's disease acute October 152024 2:31pm Macrocytic anemia acute November 09, 2024 2:31pm GERD (gastroesophageal reflu x disease) chronic November 09 2:31pm Aortic root dilatation acute Fe bruary 2024 1:15pm Orthostatic hypotension acute F ebary 2024 1:15pm COPD (chronic obstructive pulmonary disease) chronic November 1:15pm Hyperlipidemia chronic November 152024 1:15pm Central sleep apnea acute u 2024 2:31pm Obstructive sleep apnea acute F ebary 2024 2:31pm COPD (chronic obstructive pulmonary disease) chronic November 2:31pm Lung nodule chronic November 2:31pm Shortness of breath chronic Febru will2024 2:31pm Aortic root dilatation acute [facility] 19th, 2025 12:36pm BPH with obstruction/lower urinary tract symptoms acute December, 2024 12:36pm Central sleep apnea acute December 30, 2024 12:36pm Skin tags, multiple acquired acute December 30, 2024 12:36pm Chronic pruritus chronic December 302024 12:36pm COPD (chronic obstructive pulmonary disease) chronic December 30, 2 025 12:36pm History of stomach ulcers chronic December 30, 2024 12:36pm Celiac disease acute December 5:25am Skin tags, multiple acquired acute January 06, 2025 1:42pm [facility] Work Phone: 1(596) 975-735709-12-2024 History of Present illness Narrative* David Valdes Jr., MD - 06/25/2024 1:00 PM EDT ESTABLISHED PATIENT OFFICE VISIT HPI Eligio Mccabe is a 74 year old male who presents with a history of BPH s/p TRUP. Passed void trial POD1. Voiding well at home. No gross hematuria. No dysuria. Nocturiax2 significantly improved. states patient is a changed person since procedure-very pleased. Pathology: benign prostatic tissue. MEDICATIONS: acetaminophen/diphenhydramine (TYLENOL PM ORAL) Take 2 tablets by mouth daily at bedtime. budesonide, enteric coated (ENTOCORT EC) 3 mg 24 hr capsule Take 6 mg by mouth once daily. OXYGEN, HOME THERAPY, 3 L/min by Nasal Cannula route as directed. Uses 3L via nasal cannula daily and at 4L via Nasal cannula at night fluticasone (FLONASE) 50 mcg/actuation nasal spray Use 2 Sprays in each nostril once daily. docusate sodium (COLACE) 100 mg capsule Take 100 mg by mouth once daily. pantoprazole DR (PROTONIX) 40 mg tablet Take 40 mg by mouth two times a day. pravastatin (PRAVACHOL) 40 mg tablet Take 40 mg by mouth daily at bedtime. MULTIVITAMIN ORAL Take by mouth once daily. carboxymethylcellulose (REFRESH) 0.5 % drop Use 1 Drop in both eyes every 4 hours as needed. 4-6 times daily as needed ipratropium-albuterol (DUONEB) 0.5 mg-3 mg(2.5 mg base)/3 mL nebu Inhale 3 mL as instructed two times a day. Walker misc Rollator walker with seat tamsulosin (FLOMAX) 0.4 mg Take 0.4 mg by mouth once daily. qyfjfhpvqqv-mhxbnqnxm-obgfcmdg (TRELEGY ELLIPTA) 100-62.5-25 mcg inhalation powder Inhale 1 Puff asinstructed once daily. predniSONE (DELTASONE) 10 mg tablet Take 4 tablets daily for 2 days, 2 tablets daily for 2 days, 1 tablet daily for 2 days (Patient not taking: Reported on 02/25/2024) albuterol HFA (PROAIR HFA) 90 mcg/actuation inhaler Inhale 2 Puffs as instructed every 4 hours as needed for Wheezing/Shortness of Breath. gabapentin (NEURONTIN) 600 mg tablet Take 600 mg by mouth three times a day. venlafaxine XR (EFFEXOR XR) 150 mg 24 hr capsule Take 150 mg by mouth once daily. HYDROCODONE/ACETAMINOPHEN (VICODIN ES ORAL) Take 10-325 mg by mouth three times a day. 325 mg 4 x daily (Patient not taking: Reported on 02/25/2024) atenolol 50 mg tablet Take 50 mg by mouth once daily. cyclobenzaprine (FLEXERIL) 10 mg tablet Take 10 mg by mouth three times a day as needed. traZODone 100 mg tablet Take 100 mg by mouth daily at bedtime. zolpidem 10 mg tab Take by mouth at bedtime as needed. Ibuprofen 200 mg cap Take by mouth. 4 tablets prn MULTIVIT &MINERALS/FERROUS FUM (MULTI VITAMIN ORAL) Take 1 tablet by mouth once daily. ranitidine 150 mg tablet Take 150 mg by mouth twice daily. (Patient not taking: Reported on 01/20/2024) GLUCOSAMINE HCL/CHONDR RATLIFF A NA (OSTEO BI-FLEX ORAL) Take 2 tablets by mouth once daily. Review of Systems Constitutional: Negative for activity change and fever. Gastrointestinal: Negative for abdominal distention, abdominal pain and vomiting. Genitourinary: Negative for hematuria. HISTORIES PAST MEDICAL HISTORY 12/03/2023: NELSON (acute kidney injury) (HCC) 12/08/2023: Anemia No date: Back pain No date: Benign prostatic hyperplasia with urinary retention No date: BPH with obstruction/lower urinary tract symptoms No date: Chronic pain No date: Chronic respiratory failure with hypoxia ([facility]) Comment: O2 @ 3L/NC 24x7 No date: COPD (chronic obstructive pulmonary disease) ([facility]) No date: Depressive disorder, not elsewhere classified No date: Drop foot gait No date: Dry eye syndrome of bilateral lacrimal glands No date: Essential (primary) hypertension No date: Essential hypertension, benign No date: Former smoker No date: Gastric ulcer, unspecified as acute or chronic, without hemorrhage or perforation No date: Gastroesophageal reflux disease without esophagitis No date: High cholesterol No date: History of echocardiogram No date: History of GI bleed No date: History of hiatal hernia No date: History of stomach ulcers No date: History of stress test 12/03/2023: Hyperkalemia No date: Hyperlipidemia, unspecified No date: Insomnia, unspecified No date: Irritable bowel syndrome with diarrhea No date: Major depressive disorder, single episode, unspecified No date: Mixed hyperlipidemia No date: Neuropathy No date: Obstructive and reflux uropathy, unspecified No date: Osteoarthrosis, unspecified whether generalized or localized, unspecified site No date: Polyneuropathy, unspecified No date: Retention of urine, unspecified No date: Syncope No date: Tobacco use disorder No date: Unspecified hyperplasia of prostate without urinary obstruction and other lower urinary tract symptoms (LUTS) No date: Unspecified protein-calorie malnutrition ([facility]) No date: Urine retention No date: Wears dentures No date: Wears glasses FAMILY HISTORY Problem Relation Age of Onset Heart Mother Depression Mother Hypertension Father Stroke Father other (Thyroid disorder) Sister SOCIAL HISTORY Social History Tobacco Use Smoking status: Former Current packs/day: 3.00 Average packs/day: 3.0 packs/day for 50.0 years (150.0 ttl pk-yrs) Types: Cigars, Cigarettes Quit date: 2020 Smokeless tobacco: Never Tobacco comments: Smoked different amount over those 50 yrs Vaping Use Vaping status: Never Used Substance Use Topics Alcohol use: Not Currently Drug use: Not Currently Types: Marijuana Comment: only as a teenager did THC, no medical THC card PHYSICAL EXAMINATION There were no vitals taken for this visit. Physical Exam Constitutional: Appearance: Normal appearance. He is normal weight. HENT: Head: Normocephalic. Nose: Nose normal. Cardiovascular: Rate and Rhythm: Normal rate. Musculoskeletal: Cervical back: Normal range of motion. Skin: Capillary Refill: Capillary refill takes less than 2 seconds. Neurological: General: No focal deficit present. Mental Status: He is alert and oriented to person, place, and time. Mental status is at baseline. Psychiatric: Mood and Affect: Mood normal. Behavior: Behavior normal. Thought Content: Thought content normal. Judgment: Judgment normal. ASSESSMENT and PLAN (N40.1, R33.8) Benign prostatic hyperplasia with urinary retention - s/p TURP, tolerated procedure - Pathology: benign prostatic tissue - Continue flomax Ayanna Vázquez MD Urology PGY-4 Pager #[phone] 06/25/2024 12:46 PM I saw and evaluated the patient. Discussed with resident and agree with resident's findings and plan as documented in the resident's note. David Valdes Jr, MD documented in this encounterA[facility]09-[facility]24 NoteHNO ID: [id number] Author: DAVID VALDES JR, MD Service: ? Author Type: Physician Type: Progress Notes Filed: 06/25/2024 13:53 Note Text: ESTABLISHED PATIENT OFFICE VISIT HPI Eligio Mccabe is a 74 year old male who presents with a history of BPH s/p TRUP. Passed void trial POD1. Voiding well at home. No gross hematuria. No dysuria. Nocturiax2 significantly improved. states patient is a changed person since procedure-very pleased. Pathology: benign prostatic tissue. MEDICATIONS: acetaminophen/diphenhydramine (TYLENOL PM ORAL) Take 2 tablets by mouth daily at bedtime. budesonide, enteric coated (ENTOCORT EC) 3 mg 24 hr capsule Take 6 mg by mouth once daily. OXYGEN, HOME THERAPY, 3 L/min by Nasal Cannula route as directed. Uses 3L via nasal cannula daily and at 4L via Nasal cannula at night fluticasone (FLONASE) 50 mcg/actuation nasal spray Use 2 Sprays in each nostril once daily. docusate sodium (COLACE) 100 mg capsule Take 100 mg by mouth once daily. pantoprazole DR (PROTONIX) 40 mg tablet Take 40 mg by mouth two times a day. pravastatin (PRAVACHOL) 40 mg tablet Take 40 mg by mouth daily at bedtime. MULTIVITAMIN ORAL Take by mouth once daily. carboxymethylcellulose (REFRESH) 0.5 % drop Use 1 Drop in both eyes every 4 hours as needed. 4-6 times daily as needed ipratropium-albuterol (DUONEB) 0.5 mg-3 mg(2.5 mg base)/3 mL nebu Inhale 3 mL as instructed two times a day. Walker misc Rollator walker with seat tamsulosin (FLOMAX) 0.4 mg Take 0.4 mg by mouth once daily. svzvzyljdoi-nampoutro-reoxgeyn (TRELEGY ELLIPTA) 100-62.5-25 mcg inhalation powder Inhale 1 Puff as instructed once daily. predniSONE (DELTASONE) 10 mg tablet Take 4 tablets daily for 2 days, 2 tablets daily for 2 days, 1 tablet daily for 2 days (Patient not taking: Reported on 02/25/2024) albuterol HFA (PROAIR HFA) 90 mcg/actuation inhaler Inhale 2 Puffs as instructed every 4 hours as needed for Wheezing/Shortness of Breath. gabapentin (NEURONTIN) 600 mg tablet Take 600 mg by mouth three times a day. venlafaxine XR (EFFEXOR XR) 150 mg 24 hr capsule Take 150 mg by mouth once daily. HYDROCODONE/ACETAMINOPHEN (VICODIN ES ORAL) Take 10-325 mg by mouth three times a day. 325 mg 4 x daily (Patient not taking: Reported on 02/25/2024) atenolol 50 mg tablet Take 50 mg by mouth once daily. cyclobenzaprine (FLEXERIL) 10 mg tablet Take 10 mg by mouth three times a day as needed. traZODone 100 mg tablet Take 100 mg by mouth daily at bedtime. zolpidem 10 mg tab Take by mouth at bedtime as needed. Ibuprofen 200 mg cap Take by mouth. 4 tablets prn MULTIVIT ANDMINERALS/FERROUS FUM (MULTI VITAMIN ORAL) Take 1 tablet by mouth once daily. ranitidine 150 mg tablet Take 150 mg by mouth twice daily. (Patient not taking: Reported on 01/20/2024) GLUCOSAMINE HCL/CHONDR RATLIFF A NA (OSTEO BI-FLEX ORAL) Take 2 tablets by mouth once daily. Review of Systems Constitutional: Negative for activity change and fever. Gastrointestinal: Negative for abdominal distention, abdominal pain and vomiting. Genitourinary: Negative for hematuria. HISTORIES PAST MEDICAL HISTORY 12/03/2023: NELSON (acute kidney injury) ([facility]) 12/08/2023: Anemia No date: Back pain No date: Benign prostatic hyperplasia with urinary retention No date: BPH with obstruction/lower urinary tract symptoms No date: Chronic pain No date: Chronic respiratory failure with hypoxia ([facility]) Comment: O2 @ 3L/NC 24x7 No date: COPD (chronic obstructive pulmonary disease) ([facility]) No date: Depressive disorder, not elsewhere classified No date: Drop foot gait No date: Dry eye syndrome of bilateral lacrimal glands No date: Essential (primary) hypertension No date: Essential hypertension, benign No date: Former smoker No date: Gastric ulcer, unspecified as acute or chronic, without hemorrhage or perforation No date: Gastroesophageal reflux disease without esophagitis No date: High cholesterol No date: History of echocardiogram No date: History of GI bleed No date: History of hiatal hernia No date: History of stomach ulcers No date: History of stress test 12/03/2023: Hyperkalemia No date: Hyperlipidemia, unspecified No date: Insomnia, unspecified No date: Irritable bowel syndrome with diarrhea No date: Major depressive disorder, single episode, unspecified No date: Mixed hyperlipidemia No date: Neuropathy No date: Obstructive and reflux uropathy, unspecified No date: Osteoarthrosis, unspecified whether generalized or localized, unspecified site No date: Polyneuropathy, unspecified No date: Retention of urine, unspecified No date: Syncope No date: Tobacco use disorder No date: Unspecified hyperplasia of prostate without urinary obstruction and other lower urinary tract symptoms (LUTS) No date: Unspecified protein-calorie malnutrition ([facility]) No date: Urine retention No date: Wears dentures No date: Wears glasses FAMILY HISTORY (more content not included)...[facility]08-22-2024 Telephone encounter Note* Telephone Encounter - Debbie Brownlee - 06/04/2024 1:25 PM EDT Spoke to patient's Patient schedule 2023 at 1:00 pm Patient's agrees and understands Thank you Debbie [facility]08-22-2024 Miscellaneous Notes* Telephone Encounter - Debbie Brownlee - 06/04/2024 1:25 PM EDT Spoke to patient's Patient schedule 2023 at 1:00 pm Patient's agrees and understands Thank you Debbie * Telephone Encounter - David Valdes Jr., MD - 06/04/2024 11:01 AM EDT [facility] [place] or 06/04/24 Fu with me 2-3 weeks documented in this encounterAdena [facility]08-22-2024 Telephone encounter Note * Telephone Encounter - David Valdes Jr., MD - 06/04/2024 11:01 AM EDT [facility] [place] or 06/04/24 Fu with me 2-3 weeks [facility] Work Phone: 1(879) 159-174608-22-2024 NoteHNO ID: [id number] Author: ANGY BASS RN Service: Care Management Author Type: Registered Nurse Type: Care Mgt Initial Assessment Filed: 06/04/2024 09:59 Note Text: CARE MANAGEMENT: ASSESSMENT AND DISCHARGE PLAN SERVICE DATE: June 04, 2024 SERVICE TIME: 956 PCP: Shalini Ferrari DO, DO Primary Contact: Extended Emergency Contact Information Primary Emergency Contact: Frederick Spears (HCPOA) Address: [address] [place] [address] [place] Mobile Relation: Significant other Secondary Emergency Contact: Joshua Mcfadden (HCPOA 2) Mobile Relation: Friend Preferred language: ALBAN[place] Washing Machine Operator needed? No Admission Status: Observation Insurance Provider: MEDICARE A AND B Discharge Planning requested by: Per Department Practice Potential Transition Plans No Services Indicated;Home Advance Directives Current Advance Directive: Living Will;Health Care Power of Fire Officer In Chart: Yes Up To Date and Valid: Yes Current Living Arrangements and Support Lives with: Spouse/significant other Type of Residence: Private Residence (House) Does the patient have to climb stairs at home?: Yes Support: manager operational/social media director, Family members, Friends/neighbors, Spouse/significant other, Social Agency How do you manage to accomplish the following: Independent: Ambulation;Bathe/Shower;Dress;Meals/Meal Prep;Going to the bathroom;Medication Management;Transportation to appointments/community Current Services/Equipment Current Post-Acute Service(s): DME, Oxygen Current O2 Usage (device, rate, continuous/pulse and hrs per day): 3 LPM, 4 LPM, nasal cannula, continuous Current DME Type: Nebulizer, Oxygen Discharge Planning Patient Goal(s): General wellness, Be able to go home, Independent living, Less pain [place] of Choice Explained: [place] of [place] Given: No Reason Not Given: No placements necessary Are you interested in bedside delivery of your medications? Yes Discharge Planning Participant(s): Patient Patient/Family Comments: Caregiver Assessment: Caregiver is ready, willing and able to meet the patient's needs as recommended by the inter-professional team: No Caregiver needed Transport at Discharge: Transportation Arrangements: Car Destination: Home Needs Prior to Discharge: Needs Prior to Discharge: To Be Determined;Discharge Prescriptions;Pharmacy Bedside Delivery;Patient/Family;Other: See Comment (medical clearance) Patient/Family: Education Post-Acute Discharge Plan: From home with S.O. and independent prior to admission. No AD for ambulation. Retired/drives. On 3LNC during the day and 4LNC hs, at baseline. +AD. Rocha discontinued this morning. Plan to return home with self-care, once medically cleared. Will have transport. No TCC needs identified. SIGNATURE: Angy Bass RN PATIENT NAME: Eligio Mccabe DATE: June 04, 2024 TIME: 9:57 AM CONTACT #: [id number] Note HNO ID: [id number] Author: SHALINI HERNANDEZ MD Service: Urology Author Type: Resident Type: Progress Notes Filed: 06/04/2024 15:06 Note Text: Attestation signed by Shalini Hernandez MD at 06/04/2024 3:06 PM Urology Attending Attestation: I saw and evaluated the patient. Discussed with the resident and agree with resident's findings and plan as documented in the resident's note. Shalini Hernandez MD [facility] [place] [facility] UROLOGY PROGRESS NOTE PATIENT NAME: Eligio Mccabe DATE OF : 1950 ADMISSION DATE: 06/03/2024 7:31 AM Subjective Patient is resting comfortably and examined at bedside this morning. Denied fever/chills, nausea/vomiting, chest pain, SOB, or abdominal pain. Tolerating diet. Sat on 99% with NC, on O2 2.5L (baseline: 3L). CBI clamped during rounds. Objective VS: BP 126/56 Pulse 61 Temp 36.5 ?C (97.7 ?F) (Oral) Resp 18 Ht 182.9 cm (6') Wt 88.6 kg (195 lb 5.2 oz) SpO2 99% BMI 26.49 kg/m? I AND O - 24hr: Intake/Output Summary (Last 24 hours) at 06/04/2024 0602 Last data filed at 06/04/2024 0356 Gross per 24 hour Intake 1440 ml Output 42615 ml Net -19744 ml Physical Exam: General: Neck: Resp: Abdomen: No acute distress Supple Normal effort Soft, non-tender, non-distended : No bilateral flank or suprapubic TTP. 3-way catheter CBI with grade I urine this AM. Labs and Imaging Studies LABS: BMP: Recent Labs 06/04/2443 NA 134* K 5.1 CHLOR 107 CO2 18* BUN 20 CREAT 0.97 GLUC 101* CBC: Recent Labs 06/04/2443 WBC 8.22 HB 10.4* HCT 35.2* PLT 182 Urinalysis: No results found for: PH, SPGR, UGLUC, UBILI, UKET, UHB, UPROT, UROBIL, NITRITES, UWBC, SSA Urine Culture: Assessment/Plan ASSESSMENT: 74 year old male with a history of BPH with urinary retention s/p TURP, POD#1 PLAN: - Diet: regular - Pain control PRN - Encouraged ambulation and IS use - Trend labs: WBC: 8.22 Hb: 10.4 Cr: 0.97 Na: 134 - CBI clamped this AM; team to re-evaluate urine later this AM - Surgical pathology: in process - Anticipate likely discharge after passing VT - Continue IVF and scheduled meds - Please page resident with questions or concerns Esther Frias MS4 I agree with the medical student's assessment and plan. Appropriate changes made by myself. Patient independently seen and examined. Blade Allen MD PGY-5, Urology June 04, 2024 Pager #[phone]-21-2024 NoteHNO ID: [id number] Author: MARY MELLO APRN.HIGHWAY ENGINEERING TEACHER Service: ? Author Type: Nurse Air Route Traffic Controller Type: Anesthesia Procedure Notes Filed: 06/03/2024 10:11 Note Text: ANESTHESIOLOGY PROCEDURE NOTE Airway General Information Procedure Start Time/Medication Administration: 06/03/2024 9:46 AM Procedure End Time: 06/03/2024 9:50 AM Patient location during procedure: OR Timeout Performed Pre-procedure: timeout performed Consent Obtained: Yes Patient identity confirmed: arm band Staffing HIGHWAY ENGINEERING TEACHER: Mary Mello APRN.HIGHWAY ENGINEERING TEACHER Performed by: OLMAN Indications and Patient Condition Indications for airway management: anesthesia Final Airway Details Final airway type: endotracheal airway Final Endotracheal Airway: ETT Cuffed: yes Successful intubation technique: video laryngoscopy Devices used: FreeDrive Endotracheal tube insertion site: oral Blade: Seth Blade size: #4 ETT size (mm): 7.5 Measured from: lips Measurement (cm): 22 Placement verified by: capnometry Cormack-Lehane Classification: grade I - full view of glottis Number of attempts at approach: 1 Failed airway: no Unrecognized esophageal intubation: no Airway not difficult Comments Attempted LMA placement without adequate seat or seal; unable to achieve adequate tidal volumes- decision made to intubate Atraumatic intubation SIGNATURE: Mary Mello APRN.CRNA PATIENT NAME: Eligio Mccabe DATE: June 03, 2024 TIME: 10:03 AM CSN: [id number] Telephone encounter Note* Telephone Encounter - David Valdes Jr., MD - 05/27/2024 7:36 PM EDT Urine cx+ Abx sent [facility]08-14-2024 Miscellaneous Notes* Telephone Encounter - David Valdes Jr., MD - 05/27/2024 7:36 PM EDT Urine cx+ Abx sent documented in this encounterAdena [facility]08-08-2024 Telephone encounter Note * Telephone Encounter - Christy Bernal MA - 05/21/2024 1:16 PM EDT Merna with [employer] advised -speciated UCX. Christy Bernal MA [facility]08-08-2024 Miscellaneous Notes* Telephone Encounter - Christy Bernal MA - 05/21/2024 1:16 PM EDT Merna with [employer] advised -speciated UCX. Christy Bernal MA documented in this encounterAdena [facility] Center08-07-2024 History and physical note * Michele Easley APRN.RIDING SILKS CUSTODIAN - 05/20/2024 1:40 PM EDT Images from the original note were not included. [facility] HISTORY AND PHYSICAL EXAMINATION SERVICE DATE: 05/19/2024 SERVICE TIME: 1:49 PM PRIMARY CARE PHYSICIAN: No primary care provider on file. Assessment Patient has the following medical conditions which may affect lexus-operative course: Pre-op exam See note for medical conditions which may affect lexus-operative course that were addressed at today's visit. Benign prostatic hyperplasia with urinary retention Surgery scheduled 06/03/[address] Valdes Chronic obstructive pulmonary disease, unspecified (HCC) On 3L NC Albuterol inhaler- instructed to continue if needed and bring on day of surgery Budesonide enteric- instructed to continue as prescribed Duoneb- instructed to continue if needed Trelegy- instructed to continue as prescribed Uses albuterol inhaler weekly No ED visits or hospitalizations for resp problems within the last 6 months Hypertension Controlled Atenolol- instructed to continue morning of surgery Hyperlipidemia, unspecified Controlled Pravastatin- instructed to continue as prescribed Gastric ulcer, unspecified as acute or chronic, without hemorrhage or perforation Protonix BID- instructed to continue as prescribed No abdominal pain, n/v, or hematemesis Lund Activity Status Index: METS: Walk a block or two on level ground (2.75 METs) DASI Score: 2.75 Patient denies any chest pain or undue shortness of breath with the above physical activity. ARISCAT Score: Age: 51-80 Preoperative SpO2: >=96% Respiratory infection in the last month: No Preoperative anemia: No Surgical incision: peripheral Duration of surgery: <2 hrs Emergency procedure: No ARISCAT Score: 3 ANESTHESIA FINDINGS: Intubation History: No prior intubation Significant Anesthesia Considerations: none Airway History: No prior intubation I - PHYSICAL EVALUATION AIRWAY Patient intubated: No. DENTAL Dentures, upper: complete. Dentures, lower: partial. II - ANESTHESIA PLAN Anesthetic Plan: general Beta Danitza Monitoring Plan Post Procedure Analgesic Plan Prepared for Surgery: CONSULTS: Patient does not require consults for optimization at this time Planned Anesthetic: general REASON FOR VISIT: Eligio Mccabe is a 73 year old male who is scheduled for Procedure(s): CYSTOSCOPY, RESECTION PROSTATE TRANSURETHRAL (N/A) at the request of Dr. Valdes, David Whitehead Jr., MD for routine H&P. My final recommendation will be communicated back to the requesting physician by way of shared medical record or letter. Subjective The patient has the following: ACTIVE PROBLEM LIST Pre-Op Exam Benign Prostatic Hyperplasia With Urinary Retention Anemia, Unspecified Chronic Obstructive Pulmonary Disease, Unspecified (Hcc) Gastric Ulcer, Unspecified As Acute Or Chronic, Without Hemorrhage Or Perforation Hyperlipidemia, Unspecified Hypertension Major Depressive Disorder, Single Episode, Unspecified COVID-19 Immunization Status Overdue - Covid-19 Vaccine ( season) Overdue since 06/14/2023 08/15/2022 Imm Admin: COVID-19 vaccine, age 12+ yr, bivalent (PFIZER-BIONTECH) 09/14/2021 Imm Admin: COVID-19 original vaccine, age 12+ yr, monovalent (PFIZER- BIONTECH - PURPLE TOP) 01/13/2021 Imm Admin: COVID-19 original vaccine, age 12+ yr, monovalent (PFIZER- BIONTECH - PURPLE TOP) Only the first 3 history entries have been loaded, but more history exists. CHIEF COMPLAINT: The reason for this visit is to perform a comprehensive review of the patient's past medical history, assess their current health status and obtain any additional testing required based on anesthesia guidelines. We will also identify any potential anesthesia problems or contraindications to the planned procedure. HPI: Patient is a 73 year old male who presents for pre surgical testing. He has been having urinary retention issues since 11/2023, presents with rocha catheter. Denies any pain around Rocha site, nohematuria noted. After discussion with the surgeon the patient agrees to surgical intervention. REVIEW OF SYSTEMS: General: Negative for: unintentional weight change, weight loss >10% of BW in last 6 months, malaise and fever. Neurological: Negative for: headaches, seizures, TIA and strokes. Respiratory: 3L NC Positive for: COPD. Negative for: asthma, pneumonia within 6 weeks, URI < 2 weeks and obstructive sleep apnea. Cardiovascular: Positive for: hyperlipidemia and hypertension Negative for: atrial fibrillation, CAD, chest pain, CHF and DVT/PE. GI: Negative for: abdominal pain, GERD, nausea and vomiting. : Negative for: dysuria, hematuria and renal failure. Endocrine: Negative for: diabetes mellitus, hypothyroidism and hyperparathyroidism. Hematology: Negative for: anemia, factor V Leiden and von Willebrand disease. Oncology: No history of CA metastasis, chemo within 30 days, or radiotherapy within 90 days. No history of oncological symptoms or problems. Psych: Negative for: anxiety and depression. Musculoskeletal: Negative for: back pain and joint pain. Skin: Negative for lesions, rash and itching. PAST MEDICAL HISTORY 12/03/2023: NELSON (acute kidney injury) ([facility]) 12/08/2023: Anemia No date: Back pain No date: Benign prostatic hyperplasia with urinary retention No date: BPH with obstruction/lower urinary tract symptoms No date: Chronic pain No date: Chronic respiratory failure with hypoxia ([facility]) Comment: O2 @ 3L/NC 24x7 No date: COPD (chronic obstructive pulmonary disease) ([facility]) No date: Depressive disorder, not elsewhere classified No date: Drop foot gait No date: Dry eye syndrome of bilateral lacrimal glands No date: Essential (primary) hypertension No date: Essential hypertension, benign No date: Former smoker No date: Gastric ulcer, unspecified as acute or chronic, without hemorrhage or perforation No date: Gastroesophageal reflux disease without esophagitis No date: High cholesterol No date: History of echocardiogram No date: History of GI bleed No date: History of hiatal hernia No date: History of stomach ulcers No date: History of stress test 12/03/2023: Hyperkalemia No date: Hyperlipidemia, unspecified No date: Insomnia, unspecified No date: Irritable bowel syndrome with diarrhea No date: Major depressive disorder, single episode, unspecified No date: Mixed hyperlipidemia No date: Neuropathy No date: Obstructive and reflux uropathy, unspecified No date: Osteoarthrosis, unspecified whether generalized or localized, unspecified site No date: Polyneuropathy, unspecified No date: Retention of urine, unspecified No date: Syncope No date: Tobacco use disorder No date: Unspecified hyperplasia of prostate without urinary obstruction and other lower urinary tract symptoms (LUTS) No date: Unspecified protein-calorie malnutrition ([facility]) No date: Urine retention No date: Wears dentures No date: Wears glasses PAST SURGICAL HISTORY 12/13/2003: COLONOSCOPY FLX DX W/COLLJ SPEC WHEN PFRMD Comment: Normal colonoscopy 11/14/2013: COLONOSCOPY FLX DX W/COLLJ SPEC WHEN PFRMD Comment: Colonoscopy 12/13/2003: EGD TRANSORAL BIOPSY SINGLE/MULTIPLE Comment: Gastritis 01/02/2024: PAST SURGICAL HISTORY OF Comment: esophagogastro duodenoscopy: [facility] 12/09/2023: PAST SURGICAL HISTORY OF Comment: bleeding ulcer cauterization: [facility] 05/24/2021: PAST SURGICAL HISTORY OF Comment: Thoracostom to drain infection- empysema: [place], [place] No date: PT ED PULMONARY FAMILY HISTORY Problem Relation Age of Onset Heart Mother Depression Mother Hypertension Father Stroke Father other (Thyroid disorder) Sister Social History Tobacco Use Smoking status: Former Packs/day: 3.00 Years: 50.00 Additional pack years: 0.00 Total pack years: 150.00 Types: Cigars, Cigarettes Quit date: 2020 Years since quittin.6 Smokeless tobacco: Never Tobacco comments: Smoked different amount over those 50 yrs Vaping Use Vaping Use: Never used Substance Use Topics Alcohol use: Not Currently Drug use: Not Currently Types: Marijuana Comment: only as a teenager did THC, no medical THC card Prior to Admission medications as of 05/20/24 1322 Medication Sig Last Dose Taking budesonide, enteric coated (ENTOCORT EC) 3 mg 24 hr capsule Take 6 mg by mouth once daily. Taking Yes OXYGEN, HOME THERAPY, 3 L/min by Nasal Cannula route as directed. Uses 3L via nasal cannula daily and at 4L via Nasal cannula at night Taking Yes fluticasone (FLONASE) 50 mcg/actuation nasal spray Use 2 Sprays in each nostril once daily. Taking Yes docusate sodium (COLACE) 100 mg capsule Take 100 mg by mouth once daily. Taking Yes pantoprazole DR (PROTONIX) 40 mg tablet Take 40 mg by mouth two times a day. Taking Yes pravastatin (PRAVACHOL) 40 mg tablet Take 40 mg by mouth daily at bedtime. Taking Yes MULTIVITAMIN ORAL Take by mouth once daily. Taking Yes ipratropium-albuterol (DUONEB) 0.5 mg-3 mg(2.5 mg base)/3 mL nebu Inhale 3 mL as instructed two times a day. Taking Yes tamsulosin (FLOMAX) 0.4 mg Take 0.4 mg by mouth once daily. Taking Yes vjfnaiuvgod-bpuwnehnu-udttslsb (TRELEGY ELLIPTA) 100-62.5-25 mcg inhalation powder Inhale 1 Puff asinstructed once daily. Taking Yes albuterol HFA (PROAIR HFA) 90 mcg/actuation inhaler Inhale 2 Puffs as instructed every 4 hours as needed for Wheezing/Shortness of Breath. Taking Yes atenolol 50 mg tablet Take 50 mg by mouth once daily. Taking Yes traZODone 100 mg tablet Take 100 mg by mouth daily at bedtime. Taking Yes MULTIVIT &MINERALS/FERROUS FUM (MULTI VITAMIN ORAL) Take 1 tablet by mouth once daily. Taking Yes GLUCOSAMINE HCL/CHONDR RATLIFF A NA (OSTEO BI-FLEX ORAL) Take 2 tablets by mouth once daily. Taking Yes acetaminophen/diphenhydramine (TYLENOL PM ORAL) Take 2 tablets by mouth daily at bedtime. carboxymethylcellulose (REFRESH) 0.5 % drop Use 1 Drop in both eyes every 4 hours as needed. 4-6 times daily as needed Walker misc Rollator walker with seat predniSONE (DELTASONE) 10 mg tablet Take 4 tablets daily for 2 days, 2 tablets daily for 2 days, 1 tablet daily for 2 days Patient not taking: Reported on 02/25/2024 gabapentin (NEURONTIN) 600 mg tablet Take 600 mg by mouth three times a day. venlafaxine XR (EFFEXOR XR) 150 mg 24 hr capsule Take 150 mg by mouth once daily. HYDROCODONE/ACETAMINOPHEN (VICODIN ES ORAL) Take 10-325 mg by mouth three times a day. 325 mg 4 x daily Patient not taking: Reported on 02/25/2024 cyclobenzaprine (FLEXERIL) 10 mg tablet Take 10 mg by mouth three times a day as needed. zolpidem 10 mg tab Take by mouth at bedtime as needed. Ibuprofen 200 mg cap Take by mouth. 4 tablets prn ranitidine 150 mg tablet Take 150 mg by mouth twice daily. Patient not taking: Reported on 01/20/2024 No medication comments found. ALLERGIES Allergen Reactions Aspirin Compound GI Upset History of gastric ulcer x2 with ASA use. Objective PHYSICAL EXAM: General: alert and oriented. Chronically ill-appearing. Skin: normal color, no rash or lesions. HEENT: pupils equal round. Cardiovascular: regular rate and rhythm, normal S1 and S2, no rub, murmurs, or gallop. Respiratory: normal breath sounds, no wheezes or crackles. No chest wall deformity or tenderness. On 3L NC. Abdomen: bowel sounds present and soft. Pertinent negatives noted - not tender. Rocha catheter in place. Extremities: no deformity, no edema or tenderness, no joint swelling or clubbing. Neurological: normal cognition and motor skills. Gait normal. No weakness or sensory deficit. PAIN ASSESSMENT: VITALS: BP 124/74 Pulse 62 Temp 98.2 Resp 16 Ht 6' 0 (1.83m) Wt 181 lb (82.1kg) SpO2 98% BMI24.54 kg/(m^2). Diagnostic tests reviewed for today's visit: Lab Value Units Date High Low HB No results within date range. HCT No results within date range. WBC No results within date range. PLT No results within date range. NA No results within date range. K No results within date range. GLUC No results within date range. BUN No results within date range. CREAT No results within date range. PTSEC No results within date range. INR No results within date range. APTT No results within date range. ALT No results within date range. AST No results within date range. TBILI No results within date range. TSH No results within date range. Lab Value Units Date High Low HCGQT No results within date range. UHCG No results within date range. HCG, BODY* No results within date range. Lab Value Units Date High Low ABORHD No results within date range. ABSCREEN No results within date range. No results found for: HBA1C No results found for this or any previous visit (from the past 8760 hour(s)). No results found for this or any previous visit (from the past 80460 hour(s)). Implantable Devices: None Assessment/Plan Benign prostatic hyperplasia with urinary retention [N40.1, R33.8] PLAN Planned Procedure: Procedure(s): CYSTOSCOPY, RESECTION PROSTATE TRANSURETHRAL (N/A) The Following Tests/Procedures Have Been Initiated: Urine culture ordered in [facility] per surgeon I spent a total of 40 minutes on the date of the service which included preparing to see the patient, [id number] patient care, completing clinical documentation, obtaining and/or reviewing separately obtained history, performing a medically appropriate examination, and counseling and educating the patient/family/caregiver. Instructions Given to Patient: Instructions located in the after visit summary. Patient given verbal and written preop instructions and voices comprehension and compliance. SIGNATURE: Michele Easley APRN.CNP PATIENT NAME: Eligio Mccabe DATE: May 20, 2024 TIME: 1:47 PM PAGER/CONTACT #: [id number] History and physical note* Michele Easley APRN.CNP - 05/20/2024 1:40 PM EDT Images from the original note were not included. [place] [facility] HISTORY AND PHYSICAL EXAMINATION SERVICE DATE: 05/19/2024 SERVICE TIME: 1:49 PM PRIMARY CARE PHYSICIAN: No primary care provider on file. Assessment Patient has the following medical conditions which may affect lexus-operative course: Pre-op exam See note for medical conditions which may affect lexus-operative course that were addressed at today's visit. Benign prostatic hyperplasia with urinary retention Surgery scheduled 06/03/[address] Valdes Chronic obstructive pulmonary disease, unspecified (HCC) On 3L NC Albuterol inhaler- instructed to continue if needed and bring on day of surgery Budesonide enteric- instructed to continue as prescribed Duoneb- instructed to continue if needed Trelegy- instructed to continue as prescribed Uses albuterol inhaler weekly No ED visits or hospitalizations for resp problems within the last 6 months Hypertension Controlled Atenolol- instructed to continue morning of surgery Hyperlipidemia, unspecified Controlled Pravastatin- instructed to continue as prescribed Gastric ulcer, unspecified as acute or chronic, without hemorrhage or perforation Protonix BID- instructed to continue as prescribed No abdominal pain, n/v, or hematemesis Lund Activity Status Index: METS: Walk a block or two on level ground (2.75 METs) DASI Score: 2.75 Patient denies any chest pain or undue shortness of breath with the above physical activity. ARISCAT Score: Age: 51-80 Preoperative SpO2: >=96% Respiratory infection in the last month: No Preoperative anemia: No Surgical incision: peripheral Duration of surgery: <2 hrs Emergency procedure: No ARISCAT Score: 3 ANESTHESIA FINDINGS: Intubation History: No prior intubation Significant Anesthesia Considerations: none Airway History: No prior intubation I - PHYSICAL EVALUATION AIRWAY Patient intubated: No. DENTAL Dentures, upper: complete. Dentures, lower: partial. II - ANESTHESIA PLAN Anesthetic Plan: general Beta Danitza Monitoring Plan Post Procedure Analgesic Plan Prepared for Surgery: CONSULTS: Patient does not require consults for optimization at this time Planned Anesthetic: general REASON FOR VISIT: Eligio Mccabe is a 73 year old male who is scheduled for Procedure(s): CYSTOSCOPY, RESECTION PROSTATE TRANSURETHRAL (N/A) at the request of Dr. Valdes, David Whitehead Jr., MD for routine H&P. My final recommendation will be communicated back to the requesting physician by way of shared medical record or letter. Subjective The patient has the following: ACTIVE PROBLEM LIST Pre-Op Exam Benign Prostatic Hyperplasia With Urinary Retention Anemia, Unspecified Chronic Obstructive Pulmonary Disease, Unspecified (Hcc) Gastric Ulcer, Unspecified As Acute Or Chronic, Without Hemorrhage Or Perforation Hyperlipidemia, Unspecified Hypertension Major Depressive Disorder, Single Episode, Unspecified COVID-19 Immunization Status Overdue - Covid-19 Vaccine (2022- season) Overdue since 06/14/2023 08/15/2022 Imm Admin: COVID-19 vaccine, age 12+ yr, bivalent (PFIZER-BIONTECH) 09/14/2021 Imm Admin: COVID-19 original vaccine, age 12+ yr, monovalent (PFIZER- BIONTECH - PURPLE TOP) 01/13/2021 Imm Admin: COVID-19 original vaccine, age 12+ yr, monovalent (PFIZER- BIONTECH - PURPLE TOP) Only the first 3 history entries have been loaded, but more history exists. CHIEF COMPLAINT: The reason for this visit is to perform a comprehensive review of the patient's past medical history, assess their current health status and obtain any additional testing required based on anesthesia guidelines. We will also identify any potential anesthesia problems or contraindications to the planned procedure. HPI: Patient is a 73 year old male who presents for pre surgical testing. He has been having urinary retention issues since 11/2023, presents with rocha catheter. Denies any pain around Rocha site, nohematuria noted. After discussion with the surgeon the patient agrees to surgical intervention. REVIEW OF SYSTEMS: General: Negative for: unintentional weight change, weight loss >10% of BW in last 6 months, malaise and fever. Neurological: Negative for: headaches, seizures, TIA and strokes. Respiratory: 3L NC Positive for: COPD. Negative for: asthma, pneumonia within 6 weeks, URI < 2 weeks and obstructive sleep apnea. Cardiovascular: Positive for: hyperlipidemia and hypertension Negative for: atrial fibrillation, CAD, chest pain, CHF and DVT/PE. GI: Negative for: abdominal pain, GERD, nausea and vomiting. : Negative for: dysuria, hematuria and renal failure. Endocrine: Negative for: diabetes mellitus, hypothyroidism and hyperparathyroidism. Hematology: Negative for: anemia, factor V Leiden and von Willebrand disease. Oncology: No history of CA metastasis, chemo within 30 days, or radiotherapy within 90 days. No history of oncological symptoms or problems. Psych: Negative for: anxiety and depression. Musculoskeletal: Negative for: back pain and joint pain. Skin: Negative for lesions, rash and itching. PAST MEDICAL HISTORY 12/03/2023: NELSON (acute kidney injury) ([facility]) 12/08/2023: Anemia No date: Back pain No date: Benign prostatic hyperplasia with urinary retention No date: BPH with obstruction/lower urinary tract symptoms No date: Chronic pain No date: Chronic respiratory failure with hypoxia ([facility]) Comment: O2 @ 3L/NC 24x7 No date: COPD (chronic obstructive pulmonary disease) ([facility]) No date: Depressive disorder, not elsewhere classified No date: Drop foot gait No date: Dry eye syndrome of bilateral lacrimal glands No date: Essential (primary) hypertension No date: Essential hypertension, benign No date: Former smoker No date: Gastric ulcer, unspecified as acute or chronic, without hemorrhage or perforation No date: Gastroesophageal reflux disease without esophagitis No date: High cholesterol No date: History of echocardiogram No date: History of GI bleed No date: History of hiatal hernia No date: History of stomach ulcers No date: History of stress test 12/03/2023: Hyperkalemia No date: Hyperlipidemia, unspecified No date: Insomnia, unspecified No date: Irritable bowel syndrome with diarrhea No date: Major depressive disorder, single episode, unspecified No date: Mixed hyperlipidemia No date: Neuropathy No date: Obstructive and reflux uropathy, unspecified No date: Osteoarthrosis, unspecified whether generalized or localized, unspecified site No date: Polyneuropathy, unspecified No date: Retention of urine, unspecified No date: Syncope No date: Tobacco use disorder No date: Unspecified hyperplasia of prostate without urinary obstruction and other lower urinary tract symptoms (LUTS) No date: Unspecified protein-calorie malnutrition (HCC) No date: Urine retention No date: Wears dentures No date: Wears glasses PAST SURGICAL HISTORY 12/13/2003: COLONOSCOPY FLX DX W/COLLJ SPEC WHEN PFRMD Comment: Normal colonoscopy 11/14/2013: COLONOSCOPY FLX DX W/COLLJ SPEC WHEN PFRMD Comment: Colonoscopy 12/13/2003: EGD TRANSORAL BIOPSY SINGLE/MULTIPLE Comment: Gastritis 01/02/2024: PAST SURGICAL HISTORY OF Comment: esophagogastro duodenoscopy: [facility] 12/09/2023: PAST SURGICAL HISTORY OF Comment: bleeding ulcer cauterization: [facility] 05/24/2021: PAST SURGICAL HISTORY OF Comment: Thoracostom to drain infection- [place]se[place]: [place] No date: PT ED PULMONARY FAMILY HISTORY Problem Relation Age of Onset Heart Mother Depression Mother Hypertension Father Stroke Father other (Thyroid disorder) Sister Social History Tobacco Use Smoking status: Former Packs/day: 3.00 Years: 50.00 Additional pack years: 0.00 Total pack years: 150.00 Types: Cigars, Cigarettes Quit date: 2020 Years since quittin.6 Smokeless tobacco: Never Tobacco comments: Smoked different amount over those 50 yrs Vaping Use Vaping Use: Never used Substance Use Topics Alcohol use: Not Currently Drug use: Not Currently Types: Marijuana Comment: only as a teenager did THC, no medical THC card Prior to Admission medications as of 05/20/24 1322 Medication Sig Last Dose Taking budesonide, enteric coated (ENTOCORT EC) 3 mg 24 hr capsule Take 6 mg by mouth once daily. Taking Yes OXYGEN, HOME THERAPY, 3 L/min by Nasal Cannula route as directed. Uses 3L via nasal cannula daily and at 4L via Nasal cannula at night Taking Yes fluticasone (FLONASE) 50 mcg/actuation nasal spray Use 2 Sprays in each nostril once daily. Taking Yes docusate sodium (COLACE) 100 mg capsule Take 100 mg by mouth once daily. Taking Yes pantoprazole DR (PROTONIX) 40 mg tablet Take 40 mg by mouth two times a day. Taking Yes pravastatin (PRAVACHOL) 40 mg tablet Take 40 mg by mouth daily at bedtime. Taking Yes MULTIVITAMIN ORAL Take by mouth once daily. Taking Yes ipratropium-albuterol (DUONEB) 0.5 mg-3 mg(2.5 mg base)/3 mL nebu Inhale 3 mL as instructed two times a day. Taking Yes tamsulosin (FLOMAX) 0.4 mg Take 0.4 mg by mouth once daily. Taking Yes [id number]-pqlouvvzv-zilfxihi (TRELEGY ELLIPTA) 100-62.5-25 mcg inhalation powder Inhale 1 Puff asinstructed once daily. Taking Yes albuterol HFA (PROAIR HFA) 90 mcg/actuation inhaler Inhale 2 Puffs as instructed every 4 hours as needed for Wheezing/Shortness of Breath. Taking Yes atenolol 50 mg tablet Take 50 mg by mouth once daily. Taking Yes traZODone 100 mg tablet Take 100 mg by mouth daily at bedtime. Taking Yes MULTIVIT &MINERALS/FERROUS FUM (MULTI VITAMIN ORAL) Take 1 tablet by mouth once daily. Taking Yes GLUCOSAMINE HCL/CHONDR RATLIFF A NA (OSTEO BI-FLEX ORAL) Take 2 tablets by mouth once daily. Taking Yes acetaminophen/diphenhydramine (TYLENOL PM ORAL) Take 2 tablets by mouth daily at bedtime. carboxymethylcellulose (REFRESH) 0.5 % drop Use 1 Drop in both eyes every 4 hours as needed. 4-6 times daily as needed Walker misc Rollator walker with seat predniSONE (DELTASONE) 10 mg tablet Take 4 tablets daily for 2 days, 2 tablets daily for 2 days, 1 tablet daily for 2 days Patient not taking: Reported on 02/25/2024 gabapentin (NEURONTIN) 600 mg tablet Take 600 mg by mouth three times a day. venlafaxine XR (EFFEXOR XR) 150 mg 24 hr capsule Take 150 mg by mouth once daily. HYDROCODONE/ACETAMINOPHEN (VICODIN ES ORAL) Take 10-325 mg by mouth three times a day. 325 mg 4 x daily Patient not taking: Reported on 02/25/2024 cyclobenzaprine (FLEXERIL) 10 mg tablet Take 10 mg by mouth three times a day as needed. zolpidem 10 mg tab Take by mouth at bedtime as needed. Ibuprofen 200 mg cap Take by mouth. 4 tablets prn ranitidine 150 mg tablet Take 150 mg by mouth twice daily. Patient not taking: Reported on 01/20/2024 No medication comments found. ALLERGIES Allergen Reactions Aspirin Compound GI Upset History of gastric ulcer x2 with ASA use. Objective PHYSICAL EXAM: General: alert and oriented. Chronically ill-appearing. Skin: normal color, no rash or lesions. HEENT: pupils equal round. Cardiovascular: regular rate and rhythm, normal S1 and S2, no rub, murmurs, or gallop. Respiratory: normal breath sounds, no wheezes or crackles. No chest wall deformity or tenderness. On 3L NC. Abdomen: bowel sounds present and soft. Pertinent negatives noted - not tender. Rocha catheter in place. Extremities: no deformity, no edema or tenderness, no joint swelling or clubbing. Neurological: normal cognition and motor skills. Gait normal. No weakness or sensory deficit. PAIN ASSESSMENT: VITALS: BP 124/74 Pulse 62 Temp 98.2 Resp 16 Ht 6' 0 (1.83m) Wt 181 lb (82.1kg) SpO2 98% BMI24.54 kg/(m^2). Diagnostic tests reviewed for today's visit: Lab Value Units Date High Low HB No results within date range. HCT No results within date range. WBC No results within date range. PLT No results within date range. NA No results within date range. K No results within date range. GLUC No results within date range. BUN No results within date range. CREAT No results within date range. PTSEC No results within date range. INR No results within date range. APTT No results within date range. ALT No results within date range. AST No results within date range. TBILI No results within date range. TSH No results within date range. Lab Value Units Date High Low HCGQT No results within date range. UHCG No results within date range. HCG, BODY* No results within date range. Lab Value Units Date High Low ABORHD No results within date range. ABSCREEN No results within date range. No results found for: HBA1C No results found for this or any previous visit (from the past 8760 hour(s)). No results found for this or any previous visit (from the past 24537 hour(s)). Implantable Devices: None Assessment/Plan Benign prostatic hyperplasia with urinary retention [N40.1, R33.8] PLAN Planned Procedure: Procedure(s): CYSTOSCOPY, RESECTION PROSTATE TRANSURETHRAL (N/A) The Following Tests/Procedures Have Been Initiated: Urine culture ordered in epic per surgeon I spent a total of 40 minutes on the date of the service which included preparing to see the patient, [id number] patient care, completing clinical documentation, obtaining and/or reviewing separately obtained history, performing a medically appropriate examination, and counseling and educating the patient/family/caregiver. Instructions Given to Patient: Instructions located in the after visit summary. Patient given verbal and written preop instructions and voices comprehension and compliance. SIGNATURE: Michele Easley APRN.CNP PATIENT NAME: Eligio Mccabe DATE: May 20, 2024 TIME: 1:47 PM PAGER/CONTACT #: documented in this encounter[facility] Instructions* Patient Instructions* Michele Easley APRN.CNP - 05/20/2024 1:34 PM EDT PATIENT PREOPERATIVE INSTRUCTIONS David Valdes Jr* has scheduled you for your procedure at this surgery center: [facility]: [phone], [address] [address] Please read below carefully for your personalized instructions. Date of Surgery:06/03/24 Arrival Time for Surgery: Your surgeon's office will provide you with your arrival time for surgery if they have not done so already. If you do not have your arrival time for surgery by the afternoon the day before your surgery you can call the surgeon's office. If you are scheduled for a Saturday surgery you can call the Saturday before. -Please be aware that emergency situations arise, which may delay or change your surgical time. If this happens, your surgeon's office will notify you as soon as possible and regret any inconvenience. Dietary Restrictions: - No solid food after midnight. - Between midnight and four hours prior to your surgery time, you may have 12 ounces of clear liquids (water, apple juice, carbonated beverages, Gatorade, black coffee or tea) unless your surgeon specifies otherwise Medications: Pre-Surgery Med Instructions Medication Instructions budesonide, enteric coated (ENTOCORT EC) 3 mg 24 hr capsule Take morning of surgery with sip of water, no other fluids fluticasone (FLONASE) 50 mcg/actuation nasal spray Continue if needed docusate sodium (COLACE) 100 mg capsule Hold morning of surgery pantoprazole DR (PROTONIX) 40 mg tablet Take morning of surgery with sip of water, no other fluids pravastatin (PRAVACHOL) 40 mg tablet Continue as prescribed MULTIVITAMIN ORAL Stop 7 days before surgery ipratropium-albuterol (DUONEB) 0.5 mg-3 mg(2.5 mg base)/3 mL nebu Continue if needed tamsulosin (FLOMAX) 0.4 mg Take morning of surgery with sip of water, no other fluids nigelbpsqka-eihceozma-vojugtci (TRELEGY ELLIPTA) 100-62.5-25 mcg inhalation powder Continue and bring day of surgery albuterol HFA (PROAIR HFA) 90 mcg/actuation inhaler Continue if needed and bring day of surgery atenolol 50 mg tablet Take morning of surgery with sip of water, no other fluids traZODone 100 mg tablet Continue if needed MULTIVIT &MINERALS/FERROUS FUM (MULTI VITAMIN ORAL) Stop 7 days before surgery GLUCOSAMINE HCL/CHONDR RATLIFF A NA (OSTEO BI-FLEX ORAL) Stop 7 days before surgery Blood pressure medications See med list for instructions Take beta danitza day of surgery Do not take HEIDI or ARB medications day of surgery Weight loss medications Sympathomimetics such as Adipex-P (Phentermine): Stop 4 days before surgery. Contrave (Naltrexone/Bupropion) Hold 2-3 days. Qsymia (Phentermine/Topiramate - Please contact your prescribing provider for Pre op directions. ( depending on the patients dose this medication may need tapered off. They should get pre op directions from their prescribing provider.) GLP-1 Agonists (oral and injectables) Hold 7 days. Blood Thinning Medications: - Stop NSAIDS (Ibuprofen, Advil, Aleve, Motrin, Celebrex, Mobic, etc.) 7 days before surgery, as directed by your surgeon. - You may take Tylenol (Acetaminophen) or any of your current prescribed pain medications that do not contain aspirin or NSAIDS as needed. - If you take any of the following blood thinners, please contact your surgeon and the physician who prescribes it for you in order to get perioperative instructions as soon as possible Blood thinners: Aspirin,Coumadin, Plavix, Eliquis, Pradaxa, Xarelto, Lovenox, Brilinta, Effient, Savaysa, etc. Supplements - Stop Vitamin E, fish oil, Ginko, [place]'s Wort, flax seed oil, multivitamins, CBD oil, marijuana and other over the counter herbals and dietary supplements 7 days before surgery. This would not apply to cancer patients who are prescribed Marinol or any other prescription form of marijuana or CBD. If you are taking Phentermine please hold 4 days prior to surgery. Pain medications Approved pain medications can be taken the morning of surgery with a sip of water. Erectile dysfunction medications If you take any medications for erectile dysfunction-Cialis (Tadalafil), Levitra, Staxyn (Vardenafil) Viagra (Sildenenafil please do not take these for 48 hours before surgery. If you start any new medications after today's visit, please contact the surgeon's office. Important Reminders: - If you use CPAP/BIPAP, bring the machine with you to the hospital if you are scheduled to stay over night. - If you are prescribed inhalers for breathing, continue using them AND bring them to the surgery center. - Candy, mints, gum and tobacco products are NOT permitted the morning of surgery. - Hearing aids, dentures and glasses may be worn the morning of surgery. - NO jewelry, body piercings, makeup, hairpins or contacts are to be worn the day of surgery. - NO lotion, creams, powders or deodorants on the skin the day of surgery - You will need to have someone else (Family or friend) drive you home once discharged from the hospital. You cannot take a cab or Uber. You are not allowed to drive yourself home after surgery. -You will need an adult(over the age of 18) to stay with you for the first 24 hours post surgery oryour surgery may be cancelled. Please speak with your surgeon if this is an issue. If you develop symptoms such as a fever, cold, or flu, or have other changes to your health within TWO DAYS of scheduled surgery or the morning of surgery, please contact the surgery center above. Personal Belongings: - Leave ALL valuables and money at home or with family members. - You will need a form of ID and insurance card to check in the morning of surgery. - You will have to wear a hospital gown during your stay but if you wish to bring undergarments forafter surgery you may. -If you do not have a copy of advance directives on file with us, please bring a copy with you on the day of surgery. If you already have an Advance Directive, please fax a copy to [phone] or email to for it to be added to your chart. If you do not have an Advance Directive, you can find the appropriate form and more information at [email or web address]. We recommend that youcomplete the Advance Directive form found on the website and bring it with you the day of your surgery. It can be witnessed and scanned into your chart that day. Please note-you should have a 72-hour period between getting your vaccine and date of surgery - If you have a stimulator, implant or pump that requires a remote please bring the remote with youday of surgery Michele Easley APRN.[employer] C[employer]ODIAN documented in this encounterAden[facility]07-16-2024 NoteHNO ID: [id number] Author: CHERI HAILE LPN Service: ? Author Type: LICENSED NURSE Type: Progress Notes Filed: 04/28/2024 15:01 Note Text: CC Rocha catheter in Place HPI: Eligio Mccabe is a 73 year old male. The patient is here now for a rocha catheter change with diagnosis of BPH with obstruction/lower urinary tract symptoms. Procedure: Performed a catheter change. Removed fluid from balloon in the rocha. The indwelling rocha catheter size 16 Fr Coude was removed with catheter tip intact without difficulty. Inserted 18 Fr coude catheter using aseptic technique. Immediate return of dark yellow urine with sediment throughout. Irrigated with 60 mL 0.9% sodium chloride without difficulties. 60 mLs clear yellow urine return noted. Bulb inflated with 10 mLs prefilled syringe- sterile water. Catheter secured to left inner thigh. Patient using drainage bag and has it higher than recommended but is not open to education of increased urinary tract infections when drainage bag higher than bladder. His states they will lower drainage bag once home. The patient tolerated the procedure well. Reviewed catheter care and verbalizes understanding. Assessment/Plan: Successful catheter change. Return for catheter changes as planned. [facility] History of Present illness Narrative* Cheri Haile LPN - 04/28/2024 2:39 PM EDT CC Rocha catheter in Place HPI: Eligio Mccabe is a 73 year old male. The patient is here now for a rocha catheter change with diagnosis of BPH with obstruction/lower urinary tract symptoms. Procedure: Performed a catheter change. Removed fluid from balloon in the rocha. The indwelling rocha catheter size 16 Fr Coude was removedwith catheter tip intact without difficulty. Inserted 18 Fr coude catheter using aseptic technique.Immediate return of dark yellow urine with sediment throughout. Irrigated with 60 mL 0.9% sodium chloride without difficulties. 60 mLs clear yellow urine return noted. Bulb inflated with 10 mLs prefilled syringe- sterile water. Catheter secured to left inner thigh. Patient using drainage bag and has it higher than recommended but is not open to education of increased urinary tract infections whendrainage bag higher than bladder. His states they will lower drainage bag once home. The patient tolerated the procedure well. Reviewed catheter care and verbalizes understanding. Assessment/Plan: Successful catheter change. Return for catheter changes as planned. Cheri Haile LPN documented in this encounterAdena [facility]06-18-2024 NoteHNO ID: [id number] Author: DAVID VALDES JR, MD Service: ? Author Type: Physician Type: Procedures Filed: 03/31/2024 09:29 Note Text: CYSTOSCOPY PROCEDURE NOTE: Eligio Mccabe is a 73 year old male who presents with urinary retention and BPH for cystoscopy. Pt ID verified with patient: Yes Fire risk assessment done Procedure verified with patient: Yes Procedure confirmed with physician and residential direct support professional: Yes UNIVERSAL PROTOCOL / SAFETY CHECKLIST Procedure to be Performed: cysto Sign In: A Moment of CARE was completed. Personnel directly involved with the procedure wore the appropriate PPE (Personal Protective Equipment). Patient/Surrogate Stated/Verified: PATIENT VERIFIED(optional for EMERGENT procedures): Patient name, Date of , Relevant allergies, and The intended procedure Time Out Communication: Intended patient and procedure match the source documents. Consent documented and matches the intended procedure. Sign Out: SIGN OUT (optional for EMERGENT procedures): No specimen collected. David Valdes Jr, MD Pre procedure dx: bph, urinary retention Post procedure dx: same A urinalysis was performed revealing no evidence of infection. The benefits, risks, alternatives of the cystoscopy procedure and personnel were discussed with the patient. The verbal consent was obtained and the patient agrees to proceed. Procedure: The patient was placed on the procedure table in the supine position and prepped and draped in the usual sterile fashion. 2% Lidocaine Jelly was placed per urethra as an anesthetic in the standard fashion. Once adequate local anesthesia was achieved, the tip of the flexible cystoscope was carefully placed into the urethra under direct visual guidance. The scope was negotiated through the pendulous urethra to the level of the bulbar urethra with no evidence of stricture. 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 The bladder was entered and careful powers endoscopy was carried out. The posterior, superior and lateral brown and dome of the bladder were all well visualized and the scope was retroflexed upon itself. The findings were consistent with no evidence of bladder mucosal pathology. At the conclusion of the procedure, the flexible cystoscope was removed atraumatically. The patient tolerated the procedure without complications. Patient was given standard post-procedure instructions, and was directed to complete the course of oral antibiotics and increase oral fluid intake as directed. ASSESSMENT/PLAN: Cysto - obstructing trilobar hypertrophy UDS - atonic Motivated to get catheter out Understands that turp may not work but is only thing we can try at this point cysto, transurethral resection of the prostate All r/b/a of surgery discussed, infection, bleeding, damage to nearby structures, repeat surgery, nodular regrowth, bladder neck contracture, incontinence, impotence, lower urinary tract symptoms, repeat catheterizations. , heart attack, stroke, deep vein thrombosis, pulmonary embolus. Patient verbalized understanding and agrees to proceed. David Valdes Jr, [facility]06-18-2024 Procedure note* David Valdes Jr., MD - 03/31/2024 9:27 AM EDT CYSTOSCOPY PROCEDURE NOTE: Eligio Mccabe is a 73 year old male who presents with urinary retention and BPH for cystoscopy. Pt ID verified with patient: Yes Fire risk assessment done Procedure verified with patient: Yes Procedure confirmed with physician and residential direct support professional: Yes UNIVERSAL PROTOCOL / SAFETY CHECKLIST Procedure to be Performed: cysto Sign In: A Moment of CARE was completed. Personnel directly involved with the procedure wore the appropriate PPE (Personal Protective Equipment). Patient/Surrogate Stated/Verified: PATIENT VERIFIED(optional for EMERGENT procedures): Patient name, Date of , Relevant allergies, and The intended procedure Time Out Communication: Intended patient and procedure match the source documents. Consent documented and matches the intended procedure. Sign Out: SIGN OUT (optional for EMERGENT procedures): No specimen collected. David Valdes Jr, MD Pre procedure dx: bph, urinary retention Post procedure dx: same A urinalysis was performed revealing no evidence of infection. The benefits, risks, alternatives of the cystoscopy procedure and personnel were discussed with thepatient. The verbal consent was obtained and the patient agrees to proceed. Procedure: The patient was placed on the procedure table in the supine position and prepped and draped in the usual sterile fashion. 2% Lidocaine Jelly was placed per urethra as an anesthetic in the standard fashion. Once adequate local anesthesia was achieved, the tip of the flexible cystoscope was carefully placed into the urethra under direct visual guidance. The scope was negotiated through the pendulous urethra to the level of the bulbar urethra with no evidence of stricture. 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 The bladder was entered and careful powers endoscopy was carried out. The posterior, superior and lateral brown and dome of the bladder were all well visualized and the scope was retroflexed upon itself. The findings were consistent with no evidence of bladder mucosal pathology. At the conclusion of the procedure, the flexible cystoscope was removed atraumatically. The patienttolerated the procedure without complications. Patient was given standard post-procedure instructions, and was directed to complete the course of oral antibiotics and increase oral fluid intake as directed. ASSESSMENT/PLAN: Cysto - obstructing trilobar hypertrophy UDS - atonic Motivated to get catheter out Understands that turp may not work but is only thing we can try at this point cysto, transurethral resection of the prostate All r/b/a of surgery discussed, infection, bleeding, damage to nearby structures, repeat surgery, nodular regrowth, bladder neck contracture, incontinence, impotence, lower urinary tract symptoms, repeat catheterizations. , heart attack, stroke, deep vein thrombosis, pulmonary embolus. Patient verbalized understanding and agrees to proceed. David Valdes Jr, MD [facility]06-18-[facility] Procedure note* David Valdes Jr., MD - 03/31/2024 9:27 AM EDT CYSTOSCOPY PROCEDURE NOTE: Eligoi Mccabe is a 73 year old male who presents with urinary retention and BPH for cystoscopy. Pt ID verified with patient: Yes Fire risk assessment done Procedure verified with patient: Yes Procedure confirmed with physician and residential direct support professional: Yes UNIVERSAL PROTOCOL / SAFETY CHECKLIST Procedure to be Performed: cysto Sign In: A Moment of CARE was completed. Personnel directly involved with the procedure wore the appropriate PPE (Personal Protective Equipment). Patient/Surrogate Stated/Verified: PATIENT VERIFIED(optional for EMERGENT procedures): Patient name, Date of , Relevant allergies, and The intended procedure Time Out Communication: Intended patient and procedure match the source documents. Consent documented and matches the intended procedure. Sign Out: SIGN OUT (optional for EMERGENT procedures): No specimen collected. David Valdes Jr, MD Pre procedure dx: bph, urinary retention Post procedure dx: same A urinalysis was performed revealing no evidence of infection. The benefits, risks, alternatives of the cystoscopy procedure and personnel were discussed with thepatient. The verbal consent was obtained and the patient agrees to proceed. Procedure: The patient was placed on the procedure table in the supine position and prepped and draped in the usual sterile fashion. 2% Lidocaine Jelly was placed per urethra as an anesthetic in the standard fashion. Once adequate local anesthesia was achieved, the tip of the flexible cystoscope was carefully placed into the urethra under direct visual guidance. The scope was negotiated through the pendulous urethra to the level of the bulbar urethra with no evidence of stricture. 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 The bladder was entered and careful powers endoscopy was carried out. The posterior, superior and lateral brown and dome of the bladder were all well visualized and the scope was retroflexed upon itself. The findings were consistent with no evidence of bladder mucosal pathology. At the conclusion of the procedure, the flexible cystoscope was removed atraumatically. The patienttolerated the procedure without complications. Patient was given standard post-procedure instructions, and was directed to complete the course of oral antibiotics and increase oral fluid intake as directed. ASSESSMENT/PLAN: Cysto - obstructing trilobar hypertrophy UDS - atonic Motivated to get catheter out Understands that turp may not work but is only thing we can try at this point cysto, transurethral resection of the prostate All r/b/a of surgery discussed, infection, bleeding, damage to nearby structures, repeat surgery, nodular regrowth, bladder neck contracture, incontinence, impotence, lower urinary tract symptoms, repeat catheterizations. , heart attack, stroke, deep vein thrombosis, pulmonary embolus. Patient verbalized understanding and agrees to proceed. David Valdes Jr, MD documented in this encounterAdena [facility]06-17-2024 Nurse Note* Luis Ramirez MA - 03/30/2024 10:24 AM EDT 18f coude silicone cath removed for procedure, Clinic did not have 18f Coude Silicone caths in stock, per Dr. Valdes 16 f coude Silicone cath was placed after the procedure. Luis Ramirez MA [facility]06-17-[facility] Nurse Note* Luis Ramirez MA - 03/30/2024 10:24 AM EDT 18f coude silicone cath removed for procedure, Clinic did not have 18f Coude Silicone caths in stock, per Dr. Valdes 16 f coude Silicone cath was placed after the procedure. Luis Ramirez MA documented in this encounterAdena [facility]05-17-2024 NoteHNO ID: [id number] Author: DAVID VALDES JR, MD Service: ? Author Type: Registered Nurse Type: Progress Notes Filed: 03/07/2024 11:31 Note Text: Eligio Mccabe [id number] 1950 February 28, 2024 Diagnoses: Urinary Retention UA done: No Procedure Performed: Multichannel urodynamic testing including multichannel cystometrogram, pressure voiding study, and EMG. Was a uroflow done at some point during the study: No Was a cystometrogram performed: Yes Was a UPP done: No Was an EMG done: Yes Was an intraabdominal pressure recorded: Yes Where were pressure catheters placed: Bladder and rectum Procedure: The patient verified medications and allergies. The procedure was explained to the patient. Immediately prior to the test the patient was given Keflex 500 mg #1 by mouth and Lidocaine 2% jelly 11 ml to urethra per order. UNIVERSAL PROTOCOL / SAFETY CHECKLIST A moment to CARE: Completed Procedure to be performed: Urodynamics Sign in Communication: Completed Time Out: Team Confirms the Correct Patient, Correct Procedure, Correct Site and Site Marking, Correct Position (if applicable), Prep and Dry Time (if applicable). Time: 1300 Affirmation of Time Out: N/A Sign Out Discussion: Completed Urodynamic Findings: Uroflow : Patient arrived with a rocha catheter- Yes, Specify 18 F Coude Silicone. Patient voided N/A ml; Curve: N/A Post void residual N/A ml QMAX N/A ; QAVG N/A . Cystometrogram: The patient had a cystometrogram EMG: Yes First Sensation 190 ml First desire 239 ml Strong Desire 285 ml Capacity 317 ml The patient did not leak with cough. no destrusor contractions Instability associated with urge: No Instability associated with leakage: No Pressure-Flow Voiding Study: EMG: Yes Void 0 ml; Curve: N/A Post void residual: 375 ml Maximum detrusor pressure N/A Cm H20 Maximum flow rate: N/A ml/sec Average flow rate: N/A ml/sec UDS notes: N/A Plan: Patient will follow up with provider to discuss plan of care and results. Patient tolerated the procedure well. Home going instructions given. Patient able to repeat back understanding of instructions. Charmaine Sands RN cc: Suraj Valdes MD Urodynamic Results Uroflow - not interpreted PVR Flow CMG First sensation 190 Max volume 317 Uninhibited bladder contractions no Leakage no EMG nl Nl compliance UPP - not interpreted Leakage MUCP Pressure Flow PVR 375 Flow 0 EMG nl No detrusor pressure Summary Atonic bladder David Valdes , [facility]05-17-2024 History of Present illness Narrative* Charmaine Sands RN - 02/28/2024 2:20 PM EDT Eligio Mccabe [id number] 1950 February 28, 2024 Diagnoses: Urinary Retention UA done: No Procedure Performed: Multichannel urodynamic testing including multichannel cystometrogram, pressure voiding study, and EMG. Was a uroflow done at some point during the study: No Was a cystometrogram performed: Yes Was a UPP done: No Was an EMG done: Yes Was an intraabdominal pressure recorded: Yes Where were pressure catheters placed: Bladder and rectum Procedure: The patient verified medications and allergies. The procedure was explained to the patient. Immediately prior to the test the patient was given Keflex 500 mg #1 by mouth and Lidocaine 2% jelly 11 ml to urethra per order. UNIVERSAL PROTOCOL / SAFETY CHECKLIST A moment to CARE: Completed Procedure to be performed: Urodynamics Sign in Communication: Completed Time Out: Team Confirms the Correct Patient, Correct Procedure, Correct Site and Site Marking, Correct Position (if applicable), Prep and Dry Time (if applicable). Time: 1300 Affirmation of Time Out: N/A Sign Out Discussion: Completed Urodynamic Findings: Uroflow : Patient arrived with a rocha catheter- Yes, Specify 18 F Coude Silicone. Patient voided N/A ml; Curve: N/A Post void residual N/A ml QMAX N/A ; QAVG N/A . Cystometrogram: The patient had a cystometrogram EMG: Yes First Sensation 190 ml First desire 239 ml Strong Desire 285 ml Capacity 317 ml The patient did not leak with cough. no destrusor contractions Instability associated with urge: No Instability associated with leakage: No Pressure-Flow Voiding Study: EMG: Yes Void 0 ml; Curve: N/A Post void residual: 375 ml Maximum detrusor pressure N/A Cm H20 Maximum flow rate: N/A ml/sec Average flow rate: N/A ml/sec UDS notes: N/A Plan: Patient will follow up with provider to discuss plan of care and results. Patient tolerated the procedure well. Home going instructions given. Patient able to repeat back understanding of instructions. Charmaine Sands RN cc: Suraj Valdes MD documented in this encounterAdena Regional Medical [facility]05-17[facility]24 Instructions* Patient Instructions* Charmaine Sands RN - 02/28/2024 12:53 PM EDT POST PROCEDURE INSTRUCTIONS Eligio L Issa February 28, 2024 Increase your fluid intake. FOLLOW UP APPOINTMENT: 03.30.24 at 10:30 am with Suraj Valdes MD in the [facility] [facility], [address], [place] [address] office. WHEN TO CALL THE DOCTOR: If you develop fever (over 101 degrees) or chills. If you cannot urinate or empty your bladder. If you develop symptoms of a urinary tract infection such as burning or pain with urination, increased frequency of urination or foul smelling urine If you have any other questions or problems. Office phone number; [phone] documented in this encounterAdena [facility]24 Telephone encounter Note * Telephone Encounter - Michelle Mena - 02/26/2024 11:29 AM EDT Pt confirmed UDS @ [facility] 02/28/24 @ 1:00. Cysto/Trus in [place] with Dr. Valdes 03/30/24. Ref by BMooney. Douglass [facility]05-15-2024 Miscellaneous Notes* Telephone Encounter - Michelle Mena - 02/26/2024 11:29 AM EDT Pt confirmed UDS @ [facility] 02/28/24 @ 1:00. Cysto/Trus in [place] with Dr. Valdes 03/30/24. Ref by BMooney. Douglass documented in this encounterAdena Regional Medical Center05-14-2024 History of Present illness Narrative* Natalia King PA-C - 02/25/2024 5:31 PM EDT Images from the original note were not included. [facility] ESTABLISHED PATIENT CLINIC NOTE SERVICE DATE: February 25, 2024 NAME: Eligio Mccabe CC: Urinary Retention HPI: Eligio Mccabe is a 73 year old male with a history of Urinary Retention Rocha catheter exchanges monthly , he has been on Flomax and reduced his opioid medecation The patient is here now for a TOV and rocha catheter removal. PROCEDURE: Performed a TOV. Patient presents for trial of voiding. Bladder filled with 300 cc of sterile water, balloon deflated, rocha catheter removed without difficulty, balloon intact. Patient voided 0 cc's Rocha then reinserted. 18 Straight would not advance past the prostate, order to change from straight to coude givenper Natalia King PA-C . 18 Coude rocha inserted without difficulty. 400ml of urine mixed with saline drained. Pt tolerated well. New cath secure and bedside bag given. Court Paul MA ASSESSMENT / PLAN > Rocha catheter removed during TOV , patient unable to urinate on his own, 18f coude catheter replaced > Discussed surgical options for urine retention, but will need UDS and Cysto/TRUS then surgicalconsult to discuss options > Follow-up monthly for rocha exchanges until procedures are perfomed Natalia King, MPAS, MT, DEVIN * Court Paul MA - 02/25/2024 2:56 PM EDT Patient presents for trial of voiding. Bladder filled with 300 cc of sterile water, balloon deflated, rocha catheter removed without difficulty, balloon intact. Patient voided 0 cc's Rocha then reinserted. 18 Straight would not advance past the prostate, order to change from straight to coude givenper Natalia King PA-C . 18 Coude rocha inserted without difficulty. 400ml of urine mixed with saline drained. Pt tolerated well. New cath secure and bedside bag given. Court Paul MA documented in this encounterAdena [facility] Medical Center05-14-2024 NoteHNO ID: [id number] Author: NATALIA KING PA-C Service: ? Author Type: Physician Director Of Preclinical Research Type: Progress Notes Filed: 02/25/2024 17:43 Note Text: [facility] ESTABLISHED PATIENT CLINIC NOTE SERVICE DATE: February 25, 2024 NAME: Eligio Mccabe CC: Urinary Retention HPI: Eligio Mccabe is a 73 year old male with a history of Urinary Retention Rocha catheter exchanges monthly , he has been on Flomax and reduced his opioid medecation The patient is here now for a TOV and rocha catheter removal. PROCEDURE: Performed a TOV. Patient presents for trial of voiding. Bladder filled with 300 cc of sterile water, balloon deflated, rocha catheter removed without difficulty, balloon intact. Patient voided 0 cc's Rocha then reinserted. 18 Straight would not advance past the prostate, order to change from straight to coude given per Natalia King PA-C . 18 Coude rocha inserted without difficulty. 400ml of urine mixed with saline drained. Pt tolerated well. New cath secure and bedside bag given. Court Paul MA ASSESSMENT / PLAN > Rocha catheter removed during TOV , patient unable to urinate on his own, 18f coude catheter replaced > Discussed surgical options for urine retention, but will need UDS and Cysto/TRUS then surgical consult to discuss options > Follow-up monthly for rocha exchanges until procedures are perfomed Natalia King MPAS, [place], PA-CClSelect Medical [facility]05-14-2024 NoteHNO ID: [id number] Author: COURT PAUL MA Service: ? Author Type: Filter Changer Type: Progress Notes Filed: 02/25/2024 17:43 Note Text: Patient presents for trial of voiding. Bladder filled with 300 cc of sterile water, balloon deflated, rocha catheter removed without difficulty, balloon intact. Patient voided 0 cc's Rocha then reinserted. 18 Straight would not advance past the prostate, order to change from straight to coude given per Natalia King PA-C . 18 Coude rocha inserted without difficulty. 400ml of urine mixed with saline drained. Pt tolerated well. New cath secure and bedside bag given. Court Paul [facility]04-30-2024 Telephone encounter Note* Telephone Encounter - David Wang RN - 02/11/2024 8:11 AM EDT STACY 01/21/24 NOV 02/25/24 Pt. Has catheter change on 02/25/24 but would like to try a TOV instead. [facility]04-30-2024 Miscellaneous Notes* Telephone Encounter - David Wang RN - 02/11/2024 8:11 AM EDT STACY 01/21/24 NOV 02/25/24 Pt. Has catheter change on 02/25/24 but would like to try a TOV instead. documented in this encounterAdena Regional Medical Center04-10-2024 Miscellaneous Notes* Telephone Encounter - Cheri Haile LPN - 01/22/2024 11:06 AM EDT Faxed office visit notes. Cheri Haile LPN * Telephone Encounter - Cheri Haile LPN - 01/22/2024 11:04 AM EDT Called [employer] for fax number to fax last office visit notes to: [phone]. Cheri Haile LPN documented in this encounterAdena Regional Medical Center04-09-2024 NoteHNO ID: [id number] Author: NATALIA KING PA-C Service: ? Author Type: Physician Director Of Preclinical Research Type: Progress Notes Filed: 01/21/2024 17:23 Note Text: CC Trial of Void HPI: Eligio Mccabe is a 73 year old male. [address] catheter [address] The patient is here now for a TOV and rocha catheter removal. Procedure: Perform a TOV. Bladder filled through rocha with 200 mL of sterile water/ 0.9% Sodium chloride, removed fluid from balloon and the rocha was removed with catheter intact and patient voided 0 mL. Patient was not able to empty his bladder on own without straining. The indwelling rocha was removed without difficulty. The patient tolerated the procedure well. Inserted 18 Fr catheter using aseptic technique. Irrigated with 60 mL sterile water without difficulties. 350 mLs slightlycloudy, yellow urine return noted. Bulb inflated with 10 mLs prefilled syringe- sterile water. Catheter secured to right inner thigh with stat lock and leg strap. The patient tolerated the procedure well. Reviewed catheter care- states he is at [facility] and staff do care of rocha catheter. Assessment/Plan: > Rocha catheter removal with TOV. > Unsuccessful rocha catheter removal. > Rocha cathter inserted. Return as instructed every 4-6 weeks for catheter changes if needed at clinic. Cheri Haile LPN > Discussed potential of urine retention due to being on Opioid medication which is known to cause urine retention He also has a history of BPH, I recommend reduction of opioid medication and remain on Flomax and can repeat a TOV at that time > Also gave the option of learning how to perform CIC instead of use of rocha, not interested at this time but will follow-up if he would Like to learn > We will continue monthly rocha exchanges for the near future. Natalia King, MARIIA, MT, PA-CClSelect Medical [facility]04-09-2024 History of Present illness Narrative* Natalia King PA-C - 01/21/2024 4:13 PM EDT CC Trial of Void HPI: Eligio Mccabe is a 73 year old male. [address] catheter [address] The patient is here now for a TOV and rocha catheter removal. Procedure: Perform a TOV. Bladder filled through rocha with 200 mL of sterile water/ 0.9% Sodium chloride, removed fluid from balloon and the rocha was removed with catheter intact and patient voided 0 mL. Patient was not able to empty his bladder on own without straining. The indwelling rocha was removed without difficulty. The patient tolerated the procedure well. Inserted 18 Fr catheter using aseptic technique. Irrigated with 60 mL sterile water without difficulties. 350 mLs slightlycloudy, yellow urine return noted. Bulb inflated with 10 mLs prefilled syringe- sterile water. Catheter secured to right inner thigh with stat lock and leg strap. The patient tolerated the procedure well. Reviewed catheter care- states he is at [facility] and staff do care of rocha catheter. Assessment/Plan: > Rocha catheter removal with TOV. > Unsuccessful rocha catheter removal. > Rocha cathter inserted. Return as instructed every 4-6 weeks for catheter changes if needed atclinmoody. Cheri Haile LPN > Discussed potential of urine retention due to being on Opioid medication which is known to cause urine retention He also has a history of BPH, I recommend reduction of opioid medication and remain on Flomax and can repeat a TOV at that time > Also gave the option of learning how to perform CIC instead of use of rocha, not interested atthis time but will follow-up if he would Like to learn > We will continue monthly rocha exchanges for the near future. MARIIA Ramos, [place], DEVIN documented in this encounterAdena Regional Medical Center04-05-2024 Miscellaneous Notes* Telephone Encounter - Cheri Haile LPN - 01/17/2024 2:52 PM EDT Received medical records from [facility]. Uploaded to [employer] in [employer] via [employer]. Cheri Haile LPN * Telephone Encounter - Cheri Haile LPN - 01/16/2024 11:29 AM EDT Visit notes from [facility] received- uploaded to scanned docs in [employer] via [employer]. Cheri Haile LPN * Telephone Encounter - Cheri Haile LPN - 01/14/2024 3:35 PM EDT Called patient. Frederick answered call- she [facility] due to enlarged prostate and he has had rocha catheter in since. Patient was then transferred to [facility]. Frederick states they have not changed rocha catheter since his admission that she is aware of. Per Frederick she will have [facility] fax medical records for upcoming appointment. [facility] records requested via staff with [employer] access. Cheri Haile LPN documented in this encounterAdena Regional Medical Center03-21-2024 Procedure [facility]03-21-2024 Procedure [facility]02-28-2024 Consult note Author Gabby Morales [facility] December 11, 2023 12:06pm Note Date/Time December 11, 2023 12:06pm [facility] Medical Records Department [address] [place] [id number] Counseling Note - Pharmacy 12/11/23 1206 MR#: [id number] Acct: [id number] Name: ELIGIO MCCABE Rep #:[id number] 2 : 1950 73 From: Gabby Morales PCP: Dr. Shalini Ferrari, DO Status:AD M IN Y Location: [facility] [id number] Pharmacy [place] Med Reconciliation Pharmacy Service has performed discharge medication reconciliation for this patient. The patient's discharge medication list was reviewed for discrepancies and discrepancies were resolved. Medications at Discharge Home Medications multivitamin 1 tab PO DAILY supplement 07/01/21 glucosamine-chondroitin 250 mg-200 mg tablet (Osteo Bi-Flex) 2 tab PO DAILY 01/12/23 pravastatin 40 mg tablet 40 mg PO QHS #90 tabs 03/13/23 atenolol 50 mg tablet 50 mg PO DAILY #90 tabs 03/26/23 docusate sodium 100 mg capsule (Colace) 100 mg PO DAILY Constipation 08/01/23 fluticasone propionate 50 mcg/actuation nasal spray,suspension 2 spray intranasal DAILY #16 grams 08/20/23 albuterol sulfate 90 mcg/actuation aerosol inhaler See Rx Instructions .Route .COMPLEX #8.5 grams 10/22/23 carboxymethylcellulose sodium 0.5 % eye drops (Refresh Tears) 1 drp ophthalmic (eye) 4-6XD PRN dry eye(s) 10/22/23 ipratropium 0.5 mg-albuterol 3 mg (2.5 mg base)/3 mL nebulization soln 3 ml inhalation BID shortness of breath or wheezing #180 mL 10/22/23 rollator walker with seat #1 ea 11/05/23 trazodone 100 mg tablet 100 mg PO QHS #90 tabs 11/06/23 hydrocodone 10 mg-acetaminophen 325 mg tablet 1 tab PO TID 1 month #90 tabs 11/20/23 pantoprazole 40 mg tablet,delayed release 40 mg PO BID #60 tabs 12/11/23 tamsulosin 0.4 mg capsule 0.4 mg PO DAILY@1730 #30 caps 12/11/23 12/11/23 1206 <Electronically signed by Gabby Morales> Date _ Gabby Morales Cosigner Signature (if applicable): Date CC: ~ Signed [facility] Work Phone: 1(888) 751-352502-28-2024 Discharge summary Author Trinidad Alarcon [facility] December 11, 2023 3:07pm Note Date/Time December 11, 2023 11:58am [facility] Medical Records Department [address] [place] [address] Discharge Summary 12/11/23 1158 MR#: [id number] Acct: [id number] Name: ELIGIO MCCABE Rep #:[id number] 3 : 1950 73 From: Trinidad Alarcon MD PCP: Dr. Shalini Ferrari, DO Status:AD M IN Location: [facility] [id number] Providers Date of Admission: 12/03/23 Date of Discharge: 12/11/23 Primary Care Physician: Dr. Shalini Ferrari, DO Consultations 12/03/23 21:00 Consult: International Operations Manager / Pulmonary Medicine Routine Consulting Provider: Sammy Ferrari Reason for Consult: Hyperkalemia, NELSON EMERGENT Consult: No MD Notified: Yes Date Notified: 12/03/23 Time Notified: 19:37 Method of Notification: Text Comments:: Can be notified of admit in AM. Consult: Nephrology Routine Consulting Provider: Suzanne Ferrer Reason for Consult: NELSON, Hyperkalemia EMERGENT Consult: No Notified: Yes Date Notified: 12/04/23 Time Notified: 08:33 Method of Notification: Answering Service 12/08/23 10:00 Consult: Gastroenterology Routine Consulting Provider: Genny [facility] Reason for Consult: anemia, positive stool occult blood EMERGENT Consult: No Notified: Yes Date Notified: 12/08/23 Time Notified: 10:01 Method of Notification: Text Reason For Visit: NELSON, HYPERKALEMIA Diagnosis Discharge Diagnosis (1) NELSON (acute kidney injury): Status: Acute Code(s): N17.9 - Acute kidney failure, unspecified Plan: #NELSON with hyperkalemia * Resolved. Creatinine down to normal. on flomax. * Will need follow-up with urology on outpatient basis and will need to be discharged with Rocha catheter in situ. NELSON was likely due to urine outlet obstruction. * Nephrology on board. * #COPD in the setting of chronic respiratory failure * On 2 L of oxygen. * Breathing treatments bronchodilators. Titrate oxygen to maintain saturation above 90%. Not in exacerbation. #Left lower lobe consolidation due to presumptive pneumonia * Chest x-ray showed left lower lobe and lingula consolidations. Patient denies any cough and is on his baseline 2 L of oxygen. Started on IV ceftriaxone and azithromycin empirically. * Urine for strep and Legionella negative. * Sputum cultures growing Staph aureus E. coli * on bactrim. * * #Anemia * Hb today is 9. Was transfused with drains of packed red blood cells yesterday. * Had EGD yesterday which showed bleeding peptic ulcer. Currently on IV pantoprazole 40 mg twice daily. * GI on board. For gastric nuclear emptying study today. * * #Hyperkalemia: Likely due to NELSON. Resolved. #Hypokalemia:resolved. #Hypertension: Lisinopril held due to NELSON and hyperkalemia. On atenolol. IV hydralazine as needed. BP has remained fairly stable. #Hyperlipidemia: On statin #GERD: stool for occult blood positive. IV PPI DVT prophylaxis: SCDs. DC heparin due to anemia and positive occult blood. Disposition: Awaiting placement. Case management on board. Medications at Discharge Home Medications multivitamin 1 tab PO DAILY supplement 07/01/21 glucosamine-chondroitin 250 mg-200 mg tablet (Osteo Bi-Flex) 2 tab PO DAILY 01/12/23 pravastatin 40 mg tablet 40 mg PO QHS #90 tabs 03/13/23 atenolol 50 mg tablet 50 mg PO DAILY #90 tabs 03/26/23 docusate sodium 100 mg capsule (Colace) 100 mg PO DAILY Constipation 08/01/23 fluticasone propionate 50 mcg/actuation nasal spray,suspension 2 spray intranasal DAILY #16 grams 08/20/23 albuterol sulfate 90 mcg/actuation aerosol inhaler See Rx Instructions .Route .COMPLEX #8.5 grams 10/22/23 carboxymethylcellulose sodium 0.5 % eye drops (Refresh Tears) 1 drp ophthalmic (eye) 4-6XD PRN dry eye(s) 10/22/23 ipratropium 0.5 mg-albuterol 3 mg (2.5 mg base)/3 mL nebulization soln 3 ml inhalation BID shortness of breath or wheezing #180 mL 10/22/23 rollator walker with seat #1 ea 11/05/23 trazodone 100 mg tablet 100 mg PO QHS #90 tabs 11/06/23 hydrocodone 10 mg-acetaminophen 325 mg tablet 1 tab PO TID 1 month #90 tabs 11/20/23 pantoprazole 40 mg tablet,delayed release 40 mg PO BID #60 tabs 12/11/23 tamsulosin 0.4 mg capsule 0.4 mg PO DAILY@1730 #30 caps 12/11/23 Hospital Course Operations None Procedures EGD Summary of Care Provided Minutes Spent on Discharge: 55 Hospital Course: Patient is a 73-year-old male with past medical history as outlined was admittedto the ED on 12/03/2023 with a complaint of inability to urinate for 48 hours prior to admission. He had assisted suprapubic discomfort but denied any fever or chills. He had confusion and agitation also and family felt it might be due to the urinary retention so he was brought into the ED. Rocha catheter insertedimmediately drained 2 L of urine in the ED. Labs done was significant for potassium was 8.4 which was slightly hemolyzed, bicarb of 19 and anion gap of 10with creatinine of 8.75 and calcium of 11.6. CBC was largely unremarkable apartfrom hemoglobin of 9.5. Chest imaging showed lower left lobe airspace disease. CT of the abdomen and pelvis showed bilateral nonobstructing nephroliths with possible mild left hydronephrosis with no definitive radiodensity ureterolith. He was admitted and managed for postobstructive NELSON in the setting of urinary retention. He had Rocha catheter inserted. He was started on Flomax. He was initially admitted to the ICU on account of hyperkalemia. He was given Kayexalate and creatinine gradually trended down. Nephrology was consulted. His hospital course was complicated with acute on chronic anemia requiring bloodtransfusions. Stool for occult blood was positive and iron panel showed iron deficiency anemia. Gastroenterology was therefore consulted. He had EGD which showed he had a bleeding peptic ulcer. He was placed on p.o. pantoprazole 40 mgtwice daily. Patient felt much better and did well with physical therapy. He was skilled as needing SNF. He was therefore discharged custodial facility on 12/11/2023. He is follow-up with his primary care doctor and nephrology within 1 to 2 weeks. Of note, patient was on lisinopril and this wasdiscontinued due to his NELSON and hyperkalemia. Patient seen and examined prior to discharge. He felt well and had no complaints. He had an uneventful night. Review of systems otherwise negative. Labs and vitals reviewed. Home medication reviewed and reconciled. Physical Exam Const alert, oriented x3 and no apparent distress Constitutional Narrative: frail, elderly General Appearance: cooperative and comfortable HEENT normocephalic, head/scalp atraumatic, hearing grossly normal bilaterally and moist oral mucous membranes Mouth: oral and palatal mucosa normal Eyes PERRL and EOMs intact bilaterally Neck no lymphadenopathy, supple and no JVD Lymph Lymphatic: no lymphadenopathy noted and no lymphedema noted Resp Resp Narrative: mildly diminished breath sounds bibasally, no wheezes or crackles.On room air. Cardio regular rate, regular rhythm, S1 normal heart sound, S2 normal heart sound and no murmurs GI normal to inspection, nondistended, normoactive bowel sounds, soft to palpation,non-tender and non-distended Extremity normal to inspection, full ROM, normal capillary refill, no clubbing, cyanosis or edema and no calf tenderness General Extremity: no tenderness to palpation of joints or extremities Skin no rashes or lesions noted General Skin Exam: no breakdown Neuro oriented x3, CN's II-XII intact bilaterally, moves all extremities, no focal motor deficits and no sensory deficits noted Sensorium / Orientation: awake and alert Motor Exam: strength 5/5 throughout and general weakness Psych thought process normal and cooperative Appearance: appropriate Weight / BMI Weight Weight: 139 lb 1.787 oz Body Mass Index (BMI) 18.8 ABG / Lab / Microbiology Data 12/11/23 06:10 12/09/23 04:40 Laboratory: Laboratory Results - last 24 hr 12/11/23 06:10: WBC 9.1, RBC 2.72 L, Hgb 9.0 L, Hct 27.1 L, MCV 99.6 H, MCH 33.1H, MCHC 33.2, RDW Std Deviation 62.9 H, RDW Coeff of Issa 17.2 H, Plt Count 264, MPV 9.0, Immature Gran % (Auto) 1.300 H, Neut % (Auto) 65.8, Lymph % (Auto) 11.6L, Faulkner % (Auto) 9.7, Eos % (Auto) 10.7 H, Baso % (Auto) 0.9, Absolute Neuts (auto) 6.0, Absolute Lymphs (auto) 1.05, Nucleated RBC % 0 Microbiology: Microbiology 12/07/23 13:40 Sputum, Expectorated/Coughed Gram Stain - Final 12/07/23 13:40 Sputum, Expectorated/Coughed Respiratory Culture - Final Presumptive C albicans 12/07/23 16:15 Stool Stool Occult Blood (SINDY) - Final Occult Blood Positive 12/04/23 07:00 Sputum, Expectorated/Coughed Gram Stain - Final 12/04/23 07:00 Sputum, Expectorated/Coughed Respiratory Culture - Final Escherichia coli Staphylococcus aureus 12/03/23 17:06 Urine Catheter - Catheter Urine Culture - Final Culture exhibits no growth. 12/03/23 22:30 Mucosa - Nasopharyngeal Respiratory Panel (PCR) - Final 12/03/23 17:05 Urine Catheter - Catheter Legionella Antigen - Final 12/03/23 17:05 Urine Catheter - Catheter Streptococcus pneumoniae Antigen (M- Final Radiography Diagnostic Testing: Radiology Impression Gastric Emptying Nuclear Medicine 12/10/23 09:00 IMPRESSION: 1. NORMAL 99m Tc sulfur colloid semi-solid phase (oatmeal) gastric emptying imaging examination. A. There is normal and preserved semi-solid phase gastric emptying compared to normal controls. (Elham et al, J Nucl Med Tech 38: 186, 2010). Electronically Signed: Severino Gordon DO at 15:45 EST , D/C Instructions Discharge Diet: Low fat / Low cholesterol Discharge Activity: Return to Normal Activity Weight Bearing Status: Weight bearing as tolerated Call your doctor if you observe: Fever of 101 or Higher, Shortness of breath, Swelling in the ankles, Chest pain and Increased palpitations (irregular heartbeat) Meaningful Use Info Meaningful Use Diagnoses (Choose all that apply): None applicable Discharge Plan Admission Admit Date/Time: 12/03/23 19:30 Primary Reason for Your Visit: NELSON, hyperkalemia,anemia Attending Provider: Trinidad Alarcon Primary Care Provider: Shalini Ferrari Consulting Providers: Mariann Clancy; Suzanne Ferrer Discharge Orders/Prescriptions Prescriptions: New tamsulosin 0.4 mg Capsule 0.4 mg PO DAILY@1730 Qty: 30 2RF pantoprazole 40 mg tablet,delayed release (DR/EC) 40 mg PO BID Qty: 60 2RF Continued docusate sodium [Colace] 100 mg capsule 100 mg PO DAILY glucosamine-chondroitin [Osteo Bi-Flex] 250-200 mg tablet 2 tab PO DAILY Rx Instructions: as directed orally; atenolol 50 mg tablet 50 mg PO DAILY Qty: 90 3RF fluticasone propionate 50 mcg/actuation spray,suspension 2 spray intranasal DAILY Qty: 16 3RF carboxymethylcellulose sodium [Refresh Tears] 0.5 % drops 1 drp ophthalmic (eye) 4-6XD PRN (Reason: dry eye(s)) ipratropium-albuterol 0.5 mg-3 mg(2.5 mg base)/3 mL solution for nebulization 3 ml inhalation BID Qty: 180 11RF hydrocodone-acetaminophen 10-325 mg tablet 1 tab PO TID 30 Days Qty: 90 0RF multivitamin Tablet 1 tab PO DAILY Hold Instructions: Home Medication placed on hold at Doctor's office pravastatin 40 mg tablet 40 mg PO QHS Qty: 90 3RF albuterol sulfate 90 mcg/actuation HFA aerosol inhaler See Rx Instructions .ROUTE .COMPLEX Qty: 8.5 2RF Dose Instruction: INHALE TWO PUFFS BY MOUTH EVERY 6 HOURS NEEDED Rx Instructions: INHALE TWO PUFFS BY MOUTH EVERY 6 HOURS NEEDED (DME) rollator walker with seat See Rx Instructions .Route .MEDSUPPLY Qty: 1 0RF Rx Instructions: Patient needs walking assistance due to debilitation. Foot drop, COPD, and syncopal episodes. trazodone 100 mg tablet 100 mg PO QHS Qty: 90 0RF Discontinued lisinopril 10 mg tablet 10 mg PO 1600 Qty: 90 3RF pantoprazole 40 mg tablet,delayed release (DR/EC) 40 mg PO QAM Qty: 90 3RF Referrals / Follow Up: Shalini Ferrari DO [Primary Care Provider] - Within 2 Weeks Suzanne Ferrer MD [Med Staff - Consulting] - Within 2 Weeks Perez Perez MD [Med Staff - Active Staff] - Within 2 Weeks Disposition Disposition (needs filled in before D/C Order can be placed): Longterm Facility Charges/Coding Visit Charges Inpatient E&M: 33579 Disch Hosp >30min 12/11/23 1507 <Electronically signed by Trinidad Alarcon MD> Cosigner Signature (if applicable): CC: Dr. Shalini Ferrari DO; Dr. Trinidad Alarcon MD~ Signed [facility] Work Phone: [phone]) 246-244702-28-2024 Discharge summary Author Trinidad [facility] December 11, 2023 11:56am Note Date/Time December 11, 2023 11:56am [facility] Medical Records Department [address] [facility] [place] [address] Transfer to [facility] MR#: [id number] Acct: [id number] Name: ELIGIO MCCABE Rep #:[id number] : 1950 73 From: Trinidad Alarcon MD PCP: Dr. Shalini Ferrari DO Status:AD M IN Certification of patient admission REQUIRED AT TIME OF ADMISSION. I CERTIFY THAT POST-HOSPITAL ECF SERVICES ARE REQUIRED TO BE GIVEN ON AN IN-PATIENT BASIS BECAUSE OF THE ABOVE NAMED PATIENT'S NEED FOR LONG TERM CARE ON A CONTINUING BASIS FOR THE CONDITION(S) FOR WHICH HE/SHE WAS RECEIVING IN-PATIENT HOSPITAL SERVICES PRIOR TO HIS/HER TRANSFER TO THE F. 12/11/23 1156<Electronically signed by Trinidad Alarcon MD> Diet Diet Order/Speech Therapy: 12/09/23 15:41 Diet: Regular - General Is pt able to select menu?: Yes Routine Orders/Code Status Enema Type: Fleetz Enema Frequency: Daily PRN Suppository Type: Dulcolax 10mg Suppository Frequency: Daily PRN O2 Frequency: PRN Keep PO Greater than or Equal to (%): 90 Therapies Weight Bearing: Weight bearing as tolerated Physical Therapy: Eval and Treat Occupational Therapy: Eval and Treat Problem/Diagnosis (1) NELSON (acute kidney injury): Status: Acute Code(s): N17.9 - Acute kidney failure, unspecified Plan: #NELSON with hyperkalemia * Resolved. Creatinine down to normal. on flomax. * Will need follow-up with urology on outpatient basis and will need to be discharged with Rocha catheter in situ. NELSON was likely due to urine outlet obstruction. * Nephrology on board. * #COPD in the setting of chronic respiratory failure * On 2 L of oxygen. * Breathing treatments bronchodilators. Titrate oxygen to maintain saturation above 90%. Not in exacerbation. #Left lower lobe consolidation due to presumptive pneumonia * Chest x-ray showed left lower lobe and lingula consolidations. Patient denies any cough and is on his baseline 2 L of oxygen. Started on IV ceftriaxone and azithromycin empirically. * Urine for strep and Legionella negative. * Sputum cultures growing Staph aureus E. coli * on bactrim. * * #Anemia * Hb today is 9. Was transfused with drains of packed red blood cells yesterday. * Had EGD yesterday which showed bleeding peptic ulcer. Currently on IV pantoprazole 40 mg twice daily. * GI on board. For gastric nuclear emptying study today. * * #Hyperkalemia: Likely due to NELSON. Resolved. #Hypokalemia:resolved. #Hypertension: Lisinopril held due to NELSON and hyperkalemia. On atenolol. IV hydralazine as needed. BP has remained fairly stable. #Hyperlipidemia: On statin #GERD: stool for occult blood positive. IV PPI DVT prophylaxis: SCDs. DC heparin due to anemia and positive occult blood. Disposition: Awaiting placement. Case management on board. Allergies/Procedures Done in Hospital Allergies aspirin Allergy (Severe, Verified 11/20/23 11:17) bleeding Type of Care/Length of Stay Estimated LOS: Convalescent Care Less Than 30 days Type of Care Needed: Skilled Rehab Potential: Fair Prognosis: Fair Additional Orders/Day of Discharge Day of Discharge: 12/11/23 Dietary and Speech Recommendations Dietitian Recommendations/Changes: Continue regular diet as tolerated Discharge Plan Admission Admit Date/Time: 12/03/23 19:30 Primary Reason for Your Visit: NELSON, hyperkalemia,anemia Attending Provider: Trinidad Alarcon Primary Care Provider: Shalini Ferrari Consulting Providers: Mariann Clancy; Suzanne Ferrer Discharge Orders/Prescriptions Prescriptions: New tamsulosin 0.4 mg Capsule 0.4 mg PO DAILY@1730 Qty: 30 2RF pantoprazole 40 mg tablet,delayed release (DR/EC) 40 mg PO BID Qty: 60 2RF Continued docusate sodium [Colace] 100 mg capsule 100 mg PO DAILY glucosamine-chondroitin [Osteo Bi-Flex] 250-200 mg tablet 2 tab PO DAILY Rx Instructions: as directed orally; atenolol 50 mg tablet 50 mg PO DAILY Qty: 90 3RF fluticasone propionate 50 mcg/actuation spray,suspension 2 spray intranasal DAILY Qty: 16 3RF carboxymethylcellulose sodium [Refresh Tears] 0.5 % drops 1 drp ophthalmic (eye) 4-6XD PRN (Reason: dry eye(s)) ipratropium-albuterol 0.5 mg-3 mg(2.5 mg base)/3 mL solution for nebulization 3 ml inhalation BID Qty: 180 11RF hydrocodone-acetaminophen 10-325 mg tablet 1 tab PO TID 30 Days Qty: 90 0RF multivitamin Tablet 1 tab PO DAILY Hold Instructions: Home Medication placed on hold at Doctor's office pravastatin 40 mg tablet 40 mg PO QHS Qty: 90 3RF albuterol sulfate 90 mcg/actuation HFA aerosol inhaler See Rx Instructions .ROUTE .COMPLEX Qty: 8.5 2RF Dose Instruction: INHALE TWO PUFFS BY MOUTH EVERY 6 HOURS NEEDED Rx Instructions: INHALE TWO PUFFS BY MOUTH EVERY 6 HOURS NEEDED (DME) rollator walker with seat See Rx Instructions .Route .MEDSUPPLY Qty: 1 0RF Rx Instructions: Patient needs walking assistance due to debilitation. Foot drop, COPD, and syncopal episodes. trazodone 100 mg tablet 100 mg PO QHS Qty: 90 0RF Discontinued lisinopril 10 mg tablet 10 mg PO 1600 Qty: 90 3RF pantoprazole 40 mg tablet,delayed release (DR/EC) 40 mg PO QAM Qty: 90 3RF Referrals / Follow Up: Shalini Ferrari DO [Primary Care Provider] - Within 2 Weeks Disposition Disposition (needs filled in before D/C Order can be placed): Longterm Facility 12/11/23 1156 <Electronically signed by Trinidad Alarcon MD> Cosigner Signature (if applicable): CC: Dr. Mariann Clancy MD; Dr. Shalini Ferrari DO; Dr. Suzanne Ferrer MD ~ [facility] Work Phone: [phone]) [phone] Discharge summary Author Trinidad Alarcon [facility] December 11, 2023 11:55am Note Date/Time December 11, 2023 11:48am [facility] Medical Records Department [address] [place] [address] Instructions for Home/Discharge Instructions 12/11/23 1146 MR#: [id number] Acct: [id number] Name: ELIGIO MCCABE Rep #:[id number] : 1950 73 From: Trinidad Alarcon MD PCP: Dr. Shalini Ferrari, DO Status:AD M IN Discharge Instructions Diet Discharge Diet: Low fat / Low cholesterol Activity Discharge Activity: Return to Normal Activity Weight Bearing Status: Weight bearing as tolerated Dressing / Incision Call your doctor if you observe: Fever of 101 or Higher, Shortness of breath, Swelling in the ankles, Chest pain and Increased palpitations (irregular heartbeat) Follow Up Care Test Results: Test results from this visit will be discussed in further detail at your follow- up appointment, if applicable. Discharge Plan Admission Admit Date/Time: 12/03/23 19:30 Primary Reason for Your Visit: NELSON, hyperkalemia,anemia Attending Provider: Trinidad Alarcon Primary Care Provider: Shalini Ferrari Consulting Providers: Mariann Clancy; Suzanne Ferrer Discharge Orders/Prescriptions Prescriptions: New tamsulosin 0.4 mg Capsule 0.4 mg PO DAILY@1730 Qty: 30 2RF pantoprazole 40 mg tablet,delayed release (DR/EC) 40 mg PO BID Qty: 60 2RF Continued docusate sodium [Colace] 100 mg capsule 100 mg PO DAILY glucosamine-chondroitin [Osteo Bi-Flex] 250-200 mg tablet 2 tab PO DAILY Rx Instructions: as directed orally; atenolol 50 mg tablet 50 mg PO DAILY Qty: 90 3RF fluticasone propionate 50 mcg/actuation spray,suspension 2 spray intranasal DAILY Qty: 16 3RF carboxymethylcellulose sodium [Refresh Tears] 0.5 % drops 1 drp ophthalmic (eye) 4-6XD PRN (Reason: dry eye(s)) ipratropium-albuterol 0.5 mg-3 mg(2.5 mg base)/3 mL solution for nebulization 3 ml inhalation BID Qty: 180 11RF hydrocodone-acetaminophen 10-325 mg tablet 1 tab PO TID 30 Days Qty: 90 0RF multivitamin Tablet 1 tab PO DAILY Hold Instructions: Home Medication placed on hold at Doctor's office pravastatin 40 mg tablet 40 mg PO QHS Qty: 90 3RF albuterol sulfate 90 mcg/actuation HFA aerosol inhaler See Rx Instructions .ROUTE .COMPLEX Qty: 8.5 2RF Dose Instruction: INHALE TWO PUFFS BY MOUTH EVERY 6 HOURS NEEDED Rx Instructions: INHALE TWO PUFFS BY MOUTH EVERY 6 HOURS NEEDED (DME) rollator walker with seat See Rx Instructions .Route .MEDSUPPLY Qty: 1 0RF Rx Instructions: Patient needs walking assistance due to debilitation. Foot drop, COPD, and syncopal episodes. trazodone 100 mg tablet 100 mg PO QHS Qty: 90 0RF Discontinued lisinopril 10 mg tablet 10 mg PO 1600 Qty: 90 3RF pantoprazole 40 mg tablet,delayed release (DR/EC) 40 mg PO QAM Qty: 90 3RF Referrals / Follow Up: Shalini Ferrari DO [Primary Care Provider] - Within 2 Weeks Disposition Disposition (needs filled in before D/C Order can be placed): Longterm Facility 12/11/23 1155<Electronically signed by Trinidad Alarcon MD>Trinidad Alarcon MD CC: Dr. Mariann Clancy MD; Dr. Shalini Ferrari DO; Dr. Suzanne Ferrer MD ~ Signed [facility] Work Phone: 1(299) 707-124202-28-2024 Progress note Author Perry Friend [facility] December 11, 2023 3:17pm Note Date/Time December 11, 2023 3:17pm [facility] Medical Records Department [address] [place] [address] Progress Note - GI 12/11/23 0715 MR#: [id number] Acct: [id number] Name: ELIGIO MCCABE Rep #:[id number] : 1950 73 From: Perry Hays DO PCP: Dr. Shalini Ferrari DO Status:AD M IN Location: [facility] [place] Subjective Subjective Patient feels a lot better. He has been eating and gaining weight since being in the hospital. He is not having any abdominal pain at this time. Objective Data Objective Data Vital Signs: Vital Signs Temp Pulse Resp BP Pulse Ox O2 Del Method O2 Flow Rate 98.1 F 68 18 102/64 99 Room Air 2 12/11/23 14:15 12/11/23 14:15 12/11/23 14:15 12/11/23 14:15 12/11/23 14:15 12/11/23 14:15 12/11/23 07:35 Oxygen Flow Rate (L/min) 2 Oxygen Delivery Method Room Air Weight: 139 lb 1.787 oz Body Mass Index (BMI) 18.8 Intake & Output: Intake and Output for Last 24 Hours 12/09/23 12/10/23 12/11/23 23:59 23:59 23:59 Intake Total 1268.75 / 1628.75 1280 / 1280 1250 / 1250 Output Total 1600 / 1900 1250 / 1250 1350 / 1350 Balance -331.25 / -271.25 30 / 30 -100 / -100 Lab / Micro Data 12/11/23 06:10 12/09/23 04:40 Labs: Laboratory Results - last 24 hr 12/10/23 06:15: PARMJIT-1 Antibody <0.2, SS-A/Ro IgG Antibody < 0.2, SS-B/La IgG Antibody < 0.2, Sm (Daugherty) Antibody <0.2, PERSONNEL PSYCHOLOGIST Antibody 0.4, Scl-70 Scleroderma Ab <0.2, Double Strand DNA Ab 1, Centromere B Antibody <0.2 12/11/23 06:10: WBC 9.1, RBC 2.72 L, Hgb 9.0 L, Hct 27.1 L, MCV 99.6 H, MCH 33.1H, MCHC 33.2, RDW Std Deviation 62.9 H, RDW Coeff of Issa 17.2 H, Plt Count 264, MPV 9.0, Immature Gran % (Auto) 1.300 H, Neut % (Auto) 65.8, Lymph % (Auto) 11.6L, Faulkner % (Auto) 9.7, Eos % (Auto) 10.7 H, Baso % (Auto) 0.9, Absolute Neuts (auto) 6.0, Absolute Lymphs (auto) 1.05, Nucleated RBC % 0 Micro: Microbiology 12/07/23 13:40 Sputum, Expectorated/Coughed Gram Stain - Final 12/07/23 13:40 Sputum, Expectorated/Coughed Respiratory Culture - Final Presumptive C albicans 12/07/23 16:15 Stool Stool Occult Blood (SINDY) - Final Occult Blood Positive 12/04/23 07:00 Sputum, Expectorated/Coughed Gram Stain - Final 12/04/23 07:00 Sputum, Expectorated/Coughed Respiratory Culture - Final Escherichia coli Staphylococcus aureus 12/03/23 17:06 Urine Catheter - Catheter Urine Culture - Final Culture exhibits no growth. 12/03/23 22:30 Mucosa - Nasopharyngeal Respiratory Panel (PCR) - Final 12/03/23 17:05 Urine Catheter - Catheter Legionella Antigen - Final 12/03/23 17:05 Urine Catheter - Catheter Streptococcus pneumoniae Antigen (M- Final Radiography Diagnostic Testing: Radiology Impression Gastric Emptying Nuclear Medicine 12/10/23 09:00 IMPRESSION: 1. NORMAL 99m Tc sulfur colloid semi-solid phase (oatmeal) gastric emptying imaging examination. A. There is normal and preserved semi-solid phase gastric emptying compared to normal controls. (Elham et al, J Nucl Med Tech 38: 186, 2010). Electronically Signed: Severino Gordon, at 15:45 EST , Physical Exam Const alert, oriented x3 and no apparent distress Constitutional Narrative: frail, elderly General Appearance: cooperative and comfortable HEENT normocephalic, head/scalp atraumatic, hearing grossly normal bilaterally and moist oral mucous membranes Mouth: oral and palatal mucosa normal Eyes PERRL and EOMs intact bilaterally Neck no lymphadenopathy, supple and no JVD Lymph Lymphatic: no lymphadenopathy noted and no lymphedema noted Resp Resp Narrative: mildly diminished breath sounds bibasally, no wheezes or crackles.On room air. Cardio regular rate, regular rhythm, S1 normal heart sound, S2 normal heart sound and no murmurs GI normal to inspection, nondistended, normoactive bowel sounds, soft to palpation,non-tender and non-distended Extremity normal to inspection, full ROM, normal capillary refill, no clubbing, cyanosis or edema and no calf tenderness General Extremity: no tenderness to palpation of joints or extremities Skin no rashes or lesions noted General Skin Exam: no breakdown Neuro oriented x3, CN's II-XII intact bilaterally, moves all extremities, no focal motor deficits and no sensory deficits noted Sensorium / Orientation: awake and alert Motor Exam: strength 5/5 throughout and general weakness Psych thought process normal and cooperative Appearance: appropriate Assessment & Plan Assessment/Plan (1) NELSON (acute kidney injury): PLAN: Plan The patient is a 73 y/o M w/ PMHx: Chronic cognitive impairment of unclear etiology, COPD w/ Chronic Hypoxic Respiratory Failure, Chronic neuropathy, Former tobacco use, GERD w/ Hx GI bleed, HTN, HLD, Chronic anemia who presents to the [facility] ED on 12/03/23 with history of inability to urinate for the last 48 hours although from report possibly dribbling over himself with significant suprapubic discomfort with no recent fever, chills, nausea or emesis but reported confusion and agitation potentially related to urinary retention prompting family to bring him in for evaluation. Acute kidney injury with acute urinary retention with bilateral nonobstructingnephroliths and a possible mild left hydronephrosis causing postobstructive uropathy status post catheter placement. Chronic macrocytic and normocytic anemia: Admission hemoglobin 9.5, MCV 102.7, baseline previous hemoglobin noted 9.9 11/20/2023 however previous to this in 2022hemoglobin ranged 9-12, his hemoglobin drifted down to 6.4 and after 1 unit is only at 7. He should undergo repeat upper endoscopy and possible capsule endoscopy to look for signs of atrophic gastritis which can cause iron deficiency, B12 deficiency and contribute to anemia chronic disease, celiac disease which can cause iron deficiency, autoimmune gastritis which can cause iron deficiency. He was explained alternatives, risk, benefits including not withstanding bleeding, infection,'s, perforation, need for emergent urgent . He will have an ASA of 3. Recommend to check antiparietal cell antibody, antiintrinsic factor antibody, HOMAR, celiac profile. Patient underwent a subtotal gastrectomy in the past. Gastric resection is reserved for patients with peptic ulcer disease that has failed to respond to medical therapy or those with malignant disease. I do not have access to his opreport. I am just going by what I see endoscopically and what his tells me. 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 I am awaiting a gastric emptying study to see if he is dumping which would be consistent with a postgastrectomy syndrome. He had a lot of inflammation along with ulcerations in the stomach and bile induced injury to the proximal duodenum. Charges/Coding Visit Charges Inpatient E&M: 18210 Subs Hosp L3 12/11/23 1517 <Electronically signed by Perry Hays DO> Cosigner Signature (if applicable): CC: ~ Signed [facility] Work Phone: [phone]) 526-419902-27-2024 Progress note Author Perry Hays [facility] December 10, 2023 3:34pm Note Date/Time December 10, 2023 3:30pm [facility] Medical Records Department [address] [place] [address] Progress Note - GI 12/10/23 1529 MR#: [id number] Acct: [id number] Name: ELIGIO MCCABE Rep #:[id number] : 1950 73 From: Perry Hays DO PCP: Dr. Shalini Ferrari, DO Status:AD M IN Location: [place] [address]-1 Subjective Subjective Patient is feeling a little bit better today. He denies any chest pain or shortness of breath. He underwent endoscopy yesterday. He underwent a gastric emptying study but the results are pending. Objective Data Objective Data Vital Signs: Vital Signs Temp Pulse Resp BP Pulse Ox O2 Del Method O2 Flow Rate 99.0 F 73 16 139/85 H 98 Room Air 2 12/10/23 14:47 12/10/23 14:47 12/10/23 14:47 12/10/23 14:47 12/10/23 14:47 12/10/23 14:47 12/09/23 19:30 Oxygen Flow Rate (L/min) 2 Oxygen Delivery Method Room Air Weight: 139 lb 5.314 oz Body Mass Index (BMI) 18.8 Intake & Output: Intake and Output for Last 24 Hours 12/08/23 12/09/23 12/10/23 23:59 23:59 23:59 Intake Total 1969 / 1969 1268.75 / 1628.75 1060 / 1060 Output Total 1750 / 1750 1600 / 1900 1100 / 1100 Balance 220 / 220 -331.25 / -271.25 -40 / -40 Lab / Micro Data 12/10/23 06:15 12/09/23 04:40 Labs: Laboratory Results - last 24 hr 12/09/23 10:35: Blood Type B POSITIVE, Antibody Screen POSITIVE, Antibody Identification ANTI-K, Antigen Identification K ANTIGEN - NEGATIVE, Crossmatch See Detail 12/10/23 06:15: WBC 10.7, RBC 2.85 L, Hgb 9.0 L, Hct 28.2 L, MCV 98.9 H D, MCH 31.6, MCHC 31.9 L, RDW Std Deviation 65.2 H, RDW Coeff of Issa 17.8 H, Plt Count 313, MPV 9.3, Immature Gran % (Auto) 1.200 H, Neut % (Auto) 68.6, Lymph % (Auto)11.0 L, Faulkner % (Auto) 8.9, Eos % (Auto) 9.3 H, Baso % (Auto) 1.0, Absolute Neuts(auto) 7.3, Absolute Lymphs (auto) 1.17, Nucleated RBC % 0, Differential CommentSCANNED, Anisocytosis 2+, Microcytosis 1+, Macrocytosis 1+ Micro: Microbiology 12/07/23 13:40 Sputum, Expectorated/Coughed Gram Stain - Final 12/07/23 13:40 Sputum, Expectorated/Coughed Respiratory Culture - Final Presumptive C albicans 12/07/23 16:15 Stool Stool Occult Blood (SINDY) - Final Occult Blood Positive 12/04/23 07:00 Sputum, Expectorated/Coughed Gram Stain - Final 12/04/23 07:00 Sputum, Expectorated/Coughed Respiratory Culture - Final Escherichia coli Staphylococcus aureus 12/03/23 17:06 Urine Catheter - Catheter Urine Culture - Final Culture exhibits no growth. 12/03/23 22:30 Mucosa - Nasopharyngeal Respiratory Panel (PCR) - Final 12/03/23 17:05 Urine Catheter - Catheter Legionella Antigen - Final 12/03/23 17:05 Urine Catheter - Catheter Streptococcus pneumoniae Antigen (M- Final Assessment & Plan Assessment/Plan (1) NELSON (acute kidney injury): PLAN: Plan The patient is a 73 y/o M w/ PMHx: Chronic cognitive impairment of unclear etiology, COPD w/ Chronic Hypoxic Respiratory Failure, Chronic neuropathy, Formertobacco use, GERD w/ Hx GI bleed, HTN, HLD, Chronic anemia who presents to the [facility] ED on 12/03/23 with history of inability to urinate for the last 48 hours although from report possibly dribbling over himself with significant suprapubicdiscomfort with no recent fever, chills, nausea or emesis but reported confusionand agitation potentially related to urinary retention prompting family to bringhim in for evaluation. Acute kidney injury with acute urinary retention with bilateral nonobstructingnephroliths and a possible mild left hydronephrosis causing postobstructive uropathy status post catheter placement. Chronic macrocytic and normocytic anemia: Admission hemoglobin 9.5, MCV 102.7, baseline previous hemoglobin noted 9.9 11/20/2023 however previous to this in 2022hemoglobin ranged 9-12, his hemoglobin drifted down to 6.4 and after 1 unit is only at 7. He should undergo repeat upper endoscopy and possible capsule endoscopy to look for signs of atrophic gastritis which can cause iron deficiency, B12 deficiency and contribute to anemia chronic disease, celiac disease whichcan cause iron deficiency, autoimmune gastritis which can cause iron deficiency. He was explained alternatives, risk, benefits including not withstanding bleeding, infection,'s, perforation, need for emergent urgent . He will have an ASA of 3. Recommend to check antiparietal cell antibody, antiintrinsic factor antibody, HOMAR, celiac profile. Patient underwent a subtotal gastrectomy in the past. Gastric resection is reserved for patients with peptic ulcer disease that has failed to respond to medical therapy or those with malignant disease. I do not have access to his opreport. I am just going by what I see endoscopically and what his tells me. 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 I am awaiting a gastric emptying study to see if he is dumping which would be consistent with a postgastrectomy syndrome. He had a lot of inflammation along with ulcerations in the stomach and bile induced injury to the proximal duodenum. Charges/Coding Visit Charges Inpatient E&M: 00449 Subs Hosp L3 12/10/23 1534 <Electronically signed by Perry Friend DO> Cosigner Signature (if applicable): CC: ~ Signed [facility] Work Phone: [phone]) 858-770402-27-2024 Progress note Author Trinidad Alarcon [facility] December 10, 2023 3:14pm Note Date/Time December 10, 2023 3:14pm [facility] Medical Records Department [address] [place] [address] Progress Note 12/10/23 1511 MR#: [id number] Acct: [id number] Name: ELIGIO MCCABE Rep #:[id number] : 1950 73 From: Trinidad Alarcon MD PCP: Dr. Shalini Ferrari, DO Status:AD IN Location: [place] [id number] Subjective Subjective Patient seen and examined. He had no complaints. Review of systems otherwise negative. He had EGD yesterday which showed a bleeding peptic ulcer which was treated with a heater probe. He is for gastric emptying study today. Objective Data Objective Data Vital Signs: Vital Signs Temp Pulse Resp BP Pulse Ox O2 Del Method O2 Flow Rate 99.0 F 73 16 139/85 H 98 Room Air 2 12/10/23 14:47 12/10/23 14:47 12/10/23 14:47 12/10/23 14:47 12/10/23 14:47 12/10/23 14:47 12/09/23 19:30 Oxygen Flow Rate (L/min) 2 Oxygen Delivery Method Room Air Weight: 139 lb 5.314 oz Body Mass Index (BMI) 18.8 Intake & Output: Intake and Output for Last 24 Hours 12/08/23 12/09/23 12/10/23 23:59 23:59 23:59 Intake Total 1969 / 1969 1268.75 / 1628.75 1060 / 1060 Output Total 1750 / 1750 1600 / 1900 1100 / 1100 Balance 220 / 220 -331.25 / -271.25 -40 / -40 Lab / Micro Data 12/10/23 06:15 02/26/24 04:40 Labs: Laboratory Results - last 24 hr 12/09/23 10:35: Blood Type B POSITIVE, Antibody Screen POSITIVE, Antibody Identification ANTI-K, Antigen Identification K ANTIGEN - NEGATIVE, Crossmatch See Detail 12/10/23 06:15: WBC 10.7, RBC 2.85 L, Hgb 9.0 L, Hct 28.2 L, MCV 98.9 H D, MCH 31.6, MCHC 31.9 L, RDW Std Deviation 65.2 H, RDW Coeff of Issa 17.8 H, Plt Count 313, MPV 9.3, Immature Gran % (Auto) 1.200 H, Neut % (Auto) 68.6, Lymph % (Auto)11.0 L, Faulkner % (Auto) 8.9, Eos % (Auto) 9.3 H, Baso % (Auto) 1.0, Absolute Neuts(auto) 7.3, Absolute Lymphs (auto) 1.17, Nucleated RBC % 0, Differential CommentSCANNED, Anisocytosis 2+, Microcytosis 1+, Macrocytosis 1+ Micro: Microbiology 12/07/23 13:40 Sputum, Expectorated/Coughed Gram Stain - Final 12/07/23 13:40 Sputum, Expectorated/Coughed Respiratory Culture - Final Presumptive C albicans 12/07/23 16:15 Stool Stool Occult Blood (SINDY) - Final Occult Blood Positive 12/04/23 07:00 Sputum, Expectorated/Coughed Gram Stain - Final 12/04/23 07:00 Sputum, Expectorated/Coughed Respiratory Culture - Final Escherichia coli Staphylococcus aureus 12/03/23 17:06 Urine Catheter - Catheter Urine Culture - Final Culture exhibits no growth. 12/03/23 22:30 Mucosa - Nasopharyngeal Respiratory Panel (PCR) - Final 12/03/23 17:05 Urine Catheter - Catheter Legionella Antigen - Final 12/03/23 17:05 Urine Catheter - Catheter Streptococcus pneumoniae Antigen (M- Final Physical Exam Const alert, oriented x3 and no apparent distress Constitutional Narrative: frail, elderly General Appearance: cooperative HEENT normocephalic, head/scalp atraumatic and moist oral mucous membranes Eyes PERRL and EOMs intact bilaterally Neck no lymphadenopathy, supple and no JVD Lymph Lymphatic: no lymphadenopathy noted and no lymphedema noted Resp Resp Narrative: mildly diminished breath sounds bibasally, no wheezes or crackles.On room air. Cardio regular rate, regular rhythm, S1 normal heart sound, S2 normal heart sound and no murmurs GI normal to inspection, nondistended, normoactive bowel sounds, soft to palpation,non-tender and non-distended Extremity normal capillary refill, no clubbing, cyanosis or edema and no calf tenderness General Extremity: no tenderness to palpation of joints or extremities Skin General Skin Exam: no breakdown Neuro CN's II-XII intact bilaterally, no focal motor deficits and no sensory deficits noted Motor Exam: strength 5/5 throughout and general weakness Psych thought process normal and cooperative Appearance: appropriate Assessment & Plan Assessment/Plan (1) NELSON (acute kidney injury): PLAN: #NELSON with hyperkalemia * Resolved. Creatinine down to normal. on flomax. * Will need follow-up with urology on outpatient basis and will need to be discharged with Rocha catheter in situ. NELSON was likely due to urine outlet obstruction. * Nephrology on board. * #COPD in the setting of chronic respiratory failure * On 2 L of oxygen. * Breathing treatments bronchodilators. Titrate oxygen to maintain saturation above 90%. Not in exacerbation. #Left lower lobe consolidation due to presumptive pneumonia * Chest x-ray showed left lower lobe and lingula consolidations. Patient denies any cough and is on his baseline 2 L of oxygen. Started on IV ceftriaxone and azithromycin empirically. * Urine for strep and Legionella negative. * Sputum cultures growing Staph aureus E. coli * on bactrim. * * #Anemia * Hb today is 9. Was transfused with drains of packed red blood cells yesterday. * Had EGD yesterday which showed bleeding peptic ulcer. Currently on IV pantoprazole 40 mg twice daily. * GI on board. For gastric nuclear emptying study today. * * #Hyperkalemia: Likely due to NELSON. Resolved. #Hypokalemia:resolved. #Hypertension: Lisinopril held due to NELSON and hyperkalemia. On atenolol. IV hydralazine as needed. BP has remained fairly stable. #Hyperlipidemia: On statin #GERD: stool for occult blood positive. IV PPI DVT prophylaxis: SCDs. DC heparin due to anemia and positive occult blood. Disposition: Awaiting placement. Case management on board. Charges/Coding Visit Charges Inpatient E&M: 50350 Subs Hosp L2 12/10/23 1514 <Electronically signed by Trinidad Alarcon MD> Trinidad Alarcon MD Cosigner Signature (if applicable): CC: ~ Signed [facility] Work Phone: 1(126) 315-854502-26-2024 Progress note Author Trinidad [facility] December 09, 2023 4:00pm Note Date/Time December 09, 2023 10:07am [facility] Medical Records Department [address] [place] [address] Progress Note 12/09/23 1003 MR#: [id number] Acct: [id number] Name: ELIGIO MCCABE Rep #:[id number] : 1950 73 From: Trinidad Alarcon MD PCP: Dr. Shalini Ferrari, DO Status:AD M IN Location: [place] [address] Subjective Subjective Patient seen and examined. He had no active complaints. He denies any abdominal pain or dark stools. Review of systems is otherwise negative. Objective Data Objective Data Vital Signs: Vital Signs Temp Pulse Resp BP Pulse Ox O2 Del Method O2 Flow Rate 100.0 F H 76 16 116/67 97 Room Air 2 12/09/23 09:33 12/09/23 09:33 12/09/23 09:33 12/09/23 09:33 12/09/23 09:33 12/09/23 09:33 12/09/23 06:54 Oxygen Flow Rate (L/min) 2 Oxygen Delivery Method Room Air Weight: 139 lb 5.314 oz Body Mass Index (BMI) 18.8 Intake & Output: Intake and Output for Last 24 Hours 12/07/23 12/08/23 12/09/23 23:59 23:59 23:59 Intake Total 2031 / 2431 1970 / 1970 900 / 900 Output Total 2600 / 3200 1750 / 1750 1600 / 1600 Balance -569 / -769 220 / 220 -700 / -700 Lab / Micro Data 12/09/23 09:00 12/09/23 04:40 Labs: Laboratory Results - last 24 hr 12/09/23 04:40: WBC 9.1, RBC 2.13 L, Hgb 7.0 L, Hct 22.3 L, MCV 104.7 H, MCH 32.9 H, MCHC 31.4 L, RDW Std Deviation 54.7 H, RDW Coeff of Issa 14.3, Plt Count 288, MPV 9.4, Immature Gran % (Auto) 1.500 H, Neut % (Auto) 68.4, Lymph % (Auto)12.4 L, Faulkner % (Auto) 9.3, Eos % (Auto) 7.5 H, Baso % (Auto) 0.9, Absolute Neuts(auto) 6.2, Absolute Lymphs (auto) 1.12, Nucleated RBC % 0, Sodium 140, Potassium 3.9, Chloride 111 H, Carbon Dioxide 27.0, Anion Gap 2 L, BUN 18, Creatinine 1.17, Estim Creat Clear Calc 50.27, Est GFR (MDRD) Af Amer 79, Est GFR (MDRD) Non-Af 65, BUN/Creatinine Ratio 15.4, Glucose 102, Calcium 8.2 L 12/09/23 09:00: Hgb 7.0 L, Hct 22.1 L Micro: Microbiology 12/07/23 13:40 Sputum, Expectorated/Coughed Gram Stain - Final 12/07/23 16:15 Stool Stool Occult Blood (SINDY) - Final Occult Blood Positive 12/04/23 07:00 Sputum, Expectorated/Coughed Gram Stain - Final 12/04/23 07:00 Sputum, Expectorated/Coughed Respiratory Culture - Final Escherichia coli Staphylococcus aureus 12/03/23 17:06 Urine Catheter - Catheter Urine Culture - Final Culture exhibits no growth. 12/03/23 22:30 Mucosa - Nasopharyngeal Respiratory Panel (PCR) - Final 12/03/23 17:05 Urine Catheter - Catheter Legionella Antigen - Final 12/03/23 17:05 Urine Catheter - Catheter Streptococcus pneumoniae Antigen (M- Final Physical Exam Const alert, oriented x3 and no apparent distress Constitutional Narrative: frail, elderly General Appearance: cooperative HEENT normocephalic, head/scalp atraumatic and moist oral mucous membranes Eyes PERRL and EOMs intact bilaterally Neck no lymphadenopathy, supple and no JVD Lymph Lymphatic: no lymphadenopathy noted and no lymphedema noted Resp Resp Narrative: mildly diminished breath sounds bibasally, no wheezes or crackles.On room air. Cardio regular rate, regular rhythm, S1 normal heart sound, S2 normal heart sound and no murmurs GI normal to inspection, nondistended, normoactive bowel sounds, soft to palpation,non-tender and non-distended Extremity normal capillary refill, no clubbing, cyanosis or edema and no calf tenderness General Extremity: no tenderness to palpation of joints or extremities Skin General Skin Exam: no breakdown Neuro CN's II-XII intact bilaterally, no focal motor deficits and no sensory deficits noted Motor Exam: general weakness Psych thought process normal and cooperative Appearance: appropriate Assessment & Plan Assessment/Plan (1) NELSON (acute kidney injury): PLAN: #NELSON with hyperkalemia * Resolved. Creatinine down to normal. on flomax. * Will need follow-up with urology on outpatient basis and will need to be discharged with Rocha catheter in situ. NELSON was likely due to urine outlet obstruction. * Nephrology on board. * #COPD in the setting of chronic respiratory failure * On 2 L of oxygen. * Breathing treatments bronchodilators. Titrate oxygen to maintain saturation above 90%. Not in exacerbation. #Left lower lobe consolidation due to presumptive pneumonia * Chest x-ray showed left lower lobe and lingula consolidations. Patient denies any cough and is on his baseline 2 L of oxygen. Started on IV ceftriaxone and azithromycin empirically. * Urine for strep and Legionella negative. * Sputum cultures growing Staph aureus E. coli * on bactrim. * * #Anemia * hb today is down to 7. * Hb was as low as 6.4 during this admission though on repeat it was 7.7. * stool for occult blood is positive * on IV pantoprazole 40mg bid * GI consulted. Keep NPO for now * repeat H&H shows Hb is still 7. * will therefore transfuse with 2 units of PRBCs. * #Hyperkalemia: Likely due to NELSON. Resolved. #Hypokalemia:resolved. #Hypertension: Lisinopril held due to NELSON and hyperkalemia. On atenolol. IV hydralazine as needed. #Hyperlipidemia: On statin #GERD: stool for occult blood positive. IV PPI DVT prophylaxis: SCDs. DC heparin due to anemia and positive occult blood. Disposition: Awaiting placement. Case management on board. Charges/Coding Visit Charges Inpatient E&M: 21391 Subs Hosp L3 12/09/23 1600 <Electronically signed by Trinidad Alarcon MD> Trinidad Alarcon MD Cosigner Signature (if applicable): CC: ~ Signed [facility] Work Phone: 1(495) 776-859002-26-2024 Consult note Author Perry Hays [facility] December 09, 2023 1:25pm Note Date/Time December 09, 2023 1:18pm [facility] Medical Records Department [address] [place] [address] Consultation - GI 12/08/23 1315 MR#: [id number] Acct: [id number] Name: ELIGIO MCCABE Rep #:[id number] : 1950 73 From: Perry Hays DO PCP: Dr. Shalini Ferrari, DO Status:AD M IN Location: [facility] [id number] HPI Consult Data Date of Consult: 12/08/23 HPI Narrative Reason for Consultation: Anemia HPI Narrative: ELIGIO MCCABE, is a 73 y/o M with past medical history of chronic anemia and weight loss who presents to the [facility] ED on 12/03/23 with history of inability to urinate for the last 48 hours. He has a past medical history significant for COPD with chronic hypoxic respiratory failure, former tobacco use, hypertension, hyperlipidemia, GERD withhistory of GI bleed, history of kidney stones. In the ED patient with significant urinary retention with Rocha catheter placedwith 2 L urine output immediately noted. Patient in the emergency room cannot give any appropriate information about his recent status and is extremely confused although he is able to carry a conversation and is extremely irritable but clearly cannot give exact data. Workup in the ED included T98.1, heart 60, BP 177/104, respiratory rate 15, 90% on 3 L nasal cannula and for review of most recent records patient previously also been on 2.5 to 3 L nasal cannula CBC with WBC 11.9, hemoglobin 9.5, MCV 102.7, platelet 339 with left shift and lymphopenia, CMP with sodium 134, potassium 8.4 noted to be slightly hemolyzed, carbon oxide 19, anion gap 10, BUN/creatinine 102/8.75, calcium 11.6, hepatic profile not marked appearing, total creatinine kinase 112, urinalysis with specific remedy 1.010, protein 30, ketone negative, occult blood 150, urine nitrite negative, leukocyte esterase 25 with no obvious evidence of UTI, left lower lobe airspace disease, bilateral nonobstructing nephroliths, possible mildleft hydronephrosis with no definite radiodense ureterolith. He was diagnosed with a postobstructive uropathy and had a Rocha catheter placed. Also his blood pressure medicines were held. His creatinine has been improving as well as his mental status. After talking to him he says he is lostover 200 pounds. He had an upper and lower scope back in September [address] Thomas for abdominal pain, weight loss and anemia. His ferritin was 137, iron 40 and TIBC is 14. I was called to see him because his hemoglobin drifted down to 7. [facility] Medical History Arthritis Arthritis Back pain Cardiology follow-up encounter Chronic pain Community acquired pneumonia COPD (chronic obstructive pulmonary disease) Depression Difficulty chewing Drop foot gait Forgetfulness Former smoker GERD (gastroesophageal reflux disease) High cholesterol History of echocardiogram History of GI bleed History of hiatal hernia History of stomach ulcers History of stress test Hyperlipidemia Hypertension IBS (irritable bowel syndrome) Neuropathy On home oxygen therapy Overdose Pneumonia Severe protein-calorie malnutrition Shortness of breath on exertion Syncope Wears dentures Wears glasses Home Medications multivitamin 1 tab PO DAILY supplement 07/01/21 [History Last Taken 10/08/23] pantoprazole 40 mg tablet,delayed release 40 mg PO QAM #90 tabs 10/29/22 [Rx Last Taken 10/09/23] glucosamine-chondroitin 250 mg-200 mg tablet (Osteo Bi-Flex) 2 tab PO DAILY 01/12/23 [History Last Taken 10/08/23] pravastatin 40 mg tablet 40 mg PO QHS #90 tabs 03/13/23 [Rx Last Taken 10/08/23] atenolol 50 mg tablet 50 mg PO DAILY #90 tabs 03/26/23 [Rx Last Taken 10/09/23] docusate sodium 100 mg capsule (Colace) 100 mg PO DAILY Constipation 08/01/23 [History Last Taken 10/08/23] fluticasone propionate 50 mcg/actuation nasal spray,suspension 2 spray intranasal DAILY #16 grams 08/20/23 [Rx Last Taken 10/08/23] albuterol sulfate 90 mcg/actuation aerosol inhaler See Rx Instructions .Route .COMPLEX #8.5 grams 10/22/23 [Rx Last Taken Unknown] carboxymethylcellulose sodium 0.5 % eye drops (Refresh Tears) 1 drp ophthalmic (eye) 4-6XD PRN dry eye(s) 10/22/23 [History Last Taken Unknown] ipratropium 0.5 mg-albuterol 3 mg (2.5 mg base)/3 mL nebulization soln 3 ml inhalation BID shortness of breath or wheezing #180 mL 10/22/23 [Rx Last Taken Unknown] rollator walker with seat #1 ea 11/05/23 [Rx Last Taken Unknown] lisinopril 10 mg tablet 10 mg PO 1600 #90 tabs 11/06/23 [Rx Last Taken Unknown] trazodone 100 mg tablet 100 mg PO QHS #90 tabs 11/06/23 [Rx Last Taken Unknown] hydrocodone 10 mg-acetaminophen 325 mg tablet 1 tab PO TID 1 month #90 tabs 11/20/23 [Rx Last Taken Unknown] Allergy/AdvReac Type Severity Reaction Status Date / Time aspirin Allergy Severe bleeding Verified 11/20/23 11:17 Family History Mother Myocardial infarction, Onset Age: 49 Depression Father Hypertension CVA (cerebral vascular accident), Onset Age: 49 Sister Thyroid disorder Uncle ulcers Surgical History History of bronchoscopy History of esophagogastroduodenoscopy (EGD) History of thoracic surgery Hx of colonoscopy Social History household members: spouse and significant other Smoking Status: Former smoker quit date: 07/14/21 alcohol intake: never substance use type: does not use what type of physical activity do you participate in: other details: yard work,house work ROS ROS Narrative 10 systems were reviewed with pertinent positives as noted in the HPI above. Physical Exam Const alert, oriented x3 and no apparent distress Constitutional Narrative: frail, elderly General Appearance: cooperative HEENT normocephalic, head/scalp atraumatic and moist oral mucous membranes Eyes PERRL and EOMs intact bilaterally Neck no lymphadenopathy, supple and no JVD Lymph Lymphatic: no lymphadenopathy noted and no lymphedema noted Resp Resp Narrative: mildly diminished breath sounds bibasally, no wheezes or crackles.On room air. Cardio regular rate, regular rhythm, S1 normal heart sound, S2 normal heart sound and no murmurs GI normal to inspection, nondistended, normoactive bowel sounds, soft to palpation,non-tender and non-distended Extremity normal capillary refill, no clubbing, cyanosis or edema and no calf tenderness General Extremity: no tenderness to palpation of joints or extremities Skin General Skin Exam: no breakdown Neuro CN's II-XII intact bilaterally, no focal motor deficits and no sensory deficits noted Motor Exam: general weakness Psych thought process normal and cooperative Appearance: appropriate Lab / Micro Data 12/09/23 09:00 12/09/23 04:40 Labs: Laboratory Results - last 24 hr 12/09/23 04:40: WBC 9.1, RBC 2.13 L, Hgb 7.0 L, Hct 22.3 L, MCV 104.7 H, MCH 32.9 H, MCHC 31.4 L, RDW Std Deviation 54.7 H, RDW Coeff of Issa 14.3, Plt Count 288, MPV 9.4, Immature Gran % (Auto) 1.500 H, Neut % (Auto) 68.4, Lymph % (Auto)12.4 L, Faulkner % (Auto) 9.3, Eos % (Auto) 7.5 H, Baso % (Auto) 0.9, Absolute Neuts(auto) 6.2, Absolute Lymphs (auto) 1.12, Nucleated RBC % 0, Sodium 140, Potassium 3.9, Chloride 111 H, Carbon Dioxide 27.0, Anion Gap 2 L, BUN 18, Creatinine 1.17, Estim Creat Clear Calc 50.27, Est GFR (MDRD) Af Amer 79, Est GFR (MDRD) Non-Af 65, BUN/Creatinine Ratio 15.4, Glucose 102, Calcium 8.2 L 12/09/23 09:00: Hgb 7.0 L, Hct 22.1 L 12/09/23 10:35: Blood Type B POSITIVE, Antibody Screen POSITIVE, Antibody Identification ANTI-K, Antigen Identification K ANTIGEN - NEGATIVE, Crossmatch See Detail Micro: Microbiology 12/07/23 13:40 Sputum, Expectorated/Coughed Gram Stain - Final 12/07/23 13:40 Sputum, Expectorated/Coughed Respiratory Culture - Final Presumptive C albicans Assessment & Plan Assessment/Plan (1) NELSON (acute kidney injury): PLAN: Plan The patient is a 73 y/o M w/ PMHx: Chronic cognitive impairment of unclear etiology, COPD w/ Chronic Hypoxic Respiratory Failure, Chronic neuropathy, Former tobacco use, GERD w/ Hx GI bleed, HTN, HLD, Chronic anemia who presents to the [facility] ED on 12/03/23 with history of inability to urinate for the last 48 hours although from report possibly dribbling over himself with significant suprapubicdiscomfort with no recent fever, chills, nausea or emesis but reported confusionand agitation potentially related to urinary retention prompting family to bringhim in for evaluation. Acute kidney injury with acute urinary retention with bilateral nonobstructingnephroliths and a possible mild left hydronephrosis causing postobstructive uropathy status post catheter placement. Chronic macrocytic and normocytic anemia: Admission hemoglobin 9.5, MCV 102.7, baseline previous hemoglobin noted 9.9 11/20/2023 however previous to this in 2022hemoglobin ranged 9-12, his hemoglobin drifted down to 6.4 and after 1 unit is only at 7. He should undergo repeat upper endoscopy and possible capsule endoscopy to look for signs of atrophic gastritis which can cause iron deficiency, B12 deficiency and contribute to anemia chronic disease, celiac disease which can cause iron deficiency, autoimmune gastritis which can cause iron deficiency. He was explained alternatives, risk, benefits including not withstanding bleeding, infection,'s, perforation, need for emergent urgent . He will have an ASA of 3. Recommend to check antiparietal cell antibody, antiintrinsic factor antibody, HOMAR, celiac profile. Charges/Coding Visit Charges Inpatient E&M: 62740 Init Hosp L3 12/09/23 1325 <Electronically signed by Perry Hays DO> Cosigner Signature (if applicable): CC: Dr. Mariann Clancy MD; Dr. Shalini Ferrari DO; Dr. Suzanne Ferrer MD~ Signed [facility] Work Phone: 1(586) 629-798802-26-2024 Procedure [facility] 12-09-2023 Procedure [facility]02-25-2024 Progress note Author Lisa Gamez tr [facility] December 08, 2023 6:19pm Note Date/Time December 08, 2023 5:17pm [facility] Medical Records Department [address] [place] [address] Progress Note - Nephrology 12/08/23 1712 MR#: [id number] Acct: [id number] Name: ELIGIO MCCABE Rep #:[id number] : 1950 73 From: Lisa herring MD PCP: Dr. Shalini Ferrari, DO Status:AD M IN Location: [place] [id number] Subjective Subjective Following for NELSON. The patient denies chest pain, shortness of breath, or nausea. There is no diarrhea. Objective Data Objective Data Vital Signs: Vital Signs Temp Pulse Resp BP Pulse Ox O2 Del Method O2 Flow Rate 98.1 F 80 16 101/59 L 95 Room Air 2 12/08/23 15:45 12/08/23 15:45 12/08/23 15:45 12/08/23 15:45 12/08/23 15:45 12/08/23 15:45 12/08/23 15:38 Oxygen Flow Rate (L/min) 2 Oxygen Delivery Method Room Air Weight: 63.5 kg Body Mass Index (BMI) 18.9 Intake & Output: Intake and Output for Last 24 Hours 12/06/23 12/07/23 12/08/23 23:59 23:59 23:59 Intake Total 2911.67 / 3511.67 2031 / 2431 1260 / 1260 Output Total 3600 / 4000 2600 / 3200 1550 / 1550 Balance -688.33 / -488.33 -569 / -769 -290 / -290 Lab / Micro Data 12/08/23 04:00 12/08/23 04:00 Labs: Laboratory Results - last 24 hr 12/08/23 04:00: WBC 10.3, RBC 2.33 L, Hgb 7.8 L, Hct 23.9 L, MCV 102.6 H, MCH 33.5 H, MCHC 32.6, RDW Std Deviation 53.9 H, RDW Coeff of Issa 14.5, Plt Count 267, MPV 8.8, Immature Gran % (Auto) 1.100 H, Neut % (Auto) 74.4 H, Lymph % (Auto) 10.9 L, Faulkner % (Auto) 7.5, Eos % (Auto) 5.6 H, Baso % (Auto) 0.5, Absolute Neuts (auto) 7.6, Absolute Lymphs (auto) 1.12, Nucleated RBC % 0, Sodium 140, Potassium 3.5, Chloride 109 H, Carbon Dioxide 28.0, BUN 18, Creatinine 1.28, Estim Creat Clear Calc 46.16, Est GFR (MDRD) Af Amer 71, Est GFR (MDRD) Non-Af 59 L, BUN/Creatinine Ratio 14.1, Glucose 106, Calcium 7.9 L, Phosphorus 1.3 L, Albumin 2.2 L Micro: Microbiology 12/07/23 13:40 Sputum, Expectorated/Coughed Gram Stain - Final 12/07/23 16:15 Stool Stool Occult Blood (SINDY) - Final Occult Blood Positive 12/04/23 07:00 Sputum, Expectorated/Coughed Gram Stain - Final 12/04/23 07:00 Sputum, Expectorated/Coughed Respiratory Culture - Final Escherichia coli Staphylococcus aureus 12/03/23 17:06 Urine Catheter - Catheter Urine Culture - Final Culture exhibits no growth. 12/03/23 22:30 Mucosa - Nasopharyngeal Respiratory Panel (PCR) - Final 12/03/23 17:05 Urine Catheter - Catheter Legionella Antigen - Final 12/03/23 17:05 Urine Catheter - Catheter Streptococcus pneumoniae Antigen (M- Final Physical Exam Narrative Alert and oriented x3 S1, S2, RRR Lung sounds clear anteriorly Abdomen soft, nontender No edema Indwelling Rocha, pinkish colored urine Assessment & Plan Assessment/Plan (1) NELSON (acute kidney injury): (2) Hypokalemia: (3) Hypertension: QUALIFIERS: Hypertension type: essential hypertension Qualified Code(s): I10 - Essential (primary) hypertension PLAN: Plan Impression/Plan: This is a 73-year-old male with past medical history significant for COPD with chronic hypoxic respiratory failure, former tobacco use, hypertension, hyperlipidemia, GERD with history of GI bleed, history of kidney stones, chronicanemia who presented to the hospital on 12/03/2023 with complaints of inability to urinate, confusion. Rocha was placed in the emergency room with immediate return of 2 L of urine into bag. Acute kidney injury. The patient has normal baseline serum creatinine. Serum creatinine was 0.73 mg/dL on 01/16/2023. NELSON is secondary to obstructive nephropathy. Serum creatinine was 8.75 mg/dL on presentation 12/03/2023. Renal function has improved with relief of obstruction with Rocha catheter placement. Serum creatinine is down to 1.25 mg/dL yesterday on 12/07/2023 and is stable today at 1.28 mg/dL on 12/08/2023. The patient has postobstructive diuresis with urine output of 3.6 L on 12/06/2023. Urine output has decreased to 2.6 L on 12/07/2023. Polyuria is resolving as expected. BP is stable, so there is no need for IV fluid. There is no evidence of hypernatremia from polyuria. He will need to follow-up with urology for voiding trial and/or urodynamic testing prior to removal of Rocha catheter. Will probably need to discharge with Rocha catheter. Hypokalemia. Secondary to polyuria. There is no GI loss. There is no diarrhea. Potassium level has improved and is 3.5 mmol/L today. Continue to replace potassium deficit. Recheck potassium and magnesium levels tomorrow. Hypertension. The patient was on lisinopril prior to admission. HEIDI inhibitor is on hold because of NELSON. BP is acceptable without antihypertensive currently. Will continue to monitor BP. Okay to restart lisinopril if BP is consistently above 130/80. 12/08/231818 <Electronically signed by Lisa Elder MD> Cosigner Signature (if applicable): CC: ~ Signed [facility] Work Phone: [phone] 902-579402-25-2024 Progress [facility] December 08, 2023 1:17pm Note Date/Time December 08, 2023 10:00am [facility] Medical Records Department [address] [place] [address] Progress Note 12/08/23 0955 MR#: [id number] Acct: [id number] Name: ELIGIO MCCABE Rep #:[id number] : 1950 73 From: Trinidad Alarcon MD PCP: Dr. Shalini Ferrari, DO Status:AD M IN Location: IA3 XV834-9 Subjective Subjective Patient seen and examined. He had no complaints today. He had an uneventful night. Review of systems otherwise negative. His Hemoccult was positive for blood. This had been ordered on admission. His hemoglobin today 7.8. Will consult gastroenterology. He has otherwise remained hemodynamically stable. Objective Data Objective Data Vital Signs: Vital Signs Temp Pulse Resp BP Pulse Ox O2 Del Method O2 Flow Rate 98.2 F 72 16 102/58 L 95 Room Air 2 12/08/23 08:25 12/08/23 08:25 12/08/23 08:25 12/08/23 08:25 12/08/23 08:25 12/08/23 08:28 12/08/23 07:28 Oxygen Flow Rate (L/min) 2 Oxygen Delivery Method Room Air Weight: 139 lb 15.896 oz Body Mass Index (BMI) 18.9 Intake & Output: Intake and Output for Last 24 Hours 12/06/23 12/07/23 12/08/23 23:59 23:59 23:59 Intake Total 2911.67 / 3511.67 2031 / 2431 760 / 760 Output Total 3600 / 4000 2600 / 3200 1000 / 1000 Balance -688.33 / -488.33 -569 / -769 -240 / -240 Lab / Micro Data 12/08/23 04:00 12/08/23 04:00 Labs: Laboratory Results - last 24 hr 12/08/23 04:00: WBC 10.3, RBC 2.33 L, Hgb 7.8 L, Hct 23.9 L, MCV 102.6 H, MCH 33.5 H, MCHC 32.6, RDW Std Deviation 53.9 H, RDW Coeff of Issa 14.5, Plt Count 267, MPV 8.8, Immature Gran % (Auto) 1.100 H, Neut % (Auto) 74.4 H, Lymph % (Auto) 10.9 L, Faulkner % (Auto) 7.5, Eos % (Auto) 5.6 H, Baso % (Auto) 0.5, Absolute Neuts (auto) 7.6, Absolute Lymphs (auto) 1.12, Nucleated RBC % 0, Sodium 140, Potassium 3.5, Chloride 109 H, Carbon Dioxide 28.0, BUN 18, Creatinine 1.28, Estim Creat Clear Calc 46.16, Est GFR (MDRD) Af Amer 71, Est GFR (MDRD) Non-Af 59 L, BUN/Creatinine Ratio 14.1, Glucose 106, Calcium 7.9 L, Phosphorus 1.3 L, Albumin 2.2 L Micro: Microbiology 12/07/23 16:15 Stool Stool Occult Blood (SINDY) - Final Occult Blood Positive 12/04/23 07:00 Sputum, Expectorated/Coughed Gram Stain - Final 12/04/23 07:00 Sputum, Expectorated/Coughed Respiratory Culture - Final Escherichia coli Staphylococcus aureus 12/03/23 17:06 Urine Catheter - Catheter Urine Culture - Final Culture exhibits no growth. 12/03/23 22:30 Mucosa - Nasopharyngeal Respiratory Panel (PCR) - Final 12/03/23 17:05 Urine Catheter - Catheter Legionella Antigen - Final 12/03/23 17:05 Urine Catheter - Catheter Streptococcus pneumoniae Antigen (M- Final Physical Exam Const alert, oriented x3 and no apparent distress Constitutional Narrative: frail, elderly General Appearance: cooperative HEENT normocephalic, head/scalp atraumatic and moist oral mucous membranes Eyes PERRL and EOMs intact bilaterally Neck no lymphadenopathy, supple and no JVD Lymph Lymphatic: no lymphadenopathy noted and no lymphedema noted Resp Resp Narrative: mildly diminished breath sounds bibasally, no wheezes or crackles.On room air. Cardio regular rate, regular rhythm, S1 normal heart sound, S2 normal heart sound and no murmurs GI normal to inspection, nondistended, normoactive bowel sounds, soft to palpation,non-tender and non-distended Extremity normal capillary refill, no clubbing, cyanosis or edema and no calf tenderness General Extremity: no tenderness to palpation of joints or extremities Skin General Skin Exam: no breakdown Neuro CN's II-XII intact bilaterally, no focal motor deficits and no sensory deficits noted Motor Exam: general weakness Psych thought process normal and cooperative Appearance: appropriate Assessment & Plan Assessment/Plan (1) NELSON (acute kidney injury): PLAN: #NELSON with hyperkalemia * Resolved. Creatinine down to normal. on flomax. potassium is 3.5 today. * Will need follow-up with urology on outpatient basis and will need to be discharged with Rocha catheter in situ. NELSON was likely due to urine outlet obstruction. * Nephrology on board. * #COPD in the setting of chronic respiratory failure * On 2 L of oxygen. * Breathing treatments bronchodilators. Titrate oxygen to maintain saturation above 90%. Not in exacerbation. #Left lower lobe consolidation due to presumptive pneumonia * Chest x-ray showed left lower lobe and lingula consolidations. Patient denies any cough and is on his baseline 2 L of oxygen. Started on IV ceftriaxone and azithromycin empirically. * Urine for strep and Legionella negative. * Sputum cultures growing Staph aureus E. coli * on bactrim. * * #Anemia * hb today is 7.8. * Hb was as low as 6.4 during this admission though on repeat it was 7.7. * stool for occult blood is positive * consult GI * #Hyperkalemia: Likely due to NELSON. Resolved. #Hypokalemia:resolved. K is 3.5 today. #Hypertension: Lisinopril held due to NELSON and hyperkalemia. On atenolol. IV hydralazine as needed. #Hyperlipidemia: On statin #GERD: stool for occult blood positive. IV PPI DVT prophylaxis: SCDs. DC heparin due to anemia and positive occult blood. Disposition: Will likely benefit from placement. Case management on board. Charges/Coding Visit Charges Inpatient E&M: 73455 Subs Hosp L2 12/08/23 1317 <Electronically signed by Trinidad Alarcon MD> Trinidad Alarcon MD Cosigner Signature (if applicable): CC: ~ Signed [facility] Work Phone: [phone]) 910-321302-24-2024 Progress note Author Lisa brian [facility] December 07, 2023 8:22pm Note Date/Time December 07, 2023 7:13pm [facility] Medical Records Department [address] [facility] [place] [address] Progress Note - Nephrology 12/07/23 190 MR#: [id number] Acct: [id number] Name: ELIGIO MCCABE Rep #:[id number] : 1950 73 From: Lisa herring MD PCP: Dr. Shalini Ferrari, DO Status:AD M IN Location: MS3 QP051-3 Subjective Subjective Following for NELSON. The patient denies chest pain, shortness of breath, or nausea. Appetite remainsmarginal. He has been trying to push fluid. Objective Data Objective Data Vital Signs: Vital Signs Temp Pulse Resp BP Pulse Ox O2 Del Method O2 Flow Rate 98.8 F 80 16 107/64 97 Nasal Cannula 2 12/07/23 16:13 12/07/23 16:13 12/07/23 16:13 12/07/23 16:13 12/07/23 16:13 12/07/23 16:13 12/07/23 16:13 Oxygen Flow Rate (L/min) 2 Oxygen Delivery Method Nasal Cannula Weight: 63.2 kg Body Mass Index (BMI) 18.8 Intake & Output: Intake and Output for Last 24 Hours 12/05/23 12/06/23 12/07/23 23:59 23:59 23:59 Intake Total 4030.41 / 4030.41 2911.67 / 3511.67 1921 / 1921 Output Total 2750 / 2750 3600 / 4000 2600 / 2600 Balance 1280.41 / 1280.41 -688.33 / -488.33 -679 / -679 Lab / Micro Data 12/07/23 05:22 12/07/23 05:22 Labs: Laboratory Results - last 24 hr 12/07/23 05:22: WBC 11.4 H, RBC 2.37 L, Hgb 7.7 L, Hct 24.0 L, MCV 101.3 H, MCH 32.5 H, MCHC 32.1, RDW Std Deviation 52.2 H, RDW Coeff of Issa 14.2, Plt Count 292, MPV 9.5, Immature Gran % (Auto) 0.600, Neut % (Auto) 81.3 H, Lymph % (Auto)7.8 L, Faulkner % (Auto) 5.8, Eos % (Auto) 4.2, Baso % (Auto) 0.3, Absolute Neuts (auto) 9.2 H, Absolute Lymphs (auto) 0.88, Nucleated RBC % 0, Sodium 140, Potassium 3.2 L, Chloride 109 H, Carbon Dioxide 27.0, Anion Gap 4 L, BUN 18, Creatinine 1.25, Estim Creat Clear Calc 47.05, Est GFR (MDRD) Af Amer 73, Est GFR (MDRD) Non-Af 60, BUN/Creatinine Ratio 14.4, Glucose 89, Calcium 8.4 L Micro: Microbiology 12/07/23 16:15 Stool Stool Occult Blood (SINDY) - Final Occult Blood Positive 12/04/23 07:00 Sputum, Expectorated/Coughed Gram Stain - Final 12/04/23 07:00 Sputum, Expectorated/Coughed Respiratory Culture - Final Escherichia coli Staphylococcus aureus 12/03/23 17:06 Urine Catheter - Catheter Urine Culture - Final Culture exhibits no growth. 12/03/23 22:30 Mucosa - Nasopharyngeal Respiratory Panel (PCR) - Final 12/03/23 17:05 Urine Catheter - Catheter Legionella Antigen - Final 12/03/23 17:05 Urine Catheter - Catheter Streptococcus pneumoniae Antigen (M- Final Physical Exam Narrative Alert and oriented x3 S1, S2, RRR Lung sounds clear anteriorly Abdomen soft, nontender No edema Indwelling Rocha, pinkish colored urine Assessment & Plan Assessment/Plan (1) NELSON (acute kidney injury): PLAN: Plan Impression/Plan: This is a 73-year-old male with past medical history significant for COPD with chronic hypoxic respiratory failure, former tobacco use, hypertension, hyperlipidemia, GERD with history of GI bleed, history of kidney stones, chronic anemia who presented to the hospital on 12/03/2023 with complaints of inability to urinate, confusion. Rocha was placed in the emergency room with immediate return of 2 L of urine into bag. Acute kidney injury. The patient has normal baseline SCr. NELSON is secondary to obstructive nephropathy. Serum creatinine was 8.75 mg/dL on presentation 06/15/2024. Serum creatinine is down to 1.25 mg/dL today. The patient did have postobstructive diuresis with urine output of 3.6 L on 12/06/2023. Urine output has decreased to 2.6 L in the last 24 hours. BP is stable, so there is no need for IV fluid. There is no evidence of hyponatremia from polyuria. He will need to follow-up with urology for voiding trial and/or urodynamic testing prior to removal of Rocha catheter. Will probably need to discharge with Rocha catheter. Hypokalemia. Secondary to polyuria. There is no GI loss. There is no diarrhea. Continue to replace potassium deficit. Recheck potassium and magnesium levels tomorrow. Hypertension. The patient was on lisinopril prior to admission. HEIDI inhibitor is on hold because of NELSON. BP is acceptable without antihypertensive currently. Will continue to monitor BP. 12/07/232021 <Electronically signed by Lisa Elder MD> Cosigner Signature (if applicable): CC: ~ Signed [facility] Work Phone: [phone] Progress note Author [facility] December 07, 2023 3:13pm Note Date/Time December 07, 2023 11:56am [facility] Medical Records Department [address] [place] [address] Progress Note 12/07/23 1154 MR#: [id number] Acct: [id number] Name: ELIGIO MCCABE Rep #:[id number] : 1950 73 From: Trinidad Alarcon MD PCP: Dr. Shalini Ferrari, DO Status:AD M IN Location: [place] 074823-1 Subjective Subjective Patient seen and examined. He had no active complaints today. He had an uneventful night. Review of systems otherwise negative. Potassium is 3.2 today. Creatinine has normalized to 1.25. Objective Data Objective Data Vital Signs: Vital Signs Temp Pulse Resp BP Pulse Ox O2 Del Method O2 Flow Rate 98 F 91 16 131/85 H 99 Room Air 2 12/07/23 08:51 12/07/23 08:51 12/07/23 08:51 12/07/23 08:51 12/07/23 08:51 12/07/23 08:51 12/07/23 07:55 Oxygen Flow Rate (L/min) 2 Oxygen Delivery Method Room Air Weight: 139 lb 5.314 oz Body Mass Index (BMI) 18.8 Intake & Output: Intake and Output for Last 24 Hours 12/05/23 12/06/23 12/07/23 23:59 23:59 23:59 Intake Total 4030.41 / 4030.41 2911.67 / 3511.67 1021 / 1021 Output Total 2750 / 2750 3600 / 4000 2100 / 2100 Balance 1280.41 / 1280.41 -688.33 / -488.33 -1079 / -1079 Lab / Micro Data 12/07/23 05:22 12/07/23 05:22 Labs: Laboratory Results - last 24 hr 12/07/23 05:22: WBC 11.4 H, RBC 2.37 L, Hgb 7.7 L, Hct 24.0 L, MCV 101.3 H, MCH 32.5 H, MCHC 32.1, RDW Std Deviation 52.2 H, RDW Coeff of Issa 14.2, Plt Count 292, MPV 9.5, Immature Gran % (Auto) 0.600, Neut % (Auto) 81.3 H, Lymph % (Auto)7.8 L, Faulkner % (Auto) 5.8, Eos % (Auto) 4.2, Baso % (Auto) 0.3, Absolute Neuts (auto) 9.2 H, Absolute Lymphs (auto) 0.88, Nucleated RBC % 0, Sodium 140, Potassium 3.2 L, Chloride 109 H, Carbon Dioxide 27.0, Anion Gap 4 L, BUN 18, Creatinine 1.25, Estim Creat Clear Calc 47.05, Est GFR (MDRD) Af Amer 73, Est GFR (MDRD) Non-Af 60, BUN/Creatinine Ratio 14.4, Glucose 89, Calcium 8.4 L Micro: Microbiology 12/04/23 07:00 Sputum, Expectorated/Coughed Gram Stain - Final 12/04/23 07:00 Sputum, Expectorated/Coughed Respiratory Culture - Final Escherichia coli Staphylococcus aureus 12/03/23 17:06 Urine Catheter - Catheter Urine Culture - Final Culture exhibits no growth. 12/03/23 22:30 Mucosa - Nasopharyngeal Respiratory Panel (PCR) - Final 12/03/23 17:05 Urine Catheter - Catheter Legionella Antigen - Final 12/03/23 17:05 Urine Catheter - Catheter Streptococcus pneumoniae Antigen (M- Final Physical Exam Const alert, oriented x3 and no apparent distress Constitutional Narrative: frail, elderly General Appearance: cooperative HEENT normocephalic and head/scalp atraumatic Eyes PERRL and EOMs intact bilaterally Neck no lymphadenopathy and supple Lymph Lymphatic: no lymphadenopathy noted and no lymphedema noted Resp Resp Narrative: mildly diminished breath sounds bibasally, no wheezes or crackles.On room air. Cardio regular rate, regular rhythm, S1 normal heart sound, S2 normal heart sound and no murmurs GI normal to inspection, nondistended, normoactive bowel sounds, soft to palpation,non-tender and non-distended Extremity normal capillary refill, no clubbing, cyanosis or edema and no calf tenderness General Extremity: no tenderness to palpation of joints or extremities Skin General Skin Exam: no breakdown Neuro CN's II-XII intact bilaterally, no focal motor deficits and no sensory deficits noted Motor Exam: general weakness Psych thought process normal and cooperative Appearance: appropriate Assessment & Plan Assessment/Plan (1) NELSON (acute kidney injury): PLAN: #NELSON with hyperkalemia * Resolved. Creatinine down to normal. Potassium is actually low at 3.2 today. On Flomax. * Will need follow-up with urology on outpatient basis and will need to be discharged with Rocha catheter in situ. NELSON was likely due to urine outlet obstruction. * Nephrology on board. * #COPD in the setting of chronic respiratory failure * On 2 L of oxygen. * Breathing treatments bronchodilators. Titrate oxygen to maintain saturation above 90%. Not in exacerbation. #Left lower lobe consolidation due to presumptive pneumonia * Chest x-ray showed left lower lobe and lingula consolidations. Patient denies any cough and is on his baseline 2 L of oxygen. Started on IV ceftriaxone and azithromycin empirically. * Urine for strep and Legionella negative. * Sputum cultures growing Staph aureus E. coli WBC is down to 11.4 * on bactrim. * #Hyperkalemia: Likely due to NELSON. Resolved. #Hypokalemia: potassium is 3.2. Will replace and trend. #Hypertension: Lisinopril held due to NELSON and hyperkalemia. On atenolol. IV hydralazine as needed. #Hyperlipidemia: On statin #GERD: On PPI continue DVT prophylaxis: Heparin Disposition: Will likely benefit from placement. Case management on board. Charges/Coding Visit Charges Inpatient E&M: 50184 Subs Hosp L2 12/07/23 9865 <Electronically signed by Trinidad Alarcon MD> Trinidad Alarcon MD Cosigner Signature (if applicable): CC: ~ Signed [facility] Work Phone: 1(691) 802-561302-23-2024 Progress note Author [facility] December 06, 2023 3:46pm Note Date/Time December 06, 2023 9:59am [facility] Medical Records Department [address] [place] [address] Progress Note 12/06/2353 MR#: [id number] Acct: [id number] Name: ELIGIO MCCABE Rep #:[id number] : 1950 73 From: Trinidad Alarcon MD PCP: Dr. Shalini Ferrari, DO Status:AD M IN Location: ICU ICU03-1 Subjective Subjective Review of systems otherwise negative. He has remained hemodynamically stable.Patient seen and examined. He was lying comfortably in bed. He had no active complaints. Review of systems otherwise negative. Objective Data Objective Data Vital Signs: Vital Signs Temp Pulse Resp BP Pulse Ox O2 Del Method O2 Flow Rate 98.5 F 71 16 126/68 H 95 Nasal Cannula 2 12/06/23 08:45 12/06/23 08:45 12/06/23 08:45 12/06/23 08:45 12/06/23 08:45 12/06/23 08:45 12/06/23 08:45 Oxygen Flow Rate (L/min) 2 Oxygen Delivery Method Nasal Cannula Weight: 140 lb 10.479 oz Body Mass Index (BMI) 19.1 Intake & Output: Intake and Output for Last 24 Hours 12/04/23 12/05/23 12/06/23 23:59 23:59 23:59 Intake Total 4835.83 / 4835.83 4030.41 / 4030.41 1156.67 / 1156.67 Output Total 3350 / 3350 2750 / 2750 2600 / 2600 Balance 1485.83 / 1485.83 1280.41 / 1280.41 -1443.33 / -1443.33 Lab / Micro Data 12/06/23 06:30 12/06/23 06:30 Labs: Laboratory Results - last 24 hr 12/04/23 11:25: IgG 1257, IgA 348, IgM 31, Serum Immunofixation Comment 12/06/23 06:30: WBC 14.3 H, RBC 2.57 L, Hgb 8.2 L, Hct 25.6 L, MCV 99.6 H, MCH 31.9, MCHC 32.0, RDW Std Deviation 51.9 H, RDW Coeff of Issa 14.2, Plt Count 284,MPV 9.5, Immature Gran % (Auto) 0.500, Neut % (Auto) 85.5 H, Lymph % (Auto) 6.0 L, Faulkner % (Auto) 4.6, Eos % (Auto) 3.2, Baso % (Auto) 0.2, Absolute Neuts (auto)12.2 H, Absolute Lymphs (auto) 0.85, Nucleated RBC % 0, Sodium 139, Potassium 2.9 L, Chloride 106, Carbon Dioxide 28.0, Anion Gap 5, BUN 26 H, Creatinine 1.63H, Estim Creat Clear Calc 36.42, Est GFR (MDRD) Af Amer 54 L, Est GFR (MDRD) Non-Af 44 L, BUN/Creatinine Ratio 16.0, Glucose 97, Calcium 8.6 Micro: Microbiology 12/04/23 07:00 Sputum, Expectorated/Coughed Gram Stain - Final 12/04/23 07:00 Sputum, Expectorated/Coughed Respiratory Culture - Final Escherichia coli Staphylococcus aureus 12/03/23 17:06 Urine Catheter - Catheter Urine Culture - Final Culture exhibits no growth. 12/03/23 22:30 Mucosa - Nasopharyngeal Respiratory Panel (PCR) - Final 12/03/23 17:05 Urine Catheter - Catheter Legionella Antigen - Final 12/03/23 17:05 Urine Catheter - Catheter Streptococcus pneumoniae Antigen (M- Final Physical Exam Const alert, oriented x3 and no apparent distress Constitutional Narrative: frail, elderly General Appearance: cooperative HEENT normocephalic and head/scalp atraumatic Eyes PERRL and EOMs intact bilaterally Neck no lymphadenopathy and supple Lymph Lymphatic: no lymphadenopathy noted and no lymphedema noted Resp Resp Narrative: mildly diminished breath sounds bibasally, no wheezes or crackles.On 2L of oxygen by nasal canula Cardio regular rate, regular rhythm, S1 normal heart sound, S2 normal heart sound and no murmurs GI normal to inspection, nondistended, normoactive bowel sounds, soft to palpation,non-tender and non-distended Extremity normal capillary refill, no clubbing, cyanosis or edema and no calf tenderness Skin General Skin Exam: no breakdown Neuro CN's II-XII intact bilaterally, no focal motor deficits and no sensory deficits noted Motor Exam: general weakness Psych thought process normal and cooperative Appearance: appropriate Assessment & Plan Assessment/Plan (1) NELSON (acute kidney injury): PLAN: #NELSON with hyperkalemia * Creatinine was 8.75 on admission with baseline creatinine around 0.9-1. Cr eatinine down down to 1.63. * CT abdomen and pelvis showed evidence of urine retention. He had a Rcoha catheter inserted and had 2.5 L of urine drained. Rocha catheter still in situ. * Potassium was also markedly elevated. He was started on bicarb drip. Also on Flomax. * Rocha catheter remains in situ. Potassium has trended down with multiple doses of Kayexalate. * Nephrology on board. * #COPD in the setting of chronic respiratory failure * On 2 L of oxygen. * Breathing treatments bronchodilators. Titrate oxygen to maintain saturation above 90%. Not in exacerbation. #Left lower lobe consolidation due to presumptive pneumonia * Chest x-ray showed left lower lobe and lingula consolidations. Patient denies any cough and is on his baseline 2 L of oxygen. Started on IV ceftriaxone and azithromycin empirically. * Urine for strep and Legionella negative. * Sputum cultures growing Staph aureus E. coli both of which are sensitive to Bactrim so we will switch antibiotics to Bactrim. WBC is up to 14 today. * * #Hyperkalemia: Likely due to NELSON. Resolved. #Hypertension: Lisinopril held due to NELSON and hyperkalemia. On atenolol. IV hydralazine as needed. #Hyperlipidemia: On statin #GERD: On PPI continue DVT prophylaxis: Heparin Disposition: Will likely benefit from placement. Case management on board. Charges/Coding Visit Charges Inpatient E&M: 98443 Subs Hosp L2 12/06/23 1546 <Electronically signed by Trinidad Alarcon MD> Trinidad Alarcon MD Cosigner Signature (if applicable): CC: ~ Signed [facility] Work Phone: 1([phone]) 109-988902-23-2024 Progress note Author Suzanne Ferrer [facility] December 06, 2023 11:56am Note Date/Time December 06, 2023 11:56am [facility] Medical Records Department [address] [place] [id number] Progress Note - Nephrology 12/06/23 1155 MR#: [id number] Acct: [id number] Name: ELIGIO MCCABE Rep #:[id number] : 1950 73 From: Suzanne aguilar MD PCP: Dr. Shalini Ferrari, DO Status:AD M IN Location: ICU ICU-1 Subjective Subjective No new complaints Objective Data Objective Data Vital Signs: Vital Signs Temp Pulse Resp BP Pulse Ox O2 Del Method O2 Flow Rate 98.5 F 71 16 126/68 H 95 Nasal Cannula 2 12/06/23 08:45 12/06/23 08:45 12/06/23 08:45 12/06/23 08:45 12/06/23 08:45 12/06/23 08:45 12/06/23 11:10 Oxygen Flow Rate (L/min) 2 Oxygen Delivery Method Nasal Cannula Weight: 63.8 kg Body Mass Index (BMI) 19.1 Intake & Output: Intake and Output for Last 24 Hours 12/04/23 12/05/23 12/06/23 23:59 23:59 23:59 Intake Total 4835.83 / 4835.83 4030.41 / 4030.41 1356.67 / 1356.67 Output Total 3350 / 3350 2750 / 2750 2600 / 2600 Balance 1485.83 / 1485.83 1280.41 / 1280.41 -1243.33 / -1243.33 Lab / Micro Data 12/06/23 06:30 12/06/23 06:30 Labs: Laboratory Results - last 24 hr 12/04/23 11:25: IgG 1257, IgA 348, IgM 31, Serum Immunofixation Comment 12/06/23 06:30: WBC 14.3 H, RBC 2.57 L, Hgb 8.2 L, Hct 25.6 L, MCV 99.6 H, MCH 31.9, MCHC 32.0, RDW Std Deviation 51.9 H, RDW Coeff of Issa 14.2, Plt Count 284,MPV 9.5, Immature Gran % (Auto) 0.500, Neut % (Auto) 85.5 H, Lymph % (Auto) 6.0 L, Faulkner % (Auto) 4.6, Eos % (Auto) 3.2, Baso % (Auto) 0.2, Absolute Neuts (auto)12.2 H, Absolute Lymphs (auto) 0.85, Nucleated RBC % 0, Sodium 139, Potassium 2.9 L, Chloride 106, Carbon Dioxide 28.0, Anion Gap 5, BUN 26 H, Creatinine 1.63H, Estim Creat Clear Calc 36.42, Est GFR (MDRD) Af Amer 54 L, Est GFR (MDRD) Non-Af 44 L, BUN/Creatinine Ratio 16.0, Glucose 97, Calcium 8.6 Micro: Microbiology 12/04/23 07:00 Sputum, Expectorated/Coughed Gram Stain - Final 12/04/23 07:00 Sputum, Expectorated/Coughed Respiratory Culture - Final Escherichia coli Staphylococcus aureus 12/03/23 17:06 Urine Catheter - Catheter Urine Culture - Final Culture exhibits no growth. 12/03/23 22:30 Mucosa - Nasopharyngeal Respiratory Panel (PCR) - Final 12/03/23 17:05 Urine Catheter - Catheter Legionella Antigen - Final 12/03/23 17:05 Urine Catheter - Catheter Streptococcus pneumoniae Antigen (M- Final Physical Exam Narrative Alert and oriented x3 S1, S2, RRR Lung sounds clear anteriorly Abdomen soft, nontender No edema Indwelling Rocha, pinkish colored urine Assessment & Plan Assessment/Plan (1) NELSON (acute kidney injury): PLAN: Plan This is a 73-year-old male with past medical history significant for COPD with chronic hypoxic respiratory failure, former tobacco use, hypertension, hyperlipidemia, GERD with history of GI bleed, history of kidney stones, chronicanemia who presented to the emergency room yesterday with complaints of inability to urinate, confusion, Rocha placed in the emergency room with immediate return of 2 L of urine into bag. - NELSON with normal baseline SCr likely from obstruction. Likely obstructive nephropathy. Creatinine is down to 1.6. Output is decent. Since creatinine isclose to baseline, can stop IV fluids. He will need to follow-up with urology for consideration of Rocha catheter removal. Will probably need Rocha catheter at the time of discharge. Hypernatremia. Better. DC IV fluids Hypokalemia. Repleted this morning Hypercalcemia. Presented admission. Now resolved. SPEP negative. PTH is not high. 12/06/23 1156 <Electronically signed by Suzanne Ferrer MD> Cosigner Signature (if applicable): CC: ~ Signed [facility] Work Phone: 1(420) 575-177302-23-2024 Progress note Author Suzanne Ferrer [facility] December 06, 2023 11:13am Note Date/Time December 05, 2023 11:40am [facility] Medical Records Department [address] [place] [address] Progress Note - Nephrology 12/05/23 1131 MR#: [id number] Acct: [id number] Name: ELIGIO MCCABE Rep #:[id number] : 1950 73 From: Jacey stoll TREASURY ANALYST-C PCP: Dr. Shalini Ferrari, DO Status:AD M IN Location: ICU ICU03-1 Subjective Subjective Sitting in chair, more alert and oriented today. Denies any nausea. States appetite is fair. Objective Data Objective Data Vital Signs: Vital Signs Temp Pulse Resp BP Pulse Ox O2 Del Method O2 Flow Rate 98.1 F 61 17 118/61 97 Nasal Cannula 2 12/05/23 11:00 12/05/23 11:00 12/05/23 11:00 12/05/23 11:00 12/05/23 11:00 12/05/23 11:00 12/05/23 11:00 Oxygen Flow Rate (L/min) 2 Oxygen Delivery Method Nasal Cannula Weight: 62.1 kg Body Mass Index (BMI) 18.6 Intake & Output: Intake and Output for Last 24 Hours 12/03/23 12/04/23 12/05/23 23:59 23:59 23:59 Intake Total 1030 / 1030 4835.83 / 4835.83 2582.08 / 2582.08 Output Total 3100 / 3100 3350 / 3350 2049 / 2049 Balance -2069 / -2069 1485.83 / 1485.83 532.08 / 532.08 Lab / Micro Data 12/05/23 05:05 12/05/23 05:05 Labs: Laboratory Results - last 24 hr 12/04/23 06:51: POC Glucose 67 L 12/04/23 11:21: POC Glucose 113 H 12/04/23 11:25: PTH Intact 30.1 12/04/23 14:20: Hgb 6.4 L, Hct 19.6 L 12/04/23 15:45: Hgb 7.7 L, Hct 23.7 L 12/05/23 05:05: WBC 13.6 H, RBC 2.68 L, Hgb 8.7 L, Hct 27.2 L, MCV 101.5 H, MCH 32.5 H, MCHC 32.0, RDW Std Deviation 54.1 H, RDW Coeff of Issa 14.6, Plt Count 296, MPV 9.4, Immature Gran % (Auto) 0.400, Neut % (Auto) 87.0 H, Lymph % (Auto)6.6 L, Faulkner % (Auto) 4.5, Eos % (Auto) 1.1, Baso % (Auto) 0.4, Absolute Neuts (auto) 11.8 H, Absolute Lymphs (auto) 0.89, Nucleated RBC % 0, Sodium 137, Potassium 3.8, Chloride 103, Carbon Dioxide 30.0, BUN 47 H, Creatinine 3.20 H, Estim Creat Clear Calc 18.06, Est GFR (MDRD) Af Amer 25 L, Est GFR (MDRD) Non-Af20 L, BUN/Creatinine Ratio 14.7, Glucose 101, Calcium 9.8, Phosphorus 3.4, Albumin 2.7 L Micro: Microbiology 12/04/23 07:00 Sputum, Expectorated/Coughed Gram Stain - Final 12/04/23 07:00 Sputum, Expectorated/Coughed Respiratory Culture - Preliminary GNR lactose tent finisher Staphylococcus species 12/03/23 17:06 Urine Catheter - Catheter Urine Culture - Preliminary Culture exhibits no growth. 12/03/23 22:30 Mucosa - Nasopharyngeal Respiratory Panel (PCR) - Final 12/03/23 17:05 Urine Catheter - Catheter Legionella Antigen - Final 12/03/23 17:05 Urine Catheter - Catheter Streptococcus pneumoniae Antigen (M- Final Physical Exam Narrative Alert and oriented x3 S1, S2, RRR Lung sounds clear anteriorly Abdomen soft, nontender No edema Indwelling Rocha, pinkish colored urine Assessment & Plan Assessment/Plan (1) NELSON (acute kidney injury): PLAN: Plan This is a 73-year-old male with past medical history significant for COPD with chronic hypoxic respiratory failure, former tobacco use, hypertension, hyperlipidemia, GERD with history of GI bleed, history of kidney stones, chronicanemia who presented to the emergency room yesterday with complaints of inability to urinate, confusion, Rocha placed in the emergency room with immediate return of 2 L of urine into bag. - NELSON with normal baseline SCr likely from obstruction. Admission SCr 8.75, BUN 102, calcium 11.6, potassium 8.4 (initial potassium hemolyzed repeat potassium 8.0). Today SCr 3.2, K+ 3.8, BUN 47. With placing rocha and IVF renal function improved. Patient received multiple doses Kayexalate, bicarb, insulin, calcium gluconate, D5 and started on bicarb drip. Non-contrast CT A/P showed b/l nonobstructing nephroliths, possible mild left hydro. Patient has good urine output. 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 Will keep on gentle IVF for another day, decrease rate. BPs acceptable, continue off lisinopril. - Hypercalcemia; Serum calcium 11.6 on admission, patient has normal baseline serum calcium trends. Phosphorus was 5.8. Serum calcium is trending down and today calcium 9.8, phos 3.4. PTH 30. SPEP pending. 12/05/23 1140 <Electronically signed by Jacey ROSE> Cosigner Signature (if applicable): 12/06/23 1113 <Electronically signed by Suzanne Ferrer MD> CC: ~ Signed [facility] Work Phone: 1(106) 684-527402-22-2024 Progress note Author Trinidad [facility] December 05, 2023 3:48pm Note Date/Time December 05, 2023 10:[address] [place] [address] Health System Medical Records Department [address] [place] [address] Progress Note 12/05/23 1011 MR#: [id number] Acct: [id number] Name: ELIGIO MCCABE CHAPIN Rep #:[id number] : 1950 73 From: Trinidad Alarcon MD PCP: Dr. Shalini Ferrari, DO Status:AD M IN Location: ICU ICU03-1 Subjective Subjective Patient seen and examined. He said he felt better today. He had no complaints and had an uneventful night. Review of systems otherwise negative. Creatinine continues to trend downwards and hyperkalemia has resolved. Objective Data Objective Data Vital Signs: Vital Signs Temp Pulse Resp BP Pulse Ox O2 Del Method O2 Flow Rate 98.9 F 65 21 H 128/68 H 95 Nasal Cannula 2 12/05/23 10:00 12/05/23 10:00 12/05/23 10:00 12/05/23 10:00 12/05/23 10:00 12/05/23 10:00 12/05/23 10:00 Oxygen Flow Rate (L/min) 2 Oxygen Delivery Method Nasal Cannula Weight: 136 lb 14.513 oz Body Mass Index (BMI) 18.6 Intake & Output: Intake and Output for Last 24 Hours 12/03/23 12/04/23 12/05/23 23:59 23:59 23:59 Intake Total 1030 / 1030 4835.83 / 4835.83 2327.08 / 2327.08 Output Total 3100 / 3100 3350 / 3350 1100 / 1100 Balance -2070 / -2070 1485.83 / 1485.83 1227.08 / 1227.08 Lab / Micro Data 12/05/23 05:05 12/05/23 05:05 Labs: Laboratory Results - last 24 hr 12/04/23 06:51: POC Glucose 67 L 12/04/23 11:21: POC Glucose 113 H 12/04/23 11:25: PTH Intact 30.1 12/04/23 14:20: Hgb 6.4 L, Hct 19.6 L 12/04/23 15:45: Hgb 7.7 L, Hct 23.7 L 12/05/23 05:05: WBC 13.6 H, RBC 2.68 L, Hgb 8.7 L, Hct 27.2 L, MCV 101.5 H, MCH 32.5 H, MCHC 32.0, RDW Std Deviation 54.1 H, RDW Coeff of Issa 14.6, Plt Count 296, MPV 9.4, Immature Gran % (Auto) 0.400, Neut % (Auto) 87.0 H, Lymph % (Auto)6.6 L, Faulkner % (Auto) 4.5, Eos % (Auto) 1.1, Baso % (Auto) 0.4, Absolute Neuts (auto) 11.8 H, Absolute Lymphs (auto) 0.89, Nucleated RBC % 0, Sodium 137, Potassium 3.8, Chloride 103, Carbon Dioxide 30.0, BUN 47 H, Creatinine 3.20 H, Estim Creat Clear Calc 18.06, Est GFR (MDRD) Af Amer 25 L, Est GFR (MDRD) Non-Af20 L, BUN/Creatinine Ratio 14.7, Glucose 101, Calcium 9.8, Phosphorus 3.4, Albumin 2.7 L Micro: Microbiology 12/04/23 07:00 Sputum, Expectorated/Coughed Gram Stain - Final 12/04/23 07:00 Sputum, Expectorated/Coughed Respiratory Culture - Preliminary GNR lactose tent finisher Staphylococcus species 12/03/23 17:06 Urine Catheter - Catheter Urine Culture - Preliminary Culture exhibits no growth. 12/03/23 22:30 Mucosa - Nasopharyngeal Respiratory Panel (PCR) - Final 12/03/23 17:05 Urine Catheter - Catheter Legionella Antigen - Final 12/03/23 17:05 Urine Catheter - Catheter Streptococcus pneumoniae Antigen (M- Final Physical Exam Const alert, oriented x3 and no apparent distress Constitutional Narrative: frail, elderly General Appearance: cooperative HEENT normocephalic and head/scalp atraumatic Mouth: dry mucous membranes Eyes PERRL and EOMs intact bilaterally Neck no lymphadenopathy and supple Lymph Lymphatic: no lymphadenopathy noted and no lymphedema noted Resp Resp Narrative: mildly diminished breath sounds bibasally, no wheezes or crackles.On 2L of oxygen by nasal canula Cardio regular rate, regular rhythm, S1 normal heart sound, S2 normal heart sound and no murmurs GI normal to inspection, nondistended, normoactive bowel sounds, soft to palpation,non-tender and non-distended Extremity normal capillary refill, no clubbing, cyanosis or edema and no calf tenderness Skin General Skin Exam: no breakdown Neuro CN's II-XII intact bilaterally and no focal motor deficits Motor Exam: general weakness Psych thought process normal and cooperative Appearance: appropriate Assessment & Plan Assessment/Plan (1) NELSON (acute kidney injury): PLAN: #NELSON with hyperkalemia * Creatinine was 8.75 on admission with baseline creatinine around 0.9-1. Cr now down to 6. Potassiium is 5.1 * CT abdomen and pelvis showed evidence of urine retention. He had a Rocha catheter inserted and had 2.5 L of urine drained. Rocha catheter still in situ. * Potassium was also markedly elevated. He was started on bicarb drip. Also on Flomax. * Rocha catheter remains in situ. Potassium has trended down with multiple doses of Kayexalate. * Nephrology on board. Creatinine is down to 3.2 and hyperkalemia has resolved. #COPD in the setting of chronic respiratory failure * On 2 L of oxygen. * Breathing treatments bronchodilators. Titrate oxygen to maintain saturation above 90%. Not in exacerbation. #Left lower lobe consolidation due to presumptive pneumonia * Chest x-ray showed left lower lobe and lingula consolidations. Patient denies any cough and is on his baseline 2 L of oxygen. Started on IV ceftriaxone and azithromycin empirically. * Urine for strep and Legionella negative. * Sputum cultures growing staph species and gram-negative rods lactose tent finisher with speciation pending. * Will switch antibiotics to Levaquin. * #Hyperkalemia: Likely due to NELSON. Resolved. #Hypertension: Lisinopril held due to NELSON and hyperkalemia. On atenolol. IV hydralazine as needed. #Hyperlipidemia: On statin #GERD: On PPI continue DVT prophylaxis: Heparin Disposition: Transfer out of ICU to [facility] today. Charges/Coding Visit Charges Inpatient E&M: 43665 Subs Hosp L2 12/05/23 1548 <Electronically signed by Trinidad Alarcon MD> Trinidad Alarcon MD Cosigner Signature (if applicable): CC: ~ Signed [facility] Work Phone: 1(243) 157-777502-22-2024 Progress note Author Sammy Ferrari [facility] December 05, 2023 12:09pm Note Date/Time December 05, 2023 6:59am [facility] Medical Records Department [address] [place] [address] Progress Note - International Operations Manager 12/05/23 0658 MR#: [id number] Acct: [id number] Name: ELIGIO MCCABE Rep #:[id number] : 1950 73 From: Sammy Ferrari DO PCP: Dr. Shalini Ferrari, DO Status:AD M IN Location: ICU ICU03-1 Assessment & Plan Assessment/Plan (1) NELSON (acute kidney injury): PLAN: Plan RECOMMENDATIONS: 1. Continue empiric antibiotics to complete 7 days of therapy. 2. Continue scheduled bronchodilators. 3. Supplemental oxygen to maintain saturations at or above 90%. 4. Continue to monitor H&H and transfuse if hemoglobin drops below 7 g/dL. 5. Continue PPI therapy. 6. Will sign off from a critical care perspective. Please call with any additional questions. IMPRESSIONS: 1. Acute kidney injury/hyperkalemia Improving. Likely multifactorial in etiology. Hyperkalemia has resolved with improving renal parameters with IV fluid resuscitation. Nephrology is followingto assist with medical management. Continue current supportive care. 2. Metabolic encephalopathy Improving. Most likely secondary to presenting uremia. 3. History of COPD with left lower lobe consolidation The patient is stable from a respiratory perspective. Plan to continue empiric antibiotics along with scheduled bronchodilators. Supplemental oxygen will be continued to maintain saturations at or above 90%. 4. Anemia The patient has known chronic anemia with a baseline hemoglobin in the 9 to 11 g/dL range. Although low, the patient's blood counts remained stable. Continueto monitor H&H daily and transfuse if hemoglobin drops below 7 g/dL. Continue PPI therapy. 5. History of tobacco dependency in remission/GERD/hypertension/hyperlipidemia Complicates care, management, recovery and prognosis. Continue home medicationsas indicated. This note was generated with [employer] dictation software. It may contain incorrectwords, spelling, and punctuation that were not noted in checking the note beforesigning. Subjective Subjective The patient was seen and examined at the bedside this morning. Events from the last 24 hours have been reviewed. The patient is currently afebrile, hemodynamically stable and maintaining appropriate oxygen saturations on 2 L/minvia nasal cannula. Hemoglobin is stable at 8.7 g/dL. BUN and creatinine have improved to 47 and 3.2, respectively. Objective Data Objective Data The patient's most recent lab work, culture data and imaging studies have all been personally reviewed. Infectious workup has been unrevealing to date. Vital Signs: Vital Signs Temp Pulse Resp BP Pulse Ox O2 Del Method O2 Flow Rate 98.2 F 70 16 167/62 H 94 Nasal Cannula 2 12/05/23 05:00 12/05/23 06:00 12/05/23 06:00 12/05/23 06:00 12/05/23 06:00 12/05/23 06:00 12/05/23 06:00 Oxygen Flow Rate (L/min) 2 Oxygen Delivery Method Nasal Cannula Weight: 136 lb 14.513 oz Body Mass Index (BMI) 18.6 Intake & Output: Intake and Output for Last 24 Hours 12/03/23 12/04/23 12/05/23 23:59 23:59 23:59 Intake Total 1030 / 1030 4835.83 / 4835.83 989.58 / 989.58 Output Total 3100 / 3100 3350 / 3350 1100 / 1100 Balance -2070 / -2070 1485.83 / 1485.83 -110.42 / -110.42 Lab / Micro Data Attestation: I reviewed the patient's lab results. 12/05/23 05:05 12/05/23 05:05 Labs: Laboratory Results - last 24 hr 12/04/23 06:51: POC Glucose 67 L 12/04/23 09:50: Hgb 8.4 L, Hct 25.8 L 12/04/23 11:21: POC Glucose 113 H 12/04/23 11:25: PTH Intact 30.1 12/04/23 14:20: Hgb 6.4 L, Hct 19.6 L 12/04/23 15:45: Hgb 7.7 L, Hct 23.7 L 12/05/23 05:05: WBC 13.6 H, RBC 2.68 L, Hgb 8.7 L, Hct 27.2 L, MCV 101.5 H, MCH 32.5 H, MCHC 32.0, RDW Std Deviation 54.1 H, RDW Coeff of Issa 14.6, Plt Count 296, MPV 9.4, Immature Gran % (Auto) 0.400, Neut % (Auto) 87.0 H, Lymph % (Auto)6.6 L, Faulkner % (Auto) 4.5, Eos % (Auto) 1.1, Baso % (Auto) 0.4, Absolute Neuts (auto) 11.8 H, Absolute Lymphs (auto) 0.89, Nucleated RBC % 0, Sodium 137, Potassium 3.8, Chloride 103, Carbon Dioxide 30.0, BUN 47 H, Creatinine 3.20 H, Estim Creat Clear Calc 18.06, Est GFR (MDRD) Af Amer 25 L, Est GFR (MDRD) Non-Af20 L, BUN/Creatinine Ratio 14.7, Glucose 101, Calcium 9.8, Phosphorus 3.4, Albumin 2.7 L Micro: Microbiology 12/04/23 07:00 Sputum, Expectorated/Coughed Gram Stain - Final 12/03/23 17:06 Urine Catheter - Catheter Urine Culture - Preliminary Culture exhibits no growth. 12/03/23 22:30 Mucosa - Nasopharyngeal Respiratory Panel (PCR) - Final 12/03/23 17:05 Urine Catheter - Catheter Legionella Antigen - Final 12/03/23 17:05 Urine Catheter - Catheter Streptococcus pneumoniae Antigen (M- Final Physical Exam Const alert and no apparent distress Constitutional Narrative: Sitting in bedside recliner. General Appearance: cooperative and frail HEENT normocephalic and head/scalp atraumatic Eyes PERRL, EOMs intact bilaterally and conjunctivae normal Neck supple General: trachea midline Chest inspection of chest normal Resp normal respiratory effort Auscultation: diminished lung sounds; Negative for rales, rhonchi or wheezes Cardio regular rate and regular rhythm GI normal to inspection, nondistended, normoactive bowel sounds Extremity no clubbing, cyanosis or edema Skin no rashes or lesions noted Neuro CN's II-XII intact bilaterally and no focal motor deficits Psych Mood & Affect: flat affect Charges/Coding Visit Charges Inpatient E&M: 23494 Subs Hosp L2 12/05/23 1209 <Electronically signed by Sammy Ferrari DO> Cosigner Signature (if applicable): CC: ~ Signed [facility] Work Phone: 1(413) 131-263302-21-2024 Progress note Author Trinidadsamir Alarcon [facility] December 04, 2023 3:53pm Note Date/Time December 04, 2023 2:15pm [facility] Medical Records Department [address] [place] [address] Progress Note 12/04/23 1411 MR#: [id number] Acct: [id number] Name: ELIGIO MCCABE Rep #:[id number] : 1950 73 From: Trinidad Alarcon MD PCP: Dr. Shalini Ferrari, DO Status:AD M IN Location: ICU ICU03-1 Subjective Subjective Patient seen and examined. He was admitted with a complaint of abdominal discomfort and decreased urine output. He is being managed for NELSON with hyperkalemia due to urine retention. He had no complaints today. He had Rocha catheter inserted which drained 2.5 L of fluid immediately. Systems otherwise negative. Hyperkalemia has resolved, and Cr has trended down also. Objective Data Objective Data Vital Signs: Vital Signs Temp Pulse Resp BP Pulse Ox O2 Del Method O2 Flow Rate 99 F 79 18 117/66 96 Nasal Cannula 2 12/04/23 14:00 12/04/23 14:00 12/04/23 14:00 12/04/23 14:00 12/04/23 14:00 12/04/23 14:00 12/04/23 14:00 Oxygen Flow Rate (L/min) 2 Oxygen Delivery Method Nasal Cannula Weight: 135 lb 2.294 oz Body Mass Index (BMI) 18.3 Intake & Output: Intake and Output for Last 24 Hours 12/02/23 12/03/23 12/04/23 23:59 23:59 23:59 Intake Total 1030 / 1030 3732.91 / 3732.91 Output Total 3100 / 3100 2049 / 2049 Balance -2069 / -2069 1682.91 / 1682.91 Lab / Micro Data 12/04/23 09:50 12/04/23 04:40 Labs: Laboratory Results - last 24 hr 12/03/23 16:39: WBC 11.9 H, RBC 2.92 L, Hgb 9.5 L, Hct 30.0 L, MCV 102.7 H, MCH 32.5 H, MCHC 31.7 L, RDW Std Deviation 54.7 H, RDW Coeff of Issa 14.6, Plt Count 339, MPV 10.7, Immature Gran % (Auto) 0.400, Neut % (Auto) 81.7 H, Lymph % (Auto) 6.4 L, Faulkner % (Auto) 7.0, Eos % (Auto) 3.6, Baso % (Auto) 0.9, Absolute Neuts (auto) 9.7 H, Absolute Lymphs (auto) 0.76 L, Nucleated RBC % 0, Differential Comment SCANNED, Sodium 134 L, Potassium 8.4 H*, Chloride 105, Carbon Dioxide 19.0 L, Anion Gap 10, BUN 102 H*, Creatinine 8.75 H*, Estim CreatClear Calc 7.23, Est GFR (MDRD) Af Amer 8 L, Est GFR (MDRD) Non-Af 6 L, BUN/Creatinine Ratio 11.7, Glucose 104, Calcium 11.6 H, Total Bilirubin 0.20, AST 24, ALT 25, Alkaline Phosphatase 81, Total Creatine Kinase 112, Total Protein 8.0, Albumin 3.3, Globulin 4.7 H, Albumin/Globulin Ratio 0.7 L 12/03/23 17:05: Urine Color Yellow, Urine Clarity Clear, Urine pH 6.5, Ur Specific [place] 1.010, Urine Protein 30 H, Urine Glucose (UA) Normal, Urine Ketones Negative, Urine Occult Blood 150 H, Urine Nitrite Negative, Urine Bilirubin Negative, Urine Urobilinogen Normal, Ur Leukocyte Esterase 25 H, UrineRBC 25-50 SEEN, Urine WBC 0-5 SEEN, Ur Squamous Epith Cells 0 SEEN, Urine Bacteria 0 SEEN, Urine Mucus 0 SEEN, Ur Random Sodium 66, Urine Creatinine 48.80 12/03/23 19:44: Sodium 137, Potassium 8.0 H*, Chloride 108 H, Carbon Dioxide 21.0, Anion Gap 8, BUN 98 H, Creatinine 8.11 H*, Estim Creat Clear Calc 7.80, Est GFR (MDRD) Af Amer 8 L, Est GFR (MDRD) Non-Af 7 L, BUN/Creatinine Ratio 12.1, Glucose 100, Calcium 11.2 H, Phosphorus 5.8 H, Magnesium 2.4, Procalcitonin 0.14 H 12/03/23 21:40: Sodium 139, Potassium 7.5 H*, Chloride 109 H, Carbon Dioxide 22.0, Anion Gap 8, BUN 91 H, Creatinine 7.54 H*, Estim Creat Clear Calc 7.50, Est GFR (MDRD) Af Amer 9 L, Est GFR (MDRD) Non-Af 8 L, BUN/Creatinine Ratio 12.1, Glucose 57 L, Calcium 11.8 H, Vitamin B12 1383 H, Folate 52.70, MRSA (PCR)Negative 12/03/23 23:18: POC Glucose 80 12/04/23 00:53: Sodium Cancelled, Potassium Cancelled, Chloride Cancelled, Carbon Dioxide Cancelled, Anion Gap Cancelled, BUN Cancelled, Creatinine Cancelled, Estim Creat Clear Calc Cancelled, Est GFR (MDRD) Af Amer Cancelled, Est GFR (MDRD) Non-Af Cancelled, BUN/Creatinine Ratio Cancelled, Glucose Cancelled, Calcium Cancelled 12/04/23 01:25: Sodium 140, Potassium 6.0 H*, Chloride 107, Carbon Dioxide 24.0,Anion Gap 9, BUN 88 H, Creatinine 7.23 H, Estim Creat Clear Calc 7.83, Est GFR (MDRD) Af Amer 10 L, Est GFR (MDRD) Non-Af 8 L, BUN/Creatinine Ratio 12.2, Glucose 91, Calcium 11.9 H 12/04/23 04:40: WBC 8.2, RBC 2.34 L, Hgb 7.6 L, Hct 23.3 L, MCV 99.6 H, MCH 32.5H, MCHC 32.6, RDW Std Deviation 52.3 H, RDW Coeff of Issa 14.6, Plt Count 277, MPV 9.3, Immature Gran % (Auto) 0.500, Neut % (Auto) 70.1 H, Lymph % (Auto) 12.1L, Faulkner % (Auto) 10.8 H, Eos % (Auto) 5.8 H, Baso % (Auto) 0.7, Absolute Neuts (auto) 5.8, Absolute Lymphs (auto) 1.00, Nucleated RBC % 0, Sodium 141, Potassium 5.1, Chloride 106, Carbon Dioxide 28.0, Anion Gap 7, BUN 80 H, Creatinine 6.00H, Estim Creat Clear Calc 9.43, Est GFR (MDRD) Af Amer 12 L, Est GFR (MDRD) Non-Af 10 L, BUN/Creatinine Ratio 13.3, Glucose 58 L, Calcium 10.5 H, Iron 40 L, TIBC 180 L, Iron Saturation 22.2, Ferritin 137, Total Bilirubin 0.30, AST 14 L, ALT 20, Alkaline Phosphatase 61, Total Protein 6.3 L, Albumin 2.6 L, Globulin 3.7, Albumin/Globulin Ratio 0.7 L 12/04/23 06:09: POC Glucose 63 L 12/04/23 06:51: POC Glucose 67 L 12/04/23 09:50: Hgb 8.4 L, Hct 25.8 L 12/04/23 11:21: POC Glucose 113 H 12/04/23 11:25: PTH Intact 30.1 Micro: Microbiology 12/04/23 07:00 Sputum, Expectorated/Coughed Gram Stain - Final 12/03/23 17:06 Urine Catheter - Catheter Urine Culture - Preliminary Culture exhibits no growth. 12/03/23 22:30 Mucosa - Nasopharyngeal Respiratory Panel (PCR) - Final 12/03/23 17:05 Urine Catheter - Catheter Legionella Antigen - Final 12/03/23 17:05 Urine Catheter - Catheter Streptococcus pneumoniae Antigen (M- Final Radiography Diagnostic Testing: Radiology Impression Abdomen/Pelvis CT 12/03/23 17:03 IMPRESSION: Left lower lobe airspace disease. Bilateral nonobstructing nephroliths. Possible mild left hydronephrosis with no definite radiodense ureterolith. Electronically Signed: Basim Aguilar MD at 18:08 EST , Physical Exam Const alert and oriented x3 Constitutional Narrative: frail, elderly HEENT normocephalic and head/scalp atraumatic Mouth: dry mucous membranes Eyes PERRL and EOMs intact bilaterally Neck no lymphadenopathy and supple Lymph Lymphatic: no lymphadenopathy noted and no lymphedema noted Resp Resp Narrative: mildly diminished breath sounds bibasally, no wheezes or crackles.On 2L of oxygen by nasal canula Cardio regular rate, regular rhythm, S1 normal heart sound, S2 normal heart sound and no murmurs GI normal to inspection, nondistended, normoactive bowel sounds, soft to palpation,non-tender and non-distended Extremity normal capillary refill, no clubbing, cyanosis or edema and no calf tenderness Skin General Skin Exam: no breakdown Neuro CN's II-XII intact bilaterally and no focal motor deficits Motor Exam: general weakness Psych thought process normal and cooperative Appearance: appropriate Assessment & Plan Assessment/Plan (1) NELSON (acute kidney injury): PLAN: #NELSON with hyperkalemia * Creatinine was 8.75 on admission with baseline creatinine around 0.9-1. Cr now down to 6. Potassiium is 5.1 * CT abdomen and pelvis showed evidence of urine retention. He had a Rocha catheter inserted and had 2.5 L of urine drained. Rocha catheter still in situ. * Potassium was also markedly elevated. He was started on bicarb drip. Also on Flomax. * Rocha catheter remains in situ. Potassium has trended down with multiple doses of Kayexalate. * Nephrology on board. #COPD in the setting of chronic respiratory failure * On 2 L of oxygen. * Breathing treatments bronchodilators. Titrate oxygen to maintain saturation above 90%. Not in exacerbation. #Left lower lobe consolidation due to presumptive pneumonia * Chest x-ray showed left lower lobe and lingula consolidations. Patient denies any cough and is on his baseline 2 L of oxygen. Started on IV ceftriaxone and azithromycin empirically. * Urine for strep and Legionella negative. Sputum cultures pending. * #Hyperkalemia: Likely due to NELSON. Nephrology on board. PTH and SPEP ordered. Trended down with hydration. Will monitor. #Hypertension: Lisinopril held due to NELSON and hyperkalemia. On atenolol. IV hydralazine as needed. #Hyperlipidemia: On statin #GERD: On PPI continue DVT prophylaxis: Heparin Charges/Coding Visit Charges Inpatient E&M: 16381 Subs Hosp L3 12/04/23 6293 <Electronically signed by Trinidad Alarcon MD> Trinidad Alarcon MD Cosigner Signature (if applicable): CC: ~ Signed [facility] Work Phone: 1(118) 882-108102-21-2024 Consult note Author Suzanne Ferrer [facility] December 04, 2023 3:09pm Note Date/Time December 04, 2023 10:15am [facility] Medical Records Department [address] [place] [address] Consultation - Nephrology 12/04/23 1001 MR#: [id number] Acct: [id number] Name: ELIGIO MCCABE Rep #:[id number] : 1950 73 From: Jacey ROSE PCP: Dr. Shalini Ferrari, DO Status:AD M IN Location: ICU ICU03-1 Documented by User: ROSE Mathias 12/04/23 10:46 Assessment & Plan Assessment/Plan (1) NELSON (acute kidney injury): PLAN: Plan This is a 73-year-old male with past medical history significant for COPD with chronic hypoxic respiratory failure, former tobacco use, hypertension, hyperlipidemia, GERD with history of GI bleed, history of kidney stones, chronicanemia who presented to the emergency room yesterday with complaints of inability to urinate, confusion, Rocha placed in the emergency room with immediate return of 2 L of urine into bag. Lab work in emergency room showed creatinine of 8.75, BUN 102, calcium 11.6, potassium 8.4 (initial potassium hemolyzed repeat potassium 8.0), patient was admitted to ICU for further evaluation and treatment. Patient received multiple doses Kayexalate, bicarb, insulin, calcium gluconate, D5 and started on bicarb drip. Nephrology consulted in view of NELSON and hyperkalemia. In reviewing past creatinine trends patient has normal baseline creatinine up until November 2023 however he did have lab work on November 20, 2023 which showed creatinine of 1.3. Non-contrast CT A/P showed b/l nonobstructing nephroliths, possible mild left hydro. Likely NELSON secondary to obstruction. Serum creatinine is trending down. Patient has good urine output. There is question of cognitive impairment in Mr. Mccabe thereforedifficult to assess if patient has component of uremia or if this is baseline mentation. However there is no acute indication for renal placement therapy, potassium has normalized with medications and bicarb drip and improving of kidney function. Bicarb is normal. Patient does appear to be mildly hypovolemic and will continue IV fluids for today. Serum calcium 11.6 on admission,patient has normal baseline serum calcium trends. Phosphorus was 5.8. Serum calcium is trending down. Will check SPEP, PTH levels. Recommend continue holding lisinopril. Blood pressures acceptable. Further orders forthcoming as hospitalization evolves, thank you for allowing us to participate in the care ofMr. Mccabe. HPI Consult Data Date of Consult: 12/04/23 HPI Narrative HPI Narrative: ELIGIO MCCABE, is a 73 M with past medical history significant for COPD with chronic hypoxic respiratory failure, former tobacco use, hypertension, hyperlipidemia, GERD with history of GI bleed, history of kidney stones, chronicanemia who was brought to the emergency room yesterday for evaluation of confusion, inability to urinate and suprapubic discomfort. Rocha was placed in the emergency room with immediate return of 2 L of urine. Further workup the emergency room showed elevated white count, hemoglobin 9.5, creatinine 8.75, [id number] and potassium 8.4 (initial potassium was noted to be hemolyzed). Repeat potassium 8.0. Patient was admitted for further evaluation and treatment. Nephrology consulted in view of elevated creatinine and hyperkalemia. Patient is alert to name however having difficult time recalling recent events; most information is gathered from the chart. Repeat labs this morning potassium is 5.1, creatinine 6.0 and BUN is 80. [facility] Medical History Arthritis Arthritis Back pain Cardiology follow-up encounter Chronic pain Community acquired pneumonia COPD (chronic obstructive pulmonary disease) Depression Difficulty chewing Drop foot gait Forgetfulness Former smoker GERD (gastroesophageal reflux disease) High cholesterol History of echocardiogram History of GI bleed History of hiatal hernia History of stomach ulcers History of stress test Hyperlipidemia Hypertension IBS (irritable bowel syndrome) Neuropathy On home oxygen therapy Overdose Pneumonia Severe protein-calorie malnutrition Shortness of breath on exertion Syncope Wears dentures Wears glasses Home Medications multivitamin 1 tab PO DAILY supplement 07/01/21 [History Last Taken 10/08/23] pantoprazole 40 mg tablet,delayed release 40 mg PO QAM #90 tabs 10/29/22 [Rx Last Taken 10/09/23] glucosamine-chondroitin 250 mg-200 mg tablet (Osteo Bi-Flex) 2 tab PO DAILY 01/12/23 [History Last Taken 10/08/23] pravastatin 40 mg tablet 40 mg PO QHS #90 tabs 03/13/23 [Rx Last Taken 10/08/23] atenolol 50 mg tablet 50 mg PO DAILY #90 tabs 03/26/23 [Rx Last Taken 10/09/23] docusate sodium 100 mg capsule (Colace) 100 mg PO DAILY Constipation 08/01/23 [History Last Taken 10/08/23] fluticasone propionate 50 mcg/actuation nasal spray,suspension 2 spray intranasal DAILY #16 grams 08/20/23 [Rx Last Taken 10/08/23] albuterol sulfate 90 mcg/actuation aerosol inhaler See Rx Instructions .Route .COMPLEX #8.5 grams 10/22/23 [Rx Last Taken Unknown] carboxymethylcellulose sodium 0.5 % eye drops (Refresh Tears) 1 drp ophthalmic (eye) 4-6XD PRN dry eye(s) 10/22/23 [History Last Taken Unknown] ipratropium 0.5 mg-albuterol 3 mg (2.5 mg base)/3 mL nebulization soln 3 ml inhalation BID shortness of breath or wheezing #180 mL 10/22/23 [Rx Last Taken Unknown] rollator walker with seat #1 ea 11/05/23 [Rx Last Taken Unknown] lisinopril 10 mg tablet 10 mg PO 1600 #90 tabs 11/06/23 [Rx Last Taken Unknown] trazodone 100 mg tablet 100 mg PO QHS #90 tabs 11/06/23 [Rx Last Taken Unknown] hydrocodone 10 mg-acetaminophen 325 mg tablet 1 tab PO TID 1 month #90 tabs 11/20/23 [Rx Last Taken Unknown] Allergy/AdvReac Type Severity Reaction Status Date / Time aspirin Allergy Severe bleeding Verified 11/20/23 11:17 Family History Mother Myocardial infarction, Onset Age: 49 Depression Father Hypertension CVA (cerebral vascular accident), Onset Age: 49 Sister Thyroid disorder Uncle ulcers Surgical History History of bronchoscopy History of esophagogastroduodenoscopy (EGD) History of thoracic surgery Hx of colonoscopy Social History household members: spouse and significant other Smoking Status: Former smoker quit date: 07/14/21 alcohol intake: never substance use type: does not use what type of physical activity do you participate in: other details: yard work,house work ROS ROS Narrative As in HPI and past medical history Physical Exam Narrative Alert to name and place. No apparent distress S1, S2, RRR Lung sounds clear anteriorly and posteriorly. No wheezes, rhonchi rales Abdomen soft, nontender No edema Indwelling Rocha, pinkish to red-colored urine Lab / Micro Data 12/04/23 14:20 12/04/23 04:40 Labs: Laboratory Results - last 24 hr 12/03/23 16:39: WBC 11.9 H, RBC 2.92 L, Hgb 9.5 L, Hct 30.0 L, MCV 102.7 H, MCH 32.5 H, MCHC 31.7 L, RDW Std Deviation 54.7 H, RDW Coeff of Issa 14.6, Plt Count 339, MPV 10.7, Immature Gran % (Auto) 0.400, Neut % (Auto) 81.7 H, Lymph % (Auto) 6.4 L, Faulkner % (Auto) 7.0, Eos % (Auto) 3.6, Baso % (Auto) 0.9, Absolute Neuts (auto) 9.7 H, Absolute Lymphs (auto) 0.76 L, Nucleated RBC % 0, Differential Comment SCANNED, Sodium 134 L, Potassium 8.4 H*, Chloride 105, Carbon Dioxide 19.0 L, Anion Gap 10, BUN 102 H*, Creatinine 8.75 H*, Estim CreatClear Calc 7.23, Est GFR (MDRD) Af Amer 8 L, Est GFR (MDRD) Non-Af 6 L, BUN/Creatinine Ratio 11.7, Glucose 104, Calcium 11.6 H, Total Bilirubin 0.20, AST 24, ALT 25, Alkaline Phosphatase 81, Total Creatine Kinase 112, Total Protein 8.0, Albumin 3.3, Globulin 4.7 H, Albumin/Globulin Ratio 0.7 L 12/03/23 17:05: Urine Color Yellow, Urine Clarity Clear, Urine pH 6.5, Ur Specific [place] 1.010, Urine Protein 30 H, Urine Glucose (UA) Normal, Urine Ketones Negative, Urine Occult Blood 150 H, Urine Nitrite Negative, Urine Bilirubin Negative, Urine Urobilinogen Normal, Ur Leukocyte Esterase 25 H, UrineRBC 25-50 SEEN, Urine WBC 0-5 SEEN, Ur Squamous Epith Cells 0 SEEN, Urine Bacteria 0 SEEN, Urine Mucus 0 SEEN, Ur Random Sodium 66, Urine Creatinine 48.80 12/03/23 19:44: Sodium 137, Potassium 8.0 H*, Chloride 108 H, Carbon Dioxide 21.0, Anion Gap 8, BUN 98 H, Creatinine 8.11 H*, Estim Creat Clear Calc 7.80, Est GFR (MDRD) Af Amer 8 L, Est GFR (MDRD) Non-Af 7 L, BUN/Creatinine Ratio 12.1, Glucose 100, Calcium 11.2 H, Phosphorus 5.8 H, Magnesium 2.4, Procalcitonin 0.14 H 12/03/23 21:40: Sodium 139, Potassium 7.5 H*, Chloride 109 H, Carbon Dioxide 22.0, Anion Gap 8, BUN 91 H, Creatinine 7.54 H*, Estim Creat Clear Calc 7.50, Est GFR (MDRD) Af Amer 9 L, Est GFR (MDRD) Non-Af 8 L, BUN/Creatinine Ratio 12.1, Glucose 57 L, Calcium 11.8 H, Vitamin B12 1383 H, Folate 52.70, MRSA (PCR)Negative 12/03/23 23:18: POC Glucose 80 12/04/23 00:53: Sodium Cancelled, Potassium Cancelled, Chloride Cancelled, Carbon Dioxide Cancelled, Anion Gap Cancelled, BUN Cancelled, Creatinine Cancelled, Estim Creat Clear Calc Cancelled, Est GFR (MDRD) Af Amer Cancelled, Est GFR (MDRD) Non-Af Cancelled, BUN/Creatinine Ratio Cancelled, Glucose Cancelled, Calcium Cancelled 12/04/23 01:25: Sodium 140, Potassium 6.0 H*, Chloride 107, Carbon Dioxide 24.0,Anion Gap 9, BUN 88 H, Creatinine 7.23 H, Estim Creat Clear Calc 7.83, Est GFR (MDRD) Af Amer 10 L, Est GFR (MDRD) Non-Af 8 L, BUN/Creatinine Ratio 12.2, Glucose 91, Calcium 11.9 H 12/04/23 04:40: WBC 8.2, RBC 2.34 L, Hgb 7.6 L, Hct 23.3 L, MCV 99.6 H, MCH 32.5H, MCHC 32.6, RDW Std Deviation 52.3 H, RDW Coeff of Issa 14.6, Plt Count 277, MPV 9.3, Immature Gran % (Auto) 0.500, Neut % (Auto) 70.1 H, Lymph % (Auto) 12.1L, Faulkner % (Auto) 10.8 H, Eos % (Auto) 5.8 H, Baso % (Auto) 0.7, Absolute Neuts (auto) 5.8, Absolute Lymphs (auto) 1.00, Nucleated RBC % 0, Sodium 141, Potassium 5.1, Chloride 106, Carbon Dioxide 28.0, Anion Gap 7, BUN 80 H, Creatinine 6.00 H, Estim Creat Clear Calc 9.43, Est GFR (MDRD) Af Amer 12 L, EstGFR (MDRD) Non-Af 10 L, BUN/Creatinine Ratio 13.3, Glucose 58 L, Calcium 10.5 H,Iron 40 L, TIBC 180 L, Iron Saturation 22.2, Ferritin 137, Total Bilirubin 0.30,AST 14 L, ALT 20, Alkaline Phosphatase 61, Total Protein 6.3 L, Albumin 2.6 L, Globulin 3.7, Albumin/Globulin Ratio 0.7 L 12/04/23 06:09: POC Glucose 63 L Micro: Microbiology 12/03/23 22:30 Mucosa - Nasopharyngeal Respiratory Panel (PCR) - Final 12/03/23 17:05 Urine Catheter - Catheter Legionella Antigen - Final 12/03/23 17:05 Urine Catheter - Catheter Streptococcus pneumoniae Antigen (M- Final Imaging Radiology Impression Abdomen/Pelvis CT 12/03/23 17:03 IMPRESSION: Left lower lobe airspace disease. Bilateral nonobstructing nephroliths. Possible mild left hydronephrosis with no definite radiodense ureterolith. Electronically Signed: Basim Aguilar MD at 18:08 EST , Documented by User: Dr. Suzanne Ferrer MD 12/04/23 14:56 Assessment & Plan Assessment/Plan (1) NELSON (acute kidney injury): PLAN: Plan This is a 73-year-old male with past medical history significant for COPD with chronic hypoxic respiratory failure, former tobacco use, hypertension, hyperlipidemia, GERD with history of GI bleed, history of kidney stones, chronic anemia who presented to the emergency room yesterday with complaints of inability to urinate, confusion, Rocha placed in the emergency room with immediate return of 2 L of urine into bag. Lab work in emergency room showed creatinine of 8.75, BUN 102, calcium 11.6, potassium 8.4 (initial potassium hemolyzed repeat potassium 8.0), patient was admitted to ICU for further evaluation and treatment. Patient received multiple doses Kayexalate, bicarb, insulin, calcium gluconate, D5 and started on bicarb drip. Nephrology consulted in view of NELSON and hyperkalemia. In reviewing past creatinine trends patient has normal baseline creatinine up until November 2023 however he did have lab work on November 20, 2023 which showed creatinine of 1.3. Non-contrast CT A/P showed b/l nonobstructing nephroliths, possible mild left hydro. Likely NELSON secondary to obstruction. Serum creatinine is trending down. Patient has good urine output. There is question of cognitive impairment in Mr. Mccabe thereforedifficult to assess if patient has component of uremia or if this is baseline mentation. However there is no acute indication for renal placement therapy, potassium has normalized with medications and bicarb drip and improving of kidney function. Bicarb is normal. Patient does appear to be mildly hypovolemic and will continue IV fluids for today. Serum calcium 11.6 on admission, patient has normal baseline serum calcium trends. Phosphorus was 5.8. Serum calcium is trending down. Will check SPEP, PTH levels. Recommend continue holding lisinopril. Blood pressures acceptable. Further orders forthcoming as hospitalization evolves, thank you for allowing us to participatein the care of Mr. Mccabe. Seen and examined independently. New onset renal failure compared to labs from last year. Likely some component of obstruction. CT abdomen without any residual hydronephrosis. Creatinine is rapidly improving. Hypercalcemia. New onset compared to labs from last year. He does look cachectic. We will send a serum protein electrophoresis, PTH. Further workup depending on the labs. Hyperkalemia. Improved. DC bicarbonate drip, start half-normal saline. HPI Consult Data Date of Consult: 12/04/23 [facility] Medical History Arthritis Arthritis Back pain Cardiology follow-up encounter Chronic pain Community acquired pneumonia COPD (chronic obstructive pulmonary disease) Depression Difficulty chewing Drop foot gait Forgetfulness Former smoker GERD (gastroesophageal reflux disease) High cholesterol History of echocardiogram History of GI bleed History of hiatal hernia History of stomach ulcers History of stress test Hyperlipidemia Hypertension IBS (irritable bowel syndrome) Neuropathy On home oxygen therapy Overdose Pneumonia Severe protein-calorie malnutrition Shortness of breath on exertion Syncope Wears dentures Wears glasses Home Medications multivitamin 1 tab PO DAILY supplement 07/01/21 [History Last Taken 10/08/23] pantoprazole 40 mg tablet,delayed release 40 mg PO QAM #90 tabs 10/29/22 [Rx Last Taken 10/09/23] glucosamine-chondroitin 250 mg-200 mg tablet (Osteo Bi-Flex) 2 tab PO DAILY 01/12/23 [History Last Taken 10/08/23] pravastatin 40 mg tablet 40 mg PO QHS #90 tabs 03/13/23 [Rx Last Taken 10/08/23] atenolol 50 mg tablet 50 mg PO DAILY #90 tabs 03/26/23 [Rx Last Taken 10/09/23] docusate sodium 100 mg capsule (Colace) 100 mg PO DAILY Constipation 08/01/23 [History Last Taken 10/08/23] fluticasone propionate 50 mcg/actuation nasal spray,suspension 2 spray intranasal DAILY #16 grams 08/20/23 [Rx Last Taken 10/08/23] albuterol sulfate 90 mcg/actuation aerosol inhaler See Rx Instructions .Route .COMPLEX #8.5 grams 10/22/23 [Rx Last Taken Unknown] carboxymethylcellulose sodium 0.5 % eye drops (Refresh Tears) 1 drp ophthalmic (eye) 4-6XD PRN dry eye(s) 10/22/23 [History Last Taken Unknown] ipratropium 0.5 mg-albuterol 3 mg (2.5 mg base)/3 mL nebulization soln 3 ml inhalation BID shortness of breath or wheezing #180 mL 10/22/23 [Rx Last Taken Unknown] rollator walker with seat #1 ea 11/05/23 [Rx Last Taken Unknown] lisinopril 10 mg tablet 10 mg PO 1600 #90 tabs 11/06/23 [Rx Last Taken Unknown] trazodone 100 mg tablet 100 mg PO QHS #90 tabs 11/06/23 [Rx Last Taken Unknown] hydrocodone 10 mg-acetaminophen 325 mg tablet 1 tab PO TID 1 month #90 tabs 11/20/23 [Rx Last Taken Unknown] Allergy/AdvReac Type Severity Reaction Status Date / Time aspirin Allergy Severe bleeding Verified 11/20/23 11:17 Family History Mother Myocardial infarction, Onset Age: 49 Depression Father Hypertension CVA (cerebral vascular accident), Onset Age: 49 Sister Thyroid disorder Uncle ulcers Surgical History History of bronchoscopy History of esophagogastroduodenoscopy (EGD) History of thoracic surgery Hx of colonoscopy Social History household members: spouse and significant other Smoking Status: Former smoker quit date: 07/14/21 alcohol intake: never substance use type: does not use what type of physical activity do you participate in: other details: yard work,house work Lab / Micro Data 12/04/23 14:20 12/04/23 04:40 12/04/23 1046 <Electronically signed by Jacey ROSE> Cosigner Signature (if applicable): 12/04/23 1505 <Electronically signed by Suzanne Ferrer MD> CC: Dr. Mariann Clancy MD; Dr. Sammy Ferrari DO; Dr. Shalini Ferrari DO; Dr. Suzanne Ferrer MD~ Signed [facility] Work Phone: 1(564) 574-627202-21-2024 Consult note Author Sammy Ferrari [facility] December 04, 2023 1:05pm Note Date/Time December 04, 2023 10:07am [facility] Medical Records Department [address] [place] [id number] Consultation - International Operations Manager 12/04/23 0954 MR#: [id number] Acct: [id number] Name: ELIGIO MCCABE CHAPIN Rep #:[id number] : 1950 73 From: Sammy Ferrari DO PCP: Dr. Shalini Ferrari DO Status:AD M IN Location: ICU ICU03-1 Assessment & Plan Assessment/Plan (1) NELSON (acute kidney injury): PLAN: Plan RECOMMENDATIONS: 1. Continue sodium bicarb and infusion, pending evaluation by nephrology. 2. Continue empiric antibiotics. 3. Continue scheduled bronchodilators. 4. Supplemental oxygen to maintain saturations at or above 90%. 5. Send type and screen. Transfuse if hemoglobin drops below 7 g/dL. 6. Continue PPI therapy. IMPRESSIONS: 1. Acute kidney injury/hyperkalemia Likely multifactorial in etiology. Hyperkalemia has resolved with improving renal parameters with IV fluid resuscitation. Nephrology consultation is currently pending. Continue supportive care. 2. Metabolic encephalopathy Most likely secondary to presenting uremia. The patient is still somewhat confused, which I suspect will improve as his kidney function improves as well. 3. History of COPD with left lower lobe consolidation The patient is stable from a respiratory perspective. Plan to continue empiric antibiotics along with scheduled bronchodilators. Supplemental oxygen will be continued to maintain saturations at or above 90%. 4. Anemia The patient has known chronic anemia with a baseline hemoglobin in the 9 to 11 g/dL range. His hemoglobin has dropped to 7.6 g/dL this morning. Type and screen will be sent. Will continue to monitor H&H and transfuse if hemoglobin drops below 7 g/dL. In the interim, continue PPI therapy. If anemia worsens, gastroenterology consultation will be obtained. 5. History of tobacco dependency in remission/GERD/hypertension/hyperlipidemia Complicates care, management, recovery and prognosis. Continue home medicationsas indicated. This note was generated with [employer] dictation software. It may contain incorrectwords, spelling, and punctuation that were not noted in checking the note beforesigning. HPI Consult Data Date of Consult: 12/04/23 HPI Narrative Reason for Consultation: Acute kidney injury and hyperkalemia HPI Narrative: The patient is a 73-year-old male, with a history as outlined below, who presented to the emergency department via EMS on December 03 with abdominal discomfort, decreased urine output and confusion. The patient is familiar to [facility] the pulmonary medicine office due to a history of COPD and nicotine dependence, in remission. The patient's medical history is also significant forGERD, history of GI bleeding and chronic anemia. On presentation to the emergency department, the patient was noted to be afebrile hemodynamically stable. Initial laboratory evaluation revealed a whiteblood cell count of 12,000 with a hemoglobin of 9.5 g/dL. Chemistry profile wasnotable for a sodium of 134, potassium of 8.4, bicarbonate of 19 and creatinine of 8.75, with a BUN of 102. Urine analysis was largely unrevealing. Respiratory viral panel was negative. CT abdomen/pelvis demonstrated left lowerlobe airspace disease along with bilateral nonobstructing nephroliths and possible mid left hydronephrosis. The patient received supplemental IV fluid hydration with medical management of his hyperkalemia. He was subsequently admitted to the medical intensive care unit. Overnight, the patient has remained clinically stable. His hemoglobin has dropped to 7.6 g/dL this morning. His hyperkalemia has resolved. BUN and creatinine have improved to 80 and 6.0, respectively. Nephrology consultation is pending. [facility] Medical History Arthritis Arthritis Back pain Cardiology follow-up encounter Chronic pain Community acquired pneumonia COPD (chronic obstructive pulmonary disease) Depression Difficulty chewing Drop foot gait Forgetfulness Former smoker GERD (gastroesophageal reflux disease) High cholesterol History of echocardiogram History of GI bleed History of hiatal hernia History of stomach ulcers History of stress test Hyperlipidemia Hypertension IBS (irritable bowel syndrome) Neuropathy On home oxygen therapy Overdose Pneumonia Severe protein-calorie malnutrition Shortness of breath on exertion Syncope Wears dentures Wears glasses Home Medications multivitamin 1 tab PO DAILY supplement 07/01/21 [History Last Taken 10/08/23] pantoprazole 40 mg tablet,delayed release 40 mg PO QAM #90 tabs 10/29/22 [Rx Last Taken 10/09/23] glucosamine-chondroitin 250 mg-200 mg tablet (Osteo Bi-Flex) 2 tab PO DAILY 01/12/23 [History Last Taken 10/08/23] pravastatin 40 mg tablet 40 mg PO QHS #90 tabs 03/13/23 [Rx Last Taken 10/08/23] atenolol 50 mg tablet 50 mg PO DAILY #90 tabs 03/26/23 [Rx Last Taken 10/09/23] docusate sodium 100 mg capsule (Colace) 100 mg PO DAILY Constipation 08/01/23 [History Last Taken 10/08/23] fluticasone propionate 50 mcg/actuation nasal spray,suspension 2 spray intranasal DAILY #16 grams 08/20/23 [Rx Last Taken 10/08/23] albuterol sulfate 90 mcg/actuation aerosol inhaler See Rx Instructions .Route .COMPLEX #8.5 grams 10/22/23 [Rx Last Taken Unknown] carboxymethylcellulose sodium 0.5 % eye drops (Refresh Tears) 1 drp ophthalmic (eye) 4-6XD PRN dry eye(s) 10/22/23 [History Last Taken Unknown] ipratropium 0.5 mg-albuterol 3 mg (2.5 mg base)/3 mL nebulization soln 3 ml inhalation BID shortness of breath or wheezing #180 mL 10/22/23 [Rx Last Taken Unknown] rollator walker with seat #1 ea 11/05/23 [Rx Last Taken Unknown] lisinopril 10 mg tablet 10 mg PO 1600 #90 tabs 11/06/23 [Rx Last Taken Unknown] trazodone 100 mg tablet 100 mg PO QHS #90 tabs 11/06/23 [Rx Last Taken Unknown] hydrocodone 10 mg-acetaminophen 325 mg tablet 1 tab PO TID 1 month #90 tabs 11/20/23 [Rx Last Taken Unknown] Allergy/AdvReac Type Severity Reaction Status Date / Time aspirin Allergy Severe bleeding Verified 11/20/23 11:17 Family History Mother Myocardial infarction, Onset Age: 49 Depression Father Hypertension CVA (cerebral vascular accident), Onset Age: 49 Sister Thyroid disorder Uncle ulcers Surgical History History of bronchoscopy History of esophagogastroduodenoscopy (EGD) History of thoracic surgery Hx of colonoscopy Social History household members: spouse and significant other Smoking Status: Former smoker quit date: 07/14/21 alcohol intake: never substance use type: does not use what type of physical activity do you participate in: other details: yard work,house work ROS ROS Narrative 10 systems were reviewed with pertinent positives as noted in the HPI above. Physical Exam Const alert and no apparent distress Constitutional Narrative: Still somewhat confused and disoriented. Frail and cachectic in appearance. HEENT normocephalic and head/scalp atraumatic Eyes PERRL, EOMs intact bilaterally and conjunctivae normal Neck supple General: trachea midline Chest inspection of chest normal Resp normal respiratory effort Auscultation: diminished lung sounds; Negative for rales, rhonchi or wheezes Cardio regular rate and regular rhythm GI normal to inspection, nondistended, normoactive bowel sounds Extremity no clubbing, cyanosis or edema Skin no rashes or lesions noted Neuro CN's II-XII intact bilaterally and no focal motor deficits Psych Mood & Affect: flat affect Lab / Micro Data 12/04/23 09:50 12/04/23 04:40 Labs: Laboratory Results - last 24 hr 12/03/23 16:39: WBC 11.9 H, RBC 2.92 L, Hgb 9.5 L, Hct 30.0 L, MCV 102.7 H, MCH 32.5 H, MCHC 31.7 L, RDW Std Deviation 54.7 H, RDW Coeff of Issa 14.6, Plt Count 339, MPV 10.7, Immature Gran % (Auto) 0.400, Neut % (Auto) 81.7 H, Lymph % (Auto) 6.4 L, Faulkner % (Auto) 7.0, Eos % (Auto) 3.6, Baso % (Auto) 0.9, Absolute Neuts (auto) 9.7 H, Absolute Lymphs (auto) 0.76 L, Nucleated RBC % 0, Differential Comment SCANNED, Sodium 134 L, Potassium 8.4 H*, Chloride 105, Carbon Dioxide 19.0 L, Anion Gap 10, BUN 102 H*, Creatinine 8.75 H*, Estim CreatClear Calc 7.23, Est GFR (MDRD) Af Amer 8 L, Est GFR (MDRD) Non-Af 6 L, BUN/Creatinine Ratio 11.7, Glucose 104, Calcium 11.6 H, Total Bilirubin 0.20, AST 24, ALT 25, Alkaline Phosphatase 81, Total Creatine Kinase 112, Total Protein 8.0, Albumin 3.3, Globulin 4.7 H, Albumin/Globulin Ratio 0.7 L 12/03/23 17:05: Urine Color Yellow, Urine Clarity Clear, Urine pH 6.5, Ur Specific [place] 1.010, Urine Protein 30 H, Urine Glucose (UA) Normal, Urine Ketones Negative, Urine Occult Blood 150 H, Urine Nitrite Negative, Urine Bilirubin Negative, Urine Urobilinogen Normal, Ur Leukocyte Esterase 25 H, UrineRBC 25-50 SEEN, Urine WBC 0-5 SEEN, Ur Squamous Epith Cells 0 SEEN, Urine Bacteria 0 SEEN, Urine Mucus 0 SEEN, Ur Random Sodium 66, Urine Creatinine 48.80 12/03/23 19:44: Sodium 137, Potassium 8.0 H*, Chloride 108 H, Carbon Dioxide 21.0, Anion Gap 8, BUN 98 H, Creatinine 8.11 H*, Estim Creat Clear Calc 7.80, Est GFR (MDRD) Af Amer 8 L, Est GFR (MDRD) Non-Af 7 L, BUN/Creatinine Ratio 12.1, Glucose 100, Calcium 11.2 H, Phosphorus 5.8 H, Magnesium 2.4, Procalcitonin 0.14 H 12/03/23 21:40: Sodium 139, Potassium 7.5 H*, Chloride 109 H, Carbon Dioxide 22.0, Anion Gap 8, BUN 91 H, Creatinine 7.54 H*, Estim Creat Clear Calc 7.50, Est GFR (MDRD) Af Amer 9 L, Est GFR (MDRD) Non-Af 8 L, BUN/Creatinine Ratio 12.1, Glucose 57 L, Calcium 11.8 H, Vitamin B12 1383 H, Folate 52.70, MRSA (PCR) Negative 12/03/23 23:18: POC Glucose 80 12/04/23 00:53: Sodium Cancelled, Potassium Cancelled, Chloride Cancelled, Carbon Dioxide Cancelled, Anion Gap Cancelled, BUN Cancelled, Creatinine Cancelled, Estim Creat Clear Calc Cancelled, Est GFR (MDRD) Af Amer Cancelled, Est GFR (MDRD) Non-Af Cancelled, BUN/Creatinine Ratio Cancelled, Glucose Cancelled, Calcium Cancelled 12/04/23 01:25: Sodium 140, Potassium 6.0 H*, Chloride 107, Carbon Dioxide 24.0,Anion Gap 9, BUN 88 H, Creatinine 7.23 H, Estim Creat Clear Calc 7.83, Est GFR (MDRD) Af Amer 10 L, Est GFR (MDRD) Non-Af 8 L, BUN/Creatinine Ratio 12.2, Glucose 91, Calcium 11.9 H 12/04/23 04:40: WBC 8.2, RBC 2.34 L, Hgb 7.6 L, Hct 23.3 L, MCV 99.6 H, MCH 32.5H, MCHC 32.6, RDW Std Deviation 52.3 H, RDW Coeff of Issa 14.6, Plt Count 277, MPV 9.3, Immature Gran % (Auto) 0.500, Neut % (Auto) 70.1 H, Lymph % (Auto) 12.1L, Faulkner % (Auto) 10.8 H, Eos % (Auto) 5.8 H, Baso % (Auto) 0.7, Absolute Neuts (auto) 5.8, Absolute Lymphs (auto) 1.00, Nucleated RBC % 0, Sodium 141, Potassium 5.1, Chloride 106, Carbon Dioxide 28.0, Anion Gap 7, BUN 80 H, Creatinine 6.00 H, Estim Creat Clear Calc 9.43, Est GFR (MDRD) Af Amer 12 L, EstGFR (MDRD) Non-Af 10 L, BUN/Creatinine Ratio 13.3, Glucose 58 L, Calcium 10.5 H,Iron 40 L, TIBC 180 L, Iron Saturation 22.2, Ferritin 137, Total Bilirubin 0.30,AST 14 L, ALT 20, Alkaline Phosphatase 61, Total Protein 6.3 L, Albumin 2.6 L, Globulin 3.7, Albumin/Globulin Ratio 0.7 L 12/04/23 06:09: POC Glucose 63 L Micro: Microbiology 12/03/23 22:30 Mucosa - Nasopharyngeal Respiratory Panel (PCR) - Final 12/03/23 17:05 Urine Catheter - Catheter Legionella Antigen - Final 12/03/23 17:05 Urine Catheter - Catheter Streptococcus pneumoniae Antigen (M- Final Imaging Radiology Impression Abdomen/Pelvis CT 12/03/23 17:03 IMPRESSION: Left lower lobe airspace disease. Bilateral nonobstructing nephroliths. Possible mild left hydronephrosis with no definite radiodense ureterolith. Electronically Signed: Basim Aguilar MD at 18:08 EST , Charges/Coding Visit Charges Inpatient E&M: 80622 Init Hosp L3 12/04/23 1305 <Electronically signed by Sammy Ferrari DO> Cosigner Signature (if applicable): CC: Dr. Mariann Clancy MD; Dr. Sammy Ferrari DO; Dr. Shalini Ferrari DO; Dr. Suzanne Ferrer MD~ Signed [facility] Work Phone: [phone] 181-779802-21-2024 History and physical note Author Mariann Clancy [facility] December 04, 2023 6:37am Note Date/Time December 03, 2023 7:35pm [facility] Medical Records Department [address] [place] [address] H&P Exam - Hospitalist 12/03/231927 MR#: [id number] Acct: [id number] Name: ELIGIO MCCABE Rep #:[id number] : 1950 73 From: Mariann Clancy MD PCP: Dr. Shalini Ferrari, DO Status:AD M IN Location: ICU ICU03-1 HPI - General General Date of Admission: 12/03/23 Date of Service: 12/03/23 Chief Complaint: Confusion, suprapubic discomfort, decreased UOP. HPI Narrative The patient is a 73 y/o M w/ PMHx: Chronic cognitive impairment of unclear etiology, COPD w/ Chronic Hypoxic Respiratory Failure, Chronic neuropathy, Former tobacco use, GERD w/ Hx GI bleed, HTN, HLD, Chronic anemia who presents to the [facility] ED on 12/03/23 with history of inability to urinate for the last 48 hours although from report possibly dribbling over himself with significant suprapubic discomfort with no recent fever, chills, nausea or emesis but reported confusion and agitation potentially related to urinary retention prompting family to bring him in for evaluation. In the ED patient with significant urinary retention with Rocha catheter placed with 2 L urine output immediately noted. Patient in the emergency room cannot give any appropriate information about his recent status and is extremely confused although he is able to carry a conversation and is extremely irritable but clearly cannot give exact data. Workup in the ED included T98.1, heart 60, BP 177/104, respiratory rate 15, 90% on 3 L nasal cannula and for review of most recent records patient previously also been on 2.5 to 3 L nasal cannula, CBC with WBC 11.9, hemoglobin 9.5, MCV 102.7, platelet 339 with left shift and lymphopenia, CMP with sodium 134, potassium 8.4 noted to be slightly hemolyzed, carbon oxide 19, anion gap 10, BUN/creatinine 102/8.75, calcium 11.6, hepatic profile not marked appearing,total creatinine kinase 112, urinalysis with specific remedy 1.010, protein 30, ketone negative, occult blood 150, urine nitrite negative, leukocyte esterase 25with no obvious evidence of UTI, left lower lobe airspace disease, bilateral nonobstructing nephroliths, possible mild left hydronephrosis with no definite radiodense ureterolith. In the ED patient administered 1 L normal saline. Discussed presentation with ED physician and requested stat repeat BMP as well as immediate treatment of hyperkalemia per the order set protocol. [facility] Medical History Arthritis Arthritis Back pain Cardiology follow-up encounter Chronic pain Community acquired pneumonia COPD (chronic obstructive pulmonary disease) Depression Difficulty chewing Drop foot gait Forgetfulness Former smoker GERD (gastroesophageal reflux disease) High cholesterol History of echocardiogram History of GI bleed History of hiatal hernia History of stomach ulcers History of stress test Hyperlipidemia Hypertension IBS (irritable bowel syndrome) Neuropathy On home oxygen therapy Overdose Pneumonia Severe protein-calorie malnutrition Shortness of breath on exertion Syncope Wears dentures Wears glasses Home Medications multivitamin 1 tab PO DAILY supplement 07/01/21 [History Last Taken 10/08/23] pantoprazole 40 mg tablet,delayed release 40 mg PO QAM #90 tabs 10/29/22 [Rx Last Taken 10/09/23] glucosamine-chondroitin 250 mg-200 mg tablet (Osteo Bi-Flex) 2 tab PO DAILY 01/12/23 [History Last Taken 10/08/23] pravastatin 40 mg tablet 40 mg PO QHS #90 tabs 03/13/23 [Rx Last Taken 10/08/23] atenolol 50 mg tablet 50 mg PO DAILY #90 tabs 03/26/23 [Rx Last Taken 10/09/23] docusate sodium 100 mg capsule (Colace) 100 mg PO DAILY Constipation 08/01/23 [History Last Taken 10/08/23] fluticasone propionate 50 mcg/actuation nasal spray,suspension 2 spray intranasal DAILY #16 grams 08/20/23 [Rx Last Taken 10/08/23] albuterol sulfate 90 mcg/actuation aerosol inhaler See Rx Instructions .Route .COMPLEX #8.5 grams 10/22/23 [Rx Last Taken Unknown] carboxymethylcellulose sodium 0.5 % eye drops (Refresh Tears) 1 drp ophthalmic (eye) 4-6XD PRN dry eye(s) 10/22/23 [History Last Taken Unknown] ipratropium 0.5 mg-albuterol 3 mg (2.5 mg base)/3 mL nebulization soln 3 ml inhalation BID shortness of breath or wheezing #180 mL 10/22/23 [Rx Last Taken Unknown] rollator walker with seat #1 ea 11/05/23 [Rx Last Taken Unknown] lisinopril 10 mg tablet 10 mg PO 1600 #90 tabs 11/06/23 [Rx Last Taken Unknown] trazodone 100 mg tablet 100 mg PO QHS #90 tabs 11/06/23 [Rx Last Taken Unknown] hydrocodone 10 mg-acetaminophen 325 mg tablet 1 tab PO TID 1 month #90 tabs 11/20/23 [Rx Last Taken Unknown] Allergy/AdvReac Type Severity Reaction Status Date / Time aspirin Allergy Severe bleeding Verified 11/20/23 11:17 Family History Mother Myocardial infarction, Onset Age: 49 Depression Father Hypertension CVA (cerebral vascular accident), Onset Age: 49 Sister Thyroid disorder Uncle ulcers Surgical History History of bronchoscopy History of esophagogastroduodenoscopy (EGD) History of thoracic surgery Hx of colonoscopy Social History household members: spouse and significant other Smoking Status: Former smoker quit date: 07/14/21 alcohol intake: never substance use type: does not use what type of physical activity do you participate in: other details: yard work,house work ROS Review of Systems ROS Unobtainable: due to encephalopathy Vital Signs Vital Signs Vital Signs: 12/03/23 16:31 12/03/23 16:37 12/03/23 18:53 Temperature 98.1 F 98 F 97.8 F Temperature Source Temporal Temporal Temporal Pulse Rate 62 72 56 L Respiratory Rate 15 15 16 Blood Pressure 177/104 H 177/104 H 160/82 H Blood Pressure Mean 128 128 108 Pulse Ox 93 95 95 Oxygen Delivery Method Nasal Cannula Nasal Cannula Nasal Cannula Oxygen Flow Rate (L/min) 3 3 3 Weight Weight: 149 lb 14.629 oz Body Mass Index (BMI) 20.3 Physical Exam Narrative Physical Examination: General: Awake, alert, oriented to self but cannot give place, month, year, verypoor historian and suspect that he is confused given his current situation but also likely underlying chronic impairment as well, does follow commands, seated upright in the ED bed, able to have a discussion but again clearly confused. Skin: Normal color, normal turgor, no icterus, no cyanosis except occasional staged ecchymoses, abrasion. HEENT: AT/NC, EOMI, PERRLA, dry MM, no carotid bruits or JVD noted. Lungs: Diffusely diminished, greater bases, left greater than right, no evidenceof any distress, no rales, ronchi or wheezing. Heart: Mildly bradycardic with regular rhythm; no gallop, rub audible. Abdomen: Soft, thin habitus, NTTP except discomfort in the suprapubic region with palpation, ND, hyperactive BS, no HSM. Extremities: No cyanosis, clubbing, or edema, evidence of muscle wasting. Neurological: Patient awake, alert, oriented as noted, cognitive function suspect diminished with cognitive impairment baseline but do feel that patient likely is worse than usual given his acute presentation, pupils equally reactiveto light and accommodation, cranial nerves grossly normal, moving all 4 extremities, no focal deficits, strength severely globally decreased. Psychiatric: Affect appears mildly irritable, no acute evidence of depressive oranxiety feelings. Results Lab / Micro Data 12/03/23 16:39 12/03/23 16:39 Labs: Laboratory Results - last 24 hr 12/03/23 16:39: WBC 11.9 H, RBC 2.92 L, Hgb 9.5 L, Hct 30.0 L, MCV 102.7 H, MCH 32.5 H, MCHC 31.7 L, RDW Std Deviation 54.7 H, RDW Coeff of Issa 14.6, Plt Count 339, MPV 10.7, Immature Gran % (Auto) 0.400, Neut % (Auto) 81.7 H, Lymph % (Auto) 6.4 L, Faulkner % (Auto) 7.0, Eos % (Auto) 3.6, Baso % (Auto) 0.9, Absolute Neuts (auto) 9.7 H, Absolute Lymphs (auto) 0.76 L, Nucleated RBC % 0, Differential Comment SCANNED, Sodium 134 L, Potassium 8.4 H*, Chloride 105, Carbon Dioxide 19.0 L, Anion Gap 10, BUN 102 H*, Creatinine 8.75 H*, Estim CreatClear Calc 7.23, Est GFR (MDRD) Af Amer 8 L, Est GFR (MDRD) Non-Af 6 L, BUN/Creatinine Ratio 11.7, Glucose 104, Calcium 11.6 H, Total Bilirubin 0.20, AST 24, ALT 25, Alkaline Phosphatase 81, Total Creatine Kinase 112, Total Protein 8.0, Albumin 3.3, Globulin 4.7 H, Albumin/Globulin Ratio 0.7 L 12/03/23 17:05: Urine Color Yellow, Urine Clarity Clear, Urine pH 6.5, Ur Specific [place] 1.010, Urine Protein 30 H, Urine Glucose (UA) Normal, Urine Ketones Negative, Urine Occult Blood 150 H, Urine Nitrite Negative, Urine Bilirubin Negative, Urine Urobilinogen Normal, Ur Leukocyte Esterase 25 H, UrineRBC 25-50 SEEN, Urine WBC 0-5 SEEN, Ur Squamous Epith Cells 0 SEEN, Urine Bacteria 0 SEEN, Urine Mucus 0 SEEN Imaging Radiology Impression Abdomen/Pelvis CT 12/03/23 17:03 IMPRESSION: Left lower lobe airspace disease. Bilateral nonobstructing nephroliths. Possible mild left hydronephrosis with no definite radiodense ureterolith. Electronically Signed: Basim Aguilar MD at 18:08 EST Reading Location ID and State: [address] [place] [address] Tel , Service support , Assessment & Plan Assessment/Plan (1) NELSON (acute kidney injury): PLAN: Plan The patient is a 73 y/o M w/ PMHx: Chronic cognitive impairment of unclear etiology, COPD w/ Chronic Hypoxic Respiratory Failure, Chronic neuropathy, Former tobacco use, GERD w/ Hx GI bleed, HTN, HLD, Chronic anemia who presents to the [facility] ED on 12/03/23 with history of inability to urinate for the last 48 hours although from report possibly dribbling over himself with significant suprapubic discomfort with no recent fever, chills, nausea or emesis but reported confusion and agitation potentially related to urinary retention prompting family to bring him in for evaluation. #1. Acute kidney injury with acute urinary retention with bilateral nonobstructing nephroliths and a possible mild left hydronephrosis with no definitive radiodense ureterolith: Acute kidney injury secondary to urinary retention coupled with nephrotoxic regimen, will admit to the ICU given significant hyperkalemia although slighly hemolyzed but suspect still notably elevated, will request spare person involvement per protocol, as noted admission BUN/Cr 102/8.75, prior baseline creatinine noted to be primarily 0.9-1.0 although more recently 11/20/2023 1.31 thus we will continue to hold nephrotoxic medication, continue hydration/maintain on bicarb drip, continue Rocha catheter placement, add Flomax regimen, will additionally obtain FeNa assessment, will request nephrology involvement early given significant kidney injury noted to becautious especially as well as hyperkalemia concurrently noted. #2. Hyperkalemia, slightly hemolyzed: Presentation CMP with potassium 8.4, noted to be hemolyzed in part, will repeat stat BMP to assess appropriate level,discussed with ED and initiated on hyperkalemic treatments with planned ICU admission given concern, will repeat BMP serially as needed and continued hyperkalemic protocols if appropriate. #3. Incidentally noted left lower lobe and lingular consolidations, unclear specific etiology, questionable community-acquired pneumonia: Will maintain on chronic home oxygen supplementation, maintain on ATC duonebs, PRN albuterol, until further evaluation will maintain cautiously on IV Rocephin and azithromycin, HOB, IS parameters w/ pending sputum cultures, full respiratory viral panel, procalcitonin and urine antigens. If there is no obvious evidence that this is a bacterial infection we will de-escalate antibiotic therapy. MRSAscreen also requested. #4. Chronic COPD with allergic rhinitis with with chronic hypoxic respiratory failure: Will maintain on home oxygen supplementation, hold home regimen in interim transition to ATC duonebs, PRN albuterol, HOB, IS parameters. #5. Chronic macrocytic anemia: Admission hemoglobin 9.5, MCV 102.7, baseline previous hemoglobin noted 9.9 11/20/2023 however previous to this in 2022 hemoglobin ranged 9-12, encourage continued outpatient evaluation, vitamin B12 and folic acid level as well as iron panel requested. #6. Hypertension: Given presentation holding lisinopril, continue atenolol, as needed IV hydralazine. #7. Hyperlipidemia: We will continue patient on statin therapy. #8. Former tobacco usage: Encourage continued tobacco cessation. #9. GERD with history of GI bleed: We will continue patient home PPI. #10. Chronic insomnia: Given presentation we will temporally hold home trazodone regimen, resume once clinically appropriate. #11. Chart reported history of chronic cognitive impairment: Unclear exact extent or etiology, will continue cautiously monitor, maintain on fall precautions, PT/OT/case management consulted for discharge planning. #12. Chronic back pain with chronic neuropathy: Frequent positional changes encouraged, maintain on fall precautions, does take chronic hydrocodone regimen which will cautiously be continued to avoid withdrawal. #13. DVT prophylaxis: Heparin. #14. CODE status: Patient is unable to answer any healthcare power of fixed income manager or living will questions at this time. Discussed with patient and noted plan tocontinue and unverified full CODE STATUS with plan discussion with family once able to reach to verify. Charges/Coding Visit Charges Inpatient E&M: 34500 Init Hosp L3 12/03/232005 <Electronically signed by Mraiann Clancy MD> Cosigner Signature (if applicable): CC: Dr. Mariann Clancy MD; Dr. Shalini Ferrari, ~ Signed ADDENDUM by Dr. Mariann Clancy MD on 12/04/23 at 0636 Addendum AM Hgb dropped further to 7.6, will change to clears, transition to IV PPI, continue to cycle HH, add guiac request. 12/04/23 0636<Electronically signed by Mariann Clancy MD> Cosigner Signature (if applicable): cc: Dr. Mariann Clancy MD; Dr. Shalini Ferrari DO ~* Signed [facility] Work Phone: [phone]) 712-620302-20-2024 Discharge summary Author Hao Vega [facility] December 03, 2023 9:44pm Note Date/Time December 03, 2023 5:03pm [facility] Medical Records Department [address] [place] [address] Emergency Department Summary 12/03/23 MR#: [id number] Acct: [id number] Name: MCCABEELIGIO CHAPIN Rep #:[id number] : 1950 73 From: Hao Vega DO PCP: Dr. Shalini Ferrari, DO Status:AD M IN Location: ICU ICU03-1 HPI History of Present Illness Chief Complaint: Alt LOC Narrative Narrative: 70-year-old male presenting with what he calls confusion. When asked to describe this he states I am angry. He states I been urinating on myself all day and my bladder hurts. He states he does not have a history of this that he recalls. He has not a fever at home. He is not vomiting. He denies any injury. Patient states been a couple of days that he is urinated he can recall. [facility] Medical History Arthritis Arthritis Back pain Cardiology follow-up encounter Chronic pain Community acquired pneumonia COPD (chronic obstructive pulmonary disease) Depression Difficulty chewing Drop foot gait Forgetfulness Former smoker GERD (gastroesophageal reflux disease) High cholesterol History of echocardiogram History of GI bleed History of hiatal hernia History of stomach ulcers History of stress test Hyperlipidemia Hypertension IBS (irritable bowel syndrome) Neuropathy On home oxygen therapy Overdose Pneumonia Severe protein-calorie malnutrition Shortness of breath on exertion Syncope Wears dentures Wears glasses Home Medications multivitamin 1 tab PO DAILY supplement 07/01/21 [History Last Taken 10/08/23] pantoprazole 40 mg tablet,delayed release 40 mg PO QAM #90 tabs 10/29/22 [Rx Last Taken 10/09/23] glucosamine-chondroitin 250 mg-200 mg tablet (Osteo Bi-Flex) 2 tab PO DAILY 01/12/23 [History Last Taken 10/08/23] pravastatin 40 mg tablet 40 mg PO QHS #90 tabs 03/13/23 [Rx Last Taken 10/08/23] atenolol 50 mg tablet 50 mg PO DAILY #90 tabs 03/26/23 [Rx Last Taken 10/09/23] docusate sodium 100 mg capsule (Colace) 100 mg PO DAILY Constipation 08/01/23 [History Last Taken 10/08/23] fluticasone propionate 50 mcg/actuation nasal spray,suspension 2 spray intranasal DAILY #16 grams 08/20/23 [Rx Last Taken 10/08/23] albuterol sulfate 90 mcg/actuation aerosol inhaler See Rx Instructions .Route .COMPLEX #8.5 grams 10/22/23 [Rx Last Taken Unknown] carboxymethylcellulose sodium 0.5 % eye drops (Refresh Tears) 1 drp ophthalmic (eye) 4-6XD PRN dry eye(s) 10/22/23 [History Last Taken Unknown] ipratropium 0.5 mg-albuterol 3 mg (2.5 mg base)/3 mL nebulization soln 3 ml inhalation BID shortness of breath or wheezing #180 mL 10/22/23 [Rx Last Taken Unknown] rollator walker with seat #1 ea 11/05/23 [Rx Last Taken Unknown] lisinopril 10 mg tablet 10 mg PO 1600 #90 tabs 11/06/23 [Rx Last Taken Unknown] trazodone 100 mg tablet 100 mg PO QHS #90 tabs 11/06/23 [Rx Last Taken Unknown] hydrocodone 10 mg-acetaminophen 325 mg tablet 1 tab PO TID 1 month #90 tabs 11/20/23 [Rx Last Taken Unknown] Allergy/AdvReac Type Severity Reaction Status Date / Time aspirin Allergy Severe bleeding Verified 11/20/23 11:17 Family History Mother Myocardial infarction, Onset Age: 49 Depression Father Hypertension CVA (cerebral vascular accident), Onset Age: 49 Sister Thyroid disorder Uncle ulcers Surgical History History of bronchoscopy History of esophagogastroduodenoscopy (EGD) History of thoracic surgery Hx of colonoscopy Social History household members: spouse and significant other Smoking Status: Former smoker quit date: 07/14/21 alcohol intake: never substance use type: does not use what type of physical activity do you participate in: other details: yard work,house work ROS ROS ED Constitutional Constitutional ED: Denies chills, fever(s) or sweats Eyes Eyes: Denies blurry vision or change in vision ENT ENT ED: Denies ear pain or sore throat Cardiovascular Cardiovascular: Denies chest pain, palpitations or racing heartbeat Respiratory/Chest Respiratory/Chest: Denies cough, dyspnea or sputum Gastrointestinal Gastrointestinal: Reports abdominal pain; Denies constipation, diarrhea, nausea or vomiting Genitourinary Genitourinary ED: Reports other Details: Urine dribbling ; Denies dysuria, hematuria or urinary frequency Musculoskeletal Musculoskeletal: Denies arthralgias, myalgias or neck pain Integumentary Denies abscess, Abrasions or rash Neurologic Neurologic: Denies headache(s), paresthesias or weakness Psychiatric Psychiatric: Denies anxiety, depression, suicidal ideation or suicidal thoughts Endocrine Endocrinology: Denies polydipsia or polyuria EXAM Physical Exam Const Vital Signs: 12/03/23 16:31 12/03/23 16:37 12/03/23 18:53 Temperature 98.1 F 98 F 97.8 F Temperature Source Temporal Temporal Temporal Pulse Rate 62 72 56 L Respiratory Rate 15 15 16 Blood Pressure 177/104 H 177/104 H 160/82 H Blood Pressure Mean 128 128 108 Pulse Ox 93 95 95 Oxygen Delivery Method Nasal Cannula Nasal Cannula Nasal Cannula Oxygen Flow Rate (L/min) 3 3 3 Positive well nourished General Appearance ED: NAD; Negative for pallor HEENT Reports dry mucous membranes Mouth ED: Yes dry mucous membranes Mouth: dry mucous membranes Eyes PERRL and EOMs intact bilaterally Chest Wall inspection of chest normal Resp normal respiratory effort and clear to auscultation bilaterally Auscultation: Negative for rales, rhonchi or wheezes Cardio regular rate and regular rhythm GI GI Narrative: Suprapubic pressure. Bedside bladder scan shows 1770 cc Back/Spine no CVA tenderness Neuro oriented x3, CN's II-XII intact bilaterally and no sensory deficits noted Sensorium / Orientation: alert Psych Psych Narrative: Agitated Skin no rashes or lesions noted General Skin Exam: Negative for jaundice or pallor MDM MDM MDM Narrative Medical decision making narrative: Patient presenting with suprapubic pressure and agitation. He states he was angry because he is urinating on himself. He is unable to void significantly. Initially evaluated without family present. Bedside bladder scan shows 1770 cc in the bladder. Rocha catheter was placed with 2 L removed. Differential includes acute kidney injury, urinary outlet obstruction, UTI, pyelonephritis, dehydration, anemia, electrolyte abnormalities. Patient was given IV fluids. CBC was obtained and white blood cell count 11.9. Hemoglobin 9.5. This is nearbaseline. Platelets are 339 and normal. Potassium was elevated 8.4 with some hemolysis noted. Creatinine 8.75 which is new. GFR is 6. Previous creatinine 1.31 and prior to that was completely normal. Given the hyperkalemia repeat BMPwas ordered as well as tomorrow IV fluids. Patient given albuterol, insulin, D50, sodium bicarb, Kayexalate, calcium gluconate. Hospitalist recommended repeat BMP as there was some hemolysis. EKG on my interpretation did not show some peaked T waves however the sinus rhythm at 57 bpm. Patient is currently receiving IV fluids and is normotensive. CT of the abdomen pelvis without contrast was obtained and shows possible left mild hydronephrosis but this was before the Rocha catheter was placed and likely result of urinary outlet obstruction. Discussed with who is now present and she states that he had recently had his PSA checked and was normal. Given the acute renal failure patient to be admitted to the hospitalist. Given the hyperkalemia she recommended admission to the ICU. Impression: 1. Urinary outlet obstruction 2. Acute renal failure 3. Hyperkalemia 4. Weakness Lab Data Attestation: I reviewed the patient's lab results. Labs: Laboratory Results - last 24 hr 12/03/23 12/03/23 16:39 17:05 WBC 11.9 H RBC 2.92 L Hgb 9.5 L Hct 30.0 L MCV 102.7 H MCH 32.5 H MCHC 31.7 L RDW Std Deviation 54.7 H RDW Coeff of Issa 14.6 Plt Count 339 MPV 10.7 Immature Gran % (Auto) 0.400 Neut % (Auto) 81.7 H Lymph % (Auto) 6.4 L Faulkner % (Auto) 7.0 Eos % (Auto) 3.6 Baso % (Auto) 0.9 Absolute Neuts (auto) 9.7 H Absolute Lymphs (auto) 0.76 L Nucleated RBC % 0 Differential Comment SCANNED Sodium 134 L Potassium 8.4 H* Chloride 105 Carbon Dioxide 19.0 L Anion Gap 10 BUN 102 H* Creatinine 8.75 H* Estim Creat Clear Calc 7.23 Est GFR (MDRD) Af Amer 8 L Est GFR (MDRD) Non-Af 6 L BUN/Creatinine Ratio 11.7 Glucose 104 Calcium 11.6 H Total Bilirubin 0.20 AST 24 ALT 25 Alkaline Phosphatase 81 Total Creatine Kinase 112 Total Protein 8.0 Albumin 3.3 Globulin 4.7 H Albumin/Globulin Ratio 0.7 L Urine Color Yellow Urine Clarity Clear Urine pH 6.5 Ur Specific [place] 1.010 Urine Protein 30 H Urine Glucose (UA) Normal Urine Ketones Negative Urine Occult Blood 150 H Urine Nitrite Negative Urine Bilirubin Negative Urine Urobilinogen Normal Ur Leukocyte Esterase 25 H Urine RBC 25-50 SEEN Urine WBC 0-5 SEEN Ur Squamous Epith Cells 0 SEEN Urine Bacteria 0 SEEN Urine Mucus 0 SEEN Radiography Diagnostic Testing: Clinical Impression(s) from Imaging Studies Abdomen/Pelvis CT 12/03/23 17:03 IMPRESSION: Left lower lobe airspace disease. Bilateral nonobstructing nephroliths. Possible mild left hydronephrosis with no definite radiodense ureterolith. Electronically Signed: Basim Aguilar MD at 18:08 EST , Discharge Plan Disposition Disposition: Acute Care Hospital [facility] Discharge Date/Time: 12/03/23 21:00 What to do if you have Problems For any increased pain, shortness of breath, bleeding, nausea or vomiting, chestpain, or any unexpected problems, contact your Primary Care Provider. Call [facility] ([phone]) or report to the closest Emergency Room. Call 911 if necessary. 12/03/232143 <Electronically signed by Hao Vega DO> Cosigner Signature (if applicable): CC: Dr. Shalini Ferrari DO ~ Signed [facility] Work Phone: [phone]) 920-235812-27-2023 Procedure [facility] 10-09-2023 Procedure [facility]12-27-2023 Procedure note [facility]12-27-2023 Procedure [facility] 08-14-2023 Procedure [facility]04-19-2023 Nurse Discharge summary Discharged to [facility]. Escorted to the exit via w/c per BLAYNE Toussaint. Transported by Significant other, Frederick. Left at 1425. [facility]04-19-2023 Note Discharge Instructions Thank you for allowing [facility] to assist you with your healthcare needs. The following is importantdischarge information regarding your hospital visit. Your Care Team SHALINI FERRARI DO DANIELE VORA APRN-SOLE Your Diagnosis Weakness Falls Chronic pain Leukocytosis COPD (chronic obstructive pulmonary disease) Altered mental status What to do next Follow Up Appointments Follow Up with SHALINI FERRARI DO When Within 3-5 days Why: Please schedule follow up with PCP after d/c. Where: [facility] [address] [place] [phone] Follow Up with Go to emergency room if symptoms worsen When Within 2-4 days Follow Up with SHALINI FERRARI DO When Within 2-4 days Where: [facility] [address] [place] [phone] The Following Activity and Diet Have Been [...] Ordered -- 01/30/23 8:11:00 EDT, DANIELE VORA Transfer of Care Prognosis - Ordered -- [...] and or supplements as they may interact withyour home medications. What How Much When Why Instructions Last Dose Changed acetaminophen-hydrocodone ([place] 325- 5 mg oral tablet) 1 tab(s) [...] 1 tab(s) by mouth Daily at bedtime 18 9PM Unchanged traZODone (traZODone 100 mg oral [...] the next day, and not just the musclesyou initially injured. Remember, all the parts of [...] the advice from your healthcare provider regarding careof your injury. If you become lightheaded or [...] or CT scan were done, you will benotified if there is a change in the [...] in vomit, stools (black or red color) [id number] [employer]. [address] [place] [address]. All rights reserved. This information is not intended as a substitute for professional medical care. Always follow yourhealthcare professional's instructions. Additional Information VACCINATE! IT SAVES LIVES! Members of the community who have not yet received the COVID-19 vaccine and would like to receive it can visit one of [facility] vaccine clinics. There are many vaccine clinic locations within the [facility]. For locations and available times, please visit https://gettheshot.coronavirus.[place].gov/. It is important to note that some COVID mobile vaccine clinics are held outdoors and may be canceled in rainy or stormy conditions. To learn more about pediatric vaccinations (ages 5-11), we invite you to visit the [facility] webpage. https://www.[facility].org/pages/0447-Cfgpp-Rjikoadesvs-Dqdktzjxog-Nyjgq-Snr stions.htmlTo learn more about the COVID-19 vaccine, we invite you to visit the CDC website for a list of frequently asked questions. https://www.cdc.gov/coronavirus/2019-ncov/vaccines/faq.html [facility] Patient Portal Access Instructions: Stay connected with your healthcare team and access your personal medical information anytime with the [facility] Patient Portal.If you would like a full copy of your medical records, please contact the [facility] Medical Records Department, Saturday through Saturday between 8a.m. and 4:30p.m. Please follow the directions below to access the portal: 1.Access the email account you provided upon registration to the [facility].2.Look for an invitation email from [facility].3.Open the email and access the invitation link: Accept Invitation to [facility]4.Fill in the required cuellar to create your account. Sign into [email or web address].Farmia with your username and password that you [...] you will allow to register on the [facility] Patient Portal for access to your information. You can also access the [facility] Patient Portal on the [employer]рей. Simply click on Health Records under [employer] and then click on the [facility] logo. HOW TO SAFELY DISPOSE OF PRESCRIPTION MEDICATIONS Please use one of the following methods to safely dispose of your unused medications. 1.Use a drug disposal kit: the drug disposal pouch allows you to safely discard your old and unuseddrugs. Ask your nurse to give you one when you are discharged.2.Visit a local take-back location: Many local pharmacies and police departments have programs that collect old and unwanted prescriptiondrugs. Call your local pharmacy or go to http://Corimmun.Qgiv/1T9Kv9h to find one close to you.3.Make use of household items: Use cat litter or old coffee grounds to dispose medications if other options arenot available. Mix your drugs with these household products, seal them in an airtight container andthrow it into the garbage. Call [facility]: [phone] to be sure your drugs can be [...] been reviewed and explained to me and I,ELIGIO MCCABE understand my current condition and have read and understand these discharge instructions. I have received a written copy of the plan/instructions. If I have questions, I am aware that I should contact my doctor. [facility] Signature: Date/Time: Relationship to Patient: Witness Name/Signature: Date/Time: [facility]04-18-2023 Note Date of Service 01/29/2023 Chief Complaint Weakness and falls Subjective 72-year-old male with past medical history significant for arthritis, chronic pain, depression, GERD, gastric ulcers, IBS, kidney stones, neuropathy, tobacco use. Patient presented to [facility] emergency department on 01/28/2023 with increased falls and weakness. Patient was discharged from [facility] on 01/16/2023 for gastroenteritis and COVID-19 pneumonia with superimposed bacterial infection. He was discharged on Levaquin. In the emergency department patient was bradycardic and hypotensive. Hypotension did improve after receiving IV fluids. Adequate oxygen saturations on room air. Mild renal insufficiency with creatinine of 1.34.CT cervical spine, CT brain, x-ray pelvis negative. [...] Date: January 29, 2023 Verified By: ELMER VAUGHN MD CLINICAL STATEMENT: IMPRESSION: Findings suggestive of [...] medications that increases risk for falls including [place] 10/325, cyclobenzaprine, gabapentin. Check orthostatic vital signs. Decrease [place]. Hold cyclobenzaprine. PCPs note was reviewed from 01/24/2023 with plans for dose reductions on medications. patient was hypotensive overnight requiring a fluid bolus. Suspend atenolol. Patient was evaluated by therapy eith recommendations for SNF. He is a very high risk for falls. Itwas reported to me that POA was looking for placement. It appears that his POA packed close for himfor several days. Chronic pain as above. Neuropathy Decrease gabapentin to 300 mg twice daily Leukocytosis White blood cell count increased to 19,000 today. He is afebrile. Lactic acid 0.9. Urinalysis negative for nitrates and leukocyte Estrace. Positive for blood. Denies any dysuria, urgency, frequency. No SPT or CVA tenderness. Blood cultures and Urinalysis show NGTD. Patient was discharged from [facility] for pneumonia. He completed a course [...] He was able to share the accurate detailsof his PCP visit on 01/24/2023 which I [...] out to patient's POA and significant other, Frederick. A voicemail was left this morning. I tried an additional 3 times to reach her but her phone goes straight to voicemail. This dictation was performed using voice recognition software and may include grammatical and/or spelling errors. Digitally Signed by DANIELE VORA on 01/29/2023 02:48 PM Digitally Signed by DANIELE VORA on 01/30/2023 07:26 AM [facility]04-18-2023 Note ORIGINAL EXAMINATION: TWO XRAY VIEWS OF [...] atelectasis. Chronic interstitial change. Interpreted by: Elmer Vaughn MD Preliminary Report By: Elmer Vaughn MD Electronically signed By Elmer Vaughn MD Dictated Date: 01/29/2023 6:05:50 AM Prelim Date: 01/29/2023 6:12:42 AM Sign Date: 01/29/2023 6:12:42 AM Ordering Provider: [facility]04-18-2023 Note ORIGINAL EXAMINATION: TWO XRAY VIEWS OF [...] atelectasis. Chronic interstitial change. Interpreted by: Elmer Vaughn MD Preliminary Report By: Elmer Vaughn MD Electronically signed By Elmer Vaughn MD Dictated Date: 01/29/2023 6:05:50 AM Prelim Date: 01/29/2023 6:12:42 AM Sign Date: 01/29/2023 6:12:42 AM Ordering Provider: [facility]04-17-2023 Note Date of Service 01/28/2023 Chief Complaint Patient presents for AMS. History of Present Illness 72-year-old male with past medical history significant for arthritis, chronic pain, depression, GERD, gastric ulcers, IBS, kidney stones, neuropathy, tobacco use. Patient presented to [facility] emergency department on 01/28/2023 with increased falls and weakness. Patient was discharged from [facility] on 01/16/2023 for gastroenteritis and COVID-19 pneumonia with superimposed bacterial infection. He was discharged on Levaquin. In the emergency department patient was bradycardic and hypotensive. Hypotension did improve after receiving IV fluids. Adequate oxygen saturations on room air. Mild renal insufficiency with creatinine of 1.34.CT cervical spine, CT brain, x-ray pelvis negative. [...] medications that increases risk for falls including [place] 10/325, cyclobenzaprine, gabapentin. Additionally he is taking atenolol. Check orthostatic vital signs. Decrease [place]. Hold cyclobenzaprine. Consult PT and OT. Chronic pain as above. Neuropathy consider decreasing gabapentin due to frequent falls. Will monitor. Patient was discharged from [facility] for pneumonia. He completed a course [...] days. Type: Cigars. Number of years: 50. Startedat age: 13 Years. Previous treatment: None. Ready to change: No. Smoking Cessation Information Refused smoking cessation information., 05/19/2021 Family History Hypertension: Father. Stroke: Father. Substance abuse: Mother. Immunizations No qualifying data available. Code Status Code Status - Ordered -- 01/28/23 15:32:00 EDT, Full Code, Constant Order Digitally Signed by DANIELE VORA on 01/28/2023 05:30 PM [facility]04-17-2023 Hospital Discharge instructions Patient Education 01/28/2023 14:03:09 [...] the next day, and not just the musclesyou initially injured. Remember, all the parts of [...] the advice from your healthcare provider regarding careof your injury. If you become lightheaded or [...] or CT scan were done, you will benotified if there is a change in the [...] in vomit, stools (black or red color) [id number] [employer]. [address] [place] [address]. All rights reserved. This information is not intended as a substitute for professional medical care. Always follow yourhealthcare professional's instructions. Follow Up Care 01/28/2023 13:32:30 With:SHALINI FERRARI DO Address: [facility] [address] [place] [phone] When:3-5 days Comments:Please schedule follow up with PCP after d/c. With:Go to emergency room if symptoms worsen Address:Unknown When:2-4 days With:SHALINI FERRARI DO Address: [facility] [address] [place] [phone] When:2-4 days [facility] 04-17-2023 Note ORIGINAL HISTORY: Falls COMPARISON: No TECHNIQUE: [...] Sign Date: 01/28/2023 3:03:49 PM Ordering Provider: [address]17-2023 Note ORIGINAL HISTORY: Falls COMPARISON: No TECHNIQUE: [...] Sign Date: 01/28/2023 3:02:56 PM Ordering Provider: [address]17-2023 Note ORIGINAL HISTORY: Altered mental status COMPARISON: [...] Sign Date: 01/28/2023 2:51:30 PM Ordering Provider: [address]17-2023 Note ORIGINAL HISTORY: Falls COMPARISON: No TECHNIQUE: [...] Sign Date: 01/28/2023 3:03:49 PM Ordering Provider: [address]17-2023 Note ORIGINAL HISTORY: Falls COMPARISON: No TECHNIQUE: [...] Sign Date: 01/28/2023 3:02:56 PM Ordering Provider: [address]17-2023 Note ORIGINAL HISTORY: Falls COMPARISON: No FINDINGS: [...] Sign Date: 01/28/2023 2:45:20 PM Ordering Provider: [address]17-2023 Note ORIGINAL HISTORY: Falls COMPARISON: No FINDINGS: [...] Sign Date: 01/28/2023 2:45:20 PM Ordering Provider: [address]17-2023 Note ORIGINAL HISTORY: Altered mental status COMPARISON: [...] Sign Date: 01/28/2023 2:51:30 PM Ordering Provider: [address]17-2023 Evaluation + Plan noteExtracted from: Title:History and Physical Author:DANIELE VORA CIVIL DEFENSE DIRECTOR-RIDING SILKS CUSTODIAN Date:01/28/23 1. Weakness 2. Falls 3. Chronic pain Weakness and falls- Pt has had 9 falls in the past week. He states sometimes he is weak and falls sometimes he gets dizzy. Patient is on multiple medications that increases risk for falls including [place] 10/325, cyclobenzaprine, gabapentin. Additionally he is taking atenolol. Check orthostatic vital signs. Decrease [place]. Hold cyclobenzaprine. Consult PT and OT. Chronic pain as above. Neuropathy consider decreasing gabapentin due to frequent falls. Will monitor. Patient was discharged from [facility] for pneumonia. He completed a course [...] and may include grammatical and/or spelling errors. [facility] 04-05-[address] Martinez [facility] January 16, 2023 8:39am Note Date/Time January 16, 2023 8:39 am [facility] Medical Records Department [address] [place] [phone] Progress Note - Hospitalist 01/16/23 0836 MR#: [id number] Acct: [id number] Name: ELIGIO MCCABE Rep #:[id number] : 1950 72 From: Trent skelton MD PCP: Dr. Shalini Ferrari, DO Status:AD M IN Location: IA3 DD241-8 Subjective Subjective Has a headache this morning, denies any significant abdominal pain. He was ableto have a bowel movement yesterday enteric pathogen panel is pending Objective Data Objective Data Vital Signs: Vital Signs Temp Pulse Resp BP Pulse Ox O2 Del Method 98.9 F 94 18 134/74 H 94 Room Air 01/16/23 05:45 04/05/23 05:45 01/16/23 05:45 01/16/23 05:45 01/16/23 05:45 01/16/23 05:45 Oxygen Delivery Method Room Air Weight: 170 lb 3.15 oz Body Mass Index (BMI) 22.5 Intake & Output: Intake and Output for Last 24 Hours 01/15/23 01/16/23 01/17/23 03:59 03:59 03:59 Intake Total 2710 / 2710 2605.42 / 2605.42 1137.5 / 1137.5 Output Total 1200 / 1200 800 / 800 Balance 1510 / 1510 1805.42 / 1805.42 1137.5 / 1137.5 Lab / Micro Data Result Diagrams: 01/16/23 06:05 01/16/23 06:05 Labs: Laboratory Results - last 24 hr 01/16/23 06:05: WBC 15.5 H, RBC 3.45 L, Hgb 11.4 L, Hct 34.0 L, MCV 98.6 H, MCH 33.0 H, MCHC 33.5, RDW Std Deviation 44.4 H, RDW Coeff of Issa 12.4, Plt Count 235, MPV 9.6, Immature Gran % (Auto) 0.300, Neut % (Auto) 87.8 H, Lymph % (Auto)4.0 L, Faulkner % (Auto) 7.5, Eos % (Auto) 0.1, Baso % (Auto) 0.3, Absolute Neuts (auto) 13.6 H, Absolute Lymphs (auto) 0.62 L, Nucleated RBC % 0, Macrocytosis 1+ 01/16/23 06:05: Sodium 141, Potassium 3.5, Chloride 109 H, Carbon Dioxide 25.0, Anion Gap 7, BUN 8, Creatinine 0.73, Estim Creat Clear Calc 72.91, Est GFR (MDRD) Af Amer 136, Est GFR (MDRD) Non-Af 112, BUN/Creatinine Ratio 11.0, Glucose 112 H, Calcium 8.5 Micro: Microbiology 01/14/23 20:07 Mucosa - Nasopharyngeal Respiratory Panel (PCR) - Final Physical Exam Narrative General: Alert, Oriented x3, Cooperative, No apparent distress HEENT: Atraumatic, PERRLA, EOMI, Normocephalic Oral: Moist Mucosa Neck: Supple, No JVD Lungs: Diminished, Normal air movement, No rhonchi, No wheeze, No rales Cardiovascular: Regular rate, Regular Rhythm, Normal S1, Normal S2, No murmurs Abdomen: Soft, Non Tender, Non-Distended, No Hepato-splenomegaly Extremities: No edema, Capillary Refill Less than 3 Seconds Skin: No rashes, No breakdown Musculoskeletal: No Tenderness to Palpation of Joints or Extremities Neurological: Moves all extremities, sensation intact Psych/Mental Status: Flat affect, Appropriate Assessment & Plan Assessment/Plan (1) Nausea and vomiting: PLAN: Plan 1. Acute viral gastroenteritis possibly due to COVID/elevated LFTs ? Unclear as to why respiratory panel and a COVID panel were obtained however COVID did come back positive ? Enteric pathogen and C. difficile panel are pending ? He does not appear to be having significant diarrhea at the moment ? Encourage p.o. intake ? Will not treat the positive COVID test as he is not having any oxygen issues ? Magnesium is improved we will continue to monitor electrolytes and replace as necessary ? LFTs appear to be improving ? Could be secondary to viral etiology 2. COPD no exacerbation ? Continue with inhalers ? Stable 3. HTN/HLD ? Blood pressure stable ? Continue with his home blood pressure and cholesterol medications 4. GERD ? Stable ? Continue with PPI 5. Anxiety/depression/chronic neuropathy with chronic pain ? Stable ? Continue with his home medications DVT: Lovenox Charges/Coding Visit Charges Inpatient E&M: 79064 Subs Hosp L2 01/16/23 0839 <Electronically signed by Trent Martinez MD> Cosigner Signature (if applicable): CC: ~ Signed [facility] Work Phone: 1(578) 916-172704-04-[address] Martinez [facility] January 15, 2023 10:09am Note Date/Time January 15, 2023 10:0 9am [facility] Medical Records Department [address] [place] [address] Progress Note - Hospitalist 01/15/23 1003 MR#: [id number] Acct: [id number] Name: ELIGIO MCCABE Rep #:[id number] : 1950 72 From: Trent skelton MD PCP: Dr. Shalini Ferrari, DO Status:AD M IN Location: MS3 PD970-2 Subjective Subjective Doing well, will encourage p.o. intake no issues overnight Objective Data Objective Data Vital Signs: Vital Signs Temp Pulse Resp BP Pulse Ox O2 Del Method 97.9 F 81 18 148/79 H 95 Room Air 01/15/23 02:30 01/15/23 02:30 01/15/23 02:30 01/15/23 02:30 01/15/23 08:12 01/15/23 08:12 Oxygen Delivery Method Room Air Weight: 166 lb 3.657 oz Body Mass Index (BMI) 22.0 Intake & Output: Intake and Output for Last 24 Hours 01/14/23 01/15/23 01/16/23 03:59 03:59 03:59 Intake Total 2710 / 2710 100 / 100 Output Total 1200 / 1200 800 / 800 Balance 1510 / 1510 -700 / -700 Lab / Micro Data Result Diagrams: 01/15/23 06:45 01/15/23 06:45 Labs: Laboratory Results - last 24 hr 01/14/23 15:15: WBC 7.8, RBC 3.78 L, Hgb 12.8 L, Hct 36.4 L, MCV 96.3 H, MCH 33.9 H, MCHC 35.2, RDW Std Deviation 42.5, RDW Coeff of Issa 12.0, Plt Count 220,MPV 9.4, Immature Gran % (Auto) 0.300, Neut % (Auto) 76.3 H, Lymph % (Auto) 12.0L, Faulkner % (Auto) 9.8, Eos % (Auto) 1.3, Baso % (Auto) 0.3, Absolute Neuts (auto)6.0, Absolute Lymphs (auto) 0.94, Nucleated RBC % 0 01/14/23 15:15: Sodium 125 L, Potassium 3.4 L, Chloride 91 L, Carbon Dioxide 28.0, Anion Gap 6, BUN 9, Creatinine 0.94, Estim Creat Clear Calc 74.60, Est GFR(MDRD) Af Amer 101, Est GFR (MDRD) Non-Af 83, BUN/Creatinine Ratio 9.5 L, Glucose 113 H, Calcium 9.4, Total Bilirubin 0.50, Direct Bilirubin 0.18, AST 153H, ALT 65 H, Alkaline Phosphatase 73, Total Protein 7.4, Albumin 3.7, Globulin 3.7, Lipase 170 01/14/23 15:15: Magnesium 1.0 L 01/14/23 16:20: Urine Color Yellow, Urine Clarity Sl. Cloudy, Urine pH 5.0, Ur Specific [place] 1.010, Urine Protein 30 H, Urine Glucose (UA) Normal, Urine Ketones Negative, Urine Occult Blood 250 H, Urine Nitrite Negative, Urine Bilirubin Negative, Urine Urobilinogen Normal, Ur Leukocyte Esterase Negative, Urine RBC > 100 SEEN, Urine WBC 0 SEEN, Ur Squamous Epith Cells 0-5 SEEN, Amorphous Sediment 1+ URATE, Urine Bacteria 0 SEEN, Urine Mucus 0 SEEN 01/14/23 17:39: Procalcitonin < 0.01 01/14/23 20:07: COVID-19 (LAUREN) Detected 01/15/23 06:45: WBC 10.1, RBC 3.83 L, Hgb 12.6 L, Hct 37.7 L, MCV 98.4 H, MCH 32.9 H, MCHC 33.4 D, RDW Std Deviation 43.8, RDW Coeff of Issa 12.1, Plt Count 251, MPV 9.4, Immature Gran % (Auto) 0.400, Neut % (Auto) 76.0 H, Lymph % (Auto)12.9 L, Faulkner % (Auto) 8.9, Eos % (Auto) 1.5, Baso % (Auto) 0.3, Absolute Neuts (auto) 7.6, Absolute Lymphs (auto) 1.30, Nucleated RBC % 0 01/15/23 06:45: Sodium 138, Potassium 3.7, Chloride 105, Carbon Dioxide 29.0, Anion Gap 4 L, BUN 6 L, Creatinine 0.85, Estim Creat Clear Calc 83.78, Est GFR (MDRD) Af Amer 114, Est GFR (MDRD) Non-Af 95, BUN/Creatinine Ratio 7.1 L, Glucose 96, Calcium 9.4, Magnesium 2.0, Total Bilirubin 0.50, AST 128 H, ALT 68 H, Alkaline Phosphatase 73, Total Protein 7.3, Albumin 3.7, Globulin 3.6, Albumin/Globulin Ratio 1.0 Micro: Microbiology 01/14/23 20:07 Mucosa - Nasopharyngeal Respiratory Panel (PCR) - Final Radiography Diagnostic Testing: Radiology Impression Brain CT 01/14/23 17:00 IMPRESSION: Normal unenhanced CT scan of the brain. Electronically Signed: Ector Ugarte MD at 19:16 EDT , Physical Exam Narrative General: Alert, Oriented x3, Cooperative, No apparent distress HEENT: Atraumatic, PERRLA, EOMI, Normocephalic Oral: Moist Mucosa Neck: Supple, No JVD Lungs: Diminished, Normal air movement, No rhonchi, No wheeze, No rales Cardiovascular: Regular rate, Regular Rhythm, Normal S1, Normal S2, No murmurs Abdomen: Soft, Non Tender, Non-Distended, No Hepato-splenomegaly Extremities: No edema, Capillary Refill Less than 3 Seconds Skin: No rashes, No breakdown Musculoskeletal: No Tenderness to Palpation of Joints or Extremities Neurological: Moves all extremities, sensation intact Psych/Mental Status: Flat affect, Appropriate Assessment & Plan Assessment/Plan (1) Nausea and vomiting: PLAN: Plan 1. Acute viral gastroenteritis possibly due to COVID/elevated LFTs ? Unclear as to why respiratory panel and a COVID panel were obtained however COVID did come back positive ? Enteric pathogen and C. difficile panel are pending ? He does not appear to be having significant diarrhea at the moment ? Encourage p.o. intake ? Will not treat the positive COVID test as he is not having any oxygen issues ? Magnesium is improved we will continue to monitor electrolytes and replace as necessary ? LFTs appear to be improving ? Could be secondary to viral etiology 2. COPD no exacerbation ? Continue with inhalers ? Stable 3. HTN/HLD ? Blood pressure stable ? Continue with his home blood pressure and cholesterol medications 4. GERD ? Stable ? Continue with PPI 5. Anxiety/depression/chronic neuropathy with chronic pain ? Stable ? Continue with his home medications DVT: Lovenox Charges/Coding Visit Charges Inpatient E&M: 67897 Subs Hosp L2 01/15/23 1009 <Electronically signed by Trent Martinez MD> Cosigner Signature (if applicable): CC: ~ Signed [facility] Work Phone: [phone]) 250-846104-03-2023 History and physical note Author Dr. Clancy [facility] January 14, 2023 4:56pm Note Date/Time January 14, 2023 4:37 pm [facility] Medical Records Department [address] [place] [address] History & Physical Exam 01/14/23 1628 MR#: [id number] Acct: [id number] Name: ELIGIO MCCABE Rep #:[id number] : 1950 72 From: Mariann Clancy MD PCP: Dr. Shalini Ferrari, DO Status:AD M IN Location: [facility] [place] [id number] HPI - General General Date of Admission: 01/14/23 Date of Service: 01/14/23 Chief Complaint: Ongoing N/V, poor intake. HPI Narrative The patient is a 72 y/o M w/ PMHx: Chronic macrocytic anemia, GERD w/ Hx Gastriculcers, Depression and Anxiety, HLD, COPD, Former tobacco use, Chronic pain syndrome who presents to the [facility] ED on 01/14/23 with history of recent onset persistent nausea, emesis and loose stools with generalized abdominal discomfortstarting over the last 5 to 7 days with watery diarrhea with self administrationinitially of Imodium with no marked improvement with decreased oral intake and inability to keep anything down given intractable nausea and emesis with initialED evaluation 01/12/23 with no obvious evidence of UTI, CBC not marked appearing and CMP appropriate at that time with CT abdomen pelvis with no acute findings with clinical improvement per note with discharge on Zofran and instruction to slowly advance diet with PCP follow- up however patient now represents to the [facility] on 01/14/23 with ongoing persistent nausea and emesis although resolution of diarrhea since prior ED evaluation with no fevers or chills but given unable to maintain appropriate hydration prompted family to bring patient back in for evaluation. Patient has had confusion as associated which occurred prior also which is why family had brought him in originally with his symptoms but improvedwith ED interventions and has worsened again with no inability to maintain any oral intake. In the ED on evaluation patient with no abdominal pain and significant other who is present denies him having marking abdominal symptoms otherwise. She does report that he has had significant ongoing hiccups for the last 3 days which she has currently upon evaluation. He does report that he hashad some room spinning sensation and has felt less stable on his feet. Work-up in the ED included T97, heart rate 80, BP 157/91, respiratory rate 14, 100% roomair, CBC with WC 7.8, hemoglobin 12.8, MCV 96.3, platelet 220 without marked shift, CMP with sodium 125, potassium 3.4, chloride 91, BUN/creatinine 9/0.94, glucose 113, AST/ALT 153/65, lipase 170, UA pending upon requested evaluation ofpatient. In the ED patient administered Zofran 4 mg IV x2 as well as morphine 4mg IV x1 and 1 L normal saline. [facility] Medical History Arthritis Chronic pain Depression GERD (gastroesophageal reflux disease) History of pneumonia History of stomach ulcers Hyperlipidemia Hypertension IBS (irritable bowel syndrome) Kidney stones Neuropathy Severe protein-calorie malnutrition Smoker Syncope Home Medications docusate sodium 100 mg capsule (Colace) 100 mg PO TID PRN Constipation 06/01/21 [History Last Taken Unknown] multivitamin 1 tab PO DAILY supplement 07/01/21 [History Last Taken Unknown] vitamin B complex 1 tab PO DAILY supplement 07/01/21 [History Last Taken Unknown] fluticasone propionate 50 mcg/actuation nasal spray,suspension 2 spray intranasal DAILY #16 grams 10/25/21 [Rx Last Taken Unknown] albuterol sulfate 90 mcg/actuation aerosol inhaler (Ventolin HFA) 2 puff inhalation Q6H #8.5 grams 11/26/21 [Rx Last Taken Unknown] atenolol 50 mg tablet 50 mg PO DAILY #90 tabs 10/29/22 [Rx Last Taken Unknown] cyclobenzaprine 5 mg tablet 5 mg PO TID pain #90 tabs 10/29/22 [Rx Last Taken Unknown] pantoprazole 40 mg tablet,delayed release 40 mg PO QAM #90 tabs 10/29/22 [Rx Last Taken Unknown] trazodone 100 mg tablet 100 mg PO QHS #90 tabs 10/29/22 [Rx Last Taken Unknown] pravastatin 40 mg tablet 40 mg PO QHS #90 tabs 11/15/22 [Rx Last Taken Unknown] gabapentin 600 mg tablet 600 mg PO TID #90 tabs 12/13/22 [Rx Last Taken Unknown] venlafaxine 150 mg capsule,extended release 24 hr 150 mg PO DAILY #90 caps 12/13/22 [Rx Last Taken Unknown] hydrocodone 10 mg-acetaminophen 325 mg tablet 1 tab PO 4X/DAY 1 month #120 tabs 01/10/23 [Rx Last Taken Unknown] glucosamine-chondroitin 250 mg-200 mg tablet (Osteo Bi-Flex) See Rx InstructionsPO .COMPLEX 01/12/23 [History Last Taken Unknown] ondansetron 4 mg disintegrating tablet 4 mg PO Q8H PRN PRN Nausea #10 tabs 01/12/23 [Rx Last Taken Unknown] meloxicam 15 mg tablet 15 mg PO DAILY . 01/14/23 [History Last Taken 01/13/23] Allergy/AdvReac Type Severity Reaction Status Date / Time aspirin Allergy Severe bleeding Verified 01/14/23 14:54 Family History Mother Myocardial infarction, Onset Age: 49 Depression Father Hypertension CVA (cerebral vascular accident), Onset Age: 49 Sister Thyroid disorder Uncle ulcers Surgical History (Updated 01/14/23 @ 16:[address] Mariann Clancy MD) History of endoscopy History of thoracic surgery Social History (Updated 01/14/23 @ 16:[address] Mariann Clancy MD) household members: significant other Smoking Status: Former smoker quit date: 07/14/21 alcohol intake: never substance use type: does not use what type of physical activity do you participate in: other details: yard work,house work ROS ROS Narrative Admission Review of Systems: CONSTITUTIONAL: No weight loss, fever, chills, + weakness or fatigue. HEENT: + Reports occasional vertigo type symptoms, intractable hiccups. Eyes: No visual loss, blurred vision, double vision or yellow sclerae. Ears, Nose, Throat: No hearing loss, sneezing, congestion, runny nose or sore throat. SKIN: No rash or itching, lesions, wounds. CARDIOVASCULAR: No chest pain, chest pressure or chest discomfort, palpitations,edema, orthopnea, syncopal events. RESPIRATORY: No shortness of breath, cough or sputum, wheezing, hemoptysis. GASTROINTESTINAL: + anorexia, nausea, vomiting, diarrhea, abdominal pain, No melena, BRBPR. GENITOURINARY: No dysuria, frequency, urgency or retention. NEUROLOGICAL: + Mild vertigo, dizziness w/ activity, Confusion. No headache, syncope, paralysis, ataxia, numbness or tingling in the extremities, focal weakness, change in bowel or bladder control, seizure. MUSCULOSKELETAL: + muscle, back pain, joint pain or stiffness. HEMATOLOGIC: + anemia, bleeding or bruising. LYMPHATICS: No enlarged nodes. No history of splenectomy. PSYCHIATRIC: + history of depression or anxiety. ENDOCRINOLOGIC: No reports of sweating, cold or heat intolerance. No polyuria orpolydipsia. ALLERGIES: No history of asthma, hives, eczema or rhinitis. Vital Signs Vital Signs Vital Signs: 01/14/23 14:54 Temperature 97 F L Temperature Source Temporal Pulse Rate 80 Respiratory Rate 14 Blood Pressure 157/91 H Blood Pressure Mean 113 Pulse Ox 100 Oxygen Delivery Method Room Air Weight Weight: 163 lb 11.2 oz Body Mass Index (BMI) 21.6 Physical Exam Narrative Physical Examination: General: Awake, alert, oriented to self, place, significant present as well as president but could not give correct month or year, remains cooperative, seated upright in ED bed, ongoing intractable hiccups during evaluation which significant confirms has been ongoing x3 days. Skin: Normal color, normal turgor, no icterus, no cyanosis. HEENT: AT/NC, EOMI, PERRLA, dry MM, no carotid bruits or JVD noted. Lungs: Diminished, greater bases, appropriate effort, no rales, ronchi or wheezing. Heart: Currently regular rate and rhythm; no gallop, rub audible. Abdomen: Soft, NTTP, ND, mildly hyperactive BS, no obvious evidence of HSM. Extremities: No cyanosis, clubbing, or edema. Neurological: Patient awake, alert, oriented as noted, cognitive function not baseline intact; pupils equally reactive to light and accommodation, cranial nerves II-XII grossly normal, moving all 4 extremities, no focal deficits, strength moderately to severely globally decreased secondary to acute presentation,no complaint of vertiginous symptoms at this time nor any obvious evidence of nystagmus. Psychiatric: Affect appears fatigued, ongoing intractable hiccups, no acute evidence of depressive or anxiety feelings. Results Lab / Micro Data Result Diagrams: 01/14/23 15:15 01/14/23 15:15 Labs: Laboratory Results - last 24 hr 01/14/23 15:15: WBC 7.8, RBC 3.78 L, Hgb 12.8 L, Hct 36.4 L, MCV 96.3 H, MCH 33.9 H, MCHC 35.2, RDW Std Deviation 42.5, RDW Coeff of Issa 12.0, Plt Count 220,MPV 9.4, Immature Gran % (Auto) 0.300, Neut % (Auto) 76.3 H, Lymph % (Auto) 12.0L, Faulkner % (Auto) 9.8, Eos % (Auto) 1.3, Baso % (Auto) 0.3, Absolute Neuts (auto)6.0, Absolute Lymphs (auto) 0.94, Nucleated RBC % 0 01/14/23 15:15: Sodium 125 L, Potassium 3.4 L, Chloride 91 L, Carbon Dioxide 28.0, Anion Gap 6, BUN 9, Creatinine 0.94, Estim Creat Clear Calc 74.60, Est GFR(MDRD) Af Amer 101, Est GFR (MDRD) Non-Af 83, BUN/Creatinine Ratio 9.5 L, Glucose 113 H, Calcium 9.4, Total Bilirubin 0.50, Direct Bilirubin 0.18, AST 153H, ALT 65 H, Alkaline Phosphatase 73, Total Protein 7.4, Albumin 3.7, Globulin 3.7, Lipase 170 Assessment & Plan Assessment/Plan (1) Nausea and vomiting: PLAN: Plan The patient is a 72 y/o M w/ PMHx: Chronic macrocytic anemia, GERD w/ Hx Gastriculcers, Depression and Anxiety, HLD, COPD, Former tobacco use, Chronic pain syndrome who presents to the [facility] ED on 01/14/23 with history of recent onset persistent nausea, emesis and loose stools with generalized abdominal discomfortstarting over the last 5 to 7 days with watery diarrhea with self administrationinitially of Imodium with no marked improvement with decreased oral intake and inability to keep anything down given intractable nausea and emesis with initialED evaluation 01/12/23 with no obvious evidence of UTI, CBC not marked appearing and CMP appropriate at that time with CT abdomen pelvis with no acute findings with clinical improvement per note with discharge on Zofran and instruction to slowly advance diet with PCP follow- up however patient now represents to the [facility] on 01/14/23 with ongoing persistent nausea and emesis although resolution of diarrhea since prior ED evaluation with no fevers or chills but given unable to maintain appropriate hydration prompted family to bring patient back in for evaluation. #1. Electrolyte disturbances and Acute (Metabolic) Encephalopathy secondary to N/V/D, Possible Acute Gastroenteritis w/ concurrent intractable Hiccups and intermittent reported Vertigo: We will admit to medical surgical floor, will obtain CT head to be cautious, will trial dose x 1 thorazine IM given intractable hiccups, will continue aggressive hydration, if any recurrent diarrhea although that seems to have subsided would obtain C. difficile and enteric pathogen at that time, will trend CBC and CMP, will obtain procalcitonin and will initially defer immediate antibiotic initiation is certainly could be viral, will obtain respiratory viral panel also and COVID PCR, will have as needed antiemetic and pain regimen as needed, maintain on fall precautions, PT/OT/case management consulted for discharge planning as patient has certainly become deconditioned given advanced age and ongoing symptoms, will maintain on IV PPI and will start with initially clears if patient is able to tolerate with advancement is improving. If no recurrent loose stools but persistent nausea and emesis low threshold to involve gastroenterology. #2. Hyponatremia, hypovolemic: Admission sodium 125, chloride 91, likely secondary to GI losses and poor intake, will continue to aggressively hydrate and repeat CMP in a.m. #3. Elevated LFTs, unclear specific etiology: T. bili as well as D bili and alkphos normal levels, no prior significant elevations, likely related with acute presentation, will continue to judiciously hydrate and repeat CMP in AM. RecentCT abdomen pelvis with no obvious findings. If rising further will obtain hepatitis panel and consider obtaining focused hepatic ultrasound. #4. Hypokalemia: Admission K+ 3.4, magnesium level request, supplementation given, repeat level in AM. #5. Chronic COPD: Patient is not on chronic inhalers, in the interim we will have PRN albuterol, HOB, IS parameters. #6. Anxiety and depression: We will continue patient home venlafaxine and trazodone regimen. #7. Chronic neuropathy: We will continue patient home gabapentin regimen. #8. Hyperlipidemia: We will continue patient on statin therapy however if LFTs continue to notably rise would hold statin therapy #9. GERD with prior history of gastric ulcers: Given presentation will place onIV PPI #10. Chronic pain syndrome: We will continue patient home gabapentin and [place] home regimen with as needed above baseline pain regimen agents as noted given #1. #11. Former tobacco use: Encourage continued tobacco cessation. #12. Chronic anemia, macrocytic: Admission Hgb 12.8, similar to prior, will continue to trend. #13. DVT prophylaxis: Lovenox. #14. CODE status: Patient SILVINO is his significant other who is present and living will is currently in place. Discussed CODE status at length including difference between FULL code, DNR-CCA and DNR-CC status. Following discussions about the differences in these status, requested Full Code status at this time. Advanced Care Planning Face to Face Time: 16 minutes. Admission Evaluation Time spent evaluating chart, patient history, patient evaluation, care planning and discussion with specialists: 75 minutes. Charges/Coding Visit Charges Inpatient E&M: 49301 Init Hosp L3 Procedures Hospitalists Procedures: 78269 Advncd Care Plan 30 Min 01/14/23 1656 <Electronically signed by Mariann Clancy MD> Cosigner Signature (if applicable): CC: Dr. Mariann Clancy MD; Dr. Shalini Ferrari, DO~ Signed [facility] Work Phone: 1([phone]) 512-391604-03-[address] Orourke [facility] January 14, 2023 4:29pm Note Date/Time January 14, 2023 3:09 pm [facility] Medical Records Department [address] [place] [address] Emergency Department Summary 01/14/23 MR#: [id number] Acct: [id number] Name: ELIGIO MCCABE Rep #:[id number] : 1950 72 From: Joshua Orourke MD PCP: Dr. Shalini Ferrari, DO Status:RE G ER Location: ED HPI History of Present Illness Chief Complaint: Abd Pain Narrative Narrative: Patient was seen recently for nausea and vomiting, he has not had diarrhea but was found to have a normal CT, at that time he was hydrated had unremarkable electrolytes and white count as well as lipase and improved and was sent home with Zofran, he started having nausea again and even his outpatient Zofran did not improve his symptoms. He continues to have nausea and vomiting. No fever or chills he is denying abdominal pain. He does not have any back pain or flankpain. Per his he has been more confused recently. He cannot finish sentences and he gets confused about most things. [facility] Medical History Arthritis Chronic pain Depression GERD (gastroesophageal reflux disease) History of pneumonia History of stomach ulcers Hyperlipidemia Hypertension IBS (irritable bowel syndrome) Kidney stones Neuropathy Severe protein-calorie malnutrition Smoker Syncope Home Medications docusate sodium 100 mg capsule (Colace) 100 mg PO TID PRN Constipation 06/01/21 [History Last Taken Unknown] multivitamin 1 tab PO DAILY supplement 07/01/21 [History Last Taken Unknown] vitamin B complex 1 tab PO DAILY supplement 07/01/21 [History Last Taken Unknown] fluticasone propionate 50 mcg/actuation nasal spray,suspension 2 spray intranasal DAILY #16 grams 10/25/21 [Rx Last Taken Unknown] albuterol sulfate 90 mcg/actuation aerosol inhaler (Ventolin HFA) 2 puff inhalation Q6H #8.5 grams 11/26/21 [Rx Last Taken Unknown] atenolol 50 mg tablet 50 mg PO DAILY #90 tabs 10/29/22 [Rx Last Taken Unknown] cyclobenzaprine 5 mg tablet 5 mg PO TID pain #90 tabs 10/29/22 [Rx Last Taken Unknown] pantoprazole 40 mg tablet,delayed release 40 mg PO QAM #90 tabs 10/29/22 [Rx Last Taken Unknown] trazodone 100 mg tablet 100 mg PO QHS #90 tabs 10/29/22 [Rx Last Taken Unknown] pravastatin 40 mg tablet 40 mg PO QHS #90 tabs 11/15/22 [Rx Last Taken Unknown] gabapentin 600 mg tablet 600 mg PO TID #90 tabs 12/13/22 [Rx Last Taken Unknown] venlafaxine 150 mg capsule,extended release 24 hr 150 mg PO DAILY #90 caps 12/13/22 [Rx Last Taken Unknown] hydrocodone 10 mg-acetaminophen 325 mg tablet 1 tab PO 4X/DAY 1 month #120 tabs 01/10/23 [Rx Last Taken Unknown] glucosamine-chondroitin 250 mg-200 mg tablet (Osteo Bi-Flex) See Rx InstructionsPO .COMPLEX 01/12/23 [History Last Taken Unknown] ondansetron 4 mg disintegrating tablet 4 mg PO Q8H PRN PRN Nausea #10 tabs 01/12/23 [Rx Last Taken Unknown] Allergy/AdvReac Type Severity Reaction Status Date / Time aspirin Allergy Severe bleeding Verified 01/14/23 14:54 Family History Mother Myocardial infarction, Onset Age: 49 Depression Father Hypertension CVA (cerebral vascular accident), Onset Age: 49 Sister Thyroid disorder Uncle ulcers Surgical History History of endoscopy Social History Smoking Status: Former smoker quit date: 07/14/21 alcohol intake: never substance use type: does not use what type of physical activity do you participate in: other details: yard work,house work ROS ROS ED ROS Narrative Past medical history: Reviewed, includes history of hypertension, hypercholesterolemia, GERD Medications: Reviewed Social history: Lives with Review of systems: General: No fever Eyes: No visual changes ENT: No upper airway congestion, normal voice Neck: No neck pain Cardiovascular: No chest pain Respiratory: No shortness of breath or cough Gastrointestinal: As in HPI Genitourinary: No dysuria Musculoskeletal: Denies myalgias no difficulty with ambulation Skin: No rash Neurological: Per he has had some mild confusion. EXAM Physical Exam Narrative Exam Narrative: Physical exam General: He appears somewhat uncomfortable Head: Normocephalic, Atraumatic Eyes: Conjunctiva not pale ENT: Dry mucous membranes Neck: Supple, Nontender, No lymphadenopathy Cardiovascular: Regular rate, Regular rhythm Respiratory: No distress, CTA bilaterally Abdomen: Soft, Nontender, Nondistended. He has bowel sounds. Back: Nontender, Normal Inspection. Negative for: CVA tenderness Extremities: Nontender, No edema Skin: Normal color, No rash Neurological: Alert oriented to person and place but not year or month, Normal Strength, Normal Sensation Const Vital Signs: 01/14/23 14:54 Temperature 97 F L Temperature Source Temporal Pulse Rate 80 Respiratory Rate 14 Blood Pressure 157/91 H Blood Pressure Mean 113 Pulse Ox 100 Oxygen Delivery Method Room Air MDM MDM MDM Narrative Medical decision making narrative: A. Problems addressed Patient comes in with nausea and vomiting he appeared in some distress, he also appeared dehydrated, he also is found to have a low sodium and he is symptomaticwith this confusion which is new. This is likely hypovolemic hyponatremia. I thought about a CAT scan however he had one a few days ago and was normal and the patient has no abdominal pain on palpation. I will admit. B. Amount and/or complexity of the data 1. CBC CMP and lipase interpreted by me I talked to the who is at the bedside 2. I discussed with the hospitalist for admission. C. Risk of complications and/or morbidity Differential diagnosis: I thought about other electrolyte abnormalities, patientdoulises have some slight hypokalemia, he has hyponatremia. He has dehydration. I thought about pancreatitis but lipase is normal. I thought about other abdominal catastrophes however patient had a normal CT and he has no abdominal pain at this time. Lab Data Labs: Laboratory Results - last 24 hr 01/14/23 01/14/23 15:15 15:15 WBC 7.8 RBC 3.78 L Hgb 12.8 L Hct 36.4 L MCV 96.3 H MCH 33.9 H MCHC 35.2 RDW Std Deviation 42.5 RDW Coeff of Issa 12.0 Plt Count 220 MPV 9.4 Immature Gran % (Auto) 0.300 Neut % (Auto) 76.3 H Lymph % (Auto) 12.0 L Faulkner % (Auto) 9.8 Eos % (Auto) 1.3 Baso % (Auto) 0.3 Absolute Neuts (auto) 6.0 Absolute Lymphs (auto) 0.94 Nucleated RBC % 0 Sodium 125 L Potassium 3.4 L Chloride 91 L Carbon Dioxide 28.0 Anion Gap 6 BUN 9 Creatinine 0.94 Estim Creat Clear Calc 74.60 Est GFR (MDRD) Af Amer 101 Est GFR (MDRD) Non-Af 83 BUN/Creatinine Ratio 9.5 L Glucose 113 H Calcium 9.4 Total Bilirubin 0.50 Direct Bilirubin 0.18 AST 153 H ALT 65 H Alkaline Phosphatase 73 Total Protein 7.4 Albumin 3.7 Globulin 3.7 Lipase 170 EKG Initial EKG: Comments: Sinus rhythm with a rate of 74. Normal DE and QTc intervals. No ischemic changes. Interpreted by emergency doctor. Discharge Plan Triage Chief Complaint: Abd Pain ED Provider: Joshua Orourke Dx/Rx/DC Orders Clinical Impression: Acute dehydration, Nausea & vomiting, Hyponatremia Prescriptions: No Action docusate sodium [Colace] 100 mg capsule 100 mg PO TID PRN (Reason: Constipation) fluticasone propionate 50 mcg/actuation spray,suspension 2 spray intranasal DAILY Qty: 16 3RF glucosamine-chondroitin [Osteo Bi-Flex] 250-200 mg tablet See Rx Instructions PO .COMPLEX Rx Instructions: as directed orally; multivitamin Tablet 1 tab PO DAILY vitamin B complex Tablet 1 tab PO DAILY ondansetron [ondansetron] 4 mg tablet,disintegrating 4 mg PO Q8H PRN PRN (Reason: Nausea) Qty: 10 0RF Ventolin HFA 90 mcg/actuation HFA aerosol inhaler 2 puff INHALATION Q6H Qty: 8.5 2RF atenolol 50 mg tablet 50 mg PO DAILY Qty: 90 3RF trazodone 100 mg tablet 100 mg PO QHS Qty: 90 1RF cyclobenzaprine 5 mg tablet 5 mg PO TID Qty: 90 0RF pantoprazole 40 mg tablet,delayed release (DR/EC) 40 mg PO QAM Qty: 90 3RF pravastatin 40 mg tablet 40 mg PO QHS Qty: 90 3RF gabapentin 600 mg tablet 600 mg PO TID Qty: 90 1RF venlafaxine 150 mg capsule,extended release 24hr 150 mg PO DAILY Qty: 90 1RF hydrocodone-acetaminophen 10-325 mg tablet 1 tab PO 4X/DAY 30 Days Qty: 120 0RF Primary Care Provider: Shalini Ferrari Referrals: Shalini Ferrari, [Primary Care Provider] - Disposition Disposition: Acute Care Hospital [facility] What to do if you have Problems For any increased pain, shortness of breath, bleeding, nausea or vomiting, chestpain, or any unexpected problems, contact your Primary Care Provider. Call [facility] ([phone]) or report to the closest Emergency Room. Call 911 if necessary. 01/14/231628 <Electronically signed by Joshua Orourke MD> Cosigner Signature (if applicable): CC: Dr. Shalini Ferrari DO ~ Signed [facility] Work Phone: Consult note Author Sravan Ramirez [facility] Note Date/Time January 04, 2025 6:3 6am [facility] Medical Records Department [address] [place] [address] Pre-Anesthesia Evaluation 01/04/25 0629 MR#: [id number] Acct: [id number] Name: ELIGIO MCCABE Rep #:[id number] : 1950 74 From: Sravan Ramirez MD PCP: Dr. Shalini Ferrari, DO Status:RE G SDC Y Race: C Location: [place] [address] ASA Classification* ASA Classification ASA Classification: 3 Assessment & Plan Anesthesia* Anesthesia Assessment Anesthesia Assessment: Discussed sedation and/or anesthesia options, risks, benefits, and alternatives with patient/parents/legal guardian/POA. Questions invited. The patient/parents/legal guardian/POA seems to understand and agrees to proceedwith anesthesia plan. Reviewed the physical assessment, medical history, allergy history and patient home medications list prior to surgery/procedure/anesthetic and documented any changes. Performed airway and anesthesia risk assessments. Anesthesia Type Anesthesia Type: MAC History Source History Obtained from:: Patient and Chart Anesthesia Focused Assessment* Temperature: 98.3 F Pulse Rate: 58 Blood Pressure: 105/57 Respiratory Rate: 18 Pulse Ox: 100 Oxygen Delivery Method: Nasal Cannula Oxygen Flow Rate (L/min): 3 Airway Assessment Mouth opens: >3 cm Mallampati Score: I Teeth Condition: Dentures (Upper full dentures are out.) and Partial (Lower partials out.) Neck Range of motion (ROM): Limited ROM (Somewhat decreased extension) Focused Labs Anesthesia Preop lab: CBC WBC 8.1 K/mm3 (4.4-11.0) 11/27/24 13:05 11/27/24 RBC 3.29 M/mm3 (4.6-6.2) L 11/27/24 13:05 11/27/24 Hgb 11.3 g/dL (13.0-16.5) L 11/27/24 13:05 5 Hct 36.2 % (40-54) L 11/27/24 13:05 11/27/24 Plt Count 263 K/mm3 (150-450) 11/27/24 13:05 11/27/24 CHEMISTRY Potassium 4.4 mmol/L (3.5-5.1) 11/27/24 13:05 11/27/24 Sodium 137 mmol/L (136-145) 11/27/24 13:05 11/27/24 Magnesium 2.4 mg/dL (1.6-2.6) 12/03/23 19:44 12/03/23 Phosphorus 1.3 mg/dL (2.5-4.9) L 12/08/23 04:00 12/08/23 BUN 14 mg/dL (7-18) 11/27/24 13:05 11/27/24 Creatinine 1.35 mg/dL (0.70-1.30) H 11/27/24 13:05 Glucose 102 mg/dL (74-106) 11/27/24 13:05 11/27/24 POC Glucose 113 mg/dL (74-106) H 12/04/23 11:21 12/04/23 TSH 1.81 uIU/mL (0.358-3.74) 01/13/24 14:27 COAG PT 15.8 SECONDS (11.7-14.9) H 05/19/21 05:20 08/0 04/03 Pre-Assessment Diagnosis/Proposed Procedure Planned Operative Procedure(s): EGD , Colonoscopy Anesthesia History Anesthesia History - clinical cytogeneticist: Anesthesia History - clinical cytogeneticist Hx Hospitalization No 12/30/24 13:26 Any Problems With Anesthesia No 12/30/24 13:26 Cholinesterase deficiency No 12/30/24 13:26 You/Your Family Experience No 12/30/24 13:26 fever (hyperthermia) with Relationship Recent Exposure to Contagious No 01/04/25 05:53 Disease Does patient have nerve No 12/30/24 13:26 stimulator Patient instructed to have device shut off --Does patient have Pacemaker No 01/04/25 05:53 or ICD? When Was Last Pacemaker Check QUESTION #4 FULL TEXT: You/Your Family Experience fever (hyperthermia) with Anesthesia Last Oral Intake Last Oral intake: Last Oral Intake NPO since 02:30 01/04/25 05:53 Meds taken in AM with sips of Yes 01/04/25 05:53 water? Meds patient instructed to see medlist 01/04/25 05:53 take am of surgery Any additional information?: Yes NPO since: 02:30 ( patient finished patient finished prep at 2:30 AM) PONV PONV - clinical cytogeneticist: PONV - clinical cytogeneticist Female No 12/30/24 13:26 HX of Motion Sickness No 12/30/24 13:26 HX of N/V After Surgery No 12/30/24 13:26 Non-Smoker Yes 12/30/24 13:26 Duration of Surgery greater No 12/30/24 13:26 than 60 minutes Number of Risk Factors 1 12/30/24 13:26 PONV Score Low Risk 12/30/24 13:26 Height & Weight Height & Weight: Anesthesia: Height & Weight Height 6 ft 01/04/25 05:53 Weight: 87.8 kg 01/04/25 05:53 Body Mass Index (BMI) 26.2 01/04/25 05:53 Respiratory Assessment Respiratory Assessment - clinical cytogeneticist: Respiratory Tract Infection Hx - clinical cytogeneticist Hx Respiratory Tract Infection No 12/30/24 13:26 STOP Sleep Apnea STOP Sleep Apnea - clinical cytogeneticist: STOP Sleep Apnea - clinical cytogeneticist Hx Hypertension Yes 12/30/24 13:26 Hx Sleep Apnea Yes 12/30/24 13:26 CPAP No 12/30/24 13:26 BIPAP Yes 12/30/24 13:26 Do you snore loudly (louder than talking or can be heard Do you often feel tired/ fatigued/ sleepy during daytime? Has anyone observed you stop breathing during sleep? STOP Results Positive 12/30/24 13:26 QUESTION #5 FULL TEXT : Do you snore loudly (louder than talking or can be heard through closed doors)? Tobacco Use History Tobacco Use History - clinical cytogeneticist: Tobacco Use History - clinical cytogeneticist Tobacco Use Smoking Status Former smoker 12/30/24 13:26 Hx Tobacco Use Yes 12/30/24 13:26 Years Smoking Packs Smoked per Day Smoking Cessation Date was Yes - quit smoking within 15 12/30/24 13:26 within the last 15 years years Hx Smoking Cessation Date 09/13/22 12/30/24 13:26 Hx Smoking Cessation No 12/30/24 13:26 Counseling Hematologic Medial History Hematologic Hx - clinical cytogeneticist: Hematologic Medical Hx - director of medical review Hx of Blood Transfusion Yes 12/30/24 13:26 Hx of Transfusion in last 3 No 12/30/24 13:26 Months Date of Last Transfusion (if within last 3 months) Ever experience any problems No 12/30/24 13:26 with transfusion(s)? Specify any problems Hx of Preganancy in last 3 N/A 12/30/24 13:26 Months Nurse Filling Out Transfusion NBUCHER 12/30/24 13:26 & Questions: Date: 12/30/24 12/30/24 13:26 Time: 13:12/30/24 13:26 Patient unable to answer at this time (ie. confused, unrespo /Reproduction History /Reproductive History - clinical cytogeneticist: /Reproductive Hx- clinical cytogeneticist Hx Now Gestational Age (in weeks): EDC: Hx Hx Para Hx Section SAB No 12/30/24 13:26 [facility] Medical History BiPAP (biphasic positive airway pressure) dependence Sleep apnea Bruising Enlarged prostate Anemia Esophageal ulcer with bleeding Drop foot gait Wears glasses Wears dentures Forgetfulness Arthritis High cholesterol Back pain Difficulty chewing History of hiatal hernia History of GI bleed Former smoker On home oxygen therapy COPD (chronic obstructive pulmonary disease) Shortness of breath on exertion Cardiology follow-up encounter History of stress test History of echocardiogram Overdose Severe protein-calorie malnutrition Pneumonia Syncope Depression Neuropathy Community acquired pneumonia GERD (gastroesophageal reflux disease) IBS (irritable bowel syndrome) History of stomach ulcers Arthritis Chronic pain Hyperlipidemia Hypertension Home Medications ?Medication ?Instructions ?Recorded ?Last Taken ?Type multivitamin 1 tab PO DAILY supplement 01/01/24 History glucosamine-chondroitin 250 mg-200 2 tab PO DAILY 11/0501/01/24 History mg tablet (Osteo Bi-Flex) docusate sodium 100 mg capsule 100 mg PO DAILY Constip ation 08/01/23 01/01/24 History (Colace) albuterol sulfate 90 mcg/actuation See Rx Instructions .Route 10/22/23 Unknown Rx aerosol inhaler .COMPLEX #8.5 grams rollator walker with seat #1 ea 11/05/23 Unknown Rx fluticasone fur. 200 mcg-umeclid 1 ea inhalation QDAY #3 ea 02/14/24 01/04/25 Rx 62.5 mcg-vilant 25 mcg inhalat.powder (Trelegy Ellipta) fluticasone propionate 50 2 spray intranasal DAILY #3 ea 02/14/24 Unknown Rx mcg/actuation nasal spray,suspension atenolol 50 mg tablet 50 mg PO DAILY #90 tabs 06/0601/04/25 Rx pravastatin 40 mg tablet 40 mg PO QHS #90 tabs Unknown Rx pantoprazole 40 mg tablet,delayed 40 mg PO BID #60 tab s 06/01/24 01/04/25 Rx release trazodone 100 mg tablet 100 mg PO QHS #90 tabs 10/19 Unknown Rx dapsone 100 mg tablet 100 mg PO QDAY #30 tabs 05/07 Unknown Rx B-complex with vitamin C 1 cap PO QDAY 11/09/24 Unkno wn History ascorbic acid (vitamin C) 1,000 mg 1 g PO QDAY 5 Unknown History capsule ipratropium 0.5 mg-albuterol 3 mg 3 ml inhalation COURTNEY Y shortness of 12/30/24 Unknown History (2.5 mg base)/3 mL nebulization breath or wheezing soln Allergy/AdvReac Type Severity Reaction Status Date / Time aspirin Allergy Severe bleeding Verified 01/04/25 05:45 Family History Mother Myocardial infarction, Onset Age: 49 Depression Father Hypertension CVA (cerebral vascular accident), Onset Age: 49 Sister Thyroid disorder Uncle ulcers Surgical History History of transurethral resection of prostate (06/03/24) History of bronchoscopy History of esophagogastroduodenoscopy (EGD) Hx of colonoscopy History of thoracic surgery Social History household members: spouse and significant other Smoking Status: Former smoker quit date: 07/14/21 alcohol intake: never substance use type: does not use what type of physical activity do you participate in: other details: yard work,house work Review of Systems (Anesthesia) ROS Narrative System reviewed and no additional complaints, except as documented. 01/04/25 0636 <Electronically signed by Sravan roman MD> Date _ Sravan James Broussard Signature: Date CC: ~ Signed [facility] Work Phone: Consult note Author Cal Benjamin [facility] Note Date/Time January 04, 2025 7:4 4am [facility] Medical Records Department [address] [place] [id number] Anesthesia Postop Eval I 01/04/25742 MR#: [id number] Acct: [id number] Name: ELIGIO MCCABE Rep #:[id number] : 1950 74 From: Cal Benjamin PCP: Dr. Shalini Ferrari, DO Status:RE G SD Y Race: C Location: [place] [address] Anesthesia: Postop Eval I Current Vital Signs Temperature: 97 F Pulse Rate: 49 Blood Pressure: 109/55 Respiratory Rate: 14 Pulse Ox: 98 Oxygen Delivery Method: Nasal Cannula Oxygen Flow Rate (L/min): 3 Assessment Airway patent: Yes Spontaneous unlabored respirations: Yes Mental status: Asleep nausea: No Vomiting: No Anesthesia Complication: No Fluid Hydration Crystalloid volume administer (ml): 65 Total IV fluid infused: 65 Progress Note Anesthesia document: Postop Eval 1 completed: Yes 01/04/25743 <Electronically signed by Cal Benjamin > Date _ Cal Broussard Signature: Date CC: ~ Signed [facility] Work Phone: Discharge summary Author Dr. Martinez [facility] January 16, 2023 6:03pm Note Date/Time January 16, 2023 6:00 pm [facility] Medical Records Department [address] [place] [address] Instructions for Home/Discharge Instructions 01/16/23 1758 MR#: [id number] Acct: [id number] Name: ELIGIO MCCABE Rep #:[id number] : 1950 72 From: Trent skelton MD PCP: Dr. Shalini Ferrari, DO Status:AD M IN Discharge Instructions Diet Discharge Diet: Low fat / Low cholesterol Activity Discharge Activity: Return to Normal Activity Dressing / Incision Call your doctor if you observe: Fever of 101 or Higher, Shortness of breath, Dizziness, Fainting spells, Swelling in the ankles, Chest pain and Increased palpitations (irregular heartbeat) Follow Up Care Test Results: Test results from this visit will be discussed in further detail at your follow- up appointment, if applicable. Discharge Plan Admission Admit Date/Time: 01/14/23 16:30 Attending Provider: Trent Martinez Primary Care Provider: Shalini Ferrari Consulting Providers: Mariann Clancy Instructions Additional Instructions / Restrictions: Follow-up with your PCP in 3 to 5 days to monitor your white blood cell count asit did climb today to 15.5. Discharge Orders/Prescriptions Prescriptions: New levofloxacin 750 mg tablet 750 mg PO DAILY Qty: 7 0RF Continued docusate sodium [Colace] 100 mg capsule 100 mg PO TID PRN (Reason: Constipation) fluticasone propionate 50 mcg/actuation spray,suspension 2 spray intranasal DAILY Qty: 16 3RF glucosamine-chondroitin [Osteo Bi-Flex] 250-200 mg tablet See Rx Instructions PO .COMPLEX Rx Instructions: as directed orally; multivitamin Tablet 1 tab PO DAILY vitamin B complex Tablet 1 tab PO DAILY ondansetron 4 mg tablet,disintegrating 4 mg PO Q8H PRN PRN (Reason: Nausea) Qty: 10 0RF meloxicam 15 mg tablet 15 mg PO DAILY Ventolin HFA 90 mcg/actuation HFA aerosol inhaler 2 puff INHALATION Q6H Qty: 8.5 2RF atenolol 50 mg tablet 50 mg PO DAILY Qty: 90 3RF trazodone 100 mg tablet 100 mg PO QHS Qty: 90 1RF cyclobenzaprine 5 mg tablet 5 mg PO TID Qty: 90 0RF pantoprazole 40 mg tablet,delayed release (DR/EC) 40 mg PO QAM Qty: 90 3RF pravastatin 40 mg tablet 40 mg PO QHS Qty: 90 3RF gabapentin 600 mg tablet 600 mg PO TID Qty: 90 1RF venlafaxine 150 mg capsule,extended release 24hr 150 mg PO DAILY Qty: 90 1RF hydrocodone-acetaminophen 10-325 mg tablet 1 tab PO 4X/DAY 30 Days Qty: 120 0RF Referrals / Follow Up: Shalini Ferrari DO [Primary Care Provider] - Within 1 Week Disposition Disposition (needs filled in before D/C Order can be placed): Home, Self Care 01/16/231802<Electronically signed by Trent Martinez MD>Trent Martinez MD CC: Dr. Mariann Clancy MD; Dr. Shalini Ferrari DO ~ Signed [facility] Work Phone: Discharge summary Author Dr. Martinez [facility] January 16, 2023 6:07pm Note Date/Time January 16, 2023 6:07 pm [facility] Medical Records Department [address] [place] [address] Discharge Summary 01/16/231802 MR#: [id number] Acct: [id number] Name: ELIGIO MCCABE Rep #:[id number] : 1950 72 From: Trent skelton MD PCP: Dr. Shalini Ferrari DO Status:AD M IN [facility] Prov[facility] Date of Admission: 01/14/23 Primary Care Physician: Dr. Shalini Ferrari DO Reason For Visit: GASTROENTERITIS Diagnosis Discharge Diagnosis (1) Nausea and vomiting: Status: Acute Code(s): R11.2 - Nausea with vomiting, unspecified Medications at Discharge Home Medications docusate sodium 100 mg capsule (Colace) 100 mg PO TID PRN Constipation 06/01/21 multivitamin 1 tab PO DAILY supplement 07/01/21 vitamin B complex 1 tab PO DAILY supplement 07/01/21 fluticasone propionate 50 mcg/actuation nasal spray,suspension 2 spray intranasal DAILY #16 grams 10/25/21 albuterol sulfate 90 mcg/actuation aerosol inhaler (Ventolin HFA) 2 puff inhalation Q6H #8.5 grams 11/26/21 atenolol 50 mg tablet 50 mg PO DAILY #90 tabs 10/29/22 cyclobenzaprine 5 mg tablet 5 mg PO TID pain #90 tabs 10/29/22 pantoprazole 40 mg tablet,delayed release 40 mg PO QAM #90 tabs 10/29/22 trazodone 100 mg tablet 100 mg PO QHS #90 tabs 10/29/22 pravastatin 40 mg tablet 40 mg PO QHS #90 tabs 11/15/22 gabapentin 600 mg tablet 600 mg PO TID #90 tabs 12/13/22 venlafaxine 150 mg capsule,extended release 24 hr 150 mg PO DAILY #90 caps 12/13/22 hydrocodone 10 mg-acetaminophen 325 mg tablet 1 tab PO 4X/DAY 1 month #120 tabs 01/10/23 glucosamine-chondroitin 250 mg-200 mg tablet (Osteo Bi-Flex) See Rx InstructionsPO .COMPLEX 01/12/23 ondansetron 4 mg disintegrating tablet 4 mg PO Q8H PRN PRN Nausea #10 tabs 01/12/23 meloxicam 15 mg tablet 15 mg PO DAILY . 01/14/23 levofloxacin 750 mg tablet 750 mg PO DAILY #7 tabs 01/16/23 Hospital Course Operations None Procedures None Summary of Care Provided Minutes Spent on Discharge: 38 Hospital Course: Per HPI: The patient is a 72 y/o M w/ PMHx: Chronic macrocytic anemia, GERD w/ Hx Gastric ulcers, Depression and Anxiety, HLD, COPD, Former tobacco use, Chronic pain syndrome who presents to the [facility] ED on 01/14/23 with history of recent onset persistent nausea, emesis and loose stools with generalized abdominal discomfort starting over the last 5 to 7 days with watery diarrhea with self administration initially of Imodium with no marked improvement with decreased oral intake and inability to keep anything down given intractable nausea and emesis with initial ED evaluation 01/12/23 with no obvious evidence of UTI, CBC not marked appearing and CMP appropriate at that time with CT abdomen pelvis with no acute findings with clinical improvement per note with discharge on Zofran and instruction to slowly advance diet with PCP follow- up however patient now represents to the [facility] ED on 01/14/23 with ongoing persistent nausea and emesis although resolution of diarrhea since prior ED evaluation with no fevers or chills but given unable to maintain appropriate hydration prompted family to bring patient back in for evaluation. Patient has had confusion as associated which occurred prior also which is why family had brought him in originally with his symptoms but improved with ED interventions and has worsenedagain with no inability to maintain any oral intake.? In the ED on evaluation patient with no abdominal pain and significant other who is present denies him having marking abdominal symptoms otherwise.? She does report that he has had significant ongoing hiccups for the last 3 days which she has currently upon evaluation.? He does report that he has had some room spinning sensation and hasfelt less stable on his feet.? Work-up in the ED included T97, heart rate 80, BP157/91, respiratory rate 14, 100% room air, CBC with WC 7.8, hemoglobin 12.8, MCV 96.3, platelet 220 without marked shift, CMP with sodium 125, potassium 3.4,chloride 91, BUN/creatinine 9/0.94, glucose 113, AST/ALT 153/65, lipase 170, UA pending upon requested evaluation of patient.? In the ED patient administered Zofran 4 mg IV x2 as well as morphine 4 mg IV x1 and 1 L normal saline. Hospital Course: 1. Acute viral gastroenteritis possibly due to COVID/elevated LFTs ? Unclear as to why respiratory panel and a COVID panel were obtained however COVID did come back positive ? Enteric pathogen and C. difficile panel are negative ? He does not appear to be having significant diarrhea at the moment ? Encourage p.o. intake ? Will not treat the positive COVID test as he is not having any oxygen issues ? Magnesium is improved we will continue to monitor electrolytes and replace as necessary ? LFTs appear to be improving ?When I went back in today to tell him that his test did come back negative and that his nausea, vomiting, diarrhea were likely due to COVID he requested to be discharged home. I explained to him that he did have a bump in his white count today which is possibly indicative to a bacterial infection but he felt that he was doing fine and would like to go home today. I requested that if he were to spike a fever or get worse to come back to the hospital otherwise to follow-up with his PCP in 3 to 5 days. He does have a little bit of a productive cough and review of the CT of his abdomen pelvis was obtained on 01/12/2023, his lung bases look clear however bacterial superinfection with COVID is possible so we will provide him with Levaquin for 7 days on discharge to take once daily. He expressed understanding of the risks and benefits of going home and he still wants to go home today. 2. COPD no exacerbation ? Continue with inhalers ? Stable 3. HTN/HLD ? Blood pressure stable ? Continue with his home blood pressure and cholesterol medications 4. GERD ? Stable ? Continue with PPI 5. Anxiety/depression/chronic neuropathy with chronic pain ? Stable ? Continue with his home medications Weight / BMI Weight Weight: 170 lb 3.15 oz Body Mass Index (BMI) 22.5 ABG / Lab / Microbiology Data Result Diagrams: 01/16/23 06:05 01/16/23 06:05 Laboratory: Laboratory Results - last 24 hr 01/16/23 06:05: WBC 15.5 H, RBC 3.45 L, Hgb 11.4 L, Hct 34.0 L, MCV 98.6 H, MCH 33.0 H, MCHC 33.5, RDW Std Deviation 44.4 H, RDW Coeff of Issa 12.4, Plt Count 235, MPV 9.6, Immature Gran % (Auto) 0.300, Neut % (Auto) 87.8 H, Lymph % (Auto)4.0 L, Faulkner % (Auto) 7.5, Eos % (Auto) 0.1, Baso % (Auto) 0.3, Absolute Neuts (auto) 13.6 H, Absolute Lymphs (auto) 0.62 L, Nucleated RBC % 0, Macrocytosis 1+ 01/16/23 06:05: Sodium 141, Potassium 3.5, Chloride 109 H, Carbon Dioxide 25.0, Anion Gap 7, BUN 8, Creatinine 0.73, Estim Creat Clear Calc 72.91, Est GFR (MDRD) Af Amer 136, Est GFR (MDRD) Non-Af 112, BUN/Creatinine Ratio 11.0, Glucose 112 H, Calcium 8.5 Microbiology: Microbiology 01/15/23 10:20 Stool C. difficile GDH Antigen & Toxins - Final 01/15/23 10:20 Stool C. difficile DNA Amplification - Final 01/15/23 16:20 Stool Enteric Bacteriology - Final 01/14/23 20:07 Mucosa - Nasopharyngeal Respiratory Panel (PCR) - Final D/C Instructions Discharge Diet: Low fat / Low cholesterol Call your doctor if you observe: Fever of 101 or Higher, Shortness of breath, Dizziness, Fainting spells, Swelling in the ankles, Chest pain and Increased palpitations (irregular heartbeat) Meaningful Use Info Meaningful Use Diagnoses (Choose all that apply): None applicable Discharge Plan Admission Admit Date/Time: 01/14/23 16:30 Attending Provider: Trent Martinez Primary Care Provider: Shalini Ferrari Consulting Providers: Mariann Clancy Instructions Additional Instructions / Restrictions: Follow-up with your PCP in 3 to 5 days to monitor your white blood cell count asit did climb today to 15.5. Discharge Orders/Prescriptions Prescriptions: New levofloxacin 750 mg tablet 750 mg PO DAILY Qty: 7 0RF Continued docusate sodium [Colace] 100 mg capsule 100 mg PO TID PRN (Reason: Constipation) fluticasone propionate 50 mcg/actuation spray,suspension 2 spray intranasal DAILY Qty: 16 3RF glucosamine-chondroitin [Osteo Bi-Flex] 250-200 mg tablet See Rx Instructions PO .COMPLEX Rx Instructions: as directed orally; multivitamin Tablet 1 tab PO DAILY vitamin B complex Tablet 1 tab PO DAILY ondansetron 4 mg tablet,disintegrating 4 mg PO Q8H PRN PRN (Reason: Nausea) Qty: 10 0RF meloxicam 15 mg tablet 15 mg PO DAILY Ventolin HFA 90 mcg/actuation HFA aerosol inhaler 2 puff INHALATION Q6H Qty: 8.5 2RF atenolol 50 mg tablet 50 mg PO DAILY Qty: 90 3RF trazodone 100 mg tablet 100 mg PO QHS Qty: 90 1RF cyclobenzaprine 5 mg tablet 5 mg PO TID Qty: 90 0RF pantoprazole 40 mg tablet,delayed release (DR/EC) 40 mg PO QAM Qty: 90 3RF pravastatin 40 mg tablet 40 mg PO QHS Qty: 90 3RF gabapentin 600 mg tablet 600 mg PO TID Qty: 90 1RF venlafaxine 150 mg capsule,extended release 24hr 150 mg PO DAILY Qty: 90 1RF hydrocodone-acetaminophen 10-325 mg tablet 1 tab PO 4X/DAY 30 Days Qty: 120 0RF Referrals / Follow Up: Shalini Ferrari DO [Primary Care Provider] - Within 1 Week Disposition Disposition (needs filled in before D/C Order can be placed): Home, Self Care Charges/Coding Visit Charges Inpatient E&M: 90097 Disch Hosp >30min 01/16/231806 <Electronically signed by Trent Martinez MD> Cosigner Signature (if applicable): CC: Dr. Shalini Ferrari DO; Dr. 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 [facility] Work Phone: Evaluation note* Diagnosis Onset Date Resolution Status History of empyema of pleura acute Macrocytic anemia acute Opioid dependence with current use acute COPD (chronic obstructive pulmonary disease) chronic Macrocytic anemia acute B12 deficiency noneactive B12 deficiency noneactive Overdose acute [facility] Work Phone: Evaluation note* Diagnosis Onset Date Resolution Status History of empyema of pleura acute Macrocytic anemia acute Opioid dependence with current use acute COPD (chronic obstructive pulmonary disease) chronic Macrocytic anemia acute B12 deficiency noneactive B12 deficiency noneactive Overdose acute Nausea and vomiting acute [facility] Work Phone: Evaluation note* Diagnosis Onset Date Resolution Status Overdose acute Acute on chronic alteration in mental status acute Elevated liver enzymes acute Macrocytic anemia acute Opioid dependence with current use acute COPD (chronic obstructive pulmonary disease) chronic 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 Acute on chronic alteration in mental status acute COPD (chronic obstructive pulmonary disease) chronic Smoking greater than 40 pack years chronic Macrocytic anemia acute Opioid dependence with current use acute Hypertension chronic 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 Acute on chronic alteration in mental status acute COPD (chronic obstructive pulmonary disease) chronic Smoking greater than 40 pack years chronic 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 [facility] Work Phone: Evaluation note* Diagnosis Onset Date Resolution Status Acute on chronic alteration in mental status acute COPD (chronic obstructive pulmonary disease) chronic Smoking greater than 40 pack years chronic Macrocytic anemia acute Opioid dependence with current use acute Hypertension chronic 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 Acute on chronic alteration in mental status acute COPD (chronic obstructive pulmonary disease) chronic Smoking greater than 40 pack years chronic 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 Macrocytic anemia acute Acute on chronic alteration in mental status acute Foot drop acute Opioid dependence with current use acute COPD (chronic obstructive pulmonary disease) chronic 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 [facility] Work Phone: Evaluation note* Diagnosis Onset Date Resolution Status Acute on chronic alteration in mental status acute Foot drop acute Opioid dependence with current use acute COPD (chronic obstructive pulmonary disease) chronic 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 Macrocytic anemia acute History of empyema of pleura acute Nicotine dependence, cigarettes, in remission acute COPD (chronic obstructive pulmonary disease) chronic [facility] Work Phone: Evaluation note* Diagnosis Onset Date Resolution Status Acute on chronic alteration in mental status acute Foot drop acute Opioid dependence with current use acute COPD (chronic obstructive pulmonary disease) chronic 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 Macrocytic anemia acute History of empyema of pleura acute Nicotine dependence, cigarettes, in remission acute COPD (chronic obstructive pulmonary disease) chronic Foot drop acute Macrocytic anemia acute Opioid dependence with current use acute COPD (chronic obstructive pulmonary disease) chronic History of stomach ulcers ch ronic Hypertension chronic [facility] Work Phone: Evaluation note* Diagnosis Onset Date Resolution Status Macrocytic anemia acute History of empyema of pleura acute Nicotine dependence, cigarettes, in remission acute COPD (chronic obstructive pulmonary disease) chronic Foot drop acute Macrocytic anemia acute Opioid dependence with current use acute COPD (chronic obstructive pulmonary disease) chronic History of stomach ulcers ch ronic Hypertension chronic Acute on chronic alteration in mental status acute Shortness of breath on exertion acute GERD (gastroesophageal reflux disease) chronic Left lower quadrant pain acu te Weight loss acute [facility] Work Phone: Evaluation note* Diagnosis Onset Date Resolution Status Macrocytic anemia acute History of empyema of pleura acute Nicotine dependence, cigarettes, in remission acute COPD (chronic obstructive pulmonary disease) chronic Foot drop acute Macrocytic anemia acute Opioid dependence with current use acute COPD (chronic obstructive pulmonary disease) chronic History of stomach ulcers ch ronic Hypertension chronic Acute on chronic alteration in mental status acute Shortness of breath on exertion acute GERD (gastroesophageal reflux disease) chronic Left lower quadrant pain acu te Weight loss acute Daytime hypersomnia acute COPD (chronic obstructive pulmonary disease) chronic Hypoxia [facility] Work Phone: Evaluation note* Diagnosis Onset Date Resolution Status History of empyema of pleura acute Nicotine dependence, cigarettes, in remission acute COPD (chronic obstructive pulmonary disease) chronic Foot drop acute Macrocytic anemia acute Opioid dependence with current use acute COPD (chronic obstructive pulmonary disease) chronic History of stomach ulcers ch ronic Hypertension chronic Acute on chronic alteration in mental status acute Shortness of breath on exertion acute GERD (gastroesophageal reflux disease) chronic Left lower quadrant pain acu te Weight loss acute Daytime hypersomnia acute COPD (chronic obstructive pulmonary disease) chronic Hypoxia chronic Orthostatic hypotension acut e Daytime hypersomnia acute Opioid dependence with current use acute Weight loss acute Chronic pain chronic COPD (chronic obstructive pulmonary disease) chronic Depression chronic Hypertension [facility] Work Phone: Evaluation note* Diagnosis Onset Date Resolution Status Foot drop acute Macrocytic anemia acute Opioid dependence with current use acute COPD (chronic obstructive pulmonary disease) chronic History of stomach ulcers ch ronic Hypertension chronic Acute on chronic alteration in mental status acute Shortness of breath on exertion acute GERD (gastroesophageal reflux disease) chronic Left lower quadrant pain acu te Weight loss acute Daytime hypersomnia acute COPD (chronic obstructive pulmonary disease) chronic Hypoxia chronic Orthostatic hypotension acut e Daytime hypersomnia acute Opioid dependence with current use acute Weight loss acute Chronic pain chronic COPD (chronic obstructive pulmonary disease) chronic Depression chronic Hypertension chronic NELSON (acute kidney injury) ac ladarius [facility] Work Phone: Evaluation note* Diagnosis Onset Date Resolution Status Foot drop acute Macrocytic anemia acute Opioid dependence with current use acute COPD (chronic obstructive pulmonary disease) chronic History of stomach ulcers ch ronic Hypertension chronic Acute on chronic alteration in mental status acute Shortness of breath on exertion acute GERD (gastroesophageal reflux disease) chronic Left lower quadrant pain acu te Weight loss acute Daytime hypersomnia acute COPD (chronic obstructive pulmonary disease) chronic Hypoxia chronic Orthostatic hypotension acut e Daytime hypersomnia acute Opioid dependence with current use acute Weight loss acute Chronic pain chronic COPD (chronic obstructive pulmonary disease) chronic Depression chronic Hypertension chronic NELSON (acute kidney injury) ac ladarius Hypokalemia acute Hypertension chronic [facility] Work Phone: Evaluation note* Diagnosis Onset Date Resolution Status Acute on chronic alteration in mental status acute Shortness of breath on exertion acute GERD (gastroesophageal reflux disease) chronic Left lower quadrant pain acu te Weight loss acute Daytime hypersomnia acute COPD (chronic obstructive pulmonary disease) chronic Hypoxia chronic Orthostatic hypotension acut e Daytime hypersomnia acute Opioid dependence with current use acute Weight loss acute Chronic pain chronic COPD (chronic obstructive pulmonary disease) chronic Depression chronic NELSON (acute kidney injury) re solved Hypokalemia resolved [facility] Work Phone: Evaluation note* Diagnosis Onset Date Resolution Status Left lower quadrant pain acu te Weight loss acute Daytime hypersomnia acute COPD (chronic obstructive pulmonary disease) chronic Hypoxia chronic Orthostatic hypotension acut e Daytime hypersomnia acute Opioid dependence with current use acute Weight loss acute Chronic pain chronic COPD (chronic obstructive pulmonary disease) chronic Depression chronic NELSON (acute kidney injury) re solved Hypokalemia resolved [facility] Work Phone: Evaluation note* Diagnosis Onset Date Resolution Status Left lower quadrant pain acu te Weight loss acute Daytime hypersomnia acute COPD (chronic obstructive pulmonary disease) chronic Hypoxia chronic Orthostatic hypotension acut e Daytime hypersomnia acute Opioid dependence with current use acute Weight loss acute Chronic pain chronic COPD (chronic obstructive pulmonary disease) chronic Depression chronic NELSON (acute kidney injury) re solved Hypokalemia resolved Macrocytic anemia acute Weight loss acute [facility] Work Phone: Evaluation note* Diagnosis Urine retention- Primary Retention of urine, unspecified [facility] Onset Date Resolution Status Daytime hypersomnia acute COPD (chronic obstructive pulmonary disease) chronic Hypoxia chronic Orthostatic hypotension acut e Daytime hypersomnia acute Opioid dependence with current use acute Weight loss acute Chronic pain chronic COPD (chronic obstructive pulmonary disease) chronic Depression chronic NELSON (acute kidney injury) re solved Hypokalemia resolved Macrocytic anemia acute Weight loss acute Lung nodule acute COPD (chronic obstructive pulmonary disease) chronic Hypoxia chronic [facility] Work Phone: Evaluation note* Diagnosis Onset Date Resolution Status Daytime hypersomnia acute COPD (chronic obstructive pulmonary disease) chronic Hypoxia chronic Orthostatic hypotension acut e Daytime hypersomnia acute Opioid dependence with current use acute Weight loss acute Chronic pain chronic COPD (chronic obstructive pulmonary disease) chronic Depression chronic NELSON (acute kidney injury) re solved Hypokalemia resolved Macrocytic anemia acute Weight loss acute Lung nodule acute COPD (chronic obstructive pulmonary disease) chronic Hypoxia chronic Macrocytic anemia acute Peptic ulcer of stomach acut e COPD (chronic obstructive pulmonary disease) chronic NELSON (acute kidney injury) re solved [facility] Work Phone: Evaluation note* Diagnosis Urine retention- Primary Retention of urine, unspecified [facility] Urine retention- Primary Retention of urine, unspecified [facility] Diagnosis Urine retention- Primary Retention of urine, unspecified BPH with obstruction/lower urinary tract symptoms Hypertrophy of prostate with urinary obstruction and other lower urinary tract symptoms (LUTS) [facility] Diagnosis BPH with obstruction/lower urinary tract symptoms- Primary Hypertrophy of prostate with urinary obstruction and other lower urinary tract symptoms (LUTS) Benign prostatic hyperplasia with urinary retention [facility] Diagnosis Pre-op exam- Primary Preoperative examination, unspecified Benign prostatic hyperplasia with urinary retention Chronic obstructive pulmonary disease, unspecified COPD type (HCC) Hypertension, unspecified type Hyperlipidemia, unspecified hyperlipidemia type Gastric ulcer without hemorrhage or perforation, unspecified chronicity Benign prostatic hyperplasia with urinary retention * Assessment & Plan Note - Michele Easley APRN.CNP - 05/20/2024 1:49 PM EDT Associated Problem(s): Gastric ulcer, unspecified as acute or chronic, without hemorrhage or perforation Protonix BID- instructed to continue as prescribed No abdominal pain, n/v, or hematemesis * Assessment & Plan Note - Michele Easley APRN.CNP - 05/19/2024 3:19 PM EDT Associated Problem(s): Hyperlipidemia, unspecified Controlled Pravastatin- instructed to continue as prescribed * Assessment & Plan Note - Michele Easley APRN.CNP - 05/19/2024 3:18 PM EDT Associated Problem(s): Hypertension Controlled Atenolol- instructed to continue morning of surgery * Assessment & Plan Note - Michele Easley APRN.CNP - 05/19/2024 3:18 PM EDT Associated Problem(s): Chronic obstructive pulmonary disease, unspecified (HCC) On 3L NC Albuterol inhaler- instructed to continue if needed and bring on day of surgery Budesonide enteric- instructed to continue as prescribed Duoneb- instructed to continue if needed Trelegy- instructed to continue as prescribed Uses albuterol inhaler weekly No ED visits or hospitalizations for resp problems within the last 6 months * Assessment & Plan Note - Michele Easley APRN.CNP - 05/19/2024 3:16 PM EDT Associated Problem(s): Benign prostatic hyperplasia with urinary retention Surgery scheduled 06/03/[address] Valdes * Assessment & Plan Note - Michele Easley APRN.CNP - 05/19/2024 3:16 PM EDT Associated Problem(s): Pre-op exam See note for medical conditions which may affect lexus-operative course that were addressed at today's visit. [facility] Pre-op exam- Primary Preoperative examination, unspecified Benign prostatic hyperplasia with urinary retention Chronic obstructive pulmonary disease, unspecified COPD type (HCC) Hypertension, unspecified type Hyperlipidemia, unspecified hyperlipidemia type Gastric ulcer without hemorrhage or perforation, unspecified chronicity Benign prostatic hyperplasia with urinary retention- Primary Encounter for screening for malignant neoplasm of prostate Special screening for malignant neoplasm of prostate [facility] Diagnosis Pre-op exam- Primary Preoperative examination, unspecified Benign prostatic hyperplasia with urinary retention Chronic obstructive pulmonary disease, unspecified COPD type (HCC) Hypertension, unspecified type Hyperlipidemia, unspecified hyperlipidemia type Gastric ulcer without hemorrhage or perforation, unspecified chronicity Benign prostatic hyperplasia with urinary retention- Primary [facility] Author Robson Moreira [facility] October 09, 2023 10:32am Note Date/Time October 09, 2023 10:32am [facility] Medical Records Department [address] [place] [place] [address] History & Physical Exam 10/09/23 1030 MR#: [id number] Acct: [id number] Name: ELIGIO MCCABE Rep #:[id number] : 1950 73 From: Robson gillis MD PCP: Dr. Shalini Ferrari, DO Status:[facility] Location: [place] [address] History and Physical Date of Admission: 10/09/23 Intake Vital Signs 09/13/2310:54 09/26/2314:48 Height 6 ft 6 ft Weight: 140 lb 137 lb BMI 19.0 18.6 BP 120/62 116/49 L Blood Pressure Location Lt brachial Rt radial Position Sitting Sitting Respiration 16 17 Pulse 64 59 L Pulse Source Monitor Monitor Temp 97.7 F L 97.1 F L Temp Source Temporal Temporal Intake Visit Reasons: SELF REFERRED - DIARRHEA AND LOSING WEIGHT Chief Complaint: diarrhea, losing wt Is patient in pain?: No Allergies aspirin Allergy (Severe, Verified 09/13/23 10:53) bleeding Medications multivitamin 1 tab PO DAILY supplement 07/01/21 [History Confirmed 09/26/23] pantoprazole 40 mg tablet,delayed release 40 mg PO QAM #90 tabs 10/29/22 [Rx Confirmed 09/26/23] glucosamine-chondroitin 250 mg-200 mg tablet (Osteo Bi-Flex) See Rx InstructionsPO .COMPLEX 01/12/23 [History Confirmed 09/26/23] pravastatin 40 mg tablet 40 mg PO QHS #90 tabs 03/13/23 [Rx Confirmed 09/26/23] atenolol 50 mg tablet 50 mg PO DAILY #90 tabs 03/26/23 [Rx Confirmed 09/26/23] fluticasone fur. 200 mcg-umeclid 62.5 mcg-vilant 25 mcg inhalat.powder (Trelegy Ellipta) 1 inh inhalation DAILY #60 ea 05/20/23 [Rx Confirmed 09/26/23] albuterol sulfate 90 mcg/actuation aerosol inhaler (Ventolin HFA) 2 puff inhalation Q6H #8.5 grams 06/14/23 [Rx Confirmed 09/26/23] trazodone 100 mg tablet 100 mg PO QHS #90 tabs 07/23/23 [Rx Confirmed 09/26/23] docusate sodium 100 mg capsule (Colace) 100 mg PO DAILY Constipation 08/01/23 [History Confirmed 09/26/23] ipratropium 0.5 mg-albuterol 3 mg (2.5 mg base)/3 mL nebulization soln 3 ml inhalation Q4H PRN shortness of breath or wheezing #180 mL 08/01/23 [Rx Confirmed 09/26/23] fluticasone propionate 50 mcg/actuation nasal spray,suspension 2 spray intranasal DAILY #16 grams 08/20/23 [Rx Confirmed 09/26/23] meloxicam 15 mg tablet 15 mg PO DAILY .pain #30 tabs 08/27/23 [Rx Confirmed 09/26/23] lisinopril 20 mg tablet 20 mg PO DAILY #90 tabs 09/17/23 [Rx Confirmed 09/26/23] hydrocodone 10 mg-acetaminophen 325 mg tablet 1 tab PO Q4H 1 month #180 tabs 09/23/23 [Rx Confirmed 09/26/23] PFSH Medical History Arthritis Chronic pain Community acquired pneumonia Depression GERD (gastroesophageal reflux disease) History of stomach ulcers Hyperlipidemia Hypertension IBS (irritable bowel syndrome) Kidney stones Neuropathy Overdose Pneumonia Severe protein-calorie malnutrition Smoker Syncope Surgical History History of endoscopy History of thoracic surgery Family History Mother Myocardial infarction, Onset Age: 49 DepressionFather Hypertension CVA (cerebral vascular accident), Onset Age: 49Sister Thyroid disorderUncle ulcers Social History household members: significant other Smoking Status: Former smoker quit date: 07/14/21 alcohol intake: never substance use type: does not use what type of physical activity do you participate in: other details: yard work,house work HPI HPI HPI: Patient is a 73-year-old male here with inadvertent weight loss and left lower quadrant pain. The patient reports his last colonoscopy was almost 10 years ago. He has had history of peptic ulcer disease but he is on a PPI. He reportshe occasionally has left lower quadrant pain. There is no causative factors that he can think of. He denies constipation but he does report that he has been having diarrhea. ROS General General: Yes weight change, appetite and fatigue; No colon cancer, breast cancer or weakness HEENT HEENT: No difficulty swallowing, eye injury, eye surgery, swollen glands or hoarseness Endo Endocrine: No thyroid disease, diabetes mellitus, thyroid cancer, Hair loss, heat intolerance or cold intolerance Skin Skin: No rash or changing moles Musc Musculoskeletal: Yes back problems and arthritis; No rheumatoid arthritis, gout or joint pain Cardio Cardiovascular: Yes high blood pressure; No murmur, pacemaker, heart disease, atrial fibrillation, heart attack, heart stent, palpitations, shortness of breat with exertion or chest pain Psych Psychiatric: Yes depression and anxiety; No hearing voices Resp Respiratory: Yes shortness of breath, No sleep apnea, No cough, Yes COPD, No asthma, No emphysema and No wheezing Gastro Gastrointestinal: Yes abdominal pain, Yes nausea or vomiting, Yes diarrhea, Yes constipation, No blood in stool, Yes acid reflux, No hemorrhoids, Yes ulcers, Nogallbladder problem and No black,tarry stools Tian Hematologic: No blood thinners, No blood disorders, No bleeding, No anemia and No blood clots Neuro Neurologic: No system reviewed and no additional complaints, except as documented, No as per HPI, No abnormal gait, No abnormal hearing, No abnormal movements, No abnormal speech, No behavioral changes, No burning sensations, No confusion, No convulsions, No disequilibrium, No dizziness, No localized weakness, No frequent falls, No headache(s), No lack of coordination, No loss ofvision, No memory loss, Yes numbness, No other visual disturbances, No radicularpain, No restless legs, No sensory deficit, No syncope, Yes tingling, No tremor(s), No weakness and No other Exam Const General: cooperative Orientation: alert and oriented x3 HENMT Head: normal to inspection Neck Neck: normal visual inspection and full ROM Chest Chest palpation & inspection: normal inspection of the chest Resp Effort & Inspection: normal respiratory effort Auscultation: clear to auscultation bilaterally Cardio Rate: regular rate Rhythm: regular rhythm GI Inspection: non-distended Palpation: soft and nontender Skin General: no rashes or lesions noted Neuro General: patient alert and patient oriented x3 Extrem General: full ROM Psych Appearance: grossly normal Mental Status: mental status grossly normal Assessment and Plan Assessment and Plan (1) Weight loss: Status: Acute (2) Left lower quadrant pain: Status: Acute Orders: Orders Colonoscopy Today EGD Today Plan The patient has been having inadvertent weight loss for several months. He has not had an appetite and he is not eating and he is having diarrhea. I discusseddouble endoscopy to evaluate the stomach and the colon. Patient reports he has had copious imaging studies. I explained endoscopy in detail to the patient. I explained the risks includingbut not limited to stroke or heart attack with anesthesia, perforation of the GItract, bleeding, infection. I explained that any of these could necessitate further emergency surgery. The patient understands and all questions were answered sufficiently. The patient wishes to proceed with procedure. Robson Moreira MD Pager: [facility] [address] [place] [address], [address] [place] [address] Office: I have examined the patient and the H&P has been reviewed. There are no clinicalchanges since date of exam. 10/09/23 1032 <Electronically signed by Robson Moreira MD> Cosigner Signature (if applicable): CC: Dr. Robson Moreira MD; Dr. Shalini Ferrari, DO~ Signed [facility] Work Phone: History and physical note Author Mariann Clancy [facility] December 03, 2023 8:06pm Note Date/Time December 03, 2023 7:35pm [facility] Medical Records Department [address] [place] [address] H&P Exam - Hospitalist 12/03/231927 MR#: [id number] Acct: [id number] Name: ELIGIO MCCABE Rep #:[id number] : 1950 73 From: Mariann Clancy MD PCP: Dr. Shalini Ferrari, DO Status:AD M IN Location: ICU ICU03-1 HPI - General General Date of Admission: 12/03/23 Date of Service: 12/03/23 Chief Complaint: Confusion, suprapubic discomfort, decreased UOP. HPI Narrative The patient is a 73 y/o M w/ PMHx: Chronic cognitive impairment of unclear etiology, COPD w/ Chronic Hypoxic Respiratory Failure, Chronic neuropathy, Former tobacco use, GERD w/ Hx GI bleed, HTN, HLD, Chronic anemia who presents to the [facility] ED on 12/03/23 with history of inability to urinate for the last 48 hours although from report possibly dribbling over himself with significant suprapubic discomfort with no recent fever, chills, nausea or emesis but reported confusion and agitation potentially related to urinary retention prompting family to bring him in for evaluation. In the ED patient with significant urinary retention with Rocha catheter placed with 2 L urine output immediately noted. Patient in the emergency room cannot give any appropriate information about his recent status and is extremely confused although he is able to carry a conversation and is extremely irritable but clearly cannot give exact data. Workup in the ED included T98.1, heart 60, BP 177/104, respiratory rate 15, 90% on 3 L nasal cannula and for review of most recent records patient previously also been on 2.5 to 3 L nasal cannula, CBC with WBC 11.9, hemoglobin 9.5, MCV 102.7, platelet 339 with left shift and lymphopenia, CMP with sodium 134, potassium 8.4 noted to be slightly hemolyzed, carbon oxide 19, anion gap 10, BUN/creatinine 102/8.75, calcium 11.6, hepatic profile not marked appearing,total creatinine kinase 112, urinalysis with specific remedy 1.010, protein 30, ketone negative, occult blood 150, urine nitrite negative, leukocyte esterase 25with no obvious evidence of UTI, left lower lobe airspace disease, bilateral nonobstructing nephroliths, possible mild left hydronephrosis with no definite radiodense ureterolith. In the ED patient administered 1 L normal saline. Discussed presentation with ED physician and requested stat repeat BMP as well as immediate treatment of hyperkalemia per the order set protocol. [facility] Medical History Arthritis Arthritis Back pain Cardiology follow-up encounter Chronic pain Community acquired pneumonia COPD (chronic obstructive pulmonary disease) Depression Difficulty chewing Drop foot gait Forgetfulness Former smoker GERD (gastroesophageal reflux disease) High cholesterol History of echocardiogram History of GI bleed History of hiatal hernia History of stomach ulcers History of stress test Hyperlipidemia Hypertension IBS (irritable bowel syndrome) Neuropathy On home oxygen therapy Overdose Pneumonia Severe protein-calorie malnutrition Shortness of breath on exertion Syncope Wears dentures Wears glasses Home Medications multivitamin 1 tab PO DAILY supplement 07/01/21 [History Last Taken 10/08/23] pantoprazole 40 mg tablet,delayed release 40 mg PO QAM #90 tabs 10/29/22 [Rx Last Taken 10/09/23] glucosamine-chondroitin 250 mg-200 mg tablet (Osteo Bi-Flex) 2 tab PO DAILY 01/12/23 [History Last Taken 10/08/23] pravastatin 40 mg tablet 40 mg PO QHS #90 tabs 03/13/23 [Rx Last Taken 10/08/23] atenolol 50 mg tablet 50 mg PO DAILY #90 tabs 03/26/23 [Rx Last Taken 10/09/23] docusate sodium 100 mg capsule (Colace) 100 mg PO DAILY Constipation 08/01/23 [History Last Taken 10/08/23] fluticasone propionate 50 mcg/actuation nasal spray,suspension 2 spray intranasal DAILY #16 grams 08/20/23 [Rx Last Taken 10/08/23] albuterol sulfate 90 mcg/actuation aerosol inhaler See Rx Instructions .Route .COMPLEX #8.5 grams 10/22/23 [Rx Last Taken Unknown] carboxymethylcellulose sodium 0.5 % eye drops (Refresh Tears) 1 drp ophthalmic (eye) 4-6XD PRN dry eye(s) 10/22/23 [History Last Taken Unknown] ipratropium 0.5 mg-albuterol 3 mg (2.5 mg base)/3 mL nebulization soln 3 ml inhalation BID shortness of breath or wheezing #180 mL 10/22/23 [Rx Last Taken Unknown] rollator walker with seat #1 ea 11/05/23 [Rx Last Taken Unknown] lisinopril 10 mg tablet 10 mg PO 1600 #90 tabs 11/06/23 [Rx Last Taken Unknown] trazodone 100 mg tablet 100 mg PO QHS #90 tabs 11/06/23 [Rx Last Taken Unknown] hydrocodone 10 mg-acetaminophen 325 mg tablet 1 tab PO TID 1 month #90 tabs 11/20/23 [Rx Last Taken Unknown] Allergy/AdvReac Type Severity Reaction Status Date / Time aspirin Allergy Severe bleeding Verified 11/20/23 11:17 Family History Mother Myocardial infarction, Onset Age: 49 Depression Father Hypertension CVA (cerebral vascular accident), Onset Age: 49 Sister Thyroid disorder Uncle ulcers Surgical History History of bronchoscopy History of esophagogastroduodenoscopy (EGD) History of thoracic surgery Hx of colonoscopy Social History household members: spouse and significant other Smoking Status: Former smoker quit date: 07/14/21 alcohol intake: never substance use type: does not use what type of physical activity do you participate in: other details: yard work,house work ROS Review of Systems ROS Unobtainable: due to encephalopathy Vital Signs Vital Signs Vital Signs: 12/03/23 16:31 12/03/23 16:37 12/03/23 18:53 Temperature 98.1 F 98 F 97.8 F Temperature Source Temporal Temporal Temporal Pulse Rate 62 72 56 L Respiratory Rate 15 15 16 Blood Pressure 177/104 H 177/104 H 160/82 H Blood Pressure Mean 128 128 108 Pulse Ox 93 95 95 Oxygen Delivery Method Nasal Cannula Nasal Cannula Nasal Cannula Oxygen Flow Rate (L/min) 3 3 3 Weight Weight: 149 lb 14.629 oz Body Mass Index (BMI) 20.3 Physical Exam Narrative Physical Examination: General: Awake, alert, oriented to self but cannot give place, month, year, verypoor historian and suspect that he is confused given his current situation but also likely underlying chronic impairment as well, does follow commands, seated upright in the ED bed, able to have a discussion but again clearly confused. Skin: Normal color, normal turgor, no icterus, no cyanosis except occasional staged ecchymoses, abrasion. HEENT: AT/NC, EOMI, PERRLA, dry MM, no carotid bruits or JVD noted. Lungs: Diffusely diminished, greater bases, left greater than right, no evidenceof any distress, no rales, ronchi or wheezing. Heart: Mildly bradycardic with regular rhythm; no gallop, rub audible. Abdomen: Soft, thin habitus, NTTP except discomfort in the suprapubic region with palpation, ND, hyperactive BS, no HSM. Extremities: No cyanosis, clubbing, or edema, evidence of muscle wasting. Neurological: Patient awake, alert, oriented as noted, cognitive function suspect diminished with cognitive impairment baseline but do feel that patient likely is worse than usual given his acute presentation, pupils equally reactiveto light and accommodation, cranial nerves grossly normal, moving all 4 extremities, no focal deficits, strength severely globally decreased. Psychiatric: Affect appears mildly irritable, no acute evidence of depressive oranxiety feelings. Results Lab / Micro Data 12/03/23 16:39 12/03/23 16:39 Labs: Laboratory Results - last 24 hr 12/03/23 16:39: WBC 11.9 H, RBC 2.92 L, Hgb 9.5 L, Hct 30.0 L, MCV 102.7 H, MCH 32.5 H, MCHC 31.7 L, RDW Std Deviation 54.7 H, RDW Coeff of Issa 14.6, Plt Count 339, MPV 10.7, Immature Gran % (Auto) 0.400, Neut % (Auto) 81.7 H, Lymph % (Auto) 6.4 L, Faulkner % (Auto) 7.0, Eos % (Auto) 3.6, Baso % (Auto) 0.9, Absolute Neuts (auto) 9.7 H, Absolute Lymphs (auto) 0.76 L, Nucleated RBC % 0, Differential Comment SCANNED, Sodium 134 L, Potassium 8.4 H*, Chloride 105, Carbon Dioxide 19.0 L, Anion Gap 10, BUN 102 H*, Creatinine 8.75 H*, Estim CreatClear Calc 7.23, Est GFR (MDRD) Af Amer 8 L, Est GFR (MDRD) Non-Af 6 L, BUN/Creatinine Ratio 11.7, Glucose 104, Calcium 11.6 H, Total Bilirubin 0.20, AST 24, ALT 25, Alkaline Phosphatase 81, Total Creatine Kinase 112, Total Protein 8.0, Albumin 3.3, Globulin 4.7 H, Albumin/Globulin Ratio 0.7 L 12/03/23 17:05: Urine Color Yellow, Urine Clarity Clear, Urine pH 6.5, Ur Specific [place] 1.010, Urine Protein 30 H, Urine Glucose (UA) Normal, Urine Ketones Negative, Urine Occult Blood 150 H, Urine Nitrite Negative, Urine Bilirubin Negative, Urine Urobilinogen Normal, Ur Leukocyte Esterase 25 H, UrineRBC 25-50 SEEN, Urine WBC 0-5 SEEN, Ur Squamous Epith Cells 0 SEEN, Urine Bacteria 0 SEEN, Urine Mucus 0 SEEN Imaging Radiology Impression Abdomen/Pelvis CT 12/03/23 17:03 IMPRESSION: Left lower lobe airspace disease. Bilateral nonobstructing nephroliths. Possible mild left hydronephrosis with no definite radiodense ureterolith. Electronically Signed: Basim Aguilar MD at 18:08 EST Reading Location ID and State: [facility] / [place] Tel , Service support , Assessment & Plan Assessment/Plan (1) NELSON (acute kidney injury): PLAN: Plan The patient is a 73 y/o M w/ PMHx: Chronic cognitive impairment of unclear etiology, COPD w/ Chronic Hypoxic Respiratory Failure, Chronic neuropathy, Former tobacco use, GERD w/ Hx GI bleed, HTN, HLD, Chronic anemia who presents to the [facility] ED on 12/03/23 with history of inability to urinate for the last 48 hours although from report possibly dribbling over himself with significant suprapubic discomfort with no recent fever, chills, nausea or emesis but reported confusion and agitation potentially related to urinary retention prompting family to bring him in for evaluation. #1. Acute kidney injury with acute urinary retention with bilateral nonobstructing nephroliths and a possible mild left hydronephrosis with no definitive radiodense ureterolith: Acute kidney injury secondary to urinary retention coupled with nephrotoxic regimen, will admit to the ICU given significant hyperkalemia although slighly hemolyzed but suspect still notably elevated, will request spare person involvement per protocol, as noted admission BUN/Cr 102/8.75, prior baseline creatinine noted to be primarily 0.9-1.0 although more recently 11/20/2023 1.31 thus we will continue to hold nephrotoxic medication, continue hydration/maintain on bicarb drip, continue Rocha catheter placement, add Flomax regimen, will additionally obtain FeNa assessment, will request nephrology involvement early given significant kidney injury noted to becautious especially as well as hyperkalemia concurrently noted. #2. Hyperkalemia, slightly hemolyzed: Presentation CMP with potassium 8.4, noted to be hemolyzed in part, will repeat stat BMP to assess appropriate level,discussed with ED and initiated on hyperkalemic treatments with planned ICU admission given concern, will repeat BMP serially as needed and continued hyperkalemic protocols if appropriate. #3. Incidentally noted left lower lobe and lingular consolidations, unclear specific etiology, questionable community-acquired pneumonia: Will maintain on chronic home oxygen supplementation, maintain on ATC duonebs, PRN albuterol, until further evaluation will maintain cautiously on IV Rocephin and azithromycin, HOB, IS parameters w/ pending sputum cultures, full respiratory viral panel, procalcitonin and urine antigens. If there is no obvious evidence that this is a bacterial infection we will de-escalate antibiotic therapy. MRSAscreen also requested. #4. Chronic COPD with allergic rhinitis with with chronic hypoxic respiratory failure: Will maintain on home oxygen supplementation, hold home regimen in interim transition to ATC duonebs, PRN albuterol, HOB, IS parameters. #5. Chronic macrocytic anemia: Admission hemoglobin 9.5, MCV 102.7, baseline previous hemoglobin noted 9.9 11/20/2023 however previous to this in 2022 hemoglobin ranged 9-12, encourage continued outpatient evaluation, vitamin B12 and folic acid level as well as iron panel requested. #6. Hypertension: Given presentation holding lisinopril, continue atenolol, as needed IV hydralazine. #7. Hyperlipidemia: We will continue patient on statin therapy. #8. Former tobacco usage: Encourage continued tobacco cessation. #9. GERD with history of GI bleed: We will continue patient home PPI. #10. Chronic insomnia: Given presentation we will temporally hold home trazodone regimen, resume once clinically appropriate. #11. Chart reported history of chronic cognitive impairment: Unclear exact extent or etiology, will continue cautiously monitor, maintain on fall precautions, PT/OT/case management consulted for discharge planning. #12. Chronic back pain with chronic neuropathy: Frequent positional changes encouraged, maintain on fall precautions, does take chronic hydrocodone regimen which will cautiously be continued to avoid withdrawal. #13. DVT prophylaxis: Heparin. #14. CODE status: Patient is unable to answer any healthcare power of fixed income manager or living will questions at this time. Discussed with patient and noted plan tocontinue and unverified full CODE STATUS with plan discussion with family once able to reach to verify. Charges/Coding Visit Charges Inpatient E&M: 01467 Init Hosp L3 12/03/232005 <Electronically signed by Mariann Clancy MD> Cosigner Signature (if applicable): CC: Dr. Mariann Clancy MD; Dr. Shalini Ferrari, DO~ Signed [facility] Work Phone: History and physical note Author Perry Hays [facility] January 02, 2024 10:28am Note Date/Time January 02, 2024 10: 29am [facility] Medical Records Department [address] [place] [id number] History & Physical Exam 01/02/24 1028 MR#: [id number] Acct: [id number] Name: ELIGIO MCCABE Rep #:[id number] 4 : 1950 73 From: Perry Hays DO PCP: Dr. Shalini Ferrari, DO Status:[facility] Location: [place] [address] History and Physical Date of Admission: 01/02/24 73 y/o M with past medical history of chronic anemia and weight loss who presents to the [facility] ED on 12/03/23 with history of inability to urinate for the last 48 hours. He has a past medical history significant for COPD with chronic hypoxic respiratory failure, former tobacco use, hypertension, hyperlipidemia, GERD withhistory of GI bleed, history of kidney stones. In the ED patient with significant urinary retention with Rocha catheter placedwith 2 L urine output immediately noted. Patient in the emergency room cannot give any appropriate information about his recent status and is extremely confused although he is able to carry a conversation and is extremely irritable but clearly cannot give exact data. Workup in the ED included T98.1, heart 60, BP 177/104, respiratory rate 15, 90% on 3 L nasal cannula and for review of most recent records patient previously also been on 2.5 to 3 L nasal cannula CBC with WBC 11.9, hemoglobin 9.5, MCV 102.7, platelet 339 with left shift and lymphopenia, CMP with sodium 134, potassium 8.4 noted to be slightly hemolyzed, carbon oxide 19, anion gap 10, BUN/creatinine 102/8.75, calcium 11.6, hepatic profile not marked appearing, total creatinine kinase 112, urinalysis with specific remedy 1.010, protein 30, ketone negative, occult blood 150, urine nitrite negative, leukocyte esterase 25 with no obvious evidence of UTI, left lower lobe airspace disease, bilateral nonobstructing nephroliths, possible mildleft hydronephrosis with no definite radiodense ureterolith. He was diagnosed with a postobstructive uropathy and had a Rocha catheter placed. Also his blood pressure medicines were held. His creatinine has been improving as well as his mental status. After talking to him he says he is lostover 200 pounds. He had an upper and lower scope back in September [address] Thomas for abdominal pain, weight loss and anemia. His ferritin was 137, iron 40 and TIBC is 14. I was called to see him because his hemoglobin drifted down to 7. [facility] Medical History Arthritis Arthritis Back pain Cardiology follow-up encounter Chronic pain Community acquired pneumonia COPD (chronic obstructive pulmonary disease) Depression Difficulty chewing Drop foot gait Forgetfulness Former smoker GERD (gastroesophageal reflux disease) High cholesterol History of echocardiogram History of GI bleed History of hiatal hernia History of stomach ulcers History of stress test Hyperlipidemia Hypertension IBS (irritable bowel syndrome) Neuropathy On home oxygen therapy Overdose Pneumonia Severe protein-calorie malnutrition Shortness of breath on exertion Syncope Wears dentures Wears glasses Home Medications multivitamin 1 tab PO DAILY supplement 07/01/21 [History Last Taken 10/08/23] pantoprazole 40 mg tablet,delayed release 40 mg PO QAM #90 tabs 10/29/22 [Rx Last Taken 10/09/23] glucosamine-chondroitin 250 mg-200 mg tablet (Osteo Bi-Flex) 2 tab PO DAILY 01/12/23 [History Last Taken 10/08/23] pravastatin 40 mg tablet 40 mg PO QHS #90 tabs 03/13/23 [Rx Last Taken 10/08/23] atenolol 50 mg tablet 50 mg PO DAILY #90 tabs 03/26/23 [Rx Last Taken 10/09/23] docusate sodium 100 mg capsule (Colace) 100 mg PO DAILY Constipation 08/01/23 [History Last Taken 10/08/23] fluticasone propionate 50 mcg/actuation nasal spray,suspension 2 spray intranasal DAILY #16 grams 08/20/23 [Rx Last Taken 10/08/23] albuterol sulfate 90 mcg/actuation aerosol inhaler See Rx Instructions .Route .COMPLEX #8.5 grams 10/22/23 [Rx Last Taken Unknown] carboxymethylcellulose sodium 0.5 % eye drops (Refresh Tears) 1 drp ophthalmic (eye) 4-6XD PRN dry eye(s) 10/22/23 [History Last Taken Unknown] ipratropium 0.5 mg-albuterol 3 mg (2.5 mg base)/3 mL nebulization soln 3 ml inhalation BID shortness of breath or wheezing #180 mL 10/22/23 [Rx Last Taken Unknown] rollator walker with seat #1 ea 11/05/23 [Rx Last Taken Unknown] lisinopril 10 mg tablet 10 mg PO 1600 #90 tabs 11/06/23 [Rx Last Taken Unknown] trazodone 100 mg tablet 100 mg PO QHS #90 tabs 11/06/23 [Rx Last Taken Unknown] hydrocodone 10 mg-acetaminophen 325 mg tablet 1 tab PO TID 1 month #90 tabs 11/20/23 [Rx Last Taken Unknown] Allergy/AdvReac Type Severity Reaction Status Date / Time aspirin Allergy Severe bleeding Verified 11/20/23 11:17 Family History Mother Myocardial infarction, Onset Age: 49 DepressionFather Hypertension CVA (cerebral vascular accident), Onset Age: 49Sister Thyroid disorderUncle ulcers Surgical History History of bronchoscopy History of esophagogastroduodenoscopy (EGD) History of thoracic surgery Hx of colonoscopy Social History household members: spouse and significant other Smoking Status: Former smoker quit date: 07/14/21 alcohol intake: never substance use type: does not use what type of physical activity do you participate in: other details: yard work,house work ROS ROS Narrative 10 systems were reviewed with pertinent positives as noted in the HPI above. Physical Exam Const alert, oriented x3 and no apparent distress Constitutional Narrative: frail, elderly General Appearance: cooperative HEENT normocephalic, head/scalp atraumatic and moist oral mucous membranes Eyes PERRL and EOMs intact bilaterally Neck no lymphadenopathy, supple and no JVD Lymph Lymphatic: no lymphadenopathy noted and no lymphedema noted Resp Resp Narrative: mildly diminished breath sounds bibasally, no wheezes or crackles.On room air. Cardio regular rate, regular rhythm, S1 normal heart sound, S2 normal heart sound and no murmurs GI normal to inspection, nondistended, normoactive bowel sounds, soft to palpation,non-tender and non-distended Extremity normal capillary refill, no clubbing, cyanosis or edema and no calf tenderness General Extremity: no tenderness to palpation of joints or extremities Skin General Skin Exam: no breakdown Neuro CN's II-XII intact bilaterally, no focal motor deficits and no sensory deficits noted Motor Exam: general weakness Psych thought process normal and cooperative Appearance: appropriate Lab / Micro Data 12/09/23 09:00 12/09/23 04:40 Labs: Laboratory Results - last 24 hr 12/09/23 04:40: WBC 9.1, RBC 2.13 L, Hgb 7.0 L, Hct 22.3 L, MCV 104.7 H, MCH 32.9 H, MCHC 31.4 L, RDW Std Deviation 54.7 H, RDW Coeff of Issa 14.3, Plt Count 288, MPV 9.4, Immature Gran % (Auto) 1.500 H, Neut % (Auto) 68.4, Lymph % (Auto)12.4 L, Faulkner % (Auto) 9.3, Eos % (Auto) 7.5 H, Baso % (Auto) 0.9, Absolute Neuts(auto) 6.2, Absolute Lymphs (auto) 1.12, Nucleated RBC % 0, Sodium 140, Potassium 3.9, Chloride 111 H, Carbon Dioxide 27.0, Anion Gap 2 L, BUN 18, Creatinine 1.17, Estim Creat Clear Calc 50.27, Est GFR (MDRD) Af Amer 79, Est GFR (MDRD) Non-Af 65, BUN/Creatinine Ratio 15.4, Glucose 102, Calcium 8.2 L 12/09/23 09:00: Hgb 7.0 L, Hct 22.1 L 12/09/23 10:35: Blood Type B POSITIVE, Antibody Screen POSITIVE, Antibody Identification ANTI-K, Antigen Identification K ANTIGEN - NEGATIVE, Crossmatch See Detail Micro: Microbiology 12/07/23 13:40 Sputum, Expectorated/Coughed Gram Stain - Final 12/07/23 13:40 Sputum, Expectorated/Coughed Respiratory Culture - Final Presumptive C albicans Assessment & Plan Assessment/Plan (1) NELSON (acute kidney injury): PLAN: Plan The patient is a 73 y/o M w/ PMHx: Chronic cognitive impairment of unclear etiology, COPD w/ Chronic Hypoxic Respiratory Failure, Chronic neuropathy, Former tobacco use, GERD w/ Hx GI bleed, HTN, HLD, Chronic anemia who presents to the [facility] ED on 12/03/23 with history of inability to urinate for the last 48 hours although from report possibly dribbling over himself with significant suprapubic discomfort with no recent fever, chills, nausea or emesis but reported confusion and agitation potentially related to urinary retention prompting family to bring him in for evaluation. Acute kidney injury with acute urinary retention with bilateral nonobstructing nephroliths and a possible mild left hydronephrosis causing postobstructive uropathy status post catheter placement. Chronic macrocytic and normocytic anemia: Admission hemoglobin 9.5, MCV 102.7, baseline previous hemoglobin noted 9.9 11/20/2023 however previous to this in 2022hemoglobin ranged 9-12, his hemoglobin drifted down to 6.4 and after 1 unit is only at 7. He should undergo repeat upper endoscopy and possible capsule endoscopy to look for signs of atrophic gastritis which can cause iron deficiency, B12 deficiency and contribute to anemia chronic disease, celiac disease whichcan cause iron deficiency, autoimmune gastritis which can cause iron deficiency. He was explained alternatives, risk, benefits including not withstanding bleeding, infection,'s, perforation, need for emergent urgent . He will have an ASA of 3. Recommend to check antiparietal cell antibody, antiintrinsic factor antibody, HOMAR, celiac profile. I have examined the patient and the H&P has been reviewed. There are no clinicalchanges since date of exam. 01/02/24 1028 <Electronically signed by Perry Hays DO> Cosigner Signature (if applicable): CC: Dr. Shalini Ferrari, DO; Perry Hays DO~ Signed [facility] Work Phone: History and physical note Author Perry Hays [facility] Note Date/Time January 04, 2025 6:5 3am [facility] Medical Records Department [address] [place] [address] History & Physical Exam 01/04/25 0651 MR#: [id number] Acct: [id number] Name: ELIGIO MCCABE Rep #:[id number] 4 : 1950 74 From: Perry Hays DO PCP: Dr. Shalini Ferrari, Status:[facility] Location: [place] [address] HPI - General General Date of Admission: 01/04/25 Date of Service: 01/04/25 Chief Complaint: Celiac disease HPI Narrative ELIGIO MCCABE, is a 74 M who presentsDENMACARIO MCCABE, is a 74 M who presents to the office today for November 2023 Surgery unk date?subtotal gastrectomy; likely PUD refractory to treatment versusmalignancy WSA workup for weight loss and LLQ pain ?EGD/colonoscopy WSA 10.09.23?EGD hemorrhagic gastritis. H.pylori neg ? Colonoscopy without visual abnormality. No path changes *[facility] hospitalization 12.03.23-12.11.23 for management of NELSON, COPD, presumptive pneumonia, anemia and chronic conditions HTN, HLD, GERD. ?CT abd/pel without contrast 12.03.23?mild hydronephrosis; colonic fecal burden; aortic and branch calcified plaque ?Stool 12.07.23?occult + ?EGD 12.09.23?short-segment Car?s, metaplasia +; medium hiatal hernia; oozing cratered gastric ulcer, metaplasia +; pyloric deformity; duodenitis. H.pylori neg ?GET 2..24?24.31 minutes (12-56) ?Biochemical?iron sat, ferritin, CPK, folate, gastrin, PTH, GAME, HOMAR, ANCA, FRANCISCA comp, anti-parietal cell ab, intrinsic factor WNL ? ESR H34, CRP H32.4, iron L40, TIBC L180, B12 H1383, procalcitoninH0.14, chromogranin A H681, ttg H7, IBD (apANCA, Bobbi) hgb 3.4.24 8.2 APRIL 2024 Friend 73-year-old male with past medical history as outlined was admitted to the ED on12/03/2023 with a complaint of inability to urinate for 48 hours prior to admission. He had assisted suprapubic discomfort but denied any fever or chills. He had confusion and agitation also and family felt it might be due to the urinary retention so he was brought into the ED. Rocha catheter inserted immediately drained 2 L of urine in the ED. Labs done was significant for potassium was 8.4 which was slightly hemolyzed, bicarb of 19 and anion gap of 10with creatinine of 8.75 and calcium of 11.6. CBC was largely unremarkable apart from hemoglobin of 9.5. Chest imaging showed lower left lobe airspace disease. CT of the abdomen and pelvis showed bilateral nonobstructing nephroliths with possible mild left hydronephrosis withno definitive radiodensity ureterolith. He was admitted and managed for postobstructive NELSON in the setting of urinary retention. He had Rocha catheter inserted. He was started on Flomax. He was initially admitted to the ICU on account of hyperkalemia. He was given Kayexalate and creatinine gradually trended down. Nephrology was consulted. His hospital course was complicated with acute on chronic anemia requiring blood transfusions. Stool for occult blood was positive and iron panel showed iron deficiency anemia. He had EGD which showed he had a bleeding peptic ulcer. He was placed on p.o. pantoprazole 40 mg twice daily. He is doing alot better, but he is still having weight loss. Recommend: -Autoimmune work up for weight loss and macrocytic anemia (2) Macrocytic anemia: Status: Acute Plan: I suspect there is a macrocytic anemia secondary to celiac disease and or Crohn's disease inhibiting absorption of B12 and folic acid along with decreasing formation of intrinsic factor because of the association of celiac disease with autoimmune gastritis (3) Celiac disease: Status: Acute Plan: Biochemical workup is positive for celiac sprue. He was given documentation andexplained the need for gluten-free diet including not eating oats, barley, rye and wheat products is much as possible. Depending on how he does we may need torefer him to nutrition services. (4) Exocrine pancreatic insufficiency: Status: Acute Plan: His stool elastase was low consistent with possible celiac disease induced smallbacterial overgrowth of celiac disease induced exocrine pancreatic insufficiency. Since he is doing well on budesonide I will not start him on pancreatic enzymes at this time. (5) Crohn's disease: Status: Acute Plan: He has multiple biomarkers positive for Crohn's disease with diarrhea and he is very responsive to budesonide. I did not perform a colonoscopy with biopsies ofhis terminal ileum because he already had a colonoscopy by an outside physician. Since he is doing very well on the budesonide we will continue that for now. He has gained approximately 15 pounds he is eating better and is having no diarrhea. Recommendations: -Continue 3 mg of budesonide per day -Recheck ESR and CRP -Recheck fecal calprotectin and stool elastase -Consider bone scan due to his history of COPD and need for budesonide therapy -Consider CT enterography -Check B12, folic acid, antiintrinsic factor antibody, antiparietal cell antibody, amylase and lipase CBC: 10/20/2024 HGB 13.1, MCV 105 CMP: 02/05/2024 transaminases NL CRP: 01/13/2024 21 12/09/2023 32 Fecal Calprotectin: 01/15/2024 207(H) Fecal Elastase: 11/13/2024 782 NL 01/15/2024 166 (L) FRANCISCA: 11/09/2024 NL pANCA: 11/09/2024 NL 01/12/2034 NL 12/10/2023 NL Bobbi: 01/13/2024 96(H) 12/10/2023 78(H) Total IgA: 12/10/2023 NL TTG IgA: 12/10/2023 normal TTG Ig12/10/2023 7(H) Endomysial IgA: 12/10/23 negative Fe: 01/13/2024 33(L) B12: 12/03/2023 1383(H) Folic Acid: 12/03/2023 52 normal Anti-Parietal Cell Ab: 12/10/2023 normal Haptoglobin: 01/13/2024 normal Anti-Intrinsic Factor AB: 12/10/2023 negative Gastrin: 12/10/2023 NL Chromogranin A: 12/10/2023 681 (H) CTE: 02/21/2024 Diffuse fatty infiltration of the liver, scattered simple hepaticcysts, Borderline distended fluid-filled small bowel loops throughout the abdomen and pelvis consistent with ileus/early obstruction. Transition point is not identified. This is most likely due to retained stool throughout the entirety of the colon. CAPSULE: 01/22/2024 Areas of focal ulceration seen in the SB. Abnormality seen inthe SB starting at 3h 19m concerning for stricture or volvulus. Diverticulum seen at 4h 26m. [facility] - The entire examined colon is normal on direct and retroflexion views. - No specimens collected. EGD: 01/02/2024 (Friend) Car's neg. for dysplasia - Z-line irregular. Biopsied. - Betzy-Persaud tear. - Bile gastritis. - A pyloroplasty was found, characterized by friable mucosa, congestion, edema and erythema. - No gross lesions in the duodenal bulb. EGD: 12/09/2023 (Friend) Car's w/o dysplasia, gastric metaplasia (neg. H. pylori), negative for celiac - Esophageal mucosal changes consistent with short-segment Car's esophagus. Biopsied. - Medium-sized hiatal hernia. - Oozing gastric ulcer with a visible vessel. Injected. Treated with a heater probe. - Acquired deformity in the pylorus. - Duodenitis. Biopsied. MEDS: 02/10/2024 started Budesonide 9mg QD - reports he discontinued a few weeks ago --seen in office today with his - he questions his diagnosis of Crohn's and celiac - questioning his need for medication use and diet which he reports he is not following Dr. Ferrari stopped Budesonide and started him on Dapsone - stopped the Budesonidea couple weeks ago - since off the Budesonide BLE swelling has resolved - weight has leveled off - appetite is stable - denies any pain - his bowel habits are stable - denies any bleeding or abdominal pain - Last Colonoscopy by outside MD - he reports this was negative - denies any h/o colon polyps - denies any family colon CA - denies any family h/o IBD - states he never had a diagnosis or celiac disease or Crohn's prior to coming to [facility] - he is having 1-2 BM a day - denies any diarrhea - denies any pain B: raisin bran L: peanut butter crackers D: protein,vegetable, starch - he is eating gluten free pasta - redoing a sleep study tonight - redoing a CT coming up 11/20 to reassess pulmonary nodules - he was taking Tums frequently - Quit smoking 5 years ago - IBU use was daily prior to November 2023 [facility] Medical History BiPAP (biphasic positive airway pressure) dependence Sleep apnea Bruising Enlarged prostate Anemia Esophageal ulcer with bleeding Drop foot gait Wears glasses Wears dentures Forgetfulness Arthritis High cholesterol Back pain Difficulty chewing History of hiatal hernia History of GI bleed Former smoker On home oxygen therapy COPD (chronic obstructive pulmonary disease) Shortness of breath on exertion Cardiology follow-up encounter History of stress test History of echocardiogram Overdose Severe protein-calorie malnutrition Pneumonia Syncope Depression Neuropathy Community acquired pneumonia GERD (gastroesophageal reflux disease) IBS (irritable bowel syndrome) History of stomach ulcers Arthritis Chronic pain Hyperlipidemia Hypertension Home Medications ?Medication ?Instructions ?Recorded ?Last Taken ?Type multivitamin 1 tab PO DAILY supplement 01/01/24 History glucosamine-chondroitin 250 mg-200 2 tab PO DAILY 11/0501/01/24 History mg tablet (Osteo Bi-Flex) docusate sodium 100 mg capsule 100 mg PO DAILY Constip ation 08/01/23 01/01/24 History (Colace) albuterol sulfate 90 mcg/actuation See Rx Instructions .Route 10/22/23 Unknown Rx aerosol inhaler .COMPLEX #8.5 grams rollator walker with seat #1 ea 11/05/23 Unknown Rx fluticasone fur. 200 mcg-umeclid 1 ea inhalation QDAY #3 ea 02/14/24 01/04/25 Rx 62.5 mcg-vilant 25 mcg inhalat.powder (Trelegy Ellipta) fluticasone propionate 50 2 spray intranasal DAILY #3 ea 02/14/24 Unknown Rx mcg/actuation nasal spray,suspension atenolol 50 mg tablet 50 mg PO DAILY #90 tabs 06/0601/04/25 Rx pravastatin 40 mg tablet 40 mg PO QHS #90 tabs Unknown Rx pantoprazole 40 mg tablet,delayed 40 mg PO BID #60 tab s 06/01/24 01/04/25 Rx release trazodone 100 mg tablet 100 mg PO QHS #90 tabs 10/19 Unknown Rx dapsone 100 mg tablet 100 mg PO QDAY #30 tabs 05/07 Unknown Rx B-complex with vitamin C 1 cap PO QDAY 11/09/24 Unkno wn History ascorbic acid (vitamin C) 1,000 mg 1 g PO QDAY 5 Unknown History capsule ipratropium 0.5 mg-albuterol 3 mg 3 ml inhalation COURTNEY Y shortness of 12/30/24 Unknown History (2.5 mg base)/3 mL nebulization breath or wheezing soln Allergy/AdvReac Type Severity Reaction Status Date / Time aspirin Allergy Severe bleeding Verified 01/04/25 05:45 Family History Mother Myocardial infarction, Onset Age: 49 Depression Father Hypertension CVA (cerebral vascular accident), Onset Age: 49 Sister Thyroid disorder Uncle ulcers Surgical History History of transurethral resection of prostate (06/03/24) History of bronchoscopy History of esophagogastroduodenoscopy (EGD) Hx of colonoscopy History of thoracic surgery Social History household members: spouse and significant other Smoking Status: Former smoker quit date: 07/14/21 alcohol intake: never substance use type: does not use what type of physical activity do you participate in: other details: yard work,house work ROS ROS Narrative 10 systems were reviewed with pertinent positives as noted in the HPI above. Vital Signs Vital Signs Vital Signs: 01/04/25 05:53 01/04/25 05:53 01/04/25 06:35 Temperature 98.3 F 98.3 F Temperature Source Temporal Pulse Rate 58 L 58 L Respiratory Rate 18 18 Respiratory Pattern Normal Blood Pressure 105/57 L 105/57 L Blood Pressure Mean 73 Blood Pressure Source Monitor Blood Pressure Position Semi-Fowlers Blood Pressure Location Left Arm Pulse Ox 100 100 Oxygen Delivery Method Nasal Cannula Nasal Cannula Oxygen Flow Rate (L/min) 3 3 Weight Weight: 193 lb 9.054 oz Body Mass Index (BMI) 26.2 Physical Exam Const alert, oriented x3, no apparent distress and healthy appearing General Appearance: cooperative GI normal to inspection, nondistended, normoactive bowel sounds, soft to palpation,non-tender and non-distended Percussion: normal to percussion Rectal Exam: deferred Assessment & Plan Assessment/Plan (1) Celiac disease: PLAN: Assessment and Plan Assessment and Plan (1) GERD (gastroesophageal reflux disease): Status: Chronic Qualifiers: Esophagitis presence: without esophagitis Qualified Code(s): K21.9 - Gastro-esophageal reflux disease without esophagitis Comment: CONTROLLED WITH MED (2) Macrocytic anemia: Status: Acute Comment: See 11/09/2023 GI progress note (3) Celiac disease: Status: Acute Comment: See 11/09/2023 GI progress note (4) Crohn's disease: Status: Acute Comment: See 11/09/2023 GI progress note Orders: Orders Calprotectin, Stool 11/13/24 D53.9 - Nutritional anemia, unspecified, K21.9 - Gastro-esophageal reflux disease without esophagitis, K50.90 - Crohn's disease, unspecified, without complications, K90.0 - Celiac disease Pancreatic Elastase, Fecal 11/13/24 D53.9 - Nutritional anemia, unspecified, K21.9 - Gastro-esophageal reflux disease without esophagitis, K50.90 - Crohn's disease, unspecified, without complications, K90.0 - Celiac disease Plan 74y/o male presents for follow-up of celiac sprue, macrocytic anemia and Crohn'sdisease. He was last seen by Dr. Hays April 2024 who recommended autoimmune work-up for macrocytic anemia which was thought to be secondary to celiac disease and or Crohn's disease inhibiting absorption resulting in autoimmune gastritis. Notes indicate his biochemical work-up for celiac sprue was previously positive and also indicate he had multiple biomarkers for Crohn's. Last OV note also indicates he had a low fecal elastase consistent with possibleceliac induced SIBO of celiac induced EPI. Patient and are present for visit today and are questioning the prior diagnosis of Celiac Disease and Crohn's Disease. In terms of macrocytic anemia: Anti-parietal Cell Ab, Anti-Intrinsic Factor Ab were both negative 12/10/2023 which suggests autoimmune gastritis/pernicious anemia less likely. B12 was elevated to 1323 and folic acid was normal on 12/03/2023. Gastric biopsies were revealing for gastric metaplasia not atrophic gastritis. Therefor, it is unlikely he has macrocytic anemia secondary to B12 deficiency. He is taking Dapsone which can cause macrocytic anemia, although I do not believe he was on this a year ago. If macrocytosis persists it would be reasonable to recheck a B12, folate, liver panel and possibly retic count and peripheral smear. In terms of Fe deficiency anemia: EGD revealed bleeding gastric ulcers, negativeduodenal biopsy and negative for H. pylori. Capsule endoscopy revealed focal area of ulceration in the SB. He reports he was taking IBU daily prior to admission which could cause both gastric and SB ulcerations, leading to Fe deficiency anemia. Previously high Chromogranin A raises the suspicion for NET, although PPI use can also cause elevation. Fe deficiency anemia was likely secondary to GIB secondary to gastric ulcers secondary to chronic NSAID use. He should avoid use of non- steroidal medications in the future. In terms of celiac disease: TTG IgA, Total IgA and Endomysial IgA were all normal. TTG IgG was minutely elevated at 7. With only a mildly elevated TTG IgG and negative duodenal biopsies, these findings are not suggestive of celiac disease. He is not following a GFD. It is reasonable to repeat serologies at [facility], although, it should be noted a minutely elevated TTG IgG alone with negative duodenal biopsies is not sufficient for a diagnosis of celiac disease. In terms of Crohn's disease: An elevated Bobbi and SB ulceration raises the suspicion for Crohn's. CRP was elevated although this is not specific to the gutand due to multiple other comorbidities at time of elevation (NELSON and pneumonia)either of these alone could of caused the CRP elevation. Fecal Calprotectin elevated at 207 adds to the suspicion of Crohn's; however, NSAID use and gastriculcers may of both contributed to the diarrhea he was experiencing and elevated fecal calprotectin. He discontinued Budesonide a few weeks ago and has not had recurrent diarrhea and denies any ABD pain. Colonoscopy was negative in 2022 andhe denies any family history of IBD. I will repeat the Fecal Calprotectin at this time. If the calprotectin is normal with absence of Fe deficiency (HGB 13.1, MCV 105 on 10/20/2024), I suspect the prior elevated CRP, fecal calprotectinand SB ulceration were possibly secondary to NSAID use and not Crohn's disease. If symptoms recur or if calprotectin is elevated it would be reasonable to revaluate for Crohn's (MRE, colonoscopy, CRP). Serologies including a Bobbi are not sufficient for a diagnosis of Crohn's disease. In terms of EPI: Fecal Elastase was mildly low (166) January 2024 when he was experiencing watery diarrhea. It was at this time he also had gastric ulcers secondary to NSAID enteropathy which can lead to malabsorption. This suggests the low fecal elastase was falsely low due to rapid stool transit and not a trueEPI. Now that diarrhea has resolved, I will repeat the fecal elastase. If normalthis further supports he does not have malabsorption secondary to EPI. In terms of Car's without dysplasia: ACG guidelines recommend the indefiniteuse of daily PPI to prevent the progression of Car's. I recommend a repeat EGD December 2026. ADDENDUM: 11/09/2024 TTG IgA, Total IgA and TTG IgG is normal and he is not on a GFD. Basedon these lab findings and previously negative duodenal biopsies, he does not have celiac disease. Even if the HLA DQ2 and DQ8 yield a positive result, this means he has the genetic predisposition for celiac disease, but it does NOT confirm a diagnosis of celiac disease with absence of serologic and histologic evidence as these genetic markers are present in the general population. 11/13/2024 Fecal Elastase is normal. EPI secondary to malabsorption is not a factor. 11/13/2024 Fecal Calprotectin elevated to 220. Further evaluation to assess inflammation is indicated and will be discussed with patient. 01/04/25 0653 <Electronically signed by Perry Hays DO> Cosigner Signature (if applicable): CC: Dr. Shalini Ferrari, DO; Perry Hays, DO~ Signed [facility] Work Phone: Hospital course Narrative No data available for this section [facility] Hospital Discharge instructions No data available for this section [facility] Hospital Discharge instructionsAmbulatory Orders* Allergy & Immunology Location: None Selected [facility] Work Phone: Progress note No data available for this section [facility] Reason for referral (narrative)* Outpatient Procedure (Routine) - Pending Review Specialty Diagnoses / Procedures Referred By Shanelle ayala Referred To Contact [facility] Diagnoses Urine retention Procedures CYSTO/TRUS ONLY CYSTOURETHROSCOPY US, TRANSRECTAL Natalia King PA-C [address] [place] [address] [facility] [address] [place] [id number] Referral ID Status Reason Start Date Expiration Date Visits Requested Visits Authorized [id number] Pending Review Auto-Generat ed Referral 02/25/2024 02/24/2025 1 1 * Outpatient Procedure (Routine) - Pending Review Specialty Diagnoses / Procedures Referred By Shanelle ayala Referred To Contact [facility] Diagnoses Urine retention Procedures URODYNAMICS FERNANDO POST-VOIDING RESIDUAL URINE&/BLADDER CAP Natalia King PA-C [address] [place] [address] [facility] [address] [address] Referral ID Status Reason Start Date Expiration Date Visits Requested Visits Authorized [id number] Pending Review Auto-Generat ed Referral 02/25/2024 02/24/2025 1 1 [facility] for referral (narrative)No reason for referral information availableWThe [facility] Work Phone: Chief Complaint and Reason for Visit Chief Complaint TOBACCO ABUSE Chief Complaint TOBACCO ABUSE 3 M FU Reason for Visit Opioid dependence wi th current use Osteophyte of cervical spine Urinary frequency Chronic pain Hypertension Neuropathy Unexplained weight loss Chief Complaint b12 3 M FU b12 b12 B12 TOOK 120 ML OF IMODIUM/NOT FEELING WELL diarrhea Reason for Visit History of empyema o f pleura Macrocytic anemia Opioid dependence with current use COPD (chronic obstructive pulmonary disease) Macrocytic anemia B12 deficiency B12 deficiency Overdose Chief Complaint b12 3 M FU b12 b12 B12 TOOK 120 ML OF IMODIUM/NOT FEELING WELL diarrhea GASTROENTERITIS GASTROENTERITIS GASTROENTERITIS Reason for Visit History of empyema o f pleura Macrocytic anemia Opioid dependence with current use COPD (chronic obstructive pulmonary disease) Macrocytic anemia B12 deficiency B12 deficiency Overdose Nausea and vomiting Chief Complaint TOOK 120 ML OF IMODI UM/NOT FEELING WELL diarrhea GASTROENTERITIS GASTROENTERITIS GASTROENTERITIS 3 M FU/ER FU 2 W FU PER BROWN 6 wk FU MED CONCERNS B12 ABNORMAL WEIGHT LOSS Reason for Visit Overdose Acute on chronic alteration in mental status Elevated liver enzymes Macrocytic anemia Opioid dependence with current use COPD (chronic obstructive pulmonary disease) Unexplained weight loss Acute on chronic alteration in mental status COPD (chronic obstructive pulmonary disease) Smoking greater than 40 pack years Macrocytic anemia Opioid dependence with current use Hypertension Unexplained weight loss Acute on chronic alteration in mental status COPD (chronic obstructive pulmonary disease) Smoking greater than 40 pack years Unexplained weight loss Chief Complaint 2 W FU PER BROWN 6 wk FU MED CONCERNS B12 ABNORMAL WEIGHT LOSS 2 M FU B12 inject FOOT DROP Reason for Visit Acute on chronic alt eration in mental status COPD (chronic obstructive pulmonary disease) Smoking greater than 40 pack years Macrocytic anemia Opioid dependence with current use Hypertension Unexplained weight loss Acute on chronic alteration in mental status COPD (chronic obstructive pulmonary disease) Smoking greater than 40 pack years Unexplained weight loss Macrocytic anemia Acute on chronic alteration in mental status Foot drop Opioid dependence with current use COPD (chronic obstructive pulmonary disease) Unexplained weight loss Chief Complaint ABNORMAL WEIGHT LOSS 2 M FU B12 inject FOOT DROP B12 inject TOBACCO ABUSE B12 1 Y FU SOB Shortness of breath Reason for Visit Acute on chronic alt eration in mental status Foot drop Opioid dependence with current use COPD (chronic obstructive pulmonary disease) Unexplained weight loss Macrocytic anemia History of empyema of pleura Nicotine dependence, cigarettes, in remission COPD (chronic obstructive pulmonary disease) Chief Complaint 2 M FU B12 inject FOOT DROP B12 inject TOBACCO ABUSE B12 1 Y FU SOB Shortness of breath 3 M FU/B12 Chronic obstructive pulmonary disease, unspecified Reason for Visit Acute on chronic alt eration in mental status Foot drop Opioid dependence with current use COPD (chronic obstructive pulmonary disease) Unexplained weight loss Macrocytic anemia History of empyema of pleura Nicotine dependence, cigarettes, in remission COPD (chronic obstructive pulmonary disease) Foot drop Macrocytic anemia Opioid dependence with current use COPD (chronic obstructive pulmonary disease) History of stomach ulcers Hypertension Chief Complaint B12 inject TOBACCO ABUSE B12 1 Y FU SOB Shortness of breath 3 M FU/B12 Chronic obstructive pulmonary disease, unspecified STOMACH ISSUES SELF REFERRED - DIARRHEA AND LOSING WEIGHT Reason for Visit Macrocytic anemia History of empyema of pleura Nicotine dependence, cigarettes, in remission COPD (chronic obstructive pulmonary disease) Foot drop Macrocytic anemia Opioid dependence with current use COPD (chronic obstructive pulmonary disease) History of stomach ulcers Hypertension Acute on chronic alteration in mental status Shortness of breath on exertion GERD (gastroesophageal reflux disease) Left lower quadrant pain Weight loss Chief Complaint B12 inject TOBACCO ABUSE B12 1 Y FU SOB Shortness of breath 3 M FU/B12 Chronic obstructive pulmonary disease, unspecified STOMACH ISSUES SELF REFERRED - DIARRHEA AND LOSING WEIGHT DYSPNEA DYSPNEA DYSPNEA Reason for Visit Macrocytic anemia History of empyema of pleura Nicotine dependence, cigarettes, in remission COPD (chronic obstructive pulmonary disease) Foot drop Macrocytic anemia Opioid dependence with current use COPD (chronic obstructive pulmonary disease) History of stomach ulcers Hypertension Acute on chronic alteration in mental status Shortness of breath on exertion GERD (gastroesophageal reflux disease) Left lower quadrant pain Weight loss Chief Complaint TOBACCO ABUSE B12 1 Y FU SOB Shortness of breath 3 M FU/B12 Chronic obstructive pulmonary disease, unspecified STOMACH ISSUES SELF REFERRED - DIARRHEA AND LOSING WEIGHT DYSPNEA DYSPNEA DYSPNEA In office walk 3 M FU G47.10 Hypersomnia Reason for Visit Macrocytic anemia History of empyema of pleura Nicotine dependence, cigarettes, in remission COPD (chronic obstructive pulmonary disease) Foot drop Macrocytic anemia Opioid dependence with current use COPD (chronic obstructive pulmonary disease) History of stomach ulcers Hypertension Acute on chronic alteration in mental status Shortness of breath on exertion GERD (gastroesophageal reflux disease) Left lower quadrant pain Weight loss Daytime hypersomnia COPD (chronic obstructive pulmonary disease) Hypoxia Chief Complaint 1 Y FU SOB Shortness of breath 3 M FU/B12 Chronic obstructive pulmonary disease, unspecified STOMACH ISSUES SELF REFERRED - DIARRHEA AND LOSING WEIGHT DYSPNEA DYSPNEA DYSPNEA In office walk 3 M FU G47.10 Hypersomnia EST (SELF) 3 M FU Reason for Visit History of empyema o f pleura Nicotine dependence, cigarettes, in remission COPD (chronic obstructive pulmonary disease) Foot drop Macrocytic anemia Opioid dependence with current use COPD (chronic obstructive pulmonary disease) History of stomach ulcers Hypertension Acute on chronic alteration in mental status Shortness of breath on exertion GERD (gastroesophageal reflux disease) Left lower quadrant pain Weight loss Daytime hypersomnia COPD (chronic obstructive pulmonary disease) Hypoxia Orthostatic hypotension Daytime hypersomnia Opioid dependence with current use Weight loss Chronic pain COPD (chronic obstructive pulmonary disease) Depression Hypertension Chief Complaint SOB Shortness of breath 3 M FU/B12 Chronic obstructive pulmonary disease, unspecified STOMACH ISSUES SELF REFERRED - DIARRHEA AND LOSING WEIGHT DYSPNEA DYSPNEA DYSPNEA In office walk 3 M FU G47.10 Hypersomnia EST (SELF) 3 M FU NELSON, HYPERKALEMIA Reason for Visit Foot drop Macrocytic anemia Opioid dependence with current use COPD (chronic obstructive pulmonary disease) History of stomach ulcers Hypertension Acute on chronic alteration in mental status Shortness of breath on exertion GERD (gastroesophageal reflux disease) Left lower quadrant pain Weight loss Daytime hypersomnia COPD (chronic obstructive pulmonary disease) Hypoxia Orthostatic hypotension Daytime hypersomnia Opioid dependence with current use Weight loss Chronic pain COPD (chronic obstructive pulmonary disease) Depression Hypertension NELSON (acute kidney injury) Chief Complaint SOB Shortness of breath 3 M FU/B12 Chronic obstructive pulmonary disease, unspecified STOMACH ISSUES SELF REFERRED - DIARRHEA AND LOSING WEIGHT DYSPNEA DYSPNEA DYSPNEA In office walk 3 M FU G47.10 Hypersomnia EST (SELF) 3 M FU NELSON, HYPERKALEMIA NELSON, HYPERKALEMIA NELSON, HYPERKALEMIA NELSON, HYPERKALEMIA NELSON, HYPERKALEMIA NELSON, HYPERKALEMIA NELSON, HYPERKALEMIA NELSON, HYPERKALEMIA NELSON, HYPERKALEMIA NELSON, HYPERKALEMIA NELSON, HYPERKALEMIA NELSON, HYPERKALEMIA NELSON, HYPERKALEMIA NELSON, HYPERKALEMIA Reason for Visit Foot drop Macrocytic anemia Opioid dependence with current use COPD (chronic obstructive pulmonary disease) History of stomach ulcers Hypertension Acute on chronic alteration in mental status Shortness of breath on exertion GERD (gastroesophageal reflux disease) Left lower quadrant pain Weight loss Daytime hypersomnia COPD (chronic obstructive pulmonary disease) Hypoxia Orthostatic hypotension Daytime hypersomnia Opioid dependence with current use Weight loss Chronic pain COPD (chronic obstructive pulmonary disease) Depression Hypertension NELSON (acute kidney injury) Hypokalemia Hypertension Chief Complaint Chronic obstructive pulmonary disease, unspecified STOMACH ISSUES SELF REFERRED - DIARRHEA AND LOSING WEIGHT DYSPNEA DYSPNEA DYSPNEA In office walk 3 M FU G47.10 Hypersomnia EST (SELF) 3 M FU NELSON, HYPERKALEMIA NELSON, HYPERKALEMIA NELSON, HYPERKALEMIA NELSON, HYPERKALEMIA NELSON, HYPERKALEMIA NELSON, HYPERKALEMIA NELSON, HYPERKALEMIA NELSON, HYPERKALEMIA NELSON, HYPERKALEMIA NELSON, HYPERKALEMIA NELSON, HYPERKALEMIA NELSON, HYPERKALEMIA NELSON, HYPERKALEMIA NELSON, HYPERKALEMIA HYPERTENSION, MURMUR Reason for Visit Acute on chronic alt eration in mental status Shortness of breath on exertion GERD (gastroesophageal reflux disease) Left lower quadrant pain Weight loss Daytime hypersomnia COPD (chronic obstructive pulmonary disease) Hypoxia Orthostatic hypotension Daytime hypersomnia Opioid dependence with current use Weight loss Chronic pain COPD (chronic obstructive pulmonary disease) Depression NELSON (acute kidney injury) Hypokalemia Chief Complaint Chronic obstructive pulmonary disease, unspecified STOMACH ISSUES SELF REFERRED - DIARRHEA AND LOSING WEIGHT DYSPNEA DYSPNEA DYSPNEA In office walk 3 M FU G47.10 Hypersomnia EST (SELF) 3 M FU NELSON, HYPERKALEMIA NELSON, HYPERKALEMIA NELSON, HYPERKALEMIA NELSON, HYPERKALEMIA NELSON, HYPERKALEMIA NELSON, HYPERKALEMIA NELSON, HYPERKALEMIA NELSON, HYPERKALEMIA NELSON, HYPERKALEMIA NELSON, HYPERKALEMIA NELSON, HYPERKALEMIA NELSON, HYPERKALEMIA NELSON, HYPERKALEMIA NELSON, HYPERKALEMIA HYPERTENSION, MURMUR 2 units PRBC's Reason for Visit Acute on chronic alt eration in mental status Shortness of breath on exertion GERD (gastroesophageal reflux disease) Left lower quadrant pain Weight loss Daytime hypersomnia COPD (chronic obstructive pulmonary disease) Hypoxia Orthostatic hypotension Daytime hypersomnia Opioid dependence with current use Weight loss Chronic pain COPD (chronic obstructive pulmonary disease) Depression NELSON (acute kidney injury) Hypokalemia Chief Complaint STOMACH ISSUES SELF REFERRED - DIARRHEA AND LOSING WEIGHT DYSPNEA DYSPNEA DYSPNEA In office walk 3 M FU G47.10 Hypersomnia EST (SELF) 3 M FU NELSON, HYPERKALEMIA NELSON, HYPERKALEMIA NELSON, HYPERKALEMIA NELSON, HYPERKALEMIA NELSON, HYPERKALEMIA NELSON, HYPERKALEMIA NELSON, HYPERKALEMIA NELSON, HYPERKALEMIA NELSON, HYPERKALEMIA NELSON, HYPERKALEMIA NELSON, HYPERKALEMIA NELSON, HYPERKALEMIA NELSON, HYPERKALEMIA NELSON, HYPERKALEMIA HYPERTENSION, MURMUR 2 units PRBC's Reason for Visit Acute on chronic alt eration in mental status Shortness of breath on exertion GERD (gastroesophageal reflux disease) Left lower quadrant pain Weight loss Daytime hypersomnia COPD (chronic obstructive pulmonary disease) Hypoxia Orthostatic hypotension Daytime hypersomnia Opioid dependence with current use Weight loss Chronic pain COPD (chronic obstructive pulmonary disease) Depression NELSON (acute kidney injury) Hypokalemia Chief Complaint SELF REFERRED - DIAR DEANGELO AND LOSING WEIGHT DYSPNEA DYSPNEA DYSPNEA In office walk 3 M FU G47.10 Hypersomnia EST (SELF) 3 M FU NELSON, HYPERKALEMIA NELSON, HYPERKALEMIA NELSON, HYPERKALEMIA NELSON, HYPERKALEMIA NELSON, HYPERKALEMIA NELSON, HYPERKALEMIA NELSON, HYPERKALEMIA NELSON, HYPERKALEMIA NELSON, HYPERKALEMIA NELSON, HYPERKALEMIA NELSON, HYPERKALEMIA NELSON, HYPERKALEMIA NELSON, HYPERKALEMIA NELSON, HYPERKALEMIA HYPERTENSION, MURMUR 2 units PRBC's F17.210 Reason for Visit Left lower quadrant pain Weight loss Daytime hypersomnia COPD (chronic obstructive pulmonary disease) Hypoxia Orthostatic hypotension Daytime hypersomnia Opioid dependence with current use Weight loss Chronic pain COPD (chronic obstructive pulmonary disease) Depression NELSON (acute kidney injury) Hypokalemia Chief Complaint SELF REFERRED - DIAR DEANGELO AND LOSING WEIGHT DYSPNEA DYSPNEA DYSPNEA In office walk 3 M FU G47.10 Hypersomnia EST (SELF) 3 M FU NELSON, HYPERKALEMIA NELSON, HYPERKALEMIA NELSON, HYPERKALEMIA NELSON, HYPERKALEMIA NELSON, HYPERKALEMIA NELSON, HYPERKALEMIA NELSON, HYPERKALEMIA NELSON, HYPERKALEMIA NELSON, HYPERKALEMIA NELSON, HYPERKALEMIA NELSON, HYPERKALEMIA NELSON, HYPERKALEMIA NELSON, HYPERKALEMIA NELSON, HYPERKALEMIA HYPERTENSION, MURMUR 2 units PRBC's F17.210 Hospital FU EORDER Reason for Visit Left lower quadrant pain Weight loss Daytime hypersomnia COPD (chronic obstructive pulmonary disease) Hypoxia Orthostatic hypotension Daytime hypersomnia Opioid dependence with current use Weight loss Chronic pain COPD (chronic obstructive pulmonary disease) Depression NELSON (acute kidney injury) Hypokalemia Macrocytic anemia Weight loss Chief Complaint DYSPNEA DYSPNEA DYSPNEA In office walk 3 M FU G47.10 Hypersomnia EST (SELF) 3 M FU NELSON, HYPERKALEMIA NELSON, HYPERKALEMIA NELSON, HYPERKALEMIA NELSON, HYPERKALEMIA NELSON, HYPERKALEMIA NELSON, HYPERKALEMIA NELSON, HYPERKALEMIA NELSON, HYPERKALEMIA NELSON, HYPERKALEMIA NELSON, HYPERKALEMIA NELSON, HYPERKALEMIA NELSON, HYPERKALEMIA NELSON, HYPERKALEMIA NELSON, HYPERKALEMIA HYPERTENSION, MURMUR 2 units PRBC's F17.210 Hospital FU EORDER cap endo 3 M FU ABN LUNG FINDING Reason for Visit Daytime hypersomnia COPD (chronic obstructive pulmonary disease) Hypoxia Orthostatic hypotension Daytime hypersomnia Opioid dependence with current use Weight loss Chronic pain COPD (chronic obstructive pulmonary disease) Depression NELSON (acute kidney injury) Hypokalemia Macrocytic anemia Weight loss Lung nodule COPD (chronic obstructive pulmonary disease) Hypoxia Chief Complaint DYSPNEA In office walk 3 M FU G47.10 Hypersomnia EST (SELF) 3 M FU NELSON, HYPERKALEMIA NELSON, HYPERKALEMIA NELSON, HYPERKALEMIA NELSON, HYPERKALEMIA NELSON, HYPERKALEMIA NELSON, HYPERKALEMIA NELSON, HYPERKALEMIA NELSON, HYPERKALEMIA NELSON, HYPERKALEMIA NELSON, HYPERKALEMIA NELSON, HYPERKALEMIA NELSON, HYPERKALEMIA NELSON, HYPERKALEMIA NELSON, HYPERKALEMIA HYPERTENSION, MURMUR 2 units PRBC's F17.210 [facility] EORDER cap endo 3 M FU ABN LUNG FINDING NH FOLLOW UP Reason for Visit Daytime hypersomnia COPD (chronic obstructive pulmonary disease) Hypoxia Orthostatic hypotension Daytime hypersomnia Opioid dependence with current use Weight loss Chronic pain COPD (chronic obstructive pulmonary disease) Depression NELSON (acute kidney injury) Hypokalemia Macrocytic anemia Weight loss Lung nodule COPD (chronic obstructive pulmonary disease) Hypoxia Macrocytic anemia Peptic ulcer of stomach COPD (chronic obstructive pulmonary disease) NELSON (acute kidney injury) Chief Complaint Admit Date 6 wk FU September 25, 2024 1:55pm skin issues October 20, 2024 3: 07pm 4-6 W FU October 30, 2024 2 :09pm 6 M FU November 09, 2024 2 :31pm E-ORDER November 09, 2024 4 :17pm abnormal overnight pulse ox with hyperso mnia November 09, 2024 7:38pm STOOL DROPOFF- EORDER November 13, 2024 11:11am SOB November 20, 2024 1 :44pm moderate obstructive sleep apnea on PSG November 25, 2024 8:00pm 1 Y FU December 10, 2024 1:15pm 6 wk FU December 11, 2024 2:31pm CSA December 22, 2024 1:0 0pm CROHNS December 25, 2024 11: 11am 6 M FU December 30, 2024 12: 36pm Reason for Visit Admit Date Oral thrush September 25, 2024 1:55pm COPD (chronic obstructive pulmonary dise ase) September 25, 2024 1:55pm Lung nodule September 25, 2024 1:55pm Shortness of breath September 25, 2024 1:55pm Chronic pruritus October 20, 2024 3: 07pm Daytime hypersomnia October 30, 2024 2 :09pm COPD (chronic obstructive pulmonary dise ase) October 30, 2024 2:09pm Lung nodule October 30, 2024 2 :09pm Shortness of breath October 30, 2024 2 :09pm Celiac disease November 09, 2024 2 :31pm Crohn's disease November 09, 2024 2 :31pm Macrocytic anemia November 09, 2024 2 :31pm GERD (gastroesophageal reflux disease) J anuary 2024 2:31pm Aortic root dilatation December 10 1:15pm Orthostatic hypotension December 10, 025 1:15pm COPD (chronic obstructive pulmonary dise ase) December 10, 2024 1:15pm Hyperlipidemia December 10, 2024 1:15pm Central sleep apnea December 11, 2024 2:31pm Obstructive sleep apnea December 11, 025 2:31pm COPD (chronic obstructive pulmonary dise ase) December 11, 2024 2:31pm Lung nodule December 11, 2024 2:31pm Shortness of breath December 11, 2024 2:31pm Aortic root dilatation December 30, 2024 12:36pm BPH with obstruction/lower urinary tract symptoms December 30, 2024 12:36pm Central sleep apnea December 30, 2024 12: 36pm Skin tags, multiple acquired December 30, 2024 12:36pm Chronic pruritus December 30, 2024 12: 36pm COPD (chronic obstructive pulmonary dise ase) December 30, 2024 12:36pm History of stomach ulcers December 30 12:36pm Chief Complaint Admit Date 6 wk FU September 25, 2024 1:55pm skin issues October 20, 2024 3: 07pm 4-6 W FU October 30, 2024 2 :09pm 6 M FU November 09, 2024 2 :31pm E-ORDER November 09, 2024 4 :17pm abnormal overnight pulse ox with hyperso mnia November 09, 2024 7:38pm STOOL DROPOFF- EORDER November 13, 2024 11:11am SOB November 20, 2024 1 :44pm moderate obstructive sleep apnea on PSG November 25, 2024 8:00pm 1 Y FU December 10, 2024 1:15pm 6 wk FU December 11, 2024 2:31pm CSA December 22, 2024 1:0 0pm CROHNS December 25, 2024 11: 11am 6 M FU December 30, 2024 12: 36pm PER REMINGTON GAY. January 01, 2025 11: 00am Reason for Visit Admit Date Oral thrush September 25, 2024 1:55pm COPD (chronic obstructive pulmonary dise ase) September 25, 2024 1:55pm Lung nodule September 25, 2024 1:55pm Shortness of breath September 25, 2024 1:55pm Chronic pruritus October 20, 2024 3: 07pm Daytime hypersomnia October 30, 2024 2 :09pm COPD (chronic obstructive pulmonary dise ase) October 30, 2024 2:09pm Lung nodule October 30, 2024 2 :09pm Shortness of breath October 30, 2024 2 :09pm Celiac disease November 09, 2024 2 :31pm Crohn's disease November 09, 2024 2 :31pm Macrocytic anemia November 09, 2024 2 :31pm GERD (gastroesophageal reflux disease) J anuary 2024 2:31pm Aortic root dilatation December 10 1:15pm Orthostatic hypotension December 10 025 1:15pm COPD (chronic obstructive pulmonary dise ase) December 10, 2024 1:15pm Hyperlipidemia December 10, 2024 1:15pm Central sleep apnea December 11, 2024 2:31pm Obstructive sleep apnea December 11 025 2:31pm COPD (chronic obstructive pulmonary dise ase) December 11, 2024 2:31pm Lung nodule December 11, 2024 2:31pm Shortness of breath December 11, 2024 2:31pm Aortic root dilatation December 30, 2024 12:36pm BPH with obstruction/lower urinary tract symptoms December 30, 2024 12:36pm Central sleep apnea December 30, 2024 12: 36pm Skin tags, multiple acquired December 30, 2024 12:36pm Chronic pruritus December 30, 2024 12: 36pm COPD (chronic obstructive pulmonary dise ase) December 30, 2024 12:36pm History of stomach ulcers December 30 12:36pm Celiac disease January 04, 2025 5:2 5am Chief Complaint Admit Date 6 wk FU September 25, 2024 1:55pm skin issues October 20, 2024 3: 07pm 4-6 W FU October 30, 2024 2 :09pm 6 M FU November 09, 2024 2 :31pm E-ORDER November 09, 2024 4 :17pm abnormal overnight pulse ox with hyperso mnia November 09, 2024 7:38pm STOOL DROPOFF- EORDER November 13, 2024 11:11am SOB November 20, 2024 1 :44pm moderate obstructive sleep apnea on PSG November 25, 2024 8:00pm 1 Y FU December 10, 2024 1:15pm 6 wk FU December 11, 2024 2:31pm CSA December 22, 2024 1:0 0pm CROHNS December 25, 2024 11: 11am 6 M FU December 30, 2024 12: 36pm PER REMINGTON REQ. January 01, 2025 11: 00am skin tag removal January 06, 2025 1:4 2pm RE-EDUCATE ON MASK FIT F40 FFM December 12:00pm Reason for Visit Admit Date Oral thrush September 25, 2024 1:55pm COPD (chronic obstructive pulmonary dise ase) September 25, 2024 1:55pm Lung nodule September 25, 2024 1:55pm Shortness of breath September 25, 2024 1:55pm Chronic pruritus October 20, 2024 3: 07pm Daytime hypersomnia October 30, 2024 2 :09pm COPD (chronic obstructive pulmonary dise ase) October 30, 2024 2:09pm Lung nodule October 30, 2024 2 :09pm Shortness of breath October 30, 2024 2 :09pm Celiac disease November 09, 2024 2 :31pm Crohn's disease November 09, 2024 2 :31pm Macrocytic anemia November 09, 2024 2 :31pm GERD (gastroesophageal reflux disease) J anuary 2024 2:31pm Aortic root dilatation December 10 1:15pm Orthostatic hypotension December 10, 2 025 1:15pm COPD (chronic obstructive pulmonary dise ase) December 10, 2024 1:15pm Hyperlipidemia December 10, 2024 1:15pm Central sleep apnea December 11, 2024 2:31pm Obstructive sleep apnea December 11, 025 2:31pm COPD (chronic obstructive pulmonary dise ase) December 11, 2024 2:31pm Lung nodule December 11, 2024 2:31pm Shortness of breath December 11, 2024 2:31pm Aortic root dilatation December 30, 2024 12:36pm BPH with obstruction/lower urinary tract symptoms December 30, 2024 12:36pm Central sleep apnea December 30, 2024 12: 36pm Skin tags, multiple acquired December 30, 2024 12:36pm Chronic pruritus December 30, 2024 12: 36pm COPD (chronic obstructive pulmonary dise ase) December 30, 2024 12:36pm History of stomach ulcers December 30 12:36pm Celiac disease January 04, 2025 5:2 5am Skin tags, multiple acquired January 06, 2025 1:42pm Chief Complaint Admit Date skin issues October 20, 2024 3: 07pm 4-6 W FU October 30, 2024 2 :09pm 6 M FU November 09, 2024 2 :31pm E-ORDER November 09, 2024 4 :17pm abnormal overnight pulse ox with hyperso mnia November 09, 2024 7:38pm STOOL DROPOFF- EORDER November 13, 2024 11:11am SOB November 20, 2024 1 :44pm moderate obstructive sleep apnea on PSG November 25, 2024 8:00pm 1 Y FU December 10, 2024 1:15pm 6 wk FU December 11, 2024 2:31pm CSA December 22, 2024 1:0 0pm CROHNS December 25, 2024 11: 11am 6 M FU December 30, 2024 12: 36pm PER REMINGTON REQ. January 01, 2025 11: 00am Celiac disease January 04, 2025 9:0 0am skin tag removal January 06, 2025 1:4 2pm RE-EDUCATE ON MASK FIT F40 FFM December 12:00pm Test Result January 26, 2025 1:1 2pm EORDER January 26, 2025 2:3 4pm Reason for Visit Admit Date Chronic pruritus October 20, 2024 3: 07pm Daytime hypersomnia October 30, 2024 2 :09pm COPD (chronic obstructive pulmonary dise ase) October 30, 2024 2:09pm Lung nodule October 30, 2024 2 :09pm Shortness of breath October 30, 2024 2 :09pm Celiac disease November 09, 2024 2 :31pm Crohn's disease November 09, 2024 2 :31pm Macrocytic anemia November 09, 2024 2 :31pm GERD (gastroesophageal reflux disease) J anuary 2024 2:31pm Aortic root dilatation December 10 1:15pm Orthostatic hypotension December 10 025 1:15pm COPD (chronic obstructive pulmonary dise ase) December 10, 2024 1:15pm Hyperlipidemia December 10, 2024 1:15pm Central sleep apnea December 11, 2024 2:31pm Obstructive sleep apnea December 11 025 2:31pm COPD (chronic obstructive pulmonary dise ase) December 11, 2024 2:31pm Lung nodule December 11, 2024 2:31pm Shortness of breath December 11, 2024 2:31pm Aortic root dilatation December 30, 2024 12:36pm BPH with obstruction/lower urinary tract symptoms December 30, 2024 12:36pm Central sleep apnea December 30, 2024 12: 36pm Skin tags, multiple acquired December 30, 2024 12:36pm Chronic pruritus December 30, 2024 12: 36pm COPD (chronic obstructive pulmonary dise ase) December 30, 2024 12:36pm History of stomach ulcers December 30 12:36pm Celiac disease January 04, 2025 5:2 5am Skin tags, multiple acquired January 06, 2025 1:42pm 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 26, 2025 1:1 2pm Crohn's disease January 26, 2025 1:1 2pm Dilated cbd, acquired January 26, 2025 1 :12pm Lesion of pancreas January 26, 2025 1:1 2pm Macrocytic anemia January 26, 2025 1:1 2pm Chief Complaint Admit Date 4-6 W FU October 30, 2024 2 :09pm 6 M FU November 09, 2024 2 :31pm E-ORDER November 09, 2024 4 :17pm abnormal overnight pulse ox with hyperso mnia November 09, 2024 7:38pm STOOL DROPOFF- EORDER November 13, 2024 11:11am SOB November 20, 2024 1 :44pm moderate obstructive sleep apnea on PSG November 25, 2024 8:00pm 1 Y FU December 10, 2024 1:15pm 6 wk FU December 11, 2024 2:31pm CSA December 22, 2024 1:0 0pm CROHNS December 25, 2024 11: 11am 6 M FU December 30, 2024 12: 36pm PER REMINGTON REQ. January 01, 2025 11: 00am Celiac disease January 04, 2025 9:0 0am skin tag removal January 06, 2025 1:4 2pm RE-EDUCATE ON MASK FIT F40 FFM December 12:00pm Test Result January 26, 2025 1:1 2pm EORDER January 26, 2025 2:3 4pm Reason for Visit Admit Date Daytime hypersomnia October 30, 2024 2 :09pm COPD (chronic obstructive pulmonary dise ase) October 30, 2024 2:09pm Lung nodule October 30, 2024 2 :09pm Shortness of breath October 30, 2024 2 :09pm Celiac disease November 09, 2024 2 :31pm Crohn's disease November 09, 2024 2 :31pm Macrocytic anemia November 09, 2024 2 :31pm GERD (gastroesophageal reflux disease) J anuary 2024 2:31pm Aortic root dilatation December 10 1:15pm Orthostatic hypotension December 10 025 1:15pm COPD (chronic obstructive pulmonary dise ase) December 10, 2024 1:15pm Hyperlipidemia December 10, 2024 1:15pm Central sleep apnea December 11, 2024 2:31pm Obstructive sleep apnea December 11 025 2:31pm COPD (chronic obstructive pulmonary dise ase) December 11, 2024 2:31pm Lung nodule December 11, 2024 2:31pm Shortness of breath December 11, 2024 2:31pm Aortic root dilatation December 30, 2024 12:36pm BPH with obstruction/lower urinary tract symptoms December 30, 2024 12:36pm Central sleep apnea December 30, 2024 12: 36pm Skin tags, multiple acquired December 30, 2024 12:36pm Chronic pruritus December 30, 2024 12: 36pm COPD (chronic obstructive pulmonary dise ase) December 30, 2024 12:36pm History of stomach ulcers December 30 12:36pm Celiac disease January 04, 2025 5:2 5am Skin tags, multiple acquired January 06, 2025 1:42pm 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 26, 2025 1:1 2pm Crohn's disease January 26, 2025 1:1 2pm Dilated cbd, acquired January 26, 2025 1 :12pm Lesion of pancreas January 26, 2025 1:1 2pm Macrocytic anemia January 26, 2025 1:1 2pm Chief Complaint Admit Date 4-6 W FU October 30, 2024 2 :09pm 6 M FU November 09, 2024 2 :31pm E-ORDER November 09, 2024 4 :17pm abnormal overnight pulse ox with hyperso mnia November 09, 2024 7:38pm STOOL DROPOFF- EORDER November 13, 2024 11:11am SOB November 20, 2024 1 :44pm moderate obstructive sleep apnea on PSG November 25, 2024 8:00pm 1 Y FU December 10, 2024 1:15pm 6 wk FU December 11, 2024 2:31pm CSA December 22, 2024 1:0 0pm CROHNS December 25, 2024 11: 11am 6 M FU December 30, 2024 12: 36pm PER REMINGTON REQ. January 01, 2025 11: 00am Celiac disease January 04, 2025 9:0 0am skin tag removal January 06, 2025 1:4 2pm RE-EDUCATE ON MASK FIT F40 FFM December 12:00pm Test Result January 26, 2025 1:1 2pm EORDER January 26, 2025 2:3 4pm Abnormal findings on diagnostic imaging of other s February 22, 2025 12:01pm RT LEG SKIN TEAR February 24, 2025 1:08p m Reason for Visit Admit Date Daytime hypersomnia October 30, 2024 2 :09pm COPD (chronic obstructive pulmonary dise ase) October 30, 2024 2:09pm Lung nodule October 30, 2024 2 :09pm Shortness of breath October 30, 2024 2 :09pm Celiac disease November 09, 2024 2 :31pm Crohn's disease November 09, 2024 2 :31pm Macrocytic anemia November 09, 2024 2 :31pm GERD (gastroesophageal reflux disease) J anuary 2024 2:31pm Aortic root dilatation December 10 1:15pm Orthostatic hypotension December 10 025 1:15pm COPD (chronic obstructive pulmonary dise ase) December 10, 2024 1:15pm Hyperlipidemia December 10, 2024 1:15pm Central sleep apnea December 11, 2024 2:31pm Obstructive sleep apnea December 11 025 2:31pm COPD (chronic obstructive pulmonary dise ase) December 11, 2024 2:31pm Lung nodule December 11, 2024 2:31pm Shortness of breath December 11, 2024 2:31pm Aortic root dilatation December 30, 2024 12:36pm BPH with obstruction/lower urinary tract symptoms December 30, 2024 12:36pm Central sleep apnea December 30, 2024 12: 36pm Skin tags, multiple acquired December 30, 2024 12:36pm Chronic pruritus December 30, 2024 12: 36pm COPD (chronic obstructive pulmonary dise ase) December 30, 2024 12:36pm History of stomach ulcers December 30 12:36pm Celiac disease January 04, 2025 5:2 5am Skin tags, multiple acquired January 06, 2025 1:42pm 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 26, 2025 1:1 2pm Crohn's disease January 26, 2025 1:1 2pm Dilated cbd, acquired January 26, 2025 1 :12pm Lesion of pancreas January 26, 2025 1:1 2pm Macrocytic anemia January 26, 2025 1:1 2pm Elevated fecal calprotectin February 24 1:08pm Skin tear February 24, 2025 1:08p m Chief Complaint Admit Date 4-6 W FU October 30, 2024 2 :09pm 6 M FU November 09, 2024 2 :31pm E-ORDER November 09, 2024 4 :17pm abnormal overnight pulse ox with hyperso mnia November 09, 2024 7:38pm STOOL DROPOFF- EORDER November 13, 2024 11:11am SOB November 20, 2024 1 :44pm moderate obstructive sleep apnea on PSG November 25, 2024 8:00pm 1 Y FU December 10, 2024 1:15pm 6 wk FU December 11, 2024 2:31pm CSA December 22, 2024 1:0 0pm CROHNS December 25, 2024 11: 11am 6 M FU December 30, 2024 12: 36pm PER REMINGTON REQ. January 01, 2025 11: 00am Celiac disease January 04, 2025 9:0 0am skin tag removal January 06, 2025 1:4 2pm RE-EDUCATE ON MASK FIT F40 FFM December 12:00pm Test Result January 26, 2025 1:1 2pm EORDER January 26, 2025 2:3 4pm Abnormal findings on diagnostic imaging of other s February 22, 2025 12:01pm RT LEG SKIN TEAR February 24, 2025 1:08p m 11 WK FU February 26, 2025 1:11p m Reason for Visit Admit Date Daytime hypersomnia October 30, 2024 2 :09pm COPD (chronic obstructive pulmonary dise ase) October 30, 2024 2:09pm Lung nodule October 30, 2024 2 :09pm Shortness of breath October 30, 2024 2 :09pm Celiac disease November 09, 2024 2 :31pm Crohn's disease November 09, 2024 2 :31pm Macrocytic anemia November 09, 2024 2 :31pm GERD (gastroesophageal reflux disease) J anuary 2024 2:31pm Aortic root dilatation December 10 1:15pm Orthostatic hypotension December 10 2 025 1:15pm COPD (chronic obstructive pulmonary dise ase) December 10, 2024 1:15pm Hyperlipidemia December 10, 2024 1:15pm Central sleep apnea December 11, 2024 2:31pm Obstructive sleep apnea December 11 025 2:31pm COPD (chronic obstructive pulmonary dise ase) December 11, 2024 2:31pm Lung nodule December 11, 2024 2:31pm Shortness of breath December 11, 2024 2:31pm Aortic root dilatation December 30, 2024 12:36pm BPH with obstruction/lower urinary tract symptoms December 30, 2024 12:36pm Central sleep apnea December 30, 2024 12: 36pm Skin tags, multiple acquired December 30, 2024 12:36pm Chronic pruritus December 30, 2024 12: 36pm COPD (chronic obstructive pulmonary dise ase) December 30, 2024 12:36pm History of stomach ulcers December 30 12:36pm Celiac disease January 04, 2025 5:2 5am Skin tags, multiple acquired January 06, 2025 1:42pm 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 26, 2025 1:1 2pm Crohn's disease January 26, 2025 1:1 2pm Dilated cbd, acquired January 26, 2025 1 :12pm Lesion of pancreas January 26, 2025 1:1 2pm Macrocytic anemia January 26, 2025 1:1 2pm Elevated fecal calprotectin February 24 1:08pm Skin tear February 24, 2025 1:08p m Central sleep apnea February 26, 2025 1:11p m Obstructive sleep apnea February 26, 2025 1 :11pm COPD (chronic obstructive pulmonary dise ase) February 26, 2025 1:11pm Lung nodule February 26, 2025 1:11p m Shortness of breath February 26, 2025 1:11p m Chief Complaint Admit Date STOOL DROPOFF- EORDER November 13, 2024 11:11am SOB November 20, 2024 1 :44pm moderate obstructive sleep apnea on PSG November 25, 2024 8:00pm 1 Y FU December 10, 2024 1:15pm 6 wk FU December 11, 2024 2:31pm CSA December 22, 2024 1:0 0pm CROHNS December 25, 2024 11: 11am 6 M FU December 30, 2024 12: 36pm PER REM[facility] REQ. January 01, 2025 11: 00am Celiac disease January 04, 2025 9:0 0am skin tag removal January 06, 2025 1:4 2pm RE-EDUCATE ON MASK FIT F40 FFM December 12:00pm Test Result January 26, 2025 1:1 2pm EORDER January 26, 2025 2:3 4pm Abnormal findings on diagnostic imaging of other s February 22, 2025 12:01pm RT LEG SKIN TEAR February 24, 2025 1:08p m 11 WK FU February 26, 2025 1:11p m 2 W FU March 10, 2025 12:43 pm Reason for Visit Admit Date Aortic root dilatation December 10 1:15pm Orthostatic hypotension December 10, 025 1:15pm COPD (chronic obstructive pulmonary dise ase) December 10, 2024 1:15pm Hyperlipidemia December 10, 2024 1:15pm Central sleep apnea December 11, 2024 2:31pm Obstructive sleep apnea December 11 025 2:31pm COPD (chronic obstructive pulmonary dise ase) December 11, 2024 2:31pm Lung nodule December 11, 2024 2:31pm Shortness of breath December 11, 2024 2:31pm Aortic root dilatation December 30, 2024 12:36pm BPH with obstruction/lower urinary tract symptoms December 30, 2024 12:36pm Central sleep apnea December 30, 2024 12: 36pm Skin tags, multiple acquired December 30, 2024 12:36pm Chronic pruritus December 30, 2024 12: 36pm COPD (chronic obstructive pulmonary dise ase) December 30, 2024 12:36pm History of stomach ulcers December 30 12:36pm Celiac disease January 04, 2025 5:2 5am Skin tags, multiple acquired January 06, 2025 1:42pm 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 26, 2025 1:1 2pm Crohn's disease January 26, 2025 1:1 2pm Dilated cbd, acquired January 26, 2025 1 :12pm Lesion of pancreas January 26, 2025 1:1 2pm Macrocytic anemia January 26, 2025 1:1 2pm Elevated fecal calprotectin February 24 1:08pm Skin tear February 24, 2025 1:08p m Central sleep apnea February 26, 2025 1:11p m Obstructive sleep apnea February 26, 2025 1 :11pm Smoking greater than 40 pack years February [id number] 1:11pm COPD (chronic obstructive pulmonary dise ase) February 26, 2025 1:11pm Lung nodule February 26, 2025 1:11p m Shortness of breath May 16th, 2025 1:11p m Celiac disease March 10, 2025 12:43 pm Elevated fecal calprotectin March 10 12:43pm Skin tear March 10, 2025 12:43 pm Chronic pain March 10, 2025 12:43 pm Chronic pruritus March 10, 2025 12:43 pm Chief Complaint Admit Date moderate obstructive sleep apnea on PSG November 25, 2024 8:00pm 1 Y FU December 10, 2024 1:15pm 6 wk FU December 11, 2024 2:31pm CSA December 22, 2024 1:0 0pm CROHNS December 25, 2024 11: 11am 6 M FU December 30, 2024 12: 36pm PER JACKS REQ. January 01, 2025 11: 00am Celiac disease January 04, 2025 9:0 0am skin tag removal January 06, 2025 1:4 2pm RE-EDUCATE ON MASK FIT F40 FFM December 12:00pm Test Result January 26, 2025 1:1 2pm EORDER January 26, 2025 2:3 4pm Abnormal findings on diagnostic imaging of other s February 22, 2025 12:01pm RT LEG SKIN TEAR February 24, 2025 1:08p m 11 WK FU February 26, 2025 1:11p m 2 W FU March 10, 2025 12:43 pm CBD PANC LESIONS March 12, 2025 3:45p m SOB, EVAL OF EF PRIOR TO ASV March 16, 2 025 9:34am Reason for Visit Admit Date Aortic root dilatation December 10 1:15pm Orthostatic hypotension December 10, 2 025 1:15pm COPD (chronic obstructive pulmonary dise ase) December 10, 2024 1:15pm Hyperlipidemia December 10, 2024 1:15pm Central sleep apnea December 11, 2024 2:31pm Obstructive sleep apnea December 11, 2 025 2:31pm COPD (chronic obstructive pulmonary dise ase) December 11, 2024 2:31pm Lung nodule December 11, 2024 2:31pm Shortness of breath December 11, 2024 2:31pm Aortic root dilatation December 30, 2024 12:36pm BPH with obstruction/lower urinary tract symptoms December 30, 2024 12:36pm Central sleep apnea December 30, 2024 12: 36pm Skin tags, multiple acquired December 30, 2024 12:36pm Chronic pruritus December 30, 2024 12: 36pm COPD (chronic obstructive pulmonary dise ase) December 30, 2024 12:36pm History of stomach ulcers December 30 12:36pm Celiac disease January 04, 2025 5:2 5am Skin tags, multiple acquired January 06, 2025 1:42pm 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 26, 2025 1:1 2pm Crohn's disease January 26, 2025 1:1 2pm Dilated cbd, acquired January 26, 2025 1 :12pm Lesion of pancreas January 26, 2025 1:1 2pm Macrocytic anemia January 26, 2025 1:1 2pm Elevated fecal calprotectin February 24 1:08pm Skin tear February 24, 2025 1:08p m Central sleep apnea February 26, 2025 1:11p m Obstructive sleep apnea February 26, 2025 1 :11pm Smoking greater than 40 pack years February [id number] 1:11pm COPD (chronic obstructive pulmonary dise ase) February 26, 2025 1:11pm Lung nodule February 26, 2025 1:11p m Shortness of breath February 26, 2025 1:11p m Celiac disease March 10, 2025 12:43 pm Elevated fecal calprotectin March 10 12:43pm Chronic pain March 10, 2025 12:43 pm Chronic pruritus March 10, 2025 12:43 pm Skin tear March 10, 2025 12:43 pm Chief Complaint Admit Date 1 Y FU December 10, 2024 1:15pm 6 wk FU December 11, 2024 2:31pm CSA December 22, 2024 1:0 0pm CROHNS December 25, 2024 11: 11am 6 M FU December 30, 2024 12: 36pm PER REMINGTON GAY. January 01, 2025 11: 00am Celiac disease January 04, 2025 9:0 0am skin tag removal January 06, 2025 1:4 2pm RE-EDUCATE ON MASK FIT F40 FFM December 12:00pm Test Result January 26, 2025 1:1 2pm EORDER January 26, 2025 2:3 4pm Abnormal findings on diagnostic imaging of other s February 22, 2025 12:01pm RT LEG SKIN TEAR February 24, 2025 1:08p m 11 WK FU February 26, 2025 1:11p m 2 W FU March 10, 2025 12:43 pm CBD PANC LESIONS March 12, 2025 3:45p m SOB, EVAL OF EF PRIOR TO ASV March 16 025 9:34am Acute March 26, 2025 12:3 3pm Reason for Visit Admit Date Aortic root dilatation December 10 1:15pm Orthostatic hypotension December 10 025 1:15pm COPD (chronic obstructive pulmonary dise ase) December 10, 2024 1:15pm Hyperlipidemia December 10, 2024 1:15pm Central sleep apnea December 11, 2024 2:31pm Obstructive sleep apnea December 11 025 2:31pm COPD (chronic obstructive pulmonary dise ase) December 11, 2024 2:31pm Lung nodule December 11, 2024 2:31pm Shortness of breath December 11, 2024 2:31pm Aortic root dilatation December 30, 2024 12:36pm BPH with obstruction/lower urinary tract symptoms December 30, 2024 12:36pm Central sleep apnea December 30, 2024 12: 36pm Skin tags, multiple acquired December 30, 2024 12:36pm Chronic pruritus December 30, 2024 12: 36pm COPD (chronic obstructive pulmonary dise ase) December 30, 2024 12:36pm History of stomach ulcers December 30 12:36pm Celiac disease January 04, 2025 5:2 5am Skin tags, multiple acquired January 06, 2025 1:42pm 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 26, 2025 1:1 2pm Crohn's disease January 26, 2025 1:1 2pm Dilated cbd, acquired January 26, 2025 1 :12pm Lesion of pancreas January 26, 2025 1:1 2pm Macrocytic anemia January 26, 2025 1:1 2pm Elevated fecal calprotectin February 24 1:08pm Skin tear February 24, 2025 1:08p m Central sleep apnea February 26, 2025 1:11p m Obstructive sleep apnea February 26, 2025 1 :11pm Smoking greater than 40 pack years February [id number] 1:11pm COPD (chronic obstructive pulmonary dise ase) February 26, 2025 1:11pm Lung nodule February 26, 2025 1:11p m Shortness of breath February 26, 2025 1:11p m Celiac disease March 10, 2025 12:43 pm Elevated fecal calprotectin March 10 12:43pm Chronic pain March 10, 2025 12:43 pm Chronic pruritus March 10, 2025 12:43 pm Skin tear March 10, 2025 12:43 pm Central sleep apnea March 26, 2025 12:3 3pm Obstructive sleep apnea March 26, 2025 12:33pm Smoking greater than 40 pack years March 26, 2025 12:33pm COPD (chronic obstructive pulmonary dise ase) March 26, 2025 12:33pm Lung nodule March 26, 2025 12:3 3pm Shortness of breath March 26, 2025 12:3 3pm Chief Complaint Admit Date SOB November 20, 2024 1 :44pm moderate obstructive sleep apnea on PSG November 25, 2024 8:00pm 1 Y FU December 10, 2024 1:15pm 6 wk December 11, 2024 2:31pm CSA December 22, 2024 1:0 0pm CROHNS December 25, 2024 11: 11am 6 M FU December 30, 2024 12: 36pm PER [facility] REQ. January 01, 2025 11: 00am Celiac disease January 04, 2025 9:0 0am skin tag removal January 06, 2025 1:4 2pm RE-EDUCATE ON MASK FIT F40 FFM December 12:00pm Test Result January 26, 2025 1:1 2pm EORDER January 26, 2025 2:3 4pm Abnormal findings on diagnostic imaging of other s February 22, 2025 12:01pm RT LEG SKIN TEAR February 24, 2025 1:08p m 11 WK FU February 26, 2025 1:11p m 2 W FU March 10, 2025 12:43 pm CBD PANC LESIONS March 12, 2025 3:45p m SOB, EVAL OF EF PRIOR TO ASV March 16, 025 9:34am Chief Complaint Admit Date 1 Y FU December 10, 2024 1:15pm 6 wk FU December 11, 2024 2:31pm CSA December 22, 2024 1:0 0pm CROHNS December 25, 2024 11: 11am 6 M FU December 30, 2024 12: 36pm PER [facility] REQ. January 01, 2025 11: 00am Celiac disease January 04, 2025 9:0 0am skin tag removal January 06, 2025 1:4 2pm RE-EDUCATE ON MASK FIT F40 FFM December 12:00pm Test Result January 26, 2025 1:1 2pm EORDER January 26, 2025 2:3 4pm Abnormal findings on diagnostic imaging of other s February 22, 2025 12:01pm RT LEG SKIN TEAR February 24, 2025 1:08p m 11 WK FU February 26, 2025 1:11p m 2 W FU March 10, 2025 12:43 pm CBD PANC LESIONS March 12, 2025 3:45p m SOB, EVAL OF EF PRIOR TO ASV March 16, 2 025 9:34am Acute March 26, 2025 12:3 3pm CENTRAL SLEEP APNEA; FAILED BIPAP [facility] e 2024 7:41pm Chief Complaint Admit Date CSA December 22, 2024 1:0 0pm CROHNS December 25, 2024 11: 11am 6 M FU December 30, 2024 12: 36pm PER [facility] REQ. January 01, 2025 11: 00am Celiac disease January 04, 2025 9:0 0am skin tag removal January 06, 2025 1:4 2pm RE-EDUCATE ON MASK FIT F40 FFM December 12:00pm Test Result January 26, 2025 1:1 2pm EORDER January 26, 2025 2:3 4pm Abnormal findings on diagnostic imaging of other s February 22, 2025 12:01pm RT LEG SKIN TEAR February 24, 2025 1:08p m 11 WK FU February 26, 2025 1:11p m 2 W FU March 10, 2025 12:43 pm CBD PANC LESIONS March 12, 2025 3:45p m SOB, EVAL OF EF PRIOR TO ASV March 16, 2 025 9:34am Acute March 26, 2025 12:3 3pm CENTRAL SLEEP APNEA; FAILED BIPAP [facility] 2024 7:41pm Acute Sick April 20, 2025 1:02p m Reason for Visit Admit Date Aortic root dilatation December 30, 2024 12:36pm BPH with obstruction/lower urinary tract symptoms December 30, 2024 12:36pm Central sleep apnea December 30, 2024 12: 36pm Skin tags, multiple acquired December 30, 2024 12:36pm Chronic pruritus December 30, 2024 12: 36pm COPD (chronic obstructive pulmonary dise ase) December 30, 2024 12:36pm History of stomach ulcers December 30 12:36pm Celiac disease January 04, 2025 5:2 5am Skin tags, multiple acquired January 06, 2025 1:42pm 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 26, 2025 1:1 2pm Crohn's disease January 26, 2025 1:1 2pm Dilated cbd, acquired January 26, 2025 1 :12pm Lesion of pancreas January 26, 2025 1:1 2pm Macrocytic anemia January 26, 2025 1:1 2pm Elevated fecal calprotectin February 24 1:08pm Skin tear February 24, 2025 1:08p m Central sleep apnea February 26, 2025 1:11p m Obstructive sleep apnea February 26, 2025 1 :11pm Smoking greater than 40 pack years February [id number] 1:11pm COPD (chronic obstructive pulmonary dise ase) February 26, 2025 1:11pm Lung nodule February 26, 2025 1:11p m Shortness of breath February 26, 2025 1:11p m Celiac disease March 10, 2025 12:43 pm Elevated fecal calprotectin March 10 12:43pm Chronic pain March 10, 2025 12:43 pm Chronic pruritus March 10, 2025 12:43 pm Skin tear March 10, 2025 12:43 pm Central sleep apnea March 26, 2025 12:3 3pm Obstructive sleep apnea March 26, 2025 12:33pm Smoking greater than 40 pack years March 26, 2025 12:33pm COPD (chronic obstructive pulmonary dise ase) March 26, 2025 12:33pm Lung nodule March 26, 2025 12:3 3pm Shortness of breath March 26, 2025 12:3 3pm Central sleep apnea April 20, 2025 1:02p m Obstructive sleep apnea April 20, 2025 1 :02pm Smoking greater than 40 pack years April 20, 2025 1:02pm COPD (chronic obstructive pulmonary dise ase) April 20, 2025 1:02pm Lung nodule April 20, 2025 1:02p m Shortness of breath April 20, 2025 1:02p m Chief Complaint Admit Date 6 M FU December 30, 2024 12: 36pm PER [facility] REQ. January 01, 2025 11: 00am Celiac disease January 04, 2025 9:0 0am skin tag removal January 06, 2025 1:4 2pm RE-EDUCATE ON MASK FIT F40 FFM December 12:00pm Test Result January 26, 2025 1:1 2pm EORDER January 26, 2025 2:3 4pm Abnormal findings on diagnostic imaging of other s February 22, 2025 12:01pm RT LEG SKIN TEAR February 24, 2025 1:08p m 11 WK FU February 26, 2025 1:11p m 2 W FU March 10, 2025 12:43 pm CBD PANC LESIONS March 12, 2025 3:45p m SOB, EVAL OF EF PRIOR TO ASV March 16, 025 9:34am Acute March 26, 2025 12:3 3pm CENTRAL SLEEP APNEA; FAILED BIPAP [facility] 2024 7:41pm Acute Sick April 20, 2025 1:02p m CHEST PA & LAT April 20, 2025 2:26p m Reason for Visit Admit Date Aortic root dilatation December 30, 2024 12:36pm BPH with obstruction/lower urinary tract symptoms December 30, 2024 12:36pm Central sleep apnea December 30, 2024 12: 36pm Skin tags, multiple acquired December 30, 2024 12:36pm Chronic pruritus December 30, 2024 12: 36pm COPD (chronic obstructive pulmonary dise ase) December 30, 2024 12:36pm History of stomach ulcers December 30 12:36pm Celiac disease January 04, 2025 5:2 5am Skin tags, multiple acquired January 06, 2025 1:42pm 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 26, 2025 1:1 2pm Crohn's disease January 26, 2025 1:1 2pm Dilated cbd, acquired January 26, 2025 1 :12pm Lesion of pancreas January 26, 2025 1:1 2pm Macrocytic anemia January 26, 2025 1:1 2pm Elevated fecal calprotectin February 24 1:08pm Skin tear February 24, 2025 1:08p m Central sleep apnea February 26, 2025 1:11p m Obstructive sleep apnea February 26, 2025 1 :11pm Smoking greater than 40 pack years February [id number] 1:11pm COPD (chronic obstructive pulmonary dise ase) February 26, 2025 1:11pm Lung nodule February 26, 2025 1:11p m Shortness of breath February 26, 2025 1:11p m Celiac disease March 10, 2025 12:43 pm Elevated fecal calprotectin March 10 12:43pm Chronic pain March 10, 2025 12:43 pm Chronic pruritus March 10, 2025 12:43 pm Skin tear March 10, 2025 12:43 pm Central sleep apnea March 26, 2025 12:3 3pm Obstructive sleep apnea March 26, 2025 12:33pm Smoking greater than 40 pack years March 26, 2025 12:33pm COPD (chronic obstructive pulmonary dise ase) March 26, 2025 12:33pm Lung nodule March 26, 2025 12:3 3pm Shortness of breath March 26, 2025 12:3 3pm Bronchiectasis April 20, 2025 1:02p m Central sleep apnea April 20, 2025 1:02p m Obstructive sleep apnea April 20, 2025 1 :02pm Smoking greater than 40 pack years April 20, 2025 1:02pm COPD (chronic obstructive pulmonary dise ase) April 20, 2025 1:02pm Lung nodule April 20, 2025 1:02p m Shortness of breath April 20, 2025 1:02p m Chief Complaint Admit Date Celiac disease January 04, 2025 9:0 0am skin tag removal January 06, 2025 1:4 2pm RE-EDUCATE ON MASK FIT F40 FFM December 12:00pm Test Result January 26, 2025 1:1 2pm EORDER January 26, 2025 2:3 4pm Abnormal findings on diagnostic imaging of other s February 22, 2025 12:01pm RT LEG SKIN TEAR February 24, 2025 1:08p m 11 WK FU February 26, 2025 1:11p m 2 W FU March 10, 2025 12:43 pm CBD PANC LESIONS March 12, 2025 3:45p m SOB, EVAL OF EF PRIOR TO ASV March 16 9:34am Acute March 26, 2025 12:3 3pm CENTRAL SLEEP APNEA; FAILED BIPAP [facility] 2024 7:41pm Acute Sick April 20, 2025 1:02p m CHEST PA & LAT April 20, 2025 2:26p m CSA April 27, 2025 1:34 pm Reason for Visit Admit Date Celiac disease January 04, 2025 5:2 5am Skin tags, multiple acquired January 06, 2025 1:42pm 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 26, 2025 1:1 2pm Crohn's disease January 26, 2025 1:1 2pm Dilated cbd, acquired January 26, 2025 1 :12pm Lesion of pancreas January 26, 2025 1:1 2pm Macrocytic anemia January 26, 2025 1:1 2pm Elevated fecal calprotectin February 24 1:08pm Skin tear February 24, 2025 1:08p m Central sleep apnea February 26, 2025 1:11p m Obstructive sleep apnea February 26, 2025 1 :11pm Smoking greater than 40 pack years February [id number] 1:11pm COPD (chronic obstructive pulmonary dise ase) February 26, 2025 1:11pm Lung nodule February 26, 2025 1:11p m Shortness of breath February 26, 2025 1:11p m Celiac disease March 10, 2025 12:43 pm Elevated fecal calprotectin March 10 12:43pm Chronic pain March 10, 2025 12:43 pm Chronic pruritus March 10, 2025 12:43 pm Skin tear March 10, 2025 12:43 pm Central sleep apnea March 26, 2025 12:3 3pm Obstructive sleep apnea March 26, 2025 12:33pm Smoking greater than 40 pack years Jessica 13th, 2025 12:33pm COPD (chronic obstructive pulmonary dise ase) March 26, 2025 12:33pm Lung nodule March 26, 2025 12:3 3pm Shortness of breath March 26, 2025 12:3 3pm Bronchiectasis April 20, 2025 1:02p m Central sleep apnea April 20, 2025 1:02p m Obstructive sleep apnea April 20, 2025 1 :02pm Smoking greater than 40 pack years April 20, 2025 1:02pm COPD (chronic obstructive pulmonary dise ase) April 20, 2025 1:02pm Lung nodule April 20, 2025 1:02p m Shortness of breath April 20, 2025 1:02p m Family History No Family History Records Found Relationship Condition Age at Onset Recorded Date/T jose mother Myocardial infarction 49 Depression Unknown father Hypertension Unknown Cerebrovascular accident (CVA) 49 sister Disorder of thyroid Unknown uncle Unknown Advance Directives No Advanced Directives Records Found Advance Directive Response Recorded Date/ Time Living Will Yes July 01, 2021 5:42pm Power of Fire Officer Yes June 5:42pm Advance Directive Response Recorded Date/ Time Name of Medical Power of Fire Officer FREDERICK Issa January 12, 2023 3:35pm Living Will Yes January 12, 2023 3:35pm Power of Fire Officer Yes January 12 3:35pm Advance Directive Response Recorded Date/ Time Name of Medical Power of Fire Officer FREDERICK Issa January 12, 2023 3:35pm Name of Medical Power of Fire Officer FREDERICK MILDRED, S /O January 14, 2023 5:20pm Living Will Yes January 14, 2023 5:20pm Power of Fire Officer Yes January 14 5:20pm Advance Directive Response Recorded Date/ Time Living Will Yes January 14, 2023 5:20pm Power of Fire Officer Yes January 14 5:20pm Advance Directive Response Recorded Date/ Time Living Will Yes January 14, 2023 4:20pm Power of Fire Officer Yes January 14 4:20pm Advance Directive Response Recorded Date/ Time Name of Medical Power of Fire Officer FRIEND October 03, 2023 10:51am Living Will No October 03, 2 023 10:51am Power of Fire Officer Yes October 03, 2023 10:51am Advance Directive Response Recorded Date/ Time Name of Medical Power of Fire Officer FRIEND October 03, 2023 10:51am Name of Medical Power of Fire Officer Frederick Kitty December 03, 2023 4:39pm Living Will Yes December 03, 024 4:39pm Power of Fire Officer Yes December 03, 2023 4:39pm Advance Directive Response Recorded Date/ Time Name of Medical Power of Fire Officer FRIEND October 03, 2023 11:51am Name of Medical Power of Fire Officer Frederick Kitty December 03, 2023 5:39pm Name of Medical Power of Fire Officer FREDERICK KITTY December 31, 2023 3:46pm Living Will Yes December 31, 2023 3:46pm Power of Fire Officer Yes December 30 3:46pm Advance Directive Response Recorded Date/ Time Name of Medical Power of Fire Officer Frederick Kitty December 03, 2023 5:39pm Name of Medical Power of Fire Officer FREDERICK KITTY December 31, 2023 3:46pm Living Will Yes December 31, 2023 3:46pm Power of Fire Officer Yes December 30 3:46pm Documents on File Type Date Recorded Patient [facility] Expl anation Advance Directive(s) 06/03/2024 7:28 AM Advance Directive Response Recorded Date/ Time Living Will No October 03, 2 023 11:51am Do you have a Healthcare Power of Fire Officer? Yes October 03, 2023 11:51am Living Will Yes December 31, 2023 3:46pm Do you have a Healthcare Power of Fire Officer? Yes December 31, 2023 3:46pm Advance Directive Response Recorded Date/ Time Living Will No October 03, 2 023 11:51am Do you have a Healthcare Power of Fire Officer? Yes October 03, 2023 11:51am Living Will Yes December 31, 2023 3:46pm Do you have a Healthcare Power of Fire Officer? Yes December 31, 2023 3:46pm Living Will Yes December 30, 2024 1:26pm Do you have a Healthcare Power of Fire Officer? Yes December 30, 2024 1:26pm Name of Medical Power of Fire Officer FREDERICK LEVY December 30, 2024 1:26pm Advance Directive Response Recorded Date/ Time Living Will Yes December 31, 2023 3:46pm Do you have a Healthcare Power of Fire Officer? Yes December 31, 2023 3:46pm Living Will Yes December 30, 2024 1:26pm Do you have a Healthcare Power of Fire Officer? Yes December 30, 2024 1:26pm Name of Medical Power of Fire Officer FREDERICK LEVY December 30, 2024 1:26pm Advance Directive Response Recorded Date/ Time Living Will Yes December 30, 2024 1:26pm Do you have a Healthcare Power of Fire Officer? Yes December 30, 2024 1:26pm Name of Medical Power of Fire Officer FREDERICK LEVY December 30, 2024 1:26pm Summary Purpose Additional Source Comments Goals (unrecognized section and content) Goals may be documented in a n alternate sectionGoals may be documented in an alternate sectionGoals may be documented in an alternate section No data available for this sectionGoals may be documented in an alternate sectionGoals may be documented in an alternate sectionGoals may be documented in an alternate section No data available for this sectionGoals may be documented in an alternate sectionGoals may be documented in an alternate section Care Teams (unrecognized sec tion and content) Team Status: Active Member Role Status Dates Dr. Shalini Ferrari , DO Primary Care Provider Active Team Status: Inactive Member Role Status Dates Dr. Shalini Ferrari , DO Primary Care Pr ovider, Attending Provider, Referring Provider Active Team Status: Inactive Member Role Status Dates Dr. Shalini Ferrari , DO Primary Care Provider, Referr ing Provider Active Brody Morales TREASURY ANALYST, TREASURY ANALYST-C Attending Provider Active Team Status: Inactive Member Role Status Dates Dr. Shalini Ferrari , DO Primary Care Provider, Referr ing Provider Active Cj Alfonso TREASURY ANALYST, TREASURY ANALYST-C Attending Provider Active Team Status: Inactive Member Role Status Dates Dr. Shalini Ferrari , DO Primary Care Provider Active Dr. Tal Soto , DO Emergency Provider Active Team Status: Active Member Role Status Dates Dr. Shalini Ferrari , DO Primary Care Provider Active Dr. Joshua Orourke MD Emergency Provider Active Dr. Mariann Clancy MD Admit Provider, Other Provider Active Dr. Trent Martinez MD Attending Provider, Other Provider Active Team Status: Inactive Member Role Status Dates Dr. Shalini Ferrari , DO Primary Care Provider Active Dr. Joshua Orourke MD Emergency Provider Active Dr. Mariann Clancy MD Admit Provider, Other Provider Active Dr. Trent Martinez MD Attending Provider Active Team Status: Inactive Member Role Status Dates Dr. Shalini Ferrari , DO Primary Care Provider Active Dr. Tal Soto , DO Attending Provider, Domi mckeon Active Team Status: Inactive Member Role Status Dates Dr. Shalini Ferrari , DO Primary Care Provider, Referr ing Provider Active Dr. Sammy Ferrari , DO Attending Provider Active Team Status: Active Member Role Status Dates Dr. Shalini Ferrari , DO Primary Care Provider Active Dr. Sammy Ferrari , DO Attending Provider, Referring Provider, Other Provider Active Team Status: Inactive Member Role Status Dates Dr. Shalini Ferrari , DO Primary Care Provider Active Dr. Sammy Ferrari , DO Attending Provider, Referring Pro vider Active Team Status: Inactive Member Role Status Dates Dr. Shalini Ferrari , DO Primary Care Provider, Referr ing Provider Active Anoop Esparza PA, PA Attending Provider Active Team Status: Inactive Member Role Status Dates Dr. Shalini Ferrari , DO Primary Care Provider, Referr ing Provider Active Dr. Robson Moreira MD Attending Provider Active Team Status: Active Member Role Status Dates Dr. Shalini Ferrari , DO Primary Care Provider Active Dr. Robson Moreira MD Attending Pr ovider, Referring Provider, Other Provider Active Team Status: Inactive Member Role Status Dates Dr. Shalini Ferrari , DO Primary Care Provider Active Dr. Robson Moreira MD Attending Provider, Referr ing Provider Active Team Status: Active Member Role Status Dates Dr. Shalini Ferrari , DO Primary Care Provider Active Anoop MASTERS, PA Other Provider Active Dr. Thor Trejo MD Attending Provider Active Team Status: Active Member Role Status Dates Dr. Shalini Ferrari , DO Primary Care Provider Active Dr. Thor Trejo MD Attending Provider Active Team Status: Inactive Member Role Status Dates Dr. Shalini Ferrari , DO Primary Care Provider Active Anoop Esparza PA, PA Attending Provider Active Team Status: Inactive Member Role Status Dates Dr. Shalini Ferrari , DO Primary Care Provider, Referr ing Provider Active Dorie Jeter TREASURY ANALYST, TREASURY ANALYST-C Attending Provider Active Team Status: Inactive Member Role Status Dates Dr. Shlaini Ferrari , DO Primary Care Provider Active Dorie Jeter TREASURY ANALYST, TREASURY ANALYST-C Attending Provider, Referrin g Provider Active Team Status: Inactive Member Role Status Dates Dr. Shalini Ferrari , DO Primary Care Provider, Referr ing Provider Active Dr. Thor Trejo MD Attending Provider Active Team Status: Active Member Role Status Dates Dr. Shalini Ferrari , DO Primary Care Provider Active Dr. Hao Vega , DO Emergency Provider Active Dr. Mariann Clancy MD Admit Provider, Attending Prov ider Active Dr. Sammy Ferrari , DO Other Provider Active Team Status: Active Member Role Status Dates Dr. Shalini Ferrari , DO Primary Care Provider Active Dr. Hao Vega , DO Emergency Provider Active Dr. Mariann Clancy MD Admit Provider, Other Provider Active Dr. Sammy Ferrari , DO Attending Provider, Other Provide r Active Dr. Trinidad Alarcon MD Other Provider Active Dr. Suzanne Ferrer MD Other Provider Active Team Status: Active Member Role Status Dates Dr. Shalini Ferrari , DO Primary Care Provider Active Dr. Hao Vega , DO Emergency Provider Active Dr. Mariann Clancy MD Admit Provider, Other Provider Active Dr. Sammy Ferrari , DO Other Provider Active Dr. Trinidad Alarcon MD Attending Provider, Other Prov ider Active Dr. Suzanne Ferrer MD Other Provider Active Team Status: Active Member Role Status Dates Dr. Shalini Ferrari , DO Primary Care Provider Active Dr. Hao Vega , DO Emergency Provider Active Dr. Mariann Clancy MD Admit Provider, Other Provider Active Dr. Trinidad Alarcon MD Other Provider Active Dr. Suzanne Ferrer MD Other Provider Active Dr. Sammy Ferrari , DO Attending Provider Active Team Status: Active Member Role Status Dates Dr. Shalini Ferrari , DO Primary Care Provider Active Dr. Hao Vega , DO Emergency Provider Active Dr. Mariann Clancy MD Admit Provider, Other Provider Active Dr. Trinidad Alarcon MD Attending Provider, Other Prov ider Active Dr. Suzanne Ferrer MD Other Provider Active Team Status: Active Member Role Status Dates Dr. Shalini Ferrari , DO Primary Care Provider Active Dr. Hao Vega , DO Emergency Provider Active Dr. Mariann Clancy MD Admit Provider, Other Provider Active Dr. Trinidad Alarcon MD Other Provider Active Dr. Suzanne Ferrer MD Other Provider Active Dr. Perry Hays , DO Attending Provider Active Team Status: Active Member Role Status Dates Dr. Shalini Ferrari , DO Primary Care Provider Active Dr. Perry Hays , DO Attending Provider Active Team Status: Inactive Member Role Status Dates Dr. Shalini Ferrari , DO Primary Care Provider Active Dr. Hao Vega , DO Emergency Provider Active Dr. Mariann Clancy MD Admit Provider, Other Provider Active Dr. Trinidad Alarcon MD Attending Provider Active Dr. Suzanne Ferrer MD Other Provider Active Team Status: Active Member Role Status Dates Dr. Shalini Ferrari , DO Primary Care Provider Active Dr. Hao Vega , DO Emergency Provider Active Dr. Mariann Clancy MD Admit Provider, Other Provider Active Dr. Sammy Ferrari , DO Attending Provider, Other Provide r Active Dr. Trinidad Alarcon MD Referring Provider, Other Prov ider Active Dr. Suzanne Ferrer MD Other Provider Active Team Status: Active Member Role Status Dates Dr. Shalini Ferrari , DO Primary Care Provider Active Dr. Hao Vega , DO Emergency Provider Active Dr. Mariann Clancy MD Admit Provider, Other Provider Active Dr. Trinidad Alarcon MD Referring Provider, Other Prov ider Active Dr. Suzanne Ferrer MD Other Provider Active Dr. Sammy Ferrari , DO Attending Provider Active Team Status: Active Member Role Status Dates Dr. Shalini Ferrari , DO Primary Care Provider Active Dr. Hao Vega , DO Emergency Provider Active Dr. Mariann Clancy MD Admit Provider, Other Provider Active Dr. Trinidad Alarcon MD Referring Provider, Other Prov ider Active Dr. Suzanne Ferrer MD Other Provider Active Dr. Perry Hays , DO Attending Provider Active Team Status: Active Member Role Status Dates Dr. Shalini Ferrari , DO Primary Care Provider Active Dr. Perry Hays , DO Attending Provider Active Dr. Trinidad Alarcon MD Referring Provider Active Team Status: Inactive Member Role Status Dates Dr. Shalini Ferrari , DO Primary Care Provider, Other Provider Active Dr. Thor Trejo MD Attending Provider, Referring Pro vider Active Team Status: Inactive Member Role Status Dates Dr. Shalini Ferrari , DO Primary Care Provider Active Cassidy Yo TREASURY ANALYST, TREASURY ANALYST-C Attending Provider, Referring Pro vider Active Team Status: Active Member Role Status Dates Dr. Shalini Ferrari , DO Primary Care Provider Active Dr. Perry Hays , DO Attending Provid er, Referring Provider, Other Provider Active Team Status: Inactive Member Role Status Dates Dr. Shalini Ferrari DO Primary Care Provider Active Dr. Perry Hays , DO Attending Provider, Referring Provider Active Team Status: Inactive Member Role Status Dates Dr. Shalini Ferrari DO Primary Care Provider, Referr ing Provider Active Dr. Perry Hays , DO Attending Provider Active Set Up Mold Technician Relationship Specialty Start Date End Date Shalini Ferrari DO [address] [place], [place] [id number] PCP - General Family Medicine 06/03/24 Set Up Mold Technician Relationship Specialty Start Date End Date Shalini Ferrari DO [address] [place], [place] [id number] PCP - General Family Medicine 06/03/24 Team Status: Inactive Member Role Status Dates Dr. Shalini Ferrari DO Primary Care Provider Active Start: September 25, 2024 End: September 25, 2024 Dr. Shalini Ferrari DO Referring Provider Active Start: September 25, 2024 End: September 25, 2024 ROSE Harrison Attending Provider Active Start: September 25, 2024 End: September 25, 2024 Team Status: Inactive Member Role Status Dates Dr. Shalini Ferrari DO Primary Care Provider Active Start: October 20, 2024 End: October 20, 2024 Dr. Shalini Ferrari DO Attending Provider Active Start: October 20, 2024 End: October 20, 2024 Dr. Shalini Ferrari DO Referring Provider Active Start: October 20, 2024 End: October 20, 2024 Team Status: Inactive Member Role Status Dates Dr. Shalini Ferrari DO Primary Care Provider Active Start: October 30, 2024 End: October 30, 2024 Dr. Shalini Ferrari DO Referring Provider Active Start: October 30, 2024 End: October 30, 2024 ROSE Harrison Attending Provider Active Start: October 30, 2024 End: October 30, 2024 Team Status: Inactive Member Role Status Dates Dr. Shalini Ferrari DO Primary Care Provider Active Start: November 09, 2024 End: November 09, 2024 Dr. Shalini Ferrari DO Referring Provider Active Start: November 09, 2024 End: November 09, 2024 Fiona Chance TREASURY ANALYST-C Attending Provider Active Start: November 09, 2024 End: November 09, 2024 Team Status: Inactive Member Role Status Dates Dr. Shalini Ferrari DO Primary Care Provider Active Start: November 09, 2024 End: November 09, 2024 Fiona Chance TREASURY ANALYST-C Attending Provider Active Start: November 09, 2024 End: November 09, 2024 Fiona Chance TREASURY ANALYST-C Referring Provider Active Start: November 09, 2024 End: November 09, 2024 Team Status: Inactive Member Role Status Dates Dr. Shalini Ferrari DO Primary Care Provider Active Start: November 09, 2024 End: November 09, 2024 Daysi Rodarte TREASURY ANALYST-C Attending Provider Active Start: November 09, 2024 End: November 09, 2024 Daysi Rodarte TREASURY ANALYST-C Referring Provider Active Start: November 09, 2024 End: November 09, 2024 Team Status: Inactive Member Role Status Dates Dr. Shalini Ferrari DO Primary Care Provider Active Start: November 13, 2024 End: November 13, 2024 Fiona Chance TREASURY ANALYST-C Attending Provider Active Start: November 13, 2024 End: November 13, 2024 Fiona Chance TREASURY ANALYST-C Referring Provider Active Start: November 13, 2024 End: November 13, 2024 Team Status: Inactive Member Role Status Dates Dr. Shalini Ferrari DO Primary Care Provider Active Start: November 20, 2024 End: November 20, 2024 Daysi Rodarte TREASURY ANALYST-C Attending Provider Active Start: November 20, 2024 End: November 20, 2024 Daysi Rodarte TREASURY ANALYST-C Referring Provider Active Start: November 20, 2024 End: November 20, 2024 Team Status: Inactive Member Role Status Dates Dr. Shalini Ferrari DO Primary Care Provider Active Start: November 25, 2024 End: November 25, 2024 Daysi Rodarte TREASURY ANALYST-C Attending Provider Active Start: November 25, 2024 End: November 25, 2024 Daysi Rodarte TREASURY ANALYST-C Referring Provider Active Start: November 25, 2024 End: November 25, 2024 Team Status: Inactive Member Role Status Dates Dr. Shalini Ferrari DO Primary Care Provider Active Start: November 27, 2024 End: November 27, 2024 Fiona Chance TREASURY ANALYST-C Attending Provider Active Start: November 27, 2024 End: November 27, 2024 Fiona Chance TREASURY ANALYST-C Referring Provider Active Start: November 27, 2024 End: November 27, 2024 Team Status: Inactive Member Role Status Dates Dr. Shalini Ferrari DO Primary Care Provider Active Start: December 10, 2024 End: December 10, 2024 Dr. Shalini Ferrari DO Referring Provider Active Start: December 10, 2024 End: December 10, 2024 Cj Alfonso NP TREASURY ANALYST-C Attending Provider Active S tart: December 10, 2024 End: December 10, 2024 Team Status: Inactive Member Role Status Dates Dr. Shalini Ferrari DO Primary Care Provider Active Start: December 11, 2024 End: December 11, 2024 Dr. Shalini Ferrari DO Referring Provider Active Start: December 11, 2024 End: December 11, 2024 Daysi Rodarte NP-C Attending Provider Active Start: December 11, 2024 End: December 11, 2024 Team Status: Inactive Member Role Status Dates Dr. Shalini Ferrari DO Primary Care Provider Active Start: December 22, 2024 End: December 22, 2024 Daysi Rodarte TREASURY ANALYST-C Attending Provider Active Start: December 22, 2024 End: December 22, 2024 Team Status: Active Member Role Status Dates Dr. Shalini Ferrari DO Primary Care Provider Active Start: December 25, 2024 Fiona Chance TREASURY ANALYST-C Attending Provider Active Start: December 25, 2024 Fiona Chance TREASURY ANALYST-C Referring Provider Active Start: December 25, 2024 Team Status: Inactive Member Role Status Dates Dr. Shalini Ferrari DO Primary Care Provider Active Start: December 30, 2024 End: December 30, 2024 Dr. Shalini Ferrari DO Attending Provider Active Start: December 30, 2024 End: December 30, 2024 Dr. Shalini Ferrari DO Referring Provider Active Start: December 30, 2024 End: December 30, 2024 Team Status: Inactive Member Role Status Dates Dr. Shalini Ferrari DO Primary Care Provider Active Start: December 25, 2024 End: December 25, 2024 ROSE Cornell Attending Provider Active Start: December 25, 2024 End: December 25, 2024 ROSE Cornell Referring Provider Active Start: December 25, 2024 End: December 25, 2024 Team Status: Active Member Role Status Dates Dr. Shalini Ferrari DO Primary Care Provider Active Start: January 01, 2025 ROSE Harrison Attending Provider Active Start: January 01, 2025 ROSE Harrison Referring Provider Active Start: January 01, 2025 Team Status: Inactive Member Role Status Dates Dr. Shalini Ferrari DO Primary Care Provider Active Start: January 04, 2025 End: January 04, 2025 Dr. Shalini Ferrari DO Referring Provider Active Start: January 04, 2025 End: January 04, 2025 Dr. Perry Hays DO Attending Provider Active Start: January 04, 2025 End: January 04, 2025 Team Status: Active Member Role Status Dates Dr. Shalini Ferrari DO Primary Care Provider Active Start: January 04, 2025 Dr. Shalini Ferrari DO Referring Provider Active Start: January 04, 2025 Dr. Perry Hays DO Attending Provider Active Start: January 04, 2025 Dr. Perry Hays DO Other Provider Active St art: January 04, 2025 Team Status: Inactive Member Role Status Dates Dr. Shalini Ferrari DO Primary Care Provider Active Start: January 01, 2025 End: January 01, 2025 ROSE Harrison Attending Provider Active Start: January 01, 2025 End: January 01, 2025 ROSE Harrison Referring Provider Active Start: January 01, 2025 End: January 01, 2025 Team Status: Inactive Member Role Status Dates Dr. Shalini Ferrari DO Primary Care Provider Active Start: January 06, 2025 End: January 06, 2025 Dr. Shalini Ferrari DO Attending Provider Active Start: January 06, 2025 End: January 06, 2025 Dr. Shalini Ferrari DO Referring Provider Active Start: January 06, 2025 End: January 06, 2025 Team Status: Active Member Role Status Dates Dr. Shalini Ferrari DO Primary Care Provider Active Start: January 07, 2025 Daysi Rodarte NP-C Attending Provider Active Start: January 07, 2025 Daysi Rodarte NP-C Referring Provider Active Start: January 07, 2025 Team Status: Active Member Role Status Dates Dr. Shalini Ferrari DO Primary Care Provider Active Start: January 04, 2025 Dr. Uziel Chang MD Attending Provider Active Start: January 04, 2025 Dr. Uziel Chang MD Referring Provider Active Start: January 04, 2025 Team Status: Inactive Member Role Status Dates Dr. Shalini Ferrari DO Primary Care Provider Active Start: January 07, 2025 End: January 07, 2025 Daysi Rodarte NP-C Attending Provider Active Start: January 07, 2025 End: January 07, 2025 Daysi Rodarte NP-C Referring Provider Active Start: January 07, 2025 End: January 07, 2025 Team Status: Inactive Member Role Status Dates Dr. Shalini Ferrari DO Primary Care Provider Active Start: January 26, 2025 End: January 26, 2025 Dr. Shalini Ferrari DO Referring Provider Active Start: January 26, 2025 End: January 26, 2025 Fiona Chance NP-C Attending Provider Active Start: January 26, 2025 End: January 26, 2025 Team Status: Inactive Member Role Status Dates Dr. Shalini Ferrari DO Primary Care Provider Active Start: January 26, 2025 End: January 26, 2025 Fiona Chance NP-C Attending Provider Active Start: January 26, 2025 End: January 26, 2025 Fiona Chance NP-C Referring Provider Active Start: January 26, 2025 End: January 26, 2025 Team Status: Inactive Member Role Status Dates Dr. Shalini Ferrari DO Primary Care Provider Active Start: February 17, 2025 End: February 17, 2025 MIKALA PENA Attending Provider Active Start: 2024 End: February 17, 2025 Team Status: Active Member Role Status Dates Dr. Shalini Ferrari DO Primary Care Provider Active Start: February 22, 2025 Daysi Rodarte NP-C Attending Provider Active Start: February 22, 2025 Daysi Rodarte NP-C Referring Provider Active Start: February 22, 2025 Team Status: Inactive Member Role Status Dates Dr. Shalini Ferrari , Primary Care Provider Active Start: February 24, 2025 End: February 24, 2025 Dr. Shalini Ferrari DO Attending Provider Active Start: February 24, 2025 End: February 24, 2025 Dr. Shalini Ferrari DO Referring Provider Active Start: February 24, 2025 End: February 24, 2025 Team Status: Inactive Member Role Status Dates Dr. Shalini Ferrari DO Primary Care Provider Active Start: February 22, 2025 End: February 22, 2025 Daysi Rodarte NP-C Attending Provider Active Start: February 22, 2025 End: February 22, 2025 Daysi Rodarte NP-C Referring Provider Active Start: February 22, 2025 End: February 22, 2025 Team Status: Inactive Member Role Status Dates Dr. Shalini Ferrari DO Primary Care Provider Active Start: February 26, 2025 End: February 26, 2025 Dr. Shalini Ferrari DO Referring Provider Active Start: February 26, 2025 End: February 26, 2025 Daysi Rodarte NP-C Attending Provider Active Start: February 26, 2025 End: February 26, 2025 Team Status: Inactive Member Role Status Dates Dr. Shalini Ferrari DO Primary Care Provider Active Start: March 10, 2025 End: March 10, 2025 Dr. Shalini Ferrari DO Attending Provider Active Start: March 10, 2025 End: March 10, 2025 Dr. Shalini Ferrari DO Referring Provider Active Start: March 10, 2025 End: March 10, 2025 Team Status: Inactive Member Role Status Dates Dr. Shalini Ferrari DO Primary Care Provider Active Start: March 12, 2025 End: March 12, 2025 ROSE Cornell Attending Provider Active Start: March 12, 2025 End: March 12, 2025 Fiona Robson , TREASURY ANALYST-C Referring Provider Active Start: March 12, 2025 End: March 12, 2025 Team Status: Inactive Member Role Status Dates Dr. Shalini Ferrari DO Primary Care Provider Active Start: March 16, 2025 End: March 16, 2025 Daysi Rodarte NP-C Attending Provider Active Start: March 16, 2025 End: March 16, 2025 Daysi Rodarte TREASURY ANALYST-C Referring Provider Active Start: March 16, 2025 End: March 16, 2025 Fiona Chance NP-C Other Provider Active St art: March 16, 2025 End: March 16, 2025 Team Status: Active Member Role Status Dates Dr. Shalini Ferrari DO Primary Care Provider Active Start: March 16, 2025 Dr. Guanakito Godinez MD Attending Provider Active Start: March 16, 2025 Team Status: Inactive Member Role Status Dates Dr. Shalini Ferrari DO Primary Care Provider Active Start: March 26, 2025 End: March 26, 2025 Dr. Shalini Ferrari DO Referring Provider Active Start: March 26, 2025 End: March 26, 2025 Daysi Rodarte TREASURY ANALYST-C Attending Provider Active Start: March 26, 2025 End: March 26, 2025 Team Status: Active Member Role Status Dates Dr. Shalini Ferrari DO Primary Care Provider Active Start: March 16, 2025 Daysi Rodarte TREASURY ANALYST-C Attending Provider Active Start: March 16, 2025 Daysi Rodarte TREASURY ANALYST-C Referring Provider Active Start: March 16, 2025 Fiona Chance NP-C Other Provider Active St art: March 16, 2025 Team Status: Inactive Member Role Status Dates Dr. Shalini Ferrari DO Primary Care Provider Active Start: March 26, 2025 End: March 26, 2025 Daysi Rodarte TREASURY ANALYST-C Attending Provider Active Start: March 26, 2025 End: March 26, 2025 Team Status: Inactive Member Role Status Dates Dr. Shalini Ferrari DO Primary Care Provider Active Start: March 31, 2025 End: March 31, 2025 Daysi Rodarte TREASURY ANALYST-C Attending Provider Active Start: March 31, 2025 End: March 31, 2025 Daysi Rodarte TREASURY ANALYST-C Referring Provider Active Start: March 31, 2025 End: March 31, 2025 Team Status: Active Member Role/Relationship Status Dates Dr. Shalini Ferrari DO Primary Care Provider Active Team Status: Inactive Member Role/Relationship Status Dates Dr. Shalini Ferrari DO Primary Care Provider Active Start: December 22, 2024 End: December 22, 2024 Daysi Rodatre NP-C Attending Provider Active Start: December 22, 2024 End: December 22, 2024 Team Status: Inactive Member Role/Relationship Status Dates Dr. Shalini Ferrari DO Primary Care Provider Active Start: December 25, 2024 End: December 25, 2024 Fiona Chance NP-C Attending Provider Active Start: December 25, 2024 End: December 25, 2024 Fiona Chance NP-C Referring Provider Active Start: December 25, 2024 End: December 25, 2024 Team Status: Inactive Member Role/Relationship Status Dates Dr. Shalini Ferrari DO Primary Care Provider Active Start: December 30, 2024 End: December 30, 2024 Dr. Shalini Ferrari DO Attending Provider Active Start: December 30, 2024 End: December 30, 2024 Dr. Shalini Ferrari DO Referring Provider Active Start: December 30, 2024 End: December 30, 2024 Team Status: Inactive Member Role/Relationship Status Dates Dr. Shalini Ferrari DO Primary Care Provider Active Start: January 01, 2025 End: January 01, 2025 Daysi Rodarte NP-C Attending Provider Active Start: January 01, 2025 End: January 01, 2025 Daysi Rodarte NP-C Referring Provider Active Start: January 01, 2025 End: January 01, 2025 Team Status: Inactive Member Role/Relationship Status Dates Dr. Shalini Ferrari DO Primary Care Provider Active Start: January 04, 2025 End: January 04, 2025 Dr. Shalini Ferrari DO Referring Provider Active Start: January 04, 2025 End: January 04, 2025 Dr. Perry Hays DO Attending Provider Active Start: January 04, 2025 End: January 04, 2025 Team Status: Active Member Role/Relationship Status Dates Dr. Shalini Ferrari DO Primary Care Provider Active Start: January 04, 2025 Dr. Shalini Ferrari DO Referring Provider Active Start: January 04, 2025 Dr. Perry Hays DO Attending Provider Active Start: January 04, 2025 Dr. Perry Hays DO Other Provider Active St art: January 04, 2025 Team Status: Active Member Role/Relationship Status Dates Dr. Shalini Ferrari DO Primary Care Provider Active Start: January 04, 2025 Dr. Uziel Chang MD Attending Provider Active Start: January 04, 2025 Dr. Uziel Chang MD Referring Provider Active Start: January 04, 2025 Team Status: Inactive Member Role/Relationship Status Dates Dr. Shalini Ferrari DO Primary Care Provider Active Start: January 06, 2025 End: January 06, 2025 Dr. Shalini Ferrari DO Attending Provider Active Start: January 06, 2025 End: January 06, 2025 Dr. Shalini Ferrari DO Referring Provider Active Start: January 06, 2025 End: January 06, 2025 Team Status: Inactive Member Role/Relationship Status Dates Dr. Shalini Ferrari DO Primary Care Provider Active Start: January 07, 2025 End: January 07, 2025 YULI HarrisonC Attending Provider Active Start: January 07, 2025 End: January 07, 2025 ROSE Harrison Referring Provider Active Start: January 07, 2025 End: January 07, 2025 Team Status: Inactive Member Role/Relationship Status Dates Dr. Shalini Ferrari DO Primary Care Provider Active Start: January 26, 2025 End: January 26, 2025 Dr. Shalini Ferrari DO Referring Provider Active Start: January 26, 2025 End: January 26, 2025 ROSE Cornell Attending Provider Active Start: January 26, 2025 End: January 26, 2025 Team Status: Inactive Member Role/Relationship Status Dates Dr. Shalini Ferrari DO Primary Care Provider Active Start: January 26, 2025 End: January 26, 2025 ROSE Cornell Attending Provider Active Start: January 26, 2025 End: January 26, 2025 ROSE Cornell Referring Provider Active Start: January 26, 2025 End: January 26, 2025 Team Status: Inactive Member Role/Relationship Status Dates Dr. Shalini Ferrari DO Primary Care Provider Active Start: February 17, 2025 End: February 17, 2025 MIKALA PENA Attending Provider Active Start: Getachew martines 2024 End: February 17, 2025 Team Status: Inactive Member Role/Relationship Status Dates Dr. Shalini Ferrari DO Primary Care Provider Active Start: February 22, 2025 End: February 22, 2025 ROSE Harrison Attending Provider Active Start: February 22, 2025 End: February 22, 2025 ROSE Harrison Referring Provider Active Start: February 22, 2025 End: February 22, 2025 Team Status: Inactive Member Role/Relationship Status Dates Dr. Shalini Ferrari DO Primary Care Provider Active Start: February 24, 2025 End: February 24, 2025 Dr. Shalini Ferrari DO Attending Provider Active Start: February 24, 2025 End: February 24, 2025 Dr. Shalini Ferrari DO Referring Provider Active Start: February 24, 2025 End: February 24, 2025 Team Status: Inactive Member Role/Relationship Status Dates Dr. Shalini Ferrari DO Primary Care Provider Active Start: February 26, 2025 End: February 26, 2025 Dr. Shalini Ferrari DO Referring Provider Active Start: February 26, 2025 End: February 26, 2025 ROSE Harrison Attending Provider Active Start: February 26, 2025 End: February 26, 2025 Team Status: Inactive Member Role/Relationship Status Dates Dr. Shalini Ferrari DO Primary Care Provider Active Start: March 10, 2025 End: March 10, 2025 Dr. Shalini Ferrari DO Attending Provider Active Start: March 10, 2025 End: March 10, 2025 Dr. Shalini Ferrari DO Referring Provider Active Start: March 10, 2025 End: March 10, 2025 Team Status: Inactive Member Role/Relationship Status Dates Dr. Shalini Ferrari DO Primary Care Provider Active Start: March 12, 2025 End: March 12, 2025 ROSE [facility] Attending Provider Active Start: March 12, 2025 End: March 12, 2025 YULI CornellC Referring Provider Active Start: March 12, 2025 End: March 12, 2025 Team Status: Inactive Member Role/Relationship Status Dates Dr. Shalini Ferrari DO Primary Care Provider Active Start: March 16, 2025 End: March 16, 2025 Daysi Rodarte NP-C Attending Provider Active Start: March 16, 2025 End: March 16, 2025 Daysi Rodarte NP-C Referring Provider Active Start: March 16, 2025 End: March 16, 2025 YULI CornellC Other Provider Active St art: March 16, 2025 End: March 16, 2025 Team Status: Active Member Role/Relationship Status Dates Dr. Shalini Ferrari DO Primary Care Provider Active Start: March 16, 2025 Dr. Guanakito Godinez MD Attending Provider Active Start: March 16, 2025 Team Status: Inactive Member Role/Relationship Status Dates Dr. Shalini Ferrari DO Primary Care Provider Active Start: March 26, 2025 End: March 26, 2025 Dr. Shalini Ferrari DO Referring Provider Active Start: March 26, 2025 End: March 26, 2025 Daysi Rodarte NP-C Attending Provider Active Start: March 26, 2025 End: March 26, 2025 Team Status: Inactive Member Role/Relationship Status Dates Dr. Shailni Ferrari DO Primary Care Provider Active Start: March 26, 2025 End: March 26, 2025 Daysi Rodarte NP-C Attending Provider Active Start: March 26, 2025 End: March 26, 2025 Team Status: Inactive Member Role/Relationship Status Dates Dr. Shalini Ferrari DO Primary Care Provider Active Start: March 31, 2025 End: March 31, 2025 Daysi Rodarte NP-C Attending Provider Active Start: March 31, 2025 End: March 31, 2025 Daysi Rodarte NP-C Referring Provider Active Start: March 31, 2025 End: March 31, 2025 Team Status: Inactive Member Role/Relationship Status Dates Dr. Shalini Ferrari DO Primary Care Provider Active Start: April 20, 2025 End: April 20, 2025 Dr. Shalini Ferrari DO Referring Provider Active Start: April 20, 2025 End: April 20, 2025 ROSE Harrison Attending Provider Active Start: April 20, 2025 End: April 20, 2025 Team Status: Inactive Member Role/Relationship Status Dates Dr. Shalini Ferrari DO Primary Care Provider Active Start: December 30, 2024 End: December 30, 2024 Dr. Shalini Ferrari DO Attending Provider Active Start: December 30, 2024 End: December 30, 2024 Dr. Shalini Ferrari DO Referring Provider Active Start: December 30, 2024 End: December 30, 2024 Team Status: Inactive Member Role/Relationship Status Dates Dr. Shalini Ferrari DO Primary Care Provider Active Start: January 01, 2025 End: January 01, 2025 ROSE Harrison Attending Provider Active Start: January 01, 2025 End: January 01, 2025 ROSE Harrison Referring Provider Active Start: January 01, 2025 End: January 01, 2025 Team Status: Inactive Member Role/Relationship Status Dates Dr. Shalini Ferrari DO Primary Care Provider Active Start: January 04, 2025 End: January 04, 2025 Dr. Shalini Ferrari DO Referring Provider Active Start: January 04, 2025 End: January 04, 2025 Dr. Perry Hays DO Attending Provider Active Start: January 04, 2025 End: January 04, 2025 Team Status: Active Member Role/Relationship Status Dates Dr. Shalini Ferrari DO Primary Care Provider Active Start: January 04, 2025 Dr. Shalini Ferrari DO Referring Provider Active Start: January 04, 2025 Dr. Perry Hays DO Attending Provider Active Start: January 04, 2025 Dr. Perry Hays DO Other Provider Active St art: January 04, 2025 Team Status: Active Member Role/Relationship Status Dates Dr. Shalini Ferrari DO Primary Care Provider Active Start: January 04, 2025 Dr. Uziel Chang MD Attending Provider Active Start: January 04, 2025 Dr. Uzile Chang MD Referring Provider Active Start: January 04, 2025 Team Status: Inactive Member Role/Relationship Status Dates Dr. Shalini Ferrari DO Primary Care Provider Active Start: January 06, 2025 End: January 06, 2025 Dr. Shalini Ferrari DO Attending Provider Active Start: January 06, 2025 End: January 06, 2025 Dr. Shalini Ferrari DO Referring Provider Active Start: January 06, 2025 End: January 06, 2025 Team Status: Inactive Member Role/Relationship Status Dates Dr. Shalini Ferrari DO Primary Care Provider Active Start: January 07, 2025 End: January 07, 2025 Daysi Rodarte NP-C Attending Provider Active Start: January 07, 2025 End: January 07, 2025 Daysi Rodarte NP-C Referring Provider Active Start: January 07, 2025 End: January 07, 2025 Team Status: Inactive Member Role/Relationship Status Dates Dr. Shalini Ferrari DO Primary Care Provider Active Start: January 26, 2025 End: January 26, 2025 Dr. Shalini Ferrari DO Referring Provider Active Start: January 26, 2025 End: January 26, 2025 ROSE [facility] Attending Provider Active Start: January 26, 2025 End: January 26, 2025 Team Status: Inactive Member Role/Relationship Status Dates Dr. Shalini Ferrari DO Primary Care Provider Active Start: January 26, 2025 End: January 26, 2025 ROSE [facility] Attending Provider Active Start: January 26, 2025 End: January 26, 2025 Fiona Chance NP-C Referring Provider Active Start: January 26, 2025 End: January 26, 2025 Team Status: Inactive Member Role/Relationship Status Dates Dr. Shalini Ferrari DO Primary Care Provider Active Start: February 17, 2025 End: February 17, 2025 MIKALA PENA Attending Provider Active Start: 2024 End: February 17, 2025 Team Status: Inactive Member Role/Relationship Status Dates Dr. Shalini Ferrari DO Primary Care Provider Active Start: February 22, 2025 End: February 22, 2025 Daysi Rodarte NP-C Attending Provider Active Start: February 22, 2025 End: February 22, 2025 Daysi Rodarte NP-C Referring Provider Active Start: February 22, 2025 End: February 22, 2025 Team Status: Inactive Member Role/Relationship Status Dates Dr. Shalini Ferrari DO Primary Care Provider Active Start: February 24, 2025 End: February 24, 2025 Dr. Shalini Ferrari DO Attending Provider Active Start: February 24, 2025 End: February 24, 2025 Dr. Shalini Ferrari DO Referring Provider Active Start: February 24, 2025 End: February 24, 2025 Team Status: Inactive Member Role/Relationship Status Dates Dr. Shalini Ferrari DO Primary Care Provider Active Start: February 26, 2025 End: February 26, 2025 Dr. Shalini Ferrari DO Referring Provider Active Start: February 26, 2025 End: February 26, 2025 YULI HarrisonC Attending Provider Active Start: February 26, 2025 End: February 26, 2025 Team Status: Inactive Member Role/Relationship Status Dates Dr. Shalini Ferrari DO Primary Care Provider Active Start: March 10, 2025 End: March 10, 2025 Dr. Shalini Ferrari DO Attending Provider Active Start: March 10, 2025 End: March 10, 2025 Dr. Shalini Ferrari DO Referring Provider Active Start: March 10, 2025 End: March 10, 2025 Team Status: Inactive Member Role/Relationship Status Dates Dr. Shalini Ferrari DO Primary Care Provider Active Start: March 12, 2025 End: March 12, 2025 ROSE [facility] Attending Provider Active Start: March 12, 2025 End: March 12, 2025 ROSE [facility] Referring Provider Active Start: March 12, 2025 End: March 12, 2025 Team Status: Inactive Member Role/Relationship Status Dates Dr. Shalini Ferrari DO Primary Care Provider Active Start: March 16, 2025 End: March 16, 2025 ROSE Harrison Attending Provider Active Start: March 16, 2025 End: March 16, 2025 ROSE Harrison Referring Provider Active Start: March 16, 2025 End: March 16, 2025 ROSE [facility] Other Provider Active St art: March 16, 2025 End: March 16, 2025 Team Status: Active Member Role/Relationship Status Dates Dr. Shalini Ferrari DO Primary Care Provider Active Start: March 16, 2025 Dr. Guanakito Godinez MD Attending Provider Active Start: March 16, 2025 Team Status: Inactive Member Role/Relationship Status Dates Dr. Shalini Ferrari DO Primary Care Provider Active Start: March 26, 2025 End: March 26, 2025 Dr. Shalini Ferrari DO Referring Provider Active Start: March 26, 2025 End: March 26, 2025 Daysi Rodarte TREASURY ANALYST-C Attending Provider Active Start: March 26, 2025 End: March 26, 2025 Team Status: Inactive Member Role/Relationship Status Dates Dr. Shalini Ferrari DO Primary Care Provider Active Start: March 26, 2025 End: March 26, 2025 Daysi Rodarte NP-C Attending Provider Active Start: March 26, 2025 End: March 26, 2025 Team Status: Inactive Member Role/Relationship Status Dates Dr. Shalini Ferrari DO Primary Care Provider Active Start: March 31, 2025 End: March 31, 2025 Daysi Rodarte NP-C Attending Provider Active Start: March 31, 2025 End: March 31, 2025 Daysi Rodarte NP-C Referring Provider Active Start: March 31, 2025 End: March 31, 2025 Team Status: Inactive Member Role/Relationship Status Dates Dr. Shalini Ferrari DO Primary Care Provider Active Start: April 20, 2025 End: April 20, 2025 Dr. Shalini Ferrari DO Referring Provider Active Start: April 20, 2025 End: April 20, 2025 Daysi Rodatre NP-C Attending Provider Active Start: April 20, 2025 End: April 20, 2025 Team Status: Inactive Member Role/Relationship Status Dates Dr. Shalini Ferrari DO Primary Care Provider Active Start: April 20, 2025 End: April 20, 2025 Daysi Rodarte NP-C Attending Provider Active Start: April 20, 2025 End: April 20, 2025 Daysi Rodarte NP-C Referring Provider Active Start: April 20, 2025 End: April 20, 2025 Team Status: Inactive Member Role/Relationship Status Dates Dr. Shalini Ferrari DO Primary Care Provider Active Start: January 04, 2025 End: January 04, 2025 Dr. Shalini Ferrari DO Referring Provider Active Start: January 04, 2025 End: January 04, 2025 Dr. Perry Hays DO Attending Provider Active Start: January 04, 2025 End: January 04, 2025 Team Status: Active Member Role/Relationship Status Dates Dr. Shalini Ferrari DO Primary Care Provider Active Start: January 04, 2025 Dr. Shalini Ferrari DO Referring Provider Active Start: January 04, 2025 Dr. Perry Hays DO Attending Provider Active Start: January 04, 2025 Dr. Perry Hays DO Other Provider Active St art: January 04, 2025 Team Status: Active Member Role/Relationship Status Dates Dr. Shalini Ferrari DO Primary Care Provider Active Start: January 04, 2025 Dr. Uziel Chang MD Attending Provider Active Start: January 04, 2025 Dr. Uziel Chang MD Referring Provider Active Start: January 04, 2025 Team Status: Inactive Member Role/Relationship Status Dates Dr. Shalini Ferrari DO Primary Care Provider Active Start: January 06, 2025 End: January 06, 2025 Dr. Shalini Ferrari DO Attending Provider Active Start: January 06, 2025 End: January 06, 2025 Dr. Shalini Ferrari DO Referring Provider Active Start: January 06, 2025 End: January 06, 2025 Team Status: Inactive Member Role/Relationship Status Dates Dr. Shalini Ferrari DO Primary Care Provider Active Start: January 07, 2025 End: January 07, 2025 ROSE Harrison Attending Provider Active Start: January 07, 2025 End: January 07, 2025 ROSE Harrison Referring Provider Active Start: January 07, 2025 End: January 07, 2025 Team Status: Inactive Member Role/Relationship Status Dates Dr. Shalini Ferrari DO Primary Care Provider Active Start: January 26, 2025 End: January 26, 2025 Dr. Shalini Ferrari DO Referring Provider Active Start: January 26, 2025 End: January 26, 2025 ROSE Cornell Attending Provider Active Start: January 26, 2025 End: January 26, 2025 Team Status: Inactive Member Role/Relationship Status Dates Dr. Shalini Ferrari DO Primary Care Provider Active Start: January 26, 2025 End: January 26, 2025 YULI CornellC Attending Provider Active Start: January 26, 2025 End: January 26, 2025 YULI CornellC Referring Provider Active Start: January 26, 2025 End: January 26, 2025 Team Status: Inactive Member Role/Relationship Status Dates Dr. Shalini Ferrari DO Primary Care Provider Active Start: February 17, 2025 End: February 17, 2025 MIKALA PENA Attending Provider Active Start: 2024 End: February 17, 2025 Team Status: Inactive Member Role/Relationship Status Dates Dr. Shalini Ferrari DO Primary Care Provider Active Start: February 22, 2025 End: February 22, 2025 Daysi Rodarte NP-C Attending Provider Active Start: February 22, 2025 End: February 22, 2025 Daysi Rodarte NP-C Referring Provider Active Start: February 22, 2025 End: February 22, 2025 Team Status: Inactive Member Role/Relationship Status Dates Dr. Shalini Ferrari DO Primary Care Provider Active Start: February 24, 2025 End: February 24, 2025 Dr. Shalini Ferrari DO Attending Provider Active Start: February 24, 2025 End: February 24, 2025 Dr. Shalini Ferrari DO Referring Provider Active Start: February 24, 2025 End: February 24, 2025 Team Status: Inactive Member Role/Relationship Status Dates Dr. Shalini Ferrari DO Primary Care Provider Active Start: February 26, 2025 End: February 26, 2025 Dr. Shalini Ferrari DO Referring Provider Active Start: February 26, 2025 End: February 26, 2025 Daysi Rodarte NP-C Attending Provider Active Start: February 26, 2025 End: February 26, 2025 Team Status: Inactive Member Role/Relationship Status Dates Dr. Shalini Ferrari DO Primary Care Provider Active Start: March 10, 2025 End: March 10, 2025 Dr. Shalini Ferrari DO Attending Provider Active Start: March 10, 2025 End: March 10, 2025 Dr. Shalini Ferrari DO Referring Provider Active Start: March 10, 2025 End: March 10, 2025 Team Status: Inactive Member Role/Relationship Status Dates Dr. Shalini Ferrari DO Primary Care Provider Active Start: March 12, 2025 End: March 12, 2025 ROSE Cornell Attending Provider Active Start: March 12, 2025 End: March 12, 2025 ROSE Cornell Referring Provider Active Start: March 12, 2025 End: March 12, 2025 Team Status: Inactive Member Role/Relationship Status Dates Dr. Shalini Ferrari DO Primary Care Provider Active Start: March 16, 2025 End: March 16, 2025 ROSE Harrison Attending Provider Active Start: March 16, 2025 End: March 16, 2025 ROSE Harrison Referring Provider Active Start: March 16, 2025 End: March 16, 2025 ROSE Cornell Other Provider Active St art: March 16, 2025 End: March 16, 2025 Team Status: Active Member Role/Relationship Status Dates Dr. Shalini Ferrari DO Primary Care Provider Active Start: March 16, 2025 Dr. Guanakito Godinez MD Attending Provider Active Start: March 16, 2025 Team Status: Inactive Member Role/Relationship Status Dates Dr. Shalini Ferrari DO Primary Care Provider Active Start: March 26, 2025 End: March 26, 2025 Dr. Shalini Ferrari DO Referring Provider Active Start: March 26, 2025 End: March 26, 2025 ROSE Harrison Attending Provider Active Start: March 26, 2025 End: March 26, 2025 Team Status: Inactive Member Role/Relationship Status Dates Dr. Shalini Ferrari DO Primary Care Provider Active Start: March 26, 2025 End: March 26, 2025 ROSE Harrison Attending Provider Active Start: March 26, 2025 End: March 26, 2025 Team Status: Inactive Member Role/Relationship Status Dates Dr. Shalini Ferrari DO Primary Care Provider Active Start: March 31, 2025 End: March 31, 2025 ROSE Harrison Attending Provider Active Start: March 31, 2025 End: March 31, 2025 Daysi Rodarte NP-C Referring Provider Active Start: March 31, 2025 End: March 31, 2025 Team Status: Inactive Member Role/Relationship Status Dates Dr. Shalini Ferrari , Primary Care Provider Active Start: April 20, 2025 End: April 20, 2025 Dr. Shalini Ferrari DO Referring Provider Active Start: April 20, 2025 End: April 20, 2025 Daysi Rodarte TREASURY ANALYST-C Attending Provider Active Start: April 20, 2025 End: April 20, 2025 Team Status: Inactive Member Role/Relationship Status Dates Dr. Shalini Ferrari DO Primary Care Provider Active Start: April 20, 2025 End: April 20, 2025 Daysi Rodarte NP-C Attending Provider Active Start: April 20, 2025 End: April 20, 2025 Daysi Rodarte TREASURY ANALYST-C Referring Provider Active Start: April 20, 2025 End: April 20, 2025 Team Status: Inactive Member Role/Relationship Status Dates Dr. Shalini Ferrari DO Primary Care Provider Active Start: April 27, 2025 End: April 27, 2025 Daysi Rodarte TREASURY ANALYST-C Attending Provider Active Start: April 27, 2025 End: April 27, 2025 Daysi Rodarte TREASURY ANALYST-C Referring Provider Active Start: April 27, 2025 End: April 27, 2025 Source Comments (unrecognize d section and content) In the event this informatio n is protected by the Federal Confidentiality of Alcohol and Drug Abuse Patient Records regulations: The Federal rules restrict any use of the information to criminally investigate or prosecute any alcohol or drug abuse patient.[facility] the event this information is protected by the Federal Confidentiality of Alcohol and Drug Abuse Patient Records regulations: The Federal rules restrict any use of the information to criminally investigate or prosecute any alcohol or drug abuse patient.[facility] Center[facility] the event this information is protected by the Federal Confidentiality of Alcohol and Drug Abuse Patient Records regulations: The Federal rules restrict any use of the information to criminally investigate or prosecute any alcohol or drug abuse patient.[facility] the event this information is protected by the Federal Confidentiality of Alcohol and Drug Abuse Patient Records regulations: The Federal rules restrict any use of the information to criminally investigate or prosecute any alcohol or drug abuse patient.[facility] the event this information is protected by the Federal Confidentiality of Alcohol and Drug Abuse Patient Records regulations: The Federal rules restrict any use of the information to criminally investigate or prosecute any alcohol or drug abuse patient.[facility] the event this information is protected by the Federal Confidentiality of Alcohol and Drug Abuse Patient Records regulations: The Federal rules restrict any use of the information to criminally investigate or prosecute any alcohol or drug abuse patient.[facility] Center[facility] the event this information is protected by the Federal Confidentiality of Alcohol and Drug Abuse Patient Records regulations: The Federal rules restrict any use of the information to criminally investigate or prosecute any alcohol or drug abuse patient.[facility] Center[facility] the event this information is protected by the Federal Confidentiality of Alcohol and Drug Abuse Patient Records regulations: The Federal rules restrict any use of the information to criminally investigate or prosecute any alcohol or drug abuse patient.[facility] Center[facility] the event this information is protected by the Federal Confidentiality of Alcohol and Drug Abuse Patient Records regulations: The Federal rules restrict any use of the information to criminally investigate or prosecute any alcohol or drug abuse patient.[facility] Center[facility] the event this information is protected by the Federal Confidentiality of Alcohol and Drug Abuse Patient Records regulations: The Federal rules restrict any use of the information to criminally investigate or prosecute any alcohol or drug abuse patient.[facility] Center[facility] the event this information is protected by the Federal Confidentiality of Alcohol and Drug Abuse Patient Records regulations: The Federal rules restrict any use of the information to criminally investigate or prosecute any alcohol or drug abuse patient.[facility] CenterIn the event this information is protected by the Federal Confidentiality of Alcohol and Drug Abuse Patient Records regulations: The Federal rules restrict any use of the information to criminally investigate or prosecute any alcohol or drug abuse patient.[facility] CenterIn the event this information is protected by the Federal Confidentiality of Alcohol and Drug Abuse Patient Records regulations: The Federal rules restrict any use of the information to criminally investigate or prosecute any alcohol or drug abuse patient.[facility] CenterIn the event this information is protected by the Federal Confidentiality of Alcohol and Drug Abuse Patient Records regulations: The Federal rules restrict any use of the information to criminally investigate or prosecute any alcohol or drug abuse patient.[facility] CenterIn the event this information is protected by the Federal Confidentiality of Alcohol and Drug Abuse Patient Records regulations: The Federal rules restrict any use of the information to criminally investigate or prosecute any alcohol or drug abuse patient.[facility] CenterIn the event this information is protected by the Federal Confidentiality of Alcohol and Drug Abuse Patient Records regulations: The Federal rules restrict any use of the information to criminally investigate or prosecute any alcohol or drug abuse patient.[facility] CenterIn the event this information is protected by the Federal Confidentiality of Alcohol and Drug Abuse Patient Records regulations: The Federal rules restrict any use of the information to criminally investigate or prosecute any alcohol or drug abuse patient.[facility] Reason for Visit (unrecogniz ed section and content) Reason Comments Appointment Request Outside Medical Records Received Outside Medical Records Reason Comments Abstract Reason Comments enlarged prostate New Patient Urinary Retention 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 Comments Voiding Trial Follow Up Reason Comments Appointment Reason Comments Urinary Retention UDS Specialty Diagnoses / Procedures Referred By Contac t Referred To Contact [facility] Diagnoses Urine retention Procedures URODYNAMICS FERNANDO POST-VOIDING RESIDUAL URINE&/BLADDER CAP Natalia King PA-C [address] [place] [address] [facility] [address] [place] [address] Referral ID Status Reason Start Date Expiration Date V isits Requested Visits Authorized [id number] Closed Auto-Generate d Referral 02/25/2024 02/24/2025 1 1 Reason Comments Cystoscopy-1 Trus Procedure Reason Comments Nurse Visit Rocha Catheter Change Reason Comments Results Reason Comments Post-Op Visit Reason Comments Benign Prostatic Hypertrophy (unrecognized sect ion and content) No Status Records FoundNo Status Records FoundNo Status Records FoundNo Status Records FoundNo Status Records Found INFORMATION SOURCE (unrecogn ized section and content) DATE CREATED AUTHOR 04/08/2024 [facility] (ID) DATE CREATED AUTHOR AUTHOR'S ORGANIZ ATION 09/26/2024 [facility] DATE CREATED AUTHOR AUTHOR'S ORGANIZ ATION 10/03/2024 [facility] DATE CREATED AUTHOR AUTHOR'S ORGANIZ ATION 02/18/2025 [facility] DATE CREATED AUTHOR AUTHOR'S ORGANIZ ATION 05/21/2025 [facility] FOR RECORDS PERTAINING TO PATIENTS WHO ARE [...] BE BASED ON THE PRIMARY CLINICAL RECORDS. [employer] [facility]. provides no warranty or guarantee of the accuracy or completeness of information in this document.
--- NOTE | 2025-05-24 06:09 | PRE.ANES_ITS ---
ASA Classification* ASA Classification ASA Classification: 3 Assessment & Plan Anesthesia* Anesthesia Assessment Anesthesia Assessment: Discussed sedation and/or anesthesia options, risks, benefits, and alternatives with patient/parents/legal guardian/POA. Questions invited. The patient/parents/legal guardian/POA seems to understand and agrees to proceed with anesthesia plan. Reviewed the physical assessment, medical history, allergy history and patient home medications list prior to surgery/procedure/anesthetic and documented any changes. Performed airway and anesthesia risk assessments. Anesthesia Type Anesthesia Type: MAC Anesthesia Focused Assessment* Airway Assessment Mouth opens: >3 cm Mallampati Score: II Labs Anesthesia Preop lab: CBC WBC 6.9 K/mm3 (4.4-11.0) 03/16/25 10:37 03/16/25 RBC 3.95 M/mm3 (4.6-6.2) L 03/16/25 10:03/16/25 Hgb 13.5 g/dL (13.0-16.5) 03/16/25 10:37 03/16/25 Hct 41.8 % (40-54) 03/16/25 10:37 03/16/25 Plt Count 236 K/mm3 (150-450) 03/16/25 10:37 03/16/25 CHEMISTRY Potassium 4.5 mmol/L (3.3-5.1) 03/16/25 10:37 03/16/25 Sodium 141 mmol/L (133-145) 03/16/25 10:37 03/16/25 Magnesium 2.4 mg/dL (1.6-2.6) 12/03/23 19:44 12/03/23 Phosphorus 1.3 mg/dL (2.5-4.9) L 12/08/23 04:00 12/08/23 BUN 13 mg/dL (4-19) 03/16/25 10:37 03/16/25 Creatinine 0.92 mg/dL (0.70-1.20) 03/16/25 10:37 03/16/25 Glucose 92 mg/dL (70-99) 03/16/25 10:37 03/16/25 POC Glucose 113 mg/dL (74-106) H 12/04/23 11:21 12/04/23 TSH 1.240 uIU/mL (0.300-4.200) 01/26/25 14:38 01/12 03/07 COAG PT 15.8 SECONDS (11.7-14.9) H 05/19/21 05:20 08/0 04/03 Pre-Assessment Diagnosis/Proposed Procedure Planned Operative Procedure(s): COLONOSCOPY Anesthesia History Anesthesia History - building associate: Anesthesia History - building associate Hx Hospitalization Yes: Nov-Nov, 05/19/25 08:41 ACUTE KIDNEY FAILURE, BLEEDING ULCER Any Problems With Anesthesia No 05/19/25 08:41 Cholinesterase deficiency No 05/19/25 08:41 You/Your Family Experience No 05/19/25 08:41 fever (hyperthermia) with Relationship Recent Exposure to Contagious No 01/04/25 05:53 Disease Does patient have nerve No 05/19/25 08:41 stimulator Patient instructed to have device shut off --Does patient have Pacemaker or ICD? When Was Last Pacemaker Check QUESTION #4 FULL TEXT: You/Your Family Experience fever (hyperthermia) with Anesthesia Last Oral Intake Last Oral intake: Last Oral Intake NPO since Meds taken in AM with sips of water? Meds patient instructed to take am of surgery PONV PONV - building associate: PONV - building associate Female No 05/19/25 08:41 HX of Motion Sickness No 05/19/25 08:41 HX of N/V After Surgery No 05/19/25 08:41 Non-Smoker Yes 05/19/25 08:41 Duration of Surgery greater No 05/19/25 08:41 than 60 minutes Number of Risk Factors 1 05/19/25 08:41 PONV Score Low Risk 05/19/25 08:41 Height & Weight Height & Weight: Anesthesia: Height & Weight Height 6 ft 04/20/25 11:48 Respiratory Assessment Respiratory Assessment - building associate: Respiratory Tract Infection Hx - building associate Hx Respiratory Tract Infection No 05/19/25 08:41 STOP Sleep Apnea STOP Sleep Apnea - building associate: STOP Sleep Apnea - building associate Hx Hypertension Yes: CONTROLLED ON MED 05/19/25 08:41 Hx Sleep Apnea Yes: ASV MACHINE 05/19/25 08:41 CPAP No 05/19/25 08:41 BIPAP No 05/19/25 08:41 Do you snore loudly (louder No 05/19/25 08:41 than talking or can be heard Do you often feel tired/ No 05/19/25 08:41 fatigued/ sleepy during daytime? Has anyone observed you stop No 05/19/25 08:41 breathing during sleep? STOP Results Positive 05/19/25 08:41 QUESTION #5 FULL TEXT : Do you snore loudly (louder than talking or can be heard through closed doors)? 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 Specify any problems Hx of Preganancy in last 3 N/A 05/19/25 08:41 Months Nurse Filling Out Transfusion VCHRISTIN 05/19/25 08:41 & Questions: Date: 05/19/25 05/19/25 08:41 Time: 08:43 05/19/25 08:41 Patient unable to answer at this time (ie. confused, unrespo /Reproduction History /Reproductive History - building associate: /Reproductive Hx- building associate Hx Now No 05/19/25 08:41 Gestational Age (in weeks): EDC: Hx Hx Para Hx Section SAB No 05/19/25 08:41 Active Medications Active Medications: Current Medications Generic Name Dose Route Start Last Admin Trade Name Freq PRN Reason Stop Dose Admin Lactated Ringer's 1,000 mls @ 15 mls/hr 05/24/25 06:00 IV .Q48H DELISA PFSH Medical History BiPAP (biphasic positive airway pressure) dependence Sleep apnea Bruising Enlarged prostate Anemia Esophageal ulcer with bleeding Drop foot gait Wears glasses Wears dentures Forgetfulness Arthritis High cholesterol Back pain Difficulty chewing History of hiatal hernia History of GI bleed Former smoker On home oxygen therapy COPD (chronic obstructive pulmonary disease) Shortness of breath on exertion Cardiology follow-up encounter History of stress test History of echocardiogram Overdose Severe protein-calorie malnutrition Pneumonia Syncope Depression Neuropathy Community acquired pneumonia GERD (gastroesophageal reflux disease) IBS (irritable bowel syndrome) History of stomach ulcers Arthritis Chronic pain Hyperlipidemia Hypertension Home Medications ?Medication ?Instructions ?Recorded ?Last Taken ?Type multivitamin 1 tab PO DAILY supplement 05/18/25 History glucosamine-chondroitin 250 mg-200 2 tab PO DAILY 11/0505/19/25 History mg tablet (Osteo Bi-Flex) docusate sodium 100 mg capsule 100 mg PO DAILY Constip ation 08/01/23 05/20/25 History (Colace) rollator walker with seat #1 ea 11/05/23 Unknown Rx fluticasone propionate 50 2 spray intranasal DAILY #3 ea 02/14/24 05/23/25 Rx mcg/actuation nasal spray,suspension B-complex with vitamin C 1 cap PO QDAY 11/09/2405/19 History ascorbic acid (vitamin C) 1,000 mg 1 g PO QDAY 5 05/19/25 History capsule atenolol 50 mg tablet 50 mg PO DAILY #90 tabs 02/1105/24/25 04:00 Rx acetaminophen 650 mg 1,950 mg PO QDAY PRN pain Unknown History tablet,extended release (Arthritis Pain Relief (acetaminophen) ER) carboxymethylcellulose sodium 0.5 2 drp ophthalmic (ey e) BID PRN dry 02/26/25 Unknown History % eye drops (Refresh Tears) eye(s) diphenhydramine 25 3 tab PO QHS PRN sedation 05/23/25 19:00 History mg-acetaminophen 500 mg tablet (Acetaminophen PM) albuterol sulfate 90 mcg/actuation See Rx Instructions .Route 03/12/25 Unknown Rx aerosol inhaler .COMPLEX #8.5 grams fluticasone fur. 200 mcg-umeclid 1 ea inhalation QDAY #3 ea 03/12/25 05/24/25 04:00 Rx 62.5 mcg-vilant 25 mcg inhalat.powder (Trelegy Ellipta) rabeprazole 20 mg tablet,delayed 20 mg PO QDAY #90 tab s 03/14/25 05/24/25 04:00 Rx release ipratropium 0.5 mg-albuterol 3 mg 3 ml inhalation COURTNEY Y shortness of 03/16/25 05/23/25 Rx (2.5 mg base)/3 mL nebulization breath or wheezing #18 0 mL soln guaifenesin 1,200 mg tablet, 1,200 mg PO BID #60 tabs 04/20/25 05/23/25 08:00 Rx extended release 12 hr (Mucinex) trazodone 100 mg tablet 100 mg PO QHS #90 TABLETS 05/23/25 19:00 Rx ipratropium bromide 42 mcg (0.06 2 spray intranasal TI D #15 mL 05/11/25 05/23/25 07:00 Rx %) nasal spray pravastatin 40 mg tablet 40 mg PO DAILY #90 tabs 05/0705/23/25 Rx Allergy/AdvReac Type Severity Reaction Status Date / Time aspirin Allergy Severe bleeding Verified 05/24/25 06:03 Family History Mother Myocardial infarction, Onset Age: 49 Depression Father Hypertension CVA (cerebral vascular accident), Onset Age: 49 Sister Thyroid disorder Uncle ulcers Surgical History Hx of colonoscopy History of transurethral resection of prostate (06/03/24) History of bronchoscopy History of esophagogastroduodenoscopy (EGD) Hx of colonoscopy History of thoracic surgery Social History household members: spouse and significant other Smoking Status: Former smoker quit date: 07/14/21 alcohol intake: never substance use type: does not use what type of physical activity do you participate in: other details: yard work, house work Review of Systems (Anesthesia) ROS Narrative System reviewed and no additional complaints, except as documented.
[2025-05-24] MEDS: Lactated Ringers 1,000 ML 15 ML IV (06:18)
--- NOTE | 2025-05-24 06:27 | PCM.HP.STD ---
HPI - General General Date of Admission: 05/24/25 Date of Service: 05/24/25 Chief Complaint: Personal history of polyps HPI Narrative PEDRO ALBRECHT, is a 75 M who presents for repeat colonoscopy and regarding polyp surveillance. COLON 01/04/2025 - Repeat colonoscopy in 3 months for surveillance. - Preparation of the colon was fair. - One 29 mm polyp in the ascending colon, removed with a hot snare. Resected and retrieved. - A single (solitary) ulcer in the cecum and at the ileocecal valve. Biopsied. Treated with argon plasma coagulation (APC). - Diverticulosis in the recto-sigmoid colon, in the sigmoid colon and in the descending colon. - Stool in the sigmoid colon, in the transverse colon, at the hepatic flexure, in the ascending colon and in the cecum. 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 pylori and celiac sprue Esophageal mucosal changes suspicious for short-segment Mayer's esophagus. Biopsied. - Medium-sized hiatal hernia. - Congested and granular mucosa in the pylorus. Biopsied. - Erythematous duodenopathy. Biopsied. There is active localized colitis at least in the right colon (around the polyp and ulcer). This could explain the persistent mildly elevated fecal calprotectin (220). 12/25/2024 Tiny likely cystic foci noted on MRE but incompletely characterized are likely benign IPMN. There is also noted dilation of the CBD to 9 mm which is possibly age-related. Transaminases and bilirubin were normal 11/27/2024. I recommend MRI/MRCP in 6 months to reevaluate CBD and tiny pancreatic lesions. FECAL CALPROTECTIN 11/13/2024 elevated 220 01/15/2024 elevated 207 - seen in office today with his - Denies any diarrhea - Denies any pain - Denies any weight loss - Denies any bleeding - c/o itching every where, denies any itching on head, feet or hands - denies any change in soaps or detergents - itching he reports has been present since in [facility] in 2022 - scheduled to see spool winder next [facility] Medical History BiPAP (biphasic positive airway pressure) dependence Sleep apnea Bruising Enlarged prostate Anemia Esophageal ulcer with bleeding Drop foot gait Wears glasses Wears dentures Forgetfulness Arthritis High cholesterol Back pain Difficulty chewing History of hiatal hernia History of GI bleed Former smoker On home oxygen therapy COPD (chronic obstructive pulmonary disease) Shortness of breath on exertion Cardiology follow-up encounter History of stress test History of echocardiogram Overdose Severe protein-calorie malnutrition Pneumonia Syncope Depression Neuropathy Community acquired pneumonia GERD (gastroesophageal reflux disease) IBS (irritable bowel syndrome) History of stomach ulcers Arthritis Chronic pain Hyperlipidemia Hypertension Home Medications ?Medication ?Instructions ?Recorded ?Last Taken ?Type multivitamin 1 tab PO DAILY supplement 07/01/21 05/18/25 History glucosamine-chondroitin 250 mg-200 2 tab PO DAILY 01/12/23 05/19/25 History mg tablet (Osteo Bi-Flex) docusate sodium 100 mg capsule 100 mg PO DAILY Constipation 08/01/23 05/20/25 History (Colace) rollator walker with seat #1 ea 11/05/23 Unknown Rx fluticasone propionate 50 2 spray intranasal DAILY #3 ea 02/14/24 05/23/25 Rx mcg/actuation nasal spray,suspension B-complex with vitamin C 1 cap PO QDAY 11/09/24 05/19/25 History ascorbic acid (vitamin C) 1,000 mg 1 g PO QDAY 12/10/24 05/19/25 History capsule atenolol 50 mg tablet 50 mg PO DAILY #90 tabs 02/23/25 05/24/25 04:00 Rx acetaminophen 650 mg 1,950 mg PO QDAY PRN pain 02/26/25 Unknown History tablet,extended release (Arthritis Pain Relief (acetaminophen) ER) carboxymethylcellulose sodium 0.5 2 drp ophthalmic (eye) BID PRN dry 02/26/25 Unknown History % eye drops (Refresh Tears) eye(s) diphenhydramine 25 3 tab PO QHS PRN sedation 02/26/25 05/23/25 19:00 History mg-acetaminophen 500 mg tablet (Acetaminophen PM) albuterol sulfate 90 mcg/actuation See Rx Instructions .Route 03/12/25 Unknown Rx aerosol inhaler .COMPLEX #8.5 grams fluticasone fur. 200 mcg-umeclid 1 ea inhalation QDAY #3 ea 03/12/25 05/24/25 04:00 Rx 62.5 mcg-vilant 25 mcg inhalat.powder (Trelegy Ellipta) rabeprazole 20 mg tablet,delayed 20 mg PO QDAY #90 tabs 03/14/25 05/24/25 04:00 Rx release ipratropium 0.5 mg-albuterol 3 mg 3 ml inhalation DAILY shortness of 03/16/25 05/23/25 Rx (2.5 mg base)/3 mL nebulization breath or wheezing #180 mL soln guaifenesin 1,200 mg tablet, 1,200 mg PO BID #60 tabs 04/20/25 05/23/25 08:00 Rx extended release 12 hr (Mucinex) trazodone 100 mg tablet 100 mg PO QHS #90 TABLETS 04/20/25 05/23/25 19:00 Rx ipratropium bromide 42 mcg (0.06 2 spray intranasal TID #15 mL 05/11/25 05/23/25 07:00 Rx %) nasal spray pravastatin 40 mg tablet 40 mg PO DAILY #90 tabs 05/20/25 05/23/25 Rx Allergy/AdvReac Type Severity Reaction Status Date / Time aspirin Allergy Severe bleeding Verified 05/24/25 06:03 Family History Mother Myocardial infarction, Onset Age: 49 Depression Father Hypertension CVA (cerebral vascular accident), Onset Age: 49 Sister Thyroid disorder Uncle ulcers Surgical History Hx of colonoscopy History of transurethral resection of prostate (06/03/24) History of bronchoscopy History of esophagogastroduodenoscopy (EGD) Hx of colonoscopy History of thoracic surgery Social History household members: spouse and significant other Smoking Status: Former smoker quit date: 07/14/21 alcohol intake: never substance use type: does not use what type of physical activity do you participate in: other details: yard work, house work ROS Constitutional Constitutional: Denies fatigue, fever(s), poor appetite, weight gain or weight loss Gastrointestinal Gastrointestinal: Denies belching, bloating, change in bowel habits, change in stool character, chewing difficulty, coffee ground emesis, constipation, cramping, diarrhea, dyspepsia, dysphagia, early satiety, excessive flatus, fecal incontinence, heartburn, hematemesis, hematochezia, hemorrhoids, loose stools, melena, nausea, odynophagia, rectal bleeding, tenesmus, vomiting or weight changes Vital Signs Vital Signs Vital Signs: 05/24/25 06:07 05/24/25 06:10 Temperature 97.6 F L Temperature Source Temporal Pulse Rate 56 L Respiratory Rate 16 Respiratory Pattern Normal Blood Pressure 126/68 H Blood Pressure Mean 87 Blood Pressure Source Monitor Blood Pressure Position Semi-Fowlers Blood Pressure Location Left Arm Pulse Ox 100 Oxygen Delivery Method Nasal Cannula Oxygen Flow Rate (L/min) 3 Weight Weight: 190 lb 12.8 oz Body Mass Index (BMI) 25.9 Physical Exam Const alert, oriented x3, no apparent distress and healthy appearing General Appearance: cooperative GI normal to inspection, nondistended, normoactive bowel sounds, soft to palpation, non-tender and non-distended Percussion: normal to percussion Rectal Exam: deferred Assessment & Plan Assessment/Plan (1) Personal history of colonic polyps: (2) Mayer esophagus: QUALIFIERS: Mayer's esophagus type: without dysplasia Qualified Code(s): K22.70 - Mayer's esophagus without dysplasia (3) Dilated cbd, acquired: PLAN: Assessment and Plan Assessment and Plan (1) Macrocytic anemia: Status: Acute (2) Crohn's disease: Status: Acute Qualifiers: Gastrointestinal tract location: small intestine Digestive disease complication type: without complication Qualified Code(s): K50.00 - Crohn's disease of small intestine without complications (3) Mayer esophagus: Status: Acute Qualifiers: Mayer's esophagus type: without dysplasia Qualified Code(s): K22.70 - Mayer's esophagus without dysplasia (4) Dilated cbd, acquired: Status: Acute (5) Lesion of pancreas: Status: Acute Orders: Orders CBC W/Diff, Automated 01/26/25 D53.9 - Nutritional anemia, unspecified, D64.9 - Anemia, unspecified, K50.90 - Crohn's disease, unspecified, without complications Liver Profile 01/26/25 D53.9 - Nutritional anemia, unspecified, K50.90 - Crohn's disease, unspecified, without complications Basic Metabolic Profile (BMP) 01/26/25 D53.9 - Nutritional anemia, unspecified, K50.90 - Crohn's disease, unspecified, without complications Thyroid Stim Hormone (TSH) 01/26/25 D53.9 - Nutritional anemia, unspecified, K50.90 - Crohn's disease, unspecified, without complications Vitamin B12 01/26/25 D53.9 - Nutritional anemia, unspecified, K50.90 - Crohn's disease, unspecified, without complications Iron+Iron Binding Capacity 01/26/25 D53.9 - Nutritional anemia, unspecified, K50.90 - Crohn's disease, unspecified, without complications FOLATES,SERUM (FOLIC ACID) 01/26/25 D53.9 - Nutritional anemia, unspecified, K50.90 - Crohn's disease, unspecified, without complications Retic Panel Count 01/26/25 D53.9 - Nutritional anemia, unspecified, K50.90 - Crohn's disease, unspecified, without complications CRP 01/26/25 D53.9 - Nutritional anemia, unspecified, K50.90 - Crohn's disease, unspecified, without complications MRI Abd WITH and W/O Contrast 06/16/25 K22.70 - Mayer's esophagus without dysplasia, K50.00 - Crohn's disease of small intestine without complications, K83.8 - Other specified diseases of biliary tract, K86.9 - Disease of pancreas, unspecified Basic Metabolic Profile (BMP) 6 Weeks K22.70 - Mayer's esophagus without dysplasia, K50.00 - Crohn's disease of small intestine without complications, K83.8 - Other specified diseases of biliary tract, K86.9 - Disease of pancreas, unspecified Medications: New mesalamine (Lialda) 4.8 grams (4 x 1.2 gram) PO QDAY 360 tabs 2RF Crohn's pantoprazole take once daily 30 minutes before first meal 40 mg PO QDAY 90 tabs 3RF Discontinued pantoprazole Discontinued Reason: Order Changed 40 mg PO BID 60 tabs 9RF dapsone Discontinued Reason: Pt no longer taking 100 mg PO QDAY 30 tabs 2RF Plan 74-year-old male with prior history of arthritis and COPD following up with resolution of diarrhea, iron deficiency anemia, colonoscopy revealing 29 mm sessile tubular adenoma with associated cryptitis, solitary ulcer at IC valve and cecum (treated with APC), no dysplasia. Capsule endoscopy revealing focal small bowel ulcerations. Positive Bobbi (96), negative pANCA. MRI shows no clear evidence of IBD; mild CBD dilation, pancreatic cystic lesion (9 mm). Labs revealing worsening macrocytosis (MCV 110), anemia (Hgb 11.3) down from 13.1 on 10/20/2024, mild eosinophilia (7%), normal repeat TTG IgA, IgG and total IgA. With the absence of NSAID use in the past year these findings are suspicious for early Crohn's disease, particularly involving the ileocecal region with scattered small bowel involvement. I recommend starting mesalamine daily and repeating colonoscopy in 3 months. Tiny likely cystic foci noted on MRE but incompletely characterized are likely benign IPMN. There is also noted dilation of the CBD to 9 mm which is possibly age-related. Transaminases and bilirubin were normal 11/27/2024. I recommend TSH, B12, Fe, folate, liver panel and retic count to check thyroid related macrocytosis and he will complete labs today. He is no longer taking Dapsone and continuing to experience pruritus. He is scheduled to see spool winder later this month. Mesalamine - will monitor renal function closely (4-6 weeks after starting) Colonoscopy in 3 months with 1.5d Miralax prep Calprotectin in 3 months I recommend MRI/MRCP in 6 months to reevaluate CBD and tiny pancreatic lesions Continue PPI indefinitely for Mayer's, decrease to once daily and monitor symptoms Patient Instructions: Decrease PPI to once daily and monitor symptoms Continue to avoid use of nonsteroidal medications Complete labs today Will treat with mesalamine and monitor renal function closely Colonoscopy in 3 months with 1.5-day MiraLAX prep Repeat fecal calprotectin in 3 months MRI/MRCP in 6 months BMP in 6 weeks Repeat EGD in 3 years
--- NOTE | 2025-05-24 06:30 | COLBX_PTH ---
PATIENT: PEDRO ALBRECHT LOC: EN U#:[id number] AGE/SX: 75/M ROOM: RE05/24/[address]: Dr. Ranjan Muhammad DO : 1950 BED: DIS: 05/24/2025 SPEC #: [id number] RECD: 05/24/25 09:44 STATUS: MARCELINO REGarrison #: [id number] [place]ASIA: 05/24/25 06:[address]: Ranjan Muhammad DEPT: SURGICAL PATHOLOGY RECD BY: Oneal Parrish ENTERED: 05/24/25 11:52 SP TYPE: COLON BX SHELLIE DR: Dr. Miguel Stewart DO Tissues: A - COLON BIOPSY B - SPLENIC FLEXURE Procedures: Surgery Specimen Level IV HEADER OPERATION: Colonoscopy with biopsy PRE-OP DIAGNOSIS: Personal history of colonic polyps, Car's esophagus, dilated cbd, acquired TISSUE SUBMITTED: A- Hepatic flexure polyp biopsy, B- Splenic flexure polyp biopsy MICROSCOPIC DIAGNOSIS A. Hepatic flexure, colon, polyp, biopsy: - Tubular adenoma. B. Splenic flexure, colon, polyp, biopsy: - Tubular adenoma. MICROSCOPIC DESCRIPTION Slides are reviewed. GROSS DESCRIPTION A. Received in fixative is one container labeled with the patient's name and designated Hepatic flexure polyp biopsy. The specimen consists of two irregular fragments of light james soft tissue, each measuring 0.4 cm. The specimen is totally submitted in one cassette. B. Received in fixative is one container labeled with the patient's name and designated Splenic flexure polyp biopsy. The specimen consists of one irregular fragment of light james soft tissue that measures 0.6 cm. The specimen is totally submitted in one cassette. [place] 05/24/2025 CPT:08662g6
--- NOTE | 2025-05-24 07:03 | OP.PROVAT_ITS ---
05/24/2025 Miguel Stewart Re : Colonoscopy procedure for Eligio Mccabe Dear Dr. Stewart This procedure was performed on Saturday, May 24, 2025. My impressions and recommendations are as follows: Impressions : - Two 10 mm polyps at the splenic flexure and at the hepatic flexure, removed with a cold biopsy forceps. Resected and retrieved. - Diverticulosis in the recto-sigmoid colon and in the sigmoid colon. - The examination was otherwise normal on direct and retroflexion views. Recommendations : - Discharge patient to home. - Resume previous diet. - Continue present medications. - Repeat colonoscopy in 3 years for surveillance. My findings are described in the full procedure note, which is enclosed. If I can be of further assistance, please feel free to contact me at . Sincerely, Ranjan Muhammad, 05/24/2025 7:02:07 AM This report has been signed electronically.
--- NOTE | 2025-05-24 07:03 | OP.COLON_ITS ---
Patient Name: Eligio Mccabe Procedure Date: 05/24/2025 6:31 AM Date of : 1950 Age: 75 Procedure: Colonoscopy Indications: High risk colon cancer surveillance: Personal history of colonic polyps Providers: Ranjan Muhammad DO Referring MD: Miguel Stewart Medicines: Monitored Anesthesia Care Patient Profile: This is a 75 year old male. Refer to note in patient chart for documentation of history and physical. Last Colonoscopy: 1 year ago. Complications: No immediate complications. Procedure: Pre-Anesthesia Assessment: - Prior to the procedure, a History and Physical was performed, and patient medications and allergies were reviewed. The patient is competent. The risks and benefits of the procedure and the sedation options and risks were discussed with the patient. All questions were answered and informed consent was obtained. Patient identification and proposed procedure were verified by the physician in the pre-procedure area. Mental Status Examination: alert and oriented. Airway Examination: normal oropharyngeal airway and neck mobility. Respiratory Examination: clear to auscultation. CV Examination: normal. Prophylactic Antibiotics: The patient does not require prophylactic antibiotics. Prior Anticoagulants: The patient has taken no anticoagulant or antiplatelet agents except for NSAID medication. ASA Grade Assessment: II - A patient with mild systemic disease. After reviewing the risks and benefits, the patient was deemed in satisfactory condition to undergo the procedure. The anesthesia plan was to use monitored anesthesia care (MAC). Immediately prior to administration of medications, the patient was re-assessed for adequacy to receive sedatives. The heart rate, respiratory rate, oxygen saturations, blood pressure, adequacy of pulmonary ventilation, and response to care were monitored throughout the procedure. The physical status of the patient was re-assessed after the procedure. After I obtained informed consent, the scope was passed under direct vision. Throughout the procedure, the patient's blood pressure, pulse, and oxygen saturations were monitored continuously. The Colonoscope was introduced through the anus and advanced to the cecum, identified by appendiceal orifice and ileocecal valve. The colonoscopy was performed without difficulty. The patient tolerated the procedure well. The quality of the bowel preparation was adequate. The ileocecal valve, appendiceal orifice, and rectum were photographed. The ileocecal valve, appendiceal orifice, and rectum were photographed. Scope In: 6:44:41 AM Scope Withdrawal Time 0 hours 7 minutes 49 seconds Scope Out: 6:57:13 AM Total Procedure Duration Time 0 hours 12 minutes 32 seconds Findings: The perianal and digital rectal examinations were normal. Two sessile polyps were found in the splenic flexure and hepatic flexure. The polyps were 10 mm in size. These polyps were removed with a cold biopsy forceps. Resection and retrieval were complete. Verification of patient identification for the specimen was done. Estimated blood loss was minimal. A few small and large-mouthed diverticula were found in the recto-sigmoid colon and sigmoid colon. The exam was otherwise without abnormality on direct and retroflexion views. Impression: - Two 10 mm polyps at the splenic flexure and at the hepatic flexure, removed with a cold biopsy forceps. Resected and retrieved. - Diverticulosis in the recto-sigmoid colon and in the sigmoid colon. - The examination was otherwise normal on direct and retroflexion views. Recommendation: - Discharge patient to home. - Resume previous diet. - Continue present medications. - Repeat colonoscopy in 3 years for surveillance. Procedure Code(s): --- Professional --- 52378, Colonoscopy, flexible; with biopsy, single or multiple CPT copyright 2021 [employer]. All rights reserved. The codes documented in this report are preliminary and upon professional fee coder review may be revised to meet current compliance requirements. Ranjan Muhammad DO 05/24/2025 7:02:07 AM This report has been signed electronically. Number of Addenda: 0 Note Initiated On: 05/24/2025 6:31 AM
--- NOTE | 2025-05-24 07:05 | PCM.POST.ANE ---
Anesthesia: Postop Eval I Current Vital Signs Temperature: 97.2 F Pulse Rate: 52 Blood Pressure: 108/58 Respiratory Rate: 16 Pulse Ox: 100 Oxygen Delivery Method: Nasal Cannula Oxygen Flow Rate (L/min): 3 Assessment Airway patent: Yes Spontaneous unlabored respirations: Yes Mental status: Awake and Calm nausea: No Vomiting: No Anesthesia Complication: No Fluid Hydration Crystalloid volume administer (ml): 400 Total IV fluid infused: 400 Progress Note Anesthesia document: Postop Eval 1 completed: Yes
--- NOTE | 2025-05-24 08:24 | PCM.POSTANE2 ---
Anesthesia Postop Eval I Sum Postop Eval Completion status Anesthesia document: Postop Eval 1 completed: Yes Anesthesia Postop Eval I Summary Anesthesia Postop Eval I Summary: Anesthesia Postop Eval I: Assessment Summary Airway patent Yes 05/24/25 07:05 [email or web address] Spontaneous unlabored Yes 05/24/25 07:05 [email or web address] respirations Mental status Awake,Calm 05/24/25 07:05 [email or web address] nausea No 05/24/25 07:05 [email or web address] Vomiting No 05/24/25 07:05 [email or web address] Anesthesia Postop Eval I: Fluid Summary Crystalloid volume administer 400 05/24/25 07:05 [email or web address] (ml) Colloids volume administered ( ml) Blood Product volume administered (ml) Total IV fluid infused 400 05/24/25 07:05 [email or web address] Anesthesia Postop Eval I: Summary Notes Anesthesia Complication No 05/24/25 07:05 [email or web address] Anesthesia Complication Comment: Post-operative progress note Anesthesia: Postop Eval II Evaluation Mental status: Awake Pain Level: 0 nausea: No Vomiting: No
== END 2025-05-24 07:47 | disposition home or self-care (01) ==
LOC: EN 05:32 → AC 05:33
PROVIDERS: PCP Family Medicine; Referring Provider Family Medicine; Visit Provider Internal Medicine Gastroenterology
PROC: 0DJD8ZZ Inspection of Lower Intestinal Tract, Via Natural or Artificial Opening Endoscopic (ICD-10-PCS; CPT 45378; principal; 2025-05-24 06:25)
DX: Z12.11 Encounter for screening for malignant neoplasm of colon (principal); K50.00 Crohn's disease of small intestine without complications; J44.9 Chronic obstructive pulmonary disease, unspecified; D12.3 Benign neoplasm of transverse colon; K22.70 Barrett's esophagus without dysplasia; K57.30 Diverticulosis of large intestine without perforation or abscess without bleeding; I10 Essential (primary) hypertension; E78.00 Pure hypercholesterolemia, unspecified; D53.9 Nutritional anemia, unspecified; K44.9 Diaphragmatic hernia without obstruction or gangrene; Z79.899 Other long term (current) drug therapy; Z87.891 Personal history of nicotine dependence; Z86.0100 Personal history of colon polyps, unspecified
CPT/HCPCS: 45380; 88305; J2405

== ENCOUNTER → 2025-06-02 | Outpatient (CLI) | payer MEDICARE, MEDICAID, SELFPAY | END | disposition home or self-care (01) | LOC: LAB 12:27 → LABSPEC 12:30 | PROVIDERS: PCP Family Medicine; Referring Provider Nurse Practitioner Family; Visit Provider Nurse Practitioner Family | DX: J47.1 Bronchiectasis with (acute) exacerbation (principal) | CPT/HCPCS: 87070; 87077; 87186; 87205 ==

== ENCOUNTER → 2025-06-07 | Outpatient (CLI) | payer MEDICARE, MEDICAID, SELFPAY ==
--- NOTE | 2025-06-07 12:33 | CT_ITS ---
PROCEDURE: CHEST WITHOUT CONTRAST 06/07/2025 REASON FOR EXAM: LUNG NOCULES IN SMOKER TECHNIQUE: Chest CT without contrast. Coronal and Sagittal reconstruction series were provided. One or more dose reduction techniques were used (e.g., Automated exposure control, adjustment of the mA and/or kV according to patient size, use of iterative reconstruction technique RADIATION DOSE SUMMARY: CTDlvol: 11.24 mGy DLP: 424.08 mGycm COMPARISON: Prior study dated February 22, 2025. FINDINGS: Hardware: None Lymph nodes: Small benign-appearing bilateral axillary and mediastinal lymphadenopathy. No suspicious lymph node is seen. Heart and Vasculature: The heart is not enlarged. Atherosclerotic calcifications of the thoracic aorta. Minimal anterior pericardial thickening suggestive of a tiny pericardial effusion. Thoracic aorta and pulmonary arteries have normal contours; noncontrast technique limits evaluation. Coronary Artery Calcifications: Present Lungs and Airways: Since prior study, there is evidence of bronchiectasis and scarring in the left lower lobe. There is evidence of focal bandlike atelectasis in the posterior aspect of the lingular segment of the left upper lobe with thickening of the left major fissure. Mild scarring at the right lung base. Pleura: No pleural effusion. Upper Abdomen: Hyperplasia of the left adrenal gland. Bones: Degenerative changes of the thoracic spine. CT/Chest without Contrast IMPRESSION: Coronary artery calcification (CAC) is is present Progressive scarring in the left lower lobe were bronchiectasis. Bandlike atelectasis and/or scarring in the posterior aspect of the lingula seg ment of the left upper lobe with thickening of the left major fissure. Reading Location: [facility]
== END | disposition home or self-care (01) ==
LOC: CT 12:33
PROVIDERS: PCP Family Medicine; Referring Provider Nurse Practitioner Acute Care; Visit Provider Nurse Practitioner Acute Care
DX: R91.8 Other nonspecific abnormal finding of lung field (principal); F17.200 Nicotine dependence, unspecified, uncomplicated
CPT/HCPCS: 71250

== ENCOUNTER → 2025-06-18 | Outpatient (CLI) | payer MEDICARE, MEDICAID, SELFPAY ==
[2025-06-22 07:07] LABS: Calprotectin, Stool 325 ug/g (0-120)
== END | disposition home or self-care (01) ==
LOC: LABSPEC 14:04
PROVIDERS: PCP Family Medicine; Referring Provider Nurse Practitioner Acute Care; Visit Provider Nurse Practitioner Family
DX: R19.5 Other fecal abnormalities (principal); J47.1 Bronchiectasis with (acute) exacerbation
CPT/HCPCS: 83993; 87070; 87077; 87186; 87205

== ENCOUNTER 2025-07-14 12:46 | Outpatient (CLI) | payer MEDICARE, MEDICAID, SELFPAY ==
--- NOTE | 2025-07-14 12:53 | RAD_ITS ---
PROCEDURE: ANKLE MIN 3 VIEWS 07/14/2025 REASON FOR EXAM: SWOLLEN ANKLE TECHNIQUE: Procedure Code: RADANK Modality: DX Procedure: ANKLE MIN 3 VIEWS Laterality: Left COMPARISON: None FINDINGS: Bones: Decreased bone mineralization. Joints: Normal alignment. Mortise appears intact. No effusion. Soft tissues: Mild soft tissue swelling. RAD/Ankle min 3 Views IMPRESSION: Mild soft tissue swelling. No fracture. Reading Location: [id number]
== END 2025-07-14 23:59 | disposition home or self-care (01) ==
LOC: MTRAD 12:51
PROVIDERS: PCP Family Medicine; Referring Provider Family Medicine; Visit Provider Family Medicine
DX: M25.472 Effusion, left ankle (principal); M25.572 Pain in left ankle and joints of left foot
CPT/HCPCS: 73610

== ENCOUNTER → 2025-08-11 | Outpatient (CLI) | payer MEDICARE, MEDICAID, SELFPAY | END | disposition home or self-care (01) | LOC: MTLAB 13:40 | PROVIDERS: PCP Family Medicine; Referring Provider Family Medicine; Visit Provider Family Medicine | DX: J47.1 Bronchiectasis with (acute) exacerbation (principal) | CPT/HCPCS: 87070; 87077; 87186; 87205 ==

== ENCOUNTER → 2025-09-17 | Outpatient (CLI) | payer MEDICARE, MEDICAID, SELFPAY | END | disposition home or self-care (01) | LOC: MTLAB 13:06 | PROVIDERS: PCP Family Medicine; Referring Provider Nurse Practitioner Family; Visit Provider Nurse Practitioner Family | DX: J47.1 Bronchiectasis with (acute) exacerbation (principal) | CPT/HCPCS: 87070; 87077; 87186; 87205 ==